=== PATIENT | female | born 2000 | race Caucasian/White ===

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

== ENCOUNTER → 2023-04-25 | Outpatient (CLI) | payer OTHER, SELFPAY ==
[2023-04-25 10:22] LABS: Absolute Lymphocyte Count 1.25 X10^3/uL (0.83-4.51); Absolute Neutrophil Count 5.2 X10^3/uL (2.0-7.7); Basophil# 0.03 X10^3/uL; Basophil% 0.4 % (0-1); Hemoglobin 13.5 g/dL (12.0-15.0); Lymphocyte # 1.25 X10^3/ul (0.83-4.51); Mean Corp Hgb Conc 32.9 g/dL (32-36); Mean Corpuscular Hgb 29.2 pg (27.0-32.0); Mean Corpuscular Volume 88.6 fL (81-99); Monocyte# 0.51 X10^3/uL; Monocyte% 7.3 % (0-10); NRBC Flagged by Analyzer 0 % (0-5); Neutrophil # 5.16 X10^3/uL (2.7-7.7); Neutrophil % 74.2 % (47-70); Platelet Count 212 K/mm3 (150-450); RBC Distribution Width CV 12.3 % (11.6-14.6); RBC Distribution Width SD 39.5 fl (35.1-43.9); Red Blood Count 4.63 M/mm3 (4.2-5.4)
[2023-04-25 10:24] LABS: Erythrocyte Sedimentation Rate < 1 mm/hr (0-30)
[2023-04-25 10:38] LABS: Vitamin B12 929 pg/mL (211-911)
[2023-04-25 12:06] LABS: Amylase 70 U/L (25-115); CRP < 2.90 mg/L (0.0-3.0); Free T3 2.7 pg/mL (2.18-3.98); LDH 152 U/L (84-246); Lipase 33 U/L (13-75); Thyroid Stim Hormone (TSH) 1.42 uIU/mL (0.358-3.74)
[2023-04-28 13:07] LABS: Anti-Centromere B Ab <0.2 AI (0.0-0.9); Anti-Chromatin <0.2 AI (0.0-0.9); Anti-Jo <0.2 AI (0.0-0.9); Anti-Scleroderma-70 AB <0.2 AI (0.0-0.9); Anti-dsDNA Ab 1 IU/mL (0-9); SJOGREN'S Anti-SS-A test < 0.2 AI (0.0-0.9); SJOGREN'S Anti-SS-B test 0.4 AI (0.0-0.9); Smith Ab <0.2 AI (0.0-0.9)
[2023-04-29 15:08] LABS: Alpha-1-Globulins 0.3 g/dL (0.0-0.4); Alpha-2-Globulins 0.7 g/dL (0.4-1.0); Cytoplasmic Ab (C-ANCA) <1:20 titer (Neg:<1:20); Endomysial Antibody IgA Negative (Negative); Gamma Globulin 0.8 g/dL (0.4-1.8); Gastrin, Serum 433 pg/mL (0-115); Immunoglobulin A 108 mg/dL (87-352); Immunoglobulin E 8 IU/mL (6-495); Immunoglobulin G 742 mg/dL (586-1602); Immunoglobulin M 121 mg/dL (26-217); PROEL- TOTAL PROTEIN 6.6 g/dL (6.0-8.5); Perinuclear Ab (P-ANCA) <1:20 titer (Neg:<1:20); t-Transglutaminase IgA <2 U/mL (0-3)
== END | disposition home or self-care (01) ==
LOC: LAB 09:05
PROVIDERS: PCP Family Medicine; Visit Provider Internal Medicine Gastroenterology
DX: K21.9 Gastro-esophageal reflux disease without esophagitis (principal)
CPT/HCPCS: 36415; 82150; 82607; 82746; 82784; 82785; 82941; 83516; 83615; 83690; 84165; 84443; 84481; 85025; 85652; 86140; 86225; 86235; 86255; 86256; 86334

== ENCOUNTER → 2023-05-07 | Outpatient (CLI) | payer OTHER, SELFPAY ==
--- NOTE | 2023-05-07 11:43 | NM_ITS ---
INDICATION: GERD EXAMINATION: NUCLEAR MEDICINE GASTRIC EMPTYING - NM Gastric Emptying Study (solid, liquid or both) TECHNIQUE: Radiopharmaceutical (solid portion of the exam): 1 mCi of Tc99m Sulfur Colloid in oatmeal solid meal. Oral administration. Imaging: Imaging obtained to 1 hour with anterior and posterior acquisition for geometric mean COMPARISON: None. FINDINGS: Immediate passage of some radionucleotide into bowel is seen at 1 minute. Gastric (solid) emptying time: 32% emptying at 60 minute termination of the exam . No distal esophageal reflux is seen during exam. NM/Gastric Emptying Study IMPRESSION: Limited 32% gastric emptying by 60 minutes. Electronically Signed: Gibran Benjamin MD at 8:12 EDT ,
== END | disposition home or self-care (01) ==
LOC: NM 11:42
PROVIDERS: PCP Family Medicine; Referring Provider Internal Medicine Gastroenterology; Visit Provider Internal Medicine Gastroenterology
DX: K21.9 Gastro-esophageal reflux disease without esophagitis (principal)
CPT/HCPCS: 78264; A9541

== ENCOUNTER 2023-06-09 08:06 | Emergency (ER) | payer OTHER, SELFPAY ==
[2023-06-09 08:07] VITALS: BP 141/96; PULSE 102; RESP 16; TEMP 36.6; O2SAT 100; BMI 21.4
--- NOTE | 2023-06-09 08:31 | EDS_ITS ---
HPI History of Present Illness Chief Complaint: Palpitations Informant: patient Onset/Context/Timing Onset: Today Context: Gradual Onset Timing: Continuous Quality: Fluttering, pressure Location: Chest Worsened by: Activity Relieved by: Nothing Narrative Narrative: Patient presents with palpitations that began today. Patient states she feels a fluttering in her chest. Patient states she also has some pressure in her chest. Patient states this is worse with activity. Patient states she got to work today and took her blood pressure. Patient states it was 160/99 at that time. Patient states her heart rate was up to 140 at that time. Patient admits to some lower extremity swelling last night. Patient states this is better today. Patient states her symptoms are worse with any activity. Patient states nothing makes them better. Patient states her temperature at home this morning was 95.8. [facility] Medical History Constipation Elevated transaminase level Environmental allergies Epilepsy GERD (gastroesophageal reflux disease) Headaches, cluster Liver lesion Narcolepsy POTS (postural orthostatic tachycardia syndrome) Home Medications methylphenidate HCl 18 mg tablet,extended release 24 hr (Concerta) 18 mg PO DAILY 05/09/21 [History Last Taken 06/09/23] propranolol 20 mg tablet 20 mg PO TID 05/09/21 [History Last Taken 06/09/23] pantoprazole 40 mg tablet,delayed release 40 mg PO DAILY #30 tabs 05/22/23 [Rx Last Taken 06/09/23] loratadine 10 mg tablet (Allerclear) 10 mg PO QHS 06/09/23 [History Last Taken 06/08/23] Allergy/AdvReac Type Severity Reaction Status Date / Time cefdinir Allergy Intermediate Swelling Verified 06/09/23 08:07 gluten Allergy Upset Verified 06/09/23 08:07 Stomach latex Allergy Hives Verified 06/09/23 08:07 midazolam HCl [From Versed] Allergy Other Verified 06/09/23 08:07 Penicillins Allergy Hives Verified 06/09/23 08:07 Family History Father Migraine Daughter Migraine Mother Migraine Other Anxiety Asthma Hypertension Surgical History History of tonsillectomy and adenoidectomy Social History Smoking Status: Never smoker alcohol intake: never substance use type: does not use what type of physical activity do you participate in: walking and weight training frequency: 3-4 times per week duration: 30-45 minutes/day ROS ROS ED Constitutional Constitutional ED: Denies chills or fever(s) Eyes Eyes: Denies blurry vision or change in vision ENT ENT ED: Denies rhinorrhea or sore throat Cardiovascular Cardiovascular: Denies chest pain or palpitations Respiratory/Chest Respiratory/Chest: Denies cough or dyspnea Gastrointestinal Gastrointestinal: Denies nausea or vomiting Genitourinary Genitourinary ED: Denies dysuria or hematuria Musculoskeletal Musculoskeletal: Reports back pain and neck pain Integumentary Denies abscess or rash Neurologic Neurologic: Reports headache(s); Denies weakness Allergic/Immunologic Allergic/Immunologic ED: Denies mouth swelling or urticaria EXAM Physical Exam Const Vital Signs: 06/09/23 08:07 06/09/23 08:22 06/09/23 10:52 Temperature 98 F Temperature Source Temporal Pulse Rate 102 H 70 Respiratory Rate 16 18 Respiratory Effort Normal Non-Labored Respiratory Pattern Normal Blood Pressure 141/96 H 107/74 Blood Pressure Mean 111 85 Pulse Ox 100 99 Oxygen Delivery Method Nasal Cannula Room Air Positive well nourished and well developed General Appearance ED: well developed and NAD HEENT Reports moist mucous membranes Neck supple and no JVD Chest Wall inspection of chest normal and palpation of chest normal Resp normal respiratory effort and clear to auscultation bilaterally Cardio regular rate and regular rhythm GI non-tender and non-distended Palpation: soft Extremity Extremity Narrative: There is trace edema of the lower extremities bilaterally. There is no calf tenderness noted. General Extremety ED: Yes edema; Negative for tenderness General Extremity: edema Neuro oriented x3, CN's II-XII intact bilaterally and no sensory deficits noted Sensorium / Orientation: alert Motor Exam: strength 5/5 throughout Psych mental status grossly normal MDM MDM MDM Narrative Medical decision making narrative: Differential diagnosis includes cardiac dysrhythmia, cardiac ischemia, electrolyte abnormality, pneumonia, dehydration, viral infection, and anxiety. Patient has a Wells score of 0. I do not feel this is from a pulmonary embolism. EKG will be obtained to assess for cardiac dysrhythmia and cardiac ischemia. Chest x-ray will be obtained to assess for pneumonia and pneumothorax. CBC will be obtained to assess for leukocytosis and anemia. Basic metabolic profile will be obtained to assess for electrolyte abnormality and renal function. Serum hCG will be obtained to assess for . High- sensitivity troponin will be obtained to assess for cardiac ischemia. Urinalysis will be obtained to assess for urinary tract infection. COVID-19 rapid antigen will be obtained to assess for COVID-19 infection. Influenza A and influenza B antigens will be obtained to assess for influenza infection. Lab Data Attestation: I reviewed the patient's lab results. Lab results narrative: CBC was reviewed and was within normal limits. Basic metabolic profile was reviewed and was within normal limits. High-sensitivity troponin was reviewed and was normal at less than 3. Serum hCG was reviewed and was negative. Urinalysis was reviewed. There is no evidence of urinary tract infection or hematuria. COVID-19 rapid antigen was reviewed and was negative. Influenza A and influenza B antigens were reviewed and were negative. Labs: Laboratory Results - last 24 hr 06/09/23 06/09/23 08:32 09:45 WBC 5.2 RBC 4.82 Hgb 13.9 Hct 43.2 MCV 89.6 MCH 28.8 MCHC 32.2 RDW Std Deviation 38.3 RDW Coeff of Sheryl 11.8 Plt Count 188 MPV 9.9 Immature Gran % (Auto) 0.200 Neut % (Auto) 72.3 H Lymph % (Auto) 22.1 [place] % (Auto) 5.2 Eos % (Auto) 0.0 Baso % (Auto) 0.2 Absolute Neuts (auto) 3.7 Absolute Lymphs (auto) 1.14 Nucleated RBC % 0 Sodium 140 Potassium 3.5 Chloride 107 Carbon Dioxide 29.0 Anion Gap 4 L BUN 9 Creatinine 0.88 Estim Creat Clear Calc 80.65 Est GFR (MDRD) Af Amer 105 Est GFR (MDRD) Non-Af 87 BUN/Creatinine Ratio 10.3 Glucose 89 Calcium 9.3 Troponin I High Sens < 3 L Serum , Qual NEGATIVE Urine Color Straw Urine Clarity Clear Urine pH 8.0 Ur Specific [place] 1.010 Urine Protein Negative Urine Glucose (UA) Normal Urine Ketones Negative Urine Occult Blood Negative Urine Nitrite Negative Urine Bilirubin Negative Urine Urobilinogen Normal Ur Leukocyte Esterase Negative Urine RBC 0 SEEN Urine WBC 0 SEEN Ur Squamous Epith Cells 0-5 SEEN Urine Bacteria 0 SEEN Urine Mucus 0 SEEN Radiography Diagnostic Testing: Clinical Impression(s) from Imaging Studies Chest X-Ray 06/09/23 09:00 IMPRESSION: Normal x-ray examination of the chest. Electronically Signed: Himanshu Leavitt MD at 9:30 EST , PA and lateral chest x-ray was obtained. There are 2 views. On my independent interpretation, lung marquez are clear. There is normal cardiac silhouette. Bony thorax is normal. There is no acute process noted. Radiologist also interpreted the x-ray and agrees. EKG Initial EKG: Attestation: I personally reviewed and interpreted this EKG as follows: Interpretation: Sinus Rhythm (92) and No Acute Injury Pattern Comments: EKG was obtained. On my independent interpretation, it showed a normal sinus rhythm with a rate of 92. SC interval, QRS interval, and QTc intervals were all normal. Ackerly was normal. There are no acute ST or T wave changes. Prior EKG tracings: available for review Prior: Unchanged (04/29/2020) Treatment and Re-Evaluation :: Patient was advised of her findings. Patient is feeling better on reevaluation. Patient had no further episodes of palpitations or tachycardia here in the emergency department. Patient was instructed to follow-up with her primary care physician in 5 to 7 days. Patient was instructed to return if worse in any way. Patient understood and was agreeable with the plan. All questions were answered. Discharge Plan Triage Chief Complaint: Palpitations ED Provider: Anthony Franco Dx/Rx/DC Orders Clinical Impression: Heart palpitations Instructions: ED Palpitations Prescriptions: No Action propranolol 20 mg Tablet 20 mg PO TID methylphenidate HCl [Concerta] 18 mg Tablet Extended Release 24hr 18 mg PO DAILY loratadine [Allerclear] 10 mg tablet 10 mg PO QHS pantoprazole 40 mg tablet,delayed release (DR/EC) 40 mg PO DAILY Qty: 30 2RF Primary Care Provider: Catina Alford Referrals: Catina Alford, DO [Primary Care Provider] - 5-7 Days Disposition Disposition: Home, Self Care
[2023-06-09 08:48] LABS: Absolute Lymphocyte Count 1.14 X10^3/uL (0.83-4.51); Absolute Neutrophil Count 3.7 X10^3/uL (2.0-7.7); Basophil# 0.01 X10^3/uL; Basophil% 0.2 % (0-1); Hematocrit 43.2 % (37-47); Hemoglobin 13.9 g/dL (12.0-15.0); Lymphocyte # 1.14 X10^3/ul (0.83-4.51); Lymphocyte % 22.1 % (19-41); Mean Corp Hgb Conc 32.2 g/dL (32-36); Mean Corpuscular Hgb 28.8 pg (27.0-32.0); Mean Corpuscular Volume 89.6 fL (81-99); Mean Platelet Vol. 9.9 fl (6.2-12.0); Monocyte# 0.27 X10^3/uL; Monocyte% 5.2 % (0-10); NRBC Flagged by Analyzer 0 % (0-5); Neutrophil # 3.74 X10^3/uL (2.7-7.7); Neutrophil % 72.3 % (47-70); Platelet Count 188 K/mm3 (150-450); RBC Distribution Width CV 11.8 % (11.6-14.6); RBC Distribution Width SD 38.3 fl (35.1-43.9); Red Blood Count 4.82 M/mm3 (4.2-5.4); White Blood Count 5.2 K/mm3 (4.4-11.0)
--- NOTE | 2023-06-09 09:00 | RAD_ITS ---
STUDY: X-RAY CHEST REASON FOR EXAM: Female, 22 years old. Palpitations TECHNIQUE: PA and lateral views of the chest. COMPARISON: None. FINDINGS: EKG electrodes are seen. The lungs are clear and expanded. There is no demonstrated pleural abnormality. Normal size heart. Normal mediastinum and ayleen. Normal visualized pulmonary arteries. Normal visualized aortic arch and descending thoracic aorta. Normal visualized thoracic spine. Normal visualized ribs, clavicles, and shoulders. There is no demonstrated abnormality of the visualized soft tissue structures of the upper abdomen. RAD/Chest PA and Lateral IMPRESSION: Normal x-ray examination of the chest. Electronically Signed: Himanshu Leavitt MD at 9:30 EST ,
[2023-06-09 09:14] LABS: Anion Gap 4 (5-15); BUN 9 mg/dL (7-18); BUN/Creat Ratio 10.3 RATIO (10-20); Calcium,Total 9.3 mg/dL (8.5-10.1); Chloride 107 mmol/L (98-107); Creatinine, Serum 0.88 mg/dL (0.55-1.02); EST Glomerular Filtration Rate 87 mL/min (>60); Est Glom Filt Rate - Afr Amer 105 mL/min (>60); Estimated Creatinine Clearance 80.65 ml/min; Glucose 89 mg/dL (74-106); Potassium 3.5 mmol/L (3.5-5.1); Sodium Level 140 mmol/L (136-145); Troponin-I HS < 3 pg/mL (3.0-54.0)
[2023-06-09 09:27] LABS: Internal QC Validated? YES +Cl - CLEAR BKGD; Pregnancy, Serum, hCG Quali. NEGATIVE Negative
[2023-06-09 10:05] LABS: Bacteria 0 SEEN /hpf (None Seen); Mucous, Urine 0 SEEN /hpf (<or=2+); Red Blood Cells-Urine 0 SEEN /hpf (0-5); White Blood Cells 0 SEEN /hpf (0-5)
[2023-06-09 10:16] LABS: Color, Urine Straw (Yellow); Glucose, Dipstick Normal (Normal); Ketone-Dipstick Negative (Negative); Leukocyte Esterase-Dipstick Negative /ul (Negative); Nitrite-Dipstick Negative (Negative); Occult Blood-Urine Negative /ul (Negative); Protein-Dipstick Negative (Negative); Urine Bilirubin Dipstick Negative (Negative); Urine Clarity Clear (Clear); Urine Urobilinogen Normal (Normal)
[2023-06-09 10:21] LABS: Squamous Epithelial Cells - UA 0-5 SEEN /hpf (5-10)
[2023-06-09 10:52] VITALS: BP 107/74; PULSE 70; RESP 18; O2SAT 99
[2023-06-09 12:49] VITALS: BP 102/88; PULSE 83; RESP 18; O2SAT 98
== END 2023-06-09 12:57 | disposition home or self-care (01) ==
PROVIDERS: Emergency Provider Emergency Medicine; PCP Family Medicine; Visit Provider Emergency Medicine
DX: R00.2 Palpitations (principal); R51.9 Headache, unspecified; M54.9 Dorsalgia, unspecified
CPT/HCPCS: 71046; 80048; 81001; 84484; 84703; 85025; 87428; 93005; 99283; J7030

== ENCOUNTER → 2023-08-26 | Outpatient (CLI) | payer OTHER, SELFPAY ==
--- NOTE | 2023-08-26 15:30 | RAD_ITS ---
STUDY: X-RAY - ABDOMEN/PELVIS REASON FOR EXAM: Female, 22 years old. Gastroparesis TECHNIQUE: Single AP view of the abdomen / pelvis. COMPARISON: None. FINDINGS: Normal visualized lung bases. There is an abundance of fecal material throughout the colon. The visualized liver, spleen and kidneys are grossly normal in size and morphology. Normal soft tissue structures. Normal visualized osseous structures. RAD/Abdomen Single View IMPRESSION: Large amount of fecal material seen throughout the colon. Electronically Signed: Himanshu Leavitt MD at 15:44 EST ,
== END | disposition home or self-care (01) ==
PROVIDERS: PCP Family Medicine; Referring Provider Internal Medicine Gastroenterology; Visit Provider Internal Medicine Gastroenterology
DX: K31.84 Gastroparesis (principal)
CPT/HCPCS: 74018

== ENCOUNTER 2023-08-27 19:41 | Emergency (ER) | payer OTHER, SELFPAY ==
[2023-08-27 19:44] VITALS: BP 131/89; PULSE 119; RESP 18; TEMP 37; O2SAT 100; BMI 21.7
[2023-08-27 20:01] LABS: Absolute Lymphocyte Count 1.67 X10^3/uL (0.83-4.51); Absolute Neutrophil Count 6.8 X10^3/uL (2.0-7.7); Basophil# 0.03 X10^3/uL; Basophil% 0.3 % (0-1); Hemoglobin 13.9 g/dL (12.0-15.0); Lymphocyte # 1.67 X10^3/ul (0.83-4.51); Lymphocyte % 18.5 % (19-41); Mean Corp Hgb Conc 33.1 g/dL (32-36); Mean Corpuscular Hgb 28.8 pg (27.0-32.0); Mean Corpuscular Volume 87.1 fL (81-99); Mean Platelet Vol. 9.6 fl (6.2-12.0); Monocyte% 5.5 % (0-10); NRBC Flagged by Analyzer 0 % (0-5); Neutrophil # 6.82 X10^3/uL (2.7-7.7); Neutrophil % 75.5 % (47-70); Platelet Count 205 K/mm3 (150-450); RBC Distribution Width CV 11.8 % (11.6-14.6); RBC Distribution Width SD 37.9 fl (35.1-43.9); Red Blood Count 4.82 M/mm3 (4.2-5.4)
[2023-08-27 20:08] LABS: Internal QC Validated? YES +Cl - CLEAR BKGD; Pregnancy, Serum, hCG Quali. NEGATIVE Negative
[2023-08-27 20:16] LABS: ALB/GLOB Ratio 1.4 RATIO (0.9-2.4); AST(SGOT) 19 U/L (15-37); Alanine Aminotransfer ALT/SGPT 18 U/L (13-56); Alkaline Phosphatase 46 U/L (45-117); Anion Gap 3 (5-15); BUN 9 mg/dL (7-18); BUN/Creat Ratio 12.1 RATIO (10-20); Calcium,Total 8.9 mg/dL (8.5-10.1); Chloride 110 mmol/L (98-107); Creatinine, Serum 0.75 mg/dL (0.55-1.02); EST Glomerular Filtration Rate 104 mL/min (>60); Est Glom Filt Rate - Afr Amer 126 mL/min (>60); Estimated Creatinine Clearance 94.63 ml/min; Globulin 2.9 g/dL (2.2-4.2); Glucose 123 mg/dL (74-106); Potassium 3.1 mmol/L (3.5-5.1); Protein, Total 6.9 g/dL (6.4-8.2); Sodium Level 141 mmol/L (136-145)
[2023-08-27 21:34] LABS: Bacteria 0 SEEN /hpf (None Seen); Mucous, Urine 0 SEEN /hpf (<or=2+); Squamous Epithelial Cells - UA 0 SEEN /hpf (5-10); White Blood Cells 0 SEEN /hpf (0-5)
[2023-08-27 21:49] LABS: Color, Urine Yellow (Yellow); Glucose, Dipstick Normal (Normal); Ketone-Dipstick Negative (Negative); Leukocyte Esterase-Dipstick Negative /ul (Negative); Nitrite-Dipstick Negative (Negative); Occult Blood-Urine 250 /ul (Negative); Protein-Dipstick 15 mg/dl (Negative); Urine Bilirubin Dipstick Negative (Negative); Urine Clarity Clear (Clear); Urine Urobilinogen Normal (Normal)
--- NOTE | 2023-08-27 21:59 | ED.VIS.GI ---
HPI HPI - GI History of Present Illness Chief Complaint: Abd Pain Nausea/Vomiting/Emesis GI Symptom: Positive for Nausea and Vomiting Onset: Today Severity: Mild Narrative Narrative: 22-year-old female past medical history of gastroparesis, seen by Dr. Lawrence, presents with her mother because of right upper quadrant abdominal pain that she has had for the last 1.5 weeks. She states that she had been dealing with the pain and it was very similar to when she was admitted at [facility] with either a bowel obstruction or an ileus. She states that she called Dr. Lawrenec's office, and yesterday had a x-ray performed which may have showed a lot of stool in her colon. She had not been vomiting until tonight where she vomited once, and it was her lunch that she ate 8 hours ago. She denied any blood in her emesis. She states she has been having bowel movements. No prior abdominal surgeries. She is still nauseated. [facility] Medical History Constipation Elevated transaminase level Environmental allergies Epilepsy GERD (gastroesophageal reflux disease) Headaches, cluster Liver lesion Narcolepsy POTS (postural orthostatic tachycardia syndrome) Home Medications methylphenidate HCl 18 mg tablet,extended release 24 hr (Concerta) 18 mg PO DAILY 05/09/21 [History Last Taken 06/09/23] propranolol 20 mg tablet 20 mg PO TID 05/09/21 [History Last Taken 06/09/23] pantoprazole 40 mg tablet,delayed release 40 mg PO DAILY #30 tabs 05/22/23 [Rx Last Taken 06/09/23] loratadine 10 mg tablet (Allerclear) 10 mg PO QHS 06/09/23 [History Last Taken 06/08/23] dicyclomine 20 mg tablet 20 mg PO BID #20 tabs 08/27/23 [Rx Last Taken Unknown] linaclotide 145 mcg capsule (Linzess) 145 mcg PO DAILY #30 caps 08/27/23 [Rx Last Taken Unknown] metoclopramide HCl 5 mg tablet (Reglan) 5 mg PO DAILY PRN nausea and vomiting #10 tabs 08/27/23 [Rx Last Taken Unknown] Allergy/AdvReac Type Severity Reaction Status Date / Time cefdinir Allergy Intermediate Swelling Verified 08/27/23 19:42 gluten Allergy Upset Verified 08/27/23 19:42 Stomach latex Allergy Hives Verified 08/27/23 19:42 midazolam HCl [From Versed] Allergy Other Verified 08/27/23 19:42 Penicillins Allergy Hives Verified 08/27/23 19:42 Family History Father Migraine Daughter Migraine Mother Migraine Other Anxiety Asthma Hypertension Surgical History History of tonsillectomy and adenoidectomy Social History Smoking Status: Never smoker alcohol intake: never substance use type: does not use what type of physical activity do you participate in: walking and weight training frequency: 3-4 times per week duration: 30-45 minutes/day ROS ROS ED ROS Narrative Constitutional: No fever, no chills. HEENT: No sore throat. No neck pain. No loss of vision. No rhinorrhea. Cardiovascular: No chest pain. No palpitations. No pedal edema. Respiratory: No cough, no shortness of breath. Abdominal: Right upper quadrant abdominal pain. Positive nausea and 1 episode of vomiting, nonbloody. Regular bowel movements, no diarrhea. Genitourinary: No dysuria. No hematuria. Musculoskeletal: No myalgias. No arthralgias. Neurologic: No headaches. No dizziness. No lightheadedness. Skin: No rash. No change in color. Psychiatric: No depression. No anxiety. EXAM Physical Exam Narrative Exam Narrative: Afebrile. Vital signs noted. HEENT: Normocephalic. Atraumatic. PERRL, EOMI. Neck soft and supple. No point tenderness or step off. Cardiovascular: Regular rate and rhythm. No murmurs, rubs, or gallops appreciated. Respiratory: No tachypnea. Lungs clear to auscultation bilaterally. Gastrointestinal: Abdomen soft, mild tenderness palpation right upper quadrant, negative Slaughter sign. With normoactive bowel sounds. No rebound or guarding. Neurological: Awake. Alert. Nonfocal, nonlateralizing. Skin: No rash. Normal color. No pallor. Musculoskeletal: No pedal edema. Full range of motion extremities. Const Vital Signs: 08/27/23 19:44 08/27/23 23:40 Temperature 98.6 F Temperature Source Temporal Pulse Rate 119 H 79 Respiratory Rate 18 Blood Pressure 131/89 H 101/62 Blood Pressure Mean 103 75 Pulse Ox 100 Oxygen Delivery Method Room Air MDM MDM MDM Narrative Medical decision making narrative: Nursing protocol laboratories were entered. The differential diagnosis is gastroparesis versus ileus versus bowel obstruction versus pancreatitis versus cholecystitis. Is not febrile here. I have lower suspicion for bowel obstruction as she has not had prior abdominal surgeries. I reviewed her laboratory work and she has normal white count of 9.0, hemoglobin 13.9 and normal, hematocrit 42.0, platelet count normal at 205. Electrolyte panel does show mild hypokalemia at 3.1. BUN of 9 and creatinine normal at 0.75. LFTs are normal with an AST of 19 and ALT of 18 and alk phos 46. Serum is negative. Urinalysis is negative for infection with negative nitrites and negative leukocyte esterase. I do not feel antibiotics are indicated. She had continued nausea so she will be administered Zofran 4 mg intravenously. Will start potassium replacement intravenously until CT imaging has returned. I reviewed the CT report, and there is no evidence of an acute obstruction. She has constipation. No acute appendicitis. I discussed patient with her detail assembler, Dr. Lawrence, who wishes her to have Reglan and Bentyl. She did refuse Bentyl here. She was given Tylenol instead. She states that she called the nurse who wanted her to do a bowel cleanse and start Linzess. I also feel that this is acceptable. I feel she can be discharged after her infusion of potassium. She will follow-up with gastroenterology as an outpatient. Disposition is discharged home in stable condition. History & Record Review Discussion w/independent historian: Patient and Family Lab Data Attestation: I reviewed the patient's lab results. Labs: Laboratory Results - last 24 hr 08/27/23 08/27/23 20:00 21:20 WBC 9.0 RBC 4.82 Hgb 13.9 Hct 42.0 MCV 87.1 MCH 28.8 MCHC 33.1 RDW Std Deviation 37.9 RDW Coeff of Sheryl 11.8 Plt Count 205 MPV 9.6 Immature Gran % (Auto) 0.200 Neut % (Auto) 75.5 H Lymph % (Auto) 18.5 L [place] % (Auto) 5.5 Eos % (Auto) 0.0 Baso % (Auto) 0.3 Absolute Neuts (auto) 6.8 Absolute Lymphs (auto) 1.67 Nucleated RBC % 0 Sodium 141 Potassium 3.1 L Chloride 110 H Carbon Dioxide 28.0 Anion Gap 3 L BUN 9 Creatinine 0.75 Estim Creat Clear Calc 94.63 Est GFR (MDRD) Af Amer 126 Est GFR (MDRD) Non-Af 104 BUN/Creatinine Ratio 12.1 Glucose 123 H Calcium 8.9 Total Bilirubin 0.30 AST 19 ALT 18 Alkaline Phosphatase 46 Total Protein 6.9 Albumin 4.0 Globulin 2.9 Albumin/Globulin Ratio 1.4 Lipase 38 Serum , Qual NEGATIVE Urine Color Yellow Urine Clarity Clear Urine pH 7.0 Ur Specific [place] 1.010 Urine Protein 15 H Urine Glucose (UA) Normal Urine Ketones Negative Urine Occult Blood 250 H Urine Nitrite Negative Urine Bilirubin Negative Urine Urobilinogen Normal Ur Leukocyte Esterase Negative Urine RBC 0-5 SEEN Urine WBC 0 SEEN Ur Squamous Epith Cells 0 SEEN Urine Bacteria 0 SEEN Urine Mucus 0 SEEN Radiography Diagnostic Testing: Clinical Impression(s) from Imaging Studies Abdomen/Pelvis CT 08/27/23 22:10 IMPRESSION: Possible mild constipation. No acute appendicitis or bowel obstruction. Liver lesion within the left liver lobe junction with the caudate lobe measuring 3.8 x 2.8 x 4.0 cm most compatible with liver hemangioma. Remainder of abdominal viscera unremarkable. Electronically Signed: Rosa Kim MD at 22:55 EST Reading Location ID and State: [address] [place] [address] , Service support , Discharge Plan Triage Chief Complaint: Abd Pain ED Provider: Estiven Mayorga Dx/Rx/DC Orders Clinical Impression: Abdominal pain, Hypokalemia, Constipation Instructions: ED Abdominal Pain Unkn Cause Fem, ED Constipation (Adult), ED Hypokalemia Prescriptions: New dicyclomine 20 mg tablet 20 mg PO BID Qty: 20 0RF metoclopramide HCl [Reglan] 5 mg tablet 5 mg PO DAILY PRN (Reason: nausea and vomiting) Qty: 10 0RF No Action propranolol 20 mg Tablet 20 mg PO TID methylphenidate HCl [Concerta] 18 mg Tablet Extended Release 24hr 18 mg PO DAILY loratadine [Allerclear] 10 mg tablet 10 mg PO QHS pantoprazole 40 mg tablet,delayed release (DR/EC) 40 mg PO DAILY Qty: 30 2RF Linzess 145 mcg capsule 145 mcg PO DAILY Qty: 30 0RF Primary Care Provider: Catina Alford Referrals: Catina Alford DO [Primary Care Provider] - Friend,DO Tim [Med Staff - Active Staff] - As soon as possible Disposition Disposition: Home, Self Care
[2023-08-27] MEDS: Ondansetron 4 MG/2 ML Vial IV (22:00)
[2023-08-27 22:01] LABS: Red Blood Cells-Urine 0-5 SEEN /hpf (0-5)
--- NOTE | 2023-08-27 22:10 | CT_ITS ---
STUDY: CT ABDOMEN AND PELVIS WITH CONTRAST REASON FOR EXAM: Female, 22 years old. abdominal pain RADIATION DOSAGE (If Supplied By Facility): CTDIvol = ( 7.64 ) mGy, DLP = ( 283.61 ) mGycm TECHNIQUE: Transaxial images were obtained from the dome of the diaphragm to the symphysis pubis without oral contrast. IV 75mL Isovue-[id number] was administered. Sagittal and coronal images were reconstructed. Individualized dose optimization techniques were used for this CT. COMPARISON: None. FINDINGS: The visualized lung bases are unremarkable. The visualized portions of the heart are within normal limits. Identified at the level of the left liver lobe junction with the caudate lobe measuring 3.8 x 2.8 x 4.0 cm. There is peripheral nodular enhancement, findings favoring liver hemangioma. Otherwise normal liver. Normal gallbladder and extrahepatic biliary system. Normal spleen. Normal pancreas. Normal bilateral adrenal glands. Normal right kidney. Normal left kidney. Normal visualized stomach. Normal small intestine. At or to abundant fecal debris within the colon suggestive of constipation. The appendix is visualized and appears normal. Normal abdominal aorta. Normal inferior vena cava. Normal retroperitoneum. Normal urinary bladder. Anteverted uterus. Normal abdominal wall. Normal osseous structures. CT/Abdomen/Pelvis W IV Cont ONLY IMPRESSION: Possible mild constipation. No acute appendicitis or bowel obstruction. Liver lesion within the left liver lobe junction with the caudate lobe measuring 3.8 x 2.8 x 4.0 cm most compatible with liver hemangioma. Remainder of abdominal viscera unremarkable. Electronically Signed: Rosa Kim MD at 22:55 [facility] ,
[2023-08-27] MEDS: 0.9% Normal Saline (1000mL) 1,000 ML 999 ML IV (22:24)
--- OUTSIDE RECORDS SUMMARY | 2023-08-27 22:31 | XMS RPT_ITS | CCD ---
Author Name Unknown Address [email or web address] [place] [address] Organization [facility] Care Team Providers Care Ecommerce Project Manager Name Role Phone TOMER PIÑA K Unavailable Unavailable ANSELMO RODRIGUEZ Unavailable Unavailable EILEEN GUTIÉRREZ Unavailable Unavailable AYANATOMER IBARRA K Unavailable Unavailable EILEEN GUTIÉRREZ Unavailable Unavailable GUTIÉRREZEILEEN Narayanan Unavailable Unavailable UPADHYAYULA, JANEE Unavailable Unavailable GUTIÉRREZEILEEN Narayanan Unavailable Unavailable GUTIÉRREZEILEEN Narayanan Unavailable Unavailable UPADHYAYULA, JANEE Unavailable Unavailable UPADHYAYULA, JANEE Unavailable Unavailable GUTIÉRREZEILEEN Narayanan Unavailable Unavailable AYANATOMER IBARRA Unavailable Unavailable GUTIÉRREZEILEEN Narayanan Unavailable Unavailable GUTIÉRREZEILEEN Narayanan Unavailable Unavailable UPADHYAYULA, JANEE Unavailable Unavailable UPADHYAYULA, JANEE Unavailable Unavailable GUTIÉRREZEILEEN Narayanan Unavailable Unavailable UPADHYAYULA, JANEE Unavailable Unavailable UPADHYAYULA, JANEE Unavailable Unavailable GUTIÉRREZEILEEN Narayanan Unavailable Unavailable AYANA, TOMER K Unavailable Unavailable GUTIÉRREZEILEEN Narayanan Unavailable Unavailable GUTIÉRREZEILEEN Narayanan Unavailable Unavailable GUTIÉRREZEILEEN Narayanan Unavailable Unavailable WINDY, CHERELLE Unavailable Unavailable Albert Hilario MD Unavailable Eileen Gutiérrez DO Primary Care Provider [phone] Eileen Gutiérrez DO Primary Care Provider Eileen Gutiérrez DO Primary Care Provider [phone] EILEEN GUTIÉRREZ Primary Care Unavailable SHYANNE MUÑOZ Referring Unavailable BERTHA REID Attending Unavailable JONATHAN FRANKLIN Consulting Unavailable HAIELY MITCHELL Attending Unavailable CHIQUITA STAHL Admitting Unavailable EILEEN GUTIÉRREZ Primary Care Unavailable EILEEN GUTIÉRREZ Primary Care Unavailable Junior PANDYA, Lisa Unavailable Unavailab le GUTIÉRREZ, REINA Primary Care Unavailable CLIFFORD VALENZUELA Admitting Unavailabl e NICOLAS, CLIFFORD PRICE Attending Unavailabl e NICOLASCLIFFORD Referring Unavailabl e NICOLAS, CLIFFORD PRICE Attending Unavailabl e GUTIÉRREZ, REINA Primary Care Unavailable GUTIÉRREZ, REINA Primary Care Unavailable NICOLAS, CLIFFORD PRICE Attending Unavailabl e GUTIÉRREZ, REINA Primary Care Unavailable CLIFFORD VALENZUELA Referring Unavailabl e GUTIÉRREZ, REINA Primary Care Unavailable CLIFFORD VALENZUELA Attending Unavailabl e GUTIÉRREZ, REINA Primary Care Unavailable NICOLAS, CLIFFORD PRICE Attending Unavailabl e GUTIÉRREZ, REINA Primary Care Unavailable NICOLASCLIFFORD Attending Unavailabl e NICOLAS, CLIFFORD PRICE Attending Unavailabl e GUTIÉRREZ, REINA Primary Care Unavailable NICOLAS, CLIFFORD PRICE Attending Unavailabl e GUTIÉRREZ, REINA Primary Care Unavailable NICOLAS, CLIFFORD PRICE Attending Unavailabl e GUTIÉRREZ, REINA Primary Care Unavailable GUTIÉRREZ, REINA Primary Care Unavailable GURDEEP CHRISTINE Attending Unavailable GUTIÉRREZ, REINA Primary Care Unavailable HAILEY MITCHELL Referring Unavailable GUTIÉRREZ, REINA Attending Unavailable GUTIÉRREZ, REINA Primary Care Unavailable ROSALES SANDERS Attending Unavailable GUTIÉRREZ, REINA Primary Care Unavailable BECKIE JUAREZ Attending Unavailable SUMANTHZORAN Attending Unavailable GUTIÉRREZ, REINA Primary Care Unavailable APOLINAR LARES Referring Unavailable GUTIÉRREZ, REINA Primary Care Unavailable GUTIÉRREZ, REINA Primary Care Unavailable GUTIÉRREZ, REINA Primary Care Unavailable VANNA ALEMAN Attending Unavailable GUTIÉRREZ, REINA Primary Care Unavailable SUMANTHZORAN Attending Unavailable Allergies Allergy Classification Reported Allergen(s) Allergy Type Date of Onset Reaction(s) Facility (20 sources) Latex; Translations: [LATEX] Propensity to adverse reactions to drug (disorder) 03-28-20 07 Swelling [facility] (1 source) Midazolam; Translations: [MIDAZOLAM] Drug Allergy 04-06-20 15 AOF [facility] (20 sources) Penicillins; Translations: [PENICILLINS] Propensity to adverse reactions to drug (disorder) 07-23-19 06 Rash [facility] (1 source) House dust mite; Translations: [DUST MITES] allergy to substance 02-03-20 [facility] Work Phone: (1 source) [facility] drug allergy 02-03-20 19 [facility] Work Phone: (1 source) Midazolam Drug Allergy 02-03-20 19 [facility] Work Phone: (4 sources) Midazolam; Translations: [MIDAZOLAM HCL] Drug Allergy 02-03-20 12 change in mental status [facility] Work Phone: (1 source) Mold Extract; Translations: [MOLD] Drug Allergy 02-03-20 19 [facility] Work Phone: (1 source) Penicillin Drug Allergy 03-14-20 15 hives [facility] Work Phone: (1 source) PLANT POLLENS; Translations: [PLANT POLLENS] allergy to substance 02-03-20 [facility] Work Phone: (20 sources) cefdinir; Translations: [CEFDINIR] Drug Allergy 08-31-19 21 Swelling [facility] (20 sources) Midazolam Drug Allergy 02-03-20 12 Mental Status Change [facility] (20 sources) Wheat gluten extract; Translations: [GLUTEN] Drug Allergy 04-12-20 20 GI Upset [facility] (20 sources) Acetaminophen / HYDROcodone; Translations: [HYDROCODONE-ACET AMINOPHEN] Drug Allergy 05-29-20 22 Swelling [facility] (20 sources) Prochlorperazine; Translations: [PROCHLORPERAZINE ] Drug Allergy 11-05-19 23 Intolerance [facility] Medications Current Medications Medication Drug Class(es) Dates Sig (Normalized) Sig (Original) hydrocortisone 25 mg/ml topical cream (4 sources) Corticosteroid Start: 11-28-2022 End: 12-12-2022 hydrocortisone 2.5 % cream Indications: Seborrheic dermatitis Apply 1 application to affected area once daily for 14 days. TO AFFECTED AREA. 20 g 0 11/28/2022 12/12/2022 Active Completed/Discontinued Medications Medication Drug Class(es) Dates Sig (Normalized) Sig (Original) acetaminophen 325 mg oral tablet (20 sources) Start: 04-12-2020 take 2 tablets by mouth every six hours as needed acetaminophen (TYLENOL) 325 mg tablet Take 2 tablets by mouth every 6 hours as needed. 0 04/12/2020 Active Problems Active Problems Problem Classification Problem Date Documented Da te Episodic/Chronic Acquired foot deformities (2 sources) Finding of joint of toe; Translations: [Acquired left mallet toe] Onset: 9 02-05-2019 Episodic Asthma (20 sources) Intermittent asthma well controlled; Translations: [Mild intermittent asthma, uncomplicated] Onset: 3 Chronic Cardiac dysrhythmias (20 sources) Postural orthostatic tachycardia syndrome ; Translations: [Other specified cardiac arrhythmias] Onset: 3 Chronic Coagulation and hemorrhagic disorders (1 source) Easy bruising; Translations: [Spontaneous ecchymoses] Episodic Epilepsy; convulsions (20 sources) Epilepsy, not refractory; Translations: [Epilepsy, unspecified, not intractable, without status epilepticus] Onset: 3 Chronic Esophageal disorders (20 sources) Gastroesophageal reflux disease; Translations: [Gastro-esophageal reflux disease without esophagitis] Onset: 3 Chronic Gastritis and duodenitis (17 sources) Chronic superficial gastritis; Translations: [Chronic superficial gastritis without bleeding] Onset: 3 11-04-2022 Chronic Headache; including migraine (20 sources) Migraine without aura, not refractory ; Translations: [Migraine without aura, not intractable, without status migrainosus] Onset: 0 05-11-2020 Chronic Immunizations and screening for infectious disease (6 sources) Patient encounter status; Translations: [Encounter for screening for respiratory tuberculosis] Episodic Other congenital anomalies (1 source) Calcaneonavicular bar; 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] Onset: 5 04-21-2015 Chronic Other congenital anomalies (20 sources) Tarsal coalitions; 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] Onset: 5 12-29-2014 Chronic Other connective tissue disease (1 source) Pain in both feet; Translations: [Pain in right foot] Episodic Other connective tissue disease (1 source) Pain of toe of left foot; Translations: [Pain in left toe(s)] Episodic Other connective tissue disease (2 sources) Pain of toe of right foot; Translations: [Pain in right toe(s)] Episodic Other gastrointestinal disorders (1 source) Constipation, unspecified; Translations: [Constipation, unspecified constipation type] Onset: 3 Episodic Other inflammatory condition of skin (1 source) Perioral dermatitis; Translations: [Perioral dermatitis] Chronic Other inflammatory condition of skin (1 source) Seborrheic dermatitis; Translations: [Seborrheic dermatitis, unspecified] Episodic Other liver diseases (1 source) Liver disease, unspecified; Translations: [Other sequelae of chronic liver disease] Onset: 3 Chronic Other lower respiratory disease (1 source) Wheezing; Translations: [Wheezing] Episodic Other nervous system disorders (20 sources) Narcolepsy without cataplexy ; Translations: [Narcolepsy without cataplexy] Onset: 7 07-15-2016 Chronic Other nervous system disorders (1 source) Narcolepsy without cataplexy; Translations: [Narcolepsy without cataplexy] Onset: 0 Chronic Other skin disorders (3 sources) Bilateral ingrowing nail of toe of feet; Translations: [Ingrowing nail] Episodic Other skin disorders (2 sources) Ingrowing nail; Translations: [Ingrowing nail] Episodic Other skin disorders (1 source) Dystrophia unguium; Translations: [Nail dystrophy] 05-02-2023 Episodic Other skin disorders (2 sources) Ingrowing nail; Translations: [Ingrown toenail of both feet] Onset: 3 Episodic Other upper respiratory disease (20 sources) Allergic rhinitis due to pollen; Translations: [Allergic rhinitis due to pollen] Onset: 0 04-24-2020 Chronic Residual codes; unclassified (1 source) Influenza-like symptoms; Translations: [Other general symptoms and signs] Episodic Residual codes; unclassified (5 sources) Postoperative state; Translations: [Other specified postprocedural states] Episodic Screening and history of mental health and substance abuse codes (1 source) Depression screening negative; Translations: [Encounter for screening for depression] Episodic Unclassified (1 source) Transaminitis; Translations: [Transaminitis] Onset: 3 Unclassified (1 source) POTS (postural orthostatic tachycardia syndrome); Translations: [POTS (postural orthostatic tachycardia syndrome)] Onset: 3 Unclassified (1 source) Established Patient Onset: 3 Past or Other Problems Problem Classification Problem Date Documented Da te Episodic/Chronic Abdominal pain (4 sources) Right upper quadrant pain; Translations: [Right upper quadrant pain] Onset: 10-30-2022 11-03-2022 Episodic Acquired foot deformities (8 sources) Finding of joint of toe; Translations: [Acquired right mallet toe] Onset: 02-05-2019 02-05-2019 Episodic Allergic reactions (20 sources) Allergy to penicillin; Translations: [Allergy status to penicillin] Onset: 04-24-2020 04-24-2020 Episodic Complications of surgical procedures or medical care (20 sources) Delayed recovery from general anesthesia; Translations: [Other complications of anesthesia, subsequent encounter] Onset: 10-18-2022 Episodic E Codes: Adverse effects of medical drugs (20 sources) Beta lactam adverse reaction; Translations: [Adverse effect of cephalosporins and other beta-lactam antibiotics, initial encounter] Onset: 04-24-2020 04-24-2020 Episodic Gastritis and duodenitis (1 source) Acute gastritis without bleeding; Translations: [Acute gastritis without hemorrhage, unspecified gastritis type] Onset: 12-16-2022 Episodic Nausea and vomiting (3 sources) Nausea and vomiting; Translations: [Nausea with vomiting, unspecified] Onset: 07-03-2011 11-02-2022 Episodic Other circulatory disease (20 sources) Elevated blood-pressure reading without diagnosis of hypertension; Translations: [Elevated blood-pressure reading, without diagnosis of hypertension] Onset: 05-11-2020 05-11-2020 Episodic Other circulatory disease (1 source) Elevated blood-pressure reading, without diagnosis of hypertension; Translations: [Elevated blood pressure reading without diagnosis of hypertension] Onset: 05-11-2020 Episodic Other connective tissue disease (1 source) Rupture of gastrocnemius tendon; Translations: [Strain of other muscle(s) and tendon(s) of posterior muscle group at lower leg level, right leg, initial encounter] Onset: 02-26-2018 02-26-2018 Episodic Other connective tissue disease (1 source) Foot pain; Translations: [Pain in right foot] Onset: 04-24-2016 04-24-2016 Episodic Other connective tissue disease (1 source) Pain in right toe(s); Translations: [Pain in toe of right foot] Onset: 09-04-2022 Episodic Other gastrointestinal disorders (17 sources) Drug-induced constipation; Translations: [Drug induced constipation] Onset: 10-31-2022 11-02-2022 Episodic Other gastrointestinal disorders (1 source) Other constipation; Translations: [Other constipation] Onset: 12-16-2022 Episodic Other screening for suspected conditions (not mental disorders or infectious disease) (1 source) Other specified abnormal findings of blood chemistry; Translations: [Elevated platelet count] Onset: 12-16-2022 Episodic Other upper respiratory infections (1 source) Acute sinusitis, unspecified; Translations: [Acute sinusitis, recurrence not specified, unspecified location] Onset: 08-29-2022 Episodic Ovarian cyst (18 sources) Cyst of right ovary; Translations: [Unspecified ovarian cyst, right side] Onset: 10-30-2022 11-02-2022 Episodic Residual codes; unclassified (1 source) Other specified postprocedural states; Translations: [Post-operative state] Onset: 12-04-2022 Episodic Sprains and strains (1 source) Sprain of foot; Translations: [Unspecified sprain of right foot, initial encounter] Onset: 07-20-2015 07-20-2015 Episodic Unclassified (1 source) Problem Results Test Name Value Interpretation Reference Range Facil ity Vital Signs Date Time Vital Sign Value Performing Clinician Facility 05-23-2023 14:41-0500 Body height 157.5 cm Clifford Nicolas DPM Work Phone: [facility] 05-23-2023 14:41-0500 Body weight 52.16 kg Clifford Nicolas DPM Work Phone: [facility] 05-23-2023 14:41-0500 Respiratory rate 20 /min Clifford Nicolas DPM Work Phone: [facility] 04-30-2023 09:58-0400 Body height 157.5 cm Clifford Nicolas DPM Work Phone: [facility] 04-30-2023 09:58-0400 Body weight 52.16 kg Clifford Nicolas DPM Work Phone: [facility] 04-30-2023 09:58-0400 Respiratory rate 18 /min Clifford Nicolas DPM Work Phone: [facility] 01-15-2023 08:14-0400 Body height 157.5 cm Clifford Nicolas DPM Work Phone: [facility] 01-15-2023 08:14-0400 Body weight 52.16 kg Clifford Nicolas DPM Work Phone: [facility] 01-15-2023 08:14-0400 Respiratory rate 16 /min Clifford Nicolas DPM Work Phone: [facility] 12-04-2022 08:42-0400 Body height 157.5 cm Clifford Nicolas DPM Work Phone: [facility] 12-04-2022 08:42-0400 Body weight 52.16 kg Clifford Nicolas DPM Work Phone: [facility] 12-04-2022 08:42-0400 Respiratory rate 16 /min Clifford Nicolas DPM Work Phone: [facility] 11-28-2022 07:45-0400 Body temperature 97.59 [degF] Gurdeep Christine MD Work Phone: [facility] 11-28-2022 07:45-0400 Body weight 52.28 kg Gurdeep Christine MD Work Phone: [facility] 11-28-2022 07:45-0400 Heart rate 70 /min Gurdeep Christine MD Work Phone: [facility] 11-28-2022 07:45-0400 Respiratory rate 18 /min Gurdeep Christine MD Work Phone: [facility] 10-25-2022 10:45-0400 Body temperature 97.3 [degF] Clifford Nicolas DPM Work Phone: [facility] 10-25-2022 10:45-0400 Diastolic blood pressure 75 mm[Hg] Clifford Nicolas DPM Work Phone: [facility] 10-25-2022 10:45-0400 Heart rate 79 /min Clifford Nicolas DPM Work Phone: [facility] 10-25-2022 10:45-0400 Respiratory rate 23 /min Clifford Nicolas DPM Work Phone: [facility] 10-25-2022 10:45-0400 SaO2% (BldA) [Mass fraction] 100 % Clifford Nicolas DPM Work Phone: [facility] 10-25-2022 10:45-0400 Systolic blood pressure 111 mm[Hg] Clifford Nicolas DPM Work Phone: [facility] 10-25-2022 07:12-0400 Body height 157.5 cm Clifford Nicolas DPM Work Phone: [facility] 10-25-2022 07:12-0400 Body weight 54.43 kg Clifford Nicolas DPM Work Phone: [facility] 10-18-2022 09:36-0400 Body height 157.5 cm Pst 1 [facility] 10-18-2022 09:36-0400 Body temperature 98.8 [degF] Pst 1 [facility] 10-18-2022 09:36-0400 Body weight 54.43 kg Pst 1 [facility] 10-18-2022 09:36-0400 Diastolic blood pressure 82 mm[Hg] Pst 1 [facility] 10-18-2022 09:36-0400 Heart rate 87 /min Pst 1 [facility] 10-18-2022 09:36-0400 Respiratory rate 18 /min Pst 1 [facility] 10-18-2022 09:36-0400 SaO2% (BldA) [Mass fraction] 100 % Pst 1 [facility] 10-18-2022 09:36-0400 Systolic blood pressure 114 mm[Hg] Pst 1 [facility] 09-04-2022 08:12-0500 Body height 157.5 cm Clifford Nicolas DPM Work Phone: [facility] 09-04-2022 08:12-0500 Body weight 55.34 kg Clifford Nicolas DPM Work Phone: [facility] 09-04-2022 08:12-0500 Respiratory rate 20 /min Clifford Nicolas DPM Work Phone: [facility] 08-09-2022 14:41-0500 Body height 157.5 cm Clifford Nicolas DPM Work Phone: [facility] 08-09-2022 14:41-0500 Body weight 54.43 kg Clifford Nicolas DPM Work Phone: [facility] 08-09-2022 14:41-0500 Respiratory rate 18 /min Clifford Nicolas DPM Work Phone: [facility] 07-18-2022 08:51-0500 Body height 157.5 cm Clifford Nicolas DPM Work Phone: [facility] 07-18-2022 08:51-0500 Body temperature 98.2 [degF] Clifford Nicolas DPM Work Phone: [facility] 07-18-2022 08:51-0500 Body weight 54.43 kg Clifford Nicolas DPM Work Phone: [facility] 06-05-2022 09:20-0500 Body height 157.5 cm Clifford Nicolas DPM Work Phone: [facility] 06-05-2022 09:20-0500 Body weight 53.52 kg Clifford Nicolas DPM Work Phone: [facility] 06-05-2022 09:20-0500 Respiratory rate 20 /min Clifford Nicolas DPM Work Phone: [facility] 02-11-2022 10:17-0400 Body temperature 98.01 [degF] Zari Noblesericsofiya VOCATIONAL COUNSELOR.INDUSTRIAL RENDERER Work Phone: [facility] 02-11-2022 10:17-0400 Diastolic blood pressure 81 mm[Hg] Zari Nobleserich VOCATIONAL COUNSELOR.INDUSTRIAL RENDERER Work Phone: [facility] 02-11-2022 10:17-0400 Heart rate 75 /min Zari Diederich VOCATIONAL COUNSELOR.INDUSTRIAL RENDERER Work Phone: [facility] 02-11-2022 10:17-0400 Respiratory rate 16 /min Zaripatrick Nobleserich VOCATIONAL COUNSELOR.INDUSTRIAL RENDERER Work Phone: [facility] 02-11-2022 10:17-0400 SaO2% (BldA) [Mass fraction] 97 % Zari Hager VOCATIONAL COUNSELOR.INDUSTRIAL RENDERER Work Phone: [facility] 02-11-2022 10:17-0400 Systolic blood pressure 117 mm[Hg] Zari Hager VOCATIONAL COUNSELOR.INDUSTRIAL RENDERER Work Phone: [facility] 11-26-2021 08:45-0400 Body mass index (BMI) [Percentile] Per age and sex 62.13 % Yahaira Arnulfo VOCATIONAL COUNSELOR.INDUSTRIAL RENDERER Work Phone: [facility] 11-26-2021 08:45-0400 Body temperature 98.6 [degF] Yahaira Arnulfo VOCATIONAL COUNSELOR.INDUSTRIAL RENDERER Work Phone: [facility] 11-26-2021 08:45-0400 Body weight 54.43 kg Yahaira Arnulfo VOCATIONAL COUNSELOR.INDUSTRIAL RENDERER Work Phone: [facility] 11-26-2021 08:45-0400 Diastolic blood pressure 62 mm[Hg] Yahaira Ranulfo VOCATIONAL COUNSELOR.INDUSTRIAL RENDERER Work Phone: [facility] 11-26-2021 08:45-0400 Heart rate 106 /min Yahaira Arnulfo VOCATIONAL COUNSELOR.INDUSTRIAL RENDERER Work Phone: [facility] 11-26-2021 08:45-0400 Respiratory rate 16 /min Yahaira Arnulfo VOCATIONAL COUNSELOR.INDUSTRIAL RENDERER Work Phone: [facility] 11-26-2021 08:45-0400 SaO2% (BldA) [Mass fraction] 99 % Yahaira Arnulfo VOCATIONAL COUNSELOR.INDUSTRIAL RENDERER Work Phone: [facility] 11-26-2021 08:45-0400 Systolic blood pressure 102 mm[Hg] Yahaira Arnulfo VOCATIONAL COUNSELOR.INDUSTRIAL RENDERER Work Phone: [facility] 10-09-2021 15:07-0400 Body height 154.9 cm Clifford ALMONTE Work Phone: [facility] 10-09-2021 15:07-0400 Body mass index (BMI) [Percentile] Per age and sex 58.61 % Clifford Valenzuela DPM Work Phone: [facility] 10-09-2021 15:07-0400 Body weight 53.52 kg Clifford Valenzuela DPM Work Phone: [facility] 10-09-2021 15:07-0400 Respiratory rate 17 /min Clifford Valenzuela DPM Work Phone: [facility] 10-01-2021 09:29-0400 Body height 157 cm Beckie Juarez VOCATIONAL COUNSELOR.INDUSTRIAL RENDERER Work Phone: [facility] 10-01-2021 09:29-0400 Body mass index (BMI) [Percentile] Per age and sex 53.08 % Beckie Juarez VOCATIONAL COUNSELOR.INDUSTRIAL RENDERER Work Phone: [facility] 10-01-2021 09:29-0400 Body temperature 98.2 [degF] Beckie Juarez VOCATIONAL COUNSELOR.INDUSTRIAL RENDERER Work Phone: [facility] 10-01-2021 09:29-0400 Body weight 53.75 kg Beckie Juarez VOCATIONAL COUNSELOR.INDUSTRIAL RENDERER Work Phone: [facility] 10-01-2021 09:29-0400 Diastolic blood pressure 76 mm[Hg] Beckie Juarez VOCATIONAL COUNSELOR.INDUSTRIAL RENDERER Work Phone: [facility] 10-01-2021 09:29-0400 Heart rate 76 /min Beckie Juarez VOCATIONAL COUNSELOR.INDUSTRIAL RENDERER Work Phone: [facility] 10-01-2021 09:29-0400 Respiratory rate 16 /min Beckie Juarez VOCATIONAL COUNSELOR.INDUSTRIAL RENDERER Work Phone: [facility] 10-01-2021 09:29-0400 Systolic blood pressure 102 mm[Hg] Beckie Juarez VOCATIONAL COUNSELOR.INDUSTRIAL RENDERER Work Phone: [facility] NEGATED: Highlighted [id number] 13:39-0400 BMI (Body Mass Index) 23.86 kg/m2 [facility] [place] Work Phone: NEGATED: Highlighted [id number] 13:39-0400 Body weight 58.97 kg [facility] Work Phone: NEGATED: Highlighted [id number] 13:39-0400 Body weight 59 kg [facility] Work Phone: NEGATED: Highlighted [id number] 13:39-0400 BP Diastolic 80 mm[Hg] [facility] Work Phone: NEGATED: Highlighted [id number] 13:39-0400 BP Systolic 118 mm[Hg] [facility] Work Phone: NEGATED: Highlighted [id number] 13:39-0400 Heart rate 2+ [facility] Work Phone: NEGATED: Highlighted [id number] 13:39-0400 Height 157.48 cm [facility] Work Phone: NEGATED: Highlighted [id number] 13:39-0400 Height 157 cm [facility] Work Phone: NEGATED: Highlighted [id number] 13:39-0400 Pulse (Heart Rate) 80 /min [facility] Work Phone: Encounters Encounter Date Encounter Type Care Provider Facility Start: 06-24-2023 ambulatory Zoran MEZA.INDUSTRIAL RENDERER Work Phone: [facility] Start: 06-24-2023 Follow-up encounter Zoran Medina on VOCATIONAL COUNSELOR.INDUSTRIAL RENDERER Work Phone: Neurology Procedures Date Procedure Procedure Detail Performing Clinician Start: 04-30-2023 End: 04-30-2023 Avulsion nail plate partial/complete simple 1 Clifford Valenzuela DPM Work Phone: Start: 01-15-2023 Radex foot complete minimum 3 views Alli De Guzman DPM Work Phone: Start: 12-04-2022 Radex foot complete minimum 3 views Clifford Valenzuela DPM Work Phone: Start: 10-25-2022 End: 10-25-2022 Radex foot complete minimum 3 views Clifford Valenzuela DPM Work Phone: Start: 08-11-2022 Avulsion nail plate partial/complete simple 1 Clifford Valenzuela DPM Work Phone: Start: 06-05-2022 Radex foot complete minimum 3 views Kaveh Trevino DPM Work Phone: Start: 02-09-2022 Adult depression screening assessment Zari Hager VOCATIONAL COUNSELOR.INDUSTRIAL RENDERER Work Phone: Start: 12-30-2021 Adult depression screening assessment Eileen Boswelle Work Phone: Start: 10-08-2021 Skin test tuberculos is intradermal Alannah Guthrie MD Work Phone: Start: 10-01-2021 Skin test tuberculos is intradermal Beckie Juarez VOCATIONAL COUNSELOR.INDUSTRIAL RENDERER Work Phone: Start: 10-01-2021 Adult depression screening assessment Beckie Juarez VOCATIONAL COUNSELOR.INDUSTRIAL RENDERER Work Phone: Start: 09-12-2020 Adult depression screening assessment Clifford Nicolas DPM Work Phone: Start: 02-05-2019 End: 02-05-2019 Adolescent tobacco screening was negative - non user Albert Hilario MD Work Phone: NEGATED: Highlighted rowStart: 02-05-2019 End: 02-05-2019 Documentation of current medications [facility] Plan of Treatment Date Care Activity Detail Author Start: 01-20-2025 Urine microalbumin profile [facility] Start: 11-29-2023 ANNUAL PCP TEAM BODY CARE MANAGER FROYLAN DISEASE VISIT ANNUAL PCP TEAM CHRONIC DISEASE VISIT [facility] Start: 11-21-2023 ASTHMA ACTION PLAN ASTHMA ACTION BIENVENIDO N [facility] Start: 11-01-2023 ANNUAL PCP TEAM BODY CARE MANAGER FROYLAN DISEASE VISIT ANNUAL PCP TEAM CHRONIC DISEASE VISIT [facility] Start: 08-29-2023 ANNUAL PCP TEAM BODY CARE MANAGER FROYLAN DISEASE VISIT ANNUAL PCP TEAM CHRONIC DISEASE VISIT [facility] Start: 03-25-2023 ANNUAL PCP TEAM BODY CARE MANAGER FROYLAN DISEASE VISIT ANNUAL PCP TEAM CHRONIC DISEASE VISIT [facility] Start: 03-07-2023 Covid-19 Vaccine ( season) Covid-19 Vaccine ( season) [facility] Start: 03-07-2023 Influenza vaccination INFLUENZA (#1) [facility] Start: 02-09-2023 Adult depression screening assessment DEPRESSION SCREENING [facility] Start: 12-30-2022 Adult depression screening assessment DEPRESSION SCREENING [facility] Start: 10-10-2022 ANNUAL PCP TEAM BODY CARE MANAGER FROYLAN DISEASE VISIT ANNUAL PCP TEAM CHRONIC DISEASE VISIT [facility] Start: 10-08-2022 ANNUAL PCP TEAM BODY CARE MANAGER FROYLAN DISEASE VISIT ANNUAL PCP TEAM CHRONIC DISEASE VISIT [facility] Start: 10-03-2022 ANNUAL PCP TEAM BODY CARE MANAGER FROYLAN DISEASE VISIT ANNUAL PCP TEAM CHRONIC DISEASE VISIT [facility] Start: 10-01-2022 Adult depression screening assessment DEPRESSION SCREENING [facility] Start: 10-01-2022 ANNUAL PCP TEAM BODY CARE MANAGER FROYLAN DISEASE VISIT ANNUAL PCP TEAM CHRONIC DISEASE VISIT [facility] Start: 10-01-2022 ASTHMA CONTROL TEST ASTHMA CONTROL T EST [facility] Start: 08-27-2022 ANNUAL PCP TEAM BODY CARE MANAGER FROYLAN DISEASE VISIT ANNUAL PCP TEAM CHRONIC DISEASE VISIT [facility] Start: 07-07-2022 DEPRESSION ASSESSMENT DEPRESSION ASS ESSMENT [facility] Start: 03-07-2022 Influenza vaccination INFLUENZA (#1) [facility] Start: 01-14-2022 End: 03-16-2022 aPTT in Platelet poor plasma by Coagulation assay [facility] Work Phone: Immunizations Immunization Date Immunization Notes Care Provider Sara lafleur 03-25-2022 influenza, injectabl e, quadrivalent, contains preservative Clifford Valenzuela DPGabrielle Work Phone: [facility] 05-12-2021 influenza, injectabl e, quadrivalent, contains preservative Clifford Valenzuela DPM Work Phone: [facility] 10-21-2020 COVID-19 vaccine, ag e 12+ yr ([employer] [facility]) Clifford Valenzuela DPGabrielle Work Phone: [facility] 09-30-2020 COVID-19 vaccine, ag e 12+ yr ([employer]) Clfiford Valenzuela DPM Work Phone: [facility] 08-19-2020 varicella virus vaccine Edie Juarez VOCATIONAL COUNSELOR.INDUSTRIAL RENDERER Work Phone: [facility] 05-19-2020 influenza, injectabl e, quadrivalent, contains preservative Clifford Valenzuela DPM Work Phone: [facility] Work Phone: 01-19-2020 meningococcal polysaccharide (groups A, C, Y and W-135) diphtheria toxoid conjugate vaccine (MCV4P) Clifford Valenzuela DPM Work Phone: [facility] 05-27-2019 influenza, injectabl e, quadrivalent, contains preservative Clifford Valenzuela DPM Work Phone: [facility] Work Phone: 05-28-2016 meningococcal polysaccharide (groups A, C, Y and W-135) diphtheria toxoid conjugate vaccine (MCV4P) Clifford Valenzuela DPM Work Phone: [facility] 04-30-2016 influenza, injectabl e, quadrivalent, contains preservative Clifford Valenzuela DPM Work Phone: [facility] Work Phone: 01-20-2015 tetanus toxoid, redu odilon diphtheria toxoid, and acellular pertussis vaccine, adsorbed Clifford Valenzuela DPM Work Phone: [facility] Work Phone: 05-04-2014 influenza, seasonal, injectable Clifford Valenzuela DPM Work Phone: [facility] 05-16-2012 influenza virus vacc ine, unspecified formulation Clifford Valenzuela DPM Work Phone: [facility] 04-06-2011 influenza virus vacc ine, unspecified formulation Clifford Valenzuela DPM Work Phone: [facility] 05-12-2010 influenza virus vacc ine, unspecified formulation Clifford Valenzuela DPM Work Phone: [facility] 04-08-2009 influenza virus vacc ine, unspecified formulation Clifford Valenzuela DPM Work Phone: [facility] Work Phone: 05-11-2008 influenza virus vacc ine, unspecified formulation Clifford Valenzuela DPM Work Phone: [facility] Work Phone: 09-23-2007 diphtheria, tetanus toxoids and acellular pertussis vaccine Clifford Valenzuela DPM Work Phone: [facility] Work Phone: 09-23-2007 measles, mumps and rubella virus vaccine Clifford Valenzuela DPM Work Phone: [facility] Work Phone: 09-23-2007 poliovirus vaccine, inactivated Clifford Valenzuela DPM Work Phone: [facility] Work Phone: 05-06-2007 influenza virus vacc ine, unspecified formulation Clifford Valenzuela DPM Work Phone: [facility] Work Phone: 05-08-2006 influenza virus vacc ine, unspecified formulation Clifford Valenzuela DPM Work Phone: [facility] Work Phone: 04-12-2004 pneumococcal conjuga te vaccine, 7 valent Clifford Valenzuela DPM Work Phone: [facility] Work Phone: 12-09-2003 diphtheria, tetanus toxoids and acellular pertussis vaccine Clifford Valenzuela DPM Work Phone: [facility] Work Phone: 12-09-2003 varicella virus vaccine Cnaelo guerrero Nicolas DPM Work Phone: [facility] Work Phone: 09-07-2003 haemophilus influenz ae type b vaccine, HbOC conjugate Clifford Valenzuela DPM Work Phone: [facility] Work Phone: 09-07-2003 measles, mumps and rubella virus vaccine Clifford Valenzuela DPM Work Phone: [facility] Work Phone: 06-14-2003 hepatitis B vaccine, pediatric or pediatric/adolescent dosage Clifford Valenzuela DPM Work Phone: [facility] Work Phone: 06-01-2003 influenza virus vacc ine, unspecified formulation Clifford Valenzuela DPM Work Phone: [facility] Work Phone: 05-02-2003 influenza virus vacc ine, unspecified formulation Clifford Valenzuela DPM Work Phone: [facility] Work Phone: 03-10-2003 diphtheria, tetanus toxoids and acellular pertussis vaccine Clifford Valenzuela DPM Work Phone: [facility] Work Phone: 03-10-2003 haemophilus influenz ae type b vaccine, HbOC conjugate Clifford Valenzuela DPM Work Phone: [facility] Work Phone: 03-10-2003 pneumococcal conjuga te vaccine, 7 valent Clifford Valenzuela DPM Work Phone: [facility] Work Phone: 03-10-2003 poliovirus vaccine, inactivated Clifford Valenzuela DPM Work Phone: [facility] Work Phone: 01-11-2003 diphtheria, tetanus toxoids and acellular pertussis vaccine Clifford Valenzuela DPM Work Phone: [facility] Work Phone: 01-11-2003 haemophilus influenz ae type b vaccine, HbOC conjugate Clifford Valenzuela DPM Work Phone: [facility] Work Phone: 01-11-2003 pneumococcal conjuga te vaccine, 7 valent Clifford Valenzuela DPM Work Phone: [facility] Work Phone: 01-11-2003 poliovirus vaccine, inactivated Clifford Valenzuela DPM Work Phone: [facility] Work Phone: 2002 diphtheria, tetanus toxoids and acellular pertussis vaccine Clifford Valenzuela DPM Work Phone: [facility] Work Phone: 2002 haemophilus influenz ae type b vaccine, HbOC conjugate Clifford Valenzuela DPM Work Phone: [facility] Work Phone: 2002 pneumococcal conjuga te vaccine, 7 valent Clifford Valenzuela DPM Work Phone: [facility] Work Phone: 2002 poliovirus vaccine, inactivated Clifford Valenzuela DPM Work Phone: [facility] Work Phone: 2002 hepatitis B vaccine, pediatric or pediatric/adolescent dosage Clifford Valenzuela DPM Work Phone: [facility] Work Phone: 2002 hepatitis B vaccine, pediatric or pediatric/adolescent dosage Clifford Valenzuela DPM Work Phone: [facility] Work Phone: Payers Date Payer Category Payer Private Health Insurance [id number] 2022 Private Health Insurance [id number] 2022 Private Health Insurance [id number] 2018 Unknown DEANDRE JIMENES PPO [id number] 2018-Present [phone] [facility] [id number] [place] [address] PPO [id number] 2011 Unknown [id number] 1977 Unknown [id number] 1977 Unknown [id number] 1977 Unknown [id number] 1977 Unknown [id number] 1977 Unknown [id number] 1976 Unknown [id number] 1976 Unknown [id number] 1976 Unknown [id number] 1976 Unknown [id number] Unknown [id number] Unknown [id number] Social History Date Type Detail Facility Start: 02-05-2019 End: 02-05-2019 Assertion Unknown if ever smoked [facility] Work Phone: Start: 08-29-2022 Tobacco smoking stat [facility] Never smoked tobacco [facility] Start: 08-27-2021 End: 06-23-2023 Alcohol intake Current non-drinker of alcohol (finding) [facility] Start: 2002 Sex Assigned At Female C [facility] Start: 09-15-2021 End: 09-25-2021 Exposure to SARS-CoV-2 (event) Unable to assess [facility] Start: 10-01-2021 History SDOH Alcohol Frequency 1 [facility] Start: 10-01-2021 History SDOH Alcohol Std Drinks 98 [facility] Start: 10-01-2021 History SDOH Social Connections Phone 5 [facility] Start: 10-01-2021 History SDOH Social Connections Get Together 4 [facility] Start: 10-01-2021 History SDOH Social Connections Uatsdin 3 [facility] Start: 10-01-2021 History SDOH Social Connections Living 7 [facility] Start: 10-01-2021 History SDOH Physica l Activity MPS 6 [facility] Start: 10-01-2021 History SDOH Stress 2 [facility] Start: 09-21-2021 End: 06-05-2022 Exposure to SARS-CoV-2 (event) Not sure [facility] Start: 08-29-2022 Tobacco use and exposure Smokeless tobacco non-user [facility] Start: 10-01-2021 End: 11-06-2022 History of Social function [facility] Start: 10-01-2021 End: 11-06-2022 Social connection and isolation panel [facility] Do you belong to any clubs or organizations such as jain groups, unions, fraternal or athletic groups, or school groups? Yes [facility] Are you now , , , , never or living with a partner? Never [facility] How often to you hav e a drink containing alcohol? Never [facility] How many standard drinks containing alcohol do you have on a typical day? Patient refused [facility] Do you feel stress - tense, restless, nervous, or anxious, or unable to sleep at night because your mind is troubled all the time - these days [OSQ] Only a little [facility] (I/We) worried lizzy er (my/our) food would run out before (I/we) got money to buy more. Never true [facility] In the past 12 month s, was there a time when you were not able to pay the mortgage or rent on time? No [facility] Start: 05-10-2020 Gender identity Identifies as female gender (finding) [facility] Start: 05-10-2020 Sexual orientation Heterosexua l (finding) [facility] NEGATED: Highlighted rowStart: NINF History of tobacco use Passive smoker [facility] Medical Equipment Procedure Code Equipment Code Equipment Origin al Text Equipment Identifier Dates Mini Headless Sc rew 2.5mm X 40mm [id number] Start: 05-29-2022 Wire Abdullahi .035in 2 Trocar 5.5in Fixation - [id number] Start: 05-29-2022 Mini 2.5mm Heade d Cannulated Screw 40mm [id number] Start: 10-25-2022 Clinical Notes 04-24-2020 to 06-23-2023 Clifford Valenzuela Albert, RILEY - 05/25/2023 9:27 AM ESTPatient InstructionsGrClifford cunningham RILEY Price - 04/30/2023 11:16 AM Janina Baig LPN - 04/30/2023 10:23 AM EDT Note Date & Type Note Facility 06-23-2023 Note HNO ID: [id number] Author: Zoran Beasley APRN.INDUSTRIAL RENDERER Service: ? Author Type: Nurse Practitioner Type: Progress Notes Filed: 06/23/2023 10:04 AM Note Text: Polina Alejandre is a 22 year old female. Patient presents with: Follow Up Established Patient Polina is here today for follow up of POTS. Impression/Plan from our last visit on 12/03/2022: Doing well overall with conservative measures and utilization of propranolol 20 mg three times daily. She has limited postural dizziness, lightheadedness, tachycardia, near syncope. No change today. Conservative Measures Increased water intake (2-2.5 liters of water daily) Increased salt intake (3-5 grams daily) Compression stockings Exercise as tolerated Medication Changes -continue propranolol 20 mg three times daily -consider switching to propranolol 60 mg LA once daily Follow up annually. Polina reports that she was in the ER about 2.5 weeks ago. She notes that prior to the ER visit, she was having headaches for about 2 weeks. She woke up one morning and had a temperature of 95.8 F. She felt very cold and could not warm up despite multiple interventions. She noted swelling in her lower extremities (+1 pitting). She was also sweating. 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 She would feel faint with standing up and noted significant tachycardia. She did check her vital signs: BP was 160/90. HR was around 160 bpm while seated. She went to the ER--lab work and ECG were essentially normal--potassium was 3.4. COVID/FLU testing negative in ER. The dizziness, lightheadedness, tachycardia, and near syncope is improved since the ER visit. She does continue to have intermittent periods of sweating. The swelling in her lower extremities is noticeable in the evenings. Previous cardiac workup negative in 2019. She continues to have headaches daily x4 weeks. Location: frontal region that can wrap back around the head. Description: Pressure Duration: Intermittent throughout the day (several hours at most) Pain ratin out of 10 Denies valsalva, coughing, sneezing, exertion, or position onsets headache. Denies photophobia, phonophobia, or nausea associated with headaches. Denies diplopia. Rarely has blurred vision (bilaterally), but this is associated with postural change and POTS. Denies pulsatile tinnitus or tinnitus. History of headaches: Yes, when POTS symptoms onset in 2019. MRI Brain negative at that time. Headaches significantly improved when she was initiated on propranolol. She does note when the next propranolol dose is due, she will note the headache returning. Her utilization management manager is requesting [facility] paperwork be filled out for if these type of symptoms return again. I can fill this out for her. She is unaccompanied today. Medications Reviewed metroNIDAZOLE (METROCREAM) 0.75 % cream Use once daily to affected areas albuterol HFA (PROVENTIL HFA, VENTOLIN HFA) 90 mcg/actuation inhaler Inhale 2 Puffs as instructed every 4 hours as needed. pantoprazole DR (PROTONIX) 40 mg tablet Take 1 tablet by mouth DAILY (6 AM). loratadine (CLARITIN) 10 mg tablet Take 10 mg by mouth once daily. MULTIVITAMIN ORAL Take by mouth once daily. propranolol ER (INDERAL LA) 60 mg 24 hr capsule Take 1 capsule by mouth once daily. methylphenidate ER (CONCERTA) 18 mg biphasic tablet Take 1 tablet by mouth every morning for 30 days. 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 History of Penicillin Allergy Urticaria Due to Drug Allergy Adverse Effect of Cephalosporins and Other Beta-Lactam Antibiotics, Initial Encounter Seasonal Allergic Rhinitis Due to Pollen Migraine Without Aura and Without Status Migrainosus, Not Intractable Elevated Blood Pressure Reading Without Diagnosis of Hypertension Pre-Op Examination Gerd (Gastroesophageal Reflux Disease) Mild Intermittent Asthma Without Complication Pots (Postural Orthostatic Tachycardia Syndrome) Delayed Emergence From Anesthesia Epilepsy (Hcc) Cyst of Right Ovary Drug-Induced Constipation Chronic Superficial Gastritis Without Bleeding PAST SURGICAL HISTORY Procedure Laterality Date DENTAL SURGERY 2011 Simple extraction of primary teeth #A, #B, #C, #H, #I, #J, #M, #N, and #R. EGD 2019 FOOT SURGERY HX Right 10/25/2022 OSTECTOMY TARSAL COALITION Right 04/06/2015 [facility] PAST SURGICAL HISTORY OF 11/21/2003 tear duct surgery bilateral PAST SURGICAL HISTORY OF 05/2022 Correction of second, third, and fourth toes, left foot REMOVE TONSIL AND ADENOI UNDER AGE 14 02/12/2010 Social History Tobacco Use Smoking status: Never Passive exposure: Never Smokeless tobacco: Never Vaping Use Vaping Use: Never used Substance Use Topics Alcohol use: No Drug use: No family history includes Allergies (more content not included)... [facility] 05-25-2023 Note HNO ID: [id number] Author: Clifford Valenzuela DPM Service: ? Author Type: Physician Type: Progress Notes Filed: 06/11/2023 9:12 AM Note Text: CC: follow up s/p correction of hammer toes 2,3,4, right foot and 1 month follow up of bilateral partial hallux nail avulsions Polina Alejandre is a 22 year old female who presents for 1 month follow up of bilateral partial nail avulsions as well as follow up s/p hammertoe surgery (DOS: 10/25/22). Patient is doing very well at this time. Not currently having any pain. States the nail avulsion sites have healed well. She denies any other pedal complaints. Histories: 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) off AEDs since 2018 GERD (gastroesophageal reflux disease) Hypertension 04/11/2020 Mild intermittent asthma without complication MT (mallet toe), right Narcolepsy without cataplexy Nonallergic rhinitis PMH - PAST MEDICAL HISTORY OF seizure POTS (postural orthostatic tachycardia syndrome) PAST SURGICAL HISTORY Procedure Laterality Date DENTAL SURGERY HX 2012 Simple extraction of primary teeth #A, #B, #C, #H, #I, #J, #M, #N, and #R. EGD 2019 FOOT SURGERY HX Right 10/25/2022 OSTECTOMY TARSAL COALITION Right 04/06/2015 [facility] PAST SURGICAL HISTORY OF 11/21/2003 tear duct surgery bilateral PAST SURGICAL HISTORY OF 05/2022 Correction of second, third, and fourth toes, left foot REMOVE TONSIL AND ADENOI UNDER AGE 14 02/12/2010 Social History Tobacco Use Smoking status: Never Passive exposure: Never Smokeless tobacco: Never Vaping Use Vaping Use: Never used Substance Use Topics Alcohol use: No Drug use: No FAMILY HISTORY Problem Relation Age of Onset Allergies Father Asthma Brother Allergies Maternal Grandmother Hypertension Maternal Grandfather Allergies Maternal Grandfather Heart Maternal Grandfather mat side/pat side Current Medications: Current Outpatient Medications Medication Sig propranolol (INDERAL) 20 mg tablet Take 1 tablet by mouth three times daily. metroNIDAZOLE (METROCREAM) 0.75 % cream Use once daily to affected areas albuterol HFA (PROVENTIL HFA, VENTOLIN HFA) 90 mcg/actuation inhaler Inhale 2 Puffs as instructed every 4 hours as needed. loratadine (CLARITIN) 10 mg tablet Take 10 mg by mouth once daily. MULTIVITAMIN ORAL Take by mouth once daily. methylphenidate ER (CONCERTA) 18 mg biphasic tablet Take 1 tablet by mouth every morning for 30 days. tacrolimus (PROTOPIC) 0.03 % ointment Use once daily to affected areas on face pantoprazole DR (PROTONIX) 40 mg tablet Take 1 tablet by mouth DAILY (6 AM). No current facility-administered medications for this visit. Allergies: Compazine [Prochlorperazine], Hydrocodone-Acetaminophen, Latex, Omnicef [Cefdinir], Versed [Midazolam Hcl], Penicillins, and Gluten REVIEW OF SYSTEMS See tech's note Physical Exam: Resp. rate 20, height 157.5 cm (5' 2 ), weight 52.2 kg (115 lb), last menstrual period 11/08/2022. Polina is a pleasant, cooperative, well developed 22 year old adult female. The patient is alert and oriented to time, place and person. She has normal affect and mood. Problem focused examination of bilateral lower extremities: Dorsalis pedis and posterior tibial pulses palpable bilateral. Capillary refill time immediate to all digits. Skin temperature warm to warm proximal to distal. Skin is warm and dry. No rashes or lesions noted. There are no open wounds or signs of infection. The is no lymphadenopathy noted. Nail avulsion sites to bilateral hallux medial and lateral borders are well healed without evidence of infection. Peripheral sensation and reflexes are intact, bilateral and symmetrical. Satisfactory alignment. No gross deformity is noted. Normal alignment in stance. Motor strength is 5/5 of all groups. Normal range of motion, stability or coordination of both lower extremities Assessment: This is a 22 year old female presenting for follow up s/p bilateral partial hallux nail avulsions. Plan: A comprehensive history and physical examination were performed. Patient was educated on clinical and radiographic findings, diagnosis and treatment plans. Patient states that she understands all that has been explained and all questions were answered to their apparent satisfaction. -No activity restrictions at this time -Follow up as needed Anthony Gomes DPM PGY-3 I personally saw and evaluated the patient. I reviewed the resident's note. I agree with the resident's assessment and plan unless otherwise noted. Clifford Valenzuela DPM, [facility] 05-25-2023 History of Present illness Narrative CC: follow up s/p correction of hammer toes 2,3,4, right foot and 1 month follow up of bilateral partial hallux nail avulsions Polina Alejandre is a 22 year old female who presents for 1 month follow up of bilateral partial nail avulsions as well as follow up s/p hammertoe surgery (DOS: 10/25/22). Patient is doing very well at this time. Not currently having any pain. States the nail avulsion sites have healed well. She denies any other pedal complaints. Histories: 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) off AEDs since 2017 GERD (gastroesophageal reflux disease) Hypertension 04/11/2020 Mild intermittent asthma without complication MT (mallet toe), right Narcolepsy without cataplexy Nonallergic rhinitis PMH - PAST MEDICAL HISTORY OF seizure POTS (postural orthostatic tachycardia syndrome) PAST SURGICAL HISTORY Procedure Laterality Date DENTAL SURGERY HX 2011 Simple extraction of primary teeth #A, #B, #C, #H, #I, #J, #M, #N, and #R. EGD 2019 FOOT SURGERY HX Right 10/25/2022 OSTECTOMY TARSAL COALITION Right 04/06/2015 [facility] PAST SURGICAL HISTORY OF 11/21/2003 tear duct surgery bilateral PAST SURGICAL HISTORY OF 05/2022 Correction of second, third, and fourth toes, left foot REMOVE TONSIL AND ADENOI UNDER AGE 14 02/12/2010 Social History Tobacco Use Smoking status: Never Passive exposure: Never Smokeless tobacco: Never Vaping Use Vaping Use: Never used Substance Use Topics Alcohol use: No Drug use: No FAMILY HISTORY Problem Relation Age of Onset Allergies Father Asthma Brother Allergies Maternal Grandmother Hypertension Maternal Grandfather Allergies Maternal Grandfather Heart Maternal Grandfather mat side/pat side Current Medications: Current Outpatient Medications Medication Sig propranolol (INDERAL) 20 mg tablet Take 1 tablet by mouth three times daily. metroNIDAZOLE (METROCREAM) 0.75 % cream Use once daily to affected areas albuterol HFA (PROVENTIL HFA, VENTOLIN HFA) 90 mcg/actuation inhaler Inhale 2 Puffs as instructed every 4 hours as needed. loratadine (CLARITIN) 10 mg tablet Take 10 mg by mouth once daily. MULTIVITAMIN ORAL Take by mouth once daily. methylphenidate ER (CONCERTA) 18 mg biphasic tablet Take 1 tablet by mouth every morning for 30 days. tacrolimus (PROTOPIC) 0.03 % ointment Use once daily to affected areas on face pantoprazole DR (PROTONIX) 40 mg tablet Take 1 tablet by mouth DAILY (6 AM). No current facility-administered medications for this visit. Allergies: Compazine [Prochlorperazine], Hydrocodone-Acetaminophen, Latex, Omnicef [Cefdinir], Versed [Midazolam Hcl], Penicillins, and Gluten REVIEW OF SYSTEMS See tech's note Physical Exam: Resp. rate 20, height 157.5 cm (5' 2 ), weight 52.2 kg (115 lb), last menstrual period 11/08/2022. Polina is a pleasant, cooperative, well developed 22 year old adult female. The patient is alert and oriented to time, place and person. She has normal affect and mood. Problem focused examination of bilateral lower extremities: Dorsalis pedis and posterior tibial pulses palpable bilateral. Capillary refill time immediate to all digits. Skin temperature warm to warm proximal to distal. Skin is warm and dry. No rashes or lesions noted. There are no open wounds or signs of infection. The is no lymphadenopathy noted. Nail avulsion sites to bilateral hallux medial and lateral borders are well healed without evidence of infection. Peripheral sensation and reflexes are intact, bilateral and symmetrical. Satisfactory alignment. No gross deformity is noted. Normal alignment in stance. Motor strength is 5/5 of all groups. Normal range of motion, stability or coordination of both lower extremities Assessment: This is a 22 year old female presenting for follow up s/p bilateral partial hallux nail avulsions. Plan: A comprehensive history and physical examination were performed. Patient was educated on clinical and radiographic findings, diagnosis and treatment plans. Patient states that she understands all that has been explained and all questions were answered to their apparent satisfaction. -No activity restrictions at this time -Follow up as needed Anthony Gomes DPM PGY-3 I personally saw and evaluated the patient. I reviewed the resident's note. I agree with the resident's assessment and plan unless otherwise noted. Clifford Valenzuela DPM, FACFAS documented in this encounter [facility] 04-30-2023 Note HNO ID: [id number] Author: Clifford Valenzuela DPM Service: ? Author Type: Physician Type: Progress Notes Filed: 05/19/2023 7:39 PM Note Text: CC: Bilateral ingrown toe nails with final follow up s/p correction of hammer toes 2,3,4, right foot Polina Alejandre is a 22 year old female who presents with complaint of bilateral great toe pain bilateral foot. Patient states that pain has been present for few month with recurrence. Admits to increased pain with pressure to the area. no drainage and erythema noted to the area. admits to history of ingrown toenail in the past Patient state that her right toes are doing great without any issue. Denies any nausea, vomiting, fever, chills, shortness of breath, chest pain or calf pain noted. Histories: 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) off AEDs since 2018 GERD (gastroesophageal reflux disease) Hypertension 04/11/2020 Mild intermittent asthma without complication MT (mallet toe), right Narcolepsy without cataplexy Nonallergic rhinitis PMH - PAST MEDICAL HISTORY OF seizure POTS (postural orthostatic tachycardia syndrome) PAST SURGICAL HISTORY Procedure Laterality Date DENTAL SURGERY 2011 Simple extraction of primary teeth #A, #B, #C, #H, #I, #J, #M, #N, and #R. EGD 2019 FOOT SURGERY HX Right 10/25/2022 OSTECTOMY TARSAL COALITION Right 04/06/2015 [facility] PAST SURGICAL HISTORY OF 11/21/2003 tear duct surgery bilateral PAST SURGICAL HISTORY OF 05/2022 Correction of second, third, and fourth toes, left foot REMOVE TONSIL AND ADENOI UNDER AGE 14 02/12/2010 Social History Tobacco Use Smoking status: Never Passive exposure: Never Smokeless tobacco: Never Vaping Use Vaping Use: Never used Substance Use Topics Alcohol use: No Drug use: No FAMILY HISTORY Problem Relation Age of Onset Allergies Father Asthma Brother Allergies Maternal Grandmother Hypertension Maternal Grandfather Allergies Maternal Grandfather Heart Maternal Grandfather mat side/pat side Current Medications: Current Outpatient Medications Medication Sig propranolol (INDERAL) 20 mg tablet Take 1 tablet by mouth three times daily. metroNIDAZOLE (METROCREAM) 0.75 % cream Use once daily to affected areas albuterol HFA (PROVENTIL HFA, VENTOLIN HFA) 90 mcg/actuation inhaler Inhale 2 Puffs as instructed every 4 hours as needed. loratadine (CLARITIN) 10 mg tablet Take 10 mg by mouth once daily. MULTIVITAMIN ORAL Take by mouth once daily. methylphenidate ER (CONCERTA) 18 mg biphasic tablet Take 1 tablet by mouth every morning for 30 days. tacrolimus (PROTOPIC) 0.03 % ointment Use once daily to affected areas on face pantoprazole DR (PROTONIX) 40 mg tablet Take 1 tablet by mouth DAILY (6 AM). No current facility-administered medications for this visit. Allergies: Compazine [Prochlorperazine], Hydrocodone-Acetaminophen, Latex, Omnicef [Cefdinir], Versed [Midazolam Hcl], Penicillins, and Gluten REVIEW OF SYSTEMS See tech's note Physical Exam: Resp. rate 18, height 157.5 cm (5' 2 ), weight 52.2 kg (115 lb), last menstrual period 11/08/2022. Polina is a pleasant, cooperative, well developed 22 year old adult female. The patient is alert and oriented to time, place and person. She has normal affect and mood. Problem focused examination of bilateral lower extremities: Dorsalis pedis and posterior tibial pulses palpable bilateral. Capillary refill time immediate to all digits. Skin temperature warm to warm proximal to distal. Skin is warm and dry. No rashes or lesions noted. There are no open wounds or signs of infection. The is no lymphadenopathy noted. Pain on palpation noted to the medial and lateral border of the 1st digit, bilateral foot. Incurvation of the toenail is noted to the affected nail border. There is None drainage. There is no erythema beyond the immediate affected nail fold. No evidence of ascending cellulitis. Positive pain to palpation of the affected nail border. Peripheral sensation and reflexes are intact, bilateral and symmetrical. Satisfactory alignment. No gross deformity is noted. Normal alignment in stance. Motor strength is 5/5 of all groups. Normal range of motion, stability or coordination of both lower extremities Diagnostic Assessment: This is a 22 year old female presenting with ingrown toenail right or left medial and lateral border hallux nail Medical decision making and treatment plans: A comprehensive history and physical examination were performed. Patient was educated on clinical and radiographic findings, diagnosis and treatment plans. Patient states that she understands all that has been explained and all questions were answered to their apparent satisfaction. Patient was educated on possible treatment options fo (more content not included)... [facility] 04-30-2023 Note HNO ID: [id number] Author: Janina Adams LPN Service: ? Author Type: LICENSED NURSE Type: Progress Notes Filed: 05/19/2023 7:39 PM Note Text: Prepared two 3 cc syringes each containing 2.5 cc Lidocaine and 2.5 cc Bupivacaine with 25 gauge needles and gave to MD for injection of bilateral feet - Janina Adams LPN [facility] 04-30-2023 Note HNO ID: [id number] Author: Kenzie Schaefer MA Service: ? Author Type: Manager Cleaning Type: Progress Notes Filed: 05/19/2023 7:39 PM Note Text: REVIEW OF SYSTEMS: GENERAL: Well developed, well nourished. No acute distress PAIN: Pain 09/13 CARDIOVASCULAR: Negative for chest pain, leg swelling and palpations. MSK: Negative for joint swelling SKIN: Negative for lesions, rash, itching, metal sensitivity NEURO: Epilepsy ENDOCRINE: Negative for diabetic associated symptoms HEMATOLOGY: Negative for excessive bleeding, clots, bleeding disorders. Kenzie Schaefer MA [facility] 04-30-2023 Instructions Cami Thrasher DPM - 04/30/2023 11:17 AM EDT Epsom salt soaks. Band aid and documented in this encounter [facility] 04-30-2023 History of Present illness Narrative Associated Order(s): Nail Removal; Nail Removal Post-Procedure Diagnose(s): Ingrown toenail of both feet CC: Bilateral ingrown toe nails with final follow up s/p correction of hammer toes 2,3,4, right foot Polina Alejandre is a 22 year old female who presents with complaint of bilateral great toe pain bilateral foot. Patient states that pain has been present for few month with recurrence. Admits to increased pain with pressure to the area. no drainage and erythema noted to the area. admits to history of ingrown toenail in the past Patient state that her right toes are doing great without any issue. Denies any nausea, vomiting, fever, chills, shortness of breath, chest pain or calf pain noted. Histories: 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) off AEDs since 2018 GERD (gastroesophageal reflux disease) Hypertension 04/11/2020 Mild intermittent asthma without complication MT (mallet toe), right Narcolepsy without cataplexy Nonallergic rhinitis PMH - PAST MEDICAL HISTORY OF seizure POTS (postural orthostatic tachycardia syndrome) PAST SURGICAL HISTORY Procedure Laterality Date DENTAL SURGERY HX 2011 Simple extraction of primary teeth #A, #B, #C, #H, #I, #J, #M, #N, and #R. EGD 2019 FOOT SURGERY HX Right 10/25/2022 OSTECTOMY TARSAL COALITION Right 04/06/2015 [facility] PAST SURGICAL HISTORY OF 11/21/2003 tear duct surgery bilateral PAST SURGICAL HISTORY OF 05/2022 Correction of second, third, and fourth toes, left foot REMOVE TONSIL AND ADENOI UNDER AGE 14 02/12/2010 Social History Tobacco Use Smoking status: Never Passive exposure: Never Smokeless tobacco: Never Vaping Use Vaping Use: Never used Substance Use Topics Alcohol use: No Drug use: No FAMILY HISTORY Problem Relation Age of Onset Allergies Father Asthma Brother Allergies Maternal Grandmother Hypertension Maternal Grandfather Allergies Maternal Grandfather Heart Maternal Grandfather mat side/pat side Current Medications: Current Outpatient Medications Medication Sig propranolol (INDERAL) 20 mg tablet Take 1 tablet by mouth three times daily. metroNIDAZOLE (METROCREAM) 0.75 % cream Use once daily to affected areas albuterol HFA (PROVENTIL HFA, VENTOLIN HFA) 90 mcg/actuation inhaler Inhale 2 Puffs as instructed every 4 hours as needed. loratadine (CLARITIN) 10 mg tablet Take 10 mg by mouth once daily. MULTIVITAMIN ORAL Take by mouth once daily. methylphenidate ER (CONCERTA) 18 mg biphasic tablet Take 1 tablet by mouth every morning for 30 days. tacrolimus (PROTOPIC) 0.03 % ointment Use once daily to affected areas on face pantoprazole DR (PROTONIX) 40 mg tablet Take 1 tablet by mouth DAILY (6 AM). No current facility-administered medications for this visit. Allergies: Compazine [Prochlorperazine], Hydrocodone-Acetaminophen, Latex, Omnicef [Cefdinir], Versed [Midazolam Hcl], Penicillins, and Gluten REVIEW OF SYSTEMS See tech's note Physical Exam: Resp. rate 18, height 157.5 cm (5' 2 ), weight 52.2 kg (115 lb), last menstrual period 11/08/2022. Polina is a pleasant, cooperative, well developed 22 year old adult female. The patient is alert and oriented to time, place and person. She has normal affect and mood. Problem focused examination of bilateral lower extremities: Dorsalis pedis and posterior tibial pulses palpable bilateral. Capillary refill time immediate to all digits. Skin temperature warm to warm proximal to distal. Skin is warm and dry. No rashes or lesions noted. There are no open wounds or signs of infection. The is no lymphadenopathy noted. Pain on palpation noted to the medial and lateral border of the 1st digit, bilateral foot. Incurvation of the toenail is noted to the affected nail border. There is None drainage. There is no erythema beyond the immediate affected nail fold. No evidence of ascending cellulitis. Positive pain to palpation of the affected nail border. Peripheral sensation and reflexes are intact, bilateral and symmetrical. Satisfactory alignment. No gross deformity is noted. Normal alignment in stance. Motor strength is 5/5 of all groups. Normal range of motion, stability or coordination of both lower extremities Diagnostic Assessment: This is a 22 year old female presenting with ingrown toenail right or left medial and lateral border hallux nail Medical decision making and treatment plans: A comprehensive history and physical examination were performed. Patient was educated on clinical and radiographic findings, diagnosis and treatment plans. Patient states that she understands all that has been explained and all questions were answered to their apparent satisfaction. Patient was educated on possible treatment options for ingrown toenail. Patient was educated on permanent nail avulsion procedure to the right or left hallux medial and lateral nail border. Patient was educated on details of procedure as well as medically reasonable risks, benefits and complications. Verbal consent was obtained. Patient elects to proceed. Please see procedure note below. Home going instructions were dispensed to patient. Patient to follow up in 1 month. Cami Thrasher DPM PGY-3 NAIL REMOVAL Nail Removal Date/Time: 04/30/2023 11:57 AM Performed by: Clifford Valenzuela DPM Authorized by: Clifford Valenzuela DPM Informed Consent Consent Obtained: Verbal [place] Protocol SIGN IN Personnel directly involved with the procedure wore the appropriate PPE. Special Equipment: Yes Patient/Surrogate Stated/Verified: Patient name, Date of , Relevant allergies and Intended procedure TIME OUT Intended patient and procedure match the source document(s). Relevant labs, photos, and/or imaging studies have been reviewed. Correct side/site marked and visible. Location Details: right hallux of right foot Anesthesia Details: Anesthesia: Digital block Local anesthetic: Lidocaine 1% without epinephrine and bupivacaine 0.5% without epinephrine Patient sedated: No Procedure Details: Preparation: Skin prepped with Betadine Amount removed: Partial Side: Lateral and medial Nail matrix removed: Partial Dressing applied: Xeroform gauze and 4x4 sterile gauze Patient education: Patient education given out at the end of procedure NAIL REMOVAL Nail Removal Date/Time: 04/30/2023 11:48 AM Performed by: Clifford Valenzuela DPM Authorized by: Clifford Valenzuela DPM Informed Consent Consent Obtained: Verbal [place] Protocol SIGN IN Personnel directly involved with the procedure wore the appropriate PPE. Special Equipment: N/A Patient/Surrogate Stated/Verified: Patient name, Date of , Intended procedure and Relevant allergies TIME OUT Consent documented and matches the intended procedure. Relevant labs, photos, and/or imaging studies have been reviewed. Correct side/site marked and visible. Medications required for procedure verified. Location Details: of left foot Anesthesia Details: Anesthesia: Digital block Local anesthetic: Lidocaine 1% without epinephrine and bupivacaine 0.25% without epinephrine Patient sedated: No Procedure Details: Preparation: Skin prepped with Betadine Amount removed: Partial Side: Lateral and medial Nail matrix removed: Partial Dressing applied: Xeroform gauze I personally saw and evaluated the patient. I reviewed the resident's note. I agree with the resident's assessment and plan unless otherwise noted. Clifford Valenzuela DPM, FACFAS Prepared two 3 cc syringes each containing 2.5 cc Lidocaine and 2.5 cc Bupivacaine with 25 gauge needles and gave to MD for injection of bilateral feet - Janina Adams LPN REVIEW OF SYSTEMS: GENERAL: Well developed, well nourished. No acute distress PAIN: Pain 09/13 CARDIOVASCULAR: Negative for chest pain, leg swelling and palpations. MSK: Negative for joint swelling SKIN: Negative for lesions, rash, itching, metal sensitivity NEURO: Epilepsy ENDOCRINE: Negative for diabetic associated symptoms HEMATOLOGY: Negative for excessive bleeding, clots, bleeding disorders. Kenzie Schaefer MA documented in this encounter [facility] 02-26-2023 Miscellaneous Notes Last OV: 12/03/2022 Last Refill: 08/22/2022 F/U OV: N/A Appropriate for refill. You did take this over in June 2020. Not sure why Dr. Gutiérrez ordered for her in Aug 2022. She did message in and request this. Routed to MA for review. AZUL Rudd, RN, BA documented in this encounter [facility] 01-20-2023 Miscellaneous Notes Notified pt of message below, she verbalized understanding and denies any questions at this time. Refill was re-sent to [facility] Adenike Simmons MD Reason for Disposition Prescription refill request for a controlled substance (such as most ADHD meds or narcotics) Answer Assessment - Initial Assessment Questions Pt calling to request that her Concerta please be canceled at [facility] and resent to [facility] pharmacy in [place] instead. He medication is currently out of stock at [facility]. Protocols used: Medication Question [id number] Pt is currently due for refill of her Concerta. The script had been electronically sent to [facility] pharmacy but they do not have the medication in stock. Pt requesting script be cancelled at [facility] and resent to [facility] in [place]. Pharmacy preference updated. Routed to provider for review. Please advise. documented in this encounter [facility] 01-18-2023 Note HNO ID: [id number] Author: Clifford Valenzuela DPM Service: ? Author Type: Physician Type: Progress Notes Filed: 02/04/2023 6:14 PM Note Text: DOS: 10/25/22 POD: 82 POV: 3 Procedure: Correction of hammertoes 2-5 right foot This 22 year old female presents for a post op visit. Patient states they are doing well. Pain is well controlled. Has been icing and elevating the extremity as instructed preoperatively and has been weightbearing as tolerated in tennis shoes to the right lower extremity. Denies any current nausea, vomiting, fever, chills, shortness of breath, chest pain or calf pain. States that she believes her great toenails may be ingrowing again. Hx of temporary hallux great toenail avulsions. Denies any other pedal complaints. 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) off AEDs since 2018 GERD (gastroesophageal reflux disease) Hypertension 04/11/2020 Mild intermittent asthma without complication MT (mallet toe), right Narcolepsy without cataplexy Nonallergic rhinitis PMH - PAST MEDICAL HISTORY OF seizure POTS (postural orthostatic tachycardia syndrome) Current Outpatient Medications Medication Sig metroNIDAZOLE (METROCREAM) 0.75 % cream Use once daily to affected areas tacrolimus (PROTOPIC) 0.03 % ointment Use once daily to affected areas on face albuterol HFA (PROVENTIL HFA, VENTOLIN HFA) 90 mcg/actuation inhaler Inhale 2 Puffs as instructed every 4 hours as needed. methylphenidate ER 18 mg tablet Take 1 tablet by mouth every morning for 30 days. Do not start before January 18, 2023. methylphenidate ER 18 mg tablet Take 1 tablet by mouth every morning for 30 days. Do not start before December 20, 2022. loratadine (CLARITIN) 10 mg tablet Take 10 mg by mouth once daily. propranolol (INDERAL) 20 mg tablet Take 1 tablet by mouth three times daily. MULTIVITAMIN ORAL Take by mouth once daily. methylphenidate ER (CONCERTA) 18 mg biphasic tablet Take 1 tablet by mouth every morning for [address] (PROTONIX) 40 mg tablet Take 1 tablet by mouth DAILY (6 AM). No current facility-administered medications for this visit. ALLERGIES Allergen Reactions Compazine [Prochlor* Intolerance Restlessness, agitation Hydrocodone-Acetami* Swelling Latex Swelling Omnicef [Cefdinir] Swelling Versed [Midazolam H* Mental Status Change Pulling out IV's, extremely confused and restless, getting on hands and knees Penicillins Rash Gluten GI Upset Objective: Patient presents partial weightbearing to right leg. Dressing is dry, clean, and intact with normal strike through noted. Problem focus examination to the right lower extremity: Incision site is well coapted without evidence of dehiscence. Mild erythema and edema surrounding surgical site. No drainage. No lymphadenopathy. No lymphangitis. No surrounding cellulitis. No signs of infection. Patient has no pain to palpation of calf. The calf is soft, supple and nontender without evidence of DVT. Negative Joan's test. Satisfactory alignment is noted. Pedal pulses are palpable. Capillary refill time is less than three seconds to all digits. Sensations are intact to light touch. Pain to palpation along lateral borders of b/l great toenails Toes 2,3,4 purchase ground on weightbearing with appropriate clinical alignment maintained. No pain to palpation of digits. 01/15/23: right foot radiographs (three views: AP/MO/lateral; weight-bearing) were performed and examined today. Personal radiographic evaluation: Status post claw toe correction of digits 2,3,4. Stable post-operative appearance. Hardware in normal position without evidence of failure or loosening. Position maintained compared to previous radiographs. No acute destructive changes. No gas in the soft tissues. Assessment: Satisfactory post-operative progress B/L hallux ingrowing nails lateral border Plan: The patient was educated on clinical examination findings, postoperative prognosis and protocol. All questions were answered to patient's apparent satisfaction. - WBAT in regular shoe gear - Activity as tolerated. No restrictions. - Patient would like to schedule appointment in the future for her reoccurring ingrown nails. - RTC in 3 months for permament b/l lateral hallux border ingrown nail removals. Alli De Guzman DPM PGY-3 I personally saw and evaluated the patient. I reviewed the resident's note. I agree with the resident's assessment and plan unless otherwise noted. Clifford Valenzuela DPM, [facility] 01-18-2023 History of Present illness Narrative DOS: 10/25/22 POD: 82 POV: 3 Procedure: Correction of hammertoes 2-5 right foot This 22 year old female presents for a post op visit. Patient states they are doing well. Pain is well controlled. Has been icing and elevating the extremity as instructed preoperatively and has been weightbearing as tolerated in tennis shoes to the right lower extremity. Denies any current nausea, vomiting, fever, chills, shortness of breath, chest pain or calf pain. States that she believes her great toenails may be ingrowing again. Hx of temporary hallux great toenail avulsions. Denies any other pedal complaints. 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) off AEDs since 2018 GERD (gastroesophageal reflux disease) Hypertension 04/11/2020 Mild intermittent asthma without complication MT (mallet toe), right Narcolepsy without cataplexy Nonallergic rhinitis PMH - PAST MEDICAL HISTORY OF seizure POTS (postural orthostatic tachycardia syndrome) Current Outpatient Medications Medication Sig metroNIDAZOLE (METROCREAM) 0.75 % cream Use once daily to affected areas tacrolimus (PROTOPIC) 0.03 % ointment Use once daily to affected areas on face albuterol HFA (PROVENTIL HFA, VENTOLIN HFA) 90 mcg/actuation inhaler Inhale 2 Puffs as instructed every 4 hours as needed. methylphenidate ER 18 mg tablet Take 1 tablet by mouth every morning for 30 days. Do not start before January 18, 2023. methylphenidate ER 18 mg tablet Take 1 tablet by mouth every morning for 30 days. Do not start before December 20, 2022. loratadine (CLARITIN) 10 mg tablet Take 10 mg by mouth once daily. propranolol (INDERAL) 20 mg tablet Take 1 tablet by mouth three times daily. MULTIVITAMIN ORAL Take by mouth once daily. methylphenidate ER (CONCERTA) 18 mg biphasic tablet Take 1 tablet by mouth every morning for [address] (PROTONIX) 40 mg tablet Take 1 tablet by mouth DAILY (6 AM). No current facility-administered medications for this visit. ALLERGIES Allergen Reactions Compazine [Prochlor* Intolerance Restlessness, agitation Hydrocodone-Acetami* Swelling Latex Swelling Omnicef [Cefdinir] Swelling Versed [Midazolam H* Mental Status Change Pulling out IV's, extremely confused and restless, getting on hands and knees Penicillins Rash Gluten GI Upset Objective: Patient presents partial weightbearing to right leg. Dressing is dry, clean, and intact with normal strike through noted. Problem focus examination to the right lower extremity: Incision site is well coapted without evidence of dehiscence. Mild erythema and edema surrounding surgical site. No drainage. No lymphadenopathy. No lymphangitis. No surrounding cellulitis. No signs of infection. Patient has no pain to palpation of calf. The calf is soft, supple and nontender without evidence of DVT. Negative Joan's test. Satisfactory alignment is noted. Pedal pulses are palpable. Capillary refill time is less than three seconds to all digits. Sensations are intact to light touch. Pain to palpation along lateral borders of b/l great toenails Toes 2,3,4 purchase ground on weightbearing with appropriate clinical alignment maintained. No pain to palpation of digits. 01/15/23: right foot radiographs (three views: AP/MO/lateral; weight-bearing) were performed and examined today. Personal radiographic evaluation: Status post claw toe correction of digits 2,3,4. Stable post-operative appearance. Hardware in normal position without evidence of failure or loosening. Position maintained compared to previous radiographs. No acute destructive changes. No gas in the soft tissues. Assessment: Satisfactory post-operative progress B/L hallux ingrowing nails lateral border Plan: The patient was educated on clinical examination findings, postoperative prognosis and protocol. All questions were answered to patient's apparent satisfaction. - WBAT in regular shoe gear - Activity as tolerated. No restrictions. - Patient would like to schedule appointment in the future for her reoccurring ingrown nails. - RTC in 3 months for permament b/l lateral hallux border ingrown nail removals. Alli De Guzman DPM PGY-3 I personally saw and evaluated the patient. I reviewed the resident's note. I agree with the resident's assessment and plan unless otherwise noted. Clifford Valenzuela DPM, FACFAS documented in this encounter [facility] 12-18-2022 Miscellaneous Notes Please review and assist. documented in this encounter [facility] 12-16-2022 Note HNO ID: [id number] Author: RT Antoinette(R) Service: ? Author Type: Crisis Worker Type: Progress Notes Filed: 12/16/2022 4:34 PM Note Text: Radiology Service Progress Note PATIENT NAME: Polina Alejandre DATE OF SERVICE: December 16, 2022 TIME: 4:34 PM PATIENT IDENTITY VERIFICATION COMPLETED USING TWO (2) IDENTIFIERS: Name and Date of confirmed by patient verbally. FALL SCREENING: Has the patient had 2 falls in the last year or 1 fall with injury or currently using an Ambulatory Assistive Device (Walker, Cane, Wheelchair, Crutches, etc.)? No PATIENT GENDER DATA: Female. status: : No status: NO. PATIENT RELEVANT IMPLANT DATA REVIEWED: Yes RADIOLOGY DEPARTMENT: MR; Exam(s) Completed: Body: Liver (routine) PERIPHERAL IV DATA: Site assessment: Clean,Dry and Intact, Site disposition Discontinued SIGNED BY: RT Antoinette(R) December 16, 2022 4:34 PM [facility] 12-16-2022 History of Present illness Narrative Radiology Service Progress Note PATIENT NAME: Polina Alejandre DATE OF SERVICE: December 16, 2022 TIME: 4:34 PM PATIENT IDENTITY VERIFICATION COMPLETED USING TWO (2) IDENTIFIERS: Name and Date of confirmed by patient verbally. FALL SCREENING: Has the patient had 2 falls in the last year or 1 fall with injury or currently using an Ambulatory Assistive Device (Walker, Cane, Wheelchair, Crutches, etc.)? No PATIENT GENDER DATA: Female. status: : No status: NO. PATIENT RELEVANT IMPLANT DATA REVIEWED: Yes RADIOLOGY DEPARTMENT: MR; Exam(s) Completed: Body: Liver (routine) PERIPHERAL IV DATA: Site assessment: Clean,Dry and Intact, Site disposition Discontinued SIGNED BY: RT Antoinette(R) December 16, 2022 4:34 PM documented in this encounter [facility] 12-11-2022 Note HNO ID: [id number] Author: Vanna Aleman MD Service: ? Author Type: Physician Type: Progress Notes Filed: 12/11/2022 8:28 AM Note Text: [facility] Department of Dermatology VIRTUAL VISIT PROGRESS NOTE This is a virtual visit. It required patient-provider interaction for the medical decision making as documented below. This visit was completed via [employer]. Discussed with patient limitations of virtual software with assessment of skin disease/lesions. Pt acknowledged and consented to visit. Chief Complaint: rash Date of last visit to [facility] Dermatology: new patient History of Present Illness: Polina Alejandre is a 22 year old female Patient is here for: # 1 Rash Location: face- mouth an dnose Duration: 6-8 wks Symptoms (growing, itching, bleeding, tender): dry itching and tender Current Treatments: n/a Past Treatments: Bactroban, ketoconazole, hydrocortizone Patient thought it was a chapstick/face cream but rash got worse Was started on mupirocin but that didn't help Then started on ketoconazole/HC which made it worse PERTINENT PAST DERMATOLOGIC HISTORY: -Personal History of Skin Cancer: No -Personal History of Atypical Moles: No -Personal History of Extensive Sun Exposure/Blistering Sunburns:No -History of tanning bed usage: No -Does patient use sunscreen Yes -Is the patient immunosuppressed: No FAMILY HISTORY: -Family History of Skin Cancer: No VIDEO EXAM: -General: well appearing, in no acute distress -Neurology: alert and oriented times three -Psychiatry: appropriate mood/affect Skin: Zhou phototype: I Skin exam performed of Face, Neck, Skin exam normal with the exception of: Maxwell point skin colored papules around nose and mouth, extending onto cheeks Poor video quality ASSESSMENT AND PLAN: Periorificial dermatitis - We discussed the etiology and natural history of this condition. - Discussed how this can be related to new toothpastes, mouth washes or cosmetics and most importantly topical or inhaled steroids. - Prescribed topical metronidazole once daily. Side effects reviewed. - Recommend daily use of gentle emollient and avoidance of topical steroids, which may temporarily improve the problem but ultimately cause its propagation. - Prescribed tacrolimus (Protopic) 0.03% ointment once daily on the face Patient verbalizes understanding and agrees with treatment plan and will contact us with any further questions or concerns. Return to clinic 2 mos or sooner for any change in/worsening of condition or if any new/changing/symptomatic lesions arise. [employer] Machine Setter Attestation: The documentation for this note was completed by Lou Chowdary Ma acting as scribe for Vanna Aleman MD. December 10, 2022 4:46 PM. I have communicated my name and active licensure. The patient's identity and physical location were verified at the time of this visit. Either the patient or their legal independent sales representative has been informed of the risks and benefits of -- and alternatives to -- treatment through a remote evaluation and consents to proceed with the evaluation remotely. I agree with the Chief Complaint, ROS, and Past Histories independently gathered by the clinical health support specialist and the remaining scribed note accurately describes my personal service to the patient. Vanna Aleman MD [facility] 12-11-2022 History of Present illness Narrative [facility] Department of Dermatology VIRTUAL VISIT PROGRESS NOTE This is a virtual visit. It required patient-provider interaction for the medical decision making as documented below. This visit was completed via [employer]. Discussed with patient limitations of virtual software with assessment of skin disease/lesions. Pt acknowledged and consented to visit. Chief Complaint: rash Date of last visit to [facility] Dermatology: new patient History of Present Illness: Polina Alejandre is a 22 year old female Patient is here for: # 1 Rash Location: face- mouth an dnose Duration: 6-8 wks Symptoms (growing, itching, bleeding, tender): dry itching and tender Current Treatments: n/a Past Treatments: Bactroban, ketoconazole, hydrocortizone Patient thought it was a chapstick/face cream but rash got worse Was started on mupirocin but that didn't help Then started on ketoconazole/HC which made it worse PERTINENT PAST DERMATOLOGIC HISTORY: -Personal History of Skin Cancer: No -Personal History of Atypical Moles: No -Personal History of Extensive Sun Exposure/Blistering Sunburns:No -History of tanning bed usage: No -Does patient use sunscreen Yes -Is the patient immunosuppressed: No FAMILY HISTORY: -Family History of Skin Cancer: No VIDEO EXAM: -General: well appearing, in no acute distress -Neurology: alert and oriented times three -Psychiatry: appropriate mood/affect Skin: Zhou phototype: I Skin exam performed of Face, Neck, Skin exam normal with the exception of: Maxwell point skin colored papules around nose and mouth, extending onto cheeks Poor video quality ASSESSMENT AND PLAN: Periorificial dermatitis - We discussed the etiology and natural history of this condition. - Discussed how this can be related to new toothpastes, mouth washes or cosmetics and most importantly topical or inhaled steroids. - Prescribed topical metronidazole once daily. Side effects reviewed. - Recommend daily use of gentle emollient and avoidance of topical steroids, which may temporarily improve the problem but ultimately cause its propagation. - Prescribed tacrolimus (Protopic) 0.03% ointment once daily on the face Patient verbalizes understanding and agrees with treatment plan and will contact us with any further questions or concerns. Return to clinic 2 mos or sooner for any change in/worsening of condition or if any new/changing/symptomatic lesions arise. Fl[employer] Machine Setter Attestation: The documentation for this note was completed by Lou Chowdary Ma acting as scribe for Vanna Aleman MD. December 10, 2022 4:46 PM. I have communicated my name and active licensure. The patient's identity and physical location were verified at the time of this visit. Either the patient or their legal independent sales representative has been informed of the risks and benefits of -- and alternatives to -- treatment through a remote evaluation and consents to proceed with the evaluation remotely. I agree with the Chief Complaint, ROS, and Past Histories independently gathered by the clinical health support specialist and the remaining scribed note accurately describes my personal service to the patient. Vanna Aleman MD documented in this encounter [facility] 12-04-2022 Note HNO ID: [id number] Author: Clifford Valenzuela DPM Service: ? Author Type: Physician Type: Progress Notes Filed: 12/04/2022 3:50 PM Note Text: DOS: 10/25/22 POD: 40 POV: 2 Procedure: Correction of hammertoes 2-5 right foot This 22 year old female presents for a post op visit. Patient states they are doing well. Pain is well controlled by ibuprofen. Has been icing and elevating the extremity as instructed preoperatively and has been partial weightbearing to the right lower extremity. Denies any current nausea, vomiting, fever, chills, shortness of breath, chest pain or calf pain. Patient reports she had complications since having anesthesia. She reports having post anesthesia ileus and gastritis. She reports being hospitalized and was discharged yesterday. She also reports elevated liver enzymes that was thought to be caused by Tylenol use. Denies any other pedal complaints. 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) off AEDs since 2018 GERD (gastroesophageal reflux disease) Hypertension 04/11/2020 Mild intermittent asthma without complication MT (mallet toe), right Narcolepsy without cataplexy Nonallergic rhinitis PMH - PAST MEDICAL HISTORY OF seizure POTS (postural orthostatic tachycardia syndrome) Current Outpatient Medications Medication Sig hydrocortisone 2.5 % cream Apply 1 application to affected area once daily for 14 days. TO AFFECTED AREA. ketoconazole (NIZORAL) 2 % cream Apply to affected area twice daily for 14 days. APPLY TO AFFECTED AREA albuterol HFA (PROVENTIL HFA, VENTOLIN HFA) 90 mcg/actuation inhaler Inhale 2 Puffs as instructed every 4 hours as needed. methylphenidate ER 18 mg tablet Take 1 tablet by mouth every morning for 30 days. [START ON 01/18/2023] methylphenidate ER 18 mg tablet Take 1 tablet by mouth every morning for 30 days. Do not start before January 18, 2023. [START ON 12/20/2022] methylphenidate ER 18 mg tablet Take 1 tablet by mouth every morning for 30 days. Do not start before December 20, 2022. loratadine (CLARITIN) 10 mg tablet Take 10 mg by mouth once daily. propranolol (INDERAL) 20 mg tablet Take 1 tablet by mouth three times daily. MULTIVITAMIN ORAL Take by mouth once daily. pantoprazole DR (PROTONIX) 40 mg tablet Take 1 tablet by mouth DAILY (6 AM). No current facility-administered medications for this visit. ALLERGIES Allergen Reactions Compazine [Prochlor* Intolerance Restlessness, agitation Hydrocodone-Acetami* Swelling Latex Swelling Omnicef [Cefdinir] Swelling Versed [Midazolam H* Mental Status Change Pulling out IV's, extremely confused and restless, getting on hands and knees Penicillins Rash Gluten GI Upset Objective: Patient presents partial weightbearing to right leg. Dressing is dry, clean, and intact with normal strike through noted. Problem focus examination to the right lower extremity: Incision site is well coapted without evidence of dehiscence. Mild erythema and edema surrounding surgical site. No drainage. No lymphadenopathy. No lymphangitis. No surrounding cellulitis. No signs of infection. Patient has no pain to palpation of calf. The calf is soft, supple and nontender without evidence of DVT. Negative Joan's test. Satisfactory alignment is noted. Pedal pulses are palpable. Capillary refill time is less than three seconds to all digits. Sensations are intact to light touch. Toes 2,3,4 purchase ground on weightbearing with appropriate clinical alignment maintained. No pain to palpation of digits. 12/04/22: right foot radiographs (three views: AP/MO/lateral; weight-bearing) were performed and examined today. Personal radiographic evaluation: Status post claw toe correction of digits 2,3,4. Stable post-operative appearance. Hardware in normal position without evidence of failure or loosening. Position maintained. No acute destructive changes. No gas in the soft tissues. Assessment: Satisfactory post-operative progress Plan: The patient was educated on clinical examination findings, postoperative prognosis and protocol. All questions were answered to patient's apparent satisfaction. - WBAT in regular shoe gear - Activity as tolerated. No restrictions. Follow up in 6 weeks. Natalia Espinoza DPM PGY-3 I personally saw and evaluated the patient. I reviewed the resident's note. I agree with the resident's assessment and plan unless otherwise noted. Clifford Valenzuela DPM, [facility] 12-04-2022 History of Present illness Narrative DOS: 10/25/22 POD: 40 POV: 2 Procedure: Correction of hammertoes 2-5 right foot This 22 year old female presents for a post op visit. Patient states they are doing well. Pain is well controlled by ibuprofen. Has been icing and elevating the extremity as instructed preoperatively and has been partial weightbearing to the right lower extremity. Denies any current nausea, vomiting, fever, chills, shortness of breath, chest pain or calf pain. Patient reports she had complications since having anesthesia. She reports having post anesthesia ileus and gastritis. She reports being hospitalized and was discharged yesterday. She also reports elevated liver enzymes that was thought to be caused by Tylenol use. Denies any other pedal complaints. 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) off AEDs since 2018 GERD (gastroesophageal reflux disease) Hypertension 04/11/2020 Mild intermittent asthma without complication MT (mallet toe), right Narcolepsy without cataplexy Nonallergic rhinitis PMH - PAST MEDICAL HISTORY OF seizure POTS (postural orthostatic tachycardia syndrome) Current Outpatient Medications Medication Sig hydrocortisone 2.5 % cream Apply 1 application to affected area once daily for 14 days. TO AFFECTED AREA. ketoconazole (NIZORAL) 2 % cream Apply to affected area twice daily for 14 days. APPLY TO AFFECTED AREA albuterol HFA (PROVENTIL HFA, VENTOLIN HFA) 90 mcg/actuation inhaler Inhale 2 Puffs as instructed every 4 hours as needed. methylphenidate ER 18 mg tablet Take 1 tablet by mouth every morning for 30 days. [START ON 01/18/2023] methylphenidate ER 18 mg tablet Take 1 tablet by mouth every morning for 30 days. Do not start before January 18, 2023. [START ON 12/20/2022] methylphenidate ER 18 mg tablet Take 1 tablet by mouth every morning for 30 days. Do not start before December 20, 2022. loratadine (CLARITIN) 10 mg tablet Take 10 mg by mouth once daily. propranolol (INDERAL) 20 mg tablet Take 1 tablet by mouth three times daily. MULTIVITAMIN ORAL Take by mouth once daily. pantoprazole DR (PROTONIX) 40 mg tablet Take 1 tablet by mouth DAILY (6 AM). No current facility-administered medications for this visit. ALLERGIES Allergen Reactions Compazine [Prochlor* Intolerance Restlessness, agitation Hydrocodone-Acetami* Swelling Latex Swelling Omnicef [Cefdinir] Swelling Versed [Midazolam H* Mental Status Change Pulling out IV's, extremely confused and restless, getting on hands and knees Penicillins Rash Gluten GI Upset Objective: Patient presents partial weightbearing to right leg. Dressing is dry, clean, and intact with normal strike through noted. Problem focus examination to the right lower extremity: Incision site is well coapted without evidence of dehiscence. Mild erythema and edema surrounding surgical site. No drainage. No lymphadenopathy. No lymphangitis. No surrounding cellulitis. No signs of infection. Patient has no pain to palpation of calf. The calf is soft, supple and nontender without evidence of DVT. Negative Joan's test. Satisfactory alignment is noted. Pedal pulses are palpable. Capillary refill time is less than three seconds to all digits. Sensations are intact to light touch. Toes 2,3,4 purchase ground on weightbearing with appropriate clinical alignment maintained. No pain to palpation of digits. 12/04/22: right foot radiographs (three views: AP/MO/lateral; weight-bearing) were performed and examined today. Personal radiographic evaluation: Status post claw toe correction of digits 2,3,4. Stable post-operative appearance. Hardware in normal position without evidence of failure or loosening. Position maintained. No acute destructive changes. No gas in the soft tissues. Assessment: Satisfactory post-operative progress Plan: The patient was educated on clinical examination findings, postoperative prognosis and protocol. All questions were answered to patient's apparent satisfaction. - WBAT in regular shoe gear - Activity as tolerated. No restrictions. Follow up in 6 weeks. Natalia Espinoza DPM PGY-3 I personally saw and evaluated the patient. I reviewed the resident's note. I agree with the resident's assessment and plan unless otherwise noted. Clifford Valenzuela DPM, FACFAS documented in this encounter [facility] 12-03-2022 Note HNO ID: [id number] Author: Zoran Beasley APRN.INDUSTRIAL RENDERER Service: ? Author Type: Nurse Practitioner Type: Progress Notes Filed: 12/03/2022 3:37 PM Note Text: Polina Alejandre is a 22 year old female. Patient presents with: Follow Up Today I had the opportunity to have a virtual visit with Polina Alejandre I have communicated my name and active licensure. The patient's identity and physical location were verified at the time of this visit. Either the patient or their legal independent sales representative has been informed of the risks and benefits of -- and alternatives to -- treatment through a remote evaluation and consents to proceed with the evaluation remotely. Polina is here today for follow up of POTS. After our last visit in December 2020, we reviewed her propranolol 20 mg three times daily. She noted at that time that she had good control of her tachycardia and headaches. She remains on propranolol 20 mg three times daily and is tolerating it without any issues. She notes that she continues to deal well with her POTS. No significant issues of dizziness, lightheadedness, tachycardia, or near syncope. She is also focused on increasing her water intake and sodium intake. She notes this has been helping her tremendously. She does note that has been trying to utilize compression stockings. She reports significant leg pain after taking off the compression stockings. I told her not to utilize them if they are causing pain. Medications Reviewed hydrocortisone 2.5 % cream Apply 1 application to affected area once daily for 14 days. TO AFFECTED AREA. ketoconazole (NIZORAL) 2 % cream Apply to affected area twice daily for 14 days. APPLY TO AFFECTED AREA albuterol HFA (PROVENTIL HFA, VENTOLIN HFA) 90 mcg/actuation inhaler Inhale 2 Puffs as instructed every 4 hours as needed. methylphenidate ER 18 mg tablet Take 1 tablet by mouth every morning for 30 days. [START ON 01/18/2023] methylphenidate ER 18 mg tablet Take 1 tablet by mouth every morning for 30 days. Do not start before January 18, 2023. [START ON 12/20/2022] methylphenidate ER 18 mg tablet Take 1 tablet by mouth every morning for 30 days. Do not start before December 20, [address]22. pantoprazole DR (PROTONIX) 40 mg tablet Take 1 tablet by mouth DAILY (6 AM). loratadine (CLARITIN) 10 mg tablet Take 10 mg by mouth once daily. propranolol (INDERAL) 20 mg tablet Take 1 tablet by mouth three times daily. MULTIVITAMIN ORAL Take by mouth once daily. 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 History of Penicillin Allergy Urticaria Due to Drug Allergy Adverse Effect of Cephalosporins and Other Beta-Lactam Antibiotics, Initial Encounter Seasonal Allergic Rhinitis Due to Pollen Migraine Without Aura and Without Status Migrainosus, Not Intractable Elevated Blood Pressure Reading Without Diagnosis of Hypertension Pre-Op Examination Gerd (Gastroesophageal Reflux Disease) Mild Intermittent Asthma Without Complication Pots (Postural Orthostatic Tachycardia Syndrome) Delayed Emergence From Anesthesia Epilepsy (Hcc) Cyst of Right Ovary Drug-Induced Constipation Chronic Superficial Gastritis Without Bleeding PAST SURGICAL HISTORY Procedure Laterality Date DENTAL SURGERY HX 2012 Simple extraction of primary teeth #A, #B, #C, #H, #I, #J, #M, #N, and #R. EGD 2019 FOOT SURGERY HX Right 10/25/2022 OSTECTOMY TARSAL COALITION Right 04/06/2015 [facility] PAST SURGICAL HISTORY OF 11/21/2003 tear duct surgery bilateral PAST SURGICAL HISTORY OF 05/2022 Correction of second, third, and fourth toes, left foot REMOVE TONSIL AND ADENOI UNDER AGE 14 02/12/2010 Social History Tobacco Use Smoking status: Never Passive exposure: Never Smokeless tobacco: Never Vaping Use Vaping Use: Never used Substance Use Topics Alcohol use: No Drug use: No family history includes Allergies in her father, maternal grandfather, and maternal grandmother; Asthma in her brother; Heart in her maternal grandfather; Hypertension in her maternal grandfather. IMPRESSION/PLAN: POTS Doing well overall with conservative measures and utilization of propranolol 20 mg three times daily. She has limited postural dizziness, lightheadedness, tachycardia, near syncope. No change today. Conservative Measures Increased water intake (2-2.5 liters of water daily) Increased salt intake (3-5 grams daily) Compression stockings Exercise as tolerated Medication Changes -continue propranolol 20 mg three times daily -consider switching to propranolol 60 mg LA once daily Follow up annually. I spent a total of 8 minutes on the date of the service which included preparing to see the patient, [id number] patient care, completing clinical documentation, obtaining and/or reviewing separately obtained history, and counseling and educating the patient/family/caregiver. (more content not included)... [facility] 11-28-2022 Note HNO ID: [id number] Author: Gurdeep Christine MD Service: ? Author Type: Physician Type: Progress Notes Filed: 12/04/2022 12:17 PM Note Text: Chief complaint - rash above the lip (Since October 25, using mupirocin x 2 wks ago and it's not helping) SUBJECTIVE: Polina Alejandre 22 year old FEMALE for evaluation of rash above lip and around nose . RASH: present for 2 week(s) Location: face Characteristics: itchy/pruritic, red, and scaly Treatments: antibiotic ointment with partial relief of symptoms GENERAL: Activity level at child's baseline OBJECTIVE: Pulse 70 Temp 36.4 ?C (97.6 ?F) (Temporal) Resp 18 Wt 52.3 kg (115 lb 4 oz) LMP 11/08/2022 (Exact Date) BMI 21.08 kg/m? General: alert and active in no apparent distress Skin: (seborrhea) - nasolabial folds and above lips, redness and dryness present plaque-like lesions ASSESSMENT/PLAN: 1. Seborrheic dermatitis - ICD9: 690.10, ICD10: L21.9 - Skin care reviewed - HYDROCORTISONE 2.5 % TOPICAL CREAM - KETOCONAZOLE 2 % TOPICAL CREAM recheck 2 weeks Gurdeep Christine MD [facility] 11-28-2022 History of Present illness Narrative Chief complaint - rash above the lip (Since October 25, using mupirocin x 2 wks ago and it's not helping) SUBJECTIVE: Polina Alejandre 22 year old FEMALE for evaluation of rash above lip and around nose . RASH: present for 2 week(s) Location: face Characteristics: itchy/pruritic, red, and scaly Treatments: antibiotic ointment with partial relief of symptoms GENERAL: Activity level at child's baseline OBJECTIVE: Pulse 70 Temp 36.4 C (97.6 F) (Temporal) Resp 18 Wt 52.3 kg (115 lb 4 oz) LMP 11/08/2022 (Exact Date) BMI 21.08 kg/m General: alert and active in no apparent distress Skin: (seborrhea) - nasolabial folds and above lips, redness and dryness present plaque-like lesions ASSESSMENT/PLAN: 1. Seborrheic dermatitis - ICD9: 690.10, ICD10: L21.9 - Skin care reviewed - HYDROCORTISONE 2.5 % TOPICAL CREAM - KETOCONAZOLE 2 % TOPICAL CREAM recheck 2 weeks Gurdeep Christine MD documented in this encounter [facility] 11-20-2022 Note HNO ID: [id number] Author: Eileen Gutiérrez, DO Service: ? Author Type: Physician Type: Progress Notes Filed: 11/20/2022 10:08 AM Note Text: 22 year old here for hospital follow up for mid-epigastric abdominal pain. Pain has definitely decreased but is still present. Stooling 2-3 times daily with miralax every 2-3 days Taking protonix 40 mg. Getting MRI abdomen in December. Followed by GI in [place]( outside of [facility]). Does belch a lot, especially with dairy. Remains gluten free. Has has reduced her dairy intake. Doing well with narcolepsy with Concerta 18 mg. 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 Tympanic membranes clear with good landmarks. Pharynx pink and moist without exudates or erosions Neck: no adenopathy Lungs: Clear to auscultation with good air exchange. No grunting flaring or retractions Heart: Regular rate and rhythm with normal s1 S2 femoral pulses present Abdomen: Soft, tender to light palpation in mid epigastric area with good bowel sounds in all 4 quadrants. no hepatosplenomegaly Extremities: well perfused. Capillary refill less than 3 seconds Assess: abdominal pain- continue GI follow up. Will try trial of lactase enzyme Narcolepsy- continue Concerta 18 mg Eileen Gutiérrez DO [facility] 11-07-2022 Note HNO ID: [id number] Author: Clifford Valenzuela DPM Service: ? Author Type: Physician Type: Progress Notes Filed: 11/18/2022 12:43 PM Note Text: DOS: 10/25/22 POD: 12 POV: 1 Procedure: Correction of hammertoes 2-5 right foot This 22 year old female presents for a post op visit. Patient states they are doing well. Pain is well controlled by ibuprofen. Has been icing and elevating the extremity as instructed preoperatively and has been partial weightbearing to the right lower extremity. Denies any current nausea, vomiting, fever, chills, shortness of breath, chest pain or calf pain. Patient reports she had complications since having anesthesia. She reports having post anesthesia ileus and gastritis. She reports being hospitalized and was discharged yesterday. She also reports elevated liver enzymes that was thought to be caused by Tylenol use. Denies any other pedal complaints 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) off AEDs since 2017 GERD (gastroesophageal reflux disease) Hypertension 04/11/2020 Mild intermittent asthma without complication MT (mallet toe), right Narcolepsy without cataplexy Nonallergic rhinitis PMH - PAST MEDICAL HISTORY OF seizure POTS (postural orthostatic tachycardia syndrome) Current Outpatient Medications Medication Sig polyethylene glycol 3350 17 gram packet Take 1 Packet by mouth once daily as needed for constipation. Dissolve dose in 4 - 8 ounces of liquid and take as directed. pantoprazole DR (PROTONIX) 40 mg tablet Take 1 tablet by mouth DAILY (6 AM). ondansetron orally disintegrating (ZOFRAN ODT) 4 mg disintegrating tablet Take 1 tablet by mouth every 6 hours as needed. loratadine (CLARITIN) 10 mg tablet Take 10 mg by mouth once daily. [START ON 11/12/2022] methylphenidate ER 18 mg tablet Take 1 tablet by mouth every morning for 30 days. Do not start before November 12, 2022. propranolol (INDERAL) 20 mg tablet Take 1 tablet by mouth three times daily. MULTIVITAMIN ORAL Take by mouth once daily. albuterol HFA (PROVENTIL HFA, VENTOLIN HFA) 90 mcg/actuation inhaler Inhale 2 Puffs as instructed every 4 hours as needed. acetaminophen (TYLENOL) 325 mg tablet Take 2 tablets by mouth every 6 hours as needed. No current facility-administered medications for this visit. ALLERGIES Allergen Reactions Compazine [Prochlor* Intolerance Restlessness, agitation Hydrocodone-Acetami* Swelling Latex Swelling Omnicef [Cefdinir] Swelling Versed [Midazolam H* Mental Status Change Pulling out IV's, extremely confused and restless, getting on hands and knees Penicillins Rash Gluten GI Upset Objective: Patient presents partial weightbearing to right leg. Dressing is dry, clean, and intact with normal strike through noted. Problem focus examination to the right lower extremity: Incision site is well coapted without evidence of dehiscence. Mild erythema and edema surrounding surgical site. No drainage. No lymphadenopathy. No lymphangitis. No surrounding cellulitis. No signs of infection. Patient has no pain to palpation of calf. The calf is soft, supple and nontender without evidence of DVT. Negative Joan's test. Satisfactory alignment is noted. Pedal pulses are palpable. Capillary refill time is less than three seconds to all digits. Sensations are intact to light touch. Assessment: Satisfactory post-operative progress Plan: The patient was educated on clinical examination findings, postoperative prognosis and protocol. All questions were answered to patient's apparent satisfaction. - Bandage removed and new dressing applied. - Sutures were removed at today's visit and steri-strips applied overlying . - Patient to continue partial weightbearing to the operative extremity. Follow up 4 weeks. Jose Thomas DPM PGY-3 I personally saw and evaluated the patient. I reviewed the resident's note. I agree with the resident's assessment and plan unless otherwise noted. Clifford Valenzuela DPM, FACFAS [facility] 11-04-2022 Note HNO ID: [id number] Author: Hailey Mitchell MD Service: Hospital Medicine Author Type: Physician Type: Progress Notes Filed: 11/04/2022 2:28 PM Note Text: DEPARTMENT OF HOSPITAL MEDICINE PROGRESS NOTE SERVICE DATE: 11/04/2022 SERVICE TIME: 2:25 PM Hospital Medicine/Primary Attending: Hailey Mitchell MD NIGHT AND WEEKEND COVERAGE: [place] COVERAGE: Days: [phone], please page attending physician. Nights: [phone], please page [facility] Night coverage pager [phone]. Subjective INTERVAL HPI: Patient was seen and evaluated at bedside. Remained stable on clear liquid diet since yesterday, also had a bowel movement. Current Facility-Administered Medications Medication Dose Route Frequency propranolol 20 mg tab(s) (INDERAL) 20 mg ORAL TID NaCl 0.9% iv flush bag 20 mL INTRAVENOUS PRN ondansetron orally disintegrating 4 mg tab(s) (ZOFRAN ODT) 4 mg ORAL q 6 H PRN Or ondansetron (PF) 4 mg injection (ZOFRAN) 4 mg INTRAVENOUS q 6 H PRN methylphenidate ER 18 mg tab(s) 18 mg ORAL DAILY polyethylene glycol 3350 17 g packet 17 g ORAL DAILY pantoprazole DR 40 mg tab(s) (PROTONIX) 40 mg ORAL DAILY (6 AM) ibuprofen 200 mg tab(s) (MOTRIN) 200 mg ORAL q 6 H PRN albuterol 2.5 mg /3 mL (0.083 %) 2.5 mg (PROVENTIL) 2.5 mg INHALATION q 6 H PRN aluminum-magnesium hydroxide-simethicone 200-200-20 mg/5 mL 30 mL 30 mL ORAL q 6 H PRN keTORolac 15 mg injection (Toradol) 15 mg INTRAVENOUS q 6 H PRN hydrOXYzine HCl 20 mg tab(s) (ATARAX) 20 mg ORAL ONCE Objective PHYSICAL EXAM: BP 123/79 Pulse 96 Temp (Src) 98.1 (Oral) Resp 18 Ht 5' 2 (1.58m) Wt 120 lb (54.4kg) SpO2 100% LMP 10/06/2022 BMI 21.94 kg/(m2). O2 Therapy: Room Air Physical Exam Performed General: No distress, alert and oriented x3, Cardiac: S1 plus S2 regular rate and rhythm, no murmurs rubs or gallops Respiratory: No wheeze or crackles appreciated, equal air entry bilaterally GI/: Abdomen soft, nontender, bowel sounds audible Skin: Dressing on the right leg and foot Lines, Drains, and Airways Line Duration Peripheral 10/31/22 1557 Assessment Short Right Antecubital 20 Gauge 3 days DATA: Diagnostic tests reviewed for today's visit: LABS Recent Labs 11/04/22 0439 10/31/22 1259 10/30/222053 VPC2 -- -- 46 VPO2C -- -- <31* VBE -- -- 0 BICARB -- -- 26 CO2 27 < > 25 OXHGBVEN -- -- 30* CARBOXVENO -- -- <1.0 METHB -- -- 1.0 LACT -- -- 1.0 HGBB -- -- 15.3 [id number] -- -- RA=Room Air < > = values in this interval not displayed. No results for input(s): GLUCOSEPOC, GLB, POTASSIUM, KWBB, SODIUMPOC, NAB, CHLORIDEPOC, IONIZEDCA, ICAL, ICAPHCOR in the last 720 hours. Recent Labs 11/01/22 0414 10/31/22 1259 10/30/222053 WBC 4.59 7.20 8.50 RBC 4.10 4.67 5.17 HB 11.6 13.3 15.0 HCT 35.5* 40.2 43.7 MCV 86.6 86.1 84.5 MCH 28.3 28.5 29.0 MCHC 32.7 33.1 34.3 PLT 143* 193 199 MPV 10.3 10.0 9.7 NEUTP -- 75.1 79.8 ABSNEUT -- 5.41 6.79 LYMPHP -- 17.5 14.4 ABSLYMPH -- 1.26 1.22 MONOP -- 6.7 5.2 ABSMONO -- 0.48 0.44 EOSINP -- 0.0 0.0 ABSEOSIN -- <0.03 <0.03 BASOP -- 0.3 0.2 ABSBASO -- <0.03 <0.03 IMMGRAN -- 0.4 0.4 NRBC -- 0.0 0.0 ABNRBC <0.01 <0.01 <0.01 DTYPE -- Auto Auto Recent Labs 11/04/22 0439 11/03/22 1008 11/02/22 0435 11/01/22 0414 10/31/22 1849 10/31/22 1259 10/30/22 2054 NA 143 140 -- 141 -- < > 139 K 3.7 4.0 -- 4.0 -- < > 4.0 CHLOR 107* 105 -- 110* -- < > 102 CO2 27 25 -- 22 -- < > 25 ANION 9 10 -- 9 -- < > 12 BUN 6* 6* -- 11 -- < > 11 CREAT 0.81 0.74 -- 0.70 -- < > 0.68 EGFROTH 107 119 -- 127 -- < > 128 GLUC 96 99 -- 79 -- < > 104* CA 9.1 9.3 -- 9.0 -- < > 9.9 LACT -- -- -- -- -- -- 1.0 TPROT 6.1* -- 6.0* 5.9* 6.5 < > 7.8 ALB 4.2 -- 4.0 4.0 4.2 < > 5.0* ALKPHOS 77 -- 89 98 121 < > 178* TBILI 0.4 -- 0.5 0.5 0.5 < > 0.3 AST 18 -- 31 54* 84* < > 120* ALT 58* -- 95* 129* 164* < > 217* LIPASE -- -- -- -- 26 -- 22 < > = values in this interval not displayed. Estimated Creatinine Clearance: 87.6 mL/min (based on SCr of 0.81 mg/dL). Recent Labs 11/03/22 0918 11/02/22 1825 PCGLUCOSE 113* 87 No results for input(s): OSM, UNAR, UCR, PROTRAND, UCRR, PCRAT in the last 720 hours. Invalid input(s): UOS No results for input(s): CRP, ESR, WSR, LD, JOSE ARMANDO, TIBC, FE, SAT, APTT, PTSEC, INR, ANTITHROMBIN, DDMRQT in the last 720 hours. No results for input(s): HBA1C, CHOL, HDL, LDL, TG, PREALB, JOSE ARMANDO, TIBC, FE, SAT, HBA1C, TSHREFL, FREET3, FREET4 in the last 720 hours. No results for input(s): HSTNT, PBNP, TROPT, TROPI, DIGOXIN, PROCLT in the last 720 hours. Recent Labs 10/30/221 COLOR Yellow CLARITY Clear UPH 6.5 SPGR 1.020 UGLUC Negative UKET 1+* UPROT Negative UHB Negative UBILI Negative UROBILINOGEN 0.2 EU/dL URBC 0-3 /HPF NITRITES Negative LEUKEST Negative UWBC 0-5 /HPF UBACTERIA Few* UEPI Few No results for input(s): VANCORA in the last 720 hours. No results for in (more content not included)... [facility] 11-03-2022 Note HNO ID: [id number] Author: Hailey Mitchell MD Service: Hospital Medicine Author Type: Physician Type: Progress Notes Filed: 11/03/2022 3:16 PM Note Text: DEPARTMENT OF HOSPITAL MEDICINE PROGRESS NOTE SERVICE DATE: 11/03/2022 SERVICE TIME: 3:12 PM Hospital Medicine/Primary Attending: Hailey Mitchell MD NIGHT AND WEEKEND COVERAGE: [place] COVERAGE: Days: [phone], please page attending physician. Nights: [phone], please page [facility] Night coverage pager [phone]. Subjective INTERVAL HPI: Patient was seen and evaluated at bedside. Diet was advanced yesterday however patient was unable to tolerate it. Diet de-escalated to clear liquid diet. Patient did not have any further bowel movement since yesterday. Current Facility-Administered Medications Medication Dose Route Frequency propranolol 20 mg tab(s) (INDERAL) 20 mg ORAL TID NaCl 0.9% iv flush bag 20 mL INTRAVENOUS PRN ondansetron orally disintegrating 4 mg tab(s) (ZOFRAN ODT) 4 mg ORAL q 6 H PRN Or ondansetron (PF) 4 mg injection (ZOFRAN) 4 mg INTRAVENOUS q 6 H PRN methylphenidate ER 18 mg tab(s) 18 mg ORAL DAILY polyethylene glycol 3350 17 g packet 17 g ORAL DAILY pantoprazole DR 40 mg tab(s) (PROTONIX) 40 mg ORAL DAILY (6 AM) ibuprofen 200 mg tab(s) (MOTRIN) 200 mg ORAL q 6 H PRN albuterol 2.5 mg /3 mL (0.083 %) 2.5 mg (PROVENTIL) 2.5 mg INHALATION q 6 H PRN aluminum-magnesium hydroxide-simethicone 200-200-20 mg/5 mL 30 mL 30 mL ORAL q 6 H PRN Objective PHYSICAL EXAM: BP 105/58 Pulse 78 Temp (Src) 98.2 (Oral) Resp 16 Ht 5' 2 (1.58m) Wt 120 lb (54.4kg) SpO2 100% LMP 10/06/2022 BMI 21.94 kg/(m2). O2 Therapy: Room Air Physical Exam Performed General: No distress, alert and oriented x3, Cardiac: S1 plus S2 regular rate and rhythm, no murmurs rubs or gallops Respiratory: No wheeze or crackles appreciated, equal air entry bilaterally GI/: Abdomen soft, nontender, bowel sounds audible Skin: Dressing on the right leg and foot Lines, Drains, and Airways Line Duration Peripheral 10/31/22 1557 Assessment Short Right Antecubital 20 Gauge 2 days DATA: Diagnostic tests reviewed for today's visit: LABS Recent Labs 11/03/22 1008 10/31/22 1259 10/30/22 2054 VPC2 -- -- 46 VPO2C -- -- <31* VBE -- -- 0 BICARB -- -- 26 CO2 25 < > 25 OXHGBVEN -- -- 30* CARBOXVENO -- -- <1.0 METHB -- -- 1.0 LACT -- -- 1.0 HGBB -- -- 15.3 [id number] -- -- RA=Room Air < > = values in this interval not displayed. No results for input(s): GLUCOSEPOC, GLB, POTASSIUM, KWBB, SODIUMPOC, NAB, CHLORIDEPOC, IONIZEDCA, ICAL, ICAPHCOR in the last 720 hours. Recent Labs 11/01/22 0414 10/31/22 12510/30/222053 WBC 4.59 7.20 8.50 RBC 4.10 4.67 5.17 HB 11.6 13.3 15.0 HCT 35.5* 40.2 43.7 MCV 86.6 86.1 84.5 MCH 28.3 28.5 29.0 MCHC 32.7 33.1 34.3 PLT 143* 193 199 MPV 10.3 10.0 9.7 NEUTP -- 75.1 79.8 ABSNEUT -- 5.41 6.79 LYMPHP -- 17.5 14.4 ABSLYMPH -- 1.26 1.22 MONOP -- 6.7 5.2 ABSMONO -- 0.48 0.44 EOSINP -- 0.0 0.0 ABSEOSIN -- <0.03 <0.03 BASOP -- 0.3 0.2 ABSBASO -- <0.03 <0.03 IMMGRAN -- 0.4 0.4 NRBC -- 0.0 0.0 ABNRBC <0.01 <0.01 <0.01 DTYPE -- Auto Auto Recent Labs 11/03/22 1008 11/02/22 0435 11/01/22 0414 10/31/22 1849 10/31/22 1259 10/30/222053 NA 140 -- 141 -- 141 139 K 4.0 -- 4.0 -- 4.0 4.0 CHLOR 105 -- 110* -- 105 102 CO2 25 -- 22 -- 25 25 ANION 10 -- 9 -- 11 12 BUN 6* -- 11 -- 12 11 CREAT 0.74 -- 0.70 -- 0.75 0.68 EGFROTH 119 -- 127 -- 117 128 GLUC 99 -- 79 -- 89 104* CA 9.3 -- 9.0 -- 9.6 9.9 LACT -- -- -- -- -- 1.0 TPROT -- 6.0* 5.9* 6.5 7.0 7.8 ALB -- 4.0 4.0 4.2 4.6 5.0* ALKPHOS -- 89 98 121 134* 178* TBILI -- 0.5 0.5 0.5 0.4 0.3 AST -- 31 54* 84* 96* 120* ALT -- 95* 129* 164* 181* 217* LIPASE -- -- -- 26 -- 22 Estimated Creatinine Clearance: 95.9 mL/min (based on SCr of 0.74 mg/dL). Recent Labs 11/03/22 0918 11/02/22 1825 PCGLUCOSE 113* 87 No results for input(s): OSM, UNAR, UCR, PROTRAND, UCRR, PCRAT in the last 720 hours. Invalid input(s): UOS No results for input(s): CRP, ESR, WSR, LD, JOSE ARMANDO, TIBC, FE, SAT, APTT, PTSEC, INR, ANTITHROMBIN, DDMRQT in the last 720 hours. No results for input(s): HBA1C, CHOL, HDL, LDL, TG, PREALB, JOSE ARMANDO, TIBC, FE, SAT, HBA1C, TSHREFL, FREET3, FREET4 in the last 720 hours. No results for input(s): HSTNT, PBNP, TROPT, TROPI, DIGOXIN, PROCLT in the last 720 hours. Recent Labs 10/30/221 COLOR Yellow CLARITY Clear UPH 6.5 SPGR 1.020 UGLUC Negative UKET 1+* UPROT Negative UHB Negative UBILI Negative UROBILINOGEN 0.2 EU/dL URBC 0-3 /HPF NITRITES Negative LEUKEST Negative UWBC 0-5 /HPF UBACTERIA Few* UEPI Few No results for input(s): VANCORA in the last 720 hours. No results for input(s): ACETM, ALCO, SALICY, SALCO, UAMPP, UBARPP, BENZO, UMARI3, COCAINEMETUR, UALCH3, UOPIPP, UOXYC, UPCPPP, UPCP, UBENZ, UCOC2, UAMPH, UTHC, UOP (more content not included)... [facility] documented as of this encounter (statuses as of 11/09/2022) [facility] History of Past illness Narrative* Problem Noted Date Resolved Date RUQ pain 11/03/2022 11/05/2022 RUQ pain 10/31/2022 11/02/2022 Elevated transaminase level 10/31/202210/06 MT (mallet toe), right 10/25/2022 Mallet toe, acquired, left 05/29/202205/29 Lip swelling 04/24/2020 08/31/2020 Somatic symptom disorder, mild 04/12/2020 0 08/31/2020 Anxiety 04/12/2020 08/31/2020 Hypertension 04/11/2020 04/12/2020 Last Assessment & Plan: Assessment: Pt was Hypertensive in the ED. BP readings 149/96>152/96>124/76>113/71>134/83. Pt denied OCP, illicit drug use. Hyperthyroidism r/o thyroid tests negative, anxiety needs to be r/o Plan: -continue to closely monitor vitals, BP all four extremities; would repeat BP and blood glucose if patient has another episode -CK WNL; prior concern for myositis -Renal US WNL; appreciate nephrology consult -Possible somatization of anxiety; appreciate psychology recommendations - Ophthalmology consult for evaluation for papilledema given hypertensive episode and headache - Methylphenidate held d/t nephrology w/u and hypertension Acute intractable headache 04/10/202008/31 Last Assessment & Plan: Assessment: bilateral frontal CALLES associated with hypertension, tachycardia, and diaphoresis occurring several times per day, increasing in frequency for past 2- 3 months PLAN: - Tylenol prn for pain - Neurology consult for input regarding possibility of complex migraine with dysautonomia Cough 12/06/2016 01/06/2018 Habit cough 12/06/2016 01/06/2018 Attention deficit hyperactiv ity disorder (ADHD), predominantly inattentive type 07/15/2016 01/06/2018 Seizures 12/30/2015 07/12/2016 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 10/13/2014 08/15/2018 Acromioclavicular (joint) (ligament) sprain 05/0808/31/2020 Stress reaction 11/18/2013 08/31/2020 Stress reaction of bone 04/14/2013 08/31/19 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 07/15/2016 Viral Warts: hands: R thumb prox to DIP to prox nail fold and L 2nd & 3rd finger prox nail fold 08/19/2012 01/06/2018 Nausea and vomiting 07/03/2011 11/05/2022 Sleep disturbance 02/02/2011 10/13/2014 Academic problem 02/02/2011 08/31/2020 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 Recurrent acute tonsillitis 12/22/200903/2017 Epileptic grand mal status 01/18/200910/13 PSYMOTR EPIL W/O INT EPI 09/27/2008 015 Abnormality of gait 04/01/2008 07/15/2016 documented as of this encounter (statuses as of 11/18/2022) [facility] History of Past illness Narrative* Problem Noted Date Resolved Date RUQ pain 11/03/2022 11/05/2022 RUQ pain 10/31/2022 11/02/2022 Elevated transaminase level 10/31/202210/06 MT (mallet toe), right 10/25/2022 Mallet toe, acquired, left 05/29/202205/29 Lip swelling 04/24/2020 08/31/2020 Somatic symptom disorder, mild 04/12/2020 0 08/31/2020 Anxiety 04/12/2020 08/31/2020 Hypertension 04/11/2020 04/12/2020 Last Assessment & Plan: Assessment: Pt was Hypertensive in the ED. BP readings 149/96>152/96>124/76>113/71>134/83. Pt denied OCP, illicit drug use. Hyperthyroidism r/o thyroid tests negative, anxiety needs to be r/o Plan: -continue to closely monitor vitals, BP all four extremities; would repeat BP and blood glucose if patient has another episode -CK WNL; prior concern for myositis -Renal US WNL; appreciate nephrology consult -Possible somatization of anxiety; appreciate psychology recommendations - Ophthalmology consult for evaluation for papilledema given hypertensive episode and headache - Methylphenidate held d/t nephrology w/u and hypertension Acute intractable headache 04/10/202008/31 Last Assessment & Plan: Assessment: bilateral frontal CALLES associated with hypertension, tachycardia, and diaphoresis occurring several times per day, increasing in frequency for past 2- 3 months PLAN: - Tylenol prn for pain - Neurology consult for input regarding possibility of complex migraine with dysautonomia Cough 12/06/2016 01/06/2018 Habit cough 12/06/2016 01/06/2018 Attention deficit hyperactiv ity disorder (ADHD), predominantly inattentive type 07/15/2016 01/06/2018 Seizures 12/30/2015 07/12/2016 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 10/13/2014 08/15/2018 Acromioclavicular (joint) (ligament) sprain 05/0808/31/2020 Stress reaction 11/18/2013 08/31/2020 Stress reaction of bone 04/14/2013 08/31/19 21 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 07/15/2016 Viral Warts: hands: R thumb prox to DIP to prox nail fold and L 2nd & 3rd finger prox nail fold 08/19/2012 01/06/2018 Nausea and vomiting 07/03/2011 11/05/2022 Sleep disturbance 02/02/2011 10/13/2014 Academic problem 02/02/2011 08/31/2020 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 Recurrent acute tonsillitis 12/22/200903/2017 Epileptic grand mal status 01/18/200910/13 [facility] EPIL W/O INT EPI 09/27/2008 015 Abnormality of gait 04/01/2008 07/15/2016 documented as of this encounter (statuses as of 12/04/2022) [facility]04-[facility]-2023 History of Past illness Narrative* Problem Noted Date Resolved Date RUQ pain 11/03/2022 11/05/2022 RUQ pain 10/31/2022 11/02/2022 Elevated transaminase level 10/31/202210/06 MT (mallet toe), right 10/25/2022 04/21/202 3 Mallet toe, acquired, left 05/29/202205/29 Lip swelling 04/24/2020 08/31/2020 Somatic symptom disorder, mild 04/12/2020 0 08/31/2020 Anxiety 04/12/2020 08/31/2020 Hypertension 04/11/2020 04/12/2020 Last Assessment & Plan: Assessment: Pt was Hypertensive in the ED. BP readings 149/96>152/96>124/76>113/71>134/83. Pt denied OCP, illicit drug use. Hyperthyroidism r/o thyroid tests negative, anxiety needs to be r/o Plan: -continue to closely monitor vitals, BP all four extremities; would repeat BP and blood glucose if patient has another episode -CK WNL; prior concern for myositis -Renal US WNL; appreciate nephrology consult -Possible somatization of anxiety; appreciate psychology recommendations - Ophthalmology consult for evaluation for papilledema given hypertensive episode and headache - Methylphenidate held d/t nephrology w/u and hypertension Acute intractable headache 04/10/202008/31 Last Assessment & Plan: Assessment: bilateral frontal CALLES associated with hypertension, tachycardia, and diaphoresis occurring several times per day, increasing in frequency for past 2- 3 months PLAN: - Tylenol prn for pain - Neurology consult for input regarding possibility of complex migraine with dysautonomia Cough 12/06/2016 01/06/2018 Habit cough 12/06/2016 01/06/2018 Attention deficit hyperactiv ity disorder (ADHD), predominantly inattentive type 07/15/2016 01/06/2018 Seizures 12/30/2015 07/12/2016 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 10/13/2014 08/15/2018 Acromioclavicular (joint) (ligament) sprain 05/0808/31/2020 Stress reaction 11/18/2013 08/31/2020 Stress reaction of bone 04/14/2013 08/31/19 21 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 07/15/2016 Viral Warts: hands: R thumb prox to DIP to prox nail fold and L 2nd & 3rd finger prox nail fold 08/19/2012 01/06/2018 Nausea and vomiting 07/03/2011 11/05/2022 Sleep disturbance 02/02/2011 10/13/2014 Academic problem 02/02/2011 08/31/2020 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 Recurrent acute tonsillitis 12/22/200903/2017 Epileptic grand mal status 01/18/200910/13 [facility] EPIL W/O INT EPI 09/27/2008 015 Abnormality of gait 04/01/2008 07/15/2016 documented as of this encounter (statuses as of 12/05/2022) [facility]2023 History of Past illness Narrative* Problem Noted Date Resolved Date RUQ pain 11/03/2022 11/05/2022 RUQ pain 10/31/2022 11/02/2022 Elevated transaminase level 10/31/202210/06 MT (mallet toe), right 10/25/2022 Mallet toe, acquired, left 05/29/202205/29 Lip swelling 04/24/2020 08/31/2020 Somatic symptom disorder, mild 04/12/2020 0 08/31/2020 Anxiety 04/12/2020 08/31/2020 Hypertension 04/11/2020 04/12/2020 Last Assessment & Plan: Assessment: Pt was Hypertensive in the ED. BP readings 149/96>152/96>124/76>113/71>134/83. Pt denied OCP, illicit drug use. Hyperthyroidism r/o thyroid tests negative, anxiety needs to be r/o Plan: -continue to closely monitor vitals, BP all four extremities; would repeat BP and blood glucose if patient has another episode -CK WNL; prior concern for myositis -Renal US WNL; appreciate nephrology consult -Possible somatization of anxiety; appreciate psychology recommendations - Ophthalmology consult for evaluation for papilledema given hypertensive episode and headache - Methylphenidate held d/t nephrology w/u and hypertension Acute intractable headache 04/10/202008/31 Last Assessment & Plan: Assessment: bilateral frontal CALLES associated with hypertension, tachycardia, and diaphoresis occurring several times per day, increasing in frequency for past 2- 3 months PLAN: - Tylenol prn for pain - Neurology consult for input regarding possibility of complex migraine with dysautonomia Cough 12/06/2016 01/06/2018 Habit cough 12/06/2016 01/06/2018 Attention deficit hyperactiv ity disorder (ADHD), predominantly inattentive type 07/15/2016 01/06/2018 Seizures 12/30/2015 07/12/2016 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 10/13/2014 08/15/2018 Acromioclavicular (joint) (ligament) sprain 05/0808/31/2020 Stress reaction 11/18/2013 08/31/2020 Stress reaction of bone 04/14/2013 08/31/19 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 07/15/2016 Viral Warts: hands: R thumb prox to DIP to prox nail fold and L 2nd & 3rd finger prox nail fold 08/19/2012 01/06/2018 Nausea and vomiting 07/03/2011 11/05/2022 Sleep disturbance 02/02/2011 10/13/2014 Academic problem 02/02/2011 08/31/2020 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 Recurrent acute tonsillitis 12/22/200903/2017 Epileptic grand mal status 01/18/200910/13 [facility] EPIL W/O INT EPI 09/27/2008 015 Abnormality of gait 04/01/2008 07/15/2016 documented as of this encounter (statuses as of 12/09/2022) [facility]20[facility] History of Past illness Narrative* Problem Noted Date Resolved Date RUQ pain 11/03/2022 11/05/2022 RUQ pain 10/31/2022 11/02/2022 Elevated transaminase level 10/31/202210/06 MT (mallet toe), right 10/25/2022 Mallet toe, acquired, left 05/29/202205/29 Lip swelling 04/24/2020 08/31/2020 Somatic symptom disorder, mild 04/12/2020 0 08/31/2020 Anxiety 04/12/2020 08/31/2020 Hypertension 04/11/2020 04/12/2020 Last Assessment & Plan: Assessment: Pt was Hypertensive in the ED. BP readings 149/96>152/96>124/76>113/71>134/83. Pt denied OCP, illicit drug use. Hyperthyroidism r/o thyroid tests negative, anxiety needs to be r/o Plan: -continue to closely monitor vitals, BP all four extremities; would repeat BP and blood glucose if patient has another episode -CK WNL; prior concern for myositis -Renal US WNL; appreciate nephrology consult -Possible somatization of anxiety; appreciate psychology recommendations - Ophthalmology consult for evaluation for papilledema given hypertensive episode and headache - Methylphenidate held d/t nephrology w/u and hypertension Acute intractable headache 04/10/202008/31 Last Assessment & Plan: Assessment: bilateral frontal CALLES associated with hypertension, tachycardia, and diaphoresis occurring several times per day, increasing in frequency for past 2- 3 months PLAN: - Tylenol prn for pain - Neurology consult for input regarding possibility of complex migraine with dysautonomia Cough 12/06/2016 01/06/2018 Habit cough 12/06/2016 01/06/2018 Attention deficit hyperactiv ity disorder (ADHD), predominantly inattentive type 07/15/2016 01/06/2018 Seizures 12/30/2015 07/12/2016 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 10/13/2014 08/15/2018 Acromioclavicular (joint) (ligament) sprain 05/0808/31/2020 Stress reaction 11/18/2013 08/31/2020 Stress reaction of bone 04/14/2013 08/31/19 21 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 07/15/2016 Viral Warts: hands: R thumb prox to DIP to prox nail fold and L 2nd & 3rd finger prox nail fold 08/19/2012 01/06/2018 Nausea and vomiting 07/03/2011 11/05/2022 Sleep disturbance 02/02/2011 10/13/2014 Academic problem 02/02/2011 08/31/2020 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 Recurrent acute tonsillitis 12/22/200903/2017 Epileptic grand mal status 01/18/200910/13 [facility] EPIL W/O INT EPI 09/27/2008 015 Abnormality of gait 04/01/2008 07/15/2016 documented as of this encounter (statuses as of 12/11/2022) [facility] History of Past illness Narrative* Problem Noted Date Resolved Date RUQ pain 11/03/2022 11/05/2022 RUQ pain 10/31/2022 11/02/2022 Elevated transaminase level 10/31/202210/06 MT (mallet toe), right 10/25/2022 Mallet toe, acquired, left 05/29/202205/29 Lip swelling 04/24/2020 08/31/2020 Somatic symptom disorder, mild 04/12/2020 0 08/31/2020 Anxiety 04/12/2020 08/31/2020 Hypertension 04/11/2020 04/12/2020 Last Assessment & Plan: Assessment: Pt was Hypertensive in the ED. BP readings 149/96>152/96>124/76>113/71>134/83. Pt denied OCP, illicit drug use. Hyperthyroidism r/o thyroid tests negative, anxiety needs to be r/o Plan: -continue to closely monitor vitals, BP all four extremities; would repeat BP and blood glucose if patient has another episode -CK WNL; prior concern for myositis -Renal US WNL; appreciate nephrology consult -Possible somatization of anxiety; appreciate psychology recommendations - Ophthalmology consult for evaluation for papilledema given hypertensive episode and headache - Methylphenidate held d/t nephrology w/u and hypertension Acute intractable headache 04/10/202008/31 Last Assessment & Plan: Assessment: bilateral frontal CALLES associated with hypertension, tachycardia, and diaphoresis occurring several times per day, increasing in frequency for past 2- 3 months PLAN: - Tylenol prn for pain - Neurology consult for input regarding possibility of complex migraine with dysautonomia Cough 12/06/2016 01/06/2018 Habit cough 12/06/2016 01/06/2018 Attention deficit hyperactiv ity disorder (ADHD), predominantly inattentive type 07/15/2016 01/06/2018 Seizures 12/30/2015 07/12/2016 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 10/13/2014 08/15/2018 Acromioclavicular (joint) (ligament) sprain 05/0808/31/2020 Stress reaction 11/18/2013 08/31/2020 Stress reaction of bone 04/14/2013 08/31/19 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 07/15/2016 Viral Warts: hands: R thumb prox to DIP to prox nail fold and L 2nd & 3rd finger prox nail fold 08/19/2012 01/06/2018 Nausea and vomiting 07/03/2011 11/05/2022 Sleep disturbance 02/02/2011 10/13/2014 Academic problem 02/02/2011 08/31/2020 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 Recurrent acute tonsillitis 12/22/200903/2017 Epileptic grand mal status 01/18/200910/13 [facility] EPIL W/O INT EPI 09/27/2008 015 Abnormality of gait 04/01/2008 07/15/2016 documented as of this encounter (statuses as of 12/19/2022) [facility] History of Past illness Narrative* Problem Noted Date Diagnosed Date Resolved Date RUQ pain 11/03/2022 11/05/2022 RUQ pain 10/31/2022 11/02/2022 Elevated transaminase level 10/31/2022 11/02/2022 MT (mallet toe), right 10/25/202210/25 Mallet toe, acquired, left 05/29/2022 1 07/29/2021 Lip swelling 04/24/2020 08/31/2020 Somatic symptom disorder, mild 04/12/2020 08/31/2020 Anxiety 04/12/2020 08/31/2020 Hypertension 04/11/2020 04/12/2020 Last Assessment & Plan: Assessment: Pt was Hypertensive in the ED. BP readings 149/96>152/96>124/76>113/71>134/83. Pt denied OCP, illicit drug use. Hyperthyroidism r/o thyroid tests negative, anxiety needs to be r/o Plan: -continue to closely monitor vitals, BP all four extremities; would repeat BP and blood glucose if patient has another episode -CK WNL; prior concern for myositis -Renal US WNL; appreciate nephrology consult -Possible somatization of anxiety; appreciate psychology recommendations - Ophthalmology consult for evaluation for papilledema given hypertensive episode and headache - Methylphenidate held d/t nephrology w/u and hypertension Acute intractable headache 04/10/2020 0 08/31/2020 Last Assessment & Plan: Assessment: bilateral frontal CALLES associated with hypertension, tachycardia, and diaphoresis occurring several times per day, increasing in frequency for past 2- 3 months PLAN: - Tylenol prn for pain - Neurology consult for input regarding possibility of complex migraine with dysautonomia Cough 12/06/2016 01/06/2018 Habit cough 12/06/2016 01/06/2018 Attention deficit hyperactiv ity disorder (ADHD), predominantly inattentive type 07/15/2016 0 01/06/2018 Seizures 12/30/2015 07/12/2016 Partial epilepsy with impair ment of consciousness 10/13/2014 08/15/2018 Acromioclavicular (joint) (ligament) sprain 05/30/2014 08/31/2020 Stress reaction 11/18/2013 08/31/2020 Stress reaction of bone 04/14/201308/08 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 07/15/2016 Viral Warts: hands: R thumb prox to DIP to prox nail fold and L 2nd & 3rd finger prox nail fold 08/19/2012 01/06/2018 Nausea and vomiting 07/03/2011 11/06/19 23 Sleep disturbance 02/02/2011 10/13/2014 Academic problem 02/02/2011 08/31/2020 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 Recurrent acute tonsillitis 12/22/2009 07/15/2016 Epileptic grand mal status 01/18/2009 0 10/13/2014 [facility] EPIL W/O INT EPI 09/27/200803/2015 Abnormality of gait 04/01/2008 07/15/19 17 documented as of this encounter (statuses as of 01/18/2023) [facility]20[facility] History of Past illness Narrative* Problem Noted Date Diagnosed Date Resolved Date RUQ pain 11/03/2022 11/05/2022 RUQ pain 10/31/2022 11/02/2022 Elevated transaminase level 10/31/2022 11/02/2022 MT (mallet toe), right 10/25/202210/25 Mallet toe, acquired, left 05/29/2022 1 07/29/2021 Lip swelling 04/24/2020 08/31/2020 Somatic symptom disorder, mild 04/12/2020 08/31/2020 Anxiety 04/12/2020 08/31/2020 Hypertension 04/11/2020 04/12/2020 Last Assessment & Plan: Assessment: Pt was Hypertensive in the ED. BP readings 149/96>152/96>124/76>113/71>134/83. Pt denied OCP, illicit drug use. Hyperthyroidism r/o thyroid tests negative, anxiety needs to be r/o Plan: -continue to closely monitor vitals, BP all four extremities; would repeat BP and blood glucose if patient has another episode -CK WNL; prior concern for myositis -Renal US WNL; appreciate nephrology consult -Possible somatization of anxiety; appreciate psychology recommendations - Ophthalmology consult for evaluation for papilledema given hypertensive episode and headache - Methylphenidate held d/t nephrology w/u and hypertension Acute intractable headache 04/10/2020 0 08/31/2020 Last Assessment & Plan: Assessment: bilateral frontal CALLES associated with hypertension, tachycardia, and diaphoresis occurring several times per day, increasing in frequency for past 2- 3 months PLAN: - Tylenol prn for pain - Neurology consult for input regarding possibility of complex migraine with dysautonomia Cough 12/06/2016 01/06/2018 Habit cough 12/06/2016 01/06/2018 Attention deficit hyperactiv ity disorder (ADHD), predominantly inattentive type 07/15/2016 0 01/06/2018 Seizures 12/30/2015 07/12/2016 Partial epilepsy with impair ment of consciousness 10/13/2014 08/15/2018 Acromioclavicular (joint) (ligament) sprain 05/30/2014 08/31/2020 Stress reaction 11/18/2013 08/31/2020 Stress reaction of bone 04/14/201308/08 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 07/15/2016 Viral Warts: hands: R thumb prox to DIP to prox nail fold and L 2nd & 3rd finger prox nail fold 08/19/2012 01/06/2018 Nausea and vomiting 07/03/2011 11/06/19 Sleep disturbance 02/02/2011 10/13/2014 Academic problem 02/02/2011 08/31/2020 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 Recurrent acute tonsillitis 12/22/2009 07/15/2016 Epileptic grand mal status 01/18/2009 0 10/13/2014 [facility] EPIL W/O INT EPI 09/27/200803/2015 Abnormality of gait 04/01/2008 07/15/19 17 documented as of this encounter (statuses as of 01/20/2023) [facility] History of Past illness Narrative* Problem Noted Date Diagnosed Date Resolved Date RUQ pain 11/03/2022 11/05/2022 RUQ pain 10/31/2022 11/02/2022 Elevated transaminase level 10/31/2022 11/02/2022 MT (mallet toe), right 10/25/202210/25 Mallet toe, acquired, left 05/29/2022 1 07/29/2021 Lip swelling 04/24/2020 08/31/2020 Somatic symptom disorder, mild 04/12/2020 08/31/2020 Anxiety 04/12/2020 08/31/2020 Hypertension 04/11/2020 04/12/2020 Last Assessment & Plan: Assessment: Pt was Hypertensive in the ED. BP readings 149/96>152/96>124/76>113/71>134/83. Pt denied OCP, illicit drug use. Hyperthyroidism r/o thyroid tests negative, anxiety needs to be r/o Plan: -continue to closely monitor vitals, BP all four extremities; would repeat BP and blood glucose if patient has another episode -CK WNL; prior concern for myositis -Renal US WNL; appreciate nephrology consult -Possible somatization of anxiety; appreciate psychology recommendations - Ophthalmology consult for evaluation for papilledema given hypertensive episode and headache - Methylphenidate held d/t nephrology w/u and hypertension Acute intractable headache 04/10/2020 0 08/31/2020 Last Assessment & Plan: Assessment: bilateral frontal CALLES associated with hypertension, tachycardia, and diaphoresis occurring several times per day, increasing in frequency for past 2- 3 months PLAN: - Tylenol prn for pain - Neurology consult for input regarding possibility of complex migraine with dysautonomia Cough 12/06/2016 01/06/2018 Habit cough 12/06/2016 01/06/2018 Attention deficit hyperactiv ity disorder (ADHD), predominantly inattentive type 07/15/2016 0 01/06/2018 Seizures 12/30/2015 07/12/2016 Partial epilepsy with impair ment of consciousness 10/13/2014 08/15/2018 Acromioclavicular (joint) (ligament) sprain 05/30/2014 08/31/2020 Stress reaction 11/18/2013 08/31/2020 Stress reaction of bone 04/14/201308/08 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 07/15/2016 Viral Warts: hands: R thumb prox to DIP to prox nail fold and L 2nd & 3rd finger prox nail fold 08/19/2012 01/06/2018 Nausea and vomiting 07/03/2011 11/06/19 23 Sleep disturbance 02/02/2011 10/13/2014 Academic problem 02/02/2011 08/31/2020 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 Recurrent acute tonsillitis 12/22/2009 07/15/2016 Epileptic grand mal status 01/18/2009 0 10/13/2014 [facility] EPIL W/O INT EPI 09/27/200803/2015 Abnormality of gait 04/01/2008 07/15/19 17 documented as of this encounter (statuses as of 02/05/2023) [facility] History of Past illness Narrative* Problem Noted Date Diagnosed Date Resolved Date RUQ pain 11/03/2022 11/05/2022 RUQ pain 10/31/2022 11/02/2022 Elevated transaminase level 10/31/2022 11/02/2022 MT (mallet toe), right 10/25/202210/25 Mallet toe, acquired, left 05/29/2022 1 07/29/2021 Lip swelling 04/24/2020 08/31/2020 Somatic symptom disorder, mild 04/12/2020 08/31/2020 Anxiety 04/12/2020 08/31/2020 Hypertension 04/11/2020 04/12/2020 Last Assessment & Plan: Assessment: Pt was Hypertensive in the ED. BP readings 149/96>152/96>124/76>113/71>134/83. Pt denied OCP, illicit drug use. Hyperthyroidism r/o thyroid tests negative, anxiety needs to be r/o Plan: -continue to closely monitor vitals, BP all four extremities; would repeat BP and blood glucose if patient has another episode -CK WNL; prior concern for myositis -Renal US WNL; appreciate nephrology consult -Possible somatization of anxiety; appreciate psychology recommendations - Ophthalmology consult for evaluation for papilledema given hypertensive episode and headache - Methylphenidate held d/t nephrology w/u and hypertension Acute intractable headache 04/10/2020 0 08/31/2020 Last Assessment & Plan: Assessment: bilateral frontal CALLES associated with hypertension, tachycardia, and diaphoresis occurring several times per day, increasing in frequency for past 2- 3 months PLAN: - Tylenol prn for pain - Neurology consult for input regarding possibility of complex migraine with dysautonomia Cough 12/06/2016 01/06/2018 Habit cough 12/06/2016 01/06/2018 Attention deficit hyperactiv ity disorder (ADHD), predominantly inattentive type 07/15/2016 0 01/06/2018 Seizures 12/30/2015 07/12/2016 Partial epilepsy with impair ment of consciousness 10/13/2014 08/15/2018 Acromioclavicular (joint) (ligament) sprain 05/30/2014 08/31/2020 Stress reaction 11/18/2013 08/31/2020 Stress reaction of bone 04/14/201308/08 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 07/15/2016 Viral Warts: hands: R thumb prox to DIP to prox nail fold and L 2nd & 3rd finger prox nail fold 08/19/2012 01/06/2018 Nausea and vomiting 07/03/2011 11/06/19 23 Sleep disturbance 02/02/2011 10/13/2014 Academic problem 02/02/2011 08/31/2020 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 Recurrent acute tonsillitis 12/22/2009 07/15/2016 Epileptic grand mal status 01/18/2009 0 10/13/2014 [facility] EPIL W/O INT EPI 09/27/200803/2015 Abnormality of gait 04/01/2008 07/15/19 17 documented as of this encounter (statuses as of 02/27/2023) [facility] History of Past illness Narrative* Problem Noted Date Diagnosed Date Resolved Date RUQ pain 11/03/2022 11/05/2022 RUQ pain 10/31/2022 11/02/2022 Elevated transaminase level 10/31/2022 11/02/2022 MT (mallet toe), right 10/25/202210/25 Mallet toe, acquired, left 05/29/2022 1 07/29/2021 Lip swelling 04/24/2020 08/31/2020 Somatic symptom disorder, mild 04/12/2020 08/31/2020 Anxiety 04/12/2020 08/31/2020 Hypertension 04/11/2020 04/12/2020 Last Assessment & Plan: Assessment: Pt was Hypertensive in the ED. BP readings 149/96>152/96>124/76>113/71>134/83. Pt denied OCP, illicit drug use. Hyperthyroidism r/o thyroid tests negative, anxiety needs to be r/o Plan: -continue to closely monitor vitals, BP all four extremities; would repeat BP and blood glucose if patient has another episode -CK WNL; prior concern for myositis -Renal US WNL; appreciate nephrology consult -Possible somatization of anxiety; appreciate psychology recommendations - Ophthalmology consult for evaluation for papilledema given hypertensive episode and headache - Methylphenidate held d/t nephrology w/u and hypertension Acute intractable headache 04/10/2020 0 08/31/2020 Last Assessment & Plan: Assessment: bilateral frontal CALLES associated with hypertension, tachycardia, and diaphoresis occurring several times per day, increasing in frequency for past 2- 3 months PLAN: - Tylenol prn for pain - Neurology consult for input regarding possibility of complex migraine with dysautonomia Cough 12/06/2016 01/06/2018 Habit cough 12/06/2016 01/06/2018 Attention deficit hyperactiv ity disorder (ADHD), predominantly inattentive type 07/15/2016 0 01/06/2018 Seizures 12/30/2015 07/12/2016 Partial epilepsy with impair ment of consciousness 10/13/2014 08/15/2018 Acromioclavicular (joint) (ligament) sprain 05/30/2014 08/31/2020 Stress reaction 11/18/2013 08/31/2020 Stress reaction of bone 04/14/201308/08 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 07/15/2016 Viral Warts: hands: R thumb prox to DIP to prox nail fold and L 2nd & 3rd finger prox nail fold 08/19/2012 01/06/2018 Nausea and vomiting 07/03/2011 11/06/19 23 Sleep disturbance 02/02/2011 10/13/2014 Academic problem 02/02/2011 08/31/2020 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 Recurrent acute tonsillitis 12/22/2009 07/15/2016 Epileptic grand mal status 01/18/2009 0 10/13/2014 [facility] EPIL W/O INT EPI 09/27/200803/2015 Abnormality of gait 04/01/2008 07/15/19 17 documented as of this encounter (statuses as of 02/27/2023) [facility] History of Past illness Narrative* Problem Noted Date Diagnosed Date Resolved Date RUQ pain 11/03/2022 11/05/2022 RUQ pain 10/31/2022 11/02/2022 Elevated transaminase level 10/31/2022 11/02/2022 MT (mallet toe), right 10/25/202210/25 Mallet toe, acquired, left 05/29/2022 1 07/29/2021 Lip swelling 04/24/2020 08/31/2020 Somatic symptom disorder, mild 04/12/2020 08/31/2020 Anxiety 04/12/2020 08/31/2020 Hypertension 04/11/2020 04/12/2020 Last Assessment & Plan: Assessment: Pt was Hypertensive in the ED. BP readings 149/96>152/96>124/76>113/71>134/83. Pt denied OCP, illicit drug use. Hyperthyroidism r/o thyroid tests negative, anxiety needs to be r/o Plan: -continue to closely monitor vitals, BP all four extremities; would repeat BP and blood glucose if patient has another episode -CK WNL; prior concern for myositis -Renal US WNL; appreciate nephrology consult -Possible somatization of anxiety; appreciate psychology recommendations - Ophthalmology consult for evaluation for papilledema given hypertensive episode and headache - Methylphenidate held d/t nephrology w/u and hypertension Acute intractable headache 04/10/2020 0 08/31/2020 Last Assessment & Plan: Assessment: bilateral frontal CALLES associated with hypertension, tachycardia, and diaphoresis occurring several times per day, increasing in frequency for past 2- 3 months PLAN: - Tylenol prn for pain - Neurology consult for input regarding possibility of complex migraine with dysautonomia Cough 12/06/2016 01/06/2018 Habit cough 12/06/2016 01/06/2018 Attention deficit hyperactiv ity disorder (ADHD), predominantly inattentive type 07/15/2016 0 01/06/2018 Seizures 12/30/2015 07/12/2016 Partial epilepsy with impair ment of consciousness 10/13/2014 08/15/2018 Acromioclavicular (joint) (ligament) sprain 05/30/2014 08/31/2020 Stress reaction 11/18/2013 08/31/2020 Stress reaction of bone 04/14/201308/08 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 07/15/2016 Viral Warts: hands: R thumb prox to DIP to prox nail fold and L 2nd & 3rd finger prox nail fold 08/19/2012 01/06/2018 Nausea and vomiting 07/03/2011 11/06/19 23 Sleep disturbance 02/02/2011 10/13/2014 Academic problem 02/02/2011 08/31/2020 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 Recurrent acute tonsillitis 12/22/2009 07/15/2016 Epileptic grand mal status 01/18/2009 0 10/13/2014 PSYMOTR EPIL W/O INT EPI 09/27/200803/2015 Abnormality of gait 04/01/2008 07/15/19 17 documented as of this encounter (statuses as of 05/11/2023) [facility]04-30-2023 History of Past illness Narrative* Problem Noted Date Diagnosed Date Resolved Date RUQ pain 11/03/2022 11/05/2022 RUQ pain 10/31/2022 11/02/2022 Elevated transaminase level 10/31/2022 11/02/2022 MT (mallet toe), right 10/25/202210/25 Mallet toe, acquired, left 05/29/2022 1 07/29/2021 Lip swelling 04/24/2020 08/31/2020 Somatic symptom disorder, mild 04/12/2020 08/31/2020 Anxiety 04/12/2020 08/31/2020 Hypertension 04/11/2020 04/12/2020 Last Assessment & Plan: Assessment: Pt was Hypertensive in the ED. BP readings 149/96>152/96>124/76>113/71>134/83. Pt denied OCP, illicit drug use. Hyperthyroidism r/o thyroid tests negative, anxiety needs to be r/o Plan: -continue to closely monitor vitals, BP all four extremities; would repeat BP and blood glucose if patient has another episode -CK WNL; prior concern for myositis -Renal US WNL; appreciate nephrology consult -Possible somatization of anxiety; appreciate psychology recommendations - Ophthalmology consult for evaluation for papilledema given hypertensive episode and headache - Methylphenidate held d/t nephrology w/u and hypertension Acute intractable headache 04/10/2020 0 08/31/2020 Last Assessment & Plan: Assessment: bilateral frontal CALLES associated with hypertension, tachycardia, and diaphoresis occurring several times per day, increasing in frequency for past 2- 3 months PLAN: - Tylenol prn for pain - Neurology consult for input regarding possibility of complex migraine with dysautonomia Cough 12/06/2016 01/06/2018 Habit cough 12/06/2016 01/06/2018 Attention deficit hyperactiv ity disorder (ADHD), predominantly inattentive type 07/15/2016 0 01/06/2018 Seizures 12/30/2015 07/12/2016 Partial epilepsy with impair ment of consciousness 10/13/2014 08/15/2018 Acromioclavicular (joint) (ligament) sprain 05/30/2014 08/31/2020 Stress reaction 11/18/2013 08/31/2020 Stress reaction of bone 04/14/201308/08 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 07/15/2016 Viral Warts: hands: R thumb prox to DIP to prox nail fold and L 2nd & 3rd finger prox nail fold 08/19/2012 01/06/2018 Nausea and vomiting 07/03/2011 11/06/19 23 Sleep disturbance 02/02/2011 10/13/2014 Academic problem 02/02/2011 08/31/2020 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 Recurrent acute tonsillitis 12/22/2009 07/15/2016 Epileptic grand mal status 01/18/2009 0 10/13/2014 PSYMOTR EPIL W/O INT EPI 09/27/200803/2015 Abnormality of gait 04/01/2008 07/15/19 17 documented as of this encounter (statuses as of 05/20/2023) [facility]04-30-2023 History of Past illness Narrative* Problem Noted Date Diagnosed Date Resolved Date RUQ pain 11/03/2022 11/05/2022 RUQ pain 10/31/2022 11/02/2022 Elevated transaminase level 10/31/2022 11/02/2022 MT (mallet toe), right 10/25/202210/25 Mallet toe, acquired, left 05/29/2022 1 07/29/2021 Lip swelling 04/24/2020 08/31/2020 Somatic symptom disorder, mild 04/12/2020 08/31/2020 Anxiety 04/12/2020 08/31/2020 Hypertension 04/11/2020 04/12/2020 Last Assessment & Plan: Assessment: Pt was Hypertensive in the ED. BP readings 149/96>152/96>124/76>113/71>134/83. Pt denied OCP, illicit drug use. Hyperthyroidism r/o thyroid tests negative, anxiety needs to be r/o Plan: -continue to closely monitor vitals, BP all four extremities; would repeat BP and blood glucose if patient has another episode -CK WNL; prior concern for myositis -Renal US WNL; appreciate nephrology consult -Possible somatization of anxiety; appreciate psychology recommendations - Ophthalmology consult for evaluation for papilledema given hypertensive episode and headache - Methylphenidate held d/t nephrology w/u and hypertension Acute intractable headache 04/10/2020 0 08/31/2020 Last Assessment & Plan: Assessment: bilateral frontal CALLES associated with hypertension, tachycardia, and diaphoresis occurring several times per day, increasing in frequency for past 2- 3 months PLAN: - Tylenol prn for pain - Neurology consult for input regarding possibility of complex migraine with dysautonomia Cough 12/06/2016 01/06/2018 Habit cough 12/06/2016 01/06/2018 Attention deficit hyperactiv ity disorder (ADHD), predominantly inattentive type 07/15/2016 0 01/06/2018 Seizures 12/30/2015 07/12/2016 Partial epilepsy with impair ment of consciousness 10/13/2014 08/15/2018 Acromioclavicular (joint) (ligament) sprain 05/30/2014 08/31/2020 Stress reaction 11/18/2013 08/31/2020 Stress reaction of bone 04/14/201308/08 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 07/15/2016 Viral Warts: hands: R thumb prox to DIP to prox nail fold and L 2nd & 3rd finger prox nail fold 08/19/2012 01/06/2018 Nausea and vomiting 07/03/2011 11/06/19 23 Sleep disturbance 02/02/2011 10/13/2014 Academic problem 02/02/2011 08/31/2020 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 Recurrent acute tonsillitis 12/22/2009 07/15/2016 Epileptic grand mal status 01/18/2009 0 10/13/2014 PSYMOTR EPIL W/O INT EPI 09/27/200803/2015 Abnormality of gait 04/01/2008 07/15/19 17 documented as of this encounter (statuses as of 06/11/2023) [facility]04-30-2023 History of Past illness Narrative* Problem Noted Date Diagnosed Date Resolved Date RUQ pain 11/03/2022 11/05/2022 RUQ pain 10/31/2022 11/02/2022 Elevated transaminase level 10/31/2022 11/02/2022 MT (mallet toe), right 10/25/202210/25 Mallet toe, acquired, left 05/29/2022 1 07/29/2021 Lip swelling 04/24/2020 08/31/2020 Somatic symptom disorder, mild 04/12/2020 08/31/2020 Anxiety 04/12/2020 08/31/2020 Hypertension 04/11/2020 04/12/2020 Last Assessment & Plan: Assessment: Pt was Hypertensive in the ED. BP readings 149/96>152/96>124/76>113/71>134/83. Pt denied OCP, illicit drug use. Hyperthyroidism r/o thyroid tests negative, anxiety needs to be r/o Plan: -continue to closely monitor vitals, BP all four extremities; would repeat BP and blood glucose if patient has another episode -CK WNL; prior concern for myositis -Renal US WNL; appreciate nephrology consult -Possible somatization of anxiety; appreciate psychology recommendations - Ophthalmology consult for evaluation for papilledema given hypertensive episode and headache - Methylphenidate held d/t nephrology w/u and hypertension Acute intractable headache 04/10/2020 0 08/31/2020 Last Assessment & Plan: Assessment: bilateral frontal CALLES associated with hypertension, tachycardia, and diaphoresis occurring several times per day, increasing in frequency for past 2- 3 months PLAN: - Tylenol prn for pain - Neurology consult for input regarding possibility of complex migraine with dysautonomia Cough 12/06/2016 01/06/2018 Habit cough 12/06/2016 01/06/2018 Attention deficit hyperactiv ity disorder (ADHD), predominantly inattentive type 07/15/2016 0 01/06/2018 Seizures 12/30/2015 07/12/2016 Partial epilepsy with impair ment of consciousness 10/13/2014 08/15/2018 Acromioclavicular (joint) (ligament) sprain 05/30/2014 08/31/2020 Stress reaction 11/18/2013 08/31/2020 Stress reaction of bone 04/14/201308/08 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 07/15/2016 Viral Warts: hands: R thumb prox to DIP to prox nail fold and L 2nd & 3rd finger prox nail fold 08/19/2012 01/06/2018 Nausea and vomiting 07/03/2011 11/06/19 23 Sleep disturbance 02/02/2011 10/13/2014 Academic problem 02/02/2011 08/31/2020 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 Recurrent acute tonsillitis 12/22/2009 07/15/2016 Epileptic grand mal status 01/18/2009 0 10/13/2014 PSYMOTR EPIL W/O INT EPI 09/27/200803/2015 Abnormality of gait 04/01/2008 07/15/19 17 documented as of this encounter (statuses as of 06/26/2023) [facility]04-29-2023 NoteHNO ID: [id number] Author: Hailey Mitchell MD Service: Hospital Medicine Author Type: Physician Type: Progress Notes Filed: 11/02/2022 5:08 PM Note Text: DEPARTMENT OF HOSPITAL MEDICINE PROGRESS NOTE SERVICE DATE: 11/02/2022 SERVICE TIME: 5:03 PM Hospital Medicine/Primary Attending: Hailey Mitchell MD NIGHT AND WEEKEND COVERAGE: [place] COVERAGE: Days: [phone], please page attending physician. Nights: [phone], please page [facility] Night coverage pager [phone]. Subjective INTERVAL HPI: Patient was seen and evaluated at bedside. Reported improvement in nausea and vomiting. Overnight had multiple bowel movements. Diet was advanced however patient was unable to tolerate it. Current Facility-Administered Medications Medication Dose Route Frequency propranolol 20 mg tab(s) (INDERAL) 20 mg ORAL TID NaCl 0.9% iv flush bag 20 mL INTRAVENOUS PRN ondansetron orally disintegrating 4 mg tab(s) (ZOFRAN ODT) 4 mg ORAL q 6 H PRN Or ondansetron (PF) 4 mg injection (ZOFRAN) 4 mg INTRAVENOUS q 6 H PRN keTORolac 15 mg injection (Toradol) 15 mg INTRAVENOUS q 6 H PRN methylphenidate ER 18 mg tab(s) 18 mg ORAL DAILY [START ON 11/03/2022] polyethylene glycol 3350 17 g packet 17 g ORAL DAILY [START ON 11/03/2022] pantoprazole DR 40 mg tab(s) (PROTONIX) 40 mg ORAL DAILY (6 AM) Objective PHYSICAL EXAM: BP 109/59 Pulse 68 Temp (Src) 98.6 (Oral) Resp 16 Ht 5' 2 (1.58m) Wt 120 lb (54.4kg) SpO2 100% LMP 10/06/2022 BMI 21.94 kg/(m2). O2 Therapy: Room Air Physical Exam Performed General: No distress, alert and oriented x3, Cardiac: S1 plus S2 regular rate and rhythm, no murmurs rubs or gallops Respiratory: No wheeze or crackles appreciated, equal air entry bilaterally GI/: Abdomen soft, nontender, bowel sounds audible Skin: Dressing on the right leg and foot Lines, Drains, and Airways Line Duration Peripheral 10/31/22 1557 Assessment Short Right Antecubital 20 Gauge 2 days DATA: Diagnostic tests reviewed for today's visit: LABS Recent Labs 11/01/2241310/31/22125810/30/222053 VPC2 -- -- 46 VPO2C -- -- <31* VBE -- -- 0 BICARB -- -- 26 CO2 22 < > 25 OXHGBVEN -- -- 30* CARBOXVENO -- -- <1.0 METHB -- -- 1.0 LACT -- -- 1.0 HGBB -- -- 15.3 [id number] -- -- RA=Room Air < > = values in this interval not displayed. No results for input(s): GLUCOSEPOC, GLB, POTASSIUM, KWBB, SODIUMPOC, NAB, CHLORIDEPOC, IONIZEDCA, ICAL, ICAPHCOR in the last 720 hours. Recent Labs 11/01/2241310/31/22125810/30/222053 WBC 4.59 7.20 8.50 RBC 4.10 4.67 5.17 HB 11.6 13.3 15.0 HCT 35.5* 40.2 43.7 MCV 86.6 86.1 84.5 MCH 28.3 28.5 29.0 MCHC 32.7 33.1 34.3 PLT 143* 193 199 MPV 10.3 10.0 9.7 NEUTP -- 75.1 79.8 ABSNEUT -- 5.41 6.79 LYMPHP -- 17.5 14.4 ABSLYMPH -- 1.26 1.22 MONOP -- 6.7 5.2 ABSMONO -- 0.48 0.44 EOSINP -- 0.0 0.0 ABSEOSIN -- <0.03 <0.03 BASOP -- 0.3 0.2 ABSBASO -- <0.03 <0.03 IMMGRAN -- 0.4 0.4 NRBC -- 0.0 0.0 ABNRBC <0.01 <0.01 <0.01 DTYPE -- Auto Auto Recent Labs 11/02/22 0435 11/01/22 0414 10/31/22 1849 10/31/22 1259 10/30/222053 NA -- 141 -- 141 139 K -- 4.0 -- 4.0 4.0 CHLOR -- 110* -- 105 102 CO2 -- 22 -- 25 25 ANION -- 9 -- 11 12 BUN -- 11 -- 12 11 CREAT -- 0.70 -- 0.75 0.68 EGFROTH -- 127 -- 117 128 GLUC -- 79 -- 89 104* CA -- 9.0 -- 9.6 9.9 LACT -- -- -- -- 1.0 TPROT 6.0* 5.9* 6.5 7.0 7.8 ALB 4.0 4.0 4.2 4.6 5.0* ALKPHOS 89 98 121 134* 178* TBILI 0.5 0.5 0.5 0.4 0.3 AST 31 54* 84* 96* 120* ALT 95* 129* 164* 181* 217* LIPASE -- -- 26 -- 22 Estimated Creatinine Clearance: 101.4 mL/min (based on SCr of 0.7 mg/dL). No results for input(s): OSM, UNAR, UCR, PROTRAND, UCRR, PCRAT in the last 720 hours. Invalid input(s): UOS No results for input(s): CRP, ESR, WSR, LD, JOSE ARMANDO, TIBC, FE, SAT, APTT, PTSEC, INR, ANTITHROMBIN, DDMRQT in the last 720 hours. No results for input(s): HBA1C, CHOL, HDL, LDL, TG, PREALB, JOSE ARMANDO, TIBC, FE, SAT, HBA1C, TSHREFL, FREET3, FREET4 in the last 720 hours. No results for input(s): HSTNT, PBNP, TROPT, TROPI, DIGOXIN, PROCLT in the last 720 hours. Recent Labs 10/30/22 2131 COLOR Yellow CLARITY Clear UPH 6.5 SPGR 1.020 UGLUC Negative UKET 1+* UPROT Negative UHB Negative UBILI Negative UROBILINOGEN 0.2 EU/dL URBC 0-3 /HPF NITRITES Negative LEUKEST Negative UWBC 0-5 /HPF UBACTERIA Few* UEPI Few No results for input(s): VANCORA in the last 720 hours. No results for input(s): ACETM, ALCO, SALICY, SALCO, UAMPP, UBARPP, BENZO, UMARI3, COCAINEMETUR, UALCH3, UOPIPP, UOXYC, UPCPPP, UPCP, UBENZ, UCOC2, UAMPH, UTHC, UOPI, UBARB2, UETOH, UOXYC in the last 720 hours. No results for input(s): CSFAPP, CCOLR, XANTHO, CSVOLM, VIALID, CRBC, CWBC, CSFSE, CSFLY, CMONO, CSFPROT, CSFGLUC, TUBENO, CCOLR, CCLAR, SCCOLR, SCCLAR, CRBC, CWBC, CDFTTL, CNEUT, CLYMP, CMONO, CMACRO, COTHCL, CSFPROT, CSFGLUC, CSFSR, CSFSTF (more content not included)...[id number] NoteHNO ID: [id number] Author: Jesus Gee MD Service: Hospital Medicine Author Type: Physician Type: Progress Notes Filed: 11/01/2022 9:35 AM Note Text: DEPARTMENT OF HOSPITAL MEDICINE PROGRESS NOTE Date: 11/01/22 History: Still constipated but having gas come out. Still nauseated. Exam: BP 111/67 Pulse 94 Temp 36.9 ?C (98.4 ?F) (Oral) Resp 18 Ht 157.5 cm (5' 2 ) Wt 54.4 kg (120 lb) LMP 10/06/2022 (Exact Date) SpO2 100% BMI 21.95 kg/m? Physical Exam Cardiovascular: Rate and Rhythm: Normal rate and regular rhythm. Pulmonary: Effort: Pulmonary effort is normal. Breath sounds: Normal breath sounds. Abdominal: General: Bowel sounds are normal. There is no distension. DATA: ASSESSMENT: Ms. Alejandre, your 22 years have been affected by asthma, epilepsy, narcolepsy without cataplexy, GERD, migraines, POTS, recent hammertoe surgery with post-op constipation and episodes of nausea vomiting and abd cramps . You presented to the hospital with persistent nausea/vomiting/constipation and also temporary LFT abnormality likely from excessive tylenol ingestion prior to admission. Given downtrending LFT's, NAC won't be needed. Will give aggressive laxatives today and PPI therapy. Once having BM's and feels better, can discharge. If no BM with oral/suppository therapy, can give a jug of Go-lytely and/or enema. PROBLEM LIST Constipation Nausea vomiting Abnormal LFT Leg blood clot prevention: low risk SIGNATURE: Jesus Gee, [id number] History of Past illness Narrative* Problem Noted Date Resolved Date RUQ pain 10/31/2022 11/02/2022 Elevated transaminase level 10/31/202210/06 MT (mallet toe), right 10/25/2022 3 Mallet toe, acquired, left 05/29/202205/29 Lip swelling 04/24/2020 08/31/2020 Somatic symptom disorder, mild 04/12/2020 0 08/31/2020 Anxiety 04/12/2020 08/31/2020 Hypertension 04/11/2020 04/12/2020 Last Assessment & Plan: Assessment: Pt was Hypertensive in the ED. BP readings 149/96>152/96>124/76>113/71>134/83. Pt denied OCP, illicit drug use. Hyperthyroidism r/o thyroid tests negative, anxiety needs to be r/o Plan: -continue to closely monitor vitals, BP all four extremities; would repeat BP and blood glucose if patient has another episode -CK WNL; prior concern for myositis -Renal US WNL; appreciate nephrology consult -Possible somatization of anxiety; appreciate psychology recommendations - Ophthalmology consult for evaluation for papilledema given hypertensive episode and headache - Methylphenidate held d/t nephrology w/u and hypertension Acute intractable headache 04/10/202008/31 Last Assessment & Plan: Assessment: bilateral frontal CALLES associated with hypertension, tachycardia, and diaphoresis occurring several times per day, increasing in frequency for past 2- 3 months PLAN: - Tylenol prn for pain - Neurology consult for input regarding possibility of complex migraine with dysautonomia Cough 12/06/2016 01/06/2018 Habit cough 12/06/2016 01/06/2018 Attention deficit hyperactiv ity disorder (ADHD), predominantly inattentive type 07/15/2016 01/06/2018 Seizures 12/30/2015 07/12/2016 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 10/13/2014 08/15/2018 Acromioclavicular (joint) (ligament) sprain 05/0808/31/2020 Stress reaction 11/18/2013 08/31/2020 Stress reaction of bone 04/14/2013 08/31/19 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 07/15/2016 Viral Warts: hands: R thumb prox to DIP to prox nail fold and L 2nd & 3rd finger prox nail fold 08/19/2012 01/06/2018 Sleep disturbance 02/02/2011 10/13/2014 Academic problem 02/02/2011 08/31/2020 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 Author Type: Nurse Practitioner Type: Progress Notes Filed: 10/31/2022 1:53 PM Note Text: PEDIATRIC SICK VISIT SERVICE DATE: 10/31/2022 SUBJECTIVE: Polina Alejandre is a 22 year old accompanied by mother. Patient presents with: ED Follow-up: Presents today for a ER follow up. History was obtained from: mother, patient, and EMR Patient seen in ED yesterday for severe abdominal pain. She has not had a BM in 7 days. She took three days of daily miralax without results. Per mom ED told them not to use miralax and take senna, she took one this am. Yesterday she did an enema and a suppository without results. CT was done in Ed which report states Liver: There is a 2.8 x 4.4 cm hypoattenuating mass with peripheral nodular discontinuous enhancement in the caudate, this is compatible with a hemangioma. Biliary: No bile duct dilation. Spleen: No mass. No splenomegaly. Pancreas: No mass or duct dilation. Adrenals: No mass. Kidneys: Unremarkable GI tract: No dilation or wall thickening. Normal appendix Lymph nodes: No abdominal or pelvic lymphadenopathy. Mesentery/Peritoneum: No ascites or mass. Retroperitoneum: No mass. Vasculature: Unremarkable Pelvis: 3 cm lesion with crenulated enhancing border arising from the right ovary. Trace pelvic free fluid. Bones/Soft Tissues: No significant finding. Lower thorax: Unremarkable. Per mom they were told her colon was significantly enlarged. Also they had discussed admission due to the significant amount of stool -mom was told the left side was full of air and right side full of stool and likely pushing on stomach and that was causing pain. All of this is per mom's report. She continues to be in significant pain in office. She is unable to eat as she is so uncomfortable. She also received fentanyl and toradol in ED which did give relief. 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 History of Penicillin Allergy Urticaria Due to Drug Allergy Adverse Effect of Cephalosporins and Other Beta-Lactam Antibiotics, Initial Encounter Seasonal Allergic Rhinitis Due to Pollen Migraine Without Aura and Without Status Migrainosus, Not Intractable Elevated Blood Pressure Reading Without Diagnosis of Hypertension Pre-Op Examination Gerd (Gastroesophageal Reflux Disease) Mild Intermittent Asthma Without Complication Pots (Postural Orthostatic Tachycardia Syndrome) Delayed Emergence From Anesthesia Epilepsy (Hcc) 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) off AEDs since 2018 GERD (gastroesophageal reflux disease) Hypertension 04/11/2020 Mild intermittent asthma without complication MT (mallet toe), right Narcolepsy without cataplexy Nonallergic rhinitis PMH - PAST MEDICAL HISTORY OF seizure POTS (postural orthostatic tachycardia syndrome) PAST SURGICAL HISTORY Procedure Laterality Date DENTAL SURGERY HX 2011 Simple extraction of primary teeth #A, #B, #C, #H, #I, #J, #M, #N, and #R. 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 ondansetron orally disintegrating (ZOFRAN ODT) 4 mg disintegrating tablet Take 1 tablet by mouth every 6 hours as needed. loratadine (CLARITIN) 10 mg tablet Take 10 mg by mouth once daily. traMADol (ULTRAM) 50 mg tablet Take 1 tablet by mouth every 6 hours as needed for pain. [START ON 11/12/2022] methylphenidate ER 18 mg tablet Take 1 tablet by mouth every morning for 30 days. Do not start before November 12, 2022. propranolol (INDERAL) 20 mg tablet Take 1 tablet by mouth three times daily. MULTIVITAMIN ORAL Take by mouth once daily. albuterol HFA (PROVENTIL HFA, VENTOLIN HFA) 90 mcg/actuation inhaler Inhale 2 Puffs as instructed every 4 hours as needed. albuterol (PROVENTIL) 2.5 mg /3 mL (0.083 %) nebulizer solution 1 vial contains 3 ml. 1 unit dose every 4 hours as needed acetaminophen (TYLENOL) 325 mg tablet Take 2 tablets by mouth every 6 hours as needed. OBJECTIVE: Component Latest Ref Rng AND Units 10/30/2022 WBC 3.70 - 11.00 k/uL 8.50 RBC 3.90 - 5.20 m/uL 5.17 Hemoglobin 11.5 - 15.5 g/dL 15.0 Hematocrit 36.0 - 46.0 % 43.7 MCV 80.0 (more content not included)...[facility]04-21-2023 History of Past illness Narrative* Problem Noted Date Resolved Date MT (mallet toe), right 10/25/2022 Mallet toe, acquired, left 05/29/202205/29 Lip swelling 04/24/2020 08/31/2020 Somatic symptom disorder, mild 04/12/2020 0 08/31/2020 Anxiety 04/12/2020 08/31/2020 Hypertension 04/11/2020 04/12/2020 Last Assessment & Plan: Assessment: Pt was Hypertensive in the ED. BP readings 149/96>152/96>124/76>113/71>134/83. Pt denied OCP, illicit drug use. Hyperthyroidism r/o thyroid tests negative, anxiety needs to be r/o Plan: -continue to closely monitor vitals, BP all four extremities; would repeat BP and blood glucose if patient has another episode -CK WNL; prior concern for myositis -Renal US WNL; appreciate nephrology consult -Possible somatization of anxiety; appreciate psychology recommendations - Ophthalmology consult for evaluation for papilledema given hypertensive episode and headache - Methylphenidate held d/t nephrology w/u and hypertension Acute intractable headache 04/10/202008/31 Last Assessment & Plan: Assessment: bilateral frontal CALLES associated with hypertension, tachycardia, and diaphoresis occurring several times per day, increasing in frequency for past 2- 3 months PLAN: - Tylenol prn for pain - Neurology consult for input regarding possibility of complex migraine with dysautonomia Cough 12/06/2016 01/06/2018 Habit cough 12/06/2016 01/06/2018 Attention deficit hyperactiv ity disorder (ADHD), predominantly inattentive type 07/15/2016 01/06/2018 Seizures 12/30/2015 07/12/2016 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 10/13/2014 08/15/2018 Acromioclavicular (joint) (ligament) sprain 05/0808/31/2020 Stress reaction 11/18/2013 08/31/2020 Stress reaction of bone 04/14/2013 08/31/19 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 07/15/2016 Viral Warts: hands: R thumb prox to DIP to prox nail fold and L 2nd & 3rd finger prox nail fold 08/19/2012 01/06/2018 Vomiting 07/03/2011 08/28/2011 Sleep disturbance 02/02/2011 10/13/2014 Academic problem 02/02/2011 08/31/2020 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 Recurrent acute tonsillitis 12/22/200903/2017 Epileptic grand mal status 01/18/200910/13 PSYMOTR EPIL W/O INT EPI 09/27/2008 015 Abnormality of gait 04/01/2008 07/15/2016 documented as of this encounter (statuses as of 10/26/2022) [facility]04-21-2023 NoteHNO ID: [id number] Author: Peyton Pederson RN Service: Nursing Author Type: Registered Nurse Type: Nursing Progress Note Filed: 10/25/2022 9:44 AM Note Text: Xrays done right foot.[facility]04-21-2023 NoteHNO ID: [id number] Author: Arslan Bui APRN.CRNA Service: Nursing Author Type: Nurse Hydroelectric Mechanic Type: Anesthesia Procedure Notes Filed: 10/25/2022 8:23 AM Note Text: ANESTHESIOLOGY PROCEDURE NOTE Airway General Information Procedure Start Time/Medication Administration: 10/25/2022 8:14 AM Patient location during procedure: OR Timeout Performed Pre-procedure: timeout performed Consent Obtained: Yes Patient 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 Staffing PAYROLL SPECIALIST: Arslan Bui APRN.PAYROLL SPECIALIST Performed by: SONDRA Indications and Patient Condition Indications for airway management: anesthesia Preoxygenated: yes anesthesia circuit Patient position: sniffing Method: asleep Cricoid Pressure: No Manual In-Line Stabilization: No Difficult Mask: No Final Airway Details Final airway type: supraglottic airway Number of attempts at approach: 1 Final Supraglottic Airway: i-gel Size 4 Seal Adequate: yes SIGNATURE: Arslan Bui APRN.CRNA PATIENT NAME: Polina Alejandre DATE: October 25, 2022 TIME: 8:23 AM CS[facility]: [id number] Miscellaneous Notes* [facility] - RT Bhupendra(R) - 10/25/2022 9:52 AM EDT Radiology Service Progress Note PATIENT NAME: Polina Alejandre DATE OF SERVICE: October 25, 2022 TIME: 9:52 AM PATIENT IDENTITY VERIFICATION COMPLETED USING TWO (2) IDENTIFIERS: Name and Date of confirmedby identification band. FALL SCREENING: Has the patient had 2 falls in the last year or 1 fall with injury or currently using an Ambulatory Assistive Device (Walker, Cane, Wheelchair, Crutches, etc.)? [facility] PATIENT GENDER DATA: Female. status: : No status: NO. PATIENT RELEVANT IMPLANT DATA REVIEWED: Not Applicable RADIOLOGY DEPARTMENT: General X-ray: Exam(s) Completed: Lower Extremity X- Ray(s): Foot, Right PERIPHERAL IV DATA: Not applicable SIGNED BY: RT Bhupendra(R) October 25, 2022 9:52 AM documented in [facility] encounterW[facility] Nurse Note* Peyton Pederson RN - 10/25/2022 9:44 AM EDT Xrays done right foot. documented in this [facility] History and physical note * Clifford Valenzuela DPM - 10/25/2022 9:03 AM EDT UPDATED HISTORY AND PHYSICAL EXAMINATION SERVICE DATE: 10/25/2022 SERVICE TIME: 903 PHYSICAL EXAM MUST BE COMPLETED ON ADMISSION The History and Physical (completed in the past 30 days) has been reviewed and the patient has beenexamined. The contents accurately reflect the patient's condition with the following additions or revisions since the H&P was completed. Examination indicates no changes. This H&P can be found in the Electronic Medical Record dated 10/15/2022. SIGNATURE: Clifford Valenzuela DPM PATIENT NAME: Polina Alejandre DATE: October 25, 2022 TIME: 9:03 AM Source Note - Sahara Barrett APRN.INDUSTRIAL RENDERER - 10/18/2022 9:20 AM EDT HISTORY AND PHYSICAL EXAMINATION SERVICE DATE: 10/15/2022 SERVICE TIME: 10:30 AM PRIMARY CARE PHYSICIAN: Eileen Gutiérrez DO REASON FOR VISIT: Polina Alejandre is a 22 year old female who is scheduled for Procedure(s): CORRECTION HAMMER TOES 2-5 (Right) FLEXOR TENOTOMY TOES 2-4 (Right) at the request of Dr. Clifford Valenzuela for routine H&P. Myfinal recommendation will be communicated back to the requesting physician by way of shared medicalrecord or letter. 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 History of Penicillin Allergy Urticaria Due to Drug Allergy Adverse Effect of Cephalosporins and Other Beta-Lactam Antibiotics, Initial Encounter Seasonal Allergic Rhinitis Due to Pollen Migraine Without Aura and Without Status Migrainosus, Not Intractable Elevated Blood Pressure Reading Without Diagnosis of Hypertension Pre-Op Examination Gerd (Gastroesophageal Reflux Disease) Mild Intermittent Asthma Without Complication Pots (Postural Orthostatic Tachycardia Syndrome) Delayed Emergence From Anesthesia Epilepsy (Hcc) COVID-19 Immunization Status Overdue - COVID-19 VACCINE (3 - Booster for Pfizer series) Overdue since 12/16/2020 10/21/2020 Imm Admin: COVID-19 original vaccine, age 12+ yr, monovalent (PFIZER- BIONTECH - PURPLE TOP) 09/30/2020 Imm Admin: COVID-19 original vaccine, age 12+ yr, monovalent (PFIZER- BIONTECH - PURPLE TOP) CHIEF COMPLAINT: The reason for this visit is to perform a comprehensive review of the patients past medical history, assess their current health status and obtain any additional testing required based on anesthesia guidelines. To assess and identify potential anesthesia problems, particularly those that may suggest potential complications or contraindications to the planned procedure. HPI: Patient is a 22 year old female who present for presurgical testing. Patient has hammertoe andmallet toe on right foot. She states that her pain is 2/10 at PAT visit today. She previously had same procedure done on the left foot back in May 2022. Patient denies any other problems or concerns at this time. Risks and benefits of the procedure discussed by Surgeon and patient agreed to proceed with planned procedure. REVIEW OF SYSTEMS: General: No weight loss, malaise or fevers. Negative for: weight loss >10% of BW in last 6 months, malaise and fever. Neurological: Positive for: seizures (last seizure age 14 or 15). Negative for: strokes. Respiratory: Positive for: asthma. Negative for: COPD, pneumonia within 6 weeks, URI < 2 weeks and obstructive sleep apnea. Cardiovascular: Positive for: hypertension Negative for: chest pain, congenital heart defect, DVT/PE and hyperlipidemia. GI: Positive for: GERD Negative for: liver disease. : Negative for: frequent urination, hematuria and urgency. Endocrine: Negative for: hyperthyroidism. Hematology: No history of bleeding or clotting disorder. Patient is not taking anti-coagulation or platelet medications. No history of hematological symptoms or problems. Oncology: No history of CA metastasis, chemo within 30 days, or radiotherapy within 90 days. No history of oncological symptoms or problems. Psych: No history of psychiatric symptoms or problems. Negative for: anxiety and depression. Musculoskeletal: Negative for joint pain or swelling, back pain or muscle pain. Skin: Negative for lesions, rash and itching. 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) off AEDs since 2017 GERD (gastroesophageal reflux disease) Hypertension 04/11/2020 Mild intermittent asthma without complication MT (mallet toe), right Narcolepsy without cataplexy Nonallergic rhinitis PMH - PAST MEDICAL HISTORY OF seizure POTS (postural orthostatic tachycardia syndrome) PAST SURGICAL HISTORY Procedure Laterality Date DENTAL SURGERY HX 2011 Simple extraction of primary teeth #A, #B, #C, #H, #I, #J, #M, #N, and #R. EGD 2019 OSTECTOMY TARSAL COALITION Right 04/06/2015 [facility] PAST SURGICAL HISTORY OF 11/21/2003 tear duct surgery bilateral PAST SURGICAL HISTORY OF 05/2022 Correction of second, third, and fourth toes, left foot REMOVE TONSIL AND ADENOI UNDER AGE 14 02/12/2010 FAMILY HISTORY Problem Relation Age of Onset Allergies Father Asthma Brother Allergies Maternal Grandmother Hypertension Maternal Grandfather Allergies Maternal Grandfather Heart Maternal Grandfather mat side/pat side Social History Tobacco Use Smoking status: Never Passive exposure: Never Smokeless tobacco: Never Vaping Use Vaping Use: Never used Substance Use Topics Alcohol use: No Drug use: No Prior to Admission medications as of 10/18/22 0928 Medication Sig Last Dose Taking methylphenidate ER 18 mg tablet Take 1 tablet by mouth every morning for 30 days. Taking Yes propranolol (INDERAL) 20 mg tablet Take 1 tablet by mouth three times daily. Taking Yes MULTIVITAMIN ORAL Take by mouth once daily. Taking Yes albuterol HFA (PROVENTIL HFA, VENTOLIN HFA) 90 mcg/actuation inhaler Inhale 2 Puffs as instructed every 4 hours as needed. Taking Yes albuterol (PROVENTIL) 2.5 mg /3 mL (0.083 %) nebulizer solution 1 vial contains 3 ml. 1 unit dose every 4 hours as needed Taking Yes acetaminophen (TYLENOL) 325 mg tablet Take 2 tablets by mouth every 6 hours as needed. Taking Yes methylphenidate ER 18 mg tablet Take 1 tablet by mouth every morning for 30 days. Do not start before November 12, 2022. methylphenidate ER 18 mg tablet Take 1 tablet by mouth every morning for 90 days. Do not start before August 09, 2022. No medication comments found. ALLERGIES Allergen Reactions Hydrocodone-Acetami* Swelling Latex Swelling Omnicef [Cefdinir] Swelling Versed [Midazolam H* Mental Status Change Pulling out IV's, extremely confused and restless, getting on hands and knees Penicillins Rash Gluten GI Upset Objective PHYSICAL EXAM: General: alert and oriented and healthy appearance. Pertinent negatives noted - not distressed. Skin: normal color, no rash or lesions. HEENT: EOM intact and pupils equal round. Cardiovascular: regular rate and rhythm, normal S1 and S2, no rub, murmurs, or gallop. Respiratory: normal breath sounds, no wheezes or crackles. No chest wall deformity or tenderness. Abdomen: bowel sounds present. Extremities: no deformity, no edema or tenderness, no joint swelling or clubbing. Neurological: normal cognition and motor skills. Gait normal. No weakness or sensory deficit. PAIN ASSESSMENT: Pain Pain Level: 2 Frequency: Continuous VITALS: BP 114/82 Pulse 87 Temp 98.8 Resp 18 Ht 5' 2 (1.58m) Wt 120 lb (54.4kg) SpO2 100% LMP 10/06/2022 BMI 21.94 kg/(m^2). Diagnostic tests reviewed for today's visit: Lab Value Units Date High Low HB No results within date range. HCT No results within date range. WBC No results within date range. PLT No results within date range. NA No results within date range. K No results within date range. GLUC No results within date range. BUN No results within date range. CREAT No results within date range. PTSEC No results within date range. INR No results within date range. APTT No results within date range. ALT No results within date range. AST No results within date range. TBILI No results within date range. TSH No results within date range. Lab Value Units Date High Low HCGQT No results within date range. UHCG No results within date range. HCG, BODY* No results within date range. Lab Value Units Date High Low ABORHD No results within date range. ABSCREEN No results within date range. No results found for: HBA1C No results found for this or any previous visit (from the past 8760 hour(s)). No results found for this or any previous visit (from the past 45380 hour(s)). Assessment Patient has the following medical conditions which may affect gage-operative course: Pre-op examination see note for medical conditions which may affect gage-operative course that were addressed at today's visit. GERD (gastroesophageal reflux disease) Diet controlled. Patient states she will occasionally take a TUMs when needed POTS (postural orthostatic tachycardia syndrome) Controlled on Propanolol. Instructed to take DOS. Narcolepsy without cataplexy Controlled per patient by Methylphenidate. Epilepsy (HCC) Patient states last seizure was when she was 12-13 years old. No longer sees Neurology. States she was cleared by them and has been off medication since 2018. Mild intermittent asthma without complication Albuterol. Patient uses rescue inhaler 1-2 times a year. Denies hospitalization in the last year due to respiratory issues. Instructed to bring DOS. Patient states she does not have one that is not outdated at this time Delayed emergence from anesthesia Patient states she has adverse reaction to Versed and becomes hyper and aggressive. Patient states she does well with Propofol. Had surgery 05/2022 at [facility] and had no significant anesthesia events. Charo in anesthesia office notified. [place] Activity Status Index: METS: Run a short distance (8.00 METs) DASI Score: 8 Patient denies any chest pain or undue shortness of breath with the above physical activity. ARISCAT Score: Age: <=50 Preoperative SpO2: >=96% Respiratory infection in the last month: No Preoperative anemia: No Surgical incision: peripheral Duration of surgery: <2 hrs Emergency procedure: No ARISCAT Score: 0 ANESTHESIA FINDINGS: Intubation History: No history of difficult intubation Significant Anesthesia Considerations: states very aggressive when on versed potential slow emergence Airway History: No history of difficult airway I - PHYSICAL EVALUATION AIRWAY Patient intubated: No. DENTAL Dental findings: teeth intact. II - ANESTHESIA PLAN Anesthetic Plan: general Beta Preeti Monitoring Plan Post Procedure Analgesic Plan Prepared for Surgery: CONSULTS: Patient does not require consults for optimization at this time Planned Anesthetic: general The Following Tests/Procedures Have Been Initiated: No orders in Epic per surgeon. HCG day of surgery. Implantable Devices: None Assessment/Plan MT (mallet toe), right [M20.5X1] PLAN Planned Procedure: Procedure(s): CORRECTION HAMMER TOES 2-5 (Right) FLEXOR TENOTOMY TOES 2-4 (Right) I spent a total of 50 minutes on the date of the service which included preparing to see the patient, [id number] patient care, completing clinical documentation, obtaining and/or reviewing separately obtained history, performing a medically appropriate examination, and counseling and educating the patient/family/caregiver. Instructions Given to Patient: Instructions located in the after visit summary. Patient given verbal and written preop instructions and voices comprehension and compliance. SIGNATURE: Sahara Barrett APRN.CNP PATIENT NAME: Polina Alejandre DATE: October 15, 2022 TIME: 1:39 PM PAGER/CONTACT #: documented in this encounterW[facility]ot [facility]04[facility] History and physical note * Sahara Barrett APRN.CNP - 10/18/2022 9:20 AM EDT HISTORY AND PHYSICAL EXAMINATION SERVICE DATE: 10/15/2022 SERVICE TIME: 10:30 AM PRIMARY CARE PHYSICIAN: Eileen Gutiérrez DO REASON FOR VISIT: Polina Alejandre is a 22 year old female who is scheduled for Procedure(s): CORRECTION HAMMER TOES 2-5 (Right) FLEXOR TENOTOMY TOES 2-4 (Right) at the request of Dr. Clifford Valenzuela for routine H&P. Myfinal recommendation will be communicated back to the requesting physician by way of shared medicalrecord or letter. 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 History of Penicillin Allergy Urticaria Due to Drug Allergy Adverse Effect of Cephalosporins and Other Beta-Lactam Antibiotics, Initial Encounter Seasonal Allergic Rhinitis Due to Pollen Migraine Without Aura and Without Status Migrainosus, Not Intractable Elevated Blood Pressure Reading Without Diagnosis of Hypertension Pre-Op Examination Gerd (Gastroesophageal Reflux Disease) Mild Intermittent Asthma Without Complication Pots (Postural Orthostatic Tachycardia Syndrome) Delayed Emergence From Anesthesia Epilepsy (Hcc) COVID-19 Immunization Status Overdue - COVID-19 VACCINE (3 - Booster for Pfizer series) Overdue since 12/16/2020 10/21/2020 Imm Admin: COVID-19 original vaccine, age 12+ yr, monovalent (PFIZER- BIONTECH - PURPLE TOP) 09/30/2020 Imm Admin: COVID-19 original vaccine, age 12+ yr, monovalent (PFIZER- BIONTECH - PURPLE TOP) CHIEF COMPLAINT: The reason for this visit is to perform a comprehensive review of the patients past medical history, assess their current health status and obtain any additional testing required based on anesthesia guidelines. To assess and identify potential anesthesia problems, particularly those that may suggest potential complications or contraindications to the planned procedure. HPI: Patient is a 22 year old female who present for presurgical testing. Patient has hammertoe andmallet toe on right foot. She states that her pain is 2/10 at PAT visit today. She previously had same procedure done on the left foot back in May 2022. Patient denies any other problems or concerns at this time. Risks and benefits of the procedure discussed by Surgeon and patient agreed to proceed with planned procedure. REVIEW OF SYSTEMS: General: No weight loss, malaise or fevers. Negative for: weight loss >10% of BW in last 6 months, malaise and fever. Neurological: Positive for: seizures (last seizure age 14 or 15). Negative for: strokes. Respiratory: Positive for: asthma. Negative for: COPD, pneumonia within 6 weeks, URI < 2 weeks and obstructive sleep apnea. Cardiovascular: Positive for: hypertension Negative for: chest pain, congenital heart defect, DVT/PE and hyperlipidemia. GI: Positive for: GERD Negative for: liver disease. : Negative for: frequent urination, hematuria and urgency. Endocrine: Negative for: hyperthyroidism. Hematology: No history of bleeding or clotting disorder. Patient is not taking anti-coagulation or platelet medications. No history of hematological symptoms or problems. Oncology: No history of CA metastasis, chemo within 30 days, or radiotherapy within 90 days. No history of oncological symptoms or problems. Psych: No history of psychiatric symptoms or problems. Negative for: anxiety and depression. Musculoskeletal: Negative for joint pain or swelling, back pain or muscle pain. Skin: Negative for lesions, rash and itching. 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) off AEDs since 2018 GERD (gastroesophageal reflux disease) Hypertension 04/11/2020 Mild intermittent asthma without complication MT (mallet toe), right Narcolepsy without cataplexy Nonallergic rhinitis PMH - PAST MEDICAL HISTORY OF seizure POTS (postural orthostatic tachycardia syndrome) PAST SURGICAL HISTORY Procedure Laterality Date DENTAL SURGERY HX 2011 Simple extraction of primary teeth #A, #B, #C, #H, #I, #J, #M, #N, and #R. EGD 2019 OSTECTOMY TARSAL COALITION Right 04/06/2015 [facility] PAST SURGICAL HISTORY OF 11/21/2003 tear duct surgery bilateral PAST SURGICAL HISTORY OF 05/2022 Correction of second, third, and fourth toes, left foot REMOVE TONSIL AND ADENOI UNDER AGE 12 02/12/2010 FAMILY HISTORY Problem Relation Age of Onset Allergies Father Asthma Brother Allergies Maternal Grandmother Hypertension Maternal Grandfather Allergies Maternal Grandfather Heart Maternal Grandfather mat side/pat side Social History Tobacco Use Smoking status: Never Passive exposure: Never Smokeless tobacco: Never Vaping Use Vaping Use: Never used Substance Use Topics Alcohol use: No Drug use: No Prior to Admission medications as of 10/18/22 0928 Medication Sig Last Dose Taking methylphenidate ER 18 mg tablet Take 1 tablet by mouth every morning for 30 days. Taking Yes propranolol (INDERAL) 20 mg tablet Take 1 tablet by mouth three times daily. Taking Yes MULTIVITAMIN ORAL Take by mouth once daily. Taking Yes albuterol HFA (PROVENTIL HFA, VENTOLIN HFA) 90 mcg/actuation inhaler Inhale 2 Puffs as instructed every 4 hours as needed. Taking Yes albuterol (PROVENTIL) 2.5 mg /3 mL (0.083 %) nebulizer solution 1 vial contains 3 ml. 1 unit dose every 4 hours as needed Taking Yes acetaminophen (TYLENOL) 325 mg tablet Take 2 tablets by mouth every 6 hours as needed. Taking Yes methylphenidate ER 18 mg tablet Take 1 tablet by mouth every morning for 30 days. Do not start before November 12, 2022. methylphenidate ER 18 mg tablet Take 1 tablet by mouth every morning for 90 days. Do not start before August 09, 2022. No medication comments found. ALLERGIES Allergen Reactions Hydrocodone-Acetami* Swelling Latex Swelling Omnicef [Cefdinir] Swelling Versed [Midazolam H* Mental Status Change Pulling out IV's, extremely confused and restless, getting on hands and knees Penicillins Rash Gluten GI Upset Objective PHYSICAL EXAM: General: alert and oriented and healthy appearance. Pertinent negatives noted - not distressed. Skin: normal color, no rash or lesions. HEENT: EOM intact and pupils equal round. Cardiovascular: regular rate and rhythm, normal S1 and S2, no rub, murmurs, or gallop. Respiratory: normal breath sounds, no wheezes or crackles. No chest wall deformity or tenderness. Abdomen: bowel sounds present. Extremities: no deformity, no edema or tenderness, no joint swelling or clubbing. Neurological: normal cognition and motor skills. Gait normal. No weakness or sensory deficit. PAIN ASSESSMENT: Pain Pain Level: 2 Frequency: Continuous VITALS: BP 114/82 Pulse 87 Temp 98.8 Resp 18 Ht 5' 2 (1.58m) Wt 120 lb (54.4kg) SpO2 100% LMP 10/06/2022 BMI 21.94 kg/(m^2). Diagnostic tests reviewed for today's visit: Lab Value Units Date High Low HB No results within date range. HCT No results within date range. WBC No results within date range. PLT No results within date range. NA No results within date range. K No results within date range. GLUC No results within date range. BUN No results within date range. CREAT No results within date range. PTSEC No results within date range. INR No results within date range. APTT No results within date range. ALT No results within date range. AST No results within date range. TBILI No results within date range. TSH No results within date range. Lab Value Units Date High Low HCGQT No results within date range. UHCG No results within date range. HCG, BODY* No results within date range. Lab Value Units Date High Low ABORHD No results within date range. ABSCREEN No results within date range. No results found for: HBA1C No results found for this or any previous visit (from the past 8760 hour(s)). No results found for this or any previous visit (from the past 13325 hour(s)). Assessment Patient has the following medical conditions which may affect gage-operative course: Pre-op examination see note for medical conditions which may affect gage-operative course that were addressed at today's visit. GERD (gastroesophageal reflux disease) Diet controlled. Patient states she will occasionally take a TUMs when needed POTS (postural orthostatic tachycardia syndrome) Controlled on Propanolol. Instructed to take DOS. Narcolepsy without cataplexy Controlled per patient by Methylphenidate. Epilepsy (HCC) Patient states last seizure was when she was 12-13 years old. No longer sees Neurology. States she was cleared by them and has been off medication since 2018. Mild intermittent asthma without complication Albuterol. Patient uses rescue inhaler 1-2 times a year. Denies hospitalization in the last year due to respiratory issues. Instructed to bring DOS. Patient states she does not have one that is not outdated at this time Delayed emergence from anesthesia Patient states she has adverse reaction to Versed and becomes hyper and aggressive. Patient states she does well with Propofol. Had surgery 05/2022 at [facility] and had no significant anesthesia events. Charo in anesthesia office notified. [place] Activity Status Index: METS: Run a short distance (8.00 METs) DASI Score: 8 Patient denies any chest pain or undue shortness of breath with the above physical activity. ARISCAT Score: Age: <=50 Preoperative SpO2: >=96% Respiratory infection in the last month: No Preoperative anemia: No Surgical incision: peripheral Duration of surgery: <2 hrs Emergency procedure: No ARISCAT Score: 0 ANESTHESIA FINDINGS: Intubation History: No history of difficult intubation Significant Anesthesia Considerations: states very aggressive when on versed potential slow emergence Airway History: No history of difficult airway I - PHYSICAL EVALUATION AIRWAY Patient intubated: No. DENTAL Dental findings: teeth intact. II - ANESTHESIA PLAN Anesthetic Plan: general Beta Preeti Monitoring Plan Post Procedure Analgesic Plan Prepared for Surgery: CONSULTS: Patient does not require consults for optimization at this time Planned Anesthetic: general The Following Tests/Procedures Have Been Initiated: No orders in Epic per surgeon. HCG day of surgery. Implantable Devices: None Assessment/Plan MT (mallet toe), right [M20.5X1] PLAN Planned Procedure: Procedure(s): CORRECTION HAMMER TOES 2-5 (Right) FLEXOR TENOTOMY TOES 2-4 (Right) I spent a total of 50 minutes on the date of the service which included preparing to see the patient, [id number] patient care, completing clinical documentation, obtaining and/or reviewing separately obtained history, performing a medically appropriate examination, and counseling and educating the patient/family/caregiver. Instructions Given to Patient: Instructions located in the after visit summary. Patient given verbal and written preop instructions and voices comprehension and compliance. SIGNATURE: Sahara Barrett APRN.CNP PATIENT NAME: Polina Alejandre DATE: October 15, 2022 TIME: 1:39 PM PAGER/CONTACT #: documented in this encounterW[facility]04[facility]23 Instructions* Patient Instructions* Sahara Barrett APRN.CNP - 10/15/2022 1:47 PM EDT PATIENT PREOPERATIVE INSTRUCTIONS Your surgeon has scheduled for your procedure at this surgery center: [facility]: [phone], [address], [place] [address] Please enter through the main entrance and proceed to the blue elevators. The surgery welcome center is located to the left of the blue elevator. Please read below carefully for your personalized instructions. Arrival Time for Surgery: DATE: 10/25/2022 - To obtain your ARRIVAL TIME for surgery, call your physician's office the day before your surgery. - If your surgery is scheduled for Friday, call the Friday before. Your surgeon's microsoft crm developer will tell you what time to call the office. - Please be aware that emergency situations arise, which may delay or change your surgical time. Ifthis happens, we will notify you as soon as possible and regret any inconvenience. Requirement for Vaccinations : 72-hour period between getting vaccine and date of surgery. Dietary Restrictions: - Nothing to eat after midnight. - You may have 12 ounces of clear liquids ( water, Gatorade, apple juice, carbonated beverage, clear tea or black coffee) until 4 hours before your surgery. This is important because if you do, your surgery may have to be cancelled Blood Thinning Medications: - Stop NSAIDS (Ibuprofen, Advil, Aleve, Motrin, Celebrex, Mobic, etc.) 7 days before surgery, as directed by your surgeon. You may take Tylenol (Acetaminophen) or any of your pain medications that do not contain aspirin orNSAIDS as needed. IF YOU TAKE ANY OF THE FOLLOWING BLOOD THINNERS, PLEASE CONTACT YOUR SURGEON AND THE PHYSICIAN WHO PRESCRIBES IT FOR YOU IN ORDER TO GET PERIOPERATIVE INSTRUCTIONS SOON POSSIBLE. BLOOD THINNERS: Aspirin , Coumadin, Plavix, Eliquis, Pradaxa, Xarelto, Lovenox, Brilinta, Effient, Savaysa, Arixtra, etc - Stop Vitamin E, fish oil, multivitamins, Marijuana, CBD oil and other over the counter herbals and dietary supplements 7 days before surgery. -This would not apply to cancer patients who are prescribed Marinol or any other prescription form on marijuana or CBD. Medications: Approved medications to take the morning of surgery with a sip of water: BP, HCTZ, Heart, thyroid, psych, seizure, and pain medications excluding NSAIDS. Use inhalers as prescribed. Please bring inhalers. Diabetes Please follow up with the provider that manages your diabetes and how to prepare you for surgery. If you are taking the following medications for Type 2 diabetes: Canagliflozin (INVOKANA), dapagliflozin (FARXIGA), and empagliflozin (JARDIANCE) should each be discontinued at least 3 days before scheduled surgery. Ertugliflozin (STEGLATRO) should be discontinued at least four days before scheduled surgery. If you have a stimulator, implant or pump that requires a remote please bring the remote with you day of surgery. Erectile dysfunction: If you take any medications for erectile dysfunction- Cialis (Tadalafil), Levitra, Staxyn, (Vardenafil), Viagra (Sildenenafil). Please do not take these for 48 hours before surgery. Pain Medications: Tylenol for pain as needed and if you are not allergic to. If you start any new medications after today's visit, please contact the surgeon's office. Important Reminders: - If you use CPAP/BIPAP, bring the machine with you to the surgery center. - If you are prescribed inhalers for breathing, continue using them AND bring them to the surgery center. - Candy, mints, gum and tobacco products are NOT permitted the morning of surgery. - Hearing aids, dentures and glasses may be worn the morning of surgery. - NO jewelry, body piercings, makeup, hairpins or contacts are to be worn the day of surgery. -Oral hygiene and a shower or bath is required the evening before or the morning of surgery. Use the Hibiclens body wash supplied to you along with the instruction. - NO lotion, creams, powders or deodorants on the skin the day of surgery -Wear loose, comfortable clothing that will accommodate bandages. -Your length of stay will be determined by your surgeon - You will need to have someone else (Family or friend) drive you home once discharged from the hospital. You are not allowed to drive yourself home after surgery. - YOU MUST HAVE A RESPONSIBLE MERCHANDISING LEAD TAKE YOU HOME. A TICKET MAKER, CAB OR UBER MERCHANDISING LEAD CANNOT BE MADEA RESPONSIBLE MERCHANDISING LEAD. - You cannot stay in a hotel alone after outpatient surgery. You will not be permitted to have yoursurgery, if you do not have someone to take care of you. If you develop symptoms such as a fever, cold, or flu, or have other changes to your health within TWO DAYS of scheduled surgery or the morning of surgery, please contact the surgery center above. Personal Belongings: - Leave ALL valuables and money at home or with family members. - You will need a form of ID and insurance card to check in the morning of surgery. - You will have to wear a hospital gown during your stay but if you wish to bring undergarments forafter surgery you may. Orthopedic patients having surgery [facility] listed as outpatient should bring their walker into the building. Orthopedic patients having surgery [facility] listed as to be admitted should leave their walkers in the car or with a family member. Sahara Barrett APRN.CNP 10/15/22 documented in this encounterW[facility]04-10-2023 Miscellaneous Notes* Telephone Encounter - Sarah Main - 10/14/2022 11:20 AM EDT Last appointment: 03/25/22 Next appointment: N/A Pharmacy verified in [facility]. Refill(s) requested: Requested Prescriptions Pending Prescriptions Disp Refills methylphenidate ER 18 mg tablet 30 tablet 0 Sig: Take 1 tablet by mouth every morning for 30 days. Order(s) pended. Please advise. Sarah Main CMA documented in this encounterWyandot [facility]03-01-2023 NoteHNO ID: [id number] Author: Clifford Valenzuela DPM Service: ? Author Type: Physician Type: Progress Notes Filed: 09/16/2022 8:39 PM Note Text: Chief Complaint: Bilateral ingrown toenails HPI: This 21 year old female with PMH indicated below presents for follow up partal temporary nail avulsion to the B/L hallux. Patient states pain has greatly improved no signs of reoccurance. Denies any redness or drainage. Patient is scheduled for mallet toe surgery 2-5 of the right foot in October 2022. Denies consitutional symptoms. 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 propranolol (INDERAL) 20 mg tablet Take 1 tablet by mouth three times daily. methylphenidate ER 18 mg tablet Take 1 tablet by mouth every morning for 90 days. Do not start before August 09, 2022. MULTIVITAMIN ORAL Take by mouth once daily. albuterol HFA (PROVENTIL HFA, VENTOLIN HFA) 90 mcg/actuation inhaler Inhale 2 Puffs as instructed every 4 hours as needed. albuterol (PROVENTIL) 2.5 mg /3 mL (0.083 %) nebulizer solution 1 vial contains 3 ml. 1 unit dose every 4 hours as needed acetaminophen (TYLENOL) 325 mg tablet Take 2 tablets by mouth every 6 hours as needed. No current facility-administered medications for this visit. : ALLERGIES Allergen Reactions Penicillins Rash Versed [Midazolam H* Mental Status Change Hydrocodone-Acetami* Swelling Omnicef [Cefdinir] Swelling Gluten GI Upset Latex Swelling : PAST SURGICAL HISTORY Procedure Laterality Date DENTAL SURGERY HX 2011 Simple extraction of primary teeth #A, #B, #C, #H, #I, #J, #M, #N, and #R. EGD 2019 OSTECTOMY TARSAL COALITION Right 04/06/2015 [facility] PAST SURGICAL HISTORY OF 11/21/2003 tear duct surgery bilateral REMOVE TONSIL AND ADENOI UNDER AGE 14 02/12/2010 FAMILY HISTORY Problem Relation Age of Onset Allergies Father Asthma Brother Allergies Maternal Grandmother Hypertension Maternal Grandfather Allergies Maternal Grandfather Heart Maternal Grandfather mat side/pat side : Social History Tobacco Use Smoking status: Never Passive exposure: Never Smokeless tobacco: Never Vaping Use Vaping Use: Never used Substance Use Topics Alcohol use: No Drug use: No REVIEW OF SYSTEMS See MA note MSK: + as noted in HPI. Physical Examination: On General Observation: Patient is a pleasant, cooperative, well developed 21 year old adult female. The patient is alert and oriented to time, place and person. Patient has normal affect and mood. Resp 20 Ht 157.5 cm (5' 2 ) Wt 55.3 kg (122 lb) LMP 05/09/2022 (Approximate) BMI 22.31 kg/m? Examination of both lower extremities: Satisfactory alignment. No gross deformity is noted. Normal alignment in stance. Peripheral pulses are palpable. Capillary refill time is less than 3 seconds to all toes. The skin is warm and dry. No rashes or lesions. There are no open wounds or signs of infection, There is no lymphadenopathy noted. Peripheral sensation and reflexes are intact, bilateral and symmetrical. Motor strength is 5/5 of all groups. Normal range of motion, stability and coordination of both lower extremities. Previous nail avulsion sites to the B/L hallux are well healed without signs of erythema or drainage. Right foot with mallet toes 2 through 4, DIPJ flexion contracture with tenderness on palpation. ASSESSMENT: This 21 year old female patient presents today for follow up ingrowing nails and mallet toe deformity. Plan: Previous avulstion sites healed No signs of recurrent ingrowing nail A comprehensive history and physical examination were preformed. The patient was educated on clinical and radiographic findings, diagnosis and treatment plans. Patient states that she understands all that has been explained and all questions were answered to her apparent satisfaction. Educated patient on conservative and surgical treatment options. The patient understands all explained to her and would like to proceed with surgical intervention. I've recommended: Correction of second, third, and fourth, and fifth toes, right foot. Flexor tenotomy of second, third, and fourth toes, right foot. Consent signed previously. Patient was educated on the details of the procedures as well as medically reasonable risks, benefits, alternatives and prognosis. Patient was also educated on perioperative management including preoperative medical clearance, preope (more content not included)...[facility] 09-04-2022 History of Present illness Narrative* Clifford Valenzuela, RILEY - 09/04/2022 8:29 AM EST Chief Complaint: Bilateral ingrown toenails HPI: This 21 year old female with PMH indicated below presents for follow up partal temporary nail avulsion to the B/L hallux. Patient states pain has greatly improved no signs of reoccurance. Deniesany redness or drainage. Patient is scheduled for mallet toe surgery 2-5 of the right foot in October2022. Denies consitutional symptoms. 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 propranolol (INDERAL) 20 mg tablet Take 1 tablet by mouth three times daily. methylphenidate ER 18 mg tablet Take 1 tablet by mouth every morning for 90 days. Do not start before August 09, 2022. MULTIVITAMIN ORAL Take by mouth once daily. albuterol HFA (PROVENTIL HFA, VENTOLIN HFA) 90 mcg/actuation inhaler Inhale 2 Puffs as instructed every 4 hours as needed. albuterol (PROVENTIL) 2.5 mg /3 mL (0.083 %) nebulizer solution 1 vial contains 3 ml. 1 unit dose every 4 hours as needed acetaminophen (TYLENOL) 325 mg tablet Take 2 tablets by mouth every 6 hours as needed. No current facility-administered medications for this visit. : ALLERGIES Allergen Reactions Penicillins Rash Versed [Midazolam H* Mental Status Change Hydrocodone-Acetami* Swelling Omnicef [Cefdinir] Swelling Gluten GI Upset Latex Swelling : PAST SURGICAL HISTORY Procedure Laterality Date DENTAL SURGERY HX 2011 Simple extraction of primary teeth #A, #B, #C, #H, #I, #J, #M, #N, and #R. EGD 2019 OSTECTOMY TARSAL COALITION Right 04/06/2015 [facility] PAST SURGICAL HISTORY OF 11/21/2003 tear duct surgery bilateral REMOVE TONSIL AND ADENOI UNDER AGE 14 02/12/2010 FAMILY HISTORY Problem Relation Age of Onset Allergies Father Asthma Brother Allergies Maternal Grandmother Hypertension Maternal Grandfather Allergies Maternal Grandfather Heart Maternal Grandfather mat side/pat side : Social History Tobacco Use Smoking status: Never Passive exposure: Never Smokeless tobacco: Never Vaping Use Vaping Use: Never used Substance Use Topics Alcohol use: No Drug use: No REVIEW OF SYSTEMS See MA note MSK: + as noted in HPI. Physical Examination: On General Observation: Patient is a pleasant, cooperative, well developed 21 year old adult female. The patient is alert and oriented to time, place and person. Patient has normal affect and mood. Resp 20 Ht 157.5 cm (5' 2 ) Wt 55.3 kg (122 lb) LMP 05/09/2022 (Approximate) BMI 22.31 kg/m Examination of both lower extremities: Satisfactory alignment. No gross deformity is noted. Normal alignment in stance. Peripheral pulses are palpable. Capillary refill time is less than 3 seconds to all toes. The skin is warm and dry. Norashes or lesions. There are no open wounds or signs of infection, There is no lymphadenopathy noted. Peripheral sensation and reflexes are intact, bilateral and symmetrical. Motor strength is 5/5 ofall groups. Normal range of motion, stability and coordination of both lower extremities. Previous nail avulsion sites to the B/L hallux are well healed without signs of erythema or drainage. Right foot with mallet toes 2 through 4, DIPJ flexion contracture with tenderness on palpation. ASSESSMENT: This 21 year old female patient presents today for follow up ingrowing nails and mallet toe deformity. Plan: Previous avulstion sites healed No signs of recurrent ingrowing nail A comprehensive history and physical examination were preformed. The patient was educated on clinical and radiographic findings, diagnosis and treatment plans. Patient states that she understands allthat has been explained and all questions were answered to her apparent satisfaction. Educated patient on conservative and surgical treatment options. The patient understands all explained to her and would like to proceed with surgical intervention. I've recommended: Correction of second, third, and fourth, and fifth toes, right foot. Flexor tenotomy of second, third, and fourth toes, right foot. Consent signed previously. Patient was educated on the details of the procedures as well as medically reasonable risks, benefits, alternatives and prognosis. Patient was also educated on perioperative management including preoperative medical clearance, preoperative physical therapy consultation, postoperative care and rehabi litation, anticipated time to full weightbearing, return to shoes and maximum medical improvement. Lastly patient was educated to their apparent understanding on potential complications including butnot limited to infection, recurrence, over correction or under correction, persistent pain, swelling or disability, nerve injury or entrapment, bone and soft tissue healing complications, complications with anesthesia and deep vein thrombosis or pulmonary embolism. All questions were answered to the patient s apparent satisfaction. No guarantees were given as to the outcome of the surgery. - FU after surgery Kaveh Trevino DPM PGY-3 I personally saw and evaluated the patient. I reviewed the resident's note. I agree with the resident's assessment and plan unless otherwise noted. Clifford Valenzuela DPM, FACFAS documented in this encounterWyandot [facility]02-23-2023 NoteHNO ID: [id number] Author: Beckie Juarez APRN.INDUSTRIAL RENDERER Service: ? Author Type: Nurse Practitioner Type: Progress Notes Filed: 08/29/2022 8:39 AM Note Text: PEDIATRIC SICK VISIT SERVICE DATE: 08/29/2022 SUBJECTIVE: Polina Alejandre is a 21 year old presenting to clinic. Patient presents with: Ear Pain: Bilateral, pain and pressure x 3.5 weeks intermittently. No known fevers. Facial pain : with pressure x 7-10 days. Intermittent. Nasal Congestion: x 7-10 days, worsening in the last 4 days. History was obtained from: patient Current symptoms: FEVER: not present at this time, possible tactile fever yesterday EYE SYMPTOMS: not present at this time NASAL CONGESTION: for 7-10 day(s) EAR SYMPTOMS: present for 3.5 weeks, intermittent COUGH: intermittent, with drainage SORE THROAT: intermittent with drainage HEADACHE: present now, under eye pressure VOMITING: not present at this time NAUSEA: not present at this time DIARRHEA: not present at this time ABDOMINAL PAIN: not present at this time RASH: not present at this time GENERAL: Decreased activity Appetite: no significant change Sick contacts: No known sick contacts 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 History of Penicillin Allergy Urticaria Due to Drug Allergy Adverse Effect of Cephalosporins and Other Beta-Lactam Antibiotics, Initial Encounter Seasonal Allergic Rhinitis Due to Pollen Migraine Without Aura and Without Status Migrainosus, Not Intractable Elevated Blood Pressure Reading Without Diagnosis of Hypertension PAST MEDICAL HISTORY Diagnosis Date Acquired mallet toe of left foot Delayed emergence from anesthesia 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 EGD 2019 OSTECTOMY TARSAL COALITION Right 04/06/2015 [facility] PAST SURGICAL HISTORY OF 11/21/2003 tear duct surgery bilateral REMOVE TONSIL AND ADENOI UNDER AGE 14 02/12/2010 Allergies: ALLERGIES Allergen Reactions Penicillins Rash Versed [Midazolam H* Mental Status Change Hydrocodone-Acetami* Swelling Omnicef [Cefdinir] Swelling Gluten GI Upset Latex Swelling Medications: methylphenidate ER 18 mg tablet Take 1 tablet by mouth every morning for 30 days. propranolol (INDERAL) 20 mg tablet Take 1 tablet by mouth three times daily. methylphenidate ER 18 mg tablet Take 1 tablet by mouth every morning for 90 days. Do not start before August 09, 2022. MULTIVITAMIN ORAL Take by mouth once daily. albuterol HFA (PROVENTIL HFA, VENTOLIN HFA) 90 mcg/actuation inhaler Inhale 2 Puffs as instructed every 4 hours as needed. albuterol (PROVENTIL) 2.5 mg /3 mL (0.083 %) nebulizer solution 1 vial contains 3 ml. 1 unit dose every 4 hours as needed acetaminophen (TYLENOL) 325 mg tablet Take 2 tablets by mouth every 6 hours as needed. doxycycline monohydrate 100 mg tablet Take 1 tablet by mouth twice daily for 5 days. OBJECTIVE: BP 120/64 Pulse 88 Temp 36.6 ?C (97.8 ?F) (Temporal Artery) Resp 16 Wt 55.6 kg (122 lb 8 oz) LMP 05/09/2022 (Approximate) BMI 22.41 kg/m? General: well appearing, alert and active in no apparent distress Eyes: conjunctiva clear, PERRL Ears: TMs translucent bilaterally, normal landmarks noted Nose: clear rhinorrhea/nasal congestion OP: no lesions, no erythema, moist mucous membranes, no tonsillar hypertrophy Neck: supple, no adenopathy Lungs: clear to auscultation bilaterally, good air exchange, no wheezes or crackles CVS: Normal rate, regular rhythm, no murmur Skin: No rashes, lesions or skin changes ASSESSMENT/PLAN: Encounter Diagnosis ICD-10-CM 1. Acute sinusitis, recurrence not specified, unspecified location J01.90 doxycycline monohydrate 100 mg tablet - Treatment with abx for persistent/worsening symptoms - Continue supportive care: steam/humidifier, nasal saline, honey as needed for cough/congestion. May trial pseudoephedrine for pain and pressure - Return to clinic if symptoms are not improving within 48-72 hours of starting antibiotics, for worsening symptoms, or other concerns SIGNATURE: Beckie Juarez APRN.CNP PATIENT NAME: Polina Alejandre DATE: August 29, 2022 TIME: 8:23 [facility]02-16-2023 Miscellaneous Notes* Telephone Encounter - Eileen Gutiérrez DO - 08/22/2022 11:20 AM EST Mom aware that prescription was sent in' Eileen Gutiérrez DO * Telephone Encounter - Kelly Pressley LPN - 08/22/2022 10:00 AM EST The pharmacy pt uses does not have the Concerta on hand and pt has been out of medication x 2 days.Pt found it at [facility] and wonders if Rx's can be sent there. Pt would like called when Rx's are sent in. New Rx's pended for review. Pharmacy info was updated. documented in this encounterWyandot [facility] Hospital02-03-2023 NoteHNO ID: [id number] Author: Janina Adams LPN Service: ? Author Type: LICENSED NURSE Type: Progress Notes Filed: 08/12/2022 8:51 PM Note Text: Prepared two 10cc syringes with 3cc bupivacaine 3cc lidocaine with 25 gauge needles and gave to MD for injection - Janina Adams [facility]02-03-2023 NoteHNO ID: [id number] Author: Clifford Valenzuela DPM Service: ? Author Type: Physician Type: Progress Notes Filed: 08/12/2022 8:51 PM Note Text: Chief Complaint: Bilateral ingrown toenails HPI: This 21 year old female with PMH indicated below presents complaining of pain to bilateral great toes. Has had hx of ingrowing to her toenails. Would like procedure today. Denies any redness or drainage. Denies consitutional symptoms. 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 Do not start before August 09, 2022. traMADol (ULTRAM) 50 mg tablet Take 1 tablet by mouth every 4 hours as needed for pain. propranolol (INDERAL) 20 mg tablet Take 1 tablet by mouth three times daily. MULTIVITAMIN ORAL Take by mouth once daily. albuterol HFA (PROVENTIL HFA, VENTOLIN HFA) 90 mcg/actuation inhaler Inhale 2 Puffs as instructed every 4 hours as needed. albuterol (PROVENTIL) 2.5 mg /3 mL (0.083 %) nebulizer solution 1 vial contains 3 ml. 1 unit dose every 4 hours as needed acetaminophen (TYLENOL) 325 mg tablet Take 2 tablets by mouth every 6 hours as needed. methylphenidate ER 18 mg tablet Take 1 tablet by mouth every morning for 30 days. crutches, aluminum Use as directed. (Patient not taking: Reported on 08/09/2022) No current facility-administered medications for this visit. : ALLERGIES Allergen Reactions Penicillins Rash Versed [Midazolam H* Mental Status Change Hydrocodone-Acetami* Swelling Omnicef [Cefdinir] Swelling Gluten GI Upset Latex Swelling : PAST SURGICAL HISTORY Procedure Laterality Date DENTAL SURGERY HX 2011 Simple extraction of primary teeth #A, #B, #C, #H, #I, #J, #M, #N, and #R. EGD 2019 OSTECTOMY TARSAL COALITION Right 04/06/2015 [facility] PAST SURGICAL HISTORY OF 11/21/2003 tear duct surgery bilateral REMOVE TONSIL AND ADENOI UNDER AGE 14 02/12/2010 FAMILY HISTORY Problem Relation Age of Onset Allergies Father Asthma Brother Allergies Maternal Grandmother Hypertension Maternal Grandfather Allergies Maternal Grandfather Heart Maternal Grandfather mat side/pat side : Social History Tobacco Use Smoking status: Never Smokeless tobacco: Never Vaping Use Vaping Use: Never used Substance Use Topics Alcohol use: No Drug use: No REVIEW OF SYSTEMS See MA note MSK: + as noted in HPI. Physical Examination: On General Observation: Patient is a pleasant, cooperative, well developed 21 year old adult female. The patient is alert and oriented to time, place and person. Patient has normal affect and mood. Resp 18 Ht 157.5 cm (5' 2 ) Wt 54.4 kg (120 lb) LMP 05/09/2022 (Approximate) BMI 21.95 kg/m? Examination of both lower extremities: Satisfactory alignment. No gross deformity is noted. Normal alignment in stance. Peripheral pulses are palpable. Capillary refill time is less than 3 seconds to all toes. The skin is warm and dry. No rashes or lesions. There are no open wounds or signs of infection, There is no lymphadenopathy noted. Peripheral sensation and reflexes are intact, bilateral and symmetrical. Motor strength is 5/5 of all groups. Normal range of motion, stability and coordination of both lower extremities. There is incurvation to bilateral borders of nail, bilateral hallux. ASSESSMENT: This 21 year old female patient presents today with ingrowing toenail of hallux bilaterally Plan: - A comprehensive history and physical examination were preformed. The patient was educated on clinical and radiographic findings, diagnosis and treatment plans. Patient state that she understands all that has been explained and all questions were answered to her apparent satisfaction. - Etiology and treatment options were discussed with the patient. - Discussed partial temporary nail avulsion of medial and lateral border of hallux, b/l great toes. She elects to proceed - See procedure note below - Home going instructions provided - FU in 4 weeks Nicci Vera DPM PGY-3 NAIL REMOVAL Nail Removal Date/Time: 08/11/2022 11:26 AM Performed by: Clifford Valenzuela DPM Authorized by: Clifford Valenzuela DPM Informed Consent Consent Obtained: Verbal [place] Protocol SIGN IN TIME OUT Nail removal extremity: bilateral great toe. Anesthesia Details: Local anesthetic: Lidocaine 2% without epinephrine and bupivacaine 0.5% without epinephrine Anesthetic total (ml): 3 ml to each great toe. Procedure (more content not included)...[facility]02-03-2023 History of Present illness Narrative* Janina Adams LPN - 08/09/2022 3:07 PM EST Prepared two 10cc syringes with 3cc bupivacaine 3cc lidocaine with 25 gauge needles and gave to for injection - Janina Adams LPN * Clifford Valenzuela DPM - 08/09/2022 2:54 PM ESTAssociated Order(s): Nail Removal Post-Procedure Diagnose(s): Ingrowing nail Chief Complaint: Bilateral ingrown toenails HPI: This 21 year old female with PMH indicated below presents complaining of pain to bilateral great toes. Has had hx of ingrowing to her toenails. Would like procedure today. Denies any redness or drainage. Denies consitutional symptoms. 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 Do not start before August 09, 2022. traMADol (ULTRAM) 50 mg tablet Take 1 tablet by mouth every 4 hours as needed for pain. propranolol (INDERAL) 20 mg tablet Take 1 tablet by mouth three times daily. MULTIVITAMIN ORAL Take by mouth once daily. albuterol HFA (PROVENTIL HFA, VENTOLIN HFA) 90 mcg/actuation inhaler Inhale 2 Puffs as instructed every 4 hours as needed. albuterol (PROVENTIL) 2.5 mg /3 mL (0.083 %) nebulizer solution 1 vial contains 3 ml. 1 unit dose every 4 hours as needed acetaminophen (TYLENOL) 325 mg tablet Take 2 tablets by mouth every 6 hours as needed. methylphenidate ER 18 mg tablet Take 1 tablet by mouth every morning for 30 days. crutches, aluminum Use as directed. (Patient not taking: Reported on 08/09/2022) No current facility-administered medications for this visit. : ALLERGIES Allergen Reactions Penicillins Rash Versed [Midazolam H* Mental Status Change Hydrocodone-Acetami* Swelling Omnicef [Cefdinir] Swelling Gluten GI Upset Latex Swelling : PAST SURGICAL HISTORY Procedure Laterality Date DENTAL SURGERY HX 2011 Simple extraction of primary teeth #A, #B, #C, #H, #I, #J, #M, #N, and #R. EGD 2019 OSTECTOMY TARSAL COALITION Right 04/06/2015 [facility] PAST SURGICAL HISTORY OF 11/21/2003 tear duct surgery bilateral REMOVE TONSIL AND ADENOI UNDER AGE 14 02/12/2010 FAMILY HISTORY Problem Relation Age of Onset Allergies Father Asthma Brother Allergies Maternal Grandmother Hypertension Maternal Grandfather Allergies Maternal Grandfather Heart Maternal Grandfather mat side/pat side : Social History Tobacco Use Smoking status: Never Smokeless tobacco: Never Vaping Use Vaping Use: Never used Substance Use Topics Alcohol use: No Drug use: No REVIEW OF SYSTEMS See MA note MSK: + as noted in HPI. Physical Examination: On General Observation: Patient is a pleasant, cooperative, well developed 21 year old adult female. The patient is alert and oriented to time, place and person. Patient has normal affect and mood. Resp 18 Ht 157.5 cm (5' 2 ) Wt 54.4 kg (120 lb) LMP 05/09/2022 (Approximate) BMI 21.95 kg/m Examination of both lower extremities: Satisfactory alignment. No gross deformity is noted. Normal alignment in stance. Peripheral pulses are palpable. Capillary refill time is less than 3 seconds to all toes. The skin is warm and dry. Norashes or lesions. There are no open wounds or signs of infection, There is no lymphadenopathy noted. Peripheral sensation and reflexes are intact, bilateral and symmetrical. Motor strength is 5/5 ofall groups. Normal range of motion, stability and coordination of both lower extremities. There is incurvation to bilateral borders of nail, bilateral hallux. ASSESSMENT: This 21 year old female patient presents today with ingrowing toenail of hallux bilaterally Plan: - A comprehensive history and physical examination were preformed. The patient was educated on clinical and radiographic findings, diagnosis and treatment plans. Patient state that she understands all that has been explained and all questions were answered to her apparent satisfaction. - Etiology and treatment options were discussed with the patient. - Discussed partial temporary nail avulsion of medial and lateral border of hallux, b/l great toes.She elects to proceed - See procedure note below - Home going instructions provided - FU in 4 weeks Nicci Vera DPM PGY-3 NAIL REMOVAL Nail Removal Date/Time: 08/11/2022 11:26 AM Performed by: Clifford Valenzuela DPM Authorized by: Clifford Valenzuela DPM Informed Consent Consent Obtained: Verbal [place] Protocol SIGN IN TIME OUT Nail removal extremity: bilateral great toe. Anesthesia Details: Local anesthetic: Lidocaine 2% without epinephrine and bupivacaine 0.5% without epinephrine Anesthetic total (ml): 3 ml to each great toe. Procedure Details: Preparation: Skin prepped with alcohol, skin prepped with Betadine and sterile field established Amount removed: Partial Side: Lateral and medial Wedge excision of skin of nail fold: No Nail bed sutured?: No Nail matrix removed: None Dressing applied: Antibiotic ointment, Xeroform gauze and 4x4 sterile gauze Patient education: Patient education given out at the end of procedure I personally saw and evaluated the patient. I reviewed the resident's note. I agree with the resident's assessment and plan unless otherwise noted. Clifford Valenzuela DPM, FACFAS documented in this encounterW[facility] NoteHNO ID: [id number] Author: Clifford Valenzuela DPM Service: ? Author Type: Physician Type: Progress Notes Filed: 07/30/2022 7:11 PM Note Text: DOS: 05/29/2022 POD: 61 days Procedure: Correction of second, third, and fourth, and fifth toes, left foot. Flexor tenotomy of second, third, and fourth toes, left foot. This 21 year old female presents for a post op visit. Patient states they are doing well. Pain is described as a tightness under the ball of her foot. No longer taking analgesics. Patient has been weightbearing as tolerated to the left lower extremity in regular shoes and states she is happy with the result. Patient is interested in scheduling similar surgery for the right foot sometime in October. States that her right foot is painful due to the toe deformities. Denies any current nausea, vomiting, fever, chills, shortness of breath, chest pain or calf pain. Patient also complains of bilateral hallux ingrown toenails that she regularly has to take out. Is interested in nail avulsions. No other pedal complaints. 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 [START ON 08/09/2022] methylphenidate ER 18 mg tablet Take 1 tablet by mouth every morning for 90 days. Do not start before August 09, 2022. traMADol (ULTRAM) 50 mg tablet Take 1 tablet by mouth every 4 hours as needed for pain. crutches, aluminum Use as directed. propranolol (INDERAL) 20 mg tablet Take 1 tablet by mouth three times daily. MULTIVITAMIN ORAL Take by mouth once daily. albuterol HFA (PROVENTIL HFA, VENTOLIN HFA) 90 mcg/actuation inhaler Inhale 2 Puffs as instructed every 4 hours as needed. albuterol (PROVENTIL) 2.5 mg /3 mL (0.083 %) nebulizer solution 1 vial contains 3 ml. 1 unit dose every 4 hours as needed acetaminophen (TYLENOL) 325 mg tablet Take 2 tablets by mouth every 6 hours as needed. No current facility-administered medications for this visit. ALLERGIES Allergen Reactions Penicillins Rash Versed [Midazolam H* Mental Status Change Hydrocodone-Acetami* Swelling Omnicef [Cefdinir] Swelling Gluten GI Upset Latex Swelling Objective: Patient presents weightbearing as tolerated to left leg in regular shoes. Problem focus examination to the left lower extremity: Incision site is well healed. Mild erythema and edema surrounding surgical site. No drainage. No lymphadenopathy. No lymphangitis. No surrounding cellulitis. No signs of infection. Satisfactory position of toes 2-4 of the left foot. No pain to palpation of digits 2-4. Noted ingrown medial and lateral borders to the bilateral hallux with no signs of infection, no drainage, no erythema. Hallux borders are tender to palpation. Right foot with mallet toes 2 through 4, DIPJ flexion contracture with tenderness on palpation. Patient has no pain to palpation of calf. The calf is soft, supple and nontender without evidence of DVT. Negative Joan's test. Satisfactory alignment is noted. Pedal pulses are palpable. Capillary refill time is less than three seconds to all digits. Sensations are intact to light touch. Radiographs 3 views AP, MO, and LAT of the left foot (06/05/22) Hardware intact without breakage or loosening. Reduction of hammertoes of the 2nd, 3rd, and 4th digit of the left foot. Triplane position is maintained. No acute destructive changes. No soft tissue gas. No complications seen. Assessment: Satisfactory post-operative progress. Patient with mallet toes to right foot and ingrown toenails bilateral foot. Plan: The patient was educated on clinical examination findings, postoperative prognosis and protocol. All questions were answered to patient's apparent satisfaction. A comprehensive history and physical examination were preformed. The patient was educated on clinical and radiographic findings, diagnosis and treatment plans. Patient states that she understands all that has been explained and all questions were answered to her apparent satisfaction. Educated patient on conservative and surgical treatment options. The patient understands all explained to her and would like to proceed with surgical intervention. I've recommended: Correction of second, third, and fourth, and fifth toes, right foot. Flexor tenotomy of second, third, and fourth toes, right foot. Patient was educated on the details of the procedures as well as medically reasonable risks, benefits, alternatives and prognosis. Patient was also (more content not included)...[facility]01-12[facility] History of Present illness Narrative* Clifford Valenzuela, RILEY - 07/18/2022 9:20 AM EST DOS: 05/29/2022 POD: 61 days Procedure: Correction of second, third, and fourth, and fifth toes, left foot. Flexor tenotomy of second, third, and fourth toes, left foot. This 21 year old female presents for a post op visit. Patient states they are doing well. Pain is described as a tightness under the ball of her foot. No longer taking analgesics. Patient has been weightbearing as tolerated to the left lower extremity in regular shoes and states she is happy with the result. Patient is interested in scheduling similar surgery for the right foot sometime in October.States that her right foot is painful due to the toe deformities. Denies any current nausea, vomiting, fever, chills, shortness of breath, chest pain or calf pain. Patient also complains of bilateralhallux ingrown toenails that she regularly has to take out. Is interested in nail avulsions. No other pedal complaints. 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 [START ON 08/09/2022] methylphenidate ER 18 mg tablet Take 1 tablet by mouth every morning for 90 days. Do not start before August 09, 2022. traMADol (ULTRAM) 50 mg tablet Take 1 tablet by mouth every 4 hours as needed for pain. crutches, aluminum Use as directed. propranolol (INDERAL) 20 mg tablet Take 1 tablet by mouth three times daily. MULTIVITAMIN ORAL Take by mouth once daily. albuterol HFA (PROVENTIL HFA, VENTOLIN HFA) 90 mcg/actuation inhaler Inhale 2 Puffs as instructed every 4 hours as needed. albuterol (PROVENTIL) 2.5 mg /3 mL (0.083 %) nebulizer solution 1 vial contains 3 ml. 1 unit dose every 4 hours as needed acetaminophen (TYLENOL) 325 mg tablet Take 2 tablets by mouth every 6 hours as needed. No current facility-administered medications for this visit. ALLERGIES Allergen Reactions Penicillins Rash Versed [Midazolam H* Mental Status Change Hydrocodone-Acetami* Swelling Omnicef [Cefdinir] Swelling Gluten GI Upset Latex Swelling Objective: Patient presents weightbearing as tolerated to left leg in regular shoes. Problem focus examination to the left lower extremity: Incision site is well healed. Mild erythema and edema surrounding surgical site. No drainage. No lymphadenopathy. No lymphangitis. No surrounding cellulitis. No signs of infection. Satisfactory position of toes 2-4 of the left foot. No pain to palpation of digits 2-4. Noted ingrown medial and lateral borders to the bilateral hallux with no signs of infection, no drainage, no erythema. Hallux borders are tender to palpation. Right foot with mallet toes 2 through 4, DIPJ flexion contracture with tenderness on palpation. Patient has no pain to palpation of calf. The calf is soft, supple and nontender without evidence of DVT. Negative Joan's test. Satisfactory alignment is noted. Pedal pulses are palpable. Capillary refill time is less than three seconds to all digits. Sensations are intact to light touch. Radiographs 3 views AP, MO, and LAT of the left foot (06/05/22) Hardware intact without breakage or loosening. Reduction of hammertoes of the 2nd, 3rd, and 4th digit of the left foot. Triplane position is maintained. No acute destructive changes. No soft tissue gas. No complications seen. Assessment: Satisfactory post-operative progress. Patient with mallet toes to right foot and ingrown toenails bilateral foot. Plan: The patient was educated on clinical examination findings, postoperative prognosis and protocol. All questions were answered to patient's apparent satisfaction. A comprehensive history and physical examination were preformed. The patient was educated on clinical and radiographic findings, diagnosis and treatment plans. Patient states that she understands allthat has been explained and all questions were answered to her apparent satisfaction. Educated patient on conservative and surgical treatment options. The patient understands all explained to her and would like to proceed with surgical intervention. I've recommended: Correction of second, third, and fourth, and fifth toes, right foot. Flexor tenotomy of second, third, and fourth toes, right foot. Patient was educated on the details of the procedures as well as medically reasonable risks, benefits, alternatives and prognosis. Patient was also educated on perioperative management including preoperative medical clearance, preoperative physical therapy consultation, postoperative care and rehabi litation, anticipated time to full weightbearing, return to shoes and maximum medical improvement. Lastly patient was educated to their apparent understanding on potential complications including butnot limited to infection, recurrence, over correction or under correction, persistent pain, swelling or disability, nerve injury or entrapment, bone and soft tissue healing complications, complications with anesthesia and deep vein thrombosis or pulmonary embolism. All questions were answered to the patient s apparent satisfaction. No guarantees were given as to the outcome of the surgery. Medical clearance pending and surgical scheduling to follow. - Patient to continue weightbearing as tolerated to the operative extremity. Continue regular shoe gear. Activities as tolerated. -Consent signed for surgery, right foot. -RTC in 3 weeks for hallux ingrown toenail procedures. Gadiel Barger DPM PGY-3 Total patient care time w/ pt was at least 45 minutes w/ at least 50% of the time spent reviewing the results of the recent imaging including XR, counseling the pt on treatment options and coordinating their care. I personally saw and evaluated the patient. I reviewed the resident's note. I agree with the resident's assessment and plan unless otherwise noted. Clifford Valenzuela DPM, FACFAS documented in this encounterWyandot [facility]12-16-2022 Miscellaneous Notes* Telephone Encounter - Jesenia Mann RN - 06/21/2022 9:14 AM EST Patient left message on RN line today at 8:30 wanting to talk about an unspecified medication refill. Patient requested call back to [phone]. Called patient. She had an insurance change in the last couple of months, new insurance does not cover 90 day Rxs at the pharmacy so when she filled her Concerta on May 21, she was only given 30. Dr. Gutiérrez issued new Rxs but not to start until July 09, and she only has two left from the Nov refill (did not take it for a couple days when she had surgery). Patient would like a phone call when resolved. She is asking for Rx now or she will be out of medication for two weeks. documented in this encounterWyandot [facility]12-05-2022 Miscellaneous Notes* Telephone Encounter - Anselmo Posadas - 06/10/2022 12:20 PM EST Patient needs a new rx for Concerta - 30 days, insurance won't cover a 90 day. * Telephone Encounter - Keisha Rojas - 06/10/2022 11:19 AM EST [facility] pharmacy in [place] called today on 06/10/22 regards to patients medication Concerta. Pharmacy stated that Dr. Gutiérrez prescribed patient with a 90 day supply and patients insurance only covers a 30 day supply. Pharmacy filled a 30 day supply of Concerta instead of 90 day supply. Void of 60 day supply. Pharmacy stated patient needs a new prescription. Please advise. documented in this encounterWyandot [facility]11-30-2022 History of Present illness Narrative* Clifford Valenzuela, RILEY - 06/05/2022 9:53 AM EST DOS: 05/29/2022 POD: 7 days Procedure: Correction of second, third, and fourth, and fifth toes, left foot. Flexor tenotomy of second, third, and fourth toes, left foot. This 21 year old female presents for a post op visit. Patient states they are doing well. Pain is well controlled by tramadol . Has been icing and elevating the extremity as instructed preoperativelyand has been weightbearing as tolerated to the left lower extremity in a surgical shoe. Denies any current nausea, vomiting, fever, chills, shortness of breath, chest pain or calf pain. Has not been taking Aspirin for DVT prophylaxis. Denies any other pedal complaints. 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 crutches, aluminum Use as directed. methylphenidate ER 18 mg tablet Take 1 tablet by mouth every morning for 90 days. propranolol (INDERAL) 20 mg tablet Take 1 tablet by mouth three times daily. MULTIVITAMIN ORAL Take by mouth once daily. albuterol HFA (PROVENTIL HFA, VENTOLIN HFA) 90 mcg/actuation inhaler Inhale 2 Puffs as instructed every 4 hours as needed. albuterol (PROVENTIL) 2.5 mg /3 mL (0.083 %) nebulizer solution 1 vial contains 3 ml. 1 unit dose every 4 hours as needed acetaminophen (TYLENOL) 325 mg tablet Take 2 tablets by mouth every 6 hours as needed. No current facility-administered medications for this visit. ALLERGIES Allergen Reactions Penicillins Rash Versed [Midazolam H* Mental Status Change Hydrocodone-Acetami* Swelling Omnicef [Cefdinir] Swelling Gluten GI Upset Latex Swelling Objective: Patient presents weightbearing as tolerated to left leg in a surgical shoe Dressing is dry, clean, and intact with mild strike through noted. Problem focus examination to the left lower extremity: Incision site is well coapted without evidence of dehiscence. Mild erythema and edema surrounding surgical site. No drainage. No lymphadenopathy. No lymphangitis. No surrounding cellulitis. No signs of infection. Satisfactory position of toes 2-4 of the left foot. Patient has no pain to palpation of calf. The calf is soft, supple and nontender without evidence of DVT. Negative Joan's test. Satisfactory alignment is noted. Pedal pulses are palpable. Capillary refill time is less than three seconds to all digits. Sensations are intact to light touch. Radiographs 3 views AP, MO, and LAT of the left foot Hardware intact without breakage or loosening. Reduction of hammertoes of the 2nd, 3rd, and 4th digit of the left foot. Triplane position is maintained. No acute destructive changes. No soft tissue gas. No complications seen. Assessment: Satisfactory post-operative progress Plan: The patient was educated on clinical examination findings, postoperative prognosis and protocol. All questions were answered to patient's apparent satisfaction. - Bandage removed and new dressing applied. - Sutures were left intact at today's visit. - Xrays taken and reviewed with the patient. - Patient to continue weightbearing as tolerated to the operative extremity. - Discussed slant back vs partial nail avulsion in the future for recurrent ingrowing nail - Can get the area wet. No soaking of the area Follow up 1 week for suture removal. Kaveh Trevino DPM, PGY-3 I personally saw and evaluated the patient. I reviewed the resident's note. I agree with the resident's assessment and plan unless otherwise noted. Clifford Valenzuela DPM, FACFAS [facility] History of Past illness Narrative* Problem Noted Date Resolved Date Mallet toe, acquired, left 05/29/202205/29 Lip swelling 04/24/2020 08/31/2020 Somatic symptom disorder, mild 04/12/2020 0 08/31/2020 Anxiety 04/12/2020 08/31/2020 Hypertension 04/11/2020 04/12/2020 Last Assessment & Plan: Assessment: Pt was Hypertensive in the ED. BP readings 149/96>152/96>124/76>113/71>134/83. Pt denied OCP, illicit drug use. Hyperthyroidism r/o thyroid tests negative, anxiety needs to be r/o Plan: -continue to closely monitor vitals, BP all four extremities; would repeat BP and blood glucose if patient has another episode -CK WNL; prior concern for myositis -Renal US WNL; appreciate nephrology consult -Possible somatization of anxiety; appreciate psychology recommendations - Ophthalmology consult for evaluation for papilledema given hypertensive episode and headache - Methylphenidate held d/t nephrology w/u and hypertension Acute intractable headache 04/10/202008/31 Last Assessment & Plan: Assessment: bilateral frontal CALLES associated with hypertension, tachycardia, and diaphoresis occurring several times per day, increasing in frequency for past 2- 3 months PLAN: - Tylenol prn for pain - Neurology consult for input regarding possibility of complex migraine with dysautonomia Cough 12/06/2016 01/06/2018 Habit cough 12/06/2016 01/06/2018 Attention deficit hyperactiv ity disorder (ADHD), predominantly inattentive type 07/15/2016 01/06/2018 Seizures 12/30/2015 07/12/2016 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 10/13/2014 08/15/2018 Acromioclavicular (joint) (ligament) sprain 05/0808/31/2020 Stress reaction 11/18/2013 08/31/2020 Stress reaction of bone 04/14/2013 08/31/19 21 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 07/15/2016 Viral Warts: hands: R thumb prox to DIP to prox nail fold and L 2nd & 3rd finger prox nail fold 08/19/2012 01/06/2018 Vomiting 07/03/2011 08/28/2011 Sleep disturbance 02/02/2011 10/13/2014 Academic problem 02/02/2011 08/31/2020 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 BP readings 149/96>152/96>124/76>113/71>134/83. Pt denied OCP, illicit drug use. Hyperthyroidism r/o thyroid tests negative, anxiety needs to be r/o Plan: -continue to closely monitor vitals, BP all four extremities; would repeat BP and blood glucose if patient has another episode -CK WNL; prior concern for myositis -Renal US WNL; appreciate nephrology consult -Possible somatization of anxiety; appreciate psychology recommendations - Ophthalmology consult for evaluation for papilledema given hypertensive episode and headache - Methylphenidate held d/t nephrology w/u and hypertension Acute intractable headache 04/10/202008/31 Last Assessment & Plan: Assessment: bilateral frontal CALLES associated with hypertension, tachycardia, and diaphoresis occurring several times per day, increasing in frequency for past 2- 3 months PLAN: - Tylenol prn for pain - Neurology consult for input regarding possibility of complex migraine with dysautonomia Cough 12/06/2016 01/06/2018 Habit cough 12/06/2016 01/06/2018 Attention deficit hyperactiv ity disorder (ADHD), predominantly inattentive type 07/15/2016 01/06/2018 Seizures 12/30/2015 07/12/2016 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 10/13/2014 08/15/2018 Acromioclavicular (joint) (ligament) sprain 05/0808/31/2020 Stress reaction 11/18/2013 08/31/2020 Stress reaction of bone 04/14/2013 08/31/19 21 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 07/15/2016 Viral Warts: hands: R thumb prox to DIP to prox nail fold and L 2nd & 3rd finger prox nail fold 08/19/2012 01/06/2018 Vomiting 07/03/2011 08/28/2011 Sleep disturbance 02/02/2011 10/13/2014 Academic problem 02/02/2011 08/31/2020 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 BP readings 149/96>152/96>124/76>113/71>134/83. Pt denied OCP, illicit drug use. Hyperthyroidism r/o thyroid tests negative, anxiety needs to be r/o Plan: -continue to closely monitor vitals, BP all four extremities; would repeat BP and blood glucose if patient has another episode -CK WNL; prior concern for myositis -Renal US WNL; appreciate nephrology consult -Possible somatization of anxiety; appreciate psychology recommendations - Ophthalmology consult for evaluation for papilledema given hypertensive episode and headache - Methylphenidate held d/t nephrology w/u and hypertension Acute intractable headache 04/10/202008/31 Last Assessment & Plan: Assessment: bilateral frontal CALLES associated with hypertension, tachycardia, and diaphoresis occurring several times per day, increasing in frequency for past 2- 3 months PLAN: - Tylenol prn for pain - Neurology consult for input regarding possibility of complex migraine with dysautonomia Cough 12/06/2016 01/06/2018 Habit cough 12/06/2016 01/06/2018 Attention deficit hyperactiv ity disorder (ADHD), predominantly inattentive type 07/15/2016 01/06/2018 Seizures 12/30/2015 07/12/2016 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 10/13/2014 08/15/2018 Acromioclavicular (joint) (ligament) sprain 05/0808/31/2020 Stress reaction 11/18/2013 08/31/2020 Stress reaction of bone 04/14/2013 08/31/19 21 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 07/15/2016 Viral Warts: hands: R thumb prox to DIP to prox nail fold and L 2nd & 3rd finger prox nail fold 08/19/2012 01/06/2018 Vomiting 07/03/2011 08/28/2011 Sleep disturbance 02/02/2011 10/13/2014 Academic problem 02/02/2011 08/31/2020 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 BP readings 149/96>152/96>124/76>113/71>134/83. Pt denied OCP, illicit drug use. Hyperthyroidism r/o thyroid tests negative, anxiety needs to be r/o Plan: -continue to closely monitor vitals, BP all four extremities; would repeat BP and blood glucose if patient has another episode -CK WNL; prior concern for myositis -Renal US WNL; appreciate nephrology consult -Possible somatization of anxiety; appreciate psychology recommendations - Ophthalmology consult for evaluation for papilledema given hypertensive episode and headache - Methylphenidate held d/t nephrology w/u and hypertension Acute intractable headache 04/10/202008/31 Last Assessment & Plan: Assessment: bilateral frontal CALLES associated with hypertension, tachycardia, and diaphoresis occurring several times per day, increasing in frequency for past 2- 3 months PLAN: - Tylenol prn for pain - Neurology consult for input regarding possibility of complex migraine with dysautonomia Cough 12/06/2016 01/06/2018 Habit cough 12/06/2016 01/06/2018 Attention deficit hyperactiv ity disorder (ADHD), predominantly inattentive type 07/15/2016 01/06/2018 Seizures 12/30/2015 07/12/2016 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 10/13/2014 08/15/2018 Acromioclavicular (joint) (ligament) sprain 05/0808/31/2020 Stress reaction 11/18/2013 08/31/2020 Stress reaction of bone 04/14/2013 08/31/19 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 07/15/2016 Viral Warts: hands: R thumb prox to DIP to prox nail fold and L 2nd & 3rd finger prox nail fold 08/19/2012 01/06/2018 Vomiting 07/03/2011 08/28/2011 Sleep disturbance 02/02/2011 10/13/2014 Academic problem 02/02/2011 08/31/2020 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 BP readings 149/96>152/96>124/76>113/71>134/83. Pt denied OCP, illicit drug use. Hyperthyroidism r/o thyroid tests negative, anxiety needs to be r/o Plan: -continue to closely monitor vitals, BP all four extremities; would repeat BP and blood glucose if patient has another episode -CK WNL; prior concern for myositis -Renal US WNL; appreciate nephrology consult -Possible somatization of anxiety; appreciate psychology recommendations - Ophthalmology consult for evaluation for papilledema given hypertensive episode and headache - Methylphenidate held d/t nephrology w/u and hypertension Acute intractable headache 04/10/202008/31 Last Assessment & Plan: Assessment: bilateral frontal CALLES associated with hypertension, tachycardia, and diaphoresis occurring several times per day, increasing in frequency for past 2- 3 months PLAN: - Tylenol prn for pain - Neurology consult for input regarding possibility of complex migraine with dysautonomia Cough 12/06/2016 01/06/2018 Habit cough 12/06/2016 01/06/2018 Attention deficit hyperactiv ity disorder (ADHD), predominantly inattentive type 07/15/2016 01/06/2018 Seizures 12/30/2015 07/12/2016 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 10/13/2014 08/15/2018 Acromioclavicular (joint) (ligament) sprain 05/0808/31/2020 Stress reaction 11/18/2013 08/31/2020 Stress reaction of bone 04/14/2013 08/31/19 21 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 07/15/2016 Viral Warts: hands: R thumb prox to DIP to prox nail fold and L 2nd & 3rd finger prox nail fold 08/19/2012 01/06/2018 Vomiting 07/03/2011 08/28/2011 Sleep disturbance 02/02/2011 10/13/2014 Academic problem 02/02/2011 08/31/2020 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 BP readings 149/96>152/96>124/76>113/71>134/83. Pt denied OCP, illicit drug use. Hyperthyroidism r/o thyroid tests negative, anxiety needs to be r/o Plan: -continue to closely monitor vitals, BP all four extremities; would repeat BP and blood glucose if patient has another episode -CK WNL; prior concern for myositis -Renal US WNL; appreciate nephrology consult -Possible somatization of anxiety; appreciate psychology recommendations - Ophthalmology consult for evaluation for papilledema given hypertensive episode and headache - Methylphenidate held d/t nephrology w/u and hypertension Acute intractable headache 04/10/202008/31 Last Assessment & Plan: Assessment: bilateral frontal CALLES associated with hypertension, tachycardia, and diaphoresis occurring several times per day, increasing in frequency for past 2- 3 months PLAN: - Tylenol prn for pain - Neurology consult for input regarding possibility of complex migraine with dysautonomia Cough 12/06/2016 01/06/2018 Habit cough 12/06/2016 01/06/2018 Attention deficit hyperactiv ity disorder (ADHD), predominantly inattentive type 07/15/2016 01/06/2018 Seizures 12/30/2015 07/12/2016 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 10/13/2014 08/15/2018 Acromioclavicular (joint) (ligament) sprain 05/0808/31/2020 Stress reaction 11/18/2013 08/31/2020 Stress reaction of bone 04/14/2013 08/31/19 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 07/15/2016 Viral Warts: hands: R thumb prox to DIP to prox nail fold and L 2nd & 3rd finger prox nail fold 08/19/2012 01/06/2018 Vomiting 07/03/2011 08/28/2011 Sleep disturbance 02/02/2011 10/13/2014 Academic problem 02/02/2011 08/31/2020 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 BP readings 149/96>152/96>124/76>113/71>134/83. Pt denied OCP, illicit drug use. Hyperthyroidism r/o thyroid tests negative, anxiety needs to be r/o Plan: -continue to closely monitor vitals, BP all four extremities; would repeat BP and blood glucose if patient has another episode -CK WNL; prior concern for myositis -Renal US WNL; appreciate nephrology consult -Possible somatization of anxiety; appreciate psychology recommendations - Ophthalmology consult for evaluation for papilledema given hypertensive episode and headache - Methylphenidate held d/t nephrology w/u and hypertension Acute intractable headache 04/10/202008/31 Last Assessment & Plan: Assessment: bilateral frontal CALLES associated with hypertension, tachycardia, and diaphoresis occurring several times per day, increasing in frequency for past 2- 3 months PLAN: - Tylenol prn for pain - Neurology consult for input regarding possibility of complex migraine with dysautonomia Cough 12/06/2016 01/06/2018 Habit cough 12/06/2016 01/06/2018 Attention deficit hyperactiv ity disorder (ADHD), predominantly inattentive type 07/15/2016 01/06/2018 Seizures 12/30/2015 07/12/2016 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 10/13/2014 08/15/2018 Acromioclavicular (joint) (ligament) sprain 05/0808/31/2020 Stress reaction 11/18/2013 08/31/2020 Stress reaction of bone 04/14/2013 08/31/19 21 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 07/15/2016 Viral Warts: hands: R thumb prox to DIP to prox nail fold and L 2nd & 3rd finger prox nail fold 08/19/2012 01/06/2018 Vomiting 07/03/2011 08/28/2011 Sleep disturbance 02/02/2011 10/13/2014 Academic problem 02/02/2011 08/31/2020 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 Recurrent acute tonsillitis 12/22/200903/2017 Epileptic grand mal status 01/18/200910/13 [facility] EPIL W/O INT EPI 09/27/2008 015 Abnormality of gait 04/01/2008 07/15/2016 documented as of this encounter (statuses as of 08/13/2022) [facility] of Past illness Narrative* Problem Noted Date Resolved Date Mallet toe, acquired, left 05/29/2022 11/23 /2022 Lip swelling 04/24/2020 08/31/2020 Somatic symptom disorder, mild 04/12/2020 0 08/31/2020 Anxiety 04/12/2020 08/31/2020 Hypertension 04/11/2020 04/12/2020 Last Assessment & Plan: Assessment: Pt was Hypertensive in the ED. BP readings 149/96>152/96>124/76>113/71>134/83. Pt denied OCP, illicit drug use. Hyperthyroidism r/o thyroid tests negative, anxiety needs to be r/o Plan: -continue to closely monitor vitals, BP all four extremities; would repeat BP and blood glucose if patient has another episode -CK WNL; prior concern for myositis -Renal US WNL; appreciate nephrology consult -Possible somatization of anxiety; appreciate psychology recommendations - Ophthalmology consult for evaluation for papilledema given hypertensive episode and headache - Methylphenidate held d/t nephrology w/u and hypertension Acute intractable headache 04/10/202008/31 Last Assessment & Plan: Assessment: bilateral frontal CALLES associated with hypertension, tachycardia, and diaphoresis occurring several times per day, increasing in frequency for past 2- 3 months PLAN: - Tylenol prn for pain - Neurology consult for input regarding possibility of complex migraine with dysautonomia Cough 12/06/2016 01/06/2018 Habit cough 12/06/2016 01/06/2018 Attention deficit hyperactiv ity disorder (ADHD), predominantly inattentive type 07/15/2016 01/06/2018 Seizures 12/30/2015 07/12/2016 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 10/13/2014 08/15/2018 Acromioclavicular (joint) (ligament) sprain 05/0808/31/2020 Stress reaction 11/18/2013 08/31/2020 Stress reaction of bone 04/14/2013 08/31/19 21 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 07/15/2016 Viral Warts: hands: R thumb prox to DIP to prox nail fold and L 2nd & 3rd finger prox nail fold 08/19/2012 01/06/2018 Vomiting 07/03/2011 08/28/2011 Sleep disturbance 02/02/2011 10/13/2014 Academic problem 02/02/2011 08/31/2020 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 BP readings 149/96>152/96>124/76>113/71>134/83. Pt denied OCP, illicit drug use. Hyperthyroidism r/o thyroid tests negative, anxiety needs to be r/o Plan: -continue to closely monitor vitals, BP all four extremities; would repeat BP and blood glucose if patient has another episode -CK WNL; prior concern for myositis -Renal US WNL; appreciate nephrology consult -Possible somatization of anxiety; appreciate psychology recommendations - Ophthalmology consult for evaluation for papilledema given hypertensive episode and headache - Methylphenidate held d/t nephrology w/u and hypertension Acute intractable headache 04/10/202008/31 Last Assessment & Plan: Assessment: bilateral frontal CALLES associated with hypertension, tachycardia, and diaphoresis occurring several times per day, increasing in frequency for past 2- 3 months PLAN: - Tylenol prn for pain - Neurology consult for input regarding possibility of complex migraine with dysautonomia Cough 12/06/2016 01/06/2018 Habit cough 12/06/2016 01/06/2018 Attention deficit hyperactiv ity disorder (ADHD), predominantly inattentive type 07/15/2016 01/06/2018 Seizures 12/30/2015 07/12/2016 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 10/13/2014 08/15/2018 Acromioclavicular (joint) (ligament) sprain 05/0808/31/2020 Stress reaction 11/18/2013 08/31/2020 Stress reaction of bone 04/14/2013 08/31/19 21 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 07/15/2016 Viral Warts: hands: R thumb prox to DIP to prox nail fold and L 2nd & 3rd finger prox nail fold 08/19/2012 01/06/2018 Vomiting 07/03/2011 08/28/2011 Sleep disturbance 02/02/2011 10/13/2014 Academic problem 02/02/2011 08/31/2020 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 BP readings 149/96>152/96>124/76>113/71>134/83. Pt denied OCP, illicit drug use. Hyperthyroidism r/o thyroid tests negative, anxiety needs to be r/o Plan: -continue to closely monitor vitals, BP all four extremities; would repeat BP and blood glucose if patient has another episode -CK WNL; prior concern for myositis -Renal US WNL; appreciate nephrology consult -Possible somatization of anxiety; appreciate psychology recommendations - Ophthalmology consult for evaluation for papilledema given hypertensive episode and headache - Methylphenidate held d/t nephrology w/u and hypertension Acute intractable headache 04/10/202008/31 Last Assessment & Plan: Assessment: bilateral frontal CALLES associated with hypertension, tachycardia, and diaphoresis occurring several times per day, increasing in frequency for past 2- 3 months PLAN: - Tylenol prn for pain - Neurology consult for input regarding possibility of complex migraine with dysautonomia Cough 12/06/2016 01/06/2018 Habit cough 12/06/2016 01/06/2018 Attention deficit hyperactiv ity disorder (ADHD), predominantly inattentive type 07/15/2016 01/06/2018 Seizures 12/30/2015 07/12/2016 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 10/13/2014 08/15/2018 Acromioclavicular (joint) (ligament) sprain 05/0808/31/2020 Stress reaction 11/18/2013 08/31/2020 Stress reaction of bone 04/14/2013 08/31/19 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 07/15/2016 Viral Warts: hands: R thumb prox to DIP to prox nail fold and L 2nd & 3rd finger prox nail fold 08/19/2012 01/06/2018 Vomiting 07/03/2011 08/28/2011 Sleep disturbance 02/02/2011 10/13/2014 Academic problem 02/02/2011 08/31/2020 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 BP readings 149/96>152/96>124/76>113/71>134/83. Pt denied OCP, illicit drug use. Hyperthyroidism r/o thyroid tests negative, anxiety needs to be r/o Plan: -continue to closely monitor vitals, BP all four extremities; would repeat BP and blood glucose if patient has another episode -CK WNL; prior concern for myositis -Renal US WNL; appreciate nephrology consult -Possible somatization of anxiety; appreciate psychology recommendations - Ophthalmology consult for evaluation for papilledema given hypertensive episode and headache - Methylphenidate held d/t nephrology w/u and hypertension Acute intractable headache 04/10/202008/31 Last Assessment & Plan: Assessment: bilateral frontal CALLES associated with hypertension, tachycardia, and diaphoresis occurring several times per day, increasing in frequency for past 2- 3 months PLAN: - Tylenol prn for pain - Neurology consult for input regarding possibility of complex migraine with dysautonomia Cough 12/06/2016 01/06/2018 Habit cough 12/06/2016 01/06/2018 Attention deficit hyperactiv ity disorder (ADHD), predominantly inattentive type 07/15/2016 01/06/2018 Seizures 12/30/2015 07/12/2016 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 10/13/2014 08/15/2018 Acromioclavicular (joint) (ligament) sprain 05/0808/31/2020 Stress reaction 11/18/2013 08/31/2020 Stress reaction of bone 04/14/2013 08/31/19 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 07/15/2016 Viral Warts: hands: R thumb prox to DIP to prox nail fold and L 2nd & 3rd finger prox nail fold 08/19/2012 01/06/2018 Vomiting 07/03/2011 08/28/2011 Sleep disturbance 02/02/2011 10/13/2014 Academic problem 02/02/2011 08/31/2020 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 BP readings 149/96>152/96>124/76>113/71>134/83. Pt denied OCP, illicit drug use. Hyperthyroidism r/o thyroid tests negative, anxiety needs to be r/o Plan: -continue to closely monitor vitals, BP all four extremities; would repeat BP and blood glucose if patient has another episode -CK WNL; prior concern for myositis -Renal US WNL; appreciate nephrology consult -Possible somatization of anxiety; appreciate psychology recommendations - Ophthalmology consult for evaluation for papilledema given hypertensive episode and headache - Methylphenidate held d/t nephrology w/u and hypertension Acute intractable headache 04/10/202008/31 Last Assessment & Plan: Assessment: bilateral frontal CALLES associated with hypertension, tachycardia, and diaphoresis occurring several times per day, increasing in frequency for past 2- 3 months PLAN: - Tylenol prn for pain - Neurology consult for input regarding possibility of complex migraine with dysautonomia Cough 12/06/2016 01/06/2018 Habit cough 12/06/2016 01/06/2018 Attention deficit hyperactiv ity disorder (ADHD), predominantly inattentive type 07/15/2016 01/06/2018 Seizures 12/30/2015 07/12/2016 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 10/13/2014 08/15/2018 Acromioclavicular (joint) (ligament) sprain 05/0808/31/2020 Stress reaction 11/18/2013 08/31/2020 Stress reaction of bone 04/14/2013 08/31/19 21 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 07/15/2016 Viral Warts: hands: R thumb prox to DIP to prox nail fold and L 2nd & 3rd finger prox nail fold 08/19/2012 01/06/2018 Vomiting 07/03/2011 08/28/2011 Sleep disturbance 02/02/2011 10/13/2014 Academic problem 02/02/2011 08/31/2020 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 Recurrent acute tonsillitis 12/22/200903/2017 Epileptic grand mal status 01/18/200910/13 PSYMOTR EPIL W/O INT EPI 09/27/2008 015 Abnormality of gait 04/01/2008 07/15/2016 documented as of this encounter (statuses as of 10/18/2022) [facility] History of Present illness Narrative* Eileen Gutiérrez DO - 04/05/2022 12:17 PM EDT Form faxed to office Eileen Gutiérrez DO documented in this encounterW[facility] Miscellaneous Notes* Telephone Encounter - Rosales Sanders APRN.CNP - 02/19/2022 2:45 PM EDT Prescription had been filled, just needs med check in next month or so. Spoke with patient and clarified. Rosales Sanders APRN.CNP * Telephone Encounter - Arlene Celeste RN - 02/19/2022 2:28 PM EDT Patient returned call. She is upset- states she only has two tablets of med left. She starts college tomorrow and won't beable to come in until next week for OV. Per 11/20/21 refill encounter: No need for appt since just seen, just wanted to ensure PCP fidelity. I would recommend med check in 6 months to ensure she is doing well. Bertha Edge APRN.CNP Patient was under impression she had until May to be seen again for refills, please advise. Arlene Celeste RN * Telephone Encounter - Rosales Sanders APRN.CNP - 02/19/2022 12:22 PM EDT Patient needs follow up for med check. PDMP website checked and validated. All prescriptions have been APPROPRIATELY filled. No suspiciousactivity was identified. 02/19/2022 by Rosales Sanders APRN.CNP documented in this encounterW[facility]ot [facility]08[facility]22 Instructions* Patient Instructions* Zari Hager APRN.CNP - 02/11/2022 11:04 AM EDT POTS Conservative Measures Increased water intake (2-2.5 liters of water daily) Increased salt intake (3-5 grams daily) Compression stockings Cardiac Rehab/Exercise Shared medical appointment with Dr. Murray Medication Changes --Continue Propranolol 20mg TID POTS Manual: Read the POTS manual online. This will help you understand your POTS diagnosis, work with your medical team, and includes detailed instructions and tips for improved daily living with POTS. [email or web address] Orthostatic Workout There are videos /playlist/podcast to viewed and helped for exercises and wellness for POTS and Orthostatics Instructions:[email or web address] In your search bar in the internet go type YOU TUBE 2. Search in the YOU TUBE search bar Trevor Orthostatic Exercises 3. Select Beginner Introduction Beginner Orthostatic Workout . This is for starting out . 4. As you advance the Beginner Orthostatic Workout may be next step or integrated into the Beginnerwork out 5. There is a video for breathing exercise to calm the adrenaline and heart rate that you can do independent and often Tips you can watch the video as often you want Subscribe to the video channel for updates Can integrate into the videos into your other fitness regimen May share along this YOU TUBE channel to other POTS patients, family and support people Also follow us along on our new RiteTagagram account JONNY Also besides the exercise are some ricarda mediation videos . Click and watch. Utilize when your adrenaline is active. May even play music to go along. Play the video as often you want to help as an additional tool to reset the adrenaline https://www.[email or web address] [email or web address]/watch?v=zIRn4bPlUQ3 https://www.Electronic Braillerube.com/watch?v=s2rQouV-5mE&feature=youtu.be https://www.Electronic Braillerube.com/watch?v=R7aL4lCcY66 Shared Medical Appointments To schedule the ZOOM POTS SMA please call during Friday-Friday 9 am - 4 pm , THE CALL CENTER # [phone] The CALL CENTER IS OPEN 24 hours/ 7 DAYS PER WEEK Please be patient with the phone line. We are honored and glad to have you part of the SMA for POTS Welcome to ZOOM POTS SMA (SHARED MEDICAL APPOINTMENTS) We have learned at the [facility] and especially in my work and our department that POTS thatthere is so much to learn to live well with this condition. So much of the emphasis needs to be on life tips of education, body awareness, community, exercise , daily life tips, and the psychology of living well with POTS. The SMA is done by Maribel Dooley our POTS Experience Officer Who has POTS also and I. I have been doing SMA for 6 years for POTS. We have even published the benefit of the SMA for POTS. We used to do the SMA in person, but during the pandemic we are starting to do them via ZOOM. For years I have been wanting to do the SMA as a virtual format like ZOOM. About 10 patients can attends and can invite someone. The ZOOM SMA is a safe space to be supported. We do request to allow your face to be seen and courtesy language. The session is about 90 minutes long. We will have a topic, questions, and answers. The sessions are not recorded. We encourage about 3 ZOOM SMA in a year. I hope you can attend. This should greatly help you for wellness and better heal Dr. Trevor Wright and the Autonomic Team The nursing staff and medical assistants are a major part of YOUR TREATMENT TEAM and will be handling your phone calls, [email or web address] messages and inquiries, if any. Unless explicitly told otherwise at thetime of your office visit, your study results and ensuing treatment plans will be discussed during your follow-up appointment. If you do not have a follow-up appointment and wish to discuss any issues directly with me, please feel free to obtain one. In regards to blood work, testing, and radiology reports these are released automatically to the patients. We do not comment on most testing on [email or web address] in a message or commentary unless there is a concern. You will not receive a message from me of the result unless there is a specific concern of the result I need you to address further in care with us or your primary medical team. Make sure to check your my chart email or jonas. As an international referral center for syncope, autonomic dysfunction, general neurology, headachecare, neuromuscular disease, and other related conditions, seeing patients from across the world, we do not have the resource of time or staffing to address inquiries for accommodations. As such, we do not provide or complete requests for work accommodations, FMLA, disability, or other such forms. We recommend seeking guidance through your primary care provider for these requests. We are happy toprovide our office notes from your visits and other tests or evaluations performed through our clinic, which can be made available upon request to assist you with this process. documented in this encounterWy[facility]ot [facility]08-[facility]22 History of Present illness Narrative* Zari Hager APRN.CNP - 02/11/2022 10:52 AM EDT Images from the original note were not included. [facility] Follow Up Polina Alejandre is a 21 year old female. Patient presents with: New Patient Evaluation: POTS/Med Refill Last office visit: 12/18/2020 Overall she has been doing well. She reports HR has been better. She did have 3 day period when shehad COVID about 1 month ago where HR was in 140's She notes she bruises easily. She was knee boarding and woke up the following daily and had multiple bruises, throughout the next week she continued to have new bruises on legs for about 1 week. She did see PCP and labs were checked (PTT, PT) and normal. Ongoing Symptoms Lightheadedness Tachycardia Current management of orthostatic condition Diet: regular, unrestricted. Exercise: I could do more Water: 3-4 bottles per day + electrolyte drinks Salt: sometimes. Stockings: stopped wearing due to more discomfort Current Medications for orthostatic condition Propranolol 20 mg TID Prior Medications for orthostatic condition None Autonomic Screening The patient's prior records were reviewed including and lab testing, imaging, and procedures done since their last visit. Review of symptoms including constitutional, eyes, ENT, neck, respiratory, cardiovascular, GI, , musculoskeletal, hematologic, oncologic, endocrine, and psychiatric categories is unchanged. No new details in the family history or social history were offered by the patient. Medications Reviewed propranolol (INDERAL) 20 mg tablet^Take 1 tablet by mouth three times daily.^Disp: 90 tablet^Rfl: 5 benzonatate (TESSALON PERLE) 100 mg capsule^Take 1-2 capsules tid prn, no more than 6 in 24 hours.^Disp: 30 capsule^Rfl: 0 methylphenidate ER 18 mg tablet^Take 1 tablet by mouth every morning for 90 days.^Disp: 90 tablet^Rfl: 0 MULTIVITAMIN ORAL^Take by mouth once daily.^Disp: ^Rfl: fluticasone-salmeterol HFA (ADVAIR HFA) 115-21 mcg/actuation inhaler^Inhale 2 Puffs as instructed twice daily.^Disp: 12 g^Rfl: 3 (Patient taking differently: Inhale 2 Puffs as instructed twice daily.uses as needed ) albuterol HFA (PROVENTIL HFA, VENTOLIN HFA) 90 mcg/actuation inhaler^Inhale 2 Puffs as instructed every 4 hours as needed.^Disp: 18 g^Rfl: 4 albuterol (PROVENTIL) 2.5 mg /3 mL (0.083 %) nebulizer solution^1 vial contains 3 ml. 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) off AEDs since 2018 GERD (gastroesophageal reflux disease) Hypertension 04/11/2020 Narcolepsy without cataplexy Nonallergic rhinitis PMH - PAST MEDICAL HISTORY OF seizure POTS (postural orthostatic tachycardia syndrome) PAST SURGICAL HISTORY Procedure Laterality Date 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 BP 117/81 Pulse 75 Temp 36.7 C (98 F) (Temporal) Resp 16 LMP 09/14/2021 (Approximate) SpO2 97% Neurological Examination: Cognition The patient is alert and oriented times four Lucid and organized in conversation Able to provide detailed medical hx Speech Speech is Normal in fluency, volume, and clarity; no dysarthria Content and syntax are coherent Comprehension: Able to follow several step commands Cranial Nerves PERRLA No ptosis Visual marquze are full to confrontation Extraocular movements are intact - smooth saccades and pursuits; No nystagmus Facial motor exam is strong and symmetric Equal sensation of trigeminal nerve - V1,V2, and V3 Soft palate elevation is symmetric, tongue is in midline, no tongue fasciculation. Neck range of motion is full Trapezius Strength is symmetric, graded 5/5 Tone and Bulk Tone and bulk is normal and preserved bilaterally of arms Tone and bulk is normal and preserved bilaterally of legs No apparent muscle atrophy No pes cavus or hammer toes Strength Shoulder Abduction 5/5 5/5 Elbow Flexion 5/5 5/5 Elbow Extension 5/5 5/5 Wrist Flexion 5/5 5/5 Wrist Extension 5/5 5/5 Finger Extension 5/5 5/5 Finger Flexion 5/5 5/5 Finger Abduction 5/5 5/5 Hip Flexion 5/5 5/5 Hip Adduction 5/5 5/5 Hip Abduction 5/5 5/5 Knee Flexion 5/5 5/5 Knee Extension 5/5 5/5 Ankle Dorsiflexion 5/5 5/5 Ankle Plantarflexion 5/5 5/5 Ankle Inversion 5/5 5/5 Ankle Eversion 5/5 5/5 Big Toe Extension 5/5 5/5 Movement/Coordination Finger-to- nose-finger and [id number] intact bilaterally. No evidence of ataxia arms. No limb dysmetria of arms and legs. Rapid alternating movements of pronation and supination, finger and hand tapping intact. There is no asterixis of the hands. No rigidity, cog wheeling, or bradykinesia. No tremors No extrapyramidal findings or dystonia Sensation Intact to light touch, temperature Gait Able to stand without upper body assistance. Normal station and stride. No festination or retropulsion. Good arm swing and body turn. Normal toe, heel, and tandem walk. IMPRESSION/PLAN: POTS Conservative Measures Increased water intake (2-2.5 liters of water daily) Increased salt intake (3-5 grams daily) Compression stockings Cardiac Rehab/Exercise Shared medical appointment with Dr. Murray Medication Changes --Continue Propranolol 20mg TID Follow up in 12 months or sooner if needed I spent a total of 30 minutes on the date of the service which included preparing to see the patient, [id number] patient care, completing clinical documentation, obtaining and/or reviewing separately obtained history, performing a medically appropriate examination, counseling and educating the pat ient/family/caregiver, and ordering medications, tests, or procedures. During our face to face clinical encounter we discussed my concerns neurologically in terms of diagnosis, impact on health and activities of living, and addressed questions. I tried to reassure the patient and also address questions. I explained to the patient to call if any questions, to review res ults, and I want to see them return for neurological follow up as mychart as next steps of communication is agreed upon Patient verbalizes understanding and I have addressed concerns and questions at this visit Patient has my contacts, educational material provided, and my chart sign up. After visit summary discussed. No orders found for this visit on 02/11/22. Zari Hager APRN.[facility] General Neurology [address] [place] [address]. [phone] Appointment: [phone] 1. This office note has been dictated and may contain minor typographic errors that escaped review 2. The nursing staff and medical assistants are a major part of YOUR TREATMENT TEAM and will be handling your phone calls and inquiries, if any. Unless explicitly told otherwise at the time of your office visit, your study results and ensuing treatment plans will be discussed during your follow-up appointment. If you do not have a follow-up appointment and wish to discuss any issues directly withme, please feel free to obtain one. 3. It is my practice to not fill disability or any other insurance-related forms/documention. All of the office notes, study results, and other pertinent documentation generated as part of your evaluation will be available to you and to your Primary Care Physician (PCP). Use of this material to complete such forms will be at the discretion of your PCP/referring physician documented in this encounterW[facility]ot [facility]05-23-[facility]22 Instructions* Patient Instructions* Yahaira Arredondo APRN.CNP - 11/26/2021 8:58 AM EDT Rest, increase water intake Monitor hydration and urine output, need to void 2 times in 8 hours Tylenol and ibuprofen as needed for fever and body aches Oscillococcinum - OTC - use as directed on package * Seek medical care immediately, call 911, go to ER if you have chest pain, decreased urine output,difficulty breathing, shortness of breath, inability to swallow. covid test ordered You will be notified in 24 -48 hours, results available on [facility] Home isolation until covid results are back Rest, increase water intake Motrin or Tylenol as needed for fever or pain. Salt water gargles, chloraseptic spray or lozenges as needed for sore throat. Warm beverages, honey. Nasal saline spray as needed Cool mist humidifier at night -Mucinex (generic is fine) Guaifenesin 1200 mg twice daily to help with cough and to thin out mucus documented in this encounterWyandot [facility] Hospital05-23-2022 History of Present illness Narrative* Yahaira Arredondo APRN.CNP - 11/26/2021 8:52 AM EDT Subjective The history is provided by the patient. No general road supervisor was used. HPI Polina Alejandre is a 21 year old female who presents today for CC of cough, congestion and fever, fatigue, body aches, headache. She has used tylenol with short term relief. 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 H/o asthma, using albuterol inhaler/nebulizer. 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 HENT: Positive for congestion and sinus pain. Negative for ear pain and sore throat. Respiratory: Positive for cough and wheezing. Negative for sputum production and shortness of breath. Cardiovascular: Negative for chest pain. Gastrointestinal: Negative for abdominal pain, diarrhea, nausea and vomiting. Musculoskeletal: Positive for myalgias. Neurological: Negative for headaches. Objective Physical Exam Vitals and nursing note reviewed. HENT: Head: Normocephalic and atraumatic. Right Ear: Tympanic membrane, ear canal and external ear normal. Left Ear: Tympanic membrane, ear canal and external ear normal. Nose: Mucosal edema, congestion and rhinorrhea present. Right Sinus: No maxillary sinus tenderness or frontal sinus tenderness. Left Sinus: No maxillary sinus tenderness or frontal sinus tenderness. Mouth/Throat: Mouth: Mucous membranes are moist. Pharynx: Uvula midline. Posterior oropharyngeal erythema present. No oropharyngeal exudate. Cardiovascular: Rate and Rhythm: Normal rate and regular rhythm. Lymphadenopathy: Head: Right side of head: No submental, submandibular or tonsillar adenopathy. Left side of head: No submental, submandibular or tonsillar adenopathy. Cervical: No cervical adenopathy. Skin: General: Skin is warm and dry. Neurological: Mental Status: She is alert. Psychiatric: Mood and Affect: Affect normal. ASSESSMENT/PLAN: 1. Flu-like symptoms - ICD9: 780.99, ICD10: R68.89 (primary diagnosis) Testing done Covid/flu ordered - COVID WITH FLUA+B, ROUTINE 2. Suspected COVID-19 virus infection - ICD9: V01.79, ICD10: Z20.822 Home isolation Testing ordered Comfort measures discussed - see patient instructions. When to seek higher level of care Notified in 24-48 hours with results, available on [employer] - COVID WITH FLUA+B, ROUTINE 3. Wheezing - ICD9: 786.07, ICD10: R06.2 Prednisone 40 mg (2-20mg tablets) po QD for 5 days Albuterol inhaler Diagnosis and treatment plan were discussed and questions were answered to the patient's satisfaction. Pt acknowledged understanding of concepts and follow up plan. Specific signs and symptoms that would indicate the need for higher level of care were discussed indetail warranting prompt ER evaluation. Yahaira Arredondo APRN.CNP Medical Decision Making: Problems: Moderate: Acute illness with systemic symptoms Risk: Moderate: Drug management Medical Decision Making Level: 4 - Moderate documented in this encounterW[facility]05-17-2022 Miscellaneous Notes* Telephone Encounter - Janey Augustin RN - 11/20/2021 7:55 PM EDT Message to patient, she will f/u as advised. No questions at this time. * Telephone Encounter - Bertha Edge APRN.CNP - 11/20/2021 5:09 PM EDT To need for appt since just seen, just wanted to ensure PCP fidelity. I would recommend med check in 6 months to ensure she is doing well. Bertha Edge APRN.NEERU * Telephone Encounter - Marilyn Lynch Pss - 11/20/2021 1:15 PM EDT Polina returned call. She stated she did see Dr. Gutiérrez last summer in March but she is willing to make an appointment if need be. She saw the provider in [place] in September for a physical to be seensooner than later. Please advise on an appointment if necessary. Thank you Marilyn Lynch Pss * Telephone Encounter - Arlene Celeste RN - 11/20/2021 12:48 PM EDT Called patient regarding message below, no answer. Left message to call office back. Arlene Celeste RN * Telephone Encounter - Bertha Edge APRN.CNP - 11/20/2021 12:39 PM EDT PDMP website checked and validated. All prescriptions have been APPROPRIATELY filled. No suspiciousactivity was identified. 11/20/2021 by Bertha Edge APRN.NEERU Patient's request for medication is as follows Signed Prescriptions Disp Refills methylphenidate ER 18 mg tablet 90 tablet 0 Sig: Take 1 tablet by mouth every morning for 90 days. SAMEER Class: C-II DARVIN: No Authorizing Provider: BERTHA EDGE Please confirm PCP -- patient has not been seen by Dr. Gutiérrez in [facility] since 03/2020. Look slfrance Polina has been seen in [place] lately. Bertha Edge APRN.CNP * Telephone Encounter - Megan Hodges MA - 11/20/2021 11:49 AM EDT Pharmacy verified in Epic Patient has been identified by name and date of : Yes Patient aware RX will be sent to pharmacy. No need to notify patient. Parent/Guardian phones for refill(s): Pending Prescriptions Disp Refills METHYLPHENIDATE ER 18 MG TABLET,EXTENDED RELEASE 24 HR 90 tablet 0 Sig: Take 1 tablet by mouth every morning for 90 days. SAMEER Class: C-II DARVIN: No Date of last office visit : Visit date not found Date of next office visit : Visit date not found Last 2 Encounter Wt Readings: Date: Wt: 10/09/2021 53.5 kg (118 lb) (32 %, Z= -0.46)* 10/01/2021 53.8 kg (118 lb 8 oz) (34 %, Z= -0.42)* Please advise. Megan Hodges MA documented in this encounterWyandot [facility]05-17-2022 History of Present illness Narrative* Lisa Pacheco RN - 11/20/2021 10:51 AM EDT Asthma Home Monitoring Program [facility]reathe Well Outreach Provider Action/FYI: Approval received from Dr Oracio Bertrand to draft AAP per below FYI Reason for outreach: Follow up and Asthma Action Plan, Health Maintenance, due for Pulm F/up Contact made: Yes, via [email or web address] VM left. SIGNATURE: Lisa Pacheco RN PATIENT NAME: Polina Alejandre DATE: November 20, 2021 TIME: 10:51 AM * Lisa Pacheco RN - 11/09/2021 3:11 PM EDT Asthma Home Monitoring Program [facility]reathe Well Outreach Provider Action/FYI: Hi Dr Bertrand, Pt is over due for f/up in your office. RN called and left message encouraging arranging f/up visitwith your office and will send Synkert message. From a health maintenance perspective patient is due for asthma action plan - RN would like to draft one for you to review if in agreement? Would put advair in green zone for daily medications (however, RN is aware that RX on file is from 03/2021 and with 3 refills so not likely patient is taking it at this time) And albuterol in yellow and red zone. Please advise if in agreement or if not willing to sign given need for f/up in office. Thank you. Patient is currently not eligible for Pediatric [facility] Well Asthma Home Monitoring Program. Patient is not followed by specialty care for asthma. Has not had a prednisone course in the last 6 months. Has not had an admission or ED visit for asthma in the last 12 months. Last ACT on file above 19 indicating well managed asthma. No obvious SDH. However, patient is due for asthma action plan so RN will try to address. Most Recent Asthma Control Test ASTHMA CONTROL TEST (2007 - ) 12/06/2016 10/01/2021 ASTHMA WORK (2007) 3 SOME OF THE TIME - ASTHMA SOB (2007) 3 TO 6 TIMES A WEEK - ASTHMA SLEEP (2007) 2 TWO OR THREE NIGHTS A WEEK - ASTHMA MED (2007) 5 NOT AT ALL - ASTHMA CONTROL (2007) 3 SOMEWHAT CONTROLLED - ACT TOTAL SCORE 16 - In the past 4 weeks, how much of the time did your asthma keep you from getting as much done at work, school, or at home? - 5 None of the time During the past 4 weeks, how often have you had shortness of breath? - 4 Once or twice a week During the past 4 weeks, how often did your asthma symptoms (wheezing, coughing, shortness of breath, chest tightness or pain) wake you up at night or earlier than usual in the morning? - 5 Not at all During the past 4 weeks, how often have you used your rescue inhaler or nebulizer medication (such as albuterol)? - 5 Not at all How would you rate your asthma control during the past 4 weeks? - 4 Well controlled Asthma Control Test Score - 23 Review of breathing medications: Current Outpatient Medications Medication Instructions acetaminophen (TYLENOL) 650 mg, ORAL, EVERY 6 HOURS NEEDED albuterol (PROVENTIL) 2.5 mg /3 mL (0.083 %) nebulizer solution 1 vial contains 3 ml. 1 unit dose every 4 hours as needed albuterol HFA (PROVENTIL HFA, VENTOLIN HFA) 90 mcg/actuation inhaler 2 Puffs, INHALATION, EVERY 4 HOURS NEEDED fluticasone-salmeterol HFA (ADVAIR HFA) 115-21 mcg/actuation inhaler 2 Puffs, INHALATION, 2 TIMES DAILY methylphenidate ER (CONCERTA) 18 mg, ORAL, EVERY MORNING MULTIVITAMIN ORAL ORAL, DAILY propranolol (INDERAL) 20 mg tablet take 1 tablet by mouth three times a day SIGNATURE: Lisa Pacheco RN PATIENT NAME: Polina Alejandre DATE: November 09, 2021 TIME: 3:11 PM documented in this encounterW[facility]andot [facility]05-02-2022 Miscellaneous Notes* Telephone Encounter - Adenike Odom RN - 11/05/2021 11:00 AM EDT Last OV: 12/18/2020 Last Refill: 08/29/2021 F/U OV: N/A Appropriate for refill. Routed to MA for review. Adenike Odom RN, BSN, BA documented in this encounterWyandot [facility]04-14-2022 Miscellaneous Notes* Telephone Encounter - Jeana Aranda DO - 10/18/2021 3:23 PM EDT orthotics ordered. please assist. hs documented in this encounterWyandot [facility]04-05-2022 History of Present illness Narrative* Clifford Valenzuela DPM - 10/09/2021 3:06 PM EDT Chief Complaint: Bilateral mallet toes HPI: This 21 year old female with PMH indicated below presents complaining of bilateral mallet toes. 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 Says that over the last 4-5 years they have been getting worse likely with puberty. Says that they cause a significant amount of pain while walking in and out of shoe gear. Pain is about a 6/10 on a daily basis despite conservative care. She has tried new shoes, padding, custom inserts, ect without relief. She says that she would like to have them fixed if possible because she cant live like this anymore. Her mother is with her today and agrees that they have [facility] everything [facility] well as everything found online. No other issues/complaints at this time. 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 PCP: Eileen Gutiérrez, DO: PAST MEDICAL HISTORY Diagnosis Date 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) off AEDs since 2017 GERD (gastroesophageal reflux disease) Hypertension 04/11/2020 Narcolepsy without cataplexy Nonallergic rhinitis PMH - PAST MEDICAL HISTORY OF seizure POTS (postural orthostatic tachycardia syndrome) : Current Outpatient Medications Medication Sig propranolol (INDERAL) 20 mg tablet take 1 tablet by mouth three times a day methylphenidate ER 18 mg tablet Take 1 tablet by mouth every morning for 90 days. MULTIVITAMIN ORAL Take by mouth once daily. fluticasone-salmeterol HFA (ADVAIR HFA) 115-21 mcg/actuation inhaler Inhale 2 Puffs as instructed twice daily. (Patient taking differently: Inhale 2 Puffs as instructed twice daily. uses as needed ) albuterol HFA (PROVENTIL HFA, VENTOLIN HFA) 90 mcg/actuation inhaler Inhale 2 Puffs as instructed every 4 hours as needed. albuterol (PROVENTIL) 2.5 mg /3 mL (0.083 %) nebulizer solution 1 vial contains 3 ml. 1 unit dose every 4 hours as needed acetaminophen (TYLENOL) 325 mg tablet Take 2 tablets by mouth every 6 hours as needed. 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 Physical Exam: Patient is alert and oriented x 3 in NADPatient is a 21 year old female who appears well developed,well nourished and with good attention to hygiene and body habitus. Resp 17 Ht 154.9 cm (5' 1 ) Wt 53.5 kg (118 lb) LMP 09/14/2021 (Approximate) BMI 22.30 kg/m Vascular: DP and PT pulses are palpable. CFT less than 3 seconds to all digits bilateral. Skin temperature is warm to warm from proximal to distal bilateral. Hair growth is noted. No edema noted. No varicosities noted. Neuro: Light touch intact bilateral. Protective sensation intact at all pedal sites via [place] 5.07 monofilament bilateral. Proprioception intact at the hallux bilateral. No clonus noted. Babinski reflex not elicited bilateral. Derm: Skin texture and turgor within normal limits. Toenails normal in appearance. Webspaces 1-4 clean, dry, intact b/l. No rashes, subcutaneous nodules, or open lesions noted. No hyperkeratotic tissue. Musculoskeletal/Orthopaedic: General foot morphology: Decreased medial longitudinal arch bilateral worse on the right than on the left. +5/5 muscle strength Dorsiflexion, Plantarflexion, Inversion, Eversion bilateral ROM of the 1st MTPJ is WNL without pain or crepitus b/l. ROM of the MTJ/STJ is full without pain orcrepitus b/l. Ankle joint ROM is decreased B/L Biomechanical Evaluation: Decreased arch with associated mallet toes digits 2-5 bilateral. The forefoot to rearfoot is slightly inverted. In the sagittal plane the forefoot is neutral. The lateral border of the foot is rectus. Midtarsal joint motion is WNL with intact locking mechanism. Subtalar joint motion is smooth with 15 degrees of eversion and 30 degress of inversion. STJ shows no planal dominance in the frontal plane Absence of pain or crepitus with motion at this joint. Ankle joint dorsiflexion with the knee extended is <10 degrees and with the knee flexed <10 degrees. Manual muscle testing reveals 5/5 strength to all pedal muscle groups. In stance, there is adequate purchase for all digits however, contracture deformity of digits 2-5 worsen causing her to ambulate on the distal kate and nails of each digit. The forefoot to rearfoot is inverted and RCSP is approximately 3 degrees everted bilateral. The foot is not offset to the leg. Dual limb support heel rise reveals stable MTJ. Single limb support heel rise is intact. No Tenderness to palpation of the sinus tarsi. No Tenderness to palpation of the posterior tibial tendon and its insertion. Gait examination reveals propulsive normal angle and base. Radiographs: 3 views of the right left foot were taken today. Radiographic impression: Bone stock is WNL. No acute fractures or dislocations noted. All cortices are intact. Joint spaces are maintained. No increase in ST density. There appears to be flexion contractures noted at the PIPJ and DIPJ of digits 2-5 bilateral. Decreased arch height appreciated with decreased calcaneal inclination and increased talar declination angles as well as anterior break in the syma line. No additional findings. 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 Plan: - A comprehensive history and physical examination were preformed. The patient was educated on clinical and radiographic findings, diagnosis and treatment plans. Patient state that she understands all that has been explained and all questions were answered to her apparent satisfaction. - Etiology and treatment options were discussed with the patient. - XRs taken and reviewed with patient today - Due to worsening mallet toe deformity bilateral with daily pain despite conservative care, we would recommend surgical correction of toes 2-5 bilateral. This would include solid screw fixation through the DIPJ and PIPJ due to significant contracture at the DIPJ. 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 Patient to call when ready to have this performed. - Discussed all conservative options again with patient including good supportive shoe gear, padding, analgesics, ect. Recommend continuing these in the interim. Recommend HT repair 2-5 with screws once ready Call when ready to schedule surgery or to discuss this further, Teresa Costa DPM PGY-3 I personally saw and evaluated the patient. I reviewed the resident's note. I agree with the resident's assessment and plan unless otherwise noted. Clifford Valenzuela DPM, FACFAS * Clifford Valenzuela DPM - 10/09/2021 3:05 PM EDT REVIEW OF SYSTEMS: GENERAL: Well developed, well nourished. No acute distress PAIN: Negative for pain, history of chronic pain or current treatment for chronic pain conditions and Pain hammer toes CARDIOVASCULAR: Negative for chest pain, leg swelling and palpations. MSK: Negative for joint swelling SKIN: Negative for lesions, rash, itching, metal sensitivity NEURO: Negative for seizure, trauma, numbness/tingling of extremities. and Seizure . ENDOCRINE: Negative for diabetic associated symptoms HEMATOLOGY: Negative for excessive bleeding, clots, bleeding disorders. documented in this encounterWyandot [facility]03-28-2022 Instructions* Patient Instructions* Beckie Juarez APRN.INDUSTRIAL RENDERER - 10/01/2021 10:03 AM EDT Images from the original note were not included. 5 to Go!TM Healthy Kids Inside & Out 5 Eat FIVE fruits and veggies a day 4 Give and get FOUR compliments a day 3 Consume THREE calcium products a day 2 Limit media time to TWO hours a day 1 Get at least ONE hour of exercise a day 0 Consume ZERO sugar-sweetened drinks Go! Be healthy, inside and out! www.[facility].org/5toGo Adolescent to Adult Transition Program [facility] cares about helping you and each of our adolescents and young adults make a smoothtransition to adult care. If your current doctor is a shipyard helper, we will work with you to decide the correct age for moving your care to a doctor or other provider who takes care of adults. We suggest that this move take place before age 22. Our office policy is to prepare you to move to a doctor or other provider who takes care of adults. This includes helping you find a doctor or other provider, sending medical records, and talking about any special needs with the new doctor or other provider. If your current doctor is in family medicine, [facility] will prepare you and your family forthe transition to being an adult patient. You will be able to make your own healthcare decisions and will have an adult care team that meets your personal healthcare needs. At age 18, by law, we need your agreement to discuss personal health information with your family. We understand and respect that you may want to include your family in healthcare choices and will partner with you on how and when to include your family in decisions. We will make sure you know what changes to expect. We will also strive to make sure that all care team providers know your needs. We will help you find community resources and specialty care, if needed. Having your information before you come for the first time helps us be sure we do not miss any details. If joining our practice from outside [facility], we will help you request your medical record from past doctor(s) before your first visit. We will make every effort to work with your past providers to ensure a smooth transition and experience. We are always here for you. If you have any questions or concerns, please contact your primary careteam or e-mail Got Transition is the federally funded national resource center on health care transition (HCT). Its aim is to improve transition from pediatric to adult health care through the use of evidence-driven strategies for health health care marketing specialist, youth, young adults, and their families. www.gottransition.org https://gottransition.org/resource/?bec-sbmruq-veprber documented in this encounterWyandot [facility] Hospital03-28-2022 History of Present illness Narrative* Beckie Juarez APRN.CNP - 10/01/2021 9:25 AM EDT WELL VISIT PEDIATRIC FEMALE 18+ YRS OLD SERVICE DATE: 10/01/2021 Polina is a 21 year old female who presents today for well exam. 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 SUBJECTIVE CONCERNS: Needs 2 step Mantoux testing HISTORY ACTIVE PROBLEM LIST Migraine Without Aura and Without Status Migrainosus, Not Intractable - 05/11/2020 Elevated Blood Pressure Reading Without Diagnosis of Hypertension - 05/11/2020 History of Penicillin Allergy - 04/24/2020 Urticaria Due to Drug Allergy - 04/24/2020 Adverse Effect of Cephalosporins and Other Beta-Lactam Antibiotics, Initial Encounter - 04/24/2020 Seasonal Allergic Rhinitis Due to Pollen - 04/24/2020 Narcolepsy Without Cataplexy Primary Narcolepsy Without Cataplexy - 07/15/2016 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 PAST MEDICAL HISTORY Diagnosis Date 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) off AEDs since 2018 GERD (gastroesophageal reflux disease) Hypertension 04/11/2020 Narcolepsy without cataplexy Nonallergic rhinitis PMH - PAST MEDICAL HISTORY OF seizure POTS (postural orthostatic tachycardia syndrome) PAST SURGICAL HISTORY Procedure Laterality Date 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 MULTIVITAMIN ORAL Take by mouth once daily. fluticasone-salmeterol HFA (ADVAIR HFA) 115-21 mcg/actuation inhaler Inhale 2 Puffs as instructed twice daily. albuterol HFA (PROVENTIL HFA, VENTOLIN HFA) 90 mcg/actuation inhaler Inhale 2 Puffs as instructed every 4 hours as needed. albuterol (PROVENTIL) 2.5 mg /3 mL (0.083 %) nebulizer solution 1 vial contains 3 ml. 1 unit dose every 4 hours as needed acetaminophen (TYLENOL) 325 mg tablet Take 2 tablets by mouth every 6 hours as needed. FAMILY HISTORY Problem Relation Age of Onset Allergies Father Asthma Brother Allergies Maternal Grandmother Hypertension Maternal Grandfather Allergies Maternal Grandfather Heart Maternal Grandfather mat side/pat side Social History Social History Narrative Pets: dog Smoking Exposure: Do you spend a significant amount of time with anyone who smokes? No School: College freshman ; grades A. Physical Activity more than 1 hour of physical activity per day Screen Time totaling more than 2 hours of screen time per day. Safety: Reviewed seat belts, bike helmets and smoke detectors Diet: -Eats 3 meals per day and varies snacks per day -Typical beverages include water -Fruits and vegetables are eaten with nearly every meal and eaten as snacks -# of fast food meals/week: 1-2 Elimination: no concerns, normal size and consistency Dental: dental care current Sleep: -no sleep concerns Gynecological history: LMP: 09/14/2021 Cycles are regular and last 5-6 days. Dysmenorrhea: mild Heavy periods: no Substance use: none High risk behaviors: none Sexual History: Attraction: male Sexually Active: No Body image: satisfactory Screening tools reviewed and discussed with patient/[id number] and Social Determinants of Health.Please see Patient Entered Data. REVIEW OF SYSTEMS GENERAL: No fevers EYES: No vision concerns and Vision screening completed by eye doctor ENT: No hearing concerns RESPIRATORY: Negative for cough, wheezing or respiratory distress CARDIOVASCULAR: Negative for chest pain, syncope, lightheadness or heart racing SKIN: Negative for lesions, rash, and itching ENDOCRINE: No growth concerns VISUAL ACUITY: Today's exam: Vision Correction? No vision correction: RIGHT EYE: 20/20 LEFT EYE: 20/ 15 OBJECTIVE Physical Exam: BP 102/76 Pulse 76 Temp 36.8 C (98.2 F) (Temporal Artery) Resp 16 Ht 157 cm (5' 1.81 ) Wt53.8 kg (118 lb 8 oz) LMP 09/14/2021 (Approximate) BMI 21.81 kg/m Blood pressure percentiles are not available for patients who are 18 years or older. 53 %ile (Z= 0.08) based on CDC (Girls, 2-20 Years) BMI-for-age based on BMI available as of 10/01/2021. Last BMI: Wt: 52.2 kg (115 lb) (27 %, Z= -0.62)* BMI: 21.38 kg/(m^2) Last 4 Encounter Wt Readings: Date: Wt: 08/27/2021 52.2 kg (115 lb) (27 %, Z= -0.62)* 06/09/2021 54 kg (119 lb) (36 %, Z= -0.36)* 05/25/2021 54.9 kg (121 lb) (41 %, Z= -0.24)* 03/29/2021 54.9 kg (121 lb) (41 %, Z= -0.22)* Last 4 Encounter Ht Readings: Date: Ht: 03/29/2021 156.2 cm (5' 1.5 ) (14 %, Z= -1.08)* 03/29/2021 156.2 cm (5' 1.5 ) (14 %, Z= -1.08)* 09/13/2020 157.5 cm (5' 2 ) (19 %, Z= -0.87)* 08/31/2020 154.9 cm (5' 1 ) (10 %, Z= -1.26)* General: Well developed, No acute distress Head: normocephalic Eyes: conjunctivae/corneas clear, pupils equal and reactive to light, extraocular movements intact Ears: normal external ear and canal, tympanic membranes with normal landmarks Nose: no erythema or rhinorrhea Oropharynx: moist mucous membranes, no erythema or exudate Neck: Supple, no adenopathy Spine: Back symmetric, no curvature. Resp: lungs clear to auscultation Heart: RRR, normal S1 and S2. , No murmurs Breast: William stage V Abdomen: Soft, nontender, nondistended, no palpable organomegaly or masses, normal bowel sounds Genitalia: not examined Extremities: No clubbing, cyanosis, or edema., No deformities or skin discoloration. Good capillaryrefill. Full range of motion. Neuro: No focal deficits or abnormal findings present Skin: no rashes, lesions or jaundice ASSESSMENT & PLAN: Encounter Diagnosis ICD-10-CM 1. Well adolescent visit without abnormal findings Z00.129 2. Intermittent asthma, well controlled J45.20 - Well controlled, ACT score 23 - No refills of albuterol needed - Will restart Advair if having worsening sx - If having shortness of breath or wheezing that does not improve with albuterol treatment, go to emergency room 3. Negative depression screening Z13.31 4. Encounter for screening for lipoid disorders Z13.220 LIPID PANEL BASIC 5. Encounter for screening for respiratory tuberculosis Z11.1 PPD (TB INTRADERMAL [id number]) B/O 53 %ile (Z= 0.08) based on CDC (Girls, 2-20 Years) BMI-for-age based on BMI available as of 10/01/2021. Polina is normal weight (BMI 5th% - 84th%): -To maintain a healthy weight, discussed limiting screentime to less than 2 hours per day, physical activity for at least one hour per day, 5 servings of fruits and vegetables per day, 3 meals per day, family meals ar home and no sugar containing beverages Depression Screening 09/12/2020 10/01/2021 PHQ-2 Score 0 0 PHQ-9 Score 0 0 MARY-2 Total Score 0 - MARY-7 Total Score 0 - Depression screening tool completed and reviewed. Based on score and interview, patient is not at risk for depression. Screening tool discussed with patient, and I recommended no further interventionat this time. - Discussed diet and safety. - Dental care discussed. - DailyStrength handout given (See Patient Instructions). - Parent/guardian declined immunization for HPV and was counseled regarding risk. Discussed benefits of vaccination and encouraged patient to return to clinic for HPV vaccine. - Follow up in one year for routine physical. SIGNATURE: Beckie Juarez APRN.NEERU PATIENT NAME: Polina Alejandre DATE: October 01, 2021 TIME: 9:25 AM documented in this encounterW[facility] Miscellaneous Notes* Telephone Encounter - Irma Ford Desk Sergeant Ppg - 09/25/2021 11:26 AM EDT Patient contacted and scheduled with Dr. Valenzuela on 10/09/21. She was instructed to bring the prior op report or drop it off prior to her office visit. Patient said she will bring it to the scheduled appointment. 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 The person she goes to for her Orthotic highly recommended Dr. Valenzuela. I will have Irma check with Dr. Valenzuela to see if it is okay to schedule this patient. Ayaka Palencia Quinlan Ppg September 24, 2021 3:50 PM * Telephone Encounter - Ayaka Palencia Quinlan Ppg - 09/24/2021 3:47 PM EDT ----- Message from Betrha Still sent at 09/24/2021 8:10 AM EDT ----- Regarding: Orthopedics / B/L Foot: Hammer Toe / Previous Surgery By A Non-AG Provider Contact: Subject Line Format: Orthopedics / [Provider Name or Open & Body Part ] / [Issue] Patient has been identified by name and Date of (Y/N): y Patient: Polina Alejandre Date of : 2000 Previous Provider Seen: none Body Part(s) Identified: B/L hammer toe issues Diagnosis/Reason For Visit: needs new patient appt Reason for the call/escalation: new patient appt for B/L hammer toe issues If reason for call/escalation is discharge from ED/ER or Hospital, which facility was the patient seen at: n Was an appointment scheduled (Y/N): no had past surgery on right foot not actually toes but wanted to be safe and not schedule Person calling if other than patient: self Return call to if other than patient: self Best contact number: [phone] Thank you, Bertha Still September 24, 2021 8:11 AM documented in this encounterW[facility] History of Past illness Narrative* Problem Noted Date Resolved Date Lip swelling 04/24/2020 08/31/2020 Somatic symptom disorder, mild 04/12/2020 0 08/31/2020 Anxiety 04/12/2020 08/31/2020 Hypertension 04/11/2020 04/12/2020 Last Assessment & Plan: Assessment: Pt was Hypertensive in the ED. BP readings 149/96>152/96>124/76>113/71>134/83. Pt denied OCP, illicit drug use. Hyperthyroidism r/o thyroid tests negative, anxiety needs to be r/o Plan: -continue to closely monitor vitals, BP all four extremities; would repeat BP and blood glucose if patient has another episode -CK WNL; prior concern for myositis -Renal US WNL; appreciate nephrology consult -Possible somatization of anxiety; appreciate psychology recommendations - Ophthalmology consult for evaluation for papilledema given hypertensive episode and headache - Methylphenidate held d/t nephrology w/u and hypertension Acute intractable headache 04/10/202008/31 Last Assessment & Plan: Assessment: bilateral frontal CALLES associated with hypertension, tachycardia, and diaphoresis occurring several times per day, increasing in frequency for past 2- 3 months PLAN: - Tylenol prn for pain - Neurology consult for input regarding possibility of complex migraine with dysautonomia Cough 12/06/2016 01/06/2018 Habit cough 12/06/2016 01/06/2018 Attention deficit hyperactiv ity disorder (ADHD), predominantly inattentive type 07/15/2016 01/06/2018 Seizures 12/30/2015 07/12/2016 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 10/13/2014 08/15/2018 Acromioclavicular (joint) (ligament) sprain 05/0808/31/2020 Stress reaction 11/18/2013 08/31/2020 Stress reaction of bone 04/14/2013 08/31/19 21 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 07/15/2016 Viral Warts: hands: R thumb prox to DIP to prox nail fold and L 2nd & 3rd finger prox nail fold 08/19/2012 01/06/2018 Vomiting 07/03/2011 08/28/2011 Sleep disturbance 02/02/2011 10/13/2014 Academic problem 02/02/2011 08/31/2020 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 BP readings 149/96>152/96>124/76>113/71>134/83. Pt denied OCP, illicit drug use. Hyperthyroidism r/o thyroid tests negative, anxiety needs to be r/o Plan: -continue to closely monitor vitals, BP all four extremities; would repeat BP and blood glucose if patient has another episode -CK WNL; prior concern for myositis -Renal US WNL; appreciate nephrology consult -Possible somatization of anxiety; appreciate psychology recommendations - Ophthalmology consult for evaluation for papilledema given hypertensive episode and headache - Methylphenidate held d/t nephrology w/u and hypertension Acute intractable headache 04/10/202008/31 Last Assessment & Plan: Assessment: bilateral frontal CALLES associated with hypertension, tachycardia, and diaphoresis occurring several times per day, increasing in frequency for past 2- 3 months PLAN: - Tylenol prn for pain - Neurology consult for input regarding possibility of complex migraine with dysautonomia Cough 12/06/2016 01/06/2018 Habit cough 12/06/2016 01/06/2018 Attention deficit hyperactiv ity disorder (ADHD), predominantly inattentive type 07/15/2016 01/06/2018 Seizures 12/30/2015 07/12/2016 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 10/13/2014 08/15/2018 Acromioclavicular (joint) (ligament) sprain 05/0808/31/2020 Stress reaction 11/18/2013 08/31/2020 Stress reaction of bone 04/14/2013 08/31/19 21 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 07/15/2016 Viral Warts: hands: R thumb prox to DIP to prox nail fold and L 2nd & 3rd finger prox nail fold 08/19/2012 01/06/2018 Vomiting 07/03/2011 08/28/2011 Sleep disturbance 02/02/2011 10/13/2014 Academic problem 02/02/2011 08/31/2020 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 BP readings 149/96>152/96>124/76>113/71>134/83. Pt denied OCP, illicit drug use. Hyperthyroidism r/o thyroid tests negative, anxiety needs to be r/o Plan: -continue to closely monitor vitals, BP all four extremities; would repeat BP and blood glucose if patient has another episode -CK WNL; prior concern for myositis -Renal US WNL; appreciate nephrology consult -Possible somatization of anxiety; appreciate psychology recommendations - Ophthalmology consult for evaluation for papilledema given hypertensive episode and headache - Methylphenidate held d/t nephrology w/u and hypertension Acute intractable headache 04/10/202008/31 Last Assessment & Plan: Assessment: bilateral frontal CALLES associated with hypertension, tachycardia, and diaphoresis occurring several times per day, increasing in frequency for past 2- 3 months PLAN: - Tylenol prn for pain - Neurology consult for input regarding possibility of complex migraine with dysautonomia Cough 12/06/2016 01/06/2018 Habit cough 12/06/2016 01/06/2018 Attention deficit hyperactiv ity disorder (ADHD), predominantly inattentive type 07/15/2016 01/06/2018 Seizures 12/30/2015 07/12/2016 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 10/13/2014 08/15/2018 Acromioclavicular (joint) (ligament) sprain 05/0808/31/2020 Stress reaction 11/18/2013 08/31/2020 Stress reaction of bone 04/14/2013 08/31/19 21 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 07/15/2016 Viral Warts: hands: R thumb prox to DIP to prox nail fold and L 2nd & 3rd finger prox nail fold 08/19/2012 01/06/2018 Vomiting 07/03/2011 08/28/2011 Sleep disturbance 02/02/2011 10/13/2014 Academic problem 02/02/2011 08/31/2020 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 BP readings 149/96>152/96>124/76>113/71>134/83. Pt denied OCP, illicit drug use. Hyperthyroidism r/o thyroid tests negative, anxiety needs to be r/o Plan: -continue to closely monitor vitals, BP all four extremities; would repeat BP and blood glucose if patient has another episode -CK WNL; prior concern for myositis -Renal US WNL; appreciate nephrology consult -Possible somatization of anxiety; appreciate psychology recommendations - Ophthalmology consult for evaluation for papilledema given hypertensive episode and headache - Methylphenidate held d/t nephrology w/u and hypertension Acute intractable headache 04/10/202008/31 Last Assessment & Plan: Assessment: bilateral frontal CALLES associated with hypertension, tachycardia, and diaphoresis occurring several times per day, increasing in frequency for past 2- 3 months PLAN: - Tylenol prn for pain - Neurology consult for input regarding possibility of complex migraine with dysautonomia Cough 12/06/2016 01/06/2018 Habit cough 12/06/2016 01/06/2018 Attention deficit hyperactiv ity disorder (ADHD), predominantly inattentive type 07/15/2016 01/06/2018 Seizures 12/30/2015 07/12/2016 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 10/13/2014 08/15/2018 Acromioclavicular (joint) (ligament) sprain 05/0808/31/2020 Stress reaction 11/18/2013 08/31/2020 Stress reaction of bone 04/14/2013 08/31/19 21 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 07/15/2016 Viral Warts: hands: R thumb prox to DIP to prox nail fold and L 2nd & 3rd finger prox nail fold 08/19/2012 01/06/2018 Vomiting 07/03/2011 08/28/2011 Sleep disturbance 02/02/2011 10/13/2014 Academic problem 02/02/2011 08/31/2020 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 BP readings 149/96>152/96>124/76>113/71>134/83. Pt denied OCP, illicit drug use. Hyperthyroidism r/o thyroid tests negative, anxiety needs to be r/o Plan: -continue to closely monitor vitals, BP all four extremities; would repeat BP and blood glucose if patient has another episode -CK WNL; prior concern for myositis -Renal US WNL; appreciate nephrology consult -Possible somatization of anxiety; appreciate psychology recommendations - Ophthalmology consult for evaluation for papilledema given hypertensive episode and headache - Methylphenidate held d/t nephrology w/u and hypertension Acute intractable headache 04/10/202008/31 Last Assessment & Plan: Assessment: bilateral frontal CALLES associated with hypertension, tachycardia, and diaphoresis occurring several times per day, increasing in frequency for past 2- 3 months PLAN: - Tylenol prn for pain - Neurology consult for input regarding possibility of complex migraine with dysautonomia Cough 12/06/2016 01/06/2018 Habit cough 12/06/2016 01/06/2018 Attention deficit hyperactiv ity disorder (ADHD), predominantly inattentive type 07/15/2016 01/06/2018 Seizures 12/30/2015 07/12/2016 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 10/13/2014 08/15/2018 Acromioclavicular (joint) (ligament) sprain 05/0808/31/2020 Stress reaction 11/18/2013 08/31/2020 Stress reaction of bone 04/14/2013 08/31/19 21 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 07/15/2016 Viral Warts: hands: R thumb prox to DIP to prox nail fold and L 2nd & 3rd finger prox nail fold 08/19/2012 01/06/2018 Vomiting 07/03/2011 08/28/2011 Sleep disturbance 02/02/2011 10/13/2014 Academic problem 02/02/2011 08/31/2020 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 BP readings 149/96>152/96>124/76>113/71>134/83. Pt denied OCP, illicit drug use. Hyperthyroidism r/o thyroid tests negative, anxiety needs to be r/o Plan: -continue to closely monitor vitals, BP all four extremities; would repeat BP and blood glucose if patient has another episode -CK WNL; prior concern for myositis -Renal US WNL; appreciate nephrology consult -Possible somatization of anxiety; appreciate psychology recommendations - Ophthalmology consult for evaluation for papilledema given hypertensive episode and headache - Methylphenidate held d/t nephrology w/u and hypertension Acute intractable headache 04/10/202008/31 Last Assessment & Plan: Assessment: bilateral frontal CALLES associated with hypertension, tachycardia, and diaphoresis occurring several times per day, increasing in frequency for past 2- 3 months PLAN: - Tylenol prn for pain - Neurology consult for input regarding possibility of complex migraine with dysautonomia Cough 12/06/2016 01/06/2018 Habit cough 12/06/2016 01/06/2018 Attention deficit hyperactiv ity disorder (ADHD), predominantly inattentive type 07/15/2016 01/06/2018 Seizures 12/30/2015 07/12/2016 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 10/13/2014 08/15/2018 Acromioclavicular (joint) (ligament) sprain 05/0808/31/2020 Stress reaction 11/18/2013 08/31/2020 Stress reaction of bone 04/14/2013 08/31/19 21 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 07/15/2016 Viral Warts: hands: R thumb prox to DIP to prox nail fold and L 2nd & 3rd finger prox nail fold 08/19/2012 01/06/2018 Vomiting 07/03/2011 08/28/2011 Sleep disturbance 02/02/2011 10/13/2014 Academic problem 02/02/2011 08/31/2020 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 BP readings 149/96>152/96>124/76>113/71>134/83. Pt denied OCP, illicit drug use. Hyperthyroidism r/o thyroid tests negative, anxiety needs to be r/o Plan: -continue to closely monitor vitals, BP all four extremities; would repeat BP and blood glucose if patient has another episode -CK WNL; prior concern for myositis -Renal US WNL; appreciate nephrology consult -Possible somatization of anxiety; appreciate psychology recommendations - Ophthalmology consult for evaluation for papilledema given hypertensive episode and headache - Methylphenidate held d/t nephrology w/u and hypertension Acute intractable headache 04/10/202008/31 Last Assessment & Plan: Assessment: bilateral frontal CALLES associated with hypertension, tachycardia, and diaphoresis occurring several times per day, increasing in frequency for past 2- 3 months PLAN: - Tylenol prn for pain - Neurology consult for input regarding possibility of complex migraine with dysautonomia Cough 12/06/2016 01/06/2018 Habit cough 12/06/2016 01/06/2018 Attention deficit hyperactiv ity disorder (ADHD), predominantly inattentive type 07/15/2016 01/06/2018 Seizures 12/30/2015 07/12/2016 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 10/13/2014 08/15/2018 Acromioclavicular (joint) (ligament) sprain 05/0808/31/2020 Stress reaction 11/18/2013 08/31/2020 Stress reaction of bone 04/14/2013 08/31/19 21 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 07/15/2016 Viral Warts: hands: R thumb prox to DIP to prox nail fold and L 2nd & 3rd finger prox nail fold 08/19/2012 01/06/2018 Vomiting 07/03/2011 08/28/2011 Sleep disturbance 02/02/2011 10/13/2014 Academic problem 02/02/2011 08/31/2020 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 BP readings 149/96>152/96>124/76>113/71>134/83. Pt denied OCP, illicit drug use. Hyperthyroidism r/o thyroid tests negative, anxiety needs to be r/o Plan: -continue to closely monitor vitals, BP all four extremities; would repeat BP and blood glucose if patient has another episode -CK WNL; prior concern for myositis -Renal US WNL; appreciate nephrology consult -Possible somatization of anxiety; appreciate psychology recommendations - Ophthalmology consult for evaluation for papilledema given hypertensive episode and headache - Methylphenidate held d/t nephrology w/u and hypertension Acute intractable headache 04/10/2020 02/25 /2021 Last Assessment & Plan: Assessment: bilateral frontal CALLES associated with hypertension, tachycardia, and diaphoresis occurring several times per day, increasing in frequency for past 2- 3 months PLAN: - Tylenol prn for pain - Neurology consult for input regarding possibility of complex migraine with dysautonomia Cough 12/06/2016 01/06/2018 Habit cough 12/06/2016 01/06/2018 Attention deficit hyperactiv ity disorder (ADHD), predominantly inattentive type 07/15/2016 01/06/2018 Seizures 12/30/2015 07/12/2016 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 10/13/2014 08/15/2018 Acromioclavicular (joint) (ligament) sprain 05/0808/31/2020 Stress reaction 11/18/2013 08/31/2020 Stress reaction of bone 04/14/2013 08/31/19 21 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 07/15/2016 Viral Warts: hands: R thumb prox to DIP to prox nail fold and L 2nd & 3rd finger prox nail fold 08/19/2012 01/06/2018 Vomiting 07/03/2011 08/28/2011 Sleep disturbance 02/02/2011 10/13/2014 Academic problem 02/02/2011 08/31/2020 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 BP readings 149/96>152/96>124/76>113/71>134/83. Pt denied OCP, illicit drug use. Hyperthyroidism r/o thyroid tests negative, anxiety needs to be r/o Plan: -continue to closely monitor vitals, BP all four extremities; would repeat BP and blood glucose if patient has another episode -CK WNL; prior concern for myositis -Renal US WNL; appreciate nephrology consult -Possible somatization of anxiety; appreciate psychology recommendations - Ophthalmology consult for evaluation for papilledema given hypertensive episode and headache - Methylphenidate held d/t nephrology w/u and hypertension Acute intractable headache 04/10/202008/31 Last Assessment & Plan: Assessment: bilateral frontal CALLES associated with hypertension, tachycardia, and diaphoresis occurring several times per day, increasing in frequency for past 2- 3 months PLAN: - Tylenol prn for pain - Neurology consult for input regarding possibility of complex migraine with dysautonomia Cough 12/06/2016 01/06/2018 Habit cough 12/06/2016 01/06/2018 Attention deficit hyperactiv ity disorder (ADHD), predominantly inattentive type 07/15/2016 01/06/2018 Seizures 12/30/2015 07/12/2016 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 10/13/2014 08/15/2018 Acromioclavicular (joint) (ligament) sprain 05/0808/31/2020 Stress reaction 11/18/2013 08/31/2020 Stress reaction of bone 04/14/2013 08/31/19 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 07/15/2016 Viral Warts: hands: R thumb prox to DIP to prox nail fold and L 2nd & 3rd finger prox nail fold 08/19/2012 01/06/2018 Vomiting 07/03/2011 08/28/2011 Sleep disturbance 02/02/2011 10/13/2014 Academic problem 02/02/2011 08/31/2020 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 BP readings 149/96>152/96>124/76>113/71>134/83. Pt denied OCP, illicit drug use. Hyperthyroidism r/o thyroid tests negative, anxiety needs to be r/o Plan: -continue to closely monitor vitals, BP all four extremities; would repeat BP and blood glucose if patient has another episode -CK WNL; prior concern for myositis -Renal US WNL; appreciate nephrology consult -Possible somatization of anxiety; appreciate psychology recommendations - Ophthalmology consult for evaluation for papilledema given hypertensive episode and headache - Methylphenidate held d/t nephrology w/u and hypertension Acute intractable headache 04/10/202008/31 Last Assessment & Plan: Assessment: bilateral frontal CALLES associated with hypertension, tachycardia, and diaphoresis occurring several times per day, increasing in frequency for past 2- 3 months PLAN: - Tylenol prn for pain - Neurology consult for input regarding possibility of complex migraine with dysautonomia Cough 12/06/2016 01/06/2018 Habit cough 12/06/2016 01/06/2018 Attention deficit hyperactiv ity disorder (ADHD), predominantly inattentive type 07/15/2016 01/06/2018 Seizures 12/30/2015 07/12/2016 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 10/13/2014 08/15/2018 Acromioclavicular (joint) (ligament) sprain 05/0808/31/2020 Stress reaction 11/18/2013 08/31/2020 Stress reaction of bone 04/14/2013 08/31/19 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 07/15/2016 Viral Warts: hands: R thumb prox to DIP to prox nail fold and L 2nd & 3rd finger prox nail fold 08/19/2012 01/06/2018 Vomiting 07/03/2011 08/28/2011 Sleep disturbance 02/02/2011 10/13/2014 Academic problem 02/02/2011 08/31/2020 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 BP readings 149/96>152/96>124/76>113/71>134/83. Pt denied OCP, illicit drug use. Hyperthyroidism r/o thyroid tests negative, anxiety needs to be r/o Plan: -continue to closely monitor vitals, BP all four extremities; would repeat BP and blood glucose if patient has another episode -CK WNL; prior concern for myositis -Renal US WNL; appreciate nephrology consult -Possible somatization of anxiety; appreciate psychology recommendations - Ophthalmology consult for evaluation for papilledema given hypertensive episode and headache - Methylphenidate held d/t nephrology w/u and hypertension Acute intractable headache 04/10/202008/31 Last Assessment & Plan: Assessment: bilateral frontal CALLES associated with hypertension, tachycardia, and diaphoresis occurring several times per day, increasing in frequency for past 2- 3 months PLAN: - Tylenol prn for pain - Neurology consult for input regarding possibility of complex migraine with dysautonomia Cough 12/06/2016 01/06/2018 Habit cough 12/06/2016 01/06/2018 Attention deficit hyperactiv ity disorder (ADHD), predominantly inattentive type 07/15/2016 01/06/2018 Seizures 12/30/2015 07/12/2016 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 10/13/2014 08/15/2018 Acromioclavicular (joint) (ligament) sprain 05/0808/31/2020 Stress reaction 11/18/2013 08/31/2020 Stress reaction of bone 04/14/2013 08/31/19 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 07/15/2016 Viral Warts: hands: R thumb prox to DIP to prox nail fold and L 2nd & 3rd finger prox nail fold 08/19/2012 01/06/2018 Vomiting 07/03/2011 08/28/2011 Sleep disturbance 02/02/2011 10/13/2014 Academic problem 02/02/2011 08/31/2020 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 BP readings 149/96>152/96>124/76>113/71>134/83. Pt denied OCP, illicit drug use. Hyperthyroidism r/o thyroid tests negative, anxiety needs to be r/o Plan: -continue to closely monitor vitals, BP all four extremities; would repeat BP and blood glucose if patient has another episode -CK WNL; prior concern for myositis -Renal US WNL; appreciate nephrology consult -Possible somatization of anxiety; appreciate psychology recommendations - Ophthalmology consult for evaluation for papilledema given hypertensive episode and headache - Methylphenidate held d/t nephrology w/u and hypertension Acute intractable headache 04/10/202008/31 Last Assessment & Plan: Assessment: bilateral frontal CALLES associated with hypertension, tachycardia, and diaphoresis occurring several times per day, increasing in frequency for past 2- 3 months PLAN: - Tylenol prn for pain - Neurology consult for input regarding possibility of complex migraine with dysautonomia Cough 12/06/2016 01/06/2018 Habit cough 12/06/2016 01/06/2018 Attention deficit hyperactiv ity disorder (ADHD), predominantly inattentive type 07/15/2016 01/06/2018 Seizures 12/30/2015 07/12/2016 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 10/13/2014 08/15/2018 Acromioclavicular (joint) (ligament) sprain 05/0808/31/2020 Stress reaction 11/18/2013 08/31/2020 Stress reaction of bone 04/14/2013 08/31/19 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 07/15/2016 Viral Warts: hands: R thumb prox to DIP to prox nail fold and L 2nd & 3rd finger prox nail fold 08/19/2012 01/06/2018 Vomiting 07/03/2011 08/28/2011 Sleep disturbance 02/02/2011 10/13/2014 Academic problem 02/02/2011 08/31/2020 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 BP readings 149/96>152/96>124/76>113/71>134/83. Pt denied OCP, illicit drug use. Hyperthyroidism r/o thyroid tests negative, anxiety needs to be r/o Plan: -continue to closely monitor vitals, BP all four extremities; would repeat BP and blood glucose if patient has another episode -CK WNL; prior concern for myositis -Renal US WNL; appreciate nephrology consult -Possible somatization of anxiety; appreciate psychology recommendations - Ophthalmology consult for evaluation for papilledema given hypertensive episode and headache - Methylphenidate held d/t nephrology w/u and hypertension Acute intractable headache 04/10/202008/31 Last Assessment & Plan: Assessment: bilateral frontal CALLES associated with hypertension, tachycardia, and diaphoresis occurring several times per day, increasing in frequency for past 2- 3 months PLAN: - Tylenol prn for pain - Neurology consult for input regarding possibility of complex migraine with dysautonomia Cough 12/06/2016 01/06/2018 Habit cough 12/06/2016 01/06/2018 Attention deficit hyperactiv ity disorder (ADHD), predominantly inattentive type 07/15/2016 01/06/2018 Seizures 12/30/2015 07/12/2016 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 10/13/2014 08/15/2018 Acromioclavicular (joint) (ligament) sprain 05/0808/31/2020 Stress reaction 11/18/2013 08/31/2020 Stress reaction of bone 04/14/2013 08/31/19 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 07/15/2016 Viral Warts: hands: R thumb prox to DIP to prox nail fold and L 2nd & 3rd finger prox nail fold 08/19/2012 01/06/2018 Vomiting 07/03/2011 08/28/2011 Sleep disturbance 02/02/2011 10/13/2014 Academic problem 02/02/2011 08/31/2020 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 BP readings 149/96>152/96>124/76>113/71>134/83. Pt denied OCP, illicit drug use. Hyperthyroidism r/o thyroid tests negative, anxiety needs to be r/o Plan: -continue to closely monitor vitals, BP all four extremities; would repeat BP and blood glucose if patient has another episode -CK WNL; prior concern for myositis -Renal US WNL; appreciate nephrology consult -Possible somatization of anxiety; appreciate psychology recommendations - Ophthalmology consult for evaluation for papilledema given hypertensive episode and headache - Methylphenidate held d/t nephrology w/u and hypertension Acute intractable headache 04/10/202008/31 Last Assessment & Plan: Assessment: bilateral frontal CALLES associated with hypertension, tachycardia, and diaphoresis occurring several times per day, increasing in frequency for past 2- 3 months PLAN: - Tylenol prn for pain - Neurology consult for input regarding possibility of complex migraine with dysautonomia Cough 12/06/2016 01/06/2018 Habit cough 12/06/2016 01/06/2018 Attention deficit hyperactiv ity disorder (ADHD), predominantly inattentive type 07/15/2016 01/06/2018 Seizures 12/30/2015 07/12/2016 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 10/13/2014 08/15/2018 Acromioclavicular (joint) (ligament) sprain 05/0808/31/2020 Stress reaction 11/18/2013 08/31/2020 Stress reaction of bone 04/14/2013 08/31/19 21 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 07/15/2016 Viral Warts: hands: R thumb prox to DIP to prox nail fold and L 2nd & 3rd finger prox nail fold 08/19/2012 01/06/2018 Vomiting 07/03/2011 08/28/2011 Sleep disturbance 02/02/2011 10/13/2014 Academic problem 02/02/2011 08/31/2020 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 BP readings 149/96>152/96>124/76>113/71>134/83. Pt denied OCP, illicit drug use. Hyperthyroidism r/o thyroid tests negative, anxiety needs to be r/o Plan: -continue to closely monitor vitals, BP all four extremities; would repeat BP and blood glucose if patient has another episode -CK WNL; prior concern for myositis -Renal US WNL; appreciate nephrology consult -Possible somatization of anxiety; appreciate psychology recommendations - Ophthalmology consult for evaluation for papilledema given hypertensive episode and headache - Methylphenidate held d/t nephrology w/u and hypertension Acute intractable headache 04/10/202008/31 Last Assessment & Plan: Assessment: bilateral frontal CALLES associated with hypertension, tachycardia, and diaphoresis occurring several times per day, increasing in frequency for past 2- 3 months PLAN: - Tylenol prn for pain - Neurology consult for input regarding possibility of complex migraine with dysautonomia Cough 12/06/2016 01/06/2018 Habit cough 12/06/2016 01/06/2018 Attention deficit hyperactiv ity disorder (ADHD), predominantly inattentive type 07/15/2016 01/06/2018 Seizures 12/30/2015 07/12/2016 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 10/13/2014 08/15/2018 Acromioclavicular (joint) (ligament) sprain 05/0808/31/2020 Stress reaction 11/18/2013 08/31/2020 Stress reaction of bone 04/14/2013 08/31/19 21 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 07/15/2016 Viral Warts: hands: R thumb prox to DIP to prox nail fold and L 2nd & 3rd finger prox nail fold 08/19/2012 01/06/2018 Vomiting 07/03/2011 08/28/2011 Sleep disturbance 02/02/2011 10/13/2014 Academic problem 02/02/2011 08/31/2020 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 BP readings 149/96>152/96>124/76>113/71>134/83. Pt denied OCP, illicit drug use. Hyperthyroidism r/o thyroid tests negative, anxiety needs to be r/o Plan: -continue to closely monitor vitals, BP all four extremities; would repeat BP and blood glucose if patient has another episode -CK WNL; prior concern for myositis -Renal US WNL; appreciate nephrology consult -Possible somatization of anxiety; appreciate psychology recommendations - Ophthalmology consult for evaluation for papilledema given hypertensive episode and headache - Methylphenidate held d/t nephrology w/u and hypertension Acute intractable headache 04/10/202008/31 Last Assessment & Plan: Assessment: bilateral frontal CALLES associated with hypertension, tachycardia, and diaphoresis occurring several times per day, increasing in frequency for past 2- 3 months PLAN: - Tylenol prn for pain - Neurology consult for input regarding possibility of complex migraine with dysautonomia Cough 12/06/2016 01/06/2018 Habit cough 12/06/2016 01/06/2018 Attention deficit hyperactiv ity disorder (ADHD), predominantly inattentive type 07/15/2016 01/06/2018 Seizures 12/30/2015 07/12/2016 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 10/13/2014 08/15/2018 Acromioclavicular (joint) (ligament) sprain 05/0808/31/2020 Stress reaction 11/18/2013 08/31/2020 Stress reaction of bone 04/14/2013 08/31/19 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 07/15/2016 Viral Warts: hands: R thumb prox to DIP to prox nail fold and L 2nd & 3rd finger prox nail fold 08/19/2012 01/06/2018 Vomiting 07/03/2011 08/28/2011 Sleep disturbance 02/02/2011 10/13/2014 Academic problem 02/02/2011 08/31/2020 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 Recurrent acute tonsillitis 12/22/200903/2017 Epileptic grand mal status 01/18/200910/13 PSYMOTR EPIL W/O INT EPI 09/27/2008 015 Abnormality of gait 04/01/2008 07/15/2016 documented as of this encounter (statuses as of 05/29/2022) [facility] note* Diagnosis Well adolescent visit without abnormal findings- Primary Intermittent asthma, well controlled Unspecified asthma Negative depression screening Encounter for screening for lipoid disorders Screening for lipoid disorders Encounter for screening for respiratory tuberculosis Screening examination for pulmonary tuberculosis [facility] Diagnosis Encounter for screening for respiratory tuberculosis- Primary Screening examination for pulmonary tuberculosis [facility] Diagnosis PPD screening test- Primary Screening examination for pulmonary tuberculosis documented in this encounter [facility] note* Diagnosis Screening examination for pulmonary tuberculosis- Primary [facility] Diagnosis Acquired mallet toe, right- Primary Bilateral foot pain Pain in limb [facility] Diagnosis 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, not elsewhere classified [facility] Diagnosis POTS (postural orthostatic tachycardia syndrome) Tachycardia, unspecified Migraine without aura and without status migrainosus, not intractable Migraine without aura, without mention of intractable migraine without mention of status migrainosus [facility] 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 [facility] Diagnosis Flu-like symptoms- Primary Other general symptoms Suspected COVID-19 virus infection Wheezing [facility] Diagnosis Easy bruising- Primary Other symptoms involving skin and integumentary tissues [facility] Diagnosis POTS (postural orthostatic tachycardia syndrome) Tachycardia, unspecified [facility] 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 [facility] Diagnosis Mallet toe, acquired, left- Primary Mallet toe, acquired, left [facility] 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 [facility] Diagnosis Post-operative state- Primary Other postprocedural status [facility]* 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 [facility] Diagnosis Acquired mallet toe, right- Primary Post-operative state Other postprocedural status Ingrown toenail of both feet MT (mallet toe), right [facility] Diagnosis Ingrowing nail- Primary Pain in toe of left foot Pain in limb Pain in toe of right foot Pain in limb MT (mallet toe), right [facility] 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 MT (mallet toe), right [facility] Diagnosis Pain in toe of right foot- Primary Pain in limb MT (mallet toe), right documented in this encounter [facility] note* 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 MT (mallet toe), right documented in this encounter [facility]* Diagnosis Gastroesophageal reflux disease, unspecified whether esophagitis present- Primary Elevated blood pressure reading without diagnosis of hypertension Pre-op examination Preoperative examination, unspecified Mild intermittent asthma without complication Unspecified asthma POTS (postural orthostatic tachycardia syndrome) Tachycardia, unspecified Delayed emergence from anesthesia, subsequent encounter Nonintractable epilepsy without status epilepticus, 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 MT (mallet toe), right documented in this encounter [facility] note* Diagnosis MT (mallet toe), right- Primary MT (mallet toe), right documented in this encounter [facility] note* Diagnosis Seborrheic dermatitis- Primary Seborrheic dermatitis, unspecified documented in this encounter [facility] note* Diagnosis Post-operative state- Primary Other postprocedural status documented in this encounter [facility] note* Diagnosis Perioral dermatitis- Primary Rosacea documented in this encounter [facility] note* 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 documented in this encounter [facility] note* 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 documented in this encounter [facility] note* 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 documented in this encounter [facility] note* Diagnosis Post-operative state- Primary Other postprocedural status Acquired mallet toe, right Ingrowing nail documented in this encounter [facility] note* Diagnosis Ingrown toenail of both feet- Primary Onychodystrophy Other specified disease of nail documented in this encounter [facility] note* Diagnosis Ingrown toenail of both feet- Primary Post-operative state Other postprocedural status documented in this encounter [facility] for referral (narrative)* Diagnostic Procedure Only (Routine) - Pending Review Specialty Diagnoses / Procedures Referred By Chaz maxwell Referred To Contact XR IMAGING Diagnoses Acquired mallet toe, right Bilateral foot pain Procedures XR FOOT GENERAL 3V AP/LAT/OBL RIGHT RADEX FOOT COMPLETE MINIMUM 3 VIEWS Clifford Valenzuela DPM [address] [address] Xr Imaging Referral ID Status Reason Start Date Expiration Date Visits Requested Visits Authorized [id number] Pending Review Auto-Generat ed Referral 10/10/2021 11/08/2022 1 1 * Diagnostic Procedure Only (Routine) - Pending Review Specialty Diagnoses / Procedures Referred By Contac t Referred To Contact XR IMAGING Diagnoses Acquired mallet toe, right Bilateral foot pain Procedures XR FOOT GENERAL 3V AP/LAT/OBL LEFT RADEX FOOT COMPLETE MINIMUM 3 VIEWS Clifford Valenzuela DPM [address] [place] [id number] Xr Imaging Referral ID Status Reason Start Date Expiration Date Visits Requested Visits Authorized [id number] Pending Review Auto-Generat ed Referral 10/10/2021 11/08/2022 1 1 [facility] for referral (narrative)* Diagnostic Procedure Only (Routine) - Pending Review Specialty Diagnoses / Procedures Referred By Contac t Referred To Contact XR IMAGING Diagnoses Post-operative state Procedures XR FOOT GENERAL 3V AP/LAT/OBL LEFT RADEX FOOT COMPLETE MINIMUM 3 VIEWS Clifford Valenzuela DPM [address] [place] [id number] Xr Imaging Referral ID Status Reason Start Date Expiration Date Visits Requested Visits Authorized [id number] Pending Review Auto-Generat ed Referral 06/10/2022 07/05/2023 1 1 [facility] for referral (narrative)* Diagnostic Procedure Only (Routine) - Pending Review Specialty Diagnoses / Procedures Referred By Contac t Referred To Contact XR IMAGING Diagnoses Post-operative state Procedures XR FOOT GENERAL 3V AP/LAT/OBL RIGHT RADEX FOOT COMPLETE MINIMUM 3 VIEWS Clifford Valenzuela DPM [address] [place] [address] Xr Imaging Referral ID Status Reason Start Date Expiration Date Visits Requested Visits Authorized [id number] Pending Review Auto-Generat ed Referral 12/04/2022 01/03/2024 1 [facility] Diagnostic Procedure Only (Routine) - Pending Review Specialty Diagnoses / Procedures Referred By Contac t Referred To Contact XR IMAGING Diagnoses Post-operative state Acquired mallet toe, right Procedures XR FOOT GENERAL 3V AP/LAT/OBL RIGHT RADEX FOOT COMPLETE MINIMUM 3 VIEWS Clifford Valenzuela DPM [address] [address] Xr Imaging Referral ID Status Reason Start Date Expiration Date Visits Requested Visits Authorized [id number] Pending Review Auto-Generat ed Referral 01/18/2023 02/14/2024 1 1 [facility] Summary Purpose Family History No Family History Records FoundThere may be information available, but it has not been provided by the sender.No Family History Records FoundNo Family History Records FoundNo Family History Records FoundNo Family History Records Found Advance Directives Documents on File Type Date Recorded Patient Plant 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 Review of System There may be information available, but it has not been provided by the sender. History of Present Illness There may be information available, but it has not been provided by the sender. Hospital Course Note Send Summary: Discharge Summ rafael Providers: Provider RoleProvider Name ReferringRequired, No Pcp Eileen Benitez Faisal Note Recipients: Eileen Gutiérrez MD Quereshy, Faisal, MD Discharge: Summary: Admission Date: .30-Dec-2019 13:50:00 Discharge Date: 31-Dec-2019 Attending Physician at Discharge: Petar Sorensen Admission Reason: Subperiosteal Abscess Final Discharge Diagnoses: Subperiosteal abscess of jaw Procedures: none Condition at Discharge: Satisfactory Disposition at Discharge: .Home Vital Signs: T PRBPSpO2 [id number]% Date/Time12/30 16: 16: 16: 16: 16:13 Range(36.6C - 37.2C ) (83 - 104 ) (17 - 24 ) (108 - 132 )/ (61 - 80 ) (96% - 98% ) Highest temp of 37.2 C was recorded at 12/30 12:20 Physical Exam: Vitals reviewed in EMR, afebrile CESAR: ~35mm, wnl on forced opening, patient preferencing speaking without opening mouth Swelling near resolved intraorally near the right posterior mandible at site #32. No fluctuance, no ten (more content not included)... Medications Administered Section Administered Medications Medication Order MAR Action Action Date Dose Rate Site PPD (Mantoux) Intradermal Given 10/01/2021 10:24 EDT 0.1 mL Left Low er Forearm Administered Medications Medication Order MAR Action Action Date Dose Rate Site PPD (Mantoux) Intradermal Given 10/08/2021 11:19 EDT 0.1 mL Right Low er Forearm Inactive Administered Medications - up to 3 most recent administrations Medication Order MAR Action Action Date Dose Rate Site fentaNYL 50 mcg/mL 50 mcg injection (SUBLIMAZE) 50 mcg, INTRAVENOUS, EVERY 5 MINUTES NEEDED, 2 doses, Starting on Fri10/25/22 at 0918, Until 10/26/22 at 0303, FIRST LINE THERAPY for mild, moderate, or severe pain, Every 5 minutes. Use if patient unable to tolerate oral therapy. Hold for respiratory rate less than 12 Max total dose: 100 mcg, Recovery or Phase I (only) Given 10/25/2022 9:34 AM EDT 50 mcg lactated ringers iv infusion 125 mL/hr, INTRAVENOUS, CONTINUOUS, Starting on Fri10/25/22 at 0930, Until 10/26/22 at 0303, Recovery or Phase I (only) Rate Verify 10/25/2022 9:30 AM EDT 125 mL/hr 125 mL/hr morphine 3 mg injection 3 mg, INTRAVENOUS, EVERY 10 MINUTES NEEDED, 5 doses, Starting on Fri10/25/22 at 0918, Until 10/26/22 at 0303, SECOND LINE THERAPY for mild, moderate, or severe pain, Every 10 minutes. Use if patient unable to tolerate oral therapy. Hold for respiratory rate less than 12 Max total dose: 12 mg, Recovery or Phase I (only) ondansetron (PF) 4 mg injection (ZOFRAN) 4 mg, INTRAVENOUS, NEEDED, 1 dose, Starting on Fri10/25/22 at 0918, Until 10/26/22 at 0303, Nausea/Vomiting - First Line - Parenteral, Give IV push over 2 minutes. If still nauseated 10 min after first line antiemetic dose, proceed to second line antiemetic, Recovery or Phase I (only) ondansetron (PF) 4 mg injection (ZOFRAN) 4 mg, INTRAVENOUS, NEEDED, 1 dose, Starting on Fri10/25/22 at 0918, Until 10/26/22 at 0303, Nausea/Vomiting - Second Line - Parenteral, Give IV push over 2 minutes., Recovery or Phase I (only) Health Concerns Infection Onset Date Last Indicated Resolved Time COVID-19 Rule-Out 11/26/2021 11/26/2021 Reason for Referral Specialty Diagnoses / Procedures Referred By Contcassius t Referred To Contact Diagnoses Narcolepsy without cataplexy Rosales Sanders APRN.INDUSTRIAL RENDERER [address] [facility] [address] [place] [address] Referral ID Status Reason Start Date Expiration Date V isits Requested Visits Authorized [id number] Pending Review 1 1 Additional Source Comments INFORMATION SOURCE (unrecogn ized section and content) DATE CREATED AUTHOR AUTHOR'S ORGANIZ ATION 01/26/2020 [facility] DATE CREATED AUTHOR AUTHOR'S ORGANIZ ATION 11/07/2022 [facility] DATE CREATED AUTHOR AUTHOR'S ORGANIZ ATION 06/13/2023 [facility] DATE CREATED AUTHOR AUTHOR'S ORGANIZ ATION 06/23/2023 [facility] Reason for Visit (unrecogniz ed section and content) Reason Comments Appointment patient is requestin g an appointment with Dr. Valenzuela Reason Comments Physical Reason Comments PPD Read Reason Comments PPD Screening Or Test Reason Comments New Reason Comments Refill Request Reason Onset Date Comments Refill Request 11/20/2021 Reason Comments Head Congestion chest congestion, co ugh, chills and fever x 1.5 days Reason Comments New Patient Evaluation POTS/Med Refill Reason Onset Date Comments Refill Request 02/18/2022 Reason Comments Established Patient Follow Up Post Op Reason Comments Medication Problem Reason Onset Date Comments Medication Problem 06/21/2022 Only 2 Concer ta left Reason Comments Follow Up Pain Reason Comments Established Patient Reason Onset Date Comments Medication Problem 08/22/2022 Reason Comments Forms Reason Comments Established Patient Follow Up Reason Onset Date Comments Refill Request 10/12/2022 Specialty Diagnoses / Procedures Referred By Chaz Referred To Contact Diagnoses MT (mallet toe), right Procedures CORRECTION HAMMERTOE TX OPEN TENDON FLEXOR TOE 1 TENDON SPX CORRECTION HAMMER TOE ONE TOE UNILATERAL REPAIR TOE HAMMER [facility] [address] [place] [address] Referral ID Status Reason Start Date Expiration Date Visits Re quested Visits Authorized [id number] 1 1 Reason Comments Follow Up Gyant interaction - F/U - attempt made. No answer. Reason Comments rash above the lip Since October 25, us ing mupirocin x 2 wks ago and it's not helping Reason Comments Rash Face Reason Comments Medication Question Reason Comments Follow Up Reason Onset Date Comments Refill Request 02/26/2023 Reason Comments Radiology MRI Specialty Diagnoses / Procedures Referred By Chaz maxwell Referred To Contact Radiology / RADIO MRI [facility] Epigastric pain Gastritis GERD (gastroesophageal reflux disease) Liver lesion Elevated LFTs MRI ABDOMEN W CON - MRI LIVER W CONTRAST Epigastric pain R10.13 Gastritis K29.09 GERD K21.9 Liver lesion K76.9 Elevated LFTs R79.89 Procedures MRI ABDOMEN W/CONTRAST MATERIAL MRI ABDOMEN W/O & W/CONTRAST MATERIAL MRI WWO ABD [address] Apolinar Martinez, VOCATIONAL COUNSELOR.SUPERVISOR [employer] [address] [place] [address] [place] [address] Referral ID Status Reason Start Date Expiration Date Visits Re quested Visits Authorized [id number] Closed 11/25/2022 05/24/2023 1 1 Source Comments (unrecognize d section and content) In the event this informatio n is protected by the Federal Confidentiality of Alcohol and Drug Abuse Patient Records regulations: The Federal rules restrict any use of the information to criminally investigate or prosecute any alcohol or drug abuse patient.[facility] the event this information is protected by the Federal Confidentiality of Alcohol and Drug Abuse Patient Records regulations: The Federal rules restrict any use of the information to criminally investigate or prosecute any alcohol or drug abuse patient.[facility] the event this information is protected by the Federal Confidentiality of Alcohol and Drug Abuse Patient Records regulations: The Federal rules restrict any use of the information to criminally investigate or prosecute any alcohol or drug abuse patient.[facility] the event this information is protected by the Federal Confidentiality of Alcohol and Drug Abuse Patient Records regulations: The Federal rules restrict any use of the information to criminally investigate or prosecute any alcohol or drug abuse patient.[facility] the event this information is protected by the Federal Confidentiality of Alcohol and Drug Abuse Patient Records regulations: The Federal rules restrict any use of the information to criminally investigate or prosecute any alcohol or drug abuse patient.[facility] the event this information is protected by the Federal Confidentiality of Alcohol and Drug Abuse Patient Records regulations: The Federal rules restrict any use of the information to criminally investigate or prosecute any alcohol or drug abuse patient.[facility] Hospital[facility] the event this information is protected by the Federal Confidentiality of Alcohol and Drug Abuse Patient Records regulations: The Federal rules restrict any use of the information to criminally investigate or prosecute any alcohol or drug abuse patient.[facility] HospitalIn the event this information is protected by the Federal Confidentiality of Alcohol and Drug Abuse Patient Records regulations: The Federal rules restrict any use of the information to criminally investigate or prosecute any alcohol or drug abuse patient.[facility] HospitalIn the event this information is protected by the Federal Confidentiality of Alcohol and Drug Abuse Patient Records regulations: The Federal rules restrict any use of the information to criminally investigate or prosecute any alcohol or drug abuse patient.[facility] HospitalIn the event this information is protected by the Federal Confidentiality of Alcohol and Drug Abuse Patient Records regulations: The Federal rules restrict any use of the information to criminally investigate or prosecute any alcohol or drug abuse patient.[facility] HospitalIn the event this information is protected by the Federal Confidentiality of Alcohol and Drug Abuse Patient Records regulations: The Federal rules restrict any use of the information to criminally investigate or prosecute any alcohol or drug abuse patient.[facility] HospitalIn the event this information is protected by the Federal Confidentiality of Alcohol and Drug Abuse Patient Records regulations: The Federal rules restrict any use of the information to criminally investigate or prosecute any alcohol or drug abuse patient.[facility] HospitalIn the event this information is protected by the Federal Confidentiality of Alcohol and Drug Abuse Patient Records regulations: The Federal rules restrict any use of the information to criminally investigate or prosecute any alcohol or drug abuse patient.[facility] HospitalIn the event this information is protected by the Federal Confidentiality of Alcohol and Drug Abuse Patient Records regulations: The Federal rules restrict any use of the information to criminally investigate or prosecute any alcohol or drug abuse patient.[facility] HospitalIn the event this information is protected by the Federal Confidentiality of Alcohol and Drug Abuse Patient Records regulations: The Federal rules restrict any use of the information to criminally investigate or prosecute any alcohol or drug abuse patient.[facility] HospitalIn the event this information is protected by the Federal Confidentiality of Alcohol and Drug Abuse Patient Records regulations: The Federal rules restrict any use of the information to criminally investigate or prosecute any alcohol or drug abuse patient.[facility] HospitalIn the event this information is protected by the Federal Confidentiality of Alcohol and Drug Abuse Patient Records regulations: The Federal rules restrict any use of the information to criminally investigate or prosecute any alcohol or drug abuse patient.[facility] HospitalIn the event this information is protected by the Federal Confidentiality of Alcohol and Drug Abuse Patient Records regulations: The Federal rules restrict any use of the information to criminally investigate or prosecute any alcohol or drug abuse patient.[facility] HospitalIn the event this information is protected by the Federal Confidentiality of Alcohol and Drug Abuse Patient Records regulations: The Federal rules restrict any use of the information to criminally investigate or prosecute any alcohol or drug abuse patient.[facility] HospitalIn the event this information is protected by the Federal Confidentiality of Alcohol and Drug Abuse Patient Records regulations: The Federal rules restrict any use of the information to criminally investigate or prosecute any alcohol or drug abuse patient.[facility] HospitalIn the event this information is protected by the Federal Confidentiality of Alcohol and Drug Abuse Patient Records regulations: The Federal rules restrict any use of the information to criminally investigate or prosecute any alcohol or drug abuse patient.[facility] HospitalIn the event this information is protected by the Federal Confidentiality of Alcohol and Drug Abuse Patient Records regulations: The Federal rules restrict any use of the information to criminally investigate or prosecute any alcohol or drug abuse patient.[facility] HospitalIn the event this information is protected by the Federal Confidentiality of Alcohol and Drug Abuse Patient Records regulations: The Federal rules restrict any use of the information to criminally investigate or prosecute any alcohol or drug abuse patient.[facility] HospitalIn the event this information is protected by the Federal Confidentiality of Alcohol and Drug Abuse Patient Records regulations: The Federal rules restrict any use of the information to criminally investigate or prosecute any alcohol or drug abuse patient.[facility] HospitalIn the event this information is protected by the Federal Confidentiality of Alcohol and Drug Abuse Patient Records regulations: The Federal rules restrict any use of the information to criminally investigate or prosecute any alcohol or drug abuse patient.[facility] HospitalIn the event this information is protected by the Federal Confidentiality of Alcohol and Drug Abuse Patient Records regulations: The Federal rules restrict any use of the information to criminally investigate or prosecute any alcohol or drug abuse patient.[facility] HospitalIn the event this information is protected by the Federal Confidentiality of Alcohol and Drug Abuse Patient Records regulations: The Federal rules restrict any use of the information to criminally investigate or prosecute any alcohol or drug abuse patient.[facility] HospitalIn the event this information is protected by the Federal Confidentiality of Alcohol and Drug Abuse Patient Records regulations: The Federal rules restrict any use of the information to criminally investigate or prosecute any alcohol or drug abuse patient.[facility] HospitalIn the event this information is protected by the Federal Confidentiality of Alcohol and Drug Abuse Patient Records regulations: The Federal rules restrict any use of the information to criminally investigate or prosecute any alcohol or drug abuse patient.[facility] HospitalIn the event this information is protected by the Federal Confidentiality of Alcohol and Drug Abuse Patient Records regulations: The Federal rules restrict any use of the information to criminally investigate or prosecute any alcohol or drug abuse patient.[facility] HospitalIn the event this information is protected by the Federal Confidentiality of Alcohol and Drug Abuse Patient Records regulations: The Federal rules restrict any use of the information to criminally investigate or prosecute any alcohol or drug abuse patient.[facility] HospitalIn the event this information is protected by the Federal Confidentiality of Alcohol and Drug Abuse Patient Records regulations: The Federal rules restrict any use of the information to criminally investigate or prosecute any alcohol or drug abuse patient.[facility] HospitalIn the event this information is protected by the Federal Confidentiality of Alcohol and Drug Abuse Patient Records regulations: The Federal rules restrict any use of the information to criminally investigate or prosecute any alcohol or drug abuse patient.[facility] HospitalIn the event this information is protected by the Federal Confidentiality of Alcohol and Drug Abuse Patient Records regulations: The Federal rules restrict any use of the information to criminally investigate or prosecute any alcohol or drug abuse patient.[facility] HospitalIn the event this information is protected by the Federal Confidentiality of Alcohol and Drug Abuse Patient Records regulations: The Federal rules restrict any use of the information to criminally investigate or prosecute any alcohol or drug abuse patient.[facility] HospitalIn the event this information is protected by the Federal Confidentiality of Alcohol and Drug Abuse Patient Records regulations: The Federal rules restrict any use of the information to criminally investigate or prosecute any alcohol or drug abuse patient.[facility] HospitalIn the event this information is protected by the Federal Confidentiality of Alcohol and Drug Abuse Patient Records regulations: The Federal rules restrict any use of the information to criminally investigate or prosecute any alcohol or drug abuse patient.[facility] HospitalIn the event this information is protected by the Federal Confidentiality of Alcohol and Drug Abuse Patient Records regulations: The Federal rules restrict any use of the information to criminally investigate or prosecute any alcohol or drug abuse patient.[facility] HospitalIn the event this information is protected by the Federal Confidentiality of Alcohol and Drug Abuse Patient Records regulations: The Federal rules restrict any use of the information to criminally investigate or prosecute any alcohol or drug abuse patient.[facility] HospitalIn the event this information is protected by the Federal Confidentiality of Alcohol and Drug Abuse Patient Records regulations: The Federal rules restrict any use of the information to criminally investigate or prosecute any alcohol or drug abuse patient.[facility] HospitalIn the event this information is protected by the Federal Confidentiality of Alcohol and Drug Abuse Patient Records regulations: The Federal rules restrict any use of the information to criminally investigate or prosecute any alcohol or drug abuse patient.[facility] HospitalIn the event this information is protected by the Federal Confidentiality of Alcohol and Drug Abuse Patient Records regulations: The Federal rules restrict any use of the information to criminally investigate or prosecute any alcohol or drug abuse patient.[facility] HospitalIn the event this information is protected by the Federal Confidentiality of Alcohol and Drug Abuse Patient Records regulations: The Federal rules restrict any use of the information to criminally investigate or prosecute any alcohol or drug abuse patient.[facility] HospitalIn the event this information is protected by the Federal Confidentiality of Alcohol and Drug Abuse Patient Records regulations: The Federal rules restrict any use of the information to criminally investigate or prosecute any alcohol or drug abuse patient.[facility] HospitalIn the event this information is protected by the Federal Confidentiality of Alcohol and Drug Abuse Patient Records regulations: The Federal rules restrict any use of the information to criminally investigate or prosecute any alcohol or drug abuse patient.[facility] HospitalIn the event this information is protected by the Federal Confidentiality of Alcohol and Drug Abuse Patient Records regulations: The Federal rules restrict any use of the information to criminally investigate or prosecute any alcohol or drug abuse patient.[facility] Care Teams (unrecognized sec tion and content) Ecommerce Project Manager Relationship Specialty Start Date End Date Eileen Gutiérrez, DO [address] [address] [place] [address] PCP - General 02 Ecommerce Project Manager Relationship Specialty Start Date End Date Eileen Gutiérrez, DO [address] [address] [place] [address] PCP - General 02 Ecommerce Project Manager Relationship Specialty Start Date End Date Eileen Gutiérrez, DO [address] [address] [place] [address] PCP - General 02 Ecommerce Project Manager Relationship Specialty Start Date End Date Eileen Gutiérrez, DO [address] [address] [place] [address] PCP - General 02 Ecommerce Project Manager Relationship Specialty Start Date End Date Eileen Gutiérrez, DO [address] [address] [place] [address] PCP - General 02 Ecommerce Project Manager Relationship Specialty Start Date End Date Eileen Gutiérrez, DO [address] [address] [place] [address] PCP - General 02 Ecommerce Project Manager Relationship Specialty Start Date End Date Eileen Gutiérrez, DO [address] [address] [place] [address] PCP - General 02 Ecommerce Project Manager Relationship Specialty Start Date End Date Eileen Gutiérrez, DO [address] [address] [place] [address] PCP - General 02 Ecommerce Project Manager Relationship Specialty Start Date End Date Eileen Gutiérrez, DO [address] [address] [place] [address] PCP - General 02 Ecommerce Project Manager Relationship Specialty Start Date End Date Eileen Gutiérrez, DO [address] [address] [place] [address] PCP - General 02 Ecommerce Project Manager Relationship Specialty Start Date End Date Eileen Gutiérrez, DO [address] [address] [place] [address] PCP - General 02 Ecommerce Project Manager Relationship Specialty Start Date End Date Eileen Gutiérrez, DO [address] [address] [place] [address] PCP - General 02 Ecommerce Project Manager Relationship Specialty Start Date End Date Eileen Gutiérrez, DO [address] [address] [place] [address] PCP - General 02 Ecommerce Project Manager Relationship Specialty Start Date End Date Eileen Gutiérrez, DO [address] [address] [place] [address] PCP - General 02 Ecommerce Project Manager Relationship Specialty Start Date End Date Eileen Gutiérrez, DO [address] [address] [place] [address] PCP - General 02 Ecommerce Project Manager Relationship Specialty Start Date End Date Eileen Gutiérrez, DO [address] [address] [place] [address] PCP - General 02 Ecommerce Project Manager Relationship Specialty Start Date End Date Eileen Gutiérrez, DO [address] [address] [place] [address] PCP - General 02 Ecommerce Project Manager Relationship Specialty Start Date End Date Eileen Gutiérrez, DO [address] [address] [address] [facility] [place] [address] PCP - General 02 Ecommerce Project Manager Relationship Specialty Start Date End Date Eileen Gutiérrez, DO [address] [address] [place] [facility] [place] [address] PCP - General 02 Lisa Pacheco, train operations manager [place] [employer] [place] Guide 11/06/22 12/06/22 Ecommerce Project Manager Relationship Specialty Start Date End Date Eileen Gutiérrez, DO [address] [address] [address] [facility] [place] [address] PCP - General 02 Lisa Pacheco, train operations manager [place] [employer] 11/06/22 12/06/22 Ecommerce Project Manager Relationship Specialty Start Date End Date Eileen Gutiérrez, DO [address] [address] [address] [facility] [place] [address] PCP - General 02 Lisa Pacheco, train operations manager [place] [employer] 11/06/22 12/06/22 Ecommerce Project Manager Relationship Specialty Start Date End Date Eileen Gutiérrez, DO [address] [address] [place] [facility] [place] [address] PCP - General 02 Lisa Pacheco, train operations manager [place] [employer] 11/06/22 12/06/22 Ecommerce Project Manager Relationship Specialty Start Date End Date Eileen Gutiérrez, DO [address] [address] [place] [address] PCP - General 02 Lisa Pacheco, train operations manager [place] [employer] 11/06/22 12/06/22 Ecommerce Project Manager Relationship Specialty Start Date End Date Eileen Gutiérrez DO [address] [address] [place] [address] PCP - General 02 Ecommerce Project Manager Relationship Specialty Start Date End Date Eileen Gutiérrez DO [address] [address] [place] [address] PCP - General 02 Ecommerce Project Manager Relationship Specialty Start Date End Date Eileen Gutiérrez DO [address] [address] [place] [address] PCP - General 02 Ecommerce Project Manager Relationship Specialty Start Date End Date Eileen Gutiérrez DO [address] [address] [address] [place] [id number] PCP - General 02 [employer] Project Manager Relationship Specialty Start Date End Date Eileen Gutiérrez DO [address] [address] [place] [address] PCP - General 02 [employer] Project Manager Relationship Specialty Start Date End Date Eileen Gutiérrez DO [address] [address] [place] [address] PCP - General 02 [employer] Project Manager Relationship Specialty Start Date End Date Eileen Gutiérrez DO [address] [address] [place] [address] PCP - General 02 [employer] Project Manager Relationship Specialty Start Date End Date Eileen Gutiérrez DO [address] [address] [place] [address] PCP - General 02 [employer]commerce Project Manager Relationship Specialty Start Date End Date Eileen Gutiérrez DO [address] [address] [place] [address] PCP - General 02 Ecommerce Project Manager Relationship Specialty Start Date End Date Eileen Gutiérrez DO [address] [address] [place] [address] PCP - General 02 Scheduled Active and Recently Administ ered Medications (unrecognized section and content) Continuous Medication Order 10/23/2022 10/24/2022 10/25/2022 lactated ringers iv infusion 125 mL/hr, INTRAVENOUS, CONTINUOUS, Starting on Fri10/25/22 at 0930, Until 10/26/22 at 0303, Recovery or Phase I (only) 0930 (Rate Verify - Provider: Peyton Pederson RN) PRN Medication Order 10/23/2022 10/24/2022 10/25/2022 BUPivacaine HCl injection (SENSORCAINE) (CANCELED) X (OR/PROCEDURE) PRN, Starting on Fri10/25/22 at 0907, Until Fri10/25/22 at 0921, Intraprocedure 0907 (Given - Provid er: Clifford Valenzuela DPM) fentaNYL 50 mcg/mL 50 mcg injection (SUBLIMAZE) 50 mcg, INTRAVENOUS, EVERY 5 MINUTES NEEDED, 2 doses, Starting on Fri10/25/22 at 0918, Until 10/26/22 at 0303, FIRST LINE THERAPY for mild, moderate, or severe pain, Every 5 minutes. Use if patient unable to tolerate oral therapy. Hold for respiratory rate less than 12 Max total dose: 100 mcg, Recovery or Phase I (only) 0934 (Given - Provid er: Peyton Pederson RN) morphine 3 mg injection 3 mg, INTRAVENOUS, EVERY 10 MINUTES NEEDED, 5 doses, Starting on Fri10/25/22 at 0918, Until 10/26/22 at 0303, SECOND LINE THERAPY for mild, moderate, or severe pain, Every 10 minutes. Use if patient unable to tolerate oral therapy. Hold for respiratory rate less than 12 Max total dose: 12 mg, Recovery or Phase I (only) NaCl 0.9% irrigation bottle (CANCELED) X (OR/PROCEDURE) PRN, Starting on Fri10/25/22 at 0907, Until Fri10/25/22 at 0921, Intraprocedure 0907 (Given - Provid er: Clifford Valenzuela DPM) ondansetron (PF) 4 mg injection (ZOFRAN) 4 mg, INTRAVENOUS, NEEDED, 1 dose, Starting on Fri10/25/22 at 0918, Until 10/26/22 at 0303, Nausea/Vomiting - First Line - Parenteral, Give IV push over 2 minutes. If still nauseated 10 min after first line antiemetic dose, proceed to second line antiemetic, Recovery or Phase I (only) ondansetron (PF) 4 mg injection (ZOFRAN) 4 mg, INTRAVENOUS, NEEDED, 1 dose, Starting on Fri10/25/22 at 0918, Until 10/26/22 at 0303, Nausea/Vomiting - Second Line - Parenteral, Give IV push over 2 minutes., Recovery or Phase I (only) FOR RECORDS PERTAINING TO PATIENTS WHO ARE OR HAVE BEEN ENROLLED IN A CHEMICAL DEPENDENCY/SUBSTANCEABUSE PROGRAM, SOME INFORMATION MAY BE OMITTED. This clinical summary was aggregated from multiple sources. Caution should be exercised in using it in the provision of clinical care. This summary normalizes information from multiple sources, and as a consequence, information in this document may materially change the coding, format and clinical context of patient data. In addition, data may be omitted in some cases. CLINICAL DECISIONS SHOULD BE BASED ON THE PRIMARY CLINICAL RECORDS. [facility]. provides no warranty or guarantee of the accuracy or completeness of information in this document.
[2023-08-27] MEDS: KCL 40mEq in 0.9% NS 40 MEQ/1,000 ML IV.SOLN 250 MEQ IV (22:40)
[2023-08-27 22:53] LABS: Lipase 38 U/L (13-75)
[2023-08-27 23:40] VITALS: BP 101/62; PULSE 79
[2023-08-27] MEDS: Acetaminophen 325 MG Tablet 650 MG PO (23:48)
[2023-08-28 02:49] VITALS: BP 101/73; PULSE 82; RESP 22; TEMP 36.5; TEMP 36.6; O2SAT 95
== END 2023-08-28 02:51 | disposition home or self-care (01) ==
PROVIDERS: Emergency Provider Emergency Medicine; PCP Family Medicine; Visit Provider Emergency Medicine
DX: R10.11 Right upper quadrant pain (principal); E87.6 Hypokalemia; K59.00 Constipation, unspecified; R11.2 Nausea with vomiting, unspecified; K21.9 Gastro-esophageal reflux disease without esophagitis
CPT/HCPCS: 74177; 80053; 81001; 83690; 84703; 85025; 96365; 96366; 96375; 99283; J7030; Q9967; A4216; J2405

== ENCOUNTER → 2023-09-01 | Outpatient (CLI) | payer OTHER, SELFPAY ==
--- OUTSIDE RECORDS SUMMARY | 2023-09-01 08:47 | XMS RPT_ITS | CCD ---
Author Name Unknown Address [address] [place] [address] Organization [facility] Care Team Providers Care Legal Word Processor Name Role Phone TOMER PIÑA K Unavailable [...] CHERELLE Unavailable Unavailable Albert Hilario MD Unavailable Eilene Gutiérrez DO Primary Care Provider [phone] Eileen Gutiérrez DO Primary Care Provider Eileen Gutiérrez DO Primary Care Provider [phone] EILEEN GUTIÉRREZ Primary Care Unavailable SHYANNE MUÑOZ Referring Unavailable BERTHA REID Attending Unavailable JONATHAN FRANKLIN Consulting Unavailable HAILEY MITCHELL Attending Unavailable CHIQUITA STAHL Admitting Unavailable [...] reactions to drug (disorder) 03-28-20 07 Swelling [facility] Repository (1 source) Midazolam; Translations: [MIDAZOLAM] Drug Allergy 04-06-20 15 AOF [facility] Repository (20 sources) Penicillins; Translations: [PENICILLINS] Propensity to adverse reactions to drug (disorder) 07-23-19 06 Rash [facility] Repository (1 source) House dust mite; Translations: [DUST MITES] allergy to substance 02-03-20 [facility] Work Phone: (1 source) [place] [facility] drug allergy 02-03-20 19 [facility] Work Phone: (1 source) Midazolam Drug Allergy 02-03-20 19 [facility] Work Phone: (4 sources) Midazolam; Translations: [MIDAZOLAM HCL] Drug Allergy 02-03-20 12 change in mental status [facility] Work Phone: (1 source) Mold Extract; Translations: [MOLD] Drug Allergy 02-03-20 19 [facility] Work Phone: (1 source) Penicillin Drug Allergy 03-14-20 15 hives [facility] Work Phone: (1 source) PLANT POLLENS; Translations: [PLANT POLLENS] allergy to substance 02-03-20 [facility] Work Phone: (20 sources) cefdinir; Translations: [CEFDINIR] Drug Allergy 08-31-19 21 Swelling [facility] (20 sources) Midazolam Drug Allergy 02-03-20 12 Mental Status Change [facility] (20 sources) Wheat gluten extract; Translations: [GLUTEN] Drug Allergy 04-12-20 20 GI Upset [facility] (20 sources) Acetaminophen / HYDROcodone; Translations: [HYDROCODONE-ACET AMINOPHEN] Drug Allergy 05-29-20 22 Swelling [facility] (20 sources) Prochlorperazine; Translations: [PROCHLORPERAZINE ] Drug Allergy 11-05-19 23 Intolerance [facility] Medications Current Medications Medication Drug Class(es) [...] 157.5 cm Clifford Nicolas DPM Work Phone: [facility] 05-23-2023 14:41-0500 Body weight 52.16 kg Clifford Nicolas DPM Work Phone: [facility] 05-23-2023 14:41-0500 Respiratory rate 20 /min Clifford Nicolas DPM Work Phone: [facility] 04-30-2023 09:58-0400 Body height 157.5 cm Clifford Nicolas DPM Work Phone: [facility] 04-30-2023 09:58-0400 Body weight 52.16 kg Clifford Nicolas DPM Work Phone: [facility] 04-30-2023 09:58-0400 Respiratory rate 18 /min Clifford Nicolas DPM Work Phone: [facility] 01-15-2023 08:14-0400 Body height 157.5 cm Clifford Nicolas DPM Work Phone: [facility] 01-15-2023 08:14-0400 Body weight 52.16 kg Clifford Nicolas DPM Work Phone: [facility] 01-15-2023 08:14-0400 Respiratory rate 16 /min Clifford Nicolas DPM Work Phone: [facility] 12-04-2022 08:42-0400 Body height 157.5 cm Clifford Nicolas DPM Work Phone: [facility] 12-04-2022 08:42-0400 Body weight 52.16 kg Clifford Nicolas DPM Work Phone: [facility] 12-04-2022 08:42-0400 Respiratory rate 16 /min Clifford Nicolas DPM Work Phone: [facility] 11-28-2022 07:45-0400 Body temperature 97.59 [degF] Gurdeep Christine MD Work Phone: [facility] 11-28-2022 07:45-0400 Body weight 52.28 kg Gurdeep Christine MD Work Phone: [facility] 11-28-2022 07:45-0400 Heart rate 70 /min Gurdeep Christine MD Work Phone: [facility] 11-28-2022 07:45-0400 Respiratory rate 18 /min Gurdeep Christine MD Work Phone: [facility] 10-25-2022 10:45-0400 Body temperature 97.3 [degF] Clifford Nicolas DPM Work Phone: [facility] 10-25-2022 10:45-0400 Diastolic blood pressure 75 mm[Hg] Clifford Nicolas DPM Work Phone: [facility] 10-25-2022 10:45-0400 Heart rate 79 /min Clifford Nicolas DPM Work Phone: [facility] 10-25-2022 10:45-0400 Respiratory rate 23 /min Clifford Nicolas DPM Work Phone: [facility] 10-25-2022 10:45-0400 SaO2% (BldA) [Mass fraction] 100 % Clifford Nicolas DPM Work Phone: [facility] 10-25-2022 10:45-0400 Systolic blood pressure 111 mm[Hg] Clifford Nicolas DPM Work Phone: [facility] 10-25-2022 07:12-0400 Body height 157.5 cm Clifford Nicolas DPM Work Phone: [facility] 10-25-2022 07:12-0400 Body weight 54.43 kg Clifford Nicolas DPM Work Phone: [facility] 10-18-2022 09:36-0400 Body height 157.5 cm Pst 1 [facility] 10-18-2022 09:36-0400 Body temperature 98.8 [degF] Pst 1 [facility] 10-18-2022 09:36-0400 Body weight 54.43 kg Pst 1 [facility] 10-18-2022 09:36-0400 Diastolic blood pressure 82 mm[Hg] Pst 1 [facility] 10-18-2022 09:36-0400 Heart rate 87 /min Pst 1 [facility] 10-18-2022 09:36-0400 Respiratory rate 18 /min Pst 1 [facility] 10-18-2022 09:36-0400 SaO2% (BldA) [Mass fraction] 100 % Pst 1 [facility] 10-18-2022 09:36-0400 Systolic blood pressure 114 mm[Hg] Pst 1 [facility] 09-04-2022 08:12-0500 Body height 157.5 cm Clifford Nicolas DPM Work Phone: [facility] 09-04-2022 08:12-0500 Body weight 55.34 kg Clifford Nicolas DPM Work Phone: [facility] 09-04-2022 08:12-0500 Respiratory rate 20 /min Clifford Nicolas DPM Work Phone: [facility] 08-09-2022 14:41-0500 Body height 157.5 cm Clifford Nicolas DPM Work Phone: [facility] 08-09-2022 14:41-0500 Body weight 54.43 kg Clifford Nicolas DPM Work Phone: [facility] 08-09-2022 14:41-0500 Respiratory rate 18 /min Clifford Nicolas DPM Work Phone: [facility] 07-18-2022 08:51-0500 Body height 157.5 cm Clifford Nicolas DPM Work Phone: [facility] 07-18-2022 08:51-0500 Body temperature 98.2 [degF] Clifford Nicolas DPM Work Phone: [facility] 07-18-2022 08:51-0500 Body weight 54.43 kg Clifford Nicolas DPM Work Phone: [facility] 06-05-2022 09:20-0500 Body height 157.5 cm Clifford Nicolas DPM Work Phone: [facility] 06-05-2022 09:20-0500 Body weight 53.52 kg Clifford Nicolas DPM Work Phone: [facility] 06-05-2022 09:20-0500 Respiratory rate 20 /min Clifford Nicolas DPM Work Phone: [facility] 02-11-2022 10:17-0400 Body temperature 98.01 [degF] Zari Noblesericsofiya WEB WORKER.TECHNOLOGY INFUSION SPECIALIST Work Phone: [facility] 02-11-2022 10:17-0400 Diastolic blood pressure 81 mm[Hg] Zari Nobleserich WEB WORKER.TECHNOLOGY INFUSION SPECIALIST Work Phone: [facility] 02-11-2022 10:17-0400 Heart rate 75 /min Zari Diederich WEB WORKER.TECHNOLOGY INFUSION SPECIALIST Work Phone: [facility] 02-11-2022 10:17-0400 Respiratory rate 16 /min Zaripatrick Nobleserich WEB WORKER.TECHNOLOGY INFUSION SPECIALIST Work Phone: [facility] 02-11-2022 10:17-0400 SaO2% (BldA) [Mass fraction] 97 % Zari Hager WEB WORKER.TECHNOLOGY INFUSION SPECIALIST Work Phone: [facility] 02-11-2022 10:17-0400 Systolic blood pressure 117 mm[Hg] Zari Hager WEB WORKER.TECHNOLOGY INFUSION SPECIALIST Work Phone: [facility] 11-26-2021 08:45-0400 Body mass index (BMI) [Percentile] Per age and sex 62.13 % Yahaira Arnulfo WEB WORKER.TECHNOLOGY INFUSION SPECIALIST Work Phone: [facility] 11-26-2021 08:45-0400 Body temperature 98.6 [degF] Yahaira Arnulfo WEB WORKER.TECHNOLOGY INFUSION SPECIALIST Work Phone: [facility] 11-26-2021 08:45-0400 Body weight 54.43 kg Yahaira Arnulfo WEB WORKER.TECHNOLOGY INFUSION SPECIALIST Work Phone: [facility] 11-26-2021 08:45-0400 Diastolic blood pressure 62 mm[Hg] Yahaira Arnulfo WEB WORKER.TECHNOLOGY INFUSION SPECIALIST Work Phone: [facility] 11-26-2021 08:45-0400 Heart rate 106 /min Yahaira Arnulfo WEB WORKER.TECHNOLOGY INFUSION SPECIALIST Work Phone: [facility] 11-26-2021 08:45-0400 Respiratory rate 16 /min Yahaira Arnulfo WEB WORKER.TECHNOLOGY INFUSION SPECIALIST Work Phone: [facility] 11-26-2021 08:45-0400 SaO2% (BldA) [Mass fraction] 99 % Yahaira Arnulfo WEB WORKER.TECHNOLOGY INFUSION SPECIALIST Work Phone: [facility] 11-26-2021 08:45-0400 Systolic blood pressure 102 mm[Hg] Yahaira Arnulfo WEB WORKER.TECHNOLOGY INFUSION SPECIALIST Work Phone: [facility] 10-09-2021 15:07-0400 Body height 154.9 cm Clifford ALMONTE Work Phone: [facility] 10-09-2021 15:07-0400 Body mass index (BMI) [Percentile] Per age and sex 58.61 % Clifford Valenzuela DPM Work Phone: [facility] 10-09-2021 15:07-0400 Body weight 53.52 kg Clifford Valenzuela DPM Work Phone: [facility] 10-09-2021 15:07-0400 Respiratory rate 17 /min Clifford Valenzuela DPM Work Phone: [facility] 10-01-2021 09:29-0400 Body height 157 cm Beckie Juarez WEB WORKER.TECHNOLOGY INFUSION SPECIALIST Work Phone: [facility] 10-01-2021 09:29-0400 Body mass index (BMI) [Percentile] Per age and sex 53.08 % Beckie Juarez WEB WORKER.TECHNOLOGY INFUSION SPECIALIST Work Phone: [facility] 10-01-2021 09:29-0400 Body temperature 98.2 [degF] Beckie Juarez WEB WORKER.TECHNOLOGY INFUSION SPECIALIST Work Phone: [facility] 10-01-2021 09:29-0400 Body weight 53.75 kg Beckie Juarez WEB WORKER.TECHNOLOGY INFUSION SPECIALIST Work Phone: [facility] 10-01-2021 09:29-0400 Diastolic blood pressure 76 mm[Hg] Beckie Juarez WEB WORKER.TECHNOLOGY INFUSION SPECIALIST Work Phone: [facility] 10-01-2021 09:29-0400 Heart rate 76 /min Beckie Juarez WEB WORKER.TECHNOLOGY INFUSION SPECIALIST Work Phone: [facility] 10-01-2021 09:29-0400 Respiratory rate 16 /min Beckie Juarez WEB WORKER.TECHNOLOGY INFUSION SPECIALIST Work Phone: [facility] 10-01-2021 09:29-0400 Systolic blood pressure 102 mm[Hg] Beckie Juarez WEB WORKER.TECHNOLOGY INFUSION SPECIALIST Work Phone: [facility] NEGATED: Highlighted [id number] 13:39-0400 BMI (Body Mass Index) 23.86 kg/m2 [facility] [place] [facility] Work Phone: NEGATED: Highlighted [id number] 13:39-0400 Body weight 58.97 kg [facility] Work Phone: NEGATED: Highlighted [id number] 13:39-0400 Body weight 59 kg [facility] Work Phone: NEGATED: Highlighted [id number] 13:39-0400 BP Diastolic 80 mm[Hg] [facility] Work Phone: NEGATED: Highlighted [id number] 13:39-0400 BP Systolic 118 mm[Hg] [facility] Work Phone: NEGATED: Highlighted [id number] 13:39-0400 Heart rate 2+ [facility] Work Phone: NEGATED: Highlighted [id number] 13:39-0400 Height 157.48 cm [facility] Work Phone: NEGATED: Highlighted [id number] 13:39-0400 Height 157 cm [facility] Work Phone: NEGATED: Highlighted [id number] 13:39-0400 Pulse (Heart Rate) 80 /min [facility] Work Phone: Encounters Encounter Date Encounter Type Care Provider Facility Start: 06-24-2023 ambulatory Zoran MEZA.TECHNOLOGY INFUSION SPECIALIST Work Phone: [facility] Start: 06-24-2023 Follow-up encounter Zoran Medina on WEB WORKER.TECHNOLOGY INFUSION SPECIALIST Work Phone: Neurology Procedures Date Procedure Procedure [...] 02-09-2022 Adult depression screening assessment Zari Hager WEB WORKER.TECHNOLOGY INFUSION SPECIALIST Work Phone: Start: 12-30-2021 Adult depression screening assessment Eileen Boswelle Work Phone: Start: 10-08-2021 Skin test tuberculos is intradermal Alannah Guthrie MD Work Phone: Start: 10-01-2021 Skin test tuberculos is intradermal Beckie Juarez WEB WORKER.TECHNOLOGY INFUSION SPECIALIST Work Phone: Start: 10-01-2021 Adult depression screening assessment Beckie Juarez WEB WORKER.TECHNOLOGY INFUSION SPECIALIST Work Phone: Start: 09-12-2020 Adult depression screening assessment Clifford Nicolas DPM Work Phone: Start: 02-05-2019 End: 02-05-2019 Adolescent tobacco screening was negative - non user Albert Hilario MD Work Phone: NEGATED: Highlighted rowStart: 02-05-2019 End: 02-05-2019 Documentation of current medications [facility] Plan of Treatment Date Care Activity Detail Author Start: 01-20-2025 Urine microalbumin profile [facility] Start: 11-29-2023 ANNUAL PCP TEAM RIDES SUPERVISOR FROYLAN DISEASE VISIT ANNUAL PCP TEAM CHRONIC DISEASE VISIT [facility] Start: 11-21-2023 ASTHMA ACTION PLAN ASTHMA ACTION BIENVENIDO N [facility] Start: 11-01-2023 ANNUAL PCP TEAM RIDES SUPERVISOR FROYLAN DISEASE VISIT ANNUAL PCP TEAM CHRONIC DISEASE VISIT [facility] Start: 08-29-2023 ANNUAL PCP TEAM RIDES SUPERVISOR FROYLAN DISEASE VISIT ANNUAL PCP TEAM CHRONIC DISEASE VISIT [facility] Start: 03-25-2023 ANNUAL PCP TEAM RIDES SUPERVISOR FROYLAN DISEASE VISIT ANNUAL PCP TEAM CHRONIC DISEASE VISIT [facility] Start: 03-07-2023 Covid-19 Vaccine ( season) Covid-19 Vaccine ( season) [facility] Start: 03-07-2023 Influenza vaccination INFLUENZA (#1) [facility] Start: 02-09-2023 Adult depression screening assessment DEPRESSION SCREENING [facility] Start: 12-30-2022 Adult depression screening assessment DEPRESSION SCREENING [facility] Start: 10-10-2022 ANNUAL PCP TEAM RIDES SUPERVISOR FROYLAN DISEASE VISIT ANNUAL PCP TEAM CHRONIC DISEASE VISIT [facility] Start: 10-08-2022 ANNUAL PCP TEAM RIDES SUPERVISOR FROYLAN DISEASE VISIT ANNUAL PCP TEAM CHRONIC DISEASE VISIT [facility] Start: 10-03-2022 ANNUAL PCP TEAM RIDES SUPERVISOR FROYLAN DISEASE VISIT ANNUAL PCP TEAM CHRONIC DISEASE VISIT [facility] Start: 10-01-2022 Adult depression screening assessment DEPRESSION SCREENING [facility] Start: 10-01-2022 ANNUAL PCP TEAM RIDES SUPERVISOR FROYLAN DISEASE VISIT ANNUAL PCP TEAM CHRONIC DISEASE VISIT [facility] Start: 10-01-2022 ASTHMA CONTROL TEST ASTHMA CONTROL T EST [facility] Start: 08-27-2022 ANNUAL PCP TEAM RIDES SUPERVISOR FROYLAN DISEASE VISIT ANNUAL PCP TEAM CHRONIC DISEASE VISIT [facility] Start: 07-07-2022 DEPRESSION ASSESSMENT DEPRESSION ASS ESSMENT [facility] Start: 03-07-2022 Influenza vaccination INFLUENZA (#1) [facility] Start: 01-14-2022 End: 03-16-2022 aPTT in Platelet poor plasma by Coagulation assay [facility] Work Phone: Immunizations Immunization Date Immunization Notes Care Provider Sara lafleur 03-25-2022 influenza, injectabl e, quadrivalent, contains preservative Clifford Valenzuela DPGabrielle Work Phone: [facility] 05-12-2021 influenza, injectabl e, quadrivalent, contains preservative Clifford Valenzuela DPM Work Phone: [facility] 10-21-2020 COVID-19 vaccine, ag e 12+ yr ([employer]erm[employer] App - [facility]) Clifford Valenzuela DPGabrielle Work Phone: [facility] 09-30-2020 COVID-19 vaccine, ag e 12+ yr (P[employer]ER[employer]ION[employer]alcon App - [employer]) Clifford Valenzuela DPM Work Phone: [facility] 08-19-2020 varicella virus vaccine Edie Juarez WEB WORKER.TECHNOLOGY INFUSION SPECIALIST Work Phone: [facility] 05-19-2020 influenza, injectabl e, quadrivalent, contains preservative Clifford Valenzuela DPM Work Phone: [facility] Work Phone: 01-19-2020 meningococcal polysaccharide (groups A, C, Y and W-135) diphtheria toxoid conjugate vaccine (MCV4P) Clifford Valenzuela DPM Work Phone: [facility] 05-27-2019 influenza, injectabl e, quadrivalent, contains preservative Clifford Valenzuela DPM Work Phone: [facility] Work Phone: 05-28-2016 meningococcal polysaccharide (groups A, C, Y and W-135) diphtheria toxoid conjugate vaccine (MCV4P) Clifford Valenzuela DPM Work Phone: [facility] 04-30-2016 influenza, injectabl e, quadrivalent, contains preservative Clifford Valenzuela DPM Work Phone: [facility] Work Phone: 01-20-2015 tetanus toxoid, redu odilon diphtheria toxoid, and acellular pertussis vaccine, adsorbed Clifford Valenzuela DPM Work Phone: [facility] Work Phone: 05-04-2014 influenza, seasonal, injectable Clifford Valenzuela DPM Work Phone: [facility] 05-16-2012 influenza virus vacc ine, unspecified formulation Clifford Valenzuela DPM Work Phone: [facility] 04-06-2011 influenza virus vacc ine, unspecified formulation Clifford Valenzuela DPM Work Phone: [facility] 05-12-2010 influenza virus vacc ine, unspecified formulation Clifford Valenzuela DPM Work Phone: [facility] 04-08-2009 influenza virus vacc ine, unspecified formulation Clifford Valenzuela DPM Work Phone: [facility] Work Phone: 05-11-2008 influenza virus vacc ine, unspecified formulation Clifford Valenzuela DPM Work Phone: [facility] Work Phone: 09-23-2007 diphtheria, tetanus toxoids and acellular pertussis vaccine Clifford Valenzuela DPM Work Phone: [facility] Work Phone: 09-23-2007 measles, mumps and rubella virus vaccine Clifford Valenzuela DPM Work Phone: [facility] Work Phone: 09-23-2007 poliovirus vaccine, inactivated Clifford Valenzuela DPM Work Phone: [facility] Work Phone: 05-06-2007 influenza virus vacc ine, unspecified formulation Clifford Valenzuela DPM Work Phone: [facility] Work Phone: 05-08-2006 influenza virus vacc ine, unspecified formulation Clifford Valenzuela DPM Work Phone: [facility] Work Phone: 04-12-2004 pneumococcal conjuga te vaccine, 7 valent Clifford Valenzuela DPM Work Phone: [facility] Work Phone: 12-09-2003 diphtheria, tetanus toxoids and acellular pertussis vaccine Clifford Valenzuela DPM Work Phone: [facility] Work Phone: 12-09-2003 varicella virus vaccine Canelo guerrero Nicolas DPM Work Phone: [facility] Work Phone: 09-07-2003 haemophilus influenz ae type b vaccine, HbOC conjugate Clifford Valenzuela DPM Work Phone: [facility] Work Phone: 09-07-2003 measles, mumps and rubella virus vaccine Clifford Valenzuela DPM Work Phone: [facility] Work Phone: 06-14-2003 hepatitis B vaccine, pediatric or pediatric/adolescent dosage Clifford Valenzuela DPM Work Phone: [facility] Work Phone: 06-01-2003 influenza virus vacc ine, unspecified formulation Clifford Valenzuela DPM Work Phone: [facility] Work Phone: 05-02-2003 influenza virus vacc ine, unspecified formulation Clifford Valenzuela DPM Work Phone: [facility] Work Phone: 03-10-2003 diphtheria, tetanus toxoids and acellular pertussis vaccine Clifford Valenzuela DPM Work Phone: [facility] Work Phone: 03-10-2003 haemophilus influenz ae type b vaccine, HbOC conjugate Clifford Valenzuela DPM Work Phone: [facility] Work Phone: 03-10-2003 pneumococcal conjuga te vaccine, 7 valent Clifford Valenzuela DPM Work Phone: [facility] Work Phone: 03-10-2003 poliovirus vaccine, inactivated Clifford Valenzuela DPM Work Phone: [facility] Work Phone: 01-11-2003 diphtheria, tetanus toxoids and acellular pertussis vaccine Clifford Valenzuela DPM Work Phone: [facility] Work Phone: 01-11-2003 haemophilus influenz ae type b vaccine, HbOC conjugate Clifford Valenzuela DPM Work Phone: [facility] Work Phone: 01-11-2003 pneumococcal conjuga te vaccine, 7 valent Clifford Valenzuela DPM Work Phone: [facility] Work Phone: 01-11-2003 poliovirus vaccine, inactivated Clifford Valenzuela DPM Work Phone: [facility] Work Phone: 2002 diphtheria, tetanus toxoids and acellular pertussis vaccine Clifford Valenzuela DPM Work Phone: [facility] Work Phone: 2002 haemophilus influenz ae type b vaccine, HbOC conjugate Clifford Valenzuela DPM Work Phone: [facility] Work Phone: 2002 pneumococcal conjuga te vaccine, 7 valent Clifford Valenzuela DPM Work Phone: [facility] Work Phone: 2002 poliovirus vaccine, inactivated Clifford Valenzuela DPM Work Phone: [facility] Work Phone: 2002 hepatitis B vaccine, pediatric or pediatric/adolescent dosage Clifford Valenzuela DPM Work Phone: [facility] Work Phone: 2002 hepatitis B vaccine, pediatric or pediatric/adolescent dosage Clifford Valenzuela DPM Work Phone: [facility] Work Phone: Payers Date Payer Category Payer Private Health Insurance [id number] 2022 Private Health Insurance [id number] 2022 Private Health Insurance [id number] 2018 Unknown DEANDRE JIMENES PPO [id number] 2018-Present [phone] [facility] [id number] [place] [address] PPO [id number] 2011 Unknown [id number] 1977 Unknown [id number] 1977 Unknown [id number] 1977 Unknown [id number] 1977 Unknown [id number] 1977 Unknown [id number] 1976 Unknown [id number] 1976 Unknown [id number] 1976 Unknown [id number] 1976 Unknown [id number] Unknown [id number] Unknown [id number] Social History Date Type Detail Facility Start: 02-05-2019 End: 02-05-2019 Assertion Unknown if ever smoked [facility] [place] [facility] Work Phone: Start: 08-29-2022 Tobacco smoking stat [facility] Never smoked tobacco [facility] Start: 08-27-2021 End: 06-23-2023 Alcohol intake Current non-drinker of alcohol (finding) [facility] Start: 2002 Sex Assigned At Female C [facility] Start: 09-15-2021 End: 09-25-2021 Exposure to SARS-CoV-2 (event) Unable to assess [facility] Start: 10-01-2021 History SDOH Alcohol Frequency 1 [facility] Start: 10-01-2021 History SDOH Alcohol Std Drinks 98 [facility] Start: 10-01-2021 History SDOH Social Connections Phone 5 [facility] Start: 10-01-2021 History SDOH Social Connections Get Together 4 [facility] Start: 10-01-2021 History SDOH Social Connections Anabaptism 3 [facility] Start: 10-01-2021 History SDOH Social Connections Living 7 [facility] Start: 10-01-2021 History SDOH Physica l Activity MPS 6 [facility] Start: 10-01-2021 History SDOH Stress 2 [facility] Start: 09-21-2021 End: 06-05-2022 Exposure to SARS-CoV-2 (event) Not sure [facility] Start: 08-29-2022 Tobacco use and exposure Smokeless tobacco non-user [facility] Start: 10-01-2021 End: 11-06-2022 History of Social function [facility] Start: 10-01-2021 End: 11-06-2022 Social connection and isolation panel [facility] Do you belong to any clubs or organizations such as jew groups, unions, fraternal or athletic groups, or school groups? Yes [facility] Are you now , , , , never or living with a partner? Never [facility] How often to you hav e a drink containing alcohol? Never [facility] How many standard drinks containing alcohol do you have on a typical day? Patient refused [facility] Do you feel stress - tense, restless, nervous, or anxious, or unable to sleep at night because your mind is troubled all the time - these days [OSQ] Only a little [facility] (I/We) worried lizzy er (my/our) food would run out before (I/we) got money to buy more. Never true [facility] In the past 12 month s, was there a time when you were not able to pay the mortgage or rent on time? No [facility] Start: 05-10-2020 Gender identity Identifies as female gender (finding) [facility] Start: 05-10-2020 Sexual orientation Heterosexua l (finding) [facility] NEGATED: Highlighted rowStart: NINF History of tobacco use Passive smoker [facility] Medical Equipment Procedure Code Equipment Code Equipment Origin al Text Equipment Identifier Dates Mini Headless Sc rew 2.5mm X 40mm [id number] Start: 05-29-2022 Wire Abdullahi .035in 2 Trocar 5.5in Fixation - [id number] Start: 05-29-2022 Mini 2.5mm Heade d Cannulated Screw 40mm [id number] Start: 10-25-2022 Clinical Notes 04-24-2020 to 06-23-2023 Clifford Valenzuela Albert, RILEY - 05/25/2023 9:27 AM ESTPatient InstructionsGrClifford cunningham RILEY Price - 04/30/2023 11:16 AM Janina Baig LPN - 04/30/2023 10:23 AM EDT Note Date & Type Note Facility 06-23-2023 Note HNO ID: [id number] Author: Zoran Beasley APRN.TECHNOLOGY INFUSION SPECIALIST Service: ? Author Type: Nurse Practitioner Type: [...] she will note the headache returning. Her scanning manager is requesting [facility] paperwork be filled out for if [...] history includes Allergies (more content not included)... [facility] 05-25-2023 Note HNO ID: [id number] Author: Clifford Valenzuela DPM Service: ? Author [...] plan unless otherwise noted. Clifford Valenzuela DPM, [facility] 05-25-2023 History of Present illness Narrative CC: [...] at this time -Follow up as needed Anhtony Gomes DPM PGY-3 I personally saw and evaluated the patient. I reviewed the resident's note. I agree with the resident's assessment and plan unless otherwise noted. Clifford Valenzuela DPM, FACFAS documented in this encounter [facility] 04-30-2023 Note HNO ID: [id number] Author: Clifford Valenzuela DPM Service: ? Author [...] treatment options fo (more content not included)... [facility] 04-30-2023 Note HNO ID: [id number] Author: Janina Adams LPN Service: ? Author Type: LICENSED NURSE Type: Progress Notes Filed: 05/19/2023 7:39 PM Note Text: Prepared two 3 cc syringes each containing 2.5 cc Lidocaine and 2.5 cc Bupivacaine with 25 gauge needles and gave to MD for injection of bilateral feet - Janina Adams LPN [facility] 04-30-2023 Note HNO ID: [id number] Author: Kenzie Schaefer MA Service: ? Author Type: Clubhouse Attendant Type: Progress Notes Filed: 05/19/2023 7:39 PM [...] bleeding, clots, bleeding disorders. Kenzie Schaefer MA [facility] 04-30-2023 Instructions Cami Thrasher DPM - 04/30/2023 11:17 AM EDT Epsom salt soaks. Band aid and documented in this encounter [facility] 04-30-2023 History of Present illness Narrative [...] Valenzuela DPM Informed Consent Consent Obtained: Verbal [place] Protocol SIGN IN Personnel directly involved with [...] Valenzuela DPM Informed Consent Consent Obtained: Verbal [place] Protocol SIGN IN Personnel directly involved with [...] Kenzie Schaefer MA documented in this encounter [facility] 02-26-2023 Miscellaneous Notes Last OV: 12/03/2022 Last Refill: 08/22/2022 F/U OV: N/A Appropriate for refill. You did take this over in June 2020. Not sure why Dr. Gutiérrez ordered for her in Aug 2022. She did message in and request this. Routed to [place] for review. AZUL Rudd, RN, BA documented in this encounter [facility] 01-20-2023 Miscellaneous Notes Notified pt of message below, she verbalized understanding and denies any questions at this time. Refill was re-sent to [facility] Adenike Simmons MD Reason for Disposition Prescription refill request for a controlled substance (such as most ADHD meds or narcotics) Answer Assessment - Initial Assessment Questions Pt calling to request that her Concerta please be canceled at [facility] and resent to [facility] pharmacy in [place] instead. He medication is currently out of stock at [facility]. Protocols used: Medication Question [id number] Pt is currently due for refill of her Concerta. The script had been electronically sent to [facility] pharmacy but they do not have the medication in stock. Pt requesting script be cancelled at [facility] and resent to [facility] in [place]. Pharmacy preference updated. Routed to provider for review. Please advise. documented in this encounter [facility] 01-18-2023 Note HNO ID: [id number] Author: Clifford Valenzuela DPM Service: ? Author [...] plan unless otherwise noted. Clifford Valenzuela DPM, [facility] 01-18-2023 History of Present illness Narrative DOS: [...] Valenzuela DPM, FACFAS documented in this encounter [facility] 12-18-2022 Miscellaneous Notes Please review and assist. documented in this encounter [facility] 12-16-2022 Note HNO ID: [id number] Author: RT Antoinette(R) Service: ? Author Type: Derrick Helper Type: Progress Notes Filed: 12/16/2022 4:34 PM [...] RT Antoinette(R) December 16, 2022 4:[address] [facility] 12-16-2022 History of Present illness Narrative Radiology [...] 2022 4:34 PM documented in this encounter [facility] 12-11-2022 Note HNO ID: [id number] Author: Vanna Aleman MD Service: ? Author Type: Physician Type: Progress Notes Filed: 12/11/2022 8:28 AM Note Text: [facility] Department of Dermatology VIRTUAL VISIT PROGRESS NOTE This is a virtual visit. It required patient-provider interaction for the medical decision making as documented below. This visit was completed via [employer]. Discussed with patient limitations of virtual software with assessment of skin disease/lesions. Pt acknowledged and consented to visit. Chief Complaint: rash Date of last visit to [facility] Dermatology: new patient History of Present [...] Skin exam normal with the exception of: [place] skin colored papules around nose and [...] condition or if any new/changing/symptomatic lesions arise. Research Microbiologist Attestation: The documentation for this note was completed by Lou Chowdary Ma acting as scribe for Vanna Aleman MD. December 10, 2022 4:46 PM. I have communicated my name and active licensure. The patient's identity and physical location were verified at the time of this visit. Either the patient or their legal primary care sales representative has been informed of the risks and benefits of -- and alternatives to -- treatment through a remote evaluation and consents to proceed with the evaluation remotely. I agree with the Chief Complaint, ROS, and Past Histories independently gathered by the clinical developer support engineer and the remaining scribed note accurately describes my personal service to the patient. Vanna Aleman MD [facility] 12-11-2022 History of Present illness Narrative [facility] Department of Dermatology VIRTUAL VISIT PROGRESS NOTE This is a virtual visit. It required patient-provider interaction for the medical decision making as documented below. This visit was completed via [employer]. Discussed with patient limitations of virtual software with assessment of skin disease/lesions. Pt acknowledged and consented to visit. Chief Complaint: rash Date of last visit to [facility] Dermatology: new patient History of Present [...] Skin exam normal with the exception of: [place] skin colored papules around nose and [...] condition or if any new/changing/symptomatic lesions arise. Research Microbiologist Attestation: The documentation for this note was completed by Lou Chowdary Ma acting as scribe for Vanna Aleman MD. December 10, 2022 4:46 PM. I have communicated my name and active licensure. The patient's identity and physical location were verified at the time of this visit. Either the patient or their legal primary care sales representative has been informed of the risks and benefits of -- and alternatives to -- treatment through a remote evaluation and consents to proceed with the evaluation remotely. I agree with the Chief Complaint, ROS, and Past Histories independently gathered by the clinical developer support engineer and the remaining scribed note accurately describes my personal service to the patient. Vanna Alemna MD documented in this encounter [facility] 12-04-2022 Note HNO ID: [id number] Author: Clifford Valenzuela DPM Service: ? Author [...] plan unless otherwise noted. Clifford Valenzuela DPM, [facility] 12-04-2022 History of Present illness Narrative DOS: [...] Valenzuela DPM, FACFAS documented in this encounter [facility] 12-03-2022 Note HNO ID: [id number] Author: Zoran Beasley APRN.TECHNOLOGY INFUSION SPECIALIST Service: ? Author Type: Nurse Practitioner Type: [...] visit. Either the patient or their legal primary care sales representative has been informed of the [...] which included preparing to see the patient, [id number] patient care, completing clinical documentation, obtaining and/or reviewing separately obtained history, and counseling and educating the patient/family/caregiver. (more content not included)... [facility] 11-28-2022 Note HNO ID: [id number] Author: Gurdeep Christine MD Service: ? Author [...] CREAM recheck 2 weeks Gurdeep Christine MD [facility] 11-28-2022 History of Present illness Narrative Chief [...] Gurdeep Christine MD documented in this encounter [facility] 11-20-2022 Note HNO ID: [id number] Author: Eileen Gutiérrez, DO Service: ? Author Type: Physician Type: Progress Notes Filed: 11/20/2022 10:08 AM Note Text: 22 year old here for hospital follow up for mid-epigastric abdominal pain. Pain has definitely decreased but is still present. Stooling 2-3 times daily with miralax every 2-3 days Taking protonix 40 mg. Getting MRI abdomen in December. Followed by GI in [place]( outside of [facility]). Does belch a lot, [...] continue Concerta 18 mg Eileen Gutiérrez DO [facility] 11-07-2022 Note HNO ID: [id number] Author: Clifford Valenzuela DPM Service: ? Author [...] unless otherwise noted. Clifford Valenzuela DPM, FACFAS [facility] 11-04-2022 Note HNO ID: [id number] Author: Hailey Mitchell MD Service: Hospital Medicine Author Type: Physician Type: Progress Notes Filed: 11/04/2022 2:28 PM Note Text: DEPARTMENT OF HOSPITAL MEDICINE PROGRESS NOTE SERVICE DATE: 11/04/2022 SERVICE TIME: 2:25 PM Hospital Medicine/Primary Attending: Hailey Mitchell MD NIGHT AND WEEKEND COVERAGE: PERKINS COVERAGE: Days: [phone], please page attending physician. Nights: [phone], please page [place] Hospitalist Night coverage pager [phone]. Subjective INTERVAL HPI: Patient was seen and [...] -- -- 1.0 HGBB -- -- 15.3 [id number] -- -- RA=Room Air < > = [...] results for in (more content not included)... [facility] 11-03-2022 Note HNO ID: [id number] Author: Hailey Mitchell MD Service: Hospital Medicine Author Type: Physician Type: Progress Notes Filed: 11/03/2022 3:16 PM Note Text: DEPARTMENT OF HOSPITAL MEDICINE PROGRESS NOTE SERVICE DATE: 11/03/2022 SERVICE TIME: 3:12 PM Hospital Medicine/Primary Attending: Hailey Mitchell MD NIGHT AND WEEKEND COVERAGE: PERKINS COVERAGE: Days: [phone], please page attending physician. Nights: [phone], please page [place] Hospitalist Night coverage pager [phone]. Subjective INTERVAL HPI: Patient was seen and [...] -- -- 1.0 HGBB -- -- 15.3 [id number] -- -- RA=Room Air < > = [...] UAMPH, UTHC, UOP (more content not included)... [facility] documented as of this encounter (statuses as of 11/09/2022) [facility]04-30-2023 History of Past illness Narrative* Problem [...] of this encounter (statuses as of 11/18/2022) [facility] History of Past illness Narrative* Problem [...] of this encounter (statuses as of 12/04/2022) [facility] History of Past illness Narrative* Problem [...] of this encounter (statuses as of 12/05/2022) [facility] History of Past illness Narrative* Problem [...] of this encounter (statuses as of 12/09/2022) [facility] History of Past illness Narrative* Problem [...] of this encounter (statuses as of 12/11/2022) [facility] History of Past illness Narrative* Problem [...] of this encounter (statuses as of 12/19/2022) [facility] of Past illness Narrative* Problem [...] of this encounter (statuses as of 01/18/2023) [facility] History of Past illness Narrative* Problem [...] of this encounter (statuses as of 01/20/2023) [facility] Past [facility] Narrative* Problem [...] of this encounter (statuses as of 02/05/2023) [facility] History of Past illness Narrative* Problem [...] of this encounter (statuses as of 02/27/2023) [facility] History of Past illness Narrative* Problem [...] of this encounter (statuses as of 02/27/2023) [facility] History of Past illness Narrative* Problem [...] of this encounter (statuses as of 05/11/2023) [facility] History of Past illness Narrative* Problem [...] of this encounter (statuses as of 05/20/2023) [facility] History of Past illness Narrative* Problem [...] of this encounter (statuses as of 06/11/2023) [facility] History of Past illness Narrative* Problem [...] of this encounter (statuses as of 06/26/2023) [facility]04-29-2023 NoteHNO ID: [id number] Author: Hailey Mitchell MD Service: Hospital Medicine Author Type: Physician Type: Progress Notes Filed: 11/02/2022 5:08 PM Note Text: DEPARTMENT OF HOSPITAL MEDICINE PROGRESS NOTE SERVICE DATE: 11/02/2022 SERVICE TIME: 5:03 PM Hospital Medicine/Primary Attending: Hailey Mitchell MD NIGHT AND WEEKEND COVERAGE: PERKINS COVERAGE: Days: [phone], please page attending physician. Nights: [phone], please page [place] Hospitalist Night coverage pager [phone]. Subjective INTERVAL HPI: Patient was seen and [...] -- -- 1.0 HGBB -- -- 15.3 [id number] -- -- RA=Room Air < > = [...] CSFPROT, CSFGLUC, CSFSR, CSFSTF (more content not included)...[id number] NoteHNO ID: [id number] Author: Jesus Gee MD Service: Hospital Medicine [...] clot prevention: low risk SIGNATURE: Jesus Gee, [id number] History of Past illness Narrative* Problem Noted [...] of this encounter (statuses as of 11/05/2022) [facility]04-27-2023 NoteHNO ID: [id number] Author: Rosales Sanders APRN.TECHNOLOGY INFUSION SPECIALIST Service: ? Author Type: Nurse Practitioner Type: [...] % 43.7 MCV 80.0 (more content not included)...[facility]04-21-2023 History of Past illness Narrative* Problem Noted [...] of this encounter (statuses as of 10/26/2022) [facility]04-21-2023 NoteHNO ID: [id number] Author: Peyton Pederson RN Service: Nursing Author Type: Registered Nurse Type: Nursing Progress Note Filed: 10/25/2022 9:44 AM Note Text: Xrays done right foot.[facility]04-21-2023 NoteHNO ID: [id number] Author: Arslan Bui APRN.CRNA Service: Nursing Author Type: Nurse Turkey Egg Gatherer Type: Anesthesia Procedure Notes Filed: 10/25/2022 8:23 AM Note Text: ANESTHESIOLOGY PROCEDURE NOTE Airway General Information Procedure Start Time/Medication Administration: 10/25/2022 8:14 AM Patient location during procedure: OR Timeout Performed Pre-procedure: timeout performed Consent Obtained: Yes Patient 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 Staffing DATA CONTROL CLERK SUPERVISOR: Arslan Bui APRN.DATA CONTROL CLERK SUPERVISOR Performed by: SONDRA Indications and Patient Condition [...] October 25, 2022 TIME: 8:23 AM CSN: [id number] [facility] Hospital04-21-2023 Miscellaneous Notes* Allied Health - [...] (Walker, Cane, Wheelchair, Crutches, etc.)? [facility] GENDER DATA: Female. status: : No status: NO. PATIENT RELEVANT IMPLANT DATA REVIEWED: Not Applicable RADIOLOGY DEPARTMENT: General X-ray: Exam(s) Completed: Lower Extremity X- Ray(s): Foot, Right PERIPHERAL IV DATA: Not applicable SIGNED BY: RT Bhupendra(R) October 25, 2022 9:52 AM documented in [facility] Nurse Note* Peyton Pederson RN - 10/25/2022 9:44 AM EDT Xrays done right foot. documented in this encounterS[facility]04-[facility]-2023 History and physical note * Clifford [...] 9:03 AM Source Note - Sahara Barrett APRN.TECHNOLOGY INFUSION SPECIALIST - 10/18/2022 9:20 AM EDT HISTORY AND [...] or any previous visit (from the past 09306 hour(s)). Assessment Patient has the following medical [...] well with Propofol. Had surgery 05/2022 at [facility] and had no significant anesthesia events. [...] which included preparing to see the patient, [id number] patient care, completing clinical documentation, obtaining and/or [...] 1:39 PM PAGER/CONTACT #: documented in [facility]04[facility]14-[facility]23 History and physical note * Sahara [...] or any previous visit (from the past 16234 hour(s)). Assessment Patient has the following medical [...] well with Propofol. Had surgery 05/2022 at [facility] and had no significant anesthesia events. [...] which included preparing to see the patient, [id number] patient care, completing clinical documentation, obtaining and/or [...] 1:39 PM PAGER/CONTACT #: documented in this encounterS[facility]04-11-2023 Instructions* Patient Instructions* Sahara Barrett APRN.CNP - 10/15/2022 1:47 PM EDT PATIENT PREOPERATIVE INSTRUCTIONS Your surgeon has scheduled for your procedure at this surgery center: [facility]: [phone], [address], [place] [address] Please enter through the main entrance and [...] Friday, call the Friday before. Your surgeon's manager stars will tell you what time to call [...] surgery. - YOU MUST HAVE A RESPONSIBLE REGISTERED NURSE FLOAT POOL TAKE YOU HOME. A SHERIFF'S OFFICER, CAB OR UBER REGISTERED NURSE FLOAT POOL CANNOT BE MADEA RESPONSIBLE REGISTERED NURSE FLOAT POOL. - You cannot stay in a hotel [...] you may. Orthopedic patients having surgery [facility] listed as outpatient should bring their walker into the building. Orthopedic patients having surgery [facility] listed as to be admitted should leave their walkers in the car or with a family member. Sahara Barrett APRN.CNP 10/15/22 documented in this encounterShel[facility]04-10-2023 Miscellaneous Notes* Telephone Encounter - Sarah Main - 10/14/2022 11:20 AM EDT Last appointment: 03/25/22 Next appointment: N/A Pharmacy verified in [facility]. Refill(s) requested: Requested Prescriptions Pending Prescriptions Disp Refills methylphenidate ER 18 mg tablet 30 tablet 0 Sig: Take 1 tablet by mouth every morning for 30 days. Order(s) pended. Please advise. Sarah Main CMA documented in this encounterShel[facility]03-01-2023 NoteHNO ID: [id number] Author: Clifford Valenzuela DPM Service: ? Author [...] preoperative medical clearance, preope (more content not included)...[facility] 09-04-2022 History of Present illness [...] Clifford Valenzuela DPM, FACFAS documented in this encounterShel[facility] Hospital02-23-2023 NoteHNO ID: [id number] Author: Beckie Juarez APRN.TECHNOLOGY INFUSION SPECIALIST Service: ? Author Type: Nurse Practitioner Type: [...] Alejandre DATE: August 29, 2022 TIME: 8:23 [facility]02-16-2023 Miscellaneous Notes* Telephone Encounter - Eileen Gutiérrez DO - 08/22/2022 11:20 AM EST Mom aware that prescription was sent in' Eileen Gutiérrez DO * Telephone Encounter - Kelly Pressley LPN - 08/22/2022 10:00 AM EST The pharmacy pt uses does not have the Concerta on hand and pt has been out of medication x 2 days.Pt found it at [facility] and wonders if Rx's can be sent there. Pt would like called when Rx's are sent in. New Rx's pended for review. Pharmacy info was updated. documented in this encounterShel[facility] Hospital02-03-2023 NoteHNO ID: [id number] Author: Janina Adams LPN Service: ? Author Type: LICENSED NURSE Type: Progress Notes Filed: 08/12/2022 8:51 PM Note Text: Prepared two 10cc syringes with 3cc bupivacaine 3cc lidocaine with 25 gauge needles and gave to MD for injection - Janina Adams [facility]02-03-2023 NoteHNO ID: [id number] Author: Clifford Valenzuela DPM Service: ? Author [...] Valenzuela DPM Informed Consent Consent Obtained: Verbal [place] Protocol SIGN IN TIME OUT Nail removal extremity: bilateral great toe. Anesthesia Details: Local anesthetic: Lidocaine 2% without epinephrine and bupivacaine 0.5% without epinephrine Anesthetic total (ml): 3 ml to each great toe. Procedure (more content not included)...[facility]02-03-2023 History of Present illness Narrative* [...] Valenzuela DPM Informed Consent Consent Obtained: Verbal [place] Protocol SIGN IN TIME OUT Nail removal [...] Clifford Valenzuela DPM, FACFAS documented in this encounterShel[facility] Hospital01-12-2023 NoteHNO ID: [id number] Author: Clifford Valenzuela DPM Service: ? Author [...] prognosis. Patient was also (more content not included)...[facility]01-12-2023 History of Present illness Narrative* [...] Clifford Valenzuela DPM, FACFAS documented in this encounterSheltering [facility] Hospital12-16-2022 Miscellaneous Notes* Telephone Encounter - Jesenia Mann RN - 06/21/2022 9:14 AM EST Patient left message on RN line today at 8:30 wanting to talk about an unspecified medication refill. Patient requested call back to [phone]. Called patient. She had an insurance change [...] medication for two weeks. documented in this encounterShel[facility] Hospital12-05-2022 Miscellaneous Notes* Telephone Encounter - Anselmo Posadas - 06/10/2022 12:20 PM EST Patient needs a new rx for Concerta - 30 days, insurance won't cover a 90 day. * Telephone Encounter - Keisha Rojas - 06/10/2022 11:19 AM EST [facility] pharmacy in [place] called today on 06/10/22 regards to patients medication Concerta. Pharmacy stated that Dr. Gutiérrez prescribed patient with a 90 day supply and patients insurance only covers a 30 day supply. Pharmacy filled a 30 day supply of Concerta instead of 90 day supply. Void of 60 day supply. Pharmacy stated patient needs a new prescription. Please advise. documented in this encounterShel[facility] Hospital11-30-2022 History of Present illness Narrative* Clifford [...] Clifford Valenzuela DPM, FACFAS documented in this encounterSheltering Arms Hospital11-23-2022 History of Past illness Narrative* Problem [...] of this encounter (statuses as of 06/10/2022) [facility] History of Past illness Narrative* Problem [...] of this encounter (statuses as of 06/12/2022) [facility] History of Past illness Narrative* Problem [...] of this encounter (statuses as of 06/17/2022) [facility] of Past illness Narrative* Problem [...] of this encounter (statuses as of 06/20/2022) [facility] History of Past illness Narrative* Problem [...] of this encounter (statuses as of 06/21/2022) [facility] Past illness Narrative* Problem [...] of this encounter (statuses as of 07/31/2022) [facility] Narrative* Problem [...] of this encounter (statuses as of 08/13/2022) [facility] of Past illness Narrative* Problem [...] of this encounter (statuses as of 08/22/2022) [facility] Past illness Narrative* Problem [...] of this encounter (statuses as of 09/03/2022) [facility] Past illness Narrative* Problem [...] of this encounter (statuses as of 09/17/2022) [facility] Past illness Narrative* Problem [...] of this encounter (statuses as of 10/14/2022) [facility] of Past illness Narrative* Problem [...] of this encounter (statuses as of 10/18/2022) [facility] History of Present illness Narrative* Eileen Gutiérrez DO - 04/05/2022 12:17 PM EDT Form faxed to office Eileen Gutiérrez DO documented in this encounterShel[facility]08[facility] Miscellaneous Notes* Telephone Encounter - Rosales [...] by Rosales Sanders APRN.CNP documented in this encounterSheltering [facility] Hospital08-08-2022 Instructions* Patient Instructions* Zari Hager APRN.CNP [...] tips for improved daily living with POTS. http://www.[facility].org/pots Orthostatic Workout There are videos /playlist/podcast to viewed and helped for exercises and wellness for POTS and Orthostatics Instructions:https://www.Backlift.com/channel/[email or web address] In your search bar in the internet [...] Also follow us along on our new Cheyipaiagram account JONNY Also besides the exercise are some ricarda mediation videos . Click and watch. Utilize when your adrenaline is active. May even play music to go along. Play the video as often you want to help as an additional tool to reset the adrenaline https://www.youArmedZillaube.com/watch?v=kSZb8qHxJJ6 https://www.Big Switch Networksube.com/watch?v=u3uQnjO-9dM&feature=youtu.be https://www.Big Switch Networksube.com/watch?v=H0dS8cSoT52 Shared Medical Appointments To schedule the [facility]OTS SMA please call during Friday-Friday 9 am - 4 pm , THE CALL CENTER # [phone] The CALL CENTER IS OPEN 24 hours/ 7 DAYS PER WEEK Please be patient with the phone line. We are honored and glad to have you part of the SMA for POTS Welcome to [facility] (SHARED MEDICAL APPOINTMENTS) We have learned at the [facility] and especially in my work and [...] you for wellness and better heal Dr. Trevro Wright and the Autonomic Team The nursing staff and medical assistants are a major part of YOUR TREATMENT TEAM and will be handling your phone calls, ITYZhart messages and inquiries, if any. Unless explicitly [...] do not comment on most testing on Kowlooniahart in a message or commentary unless there [...] you with this process. documented in this encounterShel[facility]08-[facility]22 History of Present illness Narrative* Zari Hager APRN.CNP - 02/11/2022 10:52 AM EDT Images from the original note were not included. [facility] Neu[facility] Follow Up Polina Alejandre [...] commands Cranial Nerves PERRLA No ptosis Visual marquez are full to confrontation Extraocular movements are [...] Extension 5/5 5/5 Movement/Coordination Finger-to- nose-finger and szyc-hm-grgd intact bilaterally. No evidence of ataxia arms. [...] which included preparing to see the patient, sdgq-xw-tnbw patient care, completing clinical documentation, obtaining and/or [...] for this visit on 02/11/22. Zari Hager APRN.[facility] General Neurology [address] [place] [address]. [phone] Appointment: [phone] 1. This office note has been dictated [...] of your PCP/referring physician documented in this encounterS[facility]05[facility] Instructions* Patient Instructions* Yahaira Arredondo APRN.CNP [...] in 24 -48 hours, results available on [facility] Home isolation until covid results are back [...] to thin out mucus documented in this encounterShel[facility] Hospital05-[facility] History of Present illness Narrative* Yahaira Arredondo APRN.CNP - 11/26/2021 8:52 AM EDT Subjective The history is provided by the patient. No commanding officer garage was used. HPI Polina Alejandre is a 21 year old female who presents today for CC of cough, congestion and fever, fatigue, body aches, headache. She has used tylenol with short term relief. 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 Wheezing [...] Level: 4 - Moderate documented in this encounterSheltering [facility] Hospital05-17-2022 Miscellaneous Notes* Telephone Encounter - Janey [...] need be. She saw the provider in [place] in September for a physical to be [...] filled. No suspiciousactivity was identified. 11/20/2021 by Betrha Edge APRN.NEERU Patient's request for medication is as follows Signed Prescriptions Disp Refills methylphenidate ER 18 mg tablet 90 tablet 0 Sig: Take 1 tablet by mouth every morning for 90 days. SAMEER Class: C-II DARVIN: No Authorizing Provider: BERTHA EDGE Please confirm PCP -- patient has not been seen by Dr. Gutiérrez in [facility] since 03/2020. Look slfrance Polina has been seen in [place] lately. Bertha Edge APRN.CNP * Telephone Encounter [...] advise. Megan Hodges MA documented in this encounterShel[facility]05-17-[facility]22 History of Present illness Narrative* Lisa Pacheco RN - 11/20/2021 10:51 AM EDT Asthma Home Monitoring Program Breathe Well Outreach Provider Action/FYI: Approval received from Dr Oracio Bertrand to draft AAP per below FYI Reason for outreach: Follow up and Asthma Action Plan, Health Maintenance, due for Pulm F/up Contact made: Yes, via ITYZhart VM left. SIGNATURE: Lisa Pacheco RN PATIENT NAME: Polina Alejandre DATE: November 20, 2021 TIME: 10:51 AM * Lisa Pacheco RN - 11/09/2021 3:11 PM EDT Asthma Home Monitoring Program Breathe Well Outreach Provider Action/FYI: Hi Dr Bertrand, Pt is over due for f/up in your office. RN called and left message encouraging arranging f/up visitwith your office and will send [facility] message. From a health maintenance perspective patient [...] 2021 TIME: 3:11 PM documented in this encounterShel[facility] Hospital05-02-2022 Miscellaneous Notes* Telephone Encounter - Adenike Odom RN - 11/05/2021 11:00 AM EDT Last OV: 12/18/2020 Last Refill: 08/29/2021 F/U OV: N/A Appropriate for refill. Routed to MI for review. Adenike Odom RN, BSN, BA documented in this encounterShel[facility] Hospital04-14-2022 Miscellaneous Notes* Telephone Encounter - Jeana Aranda DO - 10/18/2021 3:23 PM EDT orthotics ordered. please assist. hs documented in this encounterSheltering [facility] Hospital04-05-2022 History of Present illness Narrative* Clifford [...] they have tried everything [facility] well as everything found online. No [...] sensation intact at all pedal sites via [place] 5.07 monofilament bilateral. Proprioception intact at [...] bleeding, clots, bleeding disorders. documented in this encounterSheltering Arms Hospital03-28-2022 Instructions* Patient Instructions* Beckie Juarez APRN.TECHNOLOGY INFUSION SPECIALIST - 10/01/2021 10:03 AM EDT Images from [...] drinks Go! Be healthy, inside and out! www.[facility].org/5toGo Adolescent to Adult Transition Program [facility] cares about helping you and each of our adolescents and young adults make a smoothtransition to adult care. If your current doctor is a field services manager, we will work with you to decide [...] your current doctor is in family medicine, [facility] will prepare you and your family [...] details. If joining our practice from outside [facility], we will help you request your [...] the use of evidence-driven strategies for health care management coordinator, youth, young adults, and their families. www.gottransition.org https://gottransition.org/resource/?uwm-qrpmqr-qpjccis documented in this encounterSheltering Arms Hospital03-28-2022 History of Present illness Narrative* Beckie [...] satisfactory Screening tools reviewed and discussed with patient/kfhixx-EFU-9 and Social Determinants of Health.Please see Patient [...] for respiratory tuberculosis Z11.1 PPD (TB INTRADERMAL 54774) B/O 53 %ile (Z= 0.08) based on [...] and safety. - Dental care discussed. - Weddingful handout given (See Patient Instructions). - Parent/guardian declined immunization for HPV and was counseled regarding risk. Discussed benefits of vaccination and encouraged patient to return to clinic for HPV vaccine. - Follow up in one year for routine physical. SIGNATURE: Beckie Juarez APRN.NEERU PATIENT NAME: Polina Alejandre DATE: October 01, 2021 TIME: 9:25 AM documented in this encounterSheltering Arms Hospital03-22-2022 Miscellaneous Notes* Telephone Encounter - Irma Ford Director Sports Ppg - 09/25/2021 11:26 AM EDT Patient contacted and scheduled with Dr. Valenzuela on 10/09/21. She was instructed to bring the prior op report or drop it off prior to her office visit. Patient said she will bring it to the scheduled appointment. 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 The person she goes to for her Orthotic highly recommended Dr. Valenzuela. I will have Irma check with Dr. Valenzuela to see if it is okay to schedule this patient. Ayaka Palencia Villanueva Ppg September 24, 2021 3:50 PM * Telephone Encounter - Ayaka Palencia Villanueva Ppg - 09/24/2021 3:47 PM EDT ----- Message from Bertha Still sent at 09/24/2021 8:10 AM EDT [...] other than patient: self Best contact number: [phone] Thank you, Bertha Still September 24, 2021 8:11 AM documented in this encounterShel[facility] Hospital10-[facility]-2020 History of Past illness Narrative* Problem [...] of this encounter (statuses as of 09/25/2021) [facility] Narrative* Problem [...] of this encounter (statuses as of 10/02/2021) [facility] illness Narrative* Problem [...] of this encounter (statuses as of 10/03/2021) [facility] Narrative* Problem [...] of this encounter (statuses as of 10/08/2021) [facility] Narrative* Problem [...] of this encounter (statuses as of 10/10/2021) [facility] Narrative* Problem [...] of this encounter (statuses as of 10/15/2021) [facility] Narrative* Problem [...] of this encounter (statuses as of 10/18/2021) [facility] Narrative* Problem [...] of this encounter (statuses as of 11/05/2021) [facility] N[facility]ative* Problem [...] of this encounter (statuses as of 11/20/2021) [facility] Narrative* Problem [...] of this encounter (statuses as of 11/20/2021) [facility] Narrative* Problem [...] of this encounter (statuses as of 11/26/2021) [facility] Narrative* Problem [...] of this encounter (statuses as of 01/14/2022) [facility] Narrative* Problem [...] of this encounter (statuses as of 02/11/2022) [facility] Narrative* Problem [...] of this encounter (statuses as of 02/19/2022) [facility] Narrative* Problem [...] of this encounter (statuses as of 04/05/2022) [facility] Narrative* Problem [...] of this encounter (statuses as of 05/29/2022) [facility] note* Diagnosis Well adolescent visit without abnormal findings- Primary Intermittent asthma, well controlled Unspecified asthma Negative depression screening Encounter for screening for lipoid disorders Screening for lipoid disorders Encounter for screening for respiratory tuberculosis Screening examination for pulmonary tuberculosis [facility] Diagnosis Encounter for screening for respiratory tuberculosis- Primary Screening examination for pulmonary tuberculosis [facility] Diagnosis PPD screening test- Primary Screening examination for pulmonary tuberculosis documented in this encounter [facility] note* Diagnosis Screening examination for pulmonary tuberculosis- Primary [facility]* Diagnosis Acquired mallet toe, right- Primary Bilateral foot pain Pain in limb [facility]* Diagnosis 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, not elsewhere classified documented [facility]* Diagnosis POTS (postural orthostatic tachycardia syndrome) Tachycardia, unspecified Migraine without aura and without status migrainosus, not intractable Migraine without aura, without mention of intractable migraine without mention of status migrainosus documented [facility] this encounter [facility]* 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 documented [facility] encounter [facility]* Diagnosis Flu-like symptoms- Primary Other general symptoms Suspected COVID-19 virus infection Wheezing [facility] Diagnosis Easy bruising- Primary Other symptoms involving skin and integumentary tissues [facility]* Diagnosis POTS (postural orthostatic tachycardia syndrome) Tachycardia, unspecified [facility]* 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 [facility]* Diagnosis Mallet toe, acquired, left- Primary Mallet toe, acquired, left [facility]* 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 [facility]* 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 [facility]* Diagnosis Post-operative state- Primary Other postprocedural status [facility]* 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 [facility] Diagnosis Acquired mallet toe, right- Primary Post-operative state Other postprocedural status Ingrown toenail of both feet MT (mallet toe), right [facility]* Diagnosis Ingrowing nail- Primary Pain in toe of left foot Pain in limb Pain in toe of right foot Pain in limb MT (mallet toe), right [facility]* 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 MT (mallet toe), right [facility] Diagnosis Pain in toe of right foot- Primary Pain in limb MT (mallet toe), right documented in this encounter [facility] note* 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 MT (mallet toe), right documented in this encounter [facility] note* Diagnosis Gastroesophageal reflux disease, unspecified whether esophagitis present- Primary Elevated blood pressure reading without diagnosis of hypertension Pre-op examination Preoperative examination, unspecified Mild intermittent asthma without complication Unspecified asthma POTS (postural orthostatic tachycardia syndrome) Tachycardia, unspecified Delayed emergence from anesthesia, subsequent encounter Nonintractable epilepsy without status epilepticus, 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 MT (mallet toe), right documented in this encounter [facility] note* Diagnosis MT (mallet toe), right- Primary MT (mallet toe), right documented in this encounter [facility] note* Diagnosis Seborrheic dermatitis- Primary Seborrheic dermatitis, unspecified documented in this encounter [facility] note* Diagnosis Post-operative state- Primary Other postprocedural status documented in this encounter [facility] note* Diagnosis Perioral dermatitis- Primary Rosacea documented in this encounter [facility] note* 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 documented in this encounter [facility] note* 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 documented in this encounter [facility] note* 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 documented in this encounter [facility] note* Diagnosis Post-operative state- Primary Other postprocedural status Acquired mallet toe, right Ingrowing nail documented in this encounter [facility] note* Diagnosis Ingrown toenail of both feet- Primary Onychodystrophy Other specified disease of nail documented in this encounter [facility] note* Diagnosis Ingrown toenail of both feet- Primary Post-operative state Other postprocedural status documented in this encounter [facility] for referral (narrative)* Diagnostic Procedure Only (Routine) - Pending Review Specialty Diagnoses / Procedures Referred By Chaz maxwell Referred To Contact XR IMAGING Diagnoses Acquired mallet toe, right Bilateral foot pain Procedures XR FOOT GENERAL 3V AP/LAT/OBL RIGHT RADEX FOOT COMPLETE MINIMUM 3 VIEWS Clifford Valenzuela DPM [address] [address] Xr Imaging Referral ID Status Reason Start Date Expiration Date Visits Requested Visits Authorized [id number] Pending Review Auto-Generat ed Referral 10/10/2021 11/08/2022 1 1 * Diagnostic Procedure Only (Routine) - Pending Review Specialty Diagnoses / Procedures Referred By Contac t Referred To Contact XR IMAGING Diagnoses Acquired mallet toe, right Bilateral foot pain Procedures XR FOOT GENERAL 3V AP/LAT/OBL LEFT RADEX FOOT COMPLETE MINIMUM 3 VIEWS Clifford Valenzuela DPM [address] [place] [address] Xr Imaging Referral ID Status Reason Start Date Expiration Date Visits Requested Visits Authorized [id number] Pending Review Auto-Generat ed Referral 10/10/2021 11/08/2022 1 1 [facility] for referral (narrative)* Diagnostic Procedure Only (Routine) - Pending Review Specialty Diagnoses / Procedures Referred By Contac t Referred To Contact XR IMAGING Diagnoses Post-operative state Procedures XR FOOT GENERAL 3V AP/LAT/OBL LEFT RADEX FOOT COMPLETE MINIMUM 3 VIEWS Clifford Valenzuela DPM [address] [place] [address] Xr Imaging Referral ID Status Reason Start Date Expiration Date Visits Requested Visits Authorized [id number] Pending Review Auto-Generat ed Referral 06/10/2022 07/05/2023 1 1 [facility] for referral (narrative)* Diagnostic Procedure Only (Routine) - Pending Review Specialty Diagnoses / Procedures Referred By Contac t Referred To Contact XR IMAGING Diagnoses Post-operative state Procedures XR FOOT GENERAL 3V AP/LAT/OBL RIGHT RADEX FOOT COMPLETE MINIMUM 3 VIEWS Clifford Valenzuela DPM [address] [place] [address] Xr Imaging Referral ID Status Reason Start Date Expiration Date Visits Requested Visits Authorized [id number] Pending Review Auto-Generat ed Referral 12/04/2022 01/03/2024 1 1 [facility] Diagnostic Procedure Only (Routine) - Pending Review Specialty Diagnoses / Procedures Referred By Contac t Referred To Contact XR IMAGING Diagnoses Post-operative state Acquired mallet toe, right Procedures XR FOOT GENERAL 3V AP/LAT/OBL RIGHT RADEX FOOT COMPLETE MINIMUM 3 VIEWS Clifford Valenzuela DPM [address] [address] Xr Imaging Referral ID Status Reason Start Date Expiration Date Visits Requested Visits Authorized [id number] Pending Review Auto-Generat ed Referral 01/18/2023 02/14/2024 1 1 [facility] Summary Purpose Family History No Family History Records FoundThere may be information available, but it has not been provided by the sender.No Family History Records FoundNo Family History Records FoundNo Family History Records FoundNo Family History Records Found Advance Directives Documents on File Type Date 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 Advance Directive(s) Documents on File Type Date Recorded 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 Advance Directive(s) Chief Complaint Chief [...] at Discharge: .Home Vital Signs: T PRBPSpO2 [id number]/7196% Date/Time12/30 16: 16: 16: 16: 16:13 Range(36.6C [...] Referred To Contact Diagnoses Narcolepsy without cataplexy Rosaels Sanders APRN.TECHNOLOGY INFUSION SPECIALIST [address] [facility] [address] [place] [address] Referral ID Status Reason Start Date Expiration Date V isits Requested Visits Authorized [id number] Pending Review 1 1 Additional Source Comments INFORMATION SOURCE (unrecogn ized section and content) DATE CREATED AUTHOR AUTHOR'S ORGANIZ ATION 01/26/2020 [facility] DATE CREATED AUTHOR AUTHOR'S ORGANIZ ATION 11/07/2022 [facility] DATE CREATED AUTHOR AUTHOR'S ORGANIZ ATION 06/13/2023 [facility] DATE CREATED AUTHOR AUTHOR'S ORGANIZ ATION 06/23/[address] [facility] Reason for Visit (unrecogniz ed section and [...] [facility] [address] [place] [address] Referral ID Status Reason Start Date Expiration Date Visits Re quested Visits Authorized [id number] 1 1 Reason Comments Follow Up Gyant [...] Referred To Contact Radiology / RADIO MRI [facility] Epigastric pain Gastritis GERD (gastroesophageal reflux disease) Liver lesion Elevated LFTs MRI ABDOMEN W CON - MRI LIVER W CONTRAST Epigastric pain R10.13 Gastritis K29.09 GERD K21.9 Liver lesion K76.9 Elevated LFTs R79.89 Procedures MRI ABDOMEN W/CONTRAST MATERIAL MRI ABDOMEN W/O & W/CONTRAST MATERIAL MRI WWO ABD [address] Martinez, WEB WORKER.SAFETY TEACHER [address] [place] [address] [place] [address] Referral ID Status Reason Start Date Expiration Date Visits Re quested Visits Authorized [id number] Closed 11/25/2022 05/24/2023 1 1 Source Comments (unrecognize d section and content) In the event this informatio n is protected by the Federal Confidentiality of Alcohol and Drug Abuse Patient Records regulations: The Federal rules restrict any use of the information to criminally investigate or prosecute any alcohol or drug abuse patient.[facility] HospitalIn the event this information is protected by the Federal Confidentiality of Alcohol and Drug Abuse Patient Records regulations: The Federal rules restrict any use of the information to criminally investigate or prosecute any alcohol or drug abuse patient.[facility] HospitalIn the event this information is protected by the Federal Confidentiality of Alcohol and Drug Abuse Patient Records regulations: The Federal rules restrict any use of the information to criminally investigate or prosecute any alcohol or drug abuse patient.[facility] HospitalIn the event this information is protected by the Federal Confidentiality of Alcohol and Drug Abuse Patient Records regulations: The Federal rules restrict any use of the information to criminally investigate or prosecute any alcohol or drug abuse patient.[facility] HospitalIn the event this information is protected by the Federal Confidentiality of Alcohol and Drug Abuse Patient Records regulations: The Federal rules restrict any use of the information to criminally investigate or prosecute any alcohol or drug abuse patient.[facility] HospitalIn the event this information is protected by the Federal Confidentiality of Alcohol and Drug Abuse Patient Records regulations: The Federal rules restrict any use of the information to criminally investigate or prosecute any alcohol or drug abuse patient.[facility] HospitalIn the event this information is protected by the Federal Confidentiality of Alcohol and Drug Abuse Patient Records regulations: The Federal rules restrict any use of the information to criminally investigate or prosecute any alcohol or drug abuse patient.[facility] HospitalIn the event this information is protected by the Federal Confidentiality of Alcohol and Drug Abuse Patient Records regulations: The Federal rules restrict any use of the information to criminally investigate or prosecute any alcohol or drug abuse patient.[facility] HospitalIn the event this information is protected by the Federal Confidentiality of Alcohol and Drug Abuse Patient Records regulations: The Federal rules restrict any use of the information to criminally investigate or prosecute any alcohol or drug abuse patient.[facility] HospitalIn the event this information is protected by the Federal Confidentiality of Alcohol and Drug Abuse Patient Records regulations: The Federal rules restrict any use of the information to criminally investigate or prosecute any alcohol or drug abuse patient.[facility] HospitalIn the event this information is protected by the Federal Confidentiality of Alcohol and Drug Abuse Patient Records regulations: The Federal rules restrict any use of the information to criminally investigate or prosecute any alcohol or drug abuse patient.[facility] HospitalIn the event this information is protected by the Federal Confidentiality of Alcohol and Drug Abuse Patient Records regulations: The Federal rules restrict any use of the information to criminally investigate or prosecute any alcohol or drug abuse patient.[facility] HospitalIn the event this information is protected by the Federal Confidentiality of Alcohol and Drug Abuse Patient Records regulations: The Federal rules restrict any use of the information to criminally investigate or prosecute any alcohol or drug abuse patient.[facility] HospitalIn the event this information is protected by the Federal Confidentiality of Alcohol and Drug Abuse Patient Records regulations: The Federal rules restrict any use of the information to criminally investigate or prosecute any alcohol or drug abuse patient.[facility] HospitalIn the event this information is protected by the Federal Confidentiality of Alcohol and Drug Abuse Patient Records regulations: The Federal rules restrict any use of the information to criminally investigate or prosecute any alcohol or drug abuse patient.[facility] HospitalIn the event this information is protected by the Federal Confidentiality of Alcohol and Drug Abuse Patient Records regulations: The Federal rules restrict any use of the information to criminally investigate or prosecute any alcohol or drug abuse patient.[facility] HospitalIn the event this information is protected by the Federal Confidentiality of Alcohol and Drug Abuse Patient Records regulations: The Federal rules restrict any use of the information to criminally investigate or prosecute any alcohol or drug abuse patient.[facility] HospitalIn the event this information is protected by the Federal Confidentiality of Alcohol and Drug Abuse Patient Records regulations: The Federal rules restrict any use of the information to criminally investigate or prosecute any alcohol or drug abuse patient.[facility] HospitalIn the event this information is protected by the Federal Confidentiality of Alcohol and Drug Abuse Patient Records regulations: The Federal rules restrict any use of the information to criminally investigate or prosecute any alcohol or drug abuse patient.[facility] HospitalIn the event this information is protected by the Federal Confidentiality of Alcohol and Drug Abuse Patient Records regulations: The Federal rules restrict any use of the information to criminally investigate or prosecute any alcohol or drug abuse patient.[facility] HospitalIn the event this information is protected by the Federal Confidentiality of Alcohol and Drug Abuse Patient Records regulations: The Federal rules restrict any use of the information to criminally investigate or prosecute any alcohol or drug abuse patient.[facility] HospitalIn the event this information is protected by the Federal Confidentiality of Alcohol and Drug Abuse Patient Records regulations: The Federal rules restrict any use of the information to criminally investigate or prosecute any alcohol or drug abuse patient.[facility] HospitalIn the event this information is protected by the Federal Confidentiality of Alcohol and Drug Abuse Patient Records regulations: The Federal rules restrict any use of the information to criminally investigate or prosecute any alcohol or drug abuse patient.[facility] HospitalIn the event this information is protected by the Federal Confidentiality of Alcohol and Drug Abuse Patient Records regulations: The Federal rules restrict any use of the information to criminally investigate or prosecute any alcohol or drug abuse patient.[facility] HospitalIn the event this information is protected by the Federal Confidentiality of Alcohol and Drug Abuse Patient Records regulations: The Federal rules restrict any use of the information to criminally investigate or prosecute any alcohol or drug abuse patient.[facility] HospitalIn the event this information is protected by the Federal Confidentiality of Alcohol and Drug Abuse Patient Records regulations: The Federal rules restrict any use of the information to criminally investigate or prosecute any alcohol or drug abuse patient.[facility] HospitalIn the event this information is protected by the Federal Confidentiality of Alcohol and Drug Abuse Patient Records regulations: The Federal rules restrict any use of the information to criminally investigate or prosecute any alcohol or drug abuse patient.[facility] HospitalIn the event this information is protected by the Federal Confidentiality of Alcohol and Drug Abuse Patient Records regulations: The Federal rules restrict any use of the information to criminally investigate or prosecute any alcohol or drug abuse patient.[facility] HospitalIn the event this information is protected by the Federal Confidentiality of Alcohol and Drug Abuse Patient Records regulations: The Federal rules restrict any use of the information to criminally investigate or prosecute any alcohol or drug abuse patient.[facility] HospitalIn the event this information is protected by the Federal Confidentiality of Alcohol and Drug Abuse Patient Records regulations: The Federal rules restrict any use of the information to criminally investigate or prosecute any alcohol or drug abuse patient.[facility] HospitalIn the event this information is protected by the Federal Confidentiality of Alcohol and Drug Abuse Patient Records regulations: The Federal rules restrict any use of the information to criminally investigate or prosecute any alcohol or drug abuse patient.[facility] HospitalIn the event this information is protected by the Federal Confidentiality of Alcohol and Drug Abuse Patient Records regulations: The Federal rules restrict any use of the information to criminally investigate or prosecute any alcohol or drug abuse patient.[facility] HospitalIn the event this information is protected by the Federal Confidentiality of Alcohol and Drug Abuse Patient Records regulations: The Federal rules restrict any use of the information to criminally investigate or prosecute any alcohol or drug abuse patient.[facility] HospitalIn the event this information is protected by the Federal Confidentiality of Alcohol and Drug Abuse Patient Records regulations: The Federal rules restrict any use of the information to criminally investigate or prosecute any alcohol or drug abuse patient.[facility] HospitalIn the event this information is protected by the Federal Confidentiality of Alcohol and Drug Abuse Patient Records regulations: The Federal rules restrict any use of the information to criminally investigate or prosecute any alcohol or drug abuse patient.[facility] HospitalIn the event this information is protected by the Federal Confidentiality of Alcohol and Drug Abuse Patient Records regulations: The Federal rules restrict any use of the information to criminally investigate or prosecute any alcohol or drug abuse patient.[facility] HospitalIn the event this information is protected by the Federal Confidentiality of Alcohol and Drug Abuse Patient Records regulations: The Federal rules restrict any use of the information to criminally investigate or prosecute any alcohol or drug abuse patient.[facility] HospitalIn the event this information is protected by the Federal Confidentiality of Alcohol and Drug Abuse Patient Records regulations: The Federal rules restrict any use of the information to criminally investigate or prosecute any alcohol or drug abuse patient.[facility] HospitalIn the event this information is protected by the Federal Confidentiality of Alcohol and Drug Abuse Patient Records regulations: The Federal rules restrict any use of the information to criminally investigate or prosecute any alcohol or drug abuse patient.[facility] HospitalIn the event this information is protected by the Federal Confidentiality of Alcohol and Drug Abuse Patient Records regulations: The Federal rules restrict any use of the information to criminally investigate or prosecute any alcohol or drug abuse patient.[facility] HospitalIn the event this information is protected by the Federal Confidentiality of Alcohol and Drug Abuse Patient Records regulations: The Federal rules restrict any use of the information to criminally investigate or prosecute any alcohol or drug abuse patient.[facility] HospitalIn the event this information is protected by the Federal Confidentiality of Alcohol and Drug Abuse Patient Records regulations: The Federal rules restrict any use of the information to criminally investigate or prosecute any alcohol or drug abuse patient.[facility] HospitalIn the event this information is protected by the Federal Confidentiality of Alcohol and Drug Abuse Patient Records regulations: The Federal rules restrict any use of the information to criminally investigate or prosecute any alcohol or drug abuse patient.[facility] HospitalIn the event this information is protected by the Federal Confidentiality of Alcohol and Drug Abuse Patient Records regulations: The Federal rules restrict any use of the information to criminally investigate or prosecute any alcohol or drug abuse patient.[facility] HospitalIn the event this information is protected by the Federal Confidentiality of Alcohol and Drug Abuse Patient Records regulations: The Federal rules restrict any use of the information to criminally investigate or prosecute any alcohol or drug abuse patient.[facility] HospitalIn the event this information is protected by the Federal Confidentiality of Alcohol and Drug Abuse Patient Records regulations: The Federal rules restrict any use of the information to criminally investigate or prosecute any alcohol or drug abuse patient.[facility] Care Teams (unrecognized sec tion and content) Legal Word Processor Relationship Specialty Start Date End Date Eileen Gutiérrez, DO [address] [address] [place] [address] PCP - General 02 Legal Word Processor Relationship Specialty Start Date End Date Eileen Gutiérrez, DO [address] [address] [place] [address] PCP - General 02 Legal Word Processor Relationship Specialty Start Date End Date Eileen Gutiérrez, DO [address] [address] [place] [address] PCP - General 02 Legal Word Processor Relationship Specialty Start Date End Date Eileen Gutiérrez, DO [address] [address] [place] [address] PCP - General 02 Legal Word Processor Relationship Specialty Start Date End Date Eileen Gutiérrez, DO [address] [address] [place] [address] PCP - General 02 Legal Word Processor Relationship Specialty Start Date End Date Eileen Gutiérrez, DO [address] [address] [place] [address] PCP - General 02 Legal Word Processor Relationship Specialty Start Date End Date Eileen Gutiérrez, DO [address] [address] [place] [address] PCP - General 02 Legal Word Processor Relationship Specialty Start Date End Date Eileen Gutiérrez, DO [address] [address] [place] [address] PCP - General 02 Legal Word Processor Relationship Specialty Start Date End Date Eileen Gutiérrez, DO [address] [address] [place] [address] PCP - General 02 Legal Word Processor Relationship Specialty Start Date End Date Eileen Gutiérrez, DO [address] [address] [place] [address] PCP - General 02 Legal Word Processor Relationship Specialty Start Date End Date Eileen Gutiérrez, DO [address] [address] [place] [address] PCP - General 02 Legal Word Processor Relationship Specialty Start Date End Date Eileen Gutiérrez, DO [address] [address] [place] [address] PCP - General 02 Legal Word Processor Relationship Specialty Start Date End Date Eileen Gutiérrez, DO [address] [address] [place] [address] PCP - General 02 Legal Word Processor Relationship Specialty Start Date End Date Eileen Gutiérrez, DO [address] [address] [place] [address] PCP - General 02 Legal Word Processor Relationship Specialty Start Date End Date Eileen Gutiérrez, DO [address] [address] [place] [address] PCP - General 02 Legal Word Processor Relationship Specialty Start Date End Date Eileen Gutiérrez, DO [address] [address] [place] [address] PCP - General 02 Legal Word Processor Relationship Specialty Start Date End Date Eileen Gutiérrez, DO [address] [address] [place] [address] PCP - General 02 Legal Word Processor Relationship Specialty Start Date End Date Eileen Gutiérerz, DO [address] [address] [place] [address] PCP - General 02 Legal Word Processor Relationship Specialty Start Date End Date Eileen Gutiérrez, DO [address] [address] [place] [address] PCP - General 02 Lisa Pacheco, pullboat engineer Emergency Response Officer 11/06/22 12/06/22 Legal Word Processor Relationship Specialty Start Date End Date Eileen Gutiérrez, DO [address] [address] [place] [address] PCP - General 02 Lisa Pacheco, pullboat engineer Emergency Response Officer 11/06/22 12/06/22 Legal Word Processor Relationship Specialty Start Date End Date Eileen Gutiérrez, DO [address] [address] [place] [address] PCP - General 02 Lisa Pacheco, pullboat engineer Emergency Response Officer 11/06/22 12/06/22 Legal Word Processor Relationship Specialty Start Date End Date Eileen Gutiérrez, DO [address] [address] [place] [address] PCP - General 02 Lisa Pacheco, pullboat engineer Emergency Response Officer 11/06/22 12/06/22 Legal Word Processor Relationship Specialty Start Date End Date Eileen Gutiérrez, DO [address] [address] [place] [address] PCP - General 02 Lisa Pacheco, pullboat engineer Emergency Response Officer 11/06/22 12/06/22 Legal Word Processor Relationship Specialty Start Date End Date Eileen Gutiérrez DO [address] [address] [place] [address] PCP - General 02 Legal Word Processor Relationship Specialty Start Date End Date Eileen Gutiérrez DO [address] [address] [place] [address] PCP - General 02 Legal Word Processor Relationship Specialty Start Date End Date Eileen Gutiérrez DO [address] [address] [place] [address] PCP - General 02 Legal Word Processor Relationship Specialty Start Date End Date Eileen Gutiérrez DO [address] [address] [place] [address] PCP - General 02 Legal Word Processor Relationship Specialty Start Date End Date Eileen Gutiérrez DO [address] [address] [place] [address] PCP - General 02 Legal Word Processor Relationship Specialty Start Date End Date Eileen Gutiérrez DO [address] [address] [place] [address] PCP - General 02 Legal Word Processor Relationship Specialty Start Date End Date Eileen Gutiérrez DO [address] [address] [place] [address] PCP - General 02 Legal Word Processor Relationship Specialty Start Date End Date Eileen Gutiérrez DO [address] [address] [place] [address] PCP - General 02 Legal Word Processor Relationship Specialty Start Date End Date Eileen Gutiérrez DO [address] [address] [place] [address] PCP - General 02 Legal Word Processor Relationship Specialty Start Date End Date Eileen Gutiérrez DO [address] [address] [place] [address] PCP - General 02 Scheduled Active and [...] BE BASED ON THE PRIMARY CLINICAL RECORDS. [employer] [facility]. provides no warranty or guarantee of the accuracy or completeness of information in this document.
[2023-09-01 10:38] LABS: Anion Gap 4 (5-15); BUN 12 mg/dL (7-18); BUN/Creat Ratio 16.7 RATIO (10-20); Chloride 109 mmol/L (98-107); Creatinine, Serum 0.72 mg/dL (0.55-1.02); EST Glomerular Filtration Rate 109 mL/min (>60); Est Glom Filt Rate - Afr Amer 132 mL/min (>60); Glucose 46 mg/dL (74-106); Magnesium 2.3 mg/dL (1.6-2.6); Potassium 3.4 mmol/L (3.5-5.1); Sodium Level 141 mmol/L (136-145)
[2023-09-01 10:43] LABS: Phosphorus 3.6 mg/dL (2.5-4.9)
[2023-09-05 01:24] LABS: Beef <0.10 kU/L (Class 0); Chocolate <0.10 kU/L (Class 0); Codfish <0.10 kU/L (Class 0); Corn <0.10 kU/L (Class 0); Egg, Whole <0.10 kU/L (Class 0); Milk (Cow) <0.10 kU/L (Class 0); Mussels <0.10 kU/L (Class 0); Peanut <0.10 kU/L (Class 0); Pork <0.10 kU/L (Class 0); Salmon <0.10 kU/L (Class 0); Shrimp <0.10 kU/L (Class 0); Soybean <0.10 kU/L (Class 0); Tuna <0.10 kU/L (Class 0); Wheat <0.10 kU/L (Class 0)
[2023-09-05 22:07] LABS: Adrenocorticotropic Hormone 50.7 pg/mL (7.2-63.3); Aldosterone, Serum 1.4 ng/dL (0.0-30.0); Chromogranin A 526.2 ng/mL (0.0-101.8); Renin, Plasma 1.394 ng/mL/hr (0.167-5.380)
== END | disposition home or self-care (01) ==
LOC: LAB 08:23
PROVIDERS: Internal Medicine Gastroenterology; PCP Family Medicine; Referring Provider Family Medicine; Visit Provider Family Medicine
DX: E87.6 Hypokalemia (principal); R10.9 Unspecified abdominal pain
CPT/HCPCS: 36415; 80048; 82024; 82088; 82533; 83735; 84100; 84244; 86003; 86005; 86316

== ENCOUNTER → 2023-09-08 | Outpatient (CLI) | payer OTHER, SELFPAY ==
[2023-09-08 14:37] LABS: Vitamin B12 591 pg/mL (211-911)
[2023-09-11 15:08] LABS: Anti-Parietal Cell AB, QN 125.3 Units (0.0-20.0); Gastrin, Serum 1354 pg/mL (0-115)
[2023-09-14 00:06] LABS: Beef <0.10 kU/L (Class 0); Chocolate <0.10 kU/L (Class 0); Codfish <0.10 kU/L (Class 0); Corn <0.10 kU/L (Class 0); Egg, Whole <0.10 kU/L (Class 0); Milk (Cow) <0.10 kU/L (Class 0); Mussels <0.10 kU/L (Class 0); Peanut <0.10 kU/L (Class 0); Pork <0.10 kU/L (Class 0); Salmon <0.10 kU/L (Class 0); Shrimp <0.10 kU/L (Class 0); Soybean <0.10 kU/L (Class 0); Tuna <0.10 kU/L (Class 0); Wheat <0.10 kU/L (Class 0)
== END | disposition home or self-care (01) ==
LOC: LAB 13:24
PROVIDERS: PCP Family Medicine; Referring Provider Internal Medicine Gastroenterology; Visit Provider Internal Medicine Gastroenterology
DX: K21.00 Gastro-esophageal reflux disease with esophagitis, without bleeding (principal); D18.03 Hemangioma of intra-abdominal structures
CPT/HCPCS: 36415; 82607; 82746; 82941; 83516; 86003; 86005

== ENCOUNTER → 2023-09-10 | Outpatient (CLI) | payer OTHER, SELFPAY ==
--- NOTE | 2023-09-10 09:48 | NM_ITS ---
CLINICAL: 23-year-old female with history of right upper quadrant abdominal pain. RADIONUCLIDE HEPATOBILIARY SCINTIGRAPHY COMPARISON: CT of the abdomen-pelvis report 08/27/2023 FINDINGS: Following the intravenous administration of 5.4 mCi of 99m Tc Mebrofenin, hepatobiliary images reveal: 1. Relatively prompt and homogeneous radiopharmaceutical concentration is noted by a normal sized liver. No parenchymal defects are identified. 2. Gallbladder activity is identified at 5 minutes post radiopharmaceutical administration. 3. Small intestinal tract is observed at 45 minutes following tracer injection. 4. Washout of the radiopharmaceutical by the hepatic parenchyma appears qualitatively normal. Cholecystokinin (0.02 ug/kg) was administered intravenously over a 30-minute period. The post CCK gallbladder ejection fraction calculated at 22 minutes following Cholecystokinin administration was noted to be 40.0 % (normal greater than 35%). NM/Hepatobilliary Img w/Pharm Int IMPRESSION: 1. ABNORMAL 99m Tc Mebrofenin hepatobiliary imaging examination with Cholecystokinin. A. A gallbladder ejection fraction calculated to be less than 35% following the administration of Cholecystokinin is consistent with the presence of functional hepatobiliary disease (gallbladder and/or sphincter of Oddi dyskinesia) and/or organic hepatobiliary disease (chronic acalculous cholecystitis and/or cystic duct syndrome) in patients with intermediate to high pretest probabilities of hepatobiliary illness. (Odilon Corral et al, Journal of Nuclear Medicine 32:1695, 1991). Electronically Signed: Lawson Parra DO at 23:49 EST ,
== END | disposition home or self-care (01) ==
LOC: NM 09:48
PROVIDERS: PCP Family Medicine; Referring Provider Internal Medicine Gastroenterology; Visit Provider Internal Medicine Gastroenterology
DX: K59.00 Constipation, unspecified (principal); E87.6 Hypokalemia
CPT/HCPCS: 78227; A9537; J2805; J3490

== ENCOUNTER 2023-09-12 10:59 | Emergency (ER) | payer OTHER, SELFPAY ==
[2023-09-12 11:01] VITALS: BP 116/79; PULSE 97; RESP 14; TEMP 36.4; O2SAT 99; BMI 22.1
[2023-09-12 12:09] LABS: Absolute Lymphocyte Count 1.12 X10^3/uL (0.83-4.51); Absolute Neutrophil Count 4.3 X10^3/uL (2.0-7.7); Basophil# 0.01 X10^3/uL; Basophil% 0.2 % (0-1); Hematocrit 39.3 % (37-47); Hemoglobin 12.9 g/dL (12.0-15.0); Lymphocyte # 1.12 X10^3/ul (0.83-4.51); Lymphocyte % 19.4 % (19-41); Mean Corp Hgb Conc 32.8 g/dL (32-36); Mean Corpuscular Hgb 28.6 pg (27.0-32.0); Mean Corpuscular Volume 87.1 fL (81-99); Mean Platelet Vol. 10.2 fl (6.2-12.0); Monocyte# 0.35 X10^3/uL; Monocyte% 6.1 % (0-10); NRBC Flagged by Analyzer 0 % (0-5); Neutrophil # 4.27 X10^3/uL (2.7-7.7); Neutrophil % 74.1 % (47-70); Platelet Count 197 K/mm3 (150-450); RBC Distribution Width CV 11.8 % (11.6-14.6); RBC Distribution Width SD 37.7 fl (35.1-43.9); Red Blood Count 4.51 M/mm3 (4.2-5.4); White Blood Count 5.8 K/mm3 (4.4-11.0)
[2023-09-12 12:47] LABS: AST(SGOT) 19 U/L (15-37); Alanine Aminotransfer ALT/SGPT 19 U/L (13-56); Alkaline Phosphatase 43 U/L (45-117); Anion Gap 2 (5-15); BUN 10 mg/dL (7-18); BUN/Creat Ratio 14.1 RATIO (10-20); Bilirubin, Direct 0.13 mg/dL (0.00-0.30); Calcium,Total 9.2 mg/dL (8.5-10.1); Chloride 108 mmol/L (98-107); Creatinine, Serum 0.71 mg/dL (0.55-1.02); EST Glomerular Filtration Rate 110 mL/min (>60); Est Glom Filt Rate - Afr Amer 133 mL/min (>60); Estimated Creatinine Clearance 94.58 ml/min; Globulin 2.8 g/dL (2.2-4.2); Glucose 91 mg/dL (74-106); Lipase 23 U/L (13-75); Potassium 3.6 mmol/L (3.5-5.1); Protein, Total 6.8 g/dL (6.4-8.2); Sodium Level 140 mmol/L (136-145)
[2023-09-12 12:59] VITALS: BP 115/69; PULSE 79; RESP 13; O2SAT 99
[2023-09-12] MEDS: Ondansetron 4 MG/2 ML Vial IV (13:29)
[2023-09-12 14:00] VITALS: BP 116/80
[2023-09-12] MEDS: Dicyclomine 10 MG Capsule 20 MG PO (15:34)
[2023-09-12] MEDS: Ketorolac 15 MG/ML Vial IV (15:35)
[2023-09-12 15:43] VITALS: BP 116/79; PULSE 86; RESP 14; TEMP 36.5; O2SAT 99
--- NOTE | 2023-09-12 16:08 | EDS_ITS ---
HPI HPI - GI History of Present Illness Chief Complaint: Abd Pain Narrative Narrative: 23-year-old female reporting that she was sent to the emergency room for evaluation from Dr. Lawrence's office for continued/nausea and abdominal pain. Patient has had blood work done by Dr. Lawrence and she states that her tumor markers are elevated, her potassium has been low and she is on supplements for this. She states takes 10 mill equivalents daily. He states she has increased gastrin secretion on her lab work and she has an abnormal HIDA scan. Patient states that she was told to go to the emergency room today to be transferred to another facility as it was believed that she had a gastrinoma. This was not Dr. Benson who told her this. This was another physician at the hospital. Patient states that she wants to find answers. Denies any fevers. Denies any change in pain. She has Zofran at home and she is on Protonix. [facility] Medical History Constipation Elevated transaminase level Environmental allergies Epilepsy GERD (gastroesophageal reflux disease) Headaches, cluster Narcolepsy POTS (postural orthostatic tachycardia syndrome) Home Medications methylphenidate HCl 18 mg tablet,extended release 24 hr (Concerta) 18 mg PO DAILY 05/09/21 [History Last Taken 06/09/23] propranolol 20 mg tablet 20 mg PO TID 05/09/21 [History Last Taken 06/09/23] loratadine 10 mg tablet (Allerclear) 10 mg PO QHS 06/09/23 [History Last Taken 06/08/23] pantoprazole 40 mg tablet,delayed release 40 mg PO DAILY #30 tabs 09/08/23 [Rx Last Taken Unknown] potassium chloride 10 mEq capsule,extended release 10 meq PO DAILY 09/12/23 [History Last Taken Unknown] propranolol 60 mg capsule,24 hr,extended release 60 mg PO DAILY 09/12/23 [History Last Taken Unknown] scopolamine base 1 mg over 3 days transdermal patch 1 patch transdermal Q3D PRN nausea and vomiting #4 ea 09/12/23 [Rx Last Taken Unknown] Allergy/AdvReac Type Severity Reaction Status Date / Time cefdinir Allergy Intermediate Swelling Verified 09/12/23 11:00 gluten Allergy Upset Verified 09/12/23 11:00 Stomach latex Allergy Hives Verified 09/12/23 11:00 midazolam HCl [From Versed] Allergy Other Verified 09/12/23 11:00 Penicillins Allergy Hives Verified 09/12/23 11:00 Family History Father Migraine Daughter Migraine Mother Migraine Other Anxiety Asthma Hypertension Surgical History History of tonsillectomy and adenoidectomy Social History Smoking Status: Never smoker alcohol intake: never substance use type: does not use what type of physical activity do you participate in: walking and weight training frequency: 3-4 times per week duration: 30-45 minutes/day ROS ROS ED Constitutional Constitutional ED: Denies chills or fever(s) ENT ENT ED: Denies rhinorrhea or sore throat Cardiovascular Cardiovascular: Denies chest pain or palpitations Respiratory/Chest Respiratory/Chest: Denies cough or dyspnea Gastrointestinal Gastrointestinal: Reports abdominal pain and nausea; Denies constipation or diarrhea Genitourinary Genitourinary ED: Denies dysuria or hematuria Musculoskeletal Musculoskeletal: Denies arthralgias or back pain Integumentary Denies abscess or Abrasions Neurologic Neurologic: Denies headache(s) Psychiatric Psychiatric: Denies anxiety or depression Endocrine Endocrinology: Denies polydipsia or polyphagia EXAM Physical Exam Const Vital Signs: 09/12/23 11:01 09/12/23 12:59 09/12/23 14:00 Temperature 97.5 F L Temperature Source Temporal Pulse Rate 97 79 Respiratory Rate 14 13 Blood Pressure 116/79 115/69 116/80 Blood Pressure Mean 91 84 92 Pulse Ox 99 99 Oxygen Delivery Method Room Air Room Air 09/12/23 15:43 Temperature 97.7 F L Temperature Source Pulse Rate 86 Respiratory Rate 14 Blood Pressure 116/79 Blood Pressure Mean 91 Pulse Ox 99 Oxygen Delivery Method Positive well nourished General Appearance ED: NAD HEENT Reports moist mucous membranes normocephalic Eyes PERRL and EOMs intact bilaterally General Eye ED: Negative for scleral icterus Resp normal respiratory effort Cardio regular rate and regular rhythm GI GI Narrative: No reproducible tenderness on abdominal exam. Neuro CN's II-XII intact bilaterally Sensorium / Orientation: alert Motor Exam: strength 5/5 throughout Psych mental status grossly normal and thought process normal MDM MDM MDM Narrative Medical decision making narrative: Patient presenting for reevaluation of abdominal discomfort, nausea. She states her tumor markers are elevated and her labs have been abnormal and she was told to come to the ER both by Dr. Lawrence's office and by another hospital is here who recommended she be transferred to another facility out of concern for gastrinoma. Obtain lab work including CBC, CMP, lipase and this is all within normal limits and spoke with Dr. Lawrence regarding the case. He states that she may need a an pentetreotide scan in the future however her labs could be falsely elevated by being on chronic pantoprazole and states that she would need to go off of the pantoprazole for at least 8 weeks in order to ensure that upon retesting this was not falsely elevated by the pantoprazole. He also states that although she has an abnormal HIDA scan in the sense that her gallbladder slow her ejection fraction is normal he is in think she needs anything acute. Ice expressed to the patient all of this at least twice and they still had a lot of questions and initially became angry about his situation and I explained to them that I am trying to help them but that although they want everything to be done as quickly as possible there is no not necessarily an emergent need for all the stuff and since she will need 8 weeks to clear this medication that likely they will need to follow-up as an outpatient. I spoke with Dr. Lawrence regarding this again and he came down and explained the same thing to the patient and they seem to be amenable to this however when I went back into the room the patient asked me if she would benefit from an upper endoscopy states that he got the pantoprazole and I relayed this again to Dr. Benson who stated she did not need an upper endoscopy. He recommended that she go home on Bentyl he had already written a prescription for this.He asked me to please write a prescription for scopolamine to help with her symptoms. All this was again expressed to the patient and they had no further questions and she was discharged home. Impression: 1. Abdominal pain 2. Nausea Lab Data Attestation: I reviewed the patient's lab results. Labs: Laboratory Results - last 24 hr 09/12/23 11:46 WBC 5.8 RBC 4.51 Hgb 12.9 Hct 39.3 MCV 87.1 MCH 28.6 MCHC 32.8 RDW Std Deviation 37.7 RDW Coeff of Sheryl 11.8 Plt Count 197 MPV 10.2 Immature Gran % (Auto) 0.200 Neut % (Auto) 74.1 H Lymph % (Auto) 19.4 [place] % (Auto) 6.1 Eos % (Auto) 0.0 Baso % (Auto) 0.2 Absolute Neuts (auto) 4.3 Absolute Lymphs (auto) 1.12 Nucleated RBC % 0 Sodium 140 Potassium 3.6 Chloride 108 H Carbon Dioxide 30.0 Anion Gap 2 L BUN 10 Creatinine 0.71 Estim Creat Clear Calc 94.58 Est GFR (MDRD) Af Amer 133 Est GFR (MDRD) Non-Af 110 BUN/Creatinine Ratio 14.1 Glucose 91 Calcium 9.2 Total Bilirubin 0.50 Direct Bilirubin 0.13 AST 19 ALT 19 Alkaline Phosphatase 43 L Total Protein 6.8 Albumin 4.0 Globulin 2.8 Lipase 23 Discharge Plan Triage Chief Complaint: Abd Pain ED Provider: Francis Cunningham Dx/Rx/DC Orders Instructions: ED Abdominal Pain Unkn Cause Fem Prescriptions: New scopolamine base 1 mg over 3 days patch 3 day 1 patch transdermal Q3D PRN (Reason: nausea and vomiting) Qty: 4 0RF No Action propranolol 20 mg Tablet 20 mg PO TID methylphenidate HCl [Concerta] 18 mg Tablet Extended Release 24hr 18 mg PO DAILY loratadine [Allerclear] 10 mg tablet 10 mg PO QHS propranolol 60 mg capsule,extended release 24 hr 60 mg PO DAILY Patient Comments: Take 1 capsule by mouthTonce daily.S potassium chloride 10 mEq capsule, extended release 10 meq PO DAILY Patient Comments: TAKE 1 CAPSULE BY MOUTHIONCE DAILY pantoprazole 40 mg tablet,delayed release (DR/EC) 40 mg PO DAILY Qty: 30 2RF Primary Care Provider: Catina Alford Referrals: Catina Alford, DO [Primary Care Provider] - Disposition Disposition: Home, Self Care Discharge Date/Time: 09/12/23 15:46
== END 2023-09-12 15:46 | disposition home or self-care (01) ==
PROVIDERS: Emergency Provider Student in an Organized Health Care Education/Training Program; PCP Family Medicine; Referring Provider Student in an Organized Health Care Education/Training Program; Visit Provider Student in an Organized Health Care Education/Training Program
DX: R10.9 Unspecified abdominal pain (principal); R11.0 Nausea; I49.8 Other specified cardiac arrhythmias; Z79.899 Other long term (current) drug therapy; K21.9 Gastro-esophageal reflux disease without esophagitis
CPT/HCPCS: 80048; 80076; 83690; 85025; 96374; 96375; 99283; J2405

== ENCOUNTER → 2023-09-12 | Outpatient (CLI) | payer OTHER, SELFPAY ==
--- OUTSIDE RECORDS SUMMARY | 2023-09-12 06:53 | XMS RPT_ITS | CCD ---
Author Name Unknown Address [address] [place] [address] Organization [facility] Care Team Providers Care Computer Operations Analyst Name Role Phone TOMER PIÑA K Unavailable [...] reactions to drug (disorder) 03-28-20 07 Swelling [facility] Repository (1 source) Midazolam; Translations: [MIDAZOLAM] Drug Allergy 04-06-20 15 AOF [facility] Repository (20 sources) Penicillins; Translations: [PENICILLINS] Propensity to adverse reactions to drug (disorder) 07-23-19 06 Rash [facility] Repository (1 source) House dust mite; Translations: [DUST MITES] allergy to substance 02-03-20 [facility] Work Phone: (1 source) [facility] Animalia drug allergy 02-03-20 19 [facility] Work Phone: (1 source) Midazolam Drug Allergy 02-03-20 19 [facility] Work Phone: (4 sources) Midazolam; Translations: [MIDAZOLAM HCL] Drug Allergy 02-03-20 12 change in mental status [facility] Work Phone: (1 source) Mold Extract; Translations: [MOLD] Drug Allergy 02-03-20 19 [facility] Work Phone: (1 source) Penicillin Drug Allergy 03-14-20 15 hives [facility] Work Phone: (1 source) PLANT POLLENS; Translations: [PLANT POLLENS] allergy to substance 02-03-20 [facility] Work Phone: (20 sources) cefdinir; Translations: [CEFDINIR] Drug Allergy 08-31-19 21 Swelling [facility] (20 sources) Midazolam Drug Allergy 02-03-20 12 Mental Status Change [facility] (20 sources) Wheat gluten extract; Translations: [GLUTEN] Drug Allergy 04-12-20 20 GI Upset [facility] (20 sources) Acetaminophen / HYDROcodone; Translations: [HYDROCODONE-ACET AMINOPHEN] Drug Allergy 05-29-20 22 Swelling [facility] (20 sources) Prochlorperazine; Translations: [PROCHLORPERAZINE ] Drug Allergy 11-05-19 23 Intolerance [facility] Medications Current Medications Medication Drug Class(es) [...] 157.5 cm Clifford Nicolas DPM Work Phone: [facility] 05-23-2023 14:41-0500 Body weight 52.16 kg Clifford Nicolas DPM Work Phone: [facility] 05-23-2023 14:41-0500 Respiratory rate 20 /min Clifford Nicolas DPM Work Phone: [facility] 04-30-2023 09:58-0400 Body height 157.5 cm Clifford Nicolas DPM Work Phone: [facility] 04-30-2023 09:58-0400 Body weight 52.16 kg Clifford Nicolas DPM Work Phone: [facility] 04-30-2023 09:58-0400 Respiratory rate 18 /min Clifford Nicolas DPM Work Phone: [facility] 01-15-2023 08:14-0400 Body height 157.5 cm Clifford Nicolas DPM Work Phone: [facility] 01-15-2023 08:14-0400 Body weight 52.16 kg Clifford Nicolas DPM Work Phone: [facility] 01-15-2023 08:14-0400 Respiratory rate 16 /min Clifford Nicolas DPM Work Phone: [facility] 12-04-2022 08:42-0400 Body height 157.5 cm Clifford Nicolas DPM Work Phone: [facility] 12-04-2022 08:42-0400 Body weight 52.16 kg Clifford Nicolas DPM Work Phone: [facility] 12-04-2022 08:42-0400 Respiratory rate 16 /min Clifford Nicolas DPM Work Phone: [facility] 11-28-2022 07:45-0400 Body temperature 97.59 [degF] Gurdeep Christine MD Work Phone: [facility] 11-28-2022 07:45-0400 Body weight 52.28 kg Gurdeep Christine MD Work Phone: [facility] 11-28-2022 07:45-0400 Heart rate 70 /min Gurdeep Christine MD Work Phone: [facility] 11-28-2022 07:45-0400 Respiratory rate 18 /min Gurdeep Christine MD Work Phone: [facility] 10-25-2022 10:45-0400 Body temperature 97.3 [degF] Clifford Nicolas DPM Work Phone: [facility] 10-25-2022 10:45-0400 Diastolic blood pressure 75 mm[Hg] Clifford Nicolas DPM Work Phone: [facility] 10-25-2022 10:45-0400 Heart rate 79 /min Clifford Nicolas DPM Work Phone: [facility] 10-25-2022 10:45-0400 Respiratory rate 23 /min Clifford Nicolas DPM Work Phone: [facility] 10-25-2022 10:45-0400 SaO2% (BldA) [Mass fraction] 100 % Clifford Nicolas DPM Work Phone: [facility] 10-25-2022 10:45-0400 Systolic blood pressure 111 mm[Hg] Clifford Nicolas DPM Work Phone: [facility] 10-25-2022 07:12-0400 Body height 157.5 cm Clifford Nicolas DPM Work Phone: [facility] 10-25-2022 07:12-0400 Body weight 54.43 kg Clifford Nicolas DPM Work Phone: [facility] 10-18-2022 09:36-0400 Body height 157.5 cm Pst 1 [facility] 10-18-2022 09:36-0400 Body temperature 98.8 [degF] Pst 1 [facility] 10-18-2022 09:36-0400 Body weight 54.43 kg Pst 1 [facility] 10-18-2022 09:36-0400 Diastolic blood pressure 82 mm[Hg] Pst 1 [facility] 10-18-2022 09:36-0400 Heart rate 87 /min Pst 1 [facility] 10-18-2022 09:36-0400 Respiratory rate 18 /min Pst 1 [facility] 10-18-2022 09:36-0400 SaO2% (BldA) [Mass fraction] 100 % Pst 1 [facility] 10-18-2022 09:36-0400 Systolic blood pressure 114 mm[Hg] Pst 1 [facility] 09-04-2022 08:12-0500 Body height 157.5 cm Clifford Nicolas DPM Work Phone: [facility] 09-04-2022 08:12-0500 Body weight 55.34 kg Clifford Nicolas DPM Work Phone: [facility] 09-04-2022 08:12-0500 Respiratory rate 20 /min Clifford Nicolas DPM Work Phone: [facility] 08-09-2022 14:41-0500 Body height 157.5 cm Clifford Nicolas DPM Work Phone: [facility] 08-09-2022 14:41-0500 Body weight 54.43 kg Clifford Nicolas DPM Work Phone: [facility] 08-09-2022 14:41-0500 Respiratory rate 18 /min Clifford Nicolas DPM Work Phone: [facility] 07-18-2022 08:51-0500 Body height 157.5 cm Clifford Nicolas DPM Work Phone: [facility] 07-18-2022 08:51-0500 Body temperature 98.2 [degF] Clifford Nicolsa DPM Work Phone: [facility] 07-18-2022 08:51-0500 Body weight 54.43 kg Clifford Nicolas DPM Work Phone: [facility] 06-05-2022 09:20-0500 Body height 157.5 cm Clifford Nicolas DPM Work Phone: [facility] 06-05-2022 09:20-0500 Body weight 53.52 kg Clifford Nicolas DPM Work Phone: [facility] 06-05-2022 09:20-0500 Respiratory rate 20 /min Clifford Nicolas DPM Work Phone: [facility] 02-11-2022 10:17-0400 Body temperature 98.01 [degF] Zari Noblesericsofiya ACCOUNTS RECEIVABLE ACCOUNTANT.TOLL OPERATOR Work Phone: [facility] 02-11-2022 10:17-0400 Diastolic blood pressure 81 mm[Hg] Zari Nobleserich ACCOUNTS RECEIVABLE ACCOUNTANT.TOLL OPERATOR Work Phone: [facility] 02-11-2022 10:17-0400 Heart rate 75 /min Zrai Diederich ACCOUNTS RECEIVABLE ACCOUNTANT.TOLL OPERATOR Work Phone: [facility] 02-11-2022 10:17-0400 Respiratory rate 16 /min Zaripatrick Nobleserich ACCOUNTS RECEIVABLE ACCOUNTANT.TOLL OPERATOR Work Phone: [facility] 02-11-2022 10:17-0400 SaO2% (BldA) [Mass fraction] 97 % Zari Hager ACCOUNTS RECEIVABLE ACCOUNTANT.TOLL OPERATOR Work Phone: [facility] 02-11-2022 10:17-0400 Systolic blood pressure 117 mm[Hg] Zari Hager ACCOUNTS RECEIVABLE ACCOUNTANT.TOLL OPERATOR Work Phone: [facility] 11-26-2021 08:45-0400 Body mass index (BMI) [Percentile] Per age and sex 62.13 % Yahaira Arnulfo ACCOUNTS RECEIVABLE ACCOUNTANT.TOLL OPERATOR Work Phone: [facility] 11-26-2021 08:45-0400 Body temperature 98.6 [degF] Yahaira Arnulfo ACCOUNTS RECEIVABLE ACCOUNTANT.TOLL OPERATOR Work Phone: [facility] 11-26-2021 08:45-0400 Body weight 54.43 kg Yahaira Arnulfo ACCOUNTS RECEIVABLE ACCOUNTANT.TOLL OPERATOR Work Phone: [facility] 11-26-2021 08:45-0400 Diastolic blood pressure 62 mm[Hg] Yahaira Arnulfo ACCOUNTS RECEIVABLE ACCOUNTANT.TOLL OPERATOR Work Phone: [facility] 11-26-2021 08:45-0400 Heart rate 106 /min Yahaira Arnulfo ACCOUNTS RECEIVABLE ACCOUNTANT.TOLL OPERATOR Work Phone: [facility] 11-26-2021 08:45-0400 Respiratory rate 16 /min Yahaira Arnulfo ACCOUNTS RECEIVABLE ACCOUNTANT.TOLL OPERATOR Work Phone: [facility] 11-26-2021 08:45-0400 SaO2% (BldA) [Mass fraction] 99 % Yahaira Arnulfo ACCOUNTS RECEIVABLE ACCOUNTANT.TOLL OPERATOR Work Phone: [facility] 11-26-2021 08:45-0400 Systolic blood pressure 102 mm[Hg] Yahaira Arnulfo ACCOUNTS RECEIVABLE ACCOUNTANT.TOLL OPERATOR Work Phone: [facility] 10-09-2021 15:07-0400 Body height 154.9 cm Clifford ALMONTE Work Phone: [facility] 10-09-2021 15:07-0400 Body mass index (BMI) [Percentile] Per age and sex 58.61 % Clifford Valenzuela DPM Work Phone: [facility] 10-09-2021 15:07-0400 Body weight 53.52 kg Clifford Valenzuela DPM Work Phone: [facility] 10-09-2021 15:07-0400 Respiratory rate 17 /min Clifford Valenzuela DPM Work Phone: [facility] 10-01-2021 09:29-0400 Body height 157 cm Beckie Juarez ACCOUNTS RECEIVABLE ACCOUNTANT.TOLL OPERATOR Work Phone: [facility] 10-01-2021 09:29-0400 Body mass index (BMI) [Percentile] Per age and sex 53.08 % Beckie Juarez ACCOUNTS RECEIVABLE ACCOUNTANT.TOLL OPERATOR Work Phone: [facility] 10-01-2021 09:29-0400 Body temperature 98.2 [degF] Beckie Juarez ACCOUNTS RECEIVABLE ACCOUNTANT.TOLL OPERATOR Work Phone: [facility] 10-01-2021 09:29-0400 Body weight 53.75 kg Beckie Juarez ACCOUNTS RECEIVABLE ACCOUNTANT.TOLL OPERATOR Work Phone: [facility] 10-01-2021 09:29-0400 Diastolic blood pressure 76 mm[Hg] Beckie Juarez ACCOUNTS RECEIVABLE ACCOUNTANT.TOLL OPERATOR Work Phone: [facility] 10-01-2021 09:29-0400 Heart rate 76 /min Beckie Juarez ACCOUNTS RECEIVABLE ACCOUNTANT.TOLL OPERATOR Work Phone: [facility] 10-01-2021 09:29-0400 Respiratory rate 16 /min Beckie Juarez ACCOUNTS RECEIVABLE ACCOUNTANT.TOLL OPERATOR Work Phone: [facility] 10-01-2021 09:29-0400 Systolic blood pressure 102 mm[Hg] Beckie Juarez ACCOUNTS RECEIVABLE ACCOUNTANT.TOLL OPERATOR Work Phone: [facility] NEGATED: Highlighted [id number] 13:39-0400 BMI (Body Mass Index) 23.86 kg/m2 [facility] Work Phone: NEGATED: Highlighted [id number] 13:39-0400 Body weight 58.97 kg [facility] Work Phone: NEGATED: Highlighted [id number] 13:39-0400 Body weight 59 kg [facility] Work Phone: NEGATED: Highlighted [id number] 13:39-0400 BP Diastolic 80 mm[Hg] [facility] Work Phone: NEGATED: Highlighted [id number] 13:39-0400 BP Systolic 118 mm[Hg] [facility] Work Phone: NEGATED: Highlighted [id number] 13:39-0400 Heart rate 2+ [facility] Work Phone: NEGATED: Highlighted [id number] 13:39-0400 Height 157.48 cm [facility] Work Phone: NEGATED: Highlighted [id number] 13:39-0400 Height 157 cm [facility] Work Phone: NEGATED: Highlighted [id number] 13:39-0400 Pulse (Heart Rate) 80 /min [facility] Work Phone: Encounters Encounter Date Encounter Type Care Provider Facility Start: 06-24-2023 ambulatory Zoran MEZA.TOLL OPERATOR Work Phone: [facility] Start: 06-24-2023 Follow-up encounter Zoran Medina on ACCOUNTS RECEIVABLE ACCOUNTANT.TOLL OPERATOR Work Phone: Neurology Procedures Date Procedure Procedure [...] 02-09-2022 Adult depression screening assessment Zari Hager ACCOUNTS RECEIVABLE ACCOUNTANT.TOLL OPERATOR Work Phone: Start: 12-30-2021 Adult depression screening assessment Eileen Boswelle Work Phone: Start: 10-08-2021 Skin test tuberculos is intradermal Alannah Guthrie MD Work Phone: Start: 10-01-2021 Skin test tuberculos is intradermal Beckie Juarez ACCOUNTS RECEIVABLE ACCOUNTANT.TOLL OPERATOR Work Phone: Start: 10-01-2021 Adult depression screening assessment Beckie Juarez ACCOUNTS RECEIVABLE ACCOUNTANT.TOLL OPERATOR Work Phone: Start: 09-12-2020 Adult depression screening assessment Clifford Nicolas DPM Work Phone: Start: 02-05-2019 End: 02-05-2019 Adolescent tobacco screening was negative - non user Albert Hilario MD Work Phone: NEGATED: Highlighted rowStart: 02-05-2019 End: 02-05-2019 Documentation of current medications Bob [facility] Plan of Treatment Date Care Activity Detail Author Start: 01-20-2025 Urine microalbumin profile [facility] Start: 11-29-2023 ANNUAL PCP TEAM SUPERVISORY CIVIL ENGINEER FROYLAN DISEASE VISIT ANNUAL PCP TEAM CHRONIC DISEASE VISIT [facility] Start: 11-21-2023 ASTHMA ACTION PLAN ASTHMA ACTION BIENVENIDO N [facility] Start: 11-01-2023 ANNUAL PCP TEAM SUPERVISORY CIVIL ENGINEER FROYLAN DISEASE VISIT ANNUAL PCP TEAM CHRONIC DISEASE VISIT [facility] Start: 08-29-2023 ANNUAL PCP TEAM SUPERVISORY CIVIL ENGINEER FROYLAN DISEASE VISIT ANNUAL PCP TEAM CHRONIC DISEASE VISIT [facility] Start: 03-25-2023 ANNUAL PCP TEAM SUPERVISORY CIVIL ENGINEER FROYLAN DISEASE VISIT ANNUAL PCP TEAM CHRONIC DISEASE VISIT [facility] Start: 03-07-2023 Covid-19 Vaccine ( season) Covid-19 Vaccine ( season) [facility] Start: 03-07-2023 Influenza vaccination INFLUENZA (#1) [facility] Start: 02-09-2023 Adult depression screening assessment DEPRESSION SCREENING [facility] Start: 12-30-2022 Adult depression screening assessment DEPRESSION SCREENING [facility] Start: 10-10-2022 ANNUAL PCP TEAM SUPERVISORY CIVIL ENGINEER FROYLAN DISEASE VISIT ANNUAL PCP TEAM CHRONIC DISEASE VISIT [facility] Start: 10-08-2022 ANNUAL PCP TEAM SUPERVISORY CIVIL ENGINEER FROYLAN DISEASE VISIT ANNUAL PCP TEAM CHRONIC DISEASE VISIT [facility] Start: 10-03-2022 ANNUAL PCP TEAM SUPERVISORY CIVIL ENGINEER FROYLAN DISEASE VISIT ANNUAL PCP TEAM CHRONIC DISEASE VISIT [facility] Start: 10-01-2022 Adult depression screening assessment DEPRESSION SCREENING [facility] Start: 10-01-2022 ANNUAL PCP TEAM SUPERVISORY CIVIL ENGINEER FROYLAN DISEASE VISIT ANNUAL PCP TEAM CHRONIC DISEASE VISIT [facility] Start: 10-01-2022 ASTHMA CONTROL TEST ASTHMA CONTROL T EST [facility] Start: 08-27-2022 ANNUAL PCP TEAM SUPERVISORY CIVIL ENGINEER FROYLAN DISEASE VISIT ANNUAL PCP TEAM CHRONIC DISEASE VISIT [facility] Start: 07-07-2022 DEPRESSION ASSESSMENT DEPRESSION ASS ESSMENT [facility] Start: 03-07-2022 Influenza vaccination INFLUENZA (#1) [facility] Start: 01-14-2022 End: 03-16-2022 aPTT in Platelet poor plasma by Coagulation assay [facility] Work Phone: Immunizations Immunization Date Immunization Notes Care Provider Sara lafleur 03-25-2022 influenza, injectabl e, quadrivalent, contains preservative Clifford Valenzuela DPGabrielle Work Phone: [facility] 05-12-2021 influenza, injectabl e, quadrivalent, contains preservative Clifford Valenzuela DPM Work Phone: [facility] 10-21-2020 COVID-19 vaccine, ag e 12+ yr (SquadMail-[employer]NT[employer]timeBoard - [facility]) Clifford Valenzuela DPGabrielle Work Phone: [facility] 09-30-2020 COVID-19 vaccine, ag e 12+ yr (PFIZER-BIONTRealtimeBoard - PURPLE TOP) Clifford Valenzuela DPM Work Phone: [facility] 08-19-2020 varicella virus vaccine Edie Juarez ACCOUNTS RECEIVABLE ACCOUNTANT.TOLL OPERATOR Work Phone: [facility] 05-19-2020 influenza, injectabl e, quadrivalent, contains preservative Clifford Valenzuela DPM Work Phone: [facility] Work Phone: 01-19-2020 meningococcal polysaccharide (groups A, C, Y and W-135) diphtheria toxoid conjugate vaccine (MCV4P) Clifford Valenzuela DPM Work Phone: [facility] 05-27-2019 influenza, injectabl e, quadrivalent, contains preservative Clifford Valenzuela DPM Work Phone: [facility] Work Phone: 05-28-2016 meningococcal polysaccharide (groups A, C, Y and W-135) diphtheria toxoid conjugate vaccine (MCV4P) Clifford Valenzuela DPM Work Phone: [facility] 04-30-2016 influenza, injectabl e, quadrivalent, contains preservative Clifford Valenzuela DPM Work Phone: [facility] Work Phone: 01-20-2015 tetanus toxoid, redu odilon diphtheria toxoid, and acellular pertussis vaccine, adsorbed Clifford Valenzuela DPM Work Phone: [facility] Work Phone: 05-04-2014 influenza, seasonal, injectable Clifford Valenzuela DPM Work Phone: [facility] 05-16-2012 influenza virus vacc ine, unspecified formulation Clifford Valenzuela DPM Work Phone: [facility] 04-06-2011 influenza virus vacc ine, unspecified formulation Clifford Valenzuela DPM Work Phone: [facility] 05-12-2010 influenza virus vacc ine, unspecified formulation Clifford Valenzuela DPM Work Phone: [facility] 04-08-2009 influenza virus vacc ine, unspecified formulation Clifford Valenzuela DPM Work Phone: [facility] Work Phone: 05-11-2008 influenza virus vacc ine, unspecified formulation Clifford Valenzuela DPM Work Phone: [facility] Work Phone: 09-23-2007 diphtheria, tetanus toxoids and acellular pertussis vaccine Clifford Valenzuela DPM Work Phone: [facility] Work Phone: 09-23-2007 measles, mumps and rubella virus vaccine Clifford Valenzuela DPM Work Phone: [facility] Work Phone: 09-23-2007 poliovirus vaccine, inactivated Clifford Valenzuela DPM Work Phone: [facility] Work Phone: 05-06-2007 influenza virus vacc ine, unspecified formulation Clifford Valenzuela DPM Work Phone: [facility] Work Phone: 05-08-2006 influenza virus vacc ine, unspecified formulation Clifford Valenzuela DPM Work Phone: [facility] Work Phone: 04-12-2004 pneumococcal conjuga te vaccine, 7 valent Clifford Valenzuela DPM Work Phone: [facility] Work Phone: 12-09-2003 diphtheria, tetanus toxoids and acellular pertussis vaccine Clifford Valenzuela DPM Work Phone: [facility] Work Phone: 12-09-2003 varicella virus vaccine Canelo guerrero Nicolas DPM Work Phone: [facility] Work Phone: 09-07-2003 haemophilus influenz ae type b vaccine, HbOC conjugate Clifford Valenzuela DPM Work Phone: [facility] Work Phone: 09-07-2003 measles, mumps and rubella virus vaccine Clifford Valenzuela DPM Work Phone: [facility] Work Phone: 06-14-2003 hepatitis B vaccine, pediatric or pediatric/adolescent dosage Clifford Valenzuela DPM Work Phone: [facility] Work Phone: 06-01-2003 influenza virus vacc ine, unspecified formulation Clifford Valenzuela DPM Work Phone: [facility] Work Phone: 05-02-2003 influenza virus vacc ine, unspecified formulation Clifford Valenzuela DPM Work Phone: [facility] Work Phone: 03-10-2003 diphtheria, tetanus toxoids and acellular pertussis vaccine Clifford Valenzuela DPM Work Phone: [facility] Work Phone: 03-10-2003 haemophilus influenz ae type b vaccine, HbOC conjugate Clifford Valenzuela DPM Work Phone: [facility] Work Phone: 03-10-2003 pneumococcal conjuga te vaccine, 7 valent Clifford Valenzuela DPM Work Phone: [facility] Work Phone: 03-10-2003 poliovirus vaccine, inactivated Clifford Valenzuela DPM Work Phone: [facility] Work Phone: 01-11-2003 diphtheria, tetanus toxoids and acellular pertussis vaccine Clifford Valenzuela DPM Work Phone: [facility] Work Phone: 01-11-2003 haemophilus influenz ae type b vaccine, HbOC conjugate Clifford Valenzuela DPM Work Phone: [facility] Work Phone: 01-11-2003 pneumococcal conjuga te vaccine, 7 valent Clifford Valenzuela DPM Work Phone: [facility] Work Phone: 01-11-2003 poliovirus vaccine, inactivated Clifford Valenzuela DPM Work Phone: [facility] Work Phone: 2002 diphtheria, tetanus toxoids and acellular pertussis vaccine Clifford Valenzuela DPM Work Phone: [facility] Work Phone: 2002 haemophilus influenz ae type b vaccine, HbOC conjugate Clifford Valenzuela DPM Work Phone: [facility] Work Phone: 2002 pneumococcal conjuga te vaccine, 7 valent Clifford Valenzuela DPM Work Phone: [facility] Work Phone: 2002 poliovirus vaccine, inactivated Clifford Valenzuela DPM Work Phone: [facility] Work Phone: 2002 hepatitis B vaccine, pediatric or pediatric/adolescent dosage Clifford Valenzuela DPM Work Phone: [facility] Work Phone: 2002 hepatitis B vaccine, pediatric or pediatric/adolescent dosage Clifford Valenzuela DPM Work Phone: [facility] Work Phone: Payers Date Payer Category Payer Private Health Insurance [id number] 2022 Private Health Insurance [id number] 2022 Private Health Insurance [id number] 2018 Unknown DEANDRE JIMENES PPO [id number] 2018-Present [phone] [facility] [id number] [place] [address] PPO [id number] 2011 Unknown [id number] 1977 Unknown [id number] 1977 Unknown [id number] 1977 Unknown [id number] 1977 Unknown [id number] 1977 Unknown [id number] 1976 Unknown [id number] 1976 Unknown [id number] 1976 Unknown [id number] 1976 Unknown [id number] Unknown [id number] Unknown [id number] Social History Date Type Detail Facility Start: 02-05-2019 End: 02-05-2019 Assertion Unknown if ever smoked [facility] Work Phone: Start: 08-29-2022 Tobacco smoking stat [facility] Never smoked tobacco [facility] Start: 08-27-2021 End: 06-23-2023 Alcohol intake Current non-drinker of alcohol (finding) [facility] Start: 2002 Sex Assigned At Female C [facility] Start: 09-15-2021 End: 09-25-2021 Exposure to SARS-CoV-2 (event) Unable to assess [facility] Start: 10-01-2021 History SDOH Alcohol Frequency 1 [facility] Start: 10-01-2021 History SDOH Alcohol Std Drinks 98 [facility] Start: 10-01-2021 History SDOH Social Connections Phone 5 [facility] Start: 10-01-2021 History SDOH Social Connections Get Together 4 [facility] Start: 10-01-2021 History SDOH Social Connections Rastafarian 3 [facility] Start: 10-01-2021 History SDOH Social Connections Living 7 [facility] Start: 10-01-2021 History SDOH Physica l Activity MPS 6 [facility] Start: 10-01-2021 History SDOH Stress 2 [facility] Start: 09-21-2021 End: 06-05-2022 Exposure to SARS-CoV-2 (event) Not sure [facility] Start: 08-29-2022 Tobacco use and exposure Smokeless tobacco non-user [facility] Start: 10-01-2021 End: 11-06-2022 History of Social function [facility] Start: 10-01-2021 End: 11-06-2022 Social connection and isolation panel [facility] Do you belong to any clubs or organizations such as uatsdin groups, unions, fraternal or athletic groups, or school groups? Yes [facility] Are you now , , , , never or living with a partner? Never [facility] How often to you hav e a drink containing alcohol? Never [facility] How many standard drinks containing alcohol do you have on a typical day? Patient refused [facility] Do you feel stress - tense, restless, nervous, or anxious, or unable to sleep at night because your mind is troubled all the time - these days [OSQ] Only a little [facility] (I/We) worried lizzy er (my/our) food would run out before (I/we) got money to buy more. Never true [facility] In the past 12 month s, was there a time when you were not able to pay the mortgage or rent on time? No [facility] Start: 05-10-2020 Gender identity Identifies as female gender (finding) [facility] Start: 05-10-2020 Sexual orientation Heterosexua l (finding) [facility] NEGATED: Highlighted rowStart: NINF History of tobacco use Passive smoker [facility] Medical Equipment Procedure Code Equipment Code Equipment Origin al Text Equipment Identifier Dates Mini Headless Sc rew 2.5mm X 40mm [id number] Start: 05-29-2022 Wire Abdullahi .035in 2 Trocar 5.5in Fixation - [id number] Start: 05-29-2022 Mini 2.5mm Heade d Cannulated Screw 40mm [id number] Start: 10-25-2022 Clinical Notes 04-24-2020 to 06-23-2023 Clifford Valenzuela Albert, RILEY - 05/25/2023 9:27 AM ESTPatient InstructionsGrClifford cunningham RILEY Price - 04/30/2023 11:16 AM Janina Baig LPN - 04/30/2023 10:23 AM EDT Note Date & Type Note Facility 06-23-2023 Note HNO ID: [id number] Author: Zoran Beasley APRN.TOLL OPERATOR Service: ? Author Type: Nurse Practitioner Type: [...] she will note the headache returning. Her welfare project manager is requesting [facility] paperwork be filled out for if [...] history includes Allergies (more content not included)... [facility] 05-25-2023 Note HNO ID: [id number] Author: Clifford Valenzuela DPM Service: ? Author [...] plan unless otherwise noted. Clifford Valenzuela DPM, [facility] 05-25-2023 History of Present illness Narrative [...] Valenzuela DPM, FACFAS documented in this encounter [facility] 04-30-2023 Note HNO ID: [id number] Author: Clifford Valenzuela DPM Service: ? Author [...] treatment options fo (more content not included)... [facility] 04-30-2023 Note HNO ID: [id number] Author: Janina Adams LPN Service: ? Author Type: LICENSED NURSE Type: Progress Notes Filed: 05/19/2023 7:39 PM Note Text: Prepared two 3 cc syringes each containing 2.5 cc Lidocaine and 2.5 cc Bupivacaine with 25 gauge needles and gave to MD for injection of bilateral feet - Janina Adams LPN [facility] 04-30-2023 Note HNO ID: [id number] Author: Kenzie Schaefer MA Service: ? Author Type: Firmware Architect Type: Progress Notes Filed: 05/19/2023 7:39 PM [...] bleeding, clots, bleeding disorders. Kenzie Schaefer MA [facility] 04-30-2023 Instructions Cami Thrasher DPM - 04/30/2023 11:17 AM EDT Epsom salt soaks. Band aid and documented in this encounter [facility] 04-30-2023 History of Present illness Narrative [...] Valenzuela DPM Informed Consent Consent Obtained: Verbal Napa Protocol SIGN IN Personnel directly involved with [...] Valenzuela DPM Informed Consent Consent Obtained: Verbal Napa Protocol SIGN IN Personnel directly involved with [...] Kenzie Schaefer MA documented in this encounter [facility] 02-26-2023 Miscellaneous Notes Last OV: 12/03/2022 Last Refill: 08/22/2022 F/U OV: N/A Appropriate for refill. You did take this over in June 2020. Not sure why Dr. Gutiérrez ordered for her in Aug 2022. She did message in and request this. Routed to [place] for review. AZUL Rudd, RN, BA documented in this encounter [facility] 01-20-2023 Miscellaneous Notes Notified pt of message below, she verbalized understanding and denies any questions at this time. Refill was re-sent to [facility] Adenike Simmons MD Reason for Disposition Prescription refill request for a controlled substance (such as most ADHD meds or narcotics) Answer Assessment - Initial Assessment Questions Pt calling to request that her Concerta please be canceled at [facility] and resent to [facility] pharmacy in [place] instead. He medication is currently out of stock at [facility]. Protocols used: Medication Question [id number] Pt is currently due for refill of her Concerta. The script had been electronically sent to [facility] pharmacy but they do not have the medication in stock. Pt requesting script be cancelled at [facility] and resent to [facility] in [place]. Pharmacy preference updated. Routed to provider for review. Please advise. documented in this encounter [facility] 01-18-2023 Note HNO ID: [id number] Author: Clifford Valenzuela DPM Service: ? Author [...] plan unless otherwise noted. Clifford Valenzuela DPM, [facility] 01-18-2023 History of Present illness Narrative [...] Valenzuela DPM, FACFAS documented in this encounter [facility] 12-18-2022 Miscellaneous Notes Please review and assist. documented in this encounter [facility] 12-16-2022 Note HNO ID: [id number] Author: RT Antoinette(R) Service: ? Author Type: Digester Operator Type: Progress Notes Filed: 12/16/2022 4:34 PM [...] RT Antoinette(R) December 16, 2022 4:34 PM [facility] 12-16-2022 History of Present illness Narrative Radiology [...] 2022 4:34 PM documented in this encounter [facility] 12-11-2022 Note HNO ID: [id number] Author: Vanna Aleman MD Service: ? Author Type: Physician Type: Progress Notes Filed: 12/11/2022 8:28 AM Note Text: [facility] Department of Dermatology VIRTUAL VISIT PROGRESS NOTE This is a virtual visit. It required patient-provider interaction for the medical decision making as documented below. This visit was completed via [email or web address] Platform. Discussed with patient limitations of virtual software with assessment of skin disease/lesions. Pt acknowledged and consented to visit. Chief Complaint: rash Date of last visit to [facility] Dermatology: new patient History of Present [...] Skin exam normal with the exception of: [place] skin colored papules around nose and [...] condition or if any new/changing/symptomatic lesions arise. A/C Tech Attestation: The documentation for this note was completed by Lou Chowdary Ma acting as scribe for Vanna Aleman MD. December 10, 2022 4:46 PM. I have communicated my name and active licensure. The patient's identity and physical location were verified at the time of this visit. Either the patient or their legal billing representative has been informed of the risks and benefits of -- and alternatives to -- treatment through a remote evaluation and consents to proceed with the evaluation remotely. I agree with the Chief Complaint, ROS, and Past Histories independently gathered by the clinical field support representative and the remaining scribed note accurately describes my personal service to the patient. Vanna Aleman MD [facility] 12-11-2022 History of Present illness Narrative [facility] Department of Dermatology VIRTUAL VISIT PROGRESS NOTE This is a virtual visit. It required patient-provider interaction for the medical decision making as documented below. This visit was completed via [email or web address] Platform. Discussed with patient limitations of virtual software with assessment of skin disease/lesions. Pt acknowledged and consented to visit. Chief Complaint: rash Date of last visit to [facility] Dermatology: new patient History of Present [...] Skin exam normal with the exception of: [place] skin colored papules around nose and [...] condition or if any new/changing/symptomatic lesions arise. A/C Tech Attestation: The documentation for this note was completed by Lou Chowdary Ma acting as scribe for Vanna Aleman MD. December 10, 2022 4:46 PM. I have communicated my name and active licensure. The patient's identity and physical location were verified at the time of this visit. Either the patient or their legal billing representative has been informed of the risks and benefits of -- and alternatives to -- treatment through a remote evaluation and consents to proceed with the evaluation remotely. I agree with the Chief Complaint, ROS, and Past Histories independently gathered by the clinical field support representative and the remaining scribed note accurately describes my personal service to the patient. Vanna Aleman MD documented in this encounter [facility] 12-04-2022 Note HNO ID: [id number] Author: Clifford Valenzuela DPM Service: ? Author [...] plan unless otherwise noted. Clifford Valenzuela DPM, [facility] 12-04-2022 History of Present illness Narrative [...] Valenzuela DPM, FACFAS documented in this encounter [facility] 12-03-2022 Note HNO ID: [id number] Author: Zoran Beasley APRN.TOLL OPERATOR Service: ? Author Type: Nurse Practitioner Type: [...] visit. Either the patient or their legal billing representative has been informed of the risks [...] which included preparing to see the patient, [id number] patient care, completing clinical documentation, obtaining and/or reviewing separately obtained history, and counseling and educating the patient/family/caregiver. (more content not included)... [facility] 11-28-2022 Note HNO ID: [id number] Author: Gurdeep Christine MD Service: ? Author [...] CREAM recheck 2 weeks Gurdeep Christine MD [facility] 11-28-2022 History of Present illness Narrative Chief [...] Gurdeep Christine MD documented in this encounter [facility] 11-20-2022 Note HNO ID: [id number] Author: Eileen Gutiérrez, DO Service: ? Author Type: Physician Type: Progress Notes Filed: 11/20/2022 10:08 AM Note Text: 22 year old here for hospital follow up for mid-epigastric abdominal pain. Pain has definitely decreased but is still present. Stooling 2-3 times daily with miralax every 2-3 days Taking protonix 40 mg. Getting MRI abdomen in December. Followed by GI in [place]( outside of [facility]). Does belch a lot, [...] continue Concerta 18 mg Eileen Gutiérrez DO [facility] 11-07-2022 Note HNO ID: [id number] Author: Clifford Valenzuela DPM Service: ? Author [...] unless otherwise noted. Clifford Valenzuela DPM, FACFAS [facility] 11-04-2022 Note HNO ID: [id number] Author: Hailey Mitchell MD Service: Hospital Medicine Author Type: Physician Type: Progress Notes Filed: 11/04/2022 2:28 PM Note Text: DEPARTMENT OF HOSPITAL MEDICINE PROGRESS NOTE SERVICE DATE: 11/04/2022 SERVICE TIME: 2:25 PM Hospital Medicine/Primary Attending: Hailey Mitchell MD NIGHT AND WEEKEND COVERAGE: [place] COVERAGE: Days: [phone], please page attending physician. Nights: [phone], please page [place] Hospital[facility] Night coverage pager [phone]. Subjective INTERVAL HPI: Patient was seen and [...] -- -- 1.0 HGBB -- -- 15.3 [id number] -- -- RA=Room Air < > = [...] results for in (more content not included)... [facility] 11-03-2022 Note HNO ID: [id number] Author: Hailey Mitchell MD Service: Hospital Medicine Author Type: Physician Type: Progress Notes Filed: 11/03/2022 3:16 PM Note Text: DEPARTMENT OF HOSPITAL MEDICINE PROGRESS NOTE SERVICE DATE: 11/03/2022 SERVICE TIME: 3:12 PM Hospital Medicine/Primary Attending: Hailey Mitchell MD NIGHT AND WEEKEND COVERAGE: [place] COVERAGE: Days: [phone], please page attending physician. Nights: [phone], please page [place] [facility] Night coverage pager [phone]. Subjective INTERVAL HPI: Patient was seen and [...] -- -- 1.0 HGBB -- -- 15.3 [id number] -- -- RA=Room Air < > = [...] UAMPH, UTHC, UOP (more content not included)... [facility] documented as of this encounter (statuses as of 11/09/2022) [facility]04-30-[facility] History of Past illness Narrative* Problem [...] of this encounter (statuses as of 11/18/2022) [facility] History of Past illness Narrative* Problem [...] of this encounter (statuses as of 12/04/2022) [facility] History of Past illness Narrative* Problem [...] of this encounter (statuses as of 12/05/2022) [facility] History of Past illness Narrative* Problem [...] of this encounter (statuses as of 12/09/2022) [facility] History of Past illness Narrative* Problem [...] of this encounter (statuses as of 12/11/2022) [facility] of Past illness Narrative* Problem [...] of this encounter (statuses as of 12/19/2022) [facility] Narrative* Problem [...] of this encounter (statuses as of 01/18/2023) [facility] Past [facility] Narrative* Problem [...] of this encounter (statuses as of 01/20/2023) [facility] of Past illness Narrative* Problem [...] of this encounter (statuses as of 02/05/2023) [facility] Narrative* Problem [...] of this encounter (statuses as of 02/27/2023) [facility] Past [facility] Narrative* Problem [...] of this encounter (statuses as of 02/27/2023) [facility] Narrative* Problem [...] of this encounter (statuses as of 05/11/2023) [facility] of Past illness Narrative* Problem [...] of this encounter (statuses as of 05/20/2023) [facility] of Past illness Narrative* Problem [...] of this encounter (statuses as of 06/11/2023) [facility] History of Past illness Narrative* Problem [...] of this encounter (statuses as of 06/26/2023) [facility]04-29-2023 NoteHNO ID: [id number] Author: Hailey Mitchell MD Service: Hospital Medicine Author Type: Physician Type: Progress Notes Filed: 11/02/2022 5:08 PM Note Text: DEPARTMENT OF HOSPITAL MEDICINE PROGRESS NOTE SERVICE DATE: 11/02/2022 SERVICE TIME: 5:03 PM Hospital Medicine/Primary Attending: Hailey Mitchell MD NIGHT AND WEEKEND COVERAGE: [place] COVERAGE: Days: [phone], please page attending physician. Nights: [phone], please page [place] [facility] Night coverage pager [phone]. Subjective INTERVAL HPI: Patient was seen and [...] -- -- 1.0 HGBB -- -- 15.3 [id number] -- -- RA=Room Air < > = [...] CSFPROT, CSFGLUC, CSFSR, CSFSTF (more content not included)...[id number] NoteHNO ID: [id number] Author: Jesus Gee MD Service: Hospital Medicine [...] clot prevention: low risk SIGNATURE: Jesus Gee, [id number] History of Past illness Narrative* Problem Noted [...] of this encounter (statuses as of 11/05/2022) [facility]04-27-2023 NoteHNO ID: [id number] Author: Rosales Sanders APRN.TOLL OPERATOR Service: ? Author Type: Nurse Practitioner Type: [...] % 43.7 MCV 80.0 (more content not included)...[facility]04-21-2023 History of Past illness Narrative* Problem Noted [...] of this encounter (statuses as of 10/26/2022) [facility]04-21-2023 NoteHNO ID: [id number] Author: Peyton Pederson RN Service: Nursing Author Type: Registered Nurse Type: Nursing Progress Note Filed: 10/25/2022 9:44 AM Note Text: Xrays done right foot.[facility]04-21-2023 NoteHNO ID: [id number] Author: Arslan Bui APRN.CRNA Service: Nursing Author Type: Nurse Hydroelectric Plant Structural Engineer Type: Anesthesia Procedure Notes Filed: 10/25/2022 8:23 AM Note Text: ANESTHESIOLOGY PROCEDURE NOTE Airway General Information Procedure Start Time/Medication Administration: 10/25/2022 8:14 AM Patient location during procedure: OR Timeout Performed Pre-procedure: timeout performed Consent Obtained: Yes Patient 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 Staffing ACCOUNTING COORDINATOR: Arslan Bui APRN.ACCOUNTING COORDINATOR Performed by: SONDRA Indications and Patient Condition [...] October 25, 2022 TIME: 8:23 AM CSN: [id number]04-21-2023 Miscellaneous Notes* Allied Health - RT [...] (Walker, Cane, Wheelchair, Crutches, etc.)? [facility] GENDER DATA: Female. status: : No status: NO. PATIENT RELEVANT IMPLANT DATA REVIEWED: Not Applicable RADIOLOGY DEPARTMENT: General X-ray: Exam(s) Completed: Lower Extremity X- Ray(s): Foot, Right PERIPHERAL IV DATA: Not applicable SIGNED BY: RT Bhupendra(R) October 25, 2022 9:52 AM [facility] Nurse Note* Peyton Pederson RN - 10/25/2022 9:44 AM EDT Xrays done right foot. documented in [facility] History and physical note * Clifford [...] 9:03 AM Source Note - Sahara Barrett APRN.TOLL OPERATOR - 10/18/2022 9:20 AM EDT HISTORY AND [...] or any previous visit (from the past 24586 hour(s)). Assessment Patient has the following medical [...] well with Propofol. Had surgery 05/2022 at [facility] and had no significant anesthesia events. Charo [...] which included preparing to see the patient, [id number] patient care, completing clinical documentation, obtaining and/or [...] 1:39 PM PAGER/CONTACT #: [facility] in [facility] History and physical note * Sahara [...] or any previous visit (from the past 08981 hour(s)). Assessment Patient has the following medical [...] well with Propofol. Had surgery 05/2022 at [facility] and had no significant anesthesia events. Charo [...] which included preparing to see the patient, [id number]-[id number] patient care, completing clinical documentation, obtaining and/or [...] 1:39 PM PAGER/CONTACT #: documented in this encounterM[facility]04-[facility]-2023 Instructions* Patient Instructions* Sahara Barrett APRN.CNP - 10/15/2022 1:47 PM EDT PATIENT PREOPERATIVE INSTRUCTIONS Your surgeon has scheduled for your procedure at this surgery center: [facility]: [phone], [address], [place] [address] Please enter through the main entrance and [...] Friday, call the Friday before. Your surgeon's clinical statistical programmer will tell you what time to call [...] surgery. - YOU MUST HAVE A RESPONSIBLE ESCROW REPRESENTATIVE TAKE YOU HOME. A BROOM BUNDLER, CAB OR UBER ESCROW REPRESENTATIVE CANNOT BE MADEA RESPONSIBLE ESCROW REPRESENTATIVE. - You cannot stay in a hotel [...] you may. Orthopedic patients having surgery [facility] listed as outpatient should bring their walker into the building. Orthopedic patients having surgery [facility] listed as to be admitted should leave their walkers in the car or with a family member. Sahara Barrett APRN.CNP 10/15/22 documented in this encounterM[facility]04[facility]23 Miscellaneous Notes* Telephone Encounter - Sarah Main - 10/14/2022 11:20 AM EDT Last appointment: 03/25/22 Next appointment: N/A Pharmacy verified in [facility]. Refill(s) requested: Requested Prescriptions Pending Prescriptions Disp Refills methylphenidate ER 18 mg tablet 30 tablet 0 Sig: Take 1 tablet by mouth every morning for 30 days. Order(s) pended. Please advise. Sarah Main CMA documented in [facility]03-01-2023 NoteHNO ID: [id number] Author: Clifford Valenzuela DPM Service: ? Author [...] preoperative medical clearance, preope (more content not included)...[facility] 09-04-2022 History of Present illness Narrative* [...] Clifford Valenzuela DPM, FACFAS documented in this encounterM[facility]02-23-2023 NoteHNO ID: [id number] Author: Beckie Juarez APRN.TOLL OPERATOR Service: ? Author Type: Nurse Practitioner Type: [...] Alejandre DATE: August 29, 2022 TIME: 8:23 [facility]02-16-2023 Miscellaneous Notes* Telephone Encounter - Eileen Gutiérrez DO - 08/22/2022 11:20 AM EST Mom aware that prescription was sent in' Eileen Gutiérrez DO * Telephone Encounter - Kelly Pressley LPN - 08/22/2022 10:00 AM EST The pharmacy pt uses does not have the Concerta on hand and pt has been out of medication x 2 days.Pt found it at [facility] and wonders if Rx's can be sent there. Pt would like called when Rx's are sent in. New Rx's pended for review. Pharmacy info was updated. documented in this encounterM[facility]02-[facility]-2023 NoteHNO ID: [id number] Author: Janina Adams LPN Service: ? Author Type: LICENSED NURSE Type: Progress Notes Filed: 08/12/2022 8:51 PM Note Text: Prepared two 10cc syringes with 3cc bupivacaine 3cc lidocaine with 25 gauge needles and gave to MD for injection - Janina Adams [facility]02-03-2023 NoteHNO ID: [id number] Author: Clifford Valenzuela DPM Service: ? Author [...] Valenzuela DPM Informed Consent Consent Obtained: Verbal [place]a Protocol SIGN IN TIME OUT Nail removal extremity: bilateral great toe. Anesthesia Details: Local anesthetic: Lidocaine 2% without epinephrine and bupivacaine 0.5% without epinephrine Anesthetic total (ml): 3 ml to each great toe. Procedure (more content not included)...[facility]02-03-2023 History of Present illness Narrative* Janina [...] redness or drainage. Denies consitutional symptoms. PCP: iEleen Gutiérrez, DO: PAST MEDICAL HISTORY Diagnosis Date [...] Valenzuela DPM Informed Consent Consent Obtained: Verbal [place] Protocol SIGN IN TIME OUT Nail removal [...] Clifford Valenzuela DPM, FACFAS documented in this encounterM[facility]01-12-2023 NoteHNO ID: [id number] Author: Clifford Valenzuela DPM Service: ? Author [...] prognosis. Patient was also (more content not included)...[facility]01-12-2023 History of Present illness Narrative* Clifford [...] Clifford Valenzuela DPM, FACFAS documented in this encounterM[facility]12-16-2022 Miscellaneous Notes* Telephone Encounter - Jesenia Mann RN - 06/21/2022 9:14 AM EST Patient left message on RN line today at 8:30 wanting to talk about an unspecified medication refill. Patient requested call back to [phone]. Called patient. She had an insurance change [...] medication for two weeks. documented in this encounterM[facility]12-05-2022 Miscellaneous Notes* Telephone Encounter - Anselmo Posadas - 06/10/2022 12:20 PM EST Patient needs a new rx for Concerta - 30 days, insurance won't cover a 90 day. * Telephone Encounter - Keisha Rojas - 06/10/2022 11:19 AM EST [facility] pharmacy in [place] called today on 06/10/22 regards to patients medication Concerta. Pharmacy stated that Dr. Gutiérrez prescribed patient with a 90 day supply and patients insurance only covers a 30 day supply. Pharmacy filled a 30 day supply of Concerta instead of 90 day supply. Void of 60 day supply. Pharmacy stated patient needs a new prescription. Please advise. documented in this encounterM[facility]11[facility]22 History of Present illness Narrative* Clifford [...] Clifford Valenzuela DPM, FACFAS documented in this encounterMiddletown Hospital11-23-2022 History of Past illness Narrative* Problem [...] of this encounter (statuses as of 06/10/2022) [facility] Narrative* Problem [...] of this encounter (statuses as of 06/12/2022) [facility] Narrative* Problem [...] of this encounter (statuses as of 06/17/2022) [facility] Narrative* Problem [...] of this encounter (statuses as of 06/20/2022) [facility] Narrative* Problem [...] of this encounter (statuses as of 06/21/2022) [facility] Narrative* Problem [...] of this encounter (statuses as of 07/31/2022) [facility] Narrative* Problem [...] of this encounter (statuses as of 08/13/2022) [facility] Narrative* Problem [...] of this encounter (statuses as of 08/22/2022) [facility] Narrative* Problem [...] of this encounter (statuses as of 09/03/2022) [facility] Narrative* Problem [...] of this encounter (statuses as of 09/17/2022) [facility] Narrative* Problem [...] of this encounter (statuses as of 10/14/2022) [facility] Narrative* Problem [...] of this encounter (statuses as of 10/18/2022) [facility] of Present illness Narrative* Eileen Gutiérrez DO - 04/05/2022 12:17 PM EDT Form faxed to office Eileen Gutiérrez DO documented in this encounterM[facility]08-16-2022 Miscellaneous Notes* Telephone Encounter - Rosales [...] by Rosales Sanders APRN.CNP documented in this encounterMiddletown Hospital08-08-2022 Instructions* Patient Instructions* Zari Hager APRN.CNP [...] tips for improved daily living with POTS. http://www.[facility].[email or web address]/pots Orthostatic Workout There are videos /playlist/podcast to viewed and helped for exercises and wellness for POTS and Orthostatics Instructions:https://www.[employer].com/channel/[email or web address] In your search bar in the internet [...] Also follow us along on our new [facility] International[employer] account JONNY Also besides the exercise are some ricarda mediation videos . Click and watch. Utilize when your adrenaline is active. May even play music to go along. Play the video as often you want to help as an additional tool to reset the adrenaline https://www.[employer].com/watch?v=oPBz9aXcNX1 https://www.[employer]ote[employer].com/watch?v=v7nBjdV-8xM&feature=youtu.be https://www.[employer] Nanote[employer].com/watch?v=A5jD1nIkF89 Shared Medical Appointments To schedule the ZOOM POTS SMA please call during Friday-Friday 9 am - 4 pm , THE CALL CENTER # [phone] The CALL CENTER IS OPEN 24 hours/ 7 DAYS PER WEEK Please be patient with the phone line. We are honored and glad to have you part of the SMA for POTS Welcome to ZOOM POTS SMA (SHARED MEDICAL APPOINTMENTS) We have learned at the [facility] and especially in my work and [...] and will be handling your phone calls, 8digitshart messages and inquiries, if any. Unless explicitly [...] do not comment on most testing on [employer]hart in a message or commentary unless there [...] you with this process. documented in this encounterMiddletown Hospital08-08-2022 History of Present illness Narrative* Zari Hager APRN.CNP - 02/11/2022 10:52 AM EDT Images from the original note were not included. [facility] for General Neurology Follow Up Polina [...] Extension 5/5 5/5 Movement/Coordination Finger-to- nose-finger and zlug-aw-yuhg intact bilaterally. No evidence of ataxia arms. [...] which included preparing to see the patient, xqhq-dw-vvtv patient care, completing clinical documentation, obtaining and/or [...] for this visit on 02/11/22. Zari Hager APRN.[facility] General Neurology [address] [place] [address]. [id number] Appointment: [phone] 1. This office note has been dictated [...] of your PCP/referring physician documented in this encounterMiddletown Hospital05-23-2022 Instructions* Patient Instructions* Yahaira Arredondo APRN.CNP [...] in 24 -48 hours, results available on [facility] Home isolation until covid results are back [...] to thin out mucus documented in this encounterMiddletown Hospital05-23-2022 History of Present illness Narrative* Yahaira Arredondo APRN.CNP - 11/26/2021 8:52 AM EDT Subjective The history is provided by the patient. No departmental buyer was used. HPI Polina Alejandre is a 21 year old female who presents today for CC of cough, congestion and fever, fatigue, body aches, headache. She has used tylenol with short term relief. 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 Wheezing [...] Level: 4 - Moderate documented in this encounterMiddletown Hospital05-17-2022 Miscellaneous Notes* Telephone Encounter - Janey [...] need be. She saw the provider in [place] in September for a physical to be [...] seen by Dr. Gutiérrez in [facility] since 03/2020. Look slfrance Polina has been seen in [place] lately. Bertha Edge APRN.CNP * Telephone Encounter [...] advise. Megan Hodges MA documented in this encounterMiddletown Hospital05-17-2022 History of Present illness Narrative* Lisa Pacheco RN - 11/20/2021 10:51 AM EDT Asthma Home Monitoring Program Breathe Well Outreach Provider Action/FYI: Approval received from Dr Oracio Bertrand to draft AAP per below FYI Reason for outreach: Follow up and Asthma Action Plan, Health Maintenance, due for Pulm F/up Contact made: Yes, via 8digitshart VM left. SIGNATURE: Lisa Pacheco RN PATIENT NAME: Polina Alejandre DATE: November 20, 2021 TIME: 10:51 AM * Lisa Pacheco RN - 11/09/2021 3:11 PM EDT Asthma Home Monitoring Program Breathe Well Outreach Provider Action/FYI: Hi Dr Bertrand, Pt is over due for f/up in your office. RN called and left message encouraging arranging f/up visitwith your office and will send Betterifict message. From a health maintenance perspective patient [...] 2021 TIME: 3:11 PM documented in this encounterMiddletown Hospital05-02-2022 Miscellaneous Notes* Telephone Encounter - Adenike Odom RN - 11/05/2021 11:00 AM EDT Last OV: 12/18/2020 Last Refill: 08/29/2021 F/U OV: N/A Appropriate for refill. Routed to [place] for review. Adenike Odom RN, BSN, BA documented in this encounterMiddletown Hospital04-14-2022 Miscellaneous Notes* Telephone Encounter - Jeana Aranda DO - 10/18/2021 3:23 PM EDT orthotics ordered. please assist. hs documented in this encounterMiddletown Hospital04-05-2022 History of Present illness Narrative* Clifford [...] they [facility] well as everything found [...] sensation intact at all pedal sites via [place] 5.07 monofilament bilateral. Proprioception intact at [...] bleeding, clots, bleeding disorders. documented in this encounterMiddletown Hospital03-28-2022 Instructions* Patient Instructions* Beckie Juarez APRN.TOLL OPERATOR - 10/01/2021 10:03 AM EDT Images from [...] drinks Go! Be healthy, inside and out! www.[facility].org/5toGo Adolescent to Adult Transition Program [facility] cares about helping you and each of our adolescents and young adults make a smoothtransition to adult care. If your current doctor is a assistant baseball coach, we will work with you to decide [...] your current doctor is in family medicine, [facility] will prepare you and your family [...] details. If joining our practice from outside [facility], we will help you request your [...] the use of evidence-driven strategies for health healthcare science specialist, youth, young adults, and their families. www.gottransition.org https://gottransition.org/resource/?hgl-rckzqb-arfglmv documented in this encounterMiddletown Hospital03-28-2022 History of Present illness Narrative* Beckie [...] satisfactory Screening tools reviewed and discussed with patient/grzzqy-IXM-5 and Social Determinants of Health.Please see Patient [...] for respiratory tuberculosis Z11.1 PPD (TB INTRADERMAL 07823) B/O 53 %ile (Z= 0.08) based on [...] and safety. - Dental care discussed. - Squabbler handout given (See Patient Instructions). - Parent/guardian declined immunization for HPV and was counseled regarding risk. Discussed benefits of vaccination and encouraged patient to return to clinic for HPV vaccine. - Follow up in one year for routine physical. SIGNATURE: Beckie Juarez APRN.NEERU PATIENT NAME: Polina Alejandre DATE: October 01, 2021 TIME: 9:25 AM documented in this encounterMiddletown Hospital03-22-2022 Miscellaneous Notes* Telephone Encounter - Irma Ford Cable Splicer Apprentice Ppg - 09/25/2021 11:26 AM EDT Patient contacted and scheduled with Dr. Valenzuela on 10/09/21. She was instructed to bring the prior op report or drop it off prior to her office visit. Patient said she will bring it to the scheduled appointment. 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 The person she goes to for her Orthotic highly recommended Dr. Valenzuela. I will have Irma check with Dr. Valenzuela to see if it is okay to schedule this patient. Ayaka Palencia Cable Splicer Apprentice Ppg September 24, 2021 3:50 PM * Telephone Encounter - Ayaka Palencia Cable Splicer Apprentice Ppg - 09/24/2021 3:47 PM EDT ----- [...] other than patient: self Best contact number: [phone] Thank you, Bertha Still September 24, 2021 8:11 AM documented in this encounterMiddletown Hospital10-19-2020 History of Past illness Narrative* Problem [...] of this encounter (statuses as of 09/25/2021) [facility] illness Narrative* Problem [...] of this encounter (statuses as of 10/02/2021) [facility] Narrative* Problem [...] of this encounter (statuses as of 10/03/2021) [facility] Narrative* Problem [...] of this encounter (statuses as of 10/08/2021) [facility] Narrative* Problem [...] of this encounter (statuses as of 10/10/2021) [facility] Narrative* Problem [...] of this encounter (statuses as of 10/15/2021) [facility] Narrative* Problem [...] of this encounter (statuses as of 10/18/2021) [facility] Narrative* Problem [...] of this encounter (statuses as of 11/05/2021) [facility] Narrative* Problem [...] of this encounter (statuses as of 11/20/2021) [facility] Narrative* Problem [...] of this encounter (statuses as of 11/20/2021) [facility] Narrative* Problem [...] of this encounter (statuses as of 11/26/2021) [facility] Narrative* Problem [...] of this encounter (statuses as of 01/14/2022) [facility] Narrative* Problem [...] of this encounter (statuses as of 02/11/2022) [facility] Narrative* Problem [...] of this encounter (statuses as of 02/19/2022) [facility] Narrative* Problem [...] of this encounter (statuses as of 04/05/2022) [facility] Narrative* Problem [...] of this encounter (statuses as of 05/29/2022) [facility] note* Diagnosis Well adolescent visit without abnormal findings- Primary Intermittent asthma, well controlled Unspecified asthma Negative depression screening Encounter for screening for lipoid disorders Screening for lipoid disorders Encounter for screening for respiratory tuberculosis Screening examination for pulmonary tuberculosis [facility] Diagnosis Encounter for screening for respiratory tuberculosis- Primary Screening examination for pulmonary tuberculosis [facility]* Diagnosis PPD screening test- Primary Screening examination for pulmonary tuberculosis documented in this encounter [facility] note* Diagnosis Screening examination for pulmonary tuberculosis- Primary documented in this encounter [facility]* Diagnosis Acquired mallet toe, right- Primary Bilateral foot pain Pain in limb documented [facility] encounter [facility]* Diagnosis 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, not elsewhere classified documented in this encounter [facility]* Diagnosis POTS (postural orthostatic tachycardia syndrome) Tachycardia, unspecified Migraine without aura and without status migrainosus, not intractable Migraine without aura, without mention of intractable migraine without mention of status migrainosus documented in this encounter [facility]* 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 documented in this encounter [facility]* Diagnosis Flu-like symptoms- Primary Other general symptoms Suspected COVID-19 virus infection Wheezing [facility] Diagnosis Easy bruising- Primary Other symptoms involving skin and integumentary tissues documented in this encounter [facility]* Diagnosis POTS (postural orthostatic tachycardia syndrome) Tachycardia, unspecified [facility]* 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 [facility]* Diagnosis Mallet toe, acquired, left- Primary Mallet toe, acquired, left [facility]* 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 [facility]* 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 [facility]* Diagnosis Post-operative state- Primary Other postprocedural status [facility]* 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 [facility]* Diagnosis Acquired mallet toe, right- Primary Post-operative state Other postprocedural status Ingrown toenail of both feet MT (mallet toe), right [facility] encounter [facility]* Diagnosis Ingrowing nail- Primary Pain in toe of left foot Pain in limb Pain in toe of right foot Pain in limb MT (mallet toe), right [facility]* 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 MT (mallet toe), right [facility]* Diagnosis Pain in toe of right foot- Primary Pain in limb MT (mallet toe), right documented in this encounter [facility] note* 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 MT (mallet toe), right documented in this encounter [facility] note* Diagnosis Gastroesophageal reflux disease, unspecified whether esophagitis present- Primary Elevated blood pressure reading without diagnosis of hypertension Pre-op examination Preoperative examination, unspecified Mild intermittent asthma without complication Unspecified asthma POTS (postural orthostatic tachycardia syndrome) Tachycardia, unspecified Delayed emergence from anesthesia, subsequent encounter Nonintractable epilepsy without status epilepticus, 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 MT (mallet toe), right documented in this encounter [facility] note* Diagnosis MT (mallet toe), right- Primary MT (mallet toe), right documented in this encounter [facility] note* Diagnosis Seborrheic dermatitis- Primary Seborrheic dermatitis, unspecified documented in this encounter [facility] note* Diagnosis Post-operative state- Primary Other postprocedural status documented in this encounter [facility] note* Diagnosis Perioral dermatitis- Primary Rosacea documented in this encounter [facility] note* 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 documented in this encounter [facility] note* 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 documented in this encounter [facility] note* 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 documented in this encounter [facility] note* Diagnosis Post-operative state- Primary Other postprocedural status Acquired mallet toe, right Ingrowing nail documented in this encounter [facility] note* Diagnosis Ingrown toenail of both feet- Primary Onychodystrophy Other specified disease of nail documented in this encounter [facility] note* Diagnosis Ingrown toenail of both feet- Primary Post-operative state Other postprocedural status documented in this encounter [facility] for referral (narrative)* Diagnostic Procedure Only (Routine) - Pending Review Specialty Diagnoses / Procedures Referred By Chaz maxwell Referred To Contact XR IMAGING Diagnoses Acquired mallet toe, right Bilateral foot pain Procedures XR FOOT GENERAL 3V AP/LAT/OBL RIGHT RADEX FOOT COMPLETE MINIMUM 3 VIEWS Clifford Valenzuela DPM [address] [address] Xr Imaging Referral ID Status Reason Start Date Expiration Date Visits Requested Visits Authorized [id number] Pending Review Auto-Generat ed Referral 10/10/2021 11/08/2022 1 1 * Diagnostic Procedure Only (Routine) - Pending Review Specialty Diagnoses / Procedures Referred By Contac t Referred To Contact XR IMAGING Diagnoses Acquired mallet toe, right Bilateral foot pain Procedures XR FOOT GENERAL 3V AP/LAT/OBL LEFT RADEX FOOT COMPLETE MINIMUM 3 VIEWS Clifford Valenzuela DPM [address] [place] [id number] Xr Imaging Referral ID Status Reason Start Date Expiration Date Visits Requested Visits Authorized [id number] Pending Review Auto-Generat ed Referral 10/10/2021 11/08/2022 1 1 [facility] for referral (narrative)* Diagnostic Procedure Only (Routine) - Pending Review Specialty Diagnoses / Procedures Referred By Contac t Referred To Contact XR IMAGING Diagnoses Post-operative state Procedures XR FOOT GENERAL 3V AP/LAT/OBL LEFT RADEX FOOT COMPLETE MINIMUM 3 VIEWS Clifford Valenzuela DPM [address] [place] [id number] Xr Imaging Referral ID Status Reason Start Date Expiration Date Visits Requested Visits Authorized [id number] Pending Review Auto-Generat ed Referral 06/10/2022 07/05/2023 1 1 [facility] for referral (narrative)* Diagnostic Procedure Only (Routine) - Pending Review Specialty Diagnoses / Procedures Referred By Contac t Referred To Contact XR IMAGING Diagnoses Post-operative state Procedures XR FOOT GENERAL 3V AP/LAT/OBL RIGHT RADEX FOOT COMPLETE MINIMUM 3 VIEWS Clifford Valenzuela DPM [address] [place] [address] Xr Imaging Referral ID Status Reason Start Date Expiration Date Visits Requested Visits Authorized [id number] Pending Review Auto-Generat ed Referral 12/04/2022 01/03/2024 1 1 [facility] Diagnostic Procedure Only (Routine) - Pending Review Specialty Diagnoses / Procedures Referred By Contac t Referred To Contact XR IMAGING Diagnoses Post-operative state Acquired mallet toe, right Procedures XR FOOT GENERAL 3V AP/LAT/OBL RIGHT RADEX FOOT COMPLETE MINIMUM 3 VIEWS Clifford Valenzuela DPM [address] [address] Xr Imaging Referral ID Status Reason Start Date Expiration Date Visits Requested Visits Authorized [id number] Pending Review Auto-Generat ed Referral 01/18/2023 02/14/2024 1 1 [facility] Summary Purpose Family History No Family History Records FoundThere may be information available, but it has not been provided by the sender.No Family History Records FoundNo Family History Records FoundNo Family History Records FoundNo Family History Records Found Advance Directives Documents on File Type Date Recorded Patient Press Tender Star Signal Expl anation Advance Directive(s) Documents on File Type Date Recorded Patient Press Tender Star Signal Expl anation Advance Directive(s) Chief Complaint Chief [...] at Discharge: .Home Vital Signs: T PRBPSpO2 [id number]/7196% Date/Time12/30 16: 16: 16: 16: 16:13 Range(36.6C [...] Contact Diagnoses Narcolepsy without cataplexy Rosales Sanders APRN.TOLL OPERATOR [address] [facility] [address] [place] [address] Referral ID Status Reason Start Date Expiration Date V isits Requested Visits Authorized [id number] Pending Review 1 1 Additional Source Comments INFORMATION SOURCE (unrecogn ized section and content) DATE CREATED AUTHOR AUTHOR'S ORGANIZ ATION 01/26/2020 [facility] DATE CREATED AUTHOR AUTHOR'S ORGANIZ ATION 11/07/2022 [facility] DATE CREATED AUTHOR AUTHOR'S ORGANIZ ATION 06/13/2023 [facility] DATE CREATED AUTHOR AUTHOR'S ORGANIZ ATION 06/23/2023 [facility] Reason for Visit (unrecogniz ed section and [...] [facility] [address] [place] [address] Referral ID Status Reason Start Date Expiration Date Visits Re quested Visits Authorized [id number] 1 1 Reason Comments Follow Up Gyant [...] Referred To Contact Radiology / RADIO MRI [facility] Epigastric pain Gastritis GERD (gastroesophageal reflux disease) Liver lesion Elevated LFTs MRI ABDOMEN W CON - MRI LIVER W CONTRAST Epigastric pain R10.13 Gastritis K29.09 GERD K21.9 Liver lesion K76.9 Elevated LFTs R79.89 Procedures MRI ABDOMEN W/CONTRAST MATERIAL MRI ABDOMEN W/O & W/CONTRAST MATERIAL MRI WWO ABD [address] Martinez, ACCOUNTS RECEIVABLE ACCOUNTANT.WATER ANALYST [address] [place] [address] [place] [address] Referral ID Status Reason Start Date Expiration Date Visits Re quested Visits Authorized [id number] Closed 11/25/2022 05/24/2023 1 1 Source Comments (unrecognize d section and content) In the event this informatio n is protected by the Federal Confidentiality of Alcohol and Drug Abuse Patient Records regulations: The Federal rules restrict any use of the information to criminally investigate or prosecute any alcohol or drug abuse patient.[facility]In the event this information is protected by the Federal Confidentiality of Alcohol and Drug Abuse Patient Records regulations: The Federal rules restrict any use of the information to criminally investigate or prosecute any alcohol or drug abuse patient.[facility] HospitalIn the event this information is protected by the Federal Confidentiality of Alcohol and Drug Abuse Patient Records regulations: The Federal rules restrict any use of the information to criminally investigate or prosecute any alcohol or drug abuse patient.[facility] HospitalIn the event this information is protected by the Federal Confidentiality of Alcohol and Drug Abuse Patient Records regulations: The Federal rules restrict any use of the information to criminally investigate or prosecute any alcohol or drug abuse patient.[facility] HospitalIn the event this information is protected by the Federal Confidentiality of Alcohol and Drug Abuse Patient Records regulations: The Federal rules restrict any use of the information to criminally investigate or prosecute any alcohol or drug abuse patient.[facility] HospitalIn the event this information is protected by the Federal Confidentiality of Alcohol and Drug Abuse Patient Records regulations: The Federal rules restrict any use of the information to criminally investigate or prosecute any alcohol or drug abuse patient.[facility] HospitalIn the event this information is protected by the Federal Confidentiality of Alcohol and Drug Abuse Patient Records regulations: The Federal rules restrict any use of the information to criminally investigate or prosecute any alcohol or drug abuse patient.[facility] HospitalIn the event this information is protected by the Federal Confidentiality of Alcohol and Drug Abuse Patient Records regulations: The Federal rules restrict any use of the information to criminally investigate or prosecute any alcohol or drug abuse patient.[facility] HospitalIn the event this information is protected by the Federal Confidentiality of Alcohol and Drug Abuse Patient Records regulations: The Federal rules restrict any use of the information to criminally investigate or prosecute any alcohol or drug abuse patient.[facility] HospitalIn the event this information is protected by the Federal Confidentiality of Alcohol and Drug Abuse Patient Records regulations: The Federal rules restrict any use of the information to criminally investigate or prosecute any alcohol or drug abuse patient.[facility] HospitalIn the event this information is protected by the Federal Confidentiality of Alcohol and Drug Abuse Patient Records regulations: The Federal rules restrict any use of the information to criminally investigate or prosecute any alcohol or drug abuse patient.[facility] HospitalIn the event this information is protected by the Federal Confidentiality of Alcohol and Drug Abuse Patient Records regulations: The Federal rules restrict any use of the information to criminally investigate or prosecute any alcohol or drug abuse patient.[facility] HospitalIn the event this information is protected by the Federal Confidentiality of Alcohol and Drug Abuse Patient Records regulations: The Federal rules restrict any use of the information to criminally investigate or prosecute any alcohol or drug abuse patient.[facility] HospitalIn the event this information is protected by the Federal Confidentiality of Alcohol and Drug Abuse Patient Records regulations: The Federal rules restrict any use of the information to criminally investigate or prosecute any alcohol or drug abuse patient.[facility] HospitalIn the event this information is protected by the Federal Confidentiality of Alcohol and Drug Abuse Patient Records regulations: The Federal rules restrict any use of the information to criminally investigate or prosecute any alcohol or drug abuse patient.[facility] HospitalIn the event this information is protected by the Federal Confidentiality of Alcohol and Drug Abuse Patient Records regulations: The Federal rules restrict any use of the information to criminally investigate or prosecute any alcohol or drug abuse patient.[facility] HospitalIn the event this information is protected by the Federal Confidentiality of Alcohol and Drug Abuse Patient Records regulations: The Federal rules restrict any use of the information to criminally investigate or prosecute any alcohol or drug abuse patient.[facility] HospitalIn the event this information is protected by the Federal Confidentiality of Alcohol and Drug Abuse Patient Records regulations: The Federal rules restrict any use of the information to criminally investigate or prosecute any alcohol or drug abuse patient.[facility] HospitalIn the event this information is protected by the Federal Confidentiality of Alcohol and Drug Abuse Patient Records regulations: The Federal rules restrict any use of the information to criminally investigate or prosecute any alcohol or drug abuse patient.[facility] HospitalIn the event this information is protected by the Federal Confidentiality of Alcohol and Drug Abuse Patient Records regulations: The Federal rules restrict any use of the information to criminally investigate or prosecute any alcohol or drug abuse patient.[facility] HospitalIn the event this information is protected by the Federal Confidentiality of Alcohol and Drug Abuse Patient Records regulations: The Federal rules restrict any use of the information to criminally investigate or prosecute any alcohol or drug abuse patient.[facility] HospitalIn the event this information is protected by the Federal Confidentiality of Alcohol and Drug Abuse Patient Records regulations: The Federal rules restrict any use of the information to criminally investigate or prosecute any alcohol or drug abuse patient.[facility] HospitalIn the event this information is protected by the Federal Confidentiality of Alcohol and Drug Abuse Patient Records regulations: The Federal rules restrict any use of the information to criminally investigate or prosecute any alcohol or drug abuse patient.[facility] HospitalIn the event this information is protected by the Federal Confidentiality of Alcohol and Drug Abuse Patient Records regulations: The Federal rules restrict any use of the information to criminally investigate or prosecute any alcohol or drug abuse patient.[facility] HospitalIn the event this information is protected by the Federal Confidentiality of Alcohol and Drug Abuse Patient Records regulations: The Federal rules restrict any use of the information to criminally investigate or prosecute any alcohol or drug abuse patient.[facility] HospitalIn the event this information is protected by the Federal Confidentiality of Alcohol and Drug Abuse Patient Records regulations: The Federal rules restrict any use of the information to criminally investigate or prosecute any alcohol or drug abuse patient.[facility] HospitalIn the event this information is protected by the Federal Confidentiality of Alcohol and Drug Abuse Patient Records regulations: The Federal rules restrict any use of the information to criminally investigate or prosecute any alcohol or drug abuse patient.[facility] HospitalIn the event this information is protected by the Federal Confidentiality of Alcohol and Drug Abuse Patient Records regulations: The Federal rules restrict any use of the information to criminally investigate or prosecute any alcohol or drug abuse patient.[facility] HospitalIn the event this information is protected by the Federal Confidentiality of Alcohol and Drug Abuse Patient Records regulations: The Federal rules restrict any use of the information to criminally investigate or prosecute any alcohol or drug abuse patient.[facility] HospitalIn the event this information is protected by the Federal Confidentiality of Alcohol and Drug Abuse Patient Records regulations: The Federal rules restrict any use of the information to criminally investigate or prosecute any alcohol or drug abuse patient.[facility] HospitalIn the event this information is protected by the Federal Confidentiality of Alcohol and Drug Abuse Patient Records regulations: The Federal rules restrict any use of the information to criminally investigate or prosecute any alcohol or drug abuse patient.[facility] HospitalIn the event this information is protected by the Federal Confidentiality of Alcohol and Drug Abuse Patient Records regulations: The Federal rules restrict any use of the information to criminally investigate or prosecute any alcohol or drug abuse patient.[facility] HospitalIn the event this information is protected by the Federal Confidentiality of Alcohol and Drug Abuse Patient Records regulations: The Federal rules restrict any use of the information to criminally investigate or prosecute any alcohol or drug abuse patient.[facility] HospitalIn the event this information is protected by the Federal Confidentiality of Alcohol and Drug Abuse Patient Records regulations: The Federal rules restrict any use of the information to criminally investigate or prosecute any alcohol or drug abuse patient.[facility] HospitalIn the event this information is protected by the Federal Confidentiality of Alcohol and Drug Abuse Patient Records regulations: The Federal rules restrict any use of the information to criminally investigate or prosecute any alcohol or drug abuse patient.[facility] HospitalIn the event this information is protected by the Federal Confidentiality of Alcohol and Drug Abuse Patient Records regulations: The Federal rules restrict any use of the information to criminally investigate or prosecute any alcohol or drug abuse patient.[facility] HospitalIn the event this information is protected by the Federal Confidentiality of Alcohol and Drug Abuse Patient Records regulations: The Federal rules restrict any use of the information to criminally investigate or prosecute any alcohol or drug abuse patient.[facility] HospitalIn the event this information is protected by the Federal Confidentiality of Alcohol and Drug Abuse Patient Records regulations: The Federal rules restrict any use of the information to criminally investigate or prosecute any alcohol or drug abuse patient.[facility] HospitalIn the event this information is protected by the Federal Confidentiality of Alcohol and Drug Abuse Patient Records regulations: The Federal rules restrict any use of the information to criminally investigate or prosecute any alcohol or drug abuse patient.[facility] HospitalIn the event this information is protected by the Federal Confidentiality of Alcohol and Drug Abuse Patient Records regulations: The Federal rules restrict any use of the information to criminally investigate or prosecute any alcohol or drug abuse patient.[facility] HospitalIn the event this information is protected by the Federal Confidentiality of Alcohol and Drug Abuse Patient Records regulations: The Federal rules restrict any use of the information to criminally investigate or prosecute any alcohol or drug abuse patient.[facility] HospitalIn the event this information is protected by the Federal Confidentiality of Alcohol and Drug Abuse Patient Records regulations: The Federal rules restrict any use of the information to criminally investigate or prosecute any alcohol or drug abuse patient.[facility] HospitalIn the event this information is protected by the Federal Confidentiality of Alcohol and Drug Abuse Patient Records regulations: The Federal rules restrict any use of the information to criminally investigate or prosecute any alcohol or drug abuse patient.[facility] HospitalIn the event this information is protected by the Federal Confidentiality of Alcohol and Drug Abuse Patient Records regulations: The Federal rules restrict any use of the information to criminally investigate or prosecute any alcohol or drug abuse patient.[facility] HospitalIn the event this information is protected by the Federal Confidentiality of Alcohol and Drug Abuse Patient Records regulations: The Federal rules restrict any use of the information to criminally investigate or prosecute any alcohol or drug abuse patient.[facility] HospitalIn the event this information is protected by the Federal Confidentiality of Alcohol and Drug Abuse Patient Records regulations: The Federal rules restrict any use of the information to criminally investigate or prosecute any alcohol or drug abuse patient.[facility] Care Teams (unrecognized sec tion and content) Computer Operations Analyst Relationship Specialty Start Date End Date Eileen Gutiérrez, DO [address] [address] [place] [address] PCP - General 02 Computer Operations Analyst Relationship Specialty Start Date End Date Eileen Gutiérrez, DO [address] [address] [place] [address] PCP - General 02 Computer Operations Analyst Relationship Specialty Start Date End Date Eileen Gutiérrez, DO [address] [address] [place] [address] PCP - General 02 Computer Operations Analyst Relationship Specialty Start Date End Date Eileen Gutiérrez, DO [address] [address] [place] [address] PCP - General 02 Computer Operations Analyst Relationship Specialty Start Date End Date Eileen Gutiérrez, DO [address] [address] [place] [address] PCP - General 02 Computer Operations Analyst Relationship Specialty Start Date End Date Eileen Gutiérrez, DO [address] [address] [place] [address] PCP - General 02 Computer Operations Analyst Relationship Specialty Start Date End Date Eileen Gutiérrez, DO [address] [address] [place] [address] PCP - General 02 Computer Operations Analyst Relationship Specialty Start Date End Date Eileen Gutiérrez, DO [address] [address] [place] [address] PCP - General 02 Computer Operations Analyst Relationship Specialty Start Date End Date Eileen Gutiérrez, DO [address] [address] [place] [address] PCP - General 02 Computer Operations Analyst Relationship Specialty Start Date End Date Eileen Gutiérrez, DO [address] [address] [place] [address] PCP - General 02 Computer Operations Analyst Relationship Specialty Start Date End Date Eileen Gutiérrez, DO [address] [address] [place] [address] PCP - General 02 Computer Operations Analyst Relationship Specialty Start Date End Date Eileen Gutiérrez, DO [address] [address] [place] [address] PCP - General 02 Computer Operations Analyst Relationship Specialty Start Date End Date Eileen Gutiérrez, DO [address] [address] [place] [address] PCP - General 02 Computer Operations Analyst Relationship Specialty Start Date End Date Eileen Gutiérrez, DO [address] [address] [place] [address] PCP - General 02 Computer Operations Analyst Relationship Specialty Start Date End Date Eileen Gutiérrez, DO [address] [address] [place] [address] PCP - General 02 Computer Operations Analyst Relationship Specialty Start Date End Date Eileen Gutiérrez, DO [address] [address] [place] [address] PCP - General 02 Computer Operations Analyst Relationship Specialty Start Date End Date Eileen Gutiérrez, DO [address] [address] [place] [address] PCP - General 02 Computer Operations Analyst Relationship Specialty Start Date End Date Eileen Gutiérrez, DO [address] [address] [address] [facility] [place] [address] PCP - General 02 Computer Operations Analyst Relationship Specialty Start Date End Date Eileen Gutiérrez, DO [address] [address] [place] [facility] [place] [address] PCP - General 02 Lisa Pacheco, wardrobe coordinator Transitional Care Nurse 11/06/22 12/06/22 Computer Operations Analyst Relationship Specialty Start Date End Date Eileen Gutiérrez, DO [address] [address] [place] [facility] [place] [place] [address] PCP - General 02 Lisa Pacheco, wardrobe coordinator Transitional Care Nurse 11/06/22 12/06/22 Computer Operations Analyst Relationship Specialty Start Date End Date Eileen Gutiérrez, DO [address] [address] [place] [facility] [place] [place] [address] PCP - General 02 Lisa Pacheco, wardrobe coordinator Transitional Care Nurse 11/06/22 12/06/22 Computer Operations Analyst Relationship Specialty Start Date End Date Eileen Gutiérrez, DO [address] [address] [place] [facility] [place] [address] PCP - General 02 Lisa Pacheco, wardrobe coordinator Transitional Care Nurse 11/06/22 12/06/22 Computer Operations Analyst Relationship Specialty Start Date End Date Eileen Gutiérrez, DO [address] [address] [place] [address] PCP - General 02 Lisa Pacheco, wardrobe coordinator Transitional Care Nurse 11/06/22 12/06/22 Computer Operations Analyst Relationship Specialty Start Date End Date Eileen Gutiérrez DO [address] [address] [place] [address] PCP - General 02 Computer Operations Analyst Relationship Specialty Start Date End Date Eileen Gutiérrez DO [address] [address] [place] [address] PCP - General 02 Computer Operations Analyst Relationship Specialty Start Date End Date Eileen Gutiérrez DO [address] [address] [place] [address] PCP - General 02 Computer Operations Analyst Relationship Specialty Start Date End Date Eileen Gutiérrez DO [address] [address] [place] [address] PCP - General 02 Computer Operations Analyst Relationship Specialty Start Date End Date Eileen Gutiérrez DO [address] [address] [place] [address] PCP - General 02 Computer Operations Analyst Relationship Specialty Start Date End Date Eileen Gutiérrez DO [address] [address] [place] [address] PCP - General 02 Computer Operations Analyst Relationship Specialty Start Date End Date Eileen Gutiérrez DO [address] [address] [place] [address] PCP - General 02 Computer Operations Analyst Relationship Specialty Start Date End Date Eileen Gutiérrez DO [address] [address] [place] [address] PCP - General 02 Computer Operations Analyst Relationship Specialty Start Date End Date Eileen Gutiérrez DO [address] [address] [place] [address] PCP - General 02 Computer Operations Analyst Relationship Specialty Start Date End Date Eileen Gutiérrez DO [address] [address] [place] [address] PCP - General 02 Scheduled Active and [...] BE BASED ON THE PRIMARY CLINICAL RECORDS. [employer] [facility]. provides no warranty or guarantee of the accuracy or completeness of information in this document.
[2023-09-18 18:08] LABS: 5-HIAA, 24UR 3.3 mg/24 hr (0.0-14.9); 5-HIAA, UR 1.6 mg/L (Undefined)
== END | disposition home or self-care (01) ==
LOC: LABSPEC 06:47
PROVIDERS: PCP Family Medicine; Referring Provider Internal Medicine Gastroenterology; Visit Provider Internal Medicine Gastroenterology
DX: K21.00 Gastro-esophageal reflux disease with esophagitis, without bleeding (principal); D18.03 Hemangioma of intra-abdominal structures
CPT/HCPCS: 81050; 83497

== ENCOUNTER → 2023-09-15 | Outpatient (CLI) | payer OTHER, SELFPAY ==
--- OUTSIDE RECORDS SUMMARY | 2023-09-15 07:00 | XMS RPT_ITS | CCD ---
Author Name Unknown Address [address] [place] [address] Organization [facility] Care Team Providers Care Analyst [employer] Name Role Phone TOMER PIÑA K Unavailable [...] CHERELLE Unavailable Unavailable Albert Hilario MD Unavailable [phone] Eileen Gutiérrez DO Primary Care Provider [phone] Eileen Gutiérrez DO Primary Care Provider Eileen Gutiérrez DO Primary Care Provider [phone] EILEEN GUTIÉRREZ Primary Care Unavailable SHYANNE MUÑOZ Referring Unavailable BERTHA REID Attending Unavailable JONATHAN FRANKLIN Consulting Unavailable HAILEY MITCHELL Attending Unavailable CHIQUITA STAHL Admitting Unavailable EILEEN GUTIÉRREZ Primary Care Unavailable EILEEN GUTIÉRREZ Primary Care Unavailable Junior PADNYA, Lisa Unavailable Unavailab le GUTIÉRREZ, REINA Primary [...] reactions to drug (disorder) 03-28-20 07 Swelling [facility] Repository (1 source) Midazolam; Translations: [MIDAZOLAM] Drug Allergy 04-06-20 15 AOF [facility] Repository (20 sources) Penicillins; Translations: [PENICILLINS] Propensity to adverse reactions to drug (disorder) 07-23-19 06 Rash [facility] Repository (1 source) House dust mite; Translations: [DUST MITES] allergy to substance 02-03-20 [facility] [place] [facility] Work Phone: (1 source) [facility] drug allergy 02-03-20 19 [facility] Work Phone: (1 source) Midazolam Drug Allergy 02-03-20 19 [facility] Work Phone: (4 sources) Midazolam; Translations: [MIDAZOLAM HCL] Drug Allergy 02-03-20 12 change in mental status [facility] Work Phone: (1 source) Mold Extract; Translations: [MOLD] Drug Allergy 02-03-20 19 [facility] Work Phone: (1 source) Penicillin Drug Allergy 03-14-20 15 hives [facility] Work Phone: (1 source) PLANT POLLENS; Translations: [PLANT POLLENS] allergy to substance 02-03-20 [facility] Work Phone: (20 sources) cefdinir; Translations: [CEFDINIR] Drug Allergy 08-31-19 21 Swelling [facility] (20 sources) Midazolam Drug Allergy 02-03-20 12 Mental Status Change [facility] (20 sources) Wheat gluten extract; Translations: [GLUTEN] Drug Allergy 04-12-20 20 GI Upset [facility] (20 sources) Acetaminophen / HYDROcodone; Translations: [HYDROCODONE-ACET AMINOPHEN] Drug Allergy 05-29-20 22 Swelling [facility] (20 sources) Prochlorperazine; Translations: [PROCHLORPERAZINE ] Drug Allergy 11-05-19 23 Intolerance [facility] Medications Current Medications Medication Drug Class(es) Dates [...] 157.5 cm Clifford Nicolas DPM Work Phone: [facility] 05-23-2023 14:41-0500 Body weight 52.16 kg Clifford Nicolas DPM Work Phone: [facility] 05-23-2023 14:41-0500 Respiratory rate 20 /min Clifford Nicolas DPM Work Phone: [facility] 04-30-2023 09:58-0400 Body height 157.5 cm Clifford Nicolas DPM Work Phone: [facility] 04-30-2023 09:58-0400 Body weight 52.16 kg Clifford Nicolas DPM Work Phone: [facility] 04-30-2023 09:58-0400 Respiratory rate 18 /min Clifford Nicolas DPM Work Phone: [facility] 01-15-2023 08:14-0400 Body height 157.5 cm Clifford Nicolas DPM Work Phone: [facility] 01-15-2023 08:14-0400 Body weight 52.16 kg Clifford Nicolas DPM Work Phone: [facility] 01-15-2023 08:14-0400 Respiratory rate 16 /min Clifford Nicolas DPM Work Phone: [facility] 12-04-2022 08:42-0400 Body height 157.5 cm Clifford Nicolas DPM Work Phone: [facility] 12-04-2022 08:42-0400 Body weight 52.16 kg Clifford Nicolas DPM Work Phone: [facility] 12-04-2022 08:42-0400 Respiratory rate 16 /min Clifford Nicolas DPM Work Phone: [facility] 11-28-2022 07:45-0400 Body temperature 97.59 [degF] Gurdeep Christine MD Work Phone: [facility] 11-28-2022 07:45-0400 Body weight 52.28 kg Gurdeep Christine MD Work Phone: [facility] 11-28-2022 07:45-0400 Heart rate 70 /min Gurdeep Christine MD Work Phone: [facility] 11-28-2022 07:45-0400 Respiratory rate 18 /min Gurdeep Christine MD Work Phone: [facility] 10-25-2022 10:45-0400 Body temperature 97.3 [degF] Clifford Nicolas DPM Work Phone: [facility] 10-25-2022 10:45-0400 Diastolic blood pressure 75 mm[Hg] Clifford Nicolas DPM Work Phone: [facility] 10-25-2022 10:45-0400 Heart rate 79 /min Clifford Nicolas DPM Work Phone: [facility] 10-25-2022 10:45-0400 Respiratory rate 23 /min Clifford Nicolas DPM Work Phone: [facility] 10-25-2022 10:45-0400 SaO2% (BldA) [Mass fraction] 100 % Clifford Nicolas DPM Work Phone: [facility] 10-25-2022 10:45-0400 Systolic blood pressure 111 mm[Hg] Clifford Nicolas DPM Work Phone: [facility] 10-25-2022 07:12-0400 Body height 157.5 cm Clifford Nicolas DPM Work Phone: [facility] 10-25-2022 07:12-0400 Body weight 54.43 kg Clifford Nicolas DPM Work Phone: [facility] 10-18-2022 09:36-0400 Body height 157.5 cm Pst 1 [facility] 10-18-2022 09:36-0400 Body temperature 98.8 [degF] Pst 1 [facility] 10-18-2022 09:36-0400 Body weight 54.43 kg Pst 1 [facility] 10-18-2022 09:36-0400 Diastolic blood pressure 82 mm[Hg] Pst 1 [facility] 10-18-2022 09:36-0400 Heart rate 87 /min Pst 1 [facility] 10-18-2022 09:36-0400 Respiratory rate 18 /min Pst 1 [facility] 10-18-2022 09:36-0400 SaO2% (BldA) [Mass fraction] 100 % Pst 1 [facility] 10-18-2022 09:36-0400 Systolic blood pressure 114 mm[Hg] Pst 1 [facility] 09-04-2022 08:12-0500 Body height 157.5 cm Clifford Nicolas DPM Work Phone: [facility] 09-04-2022 08:12-0500 Body weight 55.34 kg Clifford Nicolas DPM Work Phone: [facility] 09-04-2022 08:12-0500 Respiratory rate 20 /min Clifford Nicolas DPM Work Phone: [facility] 08-09-2022 14:41-0500 Body height 157.5 cm Clifford Nicolas DPM Work Phone: [facility] 08-09-2022 14:41-0500 Body weight 54.43 kg Clifford Nicolas DPM Work Phone: [facility] 08-09-2022 14:41-0500 Respiratory rate 18 /min Clifford Nicolas DPM Work Phone: [facility] 07-18-2022 08:51-0500 Body height 157.5 cm Clifford Nicolas DPM Work Phone: [facility] 07-18-2022 08:51-0500 Body temperature 98.2 [degF] Clifford Nicolas DPM Work Phone: [facility] 07-18-2022 08:51-0500 Body weight 54.43 kg Clifford Nicolas DPM Work Phone: [facility] 06-05-2022 09:20-0500 Body height 157.5 cm Clifford Nicolas DPM Work Phone: [facility] 06-05-2022 09:20-0500 Body weight 53.52 kg Clifford Nicolas DPM Work Phone: [facility] 06-05-2022 09:20-0500 Respiratory rate 20 /min Clifford Nicolas DPM Work Phone: [facility] 02-11-2022 10:17-0400 Body temperature 98.01 [degF] Zari Noblesericsofiya DIGITAL SPECIALIST.SUPERVISOR [employer] Work Phone: [facility] 02-11-2022 10:17-0400 Diastolic blood pressure 81 mm[Hg] Zari Nobleserich DIGITAL SPECIALIST.SUPERVISOR [employer] Work Phone: [facility] 02-11-2022 10:17-0400 Heart rate 75 /min Zari Diederich DIGITAL SPECIALIST.SUPERVISOR [employer] Work Phone: [facility] 02-11-2022 10:17-0400 Respiratory rate 16 /min Zaripatrick Nobleserich DIGITAL SPECIALIST.SUPERVISOR [employer] Work Phone: [facility] 02-11-2022 10:17-0400 SaO2% (BldA) [Mass fraction] 97 % Zari Hager DIGITAL SPECIALIST.SUPERVISOR [employer] Work Phone: [facility] 02-11-2022 10:17-0400 Systolic blood pressure 117 mm[Hg] Zari Hager DIGITAL SPECIALIST.SUPERVISOR [employer] Work Phone: [facility] 11-26-2021 08:45-0400 Body mass index (BMI) [Percentile] Per age and sex 62.13 % Yahaira Arnulfo DIGITAL SPECIALIST.SUPERVISOR [employer] Work Phone: [facility] 11-26-2021 08:45-0400 Body temperature 98.6 [degF] Yahaira Arnulfo DIGITAL SPECIALIST.SUPERVISOR [employer] Work Phone: [facility] 11-26-2021 08:45-0400 Body weight 54.43 kg Yahaira Arnulfo DIGITAL SPECIALIST.SUPERVISOR [employer] Work Phone: [facility] 11-26-2021 08:45-0400 Diastolic blood pressure 62 mm[Hg] Yahaira Arnulfo DIGITAL SPECIALIST.SUPERVISOR [employer] Work Phone: [facility] 11-26-2021 08:45-0400 Heart rate 106 /min Yahaira Arnulfo DIGITAL SPECIALIST.SUPERVISOR [employer] Work Phone: [facility] 11-26-2021 08:45-0400 Respiratory rate 16 /min Yahaira Arnulfo DIGITAL SPECIALIST.SUPERVISOR [employer] Work Phone: [facility] 11-26-2021 08:45-0400 SaO2% (BldA) [Mass fraction] 99 % Yahaira Arnulfo DIGITAL SPECIALIST.SUPERVISOR [employer] Work Phone: [facility] 11-26-2021 08:45-0400 Systolic blood pressure 102 mm[Hg] Yahaira Arnulfo DIGITAL SPECIALIST.SUPERVISOR [employer] Work Phone: [facility] 10-09-2021 15:07-0400 Body height 154.9 cm Clifford ALMONTE Work Phone: [facility] 10-09-2021 15:07-0400 Body mass index (BMI) [Percentile] Per age and sex 58.61 % Clifford Valenzuela DPM Work Phone: [facility] 10-09-2021 15:07-0400 Body weight 53.52 kg Clifford Valenzuela DPM Work Phone: [facility] 10-09-2021 15:07-0400 Respiratory rate 17 /min Clifford Valenzuela DPM Work Phone: [facility] 10-01-2021 09:29-0400 Body height 157 cm Beckie Juarez DIGITAL SPECIALIST.SUPERVISOR [employer] Work Phone: [facility] 10-01-2021 09:29-0400 Body mass index (BMI) [Percentile] Per age and sex 53.08 % Beckie Juarez DIGITAL SPECIALIST.SUPERVISOR [employer] Work Phone: [facility] 10-01-2021 09:29-0400 Body temperature 98.2 [degF] Beckie Juarez DIGITAL SPECIALIST.SUPERVISOR [employer] Work Phone: [facility] 10-01-2021 09:29-0400 Body weight 53.75 kg Beckie Juarez DIGITAL SPECIALIST.SUPERVISOR [employer] Work Phone: [facility] 10-01-2021 09:29-0400 Diastolic blood pressure 76 mm[Hg] Beckie Juarez DIGITAL SPECIALIST.SUPERVISOR [employer] Work Phone: [facility] 10-01-2021 09:29-0400 Heart rate 76 /min Beckie Juarez DIGITAL SPECIALIST.SUPERVISOR [employer] Work Phone: [facility] 10-01-2021 09:29-0400 Respiratory rate 16 /min Beckie Juarez DIGITAL SPECIALIST.SUPERVISOR [employer] Work Phone: [facility] 10-01-2021 09:29-0400 Systolic blood pressure 102 mm[Hg] Beckie Juarez DIGITAL SPECIALIST.SUPERVISOR [employer] Work Phone: [facility] NEGATED: Highlighted [id number] 13:39-0400 BMI (Body Mass Index) 23.86 kg/m2 [facility] [place] [facility] Work Phone: NEGATED: Highlighted [id number] 13:39-0400 Body weight 58.97 kg [facility] Work Phone: NEGATED: Highlighted [id number] 13:39-0400 Body weight 59 kg [facility] Work Phone: NEGATED: Highlighted [id number] 13:39-0400 BP Diastolic 80 mm[Hg] [facility] Work Phone: NEGATED: Highlighted [id number] 13:39-0400 BP Systolic 118 mm[Hg] [facility] Work Phone: NEGATED: Highlighted [id number] 13:39-0400 Heart rate 2+ [facility] Work Phone: NEGATED: Highlighted [id number] 13:39-0400 Height 157.48 cm [facility] Work Phone: NEGATED: Highlighted [id number] 13:39-0400 Height 157 cm [facility] Work Phone: NEGATED: Highlighted [id number] 13:39-0400 Pulse (Heart Rate) 80 /min [facility] Work Phone: Encounters Encounter Date Encounter Type Care Provider Facility Start: 06-24-2023 ambulatory Zoran MEZA.SUPERVISOR [employer] Work Phone: [facility] Start: 06-24-2023 Follow-up encounter Zoran Medina on DIGITAL SPECIALIST.SUPERVISOR [employer] Work Phone: Neurology Procedures Date Procedure Procedure [...] 02-09-2022 Adult depression screening assessment Zari Hager DIGITAL SPECIALIST.SUPERVISOR [employer] Work Phone: Start: 12-30-2021 Adult depression screening assessment Eileen Boswelle Work Phone: Start: 10-08-2021 Skin test tuberculos is intradermal Alannah Guthrie MD Work Phone: Start: 10-01-2021 Skin test tuberculos is intradermal Beckie Juarez DIGITAL SPECIALIST.SUPERVISOR [employer] Work Phone: Start: 10-01-2021 Adult depression screening assessment Beckie Juarez DIGITAL SPECIALIST.SUPERVISOR [employer] Work Phone: Start: 09-12-2020 Adult depression screening assessment Clifford Nicolas DPM Work Phone: Start: 02-05-2019 End: 02-05-2019 Adolescent tobacco screening was negative - non user Albert Hilario MD Work Phone: NEGATED: Highlighted rowStart: 02-05-2019 End: 02-05-2019 Documentation of current medications [facility] Plan of Treatment Date Care Activity Detail Author Start: 01-20-2025 Urine microalbumin profile [facility] Start: 11-29-2023 ANNUAL PCP TEAM INTERCHANGE AGENT FROYLAN DISEASE VISIT ANNUAL PCP TEAM CHRONIC DISEASE VISIT [facility] Start: 11-21-2023 ASTHMA ACTION PLAN ASTHMA ACTION BIENVENIDO N [facility] Start: 11-01-2023 ANNUAL PCP TEAM INTERCHANGE AGENT FROYLAN DISEASE VISIT ANNUAL PCP TEAM CHRONIC DISEASE VISIT [facility] Start: 08-29-2023 ANNUAL PCP TEAM INTERCHANGE AGENT FROYLAN DISEASE VISIT ANNUAL PCP TEAM CHRONIC DISEASE VISIT [facility] Start: 03-25-2023 ANNUAL PCP TEAM INTERCHANGE AGENT FROYLAN DISEASE VISIT ANNUAL PCP TEAM CHRONIC DISEASE VISIT [facility] Start: 03-07-2023 Covid-19 Vaccine ( season) Covid-19 Vaccine ( season) [facility] Start: 03-07-2023 Influenza vaccination INFLUENZA (#1) [facility] Start: 02-09-2023 Adult depression screening assessment DEPRESSION SCREENING [facility] Start: 12-30-2022 Adult depression screening assessment DEPRESSION SCREENING [facility] Start: 10-10-2022 ANNUAL PCP TEAM INTERCHANGE AGENT FROYLAN DISEASE VISIT ANNUAL PCP TEAM CHRONIC DISEASE VISIT [facility] Start: 10-08-2022 ANNUAL PCP TEAM INTERCHANGE AGENT FROYLAN DISEASE VISIT ANNUAL PCP TEAM CHRONIC DISEASE VISIT [facility] Start: 10-03-2022 ANNUAL PCP TEAM INTERCHANGE AGENT FROYLAN DISEASE VISIT ANNUAL PCP TEAM CHRONIC DISEASE VISIT [facility] Start: 10-01-2022 Adult depression screening assessment DEPRESSION SCREENING [facility] Start: 10-01-2022 ANNUAL PCP TEAM INTERCHANGE AGENT FROYLAN DISEASE VISIT ANNUAL PCP TEAM CHRONIC DISEASE VISIT [facility] Start: 10-01-2022 ASTHMA CONTROL TEST ASTHMA CONTROL T EST [facility] Start: 08-27-2022 ANNUAL PCP TEAM INTERCHANGE AGENT FROYLAN DISEASE VISIT ANNUAL PCP TEAM CHRONIC DISEASE VISIT [facility] Start: 07-07-2022 DEPRESSION ASSESSMENT DEPRESSION ASS ESSMENT [facility] Start: 03-07-2022 Influenza vaccination INFLUENZA (#1) [facility] Start: 01-14-2022 End: 03-16-2022 aPTT in Platelet poor plasma by Coagulation assay [facility] Work Phone: Immunizations Immunization Date Immunization Notes Care Provider Sara lafleur 03-25-2022 influenza, injectabl e, quadrivalent, contains preservative Clifford Valenzuela DPGabrielle Work Phone: [facility] 05-12-2021 influenza, injectabl e, quadrivalent, contains preservative Clifford Valenzuela DPM Work Phone: [facility] 10-21-2020 COVID-19 vaccine, ag e 12+ yr ([employer] - [facility]) Clifford Valenzuela DPGabrielle Work Phone: [facility] 09-30-2020 COVID-19 vaccine, ag e 12+ yr (PFIZER-BIONTAppear - PURPLE TOP) Clifford Valenzuela DPM Work Phone: [facility] 08-19-2020 varicella virus vaccine Edie Juarez DIGITAL SPECIALIST.SUPERVISOR [employer]ANING Work Phone: [facility] 05-19-2020 influenza, injectabl e, quadrivalent, contains preservative Clifford Valenzuela DPM Work Phone: [facility] Work Phone: 01-19-2020 meningococcal polysaccharide (groups A, C, Y and W-135) diphtheria toxoid conjugate vaccine (MCV4P) Clifford Valenzuela DPM Work Phone: [facility] 05-27-2019 influenza, injectabl e, quadrivalent, contains preservative Clifford Valenzuela DPM Work Phone: [facility] Work Phone: 05-28-2016 meningococcal polysaccharide (groups A, C, Y and W-135) diphtheria toxoid conjugate vaccine (MCV4P) Clifford Valenzuela DPM Work Phone: [facility] 04-30-2016 influenza, injectabl e, quadrivalent, contains preservative Clifford Valenzuela DPM Work Phone: [facility] Work Phone: 01-20-2015 tetanus toxoid, redu odilon diphtheria toxoid, and acellular pertussis vaccine, adsorbed Clifford Valenzuela DPM Work Phone: [facility] Work Phone: 05-04-2014 influenza, seasonal, injectable Clifford Valenzuela DPM Work Phone: [facility] 05-16-2012 influenza virus vacc ine, unspecified formulation Clifford Valenzuela DPM Work Phone: [facility] 04-06-2011 influenza virus vacc ine, unspecified formulation Clifford Valenzuela DPM Work Phone: [facility] 05-12-2010 influenza virus vacc ine, unspecified formulation Clifford Valenzuela DPM Work Phone: [facility] 04-08-2009 influenza virus vacc ine, unspecified formulation Clifford Valenzuela DPM Work Phone: [facility] Work Phone: 05-11-2008 influenza virus vacc ine, unspecified formulation Clifford Valenzuela DPM Work Phone: [facility] Work Phone: 09-23-2007 diphtheria, tetanus toxoids and acellular pertussis vaccine Clifford Valenzuela DPM Work Phone: [facility] Work Phone: 09-23-2007 measles, mumps and rubella virus vaccine Clifford Valenzuela DPM Work Phone: [facility] Work Phone: 09-23-2007 poliovirus vaccine, inactivated Clifford Valenzuela DPM Work Phone: [facility] Work Phone: 05-06-2007 influenza virus vacc ine, unspecified formulation Clifford Valenzuela DPM Work Phone: [facility] Work Phone: 05-08-2006 influenza virus vacc ine, unspecified formulation Clifford Valenzuela DPM Work Phone: [facility] Work Phone: 04-12-2004 pneumococcal conjuga te vaccine, 7 valent Clifford Valenzuela DPM Work Phone: [facility] Work Phone: 12-09-2003 diphtheria, tetanus toxoids and acellular pertussis vaccine Clifford Valenzuela DPM Work Phone: [facility] Work Phone: 12-09-2003 varicella virus vaccine Canelo guerrero Nicolas DPM Work Phone: [facility] Work Phone: 09-07-2003 haemophilus influenz ae type b vaccine, HbOC conjugate Clifford Valenzuela DPM Work Phone: [facility] Work Phone: 09-07-2003 measles, mumps and rubella virus vaccine Clifford Valenzuela DPM Work Phone: [facility] Work Phone: 06-14-2003 hepatitis B vaccine, pediatric or pediatric/adolescent dosage Clifford Valenzuela DPM Work Phone: [facility] Work Phone: 06-01-2003 influenza virus vacc ine, unspecified formulation Clifford Valenzuela DPM Work Phone: [facility] Work Phone: 05-02-2003 influenza virus vacc ine, unspecified formulation Clifford Valenzuela DPM Work Phone: [facility] Work Phone: 03-10-2003 diphtheria, tetanus toxoids and acellular pertussis vaccine Clifford Valenzuela DPM Work Phone: [facility] Work Phone: 03-10-2003 haemophilus influenz ae type b vaccine, HbOC conjugate Clifford Valenzuela DPM Work Phone: [facility] Work Phone: 03-10-2003 pneumococcal conjuga te vaccine, 7 valent Clifford Valenzuela DPM Work Phone: [facility] Work Phone: 03-10-2003 poliovirus vaccine, inactivated Clifford Valenzuela DPM Work Phone: [facility] Work Phone: 01-11-2003 diphtheria, tetanus toxoids and acellular pertussis vaccine Clifford Valenzuela DPM Work Phone: [facility] Work Phone: 01-11-2003 haemophilus influenz ae type b vaccine, HbOC conjugate Clifford Valenzuela DPM Work Phone: [facility] Work Phone: 01-11-2003 pneumococcal conjuga te vaccine, 7 valent Clifford Valenzuela DPM Work Phone: [facility] Work Phone: 01-11-2003 poliovirus vaccine, inactivated Clifford Valenzuela DPM Work Phone: [facility] Work Phone: 2002 diphtheria, tetanus toxoids and acellular pertussis vaccine Clifford Valenzuela DPM Work Phone: [facility] Work Phone: 2002 haemophilus influenz ae type b vaccine, HbOC conjugate Clifford Valenzuela DPM Work Phone: [facility] Work Phone: 2002 pneumococcal conjuga te vaccine, 7 valent Clifford Valenzuela DPM Work Phone: [facility] Work Phone: 2002 poliovirus vaccine, inactivated Clifford Valenzuela DPM Work Phone: [facility] Work Phone: 2002 hepatitis B vaccine, pediatric or pediatric/adolescent dosage Clifford Valenzuela DPM Work Phone: [facility] Work Phone: 2002 hepatitis B vaccine, pediatric or pediatric/adolescent dosage Clifford Valenzuela DPM Work Phone: [facility] Work Phone: Payers Date Payer Category Payer Private Health Insurance [id number] 2022 Private Health Insurance [id number] 2022 Private Health Insurance [id number] 2018 Unknown DEANDRE JIMENES PPO [id number] 2018-Present [phone] [facility] [id number] [place] [address] PPO [id number] 2011 Unknown [id number] 1977 Unknown [id number] 479 1977 Unknown [id number] 479 1977 Unknown [id number] 479 1977 Unknown [id number] 479 1977 Unknown [id number] 479 1976 Unknown [id number] 479 1976 Unknown [id number] 479 1976 Unknown [id number] 479 1976 Unknown [id number] 479 Unknown [id number] Unknown [id number] Social History Date Type Detail Facility Start: 02-05-2019 End: 02-05-2019 Assertion Unknown if ever smoked [facility] Work Phone: Start: 08-29-2022 Tobacco smoking stat [facility] Never smoked tobacco [facility] Start: 08-27-2021 End: 06-23-2023 Alcohol intake Current non-drinker of alcohol (finding) [facility] Start: 2000 Sex Assigned At Female [facility] Start: 09-15-2021 End: 09-25-2021 Exposure to SARS-CoV-2 (event) Unable to assess [facility] Start: 10-01-2021 History SDOH Alcohol Frequency 1 [facility] Start: 10-01-2021 History SDOH Alcohol Std Drinks 98 [facility] Start: 10-01-2021 History SDOH Social Connections Phone 5 [facility] Start: 10-01-2021 History SDOH Social Connections Get Together 4 [facility] Start: 10-01-2021 History SDOH Social Connections Oriental Orthodox 3 [facility] Start: 10-01-2021 History SDOH Social Connections Living 7 [facility] Start: 10-01-2021 History SDOH Physica l Activity MPS 6 [facility] Start: 10-01-2021 History SDOH Stress 2 [facility] Start: 09-21-2021 End: 06-05-2022 Exposure to SARS-CoV-2 (event) Not sure [facility] Start: 08-29-2022 Tobacco use and exposure Smokeless tobacco non-user [facility] Start: 10-01-2021 End: 11-06-2022 History of Social function [facility] Start: 10-01-2021 End: 11-06-2022 Social connection and isolation panel [facility] Do you belong to any clubs or organizations such as orthodox groups, unions, fraternal or athletic groups, or school groups? Yes [facility] Are you now , , , , never or living with a partner? Never [facility] How often to you hav e a drink containing alcohol? Never [facility] How many standard drinks containing alcohol do you have on a typical day? Patient refused [facility] Do you feel stress - tense, restless, nervous, or anxious, or unable to sleep at night because your mind is troubled all the time - these days [OSQ] Only a little [facility] (I/We) worried lizzy er (my/our) food would run out before (I/we) got money to buy more. Never true [facility] In the past 12 month s, was there a time when you were not able to pay the mortgage or rent on time? No [facility] Start: 05-10-2020 Gender identity Identifies as female gender (finding) [facility] Start: 05-10-2020 Sexual orientation Heterosexua l (finding) [facility] NEGATED: Highlighted rowStart: NINF History of tobacco use Passive smoker [facility] Medical Equipment Procedure Code Equipment Code Equipment Origin al Text Equipment Identifier Dates Mini Headless Sc rew 2.5mm X 40mm [id number] Start: 05-29-2022 Wire Abdullahi .035in 2 Trocar 5.5in Fixation - [id number] Start: 05-29-2022 Mini 2.5mm Heade d Cannulated Screw 40mm [id number] Start: 10-25-2022 Clinical Notes 04-24-2020 to 06-23-2023 Clifford Valenzuela Albert, RILEY - 05/25/2023 9:27 AM ESTPatient InstructionsGrClifford cunningham RILEY Price - 04/30/2023 11:16 AM Janina Baig LPN - 04/30/2023 10:23 AM EDT Note Date & Type Note Facility 06-23-2023 Note HNO ID: [id number] Author: Zoran Beasely APRN.SUPERVISOR [employer] CLEANING Service: ? Author Type: Nurse Practitioner Type: [...] she will note the headache returning. Her retention manager is requesting [facility] paperwork be filled out for if [...] history includes Allergies (more content not included)... [facility] 05-25-2023 Note HNO ID: [id number] Author: Clifford aVlenzuela DPM Service: ? Author Type: Physician Type: [...] plan unless otherwise noted. Clifford Valenzuela DPM, [facility] 05-25-2023 History of Present illness Narrative CC: [...] Valenzuela DPM, FACFAS documented in this encounter [facility] 04-30-2023 Note HNO ID: [id number] Author: Clifford Valenzuela DPM Service: ? Author [...] treatment options fo (more content not included)... [facility] 04-30-2023 Note HNO ID: [id number] Author: Janina Adams LPN Service: ? Author Type: LICENSED NURSE Type: Progress Notes Filed: 05/19/2023 7:39 PM Note Text: Prepared two 3 cc syringes each containing 2.5 cc Lidocaine and 2.5 cc Bupivacaine with 25 gauge needles and gave to MD for injection of bilateral feet - Janina Adams LPN [facility] 04-30-2023 Note HNO ID: [id number] Author: Kenzie Schaefer MA Service: ? Author Type: Dress Marker Type: Progress Notes Filed: 05/19/2023 7:39 PM [...] bleeding, clots, bleeding disorders. Kenzie Schaefer MA [facility] 04-30-2023 Instructions Cami Thrasher DPM - 04/30/2023 11:17 AM EDT Epsom salt soaks. Band aid and documented in this encounter [facility] 04-30-2023 History of Present illness Narrative Associated [...] Valenzuela DPM Informed Consent Consent Obtained: Verbal [place] Protocol SIGN IN Personnel directly involved with [...] Valenzuela DPM Informed Consent Consent Obtained: Verbal [place] Protocol SIGN IN Personnel directly involved with [...] Kenzie Schaefer MA documented in this encounter [facility] 02-26-2023 Miscellaneous Notes Last OV: 12/03/2022 Last Refill: 08/22/2022 F/U OV: N/A Appropriate for refill. You did take this over in June 2020. Not sure why Dr. Gutiérrez ordered for her in Aug 2022. She did message in and request this. Routed to [place] for review. AZUL Rudd, RN, BA documented in this encounter [facility] 01-20-2023 Miscellaneous Notes Notified pt of message below, she verbalized understanding and denies any questions at this time. Refill was re-sent to [facility] Adenike Simmons MD Reason for Disposition Prescription refill request for a controlled substance (such as most ADHD meds or narcotics) Answer Assessment - Initial Assessment Questions Pt calling to request that her Concerta please be canceled at [facility] and resent to [facility] pharmacy in [place] instead. He medication is currently out of stock at [facility]. Protocols used: Medication Question [id number] Pt is currently due for refill of her Concerta. The script had been electronically sent to [facility] pharmacy but they do not have the medication in stock. Pt requesting script be cancelled at [facility] and resent to [facility] in [place]. Pharmacy preference updated. Routed to provider for review. Please advise. documented in this encounter [facility] 01-18-2023 Note HNO ID: [id number] Author: Clifford Valenzuela DPM Service: ? Author [...] plan unless otherwise noted. Clifford Valenzuela DPM, [facility] 01-18-2023 History of Present illness Narrative DOS: [...] Valenzuela DPM, FACFAS documented in this encounter [facility] 12-18-2022 Miscellaneous Notes Please review and assist. documented in this encounter [facility] 12-16-2022 Note HNO ID: [id number] Author: RT Antoinette(R) Service: ? Author Type: Workday Director Type: Progress Notes Filed: 12/16/2022 4:34 PM [...] RT Antoinette(R) December 16, 2022 4:34 PM [facility] 12-16-2022 History of Present illness [...] 2022 4:34 PM documented in this encounter [facility] 12-11-2022 Note HNO ID: [id number] Author: Vanna Aleman MD Service: ? Author Type: Physician Type: Progress Notes Filed: 12/11/2022 8:28 AM Note Text: [facility] Department of Dermatology VIRTUAL VISIT PROGRESS NOTE This is a virtual visit. It required patient-provider interaction for the medical decision making as documented below. This visit was completed via [employer]. Discussed with patient limitations of virtual software with assessment of skin disease/lesions. Pt acknowledged and consented to visit. Chief Complaint: rash Date of last visit to [facility] Dermatology: new patient History of Present Illness: [...] Skin exam normal with the exception of: [place] skin colored papules around nose and [...] condition or if any new/changing/symptomatic lesions arise. Chrome Tanner Attestation: The documentation for this note was completed by Lou Chowdary Ma acting as scribe for Vanna Aleman MD. December 10, 2022 4:46 PM. I have communicated my name and active licensure. The patient's identity and physical location were verified at the time of this visit. Either the patient or their legal freight representative has been informed of the risks and benefits of -- and alternatives to -- treatment through a remote evaluation and consents to proceed with the evaluation remotely. I agree with the Chief Complaint, ROS, and Past Histories independently gathered by the clinical direct support staff and the remaining scribed note accurately describes my personal service to the patient. Vanna Aleman MD [facility] 12-11-2022 History of Present illness Narrative [facility] Department of Dermatology VIRTUAL VISIT PROGRESS NOTE This is a virtual visit. It required patient-provider interaction for the medical decision making as documented below. This visit was completed via [employer]. Discussed with patient limitations of virtual software with assessment of skin disease/lesions. Pt acknowledged and consented to visit. Chief Complaint: rash Date of last visit to [facility] Dermatology: new patient History of Present Illness: [...] Skin exam normal with the exception of: [place] skin colored papules around nose and [...] condition or if any new/changing/symptomatic lesions arise. Chrome Tanner Attestation: The documentation for this note was completed by Lou Chowdary Ma acting as scribe for Vanna Aleman MD. December 10, 2022 4:46 PM. I have communicated my name and active licensure. The patient's identity and physical location were verified at the time of this visit. Either the patient or their legal freight representative has been informed of the risks and benefits of -- and alternatives to -- treatment through a remote evaluation and consents to proceed with the evaluation remotely. I agree with the Chief Complaint, ROS, and Past Histories independently gathered by the clinical direct support staff and the remaining scribed note accurately describes my personal service to the patient. Vanna Aleman MD documented in this encounter [facility] 12-04-2022 Note HNO ID: [id number] Author: Clifford Valenzuela DPM Service: ? Author [...] plan unless otherwise noted. Clifford Valenzuela DPM, [facility] 12-04-2022 History of Present illness Narrative DOS: [...] Valenzuela DPM, FACFAS documented in this encounter [facility] 12-03-2022 Note HNO ID: [id number] Author: Zoran Beasley APRN.SUPERVISOR [employer] CLEANING Service: ? Author Type: Nurse Practitioner Type: [...] visit. Either the patient or their legal freight representative has been informed of the risks [...] which included preparing to see the patient, [id number] patient care, completing clinical documentation, obtaining and/or reviewing separately obtained history, and counseling and educating the patient/family/caregiver. (more content not included)... [facility] 11-28-2022 Note HNO ID: [id number] Author: Gurdeep Christine MD Service: ? Author [...] CREAM recheck 2 weeks Gurdeep Christine MD [facility] 11-28-2022 History of Present illness [...] Gurdeep Christine MD documented in this encounter [facility] 11-20-2022 Note HNO ID: [id number] Author: Eileen Gutiérrez, DO Service: ? Author Type: Physician Type: Progress Notes Filed: 11/20/2022 10:08 AM Note Text: 22 year old here for hospital follow up for mid-epigastric abdominal pain. Pain has definitely decreased but is still present. Stooling 2-3 times daily with miralax every 2-3 days Taking protonix 40 mg. Getting MRI abdomen in December. Followed by GI in [place]( outside of [facility]). Does belch a lot, [...] continue Concerta 18 mg Eileen Gutiérrez DO [facility] 11-07-2022 Note HNO ID: [id number] Author: Clifford Valenzuela DPM Service: ? Author [...] unless otherwise noted. Clifford Valenzuela DPM, FACFAS [facility] 11-04-2022 Note HNO ID: [id number] Author: Hailey Mitchell MD Service: Hospital Medicine Author Type: Physician Type: Progress Notes Filed: 11/04/2022 2:28 PM Note Text: DEPARTMENT OF HOSPITAL MEDICINE PROGRESS NOTE SERVICE DATE: 11/04/2022 SERVICE TIME: 2:25 PM Hospital Medicine/Primary Attending: Hailey Mitchell MD NIGHT AND WEEKEND COVERAGE: [employer] COVERAGE: Days: [phone], please page attending physician. Nights: [phone], please page [place] [facility] Night coverage pager [phone]. Subjective INTERVAL HPI: Patient was seen and [...] -- -- 1.0 HGBB -- -- 15.3 [id number] -- -- RA=Room Air < > = [...] results for in (more content not included)... [facility] 11-03-2022 Note HNO ID: [id number] Author: Hailey Mitchell MD Service: Hospital Medicine Author Type: Physician Type: Progress Notes Filed: 11/03/2022 3:16 PM Note Text: DEPARTMENT OF HOSPITAL MEDICINE PROGRESS NOTE SERVICE DATE: 11/03/2022 SERVICE TIME: 3:12 PM Hospital Medicine/Primary Attending: Hailey Mitchell MD NIGHT AND WEEKEND COVERAGE: [employer] COVERAGE: Days: [phone], please page attending physician. Nights: [phone], please page [facility] Night coverage pager [phone]. Subjective INTERVAL HPI: Patient was seen and [...] -- -- 1.0 HGBB -- -- 15.3 [id number] -- -- RA=Room Air < > = [...] UAMPH, UTHC, UOP (more content not included)... [facility] documented as of this encounter (statuses as of 11/09/2022) [facility] History of Past illness Narrative* Problem Noted [...] of this encounter (statuses as of 11/18/2022) [facility] History of Past illness Narrative* Problem Noted [...] of this encounter (statuses as of 12/04/2022) [facility] History of Past illness Narrative* Problem Noted [...] of this encounter (statuses as of 12/05/2022) [facility] History of Past illness Narrative* Problem Noted [...] of this encounter (statuses as of 12/09/2022) [facility] History of Past illness Narrative* Problem Noted [...] of this encounter (statuses as of 12/11/2022) [facility] History of Past illness Narrative* Problem Noted [...] of this encounter (statuses as of 12/19/2022) [facility] History of Past illness Narrative* Problem Noted [...] of this encounter (statuses as of 01/18/2023) [facility] History of Past illness Narrative* Problem Noted [...] of this encounter (statuses as of 01/20/2023) [facility] History of Past illness Narrative* Problem Noted [...] of this encounter (statuses as of 02/05/2023) [facility] History of Past illness Narrative* Problem Noted [...] of this encounter (statuses as of 02/27/2023) [facility] History of Past illness Narrative* Problem Noted [...] of this encounter (statuses as of 02/27/2023) [facility] History of Past illness Narrative* Problem Noted [...] of this encounter (statuses as of 05/11/2023) [facility] History of Past illness Narrative* Problem Noted [...] of this encounter (statuses as of 05/20/2023) [facility] History of Past illness Narrative* Problem Noted [...] of this encounter (statuses as of 06/11/2023) [facility] History of Past illness Narrative* Problem Noted [...] of this encounter (statuses as of 06/26/2023) [facility]04-29-2023 NoteHNO ID: [id number] Author: Hailey Mitchell MD Service: Hospital Medicine Author Type: Physician Type: Progress Notes Filed: 11/02/2022 5:08 PM Note Text: DEPARTMENT OF HOSPITAL MEDICINE PROGRESS NOTE SERVICE DATE: 11/02/2022 SERVICE TIME: 5:03 PM Hospital Medicine/Primary Attending: Hailey Mitchell MD NIGHT AND WEEKEND COVERAGE: [employer] COVERAGE: Days: [phone], please page attending physician. Nights: [phone], please page [facility] Night coverage pager [phone]. Subjective INTERVAL HPI: Patient was seen and [...] -- -- 1.0 HGBB -- -- 15.3 [id number] -- -- RA=Room Air < > = [...] CSFPROT, CSFGLUC, CSFSR, CSFSTF (more content not included)...[id number] NoteHNO ID: [id number] Author: Jesus Gee MD Service: Hospital Medicine [...] clot prevention: low risk SIGNATURE: Jesus Gee, [id number] History of Past illness Narrative* Problem Noted [...] of this encounter (statuses as of 11/05/2022) [facility]04-27-2023 NoteHNO ID: [id number] Author: Rosales Sanders APRN.SUPERVISOR [employer] CLEANING Service: ? Author Type: Nurse Practitioner Type: [...] % 43.7 MCV 80.0 (more content not included)...[facility]04-21-2023 History of Past illness Narrative* [...] of this encounter (statuses as of 10/26/2022) [facility]04-21-2023 NoteHNO ID: [id number] Author: Peyton Pederson RN Service: Nursing Author Type: Registered Nurse Type: Nursing Progress Note Filed: 10/25/2022 9:44 AM Note Text: Xrays done right foot.[facility]04-21-2023 NoteHNO ID: [id number] Author: Arslan Bui APRN.CRNA Service: Nursing Author Type: Nurse Power Lineworker Type: Anesthesia Procedure Notes Filed: 10/25/2022 8:23 AM Note Text: ANESTHESIOLOGY PROCEDURE NOTE Airway General Information Procedure Start Time/Medication Administration: 10/25/2022 8:14 AM Patient location during procedure: OR Timeout Performed Pre-procedure: timeout performed Consent Obtained: Yes Patient 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 Staffing FIRE SUPPORT SPECIALIST: Arslan Bui APRN.FIRE SUPPORT SPECIALIST Performed by: SONDRA Indications and Patient [...] October 25, 2022 TIME: 8:23 AM CSN: [id number] Miscellaneous Notes* Allied Health - RT [...] (Walker, Cane, Wheelchair, Crutches, etc.)? [facility] PATIENT GENDER DATA: Female. status: : No status: NO. PATIENT RELEVANT IMPLANT DATA REVIEWED: Not Applicable RADIOLOGY DEPARTMENT: General X-ray: Exam(s) Completed: Lower Extremity X- Ray(s): Foot, Right PERIPHERAL IV DATA: Not applicable SIGNED BY: RT Bhupendra(R) October 25, 2022 9:52 AM documented in this encounterUniversity [facility]als [facility] Nurse Note* Peyton Pederson RN - 10/25/2022 9:44 AM EDT Xrays done right foot. documented in this encounterUniversity Hospitals [facility]23 History and physical note * Clifford Valenzuela [...] 9:03 AM Source Note - Sahara Barrett APRN.SUPERVISOR DRY CLEANING - 10/18/2022 9:20 AM EDT HISTORY AND [...] or any previous visit (from the past 52079 hour(s)). Assessment Patient has the following medical [...] well with Propofol. Had surgery 05/2022 at [facility] and had no significant anesthesia events. [...] which included preparing to see the patient, bzbi-[id number] patient care, completing clinical documentation, obtaining and/or [...] 1:39 PM PAGER/CONTACT #: documented in this encounterUniversity Hospitals [facility]23 History and physical note * Sahara Barrett APRN.CNP - 10/18/2022 9:20 AM EDT HISTORY AND PHYSICAL EXAMINATION SERVICE DATE: 10/15/2022 SERVICE TIME: 10:30 AM PRIMARY CARE PHYSICIAN: Eileen Gutiérerz DO REASON FOR VISIT: Polina Alejandre is [...] or any previous visit (from the past 80362 hour(s)). Assessment Patient has the following medical [...] well with Propofol. Had surgery 05/2022 at [facility] and had no significant anesthesia events. [...] which included preparing to see the patient, [id number]-qy-[id number] patient care, completing clinical documentation, obtaining and/or [...] 1:39 PM PAGER/CONTACT #: documented in this encounterUniversity Hospitals [facility]04-11-2023 Instructions* Patient Instructions* Sahara Barrett APRN.CNP - 10/15/2022 1:47 PM EDT PATIENT PREOPERATIVE INSTRUCTIONS Your surgeon has scheduled for your procedure at this surgery center: [facility]: [phone], [address], [place] [address] Please enter through the main entrance and [...] Friday, call the Friday before. Your surgeon's final canoe inspector will tell you what time to call [...] surgery. - YOU MUST HAVE A RESPONSIBLE TOBACCO WRAPPING MACHINE TENDER TAKE YOU HOME. A RAT BREEDER, CAB OR UBER TOBACCO WRAPPING MACHINE TENDER CANNOT BE MADEA RESPONSIBLE TOBACCO WRAPPING MACHINE TENDER. - You cannot stay in a hotel [...] you may. Orthopedic patients having surgery [facility] listed as outpatient should bring their walker into the building. Orthopedic patients having surgery [facility] listed as to be admitted should leave their walkers in the car or with a family member. Sahara Barrett APRN.CNP 10/15/22 documented in this encounterUniversity Hospitals [facility]-10[facility]2023 Miscellaneous Notes* Telephone Encounter - Sarah Main - 10/14/2022 11:20 AM EDT Last appointment: 03/25/22 Next appointment: N/A Pharmacy verified in [facility]. Refill(s) requested: Requested Prescriptions Pending Prescriptions Disp Refills methylphenidate ER 18 mg tablet 30 tablet 0 Sig: Take 1 tablet by mouth every morning for 30 days. Order(s) pended. Please advise. Sarah Main CMA documented in this encounterUniversity Hospitals Geauga Medical Center03-01-2023 NoteHNO ID: [id number] Author: Clifford Valenzuela DPM Service: ? Author [...] preoperative medical clearance, preope (more content not included)...[facility] 09-04-2022 History of Present illness Narrative* [...] Clifford Valenzuela DPM, FACFAS documented in this encounterUniversity Hospitals Geauga Medical Center02-23-2023 NoteHNO ID: [id number] Author: Beckie Juarez APRN.SUPERVISOR DRY CLEANING Service: ? Author Type: Nurse Practitioner Type: [...] Alejandre DATE: August 29, 2022 TIME: 8:23 [facility]02-16-2023 Miscellaneous Notes* Telephone Encounter - Eileen Gutiérrez DO - 08/22/2022 11:20 AM EST Mom aware that prescription was sent in' Eileen Gutiérrez DO * Telephone Encounter - Kelly Pressley LPN - 08/22/2022 10:00 AM EST The pharmacy pt uses does not have the Concerta on hand and pt has been out of medication x 2 days.Pt found it at [facility] and wonders if Rx's can be sent there. Pt would like called when Rx's are sent in. New Rx's pended for review. Pharmacy info was updated. documented in this encounterUniversity Hospitals Geauga Medical Center02-03-2023 NoteHNO ID: [id number] Author: Janina Adams LPN Service: ? Author Type: LICENSED NURSE Type: Progress Notes Filed: 08/12/2022 8:51 PM Note Text: Prepared two 10cc syringes with 3cc bupivacaine 3cc lidocaine with 25 gauge needles and gave to MD for injection - Janina Adams [facility]02-03-2023 NoteHNO ID: [id number] Author: Clifford Valenzuela DPM Service: ? Author [...] Valenzuela DPM Informed Consent Consent Obtained: Verbal [place] Protocol SIGN IN TIME OUT Nail removal extremity: bilateral great toe. Anesthesia Details: Local anesthetic: Lidocaine 2% without epinephrine and bupivacaine 0.5% without epinephrine Anesthetic total (ml): 3 ml to each great toe. Procedure (more content not included)...[facility]02-03-2023 History of Present illness Narrative* Janina [...] Valenzuela DPM Informed Consent Consent Obtained: Verbal [place] Protocol SIGN IN TIME OUT Nail removal [...] Clifford Valenzuela DPM, FACFAS documented in this encounterUniversity Hospitals Geauga Medical Center01-12-2023 NoteHNO ID: [id number] Author: Clifford Valenzuela DPM Service: ? Author [...] prognosis. Patient was also (more content not included)...[facility]01-12-2023 History of Present illness Narrative* Clifford [...] Clifford Valenzuela DPM, FACFAS documented in this encounterUniversity Hospitals Geauga Medical Center12-16-2022 Miscellaneous Notes* Telephone Encounter - Jesenia Mann RN - 06/21/2022 9:14 AM EST Patient left message on RN line today at 8:30 wanting to talk about an unspecified medication refill. Patient requested call back to [phone]. Called patient. She had an insurance change [...] medication for two weeks. documented in this encounterUniversity Hospitals Geauga Medical Center12-05-2022 Miscellaneous Notes* Telephone Encounter - Anselmo Posadas - 06/10/2022 12:20 PM EST Patient needs a new rx for Concerta - 30 days, insurance won't cover a 90 day. * Telephone Encounter - Keisha Rojas - 06/10/2022 11:19 AM EST [facility] pharmacy in [place] called today on 06/10/22 regards to patients medication Concerta. Pharmacy stated that Dr. Gutiérrez prescribed patient with a 90 day supply and patients insurance only covers a 30 day supply. Pharmacy filled a 30 day supply of Concerta instead of 90 day supply. Void of 60 day supply. Pharmacy stated patient needs a new prescription. Please advise. documented in this encounterUniversity Hospitals Geauga Medical Center11-30-2022 History of Present illness Narrative* Clifford Valenzueal, RILEY - 06/05/2022 9:53 AM EST DOS: [...] Clifford Valenzuela DPM, FACFAS documented in this encounterUniversity Hospitals Geauga Medical Center11-23-2022 History of Past illness Narrative* Problem Noted [...] of this encounter (statuses as of 06/10/2022) [facility]11-23-[facility]22 History of Past illness Narrative* Problem Noted [...] of this encounter (statuses as of 06/12/2022) [facility]-23-[facility] History of Past illness Narrative* Problem Noted [...] of this encounter (statuses as of 06/17/2022) [facility]11-23-[facility]22 History of Past illness Narrative* Problem Noted [...] of this encounter (statuses as of 06/20/2022) [facility]11-23-[facility]22 History of Past illness Narrative* Problem Noted [...] of this encounter (statuses as of 06/21/2022) [facility]11-23-[facility]22 History of Past illness Narrative* Problem Noted [...] of this encounter (statuses as of 07/31/2022) [facility]11-23-[facility]22 History of Past illness Narrative* Problem Noted [...] of this encounter (statuses as of 08/13/2022) [facility]11-23-2022 History of Past illness Narrative* Problem Noted [...] of this encounter (statuses as of 08/22/2022) [facility]11-23-[facility]22 History of Past illness Narrative* Problem Noted [...] of this encounter (statuses as of 09/03/2022) [facility]11-23-2022 History of Past illness Narrative* Problem Noted [...] of this encounter (statuses as of 09/17/2022) [facility]11-23-[facility]22 History of Past illness Narrative* Problem Noted [...] of this encounter (statuses as of 10/14/2022) [facility]11-23-2022 History of Past illness Narrative* Problem Noted [...] of this encounter (statuses as of 10/18/2022) [facility]09-30-2022 History of Present illness Narrative* Eileen Gutiérrez DO - 04/05/2022 12:17 PM EDT Form faxed to office Eileen Gutiérrez DO documented in this encounterUniversity Hospitals Geauga Medical Center08-16-2022 Miscellaneous Notes* Telephone Encounter - Rosales Sanders [...] by Rosales Sanders APRN.CNP documented in this encounterUniversity Hospitals Geauga Medical Center08-08-2022 Instructions* Patient Instructions* Zari Hager APRN.CNP - [...] tips for improved daily living with POTS. http://www.[facility].org/pots Orthostatic Workout There are videos /playlist/podcast to viewed and helped for exercises and wellness for POTS and Orthostatics Instructions:https://www.[employer].com/[email or web address] In your search bar in the internet [...] Also follow us along on our new [employer] account JONNY Also besides the exercise are some ricarda mediation videos . Click and watch. Utilize when your adrenaline is active. May even play music to go along. Play the video as often you want to help as an additional tool to reset the adrenaline https://www.youStudyBlueube.com/watch?v=wUHz0zEwWI2 https://www.Asteelube.com/watch?v=g9vRjgF-4wG&feature=youtu.be https://www.Asteelube.com/watch?v=T1cC7yDxO19 Shared Medical Appointments To schedule the ZOOM POTS SMA please call during Friday-Friday 9 am - 4 pm , THE CALL CENTER # [phone] The CALL CENTER IS OPEN 24 hours/ 7 DAYS PER WEEK Please be patient with the phone line. We are honored and glad to have you part of the SMA for POTS Welcome to ZOOM POTS SMA (SHARED MEDICAL APPOINTMENTS) We have learned at the [facility] and especially in my work and our [...] and will be handling your phone calls, [employer] messages and inquiries, if any. Unless explicitly [...] do not comment on most testing on CruiseWisehart in a message or commentary unless there [...] you with this process. documented in this encounterUniversity Hospitals Geauga Medical Center08-08-2022 History of Present illness Narrative* Zari Hager APRN.CNP - 02/11/2022 10:52 AM EDT Images from the original note were not included. [facility] Neu[facility] Follow [...] Extension 5/5 5/5 Movement/Coordination Finger-to- nose-finger and twzz-tm-qqor intact bilaterally. No evidence of ataxia arms. [...] which included preparing to see the patient, oceg-xa-efrk patient care, completing clinical documentation, obtaining and/or [...] for this visit on 02/11/22. Zari Hager APRN.[facility] General Neurology [address] [place] [address]. [id number] Appointment: [phone] 1. This office note has been dictated [...] of your PCP/referring physician documented in this encounterUniversity Hospitals Geauga Medical Center05-23-2022 Instructions* Patient Instructions* Yahaira Arredondo APRN.CNP - [...] in 24 -48 hours, results available on [facility] Home isolation until covid results are [...] to thin out mucus documented in this encounterUniversity Hospitals Geauga Medical Center05-23-2022 History of Present illness Narrative* Yahaira Arredondo APRN.CNP - 11/26/2021 8:52 AM EDT Subjective The history is provided by the patient. No biblical languages professor was used. HPI Polina Alejandre is a 21 year old female who presents today for CC of cough, congestion and fever, fatigue, body aches, headache. She has used tylenol with short term relief. 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 Wheezing [...] Level: 4 - Moderate documented in this encounterUniversity Hospitals Geauga Medical Center05-17-2022 Miscellaneous Notes* Telephone Encounter - Janey Augustin [...] ensure she is doing well. Bertha Edge APRN.NEEUR * Telephone Encounter - Marilyn Lynch Pss - 11/20/2021 1:15 PM EDT Polina returned call. She stated she did see Dr. Gutiérrez last summer in March but she is willing to make an appointment if need be. She saw the provider in [place] in September for a physical to be [...] not been seen by Dr. Gutiérrez in [facility] since 03/2020. Look slfrance Polina has been seen in [place] lately. Bertha Edge APRN.CNP * Telephone Encounter [...] advise. Megan Hodges MA documented in this encounterUniversity Hospitals Geauga Medical Center05-17-2022 History of Present illness Narrative* Lisa Pacheco RN - 11/20/2021 10:51 AM EDT Asthma Home Monitoring Program Breathe Well Outreach Provider Action/FYI: Approval received from Dr Oracio Bertrand to draft AAP per below FYI Reason for outreach: Follow up and Asthma Action Plan, Health Maintenance, due for Pulm F/up Contact made: Yes, via [employer] VM left. SIGNATURE: Lisa Pacheco RN PATIENT NAME: Polina Alejandre DATE: November 20, 2021 TIME: 10:51 AM * Lisa Pacheco RN - 11/09/2021 3:11 PM EDT Asthma Home Monitoring Program Breathe Well Outreach Provider Action/FYI: Hi Dr Bertrand, Pt is over due for f/up in your office. RN called and left message encouraging arranging f/up visitwith your office and will send [facility] message. From a health maintenance perspective patient [...] 2021 TIME: 3:11 PM documented in this encounterUniversity Hospitals Geauga Medical Center05-02-2022 Miscellaneous Notes* Telephone Encounter - Adenike Odom RN - 11/05/2021 11:00 AM EDT Last OV: 12/18/2020 Last Refill: 08/29/2021 F/U OV: N/A Appropriate for refill. Routed to [place] for review. Adenike Odom RN, BSN, BA documented in this encounterUniversity Hospitals Geauga Medical Center04-14-2022 Miscellaneous Notes* Telephone Encounter - Jeana Aranda DO - 10/18/2021 3:23 PM EDT orthotics ordered. please assist. hs documented in this encounterUniversity Hospitals Geauga Medical Center04-05-2022 History of Present illness Narrative* Clifford Valenzuela [...] they [facility] well as everything found [...] sensation intact at all pedal sites via [place] 5.07 monofilament bilateral. Proprioception intact at [...] resident's assessment and plan unless otherwise noted. lCifford Valenzuela DPM, FACFAS * Clifford Valenzuela DPM [...] bleeding, clots, bleeding disorders. documented in this encounterUniversity Hospitals Geauga Medical Center03-28-2022 Instructions* Patient Instructions* Beckie Juarez APRN.SUPERVISOR DRY CLEANING - 10/01/2021 10:03 AM EDT Images from [...] drinks Go! Be healthy, inside and out! www.[facility].org/5toGo Adolescent to Adult Transition Program [facility] cares about helping you and each of our adolescents and young adults make a smoothtransition to adult care. If your current doctor is a special order jeweler, we will work with you to decide [...] your current doctor is in family medicine, [facility] will prepare you and your family forthe [...] details. If joining our practice from outside [facility], we will help you request your medical [...] the use of evidence-driven strategies for health point of care technician, youth, young adults, and their families. www.gottransition.org https://gottransition.org/resource/?uha-prlard-wfnhswq documented in this encounterUniversity Hospitals Geauga Medical Center03-28-2022 History of Present illness Narrative* Beckie Juarez [...] satisfactory Screening tools reviewed and discussed with patient/tnwnox-HYD-9 and Social Determinants of Health.Please see Patient [...] for respiratory tuberculosis Z11.1 PPD (TB INTRADERMAL 01205) B/O 53 %ile (Z= 0.08) based on [...] and safety. - Dental care discussed. - YuuConnect handout given (See Patient Instructions). - Parent/guardian declined immunization for HPV and was counseled regarding risk. Discussed benefits of vaccination and encouraged patient to return to clinic for HPV vaccine. - Follow up in one year for routine physical. SIGNATURE: Beckie Juarez APRN.NEERU PATIENT NAME: Polina Alejandre DATE: October 01, 2021 TIME: 9:25 AM documented in this encounterUniversity Hospitals Geauga Medical Center03-22-2022 Miscellaneous Notes* Telephone Encounter - Irma Ford [place] Ppg - 09/25/2021 11:26 AM EDT Patient contacted and scheduled with Dr. Valenzuela on 10/09/21. She was instructed to bring the prior op report or drop it off prior to her office visit. Patient said she will bring it to the scheduled appointment. 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 The person she goes to for her Orthotic highly recommended Dr. Valenzuela. I will have Irma check with Dr. Valenzuela to see if it is okay to schedule this patient. Ayaka Paelncia Student Ministries Director Ppg September 24, 2021 3:50 PM * Telephone Encounter - Ayaka Palencia [place] Ppg - 09/24/2021 3:47 PM EDT ----- [...] other than patient: self Best contact number: [phone] Thank you, Bertha Still September 24, 2021 8:11 AM documented in this encounterUniversity Hospitals Geauga Medical Center10-19-2020 History of Past illness Narrative* Problem Noted [...] of this encounter (statuses as of 09/25/2021) [facility]10[facility] History of Past illness Narrative* Problem Noted [...] of this encounter (statuses as of 10/02/2021) [facility]10[facility] History of Past illness Narrative* Problem Noted [...] of this encounter (statuses as of 10/03/2021) [facility] History of Past illness Narrative* Problem Noted [...] of this encounter (statuses as of 10/08/2021) [facility] History of Past illness Narrative* Problem Noted [...] of this encounter (statuses as of 10/10/2021) [facility] History of Past illness Narrative* Problem Noted [...] of this encounter (statuses as of 10/15/2021) [facility] History of Past illness Narrative* Problem Noted [...] of this encounter (statuses as of 10/18/2021) [facility] History of Past illness Narrative* Problem Noted [...] of this encounter (statuses as of 11/05/2021) [facility] History of Past illness Narrative* Problem Noted [...] of this encounter (statuses as of 11/20/2021) [facility] History of Past illness Narrative* Problem Noted [...] of this encounter (statuses as of 11/20/2021) [facility] History of Past illness Narrative* Problem Noted [...] of this encounter (statuses as of 11/26/2021) [facility] History of Past illness Narrative* Problem Noted [...] of this encounter (statuses as of 01/14/2022) [facility] History of Past illness Narrative* Problem Noted [...] of this encounter (statuses as of 02/11/2022) [facility] History of Past illness Narrative* Problem Noted [...] of this encounter (statuses as of 02/19/2022) [facility] of Past illness Narrative* Problem Noted [...] of this encounter (statuses as of 04/05/2022) [facility] History of Past illness Narrative* Problem Noted [...] of this encounter (statuses as of 05/29/2022) [facility] note* Diagnosis Well adolescent visit without abnormal findings- Primary Intermittent asthma, well controlled Unspecified asthma Negative depression screening Encounter for screening for lipoid disorders Screening for lipoid disorders Encounter for screening for respiratory tuberculosis Screening examination for pulmonary tuberculosis documented in this encounter [facility]* Diagnosis Encounter for screening for respiratory tuberculosis- Primary Screening examination for pulmonary tuberculosis [facility]* Diagnosis PPD screening test- Primary Screening examination for pulmonary tuberculosis documented in this encounter [facility] note* Diagnosis Screening examination for pulmonary tuberculosis- Primary documented in this encounter [facility]* Diagnosis Acquired mallet toe, right- Primary Bilateral foot pain Pain in limb documented in this encounter [facility]* Diagnosis 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, not elsewhere classified documented in this encounter [facility]* Diagnosis POTS (postural orthostatic tachycardia syndrome) Tachycardia, unspecified Migraine without aura and without status migrainosus, not intractable Migraine without aura, without mention of intractable migraine without mention of status migrainosus documented in this encounter [facility]* 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 documented in this encounter [facility]* Diagnosis Flu-like symptoms- Primary Other general symptoms Suspected COVID-19 virus infection Wheezing [facility]* Diagnosis Easy bruising- Primary Other symptoms involving skin and integumentary tissues documented in this encounter [facility]* Diagnosis POTS (postural orthostatic tachycardia syndrome) Tachycardia, unspecified [facility]* 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 [facility]* Diagnosis Mallet toe, acquired, left- Primary Mallet toe, acquired, left [facility]* 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 [facility]* 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 [facility]* Diagnosis Post-operative state- Primary Other postprocedural status [facility]* 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 documented in this encounter [facility]* Diagnosis Acquired mallet toe, right- Primary Post-operative state Other postprocedural status Ingrown toenail of both feet MT (mallet toe), right documented in this encounter [facility]* Diagnosis Ingrowing nail- Primary Pain in toe of left foot Pain in limb Pain in toe of right foot Pain in limb MT (mallet toe), right [facility]* 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 MT (mallet toe), right [facility]* Diagnosis Pain in toe of right foot- Primary Pain in limb MT (mallet toe), right documented in this encounter [facility] note* 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 MT (mallet toe), right documented in this encounter [facility] note* Diagnosis Gastroesophageal reflux disease, [...] (mallet toe), right documented in this encounter [facility] note* Diagnosis MT (mallet toe), right- Primary MT (mallet toe), right documented in this encounter [facility] note* Diagnosis Seborrheic dermatitis- Primary Seborrheic dermatitis, unspecified documented in this encounter [facility] note* Diagnosis Post-operative state- Primary Other postprocedural status documented in this encounter [facility] note* Diagnosis Perioral dermatitis- Primary Rosacea documented in this encounter [facility] note* 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 documented in this encounter [facility] note* 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 documented in this encounter [facility] note* 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 documented in this encounter [facility] note* Diagnosis Post-operative state- Primary Other postprocedural status Acquired mallet toe, right Ingrowing nail documented in this encounter [facility] note* Diagnosis Ingrown toenail of both feet- Primary Onychodystrophy Other specified disease of nail documented in this encounter [facility] note* Diagnosis Ingrown toenail of both feet- Primary Post-operative state Other postprocedural status documented in this encounter [facility] for referral (narrative)* Diagnostic Procedure Only (Routine) - Pending Review Specialty Diagnoses / Procedures Referred By Chaz maxwell Referred To Contact XR IMAGING Diagnoses Acquired mallet toe, right Bilateral foot pain Procedures XR FOOT GENERAL 3V AP/LAT/OBL RIGHT RADEX FOOT COMPLETE MINIMUM 3 VIEWS Clifford Valenzuela DPM [address] [address] Xr Imaging Referral ID Status Reason Start Date Expiration Date Visits Requested Visits Authorized [id number] Pending Review Auto-Generat ed Referral 10/10/2021 11/08/2022 1 1 * Diagnostic Procedure Only (Routine) - Pending Review Specialty Diagnoses / Procedures Referred By Contac t Referred To Contact XR IMAGING Diagnoses Acquired mallet toe, right Bilateral foot pain Procedures XR FOOT GENERAL 3V AP/LAT/OBL LEFT RADEX FOOT COMPLETE MINIMUM 3 VIEWS Clifford Valenzuela DPM [address] [place] [address] [place] [id number] Xr Imaging Referral ID Status Reason Start Date Expiration Date Visits Requested Visits Authorized [id number] Pending Review Auto-Generat ed Referral 10/10/2021 11/08/2022 1 1 [facility] [facility] for referral (narrative)* Diagnostic Procedure Only (Routine) - Pending Review Specialty Diagnoses / Procedures Referred By Contac t Referred To Contact XR IMAGING Diagnoses Post-operative state Procedures XR FOOT GENERAL 3V AP/LAT/OBL LEFT RADEX FOOT COMPLETE MINIMUM 3 VIEWS Clifford Valenzuela DPM [address] [place] [id number] Xr Imaging Referral ID Status Reason Start Date Expiration Date Visits Requested Visits Authorized [id number] Pending Review Auto-Generat ed Referral 06/10/2022 07/05/2023 1 1 [facility] for referral (narrative)* Diagnostic Procedure Only (Routine) - Pending Review Specialty Diagnoses / Procedures Referred By Contac t Referred To Contact XR IMAGING Diagnoses Post-operative state Procedures XR FOOT GENERAL 3V AP/LAT/OBL RIGHT RADEX FOOT COMPLETE MINIMUM 3 VIEWS Clifford Valenzuela DPM [address] [place] [address] Xr Imaging Referral ID Status Reason Start Date Expiration Date Visits Requested Visits Authorized [id number] Pending Review Auto-Generat ed Referral 12/04/2022 01/03/2024 1 1 [facility] Diagnostic Procedure Only (Routine) - Pending Review Specialty Diagnoses / Procedures Referred By Contac t Referred To Contact XR IMAGING Diagnoses Post-operative state Acquired mallet toe, right Procedures XR FOOT GENERAL 3V AP/LAT/OBL RIGHT RADEX FOOT COMPLETE MINIMUM 3 VIEWS Clifford Valenzuela DPM [address] [address] Xr Imaging Referral ID Status Reason Start Date Expiration Date Visits Requested Visits Authorized [id number] Pending Review Auto-Generat ed Referral 01/18/2023 02/14/2024 1 1 [facility] Summary Purpose Family History No Family History Records FoundThere may be information available, but it has not been provided by the sender.No Family History Records FoundNo Family History Records FoundNo Family History Records FoundNo Family History Records Found Advance Directives Documents on File Type Date Recorded 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 Advance Directive(s) Documents on File Type Date Recorded 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 Advance Directive(s) Chief Complaint Chief [...] at Discharge: .Home Vital Signs: T [id number] [id number]% Date/Time12/30 16: 16: 16: 16: 16:13 Range(36.6C [...] Contact Diagnoses Narcolepsy without cataplexy Rosales Sanders APRN.SUPER[employer]OR [employer] [address] [facility] [address] [place] [address] Referral ID Status Reason Start Date Expiration Date V isits Requested Visits Authorized [id number] Pending Review 1 1 Additional Source Comments INFORMATION SOURCE (unrecogn ized section and content) DATE CREATED AUTHOR AUTHOR'S ORGANIZ ATION 01/26/2020 [facility] DATE CREATED AUTHOR AUTHOR'S ORGANIZ ATION 11/07/2022 [facility] DATE CREATED AUTHOR AUTHOR'S ORGANIZ ATION 06/13/2023 [facility] DATE CREATED AUTHOR AUTHOR'S ORGANIZ ATION 06/23/2023 [facility] Reason for Visit (unrecogniz ed [...] [facility] [address] [place] [address] Referral ID Status Reason Start Date Expiration Date Visits Re quested Visits Authorized [id number] 1 1 Reason Comments Follow Up Gyant [...] Referred To Contact Radiology / RADIO MRI [facility] Epigastric pain Gastritis GERD (gastroesophageal reflux disease) Liver lesion Elevated LFTs MRI ABDOMEN W CON - MRI LIVER W CONTRAST Epigastric pain R10.13 Gastritis K29.09 GERD K21.9 Liver lesion K76.9 Elevated LFTs R79.89 Procedures MRI ABDOMEN W/CONTRAST MATERIAL MRI ABDOMEN W/O & W/CONTRAST MATERIAL MRI WWO ABD [address] Apolinar Martinez, DIGITAL SPECIALIST.CASE REPAIRER [address] [place] [address] [place] [address] Referral ID Status Reason Start Date Expiration Date Visits Re quested Visits Authorized [id number] Closed 11/25/2022 05/24/2023 1 1 Source Comments (unrecognize d section and content) In the event this informatio n is protected by the Federal Confidentiality of Alcohol and Drug Abuse Patient Records regulations: The Federal rules restrict any use of the information to criminally investigate or prosecute any alcohol or drug abuse patient.[facility] the event this information is protected by the Federal Confidentiality of Alcohol and Drug Abuse Patient Records regulations: The Federal rules restrict any use of the information to criminally investigate or prosecute any alcohol or drug abuse patient.[facility] the event this information is protected by the Federal Confidentiality of Alcohol and Drug Abuse Patient Records regulations: The Federal rules restrict any use of the information to criminally investigate or prosecute any alcohol or drug abuse patient.[facility] Center[facility] the event this information is protected by the Federal Confidentiality of Alcohol and Drug Abuse Patient Records regulations: The Federal rules restrict any use of the information to criminally investigate or prosecute any alcohol or drug abuse patient.[facility] Center[facility] the event this information is protected by the Federal Confidentiality of Alcohol and Drug Abuse Patient Records regulations: The Federal rules restrict any use of the information to criminally investigate or prosecute any alcohol or drug abuse patient.[facility] Center[facility] the event this information is protected by the Federal Confidentiality of Alcohol and Drug Abuse Patient Records regulations: The Federal rules restrict any use of the information to criminally investigate or prosecute any alcohol or drug abuse patient.[facility] CenterIn the event this information is protected by the Federal Confidentiality of Alcohol and Drug Abuse Patient Records regulations: The Federal rules restrict any use of the information to criminally investigate or prosecute any alcohol or drug abuse patient.[facility] CenterIn the event this information is protected by the Federal Confidentiality of Alcohol and Drug Abuse Patient Records regulations: The Federal rules restrict any use of the information to criminally investigate or prosecute any alcohol or drug abuse patient.[facility] CenterIn the event this information is protected by the Federal Confidentiality of Alcohol and Drug Abuse Patient Records regulations: The Federal rules restrict any use of the information to criminally investigate or prosecute any alcohol or drug abuse patient.[facility] CenterIn the event this information is protected by the Federal Confidentiality of Alcohol and Drug Abuse Patient Records regulations: The Federal rules restrict any use of the information to criminally investigate or prosecute any alcohol or drug abuse patient.[facility] CenterIn the event this information is protected by the Federal Confidentiality of Alcohol and Drug Abuse Patient Records regulations: The Federal rules restrict any use of the information to criminally investigate or prosecute any alcohol or drug abuse patient.[facility] CenterIn the event this information is protected by the Federal Confidentiality of Alcohol and Drug Abuse Patient Records regulations: The Federal rules restrict any use of the information to criminally investigate or prosecute any alcohol or drug abuse patient.[facility] CenterIn the event this information is protected by the Federal Confidentiality of Alcohol and Drug Abuse Patient Records regulations: The Federal rules restrict any use of the information to criminally investigate or prosecute any alcohol or drug abuse patient.[facility] CenterIn the event this information is protected by the Federal Confidentiality of Alcohol and Drug Abuse Patient Records regulations: The Federal rules restrict any use of the information to criminally investigate or prosecute any alcohol or drug abuse patient.[facility] CenterIn the event this information is protected by the Federal Confidentiality of Alcohol and Drug Abuse Patient Records regulations: The Federal rules restrict any use of the information to criminally investigate or prosecute any alcohol or drug abuse patient.[facility] CenterIn the event this information is protected by the Federal Confidentiality of Alcohol and Drug Abuse Patient Records regulations: The Federal rules restrict any use of the information to criminally investigate or prosecute any alcohol or drug abuse patient.[facility] CenterIn the event this information is protected by the Federal Confidentiality of Alcohol and Drug Abuse Patient Records regulations: The Federal rules restrict any use of the information to criminally investigate or prosecute any alcohol or drug abuse patient.[facility] CenterIn the event this information is protected by the Federal Confidentiality of Alcohol and Drug Abuse Patient Records regulations: The Federal rules restrict any use of the information to criminally investigate or prosecute any alcohol or drug abuse patient.[facility] CenterIn the event this information is protected by the Federal Confidentiality of Alcohol and Drug Abuse Patient Records regulations: The Federal rules restrict any use of the information to criminally investigate or prosecute any alcohol or drug abuse patient.[facility] CenterIn the event this information is protected by the Federal Confidentiality of Alcohol and Drug Abuse Patient Records regulations: The Federal rules restrict any use of the information to criminally investigate or prosecute any alcohol or drug abuse patient.[facility] CenterIn the event this information is protected by the Federal Confidentiality of Alcohol and Drug Abuse Patient Records regulations: The Federal rules restrict any use of the information to criminally investigate or prosecute any alcohol or drug abuse patient.[facility] CenterIn the event this information is protected by the Federal Confidentiality of Alcohol and Drug Abuse Patient Records regulations: The Federal rules restrict any use of the information to criminally investigate or prosecute any alcohol or drug abuse patient.[facility] CenterIn the event this information is protected by the Federal Confidentiality of Alcohol and Drug Abuse Patient Records regulations: The Federal rules restrict any use of the information to criminally investigate or prosecute any alcohol or drug abuse patient.[facility] CenterIn the event this information is protected by the Federal Confidentiality of Alcohol and Drug Abuse Patient Records regulations: The Federal rules restrict any use of the information to criminally investigate or prosecute any alcohol or drug abuse patient.[facility] CenterIn the event this information is protected by the Federal Confidentiality of Alcohol and Drug Abuse Patient Records regulations: The Federal rules restrict any use of the information to criminally investigate or prosecute any alcohol or drug abuse patient.[facility] CenterIn the event this information is protected by the Federal Confidentiality of Alcohol and Drug Abuse Patient Records regulations: The Federal rules restrict any use of the information to criminally investigate or prosecute any alcohol or drug abuse patient.[facility] CenterIn the event this information is protected by the Federal Confidentiality of Alcohol and Drug Abuse Patient Records regulations: The Federal rules restrict any use of the information to criminally investigate or prosecute any alcohol or drug abuse patient.[facility] CenterIn the event this information is protected by the Federal Confidentiality of Alcohol and Drug Abuse Patient Records regulations: The Federal rules restrict any use of the information to criminally investigate or prosecute any alcohol or drug abuse patient.[facility] CenterIn the event this information is protected by the Federal Confidentiality of Alcohol and Drug Abuse Patient Records regulations: The Federal rules restrict any use of the information to criminally investigate or prosecute any alcohol or drug abuse patient.[facility] CenterIn the event this information is protected by the Federal Confidentiality of Alcohol and Drug Abuse Patient Records regulations: The Federal rules restrict any use of the information to criminally investigate or prosecute any alcohol or drug abuse patient.[facility] CenterIn the event this information is protected by the Federal Confidentiality of Alcohol and Drug Abuse Patient Records regulations: The Federal rules restrict any use of the information to criminally investigate or prosecute any alcohol or drug abuse patient.[facility] CenterIn the event this information is protected by the Federal Confidentiality of Alcohol and Drug Abuse Patient Records regulations: The Federal rules restrict any use of the information to criminally investigate or prosecute any alcohol or drug abuse patient.[facility] CenterIn the event this information is protected by the Federal Confidentiality of Alcohol and Drug Abuse Patient Records regulations: The Federal rules restrict any use of the information to criminally investigate or prosecute any alcohol or drug abuse patient.[facility] CenterIn the event this information is protected by the Federal Confidentiality of Alcohol and Drug Abuse Patient Records regulations: The Federal rules restrict any use of the information to criminally investigate or prosecute any alcohol or drug abuse patient.[facility] CenterIn the event this information is protected by the Federal Confidentiality of Alcohol and Drug Abuse Patient Records regulations: The Federal rules restrict any use of the information to criminally investigate or prosecute any alcohol or drug abuse patient.[facility] CenterIn the event this information is protected by the Federal Confidentiality of Alcohol and Drug Abuse Patient Records regulations: The Federal rules restrict any use of the information to criminally investigate or prosecute any alcohol or drug abuse patient.[facility] CenterIn the event this information is protected by the Federal Confidentiality of Alcohol and Drug Abuse Patient Records regulations: The Federal rules restrict any use of the information to criminally investigate or prosecute any alcohol or drug abuse patient.[facility] CenterIn the event this information is protected by the Federal Confidentiality of Alcohol and Drug Abuse Patient Records regulations: The Federal rules restrict any use of the information to criminally investigate or prosecute any alcohol or drug abuse patient.[facility] CenterIn the event this information is protected by the Federal Confidentiality of Alcohol and Drug Abuse Patient Records regulations: The Federal rules restrict any use of the information to criminally investigate or prosecute any alcohol or drug abuse patient.[facility] CenterIn the event this information is protected by the Federal Confidentiality of Alcohol and Drug Abuse Patient Records regulations: The Federal rules restrict any use of the information to criminally investigate or prosecute any alcohol or drug abuse patient.[facility] CenterIn the event this information is protected by the Federal Confidentiality of Alcohol and Drug Abuse Patient Records regulations: The Federal rules restrict any use of the information to criminally investigate or prosecute any alcohol or drug abuse patient.[facility] CenterIn the event this information is protected by the Federal Confidentiality of Alcohol and Drug Abuse Patient Records regulations: The Federal rules restrict any use of the information to criminally investigate or prosecute any alcohol or drug abuse patient.[facility] CenterIn the event this information is protected by the Federal Confidentiality of Alcohol and Drug Abuse Patient Records regulations: The Federal rules restrict any use of the information to criminally investigate or prosecute any alcohol or drug abuse patient.[facility] CenterIn the event this information is protected by the Federal Confidentiality of Alcohol and Drug Abuse Patient Records regulations: The Federal rules restrict any use of the information to criminally investigate or prosecute any alcohol or drug abuse patient.[facility] CenterIn the event this information is protected by the Federal Confidentiality of Alcohol and Drug Abuse Patient Records regulations: The Federal rules restrict any use of the information to criminally investigate or prosecute any alcohol or drug abuse patient.[facility] CenterIn the event this information is protected by the Federal Confidentiality of Alcohol and Drug Abuse Patient Records regulations: The Federal rules restrict any use of the information to criminally investigate or prosecute any alcohol or drug abuse patient.[facility] Care Teams (unrecognized sec tion and content) Analyst Food And Beverage Relationship Specialty Start Date End Date Eileen Gutiérrez, DO [address] [address] [place] [address] PCP - General 02 Analyst Food And Beverage Relationship Specialty Start Date End Date Eileen Gutiérrez, DO [address] [address] [place] [address] PCP - General 02 Analyst Food And Beverage Relationship Specialty Start Date End Date Eileen Gutiérrez, DO [address] [address] [place] [address] PCP - General 02 Analyst Food And Beverage Relationship Specialty Start Date End Date Eileen Gutiérrez, DO [address] [address] [place] [address] PCP - General 02 Analyst Food And Beverage Relationship Specialty Start Date End Date Eileen Gutiérrez, DO [address] [address] [place] [address] PCP - General 02 Analyst Food And Beverage Relationship Specialty Start Date End Date Eileen Gutiérrez, DO [address] [address] [place] [address] PCP - General 02 Analyst Food And Beverage Relationship Specialty Start Date End Date Eileen Gutiérrez, DO [address] [address] [place] [address] PCP - General 02 Analyst Food And Beverage Relationship Specialty Start Date End Date Eileen Gutiérrez, DO [address] [address] [place] [address] PCP - General 02 Analyst Food And Beverage Relationship Specialty Start Date End Date Eileen Gutiérrez, DO [address] [address] [place] [address] PCP - General 02 Analyst Food And Beverage Relationship Specialty Start Date End Date Eileen Gutiérrez, DO [address] [address] [place] [address] PCP - General 02 Analyst Food And Beverage Relationship Specialty Start Date End Date Eileen Gutiérrez, DO [address] [address] [place] [address] PCP - General 02 Analyst Food And Beverage Relationship Specialty Start Date End Date Eileen Gutiérrez, DO [address] [address] [place] [address] PCP - General 02 Analyst Food And Beverage Relationship Specialty Start Date End Date Eileen Gutiérrez, DO [address] [address] [place] [address] PCP - General 02 Analyst Food And Beverage Relationship Specialty Start Date End Date Eileen Gutiérrez, DO [address] [address] [place] [address] PCP - General 02 Analyst Food And Beverage Relationship Specialty Start Date End Date Eileen Gutiérrez, DO [address] [address] [place] [address] PCP - General 02 Analyst Food And Beverage Relationship Specialty Start Date End Date Eileen Gutiérrez, DO [address] [address] [place] [address] PCP - General 02 Analyst Food And Beverage Relationship Specialty Start Date End Date Eileen Gutiérrez, DO [address] [address] [place] [address] PCP - General 02 Analyst Food And Beverage Relationship Specialty Start Date End Date Eileen Gutiérrez, DO [address] [place] [facility] [place] [address] PCP - General 02 Analyst Food And Beverage Relationship Specialty Start Date End Date Eileen Gutiérrez, DO [address] [place] [facility] [place] [address] PCP - General 02 Lisa Pacheco, civil manager Automotive Product Engineer 11/06/22 12/06/22 Analyst Food And Beverage Relationship Specialty Start Date End Date Eileen Gutiérrez, DO [address] [place] [place] [address] PCP - General 02 Lisa Pacheco, civil manager Automotive Product Engineer 11/06/22 12/06/22 Analyst Food And Beverage Relationship Specialty Start Date End Date Eileen Gutiérrez, DO [address] [place] [place] [address] PCP - General 02 Lisa Pacheco, civil manager Automotive Product Engineer 11/06/22 12/06/22 Analyst Food And Beverage Relationship Specialty Start Date End Date Eileen Gutiérrez, DO [address] [place] [place] [address] PCP - General 02 Lisa Pacheco, civil manager Automotive Product Engineer 11/06/22 12/06/22 Analyst Food And Beverage Relationship Specialty Start Date End Date Eileen Gutiérrez, DO [address] [address] [place] [address] PCP - General 02 Lisa Pacheco, civil manager Automotive Product Engineer 11/06/22 12/06/22 Analyst Food And Beverage Relationship Specialty Start Date End Date Eileen Gutiérrez DO [address] [address] [place] [address] PCP - General 02 Analyst Food And Beverage Relationship Specialty Start Date End Date Eileen Gutiérrez DO [address] [address] [place] [address] PCP - General 02 Analyst Food And Beverage Relationship Specialty Start Date End Date Eileen Gutiérrez DO [address] [address] [place] [address] PCP - General 02 Analyst Food And Beverage Relationship Specialty Start Date End Date Eileen Gutiérrez DO [address] [address] [place] [address] PCP - General 02 Analyst Food And Beverage Relationship Specialty Start Date End Date Eileen Gutiérrez DO [address] [address] [place] [address] PCP - General 02 Analyst Food And Beverage Relationship Specialty Start Date End Date Eileen Gutiérrez DO [address] [address] [place] [address] PCP - General 02 Analyst Food And Beverage Relationship Specialty Start Date End Date Eileen Gutiérrez DO [address] [address] [place] [address] PCP - General 02 Analyst Food And Beverage Relationship Specialty Start Date End Date Eileen Gutiérrez DO [address] [address] [place] [address] PCP - General 02 Analyst Food And Beverage Relationship Specialty Start Date End Date Eileen Gutiérrez DO [address] [address] [place] [address] PCP - General 02 Analyst Food And Beverage Relationship Specialty Start Date End Date Eileen Gutiérrez DO [address] [address] [place] [address] PCP - General 02 Scheduled Active and [...] BE BASED ON THE PRIMARY CLINICAL RECORDS. [employer] [facility]. provides no warranty or guarantee of the accuracy or completeness of information in this document.
--- NOTE | 2023-09-15 07:15 | CT_ITS ---
INDICATION: CT with/without contrast; triple phase CT EXAMINATION: CT ABDOMEN WITH AND WITHOUT CONTRAST TECHNIQUE: Helically acquired images were obtained of the abdomen both before and after IV contrast. A radiation dose optimization technique was used for this scan. IV Contrast dosage and agent: 300 cc of Isovue 300 Oral contrast: None. RADIATION DOSAGE (If Supplied By Facility): CTDIvol = ( 6.78 ) mGy, DLP = ( 686.90 ) mGycm COMPARISON: August 27, 2020 FINDINGS: LOWER CHEST: Lung bases are clear. No cardiomegaly or pericardial effusion. LIVER: Within the caudate lobe there is a stable 4.2 x 2.9 x 5.1 cm low-attenuation round focus with peripheral nodular enhancement. GALLBLADDER AND BILIARY TREE: No calcified gallstones. No gallbladder distension or wall edema. No intra- or extrahepatic biliary ductal dilation. PANCREAS: No focal cystic or solid mass. SPLEEN: Normal size without focal cystic or solid mass. ADRENAL GLANDS: No nodules. KIDNEYS AND URETERS: Normal renal size and position. No hydronephrosis or nephrolithiasis. PERITONEUM: No ascites or free air. No other fluid collection. BOWEL: No stomach or bowel distension. There is a moderate amount of stool within the visualized colon. No focal inflammatory change. LYMPH NODES: No enlarged mesenteric or retroperitoneal lymph nodes. VESSELS: Aorta is non-dilated. ABDOMINAL WALL: No discrete abdominal wall hernia. BONES: No lytic or blastic abnormality. CT/Abdomen W/WO IV Contrast IMPRESSION: Stable 4.2 x 2.9 x 5.1 cm low-attenuation focus within the caudate lobe with an appearance most consistent with a hemangioma. Moderate amount of stool throughout the colon. Electronically Signed: Kristin Cummings MD at 8:54 EDT ,
[2023-09-15 07:17] LABS: CREATININE FINGERSTICK < 1.0 mg/dL (0.55-1.02); EGFR FINGERSTICK > 60.0000 mL/min (>60)
== END | disposition home or self-care (01) ==
PROVIDERS: PCP Family Medicine; Referring Provider Internal Medicine Gastroenterology; Visit Provider Internal Medicine Gastroenterology
DX: D18.03 Hemangioma of intra-abdominal structures (principal)
CPT/HCPCS: 74170; Q9967

== ENCOUNTER → 2023-09-30 | Outpatient (CLI) | payer OTHER, SELFPAY ==
[2023-09-30 16:53] LABS: Anion Gap 6 (5-15); BUN 11 mg/dL (7-18); BUN/Creat Ratio 15.6 RATIO (10-20); Calcium,Total 9.5 mg/dL (8.5-10.1); Chloride 106 mmol/L (98-107); EST Glomerular Filtration Rate 112 mL/min (>60); Est Glom Filt Rate - Afr Amer 135 mL/min (>60); Glucose 94 mg/dL (74-106); Sodium Level 139 mmol/L (136-145)
[2023-09-30 16:55] LABS: Vitamin D,25 Hydroxy 47.9 ng/mL
== END | disposition home or self-care (01) ==
LOC: LAB 15:49
PROVIDERS: PCP Family Medicine; Referring Provider Family Medicine; Visit Provider Family Medicine
DX: E87.6 Hypokalemia (principal); E55.9 Vitamin D deficiency, unspecified
CPT/HCPCS: 36415; 80048; 82306

== ENCOUNTER → 2023-11-06 | Outpatient (CLI) | payer OTHER, SELFPAY ==
[2023-11-06 09:03] LABS: Anion Gap 7 (5-15); BUN 14 mg/dL (7-18); BUN/Creat Ratio 18.2 RATIO (10-20); Calcium,Total 8.8 mg/dL (8.5-10.1); Chloride 103 mmol/L (98-107); Creatinine, Serum 0.77 mg/dL (0.55-1.02); EST Glomerular Filtration Rate 101 mL/min (>60); Est Glom Filt Rate - Afr Amer 122 mL/min (>60); Glucose 113 mg/dL (74-106); Potassium 3.6 mmol/L (3.5-5.1); Sodium Level 138 mmol/L (136-145)
== END | disposition home or self-care (01) ==
LOC: LAB 08:06
PROVIDERS: PCP Family Medicine; Referring Provider Family Medicine; Visit Provider Family Medicine
DX: E87.6 Hypokalemia (principal)
CPT/HCPCS: 36415; 80048

== ENCOUNTER → 2023-11-20 | Outpatient (CLI) | payer OTHER, SELFPAY ==
[2023-11-20 12:46] LABS: Anion Gap 3 (5-15); BUN 12 mg/dL (7-18); BUN/Creat Ratio 18.1 RATIO (10-20); Calcium,Total 9.1 mg/dL (8.5-10.1); Chloride 106 mmol/L (98-107); Creatinine, Serum 0.66 mg/dL (0.55-1.02); EST Glomerular Filtration Rate 119 mL/min (>60); Est Glom Filt Rate - Afr Amer 144 mL/min (>60); Glucose 89 mg/dL (74-106); Sodium Level 138 mmol/L (136-145)
== END | disposition home or self-care (01) ==
LOC: MFPLAB 09:44
PROVIDERS: Nurse Practitioner Family; PCP Family Medicine; Visit Provider Family Medicine
DX: E87.6 Hypokalemia (principal)
CPT/HCPCS: 36415; 80048

== ENCOUNTER → 2023-12-02 | Outpatient (CLI) | payer OTHER, SELFPAY | END | disposition home or self-care (01) | PROVIDERS: PCP Family Medicine; Visit Provider Otolaryngology | DX: J02.9 Acute pharyngitis, unspecified (principal) | CPT/HCPCS: 87070 ==

== ENCOUNTER 2024-01-13 13:06 | Outpatient (CLI) | payer OTHER, SELFPAY ==
[2024-01-13 14:11] LABS: Anion Gap 4 (5-15); BUN 11 mg/dL (7-18); BUN/Creat Ratio 17.7 RATIO (10-20); Chloride 107 mmol/L (98-107); Creatinine, Serum 0.62 mg/dL (0.55-1.02); EST Glomerular Filtration Rate 129 mL/min (>60); Est Glom Filt Rate - Afr Amer 156 mL/min (>60); Glucose 94 mg/dL (74-106); Potassium 3.8 mmol/L (3.5-5.1); Sodium Level 137 mmol/L (136-145)
== END 2024-01-13 23:59 | disposition home or self-care (01) ==
LOC: LAB 13:09
PROVIDERS: PCP Family Medicine; Referring Provider Family Medicine; Visit Provider Family Medicine
DX: E87.6 Hypokalemia (principal)
CPT/HCPCS: 36415; 80048

== ENCOUNTER → 2024-02-13 | Outpatient (CLI) | payer OTHER, SELFPAY ==
[2024-02-13 12:04] LABS: ALB/GLOB Ratio 1.4 RATIO (0.9-2.4); AST(SGOT) 17 U/L (15-37); Alanine Aminotransfer ALT/SGPT 14 U/L (13-56); Albumin, Serum 4.3 g/dL (3.2-5.0); Alkaline Phosphatase 57 U/L (45-117); Anion Gap 3 (5-15); BUN 12 mg/dL (7-18); BUN/Creat Ratio 17.4 RATIO (10-20); Calcium,Total 9.2 mg/dL (8.5-10.1); Chloride 108 mmol/L (98-107); Creatinine, Serum 0.69 mg/dL (0.55-1.02); EST Glomerular Filtration Rate 114 mL/min (>60); Est Glom Filt Rate - Afr Amer 138 mL/min (>60); Globulin 3.1 g/dL (2.2-4.2); Glucose 92 mg/dL (74-106); Potassium 3.9 mmol/L (3.5-5.1); Protein, Total 7.4 g/dL (6.4-8.2); Sodium Level 138 mmol/L (136-145)
[2024-02-13 12:06] LABS: Vitamin B12 918 pg/mL (211-911)
[2024-02-17 11:59] LABS: Vitamin D 1,25-Dihydroxy 40.2 pg/mL (24.8-81.5)
== END | disposition home or self-care (01) ==
LOC: LAB 11:14
PROVIDERS: PCP Family Medicine; Referring Provider Family Medicine; Visit Provider Family Medicine
DX: D18.00 Hemangioma unspecified site (principal); K31.84 Gastroparesis
CPT/HCPCS: 36415; 80053; 82607; 82652

== ENCOUNTER → 2024-05-27 | Outpatient (CLI) | payer OTHER, SELFPAY ==
[2024-05-27 09:12] LABS: Anion Gap 3 (5-15); BUN 12 mg/dL (7-18); BUN/Creat Ratio 16.3 RATIO (10-20); Chloride 110 mmol/L (98-107); Creatinine, Serum 0.73 mg/dL (0.55-1.02); EST Glomerular Filtration Rate 106 mL/min (>60); Est Glom Filt Rate - Afr Amer 128 mL/min (>60); Glucose 88 mg/dL (74-106); Potassium 3.7 mmol/L (3.5-5.1); Sodium Level 139 mmol/L (136-145)
== END | disposition home or self-care (01) ==
LOC: LAB 08:13
PROVIDERS: PCP Family Medicine
DX: R25.2 Cramp and spasm (principal)
CPT/HCPCS: 36415; 80048; 83735

== ENCOUNTER → 2024-07-01 | Outpatient (CLI) | payer OTHER, SELFPAY ==
[2024-07-01 18:10] LABS: Magnesium 2.4 mg/dL (1.6-2.6); Potassium 3.8 mmol/L (3.5-5.1)
== END | disposition home or self-care (01) ==
LOC: MFPLAB 15:33
PROVIDERS: PCP Family Medicine; Referring Provider Family Medicine; Visit Provider Family Medicine
DX: R25.2 Cramp and spasm (principal)
CPT/HCPCS: 36415; 83735; 84132

== ENCOUNTER → 2024-07-15 | Outpatient (CLI) | payer OTHER, SELFPAY | END | disposition home or self-care (01) | LOC: RAD 08:47 | PROVIDERS: PCP Family Medicine; Referring Provider Chiropractor; Visit Provider Chiropractor | DX: M99.01 Segmental and somatic dysfunction of cervical region (principal) ==

== ENCOUNTER → 2024-07-27 | Outpatient (CLI) | payer OTHER, SELFPAY ==
[2024-07-27 16:39] LABS: Anion Gap 4 (5-15); BUN 10 mg/dL (7-18); BUN/Creat Ratio 15.1 RATIO (10-20); Calcium,Total 8.6 mg/dL (8.5-10.1); Chloride 109 mmol/L (98-107); Creatinine, Serum 0.66 mg/dL (0.55-1.02); EST Glomerular Filtration Rate 119 mL/min (>60); Est Glom Filt Rate - Afr Amer 144 mL/min (>60); Glucose 101 mg/dL (74-106); Potassium 3.7 mmol/L (3.5-5.1); Sodium Level 140 mmol/L (136-145)
== END | disposition home or self-care (01) ==
LOC: LAB 15:32
PROVIDERS: PCP Family Medicine; Referring Provider Family Medicine; Visit Provider Family Medicine
DX: Z09 Encounter for follow-up examination after completed treatment for conditions other than malignant neoplasm (principal)
CPT/HCPCS: 36415; 80048

== ENCOUNTER → 2024-07-29 | Outpatient (CLI) | payer OTHER, SELFPAY ==
[2024-08-01 13:06] LABS: H. PYLORI STOOL AG Negative (Negative)
== END | disposition home or self-care (01) ==
LOC: LAB 17:07
PROVIDERS: PCP Family Medicine
DX: A04.8 Other specified bacterial intestinal infections (principal)
CPT/HCPCS: 87338

== ENCOUNTER → 2024-08-04 | Outpatient (CLI) | payer OTHER, SELFPAY ==
[2024-08-04 11:21] LABS: PTHIN 30.1 pg/mL (18.4-80.1)
[2024-08-04 11:40] LABS: Free T3 2.5 pg/mL (2.18-3.98); Thyroid Stim Hormone (TSH) 0.941 uIU/mL (0.358-3.740)
[2024-08-05 21:06] LABS: Thyroglobulin Antibody 2.1 IU/mL (0.0-0.9); Thyroid Peroxidase AB 26 IU/mL (0-34)
== END | disposition home or self-care (01) ==
LOC: BWCLAB 10:10
PROVIDERS: PCP Family Medicine; Referring Provider Family Medicine; Visit Provider Family Medicine
DX: E07.9 Disorder of thyroid, unspecified (principal)
CPT/HCPCS: 36415; 83970; 84439; 84443; 84481; 86376; 86800

== ENCOUNTER → 2024-08-13 | Outpatient (CLI) | payer OTHER, SELFPAY ==
[2024-08-20 12:45] LABS: HPV Reflexed? NOT INDICATED
== END | disposition home or self-care (01) ==
LOC: LABSPEC 16:33
PROVIDERS: PCP Family Medicine; Referring Provider Obstetrics & Gynecology; Visit Provider Obstetrics & Gynecology
DX: Z12.4 Encounter for screening for malignant neoplasm of cervix (principal)
CPT/HCPCS: 88175; G0145

== ENCOUNTER → 2024-09-10 | Outpatient (CLI) | payer OTHER, SELFPAY | END | disposition home or self-care (01) | LOC: BWCLAB 08:27 | PROVIDERS: PCP Family Medicine; Referring Provider Family Medicine; Visit Provider Family Medicine | DX: R25.2 Cramp and spasm (principal) | CPT/HCPCS: 36415; 84132 ==

== ENCOUNTER 2024-11-13 20:16 | Emergency (ER) | payer OTHER, SELFPAY ==
[2024-11-13 20:17] VITALS: BP 136/95; PULSE 75; RESP 18; TEMP 36.9; O2SAT 100; BMI 21.8
--- NOTE | 2024-11-13 21:00 | EDS_ITS ---
HPI <JARED Hancock - Last Filed: 11/13/24 22:06> History of Present Illness Chief Complaint: Diarrhea Narrative Narrative: 24-year-old female with PMH of POTS, GERD, gastroparesis, hypokalemia, and recent diagnosis of hereditary angioedema (HAE) presents with a typical flare of her symptoms which is abdominal bloating, diarrhea, and bilateral leg swelling. The abdominal bloating and diarrhea started this morning. She has had approximately 9 episodes of loose nonbloody stools. She has nausea but cannot keep down fluids and is not vomiting but she feels dehydrated. Both lower legs have been swollen over the last 3 days but have improved now. She states she was being worked up for autoimmune issues and was recently diagnosed with hereditary angioedema at [facility]. She was told this is causing her symptoms. She was started on any medication 12 days ago called Yuliana and is supposed to be reassessed in a few months. She was also supposed to have a rescue medication to take for symptom flares but it is not covered by insurance. Patient states she was diagnosed with gastroparesis but now that she has been diagnosed with HAE they think her abdominal symptoms may be from gastric/intestinal swelling. [facility] <JARED Hancock - Last Filed: 11/13/24 22:06> [facility] Medical History (Updated 11/13/24 @ 21:58 by JARED Hancock) Hereditary angioedema Tortuous colon Autoimmune gastritis Gastroparesis Epilepsy POTS (postural orthostatic tachycardia syndrome) Constipation Elevated transaminase level Narcolepsy GERD (gastroesophageal reflux disease) Headaches, cluster Environmental allergies Medical History no medical history Home Medications ?Medication ?Instructions ?Recorded ?Last Taken ?Type methylphenidate HCl 18 mg 18 mg PO DAILY 05/09/2110/27 History tablet,extended release 24 hr (Concerta) propranolol 60 mg capsule,24 60 mg PO DAILY 09/12/23 U nknown History hr,extended release gabapentin 100 mg capsule 100 mg PO PRN nerve pain Unknown History linaclotide 290 mcg capsule 290 mcg PO QDAY 05/24/24 U nknown History (Linzess) pyridostigmine bromide 60 mg tablet 60 mg PO TID 05/24 Unknown History famotidine 20 mg tablet 20 mg PO BID 08/13/24 Unknow n History potassium chloride 10 mEq 10 meq PO QDAY 08/13/24 Unkn own History capsule,extended release berotralstat 110 mg capsule 110 mg PO DAILY 11/13/24 U nknown History (Orladeyo) ketorolac 10 mg tablet 10 mg PO Q6H PRN PRN pain Unknown History Allergy/AdvReac Type Severity Reaction Status Date / Time cefdinir Allergy Intermediate Swelling Verified 11/13/24 20:19 diphenhydramine (From Allergy Intermediate Other Verified 11/13/24 20:19 Benadryl) prochlorperazine (From Allergy Intermediate Other Verified 11/13/24 20:19 Compazine) gluten Allergy Upset Verified 11/13/24 20:19 Stomach latex Allergy Hives Verified 11/13/24 20:19 midazolam HCl (From Versed) Allergy Other Verified 11/13/24 20:19 Penicillins Allergy Hives Verified 11/13/24 20:19 haloperidol (From Haldol) AdvReac agitation Verified 11/13/24 20:19 Family History Father Migraine Mother Migraine Other Anxiety Asthma Hypertension Surgical History History of bilateral salpingectomy History of foot surgery History of tonsillectomy and adenoidectomy Surgical History no surgical history Social History household members: spouse housing: house number of children: 0 current occupational status: employed current occupation: [employer] Smoking Status: Never smoker alcohol intake: never substance use type: does not use what type of physical activity do you participate in: walking and weight training frequency: 3-4 times per week duration: 30-45 minutes/day additional social history: - Alvarez ROS <JARED Hancock - Last Filed: 11/13/24 22:06> ROS ED ROS Narrative Constitutional: Negative for fever, chills, malaise. CVS: Negative for chest pain. Respiratory: Negative for shortness of breath. GI: Negative for abdominal pain, diarrhea. : Negative for dysuria, hematuria or frequency. EXAM <JARED Hancock - Last Filed: 11/13/24 22:06> Physical Exam Narrative Exam Narrative: CONST: Patient sitting in no acute distress. EYES: Normal inspection. ENT: Normal inspection, moist mucous membranes. NECK: Normal inspection. RESP: No respiratory distress, CTAB. CVS: Regular rate and rhythm, no murmur, no gallop. ABD: Soft with mild periumbilical tenderness, no guarding or rebound, nondistended. SKIN: Color normal, no rash, warm, dry, intact. EXTREMITIES: Normal appearance, no swelling. NEURO: Alert and answering questions appropriately. PSYCH: Normal affect. Const Vital Signs: 11/13/24 20:17 11/13/24 22:16 11/13/24 23:01 Temperature 98.4 F 98.2 F Temperature Source Oral Pulse Rate 75 78 89 Respiratory Rate 18 16 14 Blood Pressure 136/95 H 110/78 112/67 Blood Pressure Mean 108 88 82 Pulse Ox 100 98 100 Oxygen Delivery Method Room Air Room Air <Dr. Jani Soto DO - Last Filed: 11/14/24 00:33> Physical Exam Const Vital Signs: 11/13/24 20:17 11/13/24 22:16 11/13/24 23:01 Temperature 98.4 F 98.2 F Temperature Source Oral Pulse Rate 75 78 89 Respiratory Rate 18 16 14 Blood Pressure 136/95 H 110/78 112/67 Blood Pressure Mean 108 88 82 Pulse Ox 100 98 100 Oxygen Delivery Method Room Air Room Air [facility] <JARED Hancock - Last Filed: 11/13/24 22:06> [facility] Narrative Medical decision making narrative: 24-year-old female presents with 3 days of bilateral leg swelling and cramping and 1 day of abdominal discomfort and diarrhea. She states she gets these flares often and attributes it to hereditary angioedema which she was recently diagnosed with. She appears well and nontoxic. Vital signs are normal. She has an overall benign exam with moist mucous membranes and a soft benign abdomen. There is no lower extremity swelling present and she states that resolved earlier today. She was given IV fluids, Toradol, and Zofran for her symptoms while blood work was obtained. CBC and BMP are normal. Urinalysis negative with no ketones or infection. test negative. Patient has had no vomiting and has been drinking fluids at home so was advised to continue oral hydration and follow-up with her specialist. Return precautions discussed. She was discharged in stable condition. History & Record Review Discussion w/independent historian: Patient Additional record(s) reviewed:: Prior ED visit Lab Data Attestation: I reviewed the patient's lab results. Labs: Laboratory Results - last 24 hr 11/13/24 11/13/24 21:12 21:14 WBC 5.3 RBC 4.29 Hgb 12.4 Hct 36.8 L MCV 85.8 MCH 28.9 MCHC 33.7 RDW Std Deviation 36.3 RDW Coeff of Sheryl 11.7 Plt Count 194 MPV 9.6 Immature Gran % (Auto) 0.400 Neut % (Auto) 65.0 Lymph % (Auto) 24.5 [place] % (Auto) 9.9 Eos % (Auto) 0.0 Baso % (Auto) 0.2 Absolute Neuts (auto) 3.5 Absolute Lymphs (auto) 1.31 Nucleated RBC % 0 Sodium 137 Potassium 3.8 Chloride 106 Carbon Dioxide 21.9 Anion Gap 10 BUN 10 Creatinine 0.71 Estim Creat Clear Calc 98.30 Est GFR (MDRD) Non-Af 124 BUN/Creatinine Ratio 14.7 Glucose 107 H Calcium 9.2 Urine Color Yellow Urine Clarity Clear Urine pH 6.5 Ur Specific [place] 1.010 Urine Protein Negative Urine Glucose (UA) Normal Urine Ketones Negative Urine Occult Blood Negative Urine Nitrite Negative Urine Bilirubin Negative Urine Urobilinogen Normal Ur Leukocyte Esterase Negative Urine RBC 0 SEEN Urine WBC 0-5 SEEN Ur Squamous Epith Cells 0-5 SEEN Urine Bacteria 0 SEEN Urine Mucus 0 SEEN Urine Test Negative <Dr. Jani Soto, DO - Last Filed: 11/14/24 00:33> [facility] MDM Narrative Medical decision making narrative: 24-year-old female presents with 3 days of bilateral leg swelling and cramping and 1 day of abdominal discomfort and diarrhea. She states she gets these flares often and attributes it to hereditary angioedema which she was recently diagnosed with. She appears well and nontoxic. Vital signs are normal. She has an overall benign exam with moist mucous membranes and a soft benign abdomen. There is no lower extremity swelling present and she states that resolved earlier today. She was given IV fluids, Toradol, and Zofran for her symptoms while blood work was obtained. CBC and BMP are normal. Urinalysis negative with no ketones or infection. test negative. Patient has had no vomiting and has been drinking fluids at home so was advised to continue oral hydration and follow-up with her specialist. Return precautions discussed. She was discharged in stable condition. Attending note: I have personally performed a face to face assessment of the patient and have reviewed the SAMMI note. I personally made/approved the management plan and take responsibility for the patient management. I performed a substantive portion of the visit including all aspects of the following. My chinchilla findings include: Current abdominal cramping leg swelling diarrhea. No recent antibiotics. Nonbloody stools. No nausea or vomiting. Diagnosed with gastroparesis previously. No admitted August of this year [facility] due to tractable vomiting she had pyloric dilatation which improved her symptoms. Workup called positive for hereditary angioedema. There is no family history of this. She is on Orladeyo 2 weeks now. Reports take at least 7 weeks to take effects. She was attempt to get breakthrough medication of Berinert, however patient states medication will cost 12,000 per dose. Exam soft abdomen there is minimal leg swelling soft compartments pulses are intact distally.. She had labs normal electrolytes. White count. Urine negative. She has been tolerating oral fluids at home. She felt better with IV fluids she is able to ambulate in the department. She had discomfort where she is using Tylenol and ibuprofen. Understands using opiates can cause worsening gastroparesis for which has happened in the past. Pharmacy here does not carry breakthrough treatment medications. Consider transfer with the patient for treatment, however she states she would like to try to continue outpatient symptom control at this time. I discussed return precautions with patient. All questions were answered. Lab Data Labs: Laboratory Results - last 24 hr 11/13/24 11/13/24 21:12 21:14 WBC 5.3 RBC 4.29 Hgb 12.4 Hct 36.8 L MCV 85.8 MCH 28.9 MCHC 33.7 RDW Std Deviation 36.3 RDW Coeff of Sheryl 11.7 Plt Count 194 MPV 9.6 Immature Gran % (Auto) 0.400 Neut % (Auto) 65.0 Lymph % (Auto) 24.5 [place] % (Auto) 9.9 Eos % (Auto) 0.0 Baso % (Auto) 0.2 Absolute Neuts (auto) 3.5 Absolute Lymphs (auto) 1.31 Nucleated RBC % 0 Sodium 137 Potassium 3.8 Chloride 106 Carbon Dioxide 21.9 Anion Gap 10 BUN 10 Creatinine 0.71 Estim Creat Clear Calc 98.30 Est GFR (MDRD) Non-Af 124 BUN/Creatinine Ratio 14.7 Glucose 107 H Calcium 9.2 Urine Color Yellow Urine Clarity Clear Urine pH 6.5 Ur Specific [place] 1.010 Urine Protein Negative Urine Glucose (UA) Normal Urine Ketones Negative Urine Occult Blood Negative Urine Nitrite Negative Urine Bilirubin Negative Urine Urobilinogen Normal Ur Leukocyte Esterase Negative Urine RBC 0 SEEN Urine WBC 0-5 SEEN Ur Squamous Epith Cells 0-5 SEEN Urine Bacteria 0 SEEN Urine Mucus 0 SEEN Urine Test Negative Discharge Plan Triage Chief Complaint: Diarrhea ED Midlevel Provider: Harleen Nielson ED Provider: Jani Soto Dx/Rx/DC Orders Clinical Impression: Acute diarrhea, Bilateral leg cramps, Angioedema, hereditary Instructions: ED Diarrhea, Unknown Cause Prescriptions: No Action potassium chloride 10 mEq capsule, extended release 10 meq PO QDAY famotidine 20 mg tablet 20 mg PO BID gabapentin 100 mg capsule 100 mg PO PRN (Reason: nerve pain) Rx Instructions: 100-300mg as needed for nerve pain Linzess 290 mcg capsule 290 mcg PO QDAY pyridostigmine bromide 60 mg tablet 60 mg PO TID methylphenidate HCl [Concerta] 18 mg Tablet Extended Release 24hr 18 mg PO DAILY propranolol 60 mg capsule,extended release 24 hr 60 mg PO DAILY Patient Comments: Take 1 capsule by mouthTonce daily.S ketorolac 10 mg tablet 10 mg PO Q6H PRN PRN (Reason: pain) Orladeyo 110 mg capsule 110 mg PO DAILY Primary Care Provider: Carly Momin Referrals: Carly Momin MD [Primary Care Provider] - Activity Restrictions/Additional Instructions: Your blood and urine tests are normal. I recommend you follow-up with your specialists. Return if symptoms worsen like if you are unable to keep down fluids, worsening abdominal pain, or you develop bloody bowel movements. Print Language: Turkish Disposition Disposition: Home, Self Care Discharge Date/Time: 11/13/24 23:02
[2024-11-13 21:19] LABS: Bacteria 0 SEEN /hpf (None Seen); Mucous, Urine 0 SEEN /hpf (<or=2+); Red Blood Cells-Urine 0 SEEN /hpf (0-5)
[2024-11-13 21:21] LABS: Color, Urine Yellow (Yellow); Glucose, Dipstick Normal (Normal); Ketone-Dipstick Negative (Negative); Leukocyte Esterase-Dipstick Negative /ul (Negative); Nitrite-Dipstick Negative (Negative); Occult Blood-Urine Negative /ul (Negative); Protein-Dipstick Negative (Negative); Urine Bilirubin Dipstick Negative (Negative); Urine Clarity Clear (Clear); Urine Urobilinogen Normal (Normal); Urine pH 6.5 (5.0 - 8.0)
[2024-11-13 21:29] LABS: Absolute Lymphocyte Count 1.31 X10^3/uL (0.83-4.51); Absolute Neutrophil Count 3.5 X10^3/uL (2.0-7.7); Basophil# 0.01 X10^3/uL; Basophil% 0.2 % (0-1); Hematocrit 36.8 % (37-47); Hemoglobin 12.4 g/dL (12.0-15.0); Lymphocyte # 1.31 X10^3/ul (0.83-4.51); Lymphocyte % 24.5 % (19-41); Mean Corp Hgb Conc 33.7 g/dL (32-36); Mean Corpuscular Hgb 28.9 pg (27.0-32.0); Mean Corpuscular Volume 85.8 fL (81-99); Mean Platelet Vol. 9.6 fl (6.2-12.0); Monocyte# 0.53 X10^3/uL; Monocyte% 9.9 % (0-10); NRBC Flagged by Analyzer 0 % (0-5); Neutrophil # 3.47 X10^3/uL (2.7-7.7); Platelet Count 194 K/mm3 (150-450); RBC Distribution Width CV 11.7 % (11.6-14.6); RBC Distribution Width SD 36.3 fl (35.1-43.9); Red Blood Count 4.29 M/mm3 (4.2-5.4); White Blood Count 5.3 K/mm3 (4.4-11.0)
[2024-11-13 21:30] LABS: Internal QC Validated? YES +Cl - CLEAR BKGD; Pregnancy, Urine Negative Negative; Squamous Epithelial Cells - UA 0-5 SEEN /hpf (5-10); White Blood Cells 0-5 SEEN /hpf (0-5)
[2024-11-13] MEDS: 0.9% Normal Saline (1000mL) 1,000 ML 999 ML IV (21:34)
[2024-11-13] MEDS: Ketorolac 15 MG/ML Vial IV (21:35)
[2024-11-13] MEDS: Ondansetron 4 MG/2 ML Vial IV (21:35)
[2024-11-13 21:47] LABS: Anion Gap 10 (5-15); BUN 10 mg/dL (4-19); BUN/Creat Ratio 14.7 RATIO (10-20); Calcium,Total 9.2 mg/dL (7.6-11.0); Carbon Dioxide 21.9 mmol/L (21.0-32.0); Chloride 106 mmol/L (98-108); Creatinine, Serum 0.71 mg/dL (0.70-1.20); EST Glomerular Filtration Rate 124 (>60); Glucose 107 mg/dL (70-99); Potassium 3.8 mmol/L (3.3-5.1); Sodium Level 137 mmol/L (133-145)
[2024-11-13 22:16] VITALS: BP 110/78; PULSE 78; RESP 16; O2SAT 98
[2024-11-13 23:01] VITALS: BP 112/67; PULSE 89; RESP 14; TEMP 36.8; O2SAT 100
== END 2024-11-13 23:02 | disposition home or self-care (01) ==
PROVIDERS: Physician Assistant; Emergency Provider Emergency Medicine; PCP Family Medicine; Visit Provider Emergency Medicine
DX: R19.7 Diarrhea, unspecified (principal); D84.1 Defects in the complement system; R10.30 Lower abdominal pain, unspecified; M79.89 Other specified soft tissue disorders; K31.84 Gastroparesis; K21.9 Gastro-esophageal reflux disease without esophagitis; R25.2 Cramp and spasm
CPT/HCPCS: 80048; 81001; 81025; 85025; 96361; 96374; 96375; 99282; A4216; J2405

== ENCOUNTER → 2024-11-16 | Outpatient (CLI) | payer OTHER, SELFPAY ==
[2024-11-16 16:30] LABS: Potassium 4.2 mmol/L (3.3-5.1)
== END | disposition home or self-care (01) ==
LOC: BWCLAB 13:48
PROVIDERS: PCP Family Medicine; Referring Provider Family Medicine; Visit Provider Family Medicine
DX: R25.2 Cramp and spasm (principal)
CPT/HCPCS: 36415; 84132

== ENCOUNTER → 2024-11-26 | Outpatient (CLI) | payer OTHER, SELFPAY ==
[2024-11-26 16:54] LABS: Absolute Lymphocyte Count 0.73 X10^3/uL (0.83-4.51); Absolute Neutrophil Count 10.5 X10^3/uL (2.0-7.7); Basophil# 0.01 X10^3/uL; Basophil% 0.1 % (0-1); Hematocrit 38.5 % (37-47); Hemoglobin 12.8 g/dL (12.0-15.0); Lymphocyte # 0.73 X10^3/ul (0.83-4.51); Lymphocyte % 6.4 % (19-41); Mean Corp Hgb Conc 33.2 g/dL (32-36); Mean Corpuscular Hgb 28.9 pg (27.0-32.0); Mean Corpuscular Volume 86.9 fL (81-99); Mean Platelet Vol. 9.8 fl (6.2-12.0); Monocyte# 0.17 X10^3/uL; Monocyte% 1.5 % (0-10); NRBC Flagged by Analyzer 0 % (0-5); Neutrophil # 10.49 X10^3/uL (2.7-7.7); Neutrophil % 91.7 % (47-70); Platelet Count 246 K/mm3 (150-450); RBC Distribution Width CV 11.6 % (11.6-14.6); RBC Distribution Width SD 37.2 fl (35.1-43.9); Red Blood Count 4.43 M/mm3 (4.2-5.4); White Blood Count 11.4 K/mm3 (4.4-11.0)
[2024-11-26 17:14] LABS: Iron 37 ug/dL (50-170); Iron Binding Capacity,Total 450 ug/dL (250-450); Iron Binding Capacity,Unsat 413 ug/dL (228-428)
[2024-11-28 07:07] LABS: Transferrin 392 mg/dL (192-364)
== END | disposition home or self-care (01) ==
LOC: BWCLAB 16:01
PROVIDERS: PCP Family Medicine; Referring Provider Advanced Practice Midwife; Visit Provider Advanced Practice Midwife
DX: M04.1 Periodic fever syndromes (principal); R53.83 Other fatigue
CPT/HCPCS: 36415; 83540; 83550; 84466; 85025

== ENCOUNTER → 2024-12-06 | Outpatient (CLI) | payer OTHER, SELFPAY | END | disposition home or self-care (01) | LOC: LAB 08:34 | PROVIDERS: PCP Family Medicine | DX: T78.40XA Allergy, unspecified, initial encounter (principal) | CPT/HCPCS: 36415; 83520 ==

== ENCOUNTER 2024-12-08 11:51 | Outpatient (CLI) | payer OTHER, SELFPAY ==
[2024-12-08 12:16] VITALS: BP 118/83; PULSE 74; RESP 16; TEMP 36.6; O2SAT 100; BMI 21.5
[2024-12-08] MEDS: 0.9% NaCl Peripheral Flush Adult IV (12:40)
[2024-12-08] MEDS: Iron Sucrose Complex 300 MG in 0.9% Normal Saline (250mL Bag) 250 ML 177 MG IV (12:41)
[2024-12-08] MEDS: 0.9% NaCl IVPB Med Flush (100mL) 15 ML IV (12:41)
[2024-12-08 14:31] VITALS: BP 120/67; PULSE 81; RESP 16; TEMP 36.7; O2SAT 98
== END 2024-12-08 23:59 | disposition home or self-care (01) ==
LOC: MEDOUTP 11:53
PROVIDERS: PCP Family Medicine; Referring Provider Obstetrics & Gynecology; Visit Provider Obstetrics & Gynecology
DX: D50.8 Other iron deficiency anemias (principal); B96.81 Helicobacter pylori [H. pylori] as the cause of diseases classified elsewhere; K29.70 Gastritis, unspecified, without bleeding
CPT/HCPCS: 96365; 96366; J1756; A4216

== ENCOUNTER 2024-12-14 11:41 | Outpatient (CLI) | payer OTHER, SELFPAY ==
[2024-12-14 11:57] VITALS: BP 126/80; RESP 16; O2SAT 98; BMI 21.5
[2024-12-14] MEDS: 0.9% NaCl Peripheral Flush Adult IV (12:08)
[2024-12-14] MEDS: 0.9% NaCl IVPB Med Flush (100mL) 15 ML IV (12:29)
[2024-12-14] MEDS: Iron Sucrose Complex 300 MG in 0.9% Normal Saline (250mL Bag) 250 ML 177 MG IV (12:29)
[2024-12-14 14:32] VITALS: BP 110/62; PULSE 79; RESP 16; TEMP 36.7; O2SAT 97
== END 2024-12-14 23:59 | disposition home or self-care (01) ==
LOC: MEDOUTP 11:41
PROVIDERS: PCP Family Medicine; Referring Provider Obstetrics & Gynecology; Visit Provider Obstetrics & Gynecology
DX: E61.1 Iron deficiency (principal); K29.40 Chronic atrophic gastritis without bleeding; B96.81 Helicobacter pylori [H. pylori] as the cause of diseases classified elsewhere
CPT/HCPCS: 96365; 96366; J1756; A4216

== ENCOUNTER 2024-12-22 12:00 | Outpatient (CLI) | payer OTHER, SELFPAY ==
[2024-12-22] MEDS: 0.9% NaCl Peripheral Flush Adult IV (12:17)
[2024-12-22] MEDS: Iron Sucrose Complex (Venofer) 300 MG in 0.9% NaCl 250 ML 176.7 MG IV (12:18)
[2024-12-22] MEDS: 0.9% NaCl IVPB Med Flush (100mL) 15 ML IV (12:18)
[2024-12-22 12:20] VITALS: BP 110/80; PULSE 89; RESP 16; TEMP 36.3; O2SAT 94; BMI 21.7
== END 2024-12-22 23:59 | disposition home or self-care (01) ==
LOC: MEDOUTP 12:00
PROVIDERS: PCP Family Medicine; Referring Provider Obstetrics & Gynecology; Visit Provider Obstetrics & Gynecology
DX: K29.40 Chronic atrophic gastritis without bleeding (principal); D50.8 Other iron deficiency anemias; B96.81 Helicobacter pylori [H. pylori] as the cause of diseases classified elsewhere
CPT/HCPCS: 96365; 96366; J1756; A4216

== ENCOUNTER → 2024-12-29 | Outpatient (CLI) | payer OTHER, SELFPAY | END | disposition home or self-care (01) | LOC: LABSPEC 08:21 | PROVIDERS: PCP Family Medicine; Referring Provider Obstetrics & Gynecology; Visit Provider Obstetrics & Gynecology | DX: J02.9 Acute pharyngitis, unspecified (principal) | CPT/HCPCS: 87070; 87651 ==

== ENCOUNTER → 2025-01-20 | Outpatient (CLI) | payer OTHER, SELFPAY ==
[2025-01-20 11:59] LABS: Hematocrit 39.9 % (37-47); Hemoglobin 13.1 g/dL (12.0-15.0); Immature Granulocytes Count 0.010 X10^3/uL (0.0-0.0); Mean Corp Hgb Conc 32.8 g/dL (32-36); Mean Corpuscular Volume 90.1 fL (81-99); Mean Platelet Vol. 9.8 fl (6.2-12.0); NRBC Flagged by Analyzer 0 % (0-5); Platelet Count 192 K/mm3 (150-450); RBC Distribution Width CV 13.2 % (11.6-14.6); RBC Distribution Width SD 43.7 fl (35.1-43.9); Red Blood Count 4.43 M/mm3 (4.2-5.4); White Blood Count 4.2 K/mm3 (4.4-11.0)
[2025-01-20 12:25] LABS: Iron 96 ug/dL (50-170); Iron Binding Capacity,Total 294 ug/dL (250-450); Iron Binding Capacity,Unsat 198 ug/dL (228-428)
[2025-01-21 05:07] LABS: Transferrin 243 mg/dL (192-364)
== END | disposition home or self-care (01) ==
LOC: BWCLAB 08:30
PROVIDERS: PCP Family Medicine; Visit Provider Obstetrics & Gynecology
DX: E61.1 Iron deficiency (principal); K29.40 Chronic atrophic gastritis without bleeding
CPT/HCPCS: 36415; 83540; 83550; 84466; 85025

== ENCOUNTER → 2025-02-22 | Outpatient (CLI) | payer OTHER, SELFPAY ==
[2025-02-22 12:19] LABS: Hematocrit 39.6 % (37-47); Hemoglobin 13.3 g/dL (12.0-15.0); Immature Granulocytes Count 0.000 X10^3/uL (0.0-0.0); Immature Reticulocyte Fraction 2.80 % (3.00-15.90); Mean Corp Hgb Conc 33.6 g/dL (32-36); Mean Corpuscular Volume 89.0 fL (81-99); Mean Platelet Vol. 9.7 fl (6.2-12.0); NRBC Flagged by Analyzer 0 % (0-5); Platelet Count 168 K/mm3 (150-450); RBC Distribution Width CV 12.9 % (11.6-14.6); RBC Distribution Width SD 42.5 fl (35.1-43.9); Red Blood Count 4.45 M/mm3 (4.2-5.4); Reticulocyte Count 0.67 % (0.5-1.5); White Blood Count 5.3 K/mm3 (4.4-11.0)
[2025-02-22 13:06] LABS: Iron 90 ug/dL (50-170); Iron Binding Capacity,Total 298 ug/dL (250-450); Iron Binding Capacity,Unsat 208 ug/dL (228-428); Vitamin B12 707 pg/mL (180-914); Vitamin D,25 Hydroxy 33.6 ng/mL (30-100)
== END | disposition home or self-care (01) ==
LOC: BWCLAB 10:50
PROVIDERS: PCP Family Medicine; Referring Provider Family Medicine; Visit Provider Family Medicine
DX: R76.8 Other specified abnormal immunological findings in serum (principal); E55.9 Vitamin D deficiency, unspecified
CPT/HCPCS: 36415; 82306; 82607; 83540; 83550; 84439; 84443; 85025; 85045

== ENCOUNTER → 2025-02-28 | Outpatient (CLI) | payer OTHER, SELFPAY | END | disposition home or self-care (01) | LOC: LABSPEC 15:45 | PROVIDERS: PCP Family Medicine; Referring Provider Advanced Practice Midwife; Visit Provider Advanced Practice Midwife | DX: N89.8 Other specified noninflammatory disorders of vagina (principal) | CPT/HCPCS: 87070; 87077; 87186; 87205 ==

== ENCOUNTER → 2025-03-30 | Outpatient (CLI) | payer OTHER, SELFPAY ==
[2025-03-30 12:45] LABS: AST(SGOT) 22 U/L (<=31); Alanine Aminotransfer ALT/SGPT 21 U/L (<=34); Albumin, Serum 4.6 g/dL (3.5-5.0); Alkaline Phosphatase 38 U/L (35-104); Anion Gap 12 (5-15); BUN 5 mg/dL (4-19); BUN/Creat Ratio 6.2 RATIO (10-20); Calcium,Total 9.4 mg/dL (7.6-11.0); Carbon Dioxide 24.5 mmol/L (21.0-32.0); Chloride 102 mmol/L (98-108); Globulin 2.1 g/dL (2.2-4.2); Glucose 91 mg/dL (70-99); Potassium 3.7 mmol/L (3.3-5.1)
[2025-03-30 14:18] LABS: Magnesium 2.0 mg/dL (1.5-2.2)
== END | disposition home or self-care (01) ==
LOC: BWCLAB 08:06
PROVIDERS: PCP Family Medicine; Visit Provider Obstetrics & Gynecology
DX: K29.40 Chronic atrophic gastritis without bleeding (principal); K31.84 Gastroparesis
CPT/HCPCS: 36415; 80053; 83735

== ENCOUNTER → 2025-06-16 | Outpatient (CLI) | payer OTHER, SELFPAY ==
--- OUTSIDE RECORDS SUMMARY | 2025-06-16 06:48 | XMS RPT_ITS | CCD ---
Author Organization [facility] Team Providers Care Knot Tying Operator Name Role Phone TOMER PIÑA Unavailable Unavailable ANSELMO RODRIGUEZ Unavailable Unavailable EILEEN NAIR Unavailable Unavailable AYANATOMER IBARRA Unavailable Unavailable EILEEN NAIR Unavailable Unavailable NAIREILEEN Narayanan Unavailable Unavailable UPADHYAYULA, JANEE Unavailable Unavailable EILEEN NAIR Unavailable Unavailable EILEEN NAIR Unavailable Unavailable UPADHYAYULA, JANEE Unavailable Unavailable UPADHYAYULA, JANEE Unavailable Unavailable EILEEN NAIR Unavailable Unavailable AYANATOMER IBARRA K Unavailable Unavailable EILEEN NAIR Unavailable Unavailable NAIREILEEN Narayanan Unavailable Unavailable UPADHYAYULA, JANEE Unavailable Unavailable UPADHYAYULA, JANEE Unavailable Unavailable EILEEN NAIR Unavailable Unavailable UPADHYAYULA, JANEE Unavailable Unavailable UPADHYAYULA, JANEE Unavailable Unavailable EILEEN NAIR Unavailable Unavailable AYANA, TOMER K Unavailable Unavailable EILEEN NAIR Unavailable Unavailable EILEEN NAIR Unavailable Unavailable EILEEN NAIR Unavailable Unavailable TEMPLE, CHERELLE Unavailable Unavailable Yanelis LÓPEZ, Albert Blake Unavailable [phone] Eileen Nair DO Primary Care Provider Eileen Nair DO Primary Care Provider Eileen Nair DO Primary Care Provider EILEEN NAIR Primary Care Unavailable RUPERT MUÑOZ Referring Unavailable BERTHA ALVARADO Attending Unavailable KRISTINA FRANKLIN Consulting Unavailable MARY MUHAMMAD Attending Unavailable CHIQUITA STAHL Admitting Unavailable EILEEN NAIR Primary Care Unavailable EILEEN NAIR Primary Care Unavailable Junior PANDYA, Lisa Unavailable Unavailab Dr. Eileen Zhang Primary Care Provider Dr. Eileen Nair Referring Provider JARED Knox Attending Provider Chip COLEMAN PA Kaveh Attending Provider [phone] Tim Lawrence Attending Provider [phone] Eileen Nair Primary Care Provider Dr. Eileen Nair Referring Provider JARED Knox Attending Provider Chip COLEMAN, PA Kaveh Attending Provider Dr. Tim Lawrence Attending Provider [phone] Tim Lawrence Attending Provider MD Carly Callejas Primary Care Provider MD Carly Callejas Referring Provider Unavailable Primary Care Provider UnavailPadmini Melara RD Unavailable Carly Callejas MD Primary Care Provider Carly Callejas MD Primary Care Provider [phone] BERNIE MCDONALD Attending Provider Unavailable Carly Callejas MD Referring Provider Dr. Natalee Murillo DC Attending Provider Dr. Mu Burroughs MD Attending Provider Carly Callejas MD Attending Provider Dr. Natalee Murillo DC Referring Provider BERNIE MARTINES Attending Provider BERNIE MARTINES Referring Provider Nehal LÓPEZ, Dr. Whaley Attending Provider Dr. Jovana Calvert MD Referring Provider Clinic, NOW Attending Provider Unavailable Carly Callejas MD Primary Care Provider Carly Callejas MD Attending Provider Carly Callejas MD Referring Provider Dr. Natalee Murillo DC Attending Provider Agustín Briceno Attending Provider Brittany SEWELL, Dr. Gunter Emergency Provider Brittany SEWELL, Dr. Gunter Attending Provider Carly Callejas MD Primary Care Provider Carly Callejas MD Attending Provider Carly Callejas MD Referring Provider Sobia Sarah CNM Attending Provider Sobia Sarah CNM Referring Provider Carly Callejas MD Primary Care Provider Carly Callejas MD Referring Provider Carly Callejas MD Attending Provider STEFFANY GUILLEN Attending Provider STEFFANY GUILLEN Referring Provider Shakir VALLADARES-Carmelina Gonzáles Attending Provider Dr. Bertha Snyder DO Attending Provider Dr. Bertha Snyder DO Referring Provider Carly Callejas MD Primary Care Provider Carly Callejas MD Referring Provider Carly Callejas MD Primary Care Provider Carly Callejas MD Referring Provider Carly Callejas MD Primary Care Provider Carly Callejas MD Attending Provider Carly Callejas MD Referring Provider ANDERSON BARKER Attending Unavailable ANDERSON BARKER Referring Unavailable BRITTA, CHALON Primary Care Unavailable CARISSA ESPANA Attending Unavailable BERNIE MARTINES Referring Unavailable BRITTA, CHALON Primary Care Unavailable DUSTIN TAMAYO Attending Unavailable DUSTIN TAMAYO Referring Unavailable BRITTA, CHALON Primary Care Unavailable ANDERSON BARKER Attending Unavailable ANDERSON BARKER Referring Unavailable BRITTA, CHALON Primary Care Unavailable Britta LÓPEZ, Carly Primary Care Physician Jorge Carr DO, Dr. Stone Attending Physician Jorge Carr DO, Dr. Stone Referring Provider Britta LÓPEZ, Carly Attending Physician Britta LÓPEZ, Carly Referring Provider Tyrel CNM, Sobia Attending Physician Tyrel CNM, Sobia Referring Provider [phone] Britta, Chalon Referring Unavailable Britta, Chalon Attending Unavailable Britta, Chalon Primary Care Unavailable Dossi, Natalee Attending Unavailable Britta, Chalon Primary Care Unavailable Dossi, Natalee Referring Unavailable PAN, MEET Attending Unavailable PAN, MEET Referring Unavailable Britta, Chalon Primary Care Unavailable Britta, Chalon Referring Unavailable Britta, Manjuon Attending Unavailable Britta, Chalon Primary Care Unavailable Vande Velde, Bertha Attending Unavailabl e Britta, Chalon Primary Care Unavailable Vande Velde, Bertha Referring Unavailabl e Sobia Sarah Attending Unavailable Sobia Sarah Referring Unavailable Britta, Chalon Primary Care Unavailable Britta, Chalon Primary Care Unavailable Britta, Manjuon Attending Unavailable Britta, Chalon Referring Unavailable PAN, MEET Attending Unavailable Britta, Chalon Primary Care Unavailable Britta, Chalon Primary Care Unavailable Jorge Carr, Bertha Attending Unavailabl e Vande Velde, Bertha Referring Unavailabl e Sobia Sarah Referring Unavailable Sobia Sarah Attending Unavailable Britta, Chalon Primary Care Unavailable Britta, Chalon Primary Care Unavailable Vande Velde, Bertha Attending Unavailabl e Britta, Manjuon Attending Unavailable Britta, Chalon Referring Unavailable Britta, Chalon Primary Care Unavailable Britta, Chalon Attending Unavailable Britta, Chalon Referring Unavailable Britta, Chalon Primary Care Unavailable Britta, Chalon Primary Care Unavailable PAN, MEET Attending Unavailable PAN, MEET Referring Unavailable Britta, Chalon Primary Care Unavailable Jani Soto Attending Unavailable Britta, Chalon Attending Unavailable Britta, Chalon Referring Unavailable Britta, Chalon Primary Care Unavailable Britta, Chalon Primary Care Unavailable Jovana Calvert Attending Unavailable Jovana Calvert Referring Unavailable DossiNatalee Attending Unavailable Britta, Chalon Primary Care Unavailable Britta, Chalon Primary Care Unavailable Mu Burroughs Attending Unavailable Britta, Chalon Referring Unavailable Britta, Chalon Primary Care Unavailable DossiNatalee Attending Unavailable Britta, Chalon Primary Care Unavailable Vande Velde, Bertha Attending Unavailabl e Vande Velde, Bertha Referring Unavailabl e Britta, Chalon Primary Care Unavailable Vande Velde, Bertha Attending Unavailabl e Vande Velde, Bertha Referring Unavailabl e Carmelina Schilling Attending Unavailable Britta, Chalon Referring Unavailable Britta, Chalon Primary Care Unavailable Vande Velde, Bertha Attending Unavailabl e Britta, Chalon Primary Care Unavailable Britta, Chalon Referring Unavailable Sobia Sarah Attending Unavailable Britta, Chalon Primary Care Unavailable DossiNatalee Attending Unavailable Britta, Chalon Referring Unavailable Britta, Chalon Primary Care Unavailable Britta, Chalon Referring Unavailable Britta, Chalon Primary Care Unavailable Jovana Calvert Attending Unavailable Dossi, Natalee Attending Unavailable Britta, Chalon Referring Unavailable Britta, Chalon Primary Care Unavailable Britta, Chalon Referring Unavailable Kael Knox Attending Unavailable Britta, Chalon Primary Care Unavailable Dossi, Natalee Attending Unavailable Britta, Chalon Referring Unavailable Britta, Chalon Primary Care Unavailable Agustín Manrique NP Attending Unavailable Britta, Chalon Primary Care Unavailable Britta, Chalon Referring Unavailable BRITTA, CHALON Primary Care Unavailable FAN SWEENEY Attending Unavailable ALAN CORTÉS Attending Unavailable BRITTA, CHALON Primary Care Unavailable MOOALAN Attending Unavailable LIZBETH CONSTANTINO Referring Unavailable BRITTA, CHALON Primary Care Unavailable MOODY LISA Attending Unavailable JESUSITA, AMBREESH Referring Unavailable BRITTA, CHALON Primary Care Unavailable JESUSITA, AMBREESH Referring Unavailable BRITTA, CHALON Primary Care Unavailable EVELINE SCOTT Attending Unavailable SILVANA SOTO Referring Unavailable BRITTA, CHALON Primary Care Unavailable MOO ALAN Referring Unavailable BRITTA, CHALON Primary Care Unavailable MOODY LISA Attending Unavailable JESUSITA, AMBREESH Referring Unavailable BRITTA, CHALON Primary Care Unavailable MOODY LISA Attending Unavailable JESUSITA, AMBREESH Referring Unavailable BRITTA, CHALON Primary Care Unavailable NIMESH, AHILA Referring Unavailable BRITTA, CHALON Primary Care Unavailable JESUSITA, AMBREESH Attending Unavailable BRITTA, CHALON Primary Care Unavailable JESUSITA, AMBREESH Referring Unavailable BRITTA, CHALON Primary Care Unavailable MOO, ALAN Referring Unavailable BRITTA, CHALON Primary Care Unavailable NIMESH, AHILA Attending Unavailable BRITTA, CHALON Primary Care Unavailable NIMESH, AHILA Referring Unavailable BRITTA, CHALON Primary Care Unavailable BERNIE MARTINES Attending Unavailable BRITTA, CHALON Primary Care Unavailable KERI HOUGH Attending Unavailable TIKIPHAEL, BERNIE Referring Unavailable BRITTA, CHALON Primary Care Unavailable NIMESH, AHILA Referring Unavailable BRITTA, CHALON Primary Care Unavailable ANDERSON BARKER Referring Unavailable BRITTA, CHALON Primary Care Unavailable NIMESH, AHILA Referring Unavailable BRITTA, CHALON Primary Care Unavailable BRITTA, CHALON Primary Care Unavailable JESUSITA, AMBREESH Referring Unavailable BRITTA, CHALON Primary Care Unavailable MOODY LISA Attending Unavailable JESUSITA, AMBREESH Referring Unavailable BRITTA, CHALON Primary Care Unavailable MOODY LISA Attending Unavailable JESUSITA, AMBREESH Referring Unavailable BRITTA, CHALON Primary Care Unavailable MOODY LISA Attending Unavailable JESUSITA, AMBREESH Referring Unavailable BRITTA, CHALON Primary Care Unavailable MOODY LISA Attending Unavailable JESUSITA, AMBREESH Referring Unavailable BRITTA, CHALON Primary Care Unavailable GENESIS GAVIN Attending Unavailable BRITTA, CHALON Primary Care Unavailable NIMESH, AHILA Attending Unavailable BRITTA, CHALON Primary Care Unavailable JESUSITA, AMBREESH Attending Unavailable BRITTA, CHALON Primary Care Unavailable NIMESH, AHILA Attending Unavailable BRITTA, CHALON Primary Care Unavailable BRITTA, CHALON Primary Care Unavailable CALER MARINA Admitting Unavailable DRAGAN LOWE Attending Unavailable ZARI HAGER Attending Unavailable BRITTA, CHALON Primary Care Unavailable JESUSITA, AMBREESH Referring Unavailable BRITTA, CHALON Primary Care Unavailable ANDERSON BARKER Attending Unavailable BRITTA, CHALON Primary Care Unavailable JOSUE, BERNIE Attending Unavailable JOSUE, BERNIE Referring Unavailable BRITTA, CHALON Primary Care Unavailable MOO, ALAN Referring Unavailable BRITTA, CHALON Primary Care Unavailable JESUSITA, AMBREESH Attending Unavailable BRITTA, CHALON Primary Care Unavailable ANDERSON BARKER Referring Unavailable BRITTA, CHALON Primary Care Unavailable ANDERSON BARKER Attending Unavailable BRITTA, CHALON Primary Care Unavailable ANDERSON BARKER Attending Unavailable BRITTA, CHALON Primary Care Unavailable JESUSITA, AMBREESH Attending Unavailable BRITTA, CHALON Primary Care Unavailable BERNIE MARTINES Referring Unavailable BRITTA, CHALON Primary Care Unavailable NIMESH, AHILA Attending Unavailable ALAN CORTÉS Referring Unavailable BRITTA, CHALON Primary Care Unavailable NIMESH, AHILA Referring Unavailable BRITTA, CHALON Primary Care Unavailable JOSUE BERNIE Attending Unavailable BRITTA, CHALON Primary Care Unavailable JESUSITA, AMBREESH Referring Unavailable BRITTA, CHALON Primary Care Unavailable Allergies Allergy Classification Reported Allergen(s) Allergy Type Date of Onset Reaction(s) Facility Acetaminophen / HYDROcodone (1 source) Acetaminophen / HYDROcodone Drug Allergy 05-29-20 22 Swelling [facility] Benzodiazepines (1 source) Midazolam Drug Allergy 02-03-20 12 Mental Status Change [facility] Cephalosporins (antibiotic) (1 source) cefdinir Drug Allergy 08-31-19 21 Swelling [facility] diphenhydrAMINE (1 source) diphenhydrAMINE Drug Allergy 09-18-19 24 Mental Status Change [facility] Work Phone: DOPamine Antagonists (1 source) Droperidol Drug Allergy 09-18-19 24 Other: See Comments [facility] Latex (1 source) Latex Substance Allergy 03-28-20 07 Swelling [facility] Penicillins (antibiotic) (1 source) Penicillins Drug Allergy 07-23-19 06 Rash [facility] Prochlorperazine (1 source) Prochlorperazine Drug Allergy 11-05-19 23 Intolerance [facility] Wheat gluten extract (1 source) Wheat gluten extract Drug Allergy 04-12-20 20 GI Upset [facility] (20 sources) Latex; Translations: [LATEX] Propensity to adverse reactions to drug (disorder) 03-28-20 07 Swelling, Hives [facility] (1 source) Midazolam; Translations: [MIDAZOLAM] Drug Allergy 04-06-20 15 AOF [facility] (20 sources) Penicillins; Translations: [PENICILLINS] Propensity to adverse reactions to drug (disorder) 07-23-19 06 Rash [facility] (1 source) House dust mite; Translations: [DUST MITES] allergy to substance 02-03-20 19 [facility] Work Phone: (1 source) [place] [employer] drug allergy 02-03-20 19 [facility] Work Phone: (1 source) Midazolam Drug Allergy 02-03-20 19 [facility] Work Phone: (20 sources) Midazolam; Translations: [MIDAZOLAM HCL] Drug Allergy 02-03-20 12 change in mental status, Other [facility] Work Phone: (1 source) Mold Extract; Translations: [MOLD] Drug Allergy 02-03-20 19 [facility] Work Phone: (1 source) Penicillin Drug Allergy 03-14-20 15 hives [facility] Work Phone: (1 source) PLANT POLLENS; Translations: [PLANT POLLENS] allergy to substance 02-03-20 [facility] Work Phone: (20 sources) cefdinir; Translations: [CEFDINIR] Drug Allergy 08-31-19 21 Swelling [facility] (20 sources) Midazolam Drug Allergy 02-03-20 12 Mental Status Change [facility] (20 sources) Wheat gluten extract; Translations: [GLUTEN] Drug Allergy 04-12-20 20 GI Upset [facility] (20 sources) Acetaminophen / HYDROcodone; Translations: [HYDROCODONE-ACETAM INOPHEN] Drug Allergy 05-29-20 22 Swelling [facility] (20 sources) Prochlorperazine; Translations: [PROCHLORPERAZINE] Drug Allergy 11-05-19 23 Intolerance [facility] (20 sources) diphenhydrAMINE; Translations: [DIPHENHYDRAMINE] Drug Allergy 09-18-19 24 Mental Status Change [facility] Work Phone: (20 sources) Droperidol; Translations: [DROPERIDOL] Drug Allergy 09-18-19 24 Other: See Comments [facility] (14 sources) Haloperidol Drug Allergy 11-14-19 agitation [facility] (1 source) cefdinir Drug Allergy 12-23-19 [facility] (1 source) diphenhydrAMINE Drug Allergy 02-29-20 [facility] (1 source) Gluten Drug allergy (disorder) 02-29-20 [facility] (1 source) Haloperidol Drug Allergy 02-29-20 [facility] (1 source) Midazolam Drug Allergy 02-29-20 [facility] (1 source) Prochlorperazine Drug Allergy 02-29-20 [facility] Rep[facility] Medications Current Medications Medication Drug Class(es) Dates Sig (Normalized) Sig (Original) Berotralstat (14 sources) Start: 11-13-2024 take 1 capsule by mo uth once daily Start: 11-13-2024 take 1 capsule by mo uth once daily Berotralstat (Berotralstat 110 Mg Capsule) 110 mg capsule Active 110 mg PO DAILY November 13, 2024 12:00am berotralstat 110 mg cap (14 sources) Start: 11-13-2024 take 1 capsule by mouth once daily berotralstat 110 mg cap Take 110 mg by mouth once daily. 11/13/2024 Active bismuth subsalicylate 262 mg chewable tablet (10 sources) Bismuth Start: 11-19-2023 End: 11-29-2023 take 2 tablets by mouth four times daily bismuth subsalicylate (PEPTO-BISMOL) 262 mg chewable tablet Take 2 tablets by mouth four times daily for 10 days. 80 tablet 0 11/19/2023 Active lidocaine visc 2% MAALOX 200-200-20 mg/5 mL oral liquid 1:1:6 (CPD) (1 source) Start: 03-22-2025 End: 04-05-2025 take 10 mL by mouth three times daily as needed for pain lidocaine visc 2% MAALOX 200-200-20 mg/5 mL oral liquid 1:1:6 (CPD) Indications: Gastroparesis , Epigastric pain Take 10 mL by mouth three times a day as needed (Chest/throat burning, epigastric pain) for up to 14 days. 210 mL 1 03/22/2025 04/05/2025 Active erythromycin 250 mg delayed release oral tablet (6 sources) Macrolide, Macrolide Antimicrobial Start: 02-06-2024 End: 02-20-2024 take 1 tablet by mouth three times daily erythromycin DR (ROMY-TAB) 250 mg EC tablet Take 1 tablet by mouth three times a day for 14 days. 42 tablet 0 02/06/2024 02/20/2024 Active famotidine 20 mg oral tablet (20 sources) Histamine-2 Receptor Antagonist Start: 02-06-2024 End: 03-20-2025 take 1 tablet by mouth twice daily fluconazole 150 mg oral tablet (18 sources) Azole Antifungal Start: 02-28-2025 Start: 12-01-2023 End: 05-24-2024 take 1 tablet by mouth once daily Fluconazole (Diflucan) 200 mg tablet Discontinued 200 mg PO DAILY 7 0 December 01, 2023 12:00am May 24, 2024 4:14pm folic acid 1 mg oral tablet (15 sources) Start: 11-14-2023 take 1 tablet by mouth once daily folic acid 1 mg tablet Take 1 tablet by mouth once daily. 0 11/14/2023 Active gabapentin 100 mg oral capsule (20 sources) Anti-epileptic Agent Start: 01-28-2025 take 1 capsule by mouth three times daily Start: 05-24-2024 End: 12-14-2024 Gabapentin 100 mg capsule Discontinued 100 mg PO as needed for nerve pain May 24, 2024 1:00am December 14, 2024 11:56am 100-300mg as needed for nerve pain Start: 03-01-2024 End: 03-02-2025 Gabapentin 100 mg capsule Discontinued 100 mg PO as needed for nerve pain May 24, 2024 1:00am December 14, 2024 11:56am 100-300mg as needed for nerve pain Start: 02-06-2024 End: 03-09-2024 take 1 capsule by mouth three times daily gabapentin (NEURONTIN) 100 mg capsule Take 1 capsule by mouth three times a day for 30 days. 90 capsule 02/06/2024 03/09/2024 Discontinued hydrocortisone 25 mg/ml topical cream (4 sources) Corticosteroid Start: 11-28-2022 End: 12-12-2022 hydrocortisone 2.5 % cream Indications: Seborrheic dermatitis Apply 1 application to affected area once daily for 14 days. TO AFFECTED AREA. 20 g 0 11/28/2022 12/12/2022 Active Comment on above: Apply 1 application to affected area once daily for 14 days. TO AFFECTED AREA. hydroxychloroquine sulfate 200 mg oral tablet (20 sources) Antimalarial, Antirheumatic Agent Start: 12-15-2024 End: 06-09-2025 take 1 tablet by mouth once daily 3 ml icatibant 10 mg/ml prefilled syringe (20 sources) Bradykinin B2 Receptor Antagonist Start: 10-18-2024 End: 10-18-2025 icatibant (FIRAZYR) 30 mg/3 mL injection Indications: Hereditary angioedema type 2 (HCC) , Low serum complement C4 Inject 3 mL subcutaneously three times a day as needed (for acute swelling episodes). 9 mL 11 10/18/2024 10/18/2025 Active Start: 10-13-2024 End: 10-13-2024 icatibant (FIRAZYR) 30 mg/3 mL injection Indications: Hereditary angioedema type 2 (HCC) , Low serum complement C4 Inject 3 mL subcutaneously one time only for 1 dose. 3 mL 10/13/2024 10/13/2024 Active ketoconazole 20 mg/ml topical cream (4 sources) Azole Antifungal Start: 11-28-2022 End: 12-12-2022 ketoconazole (NIZORAL) 2 % cream Indications: Seborrheic dermatitis Apply to affected area twice daily for 14 days. APPLY TO AFFECTED AREA 30 g 0 11/28/2022 12/12/2022 Active Comment on above: Apply to affected ar ea twice daily for 14 days. APPLY TO AFFECTED AREA ketorolac tromethamine 10 mg oral tablet (18 sources) Nonsteroidal Anti-inflammatory Drug, Cyclooxygenase Inhibitor Start: 11-13-2024 End: 01-28-2025 take 1 tablet by mouth every six hours as needed for pain lidocaine visc 2% MAALOX 200-200-20 mg/5 mL oral liquid 1:2 (CPD) (20 sources) Start: 03-03-2024 End: 04-02-2024 lidocaine visc 2% MAALOX 200-200-20 mg/5 mL oral liquid 1:2 (CPD) Swish and spit 5 mL by mouth once daily as needed. 150 mL 03/03/2024 04/02/2024 Active Start: 03-03-2024 End: 04-02-2024 lidocaine visc 2% MAALOX 200 -200-20 mg/5 mL oral liquid 1:2 (CPD) Take 5 mL by mouth once daily as needed. 150 mL 03/03/2024 04/02/2024 Active Start: 03-01-2024 End: 03-03-2024 lidocaine visc 2% MAALOX 200 -200-20 mg/5 mL oral liquid 1:2 (CPD) Take 5 mL by mouth once daily as needed. 150 mL 03/01/2024 03/03/2024 Discontinued Start: 03-01-2024 End: 03-31-2024 lidocaine visc 2% MAALOX 200 -200-20 mg/5 mL oral liquid 1:2 (CPD) Take 5 mL by mouth once daily as needed. 150 mL 03/01/2024 03/31/2024 Active magnesium sulfate 0.0277 meq/ml / potassium sulfate 0.0374 meq/ml / sodium sulfate 0.257 meq/ml oral solution (3 sources) Start: 02-19-2024 End: 02-21-2024 sodium sulfate-potassium sulfate-magnesium sulfate (SUPREP BOWEL PREP KIT) 17.5-3.13-1.6 gram oral liquid Indications: Aphthous ulcer of mouth Take 1 Bottle by mouth as directed for 2 days. Refer to instructions given by your provider. 1 Kit 0 02/19/2024 02/21/2024 Active meloxicam 15 mg oral tablet (20 sources) Nonsteroidal Anti-inflammatory Drug Start: 11-24-2024 End: 02-22-2025 take 1 tablet by mouth once daily meloxicam (MOBIC) 15 mg tablet Take 1 tablet by mouth once daily. 30 tablet 2 11/24/2024 02/22/2025 Active metroNIDAZOLE 500 mg oral tablet (12 sources) Nitroimidazole Antimicrobial Start: 11-19-2023 End: 11-29-2023 take 1 tablet by mouth three times daily metroNIDAZOLE (FLAGYL) 500 mg tablet Take 1 tablet by mouth three times a day for 10 days. 30 tablet 0 11/19/2023 11/29/2023 Active Start: 12-11-2022 metroNIDAZOLE (METROCREAM) 0.75 % cream Use once daily to affected areas 45 g 0 12/11/2022 Active Comment on above: Use once daily to af fected areas MULTIVITAMIN ORAL (20 sources) take 1 tablet by mouth once daily MULTIVITAMIN ORAL Take 1 tablet by mouth once daily. Suspended take 1 tablet by mouth once jairo y MULTIVITAMIN ORAL Take 1 tablet by mouth once daily. Active take 1 tablet by mouth once jairo y MULTIVITAMIN ORAL Take 1 tablet by mouth once daily. 0 Suspended take 1 tablet by mouth once jairo y MULTIVITAMIN ORAL Take 1 tablet by mouth once daily. 0 Active MULTIVITAMIN ORA L Take by mouth once daily. 0 Suspended MULTIVITAMIN ORA L Take by mouth once daily. 0 Active Comment on above: Take by mouth once d aily. omeprazole 20 mg delayed release oral capsule (10 sources) Proton Pump Inhibitor Start: 4 End: 4 take 1 capsule by mouth twice daily omeprazole (PRILOSEC) 20 mg capsule Take 1 capsule by mouth two times a day for 10 days. 20 capsule 0 11/19/2023 Active pantoprazole 40 mg delayed release oral tablet (20 sources) Proton Pump Inhibitor Start: 5 End: 5 take 1 tablet by mouth twice daily pantoprazole DR (PROTONIX) 40 mg tablet Indications: Gastroparesis Take 1 tablet by mouth two times a day. Start taking medication after procedure for 4 weeks. 60 tablet 03/04/2025 04/03/2025 Active Start: 11-03-2022 End: 05-24-2024 take 1 tablet by mouth once daily Pantoprazole 40 mg tablet,delayed release (DR/EC) Discontinued 40 mg PO DAILY 30 September 08, 2023 1:27pm May 24, 2024 4:14pm Comment on above: Take 1 tablet by william th DAILY (6 AM). Take 1 tablet by william th once daily. polyethylene glycol 3350 438677 mg / potassium chloride 2970 mg / sodium bicarbonate 6740 mg / sodium chloride 5860 mg / sodium sulfate 34849 mg powder for oral solution (13 sources) Osmotic Laxative Start: 11-19-2023 peg 3350-Electrolytes (GOLYTELY) 236-22.74-6.74 -5.86 gram suspension Refer to printed patient instructions that will be mailed to you. 4000 mL 0 11/19/2023 Active Start: 11-12-2023 End: 11-12-2023 peg 3350-Electrolytes (GOLYT JOSÉ) 236-22.74-6.74 -5.86 gram suspension Refer to printed patient instructions that will be mailed to you. 4000 mL 0 11/12/2023 11/12/2023 Discontinued potassium chloride 10 meq extended release oral capsule (20 sources) Start: 03-30-2025 take 2 capsules by m outh once daily Start: 08-13-2024 End: 03-30-2025 take 1 capsule by mouth once daily Potassium Chloride 10 mEq capsule, extended release Discontinued 10 meq PO daily August 13, 2024 1:00am March 30, 2025 2:42pm Start: 09-12-2023 End: 12-01-2023 take 1 capsule by mouth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 Onset: 8 02-26-2018 Episodic Other connective tissue disease (1 source) Pain in both feet; Translations: [Pain in right foot] Episodic Other connective tissue disease (1 source) Pain of toe of left foot; Translations: [Pain in left toe(s)] Episodic Other connective tissue disease (2 sources) Pain of toe of right foot; Translations: [Pain in right toe(s)] Episodic Other connective tissue disease (2 sources) Cramp in lower limb; Translations: [Cramp and spasm] 05-26-2024 Episodic Other connective tissue disease (14 sources) Bilateral cramp of muscle of lower limbs; Translations: [Cramp and spasm] 11-13-2024 Episodic Other connective tissue disease (1 source) Muscle weakness; Translations: [Muscle weakness (generalized)] 12-01-2024 Episodic Other disorders of stomach and duodenum (20 sources) Gastroparesis syndrome; Translations: [Gastroparesis] Onset: 4 09-25-2023 Episodic Other endocrine disorders (4 sources) Gastrointestinal hormone level - finding; Translations: [Increased secretion of gastrin] 02-19-2024 Chronic Other endocrine disorders (1 source) Increased secretion of gastrin; Translations: [Elevated gastrin level] Onset: 4 Chronic Other female genital disorders (2 sources) Vaginal discharge; Translations: [Other specified noninflammatory disorders of vagina] 03-03-2025 Episodic Other female genital disorders (1 source) Other specified noninflammatory disorders of vagina; Translations: [Other specified noninflammatory disorders of vagina] Onset: Episodic Other gastrointestinal disorders (1 source) Irritable bowel syndrome characterized by constipation; Translations: [Irritable bowel syndrome with constipation] 03-01-2024 Chronic Other gastrointestinal disorders (20 sources) Chronic idiopathic constipation; Translations: [Chronic idiopathic constipation] Onset: 5 09-21-2024 Chronic Other gastrointestinal disorders (1 source) Chronic idiopathic constipation; Translations: [Chronic idiopathic constipation] Onset: 5 Chronic Other gastrointestinal disorders (1 source) Constipation, unspecified; Translations: [Constipation, unspecified constipation type] Onset: 3 Episodic Other gastrointestinal disorders (20 sources) Constipation; Translations: [Constipation, unspecified] 08-27-2023 Episodic Other gastrointestinal disorders (2 sources) Burping; Translations: [Eructation] 11-12-2023 Episodic Other gastrointestinal disorders (4 sources) Slow transit constipation; Translations: [Slow transit constipation] 09-17-2024 Episodic Other gastrointestinal disorders (14 sources) Acute diarrhea; Translations: [Diarrhea, unspecified] 11-13-2024 Episodic Other hematologic conditions (6 sources) Complement level below reference range; Translations: [Other specified abnormalities of plasma proteins] 08-20-2024 Episodic Other infections; including parasitic (2 sources) Recurrent infectious disease; Translations: [Unspecified infectious disease] 10-13-2024 Episodic Other inflammatory condition of skin (1 source) Perioral dermatitis; Translations: [Perioral dermatitis] Chronic Other inflammatory condition of skin (1 source) Seborrheic dermatitis; Translations: [Seborrheic dermatitis, unspecified] Episodic Other injuries and conditions due to external causes (1 source) H/O: fracture; Translations: [Personal history of (healed) traumatic fracture] 12-09-2023 Episodic Other injuries and conditions due to external causes (6 sources) Angioedema; Translations: [Angioneurotic edema, sequela] 08-20-2024 Episodic Other liver diseases (1 source) Lesion of liver; Translations: [Liver disease, unspecified] 10-14-2023 Chronic Other lower respiratory disease (1 source) Wheezing; Translations: [Wheezing] Episodic Other nervous system disorders (20 sources) Narcolepsy without cataplexy ; Translations: [Narcolepsy without cataplexy] Onset: 7 07-15-2016 Chronic Other nervous system disorders (20 sources) Narcolepsy; Translations: [Narcolepsy without cataplexy] Onset: 3 Resolved: 7 07-15-2016 Chronic Other nervous system disorders (2 sources) Other chronic pain; Translations: [Chronic RUQ pain] Onset: 4 Chronic Other nervous system disorders (2 sources) Narcolepsy without cataplexy; 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)] Onset: 5 Chronic Other nervous system disorders (1 source) Personal history of other diseases of the nervous system and sense organs; Translations: [History of epilepsy] Onset: 5 Episodic Other non-traumatic joint disorders (20 sources) Multiple joint pain; Translations: [Pain in unspecified joint] Onset: 5 11-01-2024 Episodic Other non-traumatic joint disorders (20 sources) Joint pain; Translations: [Pain in unspecified joint] Onset: 5 01-19-2025 Episodic Other screening for suspected conditions (not mental disorders or infectious disease) (9 sources) Other specified abnormal findings of blood chemistry; Translations: [Other abnormal blood chemistry] Onset: 5 09-15-2024 Episodic Other skin disorders (3 sources) Bilateral ingrowing nail of toe of feet; Translations: [Ingrowing nail] Episodic Other skin disorders (2 sources) Ingrowing nail; Translations: [Ingrowing nail] Episodic Other skin disorders (1 source) Dystrophia unguium; Translations: [Nail dystrophy] 05-02-2023 Episodic Other skin disorders (3 sources) Eruption; Translations: [Rash and other nonspecific skin eruption] 11-01-2024 Episodic Other upper respiratory disease (20 sources) Allergic rhinitis due to pollen; Translations: [Allergic rhinitis due to pollen] Onset: 0 04-24-2020 Chronic Other upper respiratory disease (1 source) Other allergic rhinitis; Translations: [Allergic rhinitis due to other allergic trigger, unspecified seasonality] Onset: 5 Chronic Other upper respiratory disease (1 source) Chronic rhinitis; Translations: [Chronic rhinitis] Onset: 5 Chronic Regional enteritis and ulcerative colitis (1 source) Crohn's disease of colon; Translations: [Crohn's disease of large intestine without complications] 04-13-2024 Chronic Residual codes; unclassified (1 source) Influenza-like symptoms; Translations: [Other general symptoms and signs] Episodic Residual codes; unclassified (7 sources) Postoperative state; Translations: [Other specified postprocedural states] Episodic Residual codes; unclassified (1 source) History of laparoscopy; Translations: [Other specified postprocedural states] 03-22-2024 Episodic Screening and history of mental health and substance abuse codes (1 source) Depression screening negative; Translations: [Encounter for screening for depression] Episodic Sprains and strains (20 sources) Sprain of foot; Translations: [Strain of thoracic region] Onset: 4 Resolved: 1 07-20-2015 Episodic Unclassified (1 source) Transaminitis; Translations: [Transaminitis] Onset: 3 Unclassified (2 sources) Elevated LFTs 09-17-2024 Unclassified (2 sources) POTS (postural orthostatic tachycardia syndrome); Translations: [POTS (postural orthostatic tachycardia syndrome)] Onset: 4 Unclassified (1 source) [facility] Onset: 5 Past or Other Problems Problem Classification Problem Date Documented Da te Episodic/Chronic Abdominal pain (20 sources) Right upper quadrant pain; Translations: [Right upper quadrant pain] Onset: 10-30-2022 Resolved: 03-15-2025 11-03-2022 Episodic Acquired foot deformities (20 sources) Finding of joint of toe; Translations: [Acquired right mallet toe] Onset: 02-05-2019 Resolved: 10-25-2022 02-05-2019 Episodic Acquired foot deformities (20 sources) Finding of joint of toe; Translations: [Acquired left mallet toe] Onset: 02-05-2019 Resolved: 05-29-2022 02-05-2019 Episodic Acute and chronic tonsillitis (20 sources) Recurrent acute tonsillitis; Translations: [Acute recurrent tonsillitis, unspecified] Onset: 12-22-2009 Resolved: 07-15-2016 07-15-2016 Episodic Administrative/social admission (20 sources) Academic problem; Translations: [Other problems related to education and literacy] Onset: 02-02-2011 Resolved: 08-31-2020 08-31-2020 Episodic Anxiety disorders (20 sources) Acute stress disorder; Translations: [Acute stress reaction] Onset: 11-18-2013 Resolved: 08-31-2020 08-31-2020 Chronic Asthma (20 sources) Intermittent asthma well controlled; Translations: [Mild intermittent asthma, uncomplicated] Onset: 10-18-2022 Resolved: 03-15-2025 Chronic Attention-deficit, conduct, and disruptive behavior disorders (20 sources) Attention deficit hyperactivity disorder, predominantly inattentive type; Translations: [Attention-deficit hyperactivity disorder, predominantly inattentive type] Onset: 07-15-2016 Resolved: 01-06-2018 01-06-2018 Chronic Complications of surgical procedures or medical care (20 sources) Delayed recovery from general anesthesia; Translations: [Other complications of anesthesia, subsequent encounter] Onset: 10-18-2022 Episodic Deficiency and other anemia (1 source) Other iron deficiency anemias; Translations: [Other iron deficiency anemias] Onset: 12-15-2024 Episodic Diseases of mouth; excluding dental (10 sources) Aphthous ulcer of mouth; Translations: [Recurrent oral aphthae] Onset: 07-19-2024 02-19-2024 Episodic E Codes: Adverse effects of medical drugs (20 sources) Beta lactam adverse reaction; Translations: [Adverse effect of cephalosporins and other beta-lactam antibiotics, initial encounter] Onset: 04-24-2020 04-24-2020 Episodic Epilepsy; convulsions (20 sources) Epilepsy, not refractory; Translations: [Epilepsy, unspecified, not intractable, without status epilepticus] Onset: 09-27-2008 Resolved: 08-15-2018 Chronic Epilepsy; convulsions (20 sources) Seizure; Translations: [Unspecified convulsions] Onset: 12-30-2015 Resolved: 07-12-2016 07-12-2016 Episodic Essential hypertension (20 sources) Hypertensive disorder; Translations: [Essential (primary) hypertension] Onset: 04-11-2020 Resolved: 04-12-2020 04-12-2020 Chronic Fever of unknown origin (10 sources) Fever; Translations: [Fever presenting with conditions classified elsewhere] Onset: 05-24-2024 07-13-2024 Episodic Gastritis and duodenitis (20 sources) Gastritis; Translations: [Gastritis, unspecified, without bleeding] Onset: 08-30-2024 Resolved: 03-15-2025 02-19-2024 Episodic Headache; including migraine (20 sources) Migraine without aura, not refractory ; Translations: [Migraine without aura, not intractable, without status migrainosus] Onset: 05-11-2020 Resolved: 03-04-2024 05-11-2020 Chronic Headache; including migraine (20 sources) Acute headache; Translations: [Acute intractable headache] Onset: 04-10-2020 Resolved: 08-31-2020 08-31-2020 Episodic Immunizations and screening for infectious disease (20 sources) Patient encounter status; Translations: [Encounter for screening for respiratory tuberculosis] Onset: 08-30-2024 Episodic Malaise and fatigue (4 sources) Malaise and fatigue; Translations: [Other malaise] Onset: 11-01-2024 11-01-2024 Episodic Miscellaneous mental health disorders (20 sources) Somatization disorder; 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] Onset: 04-12-2020 Resolved: 08-31-2020 08-31-2020 Chronic Nausea and vomiting (20 sources) Nausea and vomiting; Translations: [Nausea with vomiting, unspecified] Onset: 07-03-2011 Resolved: 03-15-2025 11-02-2022 Episodic Noninfectious gastroenteritis (3 sources) Inflammatory bowel disease; Translations: [Noninfective gastroenteritis and colitis, unspecified] Onset: 04-09-2024 03-01-2024 Episodic Nutritional deficiencies (20 sources) Malnutrition (calorie); Translations: [Moderate protein-calorie malnutrition] Onset: 09-19-2023 Resolved: 03-15-2025 09-25-2023 Chronic Other aftercare (1 source) Encounter for follow-up examination after completed treatment for conditions other than malignant neoplasm; Translations: [Encounter for follow-up examination after completed treatment for conditions other than malignant neoplasm] Onset: 08-18-2024 Episodic Other bone disease and musculoskeletal deformities (1 source) Segmental and somatic dysfunction of cervical region; Translations: [Segmental and somatic dysfunction of cervical region] Onset: 08-26-2024 Episodic Other bone disease and musculoskeletal deformities (1 source) Segmental and somatic dysfunction of lumbar region; Translations: [Segmental and somatic dysfunction of lumbar region] Onset: 08-26-2024 Episodic Other bone disease and musculoskeletal deformities (1 source) Segmental and somatic dysfunction of thoracic region; Translations: [Segmental and somatic dysfunction of thoracic region] Onset: 08-26-2024 Episodic Other bone disease and musculoskeletal deformities (1 source) Segmental and somatic dysfunction of pelvic region; Translations: [Segmental and somatic dysfunction of pelvic region] Onset: 08-26-2024 Episodic Other circulatory disease (20 sources) Elevated [...] 04-24-2016 04-24-2016 Episodic Other connective tissue disease (2 sources) Cramp and spasm; Translations: [Cramp and spasm] Onset: 05-26-2024 Episodic Other disorders of stomach and duodenum (4 sources) Gastroparesis; Translations: [Gastroparesis] Onset: 09-25-2023 Episodic Other fractures (20 sources) Disorder of bone; Translations: [Stress fracture, unspecified site, initial encounter for fracture] Onset: 04-14-2013 Resolved: 08-31-2020 08-31-2020 Episodic Other gastrointestinal disorders (20 sources) Drug-induced constipation; Translations: [Drug induced constipation] Onset: 10-31-2022 11-02-2022 Episodic Other gastrointestinal disorders (2 sources) Diarrhea, unspecified; Translations: [Diarrhea, unspecified] Onset: 01-30-2024 Episodic Other gastrointestinal disorders (1 source) Slow transit constipation; Translations: [Slow transit constipation] Onset: 09-15-2024 Episodic Other hematologic conditions (2 sources) Other specified abnormalities of plasma proteins; Translations: [Low serum complement C4] Onset: 07-15-2024 Episodic Other infections; including parasitic (1 source) Unspecified infectious disease; Translations: [Recurrent infections] Onset: 10-13-2024 Episodic Other injuries and conditions due to external causes (2 sources) Angioneurotic edema, sequela; Translations: [Angioedema, sequela] Onset: 08-20-2024 Episodic Other liver diseases (20 sources) Enzyme level - finding; Translations: [Elevated transaminase level] Onset: 10-31-2022 Resolved: 11-02-2022 11-02-2022 Episodic Other lower respiratory disease (20 sources) Cough; Translations: [Cough] Onset: 12-06-2016 Resolved: 01-06-2018 01-06-2018 Episodic Other nervous system disorders (20 sources) Abnormal gait; Translations: [Unspecified abnormalities of gait and mobility] Onset: 04-01-2008 Resolved: 07-15-2016 07-15-2016 Episodic Other nervous system disorders (6 sources) H/O: epilepsy; Translations: [Personal history of other diseases of the nervous system and sense organs] Onset: 10-18-2022 03-15-2025 Episodic Other non-traumatic joint disorders (2 sources) Pain in unspecified joint; Translations: [Hypermobility arthralgia] Onset: 01-26-2025 Episodic Other skin disorders (20 sources) Lip swelling; Translations: [Localized swelling, mass and lump, head] Onset: 04-24-2020 Resolved: 08-31-2020 08-31-2020 Episodic Other skin disorders (1 source) Rash and other nonspecific skin eruption; Translations: [Rash and nonspecific skin eruption] Onset: 11-01-2024 Episodic Other upper respiratory infections (20 sources) Upper respiratory infection; Translations: [Acute upper respiratory infection, unspecified] Onset: 10-15-2024 09-19-2024 Episodic Ovarian cyst (20 sources) Cyst of right ovary; Translations: [Unspecified ovarian cyst, right side] Onset: 10-30-2022 11-02-2022 Episodic Residual codes; unclassified (20 sources) Disturbance in sleep behavior; Translations: [Sleep disorder, unspecified] Onset: 02-02-2011 Resolved: 10-13-2014 10-13-2014 Episodic Residual codes; unclassified (1 source) Other specified postprocedural states; Translations: [PONV (postoperative nausea and vomiting)] Onset: 03-04-2024 Episodic Thyroid disorders (1 source) Disorder of thyroid, unspecified; Translations: [Disorder of thyroid, unspecified] Onset: 08-24-2024 Episodic Unclassified (1 source) Problem Viral infection (20 sources) Verruca vulgaris; Translations: [Viral wart, unspecified] Onset: 08-19-2012 Resolved: 01-06-2018 01-06-2018 Episodic Results Test Name Value Interpretation Reference Range Facility CNTHERAPYon 05-04-2025 CNTHERAPY Normal [facility] CNTHERAPYon 04-27-2025 CNTHERAPY Normal [facility] CNPNon 04-26-2025 CNPN Normal [facility] CNTHERAPYon 04-20-2025 CNTHERAPY Normal [facility] CNTHERAPYon 04-13-2025 CNTHERAPY Normal [facility] CNTHERAPYon 04-06-2025 CNTHERAPY Normal [facility] CNPNon 04-04-2025 CNPN Normal [facility] Anion gap in Serum or Plasma Ordered By: Bertha Carr on 03-30-2025 Anion gap [Moles/Vol] 12 mmol/L 11-18 [facility] BUN/creatinine ratioOrdered By: Bertha Carr on 03-30-2025 Urea nitrogen/Creatinine [Mass ratio] 6.2 mg/mg Low 04-25 [facility] Bilirubin, totalOrdered By: Bertha Carr on 03-30-2025 Bilirubin [Mass/Vol] 0.31 mg/dL 0.00-1.30 [facility] Carbon dioxide, total [Moles /volume] in Central venous bloodOrdered By: Bertha Carr on 03-30-2025 CO2 [Moles/Vol] 24.5 mmol/L 21.0-32.0 [facility] Chloride assayOrdered By: Boom martinsramón Bruno on 03-30-2025 Chloride [Moles/Vol] 102 mmol/L 98-108 [facility] Comprehensive Metabolic Prof ilon 03-30-2025 Albumin [Mass/Vol] 4.6 g/dL Normal 3.5-5.0 [facility] Comment on above: Performed By: #### L 3400.3800, [id number] #### [facility] [address] [place], [address] Albumin/Globulin [Mass ratio] 2.2 {ratio} Normal 0.9-2.4 [facility] Comment on above: Performed By: #### L 3400.3800, [id number] #### [facility] [address] [place], [address] ALK PHOS 38 U/L Normal 35-104 [facility] Comment on above: Performed By: #### L 3400.3800, [id number] #### [facility] [address] [place], [address] ALT [Catalytic activity/Vol] 21 U/L Normal <=34 [facility] Comment on above: Performed By: #### L 3400.3800, [id number] #### [facility] [address] [place], [address] AST [Catalytic activity/Vol] 22 U/L Normal <=31 [facility] Comment on above: Performed By: #### L 3400.3800, [id number] #### [facility] [address] [place], [address] Bilirubin [Mass/Vol] 0.31 mg/dL Normal 0.00-1.30 [facility] Comment on above: Performed By: #### L 3400.3800, [id number] #### [facility] [address] [place], [address] BUN/CRE 6.2 RATIO Low 10-20 [facility] Comment on above: Performed By: #### L 3400.3800, [id number] #### [facility] [address] [place], [address] Calcium [Mass/Vol] 9.4 mg/dL Normal 7.6-11.0 [facility] Comment on above: Performed By: #### L 3400.3800, [id number] #### [facility] [address] [place], [address] Chloride [Moles/Vol] 102 mmol/L Normal 98-108 [facility] Comment on above: Performed By: #### L 3400.3800, [id number] #### [facility] [address] [place], [address] CO2 [Moles/Vol] 24.5 mmol/L Normal 21.0-32.0 [facility] Comment on above: Performed By: #### L 3400.3800, [id number] #### [facility] [address] [place], [address] Creatinine [Mass/Vol] 0.83 mg/dL Normal 0.70-1.20 [facility] Comment on above: Performed By: #### L 3400.3800, [id number] #### [facility] [address] [place], [address] GAP 12 Normal 5-15 [facility] Comment on above: Performed By: #### L 3400.3800, [id number] #### [facility] [address] [place], [address] GFR/1.73 sq M.predicted among non-blacks MDRD (S/P/Bld) [Vol rate/Area] 102 mL/min/{1.73_m2} Normal >60 [facility] Comment on above: Result Comment: mL/m in/1.73m2 CKD-EPI Creatinine Equation (2020) Performed By: #### L 3400.3800, [id number] #### [facility] [address] [place], [address] Globulin (S) [Mass/Vol] 2.1 g/dL Low 2.2-4.[address] [facility] Comment on above: Performed By: #### L 3400.3800, [id number] #### [facility] [address] [place], [address] Glucose [Mass/Vol] 91 mg/dL Normal 70-99 [facility] Comment on above: Performed By: #### L 3400.3800, [id number] #### [facility] [address] [place], [address] Potassium [Moles/Vol] 3.7 mmol/L Normal 3.3-5.1 [facility] Comment on above: Performed By: #### L 3400.3800, [id number] #### [facility] [address] [place], [address] Sodium [Moles/Vol] 138 mmol/L Normal 133-145 [facility] Comment on above: Performed By: #### L 3400.3800, [id number] #### [facility] [address] [place], [address] T PROT 6.8 g/dL Normal 5.9-8.4 [facility] Comment on above: Performed By: #### L 3400.3800, [id number] #### [facility] [address] [place], [place], [address] Urea nitrogen [Mass/Vol] 5 mg/dL Normal 4-19 [facility] Comment on above: Performed By: #### L 3400.3800, [id number] #### [facility] [address] [place], [place], [id number] Glomerular filtration rate ( GFR) estimation/1.73 sq m using serum, plasma, or whole bOrdered By: Bertha Carr on 03-30-2025 GFR/1.73 sq M.predicted among non-blacks MDRD (S/P/Bld) [Vol rate/Area] 102 mL/min/{1.73_m2} >60 [facility] Comment on above: mL/min/1.73m2 CKD-EP I Creatinine Equation (2020) Laboratory - Chemistry and C hemistry - challengeOrdered By: Bertha Carr on 03-30-2025 AST [Catalytic activity/Vol] 22 U/L <32 [facility] Magnesiumon 03-30-2025 Magnesium [Mass/Vol] 2.0 mg/dL Normal 1.5-2.2 [facility] Comment on above: Performed By: #### L 3400.3800, [id number] #### [facility] [address] [place], [place], [address] Magnesium measurement (mass/ volume)Ordered By: Bertha Carr on 03-30-2025 Magnesium (Unsp spec) [Mass/Vol] 2.0 mg/dL 1.5-2.2 [facility] Potassium measurement (mass/ volume)Ordered By: Bertha Carr on 03-30-2025 Potassium (Unsp spec) [Mass/Vol] 3.7 mmol/L 3.3-5.1 [facility] Serum creatinine measurement (mass/volume)Ordered By: Bertha Carr on 03-30-2025 Creatinine [Mass/Vol] 0.83 mg/dL 0.70-1.20 [facility] Serum globulin measurementOr dered By: Bertha Carr on 03-30-2025 Globulin (S) [Mass/Vol] 2.1 g/dL Low 2.2-4.2 [facility] Serum glucose measurement (m ass/volume)Ordered By: Bertha Carr on 03-30-2025 Glucose [Mass/Vol] 91 mg/dL 70-99 [facility] Serum or plasma alanine zayas otransferase (ALT) measurementOrdered By: Bertha Carr on 03-30-2025 ALT [Catalytic activity/Vol] 21 U/L <35 [facility] Serum or plasma albumin sriram urement (mass/volume)Ordered By: Bertha Carr on 03-30-2025 Albumin [Mass/Vol] 4.6 g/dL 3.5-5.0 [facility] Serum or plasma albumin/glob ulin mass ratioOrdered By: Bertha Carr on 03-30-2025 Albumin/Globulin [Mass ratio] 2.2 {ratio} 0.9-2.4 [facility] Serum or plasma alkaline antonio sphatase measurementOrdered By: Bertha Carr on 03-30-2025 ALP [Catalytic activity/Vol] 38 U/L 35-104 [facility] Serum or plasma calcium sriram urement (mass/volume)Ordered By: Bertha Carr on 03-30-2025 Calcium [Mass/Vol] 9.4 mg/dL 7.6-11.0 [facility] Serum or plasma urea nitroge n measurement (mass/volume)Ordered By: Bertha Carr on 03-30-2025 Urea nitrogen [Mass/Vol] 5 mg/dL 4-19 [facility] Sodium levelOrdered By: Julissa Carr on 03-30-2025 Sodium [Moles/Vol] 138 mmol/L 133-145 [facility] Total proteinOrdered By: Meri Carr on 03-30-2025 Protein [Mass/Vol] 6.8 g/dL 5.9-8.4 [facility] ANES POSTPROC EVALon 025 ANES POSTPROC EVAL HNO ID: [id number] Author: ADAM HYATT MD Service: Anesthesiology Author Type: Anesthesiologist Type: Anesthesia Postprocedure Evaluation Filed: 03/23/2025 10:24 Note Text: POST ANESTHESIA EVALUATION NOTE : 2000 Procedure Summary Date: 03/23/25 Room / Location: [facility] Anesthesia Start: 732 Anesthesia Stop: 820 Procedure: EGD - THERAPEUTIC, EUS, OR TUBE INTERVENTIONS Diagnosis: Gastroparesis (Established gastroparesis) Scheduled Providers: Anderson Barker DO Responsible Provider: Adam Hyatt MD Anesthesia Type: general ASA Status: 3 Anesthesia Type: general Airway Type: ETT Last Vitals Vitals Value Taken Time BP 110/71 03/23/25 09:40 Temp 36.4 ?C (97.5 ?F) 03/23/25 08:19 Pulse 69 03/23/25 09:43 Resp 19 03/23/25 09:43 SpO2 98 % 03/23/25 09:43 Vitals shown include unfiled device data. Post Anesthesia Patient Status Patient Evaluation: PACU. PACU/ICU Patient Condition: stable. Anticipated Disposition: phase 2 then home. Neurological Status: aware and responsive. Pulmonary Status: breathing comfortably on room air Airway Control: returned to baseline unsupported. Cardiovascular Status: stable. Pain Management: clinically adequate Postoperative Hydration: acceptable. Intraoperative Events: no significant anesthesia events Post Operative Nausea/Vomiting Status: no significant post operative nausea or vomiting Recommendation: continue current plan of care. Anesthesia Observations No Documentation SIGNATURE: Adam Hyatt MD PATIENT NAME: Mikayla Bertrand DATE: March 23, 2025 TIME: 10:24 AM CSN: [id number] [facility] ANES PRE-OPon 03-23-2025 ANES PRE-OP HNO ID: [id number] Author: ADAM HYATT MD Service: Anesthesiology Author Type: Anesthesiologist Type: Anesthesia Preprocedure Evaluation Filed: 03/23/2025 07:22 Note Text: ANESTHESIOLOGY DAY OF SURGERY NOTE : 2000 Procedure Information Date/Time: 03/23/25 0730 Scheduled providers: Anderson Barker DO Procedure: EGD - THERAPEUTIC, EUS, OR TUBE INTERVENTIONS Location: [facility] Estimated body mass index is 23.56 kg/m? as calculated from the following: Height as of 03/15/25: 157.5 cm (5' 2). Weight as of 03/15/25: 58.4 kg (128 lb 12.8 oz). Most recent hematocrit and potassium results: Hematocrit 41.4 03/02/2025 Potassium 4.2 01/10/2025 Relevant Problems ANESTHESIA (+) Delayed emergence from anesthesia (+) PONV (postoperative nausea and vomiting) CARDIO (+) Liver hemangioma GI (+) GERD (gastroesophageal reflux disease) -RENAL (+) Liver hemangioma I - PHYSICAL EVALUATION AIRWAY Patient intubated: No. Tracheostomy tube not present Mallampati: I. TM distance: >3 FB. Neck ROM: full ROM without neurological symptoms. Mouth openin FB. Short neck: no. Thick neck: no Ng present: no Microretrognathia/Micro nagthia/Recessed Chin: No DENTAL Dental findings: teeth intact. Additional exam findings: yes. Other findings: only agent for PONV is ondansetron . II - ANESTHESIA PLAN ASA Score: 3 Anesthetic Plan: general Airway type: ETT The patient is not a current smoker. NPO Status: adequate Anesthetic plan additional comments: RSI , gastroparesis . Monitoring Plan Monitoring plan: standard ASA. Post Procedure Analgesic Plan Postoperative analgesic plan: parenteral or oral opioids. Informed Consent Anesthetic risks, benefits, alternatives, personnel and consent discussed: yes. Patient / Responsible Constitution Party agrees to proceed: yes Patient / Surrogate agrees to blood products: Yes Significant changes in the patient condition since the History and Physical, not otherwise documented in primary service progress note: no. Potential Anesthesia issues that may suggest increased risk of complications or contraindication to planned procedure: other. Vitals Value Taken Time BP 113/78 03/23/25 06:55 Pulse 85 03/23/25 06:55 Resp 16 03/23/25 06:55 Temp 36.5 ?C (97.7 ?F) 03/23/25 06:55 SpO2 99 % 03/23/25 06:55 Outpatient Medications as of 03/23/2025 Medication Sig hydrOXYchloroQUINE (PLAQUENIL) 200 mg tablet Take 1 tablet by mouth once daily. berotralstat 110 mg cap Take 110 mg by mouth once daily. propranolol ER (INDERAL LA) 60 mg 24 hr capsule Take 1 capsule by mouth once daily. linaCLOtide (LINZESS) 290 mcg capsule Take 1 capsule by mouth daily at 6 am. Take capsule on an empty stomach at least 30 minutes before a meal at the same time each day. Capsule should be swallowed whole. DO NOT chew or crush. potassium chloride SR (MICRO-K) 10 mEq CR capsule Take 10 mEq by mouth. methylphenidate ER (CONCERTA) 18 mg biphasic tablet Take 1 tablet by mouth every morning for 30 days. lidocaine visc 2% MAALOX 200-200-20 mg/5 mL oral liquid 1:1:6 (CPD) Take 10 mL by mouth three times a day as needed (Chest/throat burning, epigastric pain) for up to 14 days. sucralfate (CARAFATE) 1 gram tablet Take 1 tablet by mouth two times a day. Start taking medication after procedure for [address] (PROTONIX) 40 mg tablet Take 1 tablet by mouth two times a day. Start taking medication after procedure for 4 weeks. icatibant (FIRAZYR) 30 mg/3 mL injection Inject 3 mL subcutaneously three times a day as needed (for acute swelling episodes). MULTIVITAMIN ORAL Take 1 tablet by mouth once daily. Facility-Administered Medications as of 03/23/2025 Medication Dose Route Frequency metroNIDAZOLE iv piggyback 500 mg in NaCl (iso-osmotic) 100 mL (FLAGYL) 500 mg INTRAVENOUS ONCE lidocaine 10 mg/mL (1 %) 1-2 mg injection (XYLOCAINE) 0.1-0.2 mL INTRADERMAL PRN lactated ringers iv infusion 30 mL/hr INTRAVENOUS CONTINUOUS ciprofloxacin iv piggyback 400 mg in D5W 200 mL (CIPRO) 400 mg INTRAVENOUS Pre-Op Once ondansetron (PF) 4 mg injection (ZOFRAN) 4 mg INTRAVENOUS ONCE I have interviewed and examined the patient. I have reviewed the medical record and/or the pre-anesthesia evaluation, pertinent labs, and test results. This contains updated information obtained within 48 hours of Surgery/Procedure. SIGNATURE: Adam Hyatt MD PATIENT NAME: Mikayla Bertrand DATE: March 23, 2025 TIME: 7:14 AM CSN: [id number] [facility] 03-23-2025 [facility] Upper GI endoscopyon [address] [facility] Gastrointestinal Endoscopy Patient Name: Mikayla Bertrand Procedure Date: 03/23/2025 7:03 AM Date of : 2000 Admit Type: Outpatient Age: 24 Room: [place] [address] Gender: Female Note Status: Finalized Attending MD: Anderson Barker MD, [id number] Procedure: Upper GI endoscopy Indications: Gastroparesis, For therapy of gastroparesis Providers: Anderson Barker MD Patient Profile: Refer to note in patient chart for documentation of history and physical. This is a 24 year old female. Patient has symptoms of chronic dyspepsia. Referring Physician: Anderson Barker MD (Referring MD) Medicines: General Anesthesia Complications: No immediate complications. Estimated blood loss: Minimal. Requesting Provider: Procedure: Pre-Anesthesia Assessment: - Prior to the procedure, a History and Physical was performed, and patient medications and allergies were reviewed. The patient is competent. The risks and benefits of the procedure and the sedation options and risks were discussed with the patient. All questions were answered and informed consent was obtained. Patient identification and proposed procedure were verified by the physician, the nurse and the vascular tech in the pre-procedure area in the endoscopy suite. Mental Status Examination: alert and oriented. Airway Examination: normal oropharyngeal airway and neck mobility. Respiratory Examination: clear to auscultation. CV Examination: normal. Prophylactic Antibiotics: The patient requires prophylactic antibiotics Submucosal Dissection. Prior Anticoagulants: The patient has taken no anticoagulant or antiplatelet agents. ASA Grade Assessment: II - A patient with mild systemic disease. After reviewing the risks and benefits, the patient was deemed in satisfactory condition to undergo the procedure. The anesthesia plan was to use general anesthesia. Immediately prior to administration of medications, the patient was re-assessed for adequacy to receive sedatives. The heart rate, respiratory rate, oxygen saturations, blood pressure, adequacy of pulmonary ventilation, and response to care were monitored throughout the procedure. The physical status of the patient was re-assessed after the procedure. After obtaining informed consent, the endoscope was passed under direct vision. Throughout the procedure, the patient's blood pressure, pulse, and oxygen saturations were monitored continuously. The Endoscope was introduced through the mouth, and advanced to the second part of duodenum. The upper GI endoscopy was accomplished without difficulty. The patient tolerated the procedure well. Moderate Sedation: Patient underwent intubation and general anesthesia. No sedation was administered for this procedure. Total Procedure Duration: 0 hours 19 minutes 3 seconds Findings: The oropharynx was normal. The examined esophagus was normal. Suspect gastroparesis due to patient symptoms. Following the diagnostic portion of the EGD, the endoscope was prepared using a clear cap. The scope was re-advanced into the stomach and a sutable location for pyloromyotomy was utilited on the lesser-curavature of the stomach 3-4cm superior from the pyloric opening. The site was injected with 8mL of saline and methylene blue mixture and a mucosal bleb was raised. A 2.0cm transverse mucosotomy was made with TT knife. The submucosal dissection was carried out using TT knife until the pylorus was identified. Any small vessels within the submucosal tunnel were cauterized. The pyloric muscle was then systematically divided using TT knife electrocautery until the duodenal submucosa was observed. The pylorus was completely divided and there was no evidence of full thickness injury. There was also no evidence of injury to the duodenal mucosa. The tunnel was irrigated and hemostasis was completed. Mucosotomy was closed with 4 clips, spaced 5mm apart. The patient tolerated the procedure well. The examined duodenum was normal. The exam was otherwise without abnormality. Impression: - Normal oropharynx. - Normal esophagus. - Gastroparesis, idiopathic etiology. - GPOEM procedure performed via Double Myotomy technique (11 and 1 O'clock positions), with significant widening and relaxation of pyloric opening. - Normal examined duodenum. - The examination was otherwise normal. - No specimens collected. Recommendation: - Patient has a contact number available for emergencies. The signs and symptoms of potential delayed complications were discussed with the patient. Return to normal activities tomorrow. Written discharge instructions were provided to the patient. - - Discharge patient to home (ambulatory). - Clear liquid diet today - Full liquid diet for 2 weeks. - Continue present medications. - Use a proton pump inhibitor PO BID for 4 weeks. - Use sucralfate (more content not included)... Normal [facility] CNTHERAPYon 03-21-2025 CNTHERAPY Normal [facility] HISTORY PHYSICALon HISTORY PHYSICAL Normal [facility] - Serology - non- microOrdered By: Page Quiles on 03-15-2025 Parietal cell Ab Ql (S) Positive Abnormal Negative [facility] Comment on above: Anti-parietal cell a ntibody test is used as an aid in diagnosis of autoimmune gastritis. Clinical correlation is required. Parietal cell Ab Ql (S)Order ed By: Page Quiles on 03-15-2025 Gastric Parietal Cell IgG Quantitative 113.7 High NINF [facility] Interpretation and review of laboratory results Abnormal [facility] ALGN LATEX IGEon 03-09-2025 Latex IgE Qn (S) <0.35 Normal <0.35 [facility] Comment on above: Order Comment: Speci jacky Type: BLOOD SPECIMENOrdering Facility: [facility] Address: [address] [place] [address] Performed By: #### L ATEXA ####[facility] [id number] [place] [address] [place] Latex IgE RAST class (S) Normal [facility] Comment on above: Order Comment: Lou rico Type: BLOOD SPECIMENOrdering Facility: [facility] Address: [address] [place] [address] Result Comment: Teo rgen class is no longer reported Performed By: #### L ATEXA ####[facility] [id number] [place] [address] [place] ANTI-SP100 AND ANTI-GP210 AN TIBODIES, IGGon 03-09-2025 ANTI-GP210 ANTIBODY, IGG 2.0 Units Normal 0.0-24.9 [facility] Comment on above: Order Comment: Lou rico Type: BLOOD SPECIMENOrdering Facility: [facility] Address: [address] [place] [address] Result Comment: REFE RENCE INTERVAL: Anti-gp210 Antibody, IgG 20.0 Units or less........Negative 20.1-24.9 Units...........Equivocal 25.0 Units or greater.....[id number] IgG antibodies can be detected in patients with primarybiliary cholangitis (PBC) and may be of diagnostic relevance in asubset of patients with PBC who are negative foranti-mitochondrial antibodies (AMA). These antibodies have arelatively low sensitivity with excellent specificity for PBC. Anegative result does not rule out PBC.Performed By: [address] [address]Vckxixevzv Director: Marcus Rosado MD, PhDCLIA Number: [id number] Performed By: #### A NSPGP ####[facility] [id number] [place] [address] ANTI-SP100 ANTIBODY, IGG 1.0 Units Normal 0.0-24.9 [facility] Comment on above: Order Comment: Speci men Type: BLOOD SPECIMENOrdering Facility: [facility] Address: [address] [place] [address] Result Comment: REFE RENCE INTERVAL: Anti-sp100 Antibody, IgG 20.0 Units or less........Negative 20.1-24.9 Units...........Equivocal 25.0 Units or greater.....[id number] IgG antibodies can be detected in patients with primarybiliary cholangitis (PBC) and may be of diagnostic relevance in asubset of patients with PBC who are negative foranti-mitochondrial antibodies (AMA). These antibodies have arelatively low sensitivity with excellent specificity for PBC. Anegative result does not rule out PBC. Performed By: #### A NSPGP ####[facility] [id number] [place] [address] CNOVon 03-09-2025 CNOV Normal [facility] HEPATITIS A ANTIBODY, IGGon 03-09-2025 HAV IgG Ql (S) Positive [facility] Comment on above: This result suggests recent or past exposure to hepatitis A virus or hepatitis A vaccination. Clinical correlation required. [facility] HAV IgG Ql (S) Positive Normal [facility] Comment on above: Order Comment: Speci men Type: BLOOD SPECIMENOrdering Facility: [facility] Address: [address] [place] [address] Result Comment: This result suggests recent or past exposure to hepatitis A virus or hepatitis A vaccination. Clinical correlation required. Performed By: #### A HAVG ####[facility] LABCLIA [id number] [address] [address] [place] Mitochondria Ab IF Ql (S)on 03-09-2025 Mitochondria M2 Ab IA Qn (S) 5.3 Units Normal <=20.0 [facility] Comment on above: Order Comment: Speci men Type: BLOOD SPECIMENOrdering Facility: [facility] Address: [address] [place] [address] Performed By: #### 1 7284-1, 35482-4, 67565-8 ####[facility] [id number] [address] Mitochondria M2 Ab Ql (S) Negative Normal Negative [facility] Comment on above: Order Comment: Speci men Type: BLOOD SPECIMENOrdering Facility: [facility] Address: [address] [place] [address] Result Comment: Anti -mitochondrial antibody test is used as an aid in diagnosis of primary biliary cholangitis. Clinical correlation is required. Performed By: #### 1 7284-1, 62450-6, 96864-5 ####[facility] [id number] [address] STATES OF [facility] [employer] Ab Ser Qlon 03-09-2025 Parietal cell Ab Ql (S) Positive Abnormal Negative [facility] Comment on above: Order Comment: Speci men Type: BLOOD SPECIMENOrdering Facility: [facility] Address: [address] [place] [address] Result Comment: Anti -parietal cell antibody test is used as an aid in diagnosis of autoimmune gastritis. Clinical correlation is required. Performed By: #### 1 7284-1, 28184-4, 97562-3 ####[facility] LABIA [id number] [place] [id number] [facility] Parietal cell Ab Ql (S)on GASTRIC PARIETAL CELL IGG QUANTITATIVE 113.7 Units High <=20.0 [facility] Comment on above: Order Comment: Speci men Type: BLOOD SPECIMENOrdering Facility: [facility] Address: [address] [place] [address] Performed By: #### 1 7284-1, 57791-5, 92611-0 ####[facility] LABCLIA [id number] [place] [id number] [place] Smooth muscle Ab Ql (S)on ACTIN SMOOTH MUSCLE IGG QUALITATIVE Negative Normal Negative [facility] Comment on above: Order Comment: Speci men Type: BLOOD SPECIMENOrdering Facility: [facility] Address: [address] [place] [address] Performed By: #### 1 7284-1, 51503-0, 74786-3 ####[facility] LABCLIA [id number] [place] [address] [place] ACTIN SMOOTH MUSCLE IGG QUANTITATIVE 7 Units Normal <20 [facility] Comment on above: Order Comment: Speci men Type: BLOOD SPECIMENOrdering Facility: [facility] Address: [address] [place] [address] Performed By: #### 1 7284-1, 15600-1, 71971-4 ####[facility] LABCLIA [id number] [place] [address] [place] CNPNon 03-04-2025 CNPN Normal [facility] Genital Culture Comprehensiv ora 03-04-2025 VAC Reason for Exam: vaginal discharge No yeast, Gardnerella or Neisseria isolated. Genital Culture Comprehensive Streptococcus agalactiae (B) Amount Growth 3+ GNR lactose cement car dumper GNR lactose cement car dumper Streptococcus agalactiae (B): REACTION Ampicillin Islt CECIL <=0.25 S cefTRIAXone Islt CECIL <=0.12 Clindamycin Islt CECIL >=1 R Clindamycin.induced Susc Islt NEG Linezolid Islt CECIL <=2 S Vancomycin Islt CECIL 0.5 S Normal [facility] Comment on above: Performed By: #### L 3300.6750 #### [facility] [address] [place], [address] ALGN RESP DISEASE PROF REG 5 on 03-02-2025 A. alternata IgE Qn (S) <0.35 Normal <0.35 [facility] Comment on above: Order Comment: Speci men Type: BLOOD SPECIMENOrdering Facility: [facility] Address: [address] [place] [address] Performed By: #### L [id number] ####[facility] LABCLIA [id number] [place] [address] [place] A. alternata IgE RAST class (S) Normal [facility] Comment on above: Order Comment: Speci jacky Type: BLOOD SPECIMENOrdering Facility: [facility] Address: [address] [place] [address] Result Comment: Teo rgen class is no longer reported Performed By: #### L [id number] ####[facility] LABCLIA [id number] [address] [place] A. fumigatus IgE Qn (S) <0.35 Normal <0.35 [facility] Comment on above: Order Comment: Lou rico Type: BLOOD SPECIMENOrdering Facility: [facility] Address: [address] [place] [address] Performed By: #### L [id number] ####[facility] LABIA [id number] [place] [address] [place] A. fumigatus IgE RAST class (S) Normal [facility] Comment on above: Order Comment: Speci men Type: BLOOD SPECIMENOrdering Facility: [facility] Address: [address] [place] [address] Result Comment: Teo rgen class is no longer reported Performed By: #### L [id number] ####[facility] LABCLIA [id number] [place] [address] [place] Grenadian house dust mite IgE Qn (S) <0.35 Normal <0.35 [facility] Comment on above: Order Comment: Speci men Type: BLOOD SPECIMENOrdering Facility: [facility] Address: [address] [place], [place] [id number] Performed By: #### L [id number] ####[facility] LABCLIA [id number] [place] [id number] [place] Grenadian house dust mite IgE RAST class (S) Normal [facility] Comment on above: Order Comment: Speci men Type: BLOOD SPECIMENOrdering Facility: [facility] Address: [address] [place], [place] [address] Result Comment: Teo rgen class is no longer reported Performed By: #### L [id number] ####[facility] LABCLIA [id number] [place] [id number] [place] Bermuda grass IgE Qn (S) <0.35 Normal <0.35 [facility] Comment on above: Order Comment: Speci men Type: BLOOD SPECIMENOrdering Facility: [facility] Address: [address] [place], [place] [address] Performed By: #### L [id number] ####[facility] LABCLIA [id number] [place] [id number] [place] Bermuda grass IgE RAST class (S) Normal [facility] Comment on above: Order Comment: Speci men Type: BLOOD SPECIMENOrdering Facility: [facility] Address: [address] [place], [place] [address] Result Comment: Teo rgen class is no longer reported Performed By: #### L [id number] ####[facility] LABCLIA [id number] [place] [id number] [place] Boxelder IgE Qn (S) <0.35 Normal <0.35 [facility] Comment on above: Order Comment: Speci men Type: BLOOD SPECIMENOrdering Facility: [facility] Address: [address] [place], [place] [address] Performed By: #### L [id number] ####[facility] LABCLIA [id number] [place] [id number] [place] Boxelder IgE RAST class (S) Normal [facility] Comment on above: Order Comment: Speci men Type: BLOOD SPECIMENOrdering Facility: [facility] [facility] Address: [address] [place] [address] Result Comment: Teo rgen class is no longer reported Performed By: #### L [id number] ####[facility] LABCLIA [id number] [place] [id number] [place] C. herbarum IgE Qn (S) <0.35 Normal <0.35 [facility] Comment on above: Order Comment: Speci men Type: BLOOD SPECIMENOrdering Facility: [facility] Address: [address] [place] [address] Performed By: #### L [id number] ####[facility] LABCLIA [id number] [place] [address] [place] C. herbarum IgE RAST class (S) Normal [facility] Comment on above: Order Comment: Speci men Type: BLOOD SPECIMENOrdering Facility: [facility] Address: [address] [place] [address] Result Comment: Teo rgen class is no longer reported Performed By: #### L [id number] ####[facility] LABCLIA [id number] [place] [id number] [place] Cat dander IgE Qn (S) <0.35 Normal <0.35 [facility] Comment on above: Order Comment: Speci men Type: BLOOD SPECIMENOrdering Facility: [facility] Address: [address] [place] [address] Performed By: #### L [id number] ####[facility] LABCLIA [id number] [place] [id number] [place] Cat dander IgE RAST class (S) Normal [facility] Comment on above: Order Comment: Speci men Type: BLOOD SPECIMENOrdering Facility: [facility] Address: [address] [place] [address] Result Comment: Teo rgen class is no longer reported Performed By: #### L [id number] ####[facility] LABCLIA [id number] [address] [place] Cocklebur IgE Qn (S) <0.35 Normal <0.35 [facility] Comment on above: Order Comment: Speci men Type: BLOOD SPECIMENOrdering Facility: [facility] Address: [address] [place] [address] Performed By: #### L [id number] ####[facility] LABCLIA [id number] [address] [place] Cocklebur IgE RAST class (S) Normal [facility] Comment on above: Order Comment: Speci men Type: BLOOD SPECIMENOrdering Facility: [facility] Address: [address] [place] [address] Result Comment: Teo rgen class is no longer reported Performed By: #### L [id number] ####[facility] LABCLIA [id number] [address] [place] Cockroach IgE Qn (S) <0.35 Normal <0.35 [facility] Comment on above: Order Comment: Speci men Type: BLOOD SPECIMENOrdering Facility: [facility] Address: [address] [place] [address] Performed By: #### L [id number] ####[facility] LABCLIA [id number] [address] OF [place] Cockroach IgE RAST class (S) Normal [facility] Comment on above: Order Comment: Speci men Type: BLOOD SPECIMENOrdering Facility: [facility] Address: [address] [place] [address] Result Comment: Teo rgen class is no longer reported Performed By: #### L [id number] ####[facility] LABCLIA [id number] [place] [address] [place] Common Pigweed IgE Qn (S) <0.35 Normal <0.35 [facility] Comment on above: Order Comment: Speci men Type: BLOOD SPECIMENOrdering Facility: [facility] Address: [address] [place] [address] Performed By: #### L [id number] ####[facility] LABCLIA [id number] [place] [address] [place] Common Pigweed IgE RAST class (S) Normal [facility] Comment on above: Order Comment: Speci men Type: BLOOD SPECIMENOrdering Facility: [facility] Address: [address] [place] [address] Result Comment: Teo rgen class is no longer reported Performed By: #### L [id number] ####[facility] LABCLIA [id number] [address] [place] Common Ragweed IgE Qn (S) <0.35 Normal <0.35 [facility] Comment on above: Order Comment: Speci men Type: BLOOD SPECIMENOrdering Facility: [facility] Address: [address] [place] [address] Performed By: #### L [id number] ####[facility] LABCLIA [id number] [place] [address] [place] Common Ragweed IgE RAST class (S) Normal [facility] Comment on above: Order Comment: Speci men Type: BLOOD SPECIMENOrdering Facility: [facility] Address: [address] [place] [address] Result Comment: Teo rgen class is no longer reported Performed By: #### L [id number] ####[facility] LABCLIA [id number] [place] [id number] [place] Pike IgE Qn (S) <0.35 Normal <0.35 [facility] Comment on above: Order Comment: Speci men Type: BLOOD SPECIMENOrdering Facility: [facility] Address: [address] [place] [address] Performed By: #### L [id number] ####[facility] LABCLIA [id number] [place] [id number] [place] Pike IgE RAST class (S) Normal [facility] Comment on above: Order Comment: Speci men Type: BLOOD SPECIMENOrdering Facility: [facility] Address: [address] [place] [address] Result Comment: Teo rgen class is no longer reported Performed By: #### L [id number] ####[facility] LABCLIA [id number] [place] [address] [place] Dog dander IgE Qn (S) <0.35 Normal <0.35 [facility] Comment on above: Order Comment: Speci men Type: BLOOD SPECIMENOrdering Facility: [facility] Address: [address] [place] [address] Performed By: #### L [id number] ####[facility] LABCLIA [id number] [address] [place] Dog dander IgE RAST class (S) Normal [facility] Comment on above: Order Comment: Speci men Type: BLOOD SPECIMENOrdering Facility: [facility] Address: [address] [place] [address] Result Comment: Teo rgen class is no longer reported Performed By: #### L [id number] ####[facility] LABCLIA [id number] [place] [id number] [place] Yemeni plantain IgE Qn (S) <0.35 Normal <0.35 [facility] Comment on above: Order Comment: Speci men Type: BLOOD SPECIMENOrdering Facility: [facility] Address: [address] [place] [address] Performed By: #### L [id number] ####[facility] LABCLIA [id number] [address] [address] [place] Yemeni plantain IgE RAST class (S) Normal [facility] Comment on above: Order Comment: Speci men Type: BLOOD SPECIMENOrdering Facility: [facility] Address: [address] [place] [address] Result Comment: Teo rgen class is no longer reported Performed By: #### L [id number] ####[facility] LABCLIA [id number] [address] [place] [address] [place] house dust mite IgE Qn (S) <0.35 Normal <0.35 [facility] Comment on above: Order Comment: Speci men Type: BLOOD SPECIMENOrdering Facility: [facility] Address: [address] [place] [address] Performed By: #### L [id number] ####[facility] LABCLIA [id number] [place] [address] [place] house dust mite IgE RAST class (S) Normal [facility] Comment on above: Order Comment: Speci men Type: BLOOD SPECIMENOrdering Facility: [facility] Address: [address] [place] [address] Result Comment: Teo rgen class is no longer reported Performed By: #### L [id number] ####[facility] LABCLIA [id number] [address] [place] [address] [place] Goosefoot IgE Qn (S) <0.35 Normal <0.35 [facility] Comment on above: Order Comment: Speci men Type: BLOOD SPECIMENOrdering Facility: [facility] Address: [address] [place] [address] Performed By: #### L [id number] ####[facility] LABCLIA [id number] [place] [id number] [place] Goosefoot IgE RAST class (S) Normal [facility] Comment on above: Order Comment: Speci men Type: BLOOD SPECIMENOrdering Facility: [facility] Address: [address] [place] [address] Result Comment: Teo rgen class is no longer reported Performed By: #### L [id number] ####[facility] LABCLIA [id number] [place] [id number] [place] Yasir grass smut IgE Qn (S) <0.35 Normal <0.35 [facility] Comment on above: Order Comment: Speci men Type: BLOOD SPECIMENOrdering Facility: [facility] Address: [address] [place] [address] Performed By: #### L [id number] ####[facility] LABCLIA [id number] [address] STATES OF [facility] Yasir grass smut IgE RAST class (S) Normal [facility] Comment on above: Order Comment: Speci men Type: BLOOD SPECIMENOrdering Facility: [facility] Address: [address] [place] [address] Result Comment: Teo rgen class is no longer reported Performed By: #### L [id number] ####[facility] LABCLIA [id number] [address] STATES OF [facility] [place]o Plane IgE Qn (S) <0.35 Normal <0.35 [facility] Comment on above: Order Comment: Speci men Type: BLOOD SPECIMENOrdering Facility: [facility] Address: [address] [place] [address] Performed By: #### L [id number] ####[facility] LABCLIA [id number] [address] OF [facility] [place] IgE RAST class (S) Normal [facility] Comment on above: Order Comment: Speci men Type: BLOOD SPECIMENOrdering Facility: [facility] Address: [address] [place] [address] Result Comment: Teo rgen class is no longer reported Performed By: #### L [id number] ####[facility] LABCLIA [id number] [place] [address] [place] Gomez Elder IgE Qn (S) <0.35 Normal <0.35 [facility] Comment on above: Order Comment: Speci men Type: BLOOD SPECIMENOrdering Facility: [facility] Address: [address] [place] [address] Performed By: #### L [id number] ####[facility] LABCLIA [id number] [place] [address] [place] Gomez Elder IgE RAST class (S) Normal [facility] Comment on above: Order Comment: Speci men Type: BLOOD SPECIMENOrdering Facility: [facility] Address: [address] [place] [address] Result Comment: Teo rgen class is no longer reported Performed By: #### L [id number] ####[facility] LABCLIA [id number] [place] [address] [place] Mouse urine proteins IgE Qn (S) <0.35 Normal <0.35 [facility] Comment on above: Order Comment: Speci men Type: BLOOD SPECIMENOrdering Facility: [facility] Address: [address] [place] [address] Performed By: #### L [id number] ####[facility] LABCLIA [id number] [place] [address] [place] Mouse urine proteins IgE RAST class (S) Normal [facility] Comment on above: Order Comment: Speci men Type: BLOOD SPECIMENOrdering Facility: [facility] Address: [address] [place] [address] Result Comment: Teo rgen class is no longer reported Performed By: #### L [id number] ####[facility] LABCLIA [id number] [place] [address] [place] Pecan or Loving Tree IgE Qn (S) <0.35 Normal <0.35 [facility] Comment on above: Order Comment: Speci men Type: BLOOD SPECIMENOrdering Facility: [facility] Address: [address] [place] [address] Performed By: #### L [id number] ####[facility] LABCLIA [id number] [place] [id number] [place] Pecan or Loving Tree IgE RAST class (S) Normal [facility] Comment on above: Order Comment: Speci men Type: BLOOD SPECIMENOrdering Facility: [facility] Address: [address] [place] [address] Result Comment: Teo rgen class is no longer reported Performed By: #### L [id number] ####[facility] LABCLIA [id number] [place] [address] [place] Sheep [place] IgE Qn (S) <0.35 Normal <0.35 [facility] Comment on above: Order Comment: Speci men Type: BLOOD SPECIMENOrdering Facility: [facility] Address: [address] [place] [address] Performed By: #### L [id number] ####[facility] LABCLIA [id number] [place] [id number] [place] Sheep [place] IgE RAST class (S) Normal [facility] Comment on above: Order Comment: Speci men Type: BLOOD SPECIMENOrdering Facility: [facility] Address: [address] [place], [place] [address] Result Comment: Teo rgen class is no longer reported Performed By: #### L [id number] ####[facility] LABCLIA [id number] [place] [id number] [place] Silver Birch IgE Qn (S) <0.35 Normal <0.35 [facility] Comment on above: Order Comment: Speci men Type: BLOOD SPECIMENOrdering Facility: [facility] Address: [address] [place] [address] Performed By: #### L [id number] ####[facility] LABCLIA [id number] [place] [address] [place] Silver Birch IgE RAST class (S) Normal [facility] Comment on above: Order Comment: Speci men Type: BLOOD SPECIMENOrdering Facility: [facility] Address: [address] [place] [address] Result Comment: Teo rgen class is no longer reported Performed By: #### L [id number] ####[facility] LABCLIA [id number] [place] [address] [place] Mauricio IgE Qn (S) <0.35 Normal <0.35 [facility] Comment on above: Order Comment: Speci men Type: BLOOD SPECIMENOrdering Facility: [facility] Address: [address] [place] [address] Performed By: #### L [id number] ####[facility] LABCLIA [id number] [place] [address] [place] Mauricio IgE RAST class (S) Normal [facility] Comment on above: Order Comment: Speci men Type: BLOOD SPECIMENOrdering Facility: [facility] Address: [address] [place] [address] Result Comment: Teo rgen class is no longer reported Performed By: #### L [id number] ####[facility] LABCLIA [id number] [place] [id number] [place] White Sánchez IgE Qn (S) <0.35 Normal <0.35 [facility] Comment on above: Order Comment: Speci men Type: BLOOD SPECIMENOrdering Facility: [facility] Address: [address] [place] [address] Performed By: #### L [id number] ####[facility] LABCLIA [id number] [place] [id number] [place] White Sánchez IgE RAST class (S) Normal [facility] Comment on above: Order Comment: Speci men Type: BLOOD SPECIMENOrdering Facility: [facility] Address: [address] [place] [address] Result Comment: Teo rgen class is no longer reported Performed By: #### L [id number] ####[facility] LABCLIA [id number] [place] [address] [place] White [place]m IgE Qn (S) <0.35 Normal <0.35 [facility] Comment on above: Order Comment: Speci men Type: BLOOD SPECIMENOrdering Facility: [facility] Address: [address] [place] [address] Performed By: #### L [id number] ####[facility] LABCLIA [id number] [address] [place] IgE RAST class (S) Normal [facility] Comment on above: Order Comment: Speci men Type: BLOOD SPECIMENOrdering Facility: [facility] Address: [address] [place] [address] Result Comment: Teo rgen class is no longer reported Performed By: #### L [id number] ####[facility] LABCLIA [id number] [address] [place] White mulberry IgE Qn (S) <0.35 Normal <0.35 [facility] Comment on above: Order Comment: Speci men Type: BLOOD SPECIMENOrdering Facility: [facility] Address: [address] [place], [place] [address] Performed By: #### L [id number] ####[facility] LABCLIA [id number] [place] [id number] [place] White mulberry IgE RAST class (S) Normal [facility] Comment on above: Order Comment: Speci men Type: BLOOD SPECIMENOrdering Facility: [facility] Address: [address] [place] [address] Result Comment: Teo rgen class is no longer reported Performed By: #### L [id number] ####[facility] LABCLIA [id number] [place] [address] [place] IgE Qn (S) <0.35 Normal <0.35 [facility] Comment on above: Order Comment: Speci men Type: BLOOD SPECIMENOrdering Facility: [facility] Address: [address] [place] [address] Performed By: #### L [id number] ####[facility] LABCLIA [id number] [place] [address] [place] IgE RAST class (S) Normal [facility] Comment on above: Order Comment: Speci men Type: BLOOD SPECIMENOrdering Facility: [facility] Address: [address] [place] [address] Result Comment: Teo rgen class is no longer reported Performed By: #### L [id number] ####[facility] LABCLIA [id number] [address] [place] C1Q COMPLEMENT PROTon 2024 C1Q COMPLEMENT PROTEIN 154 ug/mL Normal 109-242 Cl [facility] Comment on above: Order Comment: Speci men Type: BLOOD SPECIMENOrdering Facility: [facility] Address: [address] [place] [address] Result Comment: Perf ormed By: GORDON [id number] [place] [id number] Director: Marcus Rosado MD, PhDCLIA Number: [id number] Performed By: #### C [id number] ####GORDON PictoriousIA [id number] [place] [address] CBC W Auto Differential pane l (Bld)on 03-02-2025 Basophils (Bld) [#/Vol] 10*3/uL Normal <0.11 [facility] Comment on above: Order Comment: Speci men Type: BLOOD SPECIMENOrdering Facility: [facility] Address: [address] [place], [place] [address] Performed By: #### 5 7021-8 ####[facility] MILLWNCLIA [id number] [place] [address] [place] Basophils/100 WBC (Bld) 0.3 % Normal [facility] Comment on above: Order Comment: Speci men Type: BLOOD SPECIMENOrdering Facility: [facility] Address: [address] [place] [address] Performed By: #### 5 7021-8 ####[facility] [id number] [place] [address] [place] Differential cell count method Nom (Bld) Auto Normal [facility] Comment on above: Order Comment: Speci men Type: BLOOD SPECIMENOrdering Facility: [facility] Address: [address] [place] [address] Performed By: #### 5 7021-8 ####[facility] [id number] [place] [address] [place] Eosinophils (Bld) [#/Vol] 10*3/uL Normal <0.46 [facility] Comment on above: Order Comment: Speci men Type: BLOOD SPECIMENOrdering Facility: [facility] Address: [address] [place] [address] Performed By: #### 5 7021-8 ####[facility] [id number] [place] [address] [place] Eosinophils/100 WBC (Bld) 0.1 % Normal [facility] Comment on above: Order Comment: Speci men Type: BLOOD SPECIMENOrdering Facility: [facility] Address: [address] [place] [address] Performed By: #### 5 7021-8 ####[facility] [id number] [place] [address] [place] Erythrocyte distribution width (RBC) [Ratio] 12.5 % Normal 11.5-15.0 [facility] Comment on above: Order Comment: Speci men Type: BLOOD SPECIMENOrdering Facility: [facility] Address: [address] [place] [address] Performed By: #### 5 7021-8 ####[facility] [id number] [place] [address] [place] Hematocrit (Bld) [Volume fraction] 41.4 % Normal 36.0-46.0 [facility] Comment on above: Order Comment: Speci men Type: BLOOD SPECIMENOrdering Facility: [facility] Address: [address] [place] [address] Performed By: #### 5 7021-8 ####[facility] [id number] [place] [address] [place] Hemoglobin (Bld) [Mass/Vol] 14.3 g/dL Normal 11.5-15.5 [facility] Comment on above: Order Comment: Speci men Type: BLOOD SPECIMENOrdering Facility: [facility] Address: [address] [place] [address] Performed By: #### 5 7021-8 ####[facility] [id number] [place] [address] [place] [place] Immature granulocytes (Bld) [#/Vol] 10*3/uL Normal <0.10 [facility] Comment on above: Order Comment: Speci men Type: BLOOD SPECIMENOrdering Facility: [facility] Address: [address] [place] [address] Performed By: #### 5 7021-8 ####[facility] [id number] [place] [address] [place] Immature granulocytes/100 WBC (Bld) 0.3 % Normal [facility] Comment on above: Order Comment: Speci men Type: BLOOD SPECIMENOrdering Facility: [facility] Address: [address] [place] [address] Performed By: #### 5 7021-8 ####[facility] ANGRONIA [id number] [place] [address] [place] Lymphocytes (Bld) [#/Vol] 1.25 10*3/uL Normal 1.00-4.00 [facility] Comment on above: Order Comment: Speci men Type: BLOOD SPECIMENOrdering Facility: [facility] Address: [address] [place] [address] Performed By: #### 5 7021-8 ####[facility] [id number] [place] [address] [place] Lymphocytes/100 WBC (Bld) 17.8 % Normal [facility] Comment on above: Order Comment: Speci men Type: BLOOD SPECIMENOrdering Facility: [facility] Address: [address] [place] [address] Performed By: #### 5 7021-8 ####[facility] [id number] [place] [address] [place] MCH (RBC) [Entitic mass] 30.8 pg Normal 26.0-34.0 [facility] Comment on above: Order Comment: Speci men Type: BLOOD SPECIMENOrdering Facility: [facility] Address: [address] [place] [address] Performed By: #### 5 7021-8 ####[facility] [id number] [place] [address] [place] MCHC (RBC) [Mass/Vol] 34.5 g/dL Normal 30.5-36.0 [facility] Comment on above: Order Comment: Speci men Type: BLOOD SPECIMENOrdering Facility: [facility] Address: [address] [place] [address] Performed By: #### 5 7021-8 ####[facility] ANGWANABELLLIA [id number] [place] [address] [place] MCV (RBC) [Entitic vol] 89.0 fL Normal 80.0-100.0 [facility] Comment on above: Order Comment: Speci men Type: BLOOD SPECIMENOrdering Facility: [facility] Address: [address] [place] [address] Performed By: #### 5 7021-8 ####[facility] [id number] [place] [address] [place] Monocytes (Bld) [#/Vol] 0.51 10*3/uL Normal <0.87 [facility] Comment on above: Order Comment: Speci men Type: BLOOD SPECIMENOrdering Facility: [facility] Address: [address] [place] [address] Performed By: #### 5 7021-8 ####[facility] [id number] [place] [address] [place] Monocytes/100 WBC (Bld) 7.3 % Normal [facility] Comment on above: Order Comment: Speci men Type: BLOOD SPECIMENOrdering Facility: [facility] Address: [address] [place] [address] Performed By: #### 5 7021-8 ####[facility]ENTERLIA [id number] [place] [address] [place] Neutrophils (Bld) [#/Vol] 5.21 10*3/uL Normal 1.45-7.50 [facility] Comment on above: Order Comment: Speci men Type: BLOOD SPECIMENOrdering Facility: [facility] Address: [address] [place] [address] Performed By: #### 5 7021-8 ####[facility]ENTERL[facility] [id number] [place] [address] [place] Neutrophils/100 WBC (Bld) 74.2 % Normal [facility] Comment on above: Order Comment: Speci men Type: BLOOD SPECIMENOrdering Facility: [facility] Address: [address] [place] [address] Performed By: #### 5 7021-8 ####[facility] [id number] [place] [address] [place] Nucleated RBC (Bld) [#/Vol] 10*3/uL Normal <0.01 [facility] Comment on above: Order Comment: Speci men Type: BLOOD SPECIMENOrdering Facility: [facility] Address: [address] [place] [address] Performed By: #### 5 7021-8 ####[facility] [id number] [place] [address] [place] Nucleated RBC/100 WBC (Bld) [Ratio] 0.0 /100 WBC Normal [facility] Comment on above: Order Comment: Speci men Type: BLOOD SPECIMENOrdering Facility: [facility] Address: [address] [place] [address] Performed By: #### 5 7021-8 ####[facility] [id number] [place] [address] [place] Platelet mean volume (Bld) [Entitic vol] 9.3 fL Normal 9.0-12.7 [facility] Comment on above: Order Comment: Speci men Type: BLOOD SPECIMENOrdering Facility: [facility] Address: [address] [place] [address] Performed By: #### 5 7021-8 ####[facility] [id number] [place] [address] [place] Platelets (Bld) [#/Vol] 210 10*3/uL Normal 150-400 [facility] Comment on above: Order Comment: Speci men Type: BLOOD SPECIMENOrdering Facility: [facility] Address: [address] [place] [address] Performed By: #### 5 7021-8 ####[facility] ANGWNCLIA [id number] [place] [address] [place] RBC (Bld) [#/Vol] 4.65 10*6/uL Normal 3.90-5.20 [facility] Comment on above: Order Comment: Speci men Type: BLOOD SPECIMENOrdering Facility: [facility] Address: [address] [place], [place] [address] Performed By: #### 5 7021-8 ####[facility]CL[facility] [id number] [place] [address] [place] WBC (Bld) [#/Vol] 7.02 10*3/uL Normal 3.70-11.00 [facility] Comment on above: Order Comment: Speci men Type: BLOOD SPECIMENOrdering Facility: [facility] Address: [address] [place], [place] [address] Performed By: #### 5 7021-8 ####[facility]CL[facility] [id number] [place] [address] [place] CNTHERAPYon 03-02-2025 CNTHERAPY Normal [facility] THERAPY NTon 03-02-2025 THERAPY NT Normal [facility] Genital cultureOrdered By: Srinivas Sarah on 02-28-2025 Source specific culture Streptococcus agalactiae (B) Abnormal [facility] Gram Stainon 02-28-2025 GS Reason for Exam: vaginal discharge Gram Stain 4+ Gram positive cocci No Gram negative diplococci No White Blood Cells Score = 4 Interpretation: 0-3 Normal, 4-6 Intermediate, 7-10 Positive BV Normal [facility] Comment on above: Performed By: #### L 3300.6750 #### [facility] [address] [place], [address] Gram stainOrdered By: Sobia Sarah on 02-28-2025 Microscopic observation Gram stain Nom (Unsp spec) [facility] Assistant Engineer Office Visit Reporton 02-28-2025 Assistant Engineer Office Visit Report [facility]'[address], [address] [place] [address] OFFICE VISIT Date of Service: 02/28/25 MR#: [id number] Acct: [id number] Name: MIKAYLA BERTRAND Rep #: [id number] : 2000 Provider: MONIQUE Salas ams Age/Sex: 24/F [place] [facility] [place]: Signed Intake Vital Signs 12/22/24 12:20 02/28/25 14:34 02/28/25 14:36 Height 5 ft 2 in 5 ft 2 in 5 ft 2 in Weight: 124 lb BMI 22.6 BP 126/83 H Intake Visit Reasons: culture Equipment Operat0R Required: No Is patient in pain?: No Allergies diphenhydramine (From Benadryl) Allergy (Intermediate, Verified 02/28/25 14:33) Other prochlorperazine (From Compazine) Allergy (Intermediate, Verified 02/28/25 14:33) Other gluten Allergy (Verified 02/28/25 14:33) Upset Stomach latex Allergy (Verified 02/28/25 14:33) Hives midazolam HCl (From Versed) Allergy (Verified 02/28/25 14:33) Other Penicillins Allergy (Verified 02/28/25 14:33) Hives haloperidol (From Haldol) Adverse Reaction (Verified 02/28/25 14:33) agitation Medications ???Medication ???Instructions ???Recorded ???Confirmed ???Type methylphenidate HCl 18 mg 18 mg PO DAILY 05/09/21 02/28/25 H istory tablet,extended release 24 hr (Concerta) propranolol 60 mg capsule,24 60 mg PO DAILY 09/12/23 02/28/25 H istory hr,extended release linaclotide 290 mcg capsule 290 mcg PO QDAY 05/24/24 02/28/25 History (Linzess) famotidine 20 mg tablet 20 mg PO BID 08/13/24 02/28/25 His tory potassium chloride 10 mEq 10 meq PO QDAY 08/13/24 02/28/25 H istory capsule,extended release berotralstat 110 mg capsule 110 mg PO DAILY 11/13/24 02/28/25 History (Orladeyo) hydroxychloroquine 200 mg tablet 200 mg PO DAILY 12/22/24 02/28/25 History (Plaquenil) gabapentin 100 mg capsule 100 mg PO TID 30 days #90 caps 02/28/25 Rx ketorolac 10 mg tablet 10 mg PO Q6H PRN PRN pain #30 tabs 01/28/25 02/28/25 Rx fluconazole 150 mg tablet 150 mg PO Q3D 2 doses #2 tabs 02/0502/28/25 Rx Is last menstrual period known: Yes Last Menstrual Period: 02/13/25 Post menopausal: No Patient : No : No Control Method: salp PFS Medical History Iron deficiency Hereditary angioedema Tortuous colon Autoimmune gastritis Gastroparesis Epilepsy POTS (postural orthostatic tachycardia syndrome) Constipation Elevated transaminase level Narcolepsy GERD (gastroesophageal reflux disease) Headaches, cluster Environmental allergies Surgical History History of bilateral salpingectomy History of foot surgery History of tonsillectomy and adenoidectomy Family History Father Migraine Mother Migraine Other Anxiety Asthma Hypertension Social History household members: spouse housing: house number of children: 0 current occupational status: employed current occupation: [employer] Smoking Status: Never smoker alcohol intake: never substance use type: does not use what type of physical activity do you participate in: walking and weight training frequency: 3-4 times per week duration: 30-45 minutes/day additional social history: - [employer] culture Details: MIKAYLA BERTRAND is a 24 year old who presents for vaginal itching, irritation, discharge x 7 days. having some burning with urination. Tried monistat 3 without success. Female Reproductive History Last Menstrual Period: 02/13/25 Cycle Length: 21-35 Questions: sexually active: Yes, dyspareunia: No and PCB: No History 0 Elective abortions Hx Para Spontaneous abortions Hx # Term Pregnancies Ectopic pregnancies Hx # Pregnancies Multiple births # of living children ROS Const Constitutional: Reports system reviewed and no additional complaints, except as documented Cardio Card: Reports system reviewed and no additional complaints, except as documented Resp Resp: Reports system reviewed and no additional complaints, except as documented GI GI: Reports system reviewed and no additional complaints, except as documented : Reports system reviewed and no additional complaints, except as documented; Denies difficulty voiding, dysuria or urinary frequency Skin Skin/Breast: Reports system reviewed and no additional complaints, except as documented Neuro Neuro: Reports system reviewed and no additional complaints, except as documented Psych Psych: Reports system reviewed and no additional complaints, except as documented Exam Const General: cooperative, healthy appearing, comfortable and no acute distress Resp Effort Inspection: normal res (more content not included)... Normal [facility] Absolute lymphocyte countOrd ered By: Manjujoel Britta on 02-22-2025 Lymphocytes Auto (Unsp spec) [#/Vol] 1.20 10*3/uL 0.83-4.51 [facility] Absolute neutrophil countOrd ered By: Carly Callejas on 02-22-2025 Neutrophils (Bld) [#/Vol] 3.8 10*3/uL 2.0-7.7 [facility] Automated lymphocyte count a s percentage of total leukocytesOrdered By: Carly Callejas on 02-22-2025 Lymphocytes/100 WBC Auto (Unsp spec) 22.6 % 19- [facility] Basophil percentageOrdered B y: Carly Callejas on 02-22-2025 Basophils/100 WBC (Bld) 0.4 % 0-[address] [facility] CBC W/Diff, Automatedon 02-04 Absolute Lymph 1.20 X10 3/uL Normal 0.83-4.51 [facility] Comment on above: Performed By: #### L 503.0106, L100.9950, L100.0100, L503.6030, L506.1001, L501.9520, L506.0400 #### [facility] [address] [place], [place], [id number] Absolute Neut 3.8 X10 3/uL Normal 2.0-7.7 [facility] Comment on above: Performed By: #### L 503.0106, L100.9950, L100.0100, L503.6030, L506.1001, L501.9520, L506.0400 #### [facility] [address] [place], [address] Basophils/100 WBC (Bld) 0.4 % Normal 0-[address] [facility] Comment on above: Performed By: #### L 503.0106, L100.9950, L100.0100, L503.6030, L506.1001, L501.9520, L506.0400 #### [facility] [address] [place], [address] Eosinophils/100 WBC (Bld) 0.0 % Normal 0-5 [facility] Comment on above: Performed By: #### L 503.0106, L100.9950, L100.0100, L503.6030, L506.1001, L501.9520, L506.0400 #### [facility] [address] [place], [address] Erythrocyte distribution width (RBC) [Ratio] 12.9 % Normal 11.6-14.6 [facility] Comment on above: Performed By: #### L 503.0106, L100.9950, L100.0100, L503.6030, L506.1001, L501.9520, L506.0400 #### [facility] [address] [place], [address] Hematocrit (Bld) [Volume fraction] 39.6 % Normal 37-47 [facility] Comment on above: Performed By: #### L 503.0106, L100.9950, L100.0100, L503.6030, L506.1001, L501.9520, L506.0400 #### [facility] [address] [place], [address] Hemoglobin (Bld) [Mass/Vol] 13.3 g/dL Normal 12.0-15.0 [facility] Comment on above: Performed By: #### L 503.0106, L100.9950, L100.0100, L503.6030, L506.1001, L501.9520, L506.0400 #### [facility] [address] [place], [address] IG% 0.000 Normal 0.0-0.9 [facility] Comment on above: Result Comment: IG% - Immature Granulocytes (promyelocytes, myelocytes and metamyelocytes) > 1% indicates that a LEFT SHIFT is Present. Performed By: #### L 503.0106, L100.9950, L100.0100, L503.6030, L506.1001, L501.9520, L506.0400 #### [facility] [address] [place], [address] Lymphocytes/100 WBC (Bld) 22.6 % Normal 19-41 [facility] Comment on above: Performed By: #### L 503.0106, L100.9950, L100.0100, L503.6030, L506.1001, L501.9520, L506.0400 #### [facility] [address] [place], [address] MCH (RBC) [Entitic mass] 29.9 pg Normal 27.0-32.0 [facility] Comment on above: Performed By: #### L 503.0106, L100.9950, L100.0100, L503.6030, L506.1001, L501.9520, L506.0400 #### [facility] [address] [place], [address] MCHC (RBC) [Mass/Vol] 33.6 g/dL Normal 32-36 [facility] Comment on above: Performed By: #### L 503.0106, L100.9950, L100.0100, L503.6030, L506.1001, L501.9520, L506.0400 #### [facility] [address] [place], [address] MCV (RBC) [Entitic vol] 89.0 fL Normal 81-[address] [facility] Comment on above: Performed By: #### L 503.0106, L100.9950, L100.0100, L503.6030, L506.1001, L501.9520, L506.0400 #### [facility] [address] [place], [address] Monocytes/100 WBC (Bld) 5.3 % Normal 0-[address] [facility] Comment on above: Performed By: #### L 503.0106, L100.9950, L100.0100, L503.6030, L506.1001, L501.9520, L506.0400 #### [facility] [address] [place], [address] Neutrophils/100 WBC (Bld) 71.7 % High 47-70 [facility] Comment on above: Performed By: #### L 503.0106, L100.9950, L100.0100, L503.6030, L506.1001, L501.9520, L506.0400 #### [facility] [address] [place], [address] Nucleated RBC (Bld) [#/Vol] 0 10*3/uL Normal 0-5 [facility] Comment on above: Performed By: #### L 503.0106, L100.9950, L100.0100, L503.6030, L506.1001, L501.9520, L506.0400 #### [facility] [address] [place], [address] Platelet mean volume (Bld) [Entitic vol] 9.7 fL Normal 6.2-12.0 [facility] Comment on above: Performed By: #### L 503.0106, L100.9950, L100.0100, L503.6030, L506.1001, L501.9520, L506.0400 #### [facility] [address] [place], [address] Platelets (Bld) [#/Vol] 168 10*3/uL Normal 150-450 [facility] Comment on above: Performed By: #### L 503.0106, L100.9950, L100.0100, L503.6030, L506.1001, L501.9520, L506.0400 #### [facility] [address] [place], [address] RBC (Bld) [#/Vol] 4.45 10*6/uL Normal 4.2-5.4 [facility] Comment on above: Performed By: #### L 503.0106, L100.9950, L100.0100, L503.6030, L506.1001, L501.9520, L506.0400 #### [facility] [address] [place], [address] RDW SD 42.5 fl Normal 35.1-43.9 [facility] Comment on above: Performed By: #### L 503.0106, L100.9950, L100.0100, L503.6030, L506.1001, L501.9520, L506.0400 #### [facility] [address] [place], [address] WBC (Bld) [#/Vol] 5.3 10*3/uL Normal 4.4-11.0 [facility] Comment on above: Performed By: #### L 503.0106, L100.9950, L100.0100, L503.6030, L506.1001, L501.9520, L506.0400 #### [facility] [address] [place], [place], [id number] Eosinophil percentageOrdered By: Carly Callejas on 02-22-2025 Eosinophils/100 WBC (Bld) 0.0 % 0-5 [facility] Erythrocyte distribution wid th ratioOrdered By: [facility] Britta on 02-22-2025 Erythrocyte distribution width (RBC) [Ratio] 12.9 % 11.6-14.6 [facility] Erythrocyte distribution wid th standard deviationOrdered By: [facility] Hospital[facility]el Britta on 02-22-2025 Erythrocyte distribution width (RBC) [Ratio] 42.5 fl 35.1-43.9 [facility] Hematocrit Auto (Bld) [Volum e fraction]Ordered By: Carly Britta on 02-22-2025 Hematocrit (Bld) [Volume fraction] 39.6 % 37-47 [facility] Hemoglobin measurementOrdere d By: Carly Callejas on 02-22-2025 Hemoglobin (Bld) [Mass/Vol] 13.3 g/dL 12.0-15.0 [facility] Immature granulocytes/100 WB C Auto (Bld)Ordered By: [facility] Britta on 02-22-2025 Immature granulocytes/100 WBC (Bld) 0.000 % 0.0-0.9 [facility] Comment on above: IG% - Immature Granu locytes (promyelocytes, myelocytes and metamyelocytes) > 1% indicates that a LEFT SHIFT is Present. Iron measurement (mass/mass) Ordered By: Carly Britta on 02-22-2025 Iron (Unsp spec) [Mass/Mass] 90 ug/dL 50-170 [facility] Iron+Iron Binding Capacityon 02-22-2025 Iron [Mass/Vol] 90 ug/dL Normal 50-170 [facility] Comment on above: Performed By: #### L 503.0106, L100.9950, L100.0100, L503.6030, L506.1001, L501.9520, L506.0400 #### [facility] [address] [place], [address] IRON SATURATION 30.0 Normal 13-59 [facility] Comment on above: Performed By: #### L 503.0106, L100.9950, L100.0100, L503.6030, L506.1001, L501.9520, L506.0400 #### [facility] [address] [place], [address] TIBC 298 ug/dL Normal 250-450 [facility] Comment on above: Performed By: #### L 503.0106, L100.9950, L100.0100, L503.6030, L506.1001, L501.9520, L506.0400 #### [facility] [address] [place], [address] UIBC 208 ug/dL Low 228-428 [facility] Comment on above: Performed By: #### L 503.0106, L100.9950, L100.0100, L503.6030, L506.1001, L501.9520, L506.0400 #### [facility] [address] [place], [address] MCV (mean corpuscular volume ) determinationOrdered By: Carly Callejas on 02-22-2025 MCV (RBC) [Entitic vol] 89.0 fL 81-[address] [facility] Mean corpuscular hemoglobin (MCH) determinationOrdered By: Carly Callejas on 02-22-2025 MCH (RBC) [Entitic mass] 29.9 pg 27.0-32.0 [facility] Mean corpuscular hemoglobin concentration (MCHC) determinationOrdered By: Carly Callejas on 02-22-2025 MCHC (RBC) [Mass/Vol] 33.6 g/dL 32-36 [facility] Mean platelet volume determi nationOrdered By: Carly Callejas on 02-22-2025 Platelet mean volume (Bld) [Entitic vol] 9.7 fL 6.2-12.0 [facility] Monocyte percentageOrdered B y: Carly Callejas on 02-22-2025 Monocytes/100 WBC (Bld) 5.3 % 0-[address] [facility] Neutrophil percentageOrdered By: Carly Callejas on 02-22-2025 Neutrophils/100 WBC (Bld) 71.7 % High 47-70 [facility] No Panel InformationOrdered By: Carly Callejas on 02-22-2025 Unsaturated Iron Binding Capacity 208 ug/dL Low 228-428 [facility] Nucleated red blood cell per centageOrdered By: Carly Callejas on 02-22-2025 Nucleated RBC/100 WBC (Bld) [Ratio] 0 % 0-5 [facility] Platelet countOrdered By: Jason stella Callejas on 02-22-2025 Platelets (Bld) [#/Vol] 168 10*3/uL 150-450 [facility] RBC Auto (Bld) [#/Vol]Ordere d By: Carly Callejas on 02-22-2025 RBC (Bld) [#/Vol] 4.45 10*6/uL 4.2-5.4 [facility] Retic Panelon 02-22-2025 IM RET FRACTION 2.80 Low 3.00-15.90 [facility] Comment on above: Performed By: #### L 503.0106, L100.9950, L100.0100, L503.6030, L506.1001, L501.9520, L506.0400 #### [facility] [address] [facility] [place], [place], [id number] (526) RET-HE 33.2 pg Normal 30-35 [facility] Comment on above: Performed By: #### L 503.0106, L100.9950, L100.0100, L503.6030, L506.1001, L501.9520, L506.0400 #### [facility] [address] [place], [place], [id number] ([address] Retic Count 0.67 Normal 0.5-1.5 [facility] Comment on above: Performed By: #### L 503.0106, L100.9950, L100.0100, L503.6030, L506.1001, L501.9520, L506.0400 #### [facility] [address] [place], [place], [id number] Reticulocyte hemoglobin equi valent (RET-He) measurementOrdered By: Carly Perezke on 02-22-2025 Hemoglobin (Reticulocytes) [Entitic mass] 33.2 pg 30-35 [facility] Reticulocytes Auto (Bld) [#/ Vol]Ordered By: Carly Perezke on 02-22-2025 Reticulocytes/100 RBC (Bld) 0.67 % 0.5-1.5 [facility] Serum or plasma iron saturat ion measurement (mass fraction)Ordered By: Carly Perezke on 02-22-2025 Iron saturation [Mass fraction] 30.0 % 13-59 [facility] T4 Free Directon 02-22-2025 T4 FREE DIRECT 1.40 ng/dL Normal 0.76-1.46 [facility] Comment on above: Performed By: #### L 503.0106, L100.9950, L100.0100, L503.6030, L506.1001, L501.9520, L506.0400 #### [facility] [facility] [address] [place], [address] T4 freeOrdered By: Carly Perez fer on 02-22-2025 Free T4 [Mass/Vol] 1.40 ng/dL 0.76-1.46 [facility] TSH DL <= 0.005 mIU/L QnOrde red By: Carly Perezke on 02-22-2025 TSH Qn 1.100 uIU/mL 0.300-4.200 [facility] Thyroid Stim Hormone (TSH)on 02-22-2025 TSH 1.100 uIU/mL Normal 0.300-4.200 [facility] Comment on above: Performed By: #### L 503.0106, L100.9950, L100.0100, L503.6030, L506.1001, L501.9520, L506.0400 #### [facility] [address] [place], [address] Vitamin B12on 08-19-2025 Cobalamin (Vitamin B12) [Mass/Vol] 707 pg/mL Normal 180-914 [facility] Comment on above: Performed By: #### L 503.0106, L100.9950, L100.0100, L503.6030, L506.1001, L501.9520, L506.0400 #### [facility] [address] [place], [place], [id number] Vitamin B12 ser/plasOrdered By: Carly Callejas on 02-22-2025 Cobalamin (Vitamin B12) [Mass/Vol] 707 pg/mL 180-914 [facility] Vitamin D,25 Hydroxyon 02-22 Vitamin D 25-OH 33.6 ng/mL Normal 30-100 [facility] Comment on above: Result Comment: Wendy min D Status Deficiency: <20 ng/mL (50nmol/L) Insufficiency: 20-30 ng/mL (50-75 nmol/L) Sufficiency: 30-100 ng/mL (75-250 nmol/L) Toxicity: >100 ng/mL (>250 nmol/L) Performed By: #### L 3400.3800, L503.6030 #### [facility] [address] [facility] [place], [place], [address] White blood cell (WBC) count Ordered By: Carly Callejas on 02-22-2025 WBC (Bld) [#/Vol] 5.3 10*3/uL 4.4-11.0 [facility] CNTHERAPYon 02-16-2025 CNTHERAPY [facility] CNTHERAPYon 02-09-2025 CNTHERAPY Normal [facility] THERAPY NTon 02-09-2025 THERAPY NT Normal [facility] ANES POSTPROC EVALon 025 ANES POSTPROC EVAL HNO ID: [id number] Author: XIMENA ALVARENGA MD Service: Critical Care Author Type: Anesthesiologist Type: Anesthesia Postprocedure Evaluation Filed: 02/02/2025 13:21 Note Text: POST ANESTHESIA EVALUATION NOTE : 2000 Procedure Summary Date: 02/02/25 Room / Location: [facility] Anesthesia Start: 1216 Anesthesia Stop: 1242 Procedure: EGD - THERAPEUTIC, EUS, OR TUBE INTERVENTIONS Diagnosis: Gastroparesis (Established gastroparesis) Scheduled Providers: Anderson Barker DO Responsible Provider: Ximena Alvarenga MD Anesthesia Type: MAC ASA Status: 3 Anesthesia Type: MAC Last Vitals Vitals Value Taken Time BP 108/68 02/02/25 1311 Temp 36.4 ?C (97.5 ?F) 02/02/25 1242 Pulse 67 02/02/25 1310 Resp 25 02/02/25 1310 SpO2 100 % 02/02/25 1310 Post Anesthesia Patient Status Patient Evaluation: PACU. Anticipated Disposition: phase 2 then home. Neurological Status: aware and responsive. Pulmonary Status: breathing comfortably on room air Airway Control: returned to baseline unsupported. Cardiovascular Status: stable. Pain Management: clinically adequate - multimodal analgesia pain management approach Postoperative Hydration: acceptable. Intraoperative Events: no significant anesthesia events Post Operative Nausea/Vomiting Status: no significant post operative nausea or vomiting Recommendation: continue current plan of care and further care per PACU/ICU/floor team. Anesthesia Observations No Documentation SIGNATURE: Ximena Alvarenga MD PATIENT NAME: Mikayla Bertrand DATE: February 02, 2025 TIME: 1:21 PM CSN: [id number] [facility] ANES PRE-OPon 02-02-2025 ANES PRE-OP HNO ID: [id number] Author: XIMENA ALVARENGA MD Service: Critical Care Author Type: Anesthesiologist Type: Anesthesia Preprocedure Evaluation Filed: 02/02/2025 12:08 Note Text: ANESTHESIOLOGY DAY OF SURGERY NOTE : 2000 Procedure Information Date/Time: 02/02/25 1215 Scheduled providers: Andersno Barker DO Procedure: EGD - THERAPEUTIC, EUS, OR TUBE INTERVENTIONS Location: [facility] Estimated body mass index is 22.75 kg/m? as calculated from the following: Height as of 01/26/25: 157.5 cm (5' 2). Weight as of 01/26/25: 56.4 kg (124 lb 6.4 oz). Most recent hematocrit and potassium results: Hematocrit 36.6 01/10/2025 Potassium 4.2 01/10/2025 Relevant Problems ANESTHESIA (+) Delayed emergence from anesthesia (+) PONV (postoperative nausea and vomiting) CARDIO (+) Liver hemangioma GI (+) GERD (gastroesophageal reflux disease) -RENAL (+) Liver hemangioma NEURO-PSYCH (+) Epilepsy (HCC) PULMONARY (+) Mild intermittent asthma without complication (HCC) I - PHYSICAL EVALUATION AIRWAY Patient intubated: No. Tracheostomy tube not present Mallampati: II. TM distance: >3 FB. Neck ROM: full ROM without neurological symptoms. Mouth opening: adequate. Thick neck: no DENTAL Dental findings: teeth intact. Additional exam findings: no II - ANESTHESIA PLAN ASA Score: 3 Anesthetic Plan: MAC The patient is not a current smoker. NPO Status: adequate Beta Alvino Administration of chronic beta alvino medication planned. Monitoring Plan Monitoring plan: standard ASA. Post Procedure Analgesic Plan Postoperative analgesic plan: multimodal analgesia. Informed Consent Anesthetic risks, benefits, alternatives, personnel and consent discussed: yes. Patient / Responsible Constitution Party agrees to proceed: yes Patient / Surrogate agrees to blood products: Yes DNR status not reviewed with patient and/or family prior to surgery. Significant changes in the patient condition since the History and Physical, not otherwise documented in primary service progress note: no. Potential Anesthesia issues that may suggest increased risk of complications or contraindication to planned procedure: none. Discussed the possibility of lip / dental damage: yes Vitals Value Taken Time BP 117/87 02/02/25 1126 Pulse 75 02/02/25 1126 Resp 16 02/02/25 1126 Temp 36.7 ?C (98.1 ?F) 02/02/25 1126 SpO2 100 % 02/02/25 1126 Outpatient Medications as of 02/02/2025 Medication Sig - berotralstat 110 mg cap Take 110 mg by mouth once daily. - propranolol ER (INDERAL LA) 60 mg 24 hr capsule Take 1 capsule by mouth once daily. - linaCLOtide (LINZESS) 290 mcg capsule Take 1 capsule by mouth daily at 6 am. Take capsule on an empty stomach at least 30 minutes before a meal at the same time each day. Capsule should be swallowed whole. DO NOT chew or crush. - hydrOXYchloroQUINE (PLAQUENIL) 200 mg tablet Take 1 tablet by mouth once daily. - famotidine (PEPCID) 20 mg tablet Take 1 tablet by mouth two times a day. - potassium chloride SR (MICRO-K) 10 mEq CR capsule Take 10 mEq by mouth. - methylphenidate ER (CONCERTA) 18 mg biphasic tablet Take 1 tablet by mouth every morning for 30 days. - MULTIVITAMIN ORAL Take 1 tablet by mouth once daily. - predniSONE (DELTASONE) 10 mg tablet Take 3 tablets by mouth once daily for 3 days, THEN 2 tablets once daily for 3 days, THEN 1.5 tablets once daily for 3 days, THEN 1 tablet once daily for 3 days, THEN 0.5 tablets once daily for 3 days. (Patient taking differently: Take 3 tablets by mouth once daily for 3 days, THEN 2 tablets once daily for 3 days, THEN 1.5 tablets once daily for 3 days, THEN 1 tablet once daily for 3 days, THEN 0.5 tablets once daily for 3 days.) - meloxicam (MOBIC) 15 mg tablet Take 1 tablet by mouth once daily. (Patient taking differently: Take 15 mg by mouth once daily as needed for pain.) - icatibant (FIRAZYR) 30 mg/3 mL injection Inject 3 mL subcutaneously three times a day as needed (for acute swelling episodes). Facility-Administered Medications as of 02/02/2025 Medication Dose Route Frequency - lidocaine 10 mg/mL (1 %) 1-2 mg injection (XYLOCAINE) 0.1-0.2 mL INTRADERMAL PRN - lactated ringers iv infusion 30 mL/hr INTRAVENOUS CONTINUOUS I have interviewed and examined the patient. I have reviewed the medical record and/or the pre-anesthesia evaluation, pertinent labs, and test results. This contains updated information obtained within 48 hours of Surgery/Procedure. SIGNATURE: Ximena Alvarenga MD PATIENT NAME: Mikayla Bertrand DATE: February 02, 2025 TIME: 12:03 PM CSN: [id number] [facility] EGD Study observation Summer molina 02-02-2025 [facility] Gastrointestinal Endoscopy Patient Name: Mikayla Bertrand Procedure Date: 02/02/2025 12:10 PM Date of : 2000 Admit Type: Outpatient Age: 24 Room: [place] [address] Gender: Female Note Status: Finalized Attending MD: Anderson Barker MD, [id number] Procedure: Upper GI endoscopy Indications: Gastroparesis, For therapy of gastroparesis Providers: Anderson Barker MD Patient Profile: Refer to note in patient chart for documentation of history and physical. Patient has symptoms of chronic dyspepsia. Referring Physician: Anderson Barker MD (Referring MD) Medicines: Monitored Anesthesia Care Complications: No immediate complications. Estimated blood loss: Minimal. Requesting Provider: Procedure: Pre-Anesthesia Assessment: - Prior to the procedure, a History and Physical was performed, and patient medications and allergies were reviewed. The patient is competent. The risks and benefits of the procedure and the sedation options and risks were discussed with the patient. All questions were answered and informed consent was obtained. Patient identification and proposed procedure were verified by the physician, the nurse and the vascular tech in the pre-procedure area in the endoscopy suite. Mental Status Examination: alert and oriented. Airway Examination: normal oropharyngeal airway and neck mobility. Respiratory Examination: clear to auscultation. CV Examination: normal. Prophylactic Antibiotics: The patient does not require prophylactic antibiotics. Prior Anticoagulants: The patient has taken no anticoagulant or antiplatelet agents. ASA Grade Assessment: II - A patient with mild systemic disease. After reviewing the risks and benefits, the patient was deemed in satisfactory condition to undergo the procedure. The anesthesia plan was to use monitored anesthesia care (MAC). Immediately prior to administration of medications, the patient was re-assessed for adequacy to receive sedatives. The heart rate, respiratory rate, oxygen saturations, blood pressure, adequacy of pulmonary ventilation, and response to care were monitored throughout the procedure. The physical status of the patient was re-assessed after the procedure. After obtaining informed consent, the endoscope was passed under direct vision. Throughout the procedure, the patient's blood pressure, pulse, and oxygen saturations were monitored continuously. The Endoscope was introduced through the mouth, and advanced to the second part of duodenum. The upper GI endoscopy was accomplished without difficulty. The patient tolerated the procedure well. Moderate Sedation: MAC anesthesia was administered by the anesthesia team. No sedation was administered for this procedure. Total Procedure Duration: 0 hours 8 minutes 24 seconds Findings: The oropharynx was normal. The examined esophagus was normal. The Z-line was regular and was found 40 cm from the incisors. The esophagogastric junction was visualized endoscopically. Features include a hiatal axial length of 0 cm, a hiatal diameter of 1 cm and a flap valve present with Dunmor shape. These components were classified as AFS Hiatal Grade 1 (intact) per the AFS Endoscopic Classification of Esophagogastric Junction Integrity. Suspect gastroparesis due to absence of peristalsis and patient symptoms. A TTS dilator was passed through the scope. Dilation with a 97-76-75-20-21 mm x 5.5 cm Merit Elation balloon (to a maximum balloon size of 21 mm) dilator was performed. The dilation site was examined following endoscope reinsertion and showed complete resolution of luminal narrowing. Estimated blood loss: none. The examined duodenum was normal. Impression: - Normal oropharynx. - Normal esophagus. - Z-line regular, 40 cm from the inc (more content not included)... [facility] Radiology Study observation (narrative) Andrew sadler [facility] Upper GI endoscopyon 02-02- [address] [facility] Gastrointestinal Endoscopy Patient Name: Mikayla Bertrand Procedure Date: 02/02/2025 12:10 PM Date of : 2000 Admit Type: Outpatient Age: 24 Room: [place] [address] Gender: Female Note Status: Finalized Attending MD: Anderson Barker MD, [id number] Procedure: Upper GI endoscopy Indications: Gastroparesis, For therapy of gastroparesis Providers: Anderson Barker MD Patient Profile: Refer to note in patient chart for documentation of history and physical. Patient has symptoms of chronic dyspepsia. Referring Physician: Anderson Barker MD (Referring MD) Medicines: Monitored Anesthesia Care Complications: No immediate complications. Estimated blood loss: Minimal. Requesting Provider: Procedure: Pre-Anesthesia Assessment: - Prior to the procedure, a History and Physical was performed, and patient medications and allergies were reviewed. The patient is competent. The risks and benefits of the procedure and the sedation options and risks were discussed with the patient. All questions were answered and informed consent was obtained. Patient identification and proposed procedure were verified by the physician, the nurse and the vascular tech in the pre-procedure area in the endoscopy suite. Mental Status Examination: alert and oriented. Airway Examination: normal oropharyngeal airway and neck mobility. Respiratory Examination: clear to auscultation. CV Examination: normal. Prophylactic Antibiotics: The patient does not require prophylactic antibiotics. Prior Anticoagulants: The patient has taken no anticoagulant or antiplatelet agents. ASA Grade Assessment: II - A patient with mild systemic disease. After reviewing the risks and benefits, the patient was deemed in satisfactory condition to undergo the procedure. The anesthesia plan was to use monitored anesthesia care (MAC). Immediately prior to administration of medications, the patient was re-assessed for adequacy to receive sedatives. The heart rate, respiratory rate, oxygen saturations, blood pressure, adequacy of pulmonary ventilation, and response to care were monitored throughout the procedure. The physical status of the patient was re-assessed after the procedure. After obtaining informed consent, the endoscope was passed under direct vision. Throughout the procedure, the patient's blood pressure, pulse, and oxygen saturations were monitored continuously. The Endoscope was introduced through the mouth, and advanced to the second part of duodenum. The upper GI endoscopy was accomplished without difficulty. The patient tolerated the procedure well. Moderate Sedation: MAC anesthesia was administered by the anesthesia team. No sedation was administered for this procedure. Total Procedure Duration: 0 hours 8 minutes 24 seconds Findings: The oropharynx was normal. The examined esophagus was normal. The Z-line was regular and was found 40 cm from the incisors. The esophagogastric junction was visualized endoscopically. Features include a hiatal axial length of 0 cm, a hiatal diameter of 1 cm and a flap valve present with Dunmor shape. These components were classified as AFS Hiatal Grade 1 (intact) per the AFS Endoscopic Classification of Esophagogastric Junction Integrity. Suspect gastroparesis due to absence of peristalsis and patient symptoms. A TTS dilator was passed through the scope. Dilation with a 54-01-91-20-21 mm x 5.5 cm Merit Elation balloon (to a maximum balloon size of 21 mm) dilator was performed. The dilation site was examined following endoscope reinsertion and showed complete resolution of luminal narrowing. Estimated blood loss: none. The examined duodenum was normal. Impression: - Normal oropharynx. - Normal esophagus. - Z-line regular, 40 cm from the incisors. - Esophagogastric junction classified as AFS Hiatal Grade 1 (intact). No Hiatal Hernia - No gastric bile reflux observed - Gastroparesis, idiopathic etiology. Dilated with a 69-25-53-20-21 mm x 5.5 cm Merit Elation balloon (to a maximum balloon size of 21 mm). Significant widening but no mucosal breaks achieved. - Normal examined duodenum. - No specimens collected. Recommendation: - Patient has a contact number available for emergencies. The signs and symptoms of potential delayed complications were discussed with the patient. Return to normal activities tomorrow. Written discharge instructions were provided to the patient. - Resume previous diet. - Continue present medications. - Observe patient's clinical course. - Return to my office as previously scheduled. Procedure Code(s): --- Professional --- 56194, Esophagogastroduodenosc opy, flexible, transoral; with dilation of gastric/duodenal stricture(s) (eg, balloon, bougie) Diagnosis Code(s): --- Professional --- K31.84, Gastroparesis CPT copyright 2020 [employer] (more content not included)... Normal [facility] NURSING PROGon 02-01-2025 NURSING PROG HNO ID: [id number] Author: AGUSTÍN ARAGON RN Service: ? Author Type: Registered Nurse Type: Nursing Progress Note Filed: 02/01/2025 13:41 Note Text: [facility] ENDOSCOPY PRE PROCEDURE CALL Riccardo. I'm calling from [facility] endoscopy to provide you with the information for your surgery/procedure tomorrow. 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 Yes When anesthesia or sedation is being given: Patient instructed you must have an adult taxi truck driver because you will not be able to work or drive for the rest of the day after your test.Yes Patient instructed to have a responsible, adult taxi truck driver to take them home after the procedure Yes. Due to having sedation, there is no working or driving the day of the procedure. Your taxi truck driver is allowed to wait here with you or they may drop you off and come back to pick you up. Patient instructed: Do not eat anything the morning of the procedure, including gum, hard candy and mints.Yes Patient instructed not bring any valuables, jewelry, or lorenzo and wear comfortable clothing. Do not wear makeup, lotion, or finger mozambican. Yes Patient instructed: Please bring a list of medications including over the counter, vitamin, and herbals. If you are on inhalers, please do them in the morning before your test and bring them with you.Yes Blood pressure, seizure, or thyroid medications may be taken with a couple sips of water ONLY 4 hours prior to arrival time. Is the patient on blood thinners?no If so,verify if pt contacted the prescribing doctor to see how long they may hold blood thinners prior to procedure. Are you diabetic?No If so, advise pt to contact prescribing doctor to verify if any modifications are needed for insulin and/or pills Reminder:diabetic medication instructions should be given by the patient's ordering physician. If blood sugar drops, they can have CLEAR liquids to bring it up until 3 hours prior to arrival time. Hospitalizations: No Procedure and/or bowel prep instructions given to patient and questions answered: Yes, and they verbalized their understanding of instructions given Any barriers to Patient learning (confusion? Equipment Operat0R needed?): Patient/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 Tester responded appropriately on phone. Please complete your Pre-Check In paperwork in My Chart if applicable. If patient needs to reschedule please call: [phone] [facility] [address] phone number: [phone] Type of instruction given: Verbal by telephone contact. Normal [facility] CNTHERAPYon 01-26-2025 CNTHERAPY Normal [facility] HISTORY PHYSICALon HISTORY PHYSICAL Normal [facility] THERAPY NTon 01-26-2025 THERAPY NT Normal [facility] Transferrinon 01-21-2025 Transferrin [Mass/Vol] 243 mg/dL Normal 192-364 [facility] Comment on above: Result Comment: Perf ormed at: CB - [facility] [address] [id number] Press Catcher: Pravin Pandya PhD, Phone: [phone] Performed By: #### L 3409.1320, L527.7169 #### [facility] [address] [place], [address] Absolute lymphocyte countOrd ered By: Bertha Carr on 01-20-2025 Lymphocytes Auto (Unsp spec) [#/Vol] 0.82 10*3/uL Low 0.83-4.51 [facility] Absolute neutrophil countOrd ered By: Bertha Carr on 01-20-2025 Neutrophils (Bld) [#/Vol] 3.1 10*3/uL 2.0-7.7 [facility] Automated lymphocyte count a s percentage of total leukocytesOrdered By: Bertha Carr on 01-20-2025 Lymphocytes/100 WBC Auto (Unsp spec) 19.7 % 19-41 [facility] Basophil percentageOrdered B y: Bertha Carr on 01-20-2025 Basophils/100 WBC (Bld) 0.2 % 0-[address] [facility] CBC W/Diff, Automatedon 01-04 Absolute Lymph 0.82 X10 3/uL Low 0.83-4.51 [facility] Comment on above: Performed By: #### L 3400.3800, L503.6030 #### [facility] [address] [place], [address] Absolute Neut 3.1 X10 3/uL Normal 2.0-7.7 [facility] Comment on above: Performed By: #### L 3400.3800, L503.6030 #### [facility] [address] [place], [address] Basophils/100 WBC (Bld) 0.2 % Normal 0-[address] [facility] Comment on above: Performed By: #### L 3400.3800, L503.6030 #### [facility] [address] [place], [address] Eosinophils/100 WBC (Bld) 0.0 % Normal 0-5 [facility] Comment on above: Performed By: #### L 3400.3800, L503.6030 #### [facility] [address] [place], [address] Erythrocyte distribution width (RBC) [Ratio] 13.2 % Normal 11.6-14.6 [facility] Comment on above: Performed By: #### L 3400.3800, L503.6030 #### [facility] [address] [place], [address] Hematocrit (Bld) [Volume fraction] 39.9 % Normal 37-47 [facility] Comment on above: Performed By: #### L 3400.3800, L503.6030 #### [facility] [address] [place], [address] Hemoglobin (Bld) [Mass/Vol] 13.1 g/dL Normal 12.0-15.0 [facility] Comment on above: Performed By: #### L 3400.3800, L503.6030 #### [facility] [address] [place], [address] IG% 0.200 Normal 0.0-0.9 [facility] Comment on above: Result Comment: IG% - Immature Granulocytes (promyelocytes, myelocytes and metamyelocytes) > 1% indicates that a LEFT SHIFT is Present. Performed By: #### L 3400.3800, L503.6030 #### [facility] [address] [place], [address] Lymphocytes/100 WBC (Bld) 19.7 % Normal 19-41 [facility] Comment on above: Performed By: #### L 3400.3800, L503.6030 #### [facility] [address] [place], [address] MCH (RBC) [Entitic mass] 29.6 pg Normal 27.0-32.0 [facility] Comment on above: Performed By: #### L 3400.3800, L503.6030 #### [facility] [address] [place], [address] MCHC (RBC) [Mass/Vol] 32.8 g/dL Normal 32-36 [facility] Comment on above: Performed By: #### L 3400.3800, L503.6030 #### [facility] [address] [place], [address] MCV (RBC) [Entitic vol] 90.1 fL Normal 81-[address] [facility] Comment on above: Performed By: #### L 3400.3800, L503.6030 #### [facility] [address] [place], [address] Monocytes/100 WBC (Bld) 6.0 % Normal 0-10 [facility] Comment on above: Performed By: #### L 3400.3800, L503.6030 #### [facility] [address] [place], [address] Neutrophils/100 WBC (Bld) 73.9 % High 47-70 [facility] Comment on above: Performed By: #### L 3400.3800, L503.6030 #### [facility] [address] [place], [address] Nucleated RBC (Bld) [#/Vol] 0 10*3/uL Normal 0-5 [facility] Comment on above: Performed By: #### L 3400.3800, L503.6030 #### [facility] [address] [place], [address] Platelet mean volume (Bld) [Entitic vol] 9.8 fL Normal 6.2-12.0 [facility] Comment on above: Performed By: #### L 3400.3800, L503.6030 #### [facility] [address] [place], [address] Platelets (Bld) [#/Vol] 192 10*3/uL Normal 150-450 [facility] Comment on above: Performed By: #### L 3400.3800, L503.6030 #### [facility] [address] [place], [address] RBC (Bld) [#/Vol] 4.43 10*6/uL Normal 4.2-5.4 [facility] Comment on above: Performed By: #### L 3400.3800, L503.6030 #### [facility] [address] [place], [address] RDW SD 43.7 fl Normal 35.1-43.9 [facility] Comment on above: Performed By: #### L 3400.3800, L503.6030 #### [facility] [address] [place], [address] WBC (Bld) [#/Vol] 4.2 10*3/uL Low 4.4-11.0 [facility] Comment on above: Performed By: #### L 3400.3800, L503.6030 #### [facility] [address] [place], [address] Eosinophil percentageOrdered By: Bertha Carr on 01-20-2025 Eosinophils/100 WBC (Bld) 0.0 % 0-5 [facility] Erythrocyte distribution wid th ratioOrdered By: Bertha Carr on 01-20-2025 Erythrocyte distribution width (RBC) [Ratio] 13.2 % 11.6-14.6 [facility] Erythrocyte distribution wid th standard deviationOrdered By: Bertha Carr on 01-20-2025 Erythrocyte distribution width (RBC) [Ratio] 43.7 fl 35.1-43.9 [facility] Hematocrit Auto (Bld) [Volum e fraction]Ordered By: Bertha Carr on 01-20-2025 Hematocrit (Bld) [Volume fraction] 39.9 % 37-47 [facility] Hemoglobin measurementOrdere d By: Bertha Carr on 01-20-2025 Hemoglobin (Bld) [Mass/Vol] 13.1 g/dL 12.0-15.0 [facility] Immature granulocytes/100 WB C Auto (Bld)Ordered By: Bertha Carr on 01-20-2025 Immature granulocytes/100 WBC (Bld) 0.200 % 0.0-0.9 [facility] Comment on above: IG% - Immature Granu locytes (promyelocytes, myelocytes and metamyelocytes) > 1% indicates that a LEFT SHIFT is Present. Iron measurement (mass/mass) Ordered By: Bertha Carr on 01-20-2025 Iron (Unsp spec) [Mass/Mass] 96 ug/dL 50-170 [facility] Iron+Iron Binding Capacityon 01-20-2025 Iron [Mass/Vol] 96 ug/dL Normal 50-170 [facility] Comment on above: Performed By: #### L 3400.3800, L503.6030 #### [facility] [address] [place], [address] IRON SATURATION 33.0 Normal 13-59 [facility] Comment on above: Performed By: #### L 3400.3800, L503.6030 #### [facility] [address] [place], [address] TIBC 294 ug/dL Normal 250-450 [facility] Comment on above: Performed By: #### L 3400.3800, L503.6030 #### [facility] [address] [place], [address] UIBC 198 ug/dL Low 228-428 [facility] Comment on above: Performed By: #### L 3400.3800, L503.6030 #### [facility] [address] [place], [address] MCV (mean corpuscular volume ) determinationOrdered By: Bertha Carr on 01-20-2025 MCV (RBC) [Entitic vol] 90.1 fL 81-[address] [facility] Mean corpuscular hemoglobin (MCH) determinationOrdered By: Bertha Carr on 01-20-2025 MCH (RBC) [Entitic mass] 29.6 pg 27.0-32.0 [facility] Mean corpuscular hemoglobin concentration (MCHC) determinationOrdered By: Bertha Carr on 01-20-2025 MCHC (RBC) [Mass/Vol] 32.8 g/dL 32-36 [facility] Mean platelet volume determi nationOrdered By: Bertha Carr on 01-20-2025 Platelet mean volume (Bld) [Entitic vol] 9.8 fL 6.2-12.0 [facility] Monocyte percentageOrdered B y: Bertha Carr on 01-20-2025 Monocytes/100 WBC (Bld) 6.0 % 0-[address] [facility] Neutrophil percentageOrdered By: Bertha Carr on 01-20-2025 Neutrophils/100 WBC (Bld) 73.9 % High 47-70 [facility] No Panel InformationOrdered By: Bertha Carr on 01-20-2025 Unsaturated Iron Binding Capacity 198 ug/dL Low 228-428 [facility] Nucleated red blood cell per centageOrdered By: Bertha Carr on 01-20-2025 Nucleated RBC/100 WBC (Bld) [Ratio] 0 % 0-5 [facility] Platelet countOrdered By: Boom Carr on 01-20-2025 Platelets (Bld) [#/Vol] 192 10*3/uL 150-450 [facility] RBC Auto (Bld) [#/Vol]Ordere d By: Bertha Carr on 01-20-2025 RBC (Bld) [#/Vol] 4.43 10*6/uL 4.2-5.4 [facility] Serum or plasma iron saturat ion measurement (mass fraction)Ordered By: Bertha Carr on 01-20-2025 Iron saturation [Mass fraction] 33.0 % 13-59 [facility] TransferrinOrdered By: Kyleigh Carr on 01-20-2025 Transferrin [Mass/Vol] 243 mg/dL 192-364 [facility] Comment on above: Performed at: [facility] Fab[address] [id number] Director: Pravin Pandya PhD, Phone: [phone] White blood cell (WBC) count Ordered By: Bertha Carr on 01-20-2025 WBC (Bld) [#/Vol] 4.2 10*3/uL Low 4.4-11.0 [facility] CNOVon 01-19-2025 CNOV Normal [facility] CNPNon 01-19-2025 CNPN Normal [facility] CNPNon 01-12-2025 CNPN Normal [facility] DIPHTHER/TETANUS ABon 2024 DIPHTHERIA AB 2.5 IU/mL Normal [facility] Comment on above: Order Comment: Speci men Type: BLOOD SPECIMENOrdering Facility: [facility] Address: [address] [place] [address] Result Comment: INTE RPRETIVE INFORMATION: Diphtheria Ab, IgGAntibody concentration of greater than 0.1 IU/mL is usuallyconsidered protective.Responder status is determined according to the ratio of a onemonth post-vaccination sample to pre-vaccination concentrations ofDiphtheria IgG Abs as follows:1. If the one month post-vaccination concentration is less than 1.0 IU/mL, the patient is considered to be a non-responder.2. If the post-vaccination concentration is greater than or equal to 1.0 IU/mL, a patient with a ratio of less than 1.5 is a non-responder, a ratio of 1.5 to less than 3.0, a weak responder, and a ratio of 3.0 or greater, a good responder.3. If the pre-vaccination concentration is greater than 1.0 IU/mL, it may be difficult to assess the response based on a ratio alone. A post-vaccination concentration above 2.5 IU/mL in this case is usually adequate.This test was developed and its performance characteristicsdetermined by [employer]. It has not been cleared orapproved by the [place] Food and Drug Administration. This test wasperformed in a CLIA certified laboratory and is intended forclinical purposes. Performed By: #### D IPTET, PNE23 ####[facility] LABORATORIESCLIA [id number] [place] [address] TETANUS AB 13.7 IU/mL Normal [facility] Comment on above: Order Comment: Speci men Type: BLOOD SPECIMENOrdering Facility: [facility] Address: [address] [place] [address] Result Comment: INTE RPRETIVE INFORMATION: Tetanus Ab, IgGAntibody concentration of greater than 0.1 IU/mL is usuallyconsidered protective.Responder status is determined according to the ratio of aone-month post-vaccination sample to pre-vaccination concentrationof Tetanus IgG Abs as follows:1. If the one month post-vaccination concentration is less than 1.0 IU/mL, the patient is considered a non-responder.2. If the post-vaccination concentration is greater than or equal to 1.0 IU/mL, a patient with a ratio of less than 1.5 is a non-responder, a ratio of 1.5 to less than 3.0, a weak responder, and a ratio of 3.0 or greater, a good responder.3. If the pre-vaccination concentration is greater than 1.0 IU/mL, it may be difficult to assess the response based on a ratio alone. A post-vaccination concentration above 2.5 IU/mL in this case is usually adequate.This test was developed and its performance characteristicsdetermined by [employer]. It has not been cleared orapproved by the [place] Food and Drug Administration. This test wasperformed in a CLIA certified laboratory and is intended forclinical purposes.Performed By: [facility] [place], [place] [address]Rkezknmhbl Director: Marcus Rosado MD, PhDCLIA Number: [id number] Performed By: #### D IPTET, PNE23 ####[facility] [id number] [place] [address] IMMUNOGLOBULINS,IGG,IGA,IGMo n 01-12-2025 IgA [Mass/Vol] 112 mg/dL Normal 70-400 [facility] Comment on above: Order Comment: Speci men Type: BLOOD SPECIMENOrdering Facility: [facility] Address: [address] [place] [address] Performed By: #### S SEAN ####[facility] LABCLIA [id number] [place] [address] [place] IgG [Mass/Vol] 755 mg/dL Normal 700-1600 [facility] Comment on above: Order Comment: Speci men Type: BLOOD SPECIMENOrdering Facility: [facility] Address: [address] [place] [address] Performed By: #### S ERIMM ####[facility] LABCLIA [id number] [place] [address] [place] IgM [Mass/Vol] 129 mg/dL Normal 40-230 [facility] Comment on above: Order Comment: Speci men Type: BLOOD SPECIMENOrdering Facility: [facility] Address: [address] [place] [address] Performed By: #### S ERIMM ####[facility] LABCLIA [id number] [place] [address] [place] IgE SerPl-aCncon 01-12-2025 IgE Qn 7.0 kU/l Normal <114.0 [facility] Comment on above: Order Comment: Speci men Type: BLOOD SPECIMENOrdering Facility: [facility] Address: [address] [place] [address] Performed By: #### 1 9113-0 ####[facility] LABCLIA [id number] [place] [address] [place] PNEUMOCOCCAL IGG ABS, 23 SER OTYPESon 01-12-2025 PNEUMO SEROTYPE 1 IGG (P13,PNX) 6.89 ug/mL Normal [facility] Comment on above: Order Comment: Speci men Type: BLOOD SPECIMENOrdering Facility: [facility] Address: [address] [place] [address] Performed By: #### D IPTET, PNE23 ####[facility]IESCLIA [id number] [place] [address] PNEUMO SEROTYPE 10A IGG (PNX) >29.06 Normal [facility] Comment on above: Order Comment: Speci men Type: BLOOD SPECIMENOrdering Facility: [facility] Address: [address] [place] [address] Performed By: #### D IPTET, PNE23 ####[facility]IESCLIA [id number] [place] [address] PNEUMO SEROTYPE 11A IGG (PNX) 0.55 ug/mL Normal [facility] Comment on above: Order Comment: Speci men Type: BLOOD SPECIMENOrdering Facility: [facility] Address: [address] [place] [address] Performed By: #### D IPTET, PNE23 ####[facility]IESCLIA [id number] [place] [address] PNEUMO SEROTYPE 12F IGG (PNX) >20.50 Normal [facility] Comment on above: Order Comment: Speci men Type: BLOOD SPECIMENOrdering Facility: [facility] Address: [address] [place] [address] Performed By: #### D IPTET, PNE23 ####[facility]IESCLIA [id number] [place] [address] PNEUMO SEROTYPE 14 IGG (P7,P13,PNX) >35.84 Normal [facility] Comment on above: Order Comment: Speci men Type: BLOOD SPECIMENOrdering Facility: [facility] Address: [address] [place] [address] Performed By: #### D IPTET, PNE23 ####[facility]IESCLIA [id number] [place] [address] PNEUMO SEROTYPE 15B IGG (PNX) 9.23 ug/mL Normal [facility] Comment on above: Order Comment: Speci men Type: BLOOD SPECIMENOrdering Facility: [facility] Address: [address] [place] [address] Performed By: #### D IPTET, PNE23 ####[facility]IESCLIA [id number] [place] [address] PNEUMO SEROTYPE 17F IGG (PNX) >11.68 Normal [facility] Comment on above: Order Comment: Speci men Type: BLOOD SPECIMENOrdering Facility: [facility] Address: [address] [place] [address] Performed By: #### D IPTET, PNE23 ####[facility]IESCLIA [id number] [place] [address] PNEUMO SEROTYPE 18C IGG (P7,P13,PNX) >11.15 Normal [facility] Comment on above: Order Comment: Speci men Type: BLOOD SPECIMENOrdering Facility: [facility] Address: [address] [place] [address] Performed By: #### D IPTET, PNE23 ####[facility]IESCLIA [id number] [place] [address] PNEUMO SEROTYPE 19A IGG (P13,PNX) 3.16 ug/mL Normal [facility] Comment on above: Order Comment: Speci men Type: BLOOD SPECIMENOrdering Facility: [facility] Address: [address] [place] [address] Performed By: #### D IPTET, PNE23 ####[facility]IESCLIA [id number] [place] [address] PNEUMO SEROTYPE 19F IGG (P7,P13,PNX) 22.19 ug/mL Normal [facility] Comment on above: Order Comment: Speci men Type: BLOOD SPECIMENOrdering Facility: [facility] Address: [address] [place] [address] Performed By: #### D IPTET, PNE23 ####[facility]IESCLIA [id number] [place] [address] PNEUMO SEROTYPE 2 IGG (PNX) 14.22 ug/mL Normal [facility] Comment on above: Order Comment: Speci men Type: BLOOD SPECIMENOrdering Facility: [facility] Address: [address] [place] [address] Performed By: #### D IPTET, PNE23 ####[facility]IESCLIA [id number] [place] [address] PNEUMO SEROTYPE 20 IGG (PNX) 6.68 ug/mL Normal [facility] Comment on above: Order Comment: Speci men Type: BLOOD SPECIMENOrdering Facility: [facility] Address: [address] [place] [address] Performed By: #### D IPTET, PNE23 ####[facility]IESCLIA [id number] [place] [address] PNEUMO SEROTYPE 22F IGG (PNX) 24.05 ug/mL Normal [facility] Comment on above: Order Comment: Speci men Type: BLOOD SPECIMENOrdering Facility: [facility] Address: [address] [place] [address] Performed By: #### D IPTET, PNE23 ####[facility]IESCLIA [id number] [place] [address] PNEUMO SEROTYPE 23F IGG (P7,P13,PNX) >9.46 Normal [facility] Comment on above: Order Comment: Speci men Type: BLOOD SPECIMENOrdering Facility: [facility] Address: [address] [place] [address] Performed By: #### D IPTET, PNE23 ####[facility]IESCLIA [id number] [place] [address] PNEUMO SEROTYPE 3 IGG (P13,PNX) 1.70 ug/mL Normal [facility] Comment on above: Order Comment: Speci men Type: BLOOD SPECIMENOrdering Facility: [facility] Address: [address] [place] [address] Performed By: #### D IPTET, PNE23 ####[facility]IESCLIA [id number] [place] [address] PNEUMO SEROTYPE 33F IGG (PNX) 7.00 ug/mL Normal [facility] Comment on above: Order Comment: Speci men Type: BLOOD SPECIMENOrdering Facility: [facility] Address: [address] [place] [address] Performed By: #### D IPTET, PNE23 ####[facility]IESCLIA [id number] [place] [address] PNEUMO SEROTYPE 4 IGG (P7,P13,PNX) 0.90 ug/mL Normal [facility] Comment on above: Order Comment: Speci men Type: BLOOD SPECIMENOrdering Facility: [facility] Address: [address] [place] [address] Performed By: #### D IPTET, PNE23 ####[facility]IESCLIA [id number] [place] [address] PNEUMO SEROTYPE 5 IGG (P13,PNX) >21.21 Normal [facility] Comment on above: Order Comment: Speci men Type: BLOOD SPECIMENOrdering Facility: [facility] Address: [address] [place] [address] Performed By: #### D IPTET, PNE23 ####[facility]IESCLIA [id number] [place] [address] PNEUMO SEROTYPE 6B IGG (P7,P13,PNX) 5.89 ug/mL Normal [facility] Comment on above: Order Comment: Speci men Type: BLOOD SPECIMENOrdering Facility: [facility] Address: [address] [place] [address] Performed By: #### D IPTET, PNE23 ####[facility]IESCLIA [id number] [place] [address] PNEUMO SEROTYPE 7F IGG (P13,PNX) 0.19 ug/mL Normal [facility] Comment on above: Order Comment: Speci men Type: BLOOD SPECIMENOrdering Facility: [facility] Address: [address] [place] [address] Performed By: #### D IPTET, PNE23 ####[facility]IESCLIA [id number] [place] [address] PNEUMO SEROTYPE 8 IGG (PNX) 2.35 ug/mL Normal [facility] Comment on above: Order Comment: Speci men Type: BLOOD SPECIMENOrdering Facility: [facility] Address: [address] [place] [address] Performed By: #### D IPTET, PNE23 ####[facility]IESCLIA [id number] [place] [address] PNEUMO SEROTYPE 9N IGG (PNX) 5.51 ug/mL Normal [facility] Comment on above: Order Comment: Speci men Type: BLOOD SPECIMENOrdering Facility: [facility] Address: [address] [place] [address] Performed By: #### D IPTET, PNE23 ####[facility]IESCLIA [id number] [place] [address] PNEUMO SEROTYPE 9V IGG (P7,P13,PNX) 2.43 ug/mL Normal [facility] Comment on above: Order Comment: Speci men Type: BLOOD SPECIMENOrdering Facility: [facility] Address: [address] [place] [address] Performed By: #### D IPTET, PNE23 ####[facility]IESCLIA [id number] [place] [address] PNEUMOCOCCAL INTERPRETATION See Note Normal [facility] Comment on above: Order Comment: Speci men Type: BLOOD SPECIMENOrdering Facility: [facility] Address: [address] [place] [address] Result Comment: INTE RPRETIVE INFORMATION: Streptococcus pneumoniae Antibodies, IgGA pre- and postvaccination comparison is required to adequatelyassess the humoral immune response to the pure polysaccharidePneumovax 23 (PNX) and/or the protein conjugated Prevnar 7 (P7),Prevnar 13 (P13), Prevnar 20 (P20), and Vaxneuvance (V15)Streptococcus pneumoniae vaccines. Prevaccination samples shouldbe collected prior to vaccine administration. Postvaccinationsamples should be obtained at least 4 weeks after immunization.Testing of postvaccination samples alone will provide only generalimmune status of the individual to various pneumococcal serotypes.In the case of pure polysaccharide vaccine, indication of immunesystem competence is further delineated as an adequate response toat least 50 percent of the serotypes in the vaccine challenge forthose 2-5 years of age and to at least 70 percent of the serotypesin the vaccine challenge for those 6-65 years of age. Individualimmune response may vary based on age, past exposure,immunocompetence, and pneumococcal serotype.Responder Status Antibody Ratio Nonresponder ........... Less than twofold increase and postvaccination concentration less than 1.3 ug/mL Good responder ......... At least a twofold increase and/or a postvaccination concentration greater than or equal to 1.3 ug/mLA response to 50-70 percent or more of the serotypes in thevaccine challenge is considered a normal humoral response.(Jessica,2014) Antibody concentration greater than 1.0-1.3 ug/mL isgenerally considered long-term protection.(Jessica, 2015)References:1. Jessica ACOSTA, Kleber FERRER, Jose X, et al. Multilaboratoryassessment of threshold versus fold-change algorithms forminimizing analytical variability in multiplexed pneumococcal IgGmeasurements. Clin Vaccine Immunol. 2014;21(7):982-988.2. Jessica ACOSTA, Tutu THOMPSON. Use and clinical interpretation ofpneumococcal antibody measurements in the evaluation of humoralimmune function. Clin Vaccine Immunol. 2015;22(2):148-152.This test was developed and its performance characteristicsdetermined by [employer]. It has not been cleared orapproved by the U.S. Food and Drug Administration. This test wasperformed in a CLIA-certified laboratory and is intended forclinical purposes.Performed By: [facility] [place] [id number] Director: Marcus Rosado MD, PhDCLIA Number: [id number] Performed By: #### D IPTET, PNE23 ####[facility] [id number] [place] [address] CNPNon 01-11-2025 CNPN Normal [facility] B. burgdorferi IgG and IgM p munira (S)on 01-10-2025 B. burgdorferi IgG+IgM Qn (S) Negative Normal Negative [facility] Comment on above: Order Comment: Speci men Type: BLOOD SPECIMENOrdering Facility: [facility] Address: [address] [place] [address] Result Comment: Rece nt infection with B. burgdorferi sensu lato cannot be excluded if the specimen collected within four weeks after the onset of signs and symptoms or within six weeks after a known tick exposure. Clinical and epidemiological correlation is required. Performed By: #### 3 4942-3 ####[facility] LABCLIA [id number] [place] [address] [place] BARTONELLA AB PANELon 2024 [place] T[place]FAYE IGG AB <1:64 Normal [facility] Comment on above: Order Comment: Speci men Type: BLOOD SPECIMENOrdering Facility: [facility] Address: [address] [place], [place] [address] Result Comment: INTE RPRETIVE INFORMATION: Bartonella tesfaye Antibody, IgG Less than 1:64 ....... Negative: No significant level of Bartonella tesfaye IgG antibody detected. 1:64 - 1:128 ........ Equivocal: Questionable presence of Bartonella tesfaye IgG antibody detected. Repeat testing in 10-14 days may be helpful. 1:256 or greater ..... Positive: Presence of IgG antibody to Bartonella tesfaye detected, suggestive of current or past infection.A low positive suggests past exposure or infection, while highpositive results may indicate recent or current infection, but isinconclusive for diagnosis. Seroconversion between acute andconvalescent sera is considered strong evidence of recentinfection. The best evidence for infection is a significant changeon two appropriately timed specimens where both tests are done inthe same laboratory at the same time.This test was developed and its performance characteristicsdetermined by [employer]. It has not been cleared orapproved by the [place] Food and Drug Administration. This test wasperformed in a CLIA certified laboratory and is intended forclinical purposes. Performed By: #### W HIPWB, BARTAB ####[facility] LABORATORIESIA [id number] [place] [address] [place] TESFAYE IGM AB < 1:16 Normal [facility] Comment on above: Order Comment: Speci men Type: BLOOD SPECIMENOrdering Facility: [facility] Address: [address] [place], [place] [address] Result Comment: INTE RPRETIVE INFORMATION: Bartonella tesfaye Ab, IgM Less than 1:16 ...... Negative-No significant level of Bartonella tesfaye IgM antibody detected. 1:16 or greater ..... Positive-Presence of IgM antibody to Bartonella tesfaye detected, suggestive of current or recent infection.The presence of IgM antibodies suggests recent infection. Lowlevels of IgM antibodies may occasionally persist for more than 12months post-infection.This test was developed and its performance characteristicsdetermined by [employer]. It has not been cleared orapproved by the [place] Food and Drug Administration. This test wasperformed in a CLIA certified laboratory and is intended forclinical purposes.Performed By: [employer] [place], [place] [address]Tcne[employer] Director: Marcus Rosado MD, PhDCLIA Number: [id number] Performed By: #### W HIPWB, BARTAB ####[facility]ITALCLIA [id number] [place] [address] BARTONELLA HENSELAE AB, IGG <1:64 Normal [facility] Comment on above: Order Comment: Speci men Type: BLOOD SPECIMENOrdering Facility: [facility] Address: [address] [place] [address] Result Comment: INTE RPRETIVE INFORMATION: Bartonella henselae Ab, IgG Less than 1:64 ....... Negative: No significant level of Bartonella henselae IgG antibody detected. 1:64 - 1:128 ......... Equivocal: Questionable presence of Bartonella henselae IgG antibody detected. Repeat testing in 10-14 days may be helpful. 1:256 or greater ..... Positive: Presence of IgG antibody to Bartonella henselae detected, suggestive of current or past infection.A low positive suggests past exposure or infection, while highpositive results may indicate recent or current infection, but areinconclusive for diagnosis. Seroconversion between acute andconvalescent sera is considered strong evidence of recentinfection. The best evidence for infection is significant changeon two appropriately timed specimens where both tests are done inthe same laboratory at the same time.This test was developed and its performance characteristicsdetermined by [employer]. It has not been cleared orapproved by the [place] Food and Drug Administration. This test wasperformed in a CLIA certified laboratory and is intended forclinical purposes. Performed By: #### W HIPWB, BARTAB ####[facility]ITALCLIA [id number] [place] [address] BARTONELLA HENSELAE AB, IGM < 1:16 Normal [facility] Comment on above: Order Comment: Speci men Type: BLOOD SPECIMENOrdering Facility: [facility] Address: [address] [place] [address] Result Comment: INTE RPRETIVE INFORMATION: Bartonella henselae Antibody, IgM Less than 1:16 ...... Negative: No significant level of Bartonella henselae IgM antibody detected. 1:16 or greater ..... Positive: Presence of IgM antibody to Bartonella henselae detected, suggestive of current or recent infection.The presence of IgM antibodies suggest recent infection, lowlevels of IgM antibodies may occasionally persist for more than 12months post infection.This test was developed and its performance characteristicsdetermined by [employer]. It has not been cleared orapproved by the [place] Food and Drug Administration. This test wasperformed in a CLIA certified laboratory and is intended forclinical purposes. Performed By: #### W HIPWB, BARTAB ####[facility] LABORATORIESCLIA [id number] [place] [address] CBC W Auto Differential pane l (Bld)on 01-10-2025 Basophils (Bld) [#/Vol] 10*3/uL Normal <0.11 [facility] Comment on above: Order Comment: Speci men Type: BLOOD SPECIMENOrdering Facility: [facility] Address: [address] [place] [address] Performed By: #### 5 7021-8, 4537-7 ####[facility] LABCLIA [id number] [place] [address] [place] Basophils/100 WBC (Bld) 0.2 % Normal [facility] Comment on above: Order Comment: Speci men Type: BLOOD SPECIMENOrdering Facility: [facility] Address: [address] [place] [address] Performed By: #### 5 7021-8, 4537-7 ####[facility] LABCLIA [id number] [place] [address] [place] Differential cell count method Nom (Bld) Auto Normal [facility] Comment on above: Order Comment: Speci men Type: BLOOD SPECIMENOrdering Facility: [facility] Address: [address] [place] [address] Performed By: #### 5 7021-8, 4536-7 ####[facility] LABCLIA [id number] [place] [address] [place] Eosinophils (Bld) [#/Vol] 10*3/uL Normal <0.46 [facility] Comment on above: Order Comment: Speci men Type: BLOOD SPECIMENOrdering Facility: [facility] Address: [address] [place] [address] Performed By: #### 5 7021-8, 7 ####[facility] LABIA [id number] [place] [address] [place] Eosinophils/100 WBC (Bld) 0.0 % Normal [facility] Comment on above: Order Comment: Speci men Type: BLOOD SPECIMENOrdering Facility: [facility] Address: [address] [place] [address] Performed By: #### 5 7021-8, 7 ####[facility] LABIA [id number] [place] [address] [place] Erythrocyte distribution width (RBC) [Ratio] 13.4 % Normal 11.5-15.0 [facility] Comment on above: Order Comment: Speci men Type: BLOOD SPECIMENOrdering Facility: [facility] Address: [address] [place] [address] Performed By: #### 5 7021-8, 7 ####[facility] LABIA [id number] [place] [address] [place] Hematocrit (Bld) [Volume fraction] 36.6 % Normal 36.0-46.0 [facility] Comment on above: Order Comment: Speci men Type: BLOOD SPECIMENOrdering Facility: [facility] Address: [address] [place] [address] Performed By: #### 5 7021-8, 4537-01 ####[facility] LABCLIA [id number] [address] [address] [place] Hemoglobin (Bld) [Mass/Vol] 11.8 g/dL Normal 11.5-15.5 [facility] Comment on above: Order Comment: Speci men Type: BLOOD SPECIMENOrdering Facility: [facility] Address: [address] [place] [address] Performed By: #### 5 7021-8, 7 ####[facility] LABCLIA [id number] [place] [address] [place] Immature granulocytes (Bld) [#/Vol] 10*3/uL Normal <0.10 [facility] Comment on above: Order Comment: Speci men Type: BLOOD SPECIMENOrdering Facility: [facility] Address: [address] [place] [address] Performed By: #### 5 7021-8, 7 ####[facility] LABIA [id number] [place] [address] [place] Immature granulocytes/100 WBC (Bld) 0.2 % Normal [facility] Comment on above: Order Comment: Speci men Type: BLOOD SPECIMENOrdering Facility: [facility] Address: [address] [place] [address] Performed By: #### 5 7021-8, 7 ####[facility] LABCLIA [id number] [place] [address] [place] Lymphocytes (Bld) [#/Vol] 0.97 10*3/uL Low 1.00-4.00 [facility] Comment on above: Order Comment: Speci men Type: BLOOD SPECIMENOrdering Facility: [facility] Address: [address] [place] [address] Performed By: #### 5 7021-8, 4536-7 ####[facility] LABCLIA [id number] [place] [address] [place] Lymphocytes/100 WBC (Bld) 14.8 % Normal [facility] Comment on above: Order Comment: Speci men Type: BLOOD SPECIMENOrdering Facility: [facility] Address: [address] [place] [address] Performed By: #### 5 7021-8, 4537-7 ####[facility] LABCLIA [id number] [place] [address] [place] MCH (RBC) [Entitic mass] 29.4 pg Normal 26.0-34.0 [facility] Comment on above: Order Comment: Speci men Type: BLOOD SPECIMENOrdering Facility: [facility] Address: [address] [place] [address] Performed By: #### 5 7021-8, 4537-7 ####[facility] LABCLIA [id number] [place] [address] [place] MCHC (RBC) [Mass/Vol] 32.2 g/dL Normal 30.5-36.0 [facility] Comment on above: Order Comment: Speci men Type: BLOOD SPECIMENOrdering Facility: [facility] Address: [address] [place] [address] Performed By: #### 5 7021-8, 4537-7 ####[facility] LABCLIA [id number] [place] [address] [place] MCV (RBC) [Entitic vol] 91.0 fL Normal 80.0-100.0 [facility] Comment on above: Order Comment: Speci men Type: BLOOD SPECIMENOrdering Facility: [facility] Address: [address] [place] [address] Performed By: #### 5 7021-8, 4537-7 ####[facility] LABCLIA [id number] [place] [address] [place] Monocytes (Bld) [#/Vol] 0.50 10*3/uL Normal <0.87 [facility] Comment on above: Order Comment: Speci men Type: BLOOD SPECIMENOrdering Facility: [facility] Address: [address] [place] [address] Performed By: #### 5 7021-8, 7 ####[facility] LABCLIA [id number] [facility] [place] [address] [place] Monocytes/100 WBC (Bld) 7.6 % Normal [facility] Comment on above: Order Comment: Speci men Type: BLOOD SPECIMENOrdering Facility: [facility] Address: [address] [place] [address] Performed By: #### 5 7021-8, 7 ####[facility] LABCLIA [id number] [facility] [place] [address] [place] Neutrophils (Bld) [#/Vol] 5.06 10*3/uL Normal 1.45-7.50 [facility] Comment on above: Order Comment: Speci men Type: BLOOD SPECIMENOrdering Facility: [facility] Address: [address] [place] [address] Performed By: #### 5 7021-8, 7 ####[facility] LABCLIA [id number] [facility] [place] [address] [place] Neutrophils/100 WBC (Bld) 77.2 % Normal [facility] Comment on above: Order Comment: Speci men Type: BLOOD SPECIMENOrdering Facility: [facility] Address: [address] [place] [address] Performed By: #### 5 7021-8, 4536-7 ####[facility] LABCLIA [id number] [facility] [place] [address] [place] Nucleated RBC (Bld) [#/Vol] 10*3/uL Normal <0.01 [facility] Comment on above: Order Comment: Speci men Type: BLOOD SPECIMENOrdering Facility: [facility] Address: [address] [place] [address] Performed By: #### 5 7021-8, 7-7 ####[facility] LABIA [id number] [place] [id number] [place] Nucleated RBC/100 WBC (Bld) [Ratio] 0.0 /100 WBC Normal [facility] Comment on above: Order Comment: Speci men Type: BLOOD SPECIMENOrdering Facility: [facility] Address: [address] [place] [address] Performed By: #### 5 7021-8, 4536-7 ####[facility] LABIA [id number] [place] [address] [place] Platelet mean volume (Bld) [Entitic vol] 10.5 fL Normal 9.0-12.7 [facility] Comment on above: Order Comment: Speci men Type: BLOOD SPECIMENOrdering Facility: [facility] Address: [address] [place] [address] Performed By: #### 5 7021-8, 4536-7 ####[facility] LABIA [id number] [place] [address] [place] Platelets (Bld) [#/Vol] 173 10*3/uL Normal 150-400 [facility] Comment on above: Order Comment: Speci men Type: BLOOD SPECIMENOrdering Facility: [facility] Address: [address] [place] [address] Performed By: #### 5 7021-8, 4536-7 ####[facility] LABIA [id number] [place] [id number] [place] RBC (Bld) [#/Vol] 4.02 10*6/uL Normal 3.90-5.20 [facility] Comment on above: Order Comment: Speci men Type: BLOOD SPECIMENOrdering Facility: [facility] Address: [address] [place] [address] Performed By: #### 5 7021-8, 4537-7 ####[facility] LABCLIA [id number] [address] [place] [address] [place] WBC (Bld) [#/Vol] 6.55 10*3/uL Normal 3.70-11.00 [facility] Comment on above: Order Comment: Speci men Type: BLOOD SPECIMENOrdering Facility: [facility] Address: [address] [place], [place] [address] Performed By: #### 5 7021-8, 4537-7 ####[facility] LABCLIA [id number] [address] [address] [place] CRP SerPl-mCncon 01-10-2025 CRP [Mass/Vol] 1.4 mg/dL High <0.9 [facility] Comment on above: Order Comment: Speci men Type: BLOOD SPECIMENOrdering Facility: [facility] Address: [address] [place] [address] Performed By: #### 2 43238, 1987-11, 2531-0, 2275-4 ####[facility] LABCLIA [id number] [address] [address] [place] Comprehensive metabolic 2000 panelon 01-10-2025 Albumin [Mass/Vol] 4.4 g/dL Normal 3.9-4.9 [facility] Comment on above: Order Comment: Speci men Type: BLOOD SPECIMENOrdering Facility: [facility] Address: [address] [place], [place] [address] Performed By: #### 2 4323-8, 1987-11, 2531-0, 2275-4 ####[facility] LABIA [id number] [address] [address] [place] ALP [Catalytic activity/Vol] 45 U/L Normal 34-123 [facility] Comment on above: Order Comment: Speci men Type: BLOOD SPECIMENOrdering Facility: [facility] Address: [address] [place] [address] Performed By: #### 2 432-8, 1987-11, 0, 2275-10 ####[facility] LABCLIA [id number] [address] [address] [place] ALT [Catalytic activity/Vol] 19 U/L Normal 7-38 [facility] Comment on above: Order Comment: Speci men Type: BLOOD SPECIMENOrdering Facility: [facility] Address: [address] [place] [address] Performed By: #### 2 4328, 1987-11, 0, 2275-10 ####[facility] LABIA [id number] [address] [address] [place] Anion gap [Moles/Vol] 11 mmol/L Normal 8-15 [facility] Comment on above: Order Comment: Speci men Type: BLOOD SPECIMENOrdering Facility: [facility] Address: [address] [place] [address] Performed By: #### 2 4328, 1987-11, 0, 2275-10 ####[facility] LABIA [id number] [address] [address] [place] AST [Catalytic activity/Vol] 20 U/L Normal 13-35 [facility] Comment on above: Order Comment: Speci men Type: BLOOD SPECIMENOrdering Facility: [facility] Address: [address] [place] [address] Performed By: #### 2 4328, 1987-11, 0, 2275-10 ####[facility] LABIA [id number] [address] [address] [place] Bilirubin [Mass/Vol] 0.2 mg/dL Normal 0.2-1.3 [facility] Comment on above: Order Comment: Speci men Type: BLOOD SPECIMENOrdering Facility: [facility] Address: [address] [place] [address] Performed By: #### 2 4328, 1987-11, 2531-0, 2275-10 ####[facility] LABCLIA [id number] [address] [address] [place] Calcium [Mass/Vol] 9.0 mg/dL Normal 8.5-10.2 [facility] Comment on above: Order Comment: Speci men Type: BLOOD SPECIMENOrdering Facility: [facility] Address: [address] [place] [address] Performed By: #### 2 4328, 1987-11, 2531-0, 2275-10 ####[facility] LABCLIA [id number] [address] [address] [place] Chloride [Moles/Vol] 105 mmol/L Normal 98-107 [facility] Comment on above: Order Comment: Speci men Type: BLOOD SPECIMENOrdering Facility: [facility] Address: [address] [place] [address] Performed By: #### 2 4328, 1987-11, 0, 2275-10 ####[facility] LABIA [id number] [address] [address] [place] CO2 [Moles/Vol] 23 mmol/L Normal 22-30 [facility] Comment on above: Order Comment: Speci men Type: BLOOD SPECIMENOrdering Facility: [facility] Address: [address] [place] [address] Performed By: #### 2 4328, 1987-11, 0, 2275-10 ####[facility] LABIA [id number] [address] [address] [place] Creatinine [Mass/Vol] 0.69 mg/dL Normal 0.58-0.96 [facility] Comment on above: Order Comment: Speci men Type: BLOOD SPECIMENOrdering Facility: [facility] Address: [address] [place] [address] Performed By: #### 2 4328, 1987-11, 2-0, 2275-10 ####[facility] LABIA [id number] [place] [address] [place] Creatinine and Glomerular filtration rate.predicted panel (S/P/Bld) 126 mL/min/1.73m??? Normal >=60 [facility] Comment on above: Order Comment: Lou rico Type: BLOOD SPECIMENOrdering Facility: [facility] Address: [address] [place] [address] Result Comment: Roseanne mated Glomerular Filtration Rate (eGFR) is calculated using the 2020 CKD-EPI creatinine equation. This equation utilizes serum creatinine, sex, and age as parameters. The creatinine assay has traceable calibration to isotope dilution-mass spectrometry. Refer to KDIGO guidelines for clinical interpretation. In patients with unstable renal function, e.g. those with acute kidney injury, the eGFR may not accurately reflect actual GFR. Performed By: #### 2 4328, 1987-11, 0, 2275-10 ####[facility] LABIA [id number] [address] [address] [place] Glucose [Mass/Vol] 80 mg/dL Normal 74-99 [facility] Comment on above: Order Comment: Lou rico Type: BLOOD SPECIMENOrdering Facility: [facility] Address: [address] [place] [address] Result Comment: The [place] [employer] (ADA) provides guidance for cutoff values for fasting glucose and random glucose. The ADA defines fasting as no caloric intake for at least 8 hours. Fasting plasma glucose results between 100 to 125 mg/dL indicate increased risk for diabetes (prediabetes).Fasting plasma glucose results greater than or equal to 126 mg/dL meet the criteria for diagnosis of diabetes. In the absence of unequivocal hyperglycemia, results should be confirmed by repeat testing. In a patient with classic symptoms of hyperglycemia or hyperglycemic crisis, random plasma glucose results greater than or equal to 200 mg/dL meet the criteria for diagnosis of diabetes.Reference: Standards of Medical Care in Diabetes 2016, [place] [employer]. Diabetes Care. 2016.39(Suppl 1). Performed By: #### 2 4323-02, 1987-11, 0, 2275-10 ####[facility] LABCLIA [id number] [address] [address] [place] Potassium [Moles/Vol] 4.2 mmol/L Normal 3.7-5.1 [facility] Comment on above: Order Comment: Speci men Type: BLOOD SPECIMENOrdering Facility: [facility] Address: [address] [place] [address] Performed By: #### 2 4323-02, 1987-11, 0, 2275-10 ####[facility] LABIA [id number] [address] [address] [place] Protein [Mass/Vol] 6.3 g/dL Normal 6.3-8.0 [facility] Comment on above: Order Comment: Speci men Type: BLOOD SPECIMENOrdering Facility: [facility] Address: [address] [place], [place] [address] Performed By: #### 2 4323-02, 1987-11, 0, 2275-10 ####[facility] LABIA [id number] [address] [address] [place] Sodium [Moles/Vol] 139 mmol/L Normal 136-144 [facility] Comment on above: Order Comment: Speci men Type: BLOOD SPECIMENOrdering Facility: [facility] Address: [address] [place] [address] Performed By: #### 2 4323-02, 1987-11, 0, 2275-10 ####[facility] LABIA [id number] [address] [address] [place] Urea nitrogen [Mass/Vol] 13 mg/dL Normal 7-21 [facility] Comment on above: Order Comment: Speci men Type: BLOOD SPECIMENOrdering Facility: [facility] Address: [address] [place] [address] Performed By: #### 2 43209-11, 1987-11, 0, 2275-4 ####[facility] LABCLIA [id number] [place] [id number] [place] ESR Westergren method (Bld) [Velocity]on 01-10-2025 ESR (Bld) [Velocity] 2 mm/h Normal 0-20 [facility] Comment on above: Order Comment: Speci men Type: BLOOD SPECIMENOrdering Facility: [facility] Address: [address] [place] [address] Performed By: #### 5 7021-8, 4537-7 ####[facility] LABIA [id number] [place] [address] [place] Ferritin SerPl-mCncon 2024 Ferritin [Mass/Vol] 203.0 ng/mL Normal 14.7-205.1 [facility] Comment on above: Order Comment: Speci men Type: BLOOD SPECIMENOrdering Facility: [facility] Address: [address] [place] [address] Performed By: #### 2 4323-8, 1987-11, 2531-0, 2275-10 ####[facility] [id number] [place] [address] [place] HIV 1+2 Ab IA Qlon HIV 1 and 2 Ab IA.rapid Nom (S/P/Bld) Normal [facility] Comment on above: Order Comment: Speci men Type: BLOOD SPECIMENOrdering Facility: [facility] Address: [address] [place] [address] Result Comment: Test not indicated. Performed By: #### 3 1201-7 ####[facility] LABIA [id number] [place] [address] [place] HIV 1+2 Ab+HIV1 p24 Ag IA Ql Non-Reactive Normal Nonreactive [facility] Comment on above: Order Comment: Speci men Type: BLOOD SPECIMENOrdering Facility: [facility] Address: [address] [place] [address] Performed By: #### 3 1201-7 ####[facility] [id number] [place] [id number] [place] HIV immunoassay testing algorithm interpretation (S/P/Bld) [Interp] Normal [facility] Comment on above: Order Comment: Speci men Type: BLOOD SPECIMENOrdering Facility: [facility] Address: [address] [place] [address] Result Comment: No e vidence of HIV-1 or HIV-2 infection. Should recent infection be suspected, repeat testing may be considered 2-3 weeks after this draw.[place] Rev. Code 3701.243(E): This information has been disclosed to you from confidential records protected from disclosure by state law. You shall make no further disclosure of this information without the specific, written, and informed release of the individual to whom it pertains or as otherwise permitted by state law. A general authorization for the release of medical or other information is not sufficient for the purpose of the release of HIV test results or diagnoses. Performed By: #### 3 1201-7 ####[facility] [id number] [place] [address] [place] LDH SerPl-cCncon 01-10-2025 LDH [Catalytic activity/Vol] 160 U/L Normal 135-214 [facility] Comment on above: Order Comment: Speci men Type: BLOOD SPECIMENOrdering Facility: [facility] Address: [address] [place] [address] Performed By: #### 2 4323-8, 1987-5, 2532-0, 2276-4 ####[facility] [id number] [place] [id number] [place] CRESTLINE'S PCRon 01-10-2025 Specimen source Nom (Unsp spec) Blood Normal [facility] Comment on above: Order Comment: Speci men Type: BLOOD SPECIMENOrdering Facility: [facility] Address: [address] [place] [address] Performed By: #### W HIPWB, BARTAB ####[facility] [id number] [place] [address] WHIPPLE'S PCR RESULT (WHIPWB) Not detected Normal [facility] Comment on above: Order Comment: Speci men Type: BLOOD SPECIMENOrdering Facility: [facility] Address: [address] [place] [address] Result Comment: NOT DETECTED - A negative result does not rule out thepresence of PCR inhibitors in the patient specimen orassay specific nucleic acid in concentrations below thelevel of detection by the assay.INTERPRETIVE INFORMATION: Tropheryma whipplei PCRThis test was developed and its performance characteristicsdetermined by [employer]. It has not been cleared orapproved by the [place] Food and Drug Administration. This test wasperformed in a CLIA certified laboratory and is intended forclinical purposes.Performed By: [facility] [place], [place] [address]Nrgimzkscf Director: Marcus Rosado MD, PhDCLIA Number: [id number] Performed By: #### W HIPWB, BARTAB ####[facility] LABORATORIESIA [id number] [place] [address] Culture, Throaton 12-31-2024 CUT Normal throat vi isolated. No beta-hemolytic streptococcus isolated. Normal [facility] Comment on above: Performed By: #### L 503.0106, L100.9950, L100.0100, L503.6030, L506.1001, L501.9520, L506.0400 #### [facility] [address] [place], [address] M100.677on 12-29-2024 M100.677 Negative Normal [facility] Comment on above: Performed By: #### L 3100.1950 #### [facility] [address] [place], [address] Streptococcus pyogenes rRNA detection in throat by DNA probeOrdered By: Bertha Carr on 12-29-2024 S. pyogenes rRNA Probe Ql (Throat) [facility] Throat specimen bacteria leonides ntification by cultureOrdered By: Bertha Carr on 12-29-2024 Bacteria identified Cx Nom (Throat) streptococcus isolated. [facility] CNPNon 12-28-2024 CNPN Normal [facility] CNPNon 12-15-2024 CNPN Normal [facility] L3410.9992on 12-14-2024 [facility] Misc. COMMENT Normal . [facility] Comment on above: Order Comment: 36122 4C2 TIGER RT Result Comment: Test Ordered: [id number] Complement C2 Test(s) 783795-Shlorrqkdj C2 results are labeled for research purposes only by the assay's blue split trimmer. The performance characteristics of this assay have not been established by the blue split trimmer. The result should not be used for treatment or for diagnostic purposes without confirmation of the diagnosis by another medically established diagnostic product or procedure. The performance characteristics were determined by [facility]. Complement C2 1.3 [L ] mg/dL Reference Range: 1.4-3.3 Performed at: - [address] [id number] Press Catcher: Zach Ferguson MD, Phone: [phone] Performed at: [facility] [address] [id number] Press Catcher: Pravin Pandya PhD, Phone: [phone] Performed By: #### L 2370.5696, W441.0684 #### [facility] [address] [place], [address] Tryptaseon 12-09-2024 TRYPTASE 6.8 ug/L Normal 2.2-13.2 [facility] Comment on above: Result Comment: Perf ormed at: [facility] [address] [id number] Press Catcher: Zach Ferguson MD, Phone: [phone] Performed By: #### L 3408.1584, H541.3041 #### [facility] [address] [place], [address] CNNURSEon 12-07-2024 CNNURSE Normal [facility] Office Visit Reporton 2024 Office Visit Report [facility] [address] [place] [address] OFFICE VISIT Date of Service: 12/07/24 MR#: [id number] Acct: [id number] Patient: MIKAYLA BERTRAND Rep #: [id number] : 2000 Provider: ELDER Moran Age/Sex: 24/F [place] [facility] [place]: Signed Intake Vital Signs 11/13/24 20:17 12/07/24 09:57 Height 5 ft 2 in 5 ft 2 in Weight: 118 lb BMI 21.5 BP 134/84 H Intake Visit Reasons: tdap Chief Complaint: cough, SOB, congestion Equipment Operat0R Required: No Is patient in pain?: No Allergies cefdinir Allergy (Intermediate, Verified 12/07/24 10:30) Swelling diphenhydramine (From Benadryl) Allergy (Intermediate, Verified 12/07/24 10:30) Other prochlorperazine (From Compazine) Allergy (Intermediate, Verified 12/07/24 10:30) Other gluten Allergy (Verified 12/07/24 10:30) Upset Stomach latex Allergy (Verified 12/07/24 10:30) Hives midazolam HCl (From Versed) Allergy (Verified 12/07/24 10:30) Other Penicillins Allergy (Verified 12/07/24 10:30) Hives haloperidol (From Haldol) Adverse Reaction (Verified 12/07/24 10:30) agitation Medications ???Medication ???Instructions ???Recorded ???Confirmed ???Type methylphenidate HCl 18 mg 18 mg PO DAILY 05/09/21 12/07/24 H istory tablet,extended release 24 hr (Concerta) propranolol 60 mg capsule,24 60 mg PO DAILY 09/12/23 12/07/24 H istory hr,extended release gabapentin 100 mg capsule 100 mg PO PRN nerve pain 05/24/24 12/07/24 History linaclotide 290 mcg capsule 290 mcg PO QDAY 05/24/24 12/07/24 History (Linzess) pyridostigmine bromide 60 mg tablet 60 mg PO TID 05/24/24 12/07/24 History famotidine 20 mg tablet 20 mg PO BID 08/13/24 12/07/24 His tory potassium chloride 10 mEq 10 meq PO QDAY 08/13/24 12/07/24 H istory capsule,extended release berotralstat 110 mg capsule 110 mg PO DAILY 11/13/24 12/07/24 History (Orladeyo) ketorolac 10 mg tablet 10 mg PO Q6H PRN PRN pain 11/13/24 12/07/24 History ferrous sulfate 3.75 mg iron/0.25 7.5 mg (0.5 mL) PO QDAY #60 ea 12/07/24 Rx mL oral syringe (ORAL USE) (Fe-Becki) ferrous sulfate 220 mg (44 mg 110 mg (2.5 mL) PO QDAY #473 mL 12/07/24 Rx iron)/5 mL oral elixir Post menopausal: No Patient : No Have you fallen in the past year?: No Immunizations Boostrix Tdap 2.5 Lf unit-8 mcg-5 Lf/0.5 mL intramuscular syringe Performing Provider: ELDER Cain Performing Location: [facility] Administered by: Dana Salazar on 12/07/24 10:31 Dose Route Admin Location Dispensed Lot Number Expiration Date ND Man ufacturer 0.5 mL IM Right Deltoid 0.5 mL [id number] 12/04/25 12427-960-68 [employer]- [employer]STEUR VIS Given Date VIS Provided VIS Publication Date 12/07/24 Single Vaccine 24 Eligibility Eligibility Date Funding Source Not Applicable Assessment and Plan Assessment and Plan Orders: Orders Tdap Immunization 12/07/24 Z23 - Encounter for immunization Plan Details Goals Barriers: Goals Decrease spasm and pain Increase ROM Increase ability to sleep Barriers Lumbar scoliosis Clinical Quality Measures Falls Risk Screening/Assistive Devices Have you fallen in the past year?: No 12/09/24 1246 Date Carmelina FRIEDMAN Cosigner Signature: Date (if applicable) CC: Normal [facility] CNPNon 12-02-2024 CNPN [facility] Transferrinon 11-28-2024 Transferrin [Mass/Vol] 392 mg/dL High 192-364 [facility] Comment on above: Result Comment: Perf ormed at: [facility] [id number] Press Catcher: Pravin Pandya PhD, Phone: [phone] Performed By: #### L 3400.3800, L542.3130 #### [facility] [address] [place], [place], [id number] Absolute lymphocyte countOrd ered By: Sobia Sarah on 11-26-2024 Lymphocytes Auto (Unsp spec) [#/Vol] 0.73 10*3/uL Low 0.83-4.51 [facility] Absolute neutrophil countOrd ered By: Sobia Sarah on 11-26-2024 Neutrophils (Bld) [#/Vol] 10.5 10*3/uL High 2.0-7.7 [facility] Automated lymphocyte count a s percentage of total leukocytesOrdered By: Sobia Sarah on 11-26-2024 Lymphocytes/100 WBC Auto (Unsp spec) 6.4 % Low 19-41 [facility] Basophil percentageOrdered B y: Sobia Sarah on 11-26-2024 Basophils/100 WBC (Bld) 0.1 % 0-[address] [facility] CBC W/Diff, Automatedon 11-05 Absolute Lymph 0.73 X10 3/uL Low 0.83-4.51 [facility] Comment on above: Performed By: #### L 3400.3800, L503.6030 #### [facility] [address] [place], [place], [address] Absolute Neut 10.5 X10 3/uL High 2.0-7.7 [facility] Comment on above: Performed By: #### L 3400.3800, L503.6030 #### [facility] [address] [place], [address] Basophils/100 WBC (Bld) 0.1 % Normal 0-[address] [facility] Comment on above: Performed By: #### L 3400.3800, L503.6030 #### [facility] [address] [place], [address] Eosinophils/100 WBC (Bld) 0.0 % Normal 0-5 [facility] Comment on above: Performed By: #### L 3400.3800, L503.6030 #### [facility] [address] [place], [address] Erythrocyte distribution width (RBC) [Ratio] 11.6 % Normal 11.6-14.6 [facility] Comment on above: Performed By: #### L 3400.3800, L503.6030 #### [facility] [address] [place], [address] Hematocrit (Bld) [Volume fraction] 38.5 % Normal 37-47 [facility] Comment on above: Performed By: #### L 3400.3800, L503.6030 #### [facility] [address] [place], [address] Hemoglobin (Bld) [Mass/Vol] 12.8 g/dL Normal 12.0-15.0 [facility] Comment on above: Performed By: #### L 3400.3800, L503.6030 #### [facility] [address] [place], [address] IG% 0.300 Normal 0.0-0.9 [facility] Comment on above: Result Comment: IG% - Immature Granulocytes (promyelocytes, myelocytes and metamyelocytes) > 1% indicates that a LEFT SHIFT is Present. Performed By: #### L 3400.3800, L503.6030 #### [facility] [address] [place], [address] Lymphocytes/100 WBC (Bld) 6.4 % Low 19-41 [facility] Comment on above: Performed By: #### L 3400.3800, L503.6030 #### [facility] [address] [place], [address] MCH (RBC) [Entitic mass] 28.9 pg Normal 27.0-32.0 [facility] Comment on above: Performed By: #### L 3400.3800, L503.6030 #### [facility] [address] [place], [address] MCHC (RBC) [Mass/Vol] 33.2 g/dL Normal 32-36 [facility] Comment on above: Performed By: #### L 3400.3800, L503.6030 #### [facility] [address] [place], [address] MCV (RBC) [Entitic vol] 86.9 fL Normal 81-99 [facility] Comment on above: Performed By: #### L 3400.3800, L503.6030 #### [facility] [address] [place], [address] Monocytes/100 WBC (Bld) 1.5 % Normal 0-10 [facility] Comment on above: Performed By: #### L 3400.3800, L503.6030 #### [facility] [address] [place], [address] Neutrophils/100 WBC (Bld) 91.7 % High 47-70 [facility] Comment on above: Performed By: #### L 3400.3800, L503.6030 #### [facility] [address] [place], [address] Nucleated RBC (Bld) [#/Vol] 0 10*3/uL Normal 0-5 [facility] Comment on above: Performed By: #### L 3400.3800, L503.6030 #### [facility] [address] [place], [address] Platelet mean volume (Bld) [Entitic vol] 9.8 fL Normal 6.2-12.0 [facility] Comment on above: Performed By: #### L 3400.3800, L503.6030 #### [facility] [address] [place], [address] Platelets (Bld) [#/Vol] 246 10*3/uL Normal 150-450 [facility] Comment on above: Performed By: #### L 3400.3800, L503.6030 #### [facility] [address] [place], [address] RBC (Bld) [#/Vol] 4.43 10*6/uL Normal 4.2-5.4 [facility] Comment on above: Performed By: #### L 3400.3800, L503.6030 #### [facility] [address] [place], [address] RDW SD 37.2 fl Normal 35.1-43.9 [facility] Comment on above: Performed By: #### L 3400.3800, L503.6030 #### [facility] [address] [place], [address] WBC (Bld) [#/Vol] 11.4 10*3/uL High 4.4-11.0 [facility] Comment on above: Performed By: #### L 3400.3800, L503.6030 #### [facility] [address] [place], [address] Eosinophil percentageOrdered By: Sobia Sarah on 11-26-2024 Eosinophils/100 WBC (Bld) 0.0 % 0-5 [facility] Erythrocyte distribution wid th ratioOrdered By: Sobia Sarah on 11-26-2024 Erythrocyte distribution width (RBC) [Ratio] 11.6 % 11.6-14.6 [facility] Erythrocyte distribution wid th standard deviationOrdered By: Sobia Sarah on 11-26-2024 Erythrocyte distribution width (RBC) [Ratio] 37.2 fl 35.1-43.9 [facility] Hematocrit Auto (Bld) [Volum e fraction]Ordered By: Sobia Sarah on 11-26-2024 Hematocrit (Bld) [Volume fraction] 38.5 % 37-47 [facility] Hemoglobin measurementOrdere d By: Sobia Sarah on 11-26-2024 Hemoglobin (Bld) [Mass/Vol] 12.8 g/dL 12.0-15.0 [facility] Immature granulocytes/100 WB C Auto (Bld)Ordered By: Sobia Sarah on 11-26-2024 Immature granulocytes/100 WBC (Bld) 0.300 % 0.0-0.9 [facility] Comment on above: IG% - Immature Granu locytes (promyelocytes, myelocytes and metamyelocytes) > 1% indicates that a LEFT SHIFT is Present. Iron measurement (mass/mass) Ordered By: Sobia Sarah on 11-26-2024 Iron (Unsp spec) [Mass/Mass] 37 ug/dL Low 50-170 [facility] Iron+Iron Binding Capacityon 11-26-2024 Iron [Mass/Vol] 37 ug/dL Low 50-170 [facility] Comment on above: Performed By: #### L 3400.3800, L503.6030 #### [facility] [address] [place], [address] IRON SATURATION 8.0 Low 13-59 [facility] Comment on above: Performed By: #### L 3400.3800, L503.6030 #### [facility] [address] [place], [address] TIBC 450 ug/dL Normal 250-450 [facility] Comment on above: Performed By: #### L 3400.3800, L503.6030 #### [facility] [address] [place], [address] UIBC 413 ug/dL Normal 228-428 [facility] Comment on above: Performed By: #### L 3400.3800, L503.6030 #### [facility] [place], [address] MCV (mean corpuscular volume ) determinationOrdered By: Sobia Sarah on 11-26-2024 MCV (RBC) [Entitic vol] 86.9 fL 81-[address] [facility] Mean corpuscular hemoglobin (MCH) determinationOrdered By: Sobia Sarah on 11-26-2024 MCH (RBC) [Entitic mass] 28.9 pg 27.0-32.0 [facility] Mean corpuscular hemoglobin concentration (MCHC) determinationOrdered By: Sobia Sarah on 11-26-2024 MCHC (RBC) [Mass/Vol] 33.2 g/dL 32-36 [facility] Mean platelet volume determi nationOrdered By: Sobia Sarah on 11-26-2024 Platelet mean volume (Bld) [Entitic vol] 9.8 fL 6.2-12.0 [facility] Monocyte percentageOrdered B y: Sobia Sarah on 11-26-2024 Monocytes/100 WBC (Bld) 1.5 % 0-[address] [facility] Neutrophil percentageOrdered By: Sobia Sarah on 11-26-2024 Neutrophils/100 WBC (Bld) 91.7 % High 47-70 [facility] No Panel InformationOrdered By: Sobia Sarah on 11-26-2024 Unsaturated Iron Binding Capacity 413 ug/dL 228-428 [facility] Nucleated red blood cell per centageOrdered By: Sobia Sarah on 11-26-2024 Nucleated RBC/100 WBC (Bld) [Ratio] 0 % 0-5 [facility] Platelet countOrdered By: Fer Sarah on 11-26-2024 Platelets (Bld) [#/Vol] 246 10*3/uL 150-450 [facility] RBC Auto (Bld) [#/Vol]Ordere d By: Sobia Sarah on 11-26-2024 RBC (Bld) [#/Vol] 4.43 10*6/uL 4.2-5.4 [facility] Serum or plasma iron saturat ion measurement (mass fraction)Ordered By: Sobia Sarah on 11-26-2024 Iron saturation [Mass fraction] 8.0 % Low 13-59 [facility] TransferrinOrdered By: Sobia Sarah on 11-26-2024 Transferrin [Mass/Vol] 392 mg/dL High 192-364 [facility] Comment on above: Performed at: [address] [id number] Director: Pravin Pandya PhD, Phone: [phone] White blood cell (WBC) count Ordered By: Sobia Sarah on 11-26-2024 WBC (Bld) [#/Vol] 11.4 10*3/uL High 4.4-11.0 [facility] CNPNon 11-16-2024 CNPN Normal [facility] Potassiumon 11-16-2024 Potassium [Moles/Vol] 4.2 mmol/L Normal 3.3-5.1 [facility] Comment on above: Order Comment: Order Date: 07/01/24Order Info: 2823-3 - K Performed By: #### L 3300.6750 #### [facility] [address] [place] [address], [address] Potassium measurement (mass/ volume)Ordered By: Carly Callejas on 11-16-2024 Potassium (Unsp spec) [Mass/Vol] 4.2 mmol/L 3.3-5.1 [facility] Absolute lymphocyte countOrd ered By: Harleen Nielson on 11-13-2024 Lymphocytes Auto (Unsp spec) [#/Vol] 1.31 10*3/uL 0.83-4.51 [facility] Absolute neutrophil countOrd ered By: Harleen Nielson on 11-13-2024 Neutrophils (Bld) [#/Vol] 3.5 10*3/uL 2.0-7.7 [facility] Anion gap in Serum or Plasma Ordered By: Harleen Nielson on 11-13-2024 Anion gap [Moles/Vol] 10 mmol/L 5-15 [facility] Automated lymphocyte count a s percentage of total leukocytesOrdered By: Harleen Nielson on 11-13-2024 Lymphocytes/100 WBC Auto (Unsp spec) 24.5 % 19-41 [facility] BUN/creatinine ratioOrdered By: Harleen Nielson on 11-13-2024 Urea nitrogen/Creatinine [Mass ratio] 14.7 mg/mg 04-25 [facility] Basic Metabolic Profile (BMP )on 11-13-2024 BUN/CRE 14.7 RATIO Normal 04-25 [facility] Comment on above: Performed By: #### L 503.0106, L100.9950, L100.0100, L503.6030, L506.1001, L501.9520, L506.0400 #### [facility] [address] [place], [address] Calcium [Mass/Vol] 9.2 mg/dL Normal 7.6-11.0 [facility] Comment on above: Performed By: #### L 503.0106, L100.9950, L100.0100, L503.6030, L506.1001, L501.9520, L506.0400 #### [facility] [address] [place], [address] Chloride [Moles/Vol] 106 mmol/L Normal 98-108 [facility] Comment on above: Performed By: #### L 503.0106, L100.9950, L100.0100, L503.6030, L506.1001, L501.9520, L506.0400 #### [facility] [address] [place], [address] CO2 [Moles/Vol] 21.9 mmol/L Normal 21.0-32.0 [facility] Comment on above: Performed By: #### L 503.0106, L100.9950, L100.0100, L503.6030, L506.1001, L501.9520, L506.0400 #### [facility] [address] [place], [address] Creatinine [Mass/Vol] 0.71 mg/dL Normal 0.70-1.20 [facility] Comment on above: Performed By: #### L 503.0106, L100.9950, L100.0100, L503.6030, L506.1001, L501.9520, L506.0400 #### [facility] [address] [place], [address] ECRCL 98.30 ml/min Normal 50-250 [facility] Comment on above: Performed By: #### L 503.0106, L100.9950, L100.0100, L503.6030, L506.1001, L501.9520, L506.0400 #### [facility] [address] [place], [address] GAP 10 Normal 5-15 [facility] Comment on above: Performed By: #### L 503.0106, L100.9950, L100.0100, L503.6030, L506.1001, L501.9520, L506.0400 #### [facility] [address] [place], [address] GFR/1.73 sq M.predicted among non-blacks MDRD (S/P/Bld) [Vol rate/Area] 124 mL/min/{1.73_m2} Normal >60 [facility] Comment on above: Result Comment: mL/m in/1.73m2 CKD-EPI Creatinine Equation (2020) Performed By: #### L 503.0106, L100.9950, L100.0100, L503.6030, L506.1001, L501.9520, L506.0400 #### [facility] [address] [place], [address] Glucose [Mass/Vol] 107 mg/dL High 70-99 [facility] Comment on above: Performed By: #### L 503.0106, L100.9950, L100.0100, L503.6030, L506.1001, L501.9520, L506.0400 #### [facility] [address] [place], [address] Potassium [Moles/Vol] 3.8 mmol/L Normal 3.3-5.1 [facility] Comment on above: Performed By: #### L 503.0106, L100.9950, L100.0100, L503.6030, L506.1001, L501.9520, L506.0400 #### [facility] [address] [place], [address] Sodium [Moles/Vol] 137 mmol/L Normal 133-145 [facility] Comment on above: Performed By: #### L 503.0106, L100.9950, L100.0100, L503.6030, L506.1001, L501.9520, L506.0400 #### [facility] [address] [place], [address] Urea nitrogen [Mass/Vol] 10 mg/dL Normal 4-19 [facility] Comment on above: Performed By: #### L 503.0106, L100.9950, L100.0100, L503.6030, L506.1001, L501.9520, L506.0400 #### [facility] [address] [place], [address] Basophil percentageOrdered B y: Harleen Nielson on 11-13-2024 Basophils/100 WBC (Bld) 0.2 % 0-[address] [facility] Bilirubin Test strip Ql (U)O rdered By: Harleen Nielson on 11-13-2024 Bilirubin Ql (U) Negative Negative [facility] CBC W/Diff, Automatedon 11-04-2024 Absolute Lymph 1.31 X10 3/uL Normal 0.83-4.51 [facility] Comment on above: Performed By: #### L 503.0106, L100.9950, L100.0100, L503.6030, L506.1001, L501.9520, L506.0400 #### [facility] [address] [place], [address] Absolute Neut 3.5 X10 3/uL Normal 2.0-7.7 [facility] Comment on above: Performed By: #### L 503.0106, L100.9950, L100.0100, L503.6030, L506.1001, L501.9520, L506.0400 #### [facility] [address] [place], [address] Basophils/100 WBC (Bld) 0.2 % Normal 0-[address] [facility] Comment on above: Performed By: #### L 503.0106, L100.9950, L100.0100, L503.6030, L506.1001, L501.9520, L506.0400 #### [facility] [address] [place], [address] Eosinophils/100 WBC (Bld) 0.0 % Normal 0-5 [facility] Comment on above: Performed By: #### L 503.0106, L100.9950, L100.0100, L503.6030, L506.1001, L501.9520, L506.0400 #### [facility] [address] [place], [address] Erythrocyte distribution width (RBC) [Ratio] 11.7 % Normal 11.6-14.6 [facility] Comment on above: Performed By: #### L 503.0106, L100.9950, L100.0100, L503.6030, L506.1001, L501.9520, L506.0400 #### [facility] [address] [place], [address] Hematocrit (Bld) [Volume fraction] 36.8 % Low 37-47 [facility] Comment on above: Performed By: #### L 503.0106, L100.9950, L100.0100, L503.6030, L506.1001, L501.9520, L506.0400 #### [facility] [address] [place], [address] Hemoglobin (Bld) [Mass/Vol] 12.4 g/dL Normal 12.0-15.0 [facility] Comment on above: Performed By: #### L 503.0106, L100.9950, L100.0100, L503.6030, L506.1001, L501.9520, L506.0400 #### [facility] [address] [place], [address] IG% 0.400 Normal 0.0-0.9 [facility] Comment on above: Result Comment: IG% - Immature Granulocytes (promyelocytes, myelocytes and metamyelocytes) > 1% indicates that a LEFT SHIFT is Present. Performed By: #### L 503.0106, L100.9950, L100.0100, L503.6030, L506.1001, L501.9520, L506.0400 #### [facility] [address] [place], [address] Lymphocytes/100 WBC (Bld) 24.5 % Normal 19-41 [facility] Comment on above: Performed By: #### L 503.0106, L100.9950, L100.0100, L503.6030, L506.1001, L501.9520, L506.0400 #### [facility] [address] [place], [address] MCH (RBC) [Entitic mass] 28.9 pg Normal 27.0-32.0 [facility] Comment on above: Performed By: #### L 503.0106, L100.9950, L100.0100, L503.6030, L506.1001, L501.9520, L506.0400 #### [facility] [address] [place], [address] MCHC (RBC) [Mass/Vol] 33.7 g/dL Normal 32-36 [facility] Comment on above: Performed By: #### L 503.0106, L100.9950, L100.0100, L503.6030, L506.1001, L501.9520, L506.0400 #### [facility] [address] [place], [address] MCV (RBC) [Entitic vol] 85.8 fL Normal 81-[address] [facility] Comment on above: Performed By: #### L 503.0106, L100.9950, L100.0100, L503.6030, L506.1001, L501.9520, L506.0400 #### [facility] [address] [place], [address] Monocytes/100 WBC (Bld) 9.9 % Normal 0-10 [facility] Comment on above: Performed By: #### L 503.0106, L100.9950, L100.0100, L503.6030, L506.1001, L501.9520, L506.0400 #### [facility] [address] [place], [address] Neutrophils/100 WBC (Bld) 65.0 % Normal 47-70 [facility] Comment on above: Performed By: #### L 503.0106, L100.9950, L100.0100, L503.6030, L506.1001, L501.9520, L506.0400 #### [facility] [address] [place], [address] Nucleated RBC (Bld) [#/Vol] 0 10*3/uL Normal 0-5 [facility] Comment on above: Performed By: #### L 503.0106, L100.9950, L100.0100, L503.6030, L506.1001, L501.9520, L506.0400 #### [facility] [address] [place], [address] Platelet mean volume (Bld) [Entitic vol] 9.6 fL Normal 6.2-12.0 [facility] Comment on above: Performed By: #### L 503.0106, L100.9950, L100.0100, L503.6030, L506.1001, L501.9520, L506.0400 #### [facility] [address] [place], [address] Platelets (Bld) [#/Vol] 194 10*3/uL Normal 150-450 [facility] Comment on above: Performed By: #### L 503.0106, L100.9950, L100.0100, L503.6030, L506.1001, L501.9520, L506.0400 #### [facility] [address] [place], [address] RBC (Bld) [#/Vol] 4.29 10*6/uL Normal 4.2-5.4 [facility] Comment on above: Performed By: #### L 503.0106, L100.9950, L100.0100, L503.6030, L506.1001, L501.9520, L506.0400 #### [facility] [address] [place], [address] RDW SD 36.3 fl Normal 35.1-43.9 [facility] Comment on above: Performed By: #### L 503.0106, L100.9950, L100.0100, L503.6030, L506.1001, L501.9520, L506.0400 #### [facility] [address] [place], [address] WBC (Bld) [#/Vol] 5.3 10*3/uL Normal 4.4-11.0 [facility] Comment on above: Performed By: #### L 503.0106, L100.9950, L100.0100, L503.6030, L506.1001, L501.9577, L506.0400 #### [facility] [address] [place], [address] Carbon dioxide, total [Moles /volume] in Central venous bloodOrdered By: Harleen Nielson on 11-13-2024 CO2 [Moles/Vol] 21.9 mmol/L 21.0-32.0 [facility] Chloride assayOrdered By: Mirela Nielson on 11-13-2024 Chloride [Moles/Vol] 106 mmol/L 98-108 [facility] Emergency Department Summary on 11-13-2024 Emergency Department Summary [facility] Medical Records Department [address] [place] [address] Emergency Department Summary 11/13/24 MR#: [id number] Acct: [id number] Name: MIKAYLA BERTRAND Rep #: [id number] : 2000 24 From: Jani Barrera PCP: Dr. Carly Callejas MD Status:DEP ER Location: ED HPI History of Present Illness Chief Complaint: Diarrhea Narrative Narrative: 24-year-old female with PMH of POTS, GERD, gastroparesis, hypokalemia, and recent diagnosis of hereditary angioedema (HAE) presents with a typical flare of her symptoms which is abdominal bloating, diarrhea, and bilateral leg swelling. The abdominal bloating and diarrhea started this morning. She has had approximately 9 episodes of loose nonbloody stools. She has nausea but cannot keep down fluids and is not vomiting but she feels dehydrated. Both lower legs have been swollen over the last 3 days but have improved now. She states she was being worked up for autoimmune issues and was recently diagnosed with hereditary angioedema at [facility]. She was told this is causing her symptoms. She was started on any medication 12 days ago called Yuliana and is supposed to be reassessed in a few months. She was also supposed to have a rescue medication to take for symptom flares but it is not covered by insurance. Patient states she was diagnosed with gastroparesis but now that she has been diagnosed with HAE they think her abdominal symptoms may be from gastric/intestinal swelling. [facility] Medical History (Updated 11/13/24 @ 21:58 by JARED Hancock) Hereditary angioedema Tortuous colon Autoimmune gastritis Gastroparesis Epilepsy POTS (postural orthostatic tachycardia syndrome) Constipation Elevated transaminase level Narcolepsy GERD (gastroesophageal reflux disease) Headaches, cluster Environmental allergies Medical History no medical history Home Medications ???Medication ???Instructions ???Recorded ???Last Taken ???Type methylphenidate HCl 18 mg 18 mg PO DAILY 05/09/21 06/09/23 H istory tablet,extended release 24 hr (Concerta) propranolol 60 mg capsule,24 60 mg PO DAILY 09/12/23 Unknown Hi story hr,extended release gabapentin 100 mg capsule 100 mg PO PRN nerve pain 05/24/24 Unknown History linaclotide 290 mcg capsule 290 mcg PO QDAY 05/24/24 Unknown H istory (Linzess) pyridostigmine bromide 60 mg tablet 60 mg PO TID 05/24/24 Unknown H istory famotidine 20 mg tablet 20 mg PO BID 08/13/24 Unknown Hist ory potassium chloride 10 mEq 10 meq PO QDAY 08/13/24 Unknown Hi story capsule,extended release berotralstat 110 mg capsule 110 mg PO DAILY 11/13/24 Unknown H istory (Orladeyo) ketorolac 10 mg tablet 10 mg PO Q6H PRN PRN pain 11/13/24 Unknown History Allergy/AdvReac Type Severity Reaction Status Date / Time cefdinir Allergy Intermediate Swelling Verified 11/13/24 20:19 diphenhydramine (From Allergy Intermediate Other Verified 11/13/24 20:19 Benadryl) prochlorperazine (From Allergy Intermediate Other Verified 11/13/24 20:19 Compazine) gluten Allergy Upset Verified 11/13/24 20:19 Stomach latex Allergy Hives Verified 11/13/24 20:19 midazolam HCl (From Versed) Allergy Other Verified 11/13/24 20:19 Penicillins Allergy Hives Verified 11/13/24 20:19 haloperidol (From Haldol) AdvReac agitation Verified 11/13/24 20:19 Family History Father Migraine Mother Migraine Other Anxiety Asthma Hypertension Surgical History History of bilateral salpingectomy History of foot surgery History of tonsillectomy and adenoidectomy Surgical History no surgical history Social History household members: spouse housing: house number of children: 0 current occupational status: employed current occupation: [employer] Smoking Status: Never smoker alcohol intake: never substance use type: does not use what type of physical activity do you participate in: walking and weight training frequency: 3-4 times per week duration: 30-45 minutes/day additional social history: - Alvarez ROS ROS ED ROS Narrative Constitutional: Negative for fever, chills, malaise. CVS: Negative for chest pain. Respiratory: Negative for shortness of breath. GI: Negative for abdominal pain, diarrhea. : Negative for dysuria, hematuria or frequency. EXAM Physical Exam Narrative Exam Narrative: CONST: Patient sitting in no acute distress. EYES: Normal inspection. ENT: Normal inspection, moist mucous membranes. NECK: Normal inspection. RESP: No respiratory distress, CTAB. CVS: Regular rate and rhythm, no murmur, no gallop. ABD: Soft with mild periumbilical tenderness, no gua (more content not included)... Normal [facility] Eosinophil percentageOrdered By: Harleen Nielson on 11-13-2024 Eosinophils/100 WBC (Bld) 0.0 % 0-5 [facility] Erythrocyte distribution wid th ratioOrdered By: Harleen Nielson on 11-13-2024 Erythrocyte distribution width (RBC) [Ratio] 11.7 % 11.6-14.6 [facility] Erythrocyte distribution wid th standard deviationOrdered By: Harleen Nielson on 11-13-2024 Erythrocyte distribution width (RBC) [Ratio] 36.3 fl 35.1-43.9 [facility] Glomerular filtration rate ( GFR) estimation/1.73 sq m using serum, plasma, or whole bOrdered By: Harleen Nielson on 11-13-2024 GFR/1.73 sq M.predicted among non-blacks MDRD (S/P/Bld) [Vol rate/Area] 124 mL/min/{1.73_m2} >60 [facility] Comment on above: mL/min/1.73m2 CKD-EP I Creatinine Equation (2020) Hematocrit Auto (Bld) [Volum e fraction]Ordered By: Harleen Nielson on 11-13-2024 Hematocrit (Bld) [Volume fraction] 36.8 % Low 37-47 [facility] Hemoglobin measurementOrdere d By: Harleen Nielson on 11-13-2024 Hemoglobin (Bld) [Mass/Vol] 12.4 g/dL 12.0-15.0 [facility] Immature granulocytes/100 WB C Auto (Bld)Ordered By: Harleen Nielson on 11-13-2024 Immature granulocytes/100 WBC (Bld) 0.400 % 0.0-0.9 [facility] Comment on above: IG% - Immature Granu locytes (promyelocytes, myelocytes and metamyelocytes) > 1% indicates that a LEFT SHIFT is Present. Ketones Test strip Ql (U)Ord ered By: Harleen Nielson on 11-13-2024 Ketones Ql (U) Negative Negative [facility] MCV (mean corpuscular volume ) determinationOrdered By: Harleen Nielson on 11-13-2024 MCV (RBC) [Entitic vol] 85.8 fL 81-[address] [facility] Mean corpuscular hemoglobin (MCH) determinationOrdered By: Harleen Nielson on 11-13-2024 MCH (RBC) [Entitic mass] 28.9 pg 27.0-32.0 [facility] Mean corpuscular hemoglobin concentration (MCHC) determinationOrdered By: Harleen Nielson on 11-13-2024 MCHC (RBC) [Mass/Vol] 33.7 g/dL 32-36 [facility] Mean platelet volume determi nationOrdered By: Harleen Nielson on 11-13-2024 Platelet mean volume (Bld) [Entitic vol] 9.6 fL 6.2-12.0 [facility] Microscopic analysis of urin e for red blood cells (RBC)Ordered By: Harleen Nielson on 11-13-2024 Microscopic analysis of urine for red blood cells (RBC) 0 SEEN /hpf 0-5 [facility] Monocyte percentageOrdered B y: Harleen Nielson on 11-13-2024 Monocytes/100 WBC (Bld) 9.9 % 0-[address] [facility] Mucus LM Ql (Urine sed)Order ed By: Harleen Nielson on 11-13-2024 Mucus Ql (Urine sed) 0 SEEN /hpf [facility] Neutrophil percentageOrdered By: Harleen Nielson on 11-13-2024 Neutrophils/100 WBC (Bld) 65.0 % 47-70 [facility] Nitrite Test strip Ql (U)Ord ered By: Harleen Nielson on 11-13-2024 Nitrite Ql (U) Negative Negative [facility] Nucleated red blood cell per centageOrdered By: Harleen Nielson on 11-13-2024 Nucleated RBC/100 WBC (Bld) [Ratio] 0 % 0-5 [facility] Platelet countOrdered By: Mirela Nielson on 11-13-2024 Platelets (Bld) [#/Vol] 194 10*3/uL 150-450 [facility] Potassium measurement (mass/ volume)Ordered By: Harleen Nielson on 11-13-2024 Potassium (Unsp spec) [Mass/Vol] 3.8 mmol/L 3.3-5.1 [facility] ,Urineon 11-13-2024 Beta HCG ( test) Ql (U) Negative Normal [facility] Comment on above: Result Comment: Very dilute urine specimens, as indicated by a low specific gravity, may not contain scheduling representative levels of hCG. If is still suspected, a first morning urine specimen should be collected 48 hours later and tested. Performed By: #### L 503.0106, L100.9950, L100.0100, L503.6030, L506.1001, L501.9520, L506.0400 #### [facility] [place] [address], [address] Protein Test strip Ql (U)Ord ered By: Harleen Nielson on 11-13-2024 Protein Ql (U) Negative Negative [facility] RBC Auto (Bld) [#/Vol]Ordere d By: Harleen Nielson on 11-13-2024 RBC (Bld) [#/Vol] 4.29 10*6/uL 4.2-5.4 [facility] Serum creatinine measurement (mass/volume)Ordered By: Harleen Nielson on 11-13-2024 Creatinine [Mass/Vol] 0.71 mg/dL 0.70-1.20 [facility] Serum glucose measurement (m ass/volume)Ordered By: Harleen Nielson on 11-13-2024 Glucose [Mass/Vol] 107 mg/dL High 70-99 [facility] Serum or plasma calcium sriram urement (mass/volume)Ordered By: Harleen Nielson on 11-13-2024 Calcium [Mass/Vol] 9.2 mg/dL 7.6-11.0 [facility] Serum or plasma urea nitroge n measurement (mass/volume)Ordered By: Harleen Nielson on 11-13-2024 Urea nitrogen [Mass/Vol] 10 mg/dL 4-19 [facility] Sodium levelOrdered By: Harleen Nielson on 11-13-2024 Sodium [Moles/Vol] 137 mmol/L 133-145 [facility] Squamous epithelial cells de tection in urine sediment by light microscopyOrdered By: Harleen Nielson on 11-13-2024 Epithelial cells.squamous LM Ql (Urine sed) 0-5 SEEN /hpf 11-13 [facility] Urinalysis, Completeon 11-13 EPI,SQUAMOUS 0-5 SEEN Normal 11-13 [facility] Comment on above: Order Comment: CLEAN CATCH Performed By: #### L 503.0106, L100.9950, L100.0100, L503.6030, L506.1001, L501.9520, L506.0400 #### [facility] [address] [place], [place], [id number] WBC 0-5 SEEN Normal 0-5 [facility] Comment on above: Order Comment: CLEAN CATCH Performed By: #### L 503.0106, L100.9950, L100.0100, L503.6030, L506.1001, L501.9520, L506.0400 #### [facility] [address] [place], [address] BACTERIA 0 SEEN Normal None Seen [facility] Comment on above: Order Comment: CLEAN CATCH Performed By: #### L 503.0106, L100.9950, L100.0100, L503.6030, L506.1001, L501.9520, L506.0400 #### [facility] [address] [place], [address] Mucus Ql (Urine sed) 0 SEEN Normal [facility] Comment on above: Order Comment: CLEAN CATCH Performed By: #### L 503.0106, L100.9950, L100.0100, L503.6030, L506.1001, L501.9520, L506.0400 #### [facility] [address] [place], [address] RBC 0 SEEN Normal 0-5 [facility] Comment on above: Order Comment: CLEAN CATCH Performed By: #### L 503.0106, L100.9950, L100.0100, L503.6030, L506.1001, L501.9520, L506.0400 #### [facility] [address] [place], [address] Urine clarityOrdered By: Marcia Nielson on 11-13-2024 Clarity (U) Clear Clear [facility] Urine color determinationOrd ered By: Harleen Nielson on 11-13-2024 Color (U) Yellow Yellow [facility] Urine glucose detectionOrder ed By: Harleen Nielson on 11-13-2024 Glucose Ql (U) Normal mg/dl Normal [facility] Urine leukocyte esterase det ection by dipstickOrdered By: Harleen Nielson on 11-13-2024 Leukocyte esterase Test strip Ql (U) Negative Negative [facility] Urine pHOrdered By: Harleen gonzalez on 11-13-2024 pH (U) 6.5 [pH] 5.0 - 8.0 [facility] Urine testOrdered By: Harleen Nielson on 11-13-2024 HCG ( test) Ql (U) Negative [facility] Comment on above: Very dilute urine sp ecimens, as indicated by a low specificgravity, may not contain scheduling representative levels of hCG. If is still suspected, a first morning urinespecimen should be collected 48 hours later and tested. Urine sediment bacteria coun t by microscopy (number/high power field)Ordered By: Harleen Nielson on 11-13-2024 Bacteria LM.HPF (Urine sed) [#/Area] 0 /[HPF] None Seen [facility] Urine specific gravity measu rementOrdered By: Harleen Nielson on 11-13-2024 Specific gravity (U) [Rel density] 1.010 1.002-1.030 [facility] Urine urobilinogen measureme ntOrdered By: Harleen Nielson on 11-13-2024 Urobilinogen Ql (U) Normal mg/dl Normal [facility] White blood cell (WBC) count Ordered By: Harleen Nielson on 11-13-2024 WBC (Bld) [#/Vol] 5.3 10*3/uL 4.4-11.0 [facility] White blood cell countOrdere d By: Harleen Nielson on 11-13-2024 White blood cell count 0-5 SEEN /hpf 0-5 [facility] ANTI-C1Q ANTIBODY IGGon ANTI-C1Q AB IGG 1 Units Normal 0-19 [facility] Comment on above: Order Comment: Speci men Type: BLOOD SPECIMENOrdering Facility: [facility] Address: [address] [place] [address] Result Comment: INTE RPRETATION: Anti-C1q Antibody, IgG0-19 Units...... [id number] Units......[id number] Units or greater.....PositiveThe presence of the anti-C1q IgG antibody may be associated withincreased risk of lupus nephritis or with systemic lupuserythematosus (SLE) global activity. Anti-C1q antibodies are notspecific for SLE; strong clinical correlation with disease isrecommended.This test was developed and its performance characteristicsdetermined by [employer]. It has not been cleared orapproved by the [place] Food and Drug Administration. This test wasperformed in a CLIA certified laboratory and is intended forclinical purposes.Performed By: [facility] [id number] [place] [id number] Director: Marcus Rosado MD, PhDCLIA Number: [id number] Performed By: #### A [id number] ####[facility] [id number] [place] [address] BETA 2 GLYCOPROTEIN 1, IGAon 11-04-2024 BETA 2 GLYCOPROTEIN 1, IGA <10 Normal <=20 [facility] Comment on above: Order Comment: Speci men Type: BLOOD SPECIMENOrdering Facility: [facility] Address: [address] [place] [address] Result Comment: Perf ormed By: [facility] [address] [place] [address] [id number] Director: Marcus Rosado MD, PhDCLIA Number: [id number] Performed By: #### B ETAA ####[facility] [id number] [place] [address] BETA 2 GLYCOPROTEIN, IGGon 0 11-04-2024 Beta 2 glycoprotein 1 IgG IA Qn <9 Normal <20 [facility] Comment on above: Order Comment: Speci men Type: BLOOD SPECIMENOrdering Facility: [facility] Address: [address] [place] [address] Result Comment: <20 SGU [id number] SGU Low Positive>80 SGU High PositiveThese results were obtained with the [email or web address] QUANTA Lite B2 GPI IgG INGRID. B2 GPI IgG values obtained with different manufacturers' assay methods may not be used interchangeably. The magnitude of the reported IgG levels cannot be correlated to an endpoint titer. Performed By: #### C ARDIM, 5076-5, BETA2G, CARDIG, BETA2M ####[facility] LABCLIA [id number] [place] [address] [place] BETA 2 GLYCOPROTEIN, IGMon 0 11-04-2024 Beta 2 glycoprotein 1 IgM IA Qn <9 Normal <20 [facility] Comment on above: Order Comment: Speci men Type: BLOOD SPECIMENOrdering Facility: [facility] Address: [address] [place] [address] Result Comment: <20 [facility] [id number] [facility] Low Positive>80 [facility] High positiveThese results were obtained with the [employer] Data[employer] Lite B2 GPI IgM INGRID. B2 GPI IgM values obtained with different manufacturers' assay methods may not be used interchangeably. The magnitude of the reported IgM levels cannot be correlated to an endpoint titer. Performed By: #### C SUZANNEM, 5076-5, BETA2G, CARDIG, BETA2M ####[facility] LABCLIA [id number] [place] [address] [place] [facility] BLOOD TB SCREENon 11-04-2024 M. tuberculosis tuberculin stim IFN-g Ql (Bld) Negative Normal [facility] Comment on above: Order Comment: Speci men Type: BLOOD SPECIMENOrdering Facility: [facility] [facility] Address: [address] [place] [address] Performed By: #### I NFTBP ####[facility] LABIA [id number] [place] [address] [place] MITOGEN MINUS NIL 8.88 IU/mL Normal >=0.50 [facility] Comment on above: Order Comment: Speci men Type: BLOOD SPECIMENOrdering Facility: [facility] Address: [address] [place] [address] Performed By: #### I NFTBP ####[facility] LABCLIA [id number] [place] [address] [place] TB GAMMA INTERPRETATION Normal [facility] Comment on above: Order Comment: Speci men Type: BLOOD SPECIMENOrdering Facility: [facility] Address: [address] [place] [address] Performed By: #### I NFTBP ####[facility] LABCLIA [id number] [place] [address] [place] TB NIL 0.01 IU/mL Normal <=8.00 [facility] Comment on above: Order Comment: Speci men Type: BLOOD SPECIMENOrdering Facility: [facility] Address: [address] [place] [address] Performed By: #### I NFTBP ####[facility] LABCLIA [id number] [place] [address] [place] TB1 AG MINUS NIL 0.00 IU/mL Normal <0.35 [facility] Comment on above: Order Comment: Speci men Type: BLOOD SPECIMENOrdering Facility: [facility] Address: [address] [place] [address] Performed By: #### I NFTBP ####[facility] LABIA [id number] [address] [place] TB2 AG MINUS NIL 0.00 IU/mL Normal <0.35 [facility] Comment on above: Order Comment: Speci men Type: BLOOD SPECIMENOrdering Facility: [facility] Address: [address] [place] [address] Performed By: #### I NFTBP ####[facility] [id number] [place] [address] [place] C3 SerPl-mCncon 11-04-2024 Complement C3 [Mass/Vol] 128 mg/dL Normal 86-166 [facility] Comment on above: Order Comment: Speci men Type: BLOOD SPECIMENOrdering Facility: [facility] Address: [address] [place] [address] Performed By: #### 4 485-9, 40136-9, 1988-5, 4498-2 ####[facility] LABIA [id number] [place] [address] [place] C4 SerPl-mCncon 11-04-2024 Complement C4 [Mass/Vol] 15 mg/dL Normal 13-46 [facility] Comment on above: Order Comment: Speci men Type: BLOOD SPECIMENOrdering Facility: [facility] Address: [address] [place] [address] Performed By: #### 4 485-9, 61908-3, 1988-5, 4498-2 ####[facility] LABIA [id number] [address] CARDIOLIPIN IGG ABSon 2024 Cardiolipin IgG IA Qn (S) <9.0 Normal <15.0 [facility] Comment on above: Order Comment: Speci men Type: BLOOD SPECIMENOrdering Facility: [facility] Address: [address] [place] [address] Result Comment: <15 GPL [id number] GPL Indeterminate>20 GPL PositiveThe following results were obtained with the [employer] QUANTA Lite KAMRON IgG III INGRID. Cardiolipin IgG values obtained with the different manufacturers' assay methods may not be used interchangeably. The magnitude of the reported IgG levels cannot be correlated to an endpoint titer. Performed By: #### 5 076-5CINDA CARDIM ####[facility] LABIA [id number] [address] Performed By: #### C KEATON, 5076-5, CINDA MICHEL BETA2M ####[facility] LABIA [id number] [address] CARDIOLIPIN IGM ABSon 2024 Cardiolipin IgM IA Qn (S) <9.0 Normal <12.5 [facility] Comment on above: Order Comment: Speci men Type: BLOOD SPECIMENOrdering Facility: [facility] Address: [address] [place] [address] Result Comment: <12. 5 MPL Acojdzhf81.5-20 MPL Indeterminate>20 MPL PositiveThe following results were obtained with the [employer]ova QUANTA Lite KAMRON IgM III INGRID. Cardiolipin IgM values obtained with the different manufacturers' assay methods may not be used interchangeably. The magnitude of the reported IgM levels cannot be correlated to an endpoint titer.??? Performed By: #### 5 076-5, CARDIG, CARDIM ####[facility] LABCLIA [id number] [facility] [place] [address] [address] [place] Performed By: #### C ARREGINALDO, 5076-5, BETA2G, CARDIG, BETA2M ####[facility] LABCLIA [id number] [facility] [address] [place] [address] [place] CBC W Auto Differential pane l (Bld)on 11-04-2024 Basophils (Bld) [#/Vol] 10*3/uL Normal <0.11 [facility] Comment on above: Order Comment: Speci men Type: BLOOD SPECIMENOrdering Facility: [facility] Address: [address] [place] [address] Performed By: #### 5 7021-8, 7 ####[facility] LABCLIA [id number] [address], [address] [place] Basophils/100 WBC (Bld) 0.2 % Normal [facility] Comment on above: Order Comment: Speci men Type: BLOOD SPECIMENOrdering Facility: [facility] Address: [address] [place] [address] Performed By: #### 5 7021-8, 7 ####[facility] LABCLIA [id number] [facility] [address] [place] [address] [place] Differential cell count method Nom (Bld) Auto Normal [facility] Comment on above: Order Comment: Speci men Type: BLOOD SPECIMENOrdering Facility: [facility] Address: [address] [place] [address] Performed By: #### 5 7021-8, 7 ####[facility] LABCLIA [id number] [facility] [address] [place] [address] [place] Eosinophils (Bld) [#/Vol] 10*3/uL Normal <0.46 [facility] Comment on above: Order Comment: Speci men Type: BLOOD SPECIMENOrdering Facility: [facility] Address: [address] [place] [address] Performed By: #### 5 7021-8, 4536-7 ####[facility] LABIA [id number] [place] [address] [place] Eosinophils/100 WBC (Bld) 0.0 % Normal [facility] Comment on above: Order Comment: Speci men Type: BLOOD SPECIMENOrdering Facility: [facility] Address: [address] [place] [address] Performed By: #### 5 7021-8, 4536-7 ####[facility] LABIA [id number] [place] [address] [place] Erythrocyte distribution width (RBC) [Ratio] 11.9 % Normal 11.5-15.0 [facility] Comment on above: Order Comment: Speci men Type: BLOOD SPECIMENOrdering Facility: [facility] Address: [address] [place] [address] Performed By: #### 5 7021-8, 4536-7 ####[facility] LABIA [id number] [place] [address] [place] Hematocrit (Bld) [Volume fraction] 38.1 % Normal 36.0-46.0 [facility] Comment on above: Order Comment: Speci men Type: BLOOD SPECIMENOrdering Facility: [facility] Address: [address] [place] [address] Performed By: #### 5 7021-8, 4536-7 ####[facility] LABIA [id number] [place] [id number] [place] Hemoglobin (Bld) [Mass/Vol] 12.7 g/dL Normal 11.5-15.5 [facility] Comment on above: Order Comment: Speci men Type: BLOOD SPECIMENOrdering Facility: [facility] Address: [address] [place] [address] Performed By: #### 5 7021-8, 7-7 ####[facility] LABCLIA [id number] [address] [place] [address] [place] Immature granulocytes (Bld) [#/Vol] 10*3/uL Normal <0.10 [facility] Comment on above: Order Comment: Speci men Type: BLOOD SPECIMENOrdering Facility: [facility] Address: [address] [place] [address] Performed By: #### 5 7021-8, 4536-7 ####[facility] LABCLIA [id number] [address], [facility]95 [place] Immature granulocytes/100 WBC (Bld) 0.4 % Normal [facility] Comment on above: Order Comment: Speci men Type: BLOOD SPECIMENOrdering Facility: [facility] Address: [address] [place] [address] Performed By: #### 5 7021-8, 4536-7 ####[facility] LABCLIA [id number] [address], [facility]95 [place] Lymphocytes (Bld) [#/Vol] 1.53 10*3/uL Normal 1.00-4.00 [facility] Comment on above: Order Comment: Speci men Type: BLOOD SPECIMENOrdering Facility: [facility] Address: [address] [place] [address] Performed By: #### 5 7021-8, 7 ####[facility] LABCLIA [id number] [address] [place] [address] [place] Lymphocytes/100 WBC (Bld) 27.7 % Normal [facility] Comment on above: Order Comment: Speci men Type: BLOOD SPECIMENOrdering Facility: [facility] Address: [address] [place] [address] Performed By: #### 5 7021-8, 7-7 ####[facility] LABCLIA [id number] [address] [id number] MCH (RBC) [Entitic mass] 29.6 pg Normal 26.0-34.0 [facility] Comment on above: Order Comment: Speci men Type: BLOOD SPECIMENOrdering Facility: [facility] Address: [address] [place] [address] Performed By: #### 5 7021-8, 7-7 ####[facility] LABCLIA [id number] [address] [place] MCHC (RBC) [Mass/Vol] 33.3 g/dL Normal 30.5-36.0 [facility] Comment on above: Order Comment: Speci men Type: BLOOD SPECIMENOrdering Facility: [facility] Address: [address] [place] [address] Performed By: #### 5 7021-8, 4536-7 ####[facility] LABCLIA [id number] [address] [place] MCV (RBC) [Entitic vol] 88.8 fL Normal 80.0-100.0 [facility] Comment on above: Order Comment: Speci men Type: BLOOD SPECIMENOrdering Facility: [facility] Address: [address] [place] [address] Performed By: #### 5 7021-8, 4536-7 ####[facility] LABCLIA [id number] [place] [address] [place] Monocytes (Bld) [#/Vol] 0.36 10*3/uL Normal <0.87 [facility] Comment on above: Order Comment: Speci men Type: BLOOD SPECIMENOrdering Facility: [facility] Address: [address] [place] [address] Performed By: #### 5 7021-8, 4536-7 ####[facility] LABCLIA [id number] [address] [place] Monocytes/100 WBC (Bld) 6.5 % Normal [facility] Comment on above: Order Comment: Speci men Type: BLOOD SPECIMENOrdering Facility: [facility] Address: [address] [place] [address] Performed By: #### 5 7021-8, 4536-7 ####[facility] LABCLIA [id number] [place] [id number] [place] Neutrophils (Bld) [#/Vol] 3.61 10*3/uL Normal 1.45-7.50 [facility] Comment on above: Order Comment: Speci men Type: BLOOD SPECIMENOrdering Facility: [facility] Address: [address] [place] [address] Performed By: #### 5 7021-8, 4536-7 ####[facility] LABCLIA [id number] [place] [address] [place] Neutrophils/100 WBC (Bld) 65.2 % Normal [facility] Comment on above: Order Comment: Speci men Type: BLOOD SPECIMENOrdering Facility: [facility] Address: [address] [place] [address] Performed By: #### 5 7021-8, 7 ####[facility] LABCLIA [id number] [place] [address] [place] Nucleated RBC (Bld) [#/Vol] 10*3/uL Normal <0.01 [facility] Comment on above: Order Comment: Speci men Type: BLOOD SPECIMENOrdering Facility: [facility] Address: [address] [place] [address] Performed By: #### 5 7021-8, 4536-7 ####[facility] LABCLIA [id number] [place] [address] [place] Nucleated RBC/100 WBC (Bld) [Ratio] 0.0 /100 WBC Normal [facility] Comment on above: Order Comment: Speci men Type: BLOOD SPECIMENOrdering Facility: [facility] Address: [address] [place] [address] Performed By: #### 5 7021-8, 7-7 ####[facility] LABIA [id number] [place] [id number] [place] Platelet mean volume (Bld) [Entitic vol] 10.4 fL Normal 9.0-12.7 [facility] Comment on above: Order Comment: Speci men Type: BLOOD SPECIMENOrdering Facility: [facility] Address: [address] [place] [address] Performed By: #### 5 7021-8, 4537-7 ####[facility] LABIA [id number] [place] [address] [place] Platelets (Bld) [#/Vol] 198 10*3/uL Normal 150-400 [facility] Comment on above: Order Comment: Speci men Type: BLOOD SPECIMENOrdering Facility: [facility] Address: [address] [place] [address] Performed By: #### 5 7021-8, 4537-7 ####[facility] LABIA [id number] [place] [address] [place] RBC (Bld) [#/Vol] 4.29 10*6/uL Normal 3.90-5.20 [facility] Comment on above: Order Comment: Speci men Type: BLOOD SPECIMENOrdering Facility: [facility] Address: [address] [place] [address] Performed By: #### 5 7021-8, 4537-7 ####[facility] LABIA [id number] [place] [id number] [place] WBC (Bld) [#/Vol] 5.53 10*3/uL Normal 3.70-11.00 [facility] Comment on above: Order Comment: Speci men Type: BLOOD SPECIMENOrdering Facility: [facility] Address: [address] [place] [address] Performed By: #### 5 7021-8, 4537-7 ####[facility] LABIA [id number] [address] CRP SerPl-mCncon 11-04-2024 CRP [Mass/Vol] mg/L Normal <0.9 [facility] Comment on above: Order Comment: Speci men Type: BLOOD SPECIMENOrdering Facility: [facility] Address: [address] [place] [address] Performed By: #### 4 485-9, 34579-3, 1988-5, 4498-2 ####[facility] [id number] [address] Cardiolipin IgA Ser IA-aCnco n 11-04-2024 Cardiolipin IgA IA Qn (S) <9.0 Normal <12.0 [facility] Comment on above: Order Comment: Speci men Type: BLOOD SPECIMENOrdering Facility: [facility] Address: [address] [place] [address] Result Comment: <12 APL Jqyzwmmi00-35 APL Indeterminate>20 APL PositiveThe following results were obtained with the [email or web address] QUANTA Lite KAMRON IgA III INGRID. Cardiolipin IgA values obtained with the different manufacturers' assay methods may not be used interchangeably. The magnitude of the reported IgA levels cannot be correlated to an endpoint titer. Performed By: #### 5 076-5, NICKIE LOO ####[facility] LABIA [id number] [address] Performed By: #### C KEATON, 5076-5, BETA2GCINDA BETA2Gabrielle ####[facility] LABIA [id number] [address] [facility] Centromere Ab IF Ql (S)on Centromere Ab Qn (S) <0.2 Normal <1.0 [facility] Comment on above: Order Comment: Speci men Type: BLOOD SPECIMENOrdering Facility: [facility] Address: [address] [place] [address] Result Comment: Anti -centromere antibody is used as in aid in diagnosis of systemic sclerosis. Clinical correlation is required.Test Methodology: Multiplex flow immunoassay. Performed By: #### 5 1775-5, 16192-9, 46743-1, 47465-1, 43477-7, 28645-2, 10099-3, 40104-5 ####[facility] LABIA [id number] [place] [id number] [place] CENTROMERE AB QUAL Negative Normal Negative [facility] Comment on above: Order Comment: Speci men Type: BLOOD SPECIMENOrdering Facility: [facility] Address: [address] [place] [address] Performed By: #### 5 1775-5, 54072-5, 25025-6, 15866-9, 21997-6, 56830-2, 44785-1, 62208-2 ####[facility] LABIA [id number] [place] [id number] [place] Chromatin Ab Qnon 11-04-2024 CHROMATIN AB QUAL Negative Normal Negative [facility] Comment on above: Order Comment: Speci men Type: BLOOD SPECIMENOrdering Facility: [facility] Address: [address] [place] [address] Performed By: #### 5 1775-5, 97876-4, 04589-8, 38218-5, 10371-2, 72745-7, 20565-2, 79677-0 ####[facility] LABIA [id number] [address] [address] [place] Chromatin Ab SerPl-aCncon Chromatin Ab Qn <0.2 Normal <1.0 [facility] Comment on above: Order Comment: Speci men Type: BLOOD SPECIMENOrdering Facility: [facility] Address: [address] [place] [address] Result Comment: Test Methodology: Multiplex flow immunoassay. Performed By: #### 5 1775-5, 50828-3, 14891-0, 99074-8, 90348-3, 68477-0, 22519-6, 12520-4 ####[facility] LABIA [id number] [address] [address] [place] Comprehensive metabolic 2000 panelon 11-04-2024 Albumin [Mass/Vol] 4.8 g/dL Normal 3.9-4.9 [facility] Comment on above: Order Comment: Speci men Type: BLOOD SPECIMENOrdering Facility: [facility] Address: [address] [place] [address] Performed By: #### 4 485-9, 68562-9, 1987-11, 4497-08 ####[facility] LABIA [id number] [place] [id number] [place] ALP [Catalytic activity/Vol] 47 U/L Normal 34-123 [facility] Comment on above: Order Comment: Speci men Type: BLOOD SPECIMENOrdering Facility: [facility] Address: [address] [place] [address] Performed By: #### 4 485-9, 65559-1, 1987-11, 4497-08 ####[facility] LABIA [id number] [place] [address] [place] ALT [Catalytic activity/Vol] 15 U/L Normal 7-38 [facility] Comment on above: Order Comment: Speci men Type: BLOOD SPECIMENOrdering Facility: [facility] Address: [address] [place] [address] Performed By: #### 4 485-9, 92123-1, 1987-11, 4497-08 ####[facility] LABIA [id number] [place] [id number] [place] Anion gap [Moles/Vol] 11 mmol/L Normal 8-15 [facility] Comment on above: Order Comment: Speci men Type: BLOOD SPECIMENOrdering Facility: [facility] Address: [address] [place] [address] Performed By: #### 4 485-9, 39133-9, 1987-11, 4497-08 ####[facility] LABCLIA [id number] [place] [address] [place] AST [Catalytic activity/Vol] 22 U/L Normal 13-35 [facility] Comment on above: Order Comment: Speci men Type: BLOOD SPECIMENOrdering Facility: [facility] Address: [address] [place] [address] Performed By: #### 4 485-9, 38034-3, 1987-11, 4497-08 ####[facility] LABIA [id number] [place] [address] [place] Bilirubin [Mass/Vol] 0.2 mg/dL Normal 0.2-1.3 [facility] Comment on above: Order Comment: Speci men Type: BLOOD SPECIMENOrdering Facility: [facility] Address: [address] [place] [address] Performed By: #### 4 485-9, 71148-5, 1987-11, 4497-08 ####[facility] LABIA [id number] [place] [address] [place] Calcium [Mass/Vol] 9.6 mg/dL Normal 8.5-10.2 [facility] Comment on above: Order Comment: Speci men Type: BLOOD SPECIMENOrdering Facility: [facility] Address: [address] [place], [place] [address] Performed By: #### 4 485-9, 24785-4, 1987-11, 4497-08 ####[facility] LABIA [id number] [place] [id number] [place] Chloride [Moles/Vol] 104 mmol/L Normal 98-107 [facility] Comment on above: Order Comment: Speci men Type: BLOOD SPECIMENOrdering Facility: [facility] Address: [address] [place] [id number] Performed By: #### 4 485-9, 60446-9, 4497-08 ####[facility] [id number] [place] [id number] [place] CO2 [Moles/Vol] 26 mmol/L Normal 22-30 [facility] Comment on above: Order Comment: Speci men Type: BLOOD SPECIMENOrdering Facility: [facility] Address: [address] [place] [address] Performed By: #### 4 485-9, 45651-7, 4497-08 ####[facility] [id number] [place] [id number] [place] Creatinine [Mass/Vol] 0.65 mg/dL Normal 0.58-0.96 [facility] Comment on above: Order Comment: Speci men Type: BLOOD SPECIMENOrdering Facility: [facility] Address: [address] [place] [address] Performed By: #### 4 485-9, 92806-3, 4497-08 ####[facility] [id number] [place] [address] [place] Creatinine and Glomerular filtration rate.predicted panel (S/P/Bld) 128 mL/min/1.73m??? Normal >=60 [facility] Comment on above: Order Comment: Speci men Type: BLOOD SPECIMENOrdering Facility: [facility] [facility] Address: [address] [place] [address] Result Comment: Roseanne mated Glomerular Filtration Rate (eGFR) is calculated using the 2020 CKD-EPI creatinine equation. This equation utilizes serum creatinine, sex, and age as parameters. The creatinine assay has traceable calibration to isotope dilution-mass spectrometry. Refer to KDIGO guidelines for clinical interpretation. In patients with unstable renal function, e.g. those with acute kidney injury, the eGFR may not accurately reflect actual GFR. Performed By: #### 4 485-9, 33718-4, 4497-08 ####[facility] LABCLIA [id number] [address] [address] [place] Glucose [Mass/Vol] 87 mg/dL Normal 74-99 [facility] Comment on above: Order Comment: Speci men Type: BLOOD SPECIMENOrdering Facility: [facility] Address: [address] [place] [address] Result Comment: The [place] Diabetes Association (ADA) provides guidance for cutoff values for fasting glucose and random glucose. The ADA defines fasting as no caloric intake for at least 8 hours. Fasting plasma glucose results between 100 to 125 mg/dL indicate increased risk for diabetes (prediabetes).Fasting plasma glucose results greater than or equal to 126 mg/dL meet the criteria for diagnosis of diabetes. In the absence of unequivocal hyperglycemia, results should be confirmed by repeat testing. In a patient with classic symptoms of hyperglycemia or hyperglycemic crisis, random plasma glucose results greater than or equal to 200 mg/dL meet the criteria for diagnosis of diabetes.Reference: Standards of Medical Care in Diabetes 2016, [place] [employer]. Diabetes Care. 2016.39(Suppl 1). Performed By: #### 4 485-9, 21517-1, 1987-11, 44902-05 ####[facility] LABIA [id number] [place] [address] [place] Potassium [Moles/Vol] 4.2 mmol/L Normal 3.7-5.1 [facility] Comment on above: Order Comment: Speci men Type: BLOOD SPECIMENOrdering Facility: [facility] Address: [address] [place] [address] Performed By: #### 4 485-9, 06488-4, 1987-11, 4498 ####[facility] LABIA [id number] [place] [id number] [place] Sodium [Moles/Vol] 141 mmol/L Normal 136-144 [facility] Comment on above: Order Comment: Speci men Type: BLOOD SPECIMENOrdering Facility: [facility] Address: [address] [place] [address] Performed By: #### 4 485-9, 90729-6, 1987-11, 4498 ####[facility] LABCLIA [id number] [place] [address] [place] Urea nitrogen [Mass/Vol] 15 mg/dL Normal 7-21 [facility] Comment on above: Order Comment: Speci men Type: BLOOD SPECIMENOrdering Facility: [facility] Address: [address] [place] [address] Performed By: #### 4 485-9, 79183-5, 1987-11, 4497-08 ####[facility] LABIA [id number] [place] [address] [place] DNA double strand Ab IA Qn ( S)on 11-04-2024 DNA ANTIBODY 9 IU/mL Normal <=200 [facility] Comment on above: Order Comment: Speci men Type: BLOOD SPECIMENOrdering Facility: [facility] Address: [address] [place] [address] Result Comment: Nega tive: <200 IU/mLEquivocal: 201-300 IU/mLModerate Positive: 301-800 IU/mLStrong Positive: >801 IU/mL Performed By: #### 3 2677-7 ####[facility] LABIA [id number] [place] [address] [place] DNA ANTIBODY QUALITATIVE INTERPRETATION Negative Normal Negative [facility] Comment on above: Order Comment: Speci men Type: BLOOD SPECIMENOrdering Facility: [facility] Address: [address] [place] [address] Performed By: #### 3 2677-7 ####[facility] LABIA [id number] [place] [address] [place] Jo1 Ab Ser-aCncon 2024 Barbie-1 extractable nuclear Ab Qn (S) <0.2 Normal <1.0 [facility] Comment on above: Order Comment: Speci men Type: BLOOD SPECIMENOrdering Facility: [facility] Address: [address] [place] [address] Performed By: #### 5 1775-5, 37799-7, 27022-5, 87587-0, 59231-5, 38849-6, 92669-1, 96686-7 ####[facility] LABCLIA [id number] [address] [place] [address] [place] TOOL LAPPER HAND Ab Ser-aCncon 2024 Ribonucleoprotein extractable nuclear Ab Qn (S) <0.2 Normal <1.0 [facility] Comment on above: Order Comment: Speci men Type: BLOOD SPECIMENOrdering Facility: [facility] Address: [address] [place] [address] Performed By: #### 5 1775-5, 75936-2, 24751-9, 14479-9, 05689-3, 36468-1, 26738-5, 15653-2 ####[facility] LABCLIA [id number] [address], [place] [address] [place] Ribonucleoprotein extractable nuclear Ab Qn (S) 0.4 AI Normal <1.0 [facility] Comment on above: Order Comment: Speci men Type: BLOOD SPECIMENOrdering Facility: [facility] Address: [address] [place] [address] Performed By: #### 5 1775-5, 58098-9, 63279-9, 73700-6, 37873-0, 64050-1, 37469-6, 00632-4 ####[facility] LABCLIA [id number] [address], [facility] [place] SM IgG Ser-aCncon 2024 Alvarado extractable nuclear IgG Qn (S) <0.2 Normal <1.0 [facility] Comment on above: Order Comment: Speci men Type: BLOOD SPECIMENOrdering Facility: [facility] Address: [address] [place] [address] Performed By: #### 5 1775-5, 48210-8, 96676-5, 41501-2, 33415-2, 13896-6, 33196-6, 40142-1 ####[facility] LABCLIA [id number] [address] [facility] [place] SS-A Ab Ser-aCncon 11-04 Sjogrens syndrome-A extractable nuclear Ab Qn (S) <0.2 Normal <1.0 [facility] Comment on above: Order Comment: Speci men Type: BLOOD SPECIMENOrdering Facility: [facility] Address: [address] [place] [address] Result Comment: Test Methodology: Multiplex flow immunoassay. Performed By: #### 5 1775-5, 03148-4, 23542-5, 11298-3, 57323-1, 50118-7, 79848-1, 87754-2 ####[facility] LABIA [id number] [address] [place] SS-B Ab Ser-aCncon 11-04 Sjogrens syndrome-B extractable nuclear Ab Qn (S) 0.4 AI Normal <1.0 [facility] Comment on above: Order Comment: Speci men Type: BLOOD SPECIMENOrdering Facility: [facility] Address: [address] [place] [address] Result Comment: Anti -SSB (anti-La) antibody is used as an aid in diagnosis of a variety of systemic autoimmune diseases, especially for Sjogren's syndrome and systemic lupus erythematosus. Clinical correlation is required.Test Methodology: Multiplex flow immunoassay. Performed By: #### 5 1775-5, 54198-6, 40804-7, 89405-1, 56031-1, 27381-3, 89249-5, 89901-1 ####[facility] LABIA [id number] [address] [place] ESR Westergren method (Bld) [Velocity]on 11-04-2024 ESR (Bld) [Velocity] 2 mm/h Normal 0-20 [facility] Comment on above: Order Comment: Speci men Type: BLOOD SPECIMENOrdering Facility: [facility] Address: [address] [place] [address] Performed By: #### 5 7021-8, 4537-7 ####[facility] LABIA [id number] [place] [address] [place] Ferritin SerPl-mCncon 2024 Ferritin [Mass/Vol] 15.8 ng/mL Normal 14.7-205.1 [facility] Comment on above: Order Comment: Speci men Type: BLOOD SPECIMENOrdering Facility: [facility] Address: [address] [place] [address] Performed By: #### 2 276-4, 2885-2 ####[facility] LABIA [id number] [place] [address] [place] HBV core Ab Ser Qlon 025 HBV core Ab Ql (S) Negative Normal Negative [facility] Comment on above: Order Comment: Speci men Type: BLOOD SPECIMENOrdering Facility: [facility] Address: [address] [place] [address] Result Comment: No e vidence of current or past infection with Hepatitis B virus. Should recent infection be suspected, repeat testing may be considered 3-4 weeks after this draw. Performed By: #### 2 2322-2, 23567-9, 5195-3 ####[facility] LABIA [id number] [place] [address] [place] HBV surface Ab Ql (S)on HBV surface Ab Qn (S) 96.29 mIU/mL Normal [facility] Comment on above: Order Comment: Speci men Type: BLOOD SPECIMENOrdering Facility: [facility] Address: [address] [place] [address] Result Comment: <8 m IU/mL: No serological evidence of immunity to Hepatitis B Virus.>/= 8 to <12 mIU/mL: No serological evidence of immunity to Hepatitis B Virus.>/= 12 mIU/mL: Consistent with serological evidence of immunity to Hepatitis B Virus. Performed By: #### 2 2322-2, 64025-4, 5195-3 ####[facility] LABCLIA [id number] [address] [address] [facility] [place] HBV surface Ab Ser Qlon 05-0 HBV surface Ab Ql (S) Positive Normal [facility] Comment on above: Order Comment: Speci men Type: BLOOD SPECIMENOrdering Facility: [facility] Address: [address] [place] [address] Result Comment: Cons istent with serological evidence of immunity to Hepatitis B Virus. Performed By: #### 2 2322-2, 40666-1, 5195-3 ####[facility] LABIA [id number] [address] [place] HBV surface Ag Ser Qlon 05-0 HBV surface Ag Ql (S) Negative Normal Negative [facility] Comment on above: Order Comment: Speci men Type: BLOOD SPECIMENOrdering Facility: [facility] Address: [address] [place] [address] Performed By: #### 2 2322-2, 85940-7, 5195-3 ####[facility] LABIA [id number] [address] HCV Ab Ser Qlon 11-04-2024 HCV Ab Ql (S) Negative Normal Negative [facility] Comment on above: Order Comment: Speci men Type: BLOOD SPECIMENOrdering Facility: [facility] Address: [address] [place] [address] Result Comment: The result suggests no evidence of infection with Hepatitis C virus. Should recent infection be suspected, repeat testing may be considered 4-6 weeks after this draw. Performed By: #### 1 6128-1 ####[facility] LABIA [id number] [place] [id number] [place] Barbie-1 extractable nuclear Ab Qn (S)on 11-04-2024 BARBIE 1 ANTIBODY QUAL Negative Normal Negative [facility] Comment on above: Order Comment: Lou rico Type: BLOOD SPECIMENOrdering Facility: [facility] Address: [address] [place] [address] Result Comment: Anti -BARBIE-1 antibody is used as an aid in diagnosis of polymyositis and dermatomyositis especially with pulmonary involvement. A negative result cannot rule out polymyositis or dermatomyositis. Clinical correlation is required.Test Methodology: Multiplex flow immunoassay. Performed By: #### 5 1775-5, 94278-2, 35326-2, 42097-4, 63231-6, 84500-5, 05527-4, 82380-3 ####[facility] LABCLIA [id number] [address] [place] LUPUS PANELon 11-04-2024 aPTT Coag (Bld) [Time] 38.4 s Normal 30.2-43.0 [facility] Comment on above: Order Comment: Lou rico Type: BLOOD SPECIMENOrdering Facility: [facility] Address: [address] [place] [address] Result Comment: This test was developed, and its performance characteristics determined by the [facility] Department of Pathology and Laboratory Medicine. It has not been cleared or approved by the FDA. The [facility] Department of Pathology and Laboratory Medicine is regulated under CLIA as qualified to perform high-complexity testing. This test is used for clinical purposes. It should not be regarded as investigational or for research. Performed By: #### L [id number], LUPPL ####[facility] LABCLIA [id number] [address] STATES OF [facility] aPTT Coag (Bld) [Time] 36.2 s Normal 31.5-38.3 [facility] Comment on above: Order Comment: Lou rico Type: BLOOD SPECIMENOrdering Facility: [facility] Address: [address] [place] [address] Result Comment: This test was developed, and its performance characteristics determined by the [facility] Department of Pathology and Laboratory Medicine. It has not been cleared or approved by the FDA. The [facility] Department of Pathology and Laboratory Medicine is regulated under CLIA as qualified to perform high-complexity testing. This test is used for clinical purposes. It should not be regarded as investigational or for research. Performed By: #### L [id number], LUPPL ####[facility] LABCLIA [id number] [place] [address] [place] aPTT Coag (Bld) [Time] 31.9 s Normal 24.0-35.1 [facility] Comment on above: Order Comment: Speci men Type: BLOOD SPECIMENOrdering Facility: [facility] Address: [address] [place] [address] Performed By: #### L [id number], LUPPL ####[facility] LABIA [id number] [place] [address] [place] aPTT W excess hexagonal phase phospholipid Coag (PPP) [Time] 45.8 seconds Normal 34.0-51.8 [facility] Comment on above: Order Comment: Speci men Type: BLOOD SPECIMENOrdering Facility: [facility] Address: [address] [place] [address] Performed By: #### L [id number], LUPPL ####[facility] [id number] [address] [place] Coagulation factor X activated act Coag Qn (PPP) <0.10 Normal <0.10 [facility] Comment on above: Order Comment: Speci men Type: BLOOD SPECIMENOrdering Facility: [facility] Address: [address] [place] [address] Result Comment: This test was developed, and its performance characteristics determined by the [facility] Department of Pathology and Laboratory Medicine. It has not been cleared or approved by the FDA. The [facility] Department of Pathology and Laboratory Medicine is regulated under CLIA as qualified to perform high-complexity testing. This test is used for clinical purposes. It should not be regarded as investigational or for research. Performed By: #### L [id number], LUPPL ####[facility] LABIA [id number] [place] [address] [place] Delta dRVVT Coag (PPP) [Time diff] 4.1 delta seconds Normal <7.1 [facility] Comment on above: Order Comment: Speci men Type: BLOOD SPECIMENOrdering Facility: [facility] Address: [address] [place] [address] Performed By: #### L [id number], LUPPL ####[facility] [id number] [place] [address] [place] dRVVT Coag (PPP) [Time] 29.5 s Low 32.0-45.7 [facility] Comment on above: Order Comment: Speci men Type: BLOOD SPECIMENOrdering Facility: [facility] Address: [address] [place] [address] Performed By: #### L [id number], LUPPL ####[facility] [id number] [address] [place] dRVVT factor substitution immediately after 1:2 addition of normal plasma Coag (PPP) [Time] 31.5 seconds Low 32.0-45.7 [facility] Comment on above: Order Comment: Speci men Type: BLOOD SPECIMENOrdering Facility: [facility] Address: [address] [place] [address] Performed By: #### L [id number], LUPPL ####[facility] [id number] [place] [address] [place] dRVVT W excess hexagonal phase phospholipid actual/normal Coag (PPP) [Relative time] 41.7 seconds Normal 34.2-47.9 [facility] Comment on above: Order Comment: Speci men Type: BLOOD SPECIMENOrdering Facility: [facility] Address: [address] [place] [address] Performed By: #### L [id number], LUPPL ####[facility] LABCLIA [id number] [address] [address] [place] dRVVT/dRVVT.excess phospholipid Coag (PPP) [Ratio] 1.00 Normal <1.32 [facility] Comment on above: Order Comment: Speci men Type: BLOOD SPECIMENOrdering Facility: [facility] Address: [address] [place] [address] Performed By: #### L [id number], LUPPL ####[facility] LABIA [id number] [address] [address] [place] PLATELET NEUT 0.5 Seconds Normal <1.9 [facility] Comment on above: Order Comment: Speci men Type: BLOOD SPECIMENOrdering Facility: [facility] Address: [address] [place] [address] Result Comment: This test was developed, and its performance characteristics determined by the [facility] Department of Pathology and Laboratory Medicine. It has not been cleared or approved by the FDA. The [facility] Department of Pathology and Laboratory Medicine is regulated under CLIA as qualified to perform high-complexity testing. This test is used for clinical purposes. It should not be regarded as investigational or for research. Performed By: #### L [id number], LUPPL ####[facility] LABIA [id number] [address] [address] [place] Thrombin time Coag (PPP) [Time] <16.8 Normal <18.6 [facility] Comment on above: Order Comment: Speci men Type: BLOOD SPECIMENOrdering Facility: [facility] Address: [address] [place] [address] Performed By: #### L [id number], LUPPL ####[facility] LABIA [id number] [address] [address] [place] LUPUS PANEL INTERPon 025 Lupus anticoagulant (PPP) [Interp] Normal [facility] Comment on above: Order Comment: Speci men Type: BLOOD SPECIMENOrdering Facility: [facility] Address: [address] [place] [address] Result Comment: No s ignificant abnormality - see comment below.Laboratory testing was performed to evaluate the presence of a lupus anticoagulant and antiphospholipid antibodies. The PT and APTT values are both within the normal range. A normal thrombin time (TT) and negative anti-Xa screen makes a heparin, anti-Xa drug and/or direct thrombin inhibitor effect unlikely.LUPUS ANTICOAGULANT STUDIES:Since only a single phospholipid-dependent assay is positive without a positive screening test, a lupus anticoagulant is unlikely.The criteria for the diagnosis of a Lupus Anticoagulant, as detailed by the Subcommittee on Lupus Anticoagulants and Anti-Phospholipid Antibodies of the Scientific and Standardization Committee of the International Society on Thrombosis and Haemostasis (ISTH), are the following: (1) A prolonged phospholipid-dependent clotting test (screening test); (2) Evidence for an inhibitor (1:1 mix of patient:normal plasma); (3) Evidence that the inhibitor is phospholipid dependent and (4) Exclusion of specific inhibitors (ie, fVIII inhibitors, direct thrombin inhibitors, or heparin). Thromb. Haemost. 74:1185 (1995).ANTIPHOSPHOLIPID ANTIBODY STUDIES:The IgG, IgM and IgA anticardiolipin antibody titers were all negative. Both the IgG and IgM Beta-2 Glycoprotein I antibody titers were negative.THE FOLLOWING TESTS WERE ADDED AND ARE REPORTED SEPARATELY: DRVVT, Hexagonal phase phospholipid neutralization and PNP. Performed By: #### L [id number], LUPPL ####[facility] LABIA [id number] [place] [address] [place] Pathologist name Reviewed by Danielito Wolf MD, PhD Normal [facility] Comment on above: Order Comment: Speci men Type: BLOOD SPECIMENOrdering Facility: [facility] Address: [address] [place] [address] Performed By: #### L [id number], LUPPL ####[facility] LABIA [id number] [place] [address] [place] PROTEIN ELECTROPHORESIS SERU M (P)on 11-04-2024 Albumin [Mass/Vol] 4.75 g/dL Normal 3.43-5.41 [facility] Comment on above: Order Comment: Speci men Type: BLOOD SPECIMENOrdering Facility: [facility] Address: [address] [place] [address] Performed By: #### L [id number] ####[facility] LABIA [id number] [place] [id number] [place] Alpha 1 globulin Elph [Mass/Vol] 0.31 g/dL Normal 0.18-0.43 [facility] Comment on above: Order Comment: Speci men Type: BLOOD SPECIMENOrdering Facility: [facility] Address: [address] [place] [address] Performed By: #### L [id number] ####[facility] LABIA [id number] [place] [address] [place] Alpha 2 globulin Elph [Mass/Vol] 0.55 g/dL Normal 0.42-0.98 [facility] Comment on above: Order Comment: Speci men Type: BLOOD SPECIMENOrdering Facility: [facility] Address: [address] [place] [address] Performed By: #### L [id number] ####[facility] LABIA [id number] [place] [address] [place] Beta globulin Elph [Mass/Vol] 0.77 g/dL Normal 0.61-1.17 [facility] Comment on above: Order Comment: Speci men Type: BLOOD SPECIMENOrdering Facility: [facility] Address: [address] [place], [place] [id number] Performed By: #### L [id number] ####[facility] LABIA [id number] [place] [id number] [place] Gamma globulin Elph [Mass/Vol] 0.72 g/dL Normal 0.53-1.51 [facility] Comment on above: Order Comment: Speci men Type: BLOOD SPECIMENOrdering Facility: [facility] Address: [address] [place], [place] [address] Performed By: #### L [id number] ####[facility] LABIA [id number] [place] [address] [place] M-PROTEIN LOCATION Normal [facility] Comment on above: Order Comment: Speci men Type: BLOOD SPECIMENOrdering Facility: [facility] [facility] Address: [address] [place] [address] Result Comment: Not Applicable. Performed By: #### L [id number] ####[facility] LABIA [id number] [place] [address] [place] Protein Fractions [Interp] No definitive M protein is identified on protein electrophoresis. Normal No definitive M protein is identified on protein electrophore sis. [facility] Comment on above: Order Comment: Speci men Type: BLOOD SPECIMENOrdering Facility: [facility] Address: [address] [place] [address] Performed By: #### L [id number] ####[facility] [id number] [address] [place] Protein.monoclonal Elph [Mass/Vol] 0.00 g/dL Normal <=0.00 [facility] Comment on above: Order Comment: Speci men Type: BLOOD SPECIMENOrdering Facility: [facility] Address: [address] [place] [address] Performed By: #### L [id number] ####[facility] LABIA [id number] [place] [address] [place] SPE STAFF REVIEW Reviewed by Dr. Tre Foss MD Normal [facility] Comment on above: Order Comment: Speci men Type: BLOOD SPECIMENOrdering Facility: [facility] Address: [address] [place] [address] Performed By: #### L [id number] ####[facility] LABIA [id number] [place] [id number] [place] PT panel Coag (PPP)on 2024 INR Coag (PPP) [Relative time] 1.0 {INR} Normal 0.9-1.3 [facility] Comment on above: Order Comment: Lou rico Type: BLOOD SPECIMENOrdering Facility: [facility] Address: [address] [place] [address] Result Comment: Wendy min K Antagonist (VKA) Therapeutic Range: INR 2 to 3 (Target INR of 2.5)Note: For patients treated with VKA drugs, such as warfarin, the [place] [employer] 2012 Guideline recommends a therapeutic INR range of 2 to 3 (target INR of 2.5). This recommendation includes high-risk patients with antiphospholipid syndrome with previous arterial or venous thromboembolism, current-generation mechanical or bioprosthetic aortic heart valve replacement.Note: Patients with mechanical aortic valve replacement and additional risk factors for thromboembolic events (atrial fibrillation, previous thromboembolism, LV dysfunction, hypercoagulable conditions) or an older generation mechanical AVR (i.e., ball in-Cage) or any mechanical MVR should have a INR therapeutic range of 2.5 to 3.5 (target INR of 3).Robert CASTREJON, et al. Chest 2012, 141:7S-47SNishimstephen RA, et al. JAC 2017, 70: 252-289 Performed By: #### 3 4528-0, 07936-5 ####[facility] [id number] [place] [address] [place] PT Coag (PPP) [Time] 11.3 s Normal 9.7-13.0 [facility] Comment on above: Order Comment: Lou rico Type: BLOOD SPECIMENOrdering Facility: [facility] Address: [address] [place] [address] Performed By: #### 3 4528-0, 57459-1 ####[facility] [id number] [place] [address] [place] Prot SerPl-mCncon 11-04-2024 Protein [Mass/Vol] 7.1 g/dL Normal 6.3-8.0 [facility] Comment on above: Order Comment: Speci men Type: BLOOD SPECIMENOrdering Facility: [facility] Address: [address] [place] [address] Performed By: #### 2 276-4, 2885-2 ####[facility] LABCLIA [id number] [facility] [address] [place] [address] [place] Performed By: #### 4 485-9, 47738-1, 1988-5, 4498-2 ####[facility] LABCLIA [id number] [facility] [id number], [place] [address] [place] Prot/Creat Uron 11-04-2024 Protein/Creatinine (U) [Mass ratio] 0.11 mg/mg Normal <0.15 [facility] Comment on above: Order Comment: Speci men Type: URINE SPECIMENOrdering Facility: [facility] Address: [address] [place] [address] Result Comment: Adul t Proteinuria Categories:<0.15 mg/mg is considered normal to mildly increased0.15 - 0.50 mg/mg is considered moderately increased>0.50 mg/mg is considered severely increasedKDIGO. (2013). KDIGO 2012 Clinical Practice Guideline for the Evaluation and Management of Chronic Kidney Disease. Official Journal of the International Society of Nephrology, 3(1), 1-150. Performed By: #### 2 890-2 ####[facility] LABCLIA [id number] [facility] [place] [id number] [place] Protein/Creatinine (U) [Mass ratio]on 11-04-2024 Creatinine (U) [Mass/Vol] 36.6 mg/dL Normal 20.0-300.0 [facility] Comment on above: Order Comment: Speci men Type: URINE SPECIMENOrdering Facility: [facility] Address: [address] [place] [address] Performed By: #### 2 890-2 ####[facility] LABCLIA [id number] [facility] [address], [facility] [place] Protein (U) [Mass/Vol] 4 mg/dL Normal 0-20 [facility] Comment on above: Order Comment: Speci men Type: URINE SPECIMENOrdering Facility: [facility] Address: [address] [place] [address] Performed By: #### 2 890-2 ####[facility] [id number] [place] [address] [place] Ribonucleoprotein extractabl e nuclear Ab Qn (S)on 11-04-2024 ANTI-TOOL LAPPER HAND QUAL Negative Normal Negative [facility] Comment on above: Order Comment: Speci men Type: BLOOD SPECIMENOrdering Facility: [facility] Address: [address] [place] [address] Performed By: #### 5 1775-5, 93245-0, 02883-8, 41119-6, 30729-2, 85033-5, 62212-7, 62741-3 ####[facility] [id number] [place] [address] [place] RIBOSOMAL TOOL LAPPER HAND QUAL Negative Normal Negative [facility] Comment on above: Order Comment: Speci men Type: BLOOD SPECIMENOrdering Facility: [facility] Address: [address] [place] [address] Result Comment: Anti -Ribosomal RNA (Ribosomal P) antibody is used as an aid in diagnosis of systemic autoimmune diseases especially systemic lupus erythematosus and mixed connective tissue disease. Cross-reactivity with Anti-alvarado antibody is not uncommon. Clinical correlation is required.Test Methodology: Multiplex flow immunoassay. Performed By: #### 5 1775-5, 06725-9, 50322-1, 84163-0, 32744-0, 34216-5, 40278-0, 84524-7 ####[facility] [id number] [place] [id number] [place] SCL-70 extractable nuclear I gG IA Qn (S)on 11-04-2024 SCLERODERMA AB QUAL Negative Normal Negative [facility] Comment on above: Order Comment: Speci men Type: BLOOD SPECIMENOrdering Facility: [facility] Address: [address] [place], [place] [address] Performed By: #### 5 1775-5, 81461-5, 22013-4, 98268-7, 37122-6, 10833-2, 07656-7, 05752-8 ####[facility] LABCLIA [id number] [address] [address] [place] SCLERODERMA IGG AB <0.2 Normal <1.0 [facility] Comment on above: Order Comment: Speci men Type: BLOOD SPECIMENOrdering Facility: [facility] Address: [address] [place] [address] Result Comment: Scl- 70/Scleroderma antibody test is used as an aid in diagnosis of systemic sclerosis especially the diffuse cutaneous form. A negative result cannot rule out systemic sclerosis. The final interpretation should consider clinical picture and other test results such as anti-centromere antibody. Test Methodology: Multiplex flow immunoassay. Performed By: #### 5 1775-5, 73014-9, 49634-4, 45060-6, 97925-0, 17298-8, 81999-0, 17310-3 ####[facility] LABIA [id number] [address] [address] [place] Sjogrens syndrome-A extracta ble nuclear Ab Qn (S)on 11-04-2024 SSA ANTIBODY QUAL Negative Normal Negative [facility] Comment on above: Order Comment: Luo rico Type: BLOOD SPECIMENOrdering Facility: [facility] Address: [address] [place], [place] [address] Performed By: #### 5 1775-5, 30821-9, 93561-7, 17582-2, 72853-9, 83701-1, 37238-9, 96699-8 ####[facility] LABIA [id number] [address] [place] [address] [place] Sjogrens syndrome-B extracta ble nuclear Ab Qn (S)on 11-04-2024 SSB ANTIBODY QUAL Negative Normal Negative [facility] Comment on above: Order Comment: Speci men Type: BLOOD SPECIMENOrdering Facility: [facility] Address: [address] [place] [address] Performed By: #### 5 1775-5, 51209-2, 88793-9, 60483-0, 53793-6, 06950-2, 57831-7, 21275-1 ####[facility] LABCLIA [id number] [address] [place] [address] [place] Alvarado extractable nuclear Ig G Qn (S)on 11-04-2024 SM ANTIBODY QUAL Negative Normal Negative [facility] Comment on above: Order Comment: Speci men Type: BLOOD SPECIMENOrdering Facility: [facility] Address: [address] [place] [address] Result Comment: Anti -Sm (Alvarado) antibody is used as an aid in diagnosis of systemic lupus erythematosus and its presence is associated with renal disease. A negative result cannot rule out systemic lupus erythematosus. Clinical correlation is required.Test Methodology: Multiplex flow immunoassay. Performed By: #### 5 1775-5, 20125-2, 38904-8, 60466-6, 59606-7, 94603-0, 49025-5, 13952-4 ####[facility] LABIA [id number] [address] [place] [address] [place] Urinalysis complete panel (U )on 11-04-2024 Bacteria LM.HPF (Urine sed) [#/Area] Negative Normal Negative [facility] Comment on above: Order Comment: Speci men Type: URINE SPECIMENOrdering Facility: [facility] Address: [address] [place] [address] Performed By: #### 2 4356-8 ####[facility] LABIA [id number] [address] [place] [address] [place] Bilirubin Ql (U) Negative Normal Negative [facility] Comment on above: Order Comment: Speci men Type: URINE SPECIMENOrdering Facility: [facility] Address: [address] [place] [address] Performed By: #### 2 4356-8 ####[facility] LABCLIA [id number] [place] [address] [place] Clarity (Unsp spec) Clear Normal Clear [facility] Comment on above: Order Comment: Speci men Type: URINE SPECIMENOrdering Facility: [facility] Address: [address] [place] [address] Performed By: #### 2 4356-8 ####[facility] LABCLIA [id number] [place] [address] [place] Color (U) Yellow Normal Yellow [facility] Comment on above: Order Comment: Speci men Type: URINE SPECIMENOrdering Facility: [facility] Address: [address] [place] [address] Performed By: #### 2 4356-8 ####[facility] LABIA [id number] [place] [address] [place] Epithelial cells LM.HPF (Urine sed) [#/Area] Few Normal [facility] Comment on above: Order Comment: Speci men Type: URINE SPECIMENOrdering Facility: [facility] Address: [address] [place] [address] Performed By: #### 2 4356-8 ####[facility] LABCLIA [id number] [place] [address] [place] Glucose Test strip (U) [Mass/Vol] Negative Normal Negative [facility] Comment on above: Order Comment: Speci men Type: URINE SPECIMENOrdering Facility: [facility] Address: [address] [place] [address] Performed By: #### 2 4356-8 ####[facility] LABCLIA [id number] [place] [id number] [place] Hemoglobin Ql (U) Negative Normal Negative [facility] Comment on above: Order Comment: Speci men Type: URINE SPECIMENOrdering Facility: [facility] Address: [address] [place] [address] Performed By: #### 2 4356-8 ####[facility] LABCLIA [id number] [address], [place] [address] [place] Hyaline casts (Urine sed) [#/Area] 0 /[LPF] Normal 0 /LPF [facility] Comment on above: Order Comment: Speci men Type: URINE SPECIMENOrdering Facility: [facility] Address: [address] [place] [address] Performed By: #### 2 4356-8 ####[facility] LABCLIA [id number] [place] [address] [place] Ketones Ql (U) Negative Normal Negative [facility] Comment on above: Order Comment: Speci men Type: URINE SPECIMENOrdering Facility: [facility] Address: [address] [place] [address] Performed By: #### 2 4356-8 ####[facility] LABCLIA [id number] [address], [place] [address] [place] Leukocyte esterase Test strip Ql (U) Negative Normal Negative [facility] Comment on above: Order Comment: Speci men Type: URINE SPECIMENOrdering Facility: [facility] Address: [address] [place] [address] Performed By: #### 2 4356-8 ####[facility] LABCLIA [id number] [address], [facility]95 [place] Nitrite Ql (U) Negative Normal Negative [facility] Comment on above: Order Comment: Speci men Type: URINE SPECIMENOrdering Facility: [facility] Address: [address] [place] [address] Performed By: #### 2 4356-8 ####[facility] LABCLIA [id number] [address], [facility]95 [place] pH (U) 7.0 [pH] Normal <8.5 [facility] Comment on above: Order Comment: Speci men Type: URINE SPECIMENOrdering Facility: [facility] Address: [address] [place] [address] Performed By: #### 2 4356-8 ####[facility] LABIA [id number] [place] [address] [place] Protein (U) [Mass/Vol] Negative Normal Negative Cl [facility] Comment on above: Order Comment: Speci men Type: URINE SPECIMENOrdering Facility: [facility] Address: [address] [place] [address] Performed By: #### 2 4356-8 ####[facility] [id number] [place] [address] [place] RBC LM.HPF (Urine sed) [#/Area] 0-2 /HPF Normal 0-2 /HPF [facility] Comment on above: Order Comment: Speci men Type: URINE SPECIMENOrdering Facility: [facility] Address: [address] [place] [address] Performed By: #### 2 4356-8 ####[facility] [id number] [place] [address] [place] Specific gravity (U) [Rel density] 1.012 Normal 1.005-1.030 [facility] Comment on above: Order Comment: Speci men Type: URINE SPECIMENOrdering Facility: [facility] Address: [address] [place] [address] Performed By: #### 2 4356-8 ####[facility] LABIA [id number] [place] [address] [place] Urobilinogen Ql (U) 0.2 EU/dL Normal 0.2-1.0 EU/dL [facility] Comment on above: Order Comment: Speci men Type: URINE SPECIMENOrdering Facility: [facility] Address: [address] [place] [address] Performed By: #### 2 4356-8 ####[facility] LABIA [id number] [place] [address] [place] WBC LM.HPF (Urine sed) [#/Area] 0-5 /HPF Normal 0-5 /HPF [facility] Comment on above: Order Comment: Speci men Type: URINE SPECIMENOrdering Facility: [facility] Address: [address] [place] [address] Performed By: #### 2 4356-8 ####[facility] [id number] [place] [address] [place] aPTT PPPon 11-04-2024 aPTT Coag (PPP) [Time] 29.8 s Normal 23.0-32.4 [facility] Comment on above: Order Comment: Speci men Type: BLOOD SPECIMENOrdering Facility: [facility] Address: [address] [place] [address] Performed By: #### 3 4528-0, 86571-9 ####[facility] [id number] [place] [address] [place] dsDNA Ab Ser Ql CLIFon 11-04 DNA double strand Ab IF Crithidia luciliae Ql (S) Negative Normal Negative [facility] Comment on above: Order Comment: Speci men Type: BLOOD SPECIMENOrdering Facility: [facility] Address: [address] [place] [address] Result Comment: Crit hidia luciliae assay is used as an aid in diagnosis of systemic lupus erythematosus (SLE). A negative result cannot rule out SLE. Low positive titers may be seen with other systemic autoimmune diseases. Clinical correlation is required. Performed By: #### 6 457-6 ####[facility] LABIA [id number] [place] [address] [place] CNPNon 11-03-2024 CNPN Normal [facility] CNPNon 11-02-2024 CNPN Normal [facility] CNOVon 11-01-2024 CNOV Normal [facility] CNPNon 10-28-2024 CNPN Normal [facility] CNPNon 10-27-2024 CNPN Normal [facility] CNPNon 10-22-2024 CNPN Normal [facility] CNPNon 10-18-2024 CNPN Normal [facility] CNPNon 10-15-2024 CNPN Normal [facility] C1Q COMPLEMENT PROTon 2024 C1Q COMPLEMENT PROTEIN 90 ug/mL Low 109-242 Cl [facility] Comment on above: Order Comment: Speci men Type: BLOOD SPECIMENOrdering Facility: [facility] Address: [address] [place] [address] Result Comment: Perf ormed By: [employer] [place] [id number] Director: Marcus Rosado MD, PhDCLIA Number: [id number] Performed By: #### C OMC1Q ####[facility] [id number] [place] [id number] C2 COMPLEMENT BLDon 10-14-19 25 C2 COMPLEMENT 2.0 mg/dL Normal 1.6-4.0 [facility] Comment on above: Order Comment: Speci men Type: BLOOD SPECIMENOrdering Facility: [facility] Address: [address] [place] [address] Result Comment: INTE RPRETIVE INFORMATION: Complement Component 2Decreased C2 levels may be associated with increasedsusceptibility to infection (especially pneumococcal infections),systemic lupus erythematosus-like disease, rashes, arthritis andnephritis, and with C1-Esterase deficiency. Increased C2 levelsare associated with the acute phase response.This test was developed and its performance characteristicsdetermined by [employer]. It has not been cleared orapproved by the [place] Food and Drug Administration. This test wasperformed in a CLIA certified laboratory and is intended forclinical purposes.Performed By: [employer] [place] [id number] Director: Marcus Rosado MD, PhDCLIA Number: [id number] Performed By: #### C OMPC2 ####[facility] [id number] [place] [address] COMPLEMENT DEFICIENCY ASSAYo n 10-13-2024 COMPLEMENT DEF ASSAY 88.7 U/mL Normal 41.7-95.1 [facility] Comment on above: Order Comment: Specmckay rico Type: BLOOD SPECIMENOrdering Facility: [facility] Address: [address] [place] [address] Result Comment: Tota l complement function test is used as an aid in diagnosis of complement deficiencies. It measures the function of the classical pathway including terminal complement components. Clinical correlation is required. Performed By: #### C OMPD ####[facility] LABCLIA [id number] [facility] [id number] [place] [address] [place] DIPHTHER/TETANUS ABon 2024 DIPHTHERIA AB 1.6 IU/mL Normal [facility] Comment on above: Order Comment: Lou rico Type: BLOOD SPECIMENOrdering Facility: [facility] Address: [address] [place] [address] Result Comment: INTE RPRETIVE INFORMATION: Diphtheria Ab, IgGAntibody concentration of greater than 0.1 IU/mL is usuallyconsidered protective.Responder status is determined according to the ratio of a onemonth post-vaccination sample to pre-vaccination concentrations ofDiphtheria IgG Abs as follows:1. If the one month post-vaccination concentration is less than 1.0 IU/mL, the patient is considered to be a non-responder.2. If the post-vaccination concentration is greater than or equal to 1.0 IU/mL, a patient with a ratio of less than 1.5 is a non-responder, a ratio of 1.5 to less than 3.0, a weak responder, and a ratio of 3.0 or greater, a good responder.3. If the pre-vaccination concentration is greater than 1.0 IU/mL, it may be difficult to assess the response based on a ratio alone. A post-vaccination concentration above 2.5 IU/mL in this case is usually adequate.This test was developed and its performance characteristicsdetermined by [employer]. It has not been cleared orapproved by the [place] Food and Drug Administration. This test wasperformed in a CLIA certified laboratory and is intended forclinical purposes. Performed By: #### ASHLEY CHE ####[facility] LABORATORIESIA [id number] [place] [address] TETANUS AB 4.4 IU/mL Normal [facility] Comment on above: Order Comment: Speci men Type: BLOOD SPECIMENOrdering Facility: [facility] Address: [address] [place] [address] Result Comment: INTE RPRETIVE INFORMATION: Tetanus Ab, IgGAntibody concentration of greater than 0.1 IU/mL is usuallyconsidered protective.Responder status is determined according to the ratio of aone-month post-vaccination sample to pre-vaccination concentrationof Tetanus IgG Abs as follows:1. If the one month post-vaccination concentration is less than 1.0 IU/mL, the patient is considered a non-responder.2. If the post-vaccination concentration is greater than or equal to 1.0 IU/mL, a patient with a ratio of less than 1.5 is a non-responder, a ratio of 1.5 to less than 3.0, a weak responder, and a ratio of 3.0 or greater, a good responder.3. If the pre-vaccination concentration is greater than 1.0 IU/mL, it may be difficult to assess the response based on a ratio alone. A post-vaccination concentration above 2.5 IU/mL in this case is usually adequate.This test was developed and its performance characteristicsdetermined by [facility]. It has not been cleared orapproved by the [place] Food and Drug Administration. This test wasperformed in a CLIA certified laboratory and is intended forclinical purposes.Performed By: [facility] [place], [place] [address] Director: Marcus Rosado MD, PhDCLIA Number: [id number] Performed By: #### ASHLEY CHE ####[facility] LABORATORIESCLIA [id number] [place] [address] IMMUNOGLOBULINS,IGG,IGA,IGMo n 10-13-2024 IgA [Mass/Vol] 105 mg/dL Normal 70-400 [facility] Comment on above: Order Comment: Speci men Type: BLOOD SPECIMENOrdering Facility: [facility] Address: [address] [place], [place] [address] Performed By: #### S ERIMM ####[facility] LABCLIA [id number] [place] [address] [place] IgG [Mass/Vol] 738 mg/dL Normal 700-1600 [facility] Comment on above: Order Comment: Speci men Type: BLOOD SPECIMENOrdering Facility: [facility] Address: [address] [place] [address] Performed By: #### S ERIMM ####[facility] LABIA [id number] [place] [address] [place] IgM [Mass/Vol] 121 mg/dL Normal 40-230 [facility] Comment on above: Order Comment: Speci men Type: BLOOD SPECIMENOrdering Facility: [facility] Address: [address] [place] [address] Performed By: #### S ERIMM ####[facility] [id number] [place] [address] [place] IgE SerPl-aCncon 10-13-2024 IgE Qn 7.0 kU/l Normal <114.0 [facility] Comment on above: Order Comment: Speci men Type: BLOOD SPECIMENOrdering Facility: [facility] Address: [address] [place] [address] Performed By: #### 1 9113-0 ####[facility] [id number] [place] [address] [place] Immunodeficiency panel FC (B ld)on 10-13-2024 CD3 cells (Bld) [#/Vol] 1123 cells/uL Normal 958-2388 [facility] Comment on above: Order Comment: Speci men Type: BLOOD SPECIMENOrdering Facility: [facility] Address: [address] [place] [address] Performed By: #### 4 5268-0 ####[facility] LABIA [id number] [place] [address] [place] CD3 cells/100 cells (Bld) 74 % Normal 60-89 [facility] Comment on above: Order Comment: Speci men Type: BLOOD SPECIMENOrdering Facility: [facility] Address: [address] [place] [address] Performed By: #### 4 5268-0 ####[facility] LABCLIA [id number] [place] [address] [place] CD3+CD4+ (T4 helper) cells (Bld) [#/Vol] 696 cells/uL Normal 533-1674 [facility] Comment on above: Order Comment: Speci men Type: BLOOD SPECIMENOrdering Facility: [facility] Address: [address] [place] [address] Performed By: #### 4 5268-0 ####[facility] LABIA [id number] [address] [facility] CD3+CD4+ (T4 helper) cells/100 cells (Bld) 46 % Normal 34-61 [facility] Comment on above: Order Comment: Speci men Type: BLOOD SPECIMENOrdering Facility: [facility] Address: [address] [place] [address] Performed By: #### 4 5268-0 ####[facility] LABIA [id number] [place] [address] [place] CD3+CD4+ (T4 helper) cells/CD3+CD8+ (T8 suppressor cells) cells (Bld) [# ratio] 2.10 % Normal 1.10-3.25 [facility] Comment on above: Order Comment: Speci men Type: BLOOD SPECIMENOrdering Facility: [facility] Address: [address] [place] [address] Performed By: #### 4 5268-0 ####[facility] LABIA [id number] [place] [address] [place] CD3+CD8+ (T8 suppressor cells) cells (Bld) [#/Vol] 331 cells/uL Normal 175-958 [facility] Comment on above: Order Comment: Speci men Type: BLOOD SPECIMENOrdering Facility: [facility] Address: [address] [place] [address] Performed By: #### 4 5268-0 ####[facility] LABIA [id number] [place] [address] [place] CD3+CD8+ (T8 suppressor cells) cells/100 cells (Bld) 22 % Normal 10-41 [facility] Comment on above: Order Comment: Speci men Type: BLOOD SPECIMENOrdering Facility: [facility] Address: [address] [place] [address] Performed By: #### 4 5268-0 ####[facility] LABIA [id number] [place] [address] [place] CD3-CD16+CD56+ (Natural killer) cells (Bld) [#/Vol] 105 cells/uL Normal 102-565 [facility] Comment on above: Order Comment: Speci men Type: BLOOD SPECIMENOrdering Facility: [facility] Address: [address] [place] [address] Performed By: #### 4 5268-0 ####[facility] LABIA [id number] [place] [address] [place] CD3-CD16+CD56+ (Natural killer) cells/100 cells (Bld) 7 % Normal 5-25 [facility] Comment on above: Order Comment: Speci men Type: BLOOD SPECIMENOrdering Facility: [facility] Address: [address] [place] [address] Performed By: #### 4 5268-0 ####[facility] LABIA [id number] [place] [address] [place] CD3-CD19+ cells (Bld) [#/Vol] 291 cells/uL Normal 75-660 [facility] Comment on above: Order Comment: Speci men Type: BLOOD SPECIMENOrdering Facility: [facility] Address: [address] [place] [address] Performed By: #### 4 5268-0 ####[facility] LABCLIA [id number] [address] [place] CD3-CD19+ cells/100 cells (Bld) 19 % Normal 5-22 [facility] Comment on above: Order Comment: Speci men Type: BLOOD SPECIMENOrdering Facility: [facility] Address: [address] [place] [address] Performed By: #### 4 5268-0 ####[facility] LABCLIA [id number] [address] [place] MANNOSE BINDING LECTINon MANNOSE BINDING LECTIN <40 Low >=76 [facility] Comment on above: Order Comment: Speci men Type: BLOOD SPECIMENOrdering Facility: [facility] Address: [address] [place] [address] Result Comment: INTE RPRETIVE INFORMATION: Mannose Binding LectinMannose-binding protein is a component of the innate or naturalimmune system which binds to mannose residues on a variety ofdifferent microorganisms. When bound, this lectin will trigger thecomplement pathway resulting in opsonization. Mannose-bindingprotein is also an acute phase reactant produced by the liver.Patients who have abnormal levels of mannose-binding protein mayhave recurrent significant infections in the absence ofabnormalities in the four major arms of the immune system.Abnormal mannose-binding protein concentrations have been found inpatients with infectious disorders such as tuberculosis andhepatitis B and in autoimmune disorders, including recurrentspontaneous and systemic lupus erythematosis.This test was developed and its performance characteristicsdetermined by [facility]. It has not been cleared orapproved by the U.S. Food and Drug Administration. This test wasperformed in a CLIA-certified laboratory and is intended forclinical purposes.Performed By: [facility] [place] [id number] Director: Marcus Rosado MD, PhDCLIA Number: [id number] Performed By: #### ASHLEY CHE ####[facility]OR[facility]IESCLIA [id number] [place] [address] PNEUMOCOCCAL IGG ABS, 23 SER OTYPESon 10-13-2024 PNEUMO SEROTYPE 1 IGG (P13,PNX) 1.38 ug/mL Normal [facility] Comment on above: Order Comment: Speci men Type: BLOOD SPECIMENOrdering Facility: [facility] Address: [address] [place] [address] Performed By: #### P NE23 ####[facility]OR[facility]IESCLIA [id number] [place] [address] PNEUMO SEROTYPE 10A IGG (PNX) 1.49 ug/mL Normal [facility] Comment on above: Order Comment: Speci men Type: BLOOD SPECIMENOrdering Facility: [facility] Address: [address] [place] [address] Performed By: #### P NE23 ####[facility]OR[facility]IESCLIA [id number] [place] [address] PNEUMO SEROTYPE 11A IGG (PNX) 0.24 ug/mL Normal [facility] Comment on above: Order Comment: Speci men Type: BLOOD SPECIMENOrdering Facility: [facility] Address: [address] [place] [address] Performed By: #### P NE23 ####[facility]IESCLIA [id number] [place] [address] PNEUMO SEROTYPE 12F IGG (PNX) 0.31 ug/mL Normal [facility] Comment on above: Order Comment: Speci men Type: BLOOD SPECIMENOrdering Facility: [facility] Address: [address] [place] [address] Performed By: #### P NE23 ####[facility]IESCLIA [id number] [place] [address] PNEUMO SEROTYPE 14 IGG (P7,P13,PNX) 0.99 ug/mL Normal [facility] Comment on above: Order Comment: Speci men Type: BLOOD SPECIMENOrdering Facility: [facility] Address: [address] [place] [address] Performed By: #### P NE23 ####[facility]IESCLIA [id number] [place] [address] PNEUMO SEROTYPE 15B IGG (PNX) 1.05 ug/mL Normal [facility] Comment on above: Order Comment: Speci men Type: BLOOD SPECIMENOrdering Facility: [facility] Address: [address] [place] [address] Performed By: #### P NE23 ####[facility]IESCLIA [id number] [place] [address] PNEUMO SEROTYPE 17F IGG (PNX) 0.92 ug/mL Normal [facility] Comment on above: Order Comment: Speci men Type: BLOOD SPECIMENOrdering Facility: [facility] Address: [address] [place] [address] Performed By: #### P NE23 ####[facility]IESCLIA [id number] [place] [address] PNEUMO SEROTYPE 18C IGG (P7,P13,PNX) 2.79 ug/mL Normal [facility] Comment on above: Order Comment: Speci men Type: BLOOD SPECIMENOrdering Facility: [facility] Address: [address] [place] [address] Performed By: #### P NE23 ####[facility]IESCLIA [id number] [place] [address] PNEUMO SEROTYPE 19A IGG (P13,PNX) 1.34 ug/mL Normal [facility] Comment on above: Order Comment: Speci men Type: BLOOD SPECIMENOrdering Facility: [facility] Address: [address] [place] [address] Performed By: #### P NE23 ####[facility]IESCLIA [id number] [place] [address] PNEUMO SEROTYPE 19F IGG (P7,P13,PNX) 5.89 ug/mL Normal [facility] Comment on above: Order Comment: Speci men Type: BLOOD SPECIMENOrdering Facility: [facility] Address: [address] [place] [address] Performed By: #### P NE23 ####[facility]IESCLIA [id number] [place] [address] PNEUMO SEROTYPE 2 IGG (PNX) 0.12 ug/mL Normal [facility] Comment on above: Order Comment: Speci men Type: BLOOD SPECIMENOrdering Facility: [facility] Address: [address] [place] [address] Performed By: #### P NE23 ####[facility]IESCLIA [id number] [place] [address] PNEUMO SEROTYPE 20 IGG (PNX) 0.22 ug/mL Normal [facility] Comment on above: Order Comment: Speci men Type: BLOOD SPECIMENOrdering Facility: [facility] Address: [address] [place] [address] Performed By: #### P NE23 ####[facility]IESCLIA [id number] [place] [address] PNEUMO SEROTYPE 22F IGG (PNX) 0.08 ug/mL Normal [facility] Comment on above: Order Comment: Speci men Type: BLOOD SPECIMENOrdering Facility: [facility] Address: [address] [place] [address] Performed By: #### P NE23 ####[facility]IESCLIA [id number] [place] [address] PNEUMO SEROTYPE 23F IGG (P7,P13,PNX) 0.18 ug/mL Normal [facility] Comment on above: Order Comment: Speci men Type: BLOOD SPECIMENOrdering Facility: [facility] Address: [address] [place] [address] Performed By: #### P NE23 ####[facility]IESCLIA [id number] [place] [address] PNEUMO SEROTYPE 3 IGG (P13,PNX) 3.32 ug/mL Normal [facility] Comment on above: Order Comment: Speci men Type: BLOOD SPECIMENOrdering Facility: [facility] Address: [address] [place] [address] Performed By: #### P NE23 ####[facility]IESCLIA [id number] [place] [address] PNEUMO SEROTYPE 33F IGG (PNX) <0.07 Normal [facility] Comment on above: Order Comment: Speci men Type: BLOOD SPECIMENOrdering Facility: [facility] Address: [address] [place] [address] Performed By: #### P NE23 ####[facility]IESCLIA [id number] [place] [address] PNEUMO SEROTYPE 4 IGG (P7,P13,PNX) 0.05 ug/mL Normal [facility] Comment on above: Order Comment: Speci men Type: BLOOD SPECIMENOrdering Facility: [facility] Address: [address] [place] [address] Performed By: #### P NE23 ####[facility]IESCLIA [id number] [place] [address] PNEUMO SEROTYPE 5 IGG (P13,PNX) 5.87 ug/mL Normal [facility] Comment on above: Order Comment: Speci men Type: BLOOD SPECIMENOrdering Facility: [facility] Address: [address] [place] [address] Performed By: #### P NE23 ####[facility]IESCLIA [id number] [place] [address] PNEUMO SEROTYPE 6B IGG (P7,P13,PNX) 0.23 ug/mL Normal [facility] Comment on above: Order Comment: Speci men Type: BLOOD SPECIMENOrdering Facility: [facility] Address: [address] [place] [address] Performed By: #### P NE23 ####[facility]IESCLIA [id number] [place] [address] PNEUMO SEROTYPE 7F IGG (P13,PNX) <0.04 Normal [facility] Comment on above: Order Comment: Speci men Type: BLOOD SPECIMENOrdering Facility: [facility] Address: [address] [place] [address] Performed By: #### P NE23 ####[facility]IESCLIA [id number] [place] [address] PNEUMO SEROTYPE 8 IGG (PNX) 0.10 ug/mL Normal [facility] Comment on above: Order Comment: Speci men Type: BLOOD SPECIMENOrdering Facility: [facility] Address: [address] [place] [address] Performed By: #### P NE23 ####[facility]IESCLIA [id number] [place] [address] PNEUMO SEROTYPE 9N IGG (PNX) 0.06 ug/mL Normal [facility] Comment on above: Order Comment: Speci men Type: BLOOD SPECIMENOrdering Facility: [facility] Address: [address] [place] [address] Performed By: #### P NE23 ####[facility]IESCLIA [id number] [place] [address] PNEUMO SEROTYPE 9V IGG (P7,P13,PNX) 0.06 ug/mL Normal [facility] Comment on above: Order Comment: Speci men Type: BLOOD SPECIMENOrdering Facility: [facility] Address: [address] [place] [address] Performed By: #### P NE23 ####[facility]IESCLIA [id number] [place] [address] PNEUMOCOCCAL INTERPRETATION See Note Normal [facility] Comment on above: Order Comment: Anti jacky Type: BLOOD SPECIMENOrdering Facility: [facility] Address: [address] [place] [address] Result Comment: INTE RPRETIVE INFORMATION: Streptococcus pneumoniae Antibodies, IgGA pre- and postvaccination comparison is required to adequatelyassess the humoral immune response to the pure polysaccharidePneumovax 23 (PNX) and/or the protein conjugated Prevnar 7 (P7),Prevnar 13 (P13), Prevnar 20 (P20), and Vaxneuvance (V15)Streptococcus pneumoniae vaccines. Prevaccination samples shouldbe collected prior to vaccine administration. Postvaccinationsamples should be obtained at least 4 weeks after immunization.Testing of postvaccination samples alone will provide only generalimmune status of the individual to various pneumococcal serotypes.In the case of pure polysaccharide vaccine, indication of immunesystem competence is further delineated as an adequate response toat least 50 percent of the serotypes in the vaccine challenge forthose 2-5 years of age and to at least 70 percent of the serotypesin the vaccine challenge for those 6-65 years of age. Individualimmune response may vary based on age, past exposure,immunocompetence, and pneumococcal serotype.Responder Status Antibody Ratio Nonresponder ........... Less than twofold increase and postvaccination concentration less than 1.3 ug/mL Good responder ......... At least a twofold increase and/or a postvaccination concentration greater than or equal to 1.3 ug/mLA response to 50-70 percent or more of the serotypes in thevaccine challenge is considered a normal humoral response.(Jessica,2014) Antibody concentration greater than 1.0-1.3 ug/mL isgenerally considered long-term protection.(Jessica, 2015)References:1. Jessica ACOSTA, Kleber FERRER, Jose X, et al. Multilaboratoryassessment of threshold versus fold-change algorithms forminimizing analytical variability in multiplexed pneumococcal IgGmeasurements. Clin Vaccine Immunol. 2014;21(7):982-988.2. Jessica ACOSTA, Tutu THOMPSON. Use and clinical interpretation ofpneumococcal antibody measurements in the evaluation of humoralimmune function. Clin Vaccine Immunol. 2015;22(2):148-152.This test was developed and its performance characteristicsdetermined by [facility]. It has not been cleared orapproved by the U.S. Food and Drug Administration. This test wasperformed in a CLIA-certified laboratory and is intended forclinical purposes.Performed By: [facility] [place], [place] [id number] Director: Marcus Rosado MD, PhDCLIA Number: [id number] Performed By: #### P NE23 ####[facility] [id number] [place] [address] Urgent Care Visit Reporton 0 09-19-2024 Urgent Care Visit Report [facility] [address], [address] [place] [address] OFFICE VISIT Date of Service: 09/19/24 MR#: [id number] Acct: [id number] Name: MIKAYLA BERTRAND Rep #: [id number] : 2000 Provider: [facility] Age/Sex: 24/F Location: [facility] Status: Signed Intake Vital Signs 08/13/24 15:51 09/19/24 09:57 Height 5 ft 1 in 5 ft 1 in Weight: 118 lb 4 oz BMI 22.3 BP 106/72 Blood Pressure Location Rt brachial Position Sitting Respiration 16 Pulse 84 Pulse Source Monitor Temp 98.6 F Temp Source Temporal Pulse Oximetry (%) 99 Oxygen Delivery Method room air Intake Visit Reasons: COUGH, SORE THROAT, CONGESTION Chief Complaint: cough, SOB, congestion Is patient in pain?: No Allergies cefdinir Allergy (Intermediate, Verified 09/19/24 09:56) Swelling diphenhydramine (From Benadryl) Allergy (Intermediate, Verified 09/19/24 09:56) Other prochlorperazine (From Compazine) Allergy (Intermediate, Verified 09/19/24 09:56) Other gluten Allergy (Verified 09/19/24 09:56) Upset Stomach latex Allergy (Verified 09/19/24 09:56) Hives midazolam HCl (From Versed) Allergy (Verified 09/19/24 09:56) Other Penicillins Allergy (Verified 09/19/24 09:56) Hives Medications ???Medication ???Instructions ???Recorded ???Confirmed ???Type methylphenidate HCl 18 mg 18 mg PO DAILY 05/09/21 09/19/24 H istory tablet,extended release 24 hr (Concerta) propranolol 60 mg capsule,24 60 mg PO DAILY 09/12/23 09/19/24 H istory hr,extended release gabapentin 100 mg capsule mg PO 05/24/24 09/19/24 History linaclotide 290 mcg capsule 290 mcg PO QDAY 05/24/24 09/19/24 History (Linzess) pyridostigmine bromide 60 mg tablet 60 mg PO TID 05/24/24 09/19/24 History famotidine 20 mg tablet 20 mg PO BID 08/13/24 09/19/24 His tory potassium chloride 10 mEq 10 meq PO QDAY 08/13/24 09/19/24 H istory capsule,extended release azithromycin 250 mg tablet See Rx Instructions PO .COMPLEX #6 09/19/24 09/19/24 Rx (Zithromax Z-Christopher) tabs prednisone 20 mg tablet 40 mg (2 x 20 mg) PO QDAY 3 days 0 09/19/24 09/19/24 Rx #6 tabs Patient : No PFSH Medical History Tortuous colon Autoimmune gastritis Gastroparesis Epilepsy POTS (postural orthostatic tachycardia syndrome) Constipation Elevated transaminase level Narcolepsy GERD (gastroesophageal reflux disease) Headaches, cluster Environmental allergies Surgical History History of bilateral salpingectomy History of foot surgery History of tonsillectomy and adenoidectomy Family History Father Migraine Mother Migraine Other Anxiety Asthma Hypertension Social History household members: spouse housing: house number of children: 0 current occupational status: employed current occupation: [employer] Smoking Status: Never smoker alcohol intake: never substance use type: does not use what type of physical activity do you participate in: walking and weight training frequency: 3-4 times per week duration: 30-45 minutes/day additional social history: - Alvarez HPI HPI Chief Complaint: cough, SOB, congestion Details: MIKAYLA BERTRAND, is a 24 F who presents to the office today for concerns regarding cough, shortness of breath, and fatigue for the last six days. She states cough for 2 days. Initially she was improving and then worsened with a fever of 103. ROS Const Constitutional: Positive for fatigue and abnormal sleep pattern (cough); No body ache, chills, fever(s), headache(s) or change in appetite Eyes Eyes: No blurry vision, change in vision, double vision, irritation, discharge, vision loss, dry eyes, bulging eyes, floaters, visual disturbances, eye pain, Light sensitivity, spots in vision, tunnel vision or other ENT ENT: No ear or mastoid pain, ear discharge, ear pressure, tinnitus, dizziness/vertigo, nosebleed/epistaxis, nasal congestion, nose pain, sinus pressure, sinus pain, nasal discharge, post nasal drip, headache(s), facial pain, dental pain, difficulty swallowing, bad breath, hoarseness, lip swelling, mouth lesions, mouth pain, neck pain, sore throat, tongue swelling or throat swelling Resp Respiratory: Positive for cough (Barky sound) Cough: Yes non-productive, shortness of breath and wheezing; No change in phlegm color, chest congestion, hemoptysis, pain on inspiration, pain with cough or stridor Cardio Cardiology: Positive for chest pain at rest (with activity and cough); No chest pain with exertion, shortness of breath, dyspnea on exertion or lightheadedness Gastro GI: Positive for abdominal pain (chr (more content not included)... Normal [facility] Potassiumon 09-10-2024 Potassium [Moles/Vol] 4.0 mmol/L Normal 3.3-5.1 [facility] Comment on above: Order Comment: Order Date: 07/01/24Order Info: 2823-3 - K Performed By: #### L 3400.3800, L503.6030 #### [facility] [address] [place], [place], [address] Potassium (Unsp spec) [Mass/ Vol]Ordered By: Carly Callejas on 09-10-2024 Potassium [Moles/Vol] 4.0 mmol/L 3.3-5.1 [facility] Potassium measurement (mass/ volume)Ordered By: Carly Callejas on 09-10-2024 Potassium (Unsp spec) [Mass/Vol] 4.0 mmol/L 3.3-5.1 [facility] CASE MANAGEMon 09-02-2024 CASE MANAGEM Normal [facility] CNDSon 09-02-2024 CNDS Normal [facility] CONSULT PROGon 09-02-2024 CONSULT PROG Normal [facility] Renal function 2000 panelon 09-02-2024 Albumin [Mass/Vol] 4.1 g/dL Normal 3.9-4.9 [facility] Comment on above: Order Comment: Speci men Type: BLOOD SPECIMENOrdering Facility: [facility] Address: [address] [place] [address] Performed By: #### 2 4362-6 ####[facility] LABCLIA [id number] [address] [address] [place] Anion gap [Moles/Vol] 10 mmol/L Normal 8-15 [facility] Comment on above: Order Comment: Speci men Type: BLOOD SPECIMENOrdering Facility: [facility] Address: [address] [place] [address] Performed By: #### 2 4362-6 ####[facility] LABCLIA [id number] [facility] [place] [id number] [place] Calcium [Mass/Vol] 9.0 mg/dL Normal 8.5-10.2 [facility] Comment on above: Order Comment: Speci men Type: BLOOD SPECIMENOrdering Facility: [facility] Address: [address] [place] [address] Performed By: #### 2 4362-6 ####[facility] LABCLIA [id number] [facility] [place] [id number] [place] Chloride [Moles/Vol] 105 mmol/L Normal 98-107 [facility] Comment on above: Order Comment: Speci men Type: BLOOD SPECIMENOrdering Facility: [facility] Address: [address] [place], [place] [address] Performed By: #### 2 4362-6 ####[facility] LABCLIA [id number] [facility] [place] [id number] [place] CO2 [Moles/Vol] 25 mmol/L Normal 22-30 [facility] Comment on above: Order Comment: Speci men Type: BLOOD SPECIMENOrdering Facility: [facility] Address: [address] [place] [address] Performed By: #### 2 4362-6 ####[facility] LABCLIA [id number] [facility] [place] [id number] [place] Creatinine [Mass/Vol] 0.91 mg/dL Normal 0.58-0.96 [facility] Comment on above: Order Comment: Speci men Type: BLOOD SPECIMENOrdering Facility: [facility] Address: [address] [place] [address] Performed By: #### 2 4362-6 ####[facility] LABCLIA [id number] [place] [address] [place] Creatinine and Glomerular filtration rate.predicted panel (S/P/Bld) 92 mL/min/1.73m??? Normal >=60 [facility] Comment on above: Order Comment: Lou rico Type: BLOOD SPECIMENOrdering Facility: [facility] Address: [address] [place] [address] Result Comment: Roseanne mated Glomerular Filtration Rate (eGFR) is calculated using the 2020 CKD-EPI creatinine equation. This equation utilizes serum creatinine, sex, and age as parameters. The creatinine assay has traceable calibration to isotope dilution-mass spectrometry. Refer to KDIGO guidelines for clinical interpretation. In patients with unstable renal function, e.g. those with acute kidney injury, the eGFR may not accurately reflect actual GFR. Performed By: #### 2 4362-6 ####[facility] LABIA [id number] [place] [address] [place] Glucose [Mass/Vol] 108 mg/dL High 74-99 [facility] Comment on above: Order Comment: Lou rico Type: BLOOD SPECIMENOrdering Facility: [facility] Address: [address] [place] [address] Result Comment: The [place] [employer] (ADA) provides guidance for cutoff values for fasting glucose and random glucose. The ADA defines fasting as no caloric intake for at least 8 hours. Fasting plasma glucose results between 100 to 125 mg/dL indicate increased risk for diabetes (prediabetes).Fasting plasma glucose results greater than or equal to 126 mg/dL meet the criteria for diagnosis of diabetes. In the absence of unequivocal hyperglycemia, results should be confirmed by repeat testing. In a patient with classic symptoms of hyperglycemia or hyperglycemic crisis, random plasma glucose results greater than or equal to 200 mg/dL meet the criteria for diagnosis of diabetes.Reference: Standards of Medical Care in Diabetes 2016, [place] [employer]. Diabetes Care. 2016.39(Suppl 1). Performed By: #### 2 4362-6 ####[facility] LABCLIA [id number] [address] [place] [address] [place] Phosphate [Mass/Vol] 4.0 mg/dL Normal 2.7-4.8 [facility] Comment on above: Order Comment: Speci men Type: BLOOD SPECIMENOrdering Facility: [facility] Address: [address] [place], [place] [address] Performed By: #### 2 4362-6 ####[facility] LABCLIA [id number] [address] [address] [place] Potassium [Moles/Vol] 3.7 mmol/L Normal 3.7-5.1 [facility] Comment on above: Order Comment: Speci men Type: BLOOD SPECIMENOrdering Facility: [facility] Address: [address] [place] [address] Performed By: #### 2 4362-6 ####[facility] LABIA [id number] [place] [id number] [place] Sodium [Moles/Vol] 140 mmol/L Normal 136-144 [facility] Comment on above: Order Comment: Speci men Type: BLOOD SPECIMENOrdering Facility: [facility] Address: [address] [place] [address] Performed By: #### 2 4362-6 ####[facility] LABIA [id number] [place] [id number] [place] Urea nitrogen [Mass/Vol] 10 mg/dL Normal 7-21 [facility] Comment on above: Order Comment: Speci men Type: BLOOD SPECIMENOrdering Facility: [facility] Address: [address] [place], [place] [address] Performed By: #### 2 4362-6 ####[facility] LABCLIA [id number] [address] [address] [place] ANES POSTPROC EVALon 09-01- 025 ANES POSTPROC EVAL Normal [facility] ANES PRE-OPon 09-01-2024 ANES PRE-OP Normal [facility] CBC panel Auto (Bld)on 09-01 Erythrocyte distribution width (RBC) [Ratio] 12.3 % Normal 11.5-15.0 [facility] Comment on above: Order Comment: Speci men Type: BLOOD SPECIMENOrdering Facility: [facility] Address: [address] [place] [address] Performed By: #### 5 8410-2 ####[facility] LABIA [id number] [place] [address] [place] Hematocrit (Bld) [Volume fraction] 34.7 % Low 36.0-46.0 [facility] Comment on above: Order Comment: Speci men Type: BLOOD SPECIMENOrdering Facility: [facility] Address: [address] [place] [address] Performed By: #### 5 8410-2 ####[facility] LABIA [id number] [place] [address] [place] Hemoglobin (Bld) [Mass/Vol] 11.6 g/dL Normal 11.5-15.5 [facility] Comment on above: Order Comment: Speci men Type: BLOOD SPECIMENOrdering Facility: [facility] Address: [address] [place] [address] Performed By: #### 5 8410-2 ####[facility] LABIA [id number] [place] [address] [place] MCH (RBC) [Entitic mass] 29.4 pg Normal 26.0-34.0 [facility] Comment on above: Order Comment: Speci men Type: BLOOD SPECIMENOrdering Facility: [facility] Address: [address] [place] [address] Performed By: #### 5 8410-2 ####[facility] LABIA [id number] [place] [address] [place] MCHC (RBC) [Mass/Vol] 33.4 g/dL Normal 30.5-36.0 [facility] Comment on above: Order Comment: Speci men Type: BLOOD SPECIMENOrdering Facility: [facility] Address: [address] [place] [address] Performed By: #### 5 8410-2 ####[facility] LABCLIA [id number] [place] [address] [place] MCV (RBC) [Entitic vol] 88.1 fL Normal 80.0-100.0 [facility] Comment on above: Order Comment: Speci men Type: BLOOD SPECIMENOrdering Facility: [facility] Address: [address] [place] [address] Performed By: #### 5 8410-2 ####[facility] LABIA [id number] [place] [address] [place] Nucleated RBC (Bld) [#/Vol] 10*3/uL Normal <0.01 [facility] Comment on above: Order Comment: Speci men Type: BLOOD SPECIMENOrdering Facility: [facility] Address: [address] [place] [address] Performed By: #### 5 8410-2 ####[facility] LABIA [id number] [place] [address] [place] Platelet mean volume (Bld) [Entitic vol] 10.2 fL Normal 9.0-12.7 [facility] Comment on above: Order Comment: Speci men Type: BLOOD SPECIMENOrdering Facility: [facility] Address: [address] [place] [address] Performed By: #### 5 8410-2 ####[facility] LABIA [id number] [place] [address] [place] Platelets (Bld) [#/Vol] 140 10*3/uL Low 150-400 [facility] Comment on above: Order Comment: Speci men Type: BLOOD SPECIMENOrdering Facility: [facility] Address: [address] [place] [address] Performed By: #### 5 8410-2 ####[facility] LABIA [id number] [place] [id number] [place] RBC (Bld) [#/Vol] 3.94 10*6/uL Normal 3.90-5.20 [facility] Comment on above: Order Comment: Speci men Type: BLOOD SPECIMENOrdering Facility: [facility] Address: [address] [place] [address] Performed By: #### 5 8410-2 ####[facility] LABIA [id number] [place] [address] [place] WBC (Bld) [#/Vol] 4.32 10*3/uL Normal 3.70-11.00 [facility] Comment on above: Order Comment: Speci men Type: BLOOD SPECIMENOrdering Facility: [facility] Address: [address] [place] [address] Performed By: #### 5 8410-2 ####[facility] [id number] [place] [id number] [place] CONSULTon 09-01-2024 CONSULT Normal [facility] NURSING PROGon 09-01-2024 NURSING PROG Normal [facility] NURSING PROG Normal [facility] Renal function 2000 panelon 09-01-2024 Albumin [Mass/Vol] 3.9 g/dL Normal 3.9-4.9 [facility] Comment on above: Order Comment: Speci men Type: BLOOD SPECIMENOrdering Facility: [facility] Address: [address] [place] [address] Performed By: #### 2 4362-6 ####[facility] LABIA [id number] [place] [id number] [place] Anion gap [Moles/Vol] 9 mmol/L Normal 8-15 [facility] Comment on above: Order Comment: Speci men Type: BLOOD SPECIMENOrdering Facility: [facility] Address: [address] [place], [place] [address] Performed By: #### 2 4362-6 ####[facility] LABCLIA [id number] [address] [address] [place] Calcium [Mass/Vol] 8.7 mg/dL Normal 8.5-10.2 [facility] Comment on above: Order Comment: Speci men Type: BLOOD SPECIMENOrdering Facility: [facility] Address: [address] [place], [place] [address] Performed By: #### 2 4362-6 ####[facility] LABCLIA [id number] [address] [address] [place] Chloride [Moles/Vol] 107 mmol/L Normal 98-107 [facility] Comment on above: Order Comment: Speci men Type: BLOOD SPECIMENOrdering Facility: [facility] Address: [address] [place], [place] [address] Performed By: #### 2 4362-6 ####[facility] LABCLIA [id number] [place] [id number] [place] CO2 [Moles/Vol] 24 mmol/L Normal 22-30 [facility] Comment on above: Order Comment: Speci men Type: BLOOD SPECIMENOrdering Facility: [facility] Address: [address] [place], [place] [address] Performed By: #### 2 4362-6 ####[facility] LABCLIA [id number] [facility] [address] [address] [place] Creatinine [Mass/Vol] 0.85 mg/dL Normal 0.58-0.96 [facility] Comment on above: Order Comment: Speci men Type: BLOOD SPECIMENOrdering Facility: [facility] Address: [address] [place], [place] [address] Performed By: #### 2 4362-6 ####[facility] LABCLIA [id number] [place] [address] [place] Creatinine and Glomerular filtration rate.predicted panel (S/P/Bld) 100 mL/min/1.73m??? Normal >=60 [facility] Comment on above: Order Comment: nAtmckay rico Type: BLOOD SPECIMENOrdering Facility: [facility] Address: [address] [place] [address] Result Comment: Roseanne mated Glomerular Filtration Rate (eGFR) is calculated using the 2020 CKD-EPI creatinine equation. This equation utilizes serum creatinine, sex, and age as parameters. The creatinine assay has traceable calibration to isotope dilution-mass spectrometry. Refer to KDIGO guidelines for clinical interpretation. In patients with unstable renal function, e.g. those with acute kidney injury, the eGFR may not accurately reflect actual GFR. Performed By: #### 2 4362-6 ####[facility] LABCLIA [id number] [place] [address] [place] Glucose [Mass/Vol] 86 mg/dL Normal 74-99 [facility] Comment on above: Order Comment: Lou rico Type: BLOOD SPECIMENOrdering Facility: [facility] Address: [address] [place] [address] Result Comment: The [place] [employer] (ADA) provides guidance for cutoff values for fasting glucose and random glucose. The ADA defines fasting as no caloric intake for at least 8 hours. Fasting plasma glucose results between 100 to 125 mg/dL indicate increased risk for diabetes (prediabetes).Fasting plasma glucose results greater than or equal to 126 mg/dL meet the criteria for diagnosis of diabetes. In the absence of unequivocal hyperglycemia, results should be confirmed by repeat testing. In a patient with classic symptoms of hyperglycemia or hyperglycemic crisis, random plasma glucose results greater than or equal to 200 mg/dL meet the criteria for diagnosis of diabetes.Reference: Standards of Medical Care in Diabetes 2016, [place] [employer]. Diabetes Care. 2016.39(Suppl 1). Performed By: #### 2 4362-6 ####[facility] LABCLIA [id number] [place] [id number] [place] Phosphate [Mass/Vol] 4.4 mg/dL Normal 2.7-4.8 [facility] Comment on above: Order Comment: Speci men Type: BLOOD SPECIMENOrdering Facility: [facility] Address: [address] [place], [place] [address] Performed By: #### 2 4362-6 ####[facility] LABCLIA [id number] [facility] [address] [address] [place] Potassium [Moles/Vol] 3.7 mmol/L Normal 3.7-5.1 [facility] Comment on above: Order Comment: Speci men Type: BLOOD SPECIMENOrdering Facility: [facility] Address: [address] [place] [address] Performed By: #### 2 4362-6 ####[facility] LABCLIA [id number] [place] [id number] [place] Sodium [Moles/Vol] 140 mmol/L Normal 136-144 [facility] Comment on above: Order Comment: Speci men Type: BLOOD SPECIMENOrdering Facility: [facility] Address: [address] [place], [place] [address] Performed By: #### 2 4362-6 ####[facility] LABCLIA [id number] [place] [id number] [place] Urea nitrogen [Mass/Vol] 9 mg/dL Normal 7-21 [facility] Comment on above: Order Comment: Speci men Type: BLOOD SPECIMENOrdering Facility: [facility] Address: [address] [place], [place] [address] Performed By: #### 2 4362-6 ####[facility] LABCLIA [id number] [place] [id number] [place] Upper GI endoscopyon 025 Upper GI endoscopy Normal [facility] ALLIED HEALTHon 08-31-2024 ALLIED HEALTH Normal [facility] CNPNon 08-31-2024 CNPN Normal [facility] NURSING PROGon 08-31-2024 NURSING PROG Normal [facility] PT panel Coag (PPP)on 2024 INR Coag (PPP) [Relative time] 1.1 {INR} Normal 0.9-1.3 [facility] Comment on above: Order Comment: Lou rico Type: BLOOD SPECIMENOrdering Facility: [facility] Address: [address] [place] [address] Result Comment: Wedny min K Antagonist (VKA) Therapeutic Range: INR 2 to 3 (Target INR of 2.5)Note: For patients treated with VKA drugs, such as warfarin, the [place] [employer] 2012 Guideline recommends a therapeutic INR range of 2 to 3 (target INR of 2.5). This recommendation includes high-risk patients with antiphospholipid syndrome with previous arterial or venous thromboembolism, current-generation mechanical or bioprosthetic aortic heart valve replacement.Note: Patients with mechanical aortic valve replacement and additional risk factors for thromboembolic events (atrial fibrillation, previous thromboembolism, LV dysfunction, hypercoagulable conditions) or an older generation mechanical AVR (i.e., ball in-Cage) or any mechanical MVR should have a INR therapeutic range of 2.5 to 3.5 (target INR of 3).Robert GH, et al. Chest 2012, 141:7S-47SNishimura RA, et al. [facility] 2017, 70: 252-289 Performed By: #### 3 4528-0 ####[facility] [id number] [place] [address] [place] PT Coag (PPP) [Time] 11.7 s Normal 9.7-13.0 [facility] Comment on above: Order Comment: Lou rico Type: BLOOD SPECIMENOrdering Facility: [facility] Address: [address] [place] [address] Performed By: #### 3 4528-0 ####[facility] [id number] [place] [id number] [place] Renal function 2000 panelon 08-31-2024 Albumin [Mass/Vol] 4.0 g/dL Normal 3.9-4.9 [facility] Comment on above: Order Comment: Speci men Type: BLOOD SPECIMENOrdering Facility: [facility] Address: [address] [place] [address] Performed By: #### 2 4362-6 ####[facility] LABCLIA [id number] [address] [address] [place] Anion gap [Moles/Vol] 11 mmol/L Normal 8-15 [facility] Comment on above: Order Comment: Speci men Type: BLOOD SPECIMENOrdering Facility: [facility] Address: [address] [place], [place] [address] Performed By: #### 2 4362-6 ####[facility] LABCLIA [id number] [address] [address] [place] Calcium [Mass/Vol] 8.8 mg/dL Normal 8.5-10.2 [facility] Comment on above: Order Comment: Speci men Type: BLOOD SPECIMENOrdering Facility: [facility] Address: [address] [place], [place] [address] Performed By: #### 2 4362-6 ####[facility] LABCLIA [id number] [place] [id number] [place] Chloride [Moles/Vol] 109 mmol/L High 98-107 [facility] Comment on above: Order Comment: Speci men Type: BLOOD SPECIMENOrdering Facility: [facility] Address: [address] [place], [place] [address] Performed By: #### 2 4362-6 ####[facility] LABCLIA [id number] [address] [address] [place] CO2 [Moles/Vol] 23 mmol/L Normal 22-30 [facility] Comment on above: Order Comment: Speci men Type: BLOOD SPECIMENOrdering Facility: [facility] Address: [address] [place], [place] [address] Performed By: #### 2 4362-6 ####[facility] LABCLIA [id number] [address] [address] [place] [address] [facility] Creatinine [Mass/Vol] 0.82 mg/dL Normal 0.58-0.96 [facility] Comment on above: Order Comment: Lou rico Type: BLOOD SPECIMENOrdering Facility: [facility] Address: [address] [place] [address] Performed By: #### 2 4362-6 ####[facility] LABIA [id number] [address] [facility] Creatinine and Glomerular filtration rate.predicted panel (S/P/Bld) 105 mL/min/1.73m??? Normal >=60 [facility] Comment on above: Order Comment: Lou rico Type: BLOOD SPECIMENOrdering Facility: [facility] Address: [address] [place] [address] Result Comment: Roseanne mated Glomerular Filtration Rate (eGFR) is calculated using the 2020 CKD-EPI creatinine equation. This equation utilizes serum creatinine, sex, and age as parameters. The creatinine assay has traceable calibration to isotope dilution-mass spectrometry. Refer to KDIGO guidelines for clinical interpretation. In patients with unstable renal function, e.g. those with acute kidney injury, the eGFR may not accurately reflect actual GFR. Performed By: #### 2 4362-6 ####[facility] LABCLIA [id number] [place] [id number] [place] Glucose [Mass/Vol] 90 mg/dL Normal 74-99 [facility] Comment on above: Order Comment: Lou rico Type: BLOOD SPECIMENOrdering Facility: [facility] Address: [address] [place] [address] Result Comment: The [place] [employer] (ADA) provides guidance for cutoff values for fasting glucose and random glucose. The ADA defines fasting as no caloric intake for at least 8 hours. Fasting plasma glucose results between 100 to 125 mg/dL indicate increased risk for diabetes (prediabetes).Fasting plasma glucose results greater than or equal to 126 mg/dL meet the criteria for diagnosis of diabetes. In the absence of unequivocal hyperglycemia, results should be confirmed by repeat testing. In a patient with classic symptoms of hyperglycemia or hyperglycemic crisis, random plasma glucose results greater than or equal to 200 mg/dL meet the criteria for diagnosis of diabetes.Reference: Standards of Medical Care in Diabetes 2016, [place] [employer]. Diabetes Care. 2016.39(Suppl 1). Performed By: #### 2 4362-6 ####[facility] LABCLIA [id number] [address] [address] [place] Phosphate [Mass/Vol] 4.3 mg/dL Normal 2.7-4.8 [facility] Comment on above: Order Comment: Speci men Type: BLOOD SPECIMENOrdering Facility: [facility] Address: [address] [place] [address] Performed By: #### 2 4362-6 ####[facility] LABIA [id number] [address] [address] [place] Potassium [Moles/Vol] 3.6 mmol/L Low 3.7-5.1 [facility] Comment on above: Order Comment: Speci men Type: BLOOD SPECIMENOrdering Facility: [facility] Address: [address] [place], [place] [id number] Performed By: #### 2 4362-6 ####[facility] LABIA [id number] [address] [address] [place] Sodium [Moles/Vol] 143 mmol/L Normal 136-144 [facility] Comment on above: Order Comment: Speci men Type: BLOOD SPECIMENOrdering Facility: [facility] Address: [address] [place] [address] Performed By: #### 2 4362-6 ####[facility] LABIA [id number] [address] [address] [place] Urea nitrogen [Mass/Vol] 7 mg/dL Normal 7-21 [facility] Comment on above: Order Comment: Speci men Type: BLOOD SPECIMENOrdering Facility: [facility] Address: [address] [place], [place] [address] Performed By: #### 2 4362-6 ####[facility] LABCLIA [id number] [place] [address] [place] TYPE + SCREENon 08-31-2024 ABO A Normal [facility] Comment on above: Order Comment: Speci men Type: BLOOD SPECIMENOrdering Facility: [facility] Address: [address] [place] [address] Performed By: #### T SCR ####[facility] BLOOD BANKCLIA [id number] [place] [address] [place] Rh Nom (Bld) Negative Normal [facility] Comment on above: Order Comment: Speci men Type: BLOOD SPECIMENOrdering Facility: [facility] Address: [address] [place] [address] Performed By: #### T SCR ####[facility] BLOOD BANKCLIA [id number] [place] [address] [place] TYPE AND SCREEN EXPIRATION 09/03/2024 23:59 Normal [facility] Comment on above: Order Comment: Speci men Type: BLOOD SPECIMENOrdering Facility: [facility] Address: [address] [place] [address] Performed By: #### T SCR ####[facility] BLOOD BANKCLIA [id number] [place] [address] [place] CASE MGT INIT ASSESon 2024 CASE MGT INIT ASSES Normal [facility] Renal function 2000 panelon 08-30-2024 Albumin [Mass/Vol] 4.2 g/dL Normal 3.9-4.9 [facility] Comment on above: Order Comment: Speci men Type: BLOOD SPECIMENOrdering Facility: [facility] Address: [address] [place] [address] Performed By: #### 2 4362-6 ####[facility] LABCLIA [id number] [id number] [address] [place] Anion gap [Moles/Vol] 16 mmol/L High 8-15 [facility] Comment on above: Order Comment: Speci men Type: BLOOD SPECIMENOrdering Facility: [facility] Address: [address] [place] [address] Performed By: #### 2 4362-6 ####[facility] LABCLIA [id number] [place] [address] [place] Calcium [Mass/Vol] 8.9 mg/dL Normal 8.5-10.2 [facility] Comment on above: Order Comment: Speci men Type: BLOOD SPECIMENOrdering Facility: [facility] Address: [address] [place] [address] Performed By: #### 2 4362-6 ####[facility] LABCLIA [id number] [place] [address] [place] Chloride [Moles/Vol] 111 mmol/L High 98-107 [facility] Comment on above: Order Comment: Speci men Type: BLOOD SPECIMENOrdering Facility: [facility] Address: [address] [place] [address] Performed By: #### 2 4362-6 ####[facility] LABCLIA [id number] [place] [address] [place] CO2 [Moles/Vol] 20 mmol/L Low 22-30 [facility] Comment on above: Order Comment: Speci men Type: BLOOD SPECIMENOrdering Facility: [facility] Address: [address] [place] [address] Performed By: #### 2 4362-6 ####[facility] LABCLIA [id number] [place] [address] [place] Creatinine [Mass/Vol] 0.71 mg/dL Normal 0.58-0.96 [facility] Comment on above: Order Comment: Speci men Type: BLOOD SPECIMENOrdering Facility: [facility] Address: [address] [place] [address] Performed By: #### 2 4362-6 ####[facility] LABCLIA [id number] [place] [address] [place] Creatinine and Glomerular filtration rate.predicted panel (S/P/Bld) 124 mL/min/1.73m??? Normal >=60 [facility] Comment on above: Order Comment: Lou rico Type: BLOOD SPECIMENOrdering Facility: [facility] Address: [address] [place] [address] Result Comment: Roseanne mated Glomerular Filtration Rate (eGFR) is calculated using the 2020 CKD-EPI creatinine equation. This equation utilizes serum creatinine, sex, and age as parameters. The creatinine assay has traceable calibration to isotope dilution-mass spectrometry. Refer to KDIGO guidelines for clinical interpretation. In patients with unstable renal function, e.g. those with acute kidney injury, the eGFR may not accurately reflect actual GFR. Performed By: #### 2 4362-6 ####[facility] LABCLIA [id number] [place] [address] [place] Glucose [Mass/Vol] 109 mg/dL High 74-99 [facility] Comment on above: Order Comment: Lou rico Type: BLOOD SPECIMENOrdering Facility: [facility] Address: [address] [place] [address] Result Comment: The [place] [employer] (ADA) provides guidance for cutoff values for fasting glucose and random glucose. The ADA defines fasting as no caloric intake for at least 8 hours. Fasting plasma glucose results between 100 to 125 mg/dL indicate increased risk for diabetes (prediabetes).Fasting plasma glucose results greater than or equal to 126 mg/dL meet the criteria for diagnosis of diabetes. In the absence of unequivocal hyperglycemia, results should be confirmed by repeat testing. In a patient with classic symptoms of hyperglycemia or hyperglycemic crisis, random plasma glucose results greater than or equal to 200 mg/dL meet the criteria for diagnosis of diabetes.Reference: Standards of Medical Care in Diabetes 2016, [place] [employer]. Diabetes Care. 2016.39(Suppl 1). Performed By: #### 2 4362-6 ####[facility] LABCLIA [id number] [place] [address] [place] Phosphate [Mass/Vol] 3.2 mg/dL Normal 2.7-4.8 [facility] Comment on above: Order Comment: Speci men Type: BLOOD SPECIMENOrdering Facility: [facility] Address: [address] [place] [address] Performed By: #### 2 4362-6 ####[facility] LABIA [id number] [place] [address] [place] Potassium [Moles/Vol] 3.4 mmol/L Low 3.7-5.1 [facility] Comment on above: Order Comment: Speci men Type: BLOOD SPECIMENOrdering Facility: [facility] Address: [address] [place] [address] Performed By: #### 2 4362-6 ####[facility] LABIA [id number] [place] [address] [place] Sodium [Moles/Vol] 147 mmol/L High 136-144 [facility] Comment on above: Order Comment: Speci men Type: BLOOD SPECIMENOrdering Facility: [facility] Address: [address] [place] [address] Performed By: #### 2 4362-6 ####[facility] LABIA [id number] [place] [address] [place] Urea nitrogen [Mass/Vol] 6 mg/dL Low 7-21 [facility] Comment on above: Order Comment: Speci men Type: BLOOD SPECIMENOrdering Facility: [facility] Address: [address] [place], [place] [address] Performed By: #### 2 4362-6 ####[facility] LABIA [id number] [place] [address] [place] XR ABDOMEN 1V SUPINEon 08-30 XR ABDOMEN 1V SUPINE Normal [facility] Basic metabolic 2000 panelon 08-29-2024 Anion gap [Moles/Vol] 11 mmol/L Normal 8-15 [facility] Comment on above: Order Comment: Speci men Type: BLOOD SPECIMENOrdering Facility: [facility] Address: [address] [place] [address] Performed By: #### 2 4321-2 ####[facility] LABCLIA [id number] [place] [address] [place] Calcium [Mass/Vol] 8.6 mg/dL Normal 8.5-10.2 [facility] Comment on above: Order Comment: Speci men Type: BLOOD SPECIMENOrdering Facility: [facility] Address: [address] [place] [address] Performed By: #### 2 4321-2 ####[facility] LABCLIA [id number] [place] [address] [place] Chloride [Moles/Vol] 109 mmol/L High 98-107 [facility] Comment on above: Order Comment: Speci men Type: BLOOD SPECIMENOrdering Facility: [facility] Address: [address] [place] [address] Performed By: #### 2 4321-2 ####[facility] LABCLIA [id number] [place] [address] [place] CO2 [Moles/Vol] 21 mmol/L Low 22-30 [facility] Comment on above: Order Comment: Speci men Type: BLOOD SPECIMENOrdering Facility: [facility] Address: [address] [place] [address] Performed By: #### 2 4321-2 ####[facility] LABCLIA [id number] [place] [address] [place] Creatinine [Mass/Vol] 0.70 mg/dL Normal 0.58-0.96 [facility] Comment on above: Order Comment: Speci men Type: BLOOD SPECIMENOrdering Facility: [facility] Address: [address] [place] [address] Performed By: #### 2 4321-2 ####[facility] LABCLIA [id number] [place] [address] [place] Creatinine and Glomerular filtration rate.predicted panel (S/P/Bld) 126 mL/min/1.73m??? Normal >=60 [facility] Comment on above: Order Comment: Lou rico Type: BLOOD SPECIMENOrdering Facility: [facility] Address: [address] [place] [address] Result Comment: Roseanne mated Glomerular Filtration Rate (eGFR) is calculated using the 2020 CKD-EPI creatinine equation. This equation utilizes serum creatinine, sex, and age as parameters. The creatinine assay has traceable calibration to isotope dilution-mass spectrometry. Refer to KDIGO guidelines for clinical interpretation. In patients with unstable renal function, e.g. those with acute kidney injury, the eGFR may not accurately reflect actual GFR. Performed By: #### 2 4321-2 ####[facility] LABCLIA [id number] [place] [address] [place] Glucose [Mass/Vol] 78 mg/dL Normal 74-99 [facility] Comment on above: Order Comment: Lou rico Type: BLOOD SPECIMENOrdering Facility: [facility] Address: [address] [place] [address] Result Comment: The [place] [employer] (ADA) provides guidance for cutoff values for fasting glucose and random glucose. The ADA defines fasting as no caloric intake for at least 8 hours. Fasting plasma glucose results between 100 to 125 mg/dL indicate increased risk for diabetes (prediabetes).Fasting plasma glucose results greater than or equal to 126 mg/dL meet the criteria for diagnosis of diabetes. In the absence of unequivocal hyperglycemia, results should be confirmed by repeat testing. In a patient with classic symptoms of hyperglycemia or hyperglycemic crisis, random plasma glucose results greater than or equal to 200 mg/dL meet the criteria for diagnosis of diabetes.Reference: Standards of Medical Care in Diabetes 2016, [place] [employer]. Diabetes Care. 2016.39(Suppl 1). Performed By: #### 2 4321-2 ####[facility] LABCLIA [id number] [place] [address] [place] Potassium [Moles/Vol] 4.1 mmol/L Normal 3.7-5.1 [facility] Comment on above: Order Comment: Speci men Type: BLOOD SPECIMENOrdering Facility: [facility] Address: [address] [place] [address] Performed By: #### 2 4321-2 ####[facility] LABCLIA [id number] [place] [address] [place] Sodium [Moles/Vol] 141 mmol/L Normal 136-144 [facility] Comment on above: Order Comment: Speci men Type: BLOOD SPECIMENOrdering Facility: [facility] Address: [address] [place] [address] Performed By: #### 2 4321-2 ####[facility] LABCLIA [id number] [place] [address] [place] Urea nitrogen [Mass/Vol] 11 mg/dL Normal 7-21 [facility] Comment on above: Order Comment: Speci men Type: BLOOD SPECIMENOrdering Facility: [facility] Address: [address] [place] [address] Performed By: #### 2 4321-2 ####[facility] LABCLIA [id number] [place] [address] [place] CBC panel Auto (Bld)on 08-29 Erythrocyte distribution width (RBC) [Ratio] 12.4 % Normal 11.5-15.0 [facility] Comment on above: Order Comment: Speci men Type: BLOOD SPECIMENOrdering Facility: [facility] Address: [address] [place] [address] Performed By: #### 5 8410-2 ####[facility] LABCLIA [id number] [place] [address] [place] Hematocrit (Bld) [Volume fraction] 35.0 % Low 36.0-46.0 [facility] Comment on above: Order Comment: Speci men Type: BLOOD SPECIMENOrdering Facility: [facility] Address: [address] [place] [address] Performed By: #### 5 8410-2 ####[facility] LABIA [id number] [place] [address] [place] Hemoglobin (Bld) [Mass/Vol] 11.9 g/dL Normal 11.5-15.5 [facility] Comment on above: Order Comment: Speci men Type: BLOOD SPECIMENOrdering Facility: [facility] Address: [address] [place] [address] Performed By: #### 5 8410-2 ####[facility] [id number] [place] [address] [place] MCH (RBC) [Entitic mass] 30.1 pg Normal 26.0-34.0 [facility] Comment on above: Order Comment: Speci men Type: BLOOD SPECIMENOrdering Facility: [facility] Address: [address] [place] [address] Performed By: #### 5 8410-2 ####[facility] LABSOU[facility] [id number] [place] [address] [place] MCHC (RBC) [Mass/Vol] 34.0 g/dL Normal 30.5-36.0 [facility] Comment on above: Order Comment: Speci men Type: BLOOD SPECIMENOrdering Facility: [facility] Address: [address] [place] [address] Performed By: #### 5 8410-2 ####[facility] LABS[facility] [id number] [place] [address] [place] MCV (RBC) [Entitic vol] 88.4 fL Normal 80.0-100.0 [facility] Comment on above: Order Comment: Speci men Type: BLOOD SPECIMENOrdering Facility: [facility] Address: [address] [place] [address] Performed By: #### 5 8410-2 ####[facility] LABCLIA [id number] [place] [address] [place] Nucleated RBC (Bld) [#/Vol] 10*3/uL Normal <0.01 [facility] Comment on above: Order Comment: Speci men Type: BLOOD SPECIMENOrdering Facility: [facility] Address: [address] [place] [address] Performed By: #### 5 8410-2 ####[facility] LABIA [id number] [place] [address] [place] Platelet mean volume (Bld) [Entitic vol] 10.1 fL Normal 9.0-12.7 [facility] Comment on above: Order Comment: Speci men Type: BLOOD SPECIMENOrdering Facility: [facility] Address: [address] [place] [address] Performed By: #### 5 8410-2 ####[facility] LABIA [id number] [place] [address] [place] Platelets (Bld) [#/Vol] 155 10*3/uL Normal 150-400 [facility] Comment on above: Order Comment: Speci men Type: BLOOD SPECIMENOrdering Facility: [facility] Address: [address] [place] [address] Performed By: #### 5 8410-2 ####[facility] LABIA [id number] [place] [address] [place] RBC (Bld) [#/Vol] 3.96 10*6/uL Normal 3.90-5.20 [facility] Comment on above: Order Comment: Speci men Type: BLOOD SPECIMENOrdering Facility: [facility] Address: [address] [place] [address] Performed By: #### 5 8410-2 ####[facility] LABIA [id number] [place] [address] [place] WBC (Bld) [#/Vol] 3.72 10*3/uL Normal 3.70-11.00 [facility] Comment on above: Order Comment: Speci men Type: BLOOD SPECIMENOrdering Facility: [facility] Address: [address] [place] [address] Performed By: #### 5 8410-2 ####[facility] LABCLIA [id number] [place] [address] [place] Basic metabolic 2000 panelon 08-28-2024 Anion gap [Moles/Vol] 12 mmol/L Normal 8-15 [facility] Comment on above: Order Comment: Speci men Type: BLOOD SPECIMENOrdering Facility: [facility] Address: [address] [place] [address] Performed By: #### 2 4321-2 ####[facility] LABCLIA [id number] [place] [address] [place] Calcium [Mass/Vol] 8.4 mg/dL Low 8.5-10.2 [facility] Comment on above: Order Comment: Speci men Type: BLOOD SPECIMENOrdering Facility: [facility] Address: [address] [place] [address] Performed By: #### 2 4321-2 ####[facility] LABCLIA [id number] [place] [address] [place] Chloride [Moles/Vol] 107 mmol/L Normal 98-107 [facility] Comment on above: Order Comment: Speci men Type: BLOOD SPECIMENOrdering Facility: [facility] Address: [address] [place] [address] Performed By: #### 2 4321-2 ####[facility] LABCLIA [id number] [place] [address] [place] CO2 [Moles/Vol] 21 mmol/L Low 22-30 [facility] Comment on above: Order Comment: Speci men Type: BLOOD SPECIMENOrdering Facility: [facility] Address: [address] [place] [address] Performed By: #### 2 4321-2 ####[facility] LABIA [id number] [place] [address] [place] Creatinine [Mass/Vol] 0.65 mg/dL Normal 0.58-0.96 [facility] Comment on above: Order Comment: Speci men Type: BLOOD SPECIMENOrdering Facility: [facility] Address: [address] [place] [address] Performed By: #### 2 4321-2 ####[facility] LABIA [id number] [address] [place] Creatinine and Glomerular filtration rate.predicted panel (S/P/Bld) 129 mL/min/1.73m??? Normal >=60 [facility] Comment on above: Order Comment: Speci men Type: BLOOD SPECIMENOrdering Facility: [facility] Address: [address] [place] [address] Result Comment: Roseanne mated Glomerular Filtration Rate (eGFR) is calculated using the 2020 CKD-EPI creatinine equation. This equation utilizes serum creatinine, sex, and age as parameters. The creatinine assay has traceable calibration to isotope dilution-mass spectrometry. Refer to KDIGO guidelines for clinical interpretation. In patients with unstable renal function, e.g. those with acute kidney injury, the eGFR may not accurately reflect actual GFR. Performed By: #### 2 4321-2 ####[facility] LABIA [id number] [place] [address] [place] Glucose [Mass/Vol] 66 mg/dL Low 74-99 [facility] Comment on above: Order Comment: Speci men Type: BLOOD SPECIMENOrdering Facility: [facility] Address: [address] [place] [address] Result Comment: The [place] [employer] (ADA) provides guidance for cutoff values for fasting glucose and random glucose. The ADA defines fasting as no caloric intake for at least 8 hours. Fasting plasma glucose results between 100 to 125 mg/dL indicate increased risk for diabetes (prediabetes).Fasting plasma glucose results greater than or equal to 126 mg/dL meet the criteria for diagnosis of diabetes. In the absence of unequivocal hyperglycemia, results should be confirmed by repeat testing. In a patient with classic symptoms of hyperglycemia or hyperglycemic crisis, random plasma glucose results greater than or equal to 200 mg/dL meet the criteria for diagnosis of diabetes.Reference: Standards of Medical Care in Diabetes 2016, [place] [employer]. Diabetes Care. 2016.39(Suppl 1). Performed By: #### 2 4321-2 ####[facility] LABCLIA [id number] [place] [address] [place] Potassium [Moles/Vol] 3.5 mmol/L Low 3.7-5.1 [facility] Comment on above: Order Comment: Luo rico Type: BLOOD SPECIMENOrdering Facility: [facility] Address: [address] [place] [address] Performed By: #### 2 4321-2 ####[facility] LABIA [id number] [place] [address] [place] Sodium [Moles/Vol] 140 mmol/L Normal 136-144 [facility] Comment on above: Order Comment: Lou rico Type: BLOOD SPECIMENOrdering Facility: [facility] Address: [address] [place] [address] Performed By: #### 2 4321-2 ####[facility] LABCLIA [id number] [place] [address] [place] Urea nitrogen [Mass/Vol] 12 mg/dL Normal 7-21 [facility] Comment on above: Order Comment: Lou rico Type: BLOOD SPECIMENOrdering Facility: [facility] Address: [address] [place] [address] Performed By: #### 2 4321-2 ####[facility] LABCLIA [id number] [place] [address] [place] CBC panel Auto (Bld)on 08-28 Erythrocyte distribution width (RBC) [Ratio] 12.6 % Normal 11.5-15.0 [facility] Comment on above: Order Comment: Speci men Type: BLOOD SPECIMENOrdering Facility: [facility] Address: [address] [place] [address] Performed By: #### 5 8410-2 ####[facility] LABCLIA [id number] [place] [address] [place] Hematocrit (Bld) [Volume fraction] 34.8 % Low 36.0-46.0 [facility] Comment on above: Order Comment: Speci men Type: BLOOD SPECIMENOrdering Facility: [facility] Address: [address] [place] [address] Performed By: #### 5 8410-2 ####[facility] LABIA [id number] [place] [address] [place] Hemoglobin (Bld) [Mass/Vol] 11.6 g/dL Normal 11.5-15.5 [facility] Comment on above: Order Comment: Speci men Type: BLOOD SPECIMENOrdering Facility: [facility] Address: [address] [place] [address] Performed By: #### 5 8410-2 ####[facility] LABIA [id number] [place] [address] [place] MCH (RBC) [Entitic mass] 29.4 pg Normal 26.0-34.0 [facility] Comment on above: Order Comment: Speci men Type: BLOOD SPECIMENOrdering Facility: [facility] Address: [address] [place] [address] Performed By: #### 5 8410-2 ####[facility] LABCLIA [id number] [place] [address] [place] MCHC (RBC) [Mass/Vol] 33.3 g/dL Normal 30.5-36.0 [facility] Comment on above: Order Comment: Speci men Type: BLOOD SPECIMENOrdering Facility: [facility] Address: [address] [place] [address] Performed By: #### 5 8410-2 ####[facility] LABCLIA [id number] [place] [address] [place] MCV (RBC) [Entitic vol] 88.1 fL Normal 80.0-100.0 [facility] Comment on above: Order Comment: Speci men Type: BLOOD SPECIMENOrdering Facility: [facility] Address: [address] [place] [address] Performed By: #### 5 8410-2 ####[facility] LABCLIA [id number] [place] [address] [place] Nucleated RBC (Bld) [#/Vol] 10*3/uL Normal <0.01 [facility] Comment on above: Order Comment: Speci men Type: BLOOD SPECIMENOrdering Facility: [facility] Address: [address] [place] [address] Performed By: #### 5 8410-2 ####[facility] LABCLIA [id number] [place] [address] [place] Platelet mean volume (Bld) [Entitic vol] 10.2 fL Normal 9.0-12.7 [facility] Comment on above: Order Comment: Speci men Type: BLOOD SPECIMENOrdering Facility: [facility] Address: [address] [place] [address] Performed By: #### 5 8410-2 ####[facility] LABCLIA [id number] [place] [address] [place] Platelets (Bld) [#/Vol] 144 10*3/uL Low 150-400 [facility] Comment on above: Order Comment: Speci men Type: BLOOD SPECIMENOrdering Facility: [facility] Address: [address] [place] [address] Performed By: #### 5 8410-2 ####[facility] LABIA [id number] [place] [address] [place] RBC (Bld) [#/Vol] 3.95 10*6/uL Normal 3.90-5.20 [facility] Comment on above: Order Comment: Speci men Type: BLOOD SPECIMENOrdering Facility: [facility] Address: [address] [place] [address] Performed By: #### 5 8410-2 ####[facility] LABIA [id number] [place] [address] [place] WBC (Bld) [#/Vol] 4.11 10*3/uL Normal 3.70-11.00 [facility] Comment on above: Order Comment: Speci men Type: BLOOD SPECIMENOrdering Facility: [facility] Address: [address] [place] [address] Performed By: #### 5 8410-2 ####[facility] [id number] [place] [address] [place] CBC W Auto Differential pane l (Bld)on 08-27-2024 Basophils (Bld) [#/Vol] 10*3/uL Normal <0.11 [facility] Comment on above: Order Comment: Speci men Type: BLOOD SPECIMENOrdering Facility: [facility] Address: [address] [place] [address] Performed By: #### 5 7021-8 ####[facility] LABIA [id number] [place] [address] [place] Basophils/100 WBC (Bld) 0.1 % Normal [facility] Comment on above: Order Comment: Speci men Type: BLOOD SPECIMENOrdering Facility: [facility] Address: [address] [place] [address] Performed By: #### 5 7021-8 ####[facility] LABIA [id number] [place] [address] [place] Differential cell count method Nom (Bld) Auto Normal [facility] Comment on above: Order Comment: Speci men Type: BLOOD SPECIMENOrdering Facility: [facility] Address: [address] [place] [address] Performed By: #### 5 7021-8 ####[facility] LABCLIA [id number] [place] [address] [place] Eosinophils (Bld) [#/Vol] 10*3/uL Normal <0.46 [facility] Comment on above: Order Comment: Speci men Type: BLOOD SPECIMENOrdering Facility: [facility] Address: [address] [place] [address] Performed By: #### 5 7021-8 ####[facility] LABCLIA [id number] [place] [address] [place] Eosinophils/100 WBC (Bld) 0.0 % Normal [facility] Comment on above: Order Comment: Speci men Type: BLOOD SPECIMENOrdering Facility: [facility] Address: [address] [place] [address] Performed By: #### 5 7021-8 ####[facility] LABCLIA [id number] [place] [address] [place] Erythrocyte distribution width (RBC) [Ratio] 12.8 % Normal 11.5-15.0 [facility] Comment on above: Order Comment: Speci men Type: BLOOD SPECIMENOrdering Facility: [facility] Address: [address] [place] [address] Performed By: #### 5 7021-8 ####[facility] LABCLIA [id number] [place] [address] [place] Hematocrit (Bld) [Volume fraction] 42.3 % Normal 36.0-46.0 [facility] Comment on above: Order Comment: Speci men Type: BLOOD SPECIMENOrdering Facility: [facility] Address: [address] [place] [address] Performed By: #### 5 7021-8 ####[facility] LABCLIA [id number] [place] [address] [place] Hemoglobin (Bld) [Mass/Vol] 14.4 g/dL Normal 11.5-15.5 [facility] Comment on above: Order Comment: Speci men Type: BLOOD SPECIMENOrdering Facility: [facility] Address: [address] [place] [address] Performed By: #### 5 7021-8 ####[facility] LABCLIA [id number] [place] [address] [place] Immature granulocytes (Bld) [#/Vol] 10*3/uL Normal <0.10 [facility] Comment on above: Order Comment: Speci men Type: BLOOD SPECIMENOrdering Facility: [facility] Address: [address] [place] [address] Performed By: #### 5 7021-8 ####[facility] LABCLIA [id number] [place] [address] [place] Immature granulocytes/100 WBC (Bld) 0.2 % Normal [facility] Comment on above: Order Comment: Speci men Type: BLOOD SPECIMENOrdering Facility: [facility] Address: [address] [place] [address] Performed By: #### 5 7021-8 ####[facility] LABCLIA [id number] [place] [address] [place] Lymphocytes (Bld) [#/Vol] 1.37 10*3/uL Normal 1.00-4.00 [facility] Comment on above: Order Comment: Speci men Type: BLOOD SPECIMENOrdering Facility: [facility] Address: [address] [place] [address] Performed By: #### 5 7021-8 ####[facility] LABCLIA [id number] [id number] [address] [place] Lymphocytes/100 WBC (Bld) 15.8 % Normal [facility] Comment on above: Order Comment: Speci men Type: BLOOD SPECIMENOrdering Facility: [facility] Address: [address] [place] [address] Performed By: #### 5 7021-8 ####[facility] LABCLIA [id number] [place] [address] [place] MCH (RBC) [Entitic mass] 29.5 pg Normal 26.0-34.0 [facility] Comment on above: Order Comment: Speci men Type: BLOOD SPECIMENOrdering Facility: [facility] Address: [address] [place] [address] Performed By: #### 5 7021-8 ####[facility] LABCLIA [id number] [place] [address] [place] MCHC (RBC) [Mass/Vol] 34.0 g/dL Normal 30.5-36.0 [facility] Comment on above: Order Comment: Speci men Type: BLOOD SPECIMENOrdering Facility: [facility] Address: [address] [place] [address] Performed By: #### 5 7021-8 ####[facility] LABIA [id number] [place] [address] [place] MCV (RBC) [Entitic vol] 86.7 fL Normal 80.0-100.0 [facility] Comment on above: Order Comment: Speci men Type: BLOOD SPECIMENOrdering Facility: [facility] Address: [address] [place] [address] Performed By: #### 5 7021-8 ####[facility] LABIA [id number] [place] [address] [place] Monocytes (Bld) [#/Vol] 0.57 10*3/uL Normal <0.87 [facility] Comment on above: Order Comment: Speci men Type: BLOOD SPECIMENOrdering Facility: [facility] Address: [address] [place] [address] Performed By: #### 5 7021-8 ####[facility] LABCLIA [id number] [place] [address] [place] Monocytes/100 WBC (Bld) 6.6 % Normal [facility] Comment on above: Order Comment: Speci men Type: BLOOD SPECIMENOrdering Facility: [facility] Address: [address] [place] [address] Performed By: #### 5 7021-8 ####[facility] LABCLIA [id number] [place] [address] [place] Neutrophils (Bld) [#/Vol] 6.72 10*3/uL Normal 1.45-7.50 [facility] Comment on above: Order Comment: Speci men Type: BLOOD SPECIMENOrdering Facility: [facility] Address: [address] [place] [address] Performed By: #### 5 7021-8 ####[facility] LABCLIA [id number] [place] [address] [place] Neutrophils/100 WBC (Bld) 77.3 % Normal [facility] Comment on above: Order Comment: Speci men Type: BLOOD SPECIMENOrdering Facility: [facility] Address: [address] [place] [address] Performed By: #### 5 7021-8 ####[facility] LABCLIA [id number] [place] [address] [place] Nucleated RBC (Bld) [#/Vol] 10*3/uL Normal <0.01 [facility] Comment on above: Order Comment: Speci men Type: BLOOD SPECIMENOrdering Facility: [facility] Address: [address] [place] [address] Performed By: #### 5 7021-8 ####[facility] LABCLIA [id number] [place] [address] [place] Nucleated RBC/100 WBC (Bld) [Ratio] 0.0 /100 WBC Normal [facility] Comment on above: Order Comment: Speci men Type: BLOOD SPECIMENOrdering Facility: [facility] Address: [address] [place] [address] Performed By: #### 5 7021-8 ####[facility] LABCLIA [id number] [place] [address] [place] Platelet mean volume (Bld) [Entitic vol] 9.8 fL Normal 9.0-12.7 [facility] Comment on above: Order Comment: Speci men Type: BLOOD SPECIMENOrdering Facility: [facility] Address: [address] [place] [address] Performed By: #### 5 7021-8 ####[facility] LABCLIA [id number] [place] [address] [place] Platelets (Bld) [#/Vol] 210 10*3/uL Normal 150-400 [facility] Comment on above: Order Comment: Speci men Type: BLOOD SPECIMENOrdering Facility: [facility] Address: [address] [place] [address] Performed By: #### 5 7021-8 ####[facility] LABCLIA [id number] [place] [address] [place] RBC (Bld) [#/Vol] 4.88 10*6/uL Normal 3.90-5.20 [facility] Comment on above: Order Comment: Speci men Type: BLOOD SPECIMENOrdering Facility: [facility] Address: [address] [place] [address] Performed By: #### 5 7021-8 ####[facility] LABCLIA [id number] [place] [address] [place] WBC (Bld) [#/Vol] 8.69 10*3/uL Normal 3.70-11.00 [facility] Comment on above: Order Comment: Speci men Type: BLOOD SPECIMENOrdering Facility: [facility] Address: [address] [place] [address] Performed By: #### 5 7021-8 ####[facility] LABCLIA [id number] [address] [address] [place] Comprehensive metabolic 2000 panelon 08-27-2024 Albumin [Mass/Vol] 4.7 g/dL Normal 3.9-4.9 [facility] Comment on above: Order Comment: Speci men Type: BLOOD SPECIMENOrdering Facility: [facility] Address: [address] [place] [address] Performed By: #### 3 040-3, , ####[facility] LABIA [id number] [place] [address] [place] ALP [Catalytic activity/Vol] 43 U/L Normal 34-123 [facility] Comment on above: Order Comment: Speci men Type: BLOOD SPECIMENOrdering Facility: [facility] Address: [address] [place] [address] Performed By: #### 3 040-3, , ####[facility] LABIA [id number] [place] [address] [place] ALT [Catalytic activity/Vol] 11 U/L Normal 7-38 [facility] Comment on above: Order Comment: Speci men Type: BLOOD SPECIMENOrdering Facility: [facility] Address: [address] [place] [address] Performed By: #### 3 040-3, , ####[facility] LABIA [id number] [place] [address] [place] Anion gap [Moles/Vol] 6 mmol/L Low 8-15 [facility] Comment on above: Order Comment: Speci men Type: BLOOD SPECIMENOrdering Facility: [facility] Address: [address] [place] [address] Performed By: #### 3 040-3, 83138-0, ####[facility] LABIA [id number] [place] [address] [place] AST [Catalytic activity/Vol] 21 U/L Normal 13-35 [facility] Comment on above: Order Comment: Speci men Type: BLOOD SPECIMENOrdering Facility: [facility] Address: [address] [place] [address] Performed By: #### 3 040-3, , ####[facility] LABIA [id number] [place] [address] [place] Bilirubin [Mass/Vol] 0.3 mg/dL Normal 0.2-1.3 [facility] Comment on above: Order Comment: Speci men Type: BLOOD SPECIMENOrdering Facility: [facility] Address: [address] [place] [address] Performed By: #### 3 040-3, , ####[facility] [id number] [place] [address] [place] Calcium [Mass/Vol] 9.5 mg/dL Normal 8.5-10.2 [facility] Comment on above: Order Comment: Speci men Type: BLOOD SPECIMENOrdering Facility: [facility] Address: [address] [place] [address] Performed By: #### 3 040-3, , ####[facility] LABIA [id number] [place] [id number] [place] Chloride [Moles/Vol] 106 mmol/L Normal 98-107 [facility] Comment on above: Order Comment: Speci men Type: BLOOD SPECIMENOrdering Facility: [facility] Address: [address] [place] [address] Performed By: #### 3 040-3, , ####[facility] LABCLIA [id number] [place] [address] [place] CO2 [Moles/Vol] 28 mmol/L Normal 22-30 [facility] Comment on above: Order Comment: Speci men Type: BLOOD SPECIMENOrdering Facility: [facility] Address: [address] [place] [address] Performed By: #### 3 040-3, , ####[facility] LABIA [id number] [place] [address] [place] Creatinine [Mass/Vol] 0.65 mg/dL Normal 0.58-0.96 [facility] Comment on above: Order Comment: Speci men Type: BLOOD SPECIMENOrdering Facility: [facility] Address: [address] [place] [address] Performed By: #### 3 040-3, , ####[facility] LABIA [id number] [place] [address] [facility] [place] Creatinine and Glomerular filtration rate.predicted panel (S/P/Bld) 129 mL/min/1.73m??? Normal >=60 [facility] Comment on above: Order Comment: Speci men Type: BLOOD SPECIMENOrdering Facility: [facility] Address: [address] [place] [address] Result Comment: Roseanne mated Glomerular Filtration Rate (eGFR) is calculated using the 2020 CKD-EPI creatinine equation. This equation utilizes serum creatinine, sex, and age as parameters. The creatinine assay has traceable calibration to isotope dilution-mass spectrometry. Refer to KDIGO guidelines for clinical interpretation. In patients with unstable renal function, e.g. those with acute kidney injury, the eGFR may not accurately reflect actual GFR. Performed By: #### 3 040-3, , ####[facility] LABIA [id number] [address] [id number] [address] [place] Glucose [Mass/Vol] 99 mg/dL Normal 74-99 [facility] Comment on above: Order Comment: Speci men Type: BLOOD SPECIMENOrdering Facility: [facility] Address: [address] [place] [address] Result Comment: The [place] [employer] (ADA) provides guidance for cutoff values for fasting glucose and random glucose. The ADA defines fasting as no caloric intake for at least 8 hours. Fasting plasma glucose results between 100 to 125 mg/dL indicate increased risk for diabetes (prediabetes).Fasting plasma glucose results greater than or equal to 126 mg/dL meet the criteria for diagnosis of diabetes. In the absence of unequivocal hyperglycemia, results should be confirmed by repeat testing. In a patient with classic symptoms of hyperglycemia or hyperglycemic crisis, random plasma glucose results greater than or equal to 200 mg/dL meet the criteria for diagnosis of diabetes.Reference: Standards of Medical Care in Diabetes 2016, [place] [employer]. Diabetes Care. 2016.39(Suppl 1). Performed By: #### 3 040-3, , ####[facility] LABCLIA [id number] [place] [address] [place] Potassium [Moles/Vol] 4.6 mmol/L Normal 3.7-5.1 [facility] Comment on above: Order Comment: Speci men Type: BLOOD SPECIMENOrdering Facility: [facility] Address: [address] [place] [address] Performed By: #### 3 040-3, , ####[facility] LABCLIA [id number] [place] [id number] [place] Protein [Mass/Vol] 7.5 g/dL Normal 6.3-8.0 [facility] Comment on above: Order Comment: Speci men Type: BLOOD SPECIMENOrdering Facility: [facility] Address: [address] [place] [address] Performed By: #### 3 040-3, , ####[facility] LABCLIA [id number] [place] [id number] [place] Sodium [Moles/Vol] 140 mmol/L Normal 136-144 [facility] Comment on above: Order Comment: Speci men Type: BLOOD SPECIMENOrdering Facility: [facility] Address: [address] [place] [address] Performed By: #### 3 040-3, 39250-6, 30571-4 ####[facility] LABCLIA [id number] [place] [id number] [place] Urea nitrogen [Mass/Vol] 15 mg/dL Normal 7-21 [facility] Comment on above: Order Comment: Speci men Type: BLOOD SPECIMENOrdering Facility: [facility] Address: [address] [place] [address] Performed By: #### 3 040-3, 97427-5, 40565-7 ####[facility] LABCLIA [id number] [place] [id number] [place] ED NOTEon 08-27-2024 ED NOTE HNO ID: [id number] Author: ELIDIA KARIMI RN Service: Emergency Medicine Author Type: Registered Nurse Type: ED Notes Filed: 08/27/2024 17:30 Note Text: Awaiting pyridostigmine from [facility] Normal [facility] ED NOTE HNO ID: [id number] Author: PEYTON BAKER RN Service: Emergency Medicine Author Type: Registered Nurse Type: ED Notes Filed: 08/27/2024 15:37 Note Text: Report to Elidia PANDYA Normal [facility] ED PROV NOTEon 08-27-2024 ED PROV NOTE Normal [facility] ED Triage Noteon 08-27-2024 ED Triage Note Normal [facility] HISTORY PHYSICALon HISTORY PHYSICAL Normal [facility] Lipase SerPl-cCncon 08-27-19 25 Lipase [Catalytic activity/Vol] 33 U/L Normal 16-61 [facility] Comment on above: Order Comment: Speci men Type: BLOOD SPECIMENOrdering Facility: [facility] Address: [address] [place], [place] [address] Performed By: #### 3 040-3, 22204-9, 40813-2 ####[facility] LABCLIA [id number] [place] [id number] [place] Magnesium SerPl-mCncon 08-27 Magnesium [Mass/Vol] 2.3 mg/dL Normal 1.7-2.3 [facility] Comment on above: Order Comment: Speci men Type: BLOOD SPECIMENOrdering Facility: [facility] Address: [address] [place], [place] [address] Performed By: #### 3 040-3, 18986-8, 22973-7 ####[facility] LABCLIA [id number] [place] [id number] [place] NURSING PROGon 08-27-2024 NURSING PROG Normal [facility] US ABD RIGHT UPPER QUADRANTo n 08-27-2024 US ABD RIGHT UPPER QUADRANT Normal [facility] Chiropractic Reporton 2024 Chiropractic Report [facility] [address] [place] [address] OFFICE VISIT Date of Service: 08/26/24 MR#: [id number] Acct: [id number] Name: MIKAYLA BERTRAND Rep #: [id number] : 2000 Provider: RANCHO Valentine Age/Sex: 23/F [place] [facility] [place]: Signed Intake Vital Signs 06/15/24 12:07 08/13/24 15:51 Height 5 ft 1 in 5 ft 1 in Intake Visit Reasons: Back pain Chief Complaint: upper mid back discomfort Allergies cefdinir Allergy (Intermediate, Verified 08/13/24 15:49) Swelling diphenhydramine (From Benadryl) Allergy (Intermediate, Verified 08/13/24 15:49) Other prochlorperazine (From Compazine) Allergy (Intermediate, Verified 08/13/24 15:49) Other gluten Allergy (Verified 08/13/24 15:49) Upset Stomach latex Allergy (Verified 08/13/24 15:49) Hives midazolam HCl (From Versed) Allergy (Verified 08/13/24 15:49) Other Penicillins Allergy (Verified 08/13/24 15:49) Hives [facility] Medical History Tortuous colon Autoimmune gastritis Gastroparesis Epilepsy POTS (postural orthostatic tachycardia syndrome) Constipation Elevated transaminase level Narcolepsy GERD (gastroesophageal reflux disease) Headaches, cluster Environmental allergies Surgical History History of bilateral salpingectomy History of foot surgery History of tonsillectomy and adenoidectomy Family History Father Migraine Mother Migraine Other Anxiety Asthma Hypertension Social History household members: spouse housing: house number of children: 0 current occupational status: employed current occupation: [employer] Smoking Status: Never smoker alcohol intake: never substance use type: does not use what type of physical activity do you participate in: walking and weight training frequency: 3-4 times per week duration: 30-45 minutes/day additional social history: - Alvarez MAHER Back pain Chief Complaint: Back pain Visit Number: 2 Details: Miakyla is a 23 year old female here for follow up of back pain. She complains of neck and upper back pain and stiffness that extends across her shoulder blades bilaterally. She does experience headaches intermittently. She does experience intermittent muscle spams in her upper back. She rates her pain 3/10 and states it is equal bilaterally and extends into her upper arms. She also complains of pain in her low back that is equal bilaterally. Her GI issues cause inflammation in her body which exacerbates her pain. She denies new injury, numbness, tingling or radiculopathy. Pt. advises chiropractic adjustments are helpful in relieving her pain and discomfort but it gradually returns. Location: neck/back Duration: intermittent Aggravating or associated factors: lifting, bending, sitting, GI problems Relieving factors: chiro Pain Quality: aching and dull Exam Musc General: Yes normal posture, normal gait and joint tenderness; No muscle weakness or decreased range of motion Cervical Spine: Yes normal cervical lordosis, Yes cervical muscular tenderness bilateral diffuse , Yes cervical spasm right greater than left diffuse trapezius, paracervical muscles and intrinsics and Yes misalignment misalignment: C2, C5 and C6 Thoracic/Lumber: Yes thoracic and lumbar spine normal to inspection, Yes paraspinal tenderness bilaterally in the mid thoracic, in the lower thoracic and in the lower lumbar, Yes scoliosis (levoscoliosis lumbar, mild), Yes thoraco-lumbar spasm on the right greater than left (thoracic- trap) and on the left greater than right (lumbopelvic-paraspinal ) and Yes misalignment T4, T5, T6, T7, T8, L3, L4, L5 and RIL Sacrum: Yes misalignment (left) Yes Office Procedures Procedures - Chiropractic Procedures Manipulation: Cervical C6, Lumbar L3, Thoracic T4 and T7 and Pelvis RIL Manipulation: 3-4 regions Traction, Mechanical: Yes Hot and/or cold packs: Yes Patient Response: positive Assessment and Plan Assessment and Plan (1) Segmental and somatic dysfunction of cervical region: Status: Acute (2) Segmental and somatic dysfunction of thoracic region: Status: Acute (3) Segmental and somatic dysfunction of lumbar region: Status: Acute (4) Scoliosis of lumbar spine: Status: Chronic Qualifiers: Idiopathic scoliosis type: other Scoliosis type: idiopathic Qualified Code(s): M41.26 - Other idiopathic scoliosis, lumbar region (5) Segmental and somatic dysfunction of pelvic region: Status: Acute Orders: Orders Chiropractic Treatments 08/26/24 M41.26 - Other idiopathic scoliosis, lumbar region, M99.01 - Segmental and somatic dysfunction of cervical region, M99.02 - Segmental and katherin (more content not included)... Normal [facility] C1 ESTERASE INHIB FUon 08-25 C1 ESTERASE INHIBITOR FUNCTION 100 % Normal >=41 [facility] Comment on above: Order Comment: Speci men Type: BLOOD SPECIMENOrdering Facility: [facility] Address: [address] [place] [address] Result Comment: The concentration of functional C1 esterase inhibitor (C1-INH) isreported as the percentage of the mean level in normal specimens.Concentrations greater than or equal to 68 percent mean normal areconsidered normal.INTERPRETIVE INFORMATION: W-1-Okvzluua Inhib. Functional 68% or greater ........ Normal 41% - 67% ............. Indeterminate 40% or less ........... AbnormalPerformed By: [address] [id number] Director: Marcus Rosado MD, PhDCLIA Number: [id number] Performed By: #### C 1EFUN ####[facility]ITAL[facility] [id number] [place] [address] C1 ESTERASE INHIBITon 2024 C1 ESTERASE INHIBIT 31 mg/dL Normal 21-38 [facility] Comment on above: Order Comment: Speci men Type: BLOOD SPECIMENOrdering Facility: [facility] Address: [address] [place] [address] Result Comment: Perf ormed By: [address] [address]Almltdbtsx Director: Marcus Rosado MD, PhDCLIA Number: [id number] Performed By: #### C 1EST ####[facility] [id number] [place] [address] C1Q COMPLEMENT PROTon 2024 C1Q COMPLEMENT PROTEIN 103 ug/mL Low 109-242 [facility] Comment on above: Order Comment: Speci men Type: BLOOD SPECIMENOrdering Facility: [facility] Address: [address] [place] [address] Result Comment: Perf ormed By: [address] [address]Sfrslaysdy Director: Marcus Rosado MD, PhDCLIA Number: [id number] Performed By: #### C OMC1Q ####[facility]ITALCLIA [id number] [place] [address] C2 COMPLEMENT BLDon 08-25-19 25 C2 COMPLEMENT 2.0 mg/dL Normal 1.6-4.0 [facility] Comment on above: Order Comment: Speci men Type: BLOOD SPECIMENOrdering Facility: [facility] Address: [address] [place] [address] Result Comment: INTE RPRETIVE INFORMATION: Complement Component 2Decreased C2 levels may be associated with increasedsusceptibility to infection (especially pneumococcal infections),systemic lupus erythematosus-like disease, rashes, arthritis andnephritis, and with C1-Esterase deficiency. Increased C2 levelsare associated with the acute phase response.This test was developed and its performance characteristicsdetermined by [employer]. It has not been cleared orapproved by the [place] Food and Drug Administration. This test wasperformed in a CLIA certified laboratory and is intended forclinical purposes.Performed By: [facility] [address] [place], [place] [address]Ojopnoxepf Director: Marcus Rosado MD, PhDCLIA Number: [id number] Performed By: #### C OMPC2 ####[facility] [id number] [place] [address] C4 SerPl-mCncon 08-25-2024 Complement C4 [Mass/Vol] 14 mg/dL Normal 13-46 [facility] Comment on above: Order Comment: Speci men Type: BLOOD SPECIMENOrdering Facility: [facility] Address: [address] [place] [address] Performed By: #### 2 132-9, 4498-2 ####[facility] LABCLIA [id number] [place] [address] [place] VITAMIN B6/PYRIDOXINon 08-25 VITAMIN B6 159.4 nmol/L High 20.0-125.0 [facility] Comment on above: Order Comment: Speci men Type: BLOOD SPECIMENOrdering Facility: [facility] Address: [address] [place] [address] Result Comment: INTE RPRETIVE INFORMATION: Vitamin B6 (Pyridoxal 5-Phosphate)Pyridoxal 5'-phosphate measured in a specimen collected followingan 8-hour or overnight fast accurately indicates vitamin D4twvvdcykzjc status. Non-fasting specimen concentration reflectsrecent vitamin intake.This test was developed and its performance characteristicsdetermined by [employer]. It has not been cleared orapproved by the [place] Food and Drug Administration. This test wasperformed in a CLIA certified laboratory and is intended forclinical purposes.Performed By: [employer] [place] [id number] Director: Marcus Rosado MD, PhDCLIA Number: [id number] Performed By: #### V ITB6 ####[facility] SAN DIEGOIA [id number] [place] [address] Vit B12 SerPl-mCncon 025 Cobalamin (Vitamin B12) [Mass/Vol] 756 pg/mL Normal 232-1245 [facility] Comment on above: Order Comment: Speci men Type: BLOOD SPECIMENOrdering Facility: [facility] Address: [address] [place] [address] Performed By: #### 2 132-9, 4498-2 ####[facility] LABCLIA [id number] [place] [address] [place] PAP I-G w/rfx hrHPV-Aptimaon 08-18-2024 ADEQ Comment Normal . [facility] Comment on above: Order Comment: Speci men Comment: [id number] Comment: Source.............CervixSpecimen Comment: No. of containers..01 ThinPrep Vial Result Comment: Sati sfactory for evaluation. Endocervical and/or squamous metaplastic cells (endocervical component) are present. Performed By: #### L 503.0106, L100.9950, L100.0100, L503.6030, L506.1001, L501.9520, L506.0400 #### [facility] [address] [facility] [place], [address] COMM . Normal . [facility] Comment on above: Order Comment: Speci men Comment: [id number] Comment: Source.............CervixSpecimen Comment: No. of containers..01 ThinPrep Vial Performed By: #### L 503.0106, L100.9950, L100.0100, L503.6030, L506.1001, L501.9520, L506.0400 #### [facility] [address] [place], [place], [address] COMMENT Comment Normal . [facility] Comment on above: Order Comment: Speci men Comment: [id number] Comment: Source.............CervixSpecimen Comment: No. of containers..01 ThinPrep Vial Result Comment: This liquid based ThinPrep(R) pap test was screened with the use of an image guided system. Performed By: #### L 503.0106, L100.9950, L100.0100, L503.6030, L506.1001, L501.9520, L506.0400 #### [facility] [address] [place], [address] DIAG Comment Normal . [facility] Comment on above: Order Comment: Speci men Comment: [id number] Comment: Source.............CervixSpecimen Comment: No. of containers..01 ThinPrep Vial Result Comment: NEGA TIVE FOR INTRAEPITHELIAL LESION OR MALIGNANCY. Performed By: #### L 503.0106, L100.9950, L100.0100, L503.6030, L506.1001, L501.9520, L506.0400 #### [facility] [address] [place], [place], [address] HPV RFLX Comment Normal . [facility] Comment on above: Order Comment: Speci men Comment: [id number] Comment: Source.............CervixSpecimen Comment: No. of containers..01 ThinPrep Vial Result Comment: The HPV DNA reflex criteria were not met with this specimen result therefore, no HPV testing was performed. Performed at: [facility] Histo [address]to [address] [id number] Press Catcher: Sumanth Scott MD, Phone: [phone] Performed at: [address], [place] [id number] Press Catcher: Anjelica Carrasquillo MD, Phone: [phone] Performed By: #### L 503.0106, L100.9950, L100.0100, L503.6030, L506.1001, L501.9520, L506.0400 #### [facility] [address] [place], [address] PAPSMR Comment Normal . [facility] Comment on above: Order Comment: Speci men Comment: [id number] Comment: Source.............CervixSpecimen Comment: No. of containers..01 ThinPrep Vial Result Comment: The Pap smear is a screening test designed to aid in the detection of premalignant and malignant conditions of the uterine cervix. It is not a diagnostic procedure and should not be used as the sole means of detecting cervical cancer. Both false-positive and false-negative reports do occur. Performed By: #### L 503.0106, L100.9950, L100.0100, L503.6030, L506.1001, L501.9520, L506.0400 #### [facility] [address] [place], [address] PERFORM Comment Normal . [facility] Comment on above: Order Comment: Speci men Comment: [id number] Comment: Source.............CervixSpecimen Comment: No. of containers..01 ThinPrep Vial Result Comment: Vaibhav Floyd, Instrument Repairer (ASCP) Performed By: #### L 503.0106, L100.9950, L100.0100, L503.6030, L506.1001, L501.9520, L506.0400 #### [facility] [address] [place], [address] Cervical or vagninal specime n microscopic examination by cytology stain (reported asOrdered By: Jovana Calvert on 08-13-2024 Cytology report Cyto stain Doc (Cvx/Vag) Comment . [facility] Comment on above: The Pap smear is a s creening test designed to aid in thedetection of premalignant and malignant conditions of theuterine cervix. It is not a diagnostic procedure andshould not be used as the sole means of detecting cervicalcancer. Both false-positive and false-negative reports dooccur. [employer] Cyto stain Nom (C vx/Vag) [ID]Ordered By: Jovana Calvert on 08-13-2024 Pap Smear Performed By Comment . [facility] Comment on above: Will Floyd Cytotech nologist (ASCP) Cytology report Cyto stain D oc (Cvx/Vag)Ordered By: Jovana Calvert on 08-13-2024 Thin Prep Pap Smear Comment . [facility] Comment on above: The Pap smear is a s creening test designed to aid in thedetection of premalignant and malignant conditions of theuterine cervix. It is not a diagnostic procedure andshould not be used as the sole means of detecting cervicalcancer. Both false-positive and false-negative reports dooccur. Image-guided ThinPrep PapOrd ered By: Jovana Calvert on 08-13-2024 Pap Smear Note Comment . [facility] Comment on above: This liquid based Th inPrep(R) pap test was screened withthe use of an image guided system. Image-guided liquid-based Pa pOrdered By: Jovana Calvert on 08-13-2024 Pap Smear Diagnosis Comment . [facility] Comment on above: NEGATIVE FOR INTRAEP ITHELIAL LESION OR MALIGNANCY. Image-guided liquid-based ce rvical Pap w high-risk HPV+reflex to HPV 16+18Ordered By: Jovana Calvert on 08-13-2024 Human Papillomavirus Screen Comment . [facility] Comment on above: The HPV DNA reflex c telma were not met with this specimenresult therefore, no HPV testing was performed.Performed at: [facility] Histo Hhdg[address] [id number] Director: Sumanth Scott MD, Phone: [phone] at: [facility] Lab[address], [place] [id number] Director: Anjelica Carrasquillo MD, Phone: [phone] Laboratory - CytologyOrdered By: Jovana Calvert on 08-13-2024 Apartment Leasing Agent Cyto stain Nom (Cvx/Vag) [ID] Comment . [facility] Comment on above: Will Floyd, Cytotech nologist (ASCP) Laboratory - Miscellaneous t estsOrdered By: Jovana Calvert on 08-13-2024 Service comment (Unsp spec) [Interp] . . [facility] No Panel InformationOrdered By: Jovana Calvert on 08-13-2024 Pap Smear Specimen Adequacy Comment . [facility] Comment on above: Satisfactory for jennie luation. Endocervical and/or squamous metaplasticcells (endocervical component) are present. Assistant Engineer Office Visit Reporton 08-13-2024 Assistant Engineer Office Visit Report [facility] [address], [address] [place] [address] OFFICE VISIT Date of Service: 08/13/24 MR#: [id number] Acct: [id number] Name: MIKAYLA BERTRAND Rep #: [id number] : 2000 Provider: Dr. 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) Equipment Operat0R Required: No Is patient in pain?: No Allergies cefdinir Allergy (Intermediate, Verified 08/13/24 15:49) Swelling diphenhydramine (From Benadryl) Allergy (Intermediate, Verified 08/13/24 15:49) Other prochlorperazine (From Compazine) Allergy (Intermediate, Verified 08/13/24 15:49) Other gluten Allergy (Verified 08/13/24 15:49) Upset Stomach latex Allergy (Verified 08/13/24 15:49) Hives midazolam HCl (From Versed) Allergy (Verified 08/13/24 15:49) Other Penicillins Allergy (Verified 08/13/24 15:49) Hives Medications ???Medication ???Instructions ???Recorded ???Confirmed ???Type methylphenidate HCl 18 mg 18 mg PO DAILY 05/09/21 08/13/24 H istory tablet,extended release 24 hr (Concerta) propranolol 60 mg capsule,24 60 mg PO DAILY 09/12/23 08/13/24 H istory hr,extended release gabapentin 100 mg capsule mg PO 05/24/24 08/13/24 History linaclotide 290 mcg capsule 290 mcg PO QDAY 05/24/24 08/13/24 History (Linzess) pyridostigmine bromide 60 mg tablet 60 mg PO TID 05/24/24 08/13/24 History famotidine 20 mg tablet 20 mg PO BID 08/13/24 08/13/24 His tory potassium chloride 10 mEq 10 meq PO QDAY 08/13/24 08/13/24 H istory capsule,extended release Is last menstrual period known: Yes Last Menstrual Period: 07/28/24 Post menopausal: No Patient : No : No [facility] Medical History (Updated 08/13/24 @ 15:46 by Dana Salazar) Tortuous colon Autoimmune gastritis Gastroparesis Epilepsy POTS (postural orthostatic tachycardia syndrome) Constipation Elevated transaminase level Narcolepsy GERD (gastroesophageal reflux disease) Headaches, cluster Environmental allergies Surgical History (Updated 08/13/24 @ 15:46 by Dana Salazar) History of bilateral salpingectomy History of foot surgery History of tonsillectomy and adenoidectomy Family History Father Migraine Mother Migraine Other Anxiety Asthma Hypertension Social History (Updated 08/13/24 @ 15:55 by Dana Salazar) household members: spouse housing: house number of children: 0 current occupational status: employed current occupation: [employer] Smoking Status: Never smoker alcohol intake: never substance use type: does not use what type of physical activity do you participate in: walking and weight training frequency: 3-4 times per week duration: 30-45 minutes/day additional social history: - Alvarez History 0 Elective abortions Hx Para Spontaneous abortions Hx # Term Pregnancies Ectopic pregnancies Hx # Pregnancies Multiple births # of living children HPI Encounter for routine gynecological examination Details: MIKAYLA BERTRAND is a 23 year old who presents for annual exam. Last PAP: due today History of abnormal PAP: Last mammogram: not due History of abnormal mammogram: Colon cancer screenin Other preventative health care screenings: PCP Dr. Callejas, sees GI and rheumatology routinely Female Reproductive History Last Menstrual Period: 07/28/24 Cycle Length: 21-35 Bleeding Duration: 5 Questions: metorrhagia: No, sexually active: Yes, dyspareunia: No and PCB: No Menopausal Symptoms: No hot flashes, No night sweats, No weight change, No mood changes, No difficulty concentrating, No sleep problems and No change in libido ROS Const Constitutional: Reports as per HPI; Denies fatigue, increased appetite, poor appetite, night sweats, weight gain or weight loss Cardio Card: Denies chest pain Resp Resp: Denies cough or dyspnea GI GI: Reports as per HPI, bloating, constipation, nausea and vomiting; Denies abdominal pain Details: sees GI : Reports as per HPI and other; Denies difficulty voiding, dysuria, hematuria, hot flashes, nipple discharge, pelvic pain, prolapse symptoms, urinary frequency, urinary incontinence, urinary urgency, vaginal discharge, vaginal dryness, vaginal odor or vaginal pruritus Skin Skin/Breast: Denies changing lesions, breast mass, breast pain, breast skin changes or nipple discharge Psych Psych: Denies anxiety, change in libido, depression or difficulty concentrating Exam Const General: cooperative, healthy appearing, comfortable, no acute distress, well (more content not included)... Normal [facility] Service comment (Unsp spec) [Interp]Ordered By: Jovana Calvert on 08-13-2024 Pap Smear Comment (3) . . [facility] Thyroid Antibodieson 025 TG AB 2.1 IU/mL High 0.0-0.9 [facility] Comment on above: Result Comment: Thyr oglobulin Antibody measured by [employer] Methodology It should be noted that the presence of thyroglobulin antibodies may not be pathogenic nor diagnostic, especially at very low levels. The assay blue split trimmer has found that four percent of individuals without evidence of thyroid disease or autoimmunity will have positive TgAb levels up to 4 IU/mL. Performed at: [address] [id number] Press Catcher: Pravin Pandya PhD, Phone: [phone] Performed By: #### L 2150.6750 #### [facility] [address] [place], [place], [address] THYR PEROX AB 26 IU/mL Normal 0-34 [facility] Comment on above: Performed By: #### L 8948.6750 #### [facility] [address] [place], [place], [address] Direct serum free thyroxine (FT4) measurementOrdered By: Carly Callejas on 08-04-2024 Free T4 [Mass/Vol] 1.10 ng/dL 0.76-1.46 [facility] Free T3on 08-04-2024 Free T3 [Mass/Vol] 2.5 pg/mL Normal 2.18-3.98 [facility] Comment on above: Order Comment: Order Date: 08/04/24Order Info: 3051-0 - [id number] Info: 3016-3 - TSHOrder Info: 3024-7 - T4F Performed By: #### L 3005.6750 #### [facility] [address] [place], [place], [address] Free Q5Zxqwogh By: Carly bustos on 08-04-2024 Free T3 [Mass/Vol] 2.5 pg/mL 2.18-3.98 [facility] Free Triiodothyronine (T3) pg/dL 2.5 pg/mL 2.18-3.98 [facility] Intact parathyroid hormone ( iPTH) measurementOrdered By: Carly Callejas on 08-04-2024 Parathyroid Hormone (Intact) 30.1 pg/mL 18.4-80.1 [facility] PTHINon 08-04-2024 PTH 30.1 pg/mL Normal 18.4-80.1 [facility] Comment on above: Order Comment: Order Date: 08/04/24Order Info: 0565-1 - PTHIN Performed By: #### L 3300.6750 #### [facility] [address] [place], [place], [address] Serum or plasma thyroid stim ulating hormone (TSH) measurement (units/volume)Ordered By: Carly Callejas on 08-04-2024 TSH Qn 0.941 uIU/mL 0.358-3.740 [facility] Serum or plasma thyroperoxid ase antibody assay (units/volume)Ordered By: Carly Callejas on 08-04-2024 TPO Ab Qn 26 [IU]/mL 0-34 [facility] T4 Free Directon 08-04-2024 T4 FREE DIRECT 1.10 ng/dL Normal 0.76-1.46 [facility] Comment on above: Order Comment: Order Date: 08/04/24Order Info: 3051-0 - [id number] Info: 3016-3 - TSHOrder Info: 3024-7 - T4F Performed By: #### L 3300.6750 #### [facility] [address] [place], [place], [address] TPO Ab QnOrdered By: Carly Callejas on 08-04-2024 Thyroid Peroxidase Antibodies 26 IU/mL 0-34 [facility] TSH QnOrdered By: Carly Negrete e on 08-04-2024 Thyroid Stimulating Hormone (TSH) 0.941 uIU/mL 0.358-3.740 [facility] Thyroglobulin Ab serumOrdere d By: Carly Callejas on 08-04-2024 Thyroglobulin Antibody 2.1 IU/mL High 0.0-0.9 [facility] Comment on above: Thyroglobulin Antibo dy measured by Sugar CoulterMethodologyIt should be noted that the presence of thyroglobulinantibodies may not be pathogenic nor diagnostic, especiallyat very low levels. The assay blue split trimmer has found thatfour percent of individuals without evidence of thyroiddisease or autoimmunity will have positive TgAb levels upto 4 IU/mL.Performed at: [facility] [employer] [id number] Director: Pravin Pandya PhD, Phone: [phone] Thyroid Stim Hormone (TSH)on 08-04-2024 TSH 0.941 uIU/mL Normal 0.358-3.740 [facility] Comment on above: Order Comment: Order Date: 08/04/24Order Info: 3051-0 - [id number] Info: 3016-3 - TSHOrder Info: 3024-7 - T4F Performed By: #### L 3300.6750 #### [facility] [address] [facility] [place], [place], [address] H. PYLORI STOOL AGon 025 H PYLORI STL AG Negative Normal Negative [facility] Comment on above: Result Comment: Perf ormed at: [employer] [facility] [address] [id number] Press Catcher: Pravin Pandya PhD, Phone: [phone] Performed By: #### L 3100.1950 #### [facility] [address] [facility] [place], [address] Gastrin SerPl-ncon 025 Gastrin [Mass/Vol] 212.0 pg/mL High <115.0 [facility] Comment on above: Order Comment: Speci men Type: BLOOD SPECIMENOrdering Facility: [facility] Address: [address] [place] [address] Result Comment: The Gastrin test was performed using the Siemens Immulite chemiluminescent immunometric method. Results obtained with different assay methods or kits cannot be used interchangeably. Performed By: #### 2 333-3 ####[facility] LABCLIA [id number] [facility] [id number], [place] [address] [place] H. pylori Ag IA Ql (Stl)on 0 07-29-2024 Stool Helicobacter pylori Antigen Negative Negative [facility] Comment on above: Performed at: [facility] [address] [id number] Director: Pravin Pandya PhD, Phone: [phone] Stool Helicobacter pylori an tigen detection by immunoassayon 07-29-2024 H. pylori Ag IA Ql (Stl) Negative Negative [facility] Comment on above: Performed at: [facility] [place] [id number] Director: Pravin Pandya PhD, Phone: [phone] Basic Metabolic Profile (BMP )on 07-27-2024 BUN/CRE 15.1 RATIO Normal 10-20 [facility] Comment on above: Order Comment: Order Date: 02/13/24Order Info: 0667-1 - BMP Performed By: #### L 503.0106, L100.9950, L100.0100, L503.6030, L506.1001, L501.9520, L506.0400 #### [facility] [address] [place], [address] CA,Total 8.6 mg/dL Normal 8.5-10.1 [facility] Comment on above: Order Comment: Order Date: 02/13/24Order Info: 0667-1 - BMP Performed By: #### L 503.0106, L100.9950, L100.0100, L503.6030, L506.1001, L501.9520, L506.0400 #### [facility] [address] [place], [address] Chloride [Moles/Vol] 109 mmol/L High 98-107 [facility] Comment on above: Order Comment: Order Date: 02/13/24Order Info: 0667-1 - BMP Performed By: #### L 503.0106, L100.9950, L100.0100, L503.6030, L506.1001, L501.9520, L506.0400 #### [facility] [address] [place], [address] CO2 [Moles/Vol] 28.0 mmol/L Normal 21.0-32.0 [facility] Comment on above: Order Comment: Order Date: 02/13/24Order Info: 0667-1 - BMP Performed By: #### L 503.0106, L100.9950, L100.0100, L503.6030, L506.1001, L501.9520, L506.0400 #### [facility] [address] [place], [address] Creatinine [Mass/Vol] 0.66 mg/dL Normal 0.55-1.02 [facility] Comment on above: Order Comment: Order Date: 02/13/24Order Info: 0667-1 - BMP Result Comment: The validity of the calculated GFR GFRAA in patients over 70 years has not been determined. Clinical correlation is essential. Performed By: #### L 503.0106, L100.9950, L100.0100, L503.6030, L506.1001, L501.9520, L506.0400 #### [facility] [address] [place], [address] EST GFR - AA 144 mL/min Normal >60 [facility] Comment on above: Order Comment: Order Date: 02/13/24Order Info: 0667-1 - BMP Result Comment: Afri can Grenadian GFR Calc Performed By: #### L 503.0106, L100.9950, L100.0100, L503.6030, L506.1001, L501.9520, L506.0400 #### [facility] [address] [place], [address] GAP 4 Low 5-15 [facility] Comment on above: Order Comment: Order Date: 02/13/24Order Info: 0667-1 - BMP Performed By: #### L 503.0106, L100.9950, L100.0100, L503.6030, L506.1001, L501.9520, L506.0400 #### [facility] [address] [place], [address] GFR/1.73 sq M.predicted among non-blacks MDRD (S/P/Bld) [Vol rate/Area] 119 mL/min/{1.73_m2} Normal >60 [facility] Comment on above: Order Comment: Order Date: 02/13/24Order Info: 0667-1 - BMP Result Comment: Non- GFR Calc Performed By: #### L 503.0106, L100.9950, L100.0100, L503.6030, L506.1001, L501.9520, L506.0400 #### [facility] [address] [place], [address] Glucose [Mass/Vol] 101 mg/dL Normal 74-106 [facility] Comment on above: Order Comment: Order Date: 02/13/24Order Info: 0667-1 - BMP Result Comment: Fast ing Glucose result from 100 to 125 mg/dL suggests IMPAIRED HOMEOSTASIS per A.D.A. criteria. Performed By: #### L 503.0106, L100.9950, L100.0100, L503.6030, L506.1001, L501.9520, L506.0400 #### [facility] [address] [place], [address] Potassium [Moles/Vol] 3.7 mmol/L Normal 3.5-5.1 [facility] Comment on above: Order Comment: Order Date: 02/13/24Order Info: 0667-1 - BMP Performed By: #### L 503.0106, L100.9950, L100.0100, L503.6030, L506.1001, L501.9520, L506.0400 #### [facility] [address] [place], [address] Sodium [Moles/Vol] 140 mmol/L Normal 136-145 [facility] Comment on above: Order Comment: Order Date: 02/13/24Order Info: 0667-1 - BMP Performed By: #### L 503.0106, L100.9950, L100.0100, L503.6030, L506.1001, L501.9520, L506.0400 #### [facility] [address] [place], [address] Urea nitrogen [Mass/Vol] 10 mg/dL Normal 7-18 [facility] Comment on above: Order Comment: Order Date: 02/13/24Order Info: 0667-1 - BMP Performed By: #### L 503.0106, L100.9950, L100.0100, L503.6030, L506.1001, L501.9520, L506.0400 #### [facility] [place], [address] Blood urea nitrogen (BUN)/cr eatinine ratioOrdered By: Carly Callejas on 07-27-2024 Urea nitrogen/Creatinine [Mass ratio] 15.1 mg/mg 10-20 [facility] Carbon dioxide measurementOr dered By: Carly Callejas on 07-27-2024 CO2 [Moles/Vol] 28.0 mmol/L 21.0-32.0 [facility] Chloride measurementOrdered By: aCrly Callejas on 07-27-2024 Chloride [Moles/Vol] 109 mmol/L High 98-107 [facility] Estimated glomerular filtrat ion rate (GFR) AmericanOrdered By: Carly Callejas on 07-27-2024 Estimated GFR (MDRD) Amer 144 mL/min >60 [facility] Comment on above: GFR Calc Glomerular filtration rate ( GFR) estimationOrdered By: Carly Callejas on 07-27-2024 Estimated GFR (MDRD) Non-Af Amer 119 mL/min >60 [facility] Comment on above: Non- GFR Calc GFR/1.73 sq M.predicted among non-blacks MDRD (S/P/Bld) [Vol rate/Area] 119 mL/min/{1.73_m2} >60 [facility] Comment on above: Non- GFR Calc Glucose measurementOrdered B y: Carly Callejas on 07-27-2024 Glucose [Mass/Vol] 101 mg/dL 74-106 [facility] Comment on above: Fasting Glucose resu lt from 100 to 125 mg/dL suggests IMPAIRED HOMEOSTASIS per A.D.A. criteria. Potassium measurementOrdered By: Carly Callejas on 07-27-2024 Potassium [Moles/Vol] 3.7 mmol/L 3.5-5.1 [facility] Serum anion gap measurementO rdered By: Carly Callejas on 07-27-2024 Anion gap [Moles/Vol] 4 mmol/L Low 5-15 [facility] Serum or plasma calcium sriram urement (mass/volume)Ordered By: Carly Callejas on 07-27-2024 Calcium [Mass/Vol] 8.6 mg/dL 8.5-10.1 [facility] Serum or plasma creatinine m easurement (mass/volume)Ordered By: Carly Callejas on 07-27-2024 Creatinine [Mass/Vol] 0.66 mg/dL 0.55-1.02 [facility] Comment on above: The validity of the calculated GFR & GFRAA in patients over 70 years has not been determined. Clinical correlation is essential. Serum or plasma urea nitroge n measurement (mass/volume)Ordered By: Carly Callejas on 07-27-2024 Urea nitrogen [Mass/Vol] 10 mg/dL 7-18 [facility] Sodium levelOrdered By: Manju Callejas on 07-27-2024 Sodium [Moles/Vol] 140 mmol/L 136-145 [facility] DNA double strand Ab IA Qn ( S)on 07-21-2024 DNA ANTIBODY 20 IU/mL Normal <=200 [facility] Comment on above: Order Comment: Speci men Type: BLOOD SPECIMENOrdering Facility: [facility] Address: [address] [place] [address] Result Comment: Nega tive: <200 IU/mLEquivocal: 201-300 IU/mLModerate Positive: 301-800 IU/mLStrong Positive: >801 IU/mL Performed By: #### 3 2677-7 ####[facility] LABCLIA [id number] [place] [address] [place] DNA ANTIBODY QUALITATIVE INTERPRETATION Negative Normal Negative [facility] Comment on above: Order Comment: Speci men Type: BLOOD SPECIMENOrdering Facility: [facility] Address: [address] [place] [address] Performed By: #### 3 2677-7 ####[facility] LABCLIA [id number] [id number] Mitochondria Ab IF Ql (S)on 07-21-2024 Mitochondria M2 Ab IA Qn (S) 29.1 Units High <=20.0 [facility] Comment on above: Order Comment: Speci men Type: BLOOD SPECIMENOrdering Facility: [facility] Address: [address] [place] [address] Performed By: #### 1 7284-1 ####[facility] LABIA [id number] [address] Mitochondria M2 Ab Ql (S) Positive Abnormal Negative [facility] Comment on above: Order Comment: Speci men Type: BLOOD SPECIMENOrdering Facility: [facility] Address: [address] [place] [address] Result Comment: Anti -mitochondrial antibody test is used as an aid in diagnosis of primary biliary cholangitis. Clinical correlation is required. Performed By: #### 1 7284-1 ####[facility] LABCLIA [id number] [address] [place] 07-20-2024 CNPN Telephone (CHAVAUHWN ) MIKAYLA BERTRAND ([id number]) 4 F Date Time Provider Department 07/20/24 ALAN CORTÉS During your visit today, we recorded the following information about you: Jennie Sloan LPN 07/20/2024 1:46 PM Signed ----- Message from Alan Cortés MD sent at 07/20/2024 12:35 PM EST ----- Can we check with the lab-is a somebody I can talk to about this? Report says lab values 105 but it supposed to be a percentage so I was not sure how to interpret it, I would think maximum would be 100%? Can someone help me with this Jennie Sloan LPN 07/20/2024 1:48 PM Signed Placed call to Lab client services at [phone] and spoke with Bonifacio. He is going to forward the message to a rep and will get back to me with an answer. Jennie Sloan LPN Allergies As of Date: 07/20/2024 Noted Allergy Reaction CEFDINIR 08/31/2020 7 - Swelling HYDROCODONE-ACETAMINOPH EN 05/29/2022 7 - Swelling LATEX 03/28/2007 7 - Swelling PENICILLINS 07/23/2005 2 - Rash BENADRYL (DIPHENHYDRAMINE) 09/18/2023 1 - Mental Status Change Comments: agitation DROPERIDOL 09/18/2023 14 - Other: See Comments Comments: akathesia COMPAZINE (PROCHLORPERAZINE) 11/04/2022 5 - Intolerance Comments: Restlessness, agitation GLUTEN 04/12/2020 8 - GI Upset VERSED (MIDAZOLAM HCL) 02/03/2012 1 - Mental Status Change Comments: Pulling out IV's, extremely confused and restless, getting on hands and knees Date Reviewed: 07/19/2024 Reviewed by: Dipti Mendez RN - Fully Assessed Prescriptions as of 07/28/2024 - linaCLOtide (LINZESS) 290 mcg capsule Take 1 capsule by mouth daily at 6 am. Take capsule on an empty stomach at least 30 minutes before a meal at the same time each day. Capsule should be swallowed whole. DO NOT chew or crush. - famotidine (PEPCID) 20 mg tablet Take 1 tablet by mouth two times a day. - gabapentin (NEURONTIN) 100 mg capsule Take 100mg twice a day and 300mg at bedtime. - pyridostigmine (MESTINON) 60 mg tablet Take 1 tablet by mouth three times a day. - tenapanor (IBSRELA) 50 mg tablet Take 1 tablet (50 mg) by mouth two times a day. - linaCLOtide (LINZESS) 290 mcg capsule Take 1 capsule by mouth daily at 6 am. - potassium chloride SR (MICRO-K) 10 mEq CR capsule Take 10 mEq by mouth. - propranolol ER (INDERAL LA) 60 mg 24 hr capsule Take 1 capsule by mouth once daily. - methylphenidate ER (CONCERTA) 18 mg biphasic tablet Take 1 tablet by mouth every morning for 30 days. - MULTIVITAMIN ORAL Take 1 tablet by mouth once daily. 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] 01/05/2010 10/13/2014 Sleep disturbance [G47.9] 02/02/2011 10/13/2014 Academic problem [Z55.8] 02/02/2011 08/31/2020 Nausea and vomiting [R11.2] 07/03/2011 11/05/2022 Viral Warts: hands: R thumb prox to DIP to prox*08/19/2012 01/06/2018 Narcolepsy [G47.419] 11/19/2012 07/15/2016 Stress reaction of bone [M84.30XA] 04/14/2013 08/31/2020 Stress reaction [F43.0] 11/18/2013 08/31/2020 Acromioclavicular (joint) (ligament) sprain [S4*05/30/2014 08/31/2020 Partial epilepsy with impairment of consciousne*10/13/2014 08/15/2018 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] Somatic symptom disorder, mild [F45.1] 04/12/2020 08/31/2020 Anxiety [F41.9] 04/12/2020 08/31/2020 History of penicillin allergy [Z88.0] 04/24/2020 Urticaria due to drug allergy [L50.0, T50.905A] 04/24/2020 Adverse effect of cephalosporins and other beta*04/24/2020 Lip swelling [R22.0] 04/24/2020 08/31/2020 Seasonal allergic rhinitis due to pollen [J30.1]04/24/2020 Migraine without aura and without status migrai*05/11/2020 03/04/2024 Elevated blood pressure reading without diagnos*05/11/2020 Mallet toe, acquired, left [M20.5X2] 05/29/2022 05/29/2022 Pre-op examination [Z01.818] 10/18/2022 GERD (gastroesophageal reflux disease) [K21.9] 10/18/2022 Mild intermittent asthma without complication [*10/18/2022 POTS (postural orthostatic tachycardia syndrome*10/18/2022 Delayed emergence from anesthesia [T88.59XA] 10/18/2022 Epilepsy (HCC) [G40.909] 10/18/2022 MT (mallet toe), right [M20.5X1] 10/25/2022 10/25/2022 RUQ pain [R10.11] 10/31/2022 11/02/2022 Elevated transaminase level [R74.01] 10/31/2022 11/02/2022 Cy (more content not included)... Normal [facility] [id number] 07-19-2024 [id number] HNO ID: [id number] Author: DIPTI MENDEZ RN Service: ? Author Type: Registered Nurse Type: [id number] Filed: 07/19/2024 12:50 Note Text: Uneventful recovery . Discharge paperwork reviewed with patient and family with hard copy provided to patient for personal records. Patient verbalized understanding and declined any questions or concerns prior to discharge. Vital signs stable. Patient expressed readiness to discharge. Personal belongings returned. PIV removed without complication. Patient taken to main lobby, by endoscopy staff, via wheelchair. No acute distress noted. [facility] ANES POSTPROC EVALon 025 ANES POSTPROC EVAL HNO ID: [id number] Author: LYNETTE STACY MD Service: ? Author Type: Anesthesiologist Type: Anesthesia Postprocedure Evaluation Filed: 07/19/2024 14:16 Note Text: POST ANESTHESIA EVALUATION NOTE : 2002 Procedure Summary Date: 07/19/24 Room / Location: [facility] Anesthesia Start: 1154 Anesthesia Stop: 1225 Procedure: COLONOSCOPY DIAGNOSTIC Diagnosis: Aphthous ulcer of mouth (Constipation) Scheduled Providers: Carissa Espana MD Responsible Provider: Lynette Stacy MD Anesthesia Type: MAC ASA Status: 3 Anesthesia Type: MAC Last Vitals Vitals Value Taken Time BP 109/79 07/19/24 1301 Temp 36.5 ?C (97.7 ?F) 07/19/24 1222 HR SpO2 67 07/19/24 1302 Resp 16 07/19/24 1301 SpO2 100 % 07/19/24 1302 Vitals shown include unfiled device data. Post Anesthesia Patient Status Patient Evaluation: PACU. PACU/ICU Patient Condition: stable. Anticipated Disposition: phase 2 then home. Neurological Status: aware and responsive. Pulmonary Status: breathing comfortably on room air Airway Control: returned to baseline unsupported. Cardiovascular Status: stable. Pain Management: clinically adequate Postoperative Hydration: acceptable. Intraoperative Events: no significant anesthesia events Post Operative Nausea/Vomiting Status: no significant post operative nausea or vomiting Recommendation: continue current plan of care. Anesthesia Observations No Documentation SIGNATURE: Lynette Stacy MD PATIENT NAME: Mikayla Bertrand DATE: July 19, 2024 TIME: 2:16 PM CSN: [id number] [facility] ANES PRE-OPon 07-19-2024 ANES PRE-OP HNO ID: [id number] Author: LYNETTE STACY MD Service: ? Author Type: Anesthesiologist Type: Anesthesia Preprocedure Evaluation Filed: 07/19/2024 11:16 Note Text: Summary: ASA3 - Seizure d/o. GERD. No problems with prior anesthesia. Gastroparesis, last emesis a few weeks ago. ANESTHESIOLOGY DAY OF SURGERY NOTE : 2002 Procedure Information Date/Time: 07/19/24 1200 Scheduled providers: Carissa Espana MD Procedure: COLONOSCOPY DIAGNOSTIC Location: [facility] Estimated body mass index is 21.43 kg/m? as calculated from the following: Height as of 07/13/24: 156.2 cm (5' 1.5). Weight as of 07/13/24: 52.3 kg (115 lb 4.8 oz). Most recent hematocrit and potassium results: Hematocrit 40.5 06/29/2024 Potassium 3.5 06/29/2024 Relevant Problems ANESTHESIA (+) Delayed emergence from anesthesia (+) PONV (postoperative nausea and vomiting) CARDIO (+) Liver hemangioma GI (+) GERD (gastroesophageal reflux disease) -RENAL (+) Liver hemangioma NEURO-PSYCH (+) Epilepsy (HCC) PULMONARY (+) Mild intermittent asthma without complication I - PHYSICAL EVALUATION AIRWAY Patient intubated: No. Tracheostomy tube not present Mallampati: II. TM distance: >3 FB. Neck ROM: full ROM without neurological symptoms. Mouth opening: adequate. Short neck: no. Thick neck: no DENTAL Dental findings: teeth intact. II - ANESTHESIA PLAN ASA Score: 3 Anesthetic Plan: MAC The patient is not a current smoker. NPO Status: adequate Beta Alvino Monitoring Plan Monitoring plan: standard ASA. Post Procedure Analgesic Plan Postoperative analgesic plan: multimodal analgesia. Informed Consent Anesthetic risks, benefits, alternatives, personnel and consent discussed: yes. Patient / Responsible [employer] Party agrees to proceed: yes Patient / Surrogate agrees to blood products: blood products not planned DNR status not reviewed with patient and/or family prior to surgery. Significant changes in the patient condition since the History and Physical, not otherwise documented in primary service progress note: no. Potential Anesthesia issues that may suggest increased risk of complications or contraindication to planned procedure: none. No vitals data found for the desired time range. Outpatient Medications as of 07/19/2024 Medication Sig linaCLOtide (LINZESS) 290 mcg capsule Take 1 capsule by mouth daily at 6 am. Take capsule on an empty stomach at least 30 minutes before a meal at the same time each day. Capsule should be swallowed whole. DO NOT chew or crush. famotidine (PEPCID) 20 mg tablet Take 1 tablet by mouth two times a day. gabapentin (NEURONTIN) 100 mg capsule Take 100mg twice a day and 300mg at bedtime. pyridostigmine (MESTINON) 60 mg tablet Take 1 tablet by mouth three times a day. tenapanor (IBSRELA) 50 mg tablet Take 1 tablet (50 mg) by mouth two times a day. linaCLOtide (LINZESS) 290 mcg capsule Take 1 capsule by mouth daily at 6 am. (Patient not taking: Reported on 07/13/2024) potassium chloride SR (MICRO-K) 10 mEq CR capsule Take 10 mEq by mouth. propranolol ER (INDERAL LA) 60 mg 24 hr capsule Take 1 capsule by mouth once daily. methylphenidate ER (CONCERTA) 18 mg biphasic tablet Take 1 tablet by mouth every morning for 30 days. MULTIVITAMIN ORAL Take 1 tablet by mouth once daily. No current facility-administered medications on file as of 07/19/2024. I have interviewed and examined the patient. I have reviewed the medical record and/or the pre-anesthesia evaluation, pertinent labs, and test results. This contains updated information obtained within 48 hours of Surgery/Procedure. SIGNATURE: Lynette Stacy MD PATIENT NAME: Mikayla Bertrand DATE: July 19, 2024 TIME: 11:14 AM CSN: [id number] [facility] Colonoscopyon 07-19-[address] [facility] Gastrointestinal Endoscopy Patient Name: Mikayla Bertrand Procedure Date: 07/19/2024 11:52 AM Date of : 2000 Admit Type: Outpatient Age: 23 Room: [place] [address] Gender: Female Note Status: Finalized Attending MD: Carissa Espana MD, [id number] Procedure: Colonoscopy Indications: Constipation Providers: Carissa Espana MD Patient Profile: This is a 23 year old female. Refer to note in patient chart for documentation of history and physical. Last Colonoscopy: none. The patient's first colonoscopy is today. Referring Physician: Bernie Martines MD (Referring MD) Medicines: Monitored Anesthesia Care Complications: No immediate complications. Requesting Provider: Procedure: Pre-Anesthesia Assessment: - Prior to the procedure, a History and Physical was performed, and patient medications and allergies were reviewed. The patient's tolerance of previous anesthesia was also reviewed. The risks and benefits of the procedure and the sedation options and risks were discussed with the patient. All questions were answered, and informed consent was obtained. Prior Anticoagulants: The patient has taken no anticoagulant or antiplatelet agents. ASA Grade Assessment: II - A patient with mild systemic disease. After reviewing the risks and benefits, the patient was deemed in satisfactory condition to undergo the procedure. After I obtained informed consent, the scope was passed under direct vision. Throughout the procedure, the patient's blood pressure, pulse, and oxygen saturations were monitored continuously. The Colonoscope was introduced through the anus and advanced to the terminal ileum, with identification of the appendiceal orifice and IC valve. The colonoscopy was performed without difficulty. The patient tolerated the procedure well. The quality of the bowel preparation was evaluated using the BBPS (Gaston Bowel Preparation Scale) with scores of: Right Colon = 3, Transverse Colon = 3 and Left Colon = 3 (entire mucosa seen well with no residual staining, small fragments of stool or opaque liquid). The total BBPS score equals 9. The terminal ileum, ileocecal valve, appendiceal orifice, and rectum were photographed. The quality of the bowel preparation was excellent. Scope Withdrawal Time: 0 hours 10 minutes 7 seconds Moderate Sedation: MAC anesthesia was administered by the anesthesia team. Total Procedure Duration: 0 hours 17 minutes 10 seconds Findings: The perianal and digital rectal examinations were normal. The terminal ileum appeared normal. The colon (entire examined portion) was moderately tortuous. The exam was otherwise without abnormality on direct and retroflexion views. Biopsies for histology were taken with a cold forceps from the right colon and left colon for evaluation of colitis. Impression: - The examined portion of the ileum was normal. - Tortuous colon. - The examination was otherwise normal on direct and retroflexion views. - Biopsies were taken with a cold forceps from the right colon and left colon for evaluation of microscopic colitis. Recommendation: - Discharge patient to home (ambulatory). - Resume previous diet. - Continue present medications. - Await pathology results. - Repeat colonoscopy at age 47 for screening purposes. - Return to referring provider. - Patient has a contact number available for emergencies. The signs and symptoms of potential delayed complications were discussed with the patient. Return to normal activities tomorrow. Written discharge instructions were provided to the patient. Procedure Code(s): --- Professional --- 87752, Colonoscopy, flexible; with biopsy, single or multiple Diagnosis Code(s): --- Professional --- K59.00, Constipation, unspecified Q43.8, Other specified congenital malformations of intestine CPT copyright 2020 [employer]. All rights reserved. The codes documented in this report are preliminary and upon junior linux systems administrator review may be revised to meet current compliance requirements. Attending Participation: I personally performed the entire procedure. Scope In: 12:01:26 PM Scope Out: 12:18:36 PM MD Carissa Pelletier MD 07/19/2024 12:21:16 PM This report has been signed electronically by Carissa Espana MD Number of Addenda: 0 Note Initiated On: 07/19/2024 11:52 AM Estimated Blood Loss: Estimated blood loss was minimal. Normal [facility] Flexible sigmoidoscopy study on 07-19-2024 [facility] Gastrointestinal Endoscopy Patient Name: Mikayla Bertrand Procedure Date: 07/19/2024 11:52 AM Date of : 2000 Admit Type: Outpatient Age: 23 Room: [place] [address] Gender: Female Note Status: Finalized Attending MD: Carissa Espana MD, [id number] Procedure: Colonoscopy Indications: Constipation Providers: Carissa Espana MD Patient Profile: This is a 23 year old female. Refer to note in patient chart for documentation of history and physical. Last Colonoscopy: none. The patient's first colonoscopy is today. Referring Physician: Bernie Martines MD (Referring MD) Medicines: Monitored Anesthesia Care Complications: No immediate complications. Requesting Provider: Procedure: Pre-Anesthesia Assessment: - Prior to the procedure, a History and Physical was performed, and patient medications and allergies were reviewed. The patient's tolerance of previous anesthesia was also reviewed. The risks and benefits of the procedure and the sedation options and risks were discussed with the patient. All questions were answered, and informed consent was obtained. Prior Anticoagulants: The patient has taken no anticoagulant or antiplatelet agents. ASA Grade Assessment: II - A patient with mild systemic disease. After reviewing the risks and benefits, the patient was deemed in satisfactory condition to undergo the procedure. After I obtained informed consent, the scope was passed under direct vision. Throughout the procedure, the patient's blood pressure, pulse, and oxygen saturations were monitored continuously. The Colonoscope was introduced through the anus and advanced to the terminal ileum, with identification of the appendiceal orifice and IC valve. The colonoscopy was performed without difficulty. The patient tolerated the procedure well. The quality of the bowel preparation was evaluated using the BBPS (Gaston Bowel Preparation Scale) with scores of: Right Colon = 3, Transverse Colon = 3 and Left Colon = 3 (entire mucosa seen well with no residual staining, small fragments of stool or opaque liquid). The total BBPS score equals 9. The terminal ileum, ileocecal valve, appendiceal orifice, and rectum were photographed. The quality of the bowel preparation was excellent. Scope Withdrawal Time: 0 hours 10 minutes 7 seconds Moderate Sedation: MAC anesthesia was administered by the anesthesia team. Total Procedure Duration: 0 hours 17 minutes 10 seconds Findings: The perianal and digital rectal examinations were normal. The terminal ileum appeared normal. The colon (entire examined portion) was moderately tortuous. The exam was otherwise without abnormality on direct and retroflexion views. Biopsies for histology were taken with a cold forceps from the right colon and left colon for evaluation of colitis. Impression: - The examined portion of the ileum was normal. - Tortuous colon. - The examination was otherwise normal on direct and retroflexion views. - Biopsies were taken with a cold forceps from the right colon and left colon for evaluation of microscopic colitis. Recommendation: - Discharge patient to home (ambulatory). - Resume previous diet. - Continue present medications. - Await pathology results. - Repeat colonoscopy at age 47 for screening purposes. - Return to referring provider. - Patient has a contact number available for emergencies. The signs and symptoms of potential delayed complications were discussed with the patient. Return to normal activities tomorrow. Written discharge instructions were provided to the patient. Procedure Cod (more content not included)... PROVATION [facility] Radiology Study observation (narrative) Andrew sadler [facility] GLUCOSE, BLOOD (POC)on 07-19 Glucose [Mass/Vol] 88 mg/dL 74 - 99 mg/dL [facility] Comment on above: Location:[facility], [address] [facility], [place], [place], [facility] The Accu-Chek Inform II glucose meter has not been approved for testing on patients receiving intensive medical intervention or therapy and results from this point of care glucose test should not be used for patient management decisions in these cases. Inaccurate results may also occur from other interfering factors, such as N-acetylcysteine (blood concentrations of greater than 5mg/dL), galactose, extremes of hematocrit (<10 or >65), or high doses of ascorbic acid (vitamin C) greater than 3mg/dL. Consider alternate testing mechanisms (e.g. core lab, blood gas instrument) in the above situations. [facility] HISTORY PHYSICALon HISTORY PHYSICAL HNO ID: [id number] Author: LENY STEEN PA Service: General Surgery Author Type: Physician Commercial Collections Driver Type: H&P Filed: 07/19/2024 11:51 Note Text: UPDATED HISTORY AND PHYSICAL EXAMINATION SERVICE DATE: 07/19/2024 SERVICE TIME: 11:29 AM SERVICE: Isidro Espana MD PHYSICAL EXAM MUST BE COMPLETED ON ADMISSION The History and Physical (completed in the past 30 days) has been reviewed and the patient has been examined. The contents accurately reflect the patient's condition with the following additions or revisions since the HANDP was completed. Patient denies any changes to health since last examination. Planned procedure for today is COLONOSCOPY DIAGNOSTIC Medication reconciliation list reviewed in [facility]. Past medical history, past surgical history, social history and family history reviewed and [facility]. ALLERGIES Allergen Reactions Cefdinir Swelling Hydrocodone-Acetami* Swelling Latex Swelling Penicillins Rash Benadryl [Diphenhyd* Mental Status Change agitation Droperidol Other: See Comments akathesia Compazine [Prochlor* Intolerance Restlessness, agitation Gluten GI Upset Versed [Midazolam H* Mental Status Change Pulling out IV's, extremely confused and restless, getting on hands and knees LMP 06/29/2024 (Approximate) Examination indicates no changes. On examination today: Lungs: Clear to auscultation bilaterally. Heart: RRR, Normal S1/S2, No murmurs, rubs, gallops or thrills appreciated. Abdomen: BS+ in all quadrants, abdomen is soft, non tender, and without guarding. Assessment: Aphthous ulcer of mouth, r/o Crohns Plan: Planned procedure for today is COLONOSCOPY DIAGNOSTIC This HANDP can be found in the Electronic Medical Record dated 07/13/24 by Alan Cortés MD . SIGNATURE: JARED Banda PATIENT NAME: Mikayla Bertrand DATE: July 19, 2024 TIME: 11:29 AM [facility] SURGICAL PATHOLOGYon 025 CASE REPORT [facility] Comment on above: Order Comment: Speci men Type: TISSUE SPECIMENOrdering Facility: [facility] Address: [address] [place] [address] Result Comment: Surg [facility] Pathology Report Case: [id number] Authorizing Provider: Carissa Espana MD Collected: 07/19/2024 12:15 PM Ordering Location: [facility] Received: 07/19/2024 02:19 PM [facility] Pathologist: Agustín Mittal MD Specimens: A) - Colon, Right, Biopsy, random right colon biopsies B) - Colon, Left, Biopsy, left colon random biopsies Performed By: #### S ####[facility] LABCLIA [id number] [place] [address] [place] [facility] LABORATORYCLIA [id number] [address] [place] CLINICAL HISTORY R/O IBD Normal [facility] Comment on above: Order Comment: Speci men Type: TISSUE SPECIMENOrdering Facility: [facility] Address: [address] [place] [address] Performed By: #### S ####[facility] LABCLIA [id number] [address] [address] LABORATORYCLIA [id number] [address] [place] FINAL DIAGNOSIS Normal [facility] Comment on above: Order Comment: Speci men Type: TISSUE SPECIMENOrdering Facility: [facility] Address: [address] [place] [address] Result Comment: A-B. Right and left colon, biopsies: - No significant pathologic change. - No evidence of lymphocytic or collagenous colitis. JRG/mm/07/20/2024 Performed By: #### S ####[facility] LABCLIA [id number] [address] LABORATORYCLIA [id number] [place] [address] [place] FINAL PERFORMING LAB [facility] Comment on above: Order Comment: Speci men Type: TISSUE SPECIMENOrdering Facility: [facility] Address: [address] [place] [address] Result Comment: Diag nostic interpretation performed at: [facility], [address] [place] [address] CLIA# [id number] Conductor Yard: Johnathan Mascorro MD Performed By: #### S ####[facility] LABCLIA [id number] [address] LABORATORYCLIA [id number] [address] [place] GROSS DESCRIPTION Normal [facility] Comment on above: Order Comment: Speci men Type: TISSUE SPECIMENOrdering Facility: [facility] Address: [address] [place] [address] Result Comment: A. C olon, Right, Biopsy Received in formalin are two pieces of dukes, soft tissue aggregating to 0.7 x 0.3 x 0.2 cm. Totally submitted in one cassette. B. Colon, Left, Biopsy Received in formalin are multiple pieces of dukes, soft tissue aggregating to 0.9 x 0.2 x 0.2 cm. Totally submitted in one cassette. Gross examination performed at [facility], [address] [place] [address] July 19, 2024 5:39 PM Performed By: #### S ####[facility] LABCLIA [id number] [facility] [place]NOTE 2]DESK [id number] LABORATORYCLIA [id number] [address] C1 ESTERASE INHIB FUon 07-15 C1 ESTERASE INHIBITOR FUNCTION 105 % Normal >=41 [facility] Comment on above: Order Comment: Speci men Type: BLOOD SPECIMENOrdering Facility: [facility] Address: [address] [place] [address] Result Comment: The concentration of functional C1 esterase inhibitor (C1-INH) isreported as the percentage of the mean level in normal specimens.Concentrations greater than or equal to 68 percent mean normal areconsidered normal.INTERPRETIVE INFORMATION: O-2-Pnwvliql Inhib. Functional 68% or greater ........ Normal 41% - 67% ............. Indeterminate 40% or less ........... AbnormalPerformed By: [employer] [place] [id number] Director: Marcus Rosado MD, PhDCLIA Number: [id number] Performed By: #### C 1EFUN ####[facility] SAN DIEGOIA [id number] [place] [address] Opal 07-15-2024 CNPN Telephone (AGRHEUHWN ) MIKAYLA BERTRAND ([id number]) 4 F Date Time Provider Department 07/15/24 ALAN CORTÉS During your visit today, we recorded the following information about you: Jennie Sloan LPN 07/15/2024 10:07 AM Signed ----- Message from Alan Cortés MD sent at 07/14/2024 12:28 PM EST ----- Notify patient-she had asked about autoimmune thyroid disease and she does have thyroid peroxidase antibody which can increase risk for autoimmune thyroid disease. With her various symptoms she could consider seeing an jewel hole gauger to see if it has something that needs to be addressed. She also has a low C4 which can be seen with acute infections, sometimes hereditary angioedema, sometimes autoimmune diseases. [place] tree angioedema can present with episodes of abdominal pain from swelling in the GI tract. Will just wait for the rest of the blood to come back. Trying to add 1 more blood work because of the low C4 to look for hereditary angioedema can try to see if we can get that also drawn. If any concerns for it we will need to see an senior painter Jennie Sloan LPN 07/15/2024 10:17 AM Signed Patient notified per Dr. Cortés and voices understanding. Patient is asking to see if her lab orders have been approved through insurance? Are you able to check on this? Thank you Jennie Sloan LPN Jessica Tony 08/06/2024 10:14 AM Signed Denial for Inviate gene panel for auto inflammatory disorders scanned into pt's chart Pt notified genetic test was denied for lack of medical necessity. There is insufficient evidence of clinical and utility of use of of multigene panels to predict the risk of several inherited disorders. Would you like to appeal? Alan Cortés MD 08/09/2024 10:47 AM Signed No, will wait till my next visit with her. Make sure she has follow up Allergies As of Date: 07/15/2024 Noted Allergy Reaction CEFDINIR 08/31/2020 7 - Swelling HYDROCODONE-ACETAMINOPH EN 05/29/2022 7 - Swelling LATEX 03/28/2007 7 - Swelling PENICILLINS 07/23/2005 2 - Rash BENADRYL (DIPHENHYDRAMINE) 09/18/2023 1 - Mental Status Change Comments: agitation DROPERIDOL 09/18/2023 14 - Other: See Comments Comments: akathesia COMPAZINE (PROCHLORPERAZINE) 11/04/2022 5 - Intolerance Comments: Restlessness, agitation GLUTEN 04/12/2020 8 - GI Upset VERSED (MIDAZOLAM HCL) 02/03/2012 1 - Mental Status Change Comments: Pulling out IV's, extremely confused and restless, getting on hands and knees Date Reviewed: 07/13/2024 Reviewed by: Alan Cortés MD - Fully Assessed Prescriptions as of 08/09/2024 - linaCLOtide (LINZESS) 290 mcg capsule Take 1 capsule by mouth daily at 6 am. Take capsule on an empty stomach at least 30 minutes before a meal at the same time each day. Capsule should be swallowed whole. DO NOT chew or crush. - famotidine (PEPCID) 20 mg tablet Take 1 tablet by mouth two times a day. - gabapentin (NEURONTIN) 100 mg capsule Take 100mg twice a day and 300mg at bedtime. - pyridostigmine (MESTINON) 60 mg tablet Take 1 tablet by mouth three times a day. - tenapanor (IBSRELA) 50 mg tablet Take 1 tablet (50 mg) by mouth two times a day. - linaCLOtide (LINZESS) 290 mcg capsule Take 1 capsule by mouth daily at 6 am. - potassium chloride SR (MICRO-K) 10 mEq CR capsule Take 10 mEq by mouth. - propranolol ER (INDERAL LA) 60 mg 24 hr capsule Take 1 capsule by mouth once daily. - methylphenidate ER (CONCERTA) 18 mg biphasic tablet Take 1 tablet by mouth every morning for 30 days. - MULTIVITAMIN ORAL Take 1 tablet by mouth once daily. 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] 01/05/2010 10/13/2014 Sleep disturbance [G47.9] 02/02/2011 10/13/2014 Academic problem [Z55.8] 02/02/2011 08/31/2020 Nausea and vomiting [R11.2] 07/03/2011 11/05/2022 Viral Warts: hands: R thumb prox to DIP to prox*08/19/2012 01/06/2018 Narcolepsy [G47.419] 11/19/2012 07/15/2016 Stress reaction of bone [M84.30XA] 04/14/2013 08/31/2020 Stress reaction [F43.0] 11/18/2013 08/31/2020 Acromioclavicular (joint) (ligament) sprain [S4*05/30/2014 08/31/2020 Partial epilepsy with impairment of consciousne*10/13/2014 08/15/2018 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 (more content not included)... Normal [facility] Chiropractic Reporton 2024 Chiropractic Report [facility] [address] [place] [id number] OFFICE VISIT Date of Service: 07/15/24 MR#: [id number] Acct: [id number] Name: MIKAYLA BERTRAND Rep #: [id number] : 2000 Provider: RANCHO Valentine Age/Sex: 23/F Location: [facility] Status: Signed Intake Vital Signs 06/15/24 12:07 Height 5 ft 1 in Intake Visit Reasons: Back pain Chief Complaint: upper mid back discomfort Allergies cefdinir Allergy (Intermediate, Verified 07/15/24 12:39) Swelling diphenhydramine (From Benadryl) Allergy (Intermediate, Verified 07/15/24 12:39) Other prochlorperazine (From Compazine) Allergy (Intermediate, Verified 07/15/24 12:39) Other gluten Allergy (Verified 07/15/24 12:39) Upset Stomach latex Allergy (Verified 07/15/24 12:39) Hives midazolam HCl (From Versed) Allergy (Verified 07/15/24 12:39) Other Penicillins Allergy (Verified 07/15/24 12:39) Hives Medications ???Medication ???Instructions ???Recorded ???Confirmed ???Type methylphenidate HCl 18 mg 18 mg PO DAILY 05/09/21 07/15/24 History tablet,extended release 24 hr (Concerta) propranolol 60 mg capsule,24 60 mg PO DAILY 09/12/23 07/15/24 History hr,extended release gabapentin 100 mg capsule mg PO 05/24/24 07/15/24 History levofloxacin 500 mg tablet 500 mg PO Q24H #10 tabs 05/24/24 07/15/24 Rx linaclotide 290 mcg capsule 290 mcg PO QDAY 05/24/24 07/15/24 History (Linzess) pyridostigmine bromide 60 mg tablet 60 mg PO TID 05/24/24 07/15/24 History PFSH Medical History Epilepsy POTS (postural orthostatic tachycardia syndrome) Constipation Elevated transaminase level Narcolepsy GERD (gastroesophageal reflux disease) Headaches, cluster Environmental allergies Surgical History History of tonsillectomy and adenoidectomy Family History Father Migraine Mother Migraine Other Anxiety Asthma Hypertension Social History Smoking Status: Never smoker alcohol intake: never substance use type: does not use what type of physical activity do you participate in: walking and weight training frequency: 3-4 times per week duration: 30-45 minutes/day HPI Back pain Chief Complaint: Back pain Visit Number: 1 Details: Mikayla is a 23 year old female here for follow up of back pain. Pt. advises her upper back across her shoulder blades is sore, achy with some intermittent muscle spasms. She rates her pain 4/10 and states it is equal bilaterally and extends into her upper arms. Her GI issues cause inflammation in her body which exacerbates her pain. She's had some occasional HAs as well. She denies new injury, numbness, tingling or radiculopathy. Pt. advises chiropractic adjustments are helpful in relieving her pain and discomfort but it gradually returns. Location: neck/back Duration: intermittent Aggravating or associated factors: lifting, bending, sitting, GI problems Relieving factors: chiro Pain Quality: aching and dull Exam Musc General: Yes normal posture, normal gait and joint tenderness; No muscle weakness or decreased range of motion Cervical Spine: Yes normal cervical lordosis, Yes cervical muscular tenderness right greater than left diffuse , Yes cervical spasm right greater than left diffuse trapezius, paracervical muscles and intrinsics and Yes misalignment misalignment: C2, C5 and C6 Thoracic/Lumber: Yes thoracic and lumbar spine normal to inspection, Yes paraspinal tenderness bilaterally in the mid thoracic, in the lower thoracic and in the lower lumbar, Yes scoliosis (levoscoliosis lumbar, mild), Yes thoraco-lumbar spasm on the right greater than left (thoracic- trap) and on the left greater than right (lumbopelvic-paraspinal ) and Yes misalignment T4, T5, T6, T7, T8, L3, L4, L5 and RIL Sacrum: Yes misalignment (left) Yes Office Procedures Procedures - Chiropractic Procedures Manipulation: Cervical C2 and C6, Lumbar L3, Thoracic T4 and T7 and Pelvis RIL Manipulation: 3-4 regions Traction, Mechanical: Yes Patient Response: positive Assessment and Plan Assessment and Plan (1) Segmental and somatic dysfunction of cervical region: Status: Acute (2) Segmental and somatic dysfunction of thoracic region: Status: Acute (3) Segmental and somatic dysfunction of lumbar region: Status: Acute (4) Scoliosis of lumbar spine: Status: Chronic Qualifiers: Idiopathic scoliosis type: other Scoliosis type: idiopathic Qualified Code(s): M41.26 - Other idiopathic scoliosis, lumbar region (5) Segmental and somatic dysfunction of pelvic region: Status: Acute Orders: Orders Chiropractic Treatments Today M41.26 - Other idi (more content not included)... Normal [facility] KHRIS BY IFA WITH REFLEXon Nuclear Ab pattern (S) [Interp] Nuclear fine speckled Normal [facility] Comment on above: Order Comment: Speci men Type: BLOOD SPECIMENOrdering Facility: [facility] Address: [address] [place] [address] Performed By: #### 5 1774-5, 81803-1, 41063-2, 14500-7, 47114-7, ANAIFR, 42231-0, 34834-6, 19506-2, 42065-6 ####[facility] LABIA [id number] [place] [address] [place] Nuclear Ab Ql (S) Positive Abnormal Negative [facility] Comment on above: Order Comment: Speci jacky Type: BLOOD SPECIMENOrdering Facility: [facility] Address: [address] [place] [address] Result Comment: Anti -nuclear antibody test is used as an aid in diagnosis of systemic autoimmune diseases. Where positive and clinically warranted, follow-up using disease-specific testing is recommended. Low positive titers are not uncommon with advanced age, certain chronic infections, and malignancies among others.Test methodology: Indirect fluorescence immunoassay (IFA) using HEp-2 cells.1:160 Performed By: #### 5 1774-5, 80439-5, 51199-9, 81003-5, 61972-2, ANAIFR, 24153-2, 52650-5, 64959-7, 48907-9 ####[facility] LABIA [id number] [address] [address] [place] C3 SerPl-mCncon 07-13-2024 Complement C3 [Mass/Vol] 115 mg/dL Normal 86-166 [facility] Comment on above: Order Comment: Speci men Type: BLOOD SPECIMENOrdering Facility: [facility] Address: [address] [place] [address] Performed By: #### 4 485-9, 4498-2, 2157-6, 1988-5, 11736-0 ####[facility] LABCLIA [id number] [place] [address] [place] C4 SerPl-mCncon 07-13-2024 Complement C4 [Mass/Vol] 12 mg/dL Low 13-46 [facility] Comment on above: Order Comment: Speci men Type: BLOOD SPECIMENOrdering Facility: [facility] Address: [address] [place] [address] Performed By: #### 4 485-9, 4498-2, 2156-12, 1987-11, ####[facility] LABIA [id number] [place] [address] [place] CK SerPl-cCncon 07-13-2024 CK [Catalytic activity/Vol] 65 U/L Normal 42-196 [facility] Comment on above: Order Comment: Speci men Type: BLOOD SPECIMENOrdering Facility: [facility] Address: [address] [place] [address] Performed By: #### 4 485-9, 4498-2, 2156-12, 1987-11, ####[facility] LABIA [id number] [address] [place] CNOVon 07-13-2024 CNOV Office Visit ([place]) MIKAYLA BLUNT ([id number]) 4 F Date Time Provider Department 07/13/24 8:40 AM ALAN CORTÉS During your visit today, we recorded the following information about you: Temperature Pulse Blood pressure Weight 98.6 degrees 85/minute 128/82 52.3 kg Height 1.562 m Alan Cortés MD 07/13/2024 12:24 PM Signed Subjective Consultation requested by Dr. Carly Callejas MD for an opinion regarding positive KHRIS. My final recommendations will be communicated back to the requesting physician by way of shared Medical record or letter to requesting physician via [place] mail. HPI: Mikayla Blunt is a 23 year old female who presents with positive KHRIS low titer of 1: 80 in January 2024, history of borderline TOOL LAPPER HAND of 1 in April 2023 is here for evaluation. She has history of POTS and sees a neurologist regularly and is on a beta-alvino. She has had episodes of significant abdominal pain, intermittent diarrhea and constipation associated with fevers, oral ulcerations, weight loss and joint pain over the years at least since she has been 19. She gets significant flares every 2 months but reports flares almost every 2 weeks that last week at a time. She has been hospitalized for these episodes before in October 2022, November 2023 and recently February 2024 and during his hospitalization she is usually given IV fluids and some medications for pain control. She has had multiple EGDs which shows chronic gastritis and she has positive antiparietal antibodies. She is also been diagnosed with gastroparesis. She has not had any colonoscopy. 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 She has history of epilepsy as a child and has been on medications but no longer on medications epilepsy and no active symptoms. She describes some joint pain 3/10 in her ankles, shoulders, wrists, knees. She has no swelling. She denies any specific morning stiffness. She has been on a gluten-free diet for the last few years that she has noted some increased pain on a gluten diet. Serologies for celiac in the past have been negative but on gluten-free diet. PAST MEDICAL HISTORY Diagnosis Date Acquired mallet toe of left foot Delayed emergence from anesthesia 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) off AEDs since 2018 GERD (gastroesophageal reflux disease) Mild intermittent asthma without complication MT (mallet toe), right Narcolepsy without cataplexy PMH - PAST MEDICAL HISTORY OF seizure [...] TONSIL AND ADENOI UNDER AGE 12 02/12/2010 SALPINGECTOMY Health Maintenance Procedures HPV Vaccine(1 - 3-dose series) Never done Asthma Control Test due on 12/06/2017 Meningococcal B Vaccine: Consider Based On Risk(1 of 2 - Patient Seeks Protection) Never done GC (Gonorrhea) Screening (18-24) Never done Depression Screening Never done Anxiety Screening Never done Hepatitis C Screening Never done HIV Screening Never done Chlamydia Screening (18-) Never done Cervical Cancer Screening Never done Asthma Action Plan due on 11/21/2023 Annual PCP Team Chronic Disease Visit due on 11/29/2023 Covid-19 Vaccine() due on 03/07/2024 Discussed health maintenance, including regular aerobic exercise, low fat diet, and periodic exams. Health Maintenance Immunizations Given Immunizations: Immunization History Administered Date(s) Administered COVID-19 original vaccine, age 12+ yr, monovalent ([employer] - PURPLE TOP) 09/30/2020 10/21/2020 Haemophilus influenzae b (HbOC) vaccine, 4-dose series (HIBTITER) 2002 01/11/2003 03/10/2003 09/07/2003 diphtheria tetanus pertussis (DTaP) vaccine, pediatric (INFANRIX) 2002 01/11/2003 03/10/2003 12/09/2003 09/23/2007 hepatitis B (HepB) vaccine, 3-dose series, age 0 yr - 19 yr (ENGERIX B-PEDS, RECOMBIVAX HB-PEDS) 2002 2002 06/14/2003 influenza (IIV3) vaccine, age 6 mo - 64 yr, trivalent (AFLURIA, FLULAVAL, FLUVIRIN, FLUZONE) 05/04/2014 influenza (IIV4) vaccine, age 6 mo - 64 yr, quadrivalent (AFLURIA, FLULAVAL, FLUZONE) 04/30/2016 05/27/2019 05/19/2020 05/12/2021 03/25/2022 influenza vaccine, unspecified formulation 05/02/2003 06/01/2003 05/08/2006 05/06/2007 05/11/2008 04/08/2009 05/12/2010 04/06/2011 05/16/2012 measles mumps rube (more content not included)... Normal [facility] CRP SerPl-mCncon 07-13-2024 CRP [Mass/Vol] mg/L Normal <0.9 [facility] Comment on above: Order Comment: Speci men Type: BLOOD SPECIMENOrdering Facility: [facility] Address: [address] [place] [address] Performed By: #### 4 485-9, 4498-2, 2157-6, 1988-5, 09824-4 ####[facility] LABIA [id number] [place] [address] [place] Centromere Ab IF Ql (S)on Centromere Ab Qn (S) <0.2 Normal <1.0 [facility] Comment on above: Order Comment: Speci men Type: BLOOD SPECIMENOrdering Facility: [facility] Address: [address] [place] [address] Result Comment: Anti -centromere antibody is used as in aid in diagnosis of systemic sclerosis. Clinical correlation is required.Test Methodology: Multiplex flow immunoassay. Performed By: #### 5 1775-5, 34816-5, 13339-0, 65400-2, 71676-3, ANAIFR, 00778-6, 40100-3, 13816-7, 60113-1 ####[facility] LABIA [id number] [place] [id number] [place] CENTROMERE AB QUAL Negative Normal Negative [facility] Comment on above: Order Comment: Speci men Type: BLOOD SPECIMENOrdering Facility: [facility] Address: [address] [place] [address] Performed By: #### 5 1775-5, 82141-5, 00206-3, 67080-0, 71939-3, ANAIFR, 89521-3, 06452-5, 76536-5, 60229-6 ####[facility] LABCLIA [id number] [place] [address] [place] Chromatin Ab Qnon 07-13-2024 CHROMATIN AB QUAL Negative Normal Negative [facility] Comment on above: Order Comment: Speci men Type: BLOOD SPECIMENOrdering Facility: [facility] Address: [address] [place] [address] Performed By: #### 5 1775-5, 26981-2, 96655-6, 99839-0, 84708-7, ANAIFR, 91233-3, 08701-3, 70250-8, 28540-4 ####[facility] LABIA [id number] [place] [address] [place] Chromatin Ab SerPl-aCncon Chromatin Ab Qn <0.2 Normal <1.0 [facility] Comment on above: Order Comment: Speci men Type: BLOOD SPECIMENOrdering Facility: [facility] Address: [address] [place] [address] Result Comment: Test Methodology: Multiplex flow immunoassay. Performed By: #### 5 1775-5, 06319-0, 87984-1, 04029-7, 00547-0, ANAIFR, 89047-3, 14829-0, 97698-0, 55447-0 ####[facility] LABIA [id number] [place] [address] [place] Cyclic citrullinated peptide IgG Qnon 07-13-2024 CCP ANTIBODY IGG QUALITATIVE Negative Normal Negative [facility] Comment on above: Order Comment: Speci men Type: BLOOD SPECIMENOrdering Facility: [facility] Address: [address] [place] [address] Performed By: #### 3 3935-8 ####[facility] LABIA [id number] [place] [id number] [place] DNA double strand Ab IA Qn ( S)on 07-13-2024 DNA ANTIBODY 25 IU/mL Normal <=200 [facility] Comment on above: Order Comment: Speci men Type: BLOOD SPECIMENOrdering Facility: [facility] Address: [address] [place] [address] Result Comment: Nega tive: <200 IU/mLEquivocal: 201-300 IU/mLModerate Positive: 301-800 IU/mLStrong Positive: >801 IU/mL Performed By: #### 5 1775-5, 52723-0, 16425-2, 44281-0, 70732-1, ANAIFR, 90137-2, 17088-6, 98169-7, 90840-1 ####[facility] LABCLIA [id number] [place] [address] [place] DNA ANTIBODY QUALITATIVE INTERPRETATION Negative Normal Negative [facility] Comment on above: Order Comment: Speci men Type: BLOOD SPECIMENOrdering Facility: [facility] Address: [address] [place] [address] Performed By: #### 5 5-5, 63952-8, 29268-0, 31078-5, 95891-7, ANAIFR, 77281-0, 07639-0, 94439-6, 50348-3 ####[facility] LABCLIA [id number] [place] [address] [place] MODESTA Jo1 Ab Ser-aCncon 2024 Barbie-1 extractable nuclear Ab Qn (S) <0.2 Normal <1.0 [facility] Comment on above: Order Comment: Speci men Type: BLOOD SPECIMENOrdering Facility: [facility] Address: [address] [place] [address] Performed By: #### 5 1775-5, 96922-7, 27042-7, 07119-4, 13615-3, ANAIFR, 21691-7, 55251-3, 43362-9, 78178-7 ####[facility] LABCLIA [id number] [place] [address] [place] MODESTA TOOL LAPPER HAND Ab Ser-aCncon 2024 Ribonucleoprotein extractable nuclear Ab Qn (S) <0.2 Normal <1.0 [facility] Comment on above: Order Comment: Speci men Type: BLOOD SPECIMENOrdering Facility: [facility] Address: [address] [place] [address] Performed By: #### 5 1775-5, 05468-6, 89346-1, 10877-3, 61304-1, ANAIFR, 03878-0, 20652-9, 23436-5, 46790-9 ####[facility] LABCLIA [id number] [place] [address] [place] Ribonucleoprotein extractable nuclear Ab Qn (S) 0.4 AI Normal <1.0 [facility] Comment on above: Order Comment: Speci men Type: BLOOD SPECIMENOrdering Facility: [facility] Address: [address] [place] [address] Performed By: #### 5 1775-5, 99393-4, 12033-1, 79597-8, 63086-7, ANAIFR, 21409-4, 04745-6, 59874-7, 34685-1 ####[facility] LABCLIA [id number] [place] [address] [place] MODESTA SM IgG Ser-aCncon 2024 Alvarado extractable nuclear IgG Qn (S) <0.2 Normal <1.0 [facility] Comment on above: Order Comment: Speci men Type: BLOOD SPECIMENOrdering Facility: [facility] Address: [address] [place] [address] Performed By: #### 5 1775-5, 08282-7, 56538-8, 84409-8, 34750-2, ANAIFR, 35335-6, 37802-1, 68469-8, 72013-6 ####[facility] LABCLIA [id number] [place] [address] [place] MODESTA SS-A Ab Ser-aCncon 07-13 Sjogrens syndrome-A extractable nuclear Ab Qn (S) <0.2 Normal <1.0 [facility] Comment on above: Order Comment: Speci men Type: BLOOD SPECIMENOrdering Facility: [facility] Address: [address] [place] [address] Result Comment: Test Methodology: Multiplex flow immunoassay. Performed By: #### 5 1775-5, 98483-7, 37265-9, 68484-9, 20957-0, ANAIFR, 70482-3, 26789-0, 05698-5, 54096-1 ####[facility] [id number] [place] [address] [place] MODESTA SS-B Ab Ser-aCncon 07-13 Sjogrens syndrome-B extractable nuclear Ab Qn (S) 0.4 AI Normal <1.0 [facility] Comment on above: Order Comment: Speci men Type: BLOOD SPECIMENOrdering Facility: [facility] Address: [address] [place] [address] Result Comment: Anti -SSB (anti-La) antibody is used as an aid in diagnosis of a variety of systemic autoimmune diseases, especially for Sjogren's syndrome and systemic lupus erythematosus. Clinical correlation is required.Test Methodology: Multiplex flow immunoassay. Performed By: #### 5 1775-5, 99257-2, 09656-9, 26382-9, 09239-9, ANAIFR, 71022-2, 86588-3, 83580-3, 17589-9 ####[facility] [id number] [place] [address] [place] ESR Westergren method (Bld) [Velocity]on 07-13-2024 ESR (Bld) [Velocity] 2 mm/h Normal 0-20 [facility] Comment on above: Order Comment: Speci men Type: BLOOD SPECIMENOrdering Facility: [facility] Address: [address] [place] [address] Performed By: #### 4 537-7 ####[facility] LABCLIA [id number] [place] [address] [place] HBV core Ab Ser Qlon 025 HBV core Ab Ql (S) Negative Normal Negative [facility] Comment on above: Order Comment: Speci men Type: BLOOD SPECIMENOrdering Facility: [facility] Address: [address] [place] [address] Result Comment: No e vidence of current or past infection with Hepatitis B virus. Should recent infection be suspected, repeat testing may be considered 3-4 weeks after this draw. Performed By: #### 5 195-3, 07572-2, 72605-3, MICRO ####[facility] LABCLIA [id number] [place] [address] [place] HBV surface Ab Ql (S)on HBV surface Ab Qn (S) 101.62 mIU/mL Normal [facility] Comment on above: Order Comment: Speci men Type: BLOOD SPECIMENOrdering Facility: [facility] Address: [address] [place] [address] Result Comment: <8 m IU/mL: No serological evidence of immunity to Hepatitis B Virus.>/= 8 to <12 mIU/mL: No serological evidence of immunity to Hepatitis B Virus.>/= 12 mIU/mL: Consistent with serological evidence of immunity to Hepatitis B Virus. Performed By: #### 5 195-3, 52125-0, 94106-9, MICRO ####[facility] LABIA [id number] [place] [address] [place] HBV surface Ab Ser Qlon HBV surface Ab Ql (S) Positive Normal [facility] Comment on above: Order Comment: Speci men Type: BLOOD SPECIMENOrdering Facility: [facility] Address: [address] [place] [address] Result Comment: Cons istent with serological evidence of immunity to Hepatitis B Virus. Performed By: #### 5 195-3, 84955-8, 31354-8, MICRO ####[facility] LABCLIA [id number] [place] [address] [place] HBV surface Ag Ser Qlon HBV surface Ag Ql (S) Negative Normal Negative [facility] Comment on above: Order Comment: Speci men Type: BLOOD SPECIMENOrdering Facility: [facility] Address: [address] [place] [address] Performed By: #### 5 195-3, 46660-5, 04673-8, MICRO ####[facility] LABIA [id number] [place] [address] [place] HCV Ab Ser Qlon 07-13-2024 HCV Ab Ql (S) Negative Normal Negative [facility] Comment on above: Order Comment: Speci men Type: BLOOD SPECIMENOrdering Facility: [facility] Address: [address] [place] [address] Result Comment: The result suggests no evidence of active infection with Hepatitis C virus. Should recent infection be suspected, repeat testing may be considered 4-6 weeks after this draw. Performed By: #### 1 6128-1 ####[facility] [id number] [place] [address] [place] Barbie-1 extractable nuclear Ab Qn (S)on 07-13-2024 BARBIE 1 ANTIBODY QUAL Negative Normal Negative [facility] Comment on above: Order Comment: Speci men Type: BLOOD SPECIMENOrdering Facility: [facility] Address: [address] [place] [address] Result Comment: Anti -BARBIE-1 antibody is used as an aid in diagnosis of polymyositis and dermatomyositis especially with pulmonary involvement. A negative result cannot rule out polymyositis or dermatomyositis. Clinical correlation is required.Test Methodology: Multiplex flow immunoassay. Performed By: #### 5 1775-5, 10631-7, 79964-5, 01609-9, 55570-5, ANAIFR, 63620-6, 05110-6, 79678-5, 75993-8 ####[facility] LABIA [id number] [place] [id number] [place] Rheumatoid fact SerPl-aCncon 07-13-2024 Rheumatoid factor Qn [IU]/mL Normal <16 [facility] Comment on above: Order Comment: Speci men Type: BLOOD SPECIMENOrdering Facility: [facility] Address: [address] [place] [address] Performed By: #### 4 485-9, 4498-2, 2157-6, 1987-, 83907-2 ####[facility] [id number] [place] [address] [place] Ribonucleoprotein extractabl e nuclear Ab Qn (S)on 07-13-2024 ANTI-TOOL LAPPER HAND QUAL Negative Normal Negative [facility] Comment on above: Order Comment: Speci jacky Type: BLOOD SPECIMENOrdering Facility: [facility] Address: [address] [place] [address] Performed By: #### 5 1774-5, 66506-1, 32321-1, 03981-6, 80119-7, ANAIFR, 73147-1, 33908-6, 58711-7, 94557-4 ####[facility] [id number] [place] [address] [place] RIBOSOMAL TOOL LAPPER HAND QUAL Negative Normal Negative [facility] Comment on above: Order Comment: Speci jacky Type: BLOOD SPECIMENOrdering Facility: [facility] Address: [address] [place] [address] Result Comment: Anti -Ribosomal RNA (Ribosomal P) antibody is used as an aid in diagnosis of systemic autoimmune diseases especially systemic lupus erythematosus and mixed connective tissue disease. Cross-reactivity with Anti-alvarado antibody is not uncommon. Clinical correlation is required.Test Methodology: Multiplex flow immunoassay. Performed By: #### 5 1775-5, 82172-3, 72378-4, 90055-6, 27758-3, ANAIFR, 51149-0, 33254-9, 52608-4, 05165-9 ####[facility] [id number] [place] [address] [place] SCL-70 extractable nuclear I gG IA Qn (S)on 07-13-2024 SCLERODERMA AB QUAL Negative Normal Negative [facility] Comment on above: Order Comment: Speci men Type: BLOOD SPECIMENOrdering Facility: [facility] Address: [address] [place] [address] Performed By: #### 5 5-5, 81886-0, 18714-1, 52167-4, 67730-8, ANAIFR, 66586-8, 12997-2, 42966-4, 13936-5 ####[facility] [id number] [place] [address] [place] SCLERODERMA IGG AB <0.2 Normal <1.0 [facility] Comment on above: Order Comment: Anti jacky Type: BLOOD SPECIMENOrdering Facility: [facility] Address: [address] [place] [address] Result Comment: Scl- 70/Scleroderma antibody test is used as an aid in diagnosis of systemic sclerosis especially the diffuse cutaneous form. A negative result cannot rule out systemic sclerosis. The final interpretation should consider clinical picture and other test results such as anti-centromere antibody. Test Methodology: Multiplex flow immunoassay. Performed By: #### 5 1775-5, 87310-6, 18163-6, 89564-9, 25834-4, ANAIFR, 09015-6, 65287-8, 03698-4, 52671-5 ####[facility] [id number] [place] [address] [place] Sjogrens syndrome-A extracta ble nuclear Ab Qn (S)on 07-13-2024 SSA ANTIBODY QUAL Negative Normal Negative [facility] Comment on above: Order Comment: Anti jacky Type: BLOOD SPECIMENOrdering Facility: [facility] Address: [address] [place] [address] Performed By: #### 5 1775-5, 07976-2, 04975-3, 42870-0, 57865-5, ANAIFR, 33609-6, 58003-1, 23396-4, 31253-0 ####[facility] [id number] [place] [address] [place] Sjogrens syndrome-B extracta ble nuclear Ab Qn (S)on 07-13-2024 SSB ANTIBODY QUAL Negative Normal Negative [facility] Comment on above: Order Comment: Speci men Type: BLOOD SPECIMENOrdering Facility: [facility] Address: [address] [place] [address] Performed By: #### 5 5-5, 47165-5, 40641-5, 49098-1, 53861-5, ANAIFR, 91931-4, 42350-5, 28810-3, 53473-2 ####[facility] LABIA [id number] [place] [address] [place] Alvarado extractable nuclear Ig G Qn (S)on 07-13-2024 SM ANTIBODY QUAL Negative Normal Negative [facility] Comment on above: Order Comment: Speci men Type: BLOOD SPECIMENOrdering Facility: [facility] Address: [address] [place] [address] Result Comment: Anti -Sm (Alvarado) antibody is used as an aid in diagnosis of systemic lupus erythematosus and its presence is associated with renal disease. A negative result cannot rule out systemic lupus erythematosus. Clinical correlation is required.Test Methodology: Multiplex flow immunoassay. Performed By: #### 5 1775-5, 85374-4, 54095-3, 90791-0, 22086-1, ANAIFR, 03920-8, 61506-9, 74499-2, 19949-9 ####[facility] LABCLIA [id number] [place] [address] [place] THYROID PEROXIDASE ANTIBODYo n 07-13-2024 TPO Ab Qn 17.3 [IU]/mL High <5.6 [facility] Comment on above: Order Comment: Speci jacky Type: BLOOD SPECIMENOrdering Facility: [facility] Address: [address] [place] [address] Result Comment: Thyr oid Peroxidase Antibody test is used as an aid in diagnosis of autoimmune thyroid disease. Clinical correlation is required. Performed By: #### 5 195-3, 98545-5, 66553-0, MICRO ####[facility] LABCLIA [id number] [place] [address] [place] cCP IgG SerPl-aCncon 025 Cyclic citrullinated peptide IgG Qn <15 Normal <20 [facility] Comment on above: Order Comment: Lou rico Type: BLOOD SPECIMENOrdering Facility: [facility] Address: [address] [place] [address] Performed By: #### 3 3935-8 ####[facility] LABCLIA [id number] [place] [address] [place] L3410.9999on 07-08-2024 [facility] Comment on above: Order Comment: 04998 0VITAMIN K Result Comment: TEST RESULTS LIMITS Vitamin K1, 1.00 ng/mL 0.10-2.20 TESTING PERFORMED AT [facility]. ORIGINAL REPORT ON FILE IN LAB CONTAINS ADDITIONAL TEST SITE INFORMATION. Performed By: #### L 503.0106, L100.9950, L100.0100, L503.6030, L506.1001, L501.9520, L506.0400 #### [facility] [address] [place], [place], [address] Magnesiumon 07-01-2024 Magnesium [Mass/Vol] 2.4 mg/dL Normal 1.6-2.6 [facility] Comment on above: Order Comment: Order Date: 07/01/24Order Info: 76202-9 - MGOrder Info: 2823-3 - K Performed By: #### L 503.0106, L100.9950, L100.0100, L503.6030, L506.1001, L501.9520, L506.0400 #### [facility] [address] [place], [place], [address] Magnesium measurementOrdered By: Carly Callejas on 07-01-2024 Magnesium [Mass/Vol] 2.4 mg/dL 1.6-2.6 [facility] No Panel InformationOrdered By: Carly Callejas on 07-01-2024 Miscellaneous Test See comment [facility] Comment on above: TEST RESULTS LIMITSV itamin K1, 1.00 ng/mL 0.10-2.20 TESTING PERFORMED AT [facility]. ORIGINAL REPORT ON FILE IN LAB CONTAINS ADDITIONAL TEST SITE INFORMATION. Potassiumon 07-01-2024 Potassium [Moles/Vol] 3.8 mmol/L Normal 3.5-5.1 [facility] Comment on above: Order Comment: Order Date: 07/01/24Order Info: [id number] - MGOrder Info: 2823-3 - K Performed By: #### L 503.0106, L100.9950, L100.0100, L503.6030, L506.1001, L501.9520, L506.0400 #### [facility] [address] [place], [address] Potassium measurementOrdered By: Carly Callejas on 07-01-2024 Potassium [Moles/Vol] 3.8 mmol/L 3.5-5.1 [facility] Basic metabolic 2000 panelon 06-29-2024 Anion gap [Moles/Vol] 8 mmol/L Normal 8-15 [facility] Comment on above: Order Comment: Speci men Type: BLOOD SPECIMEN Ordering Facility: [facility] Address: [address] [place] [address] Performed By: #### 2 4325-3, 3040-3, 50976-1 #### [facility] CLIA [id number] [address] [place] [address] [place] Calcium [Mass/Vol] 9.1 mg/dL Normal 8.5-10.2 [facility] Comment on above: Order Comment: Speci men Type: BLOOD SPECIMEN Ordering Facility: [facility] Address: [address] [place] [address] Performed By: #### 2 4325-3, 3040-3, 71054-2 #### [facility] CLIA [id number] [address] [place] [address] [place] Chloride [Moles/Vol] 103 mmol/L Normal 98-107 [facility] Comment on above: Order Comment: Speci men Type: BLOOD SPECIMEN Ordering Facility: [facility] Address: [address] [place] [address] Performed By: #### 2 4325-3, 3040-3, 65151-5 #### [facility] CLIA [id number] [address] [place] [address] [place] CO2 [Moles/Vol] 26 mmol/L Normal 22-30 [facility] Comment on above: Order Comment: Speci men Type: BLOOD SPECIMEN Ordering Facility: [facility] Address: [address] [place] [address] Performed By: #### 2 4325-3, 3040-3, 29574-2 #### [facility] CLIA [id number] [address] STATES OF [facility] Creatinine [Mass/Vol] 0.66 mg/dL Normal 0.58-0.96 [facility] Comment on above: Order Comment: Speci jacky Type: BLOOD SPECIMEN Ordering Facility: [facility] Address: [address] [place] [address] Performed By: #### 2 4325-3, 3040-3, 15120-3 #### [facility] CLIA [id number] [address] Creatinine and Glomerular filtration rate.predicted panel (S/P/Bld) 128 mL/min/1.73m??? Normal >=60 [facility] Comment on above: Order Comment: [facility] Type: BLOOD SPECIMEN Ordering Facility: [facility] Address: [address] [place] [address] Result Comment: Roseanne mated Glomerular Filtration Rate (eGFR) is calculated using the 2020 CKD-EPI creatinine equation. This equation utilizes serum creatinine, sex, and age as parameters. The creatinine assay has traceable calibration to isotope dilution-mass spectrometry. Refer to KDIGO guidelines for clinical interpretation. In patients with unstable renal function, e.g. those with acute kidney injury, the eGFR may not accurately reflect actual GFR. Performed By: #### 2 4325-3, 3040-3, 40751-6 #### [facility] CLIA [id number] [address] STATES OF [facility] Glucose [Mass/Vol] 94 mg/dL Normal 74-99 [facility] Comment on above: Order Comment: Speci jacky Type: BLOOD SPECIMEN Ordering Facility: [facility] Address: [address] [place] [address] Result Comment: The [place] [employer] (ADA) provides guidance for cutoff values for fasting glucose and random glucose. The ADA defines fasting as no caloric intake for at least 8 hours. Fasting plasma glucose results between 100 to 125 mg/dL indicate increased risk for diabetes (prediabetes). Fasting plasma glucose results greater than or equal to 126 mg/dL meet the criteria for diagnosis of diabetes. In the absence of unequivocal hyperglycemia, results should be confirmed by repeat testing. In a patient with classic symptoms of hyperglycemia or hyperglycemic crisis, random plasma glucose results greater than or equal to 200 mg/dL meet the criteria for diagnosis of diabetes. Reference: Standards of Medical Care in Diabetes 2016, [place] [employer]. Diabetes Care. 2016.39(Suppl 1). Performed By: #### 2 4325-3, 3040-3, 38558-4 #### [facility] CLIA [id number] [address] [place] [address] [place] Potassium [Moles/Vol] 3.5 mmol/L Low 3.7-5.1 [facility] Comment on above: Order Comment: Speci men Type: BLOOD SPECIMEN Ordering Facility: [facility] Address: [address] [place] [address] Performed By: #### 2 4325-3, 3040-3, 36813-1 #### [facility] CLIA [id number] [address] [place] Sodium [Moles/Vol] 137 mmol/L Normal 136-144 [facility] Comment on above: Order Comment: Speci men Type: BLOOD SPECIMEN Ordering Facility: [facility] Address: [address] [place] [address] Performed By: #### 2 4325-3, 3040-3, 49279-3 #### [facility] CLIA [id number] [address] [place] [address] [place] Urea nitrogen [Mass/Vol] 11 mg/dL Normal 7-21 [facility] Comment on above: Order Comment: Speci men Type: BLOOD SPECIMEN Ordering Facility: [facility] Address: [address] [place] [address] Performed By: #### 2 4325-3, 3040-3, 06775-3 #### [facility] CLIA [id number] [address] [place] [address] [place] CALCULI ANALYSISon 4 Calculus analysis [Interp] Normal [facility] Comment on above: Order Comment: Speci men Type: CALCULUS SPECIMENOrdering Facility: [facility] Address: [address] [place] [address] Result Comment: This test was developed, and its performance characteristics determined by the [facility] Department of Pathology and Laboratory Medicine. It has not been cleared or approved by the FDA. The [facility] Department of Pathology and Laboratory Medicine is regulated under CLIA as qualified to perform high-complexity testing. This test is used for clinical purposes. It should not be regarded as investigational or for research. This test was developed, and its performance characteristics determined by the [facility] Department of Pathology and Laboratory Medicine. It has not been cleared or approved by the FDA. The [facility] Department of Pathology and Laboratory Medicine is regulated under CLIA as qualified to perform high-complexity testing. This test is used for clinical purposes. It should not be regarded as investigational or for research. Performed By: #### C SA ####[facility] LABCLIA [id number] [place] [address] [place] CALCULUS COLOR BROWN Normal [facility] Comment on above: Order Comment: Speci men Type: CALCULUS SPECIMENOrdering Facility: [facility] Address: [address] [place] [address] Performed By: #### C SA ####[facility] LABCLIA [id number] [place] [address] [place] CALCULUS COMPOSITION 1 SPECIMEN IS TOO S MALL FOR RELIABLE ANALYSIS Normal [facility] Comment on above: Order Comment: Speci men Type: CALCULUS SPECIMENOrdering Facility: [facility] Address: [address] [place] [address] Performed By: #### C SA ####[facility] LABIA [id number] [place] [address] [place] CALCULUS SIZE AND WT Multiple pieces. To o small to weigh. Normal [facility] Comment on above: Order Comment: Speci men Type: CALCULUS SPECIMENOrdering Facility: [facility] Address: [address] [place] [address] Performed By: #### C SA ####[facility] LABCLIA [id number] [place] [address] [place] CALCULUS TYPE Calculus, Calculi or Calculus Normal [facility] Comment on above: Order Comment: Speci men Type: CALCULUS SPECIMENOrdering Facility: [facility] Address: [address] [place] [address] Performed By: #### C SA ####[facility] LABCLIA [id number] [place] [address] [place] CBC W Auto Differential pane l (Bld)on 06-29-2024 Basophils (Bld) [#/Vol] 10*3/uL Normal <0.11 A [facility] Comment on above: Order Comment: Speci men Type: BLOOD SPECIMENOrdering Facility: [facility] Address: [address] [place] [address] Performed By: #### 5 7021-8 ####[facility] LABORATORYCLIA [id number] [place] [address] [place] Basophils/100 WBC (Bld) 0.3 % Normal A [facility] Comment on above: Order Comment: Speci men Type: BLOOD SPECIMENOrdering Facility: [facility] Address: [address] [place] [address] Performed By: #### 5 7021-8 ####[facility] LABORATORYCLIA [id number] [address] [place] Differential cell count method Nom (Bld) Auto Normal [facility] Comment on above: Order Comment: Speci men Type: BLOOD SPECIMENOrdering Facility: [facility] Address: [address] [place] [address] Performed By: #### 5 7021-8 ####[facility] LABORATORYCLIA [id number] [place] [address] [place] Eosinophils (Bld) [#/Vol] 10*3/uL Normal <0.46 [facility] Comment on above: Order Comment: Speci men Type: BLOOD SPECIMENOrdering Facility: [facility] Address: [address] [place] [address] Performed By: #### 5 7021-8 ####[facility] LABORATORYCLIA [id number] [address] STATES [facility] Eosinophils/100 WBC (Bld) 0.0 % Normal [facility] Comment on above: Order Comment: Speci men Type: BLOOD SPECIMENOrdering Facility: [facility] Address: [address] [place] [address] Performed By: #### 5 7021-8 ####[facility] LABORATORYCLIA [id number] [address] [place] Erythrocyte distribution width (RBC) [Ratio] 11.7 % Normal 11.5-15.0 [facility] Comment on above: Order Comment: Speci men Type: BLOOD SPECIMENOrdering Facility: [facility] Address: [address] [place] [address] Performed By: #### 5 7021-8 ####[facility] LABORATORYCLIA [id number] [address] STATES OF [facility] Hematocrit (Bld) [Volume fraction] 40.5 % Normal 36.0-46.0 [facility] Comment on above: Order Comment: Speci men Type: BLOOD SPECIMENOrdering Facility: [facility] Address: [address] [place] [address] Performed By: #### 5 7021-8 ####[facility] LABORATORYCLIA [id number] [address] [place] Hemoglobin (Bld) [Mass/Vol] 13.3 g/dL Normal 11.5-15.5 [facility] Comment on above: Order Comment: Speci men Type: BLOOD SPECIMENOrdering Facility: [facility] Address: [address] [place] [address] Performed By: #### 5 7021-8 ####[facility] LABORATORYCLIA [id number] [address] [place] Immature granulocytes (Bld) [#/Vol] 10*3/uL Normal <0.10 [facility] Comment on above: Order Comment: Speci men Type: BLOOD SPECIMENOrdering Facility: [facility] Address: [address] [place] [address] Performed By: #### 5 7021-8 ####[facility] LABORATORYCLIA [id number] [address] Immature granulocytes/100 WBC (Bld) 0.3 % Normal [facility] Comment on above: Order Comment: Speci men Type: BLOOD SPECIMENOrdering Facility: [facility] Address: [address] [place] [address] Performed By: #### 5 7021-8 ####[facility] LABORATORYCLIA [id number] [address] Lymphocytes (Bld) [#/Vol] 1.23 10*3/uL Normal 1.00-4.00 [facility] Comment on above: Order Comment: Speci men Type: BLOOD SPECIMENOrdering Facility: [facility] Address: [address] [place] [address] Performed By: #### 5 7021-8 ####[facility] LABORATORYCLIA [id number] [address] Lymphocytes/100 WBC (Bld) 16.0 % Normal [facility] Comment on above: Order Comment: Speci men Type: BLOOD SPECIMENOrdering Facility: [facility] Address: [address] [place] [address] Performed By: #### 5 7021-8 ####[facility] LABORATORYCLIA [id number] [address] STATES [facility] MCH (RBC) [Entitic mass] 29.0 pg Normal 26.0-34.0 [facility] Comment on above: Order Comment: Speci men Type: BLOOD SPECIMENOrdering Facility: [facility] Address: [address] [place] [address] Performed By: #### 5 7021-8 ####[facility] LABORATORYCLIA [id number] [address] MCHC (RBC) [Mass/Vol] 32.8 g/dL Normal 30.5-36.0 [facility] Comment on above: Order Comment: Speci men Type: BLOOD SPECIMENOrdering Facility: [facility] Address: [address] [place] [address] Performed By: #### 5 7021-8 ####[facility] LABORATORYCLIA [id number] [address] [place] MCV (RBC) [Entitic vol] 88.4 fL Normal 80.0-100.0 [facility] Comment on above: Order Comment: Speci men Type: BLOOD SPECIMENOrdering Facility: [facility] Address: [address] [place] [address] Performed By: #### 5 7021-8 ####[facility] LABORATORYCLIA [id number] [address] [place] Monocytes (Bld) [#/Vol] 0.47 10*3/uL Normal <0.87 [facility] Comment on above: Order Comment: Speci men Type: BLOOD SPECIMENOrdering Facility: [facility] Address: [address] [place] [address] Performed By: #### 5 7021-8 ####[facility] LABORATORYCLIA [id number] [address] Monocytes/100 WBC (Bld) 6.1 % Normal [facility] Comment on above: Order Comment: Speci men Type: BLOOD SPECIMENOrdering Facility: [facility] Address: [address] [place] [address] Performed By: #### 5 7021-8 ####[facility] LABORATORYCLIA [id number] [address] [place] Neutrophils (Bld) [#/Vol] 5.95 10*3/uL Normal 1.45-7.50 [facility] Comment on above: Order Comment: Speci men Type: BLOOD SPECIMENOrdering Facility: [facility] Address: [address] [place] [address] Performed By: #### 5 7021-8 ####[facility]ORYCL[facility] [id number] [address] Neutrophils/100 WBC (Bld) 77.3 % Normal [facility] Comment on above: Order Comment: Speci men Type: BLOOD SPECIMENOrdering Facility: [facility] Address: [address] [place] [address] Performed By: #### 5 7021-8 ####[facility]ORYCLIA [id number] [address] [place] Nucleated RBC (Bld) [#/Vol] 10*3/uL Normal <0.01 [facility] Comment on above: Order Comment: Speci men Type: BLOOD SPECIMENOrdering Facility: [facility] Address: [address] [place] [address] Performed By: #### 5 7021-8 ####[facility] LAB[facility]ATORYCLIA [id number] [address] Nucleated RBC/100 WBC (Bld) [Ratio] 0.0 /100 WBC Normal [facility] Comment on above: Order Comment: Speci men Type: BLOOD SPECIMENOrdering Facility: [facility] Address: [address] [place] [address] Performed By: #### 5 7021-8 ####[facility]ORYCLIA [id number] [address] [place] Platelet mean volume (Bld) [Entitic vol] 9.8 fL Normal 9.0-12.7 [facility] Comment on above: Order Comment: Speci men Type: BLOOD SPECIMENOrdering Facility: [facility] Address: [address] [place] [address] Performed By: #### 5 7021-8 ####[facility] LABORATORYCLIA [id number] [address] [place] Platelets (Bld) [#/Vol] 188 10*3/uL Normal 150-400 [facility] Comment on above: Order Comment: Speci men Type: BLOOD SPECIMENOrdering Facility: [facility] Address: [address] [place], [place] [address] [id number] Performed By: #### 5 7021-8 ####[facility] LABORATORYCLIA [id number] [address] [facility] RBC (Bld) [#/Vol] 4.58 10*6/uL Normal 3.90-5.20 [facility] Comment on above: Order Comment: Speci men Type: BLOOD SPECIMENOrdering Facility: [facility] Address: [address] [place] [address] Performed By: #### 5 7021-8 ####[facility] LABORATORYCLIA [id number] [address] WBC (Bld) [#/Vol] 7.69 10*3/uL Normal 3.70-11.00 [facility] Comment on above: Order Comment: Speci men Type: BLOOD SPECIMENOrdering Facility: [facility] Address: [address] [place] [address] Performed By: #### 5 7021-8 ####[facility] LABORATORYCLIA [id number] [address] CONSULTon 06-29-2024 CONSULT HNO ID: [id number] Author: OMAR SAXENA MD Service: General Surgery Author Type: Resident Type: Consults Filed: 06/30/2024 14:30 Note Text: Attestation signed by Omar Saxena MD at 06/30/2024 2:30 PM Discussed with the resident and agree with resident's findings and plan as documented in the resident's note. CONSULT: EGS surgery Service SERVICE DATE: 06/29/2024 SERVICE TIME: 10:43 PM REASON FOR CONSULT: Right upper quadrant pain REQUESTING PHYSICIAN: ED Subjective 23 year old female with past medical history of severe gastroparesis, GERD, autoimmune gastritis, POTS, epilepsy presenting with right upper quadrant pain of months to years duration. He states that the pain radiates to her shoulder blades and is worse with eating. She states that she is chronically nauseous and has to eat a modified diet. She is currently being worked up for gastroparesis and autoimmune gastritis. She also notes that she has been passing 1-5 black stones in her stool recently. She denies any dizziness or weakness fevers or chills. She denies any melena or hematochezia. Due to her extensive GI history, she has undergone multiple CTs, MRIs as well as a full body PET scan all of which have been relatively unremarkable except for diagnosing severe gastroparesis and possible autoimmune gastritis.She follows with Dr. Rodriguez as an outpatient was most recently seen in 03/02/2024.. At that point, the plan was for her to call Dr. Rodriguez's office if the patient ever decided that she wanted her gallbladder out. It was noted at that time that cholecystectomy is unlikely to cause resolution of the patient's pain. In the ED today, she underwent a right upper quadrant ultrasound which was remarkable for mild gallbladder sludge without any pericholecystic fluid or edema suggestive of acute cholecystitis. Moreover labs including LFTs are grossly negative. She does not smoke. She will take roughly 400 mg of ibuprofen a few times a week secondary to muscle cramps. General surgery was consulted for further recommendations FUNCTIONAL STATUS: Independent 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) off AEDs since 2018 GERD (gastroesophageal reflux disease) Hypertension 04/11/2020 Migraine without aura and without status migrainosus, not intractable 05/11/2020 Mild intermittent asthma without complication MT (mallet [...] TONSIL AND ADENOI UNDER AGE 14 02/12/2010 SALPINGECTOMY FAMILY HISTORY Problem Relation Age of Onset Graves Disease Mother Heart Mother SVT Allergies Father Asthma Brother Allergies Maternal Grandmother Hypertension Maternal Grandfather Allergies Maternal Grandfather Heart Maternal Grandfather mat side/pat side Breast Cancer Paternal Grandmother No Known Problems Paternal Grandfather Anesthesia Problems No Family History Social History Tobacco Use Smoking status: Never Passive exposure: Never Smokeless tobacco: Never Vaping Use Vaping status: Never Used Substance Use Topics Alcohol use: No Drug use: No (Not in a hospital admission) No current facility-administered medications for this encounter. Allergies As of Date: 06/29/2024 Allergen Noted Reaction CEFDINIR 08/31/2020 Swelling HYDROCODONE-ACETAMINOPH EN 05/29/2022 Swelling LATEX 03/28/2007 Swelling PENICILLINS 07/23/2005 Rash BENADRYL [DIPHENHYDRAMINE] 09/18/2023 Mental Status Change DROPERIDOL 09/18/2023 Other: See Comments COMPAZINE [PROCHLORPERAZINE] 11/04/2022 Intolerance GLUTEN 04/12/2020 GI Upset VERSED [MIDAZOLAM HCL] 02/03/2012 Mental Status Change Fully Assessed 06/29/2024 COMPLETE REVIEW OF SYSTEMS: GENERAL: No weight loss, malaise or fevers RESPIRATORY: Negative for cough, hemoptysis, wheezing, COPD, dyspnea or shortness of breath CARDIOVASCULAR: Negative for chest pain, leg swelling, hypertension, CHF or palpitations GI: Positive for right upper quadrant abdominal pain and nausea of years duration Objective PHYSICAL EXAM: Physical Exam Performed: GENERAL: Alert, no distress, coope (more content not included)... Normal [facility] ED NOTEon 06-29-2024 ED NOTE HNO ID: [id number] Author: ANDERSON PALACIOS RN Service: ? Author Type: Registered Nurse Type: ED Notes Filed: 06/29/2024 18:58 Note Text: Bed: 44-ED Expected date: Expected time: Means of arrival: Comments: [facility] ED NOTE HNO ID: [id number] Author: JEFFREY MAE RN Service: ? Author Type: Registered Nurse Type: ED Notes Filed: 06/29/2024 16:18 Note Text: US notified [facility] ED NOTE HNO ID: [id number] Author: JEFFREY MAE RN Service: Emergency Medicine Author Type: Registered Nurse Type: ED Notes Filed: 06/29/2024 16:18 Note Text: [facility] ED PROV NOTEon 06-29-2024 ED PROV NOTE HNO ID: [id number] Author: KARL FORBES MD Service: Emergency Medicine Author Type: Resident Type: ED Provider Notes Filed: 06/30/2024 00:03 Note Text: Attestation signed by Fan Sweeney MD at 06/30/2024 1:51 PM Attending Note I evaluated the patient and personally participated in the chinchilla components. I agree with the resident's findings and plan as documented and have discussed the case and management of the patient's care with the resident. Abd pain unclear etiology Not toxic ED Provider Note Patient Name: Mikayla Blunt : 2000 SERVICE DATE: 06/29/24 History Patient presents with: Abdominal Pain: Pt arrives to triage c/o mid upper abd pain, nausea, and diarrhea. Pt reports she's seen multiple stones in her stool Patient is a 23-year-old female with history of gastroparesis, narcolepsy and epilepsy that presents today with complaints of right upper quadrant pain. She states that this has been ongoing for multiple years and she follows with a general surgeon. She states that over the past 4 to 5 days her symptoms have acutely gotten worse and she feels nauseous and is having right upper quadrant pain. She also states that she passed a black stone that she has brought with her today. 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) off AEDs since 2018 GERD (gastroesophageal reflux disease) Hypertension 04/11/2020 Migraine without aura and without status migrainosus, not intractable 05/11/2020 Mild intermittent asthma without complication MT (mallet [...] TONSIL AND ADENOI UNDER AGE 12 02/12/2010 SALPINGECTOMY FAMILY HISTORY Problem Relation Age of Onset Graves Disease Mother Heart Mother SVT Allergies Father Asthma Brother Allergies Maternal Grandmother Hypertension Maternal Grandfather Allergies Maternal Grandfather Heart Maternal Grandfather mat side/pat side Breast Cancer Paternal Grandmother No Known Problems Paternal Grandfather Anesthesia Problems No Family History Social History Tobacco Use Smoking status: Never Passive exposure: Never Smokeless tobacco: Never Vaping Use Vaping status: Never Used Substance and Sexual Activity Alcohol use: No Drug use: No Sexual activity: Never ALLERGIES Allergen Reactions Cefdinir Swelling Hydrocodone-Acetami* Swelling Latex Swelling Penicillins Rash Benadryl [Diphenhyd* Mental Status Change agitation Droperidol Other: See Comments akathesia Compazine [Prochlor* Intolerance Restlessness, agitation Gluten GI Upset Versed [Midazolam H* Mental Status Change Pulling out IV's, extremely confused and restless, getting on hands and knees Review of Systems Constitutional: Negative for activity change, fatigue and fever. HENT: Negative for congestion and rhinorrhea. Eyes: Negative for pain and visual disturbance. Respiratory: Negative for cough, chest tightness and shortness of breath. Cardiovascular: Negative for chest pain and leg swelling. Gastrointestinal: Positive for abdominal pain, diarrhea and nausea. Negative for constipation and vomiting. Endocrine: Negative. Genitourinary: Negative for difficulty urinating, dysuria, urgency, vaginal bleeding, vaginal discharge and vaginal pain. Skin: Negative for color change and rash. Neurological: Negative for dizziness, numbness and headaches. Psychiatric/Behavioral: Negative for behavioral problems. The patient is not nervous/anxious. Physical Exam Vitals BP Pulse Temp Temp src Resp SpO2 Weight Height 06/29/24 1550 06/29/24 1549 06/29/24 1549 06/29/24 1549 06/29/24 1549 06/29/24 1549 06/29/24 1549 06/29/24 1549 138/76 70 36.6 ?C (97.9 ?F) Oral 20 98 % 52.2 kg (115 lb) 1.575 m (5' 2) Physical Exam Constitutional: General: She is not in acute distress. Appearance: Normal appearance. She is not ill-appearing. HENT: Head: Normocephalic and atraumatic. Nose: Nose normal. Mouth/Throat: Mouth: Mucous membranes are moist. Pharynx: Oropharynx is clear. No oropharyngeal exudate. Eyes: General: Right eye: No dis (more content not included)... Normal [facility] ED Triage Noteon 06-29-2024 ED Triage Note HNO ID: [id number] Author: LAURA BATRES PA-C Service: Emergency Medicine Author Type: Physician Commercial Collections Driver Type: ED Triage Notes Filed: 06/29/2024 15:59 Note Text: ED TRIAGE PROVIDER NOTE Patient Name: Mikayla Blunt Service Date: 06/29/24 BRIEF HPI: This is a 23 year old female who presents to the ED with: Right upper quadrant epigastric abdominal pain. Worse with p.o. intake. Does have history of biliary sludge per patient. BRIEF EXAM: NAD Awake and Alert Non labored breathing Right upper quadrant and epigastric abdominal pain with palpation INITIAL WORKUP AND DECISION MAKING: Orders Placed This Encounter US ABD RIGHT UPPER QUADRANT BASIC METABOLIC PNL CBC + DIFF Hepatic Function Panel LIPASE BLD HCG QUALITATIVE URINE Urinalysis w Microscopic, reflex Culture SIGNATURE: Laura Batres PA-C Normal [facility] HCG Preg Ur Qlon 06-29-2024 HCG ( test) Ql (U) Negative Normal Negative [facility] Comment on above: Order Comment: Speci men Type: URINE SPECIMENOrdering Facility: [facility] Address: [address] [place] [address] Result Comment: This test is intended to aid in the early detection of . Very dilute urine samples, as indicated by a low specific gravity, may not contain scheduling representative levels of hCG. This test detects intact hCG only. This test does not reliably detect hCG degradation products, including free-beta subunit and beta-core fragment. Therefore, this test may show reduced reactivity in urine after 8 weeks gestation. A number of conditions other than , including trophoblastic disease and certain non-trophoblastic neoplasms cause elevated levels of hCG. As with any assay employing mouse antibodies, the possibility exists for interference by human anti-mouse antibodies (HAMA) in the specimen. The test provides a presumptive diagnosis for . Performed By: #### 2 106-3 ####[facility] LABORATORYCLIA [id number] [place] [address] [place] Hepatic function 2000 panelo n 06-29-2024 Albumin [Mass/Vol] 4.6 g/dL Normal 3.9-4.9 [facility] Comment on above: Order Comment: Speci men Type: BLOOD SPECIMEN Ordering Facility: [facility] Address: [address] [place] [address] Performed By: #### 2 4325-3, 3040-3, 46348-0 #### [facility] CLIA [id number] [address] [place] ALP [Catalytic activity/Vol] 44 U/L Normal 34-123 [facility] Comment on above: Order Comment: Speci men Type: BLOOD SPECIMEN Ordering Facility: [facility] Address: [address] [place] [address] Performed By: #### 2 4325-3, 3040-3, 61795-0 #### [facility] CLIA [id number] [address] STATES OF [facility] ALT With P-5'-P [Catalytic activity/Vol] 12 U/L Normal 7-38 [facility] Comment on above: Order Comment: Speci men Type: BLOOD SPECIMEN Ordering Facility: [facility] Address: [address] [place] [address] Performed By: #### 2 4325-3, 3040-3, 12918-4 #### [facility] CLIA [id number] [address] [facility] AST With P-5'-P [Catalytic activity/Vol] 20 U/L Normal 13-35 [facility] Comment on above: Order Comment: Speci men Type: BLOOD SPECIMEN Ordering Facility: [facility] Address: [address] [place] [address] Performed By: #### 2 4325-3, 3040-3, 68502-5 #### [facility] CLIA [id number] [address] [place] Bilirubin [Mass/Vol] 0.3 mg/dL Normal 0.2-1.3 [facility] Comment on above: Order Comment: Speci men Type: BLOOD SPECIMEN Ordering Facility: [facility] Address: [address] [place] [address] Performed By: #### 2 4325-3, 3040-3, 95344-1 #### [facility] CLIA [id number] [address] Bilirubin.conjugated [Mass/Vol] mg/dL Normal <0.2 [facility] Comment on above: Order Comment: Speci men Type: BLOOD SPECIMEN Ordering Facility: [facility] Address: [address] [place] [address] Performed By: #### 2 4325-3, 3040-3, 14255-6 #### [facility] CLIA [id number] [address] [place] [id number] [place] Protein [Mass/Vol] 7.0 g/dL Normal 6.3-8.0 [facility] Comment on above: Order Comment: Speci men Type: BLOOD SPECIMEN Ordering Facility: [facility] Address: [address] [place] [address] Performed By: #### 2 4325-3, 3040-3, 81911-2 #### [facility] CLIA [id number] [address] [place] [id number] [place] Lipase SerPl-cCncon 06-29-20 24 Lipase [Catalytic activity/Vol] 30 U/L Normal 16-61 [facility] Comment on above: Order Comment: Speci men Type: BLOOD SPECIMENOrdering Facility: [facility] Address: [address] [place] [address] Performed By: #### 2 4325-3, 3040-3, 33584-0 ####[facility] LABORATORYCLIA [id number] [place] [address] [place] US ABD RIGHT UPPER QUADRANTo n 06-29-2024 US ABD RIGHT UPPER QUADRANT * * *Final Report* * * DATE OF EXAM: Jun 29 2024 7:01PM [place] 1032 - US ABD RIGHT UPPER QUADRANT / PROCEDURE REASON: RUQ pain, no fever, no elev WBC * * * * Physician Interpretation * * * * EXAMINATION: RIGHT UPPER QUADRANT ULTRASOUND CLINICAL HISTORY: Right upper quadrant pain TECHNIQUE: Sonography of the right upper quadrant was performed. Images were obtained and stored in a permanent archive. MQ: [id number] COMPARISON: MRI 02/01/2024 and ultrasound 01/30/[address] 01/27/2024 RESULT: Pancreas: Normal sonographic appearance. Portions obscured: tail Liver: Echotexture: Normal, homogeneous. Echogenicity: Normal Surface contour: Smooth Lesions: There is again noted to be a hyperechoic lesion within the region of the caudate measuring 7 x 3.2 x 4.7 cm. This has been previously characterized as a hemangioma. No obvious change. Biliary: No intrahepatic biliary duct dilation. CBD: 0.4 cm at the hilum. Main portal vein is patent Gallbladder: There is mild biliary sludge. No shadowing calculi, wall thickening or focal tenderness. Right Kidney: No hydronephrosis. Ascites: None. IMPRESSION: 1. Mild gallbladder/biliary sludge. Negative for cholelithiasis. 2. Benign Cavernous hemangioma within the liver Secure Software Assessor: AMAIRANI Transcribe Date/Time: Jun 29 2024 7:13P Dictated by : GOPI PALMER MD This examination was interpreted and the report reviewed and electronically signed by: GOPI PALMER MD on Jun 29 2024 7:17PM EST [id number] Normal [facility] Urinalysis complete panel (U )on 06-29-2024 Bilirubin Ql (U) Negative Normal Negative [facility] Comment on above: Order Comment: Speci men Type: URINE SPECIMENOrdering Facility: [facility] Address: [address] [place] [address] Performed By: #### 2 4356-8 ####[facility] LABORATORYCLIA [id number] [address] [place] Clarity (Unsp spec) Clear Normal Clear [facility] Comment on above: Order Comment: Speci men Type: URINE SPECIMENOrdering Facility: [facility] Address: [address] [place] [address] Performed By: #### 2 4356-8 ####[facility] LABORATORYCLIA [id number] [address] [place] Color (U) Colorless Normal yellow [facility] Comment on above: Order Comment: Speci men Type: URINE SPECIMENOrdering Facility: [facility] Address: [address] [place] [address] Performed By: #### 2 4356-8 ####[facility] LABORATORYCLIA [id number] [address] [place] Glucose Test strip (U) [Mass/Vol] Negative Normal Trace, Negative [facility] Comment on above: Order Comment: Speci men Type: URINE SPECIMENOrdering Facility: [facility] Address: [address] [place] [address] Performed By: #### 2 4356-8 ####[facility]ORATORYCLIA [id number] [address] Hemoglobin Ql (U) 2+ Abnormal Negative, Trace [facility] Comment on above: Order Comment: Speci men Type: URINE SPECIMENOrdering Facility: [facility] Address: [address] [place] [address] Performed By: #### 2 4356-8 ####[facility] LABORATORYCLIA [id number] [address] [place] Ketones Ql (U) Negative Normal Negative, Trace [facility] Comment on above: Order Comment: Speci men Type: URINE SPECIMENOrdering Facility: [facility] Address: [address] [place] [address] Performed By: #### 2 4356-8 ####[facility] LABORATORYCLIA [id number] [address] Leukocyte esterase Test strip Ql (U) Negative Normal Negative, 25 Shakira/uL [facility] Comment on above: Order Comment: Speci men Type: URINE SPECIMENOrdering Facility: [facility] Address: [address] [place] [address] Performed By: #### 2 4356-8 ####[facility] LABORATORYCLIA [id number] [address] STATES [facility] Nitrite Ql (U) Negative Normal Negative [facility] Comment on above: Order Comment: Speci men Type: URINE SPECIMENOrdering Facility: [facility] Address: [address] [place] [address] Performed By: #### 2 4356-8 ####[facility] LABORATORYCLIA [id number] [address] [facility] pH (U) 7.0 [pH] Normal 5.0-8.0 [facility] Comment on above: Order Comment: Speci men Type: URINE SPECIMENOrdering Facility: [facility] Address: [address] [place] [address] Performed By: #### 2 4356-8 ####[facility] LABORATORYCLIA [id number] [address] Protein (U) [Mass/Vol] Negative Normal Trace , Negative [facility] Comment on above: Order Comment: Speci men Type: URINE SPECIMENOrdering Facility: [facility] Address: [address] [place] [address] Performed By: #### 2 4356-8 ####[facility] LABORATORYCLIA [id number] [address] STATES [facility] RBC LM.HPF (Urine sed) [#/Area] 3-5 /HPF Abnormal 0-3 /HPF [facility] Comment on above: Order Comment: Speci men Type: URINE SPECIMENOrdering Facility: [facility] Address: [address] [place] [address] Performed By: #### 2 4356-8 ####[facility] [id number] [address] Specific gravity (U) [Rel density] 1.004 Low 1.005-1.030 [facility] Comment on above: Order Comment: Speci men Type: URINE SPECIMENOrdering Facility: [facility] Address: [address] [place] [address] Performed By: #### 2 4356-8 ####[facility] LABORATORYCLIA [id number] [address] Urobilinogen Ql (U) Normal Normal Normal [facility] Comment on above: Order Comment: Speci men Type: URINE SPECIMENOrdering Facility: [facility] Address: [address] [place] [address] Performed By: #### 2 4356-8 ####[facility] LABORATORYCLIA [id number] [address] WBC LM.HPF (Urine sed) [#/Area] 0-5 /HPF Normal 0-5 /HPF [facility] Comment on above: Order Comment: Speci men Type: URINE SPECIMENOrdering Facility: [facility] Address: [address] [place] [id number] Performed By: #### 2 4356-8 ####[facility] [id number] [place] [address] [place] Radiology Reporton 4 Radiology Report [place] [address] [place] [address] 06/23/24 1049 MR#: [id number] Acct: [id number] Name: MIKAYLA BLUNT NEAL Rep #: [id number] : 2000 23 From: Natalee Murillo D.C. PCP: Dr. Carly Callejas MD Status:DEP AMB [place] [facility] [place] Impression Impression: Patients Name: MIKAYLA BLUNT : 2000 Views Submitted: a routine lumbosacral series was accomplished on 06/15/24 at [facility]. The lumbar series reveals in the AP view a left rotatory curvature of the lumbar spine, with right spinous process rotation from L1-L5. There is a 12.7mm leg length inequality on the left. There is posterior rotation of the left felicita on sacrum. Sacrum is inferior on the left. Soft tissue structures are unremarkable. The lateral lumbar view demonstrates a normal lordotic lumbar spine. The disc spaces are within normal limits for the patient???s age. Oblique views revealed normal facet joints. No indiction of fracture or instability. IMPRESSION: 1. Levoscoliosis of lumbar spine, apex L3. Dictated by Performing Provider: Natalee Murillo Coding Level of Care Code Spine Lumbarsacral 4 views 06/23/24 1154 Date Natalee Murillo D.C. Signed Normal [facility] Radiology Report [facility] [address] [place] [address] 06/23/24 1049 MR#: [id number] Acct: [id number] Name: MIKAYLA BLUNT Rep #: [id number] : 2000 23 From: Natalee Murillo D.C. PCP: Dr. Carly Callejas MD Status:DEP AMB [place] [facility] [place] Impression Impression: Patients Name: MIKAYLA BLUNT : 2000 Views Submitted: a routine cervical series was accomplished on 06/15/24 at [facility]. In the cervical series, the AP view revealed right spinous rotation from C3-C5 and T1-T3 with left spinous rotation at C6 and C7. Left head tilt is visible. Soft tissue structures are unremarkable. The neutral lateral view demonstrated a mildly hypolordotic cervical spine. Patient has a ponticulus posticus formation at C1. Odontoid can not be seen as it is overshadowed. Recommend APOM view. The disc spaces are well preserved. IMPRESSION: 1. Hypolordotic cervical spine. 2. Recommend APOM view to evaluate upper cervical spine. Ponticulus posticus present. Dictated by Performing Provider: Natalee Murillo Coding Level of Care Code Spine Cervical 2-3 views 06/23/24 1103 Date Natalee Murillo D.C. Signed Normal [facility] Chiropractic Reporton 2023 Chiropractic Report [facility] [address] [place] [address] OFFICE VISIT Date of Service: 06/22/24 MR#: [id number] Acct: [id number] Name: MIKAYLA BLUNT Rep #: [id number] : 2000 Provider: RANCHO Valentine Age/Sex: 23/F [place] [facility] [place]: Signed Intake Vital Signs 06/15/24 12:07 Height 5 ft 1 in Intake Visit Reasons: Back pain Chief Complaint: upper mid back discomfort Is patient in pain?: Yes (upper back) Pain scale (1-10): 4 Allergies cefdinir Allergy (Intermediate, Verified 06/22/24 16:36) Swelling diphenhydramine (From Benadryl) Allergy (Intermediate, Verified 06/22/24 16:36) Other prochlorperazine (From Compazine) Allergy (Intermediate, Verified 06/22/24 16:36) Other gluten Allergy (Verified 06/22/24 16:36) Upset Stomach latex Allergy (Verified 06/22/24 16:36) Hives midazolam HCl (From Versed) Allergy (Verified 06/22/24 16:36) Other Penicillins Allergy (Verified 06/22/24 16:36) Hives PFSH Medical History Epilepsy POTS (postural orthostatic tachycardia syndrome) Constipation Elevated transaminase level Narcolepsy GERD (gastroesophageal reflux disease) Headaches, cluster Environmental allergies Surgical History History of tonsillectomy and adenoidectomy Family History (Updated 06/22/24 @ 16:59 by Maryann Teixeira) Father Migraine Mother Migraine Other Anxiety Asthma Hypertension Social History Smoking Status: Never smoker alcohol intake: never substance use type: does not use what type of physical activity do you participate in: walking and weight training frequency: 3-4 times per week duration: 30-45 minutes/day HPI Back pain Chief Complaint: Back pain Visit Number: 2 Details: Mikayla is a 23 year old female here for follow up of back pain. She did get relief after her last adjustment but states it only lasted 1-2 days. She complains of upper and mid back tightness and soreness frequently. She states it is equal bilaterally. Her GI issues cause inflammation in her body which exacerbates her pain. She states her hips are ache, tight and feel out of alignment. She rates her pain 4/10. She's had some intermittent HAs as well. She denies new injury, numbness, tingling or radiculopathy. Pt. advises chiropractic adjustments have been helpful in relieving her pain and discomfort in the past. Location: upper/mid back Duration: intermittent Aggravating or associated factors: lifting, bending, sitting, GI problems Relieving factors: chiro Pain Quality: aching and dull Exam Musc General: Yes normal posture, normal gait and joint tenderness; No muscle weakness or decreased range of motion Cervical Spine: Yes normal cervical lordosis, Yes cervical muscular tenderness bilateral diffuse , Yes cervical spasm right greater than left diffuse trapezius, paracervical muscles and intrinsics and Yes misalignment misalignment: C2, C5 and C6 Thoracic/Lumber: Yes thoracic and lumbar spine normal to inspection, Yes paraspinal tenderness bilaterally in the mid thoracic, in the lower thoracic and in the lower lumbar, Yes scoliosis (levoscoliosis lumbar, mild) and Yes misalignment T4, T5, T6, T7, T8, L3, L4, L5, RIL and LIL Sacroiliac joints: bilaterally tender to palpation Sacrum: Yes misalignment (left) Yes Office Procedures Procedures - Chiropractic Procedures Manipulation: Cervical C2 and C6, Lumbar L3, Thoracic T4 and T7 and Pelvis LIL Manipulation: 3-4 regions Hot and/or cold packs: Yes Patient Response: positive Details: maria elena sha: bilateral traps, 10min Assessment and Plan Assessment and Plan (1) Segmental and somatic dysfunction of cervical region: Status: Acute (2) Segmental and somatic dysfunction of thoracic region: Status: Acute (3) Segmental and somatic dysfunction of lumbar region: Status: Acute (4) Scoliosis of lumbar spine: Status: Chronic Qualifiers: Idiopathic scoliosis type: other Scoliosis type: idiopathic Qualified Code(s): M41.26 - Other idiopathic scoliosis, lumbar region (5) Segmental and somatic dysfunction of pelvic region: Status: Acute Orders: Orders Chiropractic Treatments 06/22/24 M99.01 - Segmental and somatic dysfunction of cervical region, M99.02 - Segmental and somatic dysfunction of thoracic region, M99.03 - Segmental and somatic dysfunction of lumbar region Plan Patient xrays were obtained and reviewed. She has a decreased cervical lordosis, normal disc spacing. Her lumbosacral images revealed a levoscoliosis of lumbar spine, mild. Reviewed with patient. She was treated without incident. Follow up in 2 weeks and continue care. Plan Details Goals Barriers: Goals Decrease s (more content not included)... Normal [facility] Chiropractic Reporton 2023 Chiropractic Report [facility] [address] [place] [id number] OFFICE VISIT Date of Service: 06/14/24 MR#: [id number] Acct: [id number] Name: MIKAYLA BLUNT Rep #: [id number] : 2000 Provider: RANCOH Albright Do ssi Age/Sex: 23/F Location: [facility] [place] Status: Signed Intake Vital Signs 05/24/24 15:11 06/14/24 15:51 Height 5 ft 1 in 5 ft 1 in Weight: 116 lb 115 lb BMI 21.9 21.7 BP 110/64 124/74 H Blood Pressure Location Lt brachial Position Sitting Respiration 18 Pulse 41 L Pulse Source Monitor Temp 98.9 F Temp Source Temporal Pulse Oximetry (%) 98 Oxygen Delivery Method room air Intake Visit Reasons: reevaluation Chief Complaint: upper mid back discomfort Allergies cefdinir Allergy (Intermediate, Verified 06/14/24 15:52) Swelling diphenhydramine (From Benadryl) Allergy (Intermediate, Verified 06/14/24 15:52) Other prochlorperazine (From Compazine) Allergy (Intermediate, Verified 06/14/24 15:52) Other gluten Allergy (Verified 06/14/24 15:52) Upset Stomach latex Allergy (Verified 06/14/24 15:52) Hives midazolam HCl (From Versed) Allergy (Verified 06/14/24 15:52) Other Penicillins Allergy (Verified 06/14/24 15:52) Hives Medications ???Medication ???Instructions ???Recorded ???Confirmed ???Type methylphenidate HCl 18 mg 18 mg PO DAILY 05/09/21 06/14/24 History tablet,extended release 24 hr (Concerta) propranolol 60 mg capsule,24 60 mg PO DAILY 09/12/23 06/14/24 History hr,extended release gabapentin 100 mg capsule mg PO 05/24/24 06/14/24 History levofloxacin 500 mg tablet 500 mg PO Q24H #10 tabs 05/24/24 06/14/24 Rx linaclotide 290 mcg capsule 290 mcg PO QDAY 05/24/24 06/14/24 History (Linzess) pyridostigmine bromide 60 mg tablet 60 mg PO TID 05/24/24 06/14/24 History PFSH Medical History Epilepsy POTS (postural orthostatic tachycardia syndrome) Constipation Elevated transaminase level Narcolepsy GERD (gastroesophageal reflux disease) Headaches, cluster Environmental allergies Surgical History History of tonsillectomy and adenoidectomy Family History Father Migraine Daughter Migraine Mother Migraine Other Anxiety Asthma Hypertension Social History Smoking Status: Never smoker alcohol intake: never substance use type: does not use what type of physical activity do you participate in: walking and weight training frequency: 3-4 times per week duration: 30-45 minutes/day HPI reevaluation Chief Complaint: Back pain Visit Number: 1 Details: Mikayla is a 23 year old female here a re-evaluation of back pain. Pt.advises she is experiencing upper and mid back tightness and soreness frequently. She states it is equal bilaterally. She has had unrelated GI problems that have caused a lot of inflammation in her body. She feels as though this has exacerbated her mid-low back pain.She also complains her hips feel out of alignment. She's had some intermittent HAs as well. She denies new injury, numbness, tingling or radiculopathy. Pt. advises chiropractic adjustments have been helpful in relieving her pain and discomfort in the past. Location: upper/mid back Duration: intermittent Aggravating or associated factors: lifting, bending, sitting,GI problems Pain Quality: aching and dull Exam Musc General: Yes normal posture, normal gait and joint tenderness; No muscle weakness or decreased range of motion Cervical Spine: Yes normal cervical lordosis, Yes cervical muscular tenderness right greater than left diffuse , Yes pain with cervical ROM with lateral flexion to right, with lateral flexion to left and with rotation to right, Yes cervical spasm right greater than left diffuse trapezius, paracervical muscles and intrinsics and Yes misalignment misalignment: C2, C5 and C6 Thoracic/Lumber: Yes thoracic and lumbar spine normal to inspection, Yes Lasegue's sign negative, Yes straight leg raise negative bilaterally, Yes pain with thoraco-lumbar ROM with rotation to the right and with rotation to the left, Yes paraspinal tenderness bilaterally in the mid thoracic, in the lower thoracic and in the lower lumbar, No thoraco-lumbar ROM limited and Yes misalignment T4, T5, T6, T7, T8, L3, L4 and L5 Neuro General: patient alert, patient awake, patient oriented x3, normal light touch, pain and propioception and no focal motor deficits Cranial Nerves: CN's II-XI intact bilaterally Cognition: normal cognition Speech: speech normal Gait: normal gait Motor: muscle tone normal throughout Sensory Exam: no sensory deficits noted Ortho Test CERVICAL Compression pain: (more content not included)... Normal [facility] Basic Metabolic Profile (BMP )on 05-27-2024 BUN/CRE 16.3 RATIO Normal - [facility] Comment on above: Performed By: #### L 503.0106, L100.9950, L100.0100, L503.6030, L506.1001, L501.9520, L506.0400 #### [facility] [address] [place], [address] CA,Total 9.0 mg/dL Normal 8.5-10.1 [facility] Comment on above: Performed By: #### L 503.0106, L100.9950, L100.0100, L503.6030, L506.1001, L501.9520, L506.0400 #### [facility] [address] [place], [address] Chloride [Moles/Vol] 110 mmol/L High 98-107 [facility] Comment on above: Performed By: #### L 503.0106, L100.9950, L100.0100, L503.6030, L506.1001, L501.9520, L506.0400 #### [facility] [address] [place], [address] CO2 [Moles/Vol] 25.0 mmol/L Normal 21.0-32.0 [facility] Comment on above: Performed By: #### L 503.0106, L100.9950, L100.0100, L503.6030, L506.1001, L501.9520, L506.0400 #### [facility] [address] [place], [address] Creatinine [Mass/Vol] 0.73 mg/dL Normal 0.55-1.02 [facility] Comment on above: Result Comment: The validity of the calculated GFR GFRAA in patients over 70 years has not been determined. Clinical correlation is essential. Performed By: #### L 503.0106, L100.9950, L100.0100, L503.6030, L506.1001, L501.9520, L506.0400 #### [facility] [address] [place], [address] EST GFR - AA 128 mL/min Normal >60 [facility] Comment on above: Result Comment: Afri can Grenadian GFR Calc Performed By: #### L 503.0106, L100.9950, L100.0100, L503.6030, L506.1001, L501.9520, L506.0400 #### [facility] [address] [place], [address] GAP 3 Low 5-15 [facility] Comment on above: Performed By: #### L 503.0106, L100.9950, L100.0100, L503.6030, L506.1001, L501.9520, L506.0400 #### [facility] [address] [place], [address] GFR/1.73 sq M.predicted among non-blacks MDRD (S/P/Bld) [Vol rate/Area] 106 mL/min/{1.73_m2} Normal >60 [facility] Comment on above: Result Comment: Non- GFR Calc Performed By: #### L 503.0106, L100.9950, L100.0100, L503.6030, L506.1001, L501.9520, L506.0400 #### [facility] [address] [place], [address] Glucose [Mass/Vol] 88 mg/dL Normal 74-106 [facility] Comment on above: Performed By: #### L 503.0106, L100.9950, L100.0100, L503.6030, L506.1001, L501.9520, L506.0400 #### [facility] [address] [place], [address] Potassium [Moles/Vol] 3.7 mmol/L Normal 3.5-5.1 [facility] Comment on above: Performed By: #### L 503.0106, L100.9950, L100.0100, L503.6030, L506.1001, L501.9520, L506.0400 #### [facility] [address] [place], [address] Sodium [Moles/Vol] 139 mmol/L Normal 136-145 [facility] Comment on above: Performed By: #### L 503.0106, L100.9950, L100.0100, L503.6030, L506.1001, L501.9520, L506.0400 #### [facility] [address] [place], [address] Urea nitrogen [Mass/Vol] 12 mg/dL Normal 7-18 [facility] Comment on above: Performed By: #### L 503.0106, L100.9950, L100.0100, L503.6030, L506.1001, L501.9520, L506.0400 #### [facility] [address] [place], [address] Blood urea nitrogen (BUN)/cr eatinine ratioon 05-27-2024 Urea nitrogen/Creatinine [Mass ratio] 16.3 mg/mg 10- [facility] Carbon dioxide measurementon 05-27-2024 CO2 [Moles/Vol] 25.0 mmol/L 21.0-32.0 [facility] Chloride measurementon 05-27 Chloride [Moles/Vol] 110 mmol/L High 98-107 [facility] Estimated glomerular filtrat ion rate (GFR) Americanon 05-27-2024 Estimated GFR (MDRD) Amer 128 mL/min >60 [facility] Comment on above: GFR Calc Glomerular filtration rate ( GFR) estimationon 05-27-2024 Estimated GFR (MDRD) Non-Af Amer 106 mL/min >60 [facility] Comment on above: Non- GFR Calc Glucose measurementon 2023 Glucose [Mass/Vol] 88 mg/dL 74-106 [facility] Magnesiumon 05-27-2024 Magnesium [Mass/Vol] 2.0 mg/dL Normal 1.6-2.6 [facility] Comment on above: Performed By: #### L 503.0106, L100.9950, L100.0100, L503.6030, L506.1001, L501.9520, L506.0400 #### [facility] [address] [place] [address]. [place], [address] Magnesium measurementon 05-08 Magnesium [Mass/Vol] 2.0 mg/dL 1.6-2.6 [facility] Potassium measurementon 05-08 Potassium [Moles/Vol] 3.7 mmol/L 3.5-5.1 [facility] Serum anion gap measuremento n 05-27-2024 Anion gap [Moles/Vol] 3 mmol/L Low 5-15 [facility] Serum or plasma calcium sriram urement (mass/volume)on 05-27-2024 Calcium [Mass/Vol] 9.0 mg/dL 8.5-10.1 [facility] Serum or plasma creatinine m easurement (mass/volume)on 05-27-2024 Creatinine [Mass/Vol] 0.73 mg/dL 0.55-1.02 [facility] Comment on above: The validity of the calculated GFR & GFRAA in patients over 70 years has not been determined. Clinical correlation is essential. Serum or plasma urea nitroge n measurement (mass/volume)on 05-27-2024 Urea nitrogen [Mass/Vol] 12 mg/dL 7-18 [facility] Sodium levelon 05-27-2024 Sodium [Moles/Vol] 139 mmol/L 136-145 [facility] CNPNon 05-26-2024 CNPN Normal [facility] Urgent Care Visit Reporton 1 07-24-2023 Urgent Care Visit Report [facility] [address], [address] [place] [address] OFFICE VISIT Date of Service: 05/24/24 MR#: [id number] Acct: [id number] Name: MIKAYLA BLUNT Rep #: [id number] : 2000 Provider: JARED Tenorio Age/Sex: 23/F Location: [facility] [place] Status: Signed Intake Vital Signs 12/01/23 10:48 05/24/24 15:11 Height 5 ft 1 in 5 ft 1 in Weight: 116 lb BMI 21.9 BP 110/64 Blood Pressure Location Lt brachial Position Sitting Respiration 18 Pulse 41 L Pulse Source Monitor Temp 98.9 F Temp Source Temporal Pulse Oximetry (%) 98 Oxygen Delivery Method room air Intake Visit Reasons: COUGH, FEVER, CONGESTION Chief Complaint: ST, CALLES x3days Equipment Operat0R Required: No Is patient in pain?: No Allergies cefdinir Allergy (Intermediate, Verified 05/24/24 15:10) Swelling diphenhydramine (From Benadryl) Allergy (Intermediate, Verified 05/24/24 15:13) Other prochlorperazine (From Compazine) Allergy (Intermediate, Verified 05/24/24 15:13) Other gluten Allergy (Verified 05/24/24 15:10) Upset Stomach latex Allergy (Verified 05/24/24 15:10) Hives midazolam HCl (From Versed) Allergy (Verified 05/24/24 15:10) Other Penicillins Allergy (Verified 05/24/24 15:10) Hives Medications ???Medication ???Instructions ???Recorded ???Confirmed ???Type methylphenidate HCl 18 mg 18 mg PO DAILY 05/09/21 05/24/24 History tablet,extended release 24 hr (Concerta) propranolol 60 mg capsule,24 60 mg PO DAILY 09/12/23 05/24/24 History hr,extended release gabapentin 100 mg capsule mg PO 05/24/24 05/24/24 History levofloxacin 500 mg tablet 500 mg PO Q24H #10 tabs 05/24/24 05/24/24 Rx linaclotide 290 mcg capsule 290 mcg PO QDAY 05/24/24 05/24/24 History (Linzess) pyridostigmine bromide 60 mg tablet 60 mg PO TID 05/24/24 05/24/24 History Nurse's Note: States 2 weeks ago she started w/ sore throat, chest congestion, fever. Was treated w/ atbs. Last 4 days has nasal congestion, body aches, sore throat, fatigue, Fever started friday. Has been taking ibuprofen and tylneol. Did have wedding over weekend PFSH Medical History Epilepsy POTS (postural orthostatic tachycardia syndrome) Constipation Elevated transaminase level Narcolepsy GERD (gastroesophageal reflux disease) Headaches, cluster Environmental allergies Surgical History History of tonsillectomy and adenoidectomy Family History Father Migraine Daughter Migraine Mother Migraine Other Anxiety Asthma Hypertension Social History Smoking Status: Never smoker alcohol intake: never substance use type: does not use what type of physical activity do you participate in: walking and weight training frequency: 3-4 times per week duration: 30-45 minutes/day HPI HPI Chief Complaint: ST, CALLES x3days Details: MIKAYLA BLUNT, is a 23 F who presents to the office today for initial evaluation [facility] the [facility] for approximately 2-week history of waxing and waning sore throat, chest congestion, fever, nasal congestion, body aches, fatigue - progressively worsening over last 3 days. She was given a Z-Christopher by another medical provider approximately a week and a half ago with some improvement but then shortly thereafter the symptoms returned. Patient notes no complaints of chest pain or shortness of breath or dyspnea on exertion. Several close contacts recently dx???d w/ similar URI complaints. Ibuprofen and Tylenol taken to assist. Non-smoker. Requested Cepheid POC screening. No other associated symptoms and no other alleviating/aggravating factors. ROS Const Constitutional: No other (As above) Exam Const General: cooperative, healthy appearing and no acute distress Orientation: alert, awake and oriented x3 HENMT Head: normal to inspection Ears: hearing grossly normal bilaterally, external ears normal, TM's normal bilaterally and EAC's normal Nose: external nose normal, nares normal, septum normal and clear nasal discharge Face and sinus: normal facial exam, bilateral frontal and maxillary sinus palpable tender and face symmetric Mouth: oral mucosae normal, lip normal, tongue normal and oropharynx normal Throat: posterior oropharynx normal, tonsils normal, uvula midline and purulent postnasal drainage Eyes General: appearance normal, both eyes and all related structures Neck Neck: normal visual inspection, full ROM, no lymphadenopathy, no meningeal signs and supple Neck mass: No Thyroid: thyroid normal Lymphatic: no lymphadenopathy noted Chest Chest palpation inspecti (more content not included)... Normal [facility] PET+CT Brain for tau protein on 04-13-2024 IMPRESSION: PRIMARY DISEASE SITE: * No SSTR2 expressing gastroenteropancreatic neoplasm. SOUMYA DISEASE: * No SSTR2 expressing regional lymphadenopathy. METASTATIC DISEASE: * No SSTR2 expressing distant metastases. Secure Software Assessor: AMAIRANI Transcribe Date/Time: Apr 13 2024 1:34P Dictated by : MOUNA PEREZ MD This examination was interpreted and the report reviewed and electronically signed by: MOUNA PEREZ MD on Apr 13 2024 1:45PM [facility] DIVISION OF RADIOLOGY * * *Final Report* * * DATE OF EXAM: Apr 13 2024 8:46AM N 0094 - NM PET/CT NEUROENDOCRINE WB / PROCEDURE REASON: Malignant carcinoid tumor, unspecified site (HCC) * * * * Physician Interpretation * * * * EXAMINATION: SOMATOSTATIN RECEPTOR PET-CT CLINICAL HISTORY: Malignant carcinoid tumor, unspecified site. EXAM CATEGORY: Initial treatment strategy. TECHNIQUE: Radiopharmaceutical was administered IV followed by PET imaging from the skull vertex to thighs. Free breathing, low dose CT of the same body region was acquired without IV contrast for attenuation correction and anatomic localization. Unenhanced imaging is limited for the evaluation of some pathology and the acquired CT was not designed to produce diagnostic CT scan quality. Physiologic/non-patholo gic uptake in some body regions could confound or obscure some pathology. * CT Dose-Length Product (DLP): 210 mGy*cm * CT Dose Reduction Employed: Yes * Injection site: Left Forearm-Antecubital * Injected activity: 5.6 mCi * Uptake Time: 69 minutes * Radiopharmaceutical: Ga-68 Dotatate COMPARISON: No prior Dotatate PET/CT available CORRELATION: MRI liver 02/01/2024, CT abdomen/pelvis 01/27/2024 RESULT: REFERENCES: Dotatate uptake serves as a surrogate marker for somatostatin receptor 2 (SSTR2) expression. All reported standardized uptake values represent maximum SUV (SUVmax) per body weight, unless otherwise specified. SUV Reference Values: * Background Liver: SUVmax 9.2 * Background Spleen: SUVmax 26.4 Localizer Images: No additional findings. HEAD AND NECK: Head: No radiotracer avid lesion or mass effect in the intracranial compartment. Aerodigestive Tract: No radiotracer avid lesion. Lymph Nodes: No radiotracer avid lymphadenopathy. Neck Soft Tissues: No radiotracer avid thyroid nodule. CHEST: Lungs & Pleura: No radiotracer avid mass, nodule, or consolidation. No pleural effusion. Lymph Nodes: No radiotracer avid lymphadenopathy. Mediastinum: No radiotracer avid mass. Cardiovascular: Blood pool activity. No pericardial effusion. Normal heart size. Chest Wall: No radiotracer avid soft tissue lesion. ABDOMEN AND PELVIS: Hepatobiliary: No radiotracer avid lesion. No measurable mass. Spleen: No radiotracer avid lesion. No splenomegaly. Pancreas: No radiotracer avid lesion. Adrenals: No radiotracer avid nodule. Urinary Tract: Physiologic radiotracer excretion in the renal collecting systems and urinary bladder. No hydronephrosis. GI Tract: No radiotracer avid lesion. No bowel dilation. Peritoneum: No radiotracer avid lesion. No ascites. Lymph Nodes: No radiotracer avid lymphadenopathy. Vasculature: Blood pool activity. Pelvic Organs: No radiotracer avid lesion. MUSCULOSKELETAL: Bones: No radiotracer avid lesion. No lytic or sclerotic lesion. Soft Tissues: No radiotracer avid lesion. DIVISION OF RADIOLOGY Provider, [facility] - 04/13/2024 * * *Final Report* * * DATE OF EXAM: Apr 13 2024 8:46AM [facility] 0094 - NM PET/CT NEUROENDOCRINE WB / PROCEDURE REASON: Malignant carcinoid tumor, unspecified site (HCC) * * * * Physician Interpretation * * * * EXAMINATION: SOMATOSTATIN RECEPTOR PET-CT CLINICAL HISTORY: Malignant carcinoid tumor, unspecified site. EXAM CATEGORY: Initial treatment strategy. TECHNIQUE: Radiopharmaceutical was administered IV followed by PET imaging from the skull vertex to thighs. Free breathing, low dose CT of the same body region was acquired without IV contrast for attenuation correction and anatomic localization. Unenhanced imaging is limited for the evaluation of some pathology and the acquired CT was not designed to produce diagnostic CT scan quality. Physiologic/non-patholo gic uptake in some body regions could confound or obscure some pathology. * CT Dose-Length Product (DLP): 210 mGy*cm * CT Dose Reduction Employed: Yes * Injection site: Left Forearm-Antecubital * Injected activity: 5.6 mCi * Uptake Time: 69 minutes * Radiopharmaceutical: Ga-68 Dotatate COMPARISON: No prior Dotatate PET/CT available CORRELATION: MRI liver 02/01/2024, CT abdomen/pelvis 01/27/2024 RESULT: REFERENCES: Dotatate uptake serves as a surrogate marker for somatostatin receptor 2 (SSTR2) expression. All reported standardized uptake values represent maximum SUV (SUVmax) per body weight, unless otherwise specified. SUV Reference Values: * Background Liver: SUVmax 9.2 * Background Spleen: SUVmax 26.4 Localizer Images: No additional findings. HEAD AND NECK: Head: No radiotracer avid lesion or mass effect in the intracranial compartment. Aerodigestive Tract: No radiotracer avid lesion. Lymph Nodes: No radiotracer avid lymphadenopathy. Neck Soft Tissues: No radiotracer avid thyroid nodule. CHEST: Lungs & Pleura: No radiotracer avid mass, nodule, or consolidation. No pleural effusion. Lymph Nodes: No radiotracer avid lymphadenopathy. Mediastinum: No radiotracer avid mass. Cardiovascular: Blood pool activity. No pericardial effusion. Normal heart size. Chest Wall: No radiotracer avid soft tissue lesion. ABDOMEN AND PELVIS: Hepatobiliary: No radiotracer avid lesion. No measurable mass. Spleen: No radiotracer avid lesion. No splenomegaly. Pancreas: No radiotracer avid lesion. Adrenals: No radiotracer avid nodule. Urinary Tract: Physiologic radiotracer excretion in the renal collecting systems and urinary bladder. No hydronephrosis. GI Tract: No radiotracer avid lesion. No bowel dilation. Peritoneum: No radiotracer avid lesion. No ascites. Lymph Nodes: No radiotracer avid lymphadenopathy. Vasculature: Blood pool activity. Pelvic Organs: No radiotracer avid lesion. MUSCULOSKELETAL: Bones: No radiotracer avid lesion. No lytic or sclerotic lesion. Soft Tissues: No radiotracer avid lesion. IMPRESSION IMPRESSION: PRIMARY DISEASE SITE: * No SSTR2 expressing gastroenteropancreatic neoplasm. SOUMYA DISEASE: * No SSTR2 expressing regional lymphadenopathy. METASTATIC DISEASE: * No SSTR2 expressing distant metastases. Secure Software Assessor: PSCB Transcribe Date/Time: Apr 13 2024 1:34P Dictated by : MOUNA PEREZ MD This examination was interpreted and the report reviewed and electronically signed by: MOUNA PEREZ MD on Apr 13 2024 1:45PM EST [facility] Radiology Study observation (narrative) [facility] for tau protein Ordered By: [facility] Provider on 04-13-2024 [facility] ANES POSTPROC EVALon 024 ANES POSTPROC EVAL HNO ID: [id number] Author: XIMENA ALVARENGA MD Service: Critical Care Author Type: Anesthesiologist Type: Anesthesia Postprocedure Evaluation Filed: 04/09/2024 10:03 Note Text: POST ANESTHESIA EVALUATION NOTE : 2000 Procedure Summary Date: 04/09/24 Room / Location: [facility] Anesthesia Start: 845 Anesthesia Stop: 925 Procedure: EGD - THERAPEUTIC, EUS, OR TUBE INTERVENTIONS Diagnosis: Gastroparesis IBD (inflammatory bowel disease) (Crohn's disease) Scheduled Providers: Dustin Tamayo DO Responsible Provider: Ximena Alvarenga MD Anesthesia Type: MAC ASA Status: 3 Anesthesia Type: MAC Last Vitals Vitals Value Taken Time BP 102/62 04/09/24 1000 Temp 36.6 ?C (97.9 ?F) 04/09/24 0926 Pulse 58 04/09/24 1001 Resp 18 04/09/24 0945 SpO2 100 % 04/09/24 1001 Vitals shown include unfiled device data. Post Anesthesia Patient Status Patient Evaluation: PACU. Anticipated Disposition: phase 2 then home. Neurological Status: aware and responsive. Pulmonary Status: breathing comfortably on room air Airway Control: returned to baseline unsupported. Cardiovascular Status: stable. Pain Management: clinically adequate - multimodal analgesia pain management approach Postoperative Hydration: acceptable. Intraoperative Events: no significant anesthesia events Post Operative Nausea/Vomiting Status: no significant post operative nausea or vomiting Recommendation: continue current plan of care and further care per PACU/ICU/floor team. Anesthesia Observations No Documentation SIGNATURE: Ximena Alvarenga MD PATIENT NAME: Mikayla Blunt DATE: April 09, 2024 TIME: 10:02 AM CSN: [id number] [facility] ANES PRE-OPon 04-09-2024 ANES PRE-OP HNO ID: [id number] Author: XIMENA ALVARENGA MD Service: Critical Care Author Type: Anesthesiologist Type: Anesthesia Preprocedure Evaluation Filed: 04/09/2024 08:25 Note Text: ANESTHESIOLOGY DAY OF SURGERY NOTE : 2000 Procedure Information Date/Time: 04/09/2430 Scheduled providers: Dustin Tamayo DO Procedure: EGD - THERAPEUTIC, EUS, OR TUBE INTERVENTIONS Location: [facility] Estimated body mass index is 20.67 kg/m? as calculated from the following: Height as of 03/24/24: 157.5 cm (5' 2). Weight as of 03/24/24: 51.3 kg (113 lb). Most recent hematocrit and potassium results: Hematocrit 41.6 03/04/2024 Potassium 4.2 03/01/2024 Relevant Problems ANESTHESIA (+) Delayed emergence from anesthesia (+) PONV (postoperative nausea and vomiting) CARDIO (+) Liver hemangioma GI (+) GERD (gastroesophageal reflux disease) -RENAL (+) Liver hemangioma NEURO-PSYCH (+) Epilepsy (HCC) PULMONARY (+) Mild intermittent asthma without complication I - PHYSICAL EVALUATION AIRWAY Patient intubated: No. Mallampati: II. TM distance: >3 FB. Neck ROM: full ROM without neurological symptoms. Mouth opening: adequate. Short neck: no. Thick neck: no Ng present: no Microretrognathia/Micro nagthia/Recessed Chin: No DENTAL Dental findings: teeth intact. Additional exam findings: no II - ANESTHESIA PLAN ASA Score: 3 Anesthetic Plan: MAC The patient is not a current smoker. NPO Status: adequate Anesthetic plan additional comments: Patient gets violent with Versed per report and look to avoid unless Seizure concerns.. Beta Alvino Administration of chronic beta alvino medication not planned. Reasons for not administering beta alvino perioperatively: other Monitoring Plan Monitoring plan: standard ASA. Post Procedure Analgesic Plan Postoperative analgesic plan: multimodal analgesia. Informed Consent Anesthetic risks, benefits, alternatives, personnel and consent discussed: yes. Patient / Responsible Constitution Party agrees to proceed: yes Patient / Surrogate agrees to blood products: Yes DNR status not reviewed with patient and/or family prior to surgery. Significant changes in the patient condition since the History and Physical, not otherwise documented in primary service progress note: no. Potential Anesthesia issues that may suggest increased risk of complications or contraindication to planned procedure: none. Discussed the possibility of lip / dental damage: yes Vitals Value Taken Time BP 116/75 04/09/24699 Pulse 65 04/09/24699 Resp 17 04/09/24699 Temp 37.2 ?C (99 ?F) 04/09/24699 SpO2 100 % 04/09/24699 Outpatient Medications as of 04/09/2024 Medication Sig famotidine (PEPCID) 20 mg tablet Take 1 tablet by mouth two times a day. gabapentin (NEURONTIN) 100 mg capsule Take 100mg twice a day and 300mg at bedtime. pyridostigmine (MESTINON) 60 mg tablet Take 1 tablet by mouth three times a day. linaCLOtide (LINZESS) 290 mcg capsule Take 1 capsule by mouth daily at 6 am. potassium chloride SR (MICRO-K) 10 mEq CR capsule Take 10 mEq by mouth. propranolol ER (INDERAL LA) 60 mg 24 hr capsule Take 1 capsule by mouth once daily. tenapanor (IBSRELA) 50 mg tablet Take 1 tablet (50 mg) by mouth two times a day. methylphenidate ER (CONCERTA) 18 mg biphasic tablet Take 1 tablet by mouth every morning for 30 days. MULTIVITAMIN ORAL Take 1 tablet by mouth once daily. Facility-Administered Medications as of 04/09/2024 Medication Dose Route Frequency lidocaine 10 mg/mL (1 %) 1-2 mg injection (XYLOCAINE) 0.1-0.2 mL INTRADERMAL PRN lactated ringers iv infusion 30 mL/hr INTRAVENOUS CONTINUOUS I have interviewed and examined the patient. I have reviewed the medical record and/or the pre-anesthesia evaluation, pertinent labs, and test results. This contains updated information obtained within 48 hours of Surgery/Procedure. SIGNATURE: Ximena Alvarenga MD PATIENT NAME: Mikayla Blunt DATE: April 09, 2024 TIME: 8:24 AM CSN: [id number] [facility] EGD Study observation Summer molina 04-09-2024 [facility] Gastrointestinal Endoscopy Patient Name: Mikayla Blunt Procedure Date: 04/09/2024 8:38 AM Date of : 2000 Admit Type: Outpatient Age: 23 Room: [place] [address] Gender: Female Note Status: Finalized Attending MD: Dustin Tamayo DO, [id number] Procedure: Upper GI endoscopy Indications: Crohn's disease, Gastroparesis Providers: Dustin Tamayo DO Patient Profile: This is a 23 year old female. Refer to note in patient chart for documentation of history and physical. Referring Physician: Dustin Tamayo DO (Referring MD) Medicines: See the Anesthesia note for documentation of the administered medications Complications: No immediate complications. Requesting Provider: Procedure: Pre-Anesthesia Assessment: - Prior to the procedure, a History and Physical was performed, and patient medications and allergies were reviewed. The patient is competent. The risks and benefits of the procedure and the sedation options and risks were discussed with the patient. All questions were answered and informed consent was obtained. Patient identification and proposed procedure were verified by the physician in the pre-procedure area. Mental Status Examination: alert and oriented. Airway Examination: normal oropharyngeal airway and neck mobility. Respiratory Examination: clear to auscultation. CV Examination: normal. Prophylactic Antibiotics: The patient does not require prophylactic antibiotics. Prior Anticoagulants: The patient has taken no anticoagulant or antiplatelet agents. ASA Grade Assessment: II - A patient with mild systemic disease. After reviewing the risks and benefits, the patient was deemed in satisfactory condition to undergo the procedure. The anesthesia plan was to use monitored anesthesia care (MAC). Immediately prior to administration of medications, the patient was re-assessed for adequacy to receive sedatives. The heart rate, respiratory rate, oxygen saturations, blood pressure, adequacy of pulmonary ventilation, and response to care were monitored throughout the procedure. The physical status of the patient was re-assessed after the procedure. After obtaining informed consent, the endoscope was passed under direct vision. Throughout the procedure, the patient's blood pressure, pulse, and oxygen saturations were monitored continuously. The Endoscope was introduced through the mouth, and advanced to the third part of duodenum. The upper GI endoscopy was accomplished without difficulty. The patient tolerated the procedure well. Moderate Sedation: MAC anesthesia was administered by the anesthesia team. Total Procedure Duration: 0 hours 21 minutes 54 seconds Findings: The examined esophagus was normal. The entire examined stomach was normal. Multiple biopsies were obtained with cold forceps for histology randomly in the gastric fundus, in the gastric body, on the anterior wall of the stomach, on the greater curvature of the stomach, on the lesser curvature of the stomach and in the gastric antrum. Estimated blood loss was minimal. The examined duodenum was normal. Using the endoscope, the video capsule enteroscope was advanced into the second portion of the duodenum. There was edematous mucosa noted in the sigmoid colon suggestive of prolapsing tissue in the diverticular region of the distal sigmoid colon. Impression: - Normal esophagus. - Normal stomach. - Normal examined duodenum. - Multiple biopsies were obtained in the gastric fundus, in the gastric body, on the anterior wall of the stomach, on the greater curvature of the stomach, on the lesser curvature of the stomach and in the gastric antrum. Recommendation: - Patie (more content not included)... PROVATION [facility] Radiology Study observation (narrative) [facility] HISTORY PHYSICALon HISTORY PHYSICAL HNO ID: [id number] Author: DARRYN MCKEON PA-C Service: Gastroenterology Author Type: Physician Commercial Collections Driver Type: H&P Filed: 04/09/2024 07:39 Note Text: UPDATED HISTORY AND PHYSICAL EXAMINATION SERVICE DATE: 04/09/2024 SERVICE TIME: 7:23 AM SERVICE: Gastroenterology PHYSICAL EXAM MUST BE COMPLETED ON ADMISSION The History and Physical (completed in the past 30 days) has been reviewed and the patient has been examined. The contents accurately reflect the patient's condition with the following additions or revisions since the HANDP was completed. Patient denies any changes to health since last examination. Planned procedure for today is EGD Medication reconciliation list reviewed in [facility]. Past medical history, past surgical history, social history and family history reviewed and updated in [facility]. ALLERGIES Allergen Reactions Cefdinir Swelling Hydrocodone-Acetami* Swelling Latex Swelling Penicillins Rash Benadryl [Diphenhyd* Mental Status Change agitation Droperidol Other: See Comments akathesia Compazine [Prochlor* Intolerance Restlessness, agitation Gluten GI Upset Versed [Midazolam H* Mental Status Change Pulling out IV's, extremely confused and restless, getting on hands and knees BP 116/75 Pulse 65 Temp 37.2 ?C (99 ?F) (Temporal) Resp 17 LMP 02/25/2024 (Approximate) SpO2 100% Examination indicates no changes. On examination today: Lungs: Clear to auscultation bilaterally. Heart: RRR, Normal S1/S2, No significant murmurs, rubs, gallops or thrills appreciated. Abdomen: BS+ in all quadrants, abdomen is soft, non tender, and without guarding. Assessment: Gastroparesis Plan: EGD This HANDP can be found in the Electronic Medical Record dated 03/24/2024 by Tena Harris APRN.CORRECTIONAL PROBATION OFFICER SIGNATURE: Darryn Mckeon PA-C PATIENT NAME: Mikayla Blunt DATE: April 09, 2024 TIME: 7:23 AM [facility] SURGICAL PATHOLOGYon 024 ADDENDUM 1: [facility] Comment on above: Order Comment: Speci men Type: TISSUE SPECIMENOrdering Facility: [facility] Address: [address] [place] [address] Result Comment: B, D . Immunohistochemical stains for Helicobacter pylori organisms performed on blocks B1 and D1 are negative. Laboratory Developed Test (LDT) Disclaimer: Performance characteristics of immunohistochemical, immunofluorescent and chromogenic in-situ hybridization tests have been determined by the performing laboratory within [facility]???s [facility] Pathology and Laboratory Medicine Department ([facility], [facility], [facility], [facility], [facility], [facility], or [facility]) in a manner consistent with CLIA requirements. One or more of these tests have not been cleared or approved by the FDA. [facility] is regulated under CLIA as qualified to perform high-complexity testing. These tests are used for clinical purposes. They should not be regarded as investigational or for research. Positive and negative controls stain appropriately. JEL 04/15/2024 Addendum electronically signed by Tereso Stokes MD on 04/15/2024 at 7:08 AM Performed By: #### S ####[facility] LABORATORYCLIA [id number] [address] OF [facility] LABCLIA [id number] [place] [address] [place] CASE REPORT Normal [facility] Comment on above: Order Comment: Speci men Type: TISSUE SPECIMENOrdering Facility: [facility] Address: [address] [place] [address] Result Comment: Surg [facility] Pathology Report Case: [id number] Authorizing Provider: Dustin Tamayo DO Collected: 04/09/2024 08:56 AM Ordering Location: [facility] Received: 04/09/2024 10:35 AM [facility] Pathologist: Supa Kang MD Specimens: A) - Stomach, Antrum, Biopsy B) - Stomach, Biopsy, Lesser curve bx.s C) - Stomach, Biopsy, greater curve bx.s D) - Stomach, Fundus, Biopsy Performed By: #### S ####[facility] LABORATORYCLIA [id number] [address] STATES OF [facility] LABCLIA [id number] [place] [address] [place] CLINICAL HISTORY R/O H. Pylori and crohns Normal [facility] Comment on above: Order Comment: Speci men Type: TISSUE SPECIMENOrdering Facility: [facility] Address: [address] [place] [address] Performed By: #### S ####[facility] LABORATORYCLIA [id number] [place] [address] [place] [facility] LABCLIA [id number] [place] [address] [place] DIAGNOSIS COMMENT Normal [facility] Comment on above: Order Comment: Speci men Type: TISSUE SPECIMENOrdering Facility: [facility] Address: [address] [place] [address] Result Comment: A,C. No microorganisms morphologically compatible with Helicobacter Pylori like organisms are identified by routine H&E-stained sections. B,D. Immunohistochemical staining for Helicobacter pylori organisms is pending; the result will be reported as an addendum. Performed By: #### S ####[facility] LABORATORYCLIA [id number] [address] OF [facility] LABCLIA [id number] [address] FINAL DIAGNOSIS Normal [facility] Comment on above: Order Comment: Speci men Type: TISSUE SPECIMENOrdering Facility: [facility] Address: [address] [place] [address] Result Comment: A. S tomach, antrum, biopsy: - Gastric antral type mucosa with mild chronic inactive gastritis; negative for Crohn's disease see comment. B. Stomach, lesser curve, biopsy: - Gastric antral type mucosa with chronic inactive gastritis; negative for Crohn's disease; see comment. C. Stomach, greater curve, biopsy: - Gastric antral type mucosa with mild chronic inactive gastritis; negative for Crohn's disease see comment. D. Stomach, fundus, biopsy: - Gastric oxyntic type mucosa with chronic inactive gastritis; see comment Performed By: #### S ####[facility] LABORATORYCLIA [id number] [address] STATES OF [facility] LABCLIA [id number] [address] [facility] FINAL PERFORMING LAB [facility] Comment on above: Order Comment: Speci men Type: TISSUE SPECIMENOrdering Facility: [facility] Address: [address] [place] [address] Result Comment: Diag nostic interpretation performed at [facility], [address] [place] [address] CLIA# [id number] Con[employer] Yard: Supa Kang M.D. Performed By: #### S ####[facility] LABORATORYCLIA [id number] [address] LABCLIA [id number] [place] [address] [place] GROSS DESCRIPTION Normal [facility] Comment on above: Order Comment: Speci men Type: TISSUE SPECIMENOrdering Facility: [facility] Address: [address] [place] [address] Result Comment: A. S tomach, Antrum, Biopsy Received in formalin are multiple pieces of dukes, soft tissue aggregating to 1.0 x 0.6 x 0.3 cm. Totally submitted in one cassette. B. Stomach, Biopsy Received in formalin are multiple pieces of dukes, soft tissue aggregating to 1.0 x 0.5 x 0.2 cm. Totally submitted in one cassette. C. Stomach, Biopsy Received in formalin are multiple pieces of dukes, soft tissue aggregating to 0.9 x 0.5 x 0.3 cm. Totally submitted in one cassette. D. Stomach, Fundus, Biopsy Received in formalin are multiple pieces of dukes, soft tissue aggregating to 0.8 x 0.4 x 0.2 cm. Totally submitted in one cassette. April 09, 2024 1:17 PM Gross examination performed at [facility], [address] [place] [address] Performed By: #### S ####[facility] LABORATORYCLIA [id number] [address] LABCLIA [id number] [place] [address] [place] Upper GI endoscopy [address] [facility] Gastrointestinal Endoscopy Patient Name: Mikayla Blunt Procedure Date: 04/09/2024 8:38 AM Date of : 2000 Admit Type: Outpatient Age: 23 Room: [place] [address] Gender: Female Note Status: Finalized Attending MD: Dustin Tamayo DO, [id number] Procedure: Upper GI endoscopy Indications: Crohn's disease, Gastroparesis Providers: Dustin Tamayo DO Patient Profile: This is a 23 year old female. Refer to note in patient chart for documentation of history and physical. Referring Physician: Dustin Tamayo DO (Referring MD) Medicines: See the Anesthesia note for documentation of the administered medications Complications: No immediate complications. Requesting Provider: Procedure: Pre-Anesthesia Assessment: - Prior to the procedure, a History and Physical was performed, and patient medications and allergies were reviewed. The patient is competent. The risks and benefits of the procedure and the sedation options and risks were discussed with the patient. All questions were answered and informed consent was obtained. Patient identification and proposed procedure were verified by the physician in the pre-procedure area. Mental Status Examination: alert and oriented. Airway Examination: normal oropharyngeal airway and neck mobility. Respiratory Examination: clear to auscultation. CV Examination: normal. Prophylactic Antibiotics: The patient does not require prophylactic antibiotics. Prior Anticoagulants: The patient has taken no anticoagulant or antiplatelet agents. ASA Grade Assessment: II - A patient with mild systemic disease. After reviewing the risks and benefits, the patient was deemed in satisfactory condition to undergo the procedure. The anesthesia plan was to use monitored anesthesia care (MAC). Immediately prior to administration of medications, the patient was re-assessed for adequacy to receive sedatives. The heart rate, respiratory rate, oxygen saturations, blood pressure, adequacy of pulmonary ventilation, and response to care were monitored throughout the procedure. The physical status of the patient was re-assessed after the procedure. After obtaining informed consent, the endoscope was passed under direct vision. Throughout the procedure, the patient's blood pressure, pulse, and oxygen saturations were monitored continuously. The Endoscope was introduced through the mouth, and advanced to the third part of duodenum. The upper GI endoscopy was accomplished without difficulty. The patient tolerated the procedure well. Moderate Sedation: MAC anesthesia was administered by the anesthesia team. Total Procedure Duration: 0 hours 21 minutes 54 seconds Findings: The examined esophagus was normal. The entire examined stomach was normal. Multiple biopsies were obtained with cold forceps for histology randomly in the gastric fundus, in the gastric body, on the anterior wall of the stomach, on the greater curvature of the stomach, on the lesser curvature of the stomach and in the gastric antrum. Estimated blood loss was minimal. The examined duodenum was normal. Using the endoscope, the video capsule enteroscope was advanced into the second portion of the duodenum. There was edematous mucosa noted in the sigmoid colon suggestive of prolapsing tissue in the diverticular region of the distal sigmoid colon. Impression: - Normal esophagus. - Normal stomach. - Normal examined duodenum. - Multiple biopsies were obtained in the gastric fundus, in the gastric body, on the anterior wall of the stomach, on the greater curvature of the stomach, on the lesser curvature of the stomach and in the gastric antrum. Recommendation: - Patient has a contact number available for emergencies. The signs and symptoms of potential delayed complications were discussed with the patient. Return to normal activities tomorrow. Written discharge instructions were provided to the patient. - Resume previous diet indefinitely. - Continue present medications. - Await pathology results. Procedure Code(s): --- Professional --- 68470, Esophagogastroduodenosc opy, flexible, transoral; with biopsy, single or multiple Diagnosis Code(s): --- Professional --- K31.84, Gastroparesis K50.90, Crohn's disease, unspecified, without complications CPT copyright 2020 [employer]. All rights reserved. The codes documented in this report are preliminary and upon junior linux systems administrator review may be revised to meet current compliance requirements. Attending Participation: I personally performed the entire procedure. Scope In: 8:52:58 AM Scope Out: 9:14:52 AM DO Dustin Perdomo DO 04/09/2024 9:19:10 AM This report has been signed electronically by Dustin Tamayo DO Number of Addenda: 0 Note Initiated On: 04/09/2024 8:38 AM Estimated Blood Loss: Estimate (more content not included)... Normal [facility] NURSING PROGon 04-06-2024 NURSING PROG HNO ID: [id number] Author: BERNIE DE ANDA, RN Service: ? Author Type: Registered Nurse Type: Nursing Progress Note Filed: 04/06/2024 15:14 Note Text: [facility] ENDOSCOPY PRE PROCEDURE CALL Riccardo. I'm calling from [facility] endoscopy to provide you with the information for your surgery/procedure tomorrow. 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 Yes When anesthesia or sedation is being given: Patient instructed you must have an adult taxi truck driver because you will not be able to work or drive for the rest of the day after your test.Yes Patient instructed to have a responsible, adult taxi truck driver to take them home after the procedure Yes. Due to having sedation, there is no working or driving the day of the procedure. Your taxi truck driver is allowed to wait here with you or they may drop you off and come back to pick you up. Patient instructed: Do not eat anything the morning of the procedure, including gum, hard candy and mints.Yes Patient instructed not bring any valuables, jewelry, or lorenzo and wear comfortable clothing. Do not wear makeup, lotion, or finger mozambican. Yes Patient instructed: Please bring a list of medications including over the counter, vitamin, and herbals. If you are on inhalers, please do them in the morning before your test and bring them with you.Yes Blood pressure, seizure, or thyroid medications may be taken with a couple sips of water ONLY 4 hours prior to arrival time. Is the patient on blood thinners?no If so,verify if pt contacted the prescribing doctor to see how long they may hold blood thinners prior to procedure. Are you diabetic?No If so, advise pt to contact prescribing doctor to verify if any modifications are needed for insulin and/or pills Reminder:diabetic medication instructions should be given by the patient's ordering physician. If blood sugar drops, they can have CLEAR liquids to bring it up until 3 hours prior to arrival time. Hospitalizations: No Procedure and/or bowel prep instructions given to patient and questions answered: Yes, and they verbalized their understanding of instructions given Any barriers to Patient learning (confusion? Equipment Operat0R needed?): Patient/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 Tester responded appropriately on phone. Please complete your Pre-Check In paperwork in My Chart if applicable. If patient needs to reschedule please call: [phone] [facility] [address] phone number: [phone] Type of instruction given: Verbal by telephone contact. Normal [facility] Basic metabolic 2000 panelon 03-01-2024 Anion gap [Moles/Vol] 13 mmol/L 8 - 15 mmol/L [facility] Calcium [Mass/Vol] 9.8 mg/dL 8.5 - 10. 2 mg/dL [facility] Chloride [Moles/Vol] 104 mmol/L 98 - 10 7 mmol/L [facility] CO2 [Moles/Vol] 24 mmol/L 22 - 30 mmol/L [facility] Creatinine [Mass/Vol] 0.67 mg/dL 0.58 - 0.96 mg/dL [facility] GFR/1.73 sq M.predicted among non-blacks MDRD (S/P/Bld) [Vol rate/Area] 128 mL/min/{1.73_m2} - PINF [facility] Comment on above: Estimated Glomerular Filtration Rate (eGFR) is calculated using the 2020 CKD-EPI creatinine equation. This equation utilizes serum creatinine, sex, and age as parameters. The creatinine assay has traceable calibration to isotope dilution-mass spectrometry. Refer to KDIGO guidelines for clinical interpretation. In patients with unstable renal function, e.g. those with acute kidney injury, the eGFR may not accurately reflect actual GFR. Glucose [Mass/Vol] 91 mg/dL 74 - 99 mg/dL [facility] Comment on above: The [place] [employer] (ADA) provides guidance for cutoff values for fasting glucose and random glucose. The ADA defines fasting as no caloric intake for at least 8 hours. Fasting plasma glucose results between 100 to 125 mg/dL indicate increased risk for diabetes (prediabetes). Fasting plasma glucose results greater than or equal to 126 mg/dL meet the criteria for diagnosis of diabetes. In the absence of unequivocal hyperglycemia, results should be confirmed by repeat testing. In a patient with classic symptoms of hyperglycemia or hyperglycemic crisis, random plasma glucose results greater than or equal to 200 mg/dL meet the criteria for diagnosis of diabetes. Reference: Standards of Medical Care in Diabetes 2016, [place] [employer]. Diabetes Care. 2016.39(Suppl 1). Potassium [Moles/Vol] 4.2 mmol/L 3.7 - 5.1 mmol/L [facility] Sodium [Moles/Vol] 141 mmol/L 136 - 144 mmol/L [facility] Urea nitrogen [Mass/Vol] 8 mg/dL 7 - 21 mg/dL [facility] C-REACTIVE PROTEINon 024 CRP [Mass/Vol] mg/dL NINF - 0.9 mg/dL [facility] CREATINE KINASE/CKon 024 CK [Catalytic activity/Vol] 60 U/L 42 - 196 U/L [facility] CRP [Mass/Vol]on 03-01-2024 Interpretation and review of laboratory results Normal [facility] ESR Westergren method (Bld) [Velocity]on 03-01-2024 ESR (Bld) [Velocity] 2 mm/h [facility] Interpretation and review of laboratory results Normal [facility] HbA1c (Bld)on 03-01-2024 Average glucose Estimated from glycated hemoglobin (Bld) [Mass/Vol] 94 mg/dL [facility] Comment on above: eAG: (Estimated aver age glucose) is a calculated value from HgbA1c and is scheduling representative of the average blood glucose level in the last 2-3 month period. HbA1c (Bld) [Mass fraction] 4.9 % 4.3 - 5.6 % [facility] Comment on above: [place] [employer] sociation guidelines indicate that patients with HgbA1c in the range 5.7-6.4% are at increased risk for development of diabetes, and intervention by lifestyle modification may be beneficial. HgbA1c greater or equal to 6.5% is considered diagnostic of diabetes. [facility] IMMUNOGLOBULIN Aon 4 IgA [Mass/Vol] 122 mg/dL 70 - 400 mg/dL [facility] IMMUNOGLOBULIN Cristopher 4 IgG [Mass/Vol] 823 mg/dL 700 - 1600 mg/dL [facility] IMMUNOGLOBULIN Mon 4 IgM [Mass/Vol] 146 mg/dL 40 - 230 mg/dL [facility] No Panel Informationon 03-01 Interpretation and review of laboratory results Normal [facility] Interpretation and review of laboratory results Normal [facility] THYROID STIMULATING HORMONEo n 03-01-2024 TSH Qn 1.040 m[IU]/L [facility] Comment on above: If the patient is pr egnant, TSH reference range varies by gestational period: First Trimester (weeks 9-12): 0.180-2.990 mIU/L Second Trimester: 0.110-3.980 mIU/L Third Trimester: 0.480-4.710 mIU/L Krunal L, et al. A Practical Approach for the Verifications and Determination of Site- and Trimester-Specific Reference Intervals for Thyroid Function tests in . Thyroid, 2019:29:3:412-420. Ruben Narayanan, et al. 2017 Guidelines of the [place] [employer] for the Diagnosis and Management of Thyroid Disease during and the . Thyroid, 2017:27:3:315-389. XR Abdomen Supine and Uprigh ton 11-18-2023 IMPRESSION: Nonobstructive bowel gas pattern. Moderately large stool burden. Secure Software Assessor: PSCTereza Transcribe Date/Time: Nov 18 2023 4:18P Dictated by : BELINDA GIORDANO MD This examination was interpreted and the report reviewed and electronically signed by: BELINDA GIORDANO MD on Nov 18 2023 4:19PM [facility] DIVISION OF RADIOLOGY * * *Final Report* * * DATE OF EXAM: Nov 18 2023 9:18AM [id number] - XR ABD 2V SUPINE W UPR/DECUB/CTL / PROCEDURE REASON: Epigastric pain * * * * Physician Interpretation * * * * TITLE: XR ABD 2V SUPINE W UPR/DECUB/CTL CLINICAL INDICATION: Epigastric pain and vomiting. TECHNIQUE: Supine and upright frontal radiographs of the abdomen COMPARISON: Radiograph dated November 03, 2022 FINDINGS: Visualized lung bases clear. Nonobstructive bowel gas pattern. Moderately large stool burden scattered throughout the colon. No gross pneumoperitoneum. Levocurvature of the lumbar spine. DIVISION OF RADIOLOGY [facility] * * *Final Report* * * DATE OF EXAM: Nov 18 2023 9:18AM [id number] - XR ABD 2V SUPINE W UPR/DECUB/CTL / PROCEDURE REASON: Epigastric pain * * * * Physician Interpretation * * * * TITLE: XR ABD 2V SUPINE W UPR/DECUB/CTL CLINICAL INDICATION: Epigastric pain and vomiting. TECHNIQUE: Supine and upright frontal radiographs of the abdomen COMPARISON: Radiograph dated November 03, 2022 FINDINGS: Visualized lung bases clear. Nonobstructive bowel gas pattern. Moderately large stool burden scattered throughout the colon. No gross pneumoperitoneum. Levocurvature of the lumbar spine. IMPRESSION IMPRESSION: Nonobstructive bowel gas pattern. Moderately large stool burden. Secure Software Assessor: PSCB Transcribe Date/Time: Nov 18 2023 4:18P Dictated by : BELINDA GIORDANO MD This examination was interpreted and the report reviewed and electronically signed by: BELINDA GIORDANO MD on Nov 18 2023 4:19PM EST [facility] Radiology Study observation (narrative) [facility] XR Abdomen Supine and Uprigh tOrdered By: [facility] Provider on 11-18-2023 [facility] Basophil percentageOrdered B y: Carly Callejas on 11-06-2023 Chloride [Moles/Vol] 103 mmol/L 98-107 [facility] Glucose [Mass/Vol] 113 mg/dL 74-106 [facility] Comment on above: Fasting Glucose resu lt from 100 to 125 mg/dL suggests IMPAIRED HOMEOSTASIS per A.D.A. criteria. Potassium [Moles/Vol] 3.6 mmol/L 3.5-5.1 [facility] Sodium [Moles/Vol] 138 mmol/L 136-145 [facility] Laboratory - Chemistry and C hemistry - challengeOrdered By: Carly Callejas on 11-06-2023 CO2 [Moles/Vol] 28.0 mmol/L 21.0-32.0 [facility] Urea nitrogen/Creatinine [Mass ratio] 18.2 mg/mg 10-20 [facility] No Panel InformationOrdered By: Carly Callejas on 11-06-2023 Estimated GFR (MDRD) Amer 122 mL/min >60 [facility] Comment on above: GFR Calc Estimated GFR (MDRD) Non-Af Amer 101 mL/min >60 [facility] Comment on above: Non- GFR Calc Serum or plasma calcium sriram urement (mass/volume)Ordered By: Carly Callejas on 11-06-2023 Calcium [Mass/Vol] 8.8 mg/dL 8.5-10.1 [facility] Serum or plasma creatinine m easurement (mass/volume)Ordered By: Carly Callejas on 11-06-2023 Creatinine [Mass/Vol] 0.77 mg/dL 0.55-1.02 [facility] Comment on above: The validity of the calculated GFR & GFRAA in patients over 70 years has not been determined. Clinical correlation is essential. Serum or plasma urea nitroge n measurement (mass/volume)Ordered By: Carly Callejas on 11-06-2023 Urea nitrogen [Mass/Vol] 14 mg/dL 7-18 [facility] Thin prep Papanicolaou smear with manual screeningOrdered By: Carly Callejas on 11-06-2023 Thin prep Papanicolaou smear with manual screening 7 5-15 [facility] Basophil percentageOrdered B y: Carly Callejas on 09-30-2023 Chloride [Moles/Vol] 106 mmol/L 98-107 [facility] Glucose [Mass/Vol] 94 mg/dL 74-106 [facility] Potassium [Moles/Vol] 4.0 mmol/L 3.5-5.1 [facility] Sodium [Moles/Vol] 139 mmol/L 136-145 [facility] Laboratory - Chemistry and C hemistry - challengeOrdered By: Carly Callejas on 09-30-2023 CO2 [Moles/Vol] 27.0 mmol/L 21.0-32.0 [facility] Urea nitrogen/Creatinine [Mass ratio] 15.6 mg/mg 10-20 [facility] No Panel InformationOrdered By: Carly Callejas on 09-30-2023 Estimated GFR (MDRD) Amer 135 mL/min >60 [facility] Comment on above: GFR Calc Estimated GFR (MDRD) Non-Af Amer 112 mL/min >60 [facility] Comment on above: Non- GFR Calc Vitamin D 25-Hydroxy 47.9 ng/mL [facility] Comment on above: Vitamin D 25(OH) Sta tus Range Deficiency <20 ng/mL (50nmol/L) Insufficiency 20 - 30 ng/mL (50 - 75 nmol/L) Sufficiency 30 - 100 ng/mL (75 - 250 nmol/L) Toxicity >100 ng/mL (>250 nmol/L) Serum or plasma calcium sriram urement (mass/volume)Ordered By: Carly Callejas on 09-30-2023 Calcium [Mass/Vol] 9.5 mg/dL 8.5-10.1 [facility] Serum or plasma creatinine m easurement (mass/volume)Ordered By: Carly Callejas on 09-30-2023 Creatinine [Mass/Vol] 0.70 mg/dL 0.55-1.02 [facility] Comment on above: The validity of the calculated GFR & GFRAA in patients over 70 years has not been determined. Clinical correlation is essential. Serum or plasma urea nitroge n measurement (mass/volume)Ordered By: Carly Callejas on 09-30-2023 Urea nitrogen [Mass/Vol] 11 mg/dL 7-18 [facility] Thin prep Papanicolaou smear with manual screeningOrdered By: Carly Callejas on 09-30-2023 Thin prep Papanicolaou smear with manual screening 6 5-15 [facility] Basophil percentageOrdered B y: Tim Lawrence on 09-15-2023 Basophil percentage < 1.0 mg/dL 0.55-1.02 [facility] No Panel InformationOrdered By: Tim Lawrence on 09-15-2023 Bedside Estimated GFR (eGFR) > 60.0000 mL/min >60 [facility] 24 hour urine 5-hydroxyindol eacetate measurement (mass/volume)Ordered By: Tim Lawrence on 09-12-2023 5-Hydroxyindoleacetate (24H U) [Mass/Vol] 1.6 mg/L Undefined [facility] Comment on above: This test was develo ped and its performance characteristicsdetermined by [employer]. It has not been cleared orapproved by the Food and Drug Administration. 24 hour urine 5-hydroxyindol eacetic acid (5-HIAA) measurement (mass/time)Ordered By: Tim Lawrence on 09-12-2023 5-Hydroxyindoleacetate (24H U) [Mass/Time] 3.3 mg/24 hr 0.0-14.9 [facility] Comment on above: Performed at: [address] [id number] Director: Zach Ferguson MD, Phone: [phone] Absolute lymphocyte countOrd ered By: Francis Cunningham on 09-12-2023 Lymphocytes Auto (Unsp spec) [#/Vol] 1.12 10*3/uL 0.83-4.51 [facility] Automated lymphocyte count a s percentage of total leukocytesOrdered By: Francis Cunningham on 09-12-2023 Lymphocytes/100 WBC Auto (Unsp spec) 19.4 % 19-41 [facility] Basophil percentageOrdered B y: Francis Cunningham on 09-12-2023 Basophils/100 WBC (Bld) 0.2 % 0-[address] [facility] Bilirubin [Mass/Vol] 0.50 mg/dL 0.20-1.00 [facility] Comment on above: For patients on eltr ombopag therapy, use of Dimension [place] TBIL is not recommended. Chloride [Moles/Vol] 108 mmol/L 98-107 [facility] Eosinophils/100 WBC (Bld) 0.0 % 0-5 [facility] Glucose [Mass/Vol] 91 mg/dL 74-106 [facility] Hemoglobin (Bld) [Mass/Vol] 12.9 g/dL 12.0-15.0 [facility] Monocytes/100 WBC (Bld) 6.1 % 0-[address] [facility] Neutrophils (Bld) [#/Vol] 4.3 10*3/uL 2.0-7.7 [facility] Neutrophils/100 WBC (Bld) 74.1 % 47-70 [facility] Potassium [Moles/Vol] 3.6 mmol/L 3.5-5.1 [facility] Protein [Mass/Vol] 6.8 g/dL 6.4-8.2 [facility] Sodium [Moles/Vol] 140 mmol/L 136-145 [facility] WBC (Bld) [#/Vol] 5.8 10*3/uL 4.4-11.0 [facility] Determination of erythrocyte mean corpuscular volume (MCV)Ordered By: Francis Cunningham on 09-12-2023 MCV (RBC) [Entitic vol] 87.1 fL 81-[address] [facility] Direct bilirubinOrdered By: Francis Cunningham on 09-12-2023 Bilirubin.direct [Mass/Vol] 0.13 mg/dL 0.00-0.30 [facility] Erythrocyte distribution wid th ratioOrdered By: Francis Cunningham on 09-12-2023 Erythrocyte distribution width (RBC) [Ratio] 11.8 % 11.6-14.6 [facility] Erythrocyte distribution wid th standard deviationOrdered By: Francis Cunningham on 09-12-2023 Erythrocyte distribution width (RBC) [Entitic vol] 37.7 fL 35.1-43.9 [facility] Hematocrit Auto (Bld) [Volum e fraction]Ordered By: Francis Cunningham on 09-12-2023 Hematocrit (Bld) [Volume fraction] 39.3 % 37-47 [facility] Immature granulocytes/100 WB C Auto (Bld)Ordered By: Francis Cunningham on 09-12-2023 Immature granulocytes/100 WBC (Bld) 0.200 % 0.0-0.9 [facility] Comment on above: IG% - Immature Granu locytes (promyelocytes, myelocytes and metamyelocytes) > 1% indicates that a LEFT SHIFT is Present. Laboratory - Chemistry and C hemistry - challengeOrdered By: Francis Cunningham on 09-12-2023 ALP [Catalytic activity/Vol] 43 U/L 45-117 [facility] ALT [Catalytic activity/Vol] 19 U/L 13-56 [facility] CO2 [Moles/Vol] 30.0 mmol/L 21.0-32.0 [facility] Globulin (S) [Mass/Vol] 2.8 g/dL 2.2-4.[address] [facility] Lipase [Catalytic activity/Vol] 23 U/L 13-75 [facility] Comment on above: Please note:LIPASE r evised reference range effective 22. New Lipase methodology. Expected to produce lower values than the previous assay method. NEW Reference Range: 13 - 75 U/L Urea nitrogen/Creatinine [Mass ratio] 14.1 mg/mg 10-20 [facility] Laboratory - Hematology and Cell countsOrdered By: Francis Cunningham on 09-12-2023 MCH (RBC) [Entitic mass] 28.6 pg 27.0-32.0 [facility] MCHC (RBC) [Mass/Vol] 32.8 g/dL 32-36 [facility] Nucleated RBC/100 WBC (Bld) [Ratio] 0 % 0-5 [facility] Platelet mean volume (Bld) [Entitic vol] 10.2 fL 6.2-12.0 [facility] Platelets (Bld) [#/Vol] 197 10*3/uL 150-450 [facility] No Panel InformationOrdered By: Francis Cunningham on 09-12-2023 Estimated Creatinine Clearance Calc 94.58 ml/min [facility] Estimated GFR (MDRD) Amer 133 mL/min >60 [facility] Comment on above: GFR Calc Estimated GFR (MDRD) Non-Af Amer 110 mL/min >60 [facility] Comment on above: Non- GFR Calc RBC Auto (Bld) [#/Vol]Ordere d By: Francis Cunningham on 09-12-2023 RBC (Bld) [#/Vol] 4.51 10*6/uL 4.2-5.4 [facility] Serum or plasma calcium sriram urement (mass/volume)Ordered By: Francis Cunningham on 09-12-2023 Calcium [Mass/Vol] 9.2 mg/dL 8.5-10.1 [facility] Serum or plasma creatinine m easurement (mass/volume)Ordered By: Francis Cunningham on 09-12-2023 Creatinine [Mass/Vol] 0.71 mg/dL 0.55-1.02 [facility] Comment on above: The validity of the calculated GFR & GFRAA in patients over 70 years has not been determined. Clinical correlation is essential. Serum or plasma urea nitroge n measurement (mass/volume)Ordered By: Francis Cunningham on 09-12-2023 Urea nitrogen [Mass/Vol] 10 mg/dL 7-18 [facility] Thin prep Papanicolaou smear with manual screeningOrdered By: Francis Cunningham on 09-12-2023 Thin prep Papanicolaou smear with manual screening 4.0 g/dL 3.2-5.0 [facility] Thin prep Papanicolaou smear with manual screening 19 U/L 15-37 [facility] Thin prep Papanicolaou smear with manual screening 2 5-15 [facility] Chocolate IgE serumOrdered B y: Tim Friend on 09-08-2023 Chocolate IgE Qn (S) <0.10 kU/L Class 0 [facility] Laboratory - Chemistry and C hemistry - challengeOrdered By: Tim Friend on 09-08-2023 Cobalamin (Vitamin B12) [Mass/Vol] 591 pg/mL 211-911 [facility] Laboratory - Miscellaneous t estsOrdered By: Tim Lawrence on 09-08-2023 Service comment (Unsp spec) [Interp] Comment . [facility] Comment on above: Levels of Specific I gE Class Description of Class ----- < 0.10 0 Negative 0.10 - 0.31 0/I Equivocal/Low 0.32 - 0.55 I Low 0.56 - 1.40 II Moderate 1.41 - 3.90 III High 3.91 - 19.00 IV Very High 19.01 - 100.00 V Very High >100.00 [facility] No Panel InformationOrdered By: Tim Lawrence on 09-08-2023 Folate 31.70 ng/mL 3.1-55.4 [facility] Comment on above: Slight Hemolysis, Re sult may be falsely increased. Mussel Allergen IgE Antibody <0.10 kU/L Class 0 [facility] Shrimp Allergen <0.10 kU/L Class 0 [facility] Serum beef IgE antibody assa y (units/volume)Ordered By: Tim Lawrence on 09-08-2023 Beef IgE Qn (S) <0.10 kU/L Class 0 [facility] Serum codfish IgE antibody a ssay (units/volume)Ordered By: Tim Lawrence on 09-08-2023 Codfish IgE Qn (S) <0.10 kU/L Class 0 [facility] Serum corn IgE antibody assa y (units/volume)Ordered By: Tim Lawrence on 09-08-2023 [place] IgE Qn (S) <0.10 kU/L Class 0 [facility] Serum cow milk IgE antibody assay (units/volume)Ordered By: Tim Lawrence on 09-08-2023 Cow milk IgE Qn (S) <0.10 kU/L Class 0 [facility] Serum or plasma gastrin sriram urement (mass/volume)Ordered By: Tim Lawrence on 09-08-2023 Gastrin [Mass/Vol] 1354 pg/mL 0-115 [facility] Comment on above: Results verified b y repeat testingSiemens Yi Ji Electrical Applianceulite 2000 Immunochemiluminometric assay (ICMA)Values obtained with different assay methods or kits cannotbe used interchangeably. Results cannot be interpreted asabsolute evidence of the presence or absence of malignantdisease. Serum parietal cell antibody assay (units/volume)Ordered By: Tim Lawrence on 09-08-2023 Parietal cell Ab Qn (S) 125.3 Units 0.0-20.0 [facility] Comment on above: Negative 0.0 - 20.0 Equivocal 20.1 - 24.9 Positive >24.9Parietal Cell Antibodies are found in 90% of patientswith pernicious anemia and 30% of first degreerelatives with pernicious anemia.Performed at: [facility] [employer] [id number] Director: Zach Ferguson MD, Phone: [phone] at: [address] [id number] Director: Pravin Pandya PhD, Phone: [phone] Serum peanut IgE antibody as say (units/volume)Ordered By: Tim Lawrence on 09-08-2023 Peanut IgE Qn (S) <0.10 kU/L Class 0 [facility] Serum pork IgE antibody assa y (units/volume)Ordered By: Tim Lawrence on 09-08-2023 Pork IgE Qn (S) <0.10 kU/L Class 0 [facility] Serum salmon IgE antibody as say (units/volume)Ordered By: Tim Lawrence on 09-08-2023 [place] IgE Qn (S) <0.10 kU/L Class 0 [facility] Serum soybean IgE antibody a ssay (units/volume)Ordered By: Tim Lawrence on 09-08-2023 Soybean IgE Qn (S) <0.10 kU/L Class 0 [facility] Serum tuna IgE antibody assa y (units/volume)Ordered By: Tim Lawrence on 09-08-2023 Tuna IgE Qn (S) <0.10 kU/L Class 0 [facility] Serum wheat IgE antibody ass ay (units/volume)Ordered By: Tim Lawrence on 09-08-2023 Wheat IgE Qn (S) <0.10 kU/L Class 0 [facility] Serum whole egg IgE antibody assay (units/volume)Ordered By: Tim Lawrence on 09-08-2023 Whole Egg IgE Qn (S) <0.10 kU/L Class 0 [facility] Comment on above: Performed at: [address] [id number] Director: Zach Ferguson MD, Phone: [phone] Aldosterone/renin activity r atioOrdered By: Tim Lawrence on 09-01-2023 Aldosterone/Renin (P) [Ratio] 1.0 0.0-30.0 [facility] Comment on above: Units: ng/dL per ng/ mL/hr Basophil percentageOrdered B y: Tim Lawrence on 09-01-2023 Basophil percentage 3.6 mg/dL 2.5-4.9 [facility] Basophil percentageOrdered B y: Carly Callejas on 09-01-2023 Chloride [Moles/Vol] 109 mmol/L 98-107 [facility] Glucose [Mass/Vol] 46 mg/dL 74-106 [facility] Comment on above: Glucose result less than 50 mg/dL suggests HYPOGLYCEMIA. Potassium [Moles/Vol] 3.4 mmol/L 3.5-5.1 [facility] Sodium [Moles/Vol] 141 mmol/L 136-145 [facility] Chocolate IgE serumOrdered B y: Tim Lawrence on 09-01-2023 Chocolate IgE Qn (S) <0.10 kU/L Class 0 [facility] Laboratory - Chemistry and C hemistry - challengeOrdered By: Carly Callejas on 09-01-2023 CO2 [Moles/Vol] 28.0 mmol/L 21.0-32.0 [facility] Magnesium [Mass/Vol] 2.3 mg/dL 1.6-2.6 [facility] Urea nitrogen/Creatinine [Mass ratio] 16.7 mg/mg 10-20 [facility] Laboratory - Miscellaneous t estsOrdered By: Tim Lawrence on 09-01-2023 Service comment (Unsp spec) [Interp] Comment . [facility] Comment on above: Levels of Specific I gE Class Description of Class ----- < 0.10 0 Negative 0.10 - 0.31 0/I Equivocal/Low 0.32 - 0.55 I Low 0.56 - 1.40 II Moderate 1.41 - 3.90 III High 3.91 - 19.00 IV Very High 19.01 - 100.00 V Very High >100.00 Very High No Panel InformationOrdered By: Tim Lawrence on 09-01-2023 Adrenocorticotropic Hormone 50.7 pg/mL 7.2-63.3 [facility] Comment on above: ACTH reference inter shoshana for samples collected between 7 and10 AM. Mussel Allergen IgE Antibody <0.10 kU/L Class 0 [facility] Shrimp Allergen <0.10 kU/L Class 0 [facility] No Panel InformationOrdered By: Carly Callejas on 09-01-2023 Estimated GFR (MDRD) Amer 132 mL/min >60 [facility] Comment on above: GFR Calc Estimated GFR (MDRD) Non-Af Amer 109 mL/min >60 [facility] Comment on above: Non- GFR Calc Plasma renin measurement (en zymatic activity/volume)Ordered By: Tim Lawrence on 09-01-2023 Renin (P) [Catalytic activity/Vol] 1.394 ng/mL/hr 0.167-5.380 [facility] Serum beef IgE antibody assa y (units/volume)Ordered By: Tim Lawrence on 09-01-2023 Beef IgE Qn (S) <0.10 kU/L Class 0 [facility] Serum codfish IgE antibody a ssay (units/volume)Ordered By: Tim Lawrence on 09-01-2023 Codfish IgE Qn (S) <0.10 kU/L Class 0 [facility] Serum corn IgE antibody assa y (units/volume)Ordered By: Tim Lawrence on 09-01-2023 [place] IgE Qn (S) <0.10 kU/L Class 0 [facility] Serum cow milk IgE antibody assay (units/volume)Ordered By: Tim Lawrence on 09-01-2023 Cow milk IgE Qn (S) <0.10 kU/L Class 0 [facility] Serum or plasma calcium sriram urement (mass/volume)Ordered By: Carly Callejas on 09-01-2023 Calcium [Mass/Vol] 9.0 mg/dL 8.5-10.1 [facility] Serum or plasma cortisol sandra surement (mass/volume)Ordered By: Tim Lawrence on 09-01-2023 Cortisol [Mass/Vol] 18.80 ug/dL 3.44-22.45 [facility] Comment on above: Adult (AM) 5.27 - 22 .45 ug/dL Adult (PM) 3.44 - 16.76 ug/dLPlease note revised CORTISOL reference range effective 2019. Serum or plasma creatinine m easurement (mass/volume)Ordered By: Carly Callejas on 09-01-2023 Creatinine [Mass/Vol] 0.72 mg/dL 0.55-1.02 [facility] Comment on above: The validity of the calculated GFR & GFRAA in patients over 70 years has not been determined. Clinical correlation is essential. Serum or plasma urea nitroge n measurement (mass/volume)Ordered By: Carly Callejas on 09-01-2023 Urea nitrogen [Mass/Vol] 12 mg/dL 7-18 [facility] Serum peanut IgE antibody as say (units/volume)Ordered By: Tim Lawrence on 09-01-2023 Peanut IgE Qn (S) <0.10 kU/L Class 0 [facility] Serum pork IgE antibody assa y (units/volume)Ordered By: Tim Lawrence on 09-01-2023 Pork IgE Qn (S) <0.10 kU/L Class 0 [facility] Serum salmon IgE antibody as say (units/volume)Ordered By: Tim Lawrence on 09-01-2023 [place] IgE Qn (S) <0.10 kU/L Class 0 [facility] Serum soybean IgE antibody a ssay (units/volume)Ordered By: Tim Lawrence on 09-01-2023 Soybean IgE Qn (S) <0.10 kU/L Class 0 [facility] Serum tuna IgE antibody assa y (units/volume)Ordered By: Tim Lawrence on 09-01-2023 Tuna IgE Qn (S) <0.10 kU/L Class 0 [facility] Serum wheat IgE antibody ass ay (units/volume)Ordered By: Tim Lawrence on 09-01-2023 Wheat IgE Qn (S) <0.10 kU/L Class 0 [facility] Serum whole egg IgE antibody assay (units/volume)Ordered By: Tim Lawernce on 09-01-2023 Whole Egg IgE Qn (S) <0.10 kU/L Class 0 [facility] Comment on above: Performed at: [facility] [address] [id number] Director: Zach Ferguson MD, Phone: [phone] Thin prep Papanicolaou smear with manual screeningOrdered By: Carly Callejas on 09-01-2023 Thin prep Papanicolaou smear with manual screening 4 5-15 [facility] Thin prep Papanicolaou smear with manual screeningOrdered By: Tim Lawrence on 09-01-2023 Thin prep Papanicolaou smear with manual screening 526.2 ng/mL 0.0-101.8 [facility] Comment on above: Chromogranin A perfo rmed by Baifendian/Rambus KRYPTORmethodologyValues obtained with different assay methods or kits cannotbe used interchangeably.Performed at: [facility] [address] [id number] Director: Zach Ferguson MD, Phone: [phone] at: - [facility] [id number] Director: Pravin Pandya PhD, Phone: [phone] Thin prep Papanicolaou smear with manual screening 1.4 ng/dL 0.0-30.0 [facility] Absolute lymphocyte countOrd ered By: ED PROVIDER on 08-27-2023 Lymphocytes Auto (Unsp spec) [#/Vol] 1.67 10*3/uL 0.83-4.51 [facility] Automated lymphocyte count a s percentage of total leukocytesOrdered By: ED PROVIDER on 08-27-2023 Lymphocytes/100 WBC Auto (Unsp spec) 18.5 % 19-41 [facility] Basophil percentageOrdered B y: Estiven Lynnwes on 08-27-2023 Basophil percentage 0 SEEN /hpf 0-5 [facility] Basophil percentageOrdered B y: ED PROVIDER on 08-27-2023 Basophils/100 WBC (Bld) 0.3 % 0-[address] [facility] Bilirubin [Mass/Vol] 0.30 mg/dL 0.20-1.00 [facility] Comment on above: For patients on eltr ombopag therapy, use of Dimension [place] TBIL is not recommended. Chloride [Moles/Vol] 110 mmol/L 98-107 [facility] Eosinophils/100 WBC (Bld) 0.0 % 0-5 [facility] Glucose [Mass/Vol] 123 mg/dL 74-106 [facility] Comment on above: Fasting Glucose resu lt from 100 to 125 mg/dL suggests IMPAIRED HOMEOSTASIS per A.D.A. criteria. Hemoglobin (Bld) [Mass/Vol] 13.9 g/dL 12.0-15.0 [facility] Monocytes/100 WBC (Bld) 5.5 % 0-10 [facility] Neutrophils (Bld) [#/Vol] 6.8 10*3/uL 2.0-7.7 [facility] Neutrophils/100 WBC (Bld) 75.5 % 47-70 [facility] Potassium [Moles/Vol] 3.1 mmol/L 3.5-5.1 [facility] Protein [Mass/Vol] 6.9 g/dL 6.4-8.2 [facility] Sodium [Moles/Vol] 141 mmol/L 136-145 [facility] WBC (Bld) [#/Vol] 9.0 10*3/uL 4.4-11.0 [facility] Bilirubin Test strip Ql (U)O rdered By: Estiven Baileywes on 08-27-2023 Bilirubin Ql (U) Negative Negative [facility] Determination of erythrocyte mean corpuscular volume (MCV)Ordered By: ED PROVIDER on 08-27-2023 MCV (RBC) [Entitic vol] 87.1 fL 81-[address] [facility] Erythrocyte distribution wid th ratioOrdered By: ED PROVIDER on 08-27-2023 Erythrocyte distribution width (RBC) [Ratio] 11.8 % 11.6-14.6 [facility] Erythrocyte distribution wid th standard deviationOrdered By: ED PROVIDER on 08-27-2023 Erythrocyte distribution width (RBC) [Entitic vol] 37.9 fL 35.1-43.9 [facility] Hematocrit Auto (Bld) [Volum e fraction]Ordered By: ED PROVIDER on 08-27-2023 Hematocrit (Bld) [Volume fraction] 42.0 % 37-47 [facility] Immature granulocytes/100 WB C Auto (Bld)Ordered By: ED PROVIDER on 08-27-2023 Immature granulocytes/100 WBC (Bld) 0.200 % 0.0-0.9 [facility] Comment on above: IG% - Immature Granu locytes (promyelocytes, myelocytes and metamyelocytes) > 1% indicates that a LEFT SHIFT is Present. Ketones Test strip Ql (U)Ord ered By: Estiven Mayorga on 08-27-2023 Ketones Ql (U) Negative Negative [facility] Laboratory - Chemistry and C hemistry - challengeOrdered By: ED PROVIDER on 08-27-2023 Albumin/Globulin [Mass ratio] 1.4 {ratio} 0.9-2.4 [facility] ALP [Catalytic activity/Vol] 46 U/L 45-117 [facility] ALT [Catalytic activity/Vol] 18 U/L 13-56 [facility] CO2 [Moles/Vol] 28.0 mmol/L 21.0-32.0 [facility] Globulin (S) [Mass/Vol] 2.9 g/dL 2.2-4.[address] [facility] Urea nitrogen/Creatinine [Mass ratio] 12.1 mg/mg 10-20 [facility] Laboratory - Chemistry and C hemistry - challengeOrdered By: Estiven Mayorga on 08-27-2023 Lipase [Catalytic activity/Vol] 38 U/L 13-75 [facility] Comment on above: Please note:LIPASE r evised reference range effective 22. New Lipase methodology. Expected to produce lower values than the previous assay method. NEW Reference Range: 13 - 75 U/L Laboratory - Hematology and Cell countsOrdered By: ED PROVIDER on 08-27-2023 MCH (RBC) [Entitic mass] 28.8 pg 27.0-32.0 [facility] MCHC (RBC) [Mass/Vol] 33.1 g/dL 32-36 [facility] Nucleated RBC/100 WBC (Bld) [Ratio] 0 % 0-5 [facility] Platelet mean volume (Bld) [Entitic vol] 9.6 fL 6.2-12.0 [facility] Platelets (Bld) [#/Vol] 205 10*3/uL 150-450 [facility] Mucus LM Ql (Urine sed)Order ed By: Estiven Mayorga on 08-27-2023 Mucus Ql (Urine sed) 0 SEEN /hpf [facility] Nitrite Test strip Ql (U)Ord ered By: Estiven Mayorga on 08-27-2023 Nitrite Ql (U) Negative Negative [facility] No Panel InformationOrdered By: Estiven Mayorga on 08-27-2023 Urine RBC 0-5 SEEN /hpf 0-5 [facility] No Panel InformationOrdered By: ED PROVIDER on 08-27-2023 Estimated Creatinine Clearance Calc 94.63 ml/min [facility] Estimated GFR (MDRD) Amer 126 mL/min >60 [facility] Comment on above: GFR Calc Estimated GFR (MDRD) Non-Af Amer 104 mL/min >60 [facility] Comment on above: Non- GFR Calc Protein Test strip Ql (U)Ord ered By: Estiven Mayorga on 08-27-2023 Protein Ql (U) 15 mg/dl Negative [facility] RBC Auto (Bld) [#/Vol]Ordere d By: ED PROVIDER on 08-27-2023 RBC (Bld) [#/Vol] 4.82 10*6/uL 4.2-5.4 [facility] Serum or plasma calcium sriram urement (mass/volume)Ordered By: ED PROVIDER on 08-27-2023 Calcium [Mass/Vol] 8.9 mg/dL 8.5-10.1 [facility] Serum or plasma choriogonado tropin detectionOrdered By: ED PROVIDER on 08-27-2023 HCG ( test) Ql Negative [facility] Serum or plasma creatinine m easurement (mass/volume)Ordered By: ED PROVIDER on 08-27-2023 Creatinine [Mass/Vol] 0.75 mg/dL 0.55-1.02 [facility] Comment on above: The validity of the calculated GFR & GFRAA in patients over 70 years has not been determined. Clinical correlation is essential. Serum or plasma urea nitroge n measurement (mass/volume)Ordered By: ED PROVIDER on 08-27-2023 Urea nitrogen [Mass/Vol] 9 mg/dL 7-18 [facility] Squamous epithelial cells de tection in urine sediment by light microscopyOrdered By: Estiven Mayorga on 08-27-2023 Epithelial cells.squamous LM Ql (Urine sed) 0 SEEN /hpf 5-10 [facility] Thin prep Papanicolaou smear with manual screeningOrdered By: ED PROVIDER on 08-27-2023 Thin prep Papanicolaou smear with manual screening 4.0 g/dL 3.2-5.0 [facility] Thin prep Papanicolaou smear with manual screening 19 U/L 15-37 [facility] Thin prep Papanicolaou smear with manual screening 3 5-15 [facility] Urine blood detectionOrdered By: Estiven Mayorga on 08-27-2023 RBC Ql (U) 250 /ul Negative [facility] Urine clarityOrdered By: Arelis Mayorga on 08-27-2023 Clarity (U) Clear Clear [facility] Urine color determinationOrd ered By: Estiven Mayorga on 08-27-2023 Color (U) Yellow Yellow [facility] Urine glucose detectionOrder ed By: Estiven Mayorga on 08-27-2023 Glucose Ql (U) Normal mg/dl Normal [facility] Urine leukocyte esterase det ection by dipstickOrdered By: Estiven Mayorga on 08-27-2023 Leukocyte esterase Test strip Ql (U) Negative Negative [facility] Urine pHOrdered By: Estiven grajeda on 08-27-2023 pH (U) 7.0 [pH] 5.0 - 8.0 [facility] Urine sediment bacteria coun t by microscopy (number/high power field)Ordered By: Estiven Mayorga on 08-27-2023 Bacteria LM.HPF (Urine sed) [#/Area] 0 /[HPF] None Seen [facility] Urine specific gravity measu rementOrdered By: Estiven Mayorga on 08-27-2023 Specific gravity (U) [Rel density] 1.010 1.002-1.030 [facility] Urine urobilinogen measureme ntOrdered By: Estiven Mayorga on 08-27-2023 Urobilinogen Ql (U) Normal mg/dl Normal [facility] Absolute lymphocyte countOrd ered By: Anthony Franco on 06-09-2023 Lymphocytes Auto (Unsp spec) [#/Vol] 1.14 10*3/uL 0.83-4.51 [facility] Basophil percentageOrdered B y: Anthony Franco on 06-09-2023 Basophil percentage 0 SEEN /hpf 0-5 [facility] Basophils/100 WBC (Bld) 0.2 % 0-[address] [facility] Chloride [Moles/Vol] 107 mmol/L 98-107 [facility] Eosinophils/100 WBC (Bld) 0.0 % 0-5 [facility] Glucose [Mass/Vol] 89 mg/dL 74-106 [facility] Neutrophils (Bld) [#/Vol] 3.7 10*3/uL 2.0-7.7 [facility] Neutrophils/100 WBC (Bld) 72.3 % 47-70 [facility] Potassium [Moles/Vol] 3.5 mmol/L 3.5-5.1 [facility] Sodium [Moles/Vol] 140 mmol/L 136-145 [facility] WBC (Bld) [#/Vol] 5.2 10*3/uL 4.4-11.0 [facility] Beta hCG serum qualOrdered B y: Anthony Franco on 06-09-2023 Beta HCG ( test) Ql Negative [facility] Bilirubin Test strip Ql (U)O rdered By: Anthony Franco on 06-09-2023 Bilirubin Ql (U) Negative Negative [facility] Blood erythrocytes count (nu mber/volume)Ordered By: Anthony Franco on 06-09-2023 RBC (Bld) [#/Vol] 4.82 10*6/uL 4.2-5.4 [facility] Blood hemoglobin measurement (mass/volume)Ordered By: Anthony Franco on 06-09-2023 Hemoglobin (Bld) [Mass/Vol] 13.9 g/dL 12.0-15.0 [facility] Blood lymphocytes/100 leukoc ytesOrdered By: Anthony Franco on 06-09-2023 Lymphocytes/100 WBC (Bld) 22.1 % 19-41 [facility] Blood monocytes/100 leukocyt esOrdered By: Anthony Franco on 06-09-2023 Monocytes/100 WBC (Bld) 5.2 % 0-[address] [facility] Blood platelet mean volumeOr dered By: Anthony Franco on 06-09-2023 Platelet mean volume (Bld) [Entitic vol] 9.9 fL 6.2-12.0 [facility] Determination of erythrocyte mean corpuscular volume (MCV)Ordered By: Anthony Franco on 06-09-2023 MCV (RBC) [Entitic vol] 89.6 fL 81-[address] [facility] Hematocrit Auto (Bld) [Volum e fraction]Ordered By: Anthony Franco on 06-09-2023 Hematocrit (Bld) [Volume fraction] 43.2 % 37-47 [facility] Influenza virus A and B and SARS-CoV-2 (COVID-19) Ag panel - Upper respiratory specimOrdered By: Anthony Franco on 06-09-2023 SARS-CoV-2 (COVID-19) RNA MAMIE+probe Ql (Resp) [facility] Ketones Test strip Ql (U)Ord ered By: Anthony Franco on 06-09-2023 Ketones Ql (U) Negative Negative [facility] Laboratory - Chemistry and C hemistry - challengeOrdered By: Anthony Franco on 06-09-2023 CO2 [Moles/Vol] 29.0 mmol/L 21.0-32.0 [facility] Urea nitrogen/Creatinine [Mass ratio] 10.3 mg/mg 10-20 [facility] Laboratory - Hematology and Cell countsOrdered By: Anthony Franco on 06-09-2023 Erythrocyte distribution width (RBC) [Entitic vol] 38.3 fL 35.1-43.9 [facility] Erythrocyte distribution width (RBC) [Ratio] 11.8 % 11.6-14.6 [facility] Immature granulocytes/100 WBC (Bld) 0.200 % 0.0-0.9 [facility] Comment on above: IG% - Immature Granu locytes (promyelocytes, myelocytes and metamyelocytes) > 1% indicates that a LEFT SHIFT is Present. MCH (RBC) [Entitic mass] 28.8 pg 27.0-32.0 [facility] Nucleated RBC/100 WBC (Bld) [Ratio] 0 % 0-5 [facility] MCHC Auto (RBC) [Mass/Vol]Or dered By: Anthony Franco on 06-09-2023 MCHC (RBC) [Mass/Vol] 32.2 g/dL 32-36 [facility] Mucus LM Ql (Urine sed)Order ed By: Anthony Franco on 06-09-2023 Mucus Ql (Urine sed) 0 SEEN /hpf [facility] Nitrite Test strip Ql (U)Ord ered By: Anthony Franco on 06-09-2023 Nitrite Ql (U) Negative Negative [facility] No Panel InformationOrdered By: Anthony Franco on 06-09-2023 Estimated Creatinine Clearance Calc 80.65 ml/min [facility] Estimated GFR (MDRD) Amer 105 mL/min >60 [facility] Comment on above: GFR Calc Estimated GFR (MDRD) Non-Af Amer 87 mL/min >60 [facility] Comment on above: Non- GFR Calc Troponin I High Sensitivity < 3 pg/mL 3.0-54.0 [facility] Comment on above: Please Note: New Lesvia t Units and Gender Specific Reference Ranges. For more information see Policy Stat Procedure [place] High Sensitivity Troponin (TNIH) and attachments. Platelets bldOrdered By: Shayna Franco on 06-09-2023 Platelets (Bld) [#/Vol] 188 10*3/uL 150-450 [facility] Protein Test strip Ql (U)Ord ered By: Anthony Franco on 06-09-2023 Protein Ql (U) Negative Negative [facility] Serum or plasma calcium sriram urement (mass/volume)Ordered By: Anthony Franco on 06-09-2023 Calcium [Mass/Vol] 9.3 mg/dL 8.5-10.1 [facility] Serum or plasma creatinine m easurement (mass/volume)Ordered By: Anthony Franco on 06-09-2023 Creatinine [Mass/Vol] 0.88 mg/dL 0.55-1.02 [facility] Comment on above: The validity of the calculated GFR & GFRAA in patients over 70 years has not been determined. Clinical correlation is essential. Serum or plasma urea nitroge n measurement (mass/volume)Ordered By: Anthony Franco on 06-09-2023 Urea nitrogen [Mass/Vol] 9 mg/dL 7-18 [facility] Squamous epithelial cells de tection in urine sediment by light microscopyOrdered By: Anthony Franco on 06-09-2023 Epithelial cells.squamous LM Ql (Urine sed) 0-5 SEEN /hpf 5-10 [facility] Thin prep Papanicolaou smear with manual screeningOrdered By: Anthony Franco on 06-09-2023 Thin prep Papanicolaou smear with manual screening 4 5-15 [facility] Upper respiratory specimen i nfluenza A virus, influenza B virus, and severe acute resOrdered By: Anthony Franco on 06-09-2023 Upper respiratory specimen influenza A virus, influenza B virus, and severe acute res [facility] Upper respiratory specimen influenza A virus, influenza B virus, and severe acute res [facility] Urine blood detectionOrdered By: Anthony Franco on 06-09-2023 RBC Ql (U) Negative Negative [facility] RBC Ql (U) 0 SEEN /hpf 0-5 [facility] Urine clarityOrdered By: Shayna Franco on 06-09-2023 Clarity (U) Clear Clear [facility] Urine color determinationOrd ered By: Anthony Franco on 06-09-2023 Color (U) Straw Yellow [facility] Urine glucose detectionOrder ed By: Anthony Franco on 06-09-2023 Glucose Ql (U) Normal mg/dl Normal [facility] Urine leukocyte esterase det ection by dipstickOrdered By: Anthony Franco on 06-09-2023 Leukocyte esterase Test strip Ql (U) Negative Negative [facility] Urine pHOrdered By: Anthony villanueva on 06-09-2023 pH (U) 8.0 [pH] 5.0 - 8.0 [facility] Urine sediment bacteria coun t by microscopy (number/high power field)Ordered By: Anthony Franco on 06-09-2023 Bacteria LM.HPF (Urine sed) [#/Area] 0 /[HPF] None Seen [facility] Urine specific gravity measu rementOrdered By: Anthony Franco on 06-09-2023 Specific gravity (U) [Rel density] 1.010 1.002-1.030 [facility] Urobilinogen Auto test strip Ql (U)Ordered By: Anthony Franco on 06-09-2023 Urobilinogen Ql (U) Normal mg/dl Normal [facility] Absolute lymphocyte countOrd ered By: Tim Lawrence on 04-25-2023 Lymphocytes Auto (Unsp spec) [#/Vol] 1.25 10*3/uL 0.83-4.51 [facility] Albumin Elph [Mass/Vol]Order ed By: Tim Lawrence on 04-25-2023 Albumin [Mass/Vol] 4.0 g/dL 2.9-4.4 [facility] Atypical perinuclear antineu trophil cytoplasmic antibodies measurementOrdered By: Tim Lawrence on 04-25-2023 Neutrophil cytoplasmic Ab.perinuclear.atypical IF (S) [Titer] <1:20 titer Neg:<1:20 [facility] Comment on above: The atypical pANCA p attern has been observed in asignificant percentage of patients with ulcerative colitis,primary sclerosing cholangitis and autoimmune hepatitis. Basophil percentageOrdered B y: Tim Lawrence on 04-25-2023 Amylase [Catalytic activity/Vol] 70 U/L 25-115 [facility] Basophil percentage < 0.2 AI 0.0-0.9 [facility] Basophil percentage 0.4 AI 0.0-0.9 [facility] Basophils/100 WBC (Bld) 0.4 % 0-[address] [facility] Eosinophils/100 WBC (Bld) 0.0 % 0-5 [facility] LDH [Catalytic activity/Vol] 152 U/L 84-246 [facility] Neutrophils (Bld) [#/Vol] 5.2 10*3/uL 2.0-7.7 [facility] Neutrophils/100 WBC (Bld) 74.2 % 47-70 [facility] WBC (Bld) [#/Vol] 7.0 10*3/uL 4.4-11.0 [facility] Blood erythrocytes count (nu mber/volume)Ordered By: Tim Lawrence on 04-25-2023 RBC (Bld) [#/Vol] 4.63 10*6/uL 4.2-5.4 [facility] Blood hemoglobin measurement (mass/volume)Ordered By: Tim Lawrence on 04-25-2023 Hemoglobin (Bld) [Mass/Vol] 13.5 g/dL 12.0-15.0 [facility] [facility] Blood lymphocytes/100 leukoc ytesOrdered By: Tim Lawrence on 04-25-2023 Lymphocytes/100 WBC (Bld) 18.0 % 19-41 [facility] Blood monocytes/100 leukocyt esOrdered By: Tim Lawrence on 04-25-2023 Monocytes/100 WBC (Bld) 7.3 % 0-10 [facility] Blood platelet mean volumeOr dered By: Tim Lawrence on 04-25-2023 Platelet mean volume (Bld) [Entitic vol] 10.0 fL 6.2-12.0 [facility] Determination of erythrocyte mean corpuscular volume (MCV)Ordered By: Tim Lawrence on 04-25-2023 MCV (RBC) [Entitic vol] 88.6 fL 81-[address] [facility] Erythrocyte sedimentation ra teOrdered By: Tim Lawrence on 04-25-2023 ESR (Bld) [Velocity] mm/h 0-30 [facility] Hematocrit Auto (Bld) [Volum e fraction]Ordered By: Tim Lawrence on 04-25-2023 Hematocrit (Bld) [Volume fraction] 41.0 % 37-47 [facility] Interpretation of serum or p lasma protein pattern by immunofixation (narrative resultOrdered By: Tim Lawrence on 04-25-2023 Protein Fractions Immunofixation Marbin [Interp] See comment [facility] Comment on above: NOT OBSERVED Laboratory - Chemistry and C hemistry - challengeOrdered By: Tim Lawrence on 04-25-2023 Cobalamin (Vitamin B12) [Mass/Vol] 929 pg/mL 211-911 [facility] Lipase [Catalytic activity/Vol] 33 U/L 13-75 [facility] Comment on above: Please note:LIPASE r evised reference range effective 22. New Lipase methodology. Expected to produce lower values than the previous assay method. NEW Reference Range: 13 - 75 U/L Laboratory - Hematology and Cell countsOrdered By: Tim Lawrence on 04-25-2023 Erythrocyte distribution width (RBC) [Entitic vol] 39.5 fL 35.1-43.9 [facility] Erythrocyte distribution width (RBC) [Ratio] 12.3 % 11.6-14.6 [facility] Immature granulocytes/100 WBC (Bld) 0.100 % 0.0-0.9 [facility] Comment on above: IG% - Immature Granu locytes (promyelocytes, myelocytes and metamyelocytes) > 1% indicates that a LEFT SHIFT is Present. MCH (RBC) [Entitic mass] 29.2 pg 27.0-32.0 [facility] Nucleated RBC/100 WBC (Bld) [Ratio] 0 % 0-5 [facility] MCHC Auto (RBC) [Mass/Vol]Or dered By: Tim Lawrence on 04-25-2023 MCHC (RBC) [Mass/Vol] 32.9 g/dL 32-36 [facility] No Panel InformationOrdered By: Tim Lawrence on 04-25-2023 Addendum Document Comment . [facility] Comment on above: Protein electrophore sis scan will follow via computer,mail, or medicare sales representative delivery. Centromere B Antibody <0.2 AI 0.0-0.9 [facility] Endomysial IgA Antibody Negative Negative [facility] Free Triiodothyronine (T3) pg/dL 2.7 pg/mL 2.18-3.98 [facility] Immunoglobulin E 8 IU/mL 6-495 [facility] Comment on above: Performed at: [address] [id number] Director: Pravin Pandya PhD, Phone: [phone] at: [facility] - [facility] [address] [id number] Director: Zach Ferguson MD, Phone: [phone] [employer]OL LAPPER HAND Antibody 1.0 AI 0.0-0.9 [facility] Thyroid Stimulating Hormone (TSH) 1.42 uIU/mL 0.358-3.74 [facility] Platelets bldOrdered By: Orlando Lawrence on 04-25-2023 Platelets (Bld) [#/Vol] 212 10*3/uL 150-450 [facility] Serum DNA double strand anti body assay (units/volume)Ordered By: Tim Lawrence on 04-25-2023 DNA double strand Ab Qn (S) 1 [IU]/mL 0-9 [facility] Comment on above: Negative <5 Equivoca l 5 - 9 Positive >9 Serum Barbie-1 antibody assay (u nits/volume)Ordered By: Tim Lawrence on 04-25-2023 Barbie-1 extractable nuclear Ab Qn (S) <0.2 AI 0.0-0.9 [facility] Serum Scl-70 extractable nuc lear antibody assay (units/volume)Ordered By: Tim Lawrence on 04-25-2023 SCL-70 extractable nuclear Ab Qn (S) <0.2 AI 0.0-0.9 [facility] Serum Alvarado extractable nucl ear antibody detectionOrdered By: Tim Lawrence on 04-25-2023 Alvarado extractable nuclear Ab Ql (S) <0.2 AI 0.0-0.9 [facility] Serum [id number] measu rement by electrophoresisOrdered By: Tim Lawrence on 04-25-2023 Alpha 1 globulin Elph [Mass/Vol] 0.3 g/dL 0.0-0.4 [facility] Alpha 1 globulin Elph [Mass/Vol] 0.7 g/dL 0.4-1.0 [facility] Serum classic neutrophil cyt oplasmic antibody assay (units/volume)Ordered By: Tim Lawrence on 04-25-2023 Neutrophil cytoplasmic Ab.classic Qn (S) <1:20 titer Neg:<1:20 [facility] Serum globulin measurement ( mass/volume)Ordered By: Tim Lawrence on 04-25-2023 Globulin (S) [Mass/Vol] 2.6 g/dL 2.2-3.9 [facility] Serum or plasma C reactive p rotein measurement (mass/volume)Ordered By: Tim Lawrence on 04-25-2023 CRP [Mass/Vol] mg/L 0.0-3.0 [facility] Comment on above: C-Reactive Protein ( CRP) provides useful information for thediagnosis, therapy and monitoring of inflammatory processesand associated diseases. For the evaluation of Relative Riskfor Cardiovascular Disease, a High Sensitivity CRP (HSCRP)should be ordered. Serum or plasma IgA measurem ent (mass/volume)Ordered By: Tim Lawrence on 04-25-2023 IgA [Mass/Vol] 108 mg/dL 87-352 [facility] Serum or plasma IgG measurem ent (mass/volume)Ordered By: Timdeja Lawrence on 04-25-2023 IgG [Mass/Vol] 742 mg/dL 586-1602 [facility] Serum or plasma IgM measurem ent (mass/volume)Ordered By: Tim Lawrence on 04-25-2023 IgM [Mass/Vol] 121 mg/dL 26-217 [facility] Serum or plasma beta globuli n measurement by electrophoresis (mass/volume)Ordered By: Tim Lawrence on 04-25-2023 Beta globulin Elph [Mass/Vol] 0.9 g/dL 0.7-1.3 [facility] Serum or plasma folate measu rement (mass/volume)Ordered By: Tim Lawrence on 04-25-2023 Folate [Mass/Vol] 37.50 ng/mL 3.1-55.4 [facility] Serum or plasma gamma globul in measurement by electrophoresis (mass/volume)Ordered By: Tim Lawrence on 04-25-2023 Gamma globulin Elph [Mass/Vol] 0.8 g/dL 0.4-1.8 [facility] Serum or plasma gastrin sriram urement (mass/volume)Ordered By: Tim Lawrence on 04-25-2023 Gastrin [Mass/Vol] 433 pg/mL 0-115 [facility] Comment on above: Siemens Yi Ji Electrical Applianceulite 200 0 Immunochemiluminometric assay (ICMA)Values obtained with different assay methods or kits cannotbe used interchangeably. Results cannot be interpreted asabsolute evidence of the presence or absence of malignantdisease. Serum or plasma immunoelectr ophoresis interpretation (nominal result)Ordered By: Tim Lawrence on 04-25-2023 Interpretation IEP [Interp] Comment . [facility] Comment on above: No monoclonality det ected. Serum perinuclear neutrophil cytoplasmic antibody titer by immunofluorescenceOrdered By: Tim Lawrence on 04-25-2023 Neutrophil cytoplasmic Ab.perinuclear IF (S) [Titer] <1:20 titer Neg:<1:20 [facility] Comment on above: The presence of posi tive fluorescence exhibiting P-ANCA orC-ANCA patterns alone is not specific for the diagnosis ofWegener's Granulomatosis (WG) or microscopic polyangiitis.Decisions about treatment should not be based solely onANCA IFA results. The International ANCA Group Consensusrecommends follow up testing of positive sera with both PA-3 and MPO-ANCA enzyme immunoassays. As many as 5% serumsamples are positive only by EIA. Ref. AM J Clin Fsmhlz5142;111:507-513. Serum tissue transglutaminas e IgA antibody assay (units/volume)Ordered By: Tim Lawrence on 04-25-2023 tTG IgA Qn (S) <2 U/mL 0-3 [facility] Comment on above: Negative 0 - 3 Weak Positive 4 - 10 Positive >10 Tissue Transglutaminase (tTG) has been identified as the endomysial antigen. Studies have demonstr- ated that endomysial IgA antibodies have over 99% specificity for gluten sensitive enteropathy. Thin prep Papanicolaou smear with manual screeningOrdered By: Tim Lawrence on 04-25-2023 Thin prep Papanicolaou smear with manual screening 1.6 0.7-1.7 [facility] Total protein bloodOrdered B y: Tim Lawrence on 04-25-2023 Protein [Mass/Vol] 6.6 g/dL 6.0-8.5 [facility] Laboratory - Microbiology an d Antimicrobial susceptibilityon 03-27-2023 SARS-CoV-2 (COVID-19) RNA MAMIE+probe Ql (Unsp spec) Not detected [facility] No Panel Informationon 03-27 Influenza Types A,B Rapid (Clinic) Not detected [facility] Comment on above: POC BRITNI FLU previou maria eugenia reported as ONLY FLU B DETECTED COVID-19 virus antigen assay Ordered By: Jasper Pruett on 03-23-2023 SARS-CoV-2 (COVID-19) Ag IA.rapid Ql (Resp) [facility] SARS-CoV-2 (COVID-19) Ag IA.rapid Ql (Resp) [facility] CASE MANAGEMon 11-05-2022 CASE MANAGEM HNO ID: [id number] Author: Areli Sena RN Service: ? Author Type: Registered Nurse Type: Care Mgt Progress Note Filed: 11/05/2022 12:04 PM Note Text: CARE MANAGEMENT DISCHARGE NOTE SERVICE DATE: November 05, 2022 SERVICE TIME: 12:03 PM Admission Date: 10/31/2022 LOS: 2 days Discharge Arrangement Discharge Arrangement: Home with Self Care Services Arranged NONE Provider Name:Eileen Nair DO Caregiver Assessment Caregiver is ready, willing and able to meet the patient's needs as recommended by the inter-professional team: No Caregiver needed Transportation Arrangements Transportation Arrangements: Car Date of Trip: 11/05/22 Destination: home Handoff Communication: Handoff to: Primary Care Physician Primary Care Physician Name/Phone: Eileen Nair DO Additional Information: Discharge Information Row Name ED to Hosp-Admission (Current) from 10/31/2022 in [facility] Medical Follow-Up Appointment Provider Name PCP: Eileen Nair DO - Patient will dc home with no skilled needs. Patient will follow up with medical team as directed. Family to transport on DC SIGNATURE: Areli Sena RN PATIENT NAME: Mikayla Romeron DATE: November 05, 2022 TIME: 12:03 PM CONTACT #: [phone] Normal [facility] CNDSon 11-05-2022 CNDS HNO ID: [id number] Author: Mary Muhammad MD Service: Hospital Medicine Author Type: Physician Type: Discharge Summary Filed: 11/05/2022 3:58 PM Note Text: DISCHARGE SUMMARY PATIENT NAME: Mikayla J Hill Code Status: Not on file Highest Readmission Risk Score: 10 The 30 day readmissions risk score is derived from an internally validated risk model which evaluates patient level characteristics, utilization history, medication orders and lab results up until the day of discharge. Patients with a score of 40 or above are considered highest risk for readmission. Specific patient level drivers will be listed at the bottom of the summary. Admission Information Admission Information ADMIT DATE: 10/31/2022 DISCHARGE DATE: 11/05/2022 MY DOCTORS AND MEDICAL TEAM: My Main Hospital Doctor: Mary Muhammad MD Primary Care Provider: Eileen Nair DO My Medical Team Members: Treatment Team: Attending Provider: Mary Muhammad MD Consulting: Kristina Franklin MD Primary Service: [facility] MY CONDITION AT DISCHARGE: Stable REASON I WAS IN THE HOSPITAL: Nausea, vomiting, abdominal pain SUMMARY OF WHAT HAPPENED WHILE I WAS IN THE HOSPITAL: You presented to the hospital for evaluation of nausea, vomiting, abdominal cramps and constipation. You were found to have abnormal liver enzymes possibly secondary to Tylenol use, which improved with conservative management. You were started on laxation therapy and GI was consulted. Imaging was concerning for hemangioma of the liver. EGD was performed and showed mild gastritis and hiatal hernia. Viral serologies were ordered by GI. Your constipation resolved and GI recommended outpatient follow-up with liver MRI and viral serologies. OTHER PROBLEMS/DIAGNOSIS: Principal Problem (Resolved): RUQ pain Active Problems: Narcolepsy without cataplexy GERD (gastroesophageal reflux disease) Mild intermittent asthma without complication POTS (postural orthostatic tachycardia syndrome) Epilepsy (HCC) Cyst of right ovary Resolved Problems: Elevated transaminase level Other constipation OPERATIONS PERFORMED WHILE IN THE HOSPITAL: None IMPORTANT TEST/PROCEDURES: EGD with biopsy TEST RESULTS NOT AVAILABLE AT THIS TIME: Viral serologies, biopsy results Discharge Disposition Discharge Disposition: Home With Self Care Activity When You Leave the Hospital Resume pre-hospital activity Diet Instructions Resume your pre-hospital diet For Pain When You Leave the Hospital Use ibuprofen (Motrin, Advil) as recommended on the bottle Call Your Doctor If For the following: Nausea, vomiting, abdominal pain Follow Up Appointments Follow-Up Appointment With: Gastroenterology When: In 4 weeks Additional Provider to Provider Information: 22-year-old female with a past medical history of asthma, epilepsy, narcolepsy with cataplexy, GERD, migraines, POTS who presented to the ER on 10/31/2022 for evaluation of nausea, vomiting, abdominal discomfort. Had undergone hammertoe surgery on the right lower extremity on 10/25/2022 and had been taking Tylenol, tramadol postoperatively. Subsequently patient developed constipation which progressively worsened with associated nausea and vomiting. Patient was admitted to our service and underwent right upper quadrant ultrasound which showed findings concerning for hemangioma. Patient was seen by gastroenterology and was started on laxation therapy with subsequent resolution of constipation. Patient's diet was advanced as tolerated. Patient underwent EGD which showed gastritis, Z-line, small hiatal hernia. Biopsy to be followed up as an outpatient. GI recommended continuation of PPI and MiraLAX therapy. Recommended MRI of the liver and viral serologies to be followed up as an outpatient. Treatment Team: Consulting: Kristina Franklin MD Primary Service: [place] [address] Transitions of Care Critical Issues: SPECIALIST FOLLOW-UP: Gastroenterology [place] MEDICATION CHANGES: MiraLAX, Protonix LABS AND PROCEDURES PENDING AT DISCHARGE: Test Results Not Yet Available from This Hospitalization: Please Review at Your Follow Up Appointment Order Current Status SURGICAL PATHOLOGY In process FOLLOW-UP APPOINTMENTS ALREADY SCHEDULED WITH A [facility] PROVIDER: Future Appointments Date Time Provider Department Center 11/06/2022 9:15 AM Clifford Valenzuela DPM [id number] [facility] POB 11/20/2022 9:15 AM Eileen Nair DO [facility] 12/03/2022 3:30 PM Zoran Julio APRN.[facility] Discharge Information Row Name ED to Hosp-Admission (Discharged) from 10/31/2022 in [facility] Medical Follow-Up Appointment Provider Name PCP: Eileen Nair DO - ALLERGIES Allergen Reactions Compazine [Prochlor* Intolerance Restlessness, agitation Hydrocodone-Acetami* Swelling Latex Swelling Omnicef [Cefdinir] Swelling Versed [Midazolam H* Mental Status Change Pulli (more content not included)... Normal [facility] CONSULT PROGon 11-05-2022 CONSULT PROG HNO ID: [id number] Author: Rupert Muñoz MD Service: Gastroenterology Author Type: Physician Type: Consult Progress Note Filed: 11/05/2022 4:43 PM Note Text: GASTROENTEROLOGY CONSULT PROGRESS NOTE Patient Name: Mikayla Blunt SERVICE DATE: November 05, 2022 SERVICE TIME: 10:40 AM ASSESSMENT: Gastritis Right upper quadrant pain, nausea and vomiting- resolved Constipation- improved with bowel regimen Status post recent hammertoe surgery, requiring the use of pain meds , likely the cause of above . Abnormal liver enzymes, most likely related to drug-induced liver injury- improved 4 cm liver lesion most likely hemangioma PLAN: Change to gluten free diet Protonix 40 mg once daily Miralax 17 g po daily Plan outpatient liver MRI F/U EGD pathology Stable for discharge from GI standpoint. F/U in our office in 2 weeks Patient not seen, Discussed with mid level provider. [place] findings confirmed. Plan as outlined. Patient was discharged Rupert Muñoz MD November 05, 2022 4:42 PM ___ INTERVAL HPI: Feels much better today. EGD findings reviewed. Reports mild epigastric discomfort. Passing looser stools with Miralax. Tolerating diet but states she typically does not eat much. No nausea or vomiting. States is to be discharged today. Does not follow with GI. States she was never offically diagnosed with Celiac but can't tolerate gluten thus follows a GF diet. PHYSICAL EXAM: Patient Vitals for the past 24 hrs: BP Temp Temp src Pulse Resp SpO2 11/05/22 0737 107/66 36.6 ?C (97.9 ?F) Oral 87 18 97 % 11/04/22 2354 97/54 37 ?C (98.6 ?F) Oral 82 18 99 % 11/04/22 2136 126/78 -- -- -- -- -- 11/04/22 1614 105/68 36.8 ?C (98.2 ?F) Oral 93 18 100 % 11/04/22 1331 123/79 36.7 ?C (98.1 ?F) Oral 96 18 100 % GENERAL: Alert and oriented x 3. Appears comfortable. NAD HEENT: No pallor. No scleral icterus LUNGS: Clear to auscultation anteriorly CARDIAC: RRR ABDOMEN: Soft. Non distended. Localized minimal epigastric tenderness,. Bowel sounds normal. No guarding or rebound tenderness. EXTREMITIES: No edema to [place] lower extremities LABS: CBC, Coags, BMP, Mg, Phos Recent Labs 11/05/2242011/04/2243811/03/22 1008 NA 139 143 140 K 3.9 3.7 4.0 CHLOR 104 107* 105 CO2 28 27 25 BUN 4* 6* 6* CREAT 0.75 0.81 0.74 GLUC 101* 96 99 CA 9.3 9.1 9.3 Liver Function, Amylase, AND Lipase Recent Labs 11/05/2242011/04/22438 TPROT 6.2* 6.1* ALB 4.1 4.2 ALT 44* 58* AST 15 18 ALKPHOS 73 77 TBILI 0.4 0.4 MEDICATIONS: Current Facility-Administered Medications Medication Dose Route Frequency [...] 30 mL ORAL q 6 H PRN Latest Reference Range AND Units 04/10/20 15:35 Bilirubin, Total 0.2 - 1.3 mg/dL 0.2 Alkaline Phosphatase 45 - 87 U/L 56 ALT 7 - 38 U/L 12 AST 13 - 35 U/L 20 MISC LABS Latest Reference Range AND Units 10/30/22 20:54 Lactate 0.5 - 2.2 mmol/L 1.0 Latest Reference Range AND Units 10/30/22 20:54 Beta HCG, Quantitative For ED Use <5.0 mIU/mL <0.6 Component Latest Ref Rng AND Units 10/31/2022 11/01/2022 HSV IgG 1 Qualitative Negative Negative HSV IgG 2 Qualitative Negative Negative d Dimer <500 ng/mL FEU 200 EBV VCA IgM, Qual Negative Negative CMV IgM, Qual Negative Negative RADIOLOGY 10/30/22 CT A/P Liver: There is a 2.8 x 4.4 [...] Tissues: No significant finding. Lower thorax: Unremarkable. IMPRESSION: 3 cm lesion with crenulated enhancing border arising from the right ovary. This likely represents a corpus luteal cyst. 10/31/22 RUQ US IMPRESSION: 1. No evidence of cholecystitis 2. 4.0 cm lesion in the region of the caudate lobe, previously (more content not included)... Normal [facility] Comprehensive metabolic 2000 panelon 11-05-2022 Albumin [Mass/Vol] 4.1 g/dL Normal 3.9-4.9 [facility] Comment on above: Order Comment: Speci men Type: BLOOD SPECIMENOrdering Facility: [facility] Address: [address] [id number] Performed By: #### 2 4323-8 ####HESSEL LABORATORYCLIA [id number] [address] STATES OF [facility] ALP [Catalytic activity/Vol] 73 U/L Normal 34-123 [facility] Comment on above: Order Comment: Speci men Type: BLOOD SPECIMENOrdering Facility: [facility] Address: [address] [address] Performed By: #### 2 4323-8 ####IVEY LABORATORYCLIA [id number] [place] [address] [place] ALT [Catalytic activity/Vol] 44 U/L High 7-38 [facility] Comment on above: Order Comment: Speci men Type: BLOOD SPECIMENOrdering Facility: [facility] Address: [address] [address] Performed By: #### 2 4323-8 ####IVEY LABORATORYCLIA [id number] [place] [address] [facility] Anion gap [Moles/Vol] 7 mmol/L Low 9-18 [facility] Comment on above: Order Comment: Speci men Type: BLOOD SPECIMENOrdering Facility: [facility] Address: [address] [place] [address] Performed By: #### 2 4323-8 ####IVEY LABORATORYCLIA [id number] [address] [place] AST [Catalytic activity/Vol] 15 U/L Normal 13-35 [facility] Comment on above: Order Comment: Speci men Type: BLOOD SPECIMENOrdering Facility: [facility] Address: [address] [place] [address] Performed By: #### 2 4323-8 ####IVEY LABORATORYCLIA [id number] [address] [place] Bilirubin [Mass/Vol] 0.4 mg/dL Normal 0.2-1.3 [facility] Comment on above: Order Comment: Speci men Type: BLOOD SPECIMENOrdering Facility: [facility] Address: [address] [address] Performed By: #### 2 4323-8 ####IVEY LABORATORYCLIA [id number] [address] Calcium [Mass/Vol] 9.3 mg/dL Normal 8.5-10.2 [facility] Comment on above: Order Comment: Speci men Type: BLOOD SPECIMENOrdering Facility: [facility] Address: [address] [address] Performed By: #### 2 4323-8 ####IVEY LABORATORYCLIA [id number] [address] [place] Chloride [Moles/Vol] 104 mmol/L Normal 97-105 [facility] Comment on above: Order Comment: Speci men Type: BLOOD SPECIMENOrdering Facility: [facility] Address: [address] [address] Performed By: #### 2 4323-8 ####IVEY LABORATORYCLIA [id number] [place] [address] [place] CO2 [Moles/Vol] 28 mmol/L Normal 22-30 [facility] Comment on above: Order Comment: Speci men Type: BLOOD SPECIMENOrdering Facility: [facility] Address: [address] [place] [address] Performed By: #### 2 4323-8 ####IVEY LABORATORYCLIA [id number] [address] [place] Creatinine [Mass/Vol] 0.75 mg/dL Normal 0.58-0.96 [facility] Comment on above: Order Comment: Speci men Type: BLOOD SPECIMENOrdering Facility: [facility] Address: [address] [place] [address] Performed By: #### 2 4323-8 ####IVEY LABORATORYCLIA [id number] [address] ESTIMATED GLOMERULAR FILTRATION RATE 117 mL/min/1.73m??? Normal >=60 [facility] Comment on above: Order Comment: Speci men Type: BLOOD SPECIMENOrdering Facility: [facility] Address: [address] [place] [address] Result Comment: Roseanne mated Glomerular Filtration Rate (eGFR) is calculated using the 2020 CKD-EPI creatinine equation. This equation utilizes serum creatinine, sex, and age as parameters. The creatinine assay has traceable calibration to isotope dilution-mass spectrometry. Refer to KDIGO guidelines for clinical interpretation. In patients with unstable renal function, e.g. those with acute kidney injury, the eGFR may not accurately reflect actual GFR. Performed By: #### 2 4323-8 ####IVEY LABORATORYCLIA [id number] [place] [address] [place] Glucose [Mass/Vol] 101 mg/dL High 74-99 [facility] Comment on above: Order Comment: Lou rico Type: BLOOD SPECIMENOrdering Facility: [facility] Address: [address] [place] [address] Result Comment: The [place] [employer] (ADA) provides guidance for cutoff values for fasting glucose and random glucose. The ADA defines fasting as no caloric intake for at least 8 hours. Fasting plasma glucose results between 100 to 125 mg/dL indicate increased risk for diabetes (prediabetes). Fasting plasma glucose results greater than or equal to 126 mg/dL meet the criteria for diagnosis of diabetes. In the absence of unequivocal hyperglycemia, results should be confirmed by repeat testing. In a patient with classic symptoms of hyperglycemia or hyperglycemic crisis, random plasma glucose results greater than or equal to 200 mg/dL meet the criteria for diagnosis of diabetes. Reference: Standards of Medical Care in Diabetes 2016, [place] [employer]. Diabetes Care. 2016.39(Suppl 1). Performed By: #### 2 4323-8 ####IVEY LABORATORYCLIA [id number] [place] [address] [place] Potassium [Moles/Vol] 3.9 mmol/L Normal 3.7-5.1 [facility] Comment on above: Order Comment: Lou rico Type: BLOOD SPECIMENOrdering Facility: [facility] Address: [address] [place] [address] Performed By: #### 2 4323-8 ####IVEY LABORATORYCLIA [id number] [place] [address] [place] Protein [Mass/Vol] 6.2 g/dL Low 6.3-8.0 [facility] Comment on above: Order Comment: Lou rico Type: BLOOD SPECIMENOrdering Facility: [facility] Address: [address] [place] [address] Performed By: #### 2 4323-8 ####IVEY LABORATORYCLIA [id number] [place] [address] [place] Sodium [Moles/Vol] 139 mmol/L Normal 136-144 [facility] Comment on above: Order Comment: Lou rico Type: BLOOD SPECIMENOrdering Facility: [facility] Address: [place] [address] Performed By: #### 2 4323-8 ####HESSEL LABORATORYCLIA [id number] [address] [place] Urea nitrogen [Mass/Vol] 4 mg/dL Low 7- [facility] Comment on above: Order Comment: Speci men Type: BLOOD SPECIMENOrdering Facility: [facility] Address: [place] [address] Performed By: #### 2 4323-8 ####HESSEL LABORATORYCLIA [id number] [address] [place] ANES POSTPROC EVALon 023 ANES POSTPROC EVAL HNO ID: [id number] Author: Tatiana Morales MD Service: Anesthesiology Author Type: Anesthesiologist Type: Anesthesia Postprocedure Evaluation Filed: 11/04/2022 12:46 PM Note Text: POST ANESTHESIA EVALUATION NOTE : 2000 Procedure Summary Date: 11/04/22 Room / Location: [facility] Endoscopy Anesthesia Start: 914 Anesthesia Stop: 934 Procedure: EGD DIAGNOSTIC Diagnosis: (Epigastric abdominal pain) Scheduled Providers: Rupert Muñoz MD; Tatiana Morales MD; Bertha Alvarado APRN.POPULATION HEALTH COACH Responsible Provider: Tatiana Morales MD Anesthesia Type: MAC ASA Status: 2 Anesthesia Type: MAC Last Vitals Vitals Value Taken Time BP 115/66 11/04/22 1024 Temp 36.8 ?C (98.2 ?F) 11/04/22 1024 Pulse 78 11/04/22 1024 Resp 16 11/04/22 1024 SpO2 100 % 11/04/22 1024 Post Anesthesia Patient Status Patient Evaluation: PACU. PACU/ICU Patient Condition: stable. Anticipated Disposition: phase 2 then home. Neurological Status: aware and responsive. Pulmonary Status: breathing comfortably on room air Airway Control: returned to baseline unsupported. Cardiovascular Status: stable. Pain Management: clinically adequate - multimodal analgesia pain management approach Postoperative Hydration: acceptable. Intraoperative Events: no significant anesthesia events Post Operative Nausea/Vomiting Status: no significant post operative nausea or vomiting Recommendation: continue current plan of care. Anesthesia Observations No Documentation SIGNATURE: Tatiana Morales MD PATIENT NAME: Mikayla Blunt DATE: November 04, 2022 TIME: 12:46 PM CSN: [id number] Normal [facility] ANES PRE-OPon 11-04-2022 ANES PRE-OP HNO ID: [id number] Author: Tatiana Morales MD Service: Anesthesiology Author Type: Anesthesiologist Type: Anesthesia Preprocedure Evaluation Filed: 11/04/2022 9:16 AM Note Text: ANESTHESIOLOGY DAY OF SURGERY NOTE : 2000 Procedure Information Date/Time: 11/04/22 0900 Scheduled providers: Rupert Muñoz MD; Tatiana Morales MD; Bertha Alvarado APRN.POPULATION HEALTH COACH Procedure: EGD DIAGNOSTIC Location: [facility] Endoscopy Estimated body mass index is 21.95 kg/m? as calculated from the following: Height as of this encounter: 157.5 cm (5' 2). Weight as of this encounter: 54.4 kg (120 lb). Most recent hematocrit and potassium results: Hematocrit 35.5 11/01/2022 Potassium 3.7 11/04/2022 Relevant Problems ANESTHESIA (+) Delayed emergence from anesthesia CARDIO (+) Migraine without aura and without status migrainosus, not intractable GI (+) GERD (gastroesophageal reflux disease) NEURO-PSYCH (+) Epilepsy (HCC) (+) Migraine without aura and without status migrainosus, not intractable PULMONARY (+) Mild intermittent asthma without complication I - PHYSICAL EVALUATION AIRWAY Patient intubated: No. Tracheostomy tube not present Mallampati: II. TM distance: >3 FB. Neck ROM: full ROM without neurological symptoms. Mouth opening: adequate. Short neck: no. Thick neck: no DENTAL Dental findings: teeth intact. Additional exam findings: yes. CARDIOVASCULAR Rhythm: regular PULMONARY Breath sounds clear to auscultation. II - ANESTHESIA PLAN ASA Score: 2 Anesthetic Plan: MAC The patient is not a current smoker. Beta Alvino Monitoring Plan Monitoring plan: standard ASA. Post Procedure Analgesic Plan Postoperative analgesic plan: multimodal analgesia. Informed Consent Anesthetic risks, benefits, alternatives, personnel and consent discussed: yes. Patient / Responsible Constitution Party agrees to proceed: yes Patient / Surrogate agrees to blood products: blood products not planned DNR status not reviewed with patient and/or family prior to surgery. Significant changes in the patient condition since the History and Physical, not otherwise documented in primary service progress note: no. Potential Anesthesia issues that may suggest increased risk of complications or contraindication to planned procedure: none. Vitals Value Taken Time BP 120/64 11/04/22714 Pulse 84 11/04/22714 Resp 16 11/04/22714 Temp 36.6 ?C (97.9 ?F) 11/04/22714 SpO2 100 % 11/04/22714 Facility-Administered Medications as of 11/04/2022 Medication Dose Route Frequency - [MAR Hold due to Transfer] keTORolac 15 mg injection (Toradol) 15 mg INTRAVENOUS q 6 H PRN - [MAR Hold due to Transfer] polyethylene glycol 3350 17 g packet 17 g ORAL DAILY - [MAR Hold due to Transfer] pantoprazole DR 40 mg tab(s) (PROTONIX) 40 mg ORAL DAILY (6 AM) - [MAR Hold due to Transfer] ibuprofen 200 mg tab(s) (MOTRIN) 200 mg ORAL q 6 H PRN - [MAR Hold due to Transfer] albuterol 2.5 mg /3 mL (0.083 %) 2.5 mg (PROVENTIL) 2.5 mg INHALATION q 6 H PRN - [MAR Hold due to Transfer] aluminum-magnesium hydroxide-simethicone 200-200-20 mg/5 mL 30 mL 30 mL ORAL q 6 H PRN - [COMPLETED] keTORolac 15 mg injection (Toradol) 15 mg INTRAVENOUS q 6 H PRN - [COMPLETED] senna 8.6 mg tab(s) (SENOKOT) 8.6 mg ORAL ONCE - [COMPLETED] docusate sodium 100 mg cap(s) (COLACE) 100 mg ORAL ONCE - [] bisacodyl 10 mg suppository (DULCOLAX) 10 mg RECTAL ONCE - [COMPLETED] keTORolac 15 mg injection (Toradol) 15 mg INTRAVENOUS ONCE - [COMPLETED] ondansetron (PF) 4 mg injection (ZOFRAN) 4 mg INTRAVENOUS ONCE - [COMPLETED] NaCl 0.9% 1,000 mL iv bolus 1,000 mL INTRAVENOUS ONCE - [MAR Hold due to Transfer] propranolol 20 mg tab(s) (INDERAL) 20 mg ORAL TID - [MAR Hold due to Transfer] NaCl 0.9% iv flush bag 20 mL INTRAVENOUS PRN - [MAR Hold due to Transfer] ondansetron orally disintegrating 4 mg tab(s) (ZOFRAN ODT) 4 mg ORAL q 6 H PRN Or - [MAR Hold due to Transfer] ondansetron (PF) 4 mg injection (ZOFRAN) 4 mg INTRAVENOUS q 6 H PRN - [MAR Hold due to Transfer] methylphenidate ER 18 mg tab(s) 18 mg ORAL DAILY Outpatient Medications as of 11/04/2022 Medication Sig - ondansetron orally disintegrating (ZOFRAN ODT) 4 mg disintegrating tablet Take 1 tablet by mouth every 6 hours as needed. - loratadine (CLARITIN) 10 mg tablet Take 10 mg by mouth once daily. - [START ON 11/12/2022] methylphenidate ER 18 mg tablet Take 1 tablet by mouth every morning for 30 days. Do not start before November 12, 2022. - propranolol (INDERAL) 20 mg tablet Take 1 tablet by mouth three times daily. - MULTIVITAMIN ORAL Take by mouth once daily. - albuterol HFA (PROVENTIL HFA, VENTOLIN HFA) 90 mcg/actuation inhaler Inhale 2 Puffs as instructed every 4 hours as needed. - acetaminophen (TYLENOL) 325 mg tablet Take 2 tablets by mouth every 6 hours as needed. - polyethylene glycol 3350 17 gram packet Take 1 Packet by mouth once ro (more content not included)... [facility] CASE MANAGEMon 11-04-2022 CASE MANAGEM HNO ID: [id number] Author: Genesis Charles RN Service: ? Author Type: Registered Nurse Type: Care Mgt Progress Note Filed: 11/04/2022 11:58 AM Note Text: CARE MANAGEMENT PROGRESS NOTE SERVICE DATE: 11/04/2022 SERVICE TIME: 11:58 AM LOS: 1 day Needs Prior to Discharge: Other: See Comment (medical clearance) EMR reviewed. Patient for EGD this AM. Orders written for regular diet post-op. CM assigned will continue to follow for DC planning needs. SIGNATURE: Genesis Charles RN PATIENT NAME: Mikayla Blunt DATE: November 04, 2022 TIME: 11:58 AM PAGER/CONTACT #: [phone] [facility] Comprehensive metabolic 2000 panelon 11-04-2022 Albumin [Mass/Vol] 4.2 g/dL Normal 3.9-4.9 [facility] Comment on above: Order Comment: Speci men Type: BLOOD SPECIMENOrdering Facility: [facility] Address: [address] [place] [address] Performed By: #### 2 4323-8 ####IVEY LABORATORYCLIA [id number] [address] [place] ALP [Catalytic activity/Vol] 77 U/L Normal 34-123 [facility] Comment on above: Order Comment: Speci men Type: BLOOD SPECIMENOrdering Facility: [facility] Address: [address] [place] [address] Performed By: #### 2 4323-8 ####IVEY LABORATORYCLIA [id number] [address] STATES [facility] ALT [Catalytic activity/Vol] 58 U/L High 7-38 [facility] Comment on above: Order Comment: Speci men Type: BLOOD SPECIMENOrdering Facility: [facility] Address: [address] [place] [address] Performed By: #### 2 4323-8 ####IVEY LABORATORYCLIA [id number] [address] Anion gap [Moles/Vol] 9 mmol/L Normal 9-18 [facility] Comment on above: Order Comment: Speci men Type: BLOOD SPECIMENOrdering Facility: [facility] Address: [address] [place] [address] Performed By: #### 2 4323-8 ####IVEY LABORATORYCLIA [id number] [address] [place] AST [Catalytic activity/Vol] 18 U/L Normal 13-35 [facility] Comment on above: Order Comment: Speci men Type: BLOOD SPECIMENOrdering Facility: [facility] Address: [address] [place] [address] Performed By: #### 2 4323-8 ####IVEY LABORATORYCLIA [id number] [address] Bilirubin [Mass/Vol] 0.4 mg/dL Normal 0.2-1.3 [facility] Comment on above: Order Comment: Speci men Type: BLOOD SPECIMENOrdering Facility: [facility] Address: [address] [place] [address] Performed By: #### 2 4323-8 ####IVEY LABORATORYCLIA [id number] [address] [place] Calcium [Mass/Vol] 9.1 mg/dL Normal 8.5-10.2 [facility] Comment on above: Order Comment: Speci men Type: BLOOD SPECIMENOrdering Facility: [facility] Address: [address] [place] [address] Performed By: #### 2 4323-8 ####IVEY LABORATORYCLIA [id number] [address] Chloride [Moles/Vol] 107 mmol/L High 97-105 [facility] Comment on above: Order Comment: Speci men Type: BLOOD SPECIMENOrdering Facility: [facility] Address: [address] [place] [address] Performed By: #### 2 4323-8 ####IVEY LABORATORYCLIA [id number] [address] CO2 [Moles/Vol] 27 mmol/L Normal 22-30 [facility] Comment on above: Order Comment: Speci men Type: BLOOD SPECIMENOrdering Facility: [facility] Address: [address] [place] [address] Performed By: #### 2 4323-8 ####IVEY LABORATORYCLIA [id number] [place] [address] [place] Creatinine [Mass/Vol] 0.81 mg/dL Normal 0.58-0.96 [facility] Comment on above: Order Comment: Speci men Type: BLOOD SPECIMENOrdering Facility: [facility] Address: [address] [place] [address] Performed By: #### 2 4323-8 ####IVEY LABORATORYCLIA [id number] [place] [address] [place] ESTIMATED GLOMERULAR FILTRATION RATE 107 mL/min/1.73m??? Normal >=60 [facility] Comment on above: Order Comment: Lou rico Type: BLOOD SPECIMENOrdering Facility: [facility] Address: [address] [place] [phone] Result Comment: Roseanne mated Glomerular Filtration Rate (eGFR) is calculated using the 2020 CKD-EPI creatinine equation. This equation utilizes serum creatinine, sex, and age as parameters. The creatinine assay has traceable calibration to isotope dilution-mass spectrometry. Refer to KDIGO guidelines for clinical interpretation. In patients with unstable renal function, e.g. those with acute kidney injury, the eGFR may not accurately reflect actual GFR. Performed By: #### 2 4323-8 ####IVEY LABORATORYCLIA [id number] [place] [id number] [place] Glucose [Mass/Vol] 96 mg/dL Normal 74-99 [facility] Comment on above: Order Comment: Lou rico Type: BLOOD SPECIMENOrdering Facility: [facility] Address: [address] [place] [id number] Result Comment: The [place] [employer] (ADA) provides guidance for cutoff values for fasting glucose and random glucose. The ADA defines fasting as no caloric intake for at least 8 hours. Fasting plasma glucose results between 100 to 125 mg/dL indicate increased risk for diabetes (prediabetes). Fasting plasma glucose results greater than or equal to 126 mg/dL meet the criteria for diagnosis of diabetes. In the absence of unequivocal hyperglycemia, results should be confirmed by repeat testing. In a patient with classic symptoms of hyperglycemia or hyperglycemic crisis, random plasma glucose results greater than or equal to 200 mg/dL meet the criteria for diagnosis of diabetes. Reference: Standards of Medical Care in Diabetes 2016, [place] [employer]. Diabetes Care. 2016.39(Suppl 1). Performed By: #### 2 4323-8 ####HESSEL LABORATORYCLIA [id number] [place] [address] [place] Potassium [Moles/Vol] 3.7 mmol/L Normal 3.7-5.1 [facility] Comment on above: Order Comment: Lou rico Type: BLOOD SPECIMENOrdering Facility: [facility] Address: [address] [facility] [place] [address] Performed By: #### 2 4323-8 ####IVEY LABORATORYCLIA [id number] [address] Protein [Mass/Vol] 6.1 g/dL Low 6.3-8.0 [facility] Comment on above: Order Comment: Speci men Type: BLOOD SPECIMENOrdering Facility: [facility] Address: [address] [place] [address] Performed By: #### 2 4323-8 ####IVEY LABORATORYCLIA [id number] [address] Sodium [Moles/Vol] 143 mmol/L Normal 136-144 [facility] Comment on above: Order Comment: Speci men Type: BLOOD SPECIMENOrdering Facility: [facility] Address: [address] [place] [address] Performed By: #### 2 4323-8 ####IVEY LABORATORYCLIA [id number] [address] Urea nitrogen [Mass/Vol] 6 mg/dL Low 7-21 [facility] Comment on above: Order Comment: Speci men Type: BLOOD SPECIMENOrdering Facility: [facility] Address: [address] [place] [address] Performed By: #### 2 4323-8 ####IVEY LABORATORYCLIA [id number] [address] HCG QUAL BLDon 11-04-2022 HCG, QUALITATIVE Negative Normal Negative [facility] Comment on above: Order Comment: Speci men Type: BLOOD SPECIMENOrdering Facility: [facility] Address: [address] [place] [address] Performed By: #### H CG ####IVEY LABORATORYCLIA [id number] [address] SURGICAL PATHOLOGYon 023 CASE REPORT Normal [facility] Comment on above: Order Comment: Speci men Type: BLOOD SPECIMEN Ordering Facility: [facility] Address: [address] [place] [address] Result Comment: Surg ical Pathology Report Case: [id number] Authorizing Provider: Rupert Muñoz MD Collected: 11/04/2022 09:22 AM Ordering Location: [facility] Endoscopy Received: 11/04/2022 04:05 PM Pathologist: Josette Charlton MD, PhD Specimens: A) - DUODENUM BIOPSY, celiac B) - STOMACH BIOPSY, h pylori C) - ESOPHAGOGASTRIC JUNCTION BIOPSY, irregular ge Performed By: #### 2 4323-8 #### [facility] CLIA [id number] [address] DIAGNOSIS COMMENT Normal [facility] Comment on above: Order Comment: Lou rico Type: BLOOD SPECIMEN Ordering Facility: [facility] Address: [address] [place] [phone] Result Comment: Tye G iven the presence of chronic inactive gastritis, a Helicobacter pylori immunohistochemical stain has been performed and reveals no evidence of Helicobacter pylori microorganisms in this material. Laboratory Developed Test (LDT) Disclaimer: Performance characteristics of immunohistochemical, immunofluorescent and chromogenic in-situ hybridization tests have been determined by the performing laboratory within [facility]???s Jasper Patten [facility] Pathology and Laboratory Medicine [place] ([facility], [facility], [facility], [facility], [facility], or [facility]) in a manner consistent with CLIA requirements. One or more of these tests have not been cleared or approved by the FDA. [facility] is regulated under CLIA as qualified to perform high-complexity testing. These tests are used for clinical purposes. They should not be regarded as investigational or for research. Positive and negative controls stain appropriately. Performed By: #### 2 4323-8 #### [facility] CLIA [id number] [address] FINAL DIAGNOSIS [facility] Comment on above: Order Comment: Lou rico Type: BLOOD SPECIMEN Ordering Facility: [facility] Address: [address] [place] [address] Result Comment: A. D uodenum, biopsy: - Duodenal mucosa with no diagnostic abnormality. B. Stomach, biopsy: - Gastric antral mucosa with chronic inactive gastritis (see comment). C. Esophagogastric junction, biopsy: - Reactive squamous and inflamed gastric cardia-type mucosa, negative for intestinal metaplasia. Performed By: #### 2 4323-8 #### [facility] CLIA [id number] [address] FINAL PERFORMING LAB Normal [facility] Comment on above: Order Comment: Speci men Type: BLOOD SPECIMEN Ordering Facility: [facility] Address: [address] [place] [address] Result Comment: Diag nostic interpretation performed at [facility], [address] [place] [address] CLIA# [id number] [employer]: Johnathan Mascorro M.D. Performed By: #### 2 4323-8 #### [facility] CLIA [id number] [address] GROSS DESCRIPTION [facility] Comment on above: Order Comment: Speci men Type: BLOOD SPECIMEN Ordering Facility: [facility] Address: [address] [place] [address] Result Comment: A. D UODENUM BIOPSY Received in formalin are multiple pieces of dukes, soft tissue aggregating to 1.8 x 0.2 x 0.2 cm. Totally submitted in one cassette. B. STOMACH BIOPSY Received in formalin are multiple pieces of dukes, soft tissue aggregating to 1.5 x 0.2 x 0.2 cm. Totally submitted in one cassette. C. ESOPHAGOGASTRIC JUNCTION BIOPSY Received in formalin are two pieces of dukes-white to red, soft tissue aggregating to 0.6 x 0.2 x 0.2 cm. Totally submitted in one cassette. Gross examination performed at [facility], [address] [facility] [id number] JT 11/04/2022 8:23 PM Performed By: #### 2 4323-8 #### [facility] CLIA [id number] [address] Upper GI endoscopyon 023 Upper GI endoscopy [facility] Gastrointestinal Endoscopy Patient Name: Mikayla Blunt Procedure Date: 11/04/2022 8:10 AM Date of : 2000 Admit Type: Inpatient Age: 22 Room: [facility] Gender: Female Note Status: Finalized Attending MD: Rupert Muñoz MD Procedure: Upper GI endoscopy Indications: Epigastric abdominal pain, Nausea with vomiting Providers: Rupert Muñoz MD Patient Profile: Refer to note in patient chart for documentation of history and physical. Referring Physician: Rupert Muñoz MD (Referring MD) Medicines: Monitored Anesthesia Care Complications: No immediate complications. Requesting Provider: Procedure: Pre-Anesthesia Assessment: - Prior to the procedure, a History and Physical was performed, and patient medications, allergies and sensitivities were reviewed. The patient's tolerance of previous anesthesia was reviewed. - The risks and benefits of the procedure and the sedation options and risks were discussed with the patient. All questions were answered and informed consent was obtained. - After reviewing the risks and benefits, the patient was deemed in satisfactory condition to undergo the procedure. - The anesthesia plan was to use monitored anesthesia care (MAC). After obtaining informed consent, the endoscope was passed under direct vision. Throughout the procedure, the patient's blood pressure, pulse, and oxygen saturations were monitored continuously. The was introduced through the mouth, and advanced to the second part of duodenum. The upper GI endoscopy was accomplished without difficulty. The patient tolerated the procedure well. Moderate Sedation: See the other procedure note for documentation of moderate sedation with intraservice time. MAC anesthesia was administered by the anesthesia team. Total Procedure Duration: 0 hours 8 minutes 1 second Findings: The examined duodenum was normal. This was biopsied with a cold forceps for r/o celiac disease. Scattered minimal inflammation characterized by congestion (edema) and erythema was found in the stomach. This was biopsied with a cold forceps for Helicobacter pylori testing. The cardia and gastric fundus were normal on retroflexion. The Z-line was irregular and was found 38 cm from the incisors. This was biopsied with a cold forceps for evaluation to rule out Perez's Esophagus. A small hiatal hernia was present. Impression: - Normal examined duodenum. Biopsied. - Gastritis. Biopsied. - Z-line irregular, 38 cm from the incisors. Biopsied. - Small hiatal hernia. Recommendation: - Await pathology results. - [facility]. - Resume regular diet. - Continue present medications. Procedure Code(s): --- Professional --- 09527, Esophagogastroduodenosc opy, flexible, transoral; with biopsy, single or multiple CPT copyright 2020 [employer]. All rights reserved. The codes documented in this report are preliminary and upon junior linux systems administrator review may be revised to meet current compliance requirements. Attending Participation: I personally performed the entire procedure. Scope In: 9:18:16 AM Scope Out: 9:26:17 AM MD Rupert Coughlin MD 11/04/2022 9:33:33 AM This report has been signed electronically by Rupert Muñoz MD Number of Addenda: 0 Note Initiated On: 11/04/2022 8:10 AM Estimated Blood Loss: Estimated blood loss: none. [facility] ALLIED HEALTHon 11-03-2022 ALLIED HEALTH HNO ID: [id number] Author: IDALIA Jones Service: Radiology Author Type: Technologist Type: Allied Health Filed: 11/03/2022 10:27 AM Note Text: Radiology Service Progress Note PATIENT NAME: Mikayla Blunt DATE OF SERVICE: November 03, 2022 TIME: 10:27 AM PATIENT IDENTITY VERIFICATION COMPLETED USING TWO (2) IDENTIFIERS: Name and Date of confirmed by patient verbally. FALL SCREENING: Has the patient had 2 falls in the last year or 1 fall with injury or currently using an Ambulatory Assistive Device (Walker, Cane, Wheelchair, Crutches, etc.)? Inpatient: Screened on floor PATIENT GENDER DATA: Female. status: : No status: NO. PATIENT RELEVANT IMPLANT DATA REVIEWED: Not Applicable RADIOLOGY DEPARTMENT: General X-ray: Exam(s) Completed: Chest X-Ray Abdomen X-Ray: Abdomen PERIPHERAL IV DATA: Not applicable SIGNED BY: IDALIA Jones November 03, 2022 10:27 AM [facility] Basic metabolic 2000 panelon 11-03-2022 Anion gap [Moles/Vol] 10 mmol/L Normal 9-18 [facility] Comment on above: Order Comment: Speci men Type: BLOOD SPECIMENOrdering Facility: [facility] Address: [address] [place] [id number] Performed By: #### 2 4321-2 ####HESSEL LABORATORYCLIA [id number] [address] Calcium [Mass/Vol] 9.3 mg/dL Normal 8.5-10.2 [facility] Comment on above: Order Comment: Speci men Type: BLOOD SPECIMENOrdering Facility: [facility] Address: [address] [place] [address] Performed By: #### 2 4321-2 ####IVEY LABORATORYCLIA [id number] [place] [address] [place] Chloride [Moles/Vol] 105 mmol/L Normal 97-105 [facility] Comment on above: Order Comment: Speci men Type: BLOOD SPECIMENOrdering Facility: [facility] Address: [address] [place] [address] Performed By: #### 2 4321-2 ####IVEY LABORATORYCLIA [id number] [address] [place] CO2 [Moles/Vol] 25 mmol/L Normal 22-30 [facility] Comment on above: Order Comment: Speci men Type: BLOOD SPECIMENOrdering Facility: [facility] Address: [address] [place] [address] Performed By: #### 2 4321-2 ####IVEY LABORATORYCLIA [id number] [address] [place] Creatinine [Mass/Vol] 0.74 mg/dL Normal 0.58-0.96 [facility] Comment on above: Order Comment: Speci men Type: BLOOD SPECIMENOrdering Facility: [facility] Address: [address] [place] [address] Performed By: #### 2 4321-2 ####IVEY LABORATORYCLIA [id number] [address] [place] ESTIMATED GLOMERULAR FILTRATION RATE 119 mL/min/1.73m??? Normal >=60 [facility] Comment on above: Order Comment: Speci men Type: BLOOD SPECIMENOrdering Facility: [facility] Address: [address] [place] [address] Result Comment: Roseanne mated Glomerular Filtration Rate (eGFR) is calculated using the 2020 CKD-EPI creatinine equation. This equation utilizes serum creatinine, sex, and age as parameters. The creatinine assay has traceable calibration to isotope dilution-mass spectrometry. Refer to KDIGO guidelines for clinical interpretation. In patients with unstable renal function, e.g. those with acute kidney injury, the eGFR may not accurately reflect actual GFR. Performed By: #### 2 4321-2 ####IVEY LABORATORYCLIA [id number] [place] [address] [place] Glucose [Mass/Vol] 99 mg/dL Normal 74-99 [facility] Comment on above: Order Comment: Lou rico Type: BLOOD SPECIMENOrdering Facility: [facility] Address: [address] [id number] Result Comment: The [place] Diabetes [employer] (ADA) provides guidance for cutoff values for fasting glucose and random glucose. The ADA defines fasting as no caloric intake for at least 8 hours. Fasting plasma glucose results between 100 to 125 mg/dL indicate increased risk for diabetes (prediabetes). Fasting plasma glucose results greater than or equal to 126 mg/dL meet the criteria for diagnosis of diabetes. In the absence of unequivocal hyperglycemia, results should be confirmed by repeat testing. In a patient with classic symptoms of hyperglycemia or hyperglycemic crisis, random plasma glucose results greater than or equal to 200 mg/dL meet the criteria for diagnosis of diabetes. Reference: Standards of Medical Care in Diabetes 2016, [place] [employer]. Diabetes Care. 2016.39(Suppl 1). Performed By: #### 2 4321-2 ####IVEY LABORATORYCLIA [id number] [place] [id number] [place] Potassium [Moles/Vol] 4.0 mmol/L Normal 3.7-5.1 [facility] Comment on above: Order Comment: Lou rico Type: BLOOD SPECIMENOrdering Facility: [facility] Address: [address] [phone] Performed By: #### 2 4321-2 ####IVEY LABORATORYCLIA [id number] [place] [address] [place] Sodium [Moles/Vol] 140 mmol/L Normal 136-144 [facility] Comment on above: Order Comment: Lou rico Type: BLOOD SPECIMENOrdering Facility: [facility] Address: [address] [phone] Performed By: #### 2 4321-2 ####HESSEL LABORATORYCLIA [id number] [place] [address] [facility] Urea nitrogen [Mass/Vol] 6 mg/dL Low 7- [facility] Comment on above: Order Comment: Speci men Type: BLOOD SPECIMENOrdering Facility: [facility] Address: [facility] [place] [address] Performed By: #### 2 4321-2 ####HESSEL LABORATORYCLIA [id number] [place] [address] [facility] [place] CONSULT PROGon 11-03-2022 CONSULT PROG HNO ID: [id number] Author: Rupert Muñoz MD Service: Gastroenterology Author Type: Physician Type: Consult Progress Note Filed: 11/03/2022 10:02 AM Note Text: GASTROENTEROLOGY CONSULT PROGRESS NOTE Patient Name: Mikayla Blunt SERVICE DATE: November 03, 2022 SERVICE TIME: 9:52 AM ASSESSMENT: Postprandial epigastric pain with nausea vomiting, need to consider gastritis, peptic ulcer disease and biliary causes Right upper quadrant pain, nausea and vomiting . Clinically due to constipation/obstipatio n, this seems resolved CT evidence of large burden of stool in the ascending and transverse colon Status post recent hammertoe surgery , requiring the use of pain meds , likely the cause of above . Abnormal liver enzymes, most likely related to drug-induced liver injury 4 cm liver lesion most likely hemangioma PLAN: Get abdominal x-rays to follow-up on her constipation Plan an upper endoscopy tomorrow morning, risk-benefit and alternative were described Advance diet as tolerated Continue Protonix once daily Await EBV, HSV, CMV antibodies Plan outpatient liver MRI ___ INTERVAL HPI: Today she reports that she has been having postprandial epigastric pain, had nausea and vomiting yesterday after eating supper. Continue to have bowel movements although the frequency seem to have slowed down. Remains afebrile, labs are essentially unremarkable. Liver enzymes trending down Both parents are at the bedside PHYSICAL EXAM: Patient Vitals for the past 24 hrs: BP Temp Temp src Pulse Resp SpO2 11/03/22 0824 122/84 -- -- 94 -- 100 % 11/03/22 0739 95/52 36.8 ?C (98.2 ?F) Oral 90 -- 98 % 11/02/22 2247 (!) 103/45 36.9 ?C (98.4 ?F) Oral 73 16 99 % 11/02/22 1623 109/59 -- Oral 68 16 100 % GENERAL: Alert and oriented x 3. Appears comfortable. NAD HEENT: No pallor. No scleral icterus LUNGS: Clear to auscultation anteriorly CARDIAC: RRR ABDOMEN: Soft. Non distended. Localized epigastric tenderness,. Bowel sounds normal. No guarding or rebound tenderness. EXTREMITIES: No edema to MASON lower extremities LABS: CBC, Coags, BMP, Mg, Phos Recent Labs 11/01/22 0414 10/31/22 1259 WBC 4.59 7.20 HB 11.6 13.3 HCT 35.5* 40.2 PLT 143* 193 NA 141 141 K 4.0 4.0 CHLOR 110* 105 CO2 22 25 BUN 11 12 CREAT 0.70 0.75 GLUC 79 89 CA 9.0 9.6 Liver Function, Amylase, AND Lipase Recent Labs 11/02/22 0435 11/01/22 0414 10/31/22 1849 TPROT 6.0* 5.9* 6.5 ALB 4.0 4.0 4.2 ALT 95* 129* 164* AST 31 54* 84* ALKPHOS 89 98 121 TBILI 0.5 0.5 0.5 LIPASE -- -- 26 MEDICATIONS: Current Facility-Administered Medications Medication Dose Route Frequency [...] 30 mL ORAL q 6 H PRN SIGNATURE: Rupert Muñoz MD DATE: November 03, 2022 TIME: 9:52 AM [facility] XR ACUTE ABD SERIES 2V ABD+C XRon 11-03-2022 XR ACUTE ABD SERIES 2V ABD+CXR * * *Final Report* * * DATE OF EXAM: Nov 03 2022 10:25AM MDX [id number] - XR ACUTE ABD SERIES 2V ABD+CXR / PROCEDURE REASON: Abdominal pain, acute, nonlocalized * * * * Physician Interpretation * * * * EXAMINATION: XR ACUTE ABD SERIES 2V ABD+CXR CLINICAL HISTORY: Abdominal pain, acute, nonlocalized, Nausea/vomiting Technique: XR ACUTE ABD SERIES 2V ABD+CXR with 3 views on 5 images Comparison: KUB 10/10/2014, CT abdomen 10/30/2022 RESULT: Chest: Heart is normal in size. No pneumothorax, pleural effusions, or focal consolidation. KUB: No free air under the hemidiaphragms. Nonobstructive bowel gas pattern. IMPRESSION: No acute process Secure Software Assessor: PSCB Transcribe Date/Time: Nov 03 2022 4:36P Dictated by : ISAIAS LOPEZ MD This examination was interpreted and the report reviewed and electronically signed by: ISAIAS LOPEZ MD on Nov 03 2022 4:38PM EST [id number] [facility] CASE MANAGEMon 11-02-2022 CASE MANAGEM HNO ID: [id number] Author: Bertha Shin RN Service: ? Author Type: Registered Nurse Type: Care Mgt Progress Note Filed: 11/02/2022 4:55 PM Note Text: CARE MANAGEMENT DISCHARGE NOTE SERVICE DATE: November 02, 2022 SERVICE TIME: 4:51 PM Discharge order written for today. Discharge Home - Discharge if patient able to tolerate soft diet RN JOLENE spoke with patient to discuss discharge planning. Patient agreeable with discharge home if she tolerates her supper meal. Patient states her family will provide her discharge transportation home. Patient lives with her parents. Admission Date: 10/31/2022 LOS: 0 days Discharge Arrangement Discharge Arrangement: Home with Self Care Transportation Arrangements Transportation Arrangements: Car (Family to Transport) Handoff Communication: Handoff to: Primary Care Physician Primary Care Physician Name/Phone: PCP: Eileen Nair DO - Additional Information: Discharge Information Row Name ED to Hosp-Admission (Current) from 10/31/2022 in [facility] Medical Follow-Up Appointment Provider Name PCP: Eileen Nair DO - SIGNATURE: Bertha Shin RN PATIENT NAME: Mikayla Blunt DATE: November 02, 2022 TIME: 4:51 PM CONTACT #: [phone] [facility] 11-02-2022 [facility] HNO ID: [id number] Author: Mary Muhammad MD Service: Hospital Medicine Author Type: Physician Type: Discharge Summary Filed: 11/02/2022 4:11 PM Note Text: DISCHARGE SUMMARY PATIENT NAME: Mikayla Blunt Code Status: Not on file Highest Readmission Risk Score: 8 The 30 day readmissions risk score is derived from an internally validated risk model which evaluates patient level characteristics, utilization history, medication orders and lab results up until the day of discharge. Patients with a score of 40 or above are considered highest risk for readmission. Specific patient level drivers will be listed at the bottom of the summary. Admission Information Admission Information ADMIT DATE: 10/31/2022 DISCHARGE DATE: 11/02/2022 MY DOCTORS AND MEDICAL TEAM: My Main Hospital Doctor: Mary Muhammad MD Primary Care Provider: Eileen Nair DO My Medical Team Members: Treatment Team: Attending Provider: Mary Muhammad MD Consulting: Kristina Franklin MD Primary Service: [facility] 4 MY CONDITION AT DISCHARGE: Stable REASON I WAS IN THE HOSPITAL: Nausea, vomiting, abdominal pain SUMMARY OF WHAT HAPPENED WHILE I WAS IN THE HOSPITAL: You presented to the hospital for evaluation of nausea, vomiting, abdominal cramps and constipation. You were found to have abnormal liver enzymes possibly secondary to Tylenol use, which improved with conservative management. You were started on laxation therapy and GI was consulted. Imaging was concerning for hemangioma of the liver. Viral serologies were ordered by GI. Your constipation resolved and GI recommended outpatient follow-up with liver MRI and viral serologies. OTHER PROBLEMS/DIAGNOSIS: Principal Problem (Resolved): RUQ pain Active Problems: Narcolepsy without cataplexy GERD (gastroesophageal reflux disease) Mild intermittent asthma without complication POTS (postural orthostatic tachycardia syndrome) Epilepsy (HCC) Cyst of right ovary Resolved Problems: Elevated transaminase level Other constipation OPERATIONS PERFORMED WHILE IN THE HOSPITAL: None IMPORTANT TEST/PROCEDURES: No procedures performed TEST RESULTS NOT AVAILABLE AT THIS TIME: Viral serologies Discharge Disposition Discharge Disposition: Home With Self Care Activity When You Leave the Hospital Resume pre-hospital activity Diet Instructions Resume your pre-hospital diet For Pain When You Leave the Hospital Use ibuprofen (Motrin, Advil) as recommended on the bottle Call Your Doctor If For the following: Nausea, vomiting, abdominal pain Follow Up Appointments Follow-Up Appointment With: Gastroenterology When: In 4 weeks Additional Provider to Provider Information: 22-year-old female with a past medical history of asthma, epilepsy, narcolepsy with cataplexy, GERD, migraines, POTS who presented to the ER on 10/31/2022 for evaluation of nausea, vomiting, abdominal discomfort. Had undergone hammertoe surgery on the right lower extremity on 10/25/2022 and had been taking Tylenol, tramadol postoperatively. Subsequently patient developed constipation which progressively worsened with associated nausea and vomiting. Patient was admitted to our service and underwent right upper quadrant ultrasound which showed findings concerning for hemangioma. Patient was seen by gastroenterology and was started on laxation therapy with subsequent resolution of constipation. Patient's diet was advanced as tolerated. GI ordered viral serologies for the patient to be followed up as an outpatient along with an MRI of the liver. Patient was discharged home Treatment Team: Attending Provider: Mary Muhammad MD Consulting: Kristina Franklin MD Primary Service: [place] [address] Transitions of Care Critical Issues: IMAGING FOLLOW-UP: MRI of the liver SPECIALIST FOLLOW-UP: Gastroenterology LABS AND PROCEDURES PENDING AT DISCHARGE: Test Results Not Yet Available from This Hospitalization: Please Review at Your Follow Up Appointment Order Current Status CMV IGM AB In process MAIN-SCHAEFER VCA IGM In process FOLLOW-UP APPOINTMENTS ALREADY SCHEDULED WITH A [facility] PROVIDER: Future Appointments Date Time Provider Department Center 11/05/2022 9:00 AM Clifford Valenzuela DPM [id number] 12/03/2022 3:30 PM Zoran Julio APRN.CORRECTIONAL PROBATION OFFICER [facility] ALLERGIES Allergen Reactions Hydrocodone-Acetami* Swelling Latex Swelling Omnicef [Cefdinir] Swelling Versed [Midazolam H* Mental Status Change Pulling out IV's, extremely confused and restless, getting on hands and knees Penicillins Rash Gluten GI Upset DISCHARGE MEDICATION: Current Discharge Medication List START taking these medications polyethylene glycol 3350 17 g Take 17 g by mouth once daily as needed for constipation. class=HTML_HHS> Dissolve dose in 4 - 8 ounces of liquid and take as directed. Qty: 30 Each Refills: [address] (PROTONIX) 40 mg Take 40 mg by mouth RO (more content not included)... [facility] CONSULT PROGon 11-02-2022 CONSULT PROG HNO ID: [id number] Author: Rupert Muñoz MD Service: Gastroenterology Author Type: Physician Type: Consult Progress Note Filed: 11/02/2022 1:58 PM Note Text: GASTROENTEROLOGY CONSULT PROGRESS NOTE Patient Name: Mikayla Blunt SERVICE DATE: November 02, 2022 SERVICE TIME: 1:49 PM ASSESSMENT: Right upper quadrant pain, nausea and vomiting . Clinically due to constipation/obstipatio n CT evidence of large burden of stool in the ascending and transverse colon Status post recent hammertoe surgery , requiring the use of pain meds , likely the cause of above . Abnormal liver enzymes, most likely related to drug-induced liver injury 4 cm liver lesion most likely hemangioma PLAN: Decrease the dose of her bowel regimen, discontinue lactulose and senna. Advance diet as tolerated Change Protonix to once daily Await EBV, HSV, CMV antibodies Plan outpatient liver MRI ___ INTERVAL HPI: Patient had multiple stools last night up to 12 bowel movements, she had 2 further stools today. Reports feeling much better, her abdominal pain is minimal at this point, occasional belching. No nausea or vomiting. No rectal bleeding. Remains afebrile, liver enzymes are trending down PHYSICAL EXAM: Patient Vitals for the past 24 hrs: BP Temp Temp src Pulse Resp SpO2 11/02/22 0740 105/57 37 ?C (98.6 ?F) Oral 83 18 98 % 11/02/22 0414 101/53 -- -- 75 -- 98 % 11/02/22 0413 98/52 36.9 ?C (98.4 ?F) Oral 76 18 97 % 11/01/22 2307 115/58 37.2 ?C (99 ?F) Oral 77 18 97 % 11/01/22 1922 104/65 37 ?C (98.6 ?F) Oral 86 18 98 % 11/01/22 1625 113/66 36.7 ?C (98.1 ?F) Oral 82 16 100 % GENERAL: Alert and oriented x 3. Appears comfortable. NAD HEENT: No pallor. No scleral icterus LUNGS: Clear to auscultation anteriorly CARDIAC: RRR ABDOMEN: Soft. Non distended. Non tender. Bowel sounds normal. No guarding or rebound tenderness. EXTREMITIES: No edema to MASON lower extremities LABS: CBC, Coags, BMP, Mg, Phos Recent Labs 11/01/2241310/31/22 1259 10/30/222053 WBC 4.59 7.20 8.50 HB 11.6 13.3 15.0 HCT 35.5* 40.2 43.7 PLT 143* 193 199 NA 141 141 139 K 4.0 4.0 4.0 CHLOR 110* 105 102 CO2 22 25 25 BUN 11 12 11 CREAT 0.70 0.75 0.68 GLUC 79 89 104* CA 9.0 9.6 9.9 Liver Function, Amylase, AND Lipase Recent Labs 11/02/22 0435 11/01/22 0414 10/31/22 1849 10/31/22 1259 10/30/222053 TPROT 6.0* 5.9* 6.5 < > 7.8 ALB 4.0 4.0 4.2 < > 5.0* ALT 95* 129* 164* < > 217* AST 31 54* 84* < > 120* ALKPHOS 89 98 121 < > 178* TBILI 0.5 0.5 0.5 < > 0.3 LIPASE -- -- 26 -- 22 < > = values in this interval not displayed. MEDICATIONS: Current Facility-Administered Medications Medication Dose Route Frequency [...] 18 mg tab(s) 18 mg ORAL DAILY pantoprazole DR 40 mg tab(s) (PROTONIX) 40 mg ORAL BID [START ON 11/03/2022] polyethylene glycol 3350 17 g packet 17 g ORAL DAILY SIGNATURE: Rupert Muñoz MD DATE: November 02, 2022 TIME: 1:49 PM Normal [facility] Hepatic function 2000 panelo n 11-02-2022 Albumin [Mass/Vol] 4.0 g/dL Normal 3.9-4.9 [facility] Comment on above: Order Comment: Speci men Type: BLOOD SPECIMENOrdering Facility: [facility] Address: [address] [place] [address] Performed By: #### 2 4325-3 ####HESSEL LABORATORYCLIA [id number] [address] ALP [Catalytic activity/Vol] 89 U/L Normal 34-123 [facility] Comment on above: Order Comment: Speci men Type: BLOOD SPECIMENOrdering Facility: [facility] Address: [address] [address] Performed By: #### 2 4325-3 ####HESSEL LABORATORYCLIA [id number] [address] [facility] ALT [Catalytic activity/Vol] 95 U/L High 7-38 [facility] Comment on above: Order Comment: Speci men Type: BLOOD SPECIMENOrdering Facility: [facility] Address: [address] [place] [address] Performed By: #### 2 4325-3 ####IVEY LABORATORYCLIA [id number] [address] AST [Catalytic activity/Vol] 31 U/L Normal 13-35 [facility] Comment on above: Order Comment: Speci men Type: BLOOD SPECIMENOrdering Facility: [facility] Address: [address] [place] [address] Performed By: #### 2 4325-3 ####IVEY LABORATORYCLIA [id number] [address] Bilirubin [Mass/Vol] 0.5 mg/dL Normal 0.2-1.3 [facility] Comment on above: Order Comment: Speci men Type: BLOOD SPECIMENOrdering Facility: [facility] Address: [address] [place] [address] Performed By: #### 2 5-3 ####IVEY LABORATORYCLIA [id number] [address] Bilirubin.conjugated [Mass/Vol] mg/dL Normal <0.2 [facility] Comment on above: Order Comment: Speci men Type: BLOOD SPECIMENOrdering Facility: [facility] Address: [address] [place] [address] Performed By: #### 2 4325-3 ####IVEY LABORATORYCLIA [id number] [address] Protein [Mass/Vol] 6.0 g/dL Low 6.3-8.0 [facility] Comment on above: Order Comment: Speci men Type: BLOOD SPECIMENOrdering Facility: [facility] Address: [address] [place] [address] Performed By: #### 2 4325-3 ####IVEY LABORATORYCLIA [id number] [address] NURSING PROGon 11-02-2022 NURSING PROG HNO ID: [id number] Author: Gunjan Griffin RN Service: ? Author Type: Registered Nurse Type: Nursing Progress Note Filed: 11/02/2022 5:53 PM Note Text: Nursing Progress Note Topic of Note: Daily Note Mikayla Blunt [phone]: Patient ate two bites of food; diet advanced to GI soft, and soon after had nausea with vomiting. Patient with complaint of esophageal burning and abdominal discomfort. RN paged attending. Discharge home discontinued. RN administered IV Zofran. 1750: Patient still not feeling well with continued nausea and esophageal burning. Patient stating she feels weak and cold. RN paged attending. This note was completed by: Gunjan Griffin [facility] CASE MGT INIT [facility] 2022 CASE MGT INIT [facility] HNO ID: [id number] Author: Areli Sena RN Service: ? Author Type: Registered Nurse Type: Care Mgt Initial Assessment Filed: 11/01/2022 2:40 PM Note Text: CARE MANAGEMENT: ASSESSMENT AND DISCHARGE PLAN SERVICE DATE: November 01, 2022 SERVICE TIME: 2:39 PM PCP: Eileen Nari DO Primary Contact: Extended Emergency Contact Information Primary Emergency Contact: Nena Blunt Address: [address] [place] [address] [place] [address] [facility] Mobile Relation: Mother Secondary Emergency Contact: Gibran Blunt Address: [address] [place] [address] [place] [address] [facility] Mobile Relation: Father Admission Status: Observation Insurance Provider: PRIYA HARDY Discharge Planning requested by: Per Department Practice Potential Transition Plans Home Advance Directives Current Advance Directive: None Current Living Arrangements and Support Lives with: Family members Type of Residence: Support: Family members How do you manage to accomplish the following: Independent: Ambulation;Transportati on to appointments/community; Bathe/Shower;Dress;Meal s/Meal Prep;Going to the bathroom;Medication Management Current Services/Equipment Current Post-Acute Service(s): None Discharge Planning Patient Goal(s): The patient/family expressed post-acute services are not needed at this time. [place] of [place] Explained: [place] of [place] Given: No Reason Not Given: No placements necessary Are you interested in bedside delivery of your medications? No Discharge Planning Participant(s): Family;Patient Patient/Family Comments: Caregiver Assessment: Caregiver is ready, willing and able to meet the patient's needs as recommended by the inter-professional team: No Caregiver needed Transport at Discharge: Family Needs Prior to Discharge: Anticipate basic dc needs Post-Acute Discharge Plan: This patient has been screened for Care Management Transitional Planning Services. At this time, it does not appear this patient will require transition planning services. Should this change, and the patient requires transition planning services coordinated during this admission (ie placement, IV ATB?s), please call the field nurse case manager covering this case. SIGNATURE: Areli Sena RN PATIENT NAME: Mikayla Blunt DATE: November 01, 2022 TIME: 2:39 PM CONTACT #: [phone] Normal [facility] CBC panel Auto (Bld)on 11-01 Erythrocyte distribution width (RBC) [Ratio] 12.0 % Normal 11.5-15.0 [facility] Comment on above: Order Comment: Lou rico Type: BLOOD SPECIMENOrdering Facility: [facility] Address: [address] [place] [address] Performed By: #### 5 8410-2 ####[facility] LABORATORYCLIA [id number] [address] Hematocrit (Bld) [Volume fraction] 35.5 % Low 36.0-46.0 [facility] Comment on above: Order Comment: Lou rico Type: BLOOD SPECIMENOrdering Facility: [facility] Address: [address] [place] [address] Performed By: #### 5 8410-2 ####[facility] LABORATORYCLIA [id number] [address] [facility] Hemoglobin (Bld) [Mass/Vol] 11.6 g/dL Normal 11.5-15.5 [facility] Comment on above: Order Comment: Lou rico Type: BLOOD SPECIMENOrdering Facility: [facility] Address: [address] [place] [address] Performed By: #### 5 8410-2 ####[facility] LABORATORYCLIA [id number] [address] [place] MCH (RBC) [Entitic mass] 28.3 pg Normal 26.0-34.0 [facility] Comment on above: Order Comment: Speci men Type: BLOOD SPECIMENOrdering Facility: [facility] Address: [address] [place] [address] Performed By: #### 5 8410-2 ####[facility] LABORATORYCLIA [id number] [address] MCHC (RBC) [Mass/Vol] 32.7 g/dL Normal 30.5-36.0 [facility] Comment on above: Order Comment: Speci men Type: BLOOD SPECIMENOrdering Facility: [facility] Address: [address] [place] [address] Performed By: #### 5 8410-2 ####IVEY LABORATORYCLIA [id number] [address] MCV (RBC) [Entitic vol] 86.6 fL Normal 80.0-100.0 [facility] Comment on above: Order Comment: Speci men Type: BLOOD SPECIMENOrdering Facility: [facility] Address: [address] [place] [address] Performed By: #### 5 8410-2 ####IVEY LABORATORYCLIA [id number] [address] Nucleated RBC (Bld) [#/Vol] 10*3/uL Normal <0.01 [facility] Comment on above: Order Comment: Speci men Type: BLOOD SPECIMENOrdering Facility: [facility] Address: [address] [address] Performed By: #### 5 8410-2 ####IVEY LABORATORYCLIA [id number] [address] Platelet mean volume (Bld) [Entitic vol] 10.3 fL Normal 9.0-12.7 [facility] Comment on above: Order Comment: Speci men Type: BLOOD SPECIMENOrdering Facility: [facility] Address: [address] [address] Performed By: #### 5 8410-2 ####IVEY LABORATORYCLIA [id number] [address] [place] Platelets (Bld) [#/Vol] 143 10*3/uL Low 150-400 [facility] Comment on above: Order Comment: Speci men Type: BLOOD SPECIMENOrdering Facility: [facility] Address: [address] [place] [address] Performed By: #### 5 8410-2 ####IVEY LABORATORYCLIA [id number] [place] [address] [place] RBC (Bld) [#/Vol] 4.10 10*6/uL Normal 3.90-5.20 [facility] Comment on above: Order Comment: Speci men Type: BLOOD SPECIMENOrdering Facility: [facility] Address: [address] [place] [address] Performed By: #### 5 8410-2 ####HESSEL LABORATORYCLIA [id number] [address] [facility] WBC (Bld) [#/Vol] 4.59 10*3/uL Normal 3.70-11.00 [facility] Comment on above: Order Comment: Speci men Type: BLOOD SPECIMENOrdering Facility: [facility] Address: [address] [place] [address] Performed By: #### 5 8410-2 ####IVEY LABORATORYCLIA [id number] [address] CMV IgM Qnon 11-01-2022 CMV IGM, QUAL Negative Normal Negative [facility] Comment on above: Order Comment: Speci men Type: BLOOD SPECIMENOrdering Facility: [facility] Address: [address] [place] [address] Result Comment: No s erological evidence of recent exposure to Cytomegalovirus. Performed By: #### 7 853-5, 7886-5 ####[facility] LABCLIA [id number] [facility] [place]NOTE 2]DES [id number] [place] CONSULTon 11-01-2022 CONSULT HNO ID: [id number] Author: Rupert Muñoz MD Service: Gastroenterology Author Type: Physician Type: Consults Filed: 11/01/2022 3:18 PM Note Text: GASTROENTEROLOGY CONSULT NOTE PATIENT NAME: Mikayla Blunt SERVICE DATE: November 01, 2022 SERVICE TIME: 9:39 AM PRIMARY CARE PHYSICIAN: Eileen Nair DO ATTENDING PHYSICIAN: Lucia Gee MD REASON FOR ADMISSION/CONSULTATION: RUQ pain, N/V, constipation, elevated LFTs HPI: This is a 22 year old female with a past medical history significant for narcolepsy, GERD, asthma, POTS syndrome, epilepsy who presented to ED on 10/31/22 with RUQ pain and nausea. She actually presented to the ED initially on 10/30/22 with the same symptoms. CT A/P with ovarian cyst and hepatic hemangioma but no acute process. LFTs at that time were elevated which were felt to be related to Tylenol use. She was given IV fluids, Toradol, Fentanyl, and Zofran and discharged home with Zofran and Senna. She has had persistent symptoms and thus re-presented to the ED. She had hammertoe surgery on 10/25/22 and has been taking Tramadol and Tylenol prn (1 g TID prn but had not been taking necessarily 3x/day). Has been constipated over the last week. Has taken 3 doses of Miralax, enema, and suppository and had a very small BM on Friday but no significant BM over the last 8 days. She was given Senna x 3, Colace, and Miralax here and Lactulose planned for later today. No BRB, melena. Has had RUQ pain since Friday which radiates to back. Worse with movement. Developed nausea with vomiting as of Friday. No hematemesis. Occasional heartburn (uses Tums 1-2 per week) but over the last week has noted worsening symptoms and eructation. No dysphagia, odynophagia. Normally has a BM once daily. Is passing flatus. No weight changes. Ibuprofen use prn. No prior hx of these symptoms. No sore throat. She did have a temperature of 99 on Friday ALLERGIES Allergen Reactions Hydrocodone-Acetami* Swelling Latex Swelling Omnicef [Cefdinir] Swelling Versed [Midazolam H* Mental Status Change Pulling out IV's, extremely confused and restless, getting on hands and knees Penicillins Rash Gluten GI Upset PAST MEDICAL HISTORY: 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) off AEDs since 2017 GERD (gastroesophageal reflux disease) Hypertension 04/11/2020 Mild intermittent asthma without complication MT (mallet toe), right Narcolepsy without cataplexy Nonallergic rhinitis PMH - PAST MEDICAL HISTORY OF seizure POTS (postural orthostatic tachycardia syndrome) PAST SURGICAL HISTORY: PAST SURGICAL HISTORY Procedure Laterality Date DENTAL [...] TONSIL AND ADENOI UNDER AGE 14 02/12/2010 MEDICATIONS: Prior to Admission Medications: Senna 8.6 mg tab, Take 1 tablet by mouth twice daily., Disp: 30 tablet, Rfl: 0, 10/31/2022 at 0800 ondansetron orally disintegrating (ZOFRAN ODT) 4 mg disintegrating tablet, Take 1 tablet by mouth every 6 hours as needed., Disp: 20 tablet, Rfl: 0, Unknown loratadine (CLARITIN) 10 mg tablet, Take 10 mg by mouth once daily., Disp: , Rfl: , 10/30/2022 at 2100 traMADol (ULTRAM) 50 mg tablet, Take 1 tablet by mouth every 6 hours as needed for pain., Disp: 30 tablet, Rfl: 1, 10/28/2022 at 0800 [START ON 11/12/2022] methylphenidate ER 18 mg tablet, Take 1 tablet by mouth every morning for 30 days. Do not start before November 12, 2022., Disp: 30 tablet, Rfl: 0, 10/31/2022 propranolol (INDERAL) 20 mg tablet, Take 1 tablet by mouth three times daily., Disp: 90 tablet, Rfl: 5, 10/31/2022 at 0800 MULTIVITAMIN ORAL, Take by mouth once daily., Disp: , Rfl: , 10/30/2022 at 2100 albuterol HFA (PROVENTIL HFA, VENTOLIN HFA) 90 mcg/actuation inhaler, Inhale 2 Puffs as instructed every 4 hours as needed., Disp: 18 g, Rfl: 4, Unknown albuterol (PROVENTIL) 2.5 mg /3 mL (0.083 %) nebulizer solution, 1 vial contains 3 ml. 1 unit dose every 4 hours as needed, Disp: 60 mL, Rfl: 1, Unknown acetaminophen (TYLENOL) 325 mg tablet, Take 2 tablets by mouth every 6 hours as needed., Disp: , Rfl: , Unknown Current Hospital Medications: Current Facility-Administered Medications Medication Dose Route Frequency propranolol 20 mg tab(s) (INDERAL) 20 mg ORAL TID NaCl 0.9% iv flush bag 20 mL INTRAVENOUS PRN ondansetron orally disintegrating 4 mg tab(s) (ZOFRAN ODT) 4 mg ORAL q 6 H PRN Or ondansetron (PF) 4 mg injection (ZOFRAN) 4 mg INTRAVENOUS q 6 H PRN keTORolac 15 mg injection (Toradol) 15 mg IN (more content not included)... Normal [facility] Comprehensive metabolic 2000 panelon 11-01-2022 Albumin [Mass/Vol] 4.0 g/dL Normal 3.9-4.9 [facility] Comment on above: Order Comment: Speci jacky Type: BLOOD SPECIMEN Ordering Facility: [facility] Address: [address] [address] Performed By: #### 2 4323-8 #### [facility] CLIA [id number] [address] [place] ALP [Catalytic activity/Vol] 98 U/L Normal 34-123 [facility] Comment on above: Order Comment: Speci men Type: BLOOD SPECIMEN Ordering Facility: [facility] Address: [address] [address] Performed By: #### 2 4323-8 #### [facility] CLIA [id number] [address] [place] [address] [place] ALT [Catalytic activity/Vol] 129 U/L High 7-38 [facility] Comment on above: Order Comment: Speci men Type: BLOOD SPECIMEN Ordering Facility: [facility] Address: [address] [place] [address] Performed By: #### 2 4323-8 #### [facility] CLIA [id number] [address] Anion gap [Moles/Vol] 9 mmol/L Normal 9-18 [facility] Comment on above: Order Comment: Speci men Type: BLOOD SPECIMEN Ordering Facility: [facility] Address: [address] [place] [address] Performed By: #### 2 4323-8 #### [facility] CLIA [id number] [address] [place] AST [Catalytic activity/Vol] 54 U/L High 13-35 [facility] Comment on above: Order Comment: Speci men Type: BLOOD SPECIMEN Ordering Facility: [facility] Address: [address] [place] [address] Performed By: #### 2 4323-8 #### [facility] CLIA [id number] [address] [place] Bilirubin [Mass/Vol] 0.5 mg/dL Normal 0.2-1.3 [facility] Comment on above: Order Comment: Speci men Type: BLOOD SPECIMEN Ordering Facility: [facility] Address: [address] [place] [address] Performed By: #### 2 4323-8 #### [facility] CLIA [id number] [address] Calcium [Mass/Vol] 9.0 mg/dL Normal 8.5-10.2 [facility] Comment on above: Order Comment: Speci men Type: BLOOD SPECIMEN Ordering Facility: [facility] Address: [address] [address] Performed By: #### 2 4323-8 #### [facility] CLIA [id number] [address] [facility] Chloride [Moles/Vol] 110 mmol/L High 97-105 [facility] Comment on above: Order Comment: Speci men Type: BLOOD SPECIMEN Ordering Facility: [facility] Address: [address] [address] Performed By: #### 2 4323-8 #### [facility] CLIA [id number] [address] STATES [facility] CO2 [Moles/Vol] 22 mmol/L Normal 22-30 [facility] Comment on above: Order Comment: Speci men Type: BLOOD SPECIMEN Ordering Facility: [facility] Address: [address] [place] [address] Performed By: #### 2 4323-8 #### [facility] CLIA [id number] [address] Creatinine [Mass/Vol] 0.70 mg/dL Normal 0.58-0.96 [facility] Comment on above: Order Comment: Speci men Type: BLOOD SPECIMEN Ordering Facility: [facility] Address: [address] [place] [address] Performed By: #### 2 4323-8 #### [facility] CLIA [id number] [address] ESTIMATED GLOMERULAR FILTRATION RATE 127 mL/min/1.73m??? Normal >=60 [facility] Comment on above: Order Comment: Speci men Type: BLOOD SPECIMEN Ordering Facility: [facility] Address: [address] [place] [address] Result Comment: Roseanne mated Glomerular Filtration Rate (eGFR) is calculated using the 2020 CKD-EPI creatinine equation. This equation utilizes serum creatinine, sex, and age as parameters. The creatinine assay has traceable calibration to isotope dilution-mass spectrometry. Refer to KDIGO guidelines for clinical interpretation. In patients with unstable renal function, e.g. those with acute kidney injury, the eGFR may not accurately reflect actual GFR. Performed By: #### 2 4323-8 #### [facility] CLIA [id number] [address] [facility] Glucose [Mass/Vol] 79 mg/dL Normal 74-99 [facility] Comment on above: Order Comment: Anti jacky Type: BLOOD SPECIMEN Ordering Facility: [facility] Address: [address] [place] [address] Result Comment: The [place] [employer] (ADA) provides guidance for cutoff values for fasting glucose and random glucose. The ADA defines fasting as no caloric intake for at least 8 hours. Fasting plasma glucose results between 100 to 125 mg/dL indicate increased risk for diabetes (prediabetes). Fasting plasma glucose results greater than or equal to 126 mg/dL meet the criteria for diagnosis of diabetes. In the absence of unequivocal hyperglycemia, results should be confirmed by repeat testing. In a patient with classic symptoms of hyperglycemia or hyperglycemic crisis, random plasma glucose results greater than or equal to 200 mg/dL meet the criteria for diagnosis of diabetes. Reference: Standards of Medical Care in Diabetes 2016, [place] [employer]. Diabetes Care. 2016.39(Suppl 1). Performed By: #### 2 4323-8 #### [facility] CLIA [id number] [address] [place] [address] [place] Potassium [Moles/Vol] 4.0 mmol/L Normal 3.7-5.1 [facility] Comment on above: Order Comment: Speci men Type: BLOOD SPECIMEN Ordering Facility: [facility] Address: [address] [place] [address] Performed By: #### 2 4323-8 #### [facility] CLIA [id number] [address] [place] [address] [place] Protein [Mass/Vol] 5.9 g/dL Low 6.3-8.0 [facility] Comment on above: Order Comment: Speci men Type: BLOOD SPECIMEN Ordering Facility: [facility] Address: [address] [address] Performed By: #### 2 4323-8 #### [facility] CLIA [id number] [address] [place] [address] [place] Sodium [Moles/Vol] 141 mmol/L Normal 136-144 [facility] Comment on above: Order Comment: Speci men Type: BLOOD SPECIMEN Ordering Facility: [facility] Address: [address] [address] Performed By: #### 2 4323-8 #### [facility] CLIA [id number] [address] [place] Urea nitrogen [Mass/Vol] 11 mg/dL Normal 7-21 [facility] Comment on above: Order Comment: Speci men Type: BLOOD SPECIMEN Ordering Facility: [facility] Address: [address] [place] [address] Performed By: #### 2 4323-8 #### [facility] IA [id number] [address] [place] [id number] [place] [address] [place] EBV capsid IgM Qn (S)on 10-06 EBV VCA IGM, QUAL Negative Normal Negative [facility] Comment on above: Order Comment: Speci [facility] Type: BLOOD SPECIMENOrdering Facility: [facility] Address: [address] [place] [address] Result Comment: No s erological evidence of recent EBV infection. Performed By: #### 7 853-5, 7886-5 ####[facility] LABCLIA [id number] [address] [place] HERPES SIMPLEX TYPE 1 AND 2 IGon 11-01-2022 HSV IGG 1 QUALITATIVE Negative Normal Negative [facility] Comment on above: [facility]: [facility] Type: BLOOD SPECIMENOrdering Facility: [facility] Address: [address] [place] [address] Result Comment: No e vidence of past history of HSV-1 infection. Negative result cannot exclude HSV-1 infection if the specimen collected 3-4 weeks after a primary episode of HSV-1 infection. Early institution of antiviral agents may delay or abrogate specific humoral response. Performed By: #### H SVG12 ####[facility] LABCLIA [id number] [address] [place] HSV IGG 2 QUALITATIVE Negative Normal Negative [facility] Comment on above: Order Comment: [facility] Type: BLOOD SPECIMENOrdering Facility: [facility] Address: [address] [place] [address] Result Comment: No e vidence of past history of HSV-2 infection. Negative result cannot exclude HSV-2 infection if the specimen collected 4-6 weeks after a primary episode of HSV-2 infection. Early institution of antiviral agents may delay or abrogate specific humoral response. Performed By: #### H SVG12 ####[facility] LABCLIA [id number] [address] [address] [facility] NUTRITIONon 11-01-2022 NUTRITION HNO ID: [id number] Author: Gale Juan RD Service: Nutrition Therapy Author Type: Registered Dietitian Type: Nutrition Filed: 11/01/2022 11:20 AM Note Text: NUTRITION THERAPY SCREEN NOTE SERVICE DATE: 11/01/2022 SERVICE TIME: 11:15 am Care Plan: Follow for diet advancement to goal Monitor and Evaluation: Meet greater than 75% of estimated needs Intake History: Nutrition Intake Prior to Admission: pt reported decreased appetite 2-3 days prior to admission Diet Orders (From admission, onward) Start Ordered 11/01/22 1100 DIET LIQUID START NOW Question: Liquid Diet Answer: CLEAR LIQUID 11/01/22 1058 Anthropometrics: Height: 157.5 cm (5' 2) Weight: 54.4 kg (120 lb) Usual Weight: 54.4 kg (120 lb) Body mass index is 21.95 kg/m?. MNT Billing: $ Initial Assessment: 1-15 minutes SIGNATURE: Gale Juan RD PATIENT NAME: Mikayla Blunt DATE: November 01, 2022 TIME: 11:19 AM [facility] 10-31-2022 ALLIED HEALTH HNO ID: [id number] Author: IDALIA Phillips Service: Radiology Author Type: Technologist Type: Allied Health Filed: 10/31/2022 8:14 PM Note Text: Radiology Service Progress Note PATIENT NAME: Mikayla Blunt DATE OF SERVICE: October 31, 2022 TIME: 8:14 PM PATIENT IDENTITY VERIFICATION COMPLETED USING TWO (2) IDENTIFIERS: Name and Date of confirmed by patient verbally and Name and Date of confirmed by identification band. FALL SCREENING: Has the patient had 2 falls in the last year or 1 fall with injury or currently using an Ambulatory Assistive Device (Walker, Cane, Wheelchair, Crutches, etc.)? Inpatient: Screened on floor PATIENT GENDER DATA: Female. status: Unknown status: N/A PATIENT RELEVANT IMPLANT DATA REVIEWED: Not Applicable RADIOLOGY DEPARTMENT: Ultrasound PERIPHERAL IV DATA: Not applicable SIGNED BY: IDALIA Phillips October 31, 2022 8:14 PM Normal [facility] CBC W Auto Differential pane l (Bld)on 10-31-2022 Basophils (Bld) [#/Vol] 10*3/uL Normal <0.11 [facility] Comment on above: Order Comment: Speci men Type: BLOOD SPECIMENOrdering Facility: [facility] Address: [address] [place] [address] Performed By: #### 5 7021-8 ####[facility] LABORATORYCLIA [id number] [place] [address] [place] Basophils/100 WBC (Bld) 0.3 % Normal [facility] Comment on above: Order Comment: Speci men Type: BLOOD SPECIMENOrdering Facility: [facility] Address: [address] [place] [address] Performed By: #### 5 7021-8 ####[facility] LABORATORYCLIA [id number] [place] [address] [place] Differential cell count method Nom (Bld) Auto Normal [facility] Comment on above: Order Comment: Speci men Type: BLOOD SPECIMENOrdering Facility: [facility] Address: [address] [place] [address] Performed By: #### 5 7021-8 ####[facility]ORATORYCLIA [id number] [place] [address] [place] Eosinophils (Bld) [#/Vol] 10*3/uL Normal <0.46 [facility] Comment on above: Order Comment: Speci men Type: BLOOD SPECIMENOrdering Facility: [facility] Address: [address] [place] [address] Performed By: #### 5 7021-8 ####[facility]ATORYCLIA [id number] [address] [place] Eosinophils/100 WBC (Bld) 0.0 % Normal [facility] Comment on above: Order Comment: Speci men Type: BLOOD SPECIMENOrdering Facility: [facility] Address: [address] [place] [address] Performed By: #### 5 7021-8 ####[facility]ORATORYCLIA [id number] [address] [place] Erythrocyte distribution width (RBC) [Ratio] 12.1 % Normal 11.5-15.0 [facility] Comment on above: Order Comment: Speci men Type: BLOOD SPECIMENOrdering Facility: [facility] Address: [address] [address] Performed By: #### 5 7021-8 ####[facility]ORATORYCLIA [id number] [place] [address] [place] [place] Hematocrit (Bld) [Volume fraction] 40.2 % Normal 36.0-46.0 [facility] Comment on above: Order Comment: Speci men Type: BLOOD SPECIMENOrdering Facility: [facility] Address: [address] [place] [address] Performed By: #### 5 7021-8 ####IVEY LABORATORYCLIA [id number] [place] [address] [place] Hemoglobin (Bld) [Mass/Vol] 13.3 g/dL Normal 11.5-15.5 [facility] Comment on above: Order Comment: Speci men Type: BLOOD SPECIMENOrdering Facility: [facility] Address: [address] [address] Performed By: #### 5 7021-8 ####IVEY LABORATORYCLIA [id number] [address] OF [place] Immature granulocytes (Bld) [#/Vol] 0.03 10*3/uL Normal <0.10 [facility] Comment on above: Order Comment: Speci men Type: BLOOD SPECIMENOrdering Facility: [facility] Address: [address] [address] Performed By: #### 5 7021-8 ####IVEY LABORATORYCLIA [id number] [address] [place] Immature granulocytes/100 WBC (Bld) 0.4 % Normal [facility] Comment on above: Order Comment: Speci men Type: BLOOD SPECIMENOrdering Facility: [facility] Address: [address] [address] Performed By: #### 5 7021-8 ####IVEY LABORATORYCLIA [id number] [address] [place] Lymphocytes (Bld) [#/Vol] 1.26 10*3/uL Normal 1.00-4.00 [facility] Comment on above: Order Comment: Speci men Type: BLOOD SPECIMENOrdering Facility: [facility] Address: [address] [place] [address] Performed By: #### 5 7021-8 ####IVEY LABORATORYCLIA [id number] [address] Lymphocytes/100 WBC (Bld) 17.5 % Normal [facility] Comment on above: Order Comment: Speci men Type: BLOOD SPECIMENOrdering Facility: [facility] Address: [address] [place] [address] Performed By: #### 5 7021-8 ####IVEY LABORATORYCLIA [id number] [address] STATES [facility] MCH (RBC) [Entitic mass] 28.5 pg Normal 26.0-34.0 [facility] Comment on above: Order Comment: Speci men Type: BLOOD SPECIMENOrdering Facility: [facility] Address: [address] [place] [address] Performed By: #### 5 7021-8 ####IVEY LABORATORYCLIA [id number] [address] MCHC (RBC) [Mass/Vol] 33.1 g/dL Normal 30.5-36.0 [facility] Comment on above: Order Comment: Speci men Type: BLOOD SPECIMENOrdering Facility: [facility] Address: [address] [place] [address] Performed By: #### 5 7021-8 ####IVEY LABORATORYCLIA [id number] [address] MCV (RBC) [Entitic vol] 86.1 fL Normal 80.0-100.0 [facility] Comment on above: Order Comment: Speci men Type: BLOOD SPECIMENOrdering Facility: [facility] Address: [address] [place] [address] Performed By: #### 5 7021-8 ####IVEY LABORATORYCLIA [id number] [address] [place] Monocytes (Bld) [#/Vol] 0.48 10*3/uL Normal <0.87 [facility] Comment on above: Order Comment: Speci men Type: BLOOD SPECIMENOrdering Facility: [facility] Address: [address] [place] [address] Performed By: #### 5 7021-8 ####IVEY LABORATORYCLIA [id number] [address] Monocytes/100 WBC (Bld) 6.7 % Normal [facility] Comment on above: Order Comment: Speci men Type: BLOOD SPECIMENOrdering Facility: [facility] Address: [address] [place] [address] Performed By: #### 5 7021-8 ####IVEY LABORATORYCLIA [id number] [address] [place] Neutrophils (Bld) [#/Vol] 5.41 10*3/uL Normal 1.45-7.50 [facility] Comment on above: Order Comment: Speci men Type: BLOOD SPECIMENOrdering Facility: [facility] Address: [address] [place] [address] Performed By: #### 5 7021-8 ####IVEY LABORATORYCLIA [id number] [address] Neutrophils/100 WBC (Bld) 75.1 % Normal [facility] Comment on above: Order Comment: Speci men Type: BLOOD SPECIMENOrdering Facility: [facility] Address: [address] [place] [address] Performed By: #### 5 7021-8 ####IVEY LABORATORYCLIA [id number] [address] [place] Nucleated RBC (Bld) [#/Vol] 10*3/uL Normal <0.01 [facility] Comment on above: Order Comment: Speci men Type: BLOOD SPECIMENOrdering Facility: [facility] Address: [address] [place] [address] Performed By: #### 5 7021-8 ####IVEY LABORATORYCLIA [id number] [place] [address] [place] Nucleated RBC/100 WBC (Bld) [Ratio] 0.0 /100 WBC Normal [facility] Comment on above: Order Comment: Speci men Type: BLOOD SPECIMENOrdering Facility: [facility] Address: [address] [place] [address] Performed By: #### 5 7021-8 ####IVEY LABORATORYCLIA [id number] [place] [address] [place] Platelet mean volume (Bld) [Entitic vol] 10.0 fL Normal 9.0-12.7 [facility] Comment on above: Order Comment: Speci men Type: BLOOD SPECIMENOrdering Facility: [facility] Address: [address] [place] [address] Performed By: #### 5 7021-8 ####IVEY LABORATORYCLIA [id number] [place] [address] [place] Platelets (Bld) [#/Vol] 193 10*3/uL Normal 150-400 [facility] Comment on above: Order Comment: Speci men Type: BLOOD SPECIMENOrdering Facility: [facility] Address: [address] [place] [address] Performed By: #### 5 7021-8 ####IVEY LABORATORYCLIA [id number] [place] [address] [place] RBC (Bld) [#/Vol] 4.67 10*6/uL Normal 3.90-5.20 [facility] Comment on above: Order Comment: Speci men Type: BLOOD SPECIMENOrdering Facility: [facility] Address: [address] [place] [address] Performed By: #### 5 7021-8 ####IVEY LABORATORYCLIA [id number] [address] [place] WBC (Bld) [#/Vol] 7.20 10*3/uL Normal 3.70-11.00 [facility] Comment on above: Order Comment: Speci men Type: BLOOD SPECIMENOrdering Facility: [facility] Address: [address] [place] [address] Performed By: #### 5 7021-8 ####IVEY LABORATORYCLIA [id number] [place] [address] [place] Comprehensive metabolic 2000 panelon 10-31-2022 Albumin [Mass/Vol] 4.6 g/dL Normal 3.9-4.9 [facility] Comment on above: Order Comment: Speci men Type: BLOOD SPECIMENOrdering Facility: [facility] Address: [address] [place] [address] Performed By: #### 2 4323-8 ####IVEY LABORATORYCLIA [id number] [address] [place] ALP [Catalytic activity/Vol] 134 U/L High 34-123 [facility] Comment on above: Order Comment: Speci men Type: BLOOD SPECIMENOrdering Facility: [facility] Address: [address] [place] [address] Performed By: #### 2 4323-8 ####IVEY LABORATORYCLIA [id number] [address] STATES [facility] ALT [Catalytic activity/Vol] 181 U/L High 7-38 [facility] Comment on above: Order Comment: Speci men Type: BLOOD SPECIMENOrdering Facility: [facility] Address: [address] [place] [address] Performed By: #### 2 4323-8 ####IVEY LABORATORYCLIA [id number] [place] [address] [place] Anion gap [Moles/Vol] 11 mmol/L Normal 9-18 [facility] Comment on above: Order Comment: Speci men Type: BLOOD SPECIMENOrdering Facility: [facility] Address: [address] [place] [address] Performed By: #### 2 4323-8 ####IVEY LABORATORYCLIA [id number] [place] [address] [place] AST [Catalytic activity/Vol] 96 U/L High 13-35 [facility] Comment on above: Order Comment: Speci men Type: BLOOD SPECIMENOrdering Facility: [facility] Address: [address] [place] [address] Performed By: #### 2 4323-8 ####IVEY LABORATORYCLIA [id number] [place] [address] [place] Bilirubin [Mass/Vol] 0.4 mg/dL Normal 0.2-1.3 [facility] Comment on above: Order Comment: Speci men Type: BLOOD SPECIMENOrdering Facility: [facility] Address: [address] [address] Performed By: #### 2 4323-8 ####IVEY LABORATORYCLIA [id number] [place] [address] [place] Calcium [Mass/Vol] 9.6 mg/dL Normal 8.5-10.2 [facility] Comment on above: Order Comment: Speci men Type: BLOOD SPECIMENOrdering Facility: [facility] Address: [address] [place] [address] Performed By: #### 2 4323-8 ####IVEY LABORATORYCLIA [id number] [place] [address] [place] Chloride [Moles/Vol] 105 mmol/L Normal 97-105 [facility] Comment on above: Order Comment: Speci men Type: BLOOD SPECIMENOrdering Facility: [facility] Address: [address] [place] [address] Performed By: #### 2 4323-8 ####IVEY LABORATORYCLIA [id number] [place] [address] [place] CO2 [Moles/Vol] 25 mmol/L Normal 22-30 [facility] Comment on above: Order Comment: Speci men Type: BLOOD SPECIMENOrdering Facility: [facility] Address: [address] [place] [address] Performed By: #### 2 4323-8 ####IVEY LABORATORYCLIA [id number] [place] [address] [place] Creatinine [Mass/Vol] 0.75 mg/dL Normal 0.58-0.96 [facility] Comment on above: Order Comment: Lou rico Type: BLOOD SPECIMENOrdering Facility: [facility] Address: [address] [place] [address] Performed By: #### 2 4323-8 ####IVEY LABORATORYCLIA [id number] [place] [address] [place] ESTIMATED GLOMERULAR FILTRATION RATE 117 mL/min/1.73m??? Normal >=60 [facility] Comment on above: Order Comment: Lou rico Type: BLOOD SPECIMENOrdering Facility: [facility] Address: [address] [place] [address] Result Comment: Roseanne mated Glomerular Filtration Rate (eGFR) is calculated using the 2020 CKD-EPI creatinine equation. This equation utilizes serum creatinine, sex, and age as parameters. The creatinine assay has traceable calibration to isotope dilution-mass spectrometry. Refer to KDIGO guidelines for clinical interpretation. In patients with unstable renal function, e.g. those with acute kidney injury, the eGFR may not accurately reflect actual GFR. Performed By: #### 2 4323-8 ####IVEY LABORATORYCLIA [id number] [place] [address] [place] Glucose [Mass/Vol] 89 mg/dL Normal 74-99 [facility] Comment on above: Order Comment: Lou jacky Type: BLOOD SPECIMENOrdering Facility: [facility] Address: [address] [place] [address] Result Comment: The [place] [employer] (ADA) provides guidance for cutoff values for fasting glucose and random glucose. The ADA defines fasting as no caloric intake for at least 8 hours. Fasting plasma glucose results between 100 to 125 mg/dL indicate increased risk for diabetes (prediabetes). Fasting plasma glucose results greater than or equal to 126 mg/dL meet the criteria for diagnosis of diabetes. In the absence of unequivocal hyperglycemia, results should be confirmed by repeat testing. In a patient with classic symptoms of hyperglycemia or hyperglycemic crisis, random plasma glucose results greater than or equal to 200 mg/dL meet the criteria for diagnosis of diabetes. Reference: Standards of Medical Care in Diabetes 2016, [place] [employer]. Diabetes Care. 2016.39(Suppl 1). Performed By: #### 2 4323-8 ####IVEY LABORATORYCLIA [id number] [place] [address] [place] Potassium [Moles/Vol] 4.0 mmol/L Normal 3.7-5.1 [facility] Comment on above: Order Comment: Speci men Type: BLOOD SPECIMENOrdering Facility: [facility] Address: [address] [address] Performed By: #### 2 4323-8 ####IVEY LABORATORYCLIA [id number] [place] [address] [place] Protein [Mass/Vol] 7.0 g/dL Normal 6.3-8.0 [facility] Comment on above: Order Comment: Speci men Type: BLOOD SPECIMENOrdering Facility: [facility] Address: [address] [place] [address] Performed By: #### 2 4323-8 ####IVEY LABORATORYCLIA [id number] [place] [address] [place] Sodium [Moles/Vol] 141 mmol/L Normal 136-144 [facility] Comment on above: Order Comment: Speci men Type: BLOOD SPECIMENOrdering Facility: [facility] Address: [address] [place] [address] Performed By: #### 2 4323-8 ####IVEY LABORATORYCLIA [id number] [place] [address] [place] Urea nitrogen [Mass/Vol] 12 mg/dL Normal 7-21 [facility] Comment on above: Order Comment: Speci men Type: BLOOD SPECIMENOrdering Facility: [facility] Address: [address] [address] Performed By: #### 2 4323-8 ####IVEY LABORATORYCLIA [id number] [place] [address] [place] D dimer FEU PPP-mCncon 10-31 Fibrin D-dimer FEU (PPP) [Mass/Vol] 200 ng/mL FEU Normal <500 [facility] Comment on above: Order Comment: Speci men Type: BLOOD SPECIMENOrdering Facility: [facility] Address: [address] [address] Performed By: #### 4 8065-7 ####HESSEL LABORATORYIA [id number] [address] [facility] ECG COMPLETEon 10-31-2022 ECG COMPLETE Ventricular Rate : 1 00 BPM Atrial Rate : 100 BPM P-R Interval : 164 ms QRS Duration : 84 ms Q-T Interval : 346 ms QTC Calculation(Bazett) : 446 ms Calculated P [place] : 112 degrees Calculated R [place] : 134 degrees Calculated T [place] : 144 degrees SUSPECT ARM LEAD REVERSAL, INTERPRETATION ASSUMES NO REVERSAL NORMAL SINUS RHYTHM LATERAL INFARCT , AGE UNDETERMINED POSSIBLE INFERIOR INFARCT , AGE UNDETERMINED ABNORMAL ECG NO PREVIOUS ECGS AVAILABLE Confirmed by LAISHA LANGLEY M.D. ([id number]) on 11/01/2022 3:45:08 PM NAME : MIKAYLA BLUNT PID : [id number] : 2000 Gender : Female Race : ORD : [id number] Procedure Date : Oct 31 2022 19:00:33 Edit Date : Nov 01 2022 15:45:11 Diagnosis: SUSPECT ARM LEAD REVERSAL, INTERPRETATION ASSUMES NO REVERSAL NORMAL SINUS RHYTHM LATERAL INFARCT , AGE UNDETERMINED POSSIBLE INFERIOR INFARCT , AGE UNDETERMINED ABNORMAL ECG NO PREVIOUS ECGS AVAILABLE Confirmed by LAISHA LANGLEY M.D. ([id number]) on 11/01/2022 3:45:08 PM Test Reason : Arrhythmia Location : 5 : 3S 0319 Overread By : LAISHA LANGLEY M.D. Edited By : LAISHA LANGLEY M.D. Referred By : , Acquired by : [id number], [facility] ED NOTEon 10-31-2022 ED NOTE HNO ID: [id number] Author: Jordyn Nelson RN Service: Nursing Author Type: Registered Nurse Type: ED Notes Filed: 10/31/2022 5:53 PM Note Text: Attempted to call report to 3S. RN never came to phone after 10 minutes waiting. [facility] ED NOTE HNO ID: [id number] Author: Sandy Wilkins RN Service: ? Author Type: Registered Nurse Type: ED Notes Filed: 10/30/2022 11:30 PM Note Text: Pt received written and verbal discharge instructions. Pt verbalizes understanding. All questions answered. Pt education on medications and dosages. Pt verbalized understanding. Instructed pt to follow up with PCP. No acute distress noted. Instructed pt to come back to Emergency Room if symptoms worsen. Pt verbalized understanding. All belongings with pt. [facility] ED PROV NOTEon 10-31-2022 ED PROV NOTE HNO ID: [id number] Author: Gibran North MD Service: Emergency Medicine Author Type: Physician Type: ED Provider Notes Filed: 10/31/2022 5:48 PM Note Text: ED Provider Note Patient Name: iMkayla Blunt : 2000 SERVICE DATE: 10/31/22 History Patient presents with: Abdominal Pain: RUQ abd pain since last night, was evaluated in ED last night then seen in Dr office this morning but not feeling any better having some nausea with pain as well 22-year-old female. Comes to the emergency department today for ongoing abdominal pain. Reports that she had surgery on her hammertoes last Friday which is nearly a week ago. Was seen yesterday for similar pain. Had a normal CT scan except for large stool burden noted. Was taken off MiraLAX at that time and started on senna. Patient has taken 1 dose of senna so far. Has persistent pain. Went to follow-up appointment with PCP office nurse practitioner and was referred back to the emergency department. Reports ongoing right upper quadrant abdominal pain. Denies any vaginal bleeding or discharge. Denies sexual activity. Set for next menstrual cycle to start next week. Apparently tried an enema at home. Unsuccessful. PAST MEDICAL HISTORY Diagnosis Date - Acquired mallet toe of left foot - Chronic sinusitis - Delayed emergence from anesthesia - 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) off AEDs since 2017 - GERD (gastroesophageal reflux disease) - Hypertension 04/11/2020 - Mild intermittent asthma without complication - MT (mallet toe), right - Narcolepsy without cataplexy - Nonallergic rhinitis - PMH - PAST MEDICAL HISTORY OF seizure - POTS (postural orthostatic tachycardia syndrome) PAST SURGICAL HISTORY Procedure Laterality Date - DENTAL SURGERY HX 2011 Simple extraction of primary teeth #A, #B, #C, #H, #I, #J, #M, #N, and #R. 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 [facility] - PAST SURGICAL HISTORY OF 11/21/2003 tear duct surgery bilateral - PAST SURGICAL HISTORY OF 05/2022 Correction of second, third, and fourth toes, left foot - REMOVE TONSIL AND ADENOI UNDER AGE 12 02/12/2010 FAMILY HISTORY Problem Relation Age of Onset - Allergies Father - Asthma Brother - Allergies Maternal Grandmother - Hypertension Maternal Grandfather - Allergies Maternal Grandfather - Heart Maternal Grandfather mat side/pat side Social History Tobacco Use - Smoking status: Never Passive exposure: Never - Smokeless tobacco: Never Vaping Use - Vaping Use: Never used Substance and Sexual Activity - Alcohol use: No - Drug use: No - Sexual activity: Never ALLERGIES Allergen Reactions - Hydrocodone-Acetami* Swelling - Latex Swelling - Omnicef [Cefdinir] Swelling - Versed [Midazolam H* Mental Status Change Pulling out IV's, extremely confused and restless, getting on hands and knees - Penicillins Rash - Gluten GI Upset Review of Systems Constitutional: Negative for chills, diaphoresis, fatigue and fever. HENT: Negative for congestion, ear pain, sinus pain and sore throat. Eyes: Negative for photophobia, pain, redness and visual disturbance. Respiratory: Negative for cough, chest tightness and shortness of breath. Cardiovascular: Negative for chest pain, palpitations and leg swelling. Gastrointestinal: Positive for abdominal pain and nausea. Negative for abdominal distention, constipation, diarrhea and vomiting. Genitourinary: Negative for difficulty urinating, dysuria, flank pain, frequency and urgency. Musculoskeletal: Negative for back pain, neck pain and neck stiffness. Skin: Negative for color change, rash and wound. Neurological: Negative for dizziness, syncope, light-headedness and headaches. Psychiatric/Behavioral: Negative for agitation, behavioral problems and confusion. Physical Exam Vitals [10/31/22 1228] BP Pulse Temp Temp src Resp SpO2 Weight Height 135/83 82 37 ?C (98.6 ?F) Oral 18 100 % 54.4 kg (120 lb) -- Physical Exam Vitals and nursing note reviewed. Constitutional: Appearance: She is well-developed. She is not diaphoretic. HENT: Head: Normocephalic and atraumatic. Right Ear: External ear normal. Left Ear: External ear normal. Eyes: General: No scleral icterus. Right eye: No discharge. Left eye: No discharge. Conjunctiva/sclera: Conjunctivae normal. Pupils: Pupils are equal, round, and reactive to light. Neck: Vascular: No JVD. Trachea: No tracheal deviation. Cardiovascular: Rate and Rhythm: Normal rate and regular rhythm. Heart sounds: Normal heart sounds. No murmur heard. No friction rub. No gallop. Pulmonary: Effort: Pulmonary effort is normal. No respiratory distress. Breath sounds: Normal breath sounds. No stridor. No wheezing or rales. Chest: Chest wall: No tenderness. Abdominal: General: Bowel sounds are normal. There is no distension. Palpations: Abdomen is soft. (more content not included)... Normal [facility] ED PROV NOTE HNO ID: [id number] Author: Nash Villalobos PA-C Service: ? Author Type: Physician [employer] Driver Type: ED Provider Notes Filed: 10/30/2022 11:18 PM Note Text: ED Provider Note Patient Name: Mikayla Blunt : 2000 SERVICE DATE: 10/30/22 History Patient presents with: Abdominal Pain Nausea AND Vomiting 22-year-old female with a past medical history of narcolepsy, GERD, status post hammertoe surgery, presents to the ED today for abdominal pain along with nausea and vomiting, patient states over the last couple days she has had abdominal pain and constipation, she has been doing [id number] stool softeners and enema without any improvement, she had 1 small bowel movement today, she complains of nausea and burping, denies any fever, she did throw up once a day. Denies any other complaints PAST MEDICAL HISTORY Diagnosis Date Acquired [...] Vaping Use Vaping Use: Never used Substance and Sexual Activity Alcohol use: No Drug use: No Sexual activity: Never ALLERGIES Allergen Reactions Hydrocodone-Acetami* Swelling Latex Swelling Omnicef [Cefdinir] Swelling Versed [Midazolam H* Mental Status Change Pulling out IV's, extremely confused and restless, getting on hands and knees Penicillins Rash Gluten GI Upset Review of Systems Constitutional: Negative for chills and fever. HENT: Negative for drooling, ear discharge, hearing loss, mouth sores, postnasal drip, sneezing and voice change. Eyes: Negative for photophobia and visual disturbance. Respiratory: Negative for chest tightness, shortness of breath and wheezing. Cardiovascular: Negative for chest pain and palpitations. Gastrointestinal: Positive for abdominal pain, constipation, nausea and vomiting. Negative for abdominal distention, anal bleeding, blood in stool, diarrhea and rectal pain. Genitourinary: Negative for dysuria, flank pain, hematuria, pelvic pain, vaginal bleeding and vaginal discharge. Musculoskeletal: Negative for arthralgias, neck pain and neck stiffness. Skin: Negative for color change. Neurological: Negative for dizziness, numbness and headaches. Psychiatric/Behavioral: Negative for agitation and confusion. The patient is not hyperactive. Physical Exam Vitals [10/30/222017] BP Pulse Temp Temp src Resp SpO2 Weight Height 122/107 (!) 120 37.2 ?C (99 ?F) Temporal 20 100 % 54.4 kg (120 lb) 1.575 m (5' 2) Physical Exam Constitutional: Appearance: She is well-developed. HENT: Head: Normocephalic and atraumatic. Nose: Nose normal. Eyes: Conjunctiva/sclera: Conjunctivae normal. Cardiovascular: Rate and Rhythm: Normal rate and regular rhythm. Pulmonary: Effort: Pulmonary effort is normal. No respiratory distress. Breath sounds: Normal breath sounds. No wheezing. Abdominal: General: Abdomen is flat. Bowel sounds are normal. Palpations: Abdomen is soft. Tenderness: There is abdominal tenderness in the right upper quadrant and right lower quadrant. Musculoskeletal: General: Normal range of motion. Cervical back: Normal range of motion and neck supple. Skin: General: Skin is warm and dry. Neurological: Mental Status: She is alert and oriented to person, place, and time. Psychiatric: Behavior: Behavior normal. Diagnostic Testing ED Labs Ordered and Reviewed VENOUS BLOOD GASES - Abnormal; Notable for the following components: Result Value Ref Range pO2, Venous <31 (*) 35 - 45 mmHg Oxyhemoglobin, Venous 30 (*) 60 - 85 % All other components within normal limits COMP METABOLIC PANEL - Abnormal; Notable for the following components: Albumin 5.0 (*) 3.9 - 4.9 g/dL Alkaline Phosphatase 178 (*) 34 - 123 U/L AST 120 (*) 13 - 35 U/L ALT 217 (*) 7 - 3 (more content not included)... Normal [facility] HCG QUAL BLDon 10-31-2022 HCG, QUALITATIVE Negative Normal Negative [facility] Comment on above: Order Comment: Speci men Type: BLOOD SPECIMENOrdering Facility: [facility] Address: [address] [place], [place] [id number] Performed By: #### H ####HESSEL LABORATORYCLIA [id number] [address] HISTORY PHYSICALon HISTORY PHYSICAL HNO ID: [id number] Author: Jacoby Liriano PA-C Service: Hospital Medicine Author Type: Physician Commercial Collections Driver Type: HANDP Filed: 10/31/2022 9:23 PM Note Text: Attestation signed by Chiquita Stahl MD at 11/05/2022 9:15 PM I reviewed the history and physical obtained and documented by the JONAS and I personally participated in the chinchilla components. Chiquita Stahl MD DEPARTMENT OF [facility] MEDICINE HISTORY AND PHYSICAL EXAM SERVICE DATE: 10/31/2022 Code Status: Not on file SERVICE TIME: 5:48 PM Primary Care Physician: Eileen Nair, NIGHT AND WEEKEND COVERAGE: HESSEL COVERAGE: Days: [phone], please page attending physician. Nights: [phone], please page [facility] Night coverage pager [phone]. Subjective CHIEF COMPLAINT: RUQ HPI: This is a 22 year old female with PMHx of asthma, epilepsy, narcolepsy without cataplexy, GERD, migraines, and POTS who presents to ED with RUQ pain. Patient had hammertoe surgery on 10/25 and has been taking 4 g of Tylenol every 8 hours daily, with last dose being yesterday morning. She has also been taking Tramadol, last dose was 10/28. She has been having constipation since the surgery and developed RUQ 10/29 with increased in severity last evening with associated nausea and vomiting. She describes it as sharp and cramping, 10/10 pain. She came to the ED for an evaluation on 10/[address] abdomen showed a 3 cm ovarian cyst of R ovary and liver hemangioma. She was found to have elevated LFT's which was thought to be caused by the amount of Tylenol she had been taking since the surgery. She was discharged home on Zofran and Senna and told to follow up with GI. She tells me she has been taking Miralax and had an enema yesterday. She last had a small BM after the enema yesterday, otherwise has not had a normal BM since 10/24, before the surgery. She took her first dose of Senna this morning. She is passing some gas. She reports continued pain, nausea, and vomiting today. She also reports intermittent low grade fevers of 99F. She is unable to tolerate food. She also reports that movement makes the pain worse. She was seen by her PCP today, who after seeing the large amount of constipation on her CT, instructed her to come to the ED for further work up. She denies tobacco use, ETOH use, or illicit drug use. She also denies chills, chest pain, shortness of breath, dysuria, or leg swelling. In ED, VSS. AP 134. AST 96. ALT 181. CT ABD PEL: There is a 2.8 x 4.4 cm hypoattenuating mass with peripheral nodular discontinuous enhancement in the caudate, this is compatible with a hemangioma. cm lesion with crenulated enhancing border arising from the right ovary. Trace pelvic free fluid. She was given Toradol, IVF, and Zofran. PAST MEDICAL HISTORY Diagnosis Date Acquired mallet [...] Topics Alcohol use: No Drug use: No PRIOR TO ADMISSION MEDICATIONS: (Not in a hospital admission) ALLERGIES Allergen Reactions Hydrocodone-Acetami* Swelling Latex Swelling Omnicef [Cefdinir] Swelling Versed [Midazolam H* Mental Status Change Pulling out IV's, extremely confused and restless, getting on hands and knees Penicillins Rash Gluten GI Upset REVIEW OF SYSTEM: GENERAL: Positive for low grade fevers and appetite change. No chills or fatigue. HEENT: Negative for frequent or significant headaches, No changes in hearing or vision, no nose bleeds or other nasal problems NECK: Negative for lumps, goiter, pain and significant neck swelling RESPIRATORY: Negative for co (more content not included)... Normal [facility] Hepatic function 2000 panelo n 10-31-2022 Albumin [Mass/Vol] 4.2 g/dL Normal 3.9-4.9 [facility] Comment on above: Order Comment: Lou rico Type: BLOOD SPECIMENOrdering Facility: [facility] Address: [address] [place] [address] Performed By: #### 2 4325-3, 3040-3 ####IVEY LABORATORYCLIA [id number] [address] ALP [Catalytic activity/Vol] 121 U/L Normal 34-123 [facility] Comment on above: Order Comment: Lou rico Type: BLOOD SPECIMENOrdering Facility: [facility] Address: [address] [place] [address] Performed By: #### 2 4325-3, 3040-3 ####IVEY LABORATORYCLIA [id number] [address] ALT [Catalytic activity/Vol] 164 U/L High 7-38 [facility] Comment on above: Order Comment: Lou rico Type: BLOOD SPECIMENOrdering Facility: [facility] Address: [address] [place] [address] Performed By: #### 2 4325-3, 3040-3 ####IVEY LABORATORYCLIA [id number] [address] AST [Catalytic activity/Vol] 84 U/L High 13-35 [facility] Comment on above: Order Comment: Lou rico Type: BLOOD SPECIMENOrdering Facility: [facility] Address: [address] [place] [address] Performed By: #### 2 4325-3, 3040-3 ####IVEY LABORATORYCLIA [id number] [address] Bilirubin [Mass/Vol] 0.5 mg/dL Normal 0.2-1.3 [facility] Comment on above: Order Comment: Speci men Type: BLOOD SPECIMENOrdering Facility: [facility] Address: [address] [place] [address] Performed By: #### 2 4325-3, 3040-3 ####IVEY LABORATORYCLIA [id number] [address] Bilirubin.conjugated [Mass/Vol] mg/dL Normal <0.2 [facility] Comment on above: Order Comment: Speci men Type: BLOOD SPECIMENOrdering Facility: [facility] Address: [address] [place] [address] Performed By: #### 2 4325-3, 3040-3 ####IVEY LABORATORYCLIA [id number] [address] Protein [Mass/Vol] 6.5 g/dL Normal 6.3-8.0 [facility] Comment on above: Order Comment: Speci men Type: BLOOD SPECIMENOrdering Facility: [facility] Address: [address] [place] [address] Performed By: #### 2 4325-3, 3040-3 ####IVEY LABORATORYCLIA [id number] [address] [facility] Lipase SerPl-cCncon 11-01-19 23 Lipase [Catalytic activity/Vol] 26 U/L Normal 16-61 [facility] Comment on above: Order Comment: Speci men Type: BLOOD SPECIMENOrdering Facility: [facility] Address: [address] [place] [address] Performed By: #### 2 4325-3, 3040-3 ####IVEY LABORATORYCLIA [id number] [place] [address] [place] US ABD RIGHT UPPER QUADRANTo n 10-31-2022 US ABD RIGHT UPPER QUADRANT * * *Final Report* * * DATE OF EXAM: Oct 31 2022 7:41PM MDU 1032 - US ABD RIGHT UPPER QUADRANT / PROCEDURE REASON: RUQ abdominal pain, no prior imaging * * * * Physician Interpretation * * * * EXAMINATION: RIGHT UPPER QUADRANT ULTRASOUND CLINICAL HISTORY: Right upper quadrant pain TECHNIQUE: Sonography of the right upper quadrant was performed. Images were obtained and stored in a permanent archive. MQ: URUQ_2 COMPARISON: CT 10/30/2022 RESULT: Pancreas: Not seen Liver: Echotexture: Normal, homogeneous. Echogenicity: Normal Surface contour: Smooth Lesions: 4.0 x 2.9 x 2.7 cm echogenic lesion in the region of the caudate lobe, previously characterized as hemangioma on recent CT Biliary: No intrahepatic biliary duct dilation. CBD: 0.2 cm at the hilum. Gallbladder: Normal caliber, slightly distended -Contents: No cholelithiasis -Wall: Normal -Other: No pericholecystic fluid. Right Kidney: No hydronephrosis in the upper pole; the lower poles are visualized. Ascites: None. IMPRESSION: 1. No evidence of cholecystitis 2. 4.0 cm lesion in the region of the caudate lobe, previously characterized as hemangioma Secure Software Assessor: [facility] Transcribe Date/Time: Oct 31 2022 9:21P Dictated by : MIGDALIA LARA MD This examination was interpreted and the report reviewed and electronically signed by: MIGDALIA LARA MD on Oct 31 2022 9:27PM EST [id number] [facility] 10-30-2022 [facility] HNO ID: [id number] Author: Kayleigh Fox, CT Service: ? Author Type: Technologist Type: Allied Health Filed: 10/30/2022 9:59 PM Note Text: Radiology Service Progress Note DATE OF SERVICE: October 30, 2022 TIME: 9:59 PM PATIENT IDENTITY VERIFICATION COMPLETED USING TWO (2) STANDARD IDENTIFIERS: Name and Date of confirmed by patient verbally and Name and Date of confirmed by identification band. FALL SCREENING: Has the patient had 2 falls in the last year or 1 fall with injury or currently using an Ambulatory Assistive Device (Walker, Cane, Wheelchair, Crutches, etc.)? Emergency Room Patient: Screened in ED PATIENT GENDER DATA: Female. status: : No status: NO. PATIENT RELEVANT IMPLANT DATA REVIEWED: Not Applicable ALLERGIES: Reviewed and unchanged CONTRAST ALLERGY: NO. EXAM: CT -CONTRAST INDUCED NEPHROPATHY RISK FACTORS: Not applicable CREATININE: Creatinine Date Value Ref Range Status 10/30/2022 0.68 0.58 - 0.96 mg/dL Final 07/26/2021 0.68 0.58 - 0.96 mg/dL Final 04/10/2020 0.69 0.58 - 0.96 mg/dL Final Estimated Glomerular Filtration Rate Date Value Ref Range Status 10/30/2022 128 >=60 mL/min/1.73m? Final Comment: Estimated Glomerular Filtration Rate (eGFR) is calculated using the 2020 CKD-EPI creatinine equation. This equation utilizes serum creatinine, sex, and age as parameters. The creatinine assay has traceable calibration to isotope dilution-mass spectrometry. Refer to KDIGO guidelines for clinical interpretation. In patients with unstable renal function, e.g. those with acute kidney injury, the eGFR may not accurately reflect actual GFR. eGFR- Date Value Ref Range Status 07/26/2021 >60 Final P.O.C.T. RESULTS: POC done: Yes, See Lab Tab October 30, 2022 TREATMENT: N/A PERIPHERAL IV DATA: Inpatient - refer to [facility] documentation RADIOLOGY DEPARTMENT: CT; Exam(s) Completed: Abdomen/Pelvis SIGNATURE: IDALIA Lucero PATIENT NAME: Mikayla Blunt DATE: October 30, 2022 TIME: 9:59 PM Normal [facility] BETA HCG, QUANTITATIVE FOR Oracio Brown 10-30-2022 HCG.beta subunit Qn m[IU]/mL Normal <5.0 [facility] Comment on above: Order Comment: Speci men Type: BLOOD SPECIMENOrdering Facility: [facility] Address: [address] [place] [address] Result Comment: Nega tive Performed By: #### H CGED, 69442-8, 3040-3 ####IVEY LABORATORYCLIA [id number] [place] [address] [place] CBC W Auto Differential pane l (Bld)on 10-30-2022 Basophils (Bld) [#/Vol] 10*3/uL Normal <0.11 [facility] Comment on above: Order Comment: Speci men Type: BLOOD SPECIMENOrdering Facility: [facility] Address: [address] [place] [address] Performed By: #### 5 7021-8 ####IVEY LABORATORYCLIA [id number] [address] [place] Basophils/100 WBC (Bld) 0.2 % Normal [facility] Comment on above: Order Comment: Speci men Type: BLOOD SPECIMENOrdering Facility: [facility] Address: [address] [address] Performed By: #### 5 7021-8 ####IVEY LABORATORYCLIA [id number] [address] Differential cell count method Nom (Bld) Auto Normal [facility] Comment on above: Order Comment: Speci men Type: BLOOD SPECIMENOrdering Facility: [facility] Address: [address] [address] Performed By: #### 5 7021-8 ####IVEY LABORATORYCLIA [id number] [place] [address] [place] Eosinophils (Bld) [#/Vol] 10*3/uL Normal <0.46 [facility] Comment on above: Order Comment: Speci men Type: BLOOD SPECIMENOrdering Facility: [facility] Address: [address] [address] Performed By: #### 5 7021-8 ####IVEY LABORATORYCLIA [id number] [address] Eosinophils/100 WBC (Bld) 0.0 % Normal [facility] Comment on above: Order Comment: Speci men Type: BLOOD SPECIMENOrdering Facility: [facility] Address: [address] [address] Performed By: #### 5 7021-8 ####IVEY LABORATORYCLIA [id number] [address] Erythrocyte distribution width (RBC) [Ratio] 11.9 % Normal 11.5-15.0 [facility] Comment on above: Order Comment: Speci men Type: BLOOD SPECIMENOrdering Facility: [facility] Address: [address] [address] Performed By: #### 5 7021-8 ####IVEY LABORATORYCLIA [id number] [address] [place] Hematocrit (Bld) [Volume fraction] 43.7 % Normal 36.0-46.0 [facility] Comment on above: Order Comment: Speci men Type: BLOOD SPECIMENOrdering Facility: [facility] Address: [address] [place] [address] Performed By: #### 5 7021-8 ####IVEY LABORATORYCLIA [id number] [place] [address] [place] Hemoglobin (Bld) [Mass/Vol] 15.0 g/dL Normal 11.5-15.5 [facility] Comment on above: Order Comment: Speci men Type: BLOOD SPECIMENOrdering Facility: [facility] Address: [address] [place] [address] Performed By: #### 5 7021-8 ####IVEY LABORATORYCLIA [id number] [place] [address] [place] Immature granulocytes (Bld) [#/Vol] 0.03 10*3/uL Normal <0.10 [facility] Comment on above: Order Comment: Speci men Type: BLOOD SPECIMENOrdering Facility: [facility] Address: [address] [place] [address] Performed By: #### 5 7021-8 ####IVEY LABORATORYCLIA [id number] [address] [place] Immature granulocytes/100 WBC (Bld) 0.4 % Normal [facility] Comment on above: Order Comment: Speci men Type: BLOOD SPECIMENOrdering Facility: [facility] Address: [address] [place] [address] Performed By: #### 5 7021-8 ####IVEY LABORATORYCLIA [id number] [place] [address] [place] Lymphocytes (Bld) [#/Vol] 1.22 10*3/uL Normal 1.00-4.00 [facility] Comment on above: Order Comment: Speci men Type: BLOOD SPECIMENOrdering Facility: [facility] Address: [address] [place] [address] Performed By: #### 5 7021-8 ####IVEY LABORATORYCLIA [id number] [address] Lymphocytes/100 WBC (Bld) 14.4 % Normal [facility] Comment on above: Order Comment: Speci men Type: BLOOD SPECIMENOrdering Facility: [facility] Address: [address] [place] [address] Performed By: #### 5 7021-8 ####IVEY LABORATORYCLIA [id number] [address] MCH (RBC) [Entitic mass] 29.0 pg Normal 26.0-34.0 [facility] Comment on above: Order Comment: Speci men Type: BLOOD SPECIMENOrdering Facility: [facility] Address: [address] [place] [address] Performed By: #### 5 7021-8 ####IVEY LABORATORYCLIA [id number] [address] STATES [facility] MCHC (RBC) [Mass/Vol] 34.3 g/dL Normal 30.5-36.0 [facility] Comment on above: Order Comment: Speci men Type: BLOOD SPECIMENOrdering Facility: [facility] Address: [address] [place] [address] Performed By: #### 5 7021-8 ####IVEY LABORATORYCLIA [id number] [address] MCV (RBC) [Entitic vol] 84.5 fL Normal 80.0-100.0 [facility] Comment on above: Order Comment: Speci men Type: BLOOD SPECIMENOrdering Facility: [facility] Address: [address] [place] [address] Performed By: #### 5 7021-8 ####IVEY LABORATORYCLIA [id number] [address] Monocytes (Bld) [#/Vol] 0.44 10*3/uL Normal <0.87 [facility] Comment on above: Order Comment: Speci men Type: BLOOD SPECIMENOrdering Facility: [facility] Address: [address] [address] Performed By: #### 5 7021-8 ####IVEY LABORATORYCLIA [id number] [place] [address] [place] Monocytes/100 WBC (Bld) 5.2 % Normal [facility] Comment on above: Order Comment: Speci men Type: BLOOD SPECIMENOrdering Facility: [facility] Address: [address] [place] [address] Performed By: #### 5 7021-8 ####IVEY LABORATORYCLIA [id number] [place] [address] [place] Neutrophils (Bld) [#/Vol] 6.79 10*3/uL Normal 1.45-7.50 [facility] Comment on above: Order Comment: Speci men Type: BLOOD SPECIMENOrdering Facility: [facility] Address: [address] [place] [address] Performed By: #### 5 7021-8 ####IVEY LABORATORYCLIA [id number] [place] [address] [place] Neutrophils/100 WBC (Bld) 79.8 % Normal [facility] Comment on above: Order Comment: Speci men Type: BLOOD SPECIMENOrdering Facility: [facility] Address: [address] [place] [address] Performed By: #### 5 7021-8 ####IVEY LABORATORYCLIA [id number] [place] [address] [place] Nucleated RBC (Bld) [#/Vol] 10*3/uL Normal <0.01 [facility] Comment on above: Order Comment: Speci men Type: BLOOD SPECIMENOrdering Facility: [facility] Address: [address] [place] [address] Performed By: #### 5 7021-8 ####IVEY LABORATORYCLIA [id number] [place] [address] [place] Nucleated RBC/100 WBC (Bld) [Ratio] 0.0 /100 WBC Normal [facility] Comment on above: Order Comment: Speci men Type: BLOOD SPECIMENOrdering Facility: [facility] Address: [facility] [address] [place] [address] Performed By: #### 5 7021-8 ####IVEY LABORATORYCLIA [id number] [address] [place] [facility] Platelet mean volume (Bld) [Entitic vol] 9.7 fL Normal 9.0-12.7 [facility] Comment on above: Order Comment: Speci men Type: BLOOD SPECIMENOrdering Facility: [facility] Address: [address] [address] Performed By: #### 5 7021-8 ####IVEY LABORATORYCLIA [id number] [address] [place] Platelets (Bld) [#/Vol] 199 10*3/uL Normal 150-400 [facility] Comment on above: Order Comment: Speci men Type: BLOOD SPECIMENOrdering Facility: [facility] Address: [address] [place] [address] Performed By: #### 5 7021-8 ####IVEY LABORATORYCLIA [id number] [place] [address] [place] RBC (Bld) [#/Vol] 5.17 10*6/uL Normal 3.90-5.20 [facility] Comment on above: Order Comment: Speci men Type: BLOOD SPECIMENOrdering Facility: [facility] Address: [address] [place] [address] Performed By: #### 5 7021-8 ####IVEY LABORATORYCLIA [id number] [address] [place] WBC (Bld) [#/Vol] 8.50 10*3/uL Normal 3.70-11.00 [facility] Comment on above: Order Comment: Speci men Type: BLOOD SPECIMENOrdering Facility: [facility] Address: [address] [place] [address] Performed By: #### 5 7021-8 ####IVEY LABORATORYCLIA [id number] [place] [address] [place] ABD/PEL W IVCONon 04-26-[address] ABD/PEL W IVCON * * *Final Report* * * DATE OF EXAM: Oct 30 2022 9:58PM [facility] [place] [facility] [place] ABD/PEL W IVCON / PROCEDURE REASON: Abdominal abscess/infection suspected * * * * Physician Interpretation * * * * EXAMINATION: CT ABDOMEN AND PELVIS WITH IV CONTRAST CLINICAL HISTORY: Abdominal pain, nausea and vomiting TECHNIQUE: CT of the abdomen and pelvis was performed using standard technique, scanning from just above the dome of the diaphragm to the symphysis pubis. MQ: CTAP_3 Contrast: IV: 100 ml of Omnipaque 350 : ml of CT Radiation dose: Integrated Dose-length product (DLP) for this visit = 160.45 mGy*cm. CT Dose Reduction Employed: Automated exposure control(AEC) and iterative recon COMPARISON: None. RESULT: Liver: There is a 2.8 x 4.4 [...] Tissues: No significant finding. Lower thorax: Unremarkable. Dope Edger (topogram) images: No additional findings. IMPRESSION: 3 cm lesion with crenulated enhancing border arising from the right ovary. This likely represents a corpus luteal cyst. Secure Software Assessor: [employer] Transcribe Date/Time: Oct 30 2022 10:38P Dictated by : LAISHA MCKEON MD This examination was interpreted and the report reviewed and electronically signed by: LAISHA MCKEON MD on Oct 30 2022 10:48PM EST [id number] Normal [facility] Comprehensive metabolic 2000 panelon 10-30-2022 Albumin [Mass/Vol] 5.0 g/dL High 3.9-4.9 [facility] Comment on above: Order Comment: Speci men Type: BLOOD SPECIMENOrdering Facility: [facility] Address: [address] [place] [id number] Performed By: #### H CGED, 05296-0, 3040-3 ####IVEY LABORATORYCLIA [id number] [place] [address] [place] ALP [Catalytic activity/Vol] 178 U/L High 34-123 [facility] Comment on above: Order Comment: Speci men Type: BLOOD SPECIMENOrdering Facility: [facility] Address: [address] [place] [address] Performed By: #### H CGED, 58964-0, 0-3 ####IVEY LABORATORYCLIA [id number] [place] [address] [place] ALT [Catalytic activity/Vol] 217 U/L High 7-38 [facility] Comment on above: Order Comment: Speci men Type: BLOOD SPECIMENOrdering Facility: [facility] Address: [address] [place] [address] Performed By: #### H CGED, , 3039-3 ####IVEY LABORATORYCLIA [id number] [place] [address] [place] Anion gap [Moles/Vol] 12 mmol/L Normal 9-18 [facility] Comment on above: Order Comment: Speci men Type: BLOOD SPECIMENOrdering Facility: [facility] Address: [address] [place] [address] Performed By: #### H CGED, , 0-3 ####IVEY LABORATORYCLIA [id number] [place] [address] [place] AST [Catalytic activity/Vol] 120 U/L High 13-35 [facility] Comment on above: Order Comment: Speci men Type: BLOOD SPECIMENOrdering Facility: [facility] Address: [address] [place] [address] Performed By: #### H CGED, 36225-4, 3040-3 ####IVEY LABORATORYCLIA [id number] [place] [address] [place] Bilirubin [Mass/Vol] 0.3 mg/dL Normal 0.2-1.3 [facility] Comment on above: Order Comment: Speci men Type: BLOOD SPECIMENOrdering Facility: [facility] Address: [address] [address] Performed By: #### H CGED, , 3039-3 ####IVEY LABORATORYCLIA [id number] [place] [address] [place] Calcium [Mass/Vol] 9.9 mg/dL Normal 8.5-10.2 [facility] Comment on above: Order Comment: Speci men Type: BLOOD SPECIMENOrdering Facility: [facility] Address: [address] [address] Performed By: #### H CGED, , 3039-3 ####IVEY LABORATORYCLIA [id number] [place] [address] [place] Chloride [Moles/Vol] 102 mmol/L Normal 97-105 [facility] Comment on above: Order Comment: Speci men Type: BLOOD SPECIMENOrdering Facility: [facility] Address: [address] [address] Performed By: #### H CGED, , 3039-3 ####IVEY LABORATORYCLIA [id number] [place] [address] [place] CO2 [Moles/Vol] 25 mmol/L Normal 22-30 [facility] Comment on above: Order Comment: Speci men Type: BLOOD SPECIMENOrdering Facility: [facility] Address: [address] Performed By: #### H CGED, , 3039-3 ####IVEY LABORATORYCLIA [id number] [place] [address] [place] Creatinine [Mass/Vol] 0.68 mg/dL Normal 0.58-0.96 [facility] Comment on above: Order Comment: Speci men Type: BLOOD SPECIMENOrdering Facility: [facility] Address: [address] [address] Performed By: #### H CGED, , 3039-3 ####IVEY LABORATORYCLIA [id number] [place] [address] [place] ESTIMATED GLOMERULAR FILTRATION RATE 128 mL/min/1.73m??? Normal >=60 [facility] Comment on above: Order Comment: Lou rico Type: BLOOD SPECIMENOrdering Facility: [facility] Address: [address] [place] [address] Result Comment: Roseanne mated Glomerular Filtration Rate (eGFR) is calculated using the 2020 CKD-EPI creatinine equation. This equation utilizes serum creatinine, sex, and age as parameters. The creatinine assay has traceable calibration to isotope dilution-mass spectrometry. Refer to KDIGO guidelines for clinical interpretation. In patients with unstable renal function, e.g. those with acute kidney injury, the eGFR may not accurately reflect actual GFR. Performed By: #### H CGED, 81758-9, 3039-3 ####HESSEL LABORATORYCLIA [id number] [place] [address] [place] Glucose [Mass/Vol] 104 mg/dL High 74-99 [facility] Comment on above: Order Comment: Lou rico Type: BLOOD SPECIMENOrdering Facility: [facility] Address: [address] [place] [address] Result Comment: The [place] [employer] (ADA) provides guidance for cutoff values for fasting glucose and random glucose. The ADA defines fasting as no caloric intake for at least 8 hours. Fasting plasma glucose results between 100 to 125 mg/dL indicate increased risk for diabetes (prediabetes). Fasting plasma glucose results greater than or equal to 126 mg/dL meet the criteria for diagnosis of diabetes. In the absence of unequivocal hyperglycemia, results should be confirmed by repeat testing. In a patient with classic symptoms of hyperglycemia or hyperglycemic crisis, random plasma glucose results greater than or equal to 200 mg/dL meet the criteria for diagnosis of diabetes. Reference: Standards of Medical Care in Diabetes 2016, [place] [employer]. Diabetes Care. 2016.39(Suppl 1). Performed By: #### H CGED, 85306-2, 3039-3 ####HESSEL LABORATORYCLIA [id number] [place] [address] [place] Potassium [Moles/Vol] 4.0 mmol/L Normal 3.7-5.1 [facility] Comment on above: Order Comment: Speci men Type: BLOOD SPECIMENOrdering Facility: [facility] Address: [address] [address] Performed By: #### H CGED, 99187-7, 3040-3 ####IVEY LABORATORYCLIA [id number] [address] Protein [Mass/Vol] 7.8 g/dL Normal 6.3-8.0 [facility] Comment on above: Order Comment: Speci men Type: BLOOD SPECIMENOrdering Facility: [facility] Address: [address] [address] Performed By: #### H CGED, 94020-7, 3040-3 ####IVEY LABORATORYCLIA [id number] [address] Sodium [Moles/Vol] 139 mmol/L Normal 136-144 [facility] Comment on above: Order Comment: Speci men Type: BLOOD SPECIMENOrdering Facility: [facility] Address: [address] [address] Performed By: #### H CGED, 86122-5, 3040-3 ####IVEY LABORATORYCLIA [id number] [address] Urea nitrogen [Mass/Vol] 11 mg/dL Normal 7-21 [facility] Comment on above: Order Comment: Speci men Type: BLOOD SPECIMENOrdering Facility: [facility] Address: [address] [address] Performed By: #### H CGED, 33002-4, 3040-3 ####IVEY LABORATORYCLIA [id number] [address] ED NOTEon 10-30-2022 ED NOTE HNO ID: [id number] Author: Mahi Swann RN Service: ? Author Type: Registered Nurse Type: ED Notes Filed: 10/30/2022 8:22 PM Note Text: Pt had hammer toe surgery on Friday. Has not been able to have BM since. Now having vomiting and abdominal pain RUQ. Pt attempted miralax, suppositories, and enema at home today. Able to only have small BM with no relief of pain. Pt last took narcotic prn on Friday. Last dose of tylenol was at 5pm. Normal [facility] Gas and Carbon monoxide pane l (BldV)on 10-30-2022 Base excess Calc (BldV) [Moles/Vol] 0 mmol/L Normal 0-2 [facility] Comment on above: Order Comment: Speci men Type: VENOUS BLOOD SPECIMEN Ordering Facility: [facility] Address: [address] [place] [address] Performed By: #### 2 4344-4 #### HESSEL RESPIRATORY CLIA [id number] [facility] RESPIRAT[facility] THERAPY [address] [address] Carboxyhemoglobin (BldV) [Mass fraction] <1.0 Normal 0.0-2.0 [facility] Comment on above: Order Comment: Speci men Type: VENOUS BLOOD SPECIMEN Ordering Facility: [facility] Address: [address] [place] [address] Result Comment: Carb oxyhemoglobin Reference Range for Smokers: 2.0-8.0% Performed By: #### 2 4344-4 #### HESSEL RESPIRATORY CLIA [id number] [facility] RESPIRATORY THERAPY [address] [place] [id number] CO2 (BldV) [Partial pressure] 46 mm[Hg] Normal 42-55 [facility] Comment on above: Order Comment: Speci men Type: VENOUS BLOOD SPECIMEN Ordering Facility: [facility] Address: [address] [address] Performed By: #### 2 4344-4 #### HESSEL RESPIRATORY CLIA [id number] [facility] RESPIRATORY THERAPY [address] [address] CO2 adjusted to patient's actual temperature (BldV) [Partial pressure] Normal [facility] Comment on above: Order Comment: Anti men Type: VENOUS BLOOD SPECIMEN Ordering Facility: [facility] Address: [address] [address] Performed By: #### 2 4344-4 #### HESSEL RESPIRATORY CLIA [id number] [facility] RESPIRATORY THERAPY [address] [address] HCO3 (Bld) [Moles/Vol] 26 mmol/L Normal 24-28 [facility] Comment on above: Order Comment: Speci men Type: VENOUS BLOOD SPECIMEN Ordering Facility: [facility] Address: [address] [address] Performed By: #### 2 4344-4 #### HESSEL RESPIRATORY CLIA [id number] [facility] RESPIRATORY THERAPY [address] [address] Hemoglobin (Bld) [Mass/Vol] 15.3 g/dL Normal 11.5-15.5 [facility] Comment on above: Order Comment: Speci men Type: VENOUS BLOOD SPECIMEN Ordering Facility: [facility] Address: [address] [place] [address] Performed By: #### 2 4344-4 #### HESSEL RESPIRATORY CLIA [id number] [facility] RESPIRAT[facility] THERAPY [address] [address] Lactate [Moles/Vol] 1.0 mmol/L Normal 0.5-2.2 [facility] Comment on above: Order Comment: Speci men Type: VENOUS BLOOD SPECIMEN Ordering Facility: [facility] Address: [address] [address] Performed By: #### 2 4344-4 #### [facility] RESPIRATORY CLIA [id number] [facility] RESPIRAT[facility] THERAPY [address] [address] Methemoglobin (Bld) [Mass fraction] 1.0 % Normal 0.0-1.5 [facility] Comment on above: Order Comment: Speci men Type: VENOUS BLOOD SPECIMEN Ordering Facility: [facility] Address: [address] [address] Performed By: #### 2 4344-4 #### H[facility] RESPIRATORY CLIA [id number] [facility] RESPIRATORY THERAPY [address] [address] O2 THERAPY RA=Room Air Normal [facility] Comment on above: Order Comment: Speci men Type: VENOUS BLOOD SPECIMEN Ordering Facility: [facility] Address: [address] [address] Performed By: #### 2 4344-4 #### IVEY RESPIRATORY CLIA [id number] [facility] RESPIRAT[facility] THERAPY [address] [address] Oxygen (BldV) [Partial pressure] mm[Hg] Low 35-45 [facility] Comment on above: Order Comment: Speci men Type: VENOUS BLOOD SPECIMEN Ordering Facility: [facility] Address: [address] [address] Performed By: #### 2 4344-4 #### IVEY RESPIRATORY CLIA [id number] [facility] RESPIRAT[facility] THERAPY [address] [address] Oxygen adjusted to patient's actual temperature (BldV) [Partial pressure] Normal [facility] Comment on above: Order Comment: Speci men Type: VENOUS BLOOD SPECIMEN Ordering Facility: [facility] Address: [address] [address] Performed By: #### 2 4344-4 #### IVYE RESPIRATORY CLIA [id number] [facility] RESPIRAT[facility] THERAPY [address] [address] Oxyhemoglobin (BldV) [Mass fraction] 30 % Low 60-85 [facility] Comment on above: Order Comment: Speci men Type: VENOUS BLOOD SPECIMEN Ordering Facility: [facility] Address: [address] [address] Performed By: #### 2 4344-4 #### IVEY RESPIRATORY CLIA [id number] [facility] RESPIRAT[facility] THERAPY [address] [address] pH (BldV) 7.36 [pH] Normal 7.32-7.42 [facility] Comment on above: Order Comment: Speci men Type: VENOUS BLOOD SPECIMEN Ordering Facility: [facility] Address: [address] [address] Performed By: #### 2 4344-4 #### IVE[facility] RESPIRATORY CLIA [id number] [facility] RESPIRATORY THERAPY [address] [address] pH adjusted to patient's actual temperature (BldV) Normal [facility] Comment on above: Order Comment: Speci men Type: VENOUS BLOOD SPECIMEN Ordering Facility: [facility] Address: [address] [address] Performed By: #### 2 4344-4 #### [facility] RESPIRAT[facility] CLIA [id number] [facility] RESPIRAT[facility] THERAPY [address] [address] Potassium [Moles/Vol] 3.9 mmol/L Normal 3.5-5.0 [facility] Comment on above: Order Comment: Speci men Type: VENOUS BLOOD SPECIMEN Ordering Facility: [facility] Address: [address] [address] Performed By: #### 2 4344-4 #### [facility] RESPIRAT[facility] CLIA [id number] [facility] RESPIRAT[facility] THERAPY [address] [address] Lipase SerPl-cCncon 10-31-19 23 Lipase [Catalytic activity/Vol] 22 U/L Normal 16- [facility] Comment on above: Order Comment: Speci men Type: BLOOD SPECIMENOrdering Facility: [facility] Address: [address] [address] Performed By: #### H CGED, 15677-8, 3040-3 ####HESSEL LABORATORYCLIA [id number] [address] Urinalysis complete panel (U )on 10-30-2022 Bacteria LM.HPF (Urine sed) [#/Area] Few Abnormal None Seen [facility] Comment on above: Order Comment: Speci men Type: URINE SPECIMENOrdering Facility: [facility] Address: [address] [address] Performed By: #### 2 4356-8 ####IVEY LABORATORYCLIA [id number] [address] Bilirubin Ql (U) Negative Normal Negative [facility] Comment on above: Order Comment: Speci men Type: URINE SPECIMENOrdering Facility: [facility] Address: [address] [address] Performed By: #### 2 4356-8 ####IVEY LABORATORYCLIA [id number] [address] [place] Clarity (Unsp spec) Clear Normal Clear [facility] Comment on above: Order Comment: Speci men Type: URINE SPECIMENOrdering Facility: [facility] Address: [address] [place] [address] Performed By: #### 2 4356-8 ####IVEY LABORATORYCLIA [id number] [place] [address] [place] Color (U) Yellow Normal Yellow [facility] Comment on above: Order Comment: Speci men Type: URINE SPECIMENOrdering Facility: [facility] Address: [address] [place] [address] Performed By: #### 2 6-8 ####IVEY LABORATORYCLIA [id number] [address] Epithelial cells LM.HPF (Urine sed) [#/Area] Few Normal [facility] Comment on above: Order Comment: Speci men Type: URINE SPECIMENOrdering Facility: [facility] Address: [address] [place] [address] Performed By: #### 2 6-8 ####IVEY LABORATORYCLIA [id number] [address] [place] Glucose Test strip (U) [Mass/Vol] Negative Normal Negative [facility] Comment on above: Order Comment: Speci men Type: URINE SPECIMENOrdering Facility: [facility] Address: [address] [place] [address] Performed By: #### 2 4356-8 ####IVEY LABORATORYCLIA [id number] [place] [address] [place] Hemoglobin Ql (U) Negative Normal Negative, Trace [facility] Comment on above: Order Comment: Speci men Type: URINE SPECIMENOrdering Facility: [facility] Address: [address] [place] [address] Performed By: #### 2 4356-8 ####IVEY LABORATORYCLIA [id number] [address] [place] Ketones Ql (U) 1+ Abnormal Negative [facility] Comment on above: Order Comment: Speci men Type: URINE SPECIMENOrdering Facility: [facility] Address: [address] [place] [address] Performed By: #### 2 4356-8 ####IVEY LABORATORYCLIA [id number] [address] Leukocyte esterase Test strip Ql (U) Negative Normal Negative [facility] Comment on above: Order Comment: Speci men Type: URINE SPECIMENOrdering Facility: [facility] Address: [address] [place] [address] Performed By: #### 2 4356-8 ####IVEY LABORATORYCLIA [id number] [address] Nitrite Ql (U) Negative Normal Negative [facility] Comment on above: Order Comment: Speci men Type: URINE SPECIMENOrdering Facility: [facility] Address: [address] [place] [address] Performed By: #### 2 4356-8 ####IVEY LABORATORYCLIA [id number] [address] [place] pH (U) 6.5 [pH] Normal 5.0-8.0 [facility] Comment on above: Order Comment: Speci men Type: URINE SPECIMENOrdering Facility: [facility] Address: [address] [place] [address] Performed By: #### 2 4356-8 ####IVEY LABORATORYCLIA [id number] [address] [place] Protein (U) [Mass/Vol] Negative Normal Negative [facility] Comment on above: Order Comment: Speci men Type: URINE SPECIMENOrdering Facility: [facility] Address: [address] [place] [address] Performed By: #### 2 4356-8 ####IVEY LABORATORYCLIA [id number] [place] [address] [place] RBC LM.HPF (Urine sed) [#/Area] 0-3 /HPF Normal 0-3 /HPF [facility] Comment on above: Order Comment: Speci men Type: URINE SPECIMENOrdering Facility: [facility] Address: [address] [place] [address] Performed By: #### 2 4356-8 ####HESSEL LABORATORYCLIA [id number] [address] Specific gravity (U) [Rel density] 1.020 Normal 1.005-1.030 [facility] Comment on above: Order Comment: Speci men Type: URINE SPECIMENOrdering Facility: [facility] Address: [address] [place] [address] Performed By: #### 2 4356-8 ####HESSEL LABORATORYCLIA [id number] [address] [facility] Urobilinogen Ql (U) 0.2 EU/dL Normal 0.2-1.0 EU/dL [facility] Comment on above: Order Comment: Speci men Type: URINE SPECIMENOrdering Facility: [facility] Address: [address] [place] [address] Performed By: #### 2 4356-8 ####IVEY LABORATORYCLIA [id number] [place] [address] [place] WBC LM.HPF (Urine sed) [#/Area] 0-5 /HPF Normal 0-5 /HPF [facility] Comment on above: Order Comment: Speci men Type: URINE SPECIMENOrdering Facility: [facility] Address: [address] [place] [address] Performed By: #### 2 4356-8 ####HESSEL LABORATORYCLIA [id number] [place] [address] [place] XR FOOT 2V AP/LAT RTon 10-25 [facility] XR FOOT GENERAL 3V AP/LAT/OB L RIGHTon 10-25-2022 [facility] Daily Progress Note-Oral and Maxillofacial Surgeryon 01-01-2020 Daily Progress Note-sharepoint trainer Service: Oral & Maxillofacial Surgery Subjective Data: MIKAYLA BLUNT is a 19 year old Female who is Hospital Day # 3. Additional Information: S: No acute events o/n. Patient seen calmly resting in bed, comfortable this AM, mother present bedside. Denies foul taste in her mouth today, still reports soreness with opening. O: Vitals reviewed in EMR, afebrile CESAR: ~35mm, wnl on forced opening, patient is self-imposing limited mouth opening during phonation Swelling nearly non-existent at this time at b/l mandibular sites. No fluctuance, no purulenct draining, non erythematous. Site #17 healing appropriately with no s/s of infection. Bilaterally, posterior mandible and alveolus were thoroughly palpated and assessed for fluctuance and purulence. FOM - soft, non-raised Mobile Teeth: None Throat: Uvula Symmetric on Animation, Patient tolerating own secretions. Neck: non-tender to palpation, inferior border of mandible palpable bilaterally. Cardiovascular: No edema in hands/feet Respiratory: Non-labored breathing and saturating well on RA Neuro: CN V and VII intact bilaterally Psych: Appropriate mood and behavior A&P: Patient is a 19 yo F s/p wisdom teeth extraction on 12/08/2019 with history of periapical vs subperiosteal abscesses refractory to clindamycin with worsening swelling. Patient was admitted for IV antibiotics and monitoring. Stable overnight, afebrile. At this time, a CT facial bones with contrast has been performed and evaluated by our department. We are awaiting a final read by radiology prior to discharge. 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 Afebrile, s/p bedside I&D -IV Levaquin --> will transition to oral prior to d/c - no complaints of nausea/vomiting -Monitor for fever PPx: peds DVT risk assessment completed Dispo: Discharge is pending radiology final read on CT facial bones - will coordinate follow up with Dr. Sorensen in 1 week. Seen with chief residents, discussed with attending, Dr. Franchesca Keller [facility] Service pager: [phone] Objective Data: Objective Information: T PRBPSpO2 [id number]/7099% Date/Time12/31 8: 8: 8: 8: 8:30 Range(36.6C - 37.2C ) (67 - 104 ) (18 - 20 ) (105 - 126 )/ (52 - 71 ) (96% - 99% ) Highest temp of 37.2 C was recorded at 12/30 12:20 Pain reported at 12/31 9:18: 7 Medication: Medications: Continuous Medications --------- No continuous medications are active Scheduled Medications --------- 1. Acetaminophen Oral Liquid - PEDS: 545 mg Oral Every 6 Hours 2. Ibuprofen Oral Liquid - PEDS: 400 mg Oral Every 6 Hours 3. levoFLOXacin (LEVAQUIN) / D5W Premix IVPB - PEDS: 500 mg IntraVenous Piggyback Every 12 Hours 4. Melatonin - PEDS: 3 mg Oral Once 5. Methylphenidate Extended Release - PEDS: 18 mg Oral Every Morning 6. Multivitamin Pediatric Oral Liquid (POLY--JAMES) - RICARDO: 5 mL Oral Daily PRN Medications --------- 1. Lidocaine 1% Buffered (J-Tip) Injectable - PEDS: 0.2 mL SubCutaneous Every 5 Minutes Recent Lab Results: Results: I have reviewed these laboratory results: Basic Metabolic Panel [Drawn 31-Dec-2019 09:57:00]. Radiology Results: Results: Impression: CT Facial Bones with/without Contrast [Dec 31 2019 4:17PM] Signature/Cosignature/A ttestation: Note Completion: I am a: Resident/Fellow Attending AttestationI reviewed the resident/fellows documentation and discussed the patient with the resident/fellow. I agree with the resident/fellows medical decision making as documented in the note. Electronic Signatures: Arslan Keller (HETCOR) (Signed 01-Jan-2020 10:40) Authored: Service, Subjective Data, Objective Data, Signature/Cosignature/A ttestation Petar Sorensen) (Signed 19-Jan-2020 14:30) Authored: Signature/Cosignature/A ttestation Co-Signer: Service, Subjective Data, Objective Data, Signature/Cosignature/A ttestation Last Updated: 19-Jan-2020 14:30 by Petar Sorensen) Normal [facility] BASIC METABOLIC PANELon - Anion gap [Moles/Vol] 14 mmol/L Normal 10 - 30 [facility] Comment on above: Performed By: #### B MP ####[id number] [place] [address] Calcium [Mass/Vol] 8.6 mg/dL Normal 8.5 - 10.7 [facility] Comment on above: Performed By: #### B MP ####[id number] [place] [address] Chloride [Moles/Vol] 110 mmol/L High 98 - 107 [facility] Comment on above: Performed By: #### B MP ####[id number] [place] [address] Creatinine [Mass/Vol] 0.50 mg/dL Normal 0.50 - 0.90 [facility] Comment on above: Performed By: #### B MP ####[id number] [place] [address] Glucose [Mass/Vol] 133 mg/dL High 74 - 99 [facility] Comment on above: Performed By: #### B MP ####[id number] [place] [address] HCO3 (Bld) [Moles/Vol] 20 mmol/L Normal 18 - 27 [facility] Comment on above: Performed By: #### B MP ####[id number] [place] [address] Potassium [Moles/Vol] 3.6 mmol/L Normal 3.5 - 5.3 [facility] Comment on above: Performed By: #### B MP ####[id number] [place] [address] Sodium [Moles/Vol] 140 mmol/L Normal 136 - 145 [facility] Comment on above: Performed By: #### B MP ####[id number] [place] [address] Urea nitrogen [Mass/Vol] 8 mg/dL Normal 6 - 23 [facility] Comment on above: Performed By: #### B MP ####[id number] [place] [address] Daily Progress Note-Oral and Maxillofacial Surgeryon 12-31-2019 Daily Progress Note-sharepoint trainer Service: Oral & Maxillofacial Surgery Subjective Data: MIKAYLA BLUNT is a 19 year old Female who is Hospital Day # 2. Additional Information: S: No acute events o/n. Patient complaining of pain but in no distress. Eating breakfast this AM. O: Vitals reviewed in EMR, afebrile CESAR: ~35mm, wnl on forced opening, patient referencing speaking without opening mouth Swelling near resolved intraorally near the right posterior mandible at site #32. No fluctuance, no tenderness, no purulence draining, non erythematous. Site #17 healing appropriately with no s/s of infection. Bilaterally, posterior mandible and alveolus were thoroughly palpated and assessed for fluctuance and purulence. FOM - soft, non-raised Mobile Teeth: None TMJ Clicking or Popping: Negative Throat: Uvula Symmetric on Animation, Patient tolerating own secretions. Neck: non-tender to palpation, inferior border of mandible palpable bilaterally. Cardiovascular: No edema in hands/feet, normal S1,S2 Respiratory: CTAB, Non-labored breathing, good chest expansion, thorax symmetric Neuro: CN V and VII intact bilaterally Psych: Appropriate mood and behavior A&P: Patient is a 19 yo F s/p wisdom teeth extraction on 12/08/2019 now with periapical abscesses refractory to clindamycin with worsening swelling. Admitted for IV antibiotics and overnight monitoring. Stable overnight, afebrile. Will obtain CT imaging prior to dc today Plan: Neuro: hx of narcloepsy, epilepsy (last seizure 11 years ago) -No AED -Continue home concerta -Ibuprofen and tylenol for pain - scheduled -No narcotics - mom in agreement with no narcotics -Melatonin for sleep CV: no hx -q4hr vitals -Monitor BP and HR Pulm: no pulm history, stable on RA -OOTB -Pulse ox q4hr -Monitor for worsening respiratory status GI: -Regular diet as tolerated -No indication for PPI -Multivitamin Renal: voiding freely, no hx of renal disease -no mIVF -BMP if needed Heme: no heme hx -CBC as necessary ID: c/f for post wisdom teeth extraction related infection refractory to clindamycin. Afebrile, s/p bedside I&D -IV Levaquin --> will transition to oral prior to d/c -Monitor for fever -Decadron x 3 doses - no outpatient medrol PPx: peds DVT risk assessment completed Dispo: anticipate d/c today - will coordinate follow up with Dr. Sorensen in 1 week. Seen with chief residents, discussed with attending, Dr. Franchesca Pan MD PGY-1 OMFS rotator Service pager: [phone] Objective Data: Objective Information: T PRBPSpO2 [id number]/8098% Date/Time12/30 8: 8: 8: 8: 8:01 Range(36.6C - 37.3C ) (91 - 100 ) (16 - 24 ) (119 - 133 )/ (67 - 87 ) (97% - 100% ) Highest temp of 37.3 C was recorded at 12/29 17:36 Pain reported at 12/30 5:03: 9 Pain reported at 12/29 14:03: 8 Signature/Cosignature/A ttestation: Note Completion: I am a: Resident/Fellow Attending AttestationI reviewed the resident/fellows documentation and discussed the patient with the resident/fellow. I agree with the resident/fellows medical decision making as documented in the note. Electronic Signatures: Inna Pan (Resident)) (Signed 31-Dec-2019 09:43) Authored: Service, Subjective Data, Objective Data, Signature/Cosignature/A ttestation Petar Sorensen) (Signed 19-Jan-2020 14:29) Authored: Signature/Cosignature/A ttestation Co-Signer: Service, Subjective Data, Objective Data, Signature/Cosignature/A ttestation Last Updated: 19-Jan-2020 14:29 by Petar Sorensen) Normal [facility] Discharge [id number] Discharge Profile2 Discharge Orders: Anticipated Discharge Date: Anticipated Discharge [id number] Problem List: Admitting Dx: Subperiosteal abscess of jaw: Catalog Name: Inflammatory conditions of jaws Significant Events: oral surgery: Past Surgical History Hospital Providers: Provider RoleProvider Name AttendingPetar Sorensen DNAR: DNAR Statusnone Activity: activity as tolerated. May shower. May return to school/work Instructions: May not drive until follow-up visit. No pushing, pulling, or lifting objects greater than 10 pounds. Weight-bearing Instructions: full weight bearing. Other activity instructions: Slowly increase your activity each day. No strenuous or vigorous exercising until cleared by your surgeon. Diet: Dietregular, soft as tolerated Diet Consistency/Texturesoft Call Provider If (Homegoing Patients): Breathing harder than normal or having retractions. Fever of 100.4 F (38 C) or higher. Temperature is greater than 102 degrees. Urinating less than normal, over 1 day. Acting very sleepy and difficult to awaken. Vomiting (throwing up) and not able to eat or drink for 12 hours. 3 or more loose, watery bowel movements in 24 hours (diarrhea). Hospital Course (Home Care/Gold Form): Hospital Course: Hospital Course: include significant abnormal lab values Mikayla Epps is a 19 yo F s/p wisdom teeth extraction on 12/08/2019 admitted for persistence periapical abscess despite clindamycin therapy. She was admitted for initiation of Levaquin and monitoring. A small periapical abscess was drained in the ED. Overnight there were no issues. Patient tolerated levaquin doses well. Diet was advanced as tolerated. She continued to have muscle pain in the oral cavity, was taking ibuprofen and tylenol, narcotics were avoided. IV medication transitioned to oral as diet advanced. On the day of discharge, the pt was tolerating a diet, pain was controlled on PO pain medication, and they were ambulating and voiding spontaneously. They were discharged home in stable condition with instructions to follow up as outpatient. Provider FINAL REVIEW of Orders: Final Review: Final Review of Medication Reconciliation and Orders Completedby Physician Reviewing ProviderInna Pan MD (Resident) at 31-Dec-2019 08:58:50 Appointments: Follow-Up Appointment 01: Physician/Dept/ServiceD renee Sorensen Reason for Referral1 [place] [address] Phone [phone] RanYou will have a follow up appointment within 1 week. IF you don't get the time and date before you leave, you'll get a call. Please feel free to call our office with any questions/concerns/if you fail to hear from us. Electronic Signatures: Inna Pan ( (Resident)) (Signed 31-Dec-2019 08:58) Authored: Discharge Orders, Hospital Course (Home Care/Gold Form), Provider FINAL REVIEW of Orders, Appointments, Gold Form - Glass Presser Summary Last Updated: 31-Dec-2019 08:58 by Inna Pan ( (Resident)) Normal [facility] Letter - Admission Notificat ion to PCPon 12-31-2019 Letter - Admission Notification to PCP Letter of Admission: Today's Date: 31-Dec-2019. Dear Dr. Nair. We would like to inform you that your patient was admitted to [facility] on the following date: 31-Dec-2019. The patient was admitted to the service of OMFS with concern for Dental Abscess. - You will be updated with any important changes in your patient's status and at the time of discharge. Thank you for the privilege of caring for your patient. Please do not hesitate to contact us if you desire any additional information. - Sincerely, Attending Physician Name: Dr. Sorensen. Attending Physician . Electronic Signatures: Carrie Mercado (REACH LIFT TRUCK DRIVER) (Signed 31-Dec-2019 15:04) Authored: Admission Letter Last Updated: 31-Dec-2019 15:04 by Carrie Mercado (REACH LIFT TRUCK DRIVER) Normal [facility] NR CT FACIAL BONE W/CONTRAST on 12-31-[address] FACIAL BONE W/CONTRAST Patient Name: MIKAYLA BLUNT STUDY: CT FACIAL BONE W/CONTRAST; 12/31/2019 5:34 pm INDICATION: r/o periapical abscess s/p wisdom teeth extractions. COMPARISON: None. ACCESSION NUMBER(S): [id number] ORDERING CLINICIAN: INNA PAN TECHNIQUE: Following intravenous injection 90 cc Optiray [address] was performed from the skullbase to the thoracic inlet and multiplanar reconstructions were made. FINDINGS: *Status post extraction of 1, 16, 32 and 17. There is no associated fluid collection, hematoma or enhancement. *The visualized paranasal sinuses nasopharynx and oropharynx are unremarkable. *The major salivary glands are normal. *There is no measurable cervical lymphadenopathy. *The larynx and related cartilages are normal. *The thyroid gland is normal. *The thoracic inlet is normal. IMPRESSION: *Postoperative changes as described *No evidence of fracture or abscess. *There is no evidence of mass, cyst or adenopathy in the neck. THIS EXAMINATION WAS INTERPRETED AT [facility] [place] Electronically signed by: NANCI BOYER MD Normal [facility] Admission Risk Screen - Pedi atricon 12-30-2019 Admission Risk Screen - Pediatric Admission Screens: Patient Verification: New W ID Band Applied in my Departmentyes Patient Identity Verified Byparent/legal guardian ID Band FULL Name, include Middle, spelling matches patient's ID used for verificationyes ID Band Matches Patient ID used for Verficationyes ID Band MRN Matches EMR MRNyes Visitor Restriction: Coronavirus Visitor Restriction: Reasonable restrictions to in-person visitors will be observed due to current coronavirus pandemic. Travel History: COVID-19 Screening Completedno exposure or symptoms(1) Advance Directive: Advance Directive/DNRnot applicable Humpty Dumpty Risk Assessment: Humpty Dumpty Risk Assessment: Falls Precautions per Humpty Dumpty Screening ToolHIGH RISK falls safety precautions necessary (score 12+) Humpty Dumpty Educationteaching provided Teaching ProvidedPI 729 Humpty Dumpty Falls Prevention Program Family Violence Screen (Patient < 8 yo, screen parent only. Patient 8 yo and older, screen both parent and child.): Do you feel UNSAFE going back to the place where you liveno Clinician Assessment: Are there any apparent signs of injuries/behaviors that could be related to abuse/neglectno Ask parent or guardian: Are there times when you, your child(isaiah), or any member of your household feel unsafe, harmed, or threatened around persons with whom you know or liveno Have you had any thoughts of harming anyone elseno Social Service Consult for abuse/neglect needed this visitno SBIRT: Does this patient present with an injuryno Functional Screen: Functional Screen: In the recent/past 2-4 weeks, patient or family have noticedno issues that require a rehabilitation consult at this time Learning Assessment (Patient): Patient is Able to be Assessed for Learningyes Factors Influence Readiness to Learnnone, ready to learn Factors Impact Ability to Learnnone Devices/Methods Used to Communicatenone Learning Preferencesindividual instruction, verbal instruction Cultural Considerationsnone Developmental Considerationsnone Jainism Considerationsnone Learning Assessment (Other Learner): Other learner availableyes Other Learner is Able to be Assessed for Learningyes Learnermother Factors Influencing Readiness to Learnnone, ready to learn Factors that Impact Ability to Learnnone Devices/Methods Used to Communicatenone Learning Preferencesverbal instruction, written material Cultural Considerationsnone Developmental Considerationsnone Jainism Considerationsnone Nutrition Risk Screen: Nutrition Screen forpediatric patient Nutrition Risk Screen (2 or more indicators, Order Nutrition Consult)no indicators present Nutrition Consult needed this visitno Can Patient Participate in Room Serviceyes Pain Screen: Pain Scalenumerical 0-10 Pain Scale Educationteaching provided Teaching Provided PedsPain Management PI sheet [phone]; Zhang Mixon Current Pain Level3 = Mild Acceptable Pain Level4 = Moderate Chronic Painno Video/Poke Procedure Plan: Has the Pain Evaluation and Management Video been viewed within the past 3 months: yes Has the Poke and Procedure Plan been completed: yes Pressure Injury Present on Admissionno Spiritual Screen: Are there any cultural, spiritual, congregational practices/values/needs that are important for us to knowno Locust Suicide Peds: Screen patients 10 yo and older, or any patient presenting with a mental health issue Risk Screen Not Applicable/Able to Answerable to be screened (1) In the Past Month: Have you wished you were or could go to sleep and not wake upno(1) In the Past Month: Have you had any actual thoughts of killing yourself no(1) Lifetime: Have you ever done, started to do, or prepared to do anything to end your lifeno(1) Locust Suicide Risknegative Optional Screens: Significant Indicatiors: Significant Indicators: Complete Electronic Signatures: Lisa Simmons (SANJU) (Signed 30-Dec-2019 21:19) Authored: Admission Screens, Optional Screens Last Updated: 30-Dec-2019 21:19 by Lisa Simmons (SANJU) References: 1. Data Referenced From Triage - ED Peds 30-Dec-2019 14:03 Normal [facility] CORONAVIRUS 2019, SCREEN ASY MPTOMATICon 12-30-2019 CORONAVIRUS 2019,PCR NOT DETECTED Normal Not Detected [facility] Comment on above: Result Comment: This assay is designed to detect the ORF1ab and/or S genes of SARS-CoV-2 via nucleic acid amplification. A Not Detected result does not preclude 2019-nCoV infection since the adequacy of sample collection and/or low viral burden may result in presence of viral nucleic acids below the clinical sensitivity of this test method. Fact sheet for providers: www.fda.gov/media/909353/download Fact sheet for patients: www.fda.gov/media/111547/download This test has received FDA Emergency Use Authorization (EUA) and has been verified by [facility] ([facility]). This test is only authorized for the duration of time that circumstances exist to justify the authorization of the emergency use of in vitro diagnostic tests for the detection of SARS-CoV-2 virus and/or diagnosis of COVID-19 infection under section 564(b)(1) of the Act, 21 U.S.C. 360bbb-3(b)(1), unless the authorization is terminated or revoked sooner. [facility] is certified under CLIA-88 as qualified to perform high complexity testing. Testing is performed in the [facility] laboratories located at [address] [place] [address]. Performed By: #### C OVSC #### [place] [address] Lab Specimen Source Nasal, Nasopharyngeal Normal [facility] Comment on above: Performed By: #### C OVSC #### [place] [address] History and Physicalon 12-29 History and Physical History of Present Illness: /Lactating: Are You no (1) Are You Currently Breastfeedingno (1) HPI: Mikayla Epps is a 19 yo F patient who underwent wisdom teeth extractions on 12/08/2019. Post-operatively, she has struggled with the development of dry sockets. Furthermore, she developed an abscess which was managed in the office on 12/12 and she was started on a 7 day course of clinda. She noticed pus from left side of moth a few days after completion of the clinda and she was again started on another course of clindamycin. She is now on day 4 of the 2nd 7 day course. She began developing worsening pain and swelling with pus draining bilaterally intra-orally. She began to have worsening swelling and pain. No respiratory issues, tolerating secretions. Afebrile. Pain at home managed by Tylenol and Motrin. No vomiting. Presents to ED after discussing symptoms with OMFS. PMH: hx of epilespy (last seizure 11 years ago), narcolepsy, gluten sensitivity PSH: R foot surgery, T&A Social hx: immunization up to date, in high school Allergies: versed, PCN, omnicef Home meds: concerta, probiotics multivitamin, Claritin Physical Exam: #### Constitutional: Well developed, awake/alert/oriented x3 EYES PERRLA, EOMI ORAL CAVITY/ORAL CAVITY CESAR: ~35mm, wnl Noted intraoral swelling present at right posterior mandible at sitr #32, non-erythematous, miinimal fluctuance, Minimally tender to palpation, purulence was not expressed with palpation of site. Site #17 healing appropriately with no s/s of infection. FOM - soft, non-raised Mobile Teeth: None TMJ Clicking or Popping: Negative Throat: Uvula Symmetric on Animation, Patient tolerating own secretions. Neck:non-tender to palpation, inferior border of mandible palpable bilaterally. Cardiovascular: No edema in hands/feet, normal S1,S2 Respiratory: CTAB, Non-labored breathing, good chest expansion, thorax symmetric Neuro: CN V and VII intact bilaterally Psych: Appropriate mood and behavior INTRAORAL INCISION & DRAINAGE PROCEDURE NOTE: Risks, benefits alternatives of incision and drainage discussed with patient and parents, including but not limited to pain, bleeding, swelling, and possible nerve damage. Verbal consent obtained. Anesthetized patient with 2 cc of buffered 1% lidocaine. A 20 gauge needle was used to aspirate the region near surgical site of #32. Purulence noted, ~2cc aspirated. Area of infection thoroughly drained with digital pressure. The area was aggressively irrigated with normal saline. The patient tolerated the procedure well. Labs/Imaging: none Assessment/Plan: Patient is a 19 yo F s/p wisdom teeth extraction on 12/08/2019 now with periapical abscesses refractory to clindamycin with worsening swelling. Admitted for IV antibiotics and overnight monitoring. Plan: Neuro: hx of narcloepsy, epilepsy (last seizure 11 years ago) -No AED -Continue home concerta -Ibuprofen and tylenol for pain - scheduled -No narcotics -Melatonin for sleep CV: no hx -q4hr vitals -Monitor BP and HR Pulm: no pulm history, stable on RA -OOTB -Pulse ox q4hr -Monitor for worsening respiratory status GI: -Regular diet as tolerated -No indication for PPI -Multivitamin Renal: voiding freely, no hx of renal disease -no mIVF -BMP if needed Heme: no heme hx -CBC as necessary ID: c/f for post wisdom teeth extraction related infection refractory to clindamycin. Afebrile, s/p bedside I&D -IV Levaquin --> will transition to oral prior to d/c -Monitor for fever -Decadron x 3 doses PPx: peds DVT risk assessment completed Dispo: anticipate d/c tomorrow 12/30 Seen with chief residents, discussed with attending, Dr. Franchesca Pan MD PGY-1 FS rotator Service pager: [phone] Allergies: penicillin: Hives/Urticaria Versed: Psychosis Omnicef: Other Latex: Hives/Urticaria Medications Prior to Admission: Home meds have been reviewed, but review is not yet complete Levaquin 500 mg oral tablet: 1 tab(s) orally once a day. Objective: Objective Information: T PRBPSpO2 Value36.25129446/63551% Date/Time12/29 14: 14: 14: 14: 14:03 Range(36.9C - 36.9C ) (98 - 98 ) (18 - 18 ) (132 - 132 )/ (85 - 85 ) (100% - 100% ) Highest temp of 36.9 C was recorded at 12/29 14:03 Pain reported at 12/29 14:03: 8 Pain reported at 12/29 14:03: 8 Signatures/Attestation/ Certification: Note Completion: I am a: Resident/Fellow Attending AttestationI saw and evaluated the patient. I personally obtained the chinchilla and critical portions of the history and physical exam or was physically present for chinchilla and critical portions performed by the resident/fellow. I reviewed the resident/fellows documentation and discussed the patient with the resident/fellow. I agree with the resident/fellows medical decision making as documented in the note. I personally evaluated the patient [id number] Attending Provider Inpatient Certification StatementI certify this patients need for inpatient care based on the above documentation including; the order to admit as inpatient, the anticipated length of stay, diagnosis, problem list and plan of care, and discharge plan. Electronic Signatures: Kady Anna ( (Resident)) (Signed 30-Dec-2019 21:58) Authored: History of Present Illness, Signatures/Attestation/ Certification Inna Pan ( (Resident)) (Signed 30-Dec-2019 20:31) Authored: History of Present Illness, Comorbidities, Allergies, Medications Prior to Admission, Objective, Signatures/Attestation/ Certification Petar Sorensen) (Signed 19-Jan-2020 14:28) Authored: Medications Prior to Admission, Signatures/Attestation/ Certification Co-Signer: History of Present Illness, Signatures/Attestation/ Certification Last Updated: 19-Jan-2020 14:28 by Petar Sorensen) References: 1. Data Referenced From Provider Note - ED Peds 30-Dec-2019 14:19 Normal [facility] Patient Profile - Pediatric v2on 12-30-2019 Patient Profile - Pediatric v2 Profile: Initial Info: How to be Addressedmacey(1) Parent Namemother Nena (1) Spoken Language PreferredEnglish (1) Parental Spoken Language PreferredEnglish (1) Parental Reading Language PreferredEnglish (1) Legal CustodianStacey and eduard Blunt Are you currently using the Personal Electronic Health Record or SpotbrosCAREno Are you interested in learning more about [facility] for the management of your healthnot at this time Stated Reason for Admissionwisdom teeth surgery pain Court Ordered Visitationno Legal Guardian Notified of Admissionlegal guardian present Notify PCPnotify PCP Informed of Patient Visiting Rightsyes [facility] Patient Belongingsremains with patient Patient Belongings Remaining with Patientclothing; cell phone/electronics Medications Brought to Hospitalno General Health: Pediatric Weight (kg)24.2 kilogram(s)(2) Weight Methodactual (measured) (2) Scale Typestanding (2) Pediatric Height / Length (cm)157.5 centimeter(s)(2) Height Methodheight measured (2) BMI (kg/m2)9.755 square meter Rsp Based Care: How would you (parents/caregivers) like to participate in the care of your childbe active in care What is the number one concern for you/your child during this hospitalization pain control What is the most important thing we can do to support you and your child during this hospitalizationupdate on plan of care Is there anything we need to know to best care for your childgluten free diet Health Mgmt: Symptoms/Conditions Managed at Homeneurological Neurological Symptoms/Conditionsseiz ures Neurological Managementmanaged Are You no (3) Are You Currently Breastfeedingno (3) Relationship/Environ: Resource/Environmental Concernsnone Primary Caregivermother(1) Lives Withmother(1) Anticipated Transition [facility] Anticipated at Transitionnone Information Review: Allergies, Home Meds and Significant Events have been Reviewed and Verified with Patient/Familyyes ALLERGY, INTOLERANCE, ADVERSE EVENT: Allergies: penicillin: Drug, Hives/Urticaria, Active Versed: Drug, Psychosis, Active Omnicef: Drug, Other, Active Latex: Latex, Hives/Urticaria, Active Gluten: Food, Other, Active Electronic Signatures: Lisa Simmons (SANJU) (Signed 30-Dec-2019 21:21) Authored: Profile, Additional Information Last Updated: 30-Dec-2019 21:21 by Lisa Simmons (SANJU) References: 1. Data Referenced From Patient Profile - Preop - Pediatric v2 14-Jul-2019 14:22 2. Data Referenced From 1. Vital Signs - Peds/ 30-Dec-2019 19:03 3. Data Referenced From History and Physical 30-Dec-2019 17:34 Normal [facility] Provider Note - ED Pedson Provider Note - ED Peds Time Seen: Time [id number] 14:19 History of Presenting Illness and Social History: /Lactating: Are You no (1) Are You Currently Breastfeedingno (1) Patient Complaint: This 19 year old Female presents with complaint(s) of post operative complication. History of Presenting Illness and Social History: HPI: HPI: Mikayla is a 19 yo female presenting with pain and drainage s/p wisdom teeth extraction on December 07. On 12/07, about 3 weeks ago, pt had her wisdom teeth removed. Afterward had pain x 5 days and was evaluated by surgeon, found to have dry sockets and received packing. Pt had already completed a 3 day course of clindamycin after the procedure. On 12/12, pt had right sided swelling, surgeon lanced an abscess and started patient on 7 day course of Clindamycin, which she completed. A few days later, noticed pus coming from the left side of her mouth, evaluated friday and started on another 7 day course of Clindamycin. Today she is on day 4, has not missed any doses. Yesterday began to have severe bilateral pain with pus from both sides. Today the pain began to extend from both ears down to her chin. Family called OMFS who referred her to the ED for further evaluation. Pt has been managing pain with tylenol and motrin BID. She has maintained PO intake. Denies fevers, chlils, vomiting. ROS otherwise negative. Past Medical History: Epilepsy (last seizure 13yo), Narcolepsy, gluten sensitivity Past Surgical History: Right foot surgery 2016, T&A Medications: Concerta, Probiotic, MVI, Claritin Allergies: PCN, Versed, Omnicef Immunizations: UTD Family History: denies family history pertinent to presenting problem ROS: All systems were reviewed and negative except as mentioned above in HPI Daycare/School: 12th grade Physical Exam: Gen: Alert, well appearing, in NAD Head/Neck: NCAT, neck w/ FROM Eyes: EOMI, anicteric sclerae, noninjected conjunctivae Nose: No congestion or rhinorrhea Mouth: MMM, OP without erythema, slight intraoral swelling on the right, no active bleeding or pus, tenderness to palpation of b/l mandible Heart: RRR, no murmurs, rubs, or gallops Lungs: CTA b/l, no rhonchi, rales or wheezing, no increased work of breathing Abdomen: soft, NT, ND, +BS Musculoskeletal: no joint swelling noted Extremities: WWP, no c/c/e, cap refill <2sec Neurologic: Alert, symmetrical facies, phonates clearly, moves all extremities equally, responsive to touch, ambulates normally Skin: no rashes Psychological: appropriate mood/affect Emergency Department course / medical decision-making: OMFS consult Levoquin x 1 Dexamethason x 1 Tylenol x 1 Consultations: OMFS Assessment/Plan: Mikayla is a 19 yo female presenting with pain and drainage s/p wisdom teeth extraction on December 07. OMFS was consulted and recommended admission for IV antibiotics as well as steroids. Pain and drainage likely 2/2 clindamycin resistant organism and contributory muscle pain (masseter). Will test for covid prior to admission. Pt seen and discussed with Dr. Gould Referral MD: Referral MD Contacted: Referral Yes (1) Referring MDOMFS Referring MD Contactedyes Allergies and Home Medications: Allergy, Intolerance, Adverse Event: Allergies: penicillin: Drug, Hives/Urticaria, Active Versed: Drug, Psychosis, Active Omnicef: Drug, Other, Active Latex: Latex, Hives/Urticaria, Active Outpatient Medication, Review/Add Medications: * Patient Currently Takes Medications as of 08-Dec-2019 09:34 documented in Structured Notes HISTORY ATTESTATION: AttestationI have reviewed and confirmed nurse's/medic's notes for patient's medications, allergies, medical history, and surgical history MEDICATION: * Outpatient Medication Status not yet specified Diagnoses/Visit Problems: Subperiosteal abscess of jaw: Attestation: Co-Sign/Attestation: Attestation: I saw and evaluated the patient. I personally obtained the chinchilla and critical portions of the history and physical exam or was physically present for chinchilla and critical portions performed by the resident/fellow. I reviewed the resident/fellows documentation and discussed the patient with the resident/fellow. I agree with the resident/fellows medical decision making as documented in the resident/fellows note with the exception/addition of the following Comments/ Additional Findings: I signed this patient out to Dr. Dupree at 1500 with the ultimate disposition pending. Electronic Signatures: Grace Gould) (Signed 31-Dec-2019 12:00) Authored: Attestation Co-Signer: History of Presenting Illness and Social History, History Attestation, ED Diagnosis (REQUIRED), Attestation Fernanda Olvera (Resident)) (Signed 30-Dec-2019 22:26) Authored: Time Seen, History of Presenting Illness and Social History, Referral MD, Allergies and Home Medications, History Attestation, Physical Exam, Rx Plug Making Operator, ED Diagnosis (REQUIRED), Attestation Last Updated: 31-Dec-2019 12:00 by Grace Gould) References: 1. Data Referenced From Triage - ED Peds 30-Dec-2019 14:03 Column Headers: Allergy, Intolerance, Adverse Event: Category, Allergen/Product, Allergen Type, Onset Date, Reaction, Status Outpatient Medication, Review/Add Medications: Medication, Last Dose Taken, Review Status, Start Date, Stop Date, He, Last Modified Date/Time MEDICATION: Instructions, Medication, Last Dose Taken, Start Date, Stop Date, He, Submitted By, Quantity, Refills Diagnoses/Visit Problems: Problem, Onset Date, Expected Resolution Date Normal [facility] Triage - ED Pedson 0 Triage - ED Peds Triage: Quick Triage: Are You no Are You Currently Breastfeedingno Chart Review: CHIEF COMPLAINT MIKAYLA BLUNT is a 19 year old Female patient with a chief complaint of post operative complication. Triage Date/Time: 30-Dec-2019 14:03 Vital Signs: Temperature: 98.4F ( 36.9C) Temperature Location: oral Blood Pressure: 132/85 Mean: Heart Rate: 98 Respiratory Rate: 18 Pulse Oximetry: 100% on room air, no respiratory support Capillary Refill: < 2 seconds Weight: 54.650 kilogram(s) Weight Method Used: actual (measured) Height: 158.000 centimeter(s) Height Method: height measured Comments: [place] teeth extraction December 07. Increased pain and draining. Difficulty chewing, tolerating PO fluids. Pain Scale: VAS (8 yrs & older) VAS Pain [place] Coma Scale Peds (2yrs to Adult): Best Eye Response: (E4) spontaneous Best Verbal Response: (V5) oriented Best Motor Response: (M6) obeys commands Antwan Coma Scale Score: 15 Cough Lasting Greater than 2 Weeks: no Patient immunocompromised related to: N/A Allergies: yes Patient has Homicidal Thoughts: no Medications Given at Home: Tylenol @ 0900 Acuity Level: 3 Referral: Yes Peds Complaint Code ([facility]): 10 Mode of Arrival: private vehicle ABCD PRIMARY ASSESSMENT MIKAYLA Murphy primary assessment is Within Defined Limits. The airway is open and patent. Breathing spontaneous and unlabored with clear breath sounds bilaterally. Circulation is normal with good peripheral pulses. Skin is warm and dry and color is normal for race. Alert and appropriate for age. Symptoms Are Negative For: abrasion, avulsion, bleeding, laceration, bruising, fever, lump, redness, swelling and discharge. TRAVEL HISTORY Travel History Coronavirus Screening: no exposure or symptoms RISK SCREEN [place] Suicide Risk Screen Risk Screen Not Applicable/Able to Answer: able to be screened In the Past Month: Have you wished you were or could go to sleep and not wake up no Have you had any actual thoughts of killing yourself no Lifetime: Have you ever done, started to or prepared to do anything to end your life no Past Medical History: Past Medical History Reviewedyes Electronic Signatures: Tena Pan (YA) (Signed 30-Dec-2019 14:10) Authored: Triage, Past Medical History Last Updated: 30-Dec-2019 14:10 by Tena Pan (YA) Normal [facility] History and Physical - Surge ry > 30 dayson 12-08-2019 History and Physical - Surgery > 30 days History of Present Illness: /Lactating: Are You no Are You Currently Breastfeedingno History Present Illness: Reason for surgery: Extraction of wisdom teeth HPI: This is a 19yoF with pmhx sig for epilepsy/narcolepsy and GERD presenting for extraction of all four wisdom teeth (complete bony impacted #1, 16, 17, 32). pmhx: GERD, epilepsy/narcolepsy pshx: foot surgery meds: none allergies: Penicillin, Latex, Versed, Omnicef Allergies: Allergies: penicillin: Hives/Urticaria Versed: Psychosis Omnicef: Other Latex: Hives/Urticaria Home Medication Review: Home Medications Reviewed: yes Impression/Procedure: Impression and Planned Procedure: Extraction of teeth #1, 16, 17, 32 Vital Signs: Temperature C: 37 degrees C Temperature F: 98.6 degrees F Heart Rate: 83 beats per minute Respiratory Rate: 16 breath per minute Blood Pressure Systolic: 114 mm/Hg Blood Pressure Diastolic: 81 mm/Hg Physical Exam: Constitutional: Well developed, awake/alert, no distress, alert and cooperative Head/Neck: Complete bony impacted #1, 16, 17, 32, no visible in oral cavity CN V, VII intact b/l CESAR within normal limits Respiratory/Thorax: normal work of breathing on RA Cardiovascular: WWP Extremities: GARCÍA Skin: Warm and dry, no lesions, no rashes Signatures/Attestation/ Certification: Note Completion: I am a: Resident/Fellow Attending AttestationI saw and evaluated the patient. I personally obtained the chinchilla and critical portions of the history and physical exam or was physically present for chinchilla and critical portions performed by the resident/fellow. I reviewed the resident/fellows documentation and discussed the patient with the resident/fellow. I agree with the resident/fellows medical decision making as documented in the note. I personally evaluated the patient [id number] Attending Provider Inpatient Certification StatementI certify this patients need for inpatient care based on the above documentation including; the order to admit as inpatient, the anticipated length of stay, diagnosis, problem list and plan of care, and discharge plan. Electronic Signatures: Kady Anna (Resident)) (Signed 08-Dec-2019 07:24) Authored: History of Present Illness, Allergies, Home Medication Review, Impression/Procedure, Physical Exam, Signatures/Attestation/ Certification Petar Soresnen) (Signed 09-Dec-2019 13:43) Authored: Physical Exam, Signatures/Attestation/ Certification Co-Signer: History of Present Illness, Allergies, Home Medication Review, Impression/Procedure, Physical Exam, Signatures/Attestation/ Certification Last Updated: 09-Dec-2019 13:43 by Petar Sorensne) Normal [facility] Reports - [facility] Patient Name: Bill Blunt :2000 Date of Service: 12/08/2019 Surgeon: Dr. Petar Sorensen Report Type: Operative Report Preoperative Diagnosis: Impacted teeth with abnormal position Postoperative Diagnosis: Impacted teeth with abnormal position Operation/Procedure: Extraction of teeth #1, 16, 17, 32 Surgeon: Petar Sorensen MD, DDS Commercial Collections Driver: Kady Anna MD, DMD Anesthesia: General EBL: <5cc Complications: None Indications: This is a 19yoF with a pmhx sig for epilepsy/narcolepsy and severe allergy to Versed with complete bony impacted teeth #1, 16, 17, 32 requiring this procedure to be performed in the main OR. All risks benefits and alternatives of the procedure were discussed with the patient and mother and after all questions were answered, consent was obtained to proceed with surgery. Description of procedure: The patient was met in the preoperative holding area and brought to the operating room in supine position. The patient was then transferred to the operating table and the anesthesia team at this time placed on the monitors. A time out was performed and the anesthesia team induced anesthesia and intubated the patient. Then, the patient was prepped and draped in standard sterile fashion. 1% Lidocaine with epi was then administered via bilateral JONNATHAN block and buccal infiltration at sites #17, 32, and buccal and palatal infiltration at sites #1, 16. A throat pack was placed. A #15 blade was used to make a hockey stick incision at site #17 and #32 and a full thickness mucoperiosteal flap was elevated to expose site of impacted teeth. A surgical drill with fissure bur and irrigation was then used to create a buccal trough and expose and section the teeth into 2 segments. The teeth were then removed in their entirety with elevators and rongeurs, along with the follicle. A #15 blade was used to make a distal buccal release at site #1 and #16. A surgical drill with fissure bur and irrigation was used to expose impacted #1. Teeth #1, 16 were both elevated and extracted in their entirety along with the remaining follicles. Sites #1, 16, 17, 32 were sutures in horizontal mattress fashion with 3-0 chromic gut. Hemostasis achieved. Marcaine 0.25% with epi was then administered via bilateral JONNATHAN block and buccal infiltration at sites #1, 16, 17, 32. This concluded the procedure, and care of the patient was then turned over to the anesthesia team who extubated the patient successfully and brought her to PACU in stable condition. The patient was stable throughout the procedure, and there were no complications intraoperatively. Dr. Petar Sorensen was present for for all critical portions of the case. Kady Anna MD, DMD for Petar Sorensen MD, DDS Electronic Signatures: Petar Sorensen) (Signed on 09-Dec-2019 13:44) Co-Signer Kady Anna (Resident)) (Signed on 08-Dec-2019 20:20) Authored Last Updated: 09-Dec-2019 13:44 by Petar Sorensen) Normal [facility] Preop Checkliston 12-08-2019 Preop Checklist Preop Checklist: Preop Checklist: Arrival [id number] Arrival Time07:05 Procedure Typewisdom teeth removal Temperature C37 degrees C Temperature F98.6 degrees F Heart Rate83 beats per minute Respiratory Rate16 breath per minute Blood Pressure Krogpjqh603 mm/Hg Blood Pressure Wjdseqtgs92 mm/Hg NPO [id number] 22:00 ID Band Onyes Allergy Bandyes Consent Signedpending H&P Completepending Anesthesia Assessment Completedpending EKG Performednot ordered Chest X-Ray Performednot ordered HCG Urine TestComplete Hair Washedyes Soap and water bath with hair shampoo the night before surgeryyes Hat placed on prior to transportnot applicable SCD's Appliedsent to OR Denturesnot applicable Prostheticsnot applicable Hearing Aidsnot applicable Valuables Securedsent with family Glasses / Contactsnot applicable Bowel Prepno Cardiovascular Assessment: Apicalregular Radial Pulsespalpable Pedal Pulsespalpable Extremitieswarm, well perfused Respiratory Assessment: Respirationsunlabored regular Air Exchangegood, equal Breath Soundsclear Neurological Assessment: Level of Consciousnessalert, oriented Mobilitymoves all extremities Able to Express Selfyes Age Appropriateyes Emotional Statuscalm Preop Education: Surgical Site Infection Preventionyes Pain Scales and Managementyes Language / Communication: Language / CommunicationEnglish Electronic Signatures: Ines Rodriguez (YA) (Signed 08-Dec-2019 07:24) Authored: Preop Checklist Last Updated: 08-Dec-2019 07:24 by Ines Rodriguez (YA) Normal [facility] CORONAVIRUS 2019, SCREEN ASY MPTOMATICon 12-07-2019 CORONAVIRUS 2019,PCR NOT DETECTED Normal Not Detected [facility] Comment on above: Result Comment: . This assay is designed to detect SARS-CoV-2 based on replication of specific regions of the RNA from the SARS-CoV-2 virus. A Not Detected result does not preclude 2019-nCoV infection since the adequacy of sample collection and/or low viral burden may result in presence of viral nucleic acids below the clinical sensitivity of this test method. Fact sheet for providers: https://www.fda.gov/media/894381/download Fact sheet for patients: https://www.fda.gov/media/352660/download This test has been validated by the [employer] but FDA independent review of this validation is pending. This test has been verified by [facility] ([facility]). This test is only authorized for the duration of time that circumstances exist to justify the authorization of the emergency use of in vitro diagnostic tests for the detection of SARS-CoV-2 virus and/or diagnosis of COVID-19 infection under section 564(b)(1) of the Act, 21 U.S.C. 360bbb-3(b)(1), unless the authorization is terminated or revoked sooner. [facility] is certified under CLIA-88 as qualified to perform high complexity testing. Testing is performed in the [facility] laboratories located at [address] [place] [address]. Performed By: #### [facility] #### [address] [place] [address] CORONAVIRUS 2019, SCREEN ASY MPTOMATICon 12-06-2019 Lab Specimen Source Nasal, Nasopharyngeal Normal [facility] Comment on above: Performed By: #### [facility] #### [address] [place] [address] Patient Profile - Preop - Pe diatric v2on 07-14-2019 Patient Profile - Preop - Pediatric v2 Profile: Initial Info: How to be Addressedmacey Parent Namemother Nena Spoken Language PreferredEnglish Parental Spoken Language PreferredEnglish Parental Reading Language PreferredEnglish Source of Informationfamily Legal Custodiansee chart Stated Reason for Admissionwisdom teeth removed Primary Contact Name and Numbersee chart Patient Belongingsnone Are you currently using the Personal Electronic Health Record or [facility] Are you interested in learning more about [facility] for the management of your healthnot at this time Medications Brought to Hospitalno General Health: Pediatric Weight (kg)58.967 kilogram(s) Weight Methodstated Pediatric Height / Length (cm)157.48 centimeter(s) Height Methodstated BMI (kg/m2)23.777 square meter Patient or Family Member Reaction to Anesthesiapatient reaction; No cough, fever, vomiting or diarrhea in last 3 weeks. Little bit of a cold started @1-2 weeks ago, getting better now. No family history of malignant hyperthermia. Born full term. No secondhand smoke exposure at home. NOTE: mom has record from hospital with details on reaction to versed and delayed awakening if needed. This is the 3rd place pt's mother trying to have this surgery at as previous places would not do surgery. 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 for a year now Barriers to Managing Healthnone Are You no Are You Currently Breastfeedingno Relationship/Environ: Resource/Environmental Concernsnone Primary Caregivermother Lives Withmother Anticipated Transition [facility] Anticipated at Transitionnone Risk Screens: Advance Directive/DNRnot applicable Advance Directive Mental Healthnot applicable Patient is Able to be Assessed for Learningyes Factors Influence Readiness to Learnnone, ready to learn Factors Impact Ability to Learnnone Devices/Methods Used to Communicatenone Learning Preferencesskill demonstration, verbal instruction Cultural Considerationsnone Developmental Considerationsnone Jainism Considerationsnone Other learner availableno During the past month, have you often been bothered by feeling down, depressed or hopelessno During the past month, have you often had little interest or pleasure in doing thingsno Have you had any thoughts of harming yourselfno Have you had any thoughts of harming anyone [place] RiskPatient location auto qualifies him/her for HIGH RISK. Are there any cultural, spiritual, congregational practices/values/needs that are important for us to knowno Pain Scalenumerical 0-10 Pain Scale Educationteaching provided Current Pain Level0 = None Acceptable Pain Level0 = None Chronic Painno Additional Information: Information Review: Allergies, Home Meds and Significant Events have been Reviewed and Verified with Patient/Familyyes Allergy, Intolerance, Adverse Event: Allergies: penicillin: Drug, Hives/Urticaria, Active Versed: Drug, Psychosis, Active Latex: Latex, Hives/Urticaria, Active Significant Events: 14-Jul-2019 oral surgery: Past Surgical History, Active 14-Jul-2019 foot surgery: Past Surgical History, Active 14-Jul-2019 T&A: Past Surgical History, Active Electronic Signatures: Ines Rodriguez (RN) (Signed 08-Dec-2019 07:27) Authored: Profile, Additional Information Marilyn Hopkins (RN) (Signed 14-Jul-2019 14:37) Authored: Profile, Additional Information Last Updated: 08-Dec-2019 07:27 by Ines Rodriguez (YA) [facility] Clinical Summary: HMSPatient IDon 02-05-2019 OOP [facility] Work Phone: Clinical Summary: Data Submi tted by Patient in [place] 02-02-2019 #DEP CHLDRN No [facility] Work Phone: ALLERGY COMM Versed [facility] Work Phone: [facility] 2 floors [facility] Work Phone: DEP ALG LIST Penicillin,I don't h ave any food allergies.,Animals,Dust mites,Latex,Mold,Plant pollens (Hay Fever) [facility] Work Phone: DEP DRUG USE No [facility] Work Phone: DEP ETOH USE No [facility] Work Phone: DEP EXERCISE Yes [facility] Work Phone: DEP EXERTYP jogging, strength training, yoga, sports [facility] Work Phone: DEP MED LIST Concerta 18 mg Tab E r, 1 times per day,Prilosec 10 mg Oral, 1 times per day [facility] Work Phone: DEP PMH Difficulty with anesthesia, Fractures, GERD, Seizures [facility] Work Phone: DEP SH CSMO never smoker [facility] Work Phone: DEP SH MAST single [facility] Work Phone: DEP SH OCCUP Student [facility] Work Phone: DEP SURGERY Foot surgery, Tonsillectomy [facility] Work Phone: DEPADDLPROB Narcolepsy [facility] Work Phone: DEPEXER FREQ 5 days per week [facility] Work Phone: FATHER A/D Alive [facility] Work Phone: MEDICCOMMNTS Vitamin D (4000 jairo y) Diastat for emergency use Concerta for narcolepsy [facility] Work Phone: MOTHER A/D Alive [facility] Work Phone: RLATNSHPINFR Mother [facility] Work Phone: SWHOUTYPE house [facility] Work Phone: ED Provider Progress Noteon 06-03-2018 [employer] Authentication Interface Message Text Mikayla RomeronDOB: 2000Chief ComplaintPatient presents with Extremity Weakness CoughAllergiesAllergen Reactions Latex Hives bandaid Penicillins Hives Versed [Midazolam] Anxiety Very agitatedDOS: 06/03/2018The patient is a 17 y.o. female with a significant past medical history ofepilepsy and narcolepsy, who presents to the ED for evaluation of a barky cough,sore throat, and bilateral lower extremity numbness, pain, and weakness over thepast 2-3 days. The lower extremity symptoms did not ascend, and it has beenisolated to the calves down. Her pain improved with ibuprofen from a 03/16 tocurrently a -01/13. Exam shows normal bilateral feet flexion with left sidedweak extension. No prior similar past symptoms. The patient denies familialhistory of hypercoagulable state/neurodegenerative disease, back pain, numbnessor tingling in the lower extremities, saddle anesthesia, urinary incontinence,joint pain/swelling/erythemia , flank pain, UTI symptoms, fever, chills, nausea,vomiting, chest pain, SOB, rhinorrhea, or additional complaints.Review of SystemsConstitutional: Negative for activity change, appetite change, fatigue andfever.HENT: Positive for sore throat. Negative for congestion, ear discharge, ear painand rhinorrhea.Eyes: Negative for pain, discharge, redness and itching.Respiratory: Positive for cough (barky). Negative for chest tightness, shortnessof breath, wheezing and stridor.Cardiovascular: Negative for chest pain and palpitations.Gastrointe stinal: Negative for abdominal pain, blood in stool, constipation,diarrhea, nausea and vomiting.Genitourinary: Negative for decreased urine volume, dysuria, frequency,hematuria and urgency.Musculoskeletal : Positive for myalgias. Negative for back pain, joint swelling,neck pain and neck stiffness.Skin: Negative for rash and wound.Neurological: Positive for weakness (lower extremities) and numbness (lowerextremities). 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 She appearswell-developed and well-nourished. No distress.HENT:Head: Normocephalic and atraumatic.Right Ear: External ear normal.Left Ear: External ear normal.Mouth/Throat: No oropharyngeal exudate.Eyes: Pupils are equal, round, and reactive to light. Conjunctivae and EOM arenormal. Right eye exhibits no discharge. Left eye exhibits no discharge.Neck: Normal range of motion. Neck supple.Cardiovascular: Normal rate, regular rhythm and normal heart sounds.Pulmonary/Chest: Effort normal and breath sounds normal. There is cough (barky).No respiratory distress. She has no wheezes.Abdominal: Soft. Bowel sounds are normal. She exhibits no distension. There isno tenderness.Musculoskele nona: Normal range of motion. She exhibits tenderness (calves). Sheexhibits no edema or deformity.Neurological: She is alert and oriented to person, place, and time. She displaysnormal reflexes. No cranial nerve deficit.Weak dorsiflexion L>RSkin: Skin is warm and dry. No rash noted. She is not diaphoretic.Psychiatric : She has a normal mood and affect. Her behavior is normal.Nursing note and vitals reviewed.ProceduresMDMN umber of Diagnoses or Management OptionsCroup:Myositis of lower leg, unspecified laterality, unspecified myositis type:Diagnosis management comments: The patient is a 17 y.o. female with asignificant past medical history of epilepsy and narcolepsy, who presents to the for evaluation of a barky cough, sore throat, and bilateral lower extremitynumbness, pain, and weakness over the past 2-3 days. The patient ishemodynamically stable and appears well. She was not tachycardic upon myevaluation. Physical exam demonstrations a croupy cough, weak dorsiflexion withnormal sensation, pain to palpation of the bilateral calves, palpable pulses,intact reflexes, no joint effusion, no midline back pain, MMM, CLTAB, and asoft, non-tender, and non-distended abdomen. Symptoms are consistent with croupas well as viral myositis. Labs and images were not warranted at this time. Thepatient was given a dose of decadron. The family was informed of these findings.Motrin use as well as aggressive hydration were encouraged. Follow-upinstructions and return precautions were discussed. The patient was dischargedin stable condition.Diagnosis to highest level of medical certainty/plan:Final diagnoses:[J05.0] Croup[M60.9] Myositis of lower leg, unspecified laterality, unspecified myositis Aashish Chew MD11:50 AMAttending Notes:I have reviewed the resident's chart and I have edited the notes with strikethrough to reflect the accuracy of the notes. I agree with the findings asdescribed. I have discussed the history and findings Of the resident and Kavitha re-performed the history and exam of the child. I conducted interview andperformed a physical exam as pertinent on the patient. The RN notes have beenreviewed by me. Pertinent old records have been reviewed The differentialdiagnosis and management options were discussed with the resident, as part oftheir education. I in turn discussed the management plan with the family. Theplan of care implemented has been discussed with the resident and with thefamily before they were carried out. Management plans were carried out asneededduring the course of care of the patient in the ED. All questions were answered and the family/patient/caretake r were encouraged toask questions or to call back. The patient's legal family/daycare director was presentduring most of my interaction with the patient and final disposition.Patient is well hydrated, non toxic, not lethargic, or irritable, and isappropriate per age. There are no signs clinically of meningitis, chest clearwith no retn or distress, no pallor or cyanosis, cvs normal with adequateperfusionNo stridor at rest no drooling po good no suggestion of FB per parents. Nosuggestion clinically of tracheitis, no distress no retnalso c/o pain in both legs dtr normalEffort weakness in left leg nv intact no lower back pain Normal [facility] MRI NECK WITHOUT CONTRASTon 09-29-2017 MRI NECK WITHOUT CONTRAST CLINICAL HISTORY: Persistent neck pain not resolving over three monthsTECHNIQUE: Multiplanar multisequence imaging of the neck was performed withoutcontrast.COMPARI SON: NoneFINDINGS:A few nonenlarged lymph nodes are seen along the jugular chain and posteriortriangle. No mass is identified. No abscess is seen.The salivary glands have normal appearance. There is no adenotonsillarenlargeme nt. The airway appears patent. The muscles demonstrate normal signal.Limited visualization of the brain parenchyma and paranasal sinuses isunremarkable.The spinal cord has a normal appearance. The cervical and upper thoracic anddisc are of normal morphology and signal.IMPRESSION:[place] unremarkable MRI of the neck. A few scattered nonenlarged lymphnodes.This report has been created using voice recognition software. It may containminor errors which are inherent in voice recognition technologySigned by: Dr. Janee Vasquez at 09/29/2017 16:16 Normal [facility] Progress Noteon 09-15-2017 [employer] Authentication Interface Message Text Mikayla Blunt is here for consultation at the request of Eileen Nair DO for:New Patient Visit (lymph nodes all swollen)AssessmentMikayla is a 17 year old who comes to me with complaints of neck pain and enlargednodes along with leg weakness. On my exam today she has no enlarged neck nodes.She has midline neck pain, but movements are easy in neck.Neurological exam of legs is fine in my opinion. Labs are showing normal CBC andCRP making an abscess very unlikelyTo be prudent I am ordering an MRI of her neck. No indication based on exam todo a MRI lower spine. However, I am aware that neck pain would not fully explainlower leg pain without any weakness in arms, trunks and bowel and bladdersymptoms. Not sure there is anything else for an ID doctor to work up. Ifproblems persist she may consult her neurologist about leg weakness and neckpain.Follow up to be determined by scan results.PlanMRI neckNo additional labs done today, reviewed from Care everywhereWill follow with family once imaging results available.History of Present IllnessThe history is provided by the patient and the mother.Mikayla is a 17 year old female who has past medical problems that are outlined inher medical history. She comes for a new patient consultation for neck pain allthe time. 3 months ago she had fever, enlarged lymph nodes all around the neck,leg weakness. She then went to see her PCP who put her on antibiotic. Did a xray of her neck and saw nothing abnormal.Saw ENT in [place], felt certain she had [place] based on enlarged nodes, howevershe had negative testing for the same.Neck pain preceded enlarged nodes.She started to feel better and antibiotic done. Nodes started improving also.A week later she started getting worse and had mucopurulent and bloody nose,neck pain worse and nodes are more prominentSaw PCP again. Not sure if they are related or notOn omnicef again. Still has leg weakness and neck pain. Leg weakness is mostprominent in the morning. Neck pain is worse at night. Vitamin D levels arenormal on a recent checkNo low back painOn lamictal, weaning slowlyShe could have had fever, but not checkedNo problem with bowel or bladder function or sensationRegular monthly cyclesNo weight lossEating okay stillNo hair lossLikes to play Tennis, in door. Still able to playFamilyMother, father, brother2 dogsNo sick contactsUp to date with shotsAllergies are listed in the relevant sectionReview of SystemsReview of Systems:All other systems reviewed and are negativeRecent Lab ResultsRecent Imaging FindingsNo results found.Physical ExaminationVitals: BP 136/82 Pulse 84 Temp 36.6 C (97.9 F) (Temporal) Resp 24 Ht 155 cm Wt 56.1 kg LMP 09/03/2017 (Approximate) BMI 23.35 kg/m Infectious Disease Physical ExamGeneral: Patient appears healthy, well developed, well nourished, in no acutedistressHead: atraumatic and normocephalicNeuro: alert, oriented appropriately for ageEyes: pupils equal, round, and reactive to light, sclera and conjunctiva clear,bilateral red reflex presentEars: canals clear, normal, tragus nontender, TMs normal bilaterally.Nose: nares patent without dischargeThroat: Moist mucosa, no lesions, no tonsillar enlargementNeck: supple, no adenopathy, no thyroid enlargementChest: breath sounds are clear to auscultation bilaterally without rales,rhonchi, or wheezes, breathing comfortably on room air, no retractionsCardiac: regular rate and rhythm, normal S1 and S2, no murmur, rub, or gallop,peripheral pulses strong and equal, capillary refill <2 secAbdomen: abdomen is soft, nontender, and nondistended without hepatosplenomegalyor masses and positive bowel sounds in all 4 quadrantsBack: no rashSkin: pink, warm, well perfused, no rash.Lymphatic: no supraclavicular adenopathy noted and no cervical adenopathy notedMusculoskeletal: normal tone, moves all extremities equally with full range ofmotionMedicationsOutp atient Encounter Prescriptions as of 09/15/2017Medication Sig Dispense Refill Cholecalciferol (VITAMIN D3) 1000 units tablet Take by mouth daily cefdinir (OMNICEF) 300 MG capsule Take by mouth every 12 hours Multiple Vitamin (MULTI VITAMIN DAILY PO) Take by mouth LamoTRIgine (LAMICTAL PO) Take by mouth Methylphenidate HCl (CONCERTA PO) Take by mouth Clobazam (ONFI PO) Take by mouth Lansoprazole (PREVACID PO) Take by mouth Multiple Vitamin (MULTI-VITAMIN DAILY PO) Take by mouthNo facility-administered encounter medications on file as of 09/15/2017.Past Medical HistoryPast Medical History:Diagnosis Date Narcolepsy PONV (postoperative nausea and vomiting) Seizures last seizure was 2 yrs agoPast Surgical HistoryPast Surgical History:Procedure Laterality Date DENTAL SURGERY FOOT SURGERY Right 04/06/2015 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 brevis interpostionperformed by Albert Hilario MD at [facility] OR TEAR DUCT SURGERY TONSILLECTOMY AND ADENOIDECTOMYFamily Medical HistoryFamily HistoryProblem Relation Age of Onset Anesth Problems Neg Hx Bleeding Prob Neg HxSocial HistorySocial HistorySocial History Marital status: Single Spouse name: N/A Number of children: N/A Years of education: N/ASocial History Main Topics Smoking status: Never Smoker Smokeless tobacco: Never Used Alcohol use Not on file Drug use: Unknown Sexual activity: Not on fileOther Topics Concern Not on fileSocial History Narrative No narrative on fileID HistoryInfectious DiseaseImmunizationsImm unization HistoryAdministered Date(s) Administered Influenza Vaccine 0.5 mL Quadrivalent (PF) 05/10/2015, 04/30/2016, 04/01/2017Counseling and/or coordination of care (face to face) was greater than 60minutes which is more than 50% of the total time of 85 minutes spent on theencounter.Janee Kay, [facility] 2017 Normal [facility] No Panel Information [facility] Vital Signs Date Time Vital Sign Value Performing Clinician Facility 03-15-2025 09:18-0400 Body height 157.5 cm Pacc 1 Work Phone: [facility] 03-15-2025 09:18-0400 Body mass index (BMI) [Ratio] 23.56 kg/m2 Pacc 1 Work Phone: [facility] 03-15-2025 09:18-0400 Body temperature 98.1 [degF] Pacc 1 Work Phone: [facility] 03-15-2025 09:18-0400 Body weight 58.42 kg Pacc 1 Work Phone: [facility] 03-15-2025 09:18-0400 Diastolic blood pressure 56 mm[Hg] Pacc 1 Work Phone: [facility] 03-15-2025 09:18-0400 Heart rate 92 /min Pacc 1 Work Phone: [facility] 03-15-2025 09:18-0400 Respiratory rate 12 /min Pacc 1 Work Phone: [facility] 03-15-2025 09:18-0400 SaO2% (BldA) [Mass fraction] 98 % Pacc 1 Work Phone: [facility] 03-15-2025 09:18-0400 Systolic blood pressure 104 mm[Hg] Pacc 1 Work Phone: [facility] 03-09-2025 09:56-0400 Body height 157.5 cm Bernie Martines MD Work Phone: [facility] 03-09-2025 09:56-0400 Body mass index (BMI) [Ratio] 23.23 kg/m2 Bernie Martines MD Work Phone: [facility] 03-09-2025 09:56-0400 Body weight 57.61 kg Bernie Martines MD Work Phone: [facility] 03-09-2025 09:56-0400 Diastolic blood pressure 73 mm[Hg] Bernie Martines MD Work Phone: [facility] 03-09-2025 09:56-0400 Heart rate 82 /min Bernie Martines MD Work Phone: [facility] 03-09-2025 09:56-0400 SaO2% (BldA) [Mass fraction] 96 % Bernie Martines MD Work Phone: [facility] 03-09-2025 09:56-0400 Systolic blood pressure 110 mm[Hg] Bernie Martines MD Work Phone: [facility] 02-28-2025 14:36-0400 Body height 157.48 cm Carly Callejas MD Work Phone: [facility] 02-28-2025 14:34-0400 Body mass index (BMI) [Ratio] 22.6 kg/m2 Carly Callejas MD Work Phone: [facility] 02-28-2025 14:34-0400 Body weight 56.24 kg Carly Callejas MD Work Phone: [facility] 02-28-2025 14:34-0400 Diastolic blood pressure 83 mm[Hg] Carly Callejas MD Work Phone: [facility] 02-28-2025 14:34-0400 Systolic blood pressure 126 mm[Hg] Carly Callejas MD Work Phone: [facility] 02-02-2025 13:10-0400 Diastolic blood pressure 68 mm[Hg] Anderson Barker DO Work Phone: [facility] 02-02-2025 13:10-0400 Heart rate 67 /min Anderson Barker DO Work Phone: [facility] 02-02-2025 13:10-0400 Respiratory rate 25 /min Anderson Barker DO Work Phone: [facility] 02-02-2025 13:10-0400 SaO2% (BldA) [Mass fraction] 100 % Anderson Barker DO Work Phone: [facility] 02-02-2025 13:10-0400 Systolic blood pressure 108 mm[Hg] Anderson Barker DO Work Phone: [facility] 02-02-2025 12:42-0400 Body temperature 97.5 [degF] Anderson Barker DO Work Phone: [facility] 01-26-2025 08:10-0400 Body height 157.5 cm Pacc 1 Work Phone: [facility] 01-26-2025 08:10-0400 Body mass index (BMI) [Ratio] 22.75 kg/m2 Pacc 1 Work Phone: [facility] 01-26-2025 08:10-0400 Body weight 56.43 kg Pacc 1 Work Phone: [facility] 01-26-2025 08:10-0400 Diastolic blood pressure 70 mm[Hg] Pacc 1 Work Phone: [facility] 01-26-2025 08:10-0400 Heart rate 83 /min Pacc 1 Work Phone: [facility] 01-26-2025 08:10-0400 Respiratory rate 16 /min Pacc 1 Work Phone: [facility] 01-26-2025 08:10-0400 SaO2% (BldA) [Mass fraction] 98 % Pacc 1 Work Phone: [facility] 01-26-2025 08:10-0400 Systolic blood pressure 104 mm[Hg] Pacc 1 Work Phone: [facility] 01-19-2025 11:40-0400 Body height 157.5 cm Yung Celeste MD Work Phone: [facility] 01-19-2025 11:40-0400 Body mass index (BMI) [Ratio] 22.17 kg/m2 Yung Celeste MD Work Phone: [facility] 01-19-2025 11:40-0400 Body temperature 98.1 [degF] Yung Celeste MD Work Phone: [facility] 01-19-2025 11:40-0400 Body weight 54.98 kg Yung Celeste MD Work Phone: [facility] 01-19-2025 11:40-0400 Diastolic blood pressure 76 mm[Hg] Yung Celeste MD Work Phone: [facility] 01-19-2025 11:40-0400 Heart rate 75 /min Yung Celeste MD Work Phone: [facility] 01-19-2025 11:40-0400 Systolic blood pressure 117 mm[Hg] Yung Celeste MD Work Phone: [facility] 12-22-2024 12:20-0400 Body height 157.48 cm Carly Callejas MD Work Phone: [facility] 12-22-2024 12:20-0400 Body mass index (BMI) [Ratio] 21.7 kg/m2 Carly Callejas MD Work Phone: [facility] 12-22-2024 12:20-0400 Body temperature 97.3 [degF] Carly Callejas MD Work Phone: [facility] 12-22-2024 12:20-0400 Body weight 53.97 kg Carly Callejas MD Work Phone: [facility] 12-22-2024 12:20-0400 Diastolic blood pressure 80 mm[Hg] Craly Callejas MD Work Phone: [facility] 12-22-2024 12:20-0400 Heart rate 89 /min Carly Callejas MD Work Phone: [facility] 12-22-2024 12:20-0400 Respiratory rate 16 /min Carly Callejas MD Work Phone: [facility] 12-22-2024 12:20-0400 SaO2% (BldA) [Mass fraction] 94 % Carly Callejas MD Work Phone: [facility] 12-22-2024 12:20-0400 Systolic blood pressure 110 mm[Hg] Carly Callejas MD Work Phone: [facility] 12-14-2024 14:32-0400 Body temperature 98.1 [degF] Carly Callejas MD Work Phone: [facility] 12-14-2024 14:32-0400 Diastolic blood pressure 62 mm[Hg] Carly Callejas MD Work Phone: [facility] 12-14-2024 14:32-0400 Heart rate 79 /min Carly Callejas MD Work Phone: [phone] [place] [address] 12-14-2024 14:32-0400 Respiratory rate 16 /min Carly Callejas MD Work Phone: [facility] 12-14-2024 14:32-0400 SaO2% (BldA) [Mass fraction] 97 % Carly Callejas MD Work Phone: [facility] 12-14-2024 14:32-0400 Systolic blood pressure 110 mm[Hg] Carly Callejas MD Work Phone: [facility] 12-14-2024 11:57-0400 Body height 157.48 cm Caryl Callejas MD Work Phone: [facility] 12-14-2024 11:57-0400 Body mass index (BMI) [Ratio] 21.5 kg/m2 Carly Callejas MD Work Phone: [facility] 12-14-2024 11:57-0400 Body weight 53.52 kg Carly Callejas MD Work Phone: [facility] 12-08-2024 14:31-0400 Body temperature 98 [degF] Carly Callejas MD Work Phone: [facility] 12-08-2024 14:31-0400 Diastolic blood pressure 67 mm[Hg] Carly Callejas MD Work Phone: [facility] 12-08-2024 14:31-0400 Heart rate 81 /min Carly Callejas MD Work Phone: [facility] 12-08-2024 14:31-0400 Respiratory rate 16 /min Carly Callejas MD Work Phone: [facility] 12-08-2024 14:31-0400 SaO2% (BldA) [Mass fraction] 98 % Carly Callejas MD Work Phone: [facility] 12-08-2024 14:31-0400 Systolic blood pressure 120 mm[Hg] Carly Callejas MD Work Phone: [facility] 12-08-2024 12:16-0400 Body height 157.48 cm Carly Callejas MD Work Phone: [facility] 12-08-2024 12:16-0400 Body mass index (BMI) [Ratio] 21.5 kg/m2 Carly Callejas MD Work Phone: [facility] 12-08-2024 12:16-0400 Body weight 53.52 kg Carly Callejas MD Work Phone: [facility] 12-07-2024 09:57-0400 Body height 157.48 cm Carly Callejas MD Work Phone: [facility] 12-07-2024 09:57-0400 Body mass index (BMI) [Ratio] 21.5 kg/m2 Carly Callejas MD Work Phone: [facility] 12-07-2024 09:57-0400 Body weight 53.52 kg Carly Callejas MD Work Phone: [facility] 12-07-2024 09:57-0400 Diastolic blood pressure 84 mm[Hg] Carly Callejas MD Work Phone: [facility] 12-07-2024 09:57-0400 Systolic blood pressure 134 mm[Hg] Carly Callejas MD Work Phone: [facility] 11-13-2024 23:01-0400 Body temperature 98.2 [degF] Carly Callejas MD Work Phone: [facility] 11-13-2024 23:01-0400 Diastolic blood pressure 67 mm[Hg] Carly Callejas MD Work Phone: [facility] 11-13-2024 23:01-0400 Heart rate 89 /min Carly Callejas MD Work Phone: [facility] 11-13-2024 23:01-0400 Respiratory rate 14 /min Carly Callejas MD Work Phone: [facility] 11-13-2024 23:01-0400 SaO2% (BldA) [Mass fraction] 100 % Carly Callejas MD Work Phone: [facility] 11-13-2024 23:01-0400 Systolic blood pressure 112 mm[Hg] Carly Callejas MD Work Phone: [facility] 11-13-2024 20:17-0400 Body height 157.48 cm Carly Callejas MD Work Phone: [facility] 11-13-2024 20:17-0400 Body mass index (BMI) [Ratio] 21.8 kg/m2 Carly Callejas MD Work Phone: [facility] 11-13-2024 20:17-0400 Body weight 54.2 kg Carly Callejas MD Work Phone: [facility] 11-01-2024 13:56-0400 Body height 157.5 cm Yung Celeste MD Work Phone: [facility] 11-01-2024 13:56-0400 Body mass index (BMI) [Ratio] 21.58 kg/m2 Yung Celeste MD Work Phone: [facility] 11-01-2024 13:56-0400 Body temperature 98.49 [degF] Yung Celeste MD Work Phone: [facility] 11-01-2024 13:56-0400 Body weight 53.52 kg Yung Celeste MD Work Phone: [facility] 11-01-2024 13:56-0400 Diastolic blood pressure 77 mm[Hg] Yung Celeste MD Work Phone: [facility] 11-01-2024 13:56-0400 Heart rate 68 /min Yung Celeste MD Work Phone: [facility] 11-01-2024 13:56-0400 Systolic blood pressure 115 mm[Hg] Yung Celeste MD Work Phone: [facility] [facility] 09-19-[facility]24 09:57-0400 Body height 154.94 cm Carly Callejas MD Work Phone: [facility] 09-19-2024 09:57-0400 Body mass index (BMI) [Ratio] 22.3 kg/m2 Carly Callejas MD Work Phone: [facility] 09-19-2024 09:57-0400 Body temperature 98.6 [degF] Carly Callejas MD Work Phone: [facility] 09-19-2024 09:57-0400 Body weight 53.63 kg Carly Callejas MD Work Phone: [facility] 09-19-2024 09:57-0400 Diastolic blood pressure 72 mm[Hg] Carly Callejas MD Work Phone: [facility] 09-19-2024 09:57-0400 Heart rate 84 /min Carly Callejas MD Work Phone: [facility] 09-19-2024 09:57-0400 Respiratory rate 16 /min Carly Callejas MD Work Phone: [facility] 09-19-2024 09:57-0400 SaO2% (BldA) [Mass fraction] 99 % Carly Callejas MD Work Phone: [facility] 09-19-2024 09:57-0400 Systolic blood pressure 106 mm[Hg] Carly Callejas MD Work Phone: [facility] 09-15-2024 10:14-0400 Body height 157.5 cm Bernie Martines MD Work Phone: [facility] 09-15-2024 10:14-0400 Body mass index (BMI) [Ratio] 21.03 kg/m2 Bernie Martines MD Work Phone: [facility] 09-15-2024 10:14-0400 Body temperature 97.7 [degF] Bernie Martines MD Work Phone: [facility] 09-15-2024 10:14-0400 Body weight 52.16 kg Bernie Martines MD Work Phone: [facility] 09-15-2024 10:14-0400 Diastolic blood pressure 74 mm[Hg] Bernie Martines MD Work Phone: [facility] 09-15-2024 10:14-0400 Heart rate 74 /min Bernie Martines MD Work Phone: [facility] 09-15-2024 10:14-0400 SaO2% (BldA) [Mass fraction] 99 % Bernie Martines MD Work Phone: [facility] 09-15-2024 10:14-0400 Systolic blood pressure 114 mm[Hg] Bernie Martines MD Work Phone: [facility] 07-19-2024 13:01-0500 Diastolic blood pressure 79 mm[Hg] Carissa Espana MD Work Phone: [facility] 07-19-2024 13:01-0500 Heart rate 66 /min Carissa Espana MD Work Phone: [facility] 07-19-2024 13:01-0500 Respiratory rate 16 /min Carissa Espana MD Work Phone: [facility] 07-19-2024 13:01-0500 SaO2% (BldA) [Mass fraction] 100 % Carissa Espana MD Work Phone: [facility] 07-19-2024 13:01-0500 Systolic blood pressure 109 mm[Hg] Carissa Espana MD Work Phone: [facility] 07-19-2024 12:22-0500 Body temperature 97.7 [degF] Carissa Espana MD Work Phone: [facility] 07-13-2024 08:36-0500 Body height 156.2 cm Alan Cortés MD Work Phone: [facility] 07-13-2024 08:36-0500 Body mass index (BMI) [Ratio] 21.43 kg/m2 Alan Cortés MD Work Phone: [facility] 07-13-2024 08:36-0500 Body temperature 98.6 [degF] Alan Cortés MD Work Phone: [facility] 07-13-2024 08:36-0500 Body weight 52.3 kg Alan Cortés MD Work Phone: [facility] 07-13-2024 08:36-0500 Diastolic blood pressure 82 mm[Hg] Alan Cortés MD Work Phone: [facility] 07-13-2024 08:36-0500 Heart rate 85 /min Alan Cortés MD Work Phone: [facility] 07-13-2024 08:36-0500 Systolic blood pressure 128 mm[Hg] Alan Cortés MD Work Phone: [facility] 06-15-2024 12:07-0500 Body mass index (BMI) [Ratio] 21.7 kg/m2 Carly Callejas MD Work Phone: [facility] 06-15-2024 12:07-0500 Body weight 52.21 kg Carly Callejas MD Work Phone: [facility] 06-15-2024 12:07-0500 Diastolic blood pressure 82 mm[Hg] Carly Callejas MD Work Phone: [facility] 06-15-2024 12:07-0500 Systolic blood pressure 121 mm[Hg] Carly Callejas MD Work Phone: [facility] 06-14-2024 15:51-0500 Body mass index (BMI) [Ratio] 21.7 kg/m2 Carly Callejas MD Work Phone: [facility] 06-14-2024 15:51-0500 Body weight 52.16 kg Carly Callejas MD Work Phone: [facility] 06-14-2024 15:51-0500 Diastolic blood pressure 74 mm[Hg] Carly Callejas MD Work Phone: [facility] 06-14-2024 15:51-0500 Systolic blood pressure 124 mm[Hg] Carly Callejas MD Work Phone: [facility] 05-26-2024 09:45-0500 Body height 157.5 cm Bernie Martines MD Work Phone: [facility] 05-26-2024 09:45-0500 Body mass index (BMI) [Ratio] 21.38 kg/m2 Bernie Martines MD Work Phone: [facility] 05-26-2024 09:45-0500 Body temperature 98.49 [degF] Bernie Martines MD Work Phone: [facility] 05-26-2024 09:45-0500 Body weight 53.02 kg Bernie Martines MD Work Phone: [facility] 05-26-2024 09:45-0500 Diastolic blood pressure 75 mm[Hg] Bernie Martines MD Work Phone: [facility] 05-26-2024 09:45-0500 Heart rate 85 /min Bernie Martines MD Work Phone: [facility] 05-26-2024 09:45-0500 SaO2% (BldA) [Mass fraction] 100 % Bernie Martines MD Work Phone: [facility] 05-26-2024 09:45-0500 Systolic blood pressure 115 mm[Hg] Bernie Martines MD Work Phone: [facility] 04-09-2024 10:00-0400 Diastolic blood pressure 62 mm[Hg] Dustin Tamayo DO Work Phone: [facility] 04-09-2024 10:00-0400 Heart rate 59 /min Dustin Dixone DO Work Phone: [facility] 04-09-2024 10:00-0400 Respiratory rate 16 /min Dustin Dixone DO Work Phone: [facility] 04-09-2024 10:00-0400 SaO2% (BldA) [Mass fraction] 100 % Dustin Tamayo DO Work Phone: [facility] 04-09-2024 10:00-0400 Systolic blood pressure 102 mm[Hg] Dustin Dixone DO Work Phone: [facility] 04-09-2024 09:26-0400 Body temperature 97.9 [degF] Dustin Dixone DO Work Phone: [facility] 03-24-2024 09:05-0400 Body height 157.5 cm [facility] 03-24-2024 09:05-0400 Body mass index (BMI) [Ratio] 20.67 kg/m2 [facility] 03-24-2024 09:05-0400 Body weight 51.26 kg [facility] 03-17-2024 11:20-0400 Body height 157.5 cm May Frias CATALYST UNIT OPERATOR.CORRECTIONAL PROBATION OFFICER Work Phone: [facility] 03-17-2024 11:20-0400 Body mass index (BMI) [Ratio] 20.65 kg/m2 May Frias CATALYST UNIT OPERATOR.CORRECTIONAL PROBATION OFFICER Work Phone: [facility] 03-17-2024 11:20-0400 Body weight 51.2 kg May Firas CATALYST UNIT OPERATOR.CORRECTIONAL PROBATION OFFICER Work Phone: [facility] 03-17-2024 11:20-0400 Diastolic blood pressure 75 mm[Hg] May Frias CATALYST UNIT OPERATOR.CORRECTIONAL PROBATION OFFICER Work Phone: [facility] 03-17-2024 11:20-0400 Heart rate 74 /min May Frias CATALYST UNIT OPERATOR.CORRECTIONAL PROBATION OFFICER Work Phone: [facility] 03-17-2024 11:20-0400 Systolic blood pressure 120 mm[Hg] May Frias CATALYST UNIT OPERATOR.CORRECTIONAL PROBATION OFFICER Work Phone: [facility] 03-04-2024 12:56-0400 Body height 157.5 cm Pacc 2 Work Phone: [facility] 03-04-2024 12:56-0400 Body mass index (BMI) [Ratio] 20.81 kg/m2 Pacc 2 Work Phone: [facility] 03-04-2024 12:56-0400 Body temperature 98.1 [degF] Pacc 2 Work Phone: [facility] 03-04-2024 12:56-0400 Body weight 51.6 kg Pacc 2 Work Phone: [facility] 03-04-2024 12:56-0400 Diastolic blood pressure 77 mm[Hg] Pacc 2 Work Phone: [facility] 03-04-2024 12:56-0400 Heart rate 82 /min Pacc 2 Work Phone: [facility] 03-04-2024 12:56-0400 Respiratory rate 16 /min Pacc 2 Work Phone: [facility] 03-04-2024 12:56-0400 SaO2% (BldA) [Mass fraction] 98 % Pacc 2 Work Phone: [facility] 03-04-2024 12:56-0400 Systolic blood pressure 109 mm[Hg] Pacc 2 Work Phone: [facility] 03-02-2024 15:26-0400 Body height 157.5 cm Lisy Rodriguez MD Work Phone: [facility] 03-02-2024 15:26-0400 Body mass index (BMI) [Ratio] 20.85 kg/m2 Lisy Rodriguez MD Work Phone: [facility] 03-02-2024 15:26-0400 Body weight 51.71 kg Lisy Rodriguez MD Work Phone: [facility] 03-02-2024 15:26-0400 Diastolic blood pressure 76 mm[Hg] Lisy Rodriguez MD Work Phone: [facility] 03-02-2024 15:26-0400 Heart rate 67 /min Lisy Rodriguez MD Work Phone: [facility] 03-02-2024 15:26-0400 Respiratory rate 20 /min Lisy Rodriguez MD Work Phone: [facility] 03-02-2024 15:26-0400 Systolic blood pressure 114 mm[Hg] Lisy Rodriguez MD Work Phone: [facility] 03-01-2024 09:31-0400 Body height 157.5 cm Dustin Tamayo DO Work Phone: [facility] 03-01-2024 09:31-0400 Body mass index (BMI) [Ratio] 20.93 kg/m2 Dustin Dixone DO Work Phone: [facility] 03-01-2024 09:31-0400 Body weight 51.9 kg Dustin Tamayo DO Work Phone: [facility] 03-01-2024 09:31-0400 Diastolic blood pressure 82 mm[Hg] Dustin Tamayo DO Work Phone: [facility] 03-01-2024 09:31-0400 Heart rate 70 /min Dustin Tamayo DO Work Phone: [facility] 03-01-2024 09:31-0400 Respiratory rate 16 /min Dustin Tamayo DO Work Phone: [facility] 03-01-2024 09:31-0400 SaO2% (BldA) [Mass fraction] 100 % Dustin Tamayo DO Work Phone: [facility] 03-01-2024 09:31-0400 Systolic blood pressure 117 mm[Hg] Dustin Tamayo DO Work Phone: [facility] 02-11-2024 10:00-0400 Body height 157.5 cm Bernie Martines MD Work Phone: [facility] 02-11-2024 10:00-0400 Body mass index (BMI) [Ratio] 21.03 kg/m2 Bernie Martines MD Work Phone: [facility] 02-11-2024 10:00-0400 Body weight 52.16 kg Bernie Martines MD Work Phone: [facility] 12-11-2023 11:01-0400 Body mass index (BMI) [Ratio] 21.9 kg/m2 Lizbet Rider MD Work Phone: [facility] 12-11-2023 11:01-0400 Body weight 53.43 kg Lizbet Rider MD Work Phone: [facility] 12-11-2023 11:01-0400 Diastolic blood pressure 60 mm[Hg] Lizbet Rider MD Work Phone: [facility] 12-11-2023 11:01-0400 Systolic blood pressure 100 mm[Hg] Lizbet Rider MD Work Phone: [facility] 12-09-2023 11:49-0400 Body mass index (BMI) [Ratio] 21.9 kg/m2 Lizbeth Constantino MD Work Phone: [facility] 12-09-2023 11:49-0400 Body weight 53.43 kg Lizbeth Constantino MD Work Phone: [facility] 12-09-2023 11:49-0400 Diastolic blood pressure 60 mm[Hg] Lizbeth Constantino MD Work Phone: [facility] 12-09-2023 11:49-0400 Systolic blood pressure 90 mm[Hg] Lizbeth Constantino MD Work Phone: [facility] 11-14-2023 08:26-0400 Body height 156.2 cm Lizbet Rider MD Work Phone: [facility] 11-14-2023 08:26-0400 Body mass index (BMI) [Ratio] 22.12 kg/m2 Lizbet Rider MD Work Phone: [facility] 11-14-2023 08:26-0400 Body weight 53.98 kg Lizbet Rider MD Work Phone: [facility] 11-14-2023 08:26-0400 Diastolic blood pressure 68 mm[Hg] Lizbet Rider MD Work Phone: [facility] 11-14-2023 08:26-0400 Systolic blood pressure 110 mm[Hg] Lizbet Rider MD Work Phone: [facility] 11-12-2023 08:31-0400 Body height 157.5 cm Bernie Martines MD Work Phone: [facility] 11-12-2023 08:31-0400 Body mass index (BMI) [Ratio] 21.22 kg/m2 Bernie Martines MD Work Phone: [facility] 11-12-2023 08:31-0400 Body temperature 97.39 [degF] Bernie Martines MD Work Phone: [facility] 11-12-2023 08:31-0400 Body weight 52.62 kg Bernie Martines MD Work Phone: [facility] 11-12-2023 08:31-0400 Diastolic blood pressure 76 mm[Hg] Bernie Martines MD Work Phone: [facility] 11-12-2023 08:31-0400 Heart rate 85 /min Bernie Martines MD Work Phone: [facility] 11-12-2023 08:31-0400 SaO2% (BldA) [Mass fraction] 100 % Bernie Martines MD Work Phone: [facility] 11-12-2023 08:31-0400 Systolic blood pressure 115 mm[Hg] Bernie Martines MD Work Phone: [facility] 10-14-2023 07:55-0400 Body height 157.5 cm Praneeth Jaffe MD Work Phone: [facility] 10-14-2023 07:55-0400 Body temperature 97.5 [degF] Praneeth Jaffe MD Work Phone: [facility] 10-14-2023 07:55-0400 Body weight 53.1 kg Praneeth Jaffe MD Work Phone: [facility] 10-14-2023 07:55-0400 Diastolic blood pressure 78 mm[Hg] Praneeth Jaffe MD Work Phone: [facility] 10-14-2023 07:55-0400 Heart rate 73 /min Praneeth Jaffe MD Work Phone: [facility] 10-14-2023 07:55-0400 SaO2% (BldA) [Mass fraction] 100 % Praneeth Jaffe MD Work Phone: [facility] 10-14-2023 07:55-0400 Systolic blood pressure 120 mm[Hg] Praneeth Jaffe MD Work Phone: [facility] 09-12-2023 15:43-0500 Body temperature 97.7 [degF] [facility] 09-12-2023 15:43-0500 Diastolic blood pressure 79 mm[Hg] [facility] 09-12-2023 15:43-0500 Heart rate 86 /min [facility] 09-12-2023 15:43-0500 Respiratory rate 14 /min [facility] 09-12-2023 15:43-0500 SaO2% (BldA) [Mass fraction] 99 % [facility] 09-12-2023 15:43-0500 Systolic blood pressure 116 mm[Hg] [facility] 09-12-2023 11:01-0500 Body height 157 cm [facility] 09-12-2023 11:01-0500 Body mass index (BMI) [Ratio] 22.1 kg/m2 [facility] 09-12-2023 11:01-0500 Body weight 54.43 kg [facility] 09-10-2023 09:43-0500 Body weight 54.43 kg [facility] 08-28-2023 02:49-0500 Body temperature 97.9 [degF] [facility] 08-28-2023 02:49-0500 Diastolic blood pressure 73 mm[Hg] [facility] 08-28-2023 02:49-0500 Heart rate 82 /min [facility] 08-28-2023 02:49-0500 Respiratory rate 22 /min [facility] 08-28-2023 02:49-0500 SaO2% (BldA) [Mass fraction] 95 % [facility] 08-28-2023 02:49-0500 Systolic blood pressure 101 mm[Hg] [facility] 08-27-2023 19:44-0500 Body height 157.48 cm [facility] 08-27-2023 19:44-0500 Body mass index (BMI) [Ratio] 21.7 kg/m2 [facility] 08-27-2023 19:44-0500 Body weight 53.97 kg [facility] 06-09-2023 12:49-0500 Diastolic blood pressure 88 mm[Hg] Dr. Eileen Nair Work Phone: [facility] 06-09-2023 12:49-0500 Heart rate 83 /min Dr. Eileen Nair Work Phone: [facility] 06-09-2023 12:49-0500 Respiratory rate 18 /min Dr. Eileen Nair Work Phone: [facility] 06-09-2023 12:49-0500 SaO2% (BldA) [Mass fraction] 98 % Dr. Eileen Nair Work Phone: [facility] 06-09-2023 12:49-0500 Systolic blood pressure 102 mm[Hg] Dr. Eileen Nair Work Phone: [facility] 06-09-2023 08:07-0500 Body height 157.[address] Eileen Nair Work Phone: [facility] 06-09-2023 08:07-0500 Body mass index (BMI) [Ratio] 21.4 kg/m2 Dr. Eileen Nair Work Phone: [facility] 06-09-2023 08:07-0500 Body temperature 98 [degF] Dr. Eileen Nair Work Phone: [facility] 06-09-2023 08:07-0500 Body weight 53.[address] Eileen Nair Work Phone: [facility] 05-23-2023 14:41-0500 Body height 157.5 cm Clifford Nicolas DPM Work Phone: [facility] 05-23-2023 14:41-0500 Body weight 52.16 kg Clifford Nicolas DPM Work Phone: [facility] 05-23-2023 14:41-0500 Respiratory rate 20 /min Clifford Nicolas DPM Work Phone: [facility] 04-30-2023 09:58-0400 Body height 157.5 cm Clifford Nicolas DPM Work Phone: [facility] 04-30-2023 09:58-0400 Body weight 52.16 kg Clifford Nicolas DPM Work Phone: [facility] 04-30-2023 09:58-0400 Respiratory rate 18 /min Clifford Nicolas DPM Work Phone: [facility] 03-24-2023 11:39-0400 Body height 157.[address] Eileen Nair Work Phone: [facility] 03-24-2023 11:39-0400 Body mass index (BMI) [Ratio] 21.9 kg/m2 Dr. Eileen Nair Work Phone: [facility] 03-24-2023 11:39-0400 Body temperature 99.6 [degF] Dr. Eileen Nair Work Phone: [facility] 03-24-2023 11:39-0400 Body weight 54.[address] Eileen Nair Work Phone: [facility] 03-24-2023 11:39-0400 Diastolic blood pressure 93 mm[Hg] Dr. Eileen Nair Work Phone: [facility] 03-24-2023 11:39-0400 Heart rate 89 /min Dr. Eileen Nair Work Phone: [facility] 03-24-2023 11:39-0400 Respiratory rate 16 /min Dr. Eileen Nair Work Phone: [facility] 03-24-2023 11:39-0400 SaO2% (BldA) [Mass fraction] 98 % Dr. Eileen Nair Work Phone: [facility] 03-24-2023 11:39-0400 Systolic blood pressure 137 mm[Hg] Dr. Eileen Nair Work Phone: [facility] 01-15-2023 08:14-0400 Body height 157.5 cm Clifford Nicolas DPM Work Phone: [facility] 01-15-2023 08:14-0400 Body weight 52.16 kg Clifford Nicolas DPM Work Phone: [facility] 01-15-2023 08:14-0400 Respiratory rate 16 /min Clifford Nicolas DPM Work Phone: [facility] 12-04-2022 08:42-0400 Body height 157.5 cm Clifford Nicolas DPM Work Phone: [facility] 12-04-2022 08:42-0400 Body weight 52.16 kg Clifford Nicolas DPM Work Phone: [facility] 12-04-2022 08:42-0400 Respiratory rate 16 /min Clifford Nicolas DPM Work Phone: [facility] 11-28-2022 07:45-0400 Body temperature 97.59 [degF] Nohemy Polk MD Work Phone: [facility] 11-28-2022 07:45-0400 Body weight 52.28 kg Nohemy Polk MD Work Phone: [facility] 11-28-2022 07:45-0400 Heart rate 70 /min Nohemy Polk MD Work Phone: [facility] 11-28-2022 07:45-0400 Respiratory rate 18 /min Nohemy Polk MD Work Phone: [facility] 10-25-2022 10:45-0400 Body temperature 97.3 [degF] Clifford Nicolas DPM Work Phone: [facility] 10-25-2022 10:45-0400 Diastolic blood pressure 75 mm[Hg] Clifford Nicolas DPM Work Phone: [facility] 10-25-2022 10:45-0400 Heart rate 79 /min Clifford Nicolas DPM Work Phone: [facility] 10-25-2022 10:45-0400 Respiratory rate 23 /min Clifford Nicolas DPM Work Phone: [facility] 10-25-2022 10:45-0400 SaO2% (BldA) [Mass fraction] 100 % Clifford Nicolas DPM Work Phone: [facility] 10-25-2022 10:45-0400 Systolic blood pressure 111 mm[Hg] Clifford Nicolas DPM Work Phone: [facility] 10-25-2022 07:12-0400 Body height 157.5 cm Clifford Nicolas DPM Work Phone: [facility] 10-25-2022 07:12-0400 Body weight 54.43 kg Clifford Nicolas DPM Work Phone: [facility] 10-18-2022 09:36-0400 Body height 157.[address] 1 [facility] 10-18-2022 09:36-0400 Body temperature 98.8 [degF] Pst 1 [facility] 10-18-2022 09:36-0400 Body weight 54.43 kg [address] 1 [facility] 10-18-2022 09:36-0400 Diastolic blood pressure 82 mm[Hg] Pst 1 [facility] 10-18-2022 09:36-0400 Heart rate 87 /min Pst 1 [facility] 10-18-2022 09:36-0400 Respiratory rate 18 /min Pst 1 [facility] 10-18-2022 09:36-0400 SaO2% (BldA) [Mass fraction] 100 % Pst 1 [facility] 10-18-2022 09:36-0400 Systolic blood pressure 114 mm[Hg] Pst 1 [facility] 09-04-2022 08:12-0500 Body height 157.5 cm Clifford Nicolas DPM Work Phone: [facility] 09-04-2022 08:12-0500 Body weight 55.34 kg Clifford Nicolas DPM Work Phone: [facility] 09-04-2022 08:12-0500 Respiratory rate 20 /min Clifford Nicolas DPM Work Phone: [facility] 08-09-2022 14:41-0500 Body height 157.5 cm Clifford Nicolas DPM Work Phone: [facility] 08-09-2022 14:41-0500 Body weight 54.43 kg Clifford Nicolas DPM Work Phone: [facility] 08-09-2022 14:41-0500 Respiratory rate 18 /min Clifford Nicolas DPM Work Phone: [facility] 07-18-2022 08:51-0500 Body height 157.5 cm Clifford Nicolas DPM Work Phone: [facility] 07-18-2022 08:51-0500 Body temperature 98.2 [degF] Clifford Nicolas DPM Work Phone: [facility] 07-18-2022 08:51-0500 Body weight 54.43 kg Clifford Nicolas DPM Work Phone: [facility] 06-05-2022 09:20-0500 Body height 157.5 cm Clifford Nicolas DPM Work Phone: [facility] 06-05-2022 09:20-0500 Body weight 53.52 kg Clifford Valenzuela DPM Work Phone: [facility] 06-05-2022 09:20-0500 Respiratory rate 20 /min Clifford Valenzuela DPM Work Phone: [facility] 02-11-2022 10:17-0400 Body temperature 98.01 [degF] Zaripatrick Nobleserich CATALYST UNIT OPERATOR.CORRECTIONAL PROBATION OFFICER Work Phone: [facility] 02-11-2022 10:17-0400 Diastolic blood pressure 81 mm[Hg] Zari Diederich CATALYST UNIT OPERATOR.CORRECTIONAL PROBATION OFFICER Work Phone: [facility] 02-11-2022 10:17-0400 Heart rate 75 /min Zari Diederich CATALYST UNIT OPERATOR.CORRECTIONAL PROBATION OFFICER Work Phone: [facility] 02-11-2022 10:17-0400 Respiratory rate 16 /min Zaripatrick Nobleserich CATALYST UNIT OPERATOR.CORRECTIONAL PROBATION OFFICER Work Phone: [facility] 02-11-2022 10:17-0400 SaO2% (BldA) [Mass fraction] 97 % Zari Diederich CATALYST UNIT OPERATOR.CORRECTIONAL PROBATION OFFICER Work Phone: [facility] 02-11-2022 10:17-0400 Systolic blood pressure 117 mm[Hg] Zari Giulianoerich CATALYST UNIT OPERATOR.CORRECTIONAL PROBATION OFFICER Work Phone: [facility] 11-26-2021 08:45-0400 Body mass index (BMI) [Percentile] Per age and sex 62.13 % Yahaira Arredondo CATALYST UNIT OPERATOR.CORRECTIONAL PROBATION OFFICER Work Phone: [facility] 11-26-2021 08:45-0400 Body temperature 98.6 [degF] Yahaira Lezamak CATALYST UNIT OPERATOR.CORRECTIONAL PROBATION OFFICER Work Phone: [facility] 11-26-2021 08:45-0400 Body weight 54.43 kg Yahaira Arredondo CATALYST UNIT OPERATOR.CORRECTIONAL PROBATION OFFICER Work Phone: [facility] 11-26-2021 08:45-0400 Diastolic blood pressure 62 mm[Hg] Yahaira Arnulfo CATALYST UNIT OPERATOR.CORRECTIONAL PROBATION OFFICER Work Phone: [facility] 11-26-2021 08:45-0400 Heart rate 106 /min Yahaira Arredondo CATALYST UNIT OPERATOR.CORRECTIONAL PROBATION OFFICER Work Phone: [facility] 11-26-2021 08:45-0400 Respiratory rate 16 /min Yahaira Arredondo CATALYST UNIT OPERATOR.CORRECTIONAL PROBATION OFFICER Work Phone: [facility] 11-26-2021 08:45-0400 SaO2% (BldA) [Mass fraction] 99 % Yahaira Arredondo CATALYST UNIT OPERATOR.CORRECTIONAL PROBATION OFFICER Work Phone: [facility] 11-26-2021 08:45-0400 Systolic blood pressure 102 mm[Hg] Yahaira Arredondo CATALYST UNIT OPERATOR.CORRECTIONAL PROBATION OFFICER Work Phone: [facility] 10-09-2021 15:07-0400 Body height 154.9 cm Clifford Nicolas DPM Work Phone: [facility] 10-09-2021 15:07-0400 Body mass index (BMI) [Percentile] Per age and sex 58.61 % Clifford Nicolas DPM Work Phone: [facility] 10-09-2021 15:07-0400 Body weight 53.52 kg Clifford Nicolas DPM Work Phone: [facility] 10-09-2021 15:07-0400 Respiratory rate 17 /min Clifford Nicolas DPM Work Phone: [facility] 10-01-2021 09:29-0400 Body height 157 cm Doris Juarez APRN.CORRECTIONAL PROBATION OFFICER Work Phone: [facility] 10-01-2021 09:29-0400 Body mass index (BMI) [Percentile] Per age and sex 53.08 % Doris Juarez APRN.CORRECTIONAL PROBATION OFFICER Work Phone: [facility] 10-01-2021 09:29-0400 Body temperature 98.2 [degF] Doris Juarez APRN.CORRECTIONAL PROBATION OFFICER Work Phone: [facility] 10-01-2021 09:29-0400 Body weight 53.75 kg Doris Juarez CATALYST UNIT OPERATOR.CORRECTIONAL PROBATION OFFICER Work Phone: [facility] 10-01-2021 09:29-0400 Diastolic blood pressure 76 mm[Hg] Doris Juarez CATALYST UNIT OPERATOR.CORRECTIONAL PROBATION OFFICER Work Phone: [facility] 10-01-2021 09:29-0400 Heart rate 76 /min Doris Juarez CATALYST UNIT OPERATOR.CORRECTIONAL PROBATION OFFICER Work Phone: [facility] 10-01-2021 09:29-0400 Respiratory rate 16 /min Doris Juarez CATALYST UNIT OPERATOR.CORRECTIONAL PROBATION OFFICER Work Phone: [facility] 10-01-2021 09:29-0400 Systolic blood pressure 102 mm[Hg] Doris Juarez CATALYST UNIT OPERATOR.CORRECTIONAL PROBATION OFFICER Work Phone: [facility] NEGATED: Highlighted [id number] 13:39-0400 BMI (Body Mass Index) 23.86 kg/m2 [facility] Work Phone: NEGATED: Highlighted [id number] 13:39-0400 Body weight 58.97 kg [facility] Work Phone: NEGATED: Highlighted [id number] 13:39-0400 Body weight 59 kg [facility] Work Phone: NEGATED: Highlighted [id number] 13:39-0400 BP Diastolic 80 mm[Hg] [facility] Work Phone: NEGATED: Highlighted [id number] 13:39-0400 BP Systolic 118 mm[Hg] [facility] Work Phone: NEGATED: Highlighted [id number] 13:39-0400 Heart rate 2+ [facility] Work Phone: NEGATED: Highlighted [id number] 13:39-0400 Height 157.48 cm [facility] Work Phone: NEGATED: Highlighted [id number] 13:39-04[address] [facility] [place] [facility] Work Phone: NEGATED: Highlighted [id number] 13:39-0400 Pulse (Heart Rate) 80 /min [facility] Work Phone: Encounters Encounter Date Encounter Type Care Provider Facility Start: 05-04-2025 End: 05-04-2025 ambulatory [facility] Facility:[facility] Start: 04-27-2025 End: 04-27-2025 ambulatory [facility] Facility:[facility] Start: 04-22-2025 End: 04-22-2025 ambulatory ANDERSON BARKER Facility:[facility] Start: 04-20-2025 End: 04-20-2025 ambulatory [facility] Facility:[facility] Start: 04-13-2025 End: 04-13-2025 ambulatory [facility] Facility:[facility] Start: 04-08-2025 End: 04-08-2025 ambulatory [facility] Facility:[facility] Start: 04-06-2025 End: 04-06-2025 ambulatory [facility] Facility:[facility] Start: 03-30-2025 End: 03-30-2025 ambulatory Carly Callejas MD Work Phone: -Cmd [facility] Start: 03-30-2025 End: 03-30-[address] Bertha Snyder DO -Lab [facility] Start: 03-30-2025 End: 03-30-2025 ambulatory Carly Callejas Facility:[facility] Start: 03-23-2025 ambulatory ANDERSON BARKER Facility:[facility] Start: 03-21-2025 End: 03-22-2025 Admission to same day surgery center Anderson Barker DO Work Phone: General Surgery Comment on above: GI Cocktail Start: 03-21-2025 End: 03-22-2025 ambulatory Jayla Gauthier CANCELLATION CLERK Work Phone: [facility] Physical Therapy Comment on above: Pain in joint, multiple sites (Primary D x); Hypermobility arthralgia Start: 03-15-2025 End: 03-15-[address] [facility] 1 Work Phone: Pre Anesthesia Start: 03-15-2025 End: 03-15-2025 Anesthesia consultation [place] [address] Work Phone: Pre Anesthesia Comment on above: Gastroesophageal reflux disease, unspeci fied whether esophagitis present (Primary Dx); PONV (postoperative nausea and vomiting); Intractable nausea and vomiting; Gastroparesis; Chronic idiopathic constipation; Chronic superficial gastritis without bleeding; Chronic abdominal pain; Hereditary angioedema (HCC); Tarsal coalition; Hypermobility arthralgia; Delayed emergence from anesthesia, subsequent encounter; KHRIS positive; POTS (postural orthostatic tachycardia syndrome); 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); 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); History of epilepsy; Liver hemangioma; Elevated blood pressure reading without diagnosis of hypertension Start: 03-15-2025 End: 03-15-2025 ambulatory ANDERSON BARKER Facility:[facility] Start: 03-11-2025 End: 03-11-2025 Refill Yung Celeste MD Work Phone: [facility] Comment on above: Refill Request Start: 03-09-2025 End: 03-09-2025 ambulatory STEFFANY GUILLEN Facility:[facility] Start: 03-09-2025 End: 03-10-2025 ambulatory KERI HOUGH Facility:[facility] Start: 03-09-2025 End: 03-10-2025 Patient encounter procedure Keri Hough PA-C Work Phone: Gastroenterology Comment on above: Autoimmune gastritis (Primary Dx); Elevated LFTs; Hepatic hemangioma H. pylori infection (Primary Dx); Autoimmune gastritis; Slow transit constipation; Gastroparesis Start: 03-09-2025 End: 03-10-2025 ambulatory BERNIE MARTINES Facility:[facility] Start: 03-04-2025 End: 03-04-2025 Telephone encounter Anderson Barker DO Work Phone: General Surgery Comment on above: Care Coordination (Schedule procedure an d follow up appt////) Start: 03-02-2025 End: 03-02-2025 ambulatory Moody Lisa PT [facility] Physical Therapy Comment on above: Pain in joint, multiple sites (Primary D x); Hypermobility arthralgia Start: 03-01-2025 End: 03-01-2025 Admission to same day surgery center Anderson Whitesideceliaefra Work Phone: General Surgery Comment on above: Gastroparesis (Primary Dx); Gastroesophageal reflux disease, unspecified whether esophagitis present; Chronic idiopathic constipation Start: 03-01-2025 End: 03-01-2025 Telemedicine consultation with patient Anderson Barker Work Phone: General Surgery Start: 03-01-2025 End: 03-01-2025 ambulatory ANDERSON BARKER Facility:[facility] Start: 02-28-2025 End: 02-28-2025 ambulatory Carly Callejas MD Work Phone: -Laboratory Specimen Start: 02-28-2025 End: 02-28-2025 Patient encounter procedure Sobia Sarah CN -Laboratory Specimen Work Phone: Start: 02-28-2025 End: 02-28-2025 Patient encounter procedure Sobia Sarah CN -[facility] Work Phone: Start: 02-28-2025 End: 02-28-2025 ambulatory Carly Callejas MD Work Phone: -[facility] Start: 02-28-2025 End: 02-28-2025 ambulatory Sobia Sarah Facility:[facility] Start: 02-22-2025 End: 02-22-2025 ambulatory Carly Callejas MD Work Phone: -[facility] Start: 02-22-2025 End: 02-22-[address] Carly Callejas MD -Lab [facility] Start: 02-22-2025 End: 02-22-2025 ambulatory Carly Callejas Facility:[facility] Start: 02-16-2025 End: 02-16-2025 ambulatory Moody Lisa PT [facility] Physical [facility] Comment on above: Pain in joint, multiple sites (Primary D x); Hypermobility arthralgia Start: 02-09-2025 End: 02-09-2025 ambulatory MOODY LISA Facility:[facility] Start: 02-02-2025 ambulatory ANDERSON BARKER Facility:[facility] Start: 02-02-2025 End: 02-02-2025 Subsequent hospital visit by physician Anderson Barker DO Work Phone: [facility] Comment on above: Gastroparesis [K31.84] Start: 01-26-2025 End: 01-26-2025 ambulatory Moody Lisa PT [facility] Physical Therapy Comment on above: Hypermobility arthralgia (Primary Dx); Pain in joint, multiple sites Start: 01-26-2025 End: 01-26-2025 [facility] Work Phone: Pre An[facility] Start: 01-26-2025 End: 01-26-2025 Anesthesia consultation [place] [address] Work Phone: Pre Anesthesia Comment on above: Pre-operative examination (Primary Dx); Nonintractable epilepsy without status epilepticus, unspecified epilepsy type (HCC); 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 1 Work Phone: [facility] Start: 01-26-2025 End: 01-26-2025 ambulatory MOODY SHEILA Facility:[facility] Start: 01-24-2025 End: 01-25-2025 ambulatory Yung Celeste MD Work Phone: [facility] Start: 01-24-2025 End: 01-25-2025 Follow-up encounter Yung Celeste MD Work Phone: [facility] [place] Comment on above: Appt Followup message Start: 01-20-2025 End: 01-20-2025 ambulatory Clifford Rodriguezman DPM Work Phone: [facility] Comment on above: Orthotics Start: 01-20-2025 End: 01-20-[address] Bertha Snyder DO -Lab [facility] Start: 01-19-2025 End: 01-19-2025 Telephone encounter Emilie Rojas APRN.CNP Work Phone: Pre Anesthesia Start: 01-19-2025 End: 01-19-2025 Office outpatient visit 40 minutes Yung Celeste MD Work Phone: [facility] [place] Comment on above: Fever, unspecified fever cause (Primary Dx); Rash and nonspecific skin eruption; Pain in joint, multiple sites; Periodic fever syndrome (HCC); Periodic fever, aphthous stomatitis, pharyngitis, adenitis (PFAPA) syndrome (HCC); Hypermobility arthralgia; CRP elevated Start: 01-19-2025 End: 01-20-2025 ambulatory Bertah Snyder Facility:[facility] Start: 01-12-2025 End: 01-13-2025 Telephone encounter Anderson Barker DO Work Phone: General Surgery Comment on above: Care Coordination (Schedule procedure an d follow up appt////) Start: 01-12-2025 End: 01-12-2025 ambulatory STEFFANY GUILLEN Facility:[facility] Start: 01-11-2025 End: 01-11-2025 Admission to same day surgery center Anderson Barker DO Work Phone: General Surgery Comment on above: Gastroparesis (Primary Dx); Chronic idiopathic constipation Start: 01-11-2025 End: 01-11-2025 Telemedicine consultation with patient Anderson Barker DO Work Phone: General Surgery Start: 01-11-2025 End: 01-11-2025 ambulatory ANDERSON BARKER Facility:[facility] Start: 01-11-2025 End: 01-11-2025 Telephone encounter Ramesh Bertrand MD Work Phone: Rheumatology Start: 01-10-2025 End: 01-10-2025 ambulatory MICHAELSonny ALEGRIALA Facility:[facility] Start: 12-29-2024 End: 12-29-2024 ambulatory Carly Callejas MD Work Phone: -Laboratory Specimen Start: 12-29-2024 End: 12-29-[address] Bertha Snyder DO -Laboratory Specimen Work Phone: Start: 12-29-2024 End: 12-29-2024 ambulatory Bertha Snyder Facility:[facility] Start: 12-28-2024 End: 03-10-2025 Telephone encounter Dustin Tamayo DO Work Phone: Gastroenterology Comment on above: Appointment Start: 12-22-2024 End: 12-22-[address] Bertha Snyder DO -Medical Out Work Phone: Start: 12-22-2024 End: 12-22-2024 ambulatory Carly Callejas MD Work Phone: [facility] Work Phone: Start: 12-21-2024 End: 12-21-2024 Telemedicine consultation with patient Zari Narayanan Alley BALDWIN.CORRECTIONAL PROBATION OFFICER Work Phone: Neurology Start: 12-21-2024 End: 12-21-2024 ambulatory Zari Narayanan Alley CATALYST UNIT OPERATOR.CORRECTIONAL PROBATION OFFICER Work Phone: Neurology Comment on above: Postural orthostatic tachycardia syndrom e (POTS); Hereditary angioedema (HCC) Start: 12-20-2024 End: 12-20-2024 Refill Bernie Martines MD Work Phone: Gastroenterology Comment on above: Refill Request Start: 12-15-2024 End: 12-16-2024 ambulatory Steffany Guillen MD Work Phone: Allergy Comment on above: Test Results Start: 12-15-2024 End: 12-15-2024 Telephone encounter Steffany Guillen MD Work Phone: Allergy Comment on above: Outside Lab Results Medication Problem Start: 12-14-2024 End: 12-14-[address] Bertha BLANCMedical Out Work Phone: Start: 12-14-2024 End: 12-15-2024 ambulatory Carly Callejas MD Work Phone: [facility] Work Phone: Comment on above: Symptoms and Medication Start: 12-08-2024 End: 12-08-[address] Bertha BLANCMedical Out Work Phone: Start: 12-08-2024 End: 12-08-2024 ambulatory Carly Callejas MD Work Phone: [facility] Work Phone: Start: 12-07-2024 End: 12-07-2024 Patient encounter procedure Carmelina FRIEDMAN -[facility] Work Phone: Start: 12-07-2024 End: 12-07-2024 ambulatory Carly Callejas MD Work Phone: [facility] Work Phone: Start: 12-07-2024 End: 12-07-2024 Nursing evaluation of patient and report Nurse [facility] Work Phone: Allergy Comment on above: Low serum complement C4 (Primary Dx) Start: 12-07-2024 End: 12-07-2024 ambulatory CARLY CALLEJAS Facility:[facility] Start: 12-06-2024 End: 12-06-2024 ambulatory Carly Callejas MD Work Phone: [facility] Work Phone: Start: 12-06-2024 End: 12-06-2024 Patient encounter procedure Carly Callejas MD Work Phone: -Laboratory Work Phone: Start: 12-06-2024 End: 12-06-2024 ambulatory MILLY PAN Facility:[facility] Start: 12-02-2024 End: 12-03-2024 Telephone encounter Yung Celeste MD Work Phone: Rheumatology Comment on above: Medication Problem Start: 12-01-2024 End: 12-01-2024 Telemedicine consultation with patient Steffany Guillen MD Work Phone: Allergy Start: 12-01-2024 End: 12-01-2024 ambulatory Steffany Guillen MD Work Phone: Allergy Comment on above: Hereditary angioedema type 2 (HCC) (Prim rafael Dx); Low serum complement C4; Recurrent infections; Angioedema, sequela; Gastroparesis; Muscle weakness; Arthralgia of multiple sites Start: 11-26-2024 End: 11-26-2024 ambulatory Carly Callejas MD Work Phone: [facility] Work Phone: Start: 11-26-2024 End: 11-26-2024 Patient encounter procedure Sobia Sarah [facility] -Lab [facility] Start: 11-26-2024 End: 11-26-2024 ambulatory Sobia Sarah Facility:[facility] Start: 11-24-2024 End: 11-24-2024 ambulatory YUNG CELESTE Facility:[facility] Start: 11-16-2024 End: 11-16-2024 Telephone encounter Steffany Guillen MD Work Phone: Allergy Start: 11-16-2024 End: 11-16-2024 ambulatory Carly Callejas MD Work Phone: [facility] Work Phone: Start: 11-16-2024 End: 11-16-[address] Carly Callejas MD -Lab [facility] Start: 11-15-2024 End: 11-16-2024 ambulatory Steffany Guillen MD Work Phone: Allergy Comment on above: ER Visit Start: 11-13-2024 End: 11-13-2024 Emergency department patient visit Carly Callejas MD Work Phone: -Emergency Department Work Phone: Start: 11-04-2024 End: 11-04-2024 ambulatory [facility] Facility:[facility] Start: 11-03-2024 End: 11-03-2024 Telephone encounter Steffany Guillen MD Work Phone: Allergy Comment on above: Medication Question (Orledyo-appeal ques tions--see 10/22/24) Patient Question Medication Problem Start: 11-02-2024 End: 11-02-2024 Telephone encounter Steffany Guillen MD Work Phone: Allergy Comment on above: Insurance Authorization Start: 11-01-2024 End: 11-01-2024 Office outpatient new 60 minutes Yung Celeste MD Work Phone: [facility] Comment on above: Fever, unspecified fever cause (Primary Dx); Rash and nonspecific skin eruption; Pain in joint, multiple sites; Angioedema, sequela; POTS (postural orthostatic tachycardia syndrome); Gastroparesis; Chronic fatigue syndrome; Anti-TPO antibodies present; Fever in other diseases; Malaise and fatigue; Aphthous stomatitis Start: 11-01-2024 End: 11-01-2024 ambulatory [facility] Facility:[facility] Start: 10-22-2024 End: 10-22-2024 Telephone encounter Steffany Guillen MD Work Phone: Allergy Start: 10-18-2024 End: 12-06-2024 Telephone encounter Steffany Guillen MD Work Phone: Allergy Comment on above: Insurance Authorization (Firazyr (HAE pr n acute attacks)) Start: 10-15-2024 End: 10-15-2024 Telephone encounter Steffany Guillen MD Work Phone: Allergy Start: 10-13-2024 End: 10-13-2024 ambulatory STEFFANY GUILLEN Facility:[facility] Start: 10-13-2024 End: 10-13-2024 ambulatory Steffany Guillen MD Work Phone: Allergy Comment on above: Recurrent infections (Primary Dx); Hereditary angioedema type 2 (HCC); Angioedema, sequela; Low serum complement C4; Gastroparesis; Oral ulcer Start: 10-13-2024 End: 10-13-2024 Telemedicine consultation with patient Steffany Guillen MD Work Phone: Allergy Start: 10-01-2024 End: 10-01-2024 Refill Zoran Julio APRN.CNP Work Phone: Neurology Comment on above: Refill Request Start: 09-29-2024 End: 09-29-2024 ambulatory Steffany Guillen MD Work Phone: Allergy Comment on above: Flare up Start: 09-22-2024 End: 11-22-2024 Orders Only Steffany Guillen MD Work Phone: Allergy Comment on above: Angioedema, sequela (Primary Dx) Start: 09-21-2024 End: 09-21-2024 ambulatory Genesis Gavin PA-C Work Phone: Gastroenterology Comment on above: Generalized abdominal pain (Primary Dx); Gastroparesis; Chronic idiopathic constipation Start: 09-21-2024 End: 09-21-2024 Telemedicine consultation with patient Genesis MartínezLeslye PA-Eliecer Work Phone: Gastroenterology Start: 09-19-2024 End: 09-19-2024 ambulatory Agustín Manrique NP Facility:[facility] Start: 09-19-2024 End: 09-19-2024 [facility] Work Phone: Start: 09-15-2024 End: 09-15-2024 Patient encounter procedure Bernie Martines MD Work Phone: Gastroenterology Comment on above: Elevated LFTs (Primary Dx); Gastroparesis; Slow transit constipation; Positive serological test result Start: 09-15-2024 End: 09-15-2024 ambulatory [facility] Facility:[facility] Start: 09-10-2024 End: 09-10-2024 ambulatory Carly Callejas MD Work Phone: [facility] Work Phone: Start: 09-10-2024 End: 09-10-[address] Carly Callejas MD -Lab, [facility] Start: 09-10-2024 End: 09-10-2024 ambulatory Carly Callejas Facility:[facility] Start: 09-01-2024 End: 09-01-2024 Evaluation and management of inpatient EVELINE SCOTT Facility:[facility] Start: 08-31-2024 End: 09-01-2024 Telephone encounter [facility] Provider Gastroenterology Comment on above: Appointment Start: 08-27-2024 End: 08-27-2024 Refill Dustin Tamayo DO Work Phone: Gastroenterology Comment on above: Refill Request Start: 08-27-2024 End: 09-02-2024 [facility] Start: 08-26-2024 End: 08-26-[address] Natalee Murillo [place] -[facility] Work Phone: Start: 08-26-2024 End: 08-26-2024 ambulatory Natalee Murillo Facility:[facility] Start: 08-25-2024 End: 08-25-2024 ambulatory Steffany Guillen MD Work Phone: Allergy Comment on above: Angioedema, sequela (Primary Dx); Low serum complement C4; Oral ulcer; Gastroparesis Start: 08-25-2024 End: 08-25-2024 Telemedicine consultation with patient Steffany Guillen MD Work Phone: Allergy Start: 08-20-2024 End: 08-20-2024 Telemedicine consultation with patient Alan Cortés MD Work Phone: [facility] Start: 08-20-2024 End: 08-20-2024 ambulatory Alan Cortés MD Work Phone: [facility] Comment on above: Low serum complement C4 (Primary Dx); Angioedema, sequela; POTS (postural orthostatic tachycardia syndrome); Gastroparesis; Anti-TPO antibodies present Start: 08-13-2024 Encounter for gynecological examination (general) (routine) without abnormal findings Jovana Calvert [facility] Start: 08-13-2024 End: 08-13-[address] Jovana Calvert MD -[facility] Work Phone: Start: 08-13-2024 End: 08-13-[address] Jovana Calvert MD [facility] Start: 08-13-2024 End: 08-13-2024 ambulatory Carly Callejas Facility:[facility] Start: 08-13-2024 End: 08-13-2024 ambulatory Carly Britta Facility:[facility] Start: 08-04-2024 End: 08-04-[address] Carly Callejas MD -Lab, [facility] Start: 08-04-2024 End: 08-04-2024 ambulatory Carly Callejas Facility:[facility] Start: 08-02-2024 End: 08-02-2024 Telephone encounter Bernie Martines MD Work Phone: Gastroenterology Comment on above: Outside Lab Results Start: 07-31-2024 End: 07-31-2024 ambulatory BERNIE MARTINES Facility:[facility] Start: 07-29-2024 End: 07-29-2024 Patient encounter procedure Carly Callejas MD Work Phone: -Laboratory Work Phone: Start: 07-29-2024 End: 07-29-2024 ambulatory Carly Callejas Facility:[facility] Start: 07-27-2024 End: 07-27-[address] Carly Callejas MD -Laboratory Work Phone: Start: 07-27-2024 End: 07-27-2024 ambulatory Carly Callejas Facility:[facility] Start: 07-21-2024 End: 07-21-2024 ambulatory ALAN CORTÉS Facility:[facility] Start: 07-20-2024 End: 07-28-2024 Telephone encounter Alan Cortés MD Work Phone: [facility] Start: 07-19-2024 ambulatory CARISSA ESPANA Facility:[facility] Start: 07-19-2024 End: 07-19-2024 Subsequent hospital visit by physician Carissa Espana MD Work Phone: [facility] Comment on above: Aphthous ulcer of mouth [K12.0] Start: 07-15-2024 End: 07-28-2024 Telephone encounter Alan Cortés MD Work Phone: [facility] Start: 07-15-2024 End: 07-15-[address] Natalee Murillo [place] -[facility] Work Phone: Start: 07-15-2024 End: 07-15-2024 ambulatory Natalee Murillo Facility:[facility] Start: 07-15-2024 End: 07-15-[address] Natalee uMrillo [place] -Radiology, [facility] Work Phone: Start: 07-15-2024 End: 07-15-2024 ambulatory Natalee Murillo Facility:[facility] Start: 07-13-2024 End: 07-13-2024 ambulatory ALAN CORTÉS Facility:[facility] Start: 07-13-2024 End: 07-13-2024 Patient encounter procedure Alan Cortés MD Work Phone: [facility] Comment on above: Fever in other diseases (Primary Dx); Gastroparesis; POTS (postural orthostatic tachycardia syndrome); Chronic fatigue syndrome Start: 07-13-2024 End: 07-13-2024 ambulatory ALAN CORTÉS Facility:[facility] Start: 07-01-2024 End: 07-01-[address] Carly Callejas MD -Laboratory, [facility] Start: 07-01-2024 End: 07-01-2024 ambulatory Chaljoel Callejas Facility:[facility] Start: 06-29-2024 End: 06-29-2024 Emergency department patient visit CARLY CALLEJAS Facility:[facility] Start: 06-28-2024 End: 06-29-2024 ambulatory Bernie Martines MD Work Phone: Gastroenterology Comment on above: Stones in Stool Start: 06-23-2024 ambulatory Natalee Murillo Facility:[facility] Start: 06-23-2024 Non-patient / Non-visit Dr. Natalee Murillo DC -[facility] Work Phone: Start: 06-22-2024 End: 06-22-[address] Natalee Murillo DC -[facility] Work Phone: Start: 06-22-2024 End: 06-22-2024 ambulatory Natalee Murillo Facility:[facility] Start: 06-15-2024 End: 06-15-[address] Mu Burroughs MD -[facility] Start: 06-15-2024 End: 06-15-2024 ambulatory Carly Callejas Facility:[facility] Start: 06-14-2024 End: 06-14-[address] Natalee Murillo DC -[facility] Work Phone: Start: 06-14-2024 End: 06-14-2024 ambulatory Carly Callejas Facility:[facility] Start: 05-28-2024 End: 05-28-2024 Telephone encounter Bernie Martines MD Work Phone: Gastroenterology Comment on above: Outside Lab Results Start: 05-27-2024 End: 05-27-2024 Patient encounter procedure Carly Callejas MD Work Phone: -Laboratory Work Phone: Start: 05-26-2024 End: 05-26-2024 Telephone encounter Bernie Martines MD Work Phone: Gastroenterology Comment on above: Medication Problem Start: 05-26-2024 End: 05-26-2024 Patient encounter procedure Bernie Martines MD Work Phone: Gastroenterology Comment on above: Leg cramps (Primary Dx); Elevated gastrin level; Constipation, unspecified constipation type; Gastroparesis Start: 05-26-2024 End: 05-27-2024 ambulatory MILLY PAN Facility:[facility] Start: 05-24-2024 End: 05-24-2024 ambulatory Carly Callejas Facility:[facility] Start: 04-13-2024 End: 04-13-2024 Orders Only Dustin Colette Tamayo Work Phone: Gastroenterology Comment on above: Crohn's disease of colon without complic ation (HCC) (Primary Dx) Malignant carcinoid tumor, unspecified site (HCC) [C7A.00] Start: 04-12-2024 End: 04-12-2024 Telephone encounter Dustin Alvarenga Roni SEWELL Work Phone: [facility] Comment on above: Patient Question Start: 04-09-2024 ambulatory DUSTIN TAMAYO Facility:[facility] Start: 04-09-2024 End: 04-09-2024 Subsequent hospital visit by physician Dustin Tamayo DO Work Phone: [facility] Comment on above: Gastroparesis [K31.84] Start: 04-08-2024 End: 04-08-2024 ambulatory Dustin Tamayo Work Phone: Gastroenterology Comment on above: Gastroparesis (Primary Dx); Intractable nausea and vomiting Start: 04-08-2024 End: 04-08-2024 Telemedicine consultation with patient Dustin Tamayo Work Phone: Gastroenterology Start: 04-06-2024 End: 04-06-2024 ambulatory Dustin Colette Tamayo Work Phone: [facility] Start: 04-05-2024 End: 04-05-2024 ambulatory Nurys Tovar MD Work Phone: Gynecology Comment on above: Post-operative state (Primary Dx); H/O bilateral salpingectomy Start: 04-05-2024 End: 04-05-2024 Telemedicine consultation with patient Nurys Tovar MD Work Phone: Gynecology Start: 03-24-2024 End: 03-24-2024 Telephone encounter Dustin Tamayo DO Work Phone: [facility] Comment on above: Patient Question (EGD Instructions) Results Start: 03-24-2024 End: 03-24-2024 Admission to establishment [facility] Pre Anesthesia Start: 03-24-2024 End: 03-24-2024 Anesthesia [address] [facility] Pre Anesthesia Comment on above: Pre-op evaluation (Primary Dx); Nonintractable epilepsy without status epilepticus, unspecified epilepsy type (HCC); POTS (postural orthostatic tachycardia syndrome); Primary narcolepsy without cataplexy; Mild intermittent asthma without complication; Gastroparesis; Gastroesophageal reflux disease, unspecified whether esophagitis present; Chronic superficial gastritis without bleeding; PONV (postoperative nausea and vomiting); Delayed emergence from anesthesia, subsequent encounter Start: 03-24-2024 End: 03-24-2024 Preprocedural examination done [facility] Work Phone: Start: 03-22-2024 End: 03-30-2024 Orders Only Bernie Martines MD Work Phone: Gastroenterology Comment on above: Malignant carcinoid tumor, unspecified s ite (HCC) (Primary Dx) S/P laparoscopy (Ana luz Dx) Nm Pet Request Start: 03-17-2024 End: 03-17-2024 Patient encounter procedure May Frias APRN.CORRECTIONAL PROBATION OFFICER Work Phone: Gynecology Comment on above: Post-operative state (Primary Dx) Start: 03-16-2024 End: 03-16-2024 Telephone encounter Abi Teixeira DO Work Phone: [facility] Comment on above: Post op complications Start: 03-12-2024 End: 07-09-2024 Telephone encounter Abi Teixeira DO Work Phone: Gynecology Comment on above: Post Op Follow Up Start: 03-12-2024 End: 03-12-2024 ambulatory Zoran Julio APRN.CORRECTIONAL PROBATION OFFICER Work Phone: Neurology Comment on above: POTS (postural orthostatic tachycardia s yndrome) (Primary Dx); Gastroparesis Start: 03-12-2024 End: 03-12-2024 Telemedicine consultation with patient Zoran Julio APRN.CORRECTIONAL PROBATION OFFICER Work Phone: Neurology Start: 03-11-2024 End: 03-15-2024 Telephone encounter Abi Teixeira DO Work Phone: [facility] Comment on above: FMLA Paperwork Start: 03-04-2024 End: 03-22-2024 Patient encounter procedure Dustin Tamayo DO Work Phone: Gastroenterology Start: 03-04-2024 End: 03-04-2024 Admission to establishment [facility] Work Phone: Pre Anesthesia Start: 03-04-2024 End: 03-04-2024 Anesthesia consultation [place] [id number] Work Phone: Pre Anesthesia Comment on above: Pre-op evaluation (Primary Dx); Delayed emergence from anesthesia, subsequent encounter; PONV (postoperative nausea and vomiting); Nonintractable epilepsy without status epilepticus, unspecified epilepsy type (HCC); Narcolepsy without cataplexy; Elevated blood pressure reading without diagnosis of hypertension; Liver hemangioma; POTS (postural orthostatic tachycardia syndrome); Mild intermittent asthma without complication; Gastroesophageal reflux disease, unspecified whether esophagitis present; Gastroparesis Start: 03-04-2024 End: 03-04-2024 Preprocedural examination done [place] [id number] Work Phone: [facility] Work Phone: Start: 03-04-2024 End: 03-22-2024 ambulatory Nurse Top Spotter Work Phone: Gynecology Comment on above: Educational circumstances (Primary Dx) EGG RESULTS Start: 03-04-2024 End: 03-04-2024 Telemedicine consultation with patient Nurse Top Spotter Work Phone: Gynecology Start: 03-03-2024 End: 03-03-2024 Telephone encounter Bernie Martines MD Work Phone: Gastroenterology Comment on above: Medication Problem Start: 03-02-2024 End: 03-03-2024 Office outpatient new 60 minutes Lisy Rodriguez MD Work Phone: [facility] Comment on above: Chronic cholecystitis (Primary Dx); Gastroparesis; Autoimmune gastritis Start: 03-02-2024 End: 04-12-2024 Orders Only Adela Armas APRN.CORRECTIONAL PROBATION OFFICER Work Phone: Gynecology Comment on above: Preoperative examination (Primary Dx) Appointment ([facility]: 4 week f/u) Start: 03-02-2024 End: 03-02-2024 Preprocedural examination done Adela Armas APRN.CORRECTIONAL PROBATION OFFICER Work Phone: [facility] Work Phone: Start: 03-01-2024 End: 03-03-2024 ambulatory Dustin Tamayo DO Work Phone: Gastroenterology Comment on above: Medications Start: 03-01-2024 End: 03-01-2024 Telephone encounter Dustin Colette Roni SEWELL Work Phone: Gastroenterology Comment on above: Medication Preauthorization ([place] for Ibsr melinda) Start: 03-01-2024 End: 03-01-2024 Patient encounter procedure [facility] Work Phone: Gastroenterology Comment on above: Gastroparesis (Primary Dx) Gastroparesis (Prima ry Dx); Irritable bowel syndrome with constipation; IBD (inflammatory bowel disease) Start: 02-27-2024 End: 02-27-2024 ambulatory Abi Teixeira DO Work Phone: Obstetrics/Gynecology Comment on above: Unwanted fertility (Primary Dx) Start: 02-27-2024 End: 02-27-2024 Telemedicine consultation with patient Abi Teixeira Work Phone: Obstetrics/Gynecology Start: 02-21-2024 End: 02-25-2024 ambulatory Bernie Martines MD Work Phone: Gastroenterology Comment on above: Mouth ulcers Start: 02-19-2024 Orders Only Mary Desai MD Work Phone: [facility] Comment on above: H. pylori infection (Primary Dx) Start: 02-16-2024 End: 02-16-[address] Work Phone: Gastroenterology Start: 02-16-2024 End: 02-16-2024 Nutrition therapy Padmini Chayo ADLER Work Phone: Gastroenterology Comment on above: Nutrition Assessment Start: 02-15-2024 Refill Bernie Martines MD Work Phone: Gastroenterology Comment on above: Refill Request Start: 02-12-2024 Telephone encounter Dustin Alvarenga Roni SEWELL Work Phone: Gastroenterology Comment on above: Appointment Start: 02-11-2024 End: 02-11-2024 Patient encounter procedure Bernie Martines MD Work Phone: Gastroenterology Comment on above: H. pylori infection (Primary Dx); RUQ abdominal pain; Gastroparesis; Aphthous ulcer of mouth; Gastritis without bleeding, unspecified chronicity, unspecified gastritis type; Elevated gastrin level Start: 02-05-2024 Telephone encounter Zoran Julio APRN.CORRECTIONAL PROBATION OFFICER Work Phone: Neurology Comment on above: Patient Update Start: 01-27-2024 Telephone encounter Bernie Martines MD Work Phone: Gastroenterology Comment on above: Patient Update (Multiple symptoms) Start: 01-08-2024 ambulatory May Frias APRN.CORRECTIONAL PROBATION OFFICER Work Phone: Gynecology Start: 01-08-2024 Follow-up encounter May Frias APRN.CORRECTIONAL PROBATION OFFICER Work Phone: Gynecology Comment on above: Visit follow up Start: 01-05-2024 End: 01-05-2024 Patient encounter procedure May Frias APRN.CORRECTIONAL PROBATION OFFICER Work Phone: Gynecology Comment on above: Sterilization consult (Primary Dx) Start: 01-05-2024 End: 01-05-2024 Telemedicine consultation with patient May Altagracia RIGSGCORRECTIONAL PROBATION OFFICER Work Phone: Gynecology Start: 12-19-2023 Telephone encounter [facility] Provider [facility] Comment on above: Appointment Start: 12-15-2023 Telephone encounter Ramesh Bertrand MD Work Phone: Rheumatology Comment on above: Appointment Start: 12-11-2023 End: 12-11-2023 Patient encounter procedure Lizbet Rider MD Work Phone: OB/Gynecology Comment on above: Request for sterilization (Primary Dx) Start: 12-09-2023 End: 12-09-2023 Patient encounter procedure Lizbeth Constantino MD Work Phone: [facility]aternal [facility] Comment on above: Encounter for preconception consultation (Primary Dx); Gastroparesis; Nonintractable epilepsy without status epilepticus, unspecified epilepsy type (HCC); POTS (postural orthostatic tachycardia syndrome); Chronic fatigue syndrome; History of foot fracture; Primary narcolepsy without cataplexy; Mild intermittent asthma without complication; Elevated blood pressure reading without diagnosis of hypertension; Drug-induced constipation; Chronic superficial gastritis without bleeding; Liver hemangioma Start: 12-08-2023 End: 12-08-[address] Work Phone: Gastroenterology Comment on above: Autoimmune gastritis (Primary Dx) Start: 12-08-2023 End: 12-08-2023 Telemedicine consultation with patient Padmini Domingo RD Work Phone: Gastroenterology Start: 12-05-2023 Telephone encounter Bertha Velasquez MD Work Phone: OB/Gynecology Comment on above: Patient Update Start: 12-03-2023 Telephone encounter Lizbet Rider MD Work Phone: OB/Gynecology Comment on above: Appointment Start: 11-19-2023 Orders Only Bernie Martines MD Work Phone: Gastroenterology Start: 11-18-2023 End: 11-18-2023 Subsequent hospital visit by physician [facility] Brandy Galeana Work Phone: Radiology Comment on above: Epigastric pain [R10.13] Start: 11-17-2023 Telephone encounter Historical [facility] Start: 11-14-2023 Telephone encounter Bernie Martines MD Work Phone: Gastroenterology Comment on above: RTW Letter Start: 11-14-2023 End: 11-14-2023 Patient encounter procedure Lizbet Rider MD Work Phone: OB/Gynecology Comment on above: Encounter for gynecological examination (general) (routine) without abnormal findings (Primary Dx); Gastroparesis; Nonintractable epilepsy without status epilepticus, unspecified epilepsy type (HCC) Start: 11-14-2023 End: 11-14-2023 Patient encounter status Lizbet Rider MD Work Phone: [facility] Start: 11-12-2023 End: 11-12-2023 Patient encounter procedure Bernie Martines MD Work Phone: Gastroenterology Comment on above: Epigastric pain (Primary Dx); Bilious vomiting with nausea; Autoimmune gastritis; Belching; Hypokalemia Start: 11-06-2023 End: 11-06-2023 ambulatory MD Carly Callejas Work Phone: [facility] Work Phone: Start: 11-06-2023 End: 11-06-2023 Patient encounter procedure MD [facility] Start: 10-14-2023 End: 10-14-2023 Patient encounter procedure Praneeth Jaffe MD Work Phone: Gastroenterology Comment on above: Elevated transaminase level; Liver lesion; Constipation, unspecified constipation type Start: 10-03-2023 End: 02-23-2024 Telephone encounter No 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 Comment on above: Follow Up Phone Call (All clear) Start: 09-30-2023 End: 09-30-2023 ambulatory MD Carly Callejas Work Phone: [facility] Work Phone: Start: 09-30-2023 End: 09-30-2023 Patient encounter procedure MD [facility]jas [facility] Start: 09-29-2023 End: 09-29-[address] Work Phone: Gastroenterology Comment on above: Autoimmune gastritis (Primary Dx) Start: 09-29-2023 End: 09-29-2023 Telemedicine consultation with patient Padmini Minayaloretta ADLER Work Phone: [facility] Start: 09-25-2023 Telephone encounter Bernie Martines MD Work Phone: Gastroenterology Comment on above: Appointment (Autoimmune gastritis/hospit al discharge) Start: 09-16-2023 End: 09-16-2023 Patient encounter procedure MD Carly Callejas Work Phone: [facility] Gastroenterology Work Phone: Start: 09-15-2023 End: 09-15-2023 ambulatory MD Carly Callejas Work Phone: [facility] Work Phone: Start: 09-15-2023 End: 09-15-2023 Patient encounter procedure [facility]-Cat Scan, [facility] Work Phone: Start: 09-12-2023 End: 09-12-2023 Emergency department patient visit [facility]-Emergency Department Work Phone: Start: 09-12-2023 End: 09-12-2023 ambulatory MD Carly Callejas Work Phone: [facility] Work Phone: Start: 09-12-2023 End: 09-12-2023 Patient encounter procedure [facility]-Laboratory, Specimen Work Phone: Start: 09-10-2023 End: 09-10-2023 ambulatory [facility] Work Phone: Start: 09-10-2023 End: 09-10-2023 Patient encounter procedure [facility]-Nuclear Medicine, [facility] Work Phone: Start: 09-08-2023 End: 09-08-2023 ambulatory [facility] Work Phone: Start: 09-08-2023 End: 09-08-2023 Patient encounter procedure [facility]Laboratory Work Phone: Start: 09-01-2023 End: 09-01-2023 ambulatory [facility] Work Phone: Start: 09-01-2023 End: 09-01-2023 Patient encounter procedure [facility]Laboratory Work Phone: Start: 08-27-2023 End: 08-28-2023 Emergency department patient visit [facility]Emergency Department Work Phone: Start: 08-26-2023 End: 08-26-2023 ambulatory [facility] Work Phone: Start: 08-26-2023 End: 08-26-2023 Patient encounter procedure [facility]-Radiology, [facility] Work Phone: Start: 06-24-2023 ambulatory Zoran Julio APRN.CORRECTIONAL PROBATION OFFICER Work Phone: [facility] Start: 06-24-2023 Follow-up encounter Zoran Julio APRN.CORRECTIONAL PROBATION OFFICER Work Phone: Neurology Comment on above: 06/23 appt follow up Start: 06-09-2023 End: 06-09-2023 Emergency department patient visit Dr. Elieen Nair Work Phone: [facility]Emergency Department Work Phone: Start: 05-23-2023 End: 05-23-2023 Patient encounter procedure Clifford Valenzuela DPM Work Phone: [facility] Comment on above: Ingrown toenail of both feet (Primary Dx ); Post-operative state Start: 05-07-2023 End: 05-07-[address] Eileen Nair Work Phone: [facility] Work Phone: Start: 05-07-2023 End: 05-07-[address] Eileen Nair Work Phone: [facility]-Nuclear Medicine, [facility] Work Phone: Start: 04-30-2023 End: 04-30-2023 Patient encounter procedure Clifford Valenzuela DPM Work Phone: [facility] Comment on above: Ingrown toenail of both feet (Primary Dx ); Onychodystrophy Start: 04-25-2023 End: 04-25-[address] Eileen Nair Work Phone: [facility] Work Phone: Start: 04-25-2023 End: 04-25-[address] Eileen Nair Work Phone: [facility] Gastroenterology Work Phone: Start: 03-27-2023 End: 03-27-[address] Eileen Nair Work Phone: [facility] Work Phone: Start: 03-24-2023 End: 03-24-[address] Eileen Nair Work Phone: [facility] Work Phone: Start: 03-23-[address] Eileen Nair Work Phone: [facility] Start: 02-26-2023 ambulatory Zoran Julio APRN.CORRECTIONAL PROBATION OFFICER Work Phone: Neurology Comment on above: Propranolol Refill Request Start: 01-18-2023 Refill Eileen Nair DO Work Phone: [facility] Comment on above: Medication Question Start: 01-15-2023 End: 01-15-2023 Patient encounter procedure Clifford Valenzuela DPM Work Phone: [facility] Comment on above: Post-operative state (Primary Dx); Acquired mallet toe, right; Ingrowing nail Start: 12-18-2022 ambulatory Amy Sanders APRN.CORRECTIONAL PROBATION OFFICER Work Phone: [facility] [place] Comment on above: Concerta Start: 12-16-2022 End: 12-16-2022 Subsequent hospital visit by physician [facility] Hilda (I-Stat/1.5t) Radiology Start: 12-11-2022 End: 12-11-2022 ambulatory Vanna Elena MD Work Phone: Dermatology Comment on above: Perioral dermatitis (Primary Dx) Start: 12-11-2022 End: 12-11-2022 Telemedicine consultation with patient Vanna Elena MD Work Phone: [facility] Start: 12-06-2022 ambulatory Eileen Nair DO Work Phone: [facility] Start: 12-06-2022 Letter encounter Eileen Nair DO Work Phone: [facility] [place] Comment on above: NCLEX Letter Start: 12-04-2022 End: 12-04-2022 Patient encounter procedure Clifford Valenzuela DPM Work Phone: [facility] Comment on above: Post-operative state (Primary Dx) Start: 11-28-2022 End: 11-28-2022 Patient encounter procedure Nohemy Polk MD Work Phone: [facility] [place] Comment on above: Seborrheic dermatitis (Primary Dx) Start: 11-18-2022 ambulatory Clifford Valenzuela DPM Work Phone: [facility] Comment on above: Return to work Start: 11-09-2022 Telephone encounter Eileen Nair DO Work Phone: NOC Comment on above: Follow Up (Gyant interaction - F/U - att empt made. No answer./) Start: 11-04-2022 Refill Eileen Nair DO Work Phone: [facility] [place] Start: 11-04-2022 End: 11-04-2022 Evaluation and management of inpatient EILEEN NAIR Facility:[facility] Start: 10-31-2022 End: 11-05-2022 Evaluation and management of inpatient KRISTINA FRANKLIN Facility:[facility] Start: 10-30-2022 End: 10-31-2022 Emergency department patient visit EILEEN NAIR Facility:[facility] Start: 10-25-2022 End: 10-25-2022 Subsequent hospital visit by physician Clifford Valenzuela DPM Work Phone: [facility] Comment on above: MT (mallet toe), right [M20.5X1] Start: 10-18-2022 End: 10-18-2022 Admission to establishment [facility] [place] Start: 10-18-2022 End: 10-18-2022 Anesthesia consultation Pst 1 Pre Surgical Lesvia ting Comment on above: Gastroesophageal reflux disease, unspeci fied whether esophagitis present (Primary Dx); Elevated blood pressure reading without diagnosis of hypertension; Pre-op examination; Mild intermittent asthma without complication; POTS (postural orthostatic tachycardia syndrome); Delayed emergence from anesthesia, subsequent encounter; Nonintractable epilepsy without status epilepticus, unspecified epilepsy type (HCC); Narcolepsy without cataplexy Start: 10-18-2022 End: 10-18-2022 Preprocedural examination done Pst 1 Pre Surgical Testing Start: 10-12-2022 Refill Eileen Nair DO Work Phone: [facility] [place] Comment on above: Refill Request Start: 09-04-2022 End: 09-04-2022 Patient encounter procedure Clifford Valenzuela DPM Work Phone: [facility] Comment on above: Pain in toe of right foot (Primary Dx) Start: 08-22-2022 Refill Eileen Nair DO Work Phone: [facility] [place] Comment on above: Medication Problem Start: 08-09-2022 End: 08-09-2022 Patient encounter procedure Clifford Valenzuela DPM Work Phone: [facility] Comment on above: Ingrowing nail (Primary Dx); Pain in toe of left foot; Pain in toe of right foot Start: 07-18-2022 End: 07-18-2022 Patient encounter procedure Clifford Valenzuela DPM Work Phone: [facility] Comment on above: Acquired mallet toe, right (Primary Dx); Post-operative state; Ingrown toenail of both feet Start: 06-21-2022 Telephone encounter Eileen Nair DO Work Phone: [facility] [place] Comment on above: Medication Problem (Only 2 Concerta left ) Start: 06-20-2022 Admission to same day surgery center Clifford Valenzuela DPM Work Phone: [facility] Comment on above: Post toe surgery Start: 06-20-2022 ambulatory Clifford Albert Valenzuela DPM Work Phone: [facility] [place] Start: 06-10-2022 Refill Eileen Nair DO Work Phone: [facility] Comment on above: Medication Problem Forms Start: 06-05-2022 End: 06-05-2022 Patient encounter procedure Clifford Valenzuela DPM Work Phone: [facility] Comment on above: Post-operative state (Primary Dx) Start: 05-26-2022 ambulatory Eileen Nair DO Work Phone: [facility] [place] Comment on above: Concerta Start: 03-27-2022 Orders Only Clifford Valenzuela DPM Work Phone: [facility] Comment on above: Mallet toe, acquired, left (Primary Dx) Start: 02-18-2022 Refill Bertha Edge APRN.CORRECTIONAL PROBATION OFFICER Work Phone: [facility] Comment on above: Refill Request Start: 02-11-2022 End: 02-11-2022 Patient encounter procedure Zari Hager APRN.CORRECTIONAL PROBATION OFFICER Work Phone: Neurology Comment on above: POTS (postural orthostatic tachycardia s yndrome) Start: 01-14-2022 Orders Only Eileen Nair DO Work Phone: [facility] [place] Comment on above: Easy bruising (Primary Dx) Start: 11-26-2021 End: 11-26-2021 Patient encounter procedure Yahaira Arredondo APRN.CORRECTIONAL PROBATION OFFICER Work Phone: [facility] Comment on above: Flu-like symptoms (Primary Dx); Suspected COVID-19 virus infection; Wheezing Start: 11-20-2021 Refill Eileen Nair DO Work Phone: [facility] Comment on above: Refill Request Start: 11-09-2021 ambulatory Lisa Pacheco RN [facility] [place] Start: 11-04-2021 Refill Zoran Julio APRN.CORRECTIONAL PROBATION OFFICER Work Phone: Neurology Comment on above: Refill Request Start: 10-18-2021 ambulatory Eileen Nair DO Work Phone: [facility] Comment on above: Orthotic Rx Start: 10-10-2021 End: 10-10-2021 Patient encounter procedure Nurse [facility] [facility] Comment on above: Screening examination for pulmonary tube rculosis (Primary Dx) Start: 10-09-2021 End: 10-09-2021 Patient encounter procedure Clifford Valenzuela DPM Work Phone: [facility] Comment on above: Acquired mallet toe, right (Primary Dx); Bilateral foot pain Start: 10-08-2021 End: 10-08-2021 Patient encounter procedure Nurse [facility] Comment on above: PPD screening test (Primary Dx) Start: 10-03-2021 End: 10-03-2021 Patient encounter procedure Nurse Peds [facility] Comment on above: Encounter for screening for respiratory tuberculosis (Primary Dx) Start: 10-01-2021 End: 10-01-2021 Patient encounter procedure Doris Juarez APRN.CNP Work Phone: [facility] Comment on above: Well adolescent visit without abnormal f indings (Primary Dx); Intermittent asthma, well controlled; Negative depression screening; Encounter for screening for lipoid disorders; Encounter for screening for respiratory tuberculosis Start: 10-01-2021 End: 10-01-2021 Patient encounter status Doris Juarez APRN.CNP Work Phone: [facility] Start: 09-24-2021 Telephone encounter Clifford Valenzuela DPM Work Phone: [facility] Comment on above: Appointment (patient is requesting an ap pointment with Dr. Valenzuela) Start: 08-22-2021 End: 08-22-2021 Discharged Recurring [facility], [facility] Start: 02-05-2019 End: 02-05-2019 Patient encounter procedure Albert Hilario MD Work Phone: [facility] Work Phone: Start: 06-03-2018 End: 06-03-2018 Emergency department patient visit EILEEN Knowles NAIR [facility] Start: 11-27-2017 End: 11-27-2017 Patient encounter procedure TOMER Espino [facility] Start: 10-03-2017 End: 10-03-2017 Patient encounter procedure TOMER Espino [facility] Start: 09-29-2017 End: 09-30-2017 Patient encounter procedure [facility] Start: 09-26-2017 End: 09-27-2017 Patient encounter procedure [facility] Start: 09-15-2017 End: 09-15-2017 Patient encounter procedure [facility] Start: 09-15-2017 End: 09-15-2017 Patient encounter procedure TOMER Espino [facility] Start: 08-28-2017 End: 08-28-2017 Patient encounter procedure TOMER Espino [facility] Procedures Date Procedure Procedure Detail Performing Clinician Start: 02-28-2025 Gram stain microscopy C gus Callejas MD Work Phone: Start: 02-28-2025 End: 02-28-2025 Source specific culture Carly Callejas MD Work Phone: Start: 02-22-2025 Immature reticulocyte fraction Carly Callejas MD Work Phone: Start: 02-22-2025 Total iron binding c apacity measurement Carly Callejas MD Work Phone: Start: 02-22-2025 Vitamin D, 25-hydrox y measurement Carly Callejas MD Work Phone: Comment on above: Vitamin D StatusDefi ciency: <20 ng/mL (50nmol/L)Insufficiency: 20-30 ng/mL (50-75 nmol/L)Sufficiency: 30-100 ng/mL (75-250 nmol/L)Toxicity: >100 ng/mL (>250 nmol/L) Start: 02-02-2025 Esophagoscp rig watkins soral hypopharynx crv esoph Anderson Barker DO Work Phone: Start: 01-20-2025 Total iron binding c apacity measurement Carly Callejas MD Work Phone: Start: 12-29-2024 Bacteria identification test Carly Callejas MD Work Phone: Start: 12-29-2024 Streptococcus pyogen es rRNA assay Carly Callejas MD Work Phone: Start: 12-06-2024 Procedure Carly narayanan MD Work Phone: Comment on above: Test Ordered: [id number] Complement C2Test(s) [id number] X9vdeneho are labeled for research purposes only by theassay's blue split trimmer. The performance characteristics ofthis assay have not been established by the blue split trimmer.The result should not be used for treatment or fordiagnostic purposes without confirmation of the diagnosisby another medically established diagnostic product orprocedure. The performance characteristics were determinedby [facility].Complement C2 1.3 [L ] mg/dL Reference Range: 1.4-3.3Performed at: - [facility] [id number] Director: Zach Ferguson MD, Phone: [phone] at: - [facility] [id number] Director: Pravin Pandya PhD, Phone: [phone] Start: 12-06-2024 Tryptase measurement Ch stella Callejas MD Work Phone: Comment on above: Performed at: - [address] [id number] Director: Zach Ferguson MD, Phone: [phone] Start: 11-26-2024 Total iron binding c apacity measurement Carly Callejas MD Work Phone: Start: 11-13-2024 Urnls dip stick/tabl et reagent auto microscopy Carly Callejas MD Work Phone: Start: 11-13-2024 Estimated creatinine clearance Carly Callejas MD Work Phone: Start: 08-31-2024 Antibody screen [facility] Comment on above: Order Comment: Speci men Type: BLOOD SPECIMENOrdering Facility: [facility] Address: [address] [place] [address] Performed By: #### T SCR ####CC MAIN BLOOD BANKCLIA [id number] [facility] ROOMK [id number] [facility] Start: 08-13-2024 Liquid based cervica l cytology screening Carly Callejas MD Work Phone: Comment on above: NEGATIVE FOR INTRAEP ITHELIAL LESION OR MALIGNANCY. This liquid based Th inPrep(R) pap test was screened withthe use of an image guided system. The HPV DNA reflex c riteria were not met with this specimenresult therefore, no HPV testing was performed.Performed at: [facility] Histo [address] [id number] Director: Sumanth Scott MD, Phone: [phone] at: [address] [id number] Director: Anjelica Carrasquillo MD, Phone: [phone] Start: 08-04-2024 Parathyroid hormone measurement Carly Callejas MD Work Phone: Start: 08-04-2024 Thyroglobulin antibo dy measurement Carly Callejas MD Work Phone: Comment on above: Thyroglobulin Antibo dy measured by Sugar CoulterMethodologyIt should be noted that the presence of thyroglobulinantibodies may not be pathogenic nor diagnostic, especiallyat very low levels. The assay blue split trimmer has found thatfour percent of individuals without evidence of thyroiddisease or autoimmunity will have positive TgAb levels upto 4 IU/mL.Performed at: [address] [id number] Director: Pravin Pandya PhD, Phone: [phone] Start: 07-27-2024 Measurement of renal function Carly Callejas MD Work Phone: Comment on above: GFR Calc Start: 07-19-2024 Colonoscopy flx dx w /collj spec when pfrmd Bernie Martines MD Work Phone: Start: 07-19-2024 Gluc bld gluc mntr d ev cleared fda spec home use Carissa Espana MD Work Phone: Start: 06-15-2024 X-ray of cervical spine Carly Callejas MD Work Phone: Start: 06-15-2024 X-ray of lumbosacral spine Carly Callejas MD Work Phone: Start: 04-13-[address] atten uation skull base mid-thigh Bernie Martines MD Work Phone: Start: 04-09-2024 Esophagoscp rig watkins soral hypopharynx crv esoph Dustin Tamayo DO Work Phone: Start: 11-18-2023 Radiologic exam abdo men 2 views Bernie Martines MD Work Phone: Start: 09-15-2023 CT of abdomen with contrast Start: 09-10-2023 Radionuclide imaging of liver and/or biliary tract using radioactive isotope Start: 08-27-2023 Computed tomography of abdomen and pelvis with intravenous contrast Start: 08-26-2023 Diagnostic radiograp hy of abdomen Start: 06-09-2023 SARS-CoV-2 & FLU Ant igen (Rapid) Dr. Eileen Nair Work Phone: Start: 06-09-2023 Viral antigen assay Start: 06-09-2023 Plain chest X-ray Dr. Roque Nair Work Phone: Start: 05-07-2023 Radionuclide gastric emptying study Dr. Eileen Nair Work Phone: Start: 04-30-2023 End: 04-30-2023 Avulsion nail plate partial/complete simple 1 Clifford Valenzuela DPM Work Phone: Start: 03-23-[address] Eileen Nair Work Phone: Start: 01-15-2023 Radex foot complete minimum 3 views Alli De Guzman DPM Work Phone: Start: 12-04-2022 Radex foot complete minimum 3 views Clifford Valenzuela DPM Work Phone: Start: 10-25-2022 End: 10-25-2022 Radex foot complete minimum 3 views Clifford Rodriguezman DPM Work Phone: Start: 08-11-2022 Avulsion nail plate partial/complete simple 1 Clifford Valenzuela DPM Work Phone: Start: 06-05-2022 Radex foot complete minimum 3 views Kaveh Trevino DPM Work Phone: Start: 02-09-2022 Adult depression scr eening assessment Zari Hager CATALYST UNIT OPERATOR.CORRECTIONAL PROBATION OFFICER Work Phone: Start: 12-30-2021 Adult depression scr eening assessment Eileen Nair DO Work Phone: Start: 10-08-2021 Skin test tuberculos is intradermal Alannah Guthrie MD Work Phone: Start: 10-01-2021 Skin test tuberculos is intradermal Doris Juarez CATALYST UNIT OPERATOR.CORRECTIONAL PROBATION OFFICER Work Phone: Start: 10-01-2021 Adult depression scr eening assessment Doris Juarez CATALYST UNIT OPERATOR.CORRECTIONAL PROBATION OFFICER Work Phone: Start: 09-12-2020 Adult depression scr eening assessment Clifford Valenzuela DPM Work Phone: Start: 02-05-2019 End: 02-05-2019 Adolescent tobacco screening was negative - non user Albert Hilario MD Work Phone: H/O: surgery H/O bilateral salpingectomy Nurys Tovar MD Work Phone: NEGATED: Highlighted rowStart: 02-05-2019 End: 02-05-2019 Documentation of current medications [facility] Plan of Treatment Date Care Activity Detail Author Start: 12-07-2034 Urine microalbumin profile DTaP,Tdap,Td Vaccine (8 - Td or Tdap) [facility] Start: 12-07-2025 Pneumococcal vaccination Pneumococcal Vaccine (2 of 2 - PCV) [facility] Start: 05-31-2025 End: 05-31-2025 Patient encounter procedure 05/31/2025 2:00 PM EST Office Visit Allergy [facility] [address] [place] [address] [place] [address] [place] [address] PENICILLIN TESTING / FOLLOW UP [facility]ergy [facility] Comment on above: PENICILLIN TESTING / FOLLOW UP Start: 05-19-2025 End: 05-19-2025 Patient encounter procedure 05/19/2025 8:20 AM EST Office Visit [facility] [address] [place], [place] [phone] Alan Cortés MD [address] [phone] 9 mo f/up. pe [facility] Comment on above: 9 mo f/up. pe Start: 04-27-2025 End: 04-27-2025 Patient encounter procedure 04/27/2025 8:30 AM EDT Office [facility] [address] [address] Yung Celeste MD [address] [place] [address] 3 month f/u [facility] Comment on above: 3 month f/u Start: 04-22-2025 End: 04-22-2025 Admission to same day surgery center 04/22/2025 1:00 PM EDT [facility] General Surgery [facility] [address] [place] [address] [place] [address] 4 wk post op General Surgery Comment on above: 4 wk post op Start: 04-06-2025 End: 04-06-2025 ambulatory 04/06/2025 1:45 PM EDT OT/PT/Speech Visit [facility] [address] [place] [address] Moody Lisa, PT 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 [facility] Comment on above: M25.50 (ICD-10-CM) - Hypermobility arthr algia Start: 03-23-2025 End: 03-23-2025 Patient encounter procedure [facility] Comment on above: Gastroparesis [K31.84] 03/22 Authorized Start: 03-21-2025 End: 03-21-2025 ambulatory 03/21/2025 6:00 PM EDT OT/PT/Speech Visit [facility] [address] [place] [address] Jayla Gauthier, CANCELLATION CLERK [address] [place] [address] 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 [facility] Comment on above: 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 (ICD-10-CM) - Hypermobility arthr algia Start: 03-15-2025 End: 03-15-2025 Admission to same day surgery center 03/15/2025 9:20 AM EDT PAT Pre Anesthesia [address] [place] [address] 1, Pac Brandy [address] [place] [address] surgery date 03/23 Pre Anesthesia Comment on above: surgery date 03/23 Start: 03-09-2025 End: 06-08-2025 ANTI-SP100 AND ANTI-GP210 ANTIBODIES, IGG [facility] Work Phone: Comment on above: Expected: 03/09/2025, Expires: Start: 03-09-2025 End: 06-08-2025 Mitochondria Ab [Presence] in Serum by Immunofluorescence [facility] Comment on above: Expected: 03/09/2025, Expires: Start: 03-09-2025 End: 06-08-2025 Smooth muscle Ab [Presence] in Serum [facility] Comment on above: Expected: 03/09/2025, Expires: Start: 03-09-2025 End: 03-09-2025 Patient encounter procedure 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 LFTs [R79.8 9] Start: 03-08-2025 End: 03-08-2025 ambulatory 03/08/2025 6:00 PM EDT OT/PT/Speech Visit [facility] [address] [place], [place] [id number] Moody Lisa PT 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 [facility] Comment on above: M25.50 (ICD-10-CM) - Hypermobility arthr algia Start: 03-07-2025 Influenza vaccination Influenza Vaccine (#1) [facility] Start: 03-02-2025 End: 03-02-2025 ambulatory Allergy Comment on above: 3month FU 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 Start: 03-01-2025 End: 03-01-2025 Admission to same day surgery center 03/01/2025 1:30 PM EDT [facility] General Surgery [address] [address] Anderson Barker, [place] [address] 4 wk post op General Surgery Comment on above: 4 wk post op Start: 02-16-2025 End: 02-16-2025 ambulatory 02/16/2025 2:30 PM EDT OT/PT/Speech Visit [facility] [address] [place], [place] [address] Moody Lisa, PT 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 [facility] Comment on above: M25.50 (ICD-10-CM) - Hypermobility arthr algia Start: 02-09-2025 End: 02-09-2025 ambulatory 02/09/2025 2:30 PM EDT OT/PT/Speech Visit [facility] [address] [place] [address] Moody Lisa, PT 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 [facility] Comment on above: M25.50 (ICD-10-CM) - Hypermobility arthr algia Start: 02-02-2025 End: 02-02-2025 Patient encounter procedure 02/02/2025 1:00 PM EDT Appointment [facility] [place] [address] Anderson Barker, [place] [address] Gastroparesis [K31.84] [facility] Comment on above: Gastroparesis [K31.84] Start: 01-26-2025 End: 01-26-2025 ambulatory 01/26/2025 11:15 AM EDT OT/PT/Speech Visit [facility] [address] [place] [address] Moody Lisa PT Hypermobile joints and pain [facility] Comment on above: Hypermobile joints and pain Start: 01-26-2025 End: 01-26-2025 Admission to same day surgery center 01/26/2025 8:00 AM EDT PAT Pre Anesthesia [address] [facility] [place] [address] 1, [facility] [address] [facility] [place] [address] surgery date 02/02 Pre Anesthesia Comment on above: surgery date 02/02 Start: 01-24-2025 End: 01-24-2025 Patient encounter procedure 01/24/2025 4:40 PM EDT Office [facility] [address] [address] Yung Celeste MD [address] [place] [address] positive khris f/u [facility] Comment on above: positive khris f/u Start: 01-20-2025 Urine microalbumin profile [facility] Start: 01-19-2025 End: 04-20-2025 C reactive protein [Mass/volume] in Serum or Plasma C-REACTIVE PROTEIN Lab Routine Fever, unspecified fever cause Rash and nonspecific skin eruption Pain in joint, multiple sites Periodic fever syndrome (HCC) Periodic fever, aphthous stomatitis, pharyngitis, adenitis (PFAPA) syndrome (HCC) Expected: 01/19/2025, Expires: 04/20/2025 [facility] Comment on above: Expected: 01/19/2025, Expires: Start: 01-19-2025 End: 04-20-2025 CBC W Auto Differential panel - Blood COMPLETE BLOOD COUNT AND DIFFERENTIAL Lab Routine Fever, unspecified fever cause Rash and nonspecific skin eruption Pain in joint, multiple sites Periodic fever syndrome (HCC) Periodic fever, aphthous stomatitis, pharyngitis, adenitis (PFAPA) syndrome (HCC) Expected: 01/19/2025, Expires: 04/20/2025 [facility] Work Phone: Comment on above: Expected: 01/19/2025, Expires: Start: 01-19-2025 End: 04-20-2025 Comprehensive metabolic 2000 panel - Serum or Plasma COMPREHENSIVE METABOLIC PANEL Lab Routine Fever, unspecified fever cause Rash and nonspecific skin eruption Pain in joint, multiple sites Periodic fever syndrome (HCC) Periodic fever, aphthous stomatitis, pharyngitis, adenitis (PFAPA) syndrome (HCC) Expected: 01/19/2025, Expires: 04/20/2025 [facility] Comment on above: Expected: 01/19/2025, Expires: Start: 01-19-2025 End: 04-20-2025 Erythrocyte sedimentation rate SEDIMENTATION RATE, WESTERGREN Lab Routine Fever, unspecified fever cause Rash and nonspecific skin eruption Pain in joint, multiple sites Periodic fever syndrome (HCC) Periodic fever, aphthous stomatitis, pharyngitis, adenitis (PFAPA) syndrome (HCC) Expected: 01/19/2025, Expires: 04/20/2025 [facility] Comment on above: Expected: 01/19/2025, Expires: Start: 01-19-2025 End: 04-20-2025 Ferritin [Mass/volume] in Serum or Plasma FERRITIN Lab Routine Fever, unspecified fever cause Rash and nonspecific skin eruption Pain in joint, multiple sites Periodic fever syndrome (HCC) Periodic fever, aphthous stomatitis, pharyngitis, adenitis (PFAPA) syndrome (HCC) Expected: 01/19/2025, Expires: 04/20/2025 [facility] Comment on above: Expected: 01/19/2025, Expires: Start: 01-19-2025 End: 04-20-2025 Protein/Creatinine [Mass Ratio] in Urine PROTEIN / CREATININE RATIO Lab Routine Fever, unspecified fever cause Rash and nonspecific skin eruption Pain in joint, multiple sites Periodic fever syndrome (HCC) Periodic fever, aphthous stomatitis, pharyngitis, adenitis (PFAPA) syndrome (HCC) Expected: 01/19/2025, Expires: 04/20/2025 [facility] Comment on above: Expected: 01/19/2025, Expires: Start: 01-19-2025 End: 04-20-2025 Urinalysis complete panel - Urine URINALYSIS, WITH MICROSCOPIC Lab Routine Fever, unspecified fever cause Rash and nonspecific skin eruption Pain in joint, multiple sites Periodic fever syndrome (HCC) Periodic fever, aphthous stomatitis, pharyngitis, adenitis (PFAPA) syndrome (HCC) Expected: 01/19/2025, Expires: 04/20/2025 [facility] Comment on above: Expected: 01/19/2025, Expires: Start: 01-19-2025 End: 01-19-2025 Patient encounter procedure 01/19/2025 11:20 AM EDT Office [facility] [address] [place], [place] [phone] Yung Celeste MD [address] [phone] positive khris f/u [facility] Comment on above: positive khris f/u Start: 01-18-2025 Meningococcal Conjugate Vaccine (3 - Risk 2-dose series) Meningococcal Conjugate Vaccine (3 - Risk 2-dose series) [facility] Start: 12-21-2024 End: 12-21-2024 Follow-up encounter 12/21/2024 10:00 AM EDT [facility] Neurology [address] [place] [address] Zari Hager, CATALYST UNIT OPERATOR.CORRECTIONAL PROBATION OFFICER [address] [place] [address] POTS Follow Up, establish care was mar[facility]us [facility] Comment on above: POTS Follow Up, establish care was juice [facility] Start: 12-14-2024 Intravenous infusion THER/PROPH/DIAG IV INF [facility] Start: 12-14-2024 Iv infusion therapy prophylaxis/dx ea hour THER/PROPH/DIAG IV INF [facility] Start: 12-14-2024 Iv infusion therapy/prophylaxis /dx 1st to 1 hr THER/PROPH/DIAG IV INF [facility] Start: 12-07-2024 End: 12-07-2024 Nursing evaluation of patient and report Allergy Comment on above: TEO INJ Pneumovax vaccine Start: 12-06-2024 [facility] Start: 12-01-2024 End: 12-01-2024 Follow-up encounter 12/01/2024 9:30 AM EDT [facility] All[facility] [address] [place] [address] [place] [address] [place] [phone] HAE, frequent infection follow up Allergy Comment on above: HAE, frequent infection follow up Start: 11-24-2024 End: 11-24-2024 ambulatory 11/24/2024 4:30 PM EDT [facility] [address] [address] Yung Celeste MD [address] [place] [address] Positive KHRIS time/date given pt aware [facility] Comment on above: Positive KHRIS time/date given pt aware Start: 11-24-2024 End: 11-24-2024 Patient encounter procedure 11/24/2024 10:00 AM EDT Office Visit Gastroenterology [address] [address] Bernie Martines MD [address] [facility] [place] [address] 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 Start: 11-16-2024 End: 11-16-2024 Patient encounter procedure 11/16/2024 9:20 AM EDT Office Visit OB/Gynecology [address] [place] [address] Lizbet Rider MD [address] [place] [address] Annual OB/Gynecology Comment on above: Annual Start: 11-13-2024 End: 11-13-2024 [facility] Start: 11-01-2024 End: 01-31-2025 ANTI-C1Q ANTIBODY IGG ANTI-C1Q ANTIBODY IGG Lab Routine Fever, unspecified fever cause Rash and nonspecific skin eruption Pain in joint, multiple sites Angioedema, sequela POTS (postural orthostatic tachycardia syndrome) Gastroparesis Chronic fatigue syndrome Anti-TPO antibodies present Fever in other diseases Malaise and fatigue Expected: 11/01/2024, Expires: 01/31/2025 [facility] Comment on above: Expected: 11/01/2024, Expires: Start: 11-01-2024 End: 01-31-2025 BETA 2 GLYCOPROTEIN 1, IGA BETA 2 GLYCOPROTEIN 1, IGA Lab Routine Fever, unspecified fever cause Rash and nonspecific skin eruption Pain in joint, multiple sites Angioedema, sequela POTS (postural orthostatic tachycardia syndrome) Gastroparesis Chronic fatigue syndrome Anti-TPO antibodies present Fever in other diseases Malaise and fatigue Expected: 11/01/2024, Expires: 01/31/2025 [facility] Comment on above: Expected: 11/01/2024, Expires: Start: 11-01-2024 End: 01-31-2025 BETA 2 GLYCOPROTEIN, IGG BETA 2 GLYCOPROTEIN, IGG Lab Routine Fever, unspecified fever cause Rash and nonspecific skin eruption Pain in joint, multiple sites Angioedema, sequela POTS (postural orthostatic tachycardia syndrome) Gastroparesis Chronic fatigue syndrome Anti-TPO antibodies present Fever in other diseases Malaise and fatigue Expected: 11/01/2024, Expires: 01/31/2025 [facility] Comment on above: Expected: 11/01/2024, Expires: Start: 11-01-2024 End: 01-31-2025 BETA 2 GLYCOPROTEIN, IGM BETA 2 GLYCOPROTEIN, IGM Lab Routine Fever, unspecified fever cause Rash and nonspecific skin eruption Pain in joint, multiple sites Angioedema, sequela POTS (postural orthostatic tachycardia syndrome) Gastroparesis Chronic fatigue syndrome Anti-TPO antibodies present Fever in other diseases Malaise and fatigue Expected: 11/01/2024, Expires: 01/31/2025 [facility] Comment on above: Expected: 11/01/2024, Expires: Start: 11-01-2024 End: 01-31-2025 BLOOD TB SCREEN BLOOD TB SCREEN Lab Routine Fever, unspecified fever cause Rash and nonspecific skin eruption Pain in joint, multiple sites Angioedema, sequela POTS (postural orthostatic tachycardia syndrome) Gastroparesis Chronic fatigue syndrome Anti-TPO antibodies present Fever in other diseases Malaise and fatigue Expected: 11/01/2024, Expires: 01/31/2025 [facility] Comment on above: Expected: 11/01/2024, Expires: Start: 11-01-2024 End: 01-31-2025 C reactive protein [Mass/volume] in Serum or Plasma C-REACTIVE PROTEIN Lab Routine Fever, unspecified fever cause Rash and nonspecific skin eruption Pain in joint, multiple sites Angioedema, sequela POTS (postural orthostatic tachycardia syndrome) Gastroparesis Chronic fatigue syndrome Anti-TPO antibodies present Fever in other diseases Malaise and fatigue Expected: 11/01/2024, Expires: 01/31/2025 [facility] Comment on above: Expected: 11/01/2024, Expires: Start: 11-01-2024 End: 01-31-2025 Cardiolipin IgG and IgM panel - Serum ANTI-CARDIOLIPIN AB Lab Routine Fever, unspecified fever cause Rash and nonspecific skin eruption Pain in joint, multiple sites Angioedema, sequela POTS (postural orthostatic tachycardia syndrome) Gastroparesis Chronic fatigue syndrome Anti-TPO antibodies present Fever in other diseases Malaise and fatigue Expected: 11/01/2024, Expires: 01/31/2025 [facility] Comment on above: Expected: 11/01/2024, Expires: Start: 11-01-2024 End: 01-31-2025 CBC W Auto Differential panel - Blood COMPLETE BLOOD COUNT AND DIFFERENTIAL Lab Routine Fever, unspecified fever cause Rash and nonspecific skin eruption Pain in joint, multiple sites Angioedema, sequela POTS (postural orthostatic tachycardia syndrome) Gastroparesis Chronic fatigue syndrome Anti-TPO antibodies present Fever in other diseases Malaise and fatigue Expected: 11/01/2024, Expires: 01/31/2025 [facility] Comment on above: Expected: 11/01/2024, Expires: Start: 11-01-2024 End: 01-31-2025 Chronic hepatitis differentiation between hepatitis B and C virus panel - Serum or Plasma HEP REMOTE PANEL BL Lab Routine Fever, unspecified fever cause Rash and nonspecific skin eruption Pain in joint, multiple sites Angioedema, sequela POTS (postural orthostatic tachycardia syndrome) Gastroparesis Chronic fatigue syndrome Anti-TPO antibodies present Fever in other diseases Malaise and fatigue Expected: 11/01/2024, Expires: 01/31/2025 [facility] Comment on above: Expected: 11/01/2024, Expires: Start: 11-01-2024 End: 01-31-2025 Complement C3 [Mass/volume] in Serum or Plasma C3 COMPLEMENT Lab Routine Fever, unspecified fever cause Rash and nonspecific skin eruption Pain in joint, multiple sites Angioedema, sequela POTS (postural orthostatic tachycardia syndrome) Gastroparesis Chronic fatigue syndrome Anti-TPO antibodies present Fever in other diseases Malaise and fatigue Expected: 11/01/2024, Expires: 01/31/2025 [facility] Comment on above: Expected: 11/01/2024, Expires: Start: 11-01-2024 End: 01-31-2025 Complement C4 [Mass/volume] in Serum or Plasma C4 COMPLEMENT Lab Routine Fever, unspecified fever cause Rash and nonspecific skin eruption Pain in joint, multiple sites Angioedema, sequela POTS (postural orthostatic tachycardia syndrome) Gastroparesis Chronic fatigue syndrome Anti-TPO antibodies present Fever in other diseases Malaise and fatigue Expected: 11/01/2024, Expires: 01/31/2025 [facility] Comment on above: Expected: 11/01/2024, Expires: Start: 11-01-2024 End: 01-31-2025 Comprehensive metabolic 2000 panel - Serum or Plasma COMPREHENSIVE METABOLIC PANEL Lab Routine Fever, unspecified fever cause Rash and nonspecific skin eruption Pain in joint, multiple sites Angioedema, sequela POTS (postural orthostatic tachycardia syndrome) Gastroparesis Chronic fatigue syndrome Anti-TPO antibodies present Fever in other diseases Malaise and fatigue Expected: 11/01/2024, Expires: 01/31/2025 [facility] Comment on above: Expected: 11/01/2024, Expires: Start: 11-01-2024 End: 01-31-2025 DNA double strand Ab [Presence] in Serum by Immunofluorescence (IF) Crithidia luciliae CRITHIDIA LUCILIAE Lab Routine Fever, unspecified fever cause Rash and nonspecific skin eruption Pain in joint, multiple sites Angioedema, sequela POTS (postural orthostatic tachycardia syndrome) Gastroparesis Chronic fatigue syndrome Anti-TPO antibodies present Fever in other diseases Malaise and fatigue Expected: 11/01/2024, Expires: 01/31/2025 [facility] Comment on above: Expected: 11/01/2024, Expires: Start: 11-01-2024 End: 01-31-2025 DNA double strand Ab [Units/volume] in Serum by Immunoassay DNA AB DS + CONF BLD Lab Routine Fever, unspecified fever cause Rash and nonspecific skin eruption Pain in joint, multiple sites Angioedema, sequela POTS (postural orthostatic tachycardia syndrome) Gastroparesis Chronic fatigue syndrome Anti-TPO antibodies present Fever in other diseases Malaise and fatigue Expected: 11/01/2024, Expires: 01/31/2025 [facility] Comment on above: Expected: 11/01/2024, Expires: Start: 11-01-2024 End: 01-31-2025 Erythrocyte sedimentation rate SEDIMENTATION RATE, WESTERGREN Lab Routine Fever, unspecified fever cause Rash and nonspecific skin eruption Pain in joint, multiple sites Angioedema, sequela POTS (postural orthostatic tachycardia syndrome) Gastroparesis Chronic fatigue syndrome Anti-TPO antibodies present Fever in other diseases Malaise and fatigue Expected: 11/01/2024, Expires: 01/31/2025 [facility] Comment on above: Expected: 11/01/2024, Expires: Start: 11-01-2024 End: 01-31-2025 Extractable nuclear Ab panel - Serum ANTI MODESTA ID Lab Routine Fever, unspecified fever cause Rash and nonspecific skin eruption Pain in joint, multiple sites Angioedema, sequela POTS (postural orthostatic tachycardia syndrome) Gastroparesis Chronic fatigue syndrome Anti-TPO antibodies present Fever in other diseases Malaise and fatigue Expected: 11/01/2024, Expires: 01/31/2025 [facility] Comment on above: Expected: 11/01/2024, Expires: Start: 11-01-2024 End: 01-31-2025 Ferritin [Mass/volume] in Serum or Plasma FERRITIN Lab Routine Fever, unspecified fever cause Rash and nonspecific skin eruption Pain in joint, multiple sites Angioedema, sequela POTS (postural orthostatic tachycardia syndrome) Gastroparesis Chronic fatigue syndrome Anti-TPO antibodies present Fever in other diseases Malaise and fatigue Expected: 11/01/2024, Expires: 01/31/2025 [facility] Comment on above: Expected: 11/01/2024, Expires: Start: 11-01-2024 End: 01-31-[address] LUPUS ANTICOAG PL Lab Routine Fever, unspecified fever cause Rash and nonspecific skin eruption Pain in joint, multiple sites Angioedema, sequela POTS (postural orthostatic tachycardia syndrome) Gastroparesis Chronic fatigue syndrome Anti-TPO antibodies present Fever in other diseases Malaise and fatigue Expected: 11/01/2024, Expires: 01/31/2025 [facility] Comment on above: Expected: 11/01/2024, Expires: Start: 11-01-2024 End: 11-01-2024 Patient encounter procedure 11/01/2024 2:00 PM EDT Office [facility] [address] [address] Yung Celeste MD [address] [place] [address] Positive KHRIS [facility] Comment on above: Positive KHRIS Start: 11-01-2024 End: 01-31-2025 PROTEIN ELECTROPHORESIS SERUM W/INTERP PROTEIN ELECTROPHORESIS SERUM W/INTERP Lab Routine Fever, unspecified fever cause Rash and nonspecific skin eruption Pain in joint, multiple sites Angioedema, sequela POTS (postural orthostatic tachycardia syndrome) Gastroparesis Chronic fatigue syndrome Anti-TPO antibodies present Fever in other diseases Malaise and fatigue Expected: 11/01/2024, Expires: 01/31/2025 [facility] Work Phone: Comment on above: Expected: 11/01/2024, Expires: Start: 11-01-2024 End: 01-31-2025 Protein/Creatinine [Mass Ratio] in Urine PROTEIN / CREATININE RATIO Lab Routine Fever, unspecified fever cause Rash and nonspecific skin eruption Pain in joint, multiple sites Angioedema, sequela POTS (postural orthostatic tachycardia syndrome) Gastroparesis Chronic fatigue syndrome Anti-TPO antibodies present Fever in other diseases Malaise and fatigue Expected: 11/01/2024, Expires: 01/31/2025 [facility] Comment on above: Expected: 11/01/2024, Expires: Start: 11-01-2024 End: 01-31-2025 Urinalysis complete panel - Urine URINALYSIS, WITH MICROSCOPIC Lab Routine Fever, unspecified fever cause Rash and nonspecific skin eruption Pain in joint, multiple sites Angioedema, sequela POTS (postural orthostatic tachycardia syndrome) Gastroparesis Chronic fatigue syndrome Anti-TPO antibodies present Fever in other diseases Malaise and fatigue Expected: 11/01/2024, Expires: 01/31/2025 [facility] Comment on above: Expected: 11/01/2024, Expires: Start: 10-13-2024 End: 01-12-2025 COMPLEMENT DEFICIENCY ASSAY [facility] Comment on above: Expected: 10/13/2024, Expires: Start: 10-13-2024 End: 01-12-2025 HUMORAL IMMUNITY PANEL 1 [facility] Work Phone: Comment on above: Expected: 10/13/2024, Expires: Start: 10-13-2024 End: 01-12-2025 Immunodeficiency panel - Blood by Flow cytometry (FC) [facility] Comment on above: Expected: 10/13/2024, Expires: Start: 10-13-2024 End: 01-12-2025 MANNOSE BINDING LECTIN [facility] Comment on above: Expected: 10/13/2024, Expires: Start: 10-13-2024 End: 10-13-2024 ambulatory 10/13/2024 9:30 AM EDT [facility] [address] [id number] [place] [address] [place] [address] Hereditary Angioedema labs FU [facility] Comment on above: Hereditary Angioedema labs FU Start: 09-22-2024 End: 12-22-2024 C1Q COMPLEMENT PROT C1Q COMPLEMENT PROT Lab Routine Angioedema, sequela Expected: 09/22/2024, Expires: 12/22/2024 [facility] Work Phone: Comment on above: Expected: 09/22/2024, Expires: Start: 09-22-2024 End: 12-22-2024 Complement C2 [Mass/volume] in Serum or Plasma C2 COMPLEMENT BLD Lab Routine Angioedema, sequela Expected: 09/22/2024, Expires: 12/22/2024 [facility] Comment on above: Expected: 09/22/2024, Expires: Start: 09-21-2024 End: 09-21-2024 Follow-up encounter 09/21/2024 8:30 AM EDT [facility] G[facility]enterology [facility] [address] [place] [address] Genesis Gavin PA-C [address] [place] [address] GP Follow up Gastroenterology Comment on above: GP Follow up Start: 08-25-2024 End: 11-24-2024 C1Q COMPLEMENT PROT [facility] Comment on above: Expected: 08/25/2024, Expires: Start: 08-25-2024 End: 11-24-2024 Cobalamin (Vitamin B12) [Mass/volume] in Serum or Plasma [facility] Comment on above: Expected: 08/25/2024, Expires: Start: 08-25-2024 End: 11-24-2024 Complement C1 esterase inhibitor [Mass/volume] in Serum or Plasma [facility] Work Phone: Comment on above: Expected: 08/25/2024, Expires: Start: 08-25-2024 End: 11-24-2024 Complement C1 esterase inhibitor.functional/Compl ement C1 esterase inhibitor.total in Serum or Plasma [facility] Comment on above: Expected: 08/25/2024, Expires: Start: 08-25-2024 End: 11-24-2024 Complement C2 [Mass/volume] in Serum or Plasma [facility] Comment on above: Expected: 08/25/2024, Expires: Start: 08-25-2024 End: 11-24-2024 Complement C4 [Mass/volume] in Serum or Plasma [facility] Comment on above: Expected: 08/25/2024, Expires: Start: 08-25-2024 End: 11-24-2024 Pyridoxine [Mass/volume] in Serum or Plasma [facility] Comment on above: Expected: 08/25/2024, Expires: Start: 08-25-2024 End: 08-25-2024 ambulatory 08/25/2024 9:00 AM EST [facility] [address] [place] [address] [place] [address] [place] [address] [facility] Comment on above: Hereditary Angioedema Start: 08-23-2024 End: 08-23-2024 ambulatory 08/23/2024 3:00 PM EST [facility] [address] [place], [place] [phone] Alan Cortés MD [address] [id number] 6 wk new f/up virtual. pe [facility] Comment on above: 6 wk new f/up virtual. pe Start: 07-28-2024 End: 07-28-2024 Patient encounter procedure 07/28/2024 1:20 PM EST Office Visit [facility] [address] [place], [place] [phone] Alan Cortés MD [address] [phone] new patient // positive khris [facility] Comment on above: new patient // positive khris Start: 07-19-2024 End: 07-19-2024 Patient encounter procedure 07/19/2024 12:30 PM EST Appointment [facility] [place] [place] [address] Dustin Tamayo DO [address] [place] [address] Aphthous ulcer of mouth [K12.0] [facility] Comment on above: Aphthous ulcer of mouth [K12.0] Start: 07-13-2024 End: 07-13-2025 KHRIS BY IFA WITH REFLEX [facility] Comment on above: Expected: 07/13/2024, Expires: Start: 07-13-2024 End: 07-13-2025 C reactive protein [Mass/volume] in Serum or Plasma [facility] Comment on above: Expected: 07/13/2024, Expires: Start: 07-13-2024 End: 07-13-2025 Complement C3 [Mass/volume] in Serum or Plasma [facility] Comment on above: Expected: 07/13/2024, Expires: Start: 07-13-2024 End: 07-13-2025 Complement C4 [Mass/volume] in Serum or Plasma [facility] Comment on above: Expected: 07/13/2024, Expires: Start: 07-13-2024 End: 10-12-2024 Creatine kinase [Enzymatic activity/volume] in Serum or Plasma [facility] Comment on above: Expected: 07/13/2024, Expires: Start: 07-13-2024 End: 07-13-2025 Cyclic citrullinated peptide IgG Ab [Units/volume] in Serum or Plasma [facility] Comment on above: Expected: 07/13/2024, Expires: Start: 07-13-2024 End: 07-13-2025 DNA double strand Ab [Units/volume] in Serum by Immunoassay DNA AB DS + CONF BLD Lab Routine Gastroparesis POTS (postural orthostatic tachycardia syndrome) Chronic fatigue syndrome Expected: 07/13/2024, Expires: 07/13/2025 [facility] Comment on above: Expected: 07/13/2024, Expires: Start: 07-13-2024 End: 07-13-2025 Erythrocyte sedimentation rate [facility] Comment on above: Expected: 07/13/2024, Expires: Start: 07-13-2024 End: 07-13-2025 Hepatitis B virus core Ab [Presence] in Serum [facility] Comment on above: Expected: 07/13/2024, Expires: Start: 07-13-2024 End: 10-12-2024 Hepatitis B virus surface Ab [Presence] in Serum [facility] Comment on above: Expected: 07/13/2024, Expires: Start: 07-13-2024 End: 07-13-2025 Hepatitis B virus surface Ag [Presence] in Serum [facility] Work Phone: Comment on above: Expected: 07/13/2024, Expires: Start: 07-13-2024 End: 07-13-2025 Hepatitis C virus Ab [Presence] in Serum [facility] Comment on above: Expected: 07/13/2024, Expires: Start: 07-13-2024 End: 10-12-2024 MISC SEND OUT TST 1 MISC SEND OUT TST 1 Lab Routine Gastroparesis POTS (postural orthostatic tachycardia syndrome) Chronic fatigue syndrome Fever in other diseases Expected: 07/13/2024, Expires: 10/12/2024 [facility] Comment on above: Expected: 07/13/2024, Expires: Start: 07-13-2024 End: 07-13-2025 Mitochondria Ab [Presence] in Serum by Immunofluorescence MITOCHONDRIAL M2 IGG SERUM Lab Routine Gastroparesis POTS (postural orthostatic tachycardia syndrome) Chronic fatigue syndrome Expected: 07/13/2024, Expires: 07/13/2025 [facility] Comment on above: Expected: 07/13/2024, Expires: Start: 07-13-2024 End: 07-13-2025 Rheumatoid factor [Units/volume] in Serum or Plasma [facility] Comment on above: Expected: 07/13/2024, Expires: Start: 07-13-2024 End: 07-13-2025 THYROID PEROXIDASE ANTIBODY [facility] Comment on above: Expected: 07/13/2024, Expires: Start: 07-13-2024 End: 07-13-2024 Patient encounter procedure 07/13/2024 8:00 AM EST Office Visit [facility] 1 [facility] 3rd [place] [address] Darcie Schmitz MD 1 [place] [address] GB [facility] Comment on above: GB Start: 05-26-2024 End: 08-25-2024 Basic metabolic 2000 panel - Serum or Plasma BASIC METABOLIC PANEL Lab Routine Leg cramps Expected: 05/26/2024, Expires: 08/25/2024 [facility] Work Phone: Comment on above: Expected: 05/26/2024, Expires: 5 Start: 05-26-2024 End: 08-25-2024 Gastrin [Mass/volume] in Serum or Plasma GASTRIN BLD Lab Routine Elevated gastrin level Expected: 05/26/2024, Expires: 08/25/2024 [facility] Comment on above: Expected: 05/26/2024, Expires: 5 Start: 05-26-2024 End: 08-25-2024 Magnesium [Mass/volume] in Serum or Plasma MAGNESIUM Lab Routine Leg cramps Expected: 05/26/2024, Expires: 08/25/2024 [facility] Comment on above: Expected: 05/26/2024, Expires: 5 Start: 05-26-2024 End: 05-26-2024 Patient encounter procedure 05/26/2024 10:00 AM EST Office Visit Gastroenterology [address] [address] Bernie Martines MD [address] [place] [address] 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 Start: 05-14-2024 End: 05-14-2024 Follow-up encounter 05/14/2024 1:30 PM EST [facility] [address] [place] [address] Zoran Julio APRN.CORRECTIONAL PROBATION OFFICER [address] [facility] [id number] [place] [address] follow up Neurology Comment on above: follow up Start: 05-04-2024 End: 05-04-2024 Patient encounter procedure 05/04/2024 1:00 PM EDT Appointment Gastroenterology [address] [phone] Mary Desai MD [address] [place] [address] Aphthous ulcer of mouth [K12.0] Gastroenterology Comment on above: Aphthous ulcer of mouth [K12.0] Start: 04-15-2024 End: 04-15-2024 ambulatory 04/15/2024 12:45 PM EDT Procedure Gastroenterology [address] [address] Amarilis Hamm MD [address] [place], [place] [id number] CAPSULE READ Gastroenterology Comment on above: CAPSULE READ Start: 04-13-2024 End: 04-13-2024 Patient encounter procedure Molecular Imaging Comment on above: NM PET/CT NEUROENDOCRINE WHOLE BODY IMAG ING Start: 04-09-2024 End: 04-09-2024 Patient encounter procedure 04/09/2024 8:30 AM EDT Appointment [facility] [place] [address] Dustin Tamayo DO [facility] [address] [place] [address] Gastroparesis [facility] Comment on above: Gastroparesis Start: 04-08-2024 End: 04-08-2024 Anesthesia consultation 04/08/2024 11:59 PM EDT Anesthesia Event [facility] [place] [address] Eileen Jones, CATALYST UNIT OPERATOR.POPULATION HEALTH COACH [address] [place] [address] [facility] Start: 04-08-2024 End: 04-08-2024 Follow-up encounter 04/08/2024 9:00 AM EDT [facility] Neurology [address] [place] [address] Zoran Julio APRN.CORRECTIONAL PROBATION OFFICER [address] [facility] [id number] [place] [address] follow up Neurology Comment on above: follow up Start: 04-08-2024 End: 04-08-2024 ambulatory 04/08/2024 7:30 AM EDT [facility] [address] [facility] [address] [place] [address] [address]in [address]ayo DO [address] [place] [address] gp f/u Gastroenterology Comment on above: gp f/u Start: 04-05-2024 End: 04-05-2024 ambulatory 04/05/2024 12:30 PM EDT [facility] Gynecology [address] [place] [address] Nurys Tovar MD [address] [place] [address] POST OP 4-6 WEEKS Gynecology Comment on above: POST OP 4-6 WEEKS Start: 03-29-2024 End: 03-29-2024 ambulatory 03/29/2024 7:40 AM EDT [facility] [address] [place] [address] [address]in Tamayo DO [address] [place] [address] gp f/u Gastroenterology Comment on above: gp f/u Start: 03-24-2024 End: 03-24-2024 Anesthesia consultation 03/24/2024 9:00 AM EDT PAT Pre Anesthesia [address] [facility] [address] [place] [address] - [phone] Pre Anesthesia Comment on above: VV - [phone] Start: 03-22-2024 End: 03-22-2024 ambulatory Gynecology Comment on above: POST OP 2 WEEKS Arrived Start: 03-17-2024 End: 03-17-2024 Patient encounter procedure 03/17/2024 11:30 AM EDT Office Visit Gynecology [address] [place] [address] May Frias APRN.CORRECTIONAL PROBATION OFFICER [address] [place] [address] OK BY NEERU FRIAS THIS TIME SLOT & DATE ...POST OP Gynecology Comment on above: OK BY NEERU FRIAS THIS TIME SLOT & DATE ...POST OP Start: 03-09-2024 End: 03-09-2024 Admission to same day surgery center 03/09/2024 2:45 PM EDT - 03/09/2024 5:15 PM EDT Surgery Admitting [address] [place] [address] Abi Teixeira DO [address] [place] [address] LAPAROSCOPIC SALPINGECTOMY Admitting Comment on above: LAPAROSCOPIC SALPINGECTOMY Start: 03-09-2024 End: 03-09-2024 Laparoscopy w/rmvl adnexal structures LAPAROSCOPIC SALPINGECTOMY Unwanted fertility 03/09/2024 2:45 PM EDT [facility] Start: 03-09-2024 Subsequent hospital visit by physician 03/09/2024 2:45 PM EDT Hospital Encounter Admitting [address] [place] [address] Abi Teixeira DO [address] [place] [address] Unwanted fertility [Z30.09] Admitting Comment on above: Unwanted fertility [Z30.09] Start: 03-09-2024 End: 03-09-2024 Admission to same day surgery center 03/09/2024 11:15 AM EDT - 03/09/2024 1:45 PM EDT Surgery Admitting [address] [place] [address] Abi Teixeira DO [address] [place] [address] LAPAROSCOPIC SALPINGECTOMY Admitting Comment on above: LAPAROSCOPIC SALPINGECTOMY Start: 03-09-2024 End: 03-09-2024 Laparoscopy w/rmvl adnexal structures LAPAROSCOPIC SALPINGECTOMY Unwanted fertility 03/09/2024 11:15 AM EDT [facility] Start: 03-09-2024 Subsequent hospital visit by physician 03/09/2024 11:15 AM EDT Hospital Encounter Admitting [address] [place] [address] Abi Teixeira DO [address] [place] [address] Unwanted fertility [Z30.09] Admitting Comment on above: Unwanted fertility [Z30.09] Start: 03-07-2024 Covid-19 Vaccine ( season) Covid-19 Vaccine ( season) [facility] Start: 03-07-2024 Covid-19 Vaccine ( season) Covid-19 Vaccine ( season) [facility] Start: 03-07-2024 Influenza vaccination Influ[facility] (#[facility]) [facility] Start: 03-04-2024 End: 03-04-2024 Anesthesia consultation 03/04/2024 1:00 PM EDT PAT Pre Anesthesia [address] [place] [address] 2, Pacc [place] [address] [place] [address] PRE OP-PATIENT NEED LABS Pre Anesthesia Comment on above: PRE OP-PATIENT NEED LABS Start: 03-04-2024 End: 03-04-2024 ambulatory 03/04/2024 9:00 AM EDT [facility] Gynecology [address] [address] Top Spotter, Nurse [address] [place] [address] Educational circumstances (Primary Dx) Gynecology Comment on above: Educational circumstances (Primary Dx) Start: 03-02-2024 End: 03-02-2024 Patient encounter procedure 03/02/2024 3:30 PM EDT Office Visit [facility] 1 [facility] [address] [place] [address] Lisy Rodriguez MD 1 [facility] [address] [place], [place] [id number] Gallbladder [facility] Comment on above: Gallbladder Start: 03-02-2024 End: 06-01-2024 CBC panel - Blood by Automated count COMPLETE BLOOD COUNT Lab Routine Preoperative examination Expected: 03/02/2024 (Approximate), Expires: 06/01/2024 [facility] Comment on above: Expected: 03/02/2024 (Approximate), Expi res: 06/01/2024 Start: 03-02-2024 End: 06-01-2024 TYPE AND SCREEN,30 DAY TYPE AND SCREEN,30 DAY Blood Bank Routine Preoperative examination Expected: 03/02/2024 (Approximate), Expires: 06/01/2024 [facility] Work Phone: Comment on above: Expected: 03/02/2024 (Approximate), Expi res: 06/01/2024 Start: 03-01-2024 End: 05-31-2024 ACETYLCHOLINE REC BINDING AB [facility] Comment on above: Expected: 03/01/2024, Expires: Start: 03-01-2024 End: 05-31-2024 AMINO ACIDS, PLASMA W/ CONSULTATION [facility] Comment on above: Expected: 03/01/2024, Expires: Start: 03-01-2024 End: 05-31-2024 CARNITINE FREE AND TOTAL, PLASMA [facility] Comment on above: Expected: 03/01/2024, Expires: Start: 03-01-2024 End: 05-31-2024 CYTOKINE PANEL 13, SERUM [facility] Comment on above: Expected: 03/01/2024, Expires: Start: 03-01-2024 End: 05-31-2024 ESTROGEN FRACTION BL [facility] Comment on above: Expected: 03/01/2024, Expires: Start: 03-01-2024 End: 05-31-2024 Glutamate decarboxylase 65 Ab [Units/volume] in Serum [facility] Comment on above: Expected: 03/01/2024, Expires: Start: 03-01-2024 End: 05-31-2024 Lactate dehydrogenase [Enzymatic activity/volume] in Serum or Plasma [facility] Work Phone: Comment on above: Expected: 03/01/2024, Expires: Start: 03-01-2024 End: 05-31-2024 ORGANIC ACIDS UR, QUANT W/CONSULTATION [facility] Comment on above: Expected: 03/01/2024, Expires: Start: 03-01-2024 End: 05-31-2024 PYRUVATE+LACTATE [facility] Comment on above: Expected: 03/01/2024, Expires: Start: 03-01-2024 End: 05-31-2024 Thyroxine (T4) free [Mass/volume] in Serum or Plasma [facility] Comment on above: Expected: 03/01/2024, Expires: Start: 03-01-2024 End: 05-31-2024 VOLTAGE GATED CA IGG [facility] Comment on above: Expected: 03/01/2024, Expires: Start: 03-01-2024 End: 05-31-2024 Voltage-gated potassium channel Ab [Moles/volume] in Serum [facility] Comment on above: Expected: 03/01/2024, Expires: Start: 03-01-2024 End: 03-01-2024 Patient encounter procedure Gastroenterology Comment on above: egg New gp consult Start: 02-27-2024 End: 02-27-2024 Patient encounter procedure 02/27/2024 11:30 AM EDT [facility] Obstetrics/Gynecology [address] [place] [address] Abi Teixeira DO [address] [place] [address] Consult/ Request for sterilization [Z30.2] Obstetrics/Gynecology Comment on above: Consult/ Request for sterilization [Z30. 2] Start: 02-19-2024 End: 05-20-2024 Gastrin [Mass/volume] in Serum or Plasma GASTRIN BLD Lab Routine Aphthous ulcer of mouth Gastritis without bleeding, unspecified chronicity, unspecified gastritis type Elevated gastrin level Expected: 02/19/2024, Expires: 05/20/2024 [facility] Comment on above: Expected: 02/19/2024, Expires: Start: 02-11-2024 End: 02-11-2024 Patient encounter procedure 02/11/2024 10:20 AM EDT Office Visit Gastroenterology [address] [address] Bernie Martines MD [address] [place] [address] 3 month f/u Gastroenterology Comment on above: 3 month f/u Start: 12-09-2023 End: 12-09-2023 Patient encounter procedure OB/Gynecology Comment on above: Consult to MFM Consult to MFM- prec onceptual counseling. Arriving at 2:40 Consult to MFM- prec onceptual counseling. Moved to 12 per MH request Start: 12-08-2023 End: 12-08-2023 Follow-up encounter 12/08/2023 8:30 AM EDT [facility] Gastroenterology [address] [place] [id number] follow up gastritis Gastroenterology Comment on above: follow up gastritis Start: 11-29-2023 ANNUAL PCP TEAM CHRONIC DISEASE VISIT ANNUAL PCP TEAM CHRONIC DISEASE VISIT [facility] Start: 11-21-2023 ASTHMA ACTION PLAN ASTHMA ACTION PLAN [facility] Start: 11-21-2023 End: 11-21-2023 Patient encounter procedure 11/21/2023 7:30 AM EDT Appointment Nuclear Medicine [address] [place] [address] Nausea [R11.0] - PLEASE PROVIDE ENSURE IF NECESSARY, PT IS HAS GLUTEN INTOLERANCE, NO ALLERGY TO EGGS Nuclear Medicine Comment on above: Nausea [R11.0] - PLEASE PROVIDE ENSURE I F NECESSARY, PT IS HAS GLUTEN INTOLERANCE, NO ALLERGY TO EGGS Start: 11-18-2023 End: 11-18-2023 Patient encounter procedure 11/18/2023 9:00 AM EDT Appointment Radiology [address] [place] [address] Epigastric pain [R10.13] Radiology Comment on above: Epigastric pain [R10.13] Start: 11-14-2023 End: 11-14-2023 Patient encounter procedure 11/14/2023 8:30 AM EDT Office Visit OB/Gynecology [address] [place] [address] Lizbet Rider MD [address] [place] [address] Annual OB/Gynecology Comment on above: Annual Start: 11-12-2023 End: 02-11-2024 Cortisol [Mass/volume] in Serum or Plasma CORTISOL, SERUM Lab Routine Epigastric pain Expected: 11/12/2023, Expires: 02/11/2024 [facility] Comment on above: Expected: 11/12/2023, Expires: 4 Start: 11-12-2023 End: 02-11-2024 Gastrin [Mass/volume] in Serum or Plasma GASTRIN BLD Lab Routine Epigastric pain Expected: 11/12/2023, Expires: 02/11/2024 [facility] Comment on above: Expected: 11/12/2023, Expires: 4 Start: 11-01-2023 ANNUAL PCP TEAM CHRONIC DISEASE VISIT ANNUAL PCP TEAM CHRONIC DISEASE VISIT [facility] Start: 09-07-2023 Screening for malignant neoplasm of cervix [facility] Start: 08-29-2023 ANNUAL PCP TEAM CHRONIC DISEASE VISIT ANNUAL PCP TEAM CHRONIC DISEASE VISIT [facility] Start: 08-28-2023 [facility] Start: 07-07-2023 Depression Assessment Depression Assessment [facility] Start: 06-09-2023 [facility] Start: 03-25-2023 ANNUAL PCP TEAM CHRONIC DISEASE VISIT ANNUAL PCP TEAM CHRONIC DISEASE VISIT [facility] Start: 03-07-2023 Covid-19 Vaccine ( season) Covid-19 Vaccine ( season) [facility] Start: 03-07-2023 Influenza vaccination INFLUENZA (#1) [facility] Start: 02-09-2023 Adult depression screening assessment DEPRESSION SCREENING [facility] Start: 12-30-2022 Adult depression screening assessment DEPRESSION SCREENING [facility] Start: 10-10-2022 ANNUAL PCP TEAM CHRONIC DISEASE VISIT ANNUAL PCP TEAM CHRONIC DISEASE VISIT [facility] Start: 10-08-2022 ANNUAL PCP TEAM CHRONIC DISEASE VISIT ANNUAL PCP TEAM CHRONIC DISEASE VISIT [facility] Start: 10-03-2022 ANNUAL PCP TEAM CHRONIC DISEASE VISIT ANNUAL PCP TEAM CHRONIC DISEASE VISIT [facility] Start: 10-01-2022 Adult depression screening assessment DEPRESSION SCREENING [facility] Start: 10-01-2022 ANNUAL PCP TEAM CHRONIC DISEASE VISIT ANNUAL PCP TEAM CHRONIC DISEASE VISIT [facility] Start: 10-01-2022 ASTHMA CONTROL TEST ASTHMA CONTROL TEST [facility] Start: 08-27-2022 ANNUAL PCP TEAM CHRONIC DISEASE VISIT ANNUAL PCP TEAM CHRONIC DISEASE VISIT [facility] Start: 07-07-2022 DEPRESSION ASSESSMENT DEPRESSION ASSESSMENT [facility] Start: 03-07-2022 Influenza vaccination INFLUENZA (#1) [facility] Start: 01-14-2022 End: 03-16-2022 aPTT in Platelet poor plasma by Coagulation assay [facility] Work Phone: Comment on above: Expected: 01/14/2022, Expires: 2 Start: 01-14-2022 End: 03-16-2022 CBC W Auto Differential panel - Blood [facility] Work Phone: Comment on above: Expected: 01/14/2022, Expires: 2 Start: 01-14-2022 End: 03-16-2022 PT panel - Platelet poor plasma by Coagulation assay [facility] Work Phone: Comment on above: Expected: 01/14/2022, Expires: 2 Start: 11-26-2021 End: 12-10-2021 Influenza virus A and B RNA and SARS-CoV-2 (COVID-19) N gene panel - Respiratory specimen by MAMIE with probe detection COVID WITH FLUA+B, ROUTINE Microbiology Routine Flu-like symptoms Suspected COVID-19 virus infection Expected: 11/26/2021, Expires: 12/10/2021 [facility] Work Phone: Comment on above: Expected: 11/26/2021, Expires: 2 Start: 10-01-2021 End: 12-01-2021 LIPID PANEL BASIC LIPID PANEL BASIC Lab Routine Encounter for screening for lipoid disorders Expected: 10/01/2021, Expires: 12/01/2021 [facility] Work Phone: Comment on above: Expected: 10/01/2021, Expires: 2 Start: 09-12-2021 Adult depression screening assessment DEPRESSION SCREENING [facility] Start: 2021 Pneumococcal vaccination Pneumococcal Vaccine (1 of 2 - PCV) [facility] Start: 2021 Shingrix Vaccine (1 of 2) Shingrix Vaccine (1 of 2) [facility] Start: 07-07-2021 DEPRESSION ASSESSMENT DEPRESSION ASSESSMENT [facility] Start: 03-23-2021 COVID-19 VACCINE (3 - Booster for Pfizer series) COVID-19 VACCINE (3 - Booster for Pfizer series) [facility] Start: 12-16-2020 COVID-19 VACCINE (3 - Booster for Pfizer series) COVID-19 VACCINE (3 - Booster for Pfizer series) [facility] Start: 12-16-2020 COVID-19 VACCINE (3 - Pfizer series) COVID-19 VACCINE (3 - Pfizer series) [facility] Start: 11-18-2020 Covid-19 Vaccine (3 - Pfizer risk series) Covid-19 Vaccine (3 - Pfizer risk series) [facility] Start: 2020 Anxiety Screening Anxiety Screening [facility] Start: 2020 CHLAMYDIA SCREENING (18-24) CHLAMYDIA SCREENING (18-24) [facility] Start: 2020 Depression Screening Depression Screening [facility] Start: 2020 GC (GONORRHEA) SCREENING (18-24) GC (GONORRHEA) SCREENING (18-24) [facility] Start: 2020 HEPATITIS C SCREENING HEPATITIS C SCREENING [facility] Start: 2020 Hepatitis C screening Hepatitis C Screening [facility] Start: 2020 HIV SCREENING HIV SCREENING [facility] Start: 2020 HIV screening HIV Screening [facility] Start: 2020 Screening for Chlamydia trachomatis Chlamydia Screening (18-24) [facility] Start: 02-05-2019 End: 02-05-2019 Appointment Appointment [facility] Work Phone: Start: 02-05-2019 End: 02-05-2019 Radiologic examination foot 2 views [facility] Work Phone: Start: 2018 Meningococcal B Vaccine (1 of 2 - Standard) Meningococcal B Vaccine (1 of 2 - Standard) [facility] Start: 2018 Meningococcal B Vaccine: Consider Based On Risk (1 of 2 - Patient Seeks Protection) Meningococcal B Vaccine: Consider Based On Risk (1 of 2 - Patient Seeks Protection) [facility] Start: 2018 MENINGOCOCCAL B: Consider based on risk (1 of 2 - Patient Seeks Protection) MENINGOCOCCAL B: Consider based on risk (1 of 2 - Patient Seeks Protection) [facility] Start: 12-06-2017 ASTHMA CONTROL TEST ASTHMA CONTROL TEST [facility] Start: 2017 HPV Vaccine (1 - 3-dose series) HPV Vaccine (1 - 3-dose series) [facility] Start: 2016 PEDS TO ADULT TRANSITION ANNUAL ASSESSMENT PEDS TO ADULT TRANSITION ANNUAL ASSESSMENT [facility] Start: 2014 PEDS TO ADULT TRANSITION INITIAL DISCUSSION PEDS TO ADULT TRANSITION INITIAL DISCUSSION [facility] Start: 2013 HPV VACCINE (1 - 2-dose series) HPV VACCINE (1 - 2-dose series) [facility] Start: 2013 Screening for malignant neoplasm of cervix Cervical Cancer Screening [facility] Start: 2012 Meningococcal B Vaccine (1 of 4 - Increased Risk) Meningococcal B Vaccine (1 of 4 - Increased Risk) [facility] Start: 2012 Meningococcal B Vaccine (1 of 5 - Increased Risk) Meningococcal B Vaccine (1 of 5 - Increased Risk) [facility] Start: 2012 MENINGOCOCCAL B: Consider based on risk (1 of 2 - Risk Bexsero 2-dose series) MENINGOCOCCAL B: Consider based on risk (1 of 2 - Risk Bexsero 2-dose series) [facility] Start: 09-07-2011 HPV VACCINE (1 - 2-dose series) HPV VACCINE (1 - 2-dose series) [facility] Start: 2008 PNEUMOCOCCAL (1 - PCV) PNEUMOCOCCAL (1 - PCV) [facility] Start: 2008 Pneumococcal vaccination [facility] Start: 2004 ASTHMA ACTION PLAN ASTHMA ACTION PLAN [facility] 5-Hydroxyindoleaceta te [Mass/volume] in 24 hour Urine [facility] 5-Hydroxyindoleaceti c acid measurement [facility] Aldosterone [Mass/vo lume] in Serum or Plasma [facility] Aldosterone/Renin [R atio] in Plasma [facility] Beef IgE Ab [Units/v olume] in Serum [facility] End: 04-13-2025 CAPSULE ENDOSCOPY SMALL BOWEL CAPSULE ENDOSCOPY SMALL BOWEL Endoscopy Routine Crohn's disease of colon without complication (HCC) 1 Occurrences starting 04/13/2024 until 04/13/2025 [facility] Work Phone: Comment on above: 1 Occurrences starting 04/13/2024 until 04/13/2025 Chocolate IgE Ab [Units/volume] in Serum [facility] Codfish IgE Ab [Units/volume] in Serum [facility] [place] IgE Ab [Units/v olume] in Serum [facility] Corticotropin [Mass/volume] in Plasma [facility] Cow milk IgE Ab [Units/volume] in Serum [facility] End: 03-01-2025 EGD - THERAPEUTIC, EUS, OR TUBE INTERVENTIONS EGD - THERAPEUTIC, EUS, OR TUBE INTERVENTIONS Endoscopy Routine Gastroparesis IBD (inflammatory bowel disease) 1 Occurrences starting 03/01/2024 until 03/01/2025 [facility] Comment on above: 1 Occurrences starting 03/01/2024 until 03/01/2025 End: 01-12-2026 EGD - THERAPEUTIC, EUS, OR TUBE INTERVENTIONS EGD - THERAPEUTIC, EUS, OR TUBE INTERVENTIONS Endoscopy Routine Gastroparesis 1 Occurrences starting 01/13/2025 until 01/12/2026 [facility] Work Phone: Comment on above: 1 Occurrences starting 01/13/2025 until 01/12/2026 End: 03-04-2026 EGD - THERAPEUTIC, EUS, OR TUBE INTERVENTIONS EGD - THERAPEUTIC, EUS, OR TUBE INTERVENTIONS Endoscopy Routine Gastroparesis 1 Occurrences starting 03/04/2025 until 03/04/2026 [facility] Work Phone: Comment on above: 1 Occurrences starting 03/04/2025 until 03/04/2026 End: 02-18-2025 EGD DIAGNOSTIC EGD DIAGNOSTIC Endoscopy Routine Aphthous ulcer of mouth H. pylori infection 1 Occurrences starting 02/19/2024 until 02/18/2025 [facility] Comment on above: 1 Occurrences starting 02/19/2024 until 02/18/2025 Electrogastrography dx transcut w/provoctve tstg EGG (ELECTROGASTROGRAPHY) Procedures Routine Gastroparesis Ordered: 02/13/2024 [facility] Work Phone: Comment on above: Ordered: 02/13/2024 End: 02-18-2025 Flexible sigmoidoscopy study COLONOSCOPY DIAGNOSTIC Endoscopy Routine Aphthous ulcer of mouth 1 Occurrences starting 02/19/2024 until 02/18/2025 [facility] Comment on above: 1 Occurrences starting 02/19/2024 until 02/18/2025 Helicobacter pylori Ag [Presence] in Stool by Immunoassay HELICOBACTER PYLORI ANTIGEN BY EIA, STOOL Microbiology Routine Epigastric pain Ordered: 11/12/2023 [facility] Comment on above: Ordered: 11/12/2023 Helicobacter pylori Ag [Presence] in Stool by Immunoassay HELICOBACTER PYLORI ANTIGEN BY EIA, STOOL Microbiology Routine H. pylori infection Ordered: 02/19/2024 [facility] Work Phone: Comment on above: Ordered: 02/19/2024 Laparoscopy w/rmvl a dnexal structures LAPAROSCOPIC SALPINGECTOMY Unwanted fertility HL OR LIPID PANEL BASIC LIPID PANEL BA SIC Lab Routine Encounter for screening for lipoid disorders 10/02/2021 7:37 AM EDT [facility] Work Phone: End: 12-11-2024 NM Stomach Views for gastric emptying solid phase W radionuclide PO NM GASTRIC EMPTYING SOLID Radiology Routine 1 Occurrences starting 11/12/2023 until 12/11/2024 [facility] Work Phone: Comment on above: 1 Occurrences starting 11/12/2023 until 12/11/2024 Patient Education [facility] Work Phone: Patient referral [facility] Work Phone: Peanut IgE Ab [Units/volume] in Serum [facility] End: 04-21-2025 PET+CT Brain for tau protein NM PET/CT NEUROENDOCRINE WHOLE BODY IMAGING Radiology Routine Malignant carcinoid tumor, unspecified site (HCC) 1 Occurrences starting 03/22/2024 until 04/21/2025 [facility] Work Phone: Comment on above: 1 Occurrences starting 03/22/2024 until 04/21/2025 Pork IgE Ab [Units/v olume] in Serum [facility] Ppsv23 vaccine 2 yrs or older for subq/im use PNEUMOCOCCAL VACCINE, 23 VALENT (PNEUMOVAX 23) Immunization/Injection Routine Ordered: 12/06/2024 [facility] Work Phone: Comment on above: Ordered: 12/06/2024 Radionuclide gastric emptying study [facility] Renin [Enzymatic activity/volume] in Plasma [facility] [place] IgE Ab [Units/volume] in Serum [facility] Shrimp IgE Ab [Units/volume] in Serum [facility] Source specific culture [facility] Soybean IgE Ab [Units/volume] in Serum [facility] SURGICAL PATHOLOGY [facility] Work Phone: Comment on above: Release Upon Ordering for 1 Occurrences starting 04/09/2024, 1 completed SURGICAL PATHOLOGY [facility] Work Phone: Comment on above: Release Upon Ordering for 1 Occurrences starting 07/19/2024, 1 completed Tryptase [Mass/volum e] in Serum or Plasma [facility] Tuna IgE Ab [Units/v olume] in Serum [facility] Wheat IgE Ab [Units/volume] in Serum [facility] Whole Egg IgE Ab [Units/volume] in Serum [facility] End: 12-11-2024 XR Abdomen Supine and Upright XR ABDOMEN 2V ROUTINE SUPINE W UPRIGHT/DECUB/CTL Radiology Routine Epigastric pain 1 Occurrences starting 11/12/2023 until 12/11/2024 [facility] Comment on above: 1 Occurrences starting 11/12/2023 until 12/11/2024 XR Cervical spine 2 or 3 Views [facility] XR FOOT GENERAL 3V AP/LAT/OBL LEFT XR FOOT GENERAL 3V AP/LAT/OBL LEFT Radiology Routine Acquired mallet toe, right Bilateral foot pain Ordered: 10/10/2021 [facility] Work Phone: Comment on above: Ordered: 10/10/2021 XR FOOT GENERAL 3V AP/LAT/OBL RIGHT XR FOOT GENERAL 3V AP/LAT/OBL RIGHT Radiology Routine Acquired mallet toe, right Bilateral foot pain Ordered: 10/10/2021 [facility] Work Phone: Comment on above: Ordered: 10/10/2021 [facility] Immunizations Immunization Date Immunization Notes Care Provider Sara celestin 12-07-2024 pneumococcal polysaccharide vaccine, 23 valent Nurse Marcin Work Phone: [facility] 12-07-2024 tetanus toxoid, redu odilon diphtheria toxoid, and acellular pertussis vaccine, adsorbed Carly Callejas MD Work Phone: [facility] 04-26-2024 influenza, seasonal, injectable, preservative free Carly Callejas MD Work Phone: [facility] 04-26-2024 influenza virus vacc ine, unspecified formulation Ramesh Bertrand MD Work Phone: [facility] 04-24-2023 influenza, injectabl e, quadrivalent, preservative free Dr. Eileen Nair Work Phone: [facility] 04-24-2023 influenza virus vacc ine, unspecified formulation May Frias CATALYST UNIT OPERATOR.CORRECTIONAL PROBATION OFFICER Work Phone: [facility] 03-25-2022 influenza, injectabl e, quadrivalent, contains preservative Clifford Valenzuela DPM Work Phone: [facility] 03-25-2022 influenza, injectabl e, quadrivalent, preservative free Dr. Eileen Nair Work Phone: [facility] 10-08-2021 tuberculin skin test ; purified protein derivative solution, intradermal No Pcp CATALYST UNIT OPERATOR [facility] 10-01-2021 tuberculin skin test ; purified protein derivative solution, intradermal No Pcp CATALYST UNIT OPERATOR [facility] 05-12-2021 influenza, injectabl e, quadrivalent, contains preservative Clifford Valenzuela DPM Work Phone: [facility] 10-21-2020 COVID-19 vaccine, ag e 12+ yr (PFIZER-BIONTECH - PURPLE TOP) Clifford Valenzuela DPM Work Phone: [facility] 09-30-2020 COVID-19 vaccine, ag e 12+ yr (PFIZER-BIONTECH - PURPLE TOP) Clifford Valenzuela DPM Work Phone: [facility] 08-19-2020 varicella virus vaccine Edie Juarez CATALYST UNIT OPERATOR.CORRECTIONAL PROBATION OFFICER Work Phone: [facility] 05-19-2020 influenza, injectabl e, quadrivalent, contains preservative Clifford Valenzuela DPM Work Phone: [facility] Work Phone: 01-19-2020 meningococcal polysaccharide (groups A, C, Y and W-135) diphtheria toxoid conjugate vaccine (MCV4P) Clifford Valenzuela DPM Work Phone: [facility] 05-27-2019 influenza, injectabl e, quadrivalent, contains preservative Clifford Nicolas DPM Work Phone: [facility] Work Phone: 05-28-2016 meningococcal polysaccharide (groups A, C, Y and W-135) diphtheria toxoid conjugate vaccine (MCV4P) Clifford Rodriguezman DPM Work Phone: [facility] 04-30-2016 influenza, injectabl e, quadrivalent, contains preservative Clifford Rodriguezman DPM Work Phone: [facility] Work Phone: 01-20-2015 tetanus toxoid, redu odilon diphtheria toxoid, and acellular pertussis vaccine, adsorbed Clifford Nicolas DPM Work Phone: [facility] Work Phone: 05-04-2014 influenza, seasonal, injectable Clifford Rodriguezman DPM Work Phone: [facility] 05-16-2012 influenza virus vacc ine, unspecified formulation Clifford Valenzuela DPM Work Phone: [facility] 04-06-2011 influenza virus vacc ine, unspecified formulation Clifford Rodriguezman DPM Work Phone: [facility] 05-12-2010 influenza virus vacc ine, unspecified formulation Clifford Rodriguezman DPM Work Phone: [facility] 04-08-2009 influenza virus vacc ine, unspecified formulation Clifford Rodriguezman DPM Work Phone: [facility] Work Phone: 05-11-2008 influenza virus vacc ine, unspecified formulation Clifford Rodriguezman DPM Work Phone: [facility] Work Phone: 09-23-2007 diphtheria, tetanus toxoids and acellular pertussis vaccine Clifford Rodriguezman DPM Work Phone: [facility] Work Phone: 09-23-2007 measles, mumps and rubella virus vaccine Clifford Nicolas DPM Work Phone: [facility] Work Phone: 09-23-2007 poliovirus vaccine, inactivated Clifford Valenzuela DPM Work Phone: [facility] Work Phone: 05-06-2007 influenza virus vacc ine, unspecified formulation Clifford Valenzuela DPM Work Phone: [facility] Work Phone: 05-08-2006 influenza virus vacc ine, unspecified formulation Clifford Rodriguezman DPM Work Phone: [facility] Work Phone: 04-12-2004 pneumococcal conjuga te vaccine, 7 valent Clifford Valenzuela DPM Work Phone: [facility] Work Phone: 12-09-2003 diphtheria, tetanus toxoids and acellular pertussis vaccine Clifford Valenzuela DPM Work Phone: [facility] Work Phone: 12-09-2003 varicella virus vaccine Jord cesar Rodriguezman DPM Work Phone: [facility] Work Phone: 09-07-2003 haemophilus influenz ae type b vaccine, HbOC conjugate Clifford Nicolas DPM Work Phone: [facility] Work Phone: 09-07-2003 measles, mumps and rubella virus vaccine Clifford Rodriguezman DPM Work Phone: [facility] Work Phone: 06-14-2003 hepatitis B vaccine, pediatric or pediatric/adolescent dosage Clifford Valenzuela DPM Work Phone: [facility] Work Phone: 06-01-2003 influenza virus vacc ine, unspecified formulation Clifford Valenzuela DPM Work Phone: [facility] Work Phone: 05-02-2003 influenza virus vacc ine, unspecified formulation Clifford Valenzuela DPM Work Phone: [facility] Work Phone: 03-10-2003 diphtheria, tetanus toxoids and acellular pertussis vaccine Clifford Valenzuela DPM Work Phone: [facility] Work Phone: 03-10-2003 haemophilus influenz ae type b vaccine, HbOC conjugate Clifford Valenzuela DPM Work Phone: [facility] Work Phone: 03-10-2003 pneumococcal conjuga te vaccine, 7 valent Clifford Valenzuela DPM Work Phone: [facility] Work Phone: 03-10-2003 poliovirus vaccine, inactivated Clifford Valenzuela DPM Work Phone: [facility] Work Phone: 01-11-2003 diphtheria, tetanus toxoids and acellular pertussis vaccine Clifford Valenzuela DPM Work Phone: [facility] Work Phone: 01-11-2003 haemophilus influenz ae type b vaccine, HbOC conjugate Clifford Valenzuela DPM Work Phone: [facility] Work Phone: 01-11-2003 pneumococcal conjuga te vaccine, 7 valent Clifford Valenzuela DPM Work Phone: [facility] Work Phone: 01-11-2003 poliovirus vaccine, inactivated Clifford Valenzuela DPM Work Phone: [facility] Work Phone: 2002 diphtheria, tetanus toxoids and acellular pertussis vaccine Clifford Valenzuela DPM Work Phone: [facility] Work Phone: 2002 haemophilus influenz ae type b vaccine, HbOC conjugate Clifford Valenzuela DPM Work Phone: [facility] Work Phone: 2002 pneumococcal conjuga te vaccine, 7 valent Clifford Valenzuela DPM Work Phone: [facility] Work Phone: 2002 poliovirus vaccine, inactivated Clifford Valenzuela DPM Work Phone: [facility] Work Phone: 2002 hepatitis B vaccine, pediatric or pediatric/adolescent dosage Clifford Valenzuela DPM Work Phone: [facility] Work Phone: 2002 hepatitis B vaccine, pediatric or pediatric/adolescent dosage Clifford Valenzuela DPM Work Phone: [facility] Work Phone: Payers Date Payer Category Payer Self-pay [id number] 2023 Unknown [id number] 2022 Private Health Insurance [id number] 2022 Private Health Insurance [id number] 2018 Unknown DEANDRE ROMANO JEANNAOracio PPO [id number] 2018-Present [phone] [facility] [id number] [place] [address] PPO [id number] 1.2.840.410823.1.13.159.2. 7.3.673187.315 2016 Unknown [id number] 2011 Unknown 1.2.840.061197. 1.13.159.2. 7.3.142814.315 1977 Unknown [id number] 2.16.840.1.040292.3.579.2. 479 1977 Unknown [id number] 2.16.840.1.441631.3.579.2. 479 1977 Unknown [id number] 2.16.840.1.056916.3.579.2. 479 1977 Unknown [id number] 2.16.840.1.173974.3.579.2. 479 1977 Unknown [id number] 2..840.1.816033.3.579.2. 479 1976 Unknown [id number] 2.16.840.1.821005.3.579.2. 479 1976 Unknown [id number] 2..840.1.018539.3.579.2. 479 1976 Unknown [id number] 2.16.840.1.114676.3.579.2. 479 1976 Unknown [id number] 2.840.1.470110.3.579.2. 479 Unknown [id number] Unknown [id number] Unknown [id number] 2.840.1.463473.3.579.2. 462 Unknown [id number] 2.840.1.760653.3.579.2. 462 Unknown [id number] 2.840.1.690180.3.579.2. 462 Unknown [id number] 2.840.1.096803.3.579.2. 462 Unknown [id number] 2.840.1.585647.3.579.2. 462 Unknown [id number] 2.840.1.683202.3.579.2. 462 Unknown [id number] 2.840.1.017161.3.579.2. 462 Unknown [id number] 2.840.1.008690.3.579.2. 462 Unknown [id number] 2.840.1.119231.3.579.2. 462 Unknown [id number] 2.840.1.294745.3.579.2. 462 Unknown [id number] 2.840.1.043077.3.579.2. 462 Unknown [id number] 2.840.1.200168.3.579.2. 462 Unknown [id number] 2.16.840.1.694834.3.579.2. 462 Unknown [id number] 2.16.840.1.276870.3.579.2. 462 Unknown [id number] 2.16.840.1.094304.3.579.2. 462 Unknown [id number] 2.16.840.1.853525.3.579.2. 462 Unknown [id number] 2.16.840.1.306340.3.579.2. 462 Unknown [id number] 2.16.840.1.068816.3.579.2. 462 Unknown [id number] 2.16.840.1.674428.3.579.2. 462 Unknown [id number] 2.840.1.110297.3.579.2. 462 Unknown [id number] 2.840.1.453442.3.579.2. 462 Unknown [id number] 2.840.1.804863.3.579.2. 462 Unknown [id number] 2.840.1.848575.3.579.2. 462 Unknown [id number] 2.16840.1.820490.3.579.2. 462 Unknown [id number] 2.840.1.615021.3.579.2. 462 Unknown [id number] 2.16840.1.516253.3.579.2. 462 Unknown [id number] 2.16.840.1.846512.3.579.2. 462 Unknown [id number] 2.16.840.1.545138.3.579.2. 462 Unknown [id number] 2.16.840.1.291383.3.579.2. 462 Unknown [id number] 2.840.1.636519.3.579.2. 462 Unknown [id number] 2.16.840.1.697679.3.579.2. 462 Social History Date Type Detail Facility Start: 05-09-2021 End: 09-16-2023 Assertion Unknown if ever smoked [facility] Work Phone: Start: 08-29-2022 End: 02-28-2025 Tobacco smoking status NHIS Never smoked tobacco [facility] Start: 08-27-2021 End: 03-15-2025 Alcohol intake Current non-drinker of alcohol (finding) [facility] Start: 2000 Sex Assigned At Female [facility] Start: 09-15-2021 End: 09-25-2021 Exposure to SARS-CoV-2 (event) Unable to assess [facility] Start: 10-01-2021 History SDOH Alcohol Frequency 1 [facility] Start: 10-01-2021 History SDOH Alcohol Std Drinks 98 [facility] Start: 10-01-2021 History SDOH Social Connections Phone 5 [facility] Start: 10-01-2021 History SDOH Social Connections Get Together 4 [facility] Start: 10-01-2021 History SDOH Social Connections Buddhism 3 [facility] Start: 10-01-2021 History SDOH Social Connections Living 7 [facility] Start: 10-01-2021 History SDOH Physica l Activity MPS 6 [facility] Start: 10-01-2021 History SDOH Stress 2 [facility] Start: 09-21-2021 End: 06-05-2022 Exposure to SARS-CoV-2 (event) Not sure [facility] Start: 08-29-2022 Tobacco use and exposure Smokeless tobacco non-user [facility] Start: 10-01-2021 End: 05-26-2024 History of Social function [facility] Start: 10-01-2021 End: 05-26-2024 Social connection and isolation panel [facility] Do you belong to any clubs or organizations such as scientology groups, unions, fraternal or athletic groups, or school groups? Yes [facility] Are you now , , , , never or living with a partner? Never [facility] How often to you hav e a drink containing alcohol? Never [facility] Start: 06-07-2012 How many standard drinks containing alcohol do you have on a typical day? Patient refused [facility] Do you feel stress - tense, restless, nervous, or anxious, or unable to sleep at night because your mind is troubled all the time - these days [OSQ] Only a little [facility] (I/We) worried kennedyyvonne er (my/our) food would run out before (I/we) got money to buy more. Never true [facility] In the past 12 month s, was there a time when you were not able to pay the mortgage or rent on time? No [facility] Start: 05-10-2020 Gender identity Identifies as female gender (finding) [facility] Start: 05-10-2020 Sexual orientation Heterosexua l (finding) [facility] Start: 12-09-2023 Education 15 [facility] Start: 09-23-2024 Sex Female (finding) [facility] NEGATED: Highlighted rowStart: NINF History of tobacco use Passive smoker [facility] Medical Equipment Procedure Code Equipment Code Equipment Origin al Text Equipment Identifier Dates Mini Headless Sc rew 2.5mm X 40mm [id number] Start: 05-29-2022 Wire Abdullahi .035in 2 Trocar 5.5in Fixation - [id number] Start: 05-29-2022 Mini 2.5mm Heade d Cannulated Screw 40mm [id number] Start: 10-25-2022 Mini Headless Sc rew 2.5mm X 38mm [id number] Start: 05-29-2022 Mini Headed Scre w 2.5mm X 34mm [id number] Start: 10-25-2022 Capsule Video Pillcam Sb 3 Ex - [id number] Start: 04-09-2024 Goals Date Patient Goal Desired Activity /State Functional Status Date Assessment Result Facility 09-02-2024 Are you deaf, or do you have serious difficulty hearing No 09/02/2024 3:37 PM Tosin Ruiz RN [facility] 09-02-2024 Are you blind, or do you have serious difficulty seeing, even when wearing glasses No 09/02/2024 3:37 PM Tosin Ruiz RN [facility] 09-02-2024 Do you have serious difficulty walking or climbing stairs No 09/02/2024 3:37 PM Tosin Ruiz, YA No [facility] 09-02-2024 Do you have difficul ty dressing or bathing No 09/02/2024 3:37 PM Tosin Ruiz, YA No [facility] 09-02-2024 Because of a physica l, mental, or emotional condition, do you have difficulty doing errands alone such as visiting a physician's office or shopping No 09/02/2024 3:37 PM Tosin Ruiz, YA No [facility] 02-05-2024 Are you deaf, or do you have serious difficulty hearing No 02/05/2024 5:25 PM Doroteo Purvis RN No [facility] 02-05-2024 Are you blind, or do you have serious difficulty seeing, even when wearing glasses No 02/05/2024 5:25 PM Doroteo Purvis RN No [facility] 02-05-2024 Do you have serious difficulty walking or climbing stairs No 02/05/2024 5:25 PM Doroteo Purvis RN No [facility] 02-05-2024 Do you have difficul ty dressing or bathing No 02/05/2024 5:25 PM Doroteo Purvis RN No [facility] 02-05-2024 Because of a physica l, mental, or emotional condition, do you have difficulty doing errands alone such as visiting a physician's office or shopping No 02/05/2024 5:25 PM Doroteo Purvis RN No [facility] Mental Status Date Assessment Result Facility 12-22-2024 Cognitive function Voice/Name [facility] Work Phone: 12-08-2024 Cognitive function Voice/Name [facility] Work Phone: 09-02-2024 Because of a physica l, mental, or emotional condition, do you have serious difficulty concentrating, remembering, or making decisions No 09/02/2024 3:37 PM Tosin Ruiz RN No [facility] 02-05-2024 Because of a physica l, mental, or emotional condition, do you have serious difficulty concentrating, remembering, or making decisions No 02/05/2024 5:25 PM EDT Doroteo Velásquez, RN No [facility] 06-09-2023 Cognitive function Voice/Name [facility] Work Phone: Clinical Notes 04-24-2020 to 05-06-2025 Telephone Encounter - Kimberly Gonzalez RN - 03/22/2025 8:11 AM EDTTelephone Encounter - Kimberly Gonzalez RN - 03/22/2025 8:11 AM EDTOBrit Gomez, PT - 03/21/2025 6:02 PM EDTPatient Instructions Note Date & Type Note Facility 05-06-2025 Note [facility] 04-27-2025 Note [facility] 04-22-2025 Note [facility] 04-20-2025 Note [facility] 04-14-2025 Note [facility] 04-08-2025 Note [facility] 04-08-2025 Note [facility] 04-06-2025 Note [facility] 03-23-2025 Note HNO ID: [id number] Author: LEIDY FOX AA Service: Anesthesiology Author Type: Supervisor Area Type: Anesthesia Procedure Notes Filed: 03/23/2025 07:50 Note Text: ANESTHESIOLOGY PROCEDURE NOTE Airway General Information Procedure Start Time/Medication Administration: 03/23/2025 7:39 AM Procedure End Time: 03/23/2025 7:39 AM Patient location during procedure: OR Timeout Performed Pre-procedure: timeout performed Consent Obtained: Yes Patient 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, 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 Staffing Anesthesiologist: Adam Hyatt MD CAA: Leidy Fox AA Performed by: anesthesiologist Indications and Patient Condition Indications for airway management: anesthesia and airway protection Preoxygenated: yes anesthesia circuit Patient position: sniffing Method: rapid sequence Cricoid Pressure: Yes Final Airway Details Final airway type: endotracheal airwayFinal Endotracheal Airway: ETT Cuffed: yes Successful intubation technique: video laryngoscopy Devices used: Gibbons Endotracheal tube insertion site: oral Blade: Colt Blade size: #3 ETT size (mm): 7.0 Measured from: teeth Measurement (cm): 21 Placement verified by: chest auscultation and capnometry Cormack-Lehane Classification: grade I - full view of glottis Number of attempts at approach: 1 SIGNATURE: VENTURA Anton PATIENT NAME: Mikayla Bertrand DATE: March 23, 2025 TIME: 7:49 AM CSN: [id number] [facility] 03-23-2025 Note HNO ID: [id number] Author: AGUSTÍN ARAGON RN Service: ? Author Type: Registered Nurse Type: Nursing Progress Note Filed: 03/23/2025 06:36 Note Text: Pt is doing well and has her call light. [facility] 03-22-2025 Telephone encounter Note Please advise Kimberly Gonzalez RN March 22, 2025 8:22 AM [facility] 03-22-2025 Miscellaneous Notes Please advise Kimberly Gonzalez RN March 22, 2025 8:22 AM documented in this encounter [facility] 03-21-2025 Note [facility] 03-21-2025 History of Present illness Narrative Episode Visit Count: 5 Therapist That Will Accept/Oversee The Plan Of Care: Moody Lisa Start of Care Date: 01/26/25 Onset Date: 07/07/24 Patient Identified by Name and Date of : Yes [facility] PHYSICAL THERAPY TREATMENT NOTE ASSESSMENT: Mikayla Bertrand tolerated the session with fatigue and expected muscle soreness. She demonstrated difficulty with SL hip abduction marching due to fatigue. The patient will continue to benefit from ongoing skilled physical therapy to progress toward set goals. PLAN FOR NEXT VISIT: Continue with whole body strengthening SUBJECTIVE: Pt reports that she had a flare last week and did nto do anything for about 4 days. Pt states that she is feeling good today. Pain: Pain Pain Level: 2 Pain Location: Shoulder - Left, Shoulder - Right, Hip - Left, Hip - Right, Knee - Left, Knee - Right, Back OBJECTIVE MEASURES WITH LEVEL OF FUNCTION: TREATMENT: Therapeutic Exercise: 1: *Hip thrusts 3x10 2: SL hip abduction marching 3x10 BLE 3: Bridges on 55 cm physioball 3x10 4: Bent over T with 5#, 3x10 B (pt unable to complete prone due to not having a high enough surface at home , gave bent over as modification) 5: Bent over Y 3x10 (pt unable to complete prone due to not having a high enough surface at home , gave bent over as modification) 6: Bent over I with 5# 3x10 B (pt unable to complete prone due to not having a high enough surface at home , gave bent over as modification) 7: Hoist Stir the Pot 1 plate 2x10 CW and CCW 8: RDL with 5 # KB 2x10 to18 inch target Skilled Intervention: Patient was educated in proper exercise technique and purpose for exercises. Reviewed and educated patient on additions/changes for home exercise program as above (*). Skilled judgment was used in selection of appropriate interventions. Correct performance of therapeutic exercises was facilitated with verbal and visual cuing. Billing Therapeutic Exercise Treatment Minutes: 43 Skilled Treatment Time Minutes (timed and untimed codes): 43 Total Session Time (minutes): 43 Session Start Time : 1800 Session Stop Time : 1842 JOCE Rodríguez PT documented in this encounter [facility] 03-15-2025 History and physical note Images from the original note were not included. [facility] HISTORY AND PHYSICAL EXAMINATION SERVICE DATE: 03/15/2025 SERVICE TIME: 10:07 AM PRIMARY CARE PHYSICIAN: Carly Callejas MD Assessment Patient has the following medical conditions which may affect gage-operative course: 1. Gastroesophageal reflux disease, unspecified whether esophagitis present (K21.9) 2. Intractable nausea and vomiting (R11.2) 3. Gastroparesis (K31.84) 4. Chronic superficial gastritis without bleeding (K29.30) 5. Chronic abdominal pain (R10.9) - Chronic GERD, nausea, vomiting, and abdominal pain; managed with Pepcid BID and Zofran PRN. - Chronic superficial gastritis previously monitored by GI; prior EGD performed. - Gastroparesis with ongoing symptoms; scheduled for G-POEM procedure. - Continue Pepcid BID; Zofran PRN for nausea and vomiting. - Educated on pre-procedure dietary restrictions: full liquid diet for 3 days prior, clear liquids only the day before, and NPO after midnight before surgery except for a small sip of water. - Advised to avoid carbonated beverages. - No Linzess on day of procedure. - Follow-up with GI as scheduled. 6. PONV (postoperative nausea and vomiting) (R11.2) 7. Delayed emergence from anesthesia, subsequent encounter (T88.59XD) - History of delayed emergence from anesthesia. - Prefers Zofran ordered for PONV prophylaxis. 8. Chronic idiopathic constipation (K59.04) - Managed with Linzess. 9. 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 - Uses Ruconest for acute treatment of severe leg swelling. 10. 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 11. 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 - Reports chronic joint pain. 12. KHRIS positive (R76.8) - Low positive KHRIS and TOOL LAPPER HAND; repeat KHRIS negative. 13. POTS (postural orthostatic tachycardia syndrome) (G90.A) 14. Elevated blood pressure reading without diagnosis of hypertension (R03.0) - Managed with propranolol. - BP today 104/56. - Advised to continue propranolol on day of procedure. 15. 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 - Hold Concerta on day of procedure. 17. History of epilepsy (Z86.69) - Last seizure over 6 years ago; cleared by Neurology. - No longer on antiepileptic medication. 18. Liver hemangioma (D18.03) - Incidental finding on imaging in 2022 (3.8 x 2.8 cm); no current issues. ANESTHESIA FINDINGS: Intubation History: No history of difficult intubation. No abnormal airway history Significant Anesthesia Considerations: potential postop nausea/vomiting potential slow emergence Airway History: No history of difficult airway No abnormal airway history Morrow Activity Status Index: METS: Walk indoors, such as around the house (1.75 METs) Do light work around the house, such as dusting or washing dishes (2.70 METs) Take care of self; that is eating, dressing, bathing, using the toilet (2.75 METs) Walk a block or two on level ground (2.75 METs) Do moderate work around the house, such as vacuuming, sweeping floors, or carrying in groceries (3.50 METs) Do yardwork, such as raking leaves, weeding, or pushing a power mower (4.50 METs) Climb a flight of stairs or walk up a hill (5.50 METs) Participate in moderate recreational activites, such as golf, bowling, dancing, doubles tennis, or throwing a baseball or football (6.00 METs) Participate in strenuous sport, such as swimming, singles tennis, football, basketball, or skiing (7.50 METs) Do heavy work around the house, such as scrubbing floors, lifting or moving heavy furniture (8.00 METs) Run a short distance (8.00 METs) DASI Score: 52.95 Patient denies any chest pain or undue shortness of breath with the above physical activity. Clinical Frailty Scale: 3. Well, with treated comorbid disease STOP-Bang Score: Denies snoring loudly Denies feeling tired, fatigued, or sleepy during the daytime Has not been observed to stop breathing or choking/gasping during sleep Denies having high blood pressure BMI less than or equal to 35 kg/m^2 Patient 50 years old or younger Does not have a large neck Non-male patient STOP-Bang Score: 0 I - PHYSICAL EVALUATION AIRWAY Patient intubated: No. Tracheostomy tube not present Mallampati: II. TM distance: >3 FB. Neck ROM: full ROM without neurological symptoms. Mouth openin FB. Short neck: no. Thick neck: no DENTAL Dental findings: teeth intact. II - ANESTHESIA PLAN Anesthetic plan additional comments: *PACC/TCI - anesthesia choice. Informed Consent Prepared for Surgery: optimally prepared for surgery. CONSULTS: Patient does not require consults for optimization at this time Planned Anesthetic: anesthesia choice The Following Tests/Procedures Have Been Initiated: No orders of the defined types were placed in this encounter. REASON FOR VISIT: Mikayla Bertrand is a 24 year old female who is scheduled for * No surgery found * at the request of Dr. Anderson Barker for consultation. My final recommendation will be communicated back to the requesting physician by way of shared medical record or letter. Subjective The patient has the following: COVID-19 Immunization Status This patient has no relevant Health Maintenance data. CHIEF COMPLAINT: pre op HPI: Mikayla Bertrand is a 24-year-old female with a history of gastroparesis, presenting for a preoperative evaluation prior to a scheduled G-POEM procedure. Mikayla reports chronic nausea and emesis, which she manages with Zofran. She also experiences acid reflux, for which she takes Pepcid BID and occasionally Tums. She has a history of chronic superficial gastritis, previously monitored by GI, and has undergone an EGD. She also reports chronic abdominal pain, which is generalized and not specifically localized to the RUQ. She denies liver disease. REVIEW OF SYSTEMS: General: No weight loss, malaise or fevers. Neurological: + POTS + narcolepsy Negative for: delirium, dementia, headaches, impaired sensorium, peripheral neuropathy, seizures, TIA and strokes. Respiratory: Denies any shortness of breath, chest pain, wheezing, or cough. + normal spirometry in 2020 Negative for: asthma, bronchitis, COPD, current cough, bronchodilator used daily for the last 3 months, dyspnea, home oxygen, orthopnea, pneumonia within 6 weeks, tobacco use, URI < 2 weeks and obstructive sleep apnea. Cardiovascular: Denies any heart palpitations, edema, chest pain, shortness of breath, syncope, activity intolerance, or dizziness. + liver hemgioma Negative for: abdominal aortic aneurysm, AICD/PPM, angina, anticoagulation therapy, arrhythmia, atrial fibrillation, CAD, chest pain, CHF, congenital heart defect, DVT/PE, hyperlipidemia, hypertension, recent GA, murmur/valvular heart disease, PTCA, PVD, open heart surgery and valve surgery. GI: See HPI. : denies CKD Negative for: on dialysis, dysuria, flank pain, frequent urination, hematuria, renal failure and urinary tract infection. Endocrine: Negative for: diabetes mellitus, hyperthyroidism and hypothyroidism. Hematology: Negative for: anemia, bruises/bleeds easily, factor V Leiden, hemophilia, thrombocytopenia, von Willebrand disease, transfusion of at least 4 units within 72 hours prior to surgery and chronic anti-coagulation/platelet meds. Oncology: Negative for: CA metastasis, chemo within 30 days, disseminated cancer and radiotherapy within 90 days. Psych: No history of psychiatric symptoms or problems. Skin: Negative for lesions, rash and itching. Implanted Devices: No implanted devices. PAST MEDICAL HISTORY Diagnosis Date Acquired mallet toe of left foot Delayed emergence from anesthesia Drug allergy 04/24/2020 Epigastric pain 08/30/2024 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) off AEDs since 2017 GERD (gastroesophageal reflux disease) Helicobacter pylori gastritis 08/30/2024 Malnutrition of mild degree (HCC) 02/05/2024 Malnutrition of moderate degree (HCC) 09/19/2023 Mild intermittent asthma without complication (HCC) MT (mallet toe), right 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) PMH - PAST MEDICAL HISTORY OF seizure POTS (postural orthostatic tachycardia syndrome) Urticaria due to drug allergy 04/24/2020 PAST SURGICAL HISTORY Procedure Laterality Date DENTAL [...] TONSIL AND ADENOI UNDER AGE 12 02/12/2010 SALPINGECTOMY Bilateral FAMILY HISTORY Problem Relation Age of Onset Graves Disease Mother Heart Mother SVT Allergies Father Asthma Brother Allergies Maternal Grandmother Hypertension Maternal Grandfather Allergies Maternal Grandfather Heart Maternal Grandfather mat side/pat side Breast Cancer Paternal Grandmother No Known Problems Paternal Grandfather Anesthesia Problems No Family History Malig Hyperthermia No Family History SOCIAL HISTORY[1] Prior to Admission medications as of 03/15/25 0936 Medication Sig Last Dose Taking hydrOXYchloroQUINE (PLAQUENIL) 200 mg tablet Take 1 tablet by mouth once daily. Yes sucralfate (CARAFATE) 1 gram tablet Take 1 tablet by mouth two times a day. Start taking medication after procedure for [address] (PROTONIX) 40 mg tablet Take 1 tablet by mouth two times a day. Start taking medication after procedure for 4 weeks. Yes berotralstat 110 mg cap Take 110 mg by mouth once daily. Yes propranolol ER (INDERAL LA) 60 mg 24 hr capsule Take 1 capsule by mouth once daily. Yes linaCLOtide (LINZESS) 290 mcg capsule Take 1 capsule by mouth daily at 6 am. Take capsule on an empty stomach at least 30 minutes before a meal at the same time each day. Capsule should be swallowed whole. DO NOT chew or crush. Yes icatibant (FIRAZYR) 30 mg/3 mL injection Inject 3 mL subcutaneously three times a day as needed (for acute swelling episodes). Yes famotidine (PEPCID) 20 mg tablet Take 1 tablet by mouth two times a day. Yes potassium chloride SR (MICRO-K) 10 mEq CR capsule Take 10 mEq by mouth. Yes methylphenidate ER (CONCERTA) 18 mg biphasic tablet Take 1 tablet by mouth every morning for 30 days. Yes MULTIVITAMIN ORAL Take 1 tablet by mouth once daily. Yes No medication comments found. ALLERGIES Allergen Reactions Latex Hives, Swelling Contact allergy, hives Penicillins Rash Benadryl [Diphenhyd* Mental Status Change agitation Droperidol Other: See Comments akathesia Compazine [Prochlor* Intolerance Restlessness, agitation Gluten GI Upset Versed [Midazolam H* Mental Status Change Pulling out IV's, extremely confused and restless, getting on hands and knees Objective PHYSICAL EXAM: General: alert and oriented and healthy appearance. Pertinent negatives noted - not distressed. Skin: normal color, no rash or lesions. HEENT: EOM intact, pupils equal round and pupils reactive to light. Pertinent negatives noted - no carotid bruit. Cardiovascular: regular rate and rhythm, normal S1 and S2, no rub, murmurs, or gallop. Respiratory: normal breath sounds, no wheezes or crackles. No chest wall deformity or tenderness. Abdomen: bowel sounds present and soft. Pertinent negatives noted - not tender. Extremities: Positive for joint tenderness. Pertinent negatives noted - no cellulitis, no clubbing, no deformity, no edema, no joint swelling, no abnormal pulses, no ulcer, no vascular insufficiency and no varicose veins. Neurological: normal cognition and motor skills. Gait normal. No weakness or sensory deficit. PAIN ASSESSMENT: VITALS: BP 104/56 Pulse 92 Temp (Src) 98.1 (Temporal) Resp 12 Ht 5' 2 (1.58m) Wt 128 lb 12.8 oz (58.4kg) SpO2 98% LMP 03/14/2025 BMI 23.55 kg/(m^2). Diagnostic tests reviewed for today's visit: Lab Value Units Date High Low HB 14.3 g/dL 03/02/2025 15.5 11.5 HCT 41.4 % 03/02/2025 46.0 36.0 WBC 7.02 k/uL 03/02/2025 11.00 3.70 PLT 210 k/uL 03/02/2025 400 150 NA 139 mmol/L 01/10/2025 144 136 K 4.2 mmol/L 01/10/2025 5.1 3.7 GLUC 80 mg/dL 01/10/2025 99 74 BUN 13 mg/dL 01/10/2025 21 7 CREAT 0.69 mg/dL 01/10/2025 0.96 0.58 PTSEC 11.3 sec 11/04/2024 13.0 9.7 INR 1.0 no uni* 11/04/2024 1.3 0.9 APTT 29.8 sec 11/04/2024 32.4 23.0 ALT 19 U/L 01/10/2025 38 7 AST 20 U/L 01/10/2025 35 13 TBILI 0.2 mg/dL 01/10/2025 1.3 0.2 TSH No results within date range. Lab Value Units Date High Low HCGQT No results within date range. UHCG No results within date range. HCG, BODY* No results within date range. Lab Value Units Date High Low ABORHD No results within date range. ABSCREEN No results within date range. Hemoglobin A1C (%) Date Value 03/01/2024 4.9 09/20/2023 4.9 No results found for this or any previous visit (from the past 8760 hours). No results found for this or any previous visit (from the past 29286 hours). Instructions Given to Patient: Instructions located in the after visit summary. Patient given verbal and written preop instructions and voices comprehension and compliance. Recording using ambient AI software for draft documentation of the visit was discussed with the patient/authorized scheduling representative; all questions welcomed and answered. Patient/authorized scheduling representative agreed to proceed SIGNATURE: Sharron Feldman APRN.CNP PATIENT NAME: Mikayla Bertrand DATE: March 15, 2025 TIME: 9:37 AM PAGER/CONTACT #: [1] Social History Tobacco Use Smoking status: Never Passive exposure: Never Smokeless tobacco: Never Vaping Use Vaping status: Never Used Substance Use Topics Alcohol use: No Drug use: No [facility] 03-15-2025 History and physical note Images from the original note were not included. [facility] HISTORY AND PHYSICAL EXAMINATION SERVICE DATE: 03/15/2025 SERVICE TIME: 10:07 AM PRIMARY CARE PHYSICIAN: Carly Callejas MD Assessment Patient has the following medical conditions which may affect gage-operative course: 1. Gastroesophageal reflux disease, unspecified whether esophagitis present (K21.9) 2. Intractable nausea and vomiting (R11.2) 3. Gastroparesis (K31.84) 4. Chronic superficial gastritis without bleeding (K29.30) 5. Chronic abdominal pain (R10.9) - Chronic GERD, nausea, vomiting, and abdominal pain; managed with Pepcid BID and Zofran PRN. - Chronic superficial gastritis previously monitored by GI; prior EGD performed. - Gastroparesis with ongoing symptoms; scheduled for G-POEM procedure. - Continue Pepcid BID; Zofran PRN for nausea and vomiting. - Educated on pre-procedure dietary restrictions: full liquid diet for 3 days prior, clear liquids only the day before, and NPO after midnight before surgery except for a small sip of water. - Advised to avoid carbonated beverages. - No Linzess on day of procedure. - Follow-up with GI as scheduled. 6. PONV (postoperative nausea and vomiting) (R11.2) 7. Delayed emergence from anesthesia, subsequent encounter (T88.59XD) - History of delayed emergence from anesthesia. - Prefers Zofran ordered for PONV prophylaxis. 8. Chronic idiopathic constipation (K59.04) - Managed with Linzess. 9. 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 - Uses Ruconest for acute treatment of severe leg swelling. 10. 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 11. 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 - Reports chronic joint pain. 12. KHRIS positive (R76.8) - Low positive KHRIS and TOOL LAPPER HAND; repeat KHRIS negative. 13. POTS (postural orthostatic tachycardia syndrome) (G90.A) 14. Elevated blood pressure reading without diagnosis of hypertension (R03.0) - Managed with propranolol. - BP today 104/56. - Advised to continue propranolol on day of procedure. 15. 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 - Hold Concerta on day of procedure. 17. History of epilepsy (Z86.69) - Last seizure over 6 years ago; cleared by Neurology. - No longer on antiepileptic medication. 18. Liver hemangioma (D18.03) - Incidental finding on imaging in 2022 (3.8 x 2.8 cm); no current issues. ANESTHESIA FINDINGS: Intubation History: No history of difficult intubation. No abnormal airway history Significant Anesthesia Considerations: potential postop nausea/vomiting potential slow emergence Airway History: No history of difficult airway No abnormal airway history Morrow Activity Status Index: METS: Walk indoors, such as around the house (1.75 METs) Do light work around the house, such as dusting or washing dishes (2.70 METs) Take care of self; that is eating, dressing, bathing, using the toilet (2.75 METs) Walk a block or two on level ground (2.75 METs) Do moderate work around the house, such as vacuuming, sweeping floors, or carrying in groceries (3.50 METs) Do yardwork, such as raking leaves, weeding, or pushing a power mower (4.50 METs) Climb a flight of stairs or walk up a hill (5.50 METs) Participate in moderate recreational activites, such as golf, bowling, dancing, doubles tennis, or throwing a baseball or football (6.00 METs) Participate in strenuous sport, such as swimming, singles tennis, football, basketball, or skiing (7.50 METs) Do heavy work around the house, such as scrubbing floors, lifting or moving heavy furniture (8.00 METs) Run a short distance (8.00 METs) DASI Score: 52.95 Patient denies any chest pain or undue shortness of breath with the above physical activity. Clinical Frailty Scale: 3. Well, with treated comorbid disease STOP-Bang Score: Denies snoring loudly Denies feeling tired, fatigued, or sleepy during the daytime Has not been observed to stop breathing or choking/gasping during sleep Denies having high blood pressure BMI less than or equal to 35 kg/m^2 Patient 50 years old or younger Does not have a large neck Non-male patient STOP-Bang Score: 0 I - PHYSICAL EVALUATION AIRWAY Patient intubated: No. Tracheostomy tube not present Mallampati: II. TM distance: >3 FB. Neck ROM: full ROM without neurological symptoms. Mouth openin FB. Short neck: no. Thick neck: no DENTAL Dental findings: teeth intact. II - ANESTHESIA PLAN Anesthetic plan additional comments: *PACC/TCI - anesthesia choice. Informed Consent Prepared for Surgery: optimally prepared for surgery. CONSULTS: Patient does not require consults for optimization at this time Planned Anesthetic: anesthesia choice The Following Tests/Procedures Have Been Initiated: No orders of the defined types were placed in this encounter. REASON FOR VISIT: Mikayla Bertrand is a 24 year old female who is scheduled for * No surgery found * at the request of Dr. Anderson Barker for consultation. My final recommendation will be communicated back to the requesting physician by way of shared medical record or letter. Subjective The patient has the following: COVID-19 Immunization Status This patient has no relevant Health Maintenance data. CHIEF COMPLAINT: pre op HPI: Mikayla Bertrand is a 24-year-old female with a history of gastroparesis, presenting for a preoperative evaluation prior to a scheduled G-POEM procedure. Mikayla reports chronic nausea and emesis, which she manages with Zofran. She also experiences acid reflux, for which she takes Pepcid BID and occasionally Tums. She has a history of chronic superficial gastritis, previously monitored by GI, and has undergone an EGD. She also reports chronic abdominal pain, which is generalized and not specifically localized to the RUQ. She denies liver disease. REVIEW OF SYSTEMS: General: No weight loss, malaise or fevers. Neurological: + POTS + narcolepsy Negative for: delirium, dementia, headaches, impaired sensorium, peripheral neuropathy, seizures, TIA and strokes. Respiratory: Denies any shortness of breath, chest pain, wheezing, or cough. + normal spirometry in 2020 Negative for: asthma, bronchitis, COPD, current cough, bronchodilator used daily for the last 3 months, dyspnea, home oxygen, orthopnea, pneumonia within 6 weeks, tobacco use, URI < 2 weeks and obstructive sleep apnea. Cardiovascular: Denies any heart palpitations, edema, chest pain, shortness of breath, syncope, activity intolerance, or dizziness. + liver hemgioma Negative for: abdominal aortic aneurysm, AICD/PPM, angina, anticoagulation therapy, arrhythmia, atrial fibrillation, CAD, chest pain, CHF, congenital heart defect, DVT/PE, hyperlipidemia, hypertension, recent GA, murmur/valvular heart disease, PTCA, PVD, open heart surgery and valve surgery. GI: See HPI. : denies CKD Negative for: on dialysis, dysuria, flank pain, frequent urination, hematuria, renal failure and urinary tract infection. Endocrine: Negative for: diabetes mellitus, hyperthyroidism and hypothyroidism. Hematology: Negative for: anemia, bruises/bleeds easily, factor V Leiden, hemophilia, thrombocytopenia, von Willebrand disease, transfusion of at least 4 units within 72 hours prior to surgery and chronic anti-coagulation/platelet meds. Oncology: Negative for: CA metastasis, chemo within 30 days, disseminated cancer and radiotherapy within 90 days. Psych: No history of psychiatric symptoms or problems. Skin: Negative for lesions, rash and itching. Implanted Devices: No implanted devices. 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) PMH - PAST MEDICAL HISTORY OF seizure POTS (postural orthostatic tachycardia syndrome) Urticaria due to drug allergy 04/24/2020 PAST SURGICAL HISTORY Procedure Laterality Date DENTAL [...] TONSIL AND ADENOI UNDER AGE 14 02/12/2010 SALPINGECTOMY Bilateral FAMILY HISTORY Problem Relation Age of Onset Graves Disease Mother Heart Mother SVT Allergies Father Asthma Brother Allergies Maternal Grandmother Hypertension Maternal Grandfather Allergies Maternal Grandfather Heart Maternal Grandfather mat side/pat side Breast Cancer Paternal Grandmother No Known Problems Paternal Grandfather Anesthesia Problems No Family History Malig Hyperthermia No Family History SOCIAL HISTORY[1] Prior to Admission medications as of 03/15/25 0936 Medication Sig Last Dose Taking hydrOXYchloroQUINE (PLAQUENIL) 200 mg tablet Take 1 tablet by mouth once daily. Yes sucralfate (CARAFATE) 1 gram tablet Take 1 tablet by mouth two times a day. Start taking medication after procedure for [address] (PROTONIX) 40 mg tablet Take 1 tablet by mouth two times a day. Start taking medication after procedure for 4 weeks. Yes berotralstat 110 mg cap Take 110 mg by mouth once daily. Yes propranolol ER (INDERAL LA) 60 mg 24 hr capsule Take 1 capsule by mouth once daily. Yes linaCLOtide (LINZESS) 290 mcg capsule Take 1 capsule by mouth daily at 6 am. Take capsule on an empty stomach at least 30 minutes before a meal at the same time each day. Capsule should be swallowed whole. DO NOT chew or crush. Yes icatibant (FIRAZYR) 30 mg/3 mL injection Inject 3 mL subcutaneously three times a day as needed (for acute swelling episodes). Yes famotidine (PEPCID) 20 mg tablet Take 1 tablet by mouth two times a day. Yes potassium chloride SR (MICRO-K) 10 mEq CR capsule Take 10 mEq by mouth. Yes methylphenidate ER (CONCERTA) 18 mg biphasic tablet Take 1 tablet by mouth every morning for 30 days. Yes MULTIVITAMIN ORAL Take 1 tablet by mouth once daily. Yes No medication comments found. ALLERGIES Allergen Reactions Latex Hives, Swelling Contact allergy, hives Penicillins Rash Benadryl [Diphenhyd* Mental Status Change agitation Droperidol Other: See Comments akathesia Compazine [Prochlor* Intolerance Restlessness, agitation Gluten GI Upset Versed [Midazolam H* Mental Status Change Pulling out IV's, extremely confused and restless, getting on hands and knees Objective PHYSICAL EXAM: General: alert and oriented and healthy appearance. Pertinent negatives noted - not distressed. Skin: normal color, no rash or lesions. HEENT: EOM intact, pupils equal round and pupils reactive to light. Pertinent negatives noted - no carotid bruit. Cardiovascular: regular rate and rhythm, normal S1 and S2, no rub, murmurs, or gallop. Respiratory: normal breath sounds, no wheezes or crackles. No chest wall deformity or tenderness. Abdomen: bowel sounds present and soft. Pertinent negatives noted - not tender. Extremities: Positive for joint tenderness. Pertinent negatives noted - no cellulitis, no clubbing, no deformity, no edema, no joint swelling, no abnormal pulses, no ulcer, no vascular insufficiency and no varicose veins. Neurological: normal cognition and motor skills. Gait normal. No weakness or sensory deficit. PAIN ASSESSMENT: VITALS: BP 104/56 Pulse 92 Temp (Src) 98.1 (Temporal) Resp 12 Ht 5' 2 (1.58m) Wt 128 lb 12.8 oz (58.4kg) SpO2 98% LMP 03/14/2025 BMI 23.55 kg/(m^2). Diagnostic tests reviewed for today's visit: Lab Value Units Date High Low HB 14.3 g/dL 03/02/2025 15.5 11.5 HCT 41.4 % 03/02/2025 46.0 36.0 WBC 7.02 k/uL 03/02/2025 11.00 3.70 PLT 210 k/uL 03/02/2025 400 150 NA 139 mmol/L 01/10/2025 144 136 K 4.2 mmol/L 01/10/2025 5.1 3.7 GLUC 80 mg/dL 01/10/2025 99 74 BUN 13 mg/dL 01/10/2025 21 7 CREAT 0.69 mg/dL 01/10/2025 0.96 0.58 PTSEC 11.3 sec 11/04/2024 13.0 9.7 INR 1.0 no uni* 11/04/2024 1.3 0.9 APTT 29.8 sec 11/04/2024 32.4 23.0 ALT 19 U/L 01/10/2025 38 7 AST 20 U/L 01/10/2025 35 13 TBILI 0.2 mg/dL 01/10/2025 1.3 0.2 TSH No results within date range. Lab Value Units Date High Low HCGQT No results within date range. UHCG No results within date range. HCG, BODY* No results within date range. Lab Value Units Date High Low ABORHD No results within date range. ABSCREEN No results within date range. Hemoglobin A1C (%) Date Value 03/01/2024 4.9 09/20/2023 4.9 No results found for this or any previous visit (from the past 8760 hours). No results found for this or any previous visit (from the past 82101 hours). Instructions Given to Patient: Instructions located in the after visit summary. Patient given verbal and written preop instructions and voices comprehension and compliance. Recording using [employer] software for draft documentation of the visit was discussed with the patient/authorized scheduling representative; all questions welcomed and answered. Patient/authorized scheduling representative agreed to proceed SIGNATURE: Sharron Feldman APRN.CNP PATIENT NAME: Mikayla Bertrand DATE: March 15, 2025 TIME: 9:37 AM PAGER/CONTACT #: [1] Social History Tobacco Use Smoking status: Never Passive exposure: Never Smokeless tobacco: Never Vaping Use Vaping status: Never Used Substance Use Topics Alcohol use: No Drug use: No documented in this encounter [facility] 03-14-2025 Instructions Sharron Feldman APRN.CNP - 03/14/2025 1:41 PM EDT Images from the original note were not included. [facility] PATIENT PREOPERATIVE INSTRUCTIONS Anderson Barker DO has scheduled you for your procedure at this surgery center: [facility]: [phone] -- [facility], [facility] [address]. Please read below carefully for your personalized instructions. Arrival Time for Surgery: - The Surgery Center or hospital where you are having surgery will call the afternoon before surgery (or Friday for Friday surgery) with a scheduled arrival time. - If you have not heard by 4 pm, please contact the surgery center above. Dietary Restrictions: Days before procedure: Day 3 - full liquid diet Day 2 - full liquid diet Day 1 - CLEAR LIQUIDS ONLY. Nothing to eat or drink after midnight. Please stop tube feeds at midnight if you are on them. Medications: Unless instructed differently below, stay on all of your medications until your surgery. If you start any new medications after today's visit, please contact your surgeon. Pre-Surgery Med Instructions Medication Instructions hydrOXYchloroQUINE (PLAQUENIL) 200 mg tablet If you normally take this medication in the morning, take the morning of surgery. sucralfate (CARAFATE) 1 gram tablet Do not take the day of surgery pantoprazole DR (PROTONIX) 40 mg tablet If you normally take this medication in the morning, take the morning of surgery. berotralstat 110 mg cap Do not take the day of surgery propranolol ER (INDERAL LA) 60 mg 24 hr capsule If you normally take this medication in the morning, take the morning of surgery. linaCLOtide (LINZESS) 290 mcg capsule Do not take the day of surgery icatibant (FIRAZYR) 30 mg/3 mL injection Do not take the day of surgery famotidine (PEPCID) 20 mg tablet If you normally take this medication in the morning, take the morning of surgery. potassium chloride SR (MICRO-K) 10 mEq CR capsule Do not take the day of surgery methylphenidate ER (CONCERTA) 18 mg biphasic tablet Do not take the day of surgery MULTIVITAMIN ORAL Do not take the day of surgery Hold any vitamins the day of surgery Hold any herbal supplements 7 days before surgery If you are currently using a [id number] injectable or oral medication for diabetes or weight loss such as Dulaglutide (Marciano), Exenatide (Byetta, Bydureon), Liraglutide (Victoza, Saxenda), Semaglutide (Ozempic, Wegovy, Rybelsus), or Tirzepatide (Mounjaro), the medicine should be stopped at least 7 days before surgery. These medicines can cause food to remain in your stomach for a very long time and increase the risks from surgery and anesthesia. Not stopping the medication for a long enough time may result in your surgery being rescheduled. If you start any new medications after today's visit, please contact the surgeon's office. Blood Thinning Medications: - Stop NSAIDS (Ibuprofen, Advil, Aleve, Motrin, Celebrex, Mobic, etc.) 7 days before surgery, as directed by your surgeon. - Stop Aspirin 7 days before surgery, as directed by your surgeon. - Stop herbal supplements 7 days before surgery. - You may take Tylenol (Acetaminophen) or any of your pain medications that do not contain aspirin or NSAIDS as needed. Important Reminders: - If you use CPAP/BIPAP, bring the machine with you to the surgery center. - If you are prescribed inhalers for breathing, continue using them. -Please be sure to brush your teeth and you can use mouth wash or rinse your mouth if dry. - Candy, mints, and tobacco products are NOT permitted the morning of surgery. - Hearing aids, dentures and glasses may be worn the morning of surgery. - If you have dentures or partials, please have a case to place them in or leave at home day of surgery. - NO jewelry, body piercings, makeup, hairpins or contacts are to be worn the day of surgery. If you develop symptoms such as a fever, cold, or flu, or have other changes to your health within TWO DAYS of scheduled surgery or the morning of surgery, please contact the surgery center above. Personal Belongings: -Please have photo ID and insurance cards. -If you do not have a copy of advance directives on file with us, please bring a copy with you on the day of surgery. - Leave ALL valuables and money at home or with family members. Please be aware that emergency situations arise, which may delay or change your surgical time. If this happens, we will notify you as soon as possible and regret any inconvenience. If you already have an Advance Directive, please fax a copy to [phone] or email to for it to be added to your chart. If you do not have an Advance Directive, you can find the appropriate form and more information at [email or web address]. We recommend that you complete the Advance Directive form found on the website and bring it with you the day of your surgery. It can be witnessed and scanned into your chart that day. Sharron Feldman APRN.CORRECTIONAL PROBATION OFFICER documented in this encounter [facility] 03-11-2025 Telephone encounter Note Images from the original note were not included. Most recent Rheumatology visit: 01/19/2025 (with Yung Celeste) Last Bone Density on file: 07/26/2016 Not sure when HCQ was started and do not see an OCT in chart Rheumatology Care Team: None on file Recent Office Visits - This Specialty 01/19/2025 Fever, unspecified fever cause [facility] Yung Celeste MD 11/24/2024 Fever, unspecified fever cause [facility] Yung Celeste MD 11/01/2024 Fever, unspecified fever cause [facility] Yung Celeste MD Upcoming Rheumatology Appointments - Next 365 Days Visit Type Date Time Department [facility] 04/27/2025 8:30 AM [facility] Last Ophthalmology Check for Plaquenil (Hydroxychloroquine) Last OCT Macula Exam No resulted procedures found. Last Visual Field Exam No resulted procedures found. CBC: Latest Ref Rng & Units 01/10/2025 03/02/2025 CBC WBC 3.70 - 11.00 k/uL 6.55 7.02 Hemoglobin 11.5 - 15.5 g/dL 11.8 14.3 Hematocrit 36.0 - 46.0 % 36.6 41.4 Platelet Count 150 - 400 k/uL 173 210 Abs Neut (ANC) 1.45 - 7.50 k/uL 5.06 5.21 Abs Lymph 1.00 - 4.00 k/uL 0.97 1.25 Vitamin D: None on file in the last 6 months LFT: Latest Ref Rng & Units 11/04/2024 01/10/2025 CMP Sodium 136 - 144 mmol/L 141 139 Potassium 3.7 - 5.1 mmol/L 4.2 4.2 Chloride 98 - 107 mmol/L 104 105 CO2 22 - 30 mmol/L 26 23 Glucose 74 - 99 mg/dL 87 80 BUN 7 - 21 mg/dL 15 13 Creatinine 0.58 - 0.96 mg/dL 0.65 0.69 Calcium 8.5 - 10.2 mg/dL 9.6 9.0 AST 13 - 35 U/L 22 20 ALT 7 - 38 U/L 15 19 Alkaline Phosphatase 34 - 123 U/L 47 45 Hepatic Function: Creatinine: Latest Ref Rng & Units 11/04/2024 01/10/2025 Creatinine Creatinine 0.58 - 0.96 mg/dL 0.65 0.69 ESR/CRP: Latest Ref Rng & Units 11/04/2024 01/10/2025 ESR, WSR WSR 0 - 20 mm/hr 2 2 Latest Ref Rng & Units 11/04/2024 01/10/2025 CRP CRP <0.9 mg/dL <0.3 1.4 Uric Acid: None on file in the last 6 months Open Standing (Multiple Instance) Lab Orders None Open Future (Single Instance) Lab Orders Expected Expires Ordered COMPLETE BLOOD COUNT AND DIFFERENTIAL [SQCBCDIF] 01/19/25 04/20/25 01/19/25 Auth. provider: Yung Celeste MD Assoc. diagnoses: Fever, unspecified fever cause, Rash and nonspecific skin eruption, Pain in joint, multiple sites, Periodic fever syndrome (HCC), Periodic fever, aphthous stomatitis, pharyngitis, adenitis (PFAPA) syndrome (HCC) COMPREHENSIVE METABOLIC PANEL [SQCMP] 01/19/25 04/20/25 01/19/25 Auth. provider: Yung Celeste MD Assoc. diagnoses: Fever, unspecified fever cause, Rash and nonspecific skin eruption, Pain in joint, multiple sites, Periodic fever syndrome (HCC), Periodic fever, aphthous stomatitis, pharyngitis, adenitis (PFAPA) syndrome (HCC) SEDIMENTATION RATE, WESTERGREN [SQWSR] 01/19/25 04/20/25 01/19/25 Auth. provider: Yung Celeste MD Assoc. diagnoses: Fever, unspecified fever cause, Rash and nonspecific skin eruption, Pain in joint, multiple sites, Periodic fever syndrome (HCC), Periodic fever, aphthous stomatitis, pharyngitis, adenitis (PFAPA) syndrome (HCC) C-REACTIVE PROTEIN [SQCRP] 01/19/25 04/20/25 01/19/25 Auth. provider: Yung Celeste MD Assoc. diagnoses: Fever, unspecified fever cause, Rash and nonspecific skin eruption, Pain in joint, multiple sites, Periodic fever syndrome (HCC), Periodic fever, aphthous stomatitis, pharyngitis, adenitis (PFAPA) syndrome (HCC) FERRITIN [SQFERR] 01/19/25 04/20/25 01/19/25 Auth. provider: Yung Celeste MD Assoc. diagnoses: Fever, unspecified fever cause, Rash and nonspecific skin eruption, Pain in joint, multiple sites, Periodic fever syndrome (HCC), Periodic fever, aphthous stomatitis, pharyngitis, adenitis (PFAPA) syndrome (HCC) URINALYSIS, WITH MICROSCOPIC [SQUAWMIC] 01/19/25 04/20/25 01/19/25 Auth. provider: Yung Celeste MD Assoc. diagnoses: Fever, unspecified fever cause, Rash and nonspecific skin eruption, Pain in joint, multiple sites, Periodic fever syndrome (HCC), Periodic fever, aphthous stomatitis, pharyngitis, adenitis (PFAPA) syndrome (HCC) PROTEIN / CREATININE RATIO [SQPRATIO] 01/19/25 04/20/25 01/19/25 Auth. provider: Yung Celeste MD Assoc. diagnoses: Fever, unspecified fever cause, Rash and nonspecific skin eruption, Pain in joint, multiple sites, Periodic fever syndrome (HCC), Periodic fever, aphthous stomatitis, pharyngitis, adenitis (PFAPA) syndrome (HCC) [facility] 03-11-2025 Miscellaneous Notes Images from the original note were not included. Most recent Rheumatology visit: 01/19/2025 (with Yung Celeste) Last Bone Density on file: 07/26/2016 Not sure when HCQ was started and do not see an OCT in chart Rheumatology Care Team: None on file Recent Office Visits - This Specialty 01/19/2025 Fever, unspecified fever cause [facility] Yung Celeste MD 11/24/2024 Fever, unspecified fever cause [facility] Yung Celeste MD 11/01/2024 Fever, unspecified fever cause [facility] Yung Celeste MD Upcoming Rheumatology Appointments - Next 365 Days Visit Type Date Time Department [facility] 04/27/2025 8:30 AM [facility] Last Ophthalmology Check for Plaquenil (Hydroxychloroquine) Last OCT Macula Exam No resulted procedures found. Last Visual Field Exam No resulted procedures found. CBC: Latest Ref Rng & Units 01/10/2025 03/02/2025 CBC WBC 3.70 - 11.00 k/uL 6.55 7.02 Hemoglobin 11.5 - 15.5 g/dL 11.8 14.3 Hematocrit 36.0 - 46.0 % 36.6 41.4 Platelet Count 150 - 400 k/uL 173 210 Abs Neut (ANC) 1.45 - 7.50 k/uL 5.06 5.21 Abs Lymph 1.00 - 4.00 k/uL 0.97 1.25 Vitamin D: None on file in the last 6 months LFT: Latest Ref Rng & Units 11/04/2024 01/10/2025 CMP Sodium 136 - 144 mmol/L 141 139 Potassium 3.7 - 5.1 mmol/L 4.2 4.2 Chloride 98 - 107 mmol/L 104 105 CO2 22 - 30 mmol/L 26 23 Glucose 74 - 99 mg/dL 87 80 BUN 7 - 21 mg/dL 15 13 Creatinine 0.58 - 0.96 mg/dL 0.65 0.69 Calcium 8.5 - 10.2 mg/dL 9.6 9.0 AST 13 - 35 U/L 22 20 ALT 7 - 38 U/L 15 19 Alkaline Phosphatase 34 - 123 U/L 47 45 Hepatic Function: Creatinine: Latest Ref Rng & Units 11/04/2024 01/10/2025 Creatinine Creatinine 0.58 - 0.96 mg/dL 0.65 0.69 ESR/CRP: Latest Ref Rng & Units 11/04/2024 01/10/2025 ESR, WSR WSR 0 - 20 mm/hr 2 2 Latest Ref Rng & Units 11/04/2024 01/10/2025 CRP CRP <0.9 mg/dL <0.3 1.4 Uric Acid: None on file in the last 6 months Open Standing (Multiple Instance) Lab Orders None Open Future (Single Instance) Lab Orders Expected Expires Ordered COMPLETE BLOOD COUNT AND DIFFERENTIAL [SQCBCDIF] 01/19/25 04/20/25 01/19/25 Auth. provider: Yung Celeste MD Assoc. diagnoses: Fever, unspecified fever cause, Rash and nonspecific skin eruption, Pain in joint, multiple sites, Periodic fever syndrome (HCC), Periodic fever, aphthous stomatitis, pharyngitis, adenitis (PFAPA) syndrome (HCC) COMPREHENSIVE METABOLIC PANEL [SQCMP] 01/19/25 04/20/25 01/19/25 Auth. provider: Yung Celeste MD Assoc. diagnoses: Fever, unspecified fever cause, Rash and nonspecific skin eruption, Pain in joint, multiple sites, Periodic fever syndrome (HCC), Periodic fever, aphthous stomatitis, pharyngitis, adenitis (PFAPA) syndrome (HCC) SEDIMENTATION RATE, WESTERGREN [SQWSR] 01/19/25 04/20/25 01/19/25 Auth. provider: Yung Celeste MD Assoc. diagnoses: Fever, unspecified fever cause, Rash and nonspecific skin eruption, Pain in joint, multiple sites, Periodic fever syndrome (HCC), Periodic fever, aphthous stomatitis, pharyngitis, adenitis (PFAPA) syndrome (HCC) C-REACTIVE PROTEIN [SQCRP] 01/19/25 04/20/25 01/19/25 Auth. provider: Yung Celeste MD Assoc. diagnoses: Fever, unspecified fever cause, Rash and nonspecific skin eruption, Pain in joint, multiple sites, Periodic fever syndrome (HCC), Periodic fever, aphthous stomatitis, pharyngitis, adenitis (PFAPA) syndrome (HCC) FERRITIN [SQFERR] 01/19/25 04/20/25 01/19/25 Auth. provider: Yung Celeste MD Assoc. diagnoses: Fever, unspecified fever cause, Rash and nonspecific skin eruption, Pain in joint, multiple sites, Periodic fever syndrome (HCC), Periodic fever, aphthous stomatitis, pharyngitis, adenitis (PFAPA) syndrome (HCC) URINALYSIS, WITH MICROSCOPIC [SQUAWMIC] 01/19/25 04/20/25 01/19/25 Auth. provider: Yung Celeste MD Assoc. diagnoses: Fever, unspecified fever cause, Rash and nonspecific skin eruption, Pain in joint, multiple sites, Periodic fever syndrome (HCC), Periodic fever, aphthous stomatitis, pharyngitis, adenitis (PFAPA) syndrome (HCC) PROTEIN / CREATININE RATIO [SQPRATIO] 01/19/25 04/20/25 01/19/25 Auth. provider: Yung Celeste MD Assoc. diagnoses: Fever, unspecified fever cause, Rash and nonspecific skin eruption, Pain in joint, multiple sites, Periodic fever syndrome (HCC), Periodic fever, aphthous stomatitis, pharyngitis, adenitis (PFAPA) syndrome (HCC) documented in this encounter [facility] 03-09-2025 History of Present illness Narrative Images from the original note were not included. Hepatology Clinic Follow Up Visit NAME: Mikayla Bertrand CLINIC NO: [id number] REFERRING PHYSICIAN: Bernie Martines PRESENTING COMPLAINT: Patient presents with: New Patient: Elevated LFTs [R79.89] HPI: Mikayla Bertrand is a 24 year old female with PMHx of hepatic hemangioma, POTS, GERD, gastroparesis, epilepsy off antiseizure meds, positive antiparietal antibodies, chronic abdominal pain, multiple drug intolerances, here on follow up for elevated LFTs. Patient was last seen by Dr. Jaffe 10/2023 Here with her mother today At last visit: Ms. Blunt is a 23 year old year old female who presents with . 1- Hepatic hemangioma that has been stable over the past year. Patient reassured. This is NOT likely to be associated with any pain or any symptoms. I see no need for any additional work up. We can recheck in one year one last time to endure no growth. 2- RUQ abdominal pain. Likely at least partially musculoskeletal in nature. Discussed with patient and suggested conservative management for now. Plan is to follow up in one year. Interval hx: Admitted earlier 2024 for recurrent epigastric pain RFV is listed as elevated LFTs however she has had normal liver chemistries since 12/2022, prior mild elevations in 2022 Negative HBV serologies other than she's immune to HBV HCV AB negative +AMA 29.1 07/2024 +KHRIS 1:160 No thrombocytopenia INR 1.0 suggesting preserved liver function RUQ US 08/31 with normal liver morphology and known 6.4cm hemangioma EGD 01/2025 without signs of protal HTN No OTC meds Tylenol use once a day - 1-2 tablets Alcohol - none No illicit drug use No medication changes Chronic abdominal pain can come and go Denies current issues with ascites, HE, hematemesis, hematochezia, confusion, dark urine, amairani colored stool, dysphagia, odynophagia, change in bm. Remaining systems reviewed and are negative. FIB-4 Calculation: 0.48 at 03/02/2025 1:42 PM Calculated from: SGOT/AST: 20 U/L at 01/10/2025 12:24 PM SGPT/ALT: 19 U/L at 01/10/2025 12:24 PM Platelets: 210 k/uL at 03/02/2025 1:42 PM Age: 24 years REVIEW OF SYSTEMS GENERAL: No unexplained weight changes or fevers. RESPIRATORY: Negative for coughing, wheezing or significant dyspnea. CARDIOVASCULAR: Negative for chest pain or heart palpitations. GASTROINTESTINAL: SEE HPI. Current Outpatient Medications Medication Sig Dispense Refill sucralfate (CARAFATE) 1 gram tablet Take 1 tablet by mouth two times a day. Start taking medication after procedure for 4 weeks. [address] (PROTONIX) 40 mg tablet Take 1 tablet by mouth two times a day. Start taking medication after procedure for 4 weeks. 60 tablet 0 berotralstat 110 mg cap Take 110 mg by mouth once daily. propranolol ER (INDERAL LA) 60 mg 24 hr capsule Take 1 capsule by mouth once daily. 90 capsule 2 linaCLOtide (LINZESS) 290 mcg capsule Take 1 capsule by mouth daily at 6 am. Take capsule on an empty stomach at least 30 minutes before a meal at the same time each day. Capsule should be swallowed whole. DO NOT chew or crush. 30 capsule 5 hydrOXYchloroQUINE (PLAQUENIL) 200 mg tablet Take 1 tablet by mouth once daily. 30 tablet 2 icatibant (FIRAZYR) 30 mg/3 mL injection Inject 3 mL subcutaneously three times a day as needed (for acute swelling episodes). 9 mL 11 famotidine (PEPCID) 20 mg tablet Take 1 tablet by mouth two times a day. 60 tablet 5 potassium chloride SR (MICRO-K) 10 mEq CR capsule Take 10 mEq by mouth. methylphenidate ER (CONCERTA) 18 mg biphasic tablet Take 1 tablet by mouth every morning for 30 days. 30 tablet 0 MULTIVITAMIN ORAL Take 1 tablet by mouth once daily. No current facility-administered medications for this visit. ALLERGIES Allergen Reactions Latex Hives, Swelling Contact allergy, hives Penicillins Rash Benadryl [Diphenhyd* Mental Status Change agitation Droperidol Other: See Comments akathesia Compazine [Prochlor* Intolerance Restlessness, agitation Gluten GI Upset Versed [Midazolam H* Mental Status Change Pulling out IV's, extremely confused and restless, getting on hands and knees SOCIAL HISTORY[1] 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) PMH - PAST MEDICAL HISTORY OF seizure POTS (postural orthostatic tachycardia syndrome) @SHX@ FAMILY HISTORY Problem Relation Age of Onset Graves Disease Mother Heart Mother SVT Allergies Father Asthma Brother Allergies Maternal Grandmother Hypertension Maternal Grandfather Allergies Maternal Grandfather Heart Maternal Grandfather mat side/pat side Breast Cancer Paternal Grandmother No Known Problems Paternal Grandfather Anesthesia Problems No Family History Malig Hyperthermia No Family History PHYSICAL EXAM LMP 02/13/2025 LMP 02/13/2025 (Approximate) General Appearance: alert, in no acute distress Eyes: PERRLA, conjunctiva and sclera normal Lungs: breathing comfortably Abdomen: not distended Neuro:alert, in no acute distress, no asterixis Recent Labs: Hemoglobin (g/dL) Date Value 03/02/2025 14.3 07/26/2021 14.1 Hematocrit (%) Date Value 03/02/2025 41.4 07/26/2021 43.2 WBC (k/uL) Date Value 03/02/2025 7.02 07/26/2021 5.77 Glucose (mg/dL) Date Value 01/10/2025 80 07/26/2021 99 Potassium (mmol/L) Date Value 01/10/2025 4.2 07/26/2021 3.6 Sodium (mmol/L) Date Value 01/10/2025 139 07/26/2021 140 Chloride (mmol/L) Date Value 01/10/2025 105 07/26/2021 101 CO2 (mmol/L) Date Value 01/10/2025 23 07/26/2021 27 Creatinine (mg/dL) Date Value 01/10/2025 0.69 07/26/2021 0.68 BUN (mg/dL) Date Value 01/10/2025 13 07/26/2021 8 Anion Gap (mmol/L) Date Value 01/10/2025 11 07/26/2021 12 Calcium (mg/dL) Date Value 07/26/2021 9.2 Calcium, Total (mg/dL) Date Value 01/10/2025 9.0 Albumin (g/dL) Date Value 01/10/2025 4.4 Bilirubin, Total (mg/dL) Date Value 01/10/2025 0.2 Bilirubin, Direct (mg/dL) Date Value 06/29/2024 <0.2 Alkaline Phosphatase (U/L) Date Value 01/10/2025 45 AST (U/L) Date Value 01/10/2025 20 ALT (U/L) Date Value 01/10/2025 19 Protein, Total (g/dL) Date Value 01/10/2025 6.3 MELD 3.0: 7 at 11/04/2024 12:22 PM MELD-Na: 6 at 11/04/2024 12:22 PM Calculated from: Serum Creatinine: 0.65 mg/dL (Using min of 1 mg/dL) at 11/04/2024 12:22 PM Serum Sodium: 141 mmol/L (Using max of 137 mmol/L) at 11/04/2024 12:22 PM Total Bilirubin: 0.2 mg/dL (Using min of 1 mg/dL) at 11/04/2024 12:22 PM Serum Albumin: 4.8 g/dL (Using max of 3.5 g/dL) at 11/04/2024 12:22 PM INR(ratio): 1 at 11/04/2024 12:22 PM Age at listing (hypothetical): 24 years Sex: Female at 11/04/2024 12:22 PM Imaging: RUQ US 08/31: IMPRESSION: Small amount of sludge in normal caliber gallbladder. No cholelithiasis or sonographic evidence of acute cholecystitis. EGD 02/02/25: Findings: The oropharynx was normal. The examined esophagus was normal. The Z-line was regular and was found 40 cm from the incisors. The esophagogastric junction was visualized endoscopically. Features include a hiatal axial length of 0 cm, a hiatal diameter of 1 cm and a flap valve present with Dunmor shape. These components were classified as AFS Hiatal Grade 1 (intact) per the AFS Endoscopic Classification of Esophagogastric Junction Integrity. Suspect gastroparesis due to absence of peristalsis and patient symptoms. A TTS dilator was passed through the scope. Dilation with a 32-92-27-20-21 mm x 5.5 cm Merit Elation balloon (to a maximum balloon size of 21 mm) dilator was performed. The dilation site was examined following endoscope reinsertion and showed complete resolution of luminal narrowing. Estimated blood loss: none. The examined duodenum was normal. Impression: - Normal oropharynx. - Normal esophagus. - Z-line regular, 40 cm from the incisors. - Esophagogastric junction classified as AFS Hiatal Grade 1 (intact). No Hiatal Hernia - No gastric bile reflux observed - Gastroparesis, idiopathic etiology. Dilated with a 51-34-67-20-21 mm x 5.5 cm Merit Elation balloon (to a maximum balloon size of 21 mm). Significant widening but no mucosal breaks achieved. - Normal examined duodenum. - No specimens collected. Recommendation: - Patient has a contact number available for emergencies. The signs and symptoms of potential delayed complications were discussed with the patient. Return to normal activities tomorrow. Written discharge instructions were provided to the patient. - Resume previous diet. - Continue present medications. - Observe patient's clinical course. - Return to my office as previously scheduled. Colonoscopy 07/2024: Findings: The perianal and digital rectal examinations were normal. The terminal ileum appeared normal. The colon (entire examined portion) was moderately tortuous. The exam was otherwise without abnormality on direct and retroflexion views. Biopsies for histology were taken with a cold forceps from the right colon and left colon for evaluation of colitis. Impression: - The examined portion of the ileum was normal. - Tortuous colon. - The examination was otherwise normal on direct and retroflexion views. - Biopsies were taken with a cold forceps from the right colon and left colon for evaluation of microscopic colitis. Recommendation: - Discharge patient to home (ambulatory). - Resume previous diet. - Continue present medications. - Await pathology results. - Repeat colonoscopy at age 47 for screening purposes. - Return to referring provider. - Patient has a contact number available for emergencies. The signs and symptoms of potential delayed complications were discussed with the patient. Return to normal activities tomorrow. Written discharge instructions were provided to the patient. Assessment IMPRESSION Mikayla Bertrand is a 24 year old female with PMHx of hepatic hemangioma, POTS, GERD, gastroparesis, epilepsy off antiseizure meds, positive antiparietal antibodies, chronic abdominal pain, multiple drug intolerances, here on follow up for elevated LFTs. She has good synthetic liver function, normal PLT count and normal liver chemistries. She has a known benign and small hepatic hemangioma which should not be contributing to any symptoms, reviewed pathophysiology and lack of malignant potential. Unclear significance of +AMA in setting of normal liver chemistries. Will pursue further testing as below, consider liver biopsy if needed for definitive rule out of PBC. Can also trend alk phos and treat as PBC if ever elevated. No biliary dilation or other abnormality noted on previous MRI's. PLAN Stable small hepatic hemangioma requires no further surveillance - should not contribute to symptoms, if she does become symptomatic - recommend consult with hepatobiliary surgery Repeat AMA with [id number] IgG Consider liver biopsy if needed to rule PBC in/out vs trending LFTs and plan to initiate weight based Ursodiol if alk phos trends upward Continue GI follow up as recommended - seen today Liver healthcare maintenance: -Mediterranean diet/increased cardiovascular exercise with goal >45 minutes 5 days weekly -Tight control of metabolic syndrome essential, PCP to assist with management of metabolic syndrome risk factors -maintain BMI <30 -Avoid liver detox cleanse/supplements -Alcohol abstinence best -Not to exceed 2,000 mg tylenol daily -vaccinate for HAV/HBV if needed Follow up pending above results. Please contact sooner if you have questions or problems develop. I spent a total of 35 minutes on the date of the service which included preparing to see the patient, [id number] patient care, completing clinical documentation, obtaining and/or reviewing separately obtained history, performing a medically appropriate examination, counseling and educating the patient/family/caregiver, ordering medications, tests, or procedures, communicating with other HCPs (not separately reported), independently interpreting results (not separately reported), and communicating results to the patient/family/caregiver. Keri Hough PA-C March 09, 2025 12:07 PM Hepatology [1] Social History Tobacco Use Smoking status: Never Passive exposure: Never Smokeless tobacco: Never Vaping Use Vaping status: Never Used Substance Use Topics Alcohol use: No Drug use: No documented in this encounter [facility] 03-09-2025 Note [facility] 03-09-2025 Instructions Keri Hough PA-C - 03/09/2025 11:27 AM EDT Blood work can be done today or at any [facility] lab Follow up as needed, depending on results Call with any questions at [phone] documented in this encounter [facility] 03-09-2025 History of Present illness Narrative DEPARTMENT OF GASTROENTEROLOGY - FOLLOW UP VISIT HISTORY OF PRESENT ILLNESS Mikayla Bertrand is a 24 year old female who presents today for follow up of nausea/vomiting 2/2 gastroparesis and constipation. Last seen 09/15/2024. Interval Events: - Had pyloric dilation with improvement in Sx. Repeat pylori dilation with improvement in Sx again and hence planned for G-POEM. - She tells me the pyloric dilation also helped with her BM and no longer needing the Miralax daily. Remains on Linzess and Mestinon. - She wants to know if OK for her to take Carafate, PPI and Mylanta post G-POEM. TEST RESULTS SINCE LAST VISIT Hemoglobin (g/dL) Date Value 01/10/2025 11.8 07/26/2021 14.1 Hematocrit (%) Date Value 01/10/2025 36.6 07/26/2021 43.2 WBC (k/uL) Date Value 01/10/2025 6.55 07/26/2021 5.77 Glucose (mg/dL) Date Value 01/10/2025 80 07/26/2021 99 Potassium (mmol/L) Date Value 01/10/2025 4.2 07/26/2021 3.6 Sodium (mmol/L) Date Value 01/10/2025 139 07/26/2021 140 Chloride (mmol/L) Date Value 01/10/2025 105 07/26/2021 101 CO2 (mmol/L) Date Value 01/10/2025 23 07/26/2021 27 Creatinine (mg/dL) Date Value 01/10/2025 0.69 07/26/2021 0.68 BUN (mg/dL) Date Value 01/10/2025 13 07/26/2021 8 Anion Gap (mmol/L) Date Value 01/10/2025 11 07/26/2021 12 Calcium (mg/dL) Date Value 07/26/2021 9.2 Calcium, Total (mg/dL) Date Value 01/10/2025 9.0 Protein, Total (g/dL) Date Value 01/10/2025 6.3 04/10/2020 6.8 Albumin (g/dL) Date Value 01/10/2025 4.4 07/26/2021 4.9 Bilirubin, Total (mg/dL) Date Value 01/10/2025 0.2 04/10/2020 0.2 Alkaline Phosphatase (U/L) Date Value 01/10/2025 45 04/10/2020 56 AST (U/L) Date Value 01/10/2025 20 04/10/2020 20 ALT (U/L) Date Value 01/10/2025 19 04/10/2020 12 Current Outpatient Medications Medication Sig Dispense Refill berotralstat 110 mg cap Take 110 mg by mouth once daily. propranolol ER (INDERAL LA) 60 mg 24 hr capsule Take 1 capsule by mouth once daily. 90 capsule 2 linaCLOtide (LINZESS) 290 mcg capsule Take 1 capsule by mouth daily at 6 am. Take capsule on an empty stomach at least 30 minutes before a meal at the same time each day. Capsule should be swallowed whole. DO NOT chew or crush. 30 capsule 5 hydrOXYchloroQUINE (PLAQUENIL) 200 mg tablet Take 1 tablet by mouth once daily. 30 tablet 2 meloxicam (MOBIC) 15 mg tablet Take 1 tablet by mouth once daily. (Patient taking differently: Take 15 mg by mouth once daily as needed for pain.) 30 tablet 2 icatibant (FIRAZYR) 30 mg/3 mL injection Inject 3 mL subcutaneously three times a day as needed (for acute swelling episodes). 9 mL 11 famotidine (PEPCID) 20 mg tablet Take 1 tablet by mouth two times a day. 60 tablet 5 potassium chloride SR (MICRO-K) 10 mEq CR capsule Take 10 mEq by mouth. methylphenidate ER (CONCERTA) 18 mg biphasic tablet Take 1 tablet by mouth every morning for 30 days. 30 tablet 0 MULTIVITAMIN ORAL Take 1 tablet by mouth once daily. No current facility-administered medications for this visit. ALLERGIES Allergen Reactions Latex Hives, Swelling Contact allergy, hives Penicillins Rash Benadryl [Diphenhyd* Mental Status Change agitation Droperidol Other: See Comments akathesia Compazine [Prochlor* Intolerance Restlessness, agitation Gluten GI Upset Versed [Midazolam H* Mental Status Change Pulling out IV's, extremely confused and restless, getting on hands and knees Procedures EGD - THERAPEUTIC, EUS, OR TUBE INTERVENTIONS Findings: The oropharynx was normal. The examined esophagus was normal. The Z-line was regular and was found 40 cm from the incisors. The esophagogastric junction was visualized endoscopically. Features include a hiatal axial length of 0 cm, a hiatal diameter of 1 cm and a flap valve present with Dunmor shape. These components were classified as AFS Hiatal Grade 1 (intact) per the AFS Endoscopic Classification of Esophagogastric Junction Integrity. Suspect gastroparesis due to absence of peristalsis and patient symptoms. A TTS dilator was passed through the scope. Dilation with a 03-87-94-20-21 mm x 5.5 cm Merit Elation balloon (to a maximum balloon size of 21 mm) dilator was performed. The dilation site was examined following endoscope reinsertion and showed complete resolution of luminal narrowing. Estimated blood loss: none. The examined duodenum was normal. Impression: - Normal oropharynx. - Normal esophagus. - Z-line regular, 40 cm from the incisors. - Esophagogastric junction classified as AFS Hiatal Grade 1 (intact). No Hiatal Hernia - No gastric bile reflux observed - Gastroparesis, idiopathic etiology. Dilated with a 09-05-77-20-21 mm x 5.5 cm Merit Elation balloon (to a maximum balloon size of 21 mm). Significant widening but no mucosal breaks achieved. - Normal examined duodenum. - No specimens collected. REVIEW OF SYSTEMS Per HPI PHYSICAL EXAMINATION BP 110/73 Pulse 82 Ht 5' 2 (1.58m) Wt 127 lb (57.6kg) SpO2 96% LMP 02/13/2025 BMI 23.22 kg/(m^2). General Appearance: alert, oriented x 3, pleasant and in no acute distress Eyes: Negative for significant chage in vision, and significant vision problems Abdomen: soft, nondistended Rectal exam: deferred Extremities: no cyanosis or edema Skin: no jaundice, no spider angiomas, no palmar erythema Neuro: alert, oriented x 3, pleasant and in no acute distress Assessment IMPRESSION Mikayla Bertrand is a 24 year old female who presents today for routine follow up. I saw her initially following a hospital admission for N/V and an opinion on possible AIG given + serologies. Gastric biopsies with active gastritis but no features of AIG. H pylori stool test was checked and came back positive. She underwent quadruple therapy with successful eradication. We obtained a GES which showed severe gastroparesis for which she now follows with Dr. Tamayo. Previously tried on Erythromycin with some improvement, Gabapentin 100mg TID for RUQ pain. She does not want to take Reglan for gastroparesis given a family member's reaction to it. Also with constipation (thought to be slow transit, though no formal testing done, denies Sx consistent with DD and never had ARM done). Has been on Linzess and Mestinon (per Dr. Tamayo) with good success until recently when her Sx flared up. She had to add Miralax and today is first day with good BM. History also notable for elevated fasting gastrin levels off PPIs, DOTATATE scan neg and repeat gastrin down to 212. Lastly, she does have a hx of aphtous oral ulcers. Given gastric bx with active gastritis (turned out to be 2/2H pylori that was not picked with stains), we performed an EGD and colon both of which were negative for Crohn's. VCE with no small bowel lesions. Saw rheumatology recently and work up revealed + AMA (normal LFT) and low C4 for which she is seeing Allergy to rule out hereditary angioedema. Currently follows with hepatology and rheumatology. - Had pyloric dilation with improvement in Sx. Repeat pylori dilation with improvement in Sx again and hence planned for G-POEM. - She tells me the pyloric dilation also helped with her BM and no longer needing the Miralax daily. Remains on Linzess and Mestinon. - She wants to know if OK for her to take Carafate, PPI and Mylanta post G-POEM. PLAN (A04.8) H. 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 She is likely at risk of developing AIG. Will repeat serologies to check if those normalized with H pylori eradication, otherwise, will monitor the stomach periodically (in 5 years? If no indication for earlier EGD) (K59.01) Slow transit constipation Presumed slow transit constipation, never had Smartpill or Sitzmarkers study done. No Sx suggestive of dyssynergic defecation. Continue Linzess 290 and Mestinon. (K31.84) Gastroparesis Follows in gastroparesis clinic. Planned for G-POEM. Discussed OK for Carafate, PPI and Mylenta regimen post surgery form my standpoint Plan is to follow up in one year. and as needed (prn). I spent a total of 30 minutes on the date of the service which included preparing to see the patient, [id number] patient care, completing clinical documentation, obtaining and/or reviewing separately obtained history, performing a medically appropriate examination, counseling and educating the patient/family/caregiver, and ordering medications, tests, or procedures. Bernie Martines MD March 09, 2025 documented in this encounter [facility] 03-09-2025 Note [facility] 03-04-2025 Telephone encounter Note Patient scheduled for G-POEM 03/23/2025. Postop in 4 weeks to be scheduled by GP team. Aware of need for [facility]. Pre and post G-POEM instructions discussed in detail with written copy provided via [employer]. Discussed meds and pended. No other questions/concerns at this time. [facility] 03-04-2025 Miscellaneous Notes Patient scheduled for G-POEM 03/23/2025. Postop in 4 weeks to be scheduled by GP team. Aware of need for [facility]. Pre and post G-POEM instructions discussed in detail with written copy provided via [employer]. Discussed meds and pended. No other questions/concerns at this time. documented in this encounter [facility] 03-02-2025 Note [facility] 03-02-2025 History of Present illness Narrative Images from the original note were not included. Episode Visit Count: 4 Therapist That Will Accept/Oversee The Plan Of Care: Moody Lisa Start of Care Date: 01/26/25 Onset Date: 07/07/24 [facility] PHYSICAL THERAPY PROGRESS REPORT PLAN OF CARE UPDATE: Assessment: Mikayla Bertrand demonstrates moderate improvement in heavy exertion, physical activities, and recreational activities. The patient has progressed toward goals. Patient continues to present with impairments in overall function, strength, and symptom management that interfere with heavy exertion, recreational activities, running, jumping, squatting . Current prognosis is Good due to: current objective clinical presentation, positive past response to therapy, within-session changes, good support system/ coping skills . The patient will benefit from continued skilled therapy services to meet the updated goals for this plan of care as noted below. Goals updated on 03/02/2025. Goals for Episode of Care: established 01/26/25 [place] in home exercise program. Met Patient will decrease pain rating by 2 points to meet minimal clinical important difference for numeric pain rating scale. Partially met Patient will demonstrate increase in shoulder and hip strength to 4+ to 5/5 during manual muscle testing in order to improve function for basic self-care tasks, home management tasks, leisure / recreation skills, and prior functional tasks. Progressing Perform walking for recreational, ADLs, and IADLs with decreased report of symptoms/pain in 6-8 weeks. Progressing Perform self care without pain. Met Time Frame for Goals and Treatment : 04/02/25 Planned Interventions, Frequency, and Duration: 1x every other week, 4 weeks Total Number of Visits Planned: 2 Patient to be seen for Therapeutic exercise (70079), Neuromuscular re-education (43261), Manual therapy (03609), Therapeutic activities (47252), Self-retirement management (48094), Patient/Family/Caregiver Education, Body Mechanics Training PLAN FOR NEXT VISIT: Progress hip strengthening; hip thrusts, RDLs, etc SUBJECTIVE: N/t has been gone for 2 weeks now, patient notes ant shoulder and neck pain is also better and less intense. Endurance is better on her bike, able to go around her neighborhood loop for more laps. Notes that shoulders and hips feel a bit stronger overall. Calf pain is not nearly as bad, she doesn't pay for it like she used to when she pushes her activity. Also note sshe is not taking her meds nearly as much. Functional Limitations: heavy exertion, recreational activities, running, jumping, squatting Pain: Pain Pain Level: 4 Pain Location: Shoulder - Left, Shoulder - Right, Hip - Left, Hip - Right, Knee - Left, Knee - Right, Back PROMIS Scales 11/01/2024 04/30/2023 Higher is Better Phys Func - T Score 42 (mild dysfunction) 55 (within normal limits) Phys Func - Percentile 21 69 11/01/2024 Lower is Better Pain Interference - T Score 63 (moderate) Pain Interference - Percentile 10 T-Score and Percentile Interpretation T-scores: mean of general population = 50. 5 points is clinically meaningfully difference Percentiles provide an indication of how the patient's score ranks in relation to the general population. Higher percentile rankings indicate better function/quality of life. 50th percentile is the average of the general population and indicates half of respondents had a worse score. OBJECTIVE MEASURES WITH LEVEL OF FUNCTION: UE and Cervical Strength R UE Strength: 4+/5 rtc, 3+/5 periscapular L UE Strength: 4+/5 rtc, 3+/5 periscapular LE Strength Trunk Strength: 4+/5 R LE Strength: 4+/5 hip L LE Strength: 4+/5 hip TREATMENT: Therapeutic Exercise: 1: *Prone T 3x10 2: *Prone Y 3x10 3: *Prone I 5# 3x10 4: *Reverse crunch 3x10 5: *Deadbugs arms and legs 3x10/side 6: Objective measures obtained Skilled Intervention: Patient was educated in proper exercise technique and purpose for exercises. Skilled judgment was used in selection of appropriate interventions. Provided written instruction for home exercise program to facilitate proper performance and compliance. Correct performance of therapeutic exercises was facilitated with verbal, visual, and tactile cuing. Billing Therapeutic Exercise Treatment Minutes: 34 Skilled Treatment Time Minutes (timed and untimed codes): 34 Total Session Time (minutes): 34 Session Start Time : 1301 Session Stop Time : 1335 Moody Lisa PT Program_ID:[id number] Access Code: [email or web address] URL: [email or web address] Date: 03-02-2025 Prepared By: Moody Lisa Program Notes Exercises - Scaption with Dumbbells - 1 x daily - 7 x weekly - 3 sets - 10 reps - Shoulder External Rotation with Anchored Resistance - 1 x daily - 7 x weekly - 3 sets - 10 reps - Shoulder Internal Rotation with Resistance - 1 x daily - 7 x weekly - 3 sets - 10 reps - Supine Posterior Pelvic Tilt - 1 x daily - 7 x weekly - 3 sets - 10 reps - Clam with Resistance - 1 x daily - 7 x weekly - 3 sets - 10 reps - Sidelying Hip Abduction - 1 x daily - 7 x weekly - 3 sets - 10 reps - Sidelying Bent Knee Hip Flexion - 1 x daily - 7 x weekly - 3 sets - 10 reps - Sidelying Hip Circles - 1 x daily - 7 x weekly - 3 sets - 10 reps - Supine Bug with Leg Extension - 1 x daily - 7 x weekly - 3 sets - 10 reps - Side Stepping with Resistance at Ankles - 1 x daily - 7 x weekly - 3 sets - 10 reps - Prone Shoulder Horizontal Abduction - 1 x daily - 7 x weekly - 3 sets - 10 reps - Prone Single Arm Shoulder Y - 1 x daily - 7 x weekly - 3 sets - 10 reps - Prone Shoulder Extension - Single Arm - 1 x daily - 7 x weekly - 3 sets - 10 reps documented in this encounter [facility] 03-02-2025 Note HNO ID: [id number] Author: ?, ?, ? Service: ? Author Type: ? Type: Progress Notes Filed: 03/30/2025 06:50 Note Text: Patient has been scheduled [facility] 03-02-2025 Note [facility] 03-01-2025 Instructions Anderson Barker, - 03/01/2025 1:58 PM EDT We discussed your follow-up care for gastroparesis and the next steps in your treatment plan: - Post-Dilation Progress: - You reported significant improvement in symptoms immediately after the pyloric dilation on 02/02/2025, including increased appetite, reduced nausea, and more regular bowel movements. - Over the past few weeks, your symptoms have gradually returned, including decreased appetite, nausea, and reflux. This is expected, as the effects of dilation typically last about 4 weeks. - G-POEM Procedure: - We discussed the G-POEM (gastric peroral endoscopic myotomy) procedure as the next step in your treatment. This is a more permanent solution compared to dilation, as it involves cutting the pyloric muscle to keep it open. - Expected benefits include sustained symptom improvement similar to what you experienced after dilation. However, this procedure may not resolve all symptoms. - Risks of the procedure are low, with a less than 1% chance of complications such as bleeding, injury, or ulcers. Ulcers are more common in smokers, but you will be prescribed Protonix and Carafate (both twice daily for 30 days) to reduce this risk. - Post-procedure discomfort, such as pressure or burning, may occur in 30-50% of patients and typically resolves within 3-4 days. You can manage this with Tylenol and antacids like Tums or Mylanta. - Dietary Instructions for G-POEM: - You will need to follow a liquid diet for 3 days before and 10 days after the procedure: - Full liquids (e.g., yogurt, pudding, protein shakes, milkshakes, smoothies, blended soups) are allowed during this time. - Clear liquids (e.g., water, broth) are required the day before and the day of the procedure. - After 10 days, you can gradually reintroduce soft foods and transition back to your regular diet. - Procedure Logistics: - The G-POEM is a same-day procedure performed under general anesthesia, lasting approximately 45 minutes. You will go home the same day unless complications arise. - Plan to take about 1 week off work to recover. Most patients feel well enough to return to work by the following Friday. - Next Steps: - My nurse will contact you to schedule the G-POEM procedure. Please coordinate with your manager sql to arrange time off work. - You will meet with the anesthesia team before the procedure to discuss your history and any concerns, including your prior experience with ileus after general anesthesia. The anesthesia team will adjust medications as needed to minimize this risk. - Medications: - Continue taking Linzess and Miralax as prescribed to manage constipation. - After the G-POEM procedure, you will take Protonix and Carafate twice daily for 30 days to prevent ulcers. Please let us know if you have any additional questions or concerns before the procedure. My nurse will be in touch soon to finalize scheduling. documented in this encounter [facility] 03-01-2025 Note [facility] 03-01-2025 History of Present illness Narrative Images from the original note were not included. [facility] [place] Gastroparesis/Dysmotility Virtual Follow Up This encounter was provided via two-way, live video teleconferencing within the guidelines of state licensure rules for new and established patients. I have communicated my name and active licensure. The patient's identity and physical location were verified at the time of this visit. Either the patient or their legal scheduling representative has been informed of the risks and benefits of -- and alternatives to -- treatment through a remote evaluation and consents to proceed with the evaluation remotely. Technical difficulties were not encountered. 20 minutes were spent on the teleconference with the patient. An additional 10 minutes was required for chart review/preparation, documentation, orders, and care coordination. Recording using [employer] software for draft documentation of the visit was discussed with the patient/authorized scheduling representative; all questions welcomed and answered. Patient/authorized scheduling representative agreed to proceed PATIENT NAME: Mikayla Bertrand SERVICE DATE: March 01, 2025 SERVICE TIME: 1:32 PM S/P: 02/02/2025 EGD with 21mm Pyloric Dilation Impression: - Normal oropharynx. - Normal esophagus. - Z-line regular, 40 cm from the incisors. - Esophagogastric junction classified as AFS Hiatal Grade 1 (intact). No Hiatal Hernia - No gastric bile reflux observed - Gastroparesis, idiopathic etiology. Dilated with a 24-30-00-20-21 mm x 5.5 cm Merit Elation balloon (to a maximum balloon size of 21 mm). Significant widening but no mucosal breaks achieved. - Normal examined duodenum. - No specimens collected. 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 There is clinical suspicion for mid/hind-gut dysmotility based on historical bowel patterns and symptom distribution however patient is currently reasonably maintained on Linzess 290 MiraLAX typically with at least 3 bowel movement days per week. Case is further confounded by evolving autoimmune processes. Currently patient is tolerating a Soft diet, and does not exhibit severe malnutrition/weight loss. 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 Now status post 02/02/2025 EGD with 21 mm pyloric dilation which resulted in approximately 3 weeks of marked symptomatic improvement in occluding minimal nausea, increased oral intake, and even improved bowel function. Based on patient's etiology, current symptoms, and dysmotility workup, I feel that patient is an appropriate candidate for pyloric therapy. It was discussed in detail that the procedure would primarily aim to improve symptoms of vomiting/retching as well as delayed fullness. There may be some ancillary improvements to a lesser extent in areas of nausea and upper abdominal pressure, but is not guaranteed. Symptoms response of pain, nausea, bloating, and bowel patterns are unpredictable and may be confounded by other factors.Patient will ultimately require longitudinal adjunctive care including medical, nutritional/dietary, and behavioral/psychosocial support for optimal symptom palliation. Risks of the procedure including bleeding (including major bleeding requiring transfusion), perforation, infection/abscess, ulceration (need for adherence to acid suppressive therapy), exacerbation of symptoms, symptom recurrence, anesthesia related complications, cardiopulmonary events, thromboembolic events, aspiration/pneumonia, dental gum injury, failure to identify/treat a condition, need for additional procedures/surgeries, as well as other rare complications including were presented. Alternatives of Pyloroplasty, Pyloric Dilation and Botox, and continued medical/dietary management were reviewed. 1. Gastroparesis (K31.84) 2. Gastroesophageal reflux disease, unspecified whether esophagitis present (K21.9) 3. Chronic idiopathic constipation (K59.04) Severe, medically refractory idiopathic dysautonomic gastroparesis with prior EGD and pyloric dilation on 02/02/2025, which provided significant but transient symptom relief. Symptoms of nausea, vomiting, and constipation improved post-dilation, but are now returning to baseline. Chronic idiopathic constipation is managed with Linzess and Miralax. GERD symptoms persist, with bile reflux noted on prior EGD. - Schedule G-POEM as a more durable intervention compared to repeat dilation; reviewed risks (1% risk of technical complications such as bleeding, injury, or perforation; rare risk of ulcer formation, especially in smokers), benefits, and expected outcomes. - Provided pre- and post-procedure dietary instructions: full liquid diet for 3 days prior and 10 days after the procedure, with clear liquids the day before and day of the procedure. - Advised on post-procedure management: Protonix and Carafate BID for 30 days to prevent ulcer formation; Tylenol and antacids (Tums or Mylanta) for expected transient post-procedure discomfort. - Advised to take 1 week off work post-procedure; no physical restrictions after the procedure. - Nurse to contact patient to schedule G-POEM procedure. - Follow-up 4 weeks after procedure via virtual visit for recheck SUBJECTIVE HPI: Mikayla Bertrand is a 24-year-old female presenting for a surgical follow-up of medical refractory idiopathic dysautonomic gastroparesis. Mikayla was last seen for an initial consultation on 01/11/2025, at which time she was experiencing dominant symptoms of nausea, emesis, and constipation. A gastric emptying study from January 2024 demonstrated severe gastric delay with 81% retention at 4 hours. An electrogastrography (EGG) study in February 2024 showed a negative GMAT score of -0.44, as well as hyponormal 3-cycle waves and mixed dysrhythmia. During her last consultation, she was continued on Linzess 290 mcg and Miralax by gastroenterology for the treatment of her chronic idiopathic constipation. She subsequently underwent an EGD with 21 mm balloon dilation on 02/02/2025, which resulted in significant widening of the pylorus, but no mucosal breaks were observed. A small amount of bile reflux was also noted on the EGD. Since the pyloric dilation, Mikayla reports a significant improvement in symptoms. She was able to eat approximately double the amount of food she normally would without experiencing nausea or pain. She notes that her bowel movements became more regular, and she has not had to perform a full bowel prep in the last month. She denies any episodes of emesis since the procedure, although she has experienced severe nausea episodes requiring Zofran 8 mg once or twice for 2 consecutive days since the procedure, most recently last week. She reports a decrease in appetite and an increase in the sensation of stomach fullness over the past 4-5 weeks. She also notes a return of reflux symptoms after an initial improvement for 2 weeks post-procedure. Mikayla rates her symptoms over the past 3-4 weeks on a scale of 0 to 5 as follows: - Nausea: 2-3 - Retching or dry heaves: 0 - Emesis: 0 - Sensation of stomach fullness: 2 - Inability to finish an appropriate-sized meal: 3 - Feeling excessively full after eatin - Generalized loss of appetite: 1-2 - Sensation of bloating or feeling like needing to loosen clothes: 3 - Appearance of the belly being visibly larger: Not specified She denies any worsening of symptoms after the dilation and reports a significant improvement in her overall condition for 2-3 weeks post-procedure. She gained weight during this period and expresses concern about potential weight gain with future treatments. She inquires about the G-POEM procedure and its potential benefits and risks, as well as the expected recovery time and impact on her work schedule. She also expresses concern about the risk of ileus with general anesthesia, given her history of ileus after a previous foot surgery. Overall patient is very satisfied with the procedure. If given the option again, patient would elect to have the procedure Gastroparesis Cardinal Symptom Index (4 weeks post-dilation) 1. nausea 2 2. retching 0 3. vomiting 0 4. stomach fullness 2 5. not able to finish a normal-sized meal 3 6. feeling excessively full after meals 3 7. loss of appetite 1 8. bloating (feeling like you need to loosen your clothes) 3 9. stomach or belly visibly larger 2 Scale (0-none; 1-very mild; 2-mild; 3-moderate; 4-severe; 5-very severe) ROS: Constitutional: (+) weight gain Gastrointestinal: (+) nausea, (+) abdominal pain, (+) gastroesophageal reflux, (+) early satiety, (+) postprandial fullness, (+) bloating, (+) decreased appetite, (-) vomiting, (-) retching, (-) constipation OBJECTIVE LMP 08/25/2024 PHYSICAL EXAMINATION: GENERAL: AAOx3, NAD EYES: Non-icteric, EOMI NOSE: Septum midline, no drainage ORAL: Tongue midline, no exudates NECK: Normal ROM PULM: Breathing non-labored without stridor or wheezing ABDOMEN: Reports soft, Non-distended, Non-tender EXTREMITIES: Normal ROM SKIN: Non-icteric, no diffuse rashes PSYCH: Appropriate mood and affect. SIGNATURE: Anderson Barker DO PATIENT NAME: Mikayla Bertrand DATE: March 01, 2025 TIME: 1:32 PM Please note that portions of this documentation have been copied from the prior encounter however all information has been appropriately reviewed and modified to reflect the current clinical status and plan of care. documented in this encounter [facility] 02-28-2025 Evaluation note Diagnosis Onset Date Resolution Yeast infection acute February 282024 2:33pm [facility] Work Phone: [phone]) 118-435608-25-2025 [facility]'[address], [address] [place] [address] OFFICE VISIT Date of Service: 02/28/25 MR#: [id number] Acct: [id number] Name: MIKAYLA BERTRAND Rep #: [id number] : 2000 Provider: MONIQUE Sarah Age/Sex: 24/F [place] [facility] [place]: Signed Intake Vital Signs 12/22/24 12:20 02/28/25 14:34 02/28/25 14:36 Height 5 ft 2 in 5 ft 2 in 5 ft 2 in Weight: 124 lb BMI 22.6 BP 126/83 H Intake Visit Reasons: culture Equipment Operat0R Required: No Is patient in pain?: No Allergies diphenhydramine (From Benadryl) Allergy (Intermediate, Verified 02/28/25 14:33) Other prochlorperazine (From Compazine) Allergy (Intermediate, Verified 02/28/25 14:33) Other gluten Allergy (Verified 02/28/25 14:33) Upset Stomach latex Allergy (Verified 02/28/25 14:33) Hives midazolam HCl (From Versed) Allergy (Verified 02/28/25 14:33) Other Penicillins Allergy (Verified 02/28/25 14:33) Hives haloperidol (From Haldol) Adverse Reaction (Verified 02/28/25 14:33) agitation Medications ?Medication ?Instructions ?Recorded ?Confirmed ?Type methylphenidate HCl 18 mg 18 mg PO DAILY 05/09/2102/05 History tablet,extended release 24 hr (Concerta) propranolol 60 mg capsule,24 60 mg PO DAILY 09/12/23 0 02/28/25 History hr,extended release linaclotide 290 mcg capsule 290 mcg PO QDAY 05/24/24 0 02/28/25 History (Linzess) famotidine 20 mg tablet 20 mg PO BID 08/13/24 History potassium chloride 10 mEq 10 meq PO QDAY 08/13/2402/05 History capsule,extended release berotralstat 110 mg capsule 110 mg PO DAILY 11/13/24 0 02/28/25 History (Orladeyo) hydroxychloroquine 200 mg tablet 200 mg PO DAILY 12/2202/28/25 History (Plaquenil) gabapentin 100 mg capsule 100 mg PO TID 30 days #90 ca ps 01/28/25 02/28/25 Rx ketorolac 10 mg tablet 10 mg PO Q6H PRN PRN pain #3 0 tabs 01/28/25 02/28/25 Rx fluconazole 150 mg tablet 150 mg PO Q3D 2 doses #2 tab s 02/28/25 02/28/25 Rx Is last menstrual period known: Yes Last Menstrual Period: 02/13/25 Post menopausal: No Patient : No : No Control Method: salp PFSH Medical History Iron deficiency Hereditary angioedema Tortuous colon Autoimmune gastritis Gastroparesis Epilepsy POTS (postural orthostatic tachycardia syndrome) Constipation Elevated transaminase level Narcolepsy GERD (gastroesophageal reflux disease) Headaches, cluster Environmental allergies Surgical History History of bilateral salpingectomy History of foot surgery History of tonsillectomy and adenoidectomy Family History Father Migraine Mother Migraine Other Anxiety Asthma Hypertension Social History household members: spouse housing: house number of children: 0 current occupational status: employed current occupation: [employer] Smoking Status: Never smoker alcohol intake: never substance use type: does not use what type of physical activity do you participate in: walking and weight training frequency: 3-4 times per week duration: 30-45 minutes/day additional social history: - [employer] culture Details: MIKAYLA BERTRAND is a 24 year old who presents for vaginal itching, irritation, discharge x 7 days. having some burning with urination. Tried monistat 3 withoutsuccess. Female Reproductive History Last Menstrual Period: 02/13/25 Cycle Length: 21-35 Questions: sexually active: Yes, dyspareunia: No and PCB: No History 0 Elective abortions Hx Para Spontaneous abortions Hx # Term Pregnancies Ectopic pregnancies Hx # Pregnancies Multiple births # of living children ROS Const Constitutional: Reports system reviewed and no additional complaints, except as documented Cardio Card: Reports system reviewed and no additional complaints, except as documented Resp Resp: Reports system reviewed and no additional complaints, except as documented GI GI: Reports system reviewed and no additional complaints, except as documented : Reports system reviewed and no additional complaints, except as documented; Denies difficulty voiding, dysuria or urinary frequency Skin Skin/Breast: Reports system reviewed and no additional complaints, except as documented Neuro Neuro: Reports system reviewed and no additional complaints, except as documented Psych Psych: Reports system reviewed and no additional complaints, except as documented Exam Const General: cooperative, healthy appearing, comfortable and no acute distress Resp Effort & Inspection: normal respiratory effort, able to speak in complete sentences and symmetric chest movement GI Inspection: normal to inspection Palpation: soft External Female Exam: normal external appearance and normal appearance of the urethra Urethra: normal appearance of the urethra Speculum Exam - Vagina: normal appearance of the vagina and normal vaginal discharge Speculum Exam - Cervix: normal appearance of the cervix and nontender Bimanual Exam- Vagina & Uterus: normal bimanual exam, normal palpation, uterine size normal, Notender and non-tender Bimanual Exam- Adnexa, other: normal Pelvic Support: normal Neuro General: patient alert, patient awake and patient oriented x3 Cognition: normal cognition Speech: speech normal Gait: normal gait Psych Appearance: grossly normal and well kempt Mental Status: mental status grossly normal Affect: normal affect Speech and Movement: speech and movement normal Attitude: cooperative Thought Process: normal Thought Content: normal Judgment: judgment good Coding Level of Care Code Off vis,est,level 3 Diagnoses Yeast infection B37.9 Assessment and Plan Assessment and Plan (1) Yeast infection: Status: Acute Plan: genital culture diflucan x 2. will stop Plaquenil when taking. RTO for annual/PRN Medications: New fluconazole may repeat second dose 72 hrs after first dose if symptoms persist 150 mg POQ3D 2 doses 2 tabs 0RF Plan Details Goals & Barriers: Goals Decrease spasm and pain Increase ROM Increase ability to sleep Barriers Lumbar scoliosis 02/28/25 1448 s MONIQUE> Date _ Sobia Sarah CNM Cosigner Signature: Date (if applicable) CC: ~ [facility]08-25-2025 Progress note Author Sobia Sarah [facility] Services Note Date/Time February 28, 2025 2: 48pm [facility] [address], [address] [place] [address] OFFICE VISIT Date of Service: 02/28/25 MR#: [id number] Acct: [id number] Name: MIKAYLA BERTRAND Rep #: [id number] : 2000 Provider: MONIQUE Sarah Age/Sex: 24/F [place] [facility] [place]: Signed Intake Vital Signs 12/22/24 12:20 02/28/25 14:34 02/28/25 14:36 Height 5 ft 2 in 5 ft 2 in 5 ft 2 in Weight: 124 lb BMI 22.6 BP 126/83 H Intake Visit Reasons: culture Equipment Operat0R Required: No Is patient in pain?: No Allergies diphenhydramine (From Benadryl) Allergy (Intermediate, Verified 02/28/25 14:33) Other prochlorperazine (From Compazine) Allergy (Intermediate, Verified 02/28/25 14:33) Other gluten Allergy (Verified 02/28/25 14:33) Upset Stomach latex Allergy (Verified 02/28/25 14:33) Hives midazolam HCl (From Versed) Allergy (Verified 02/28/25 14:33) Other Penicillins Allergy (Verified 02/28/25 14:33) Hives haloperidol (From Haldol) Adverse Reaction (Verified 02/28/25 14:33) agitation Medications ?Medication ?Instructions ?Recorded ?Confirmed ?Type methylphenidate HCl 18 mg 18 mg PO DAILY 05/09/2102/05 History tablet,extended release 24 hr (Concerta) propranolol 60 mg capsule,24 60 mg PO DAILY 09/12/23 0 02/28/25 History hr,extended release linaclotide 290 mcg capsule 290 mcg PO QDAY 05/24/24 0 02/28/25 History (Linzess) famotidine 20 mg tablet 20 mg PO BID 08/13/24 History potassium chloride 10 mEq 10 meq PO QDAY 08/13/2402/05 History capsule,extended release berotralstat 110 mg capsule 110 mg PO DAILY 11/13/24 0 02/28/25 History (Orladeyo) hydroxychloroquine 200 mg tablet 200 mg PO DAILY 12/2202/28/25 History (Plaquenil) gabapentin 100 mg capsule 100 mg PO TID 30 days #90 ca ps 01/28/25 02/28/25 Rx ketorolac 10 mg tablet 10 mg PO Q6H PRN PRN pain #3 0 tabs 01/28/25 02/28/25 Rx fluconazole 150 mg tablet 150 mg PO Q3D 2 doses #2 tab s 02/28/25 02/28/25 Rx Is last menstrual period known: Yes Last Menstrual Period: 02/13/25 Post menopausal: No Patient : No : No Control Method: salp [facility] Medical History Iron deficiency Hereditary angioedema Tortuous colon Autoimmune gastritis Gastroparesis Epilepsy POTS (postural orthostatic tachycardia syndrome) Constipation Elevated transaminase level Narcolepsy GERD (gastroesophageal reflux disease) Headaches, cluster Environmental allergies Surgical History History of bilateral salpingectomy History of foot surgery History of tonsillectomy and adenoidectomy Family History Father Migraine Mother Migraine Other Anxiety Asthma Hypertension Social History household members: spouse housing: house number of children: 0 current occupational status: employed current occupation: [employer] Smoking Status: Never smoker alcohol intake: never substance use type: does not use what type of physical activity do you participate in: walking and weight training frequency: 3-4 times per week duration: 30-45 minutes/day additional social history: - [employer] culture Details: MIKAYLA BERTRAND is a 24 year old who presents for vaginal itching, irritation, discharge x 7 days. having some burning with urination. Tried monistat 3 withoutsuccess. Female Reproductive History Last Menstrual Period: 02/13/25 Cycle Length: 21-35 Questions: sexually active: Yes, dyspareunia: No and PCB: No History 0 Elective abortions Hx Para Spontaneous abortions Hx # Term Pregnancies Ectopic pregnancies Hx # Pregnancies Multiple births # of living children ROS Const Constitutional: Reports system reviewed and no additional complaints, except as documented Cardio Card: Reports system reviewed and no additional complaints, except as documented Resp Resp: Reports system reviewed and no additional complaints, except as documented GI GI: Reports system reviewed and no additional complaints, except as documented : Reports system reviewed and no additional complaints, except as documented; Denies difficulty voiding, dysuria or urinary frequency Skin Skin/Breast: Reports system reviewed and no additional complaints, except as documented Neuro Neuro: Reports system reviewed and no additional complaints, except as documented Psych Psych: Reports system reviewed and no additional complaints, except as documented Exam Const General: cooperative, healthy appearing, comfortable and no acute distress Resp Effort & Inspection: normal respiratory effort, able to speak in complete sentences and symmetric chest movement GI Inspection: normal to inspection Palpation: soft External Female Exam: normal external appearance and normal appearance of the urethra Urethra: normal appearance of the urethra Speculum Exam - Vagina: normal appearance of the vagina and normal vaginal discharge Speculum Exam - Cervix: normal appearance of the cervix and nontender Bimanual Exam- Vagina & Uterus: normal bimanual exam, normal palpation, uterine size normal, No tender and non-tender Bimanual Exam- Adnexa, other: normal Pelvic Support: normal Neuro General: patient alert, patient awake and patient oriented x3 Cognition: normal cognition Speech: speech normal Gait: normal gait Psych Appearance: grossly normal and well kempt Mental Status: mental status grossly normal Affect: normal affect Speech and Movement: speech and movement normal Attitude: cooperative Thought Process: normal Thought Content: normal Judgment: judgment good Coding Level of Care Code Off vis,est,level 3 Diagnoses Yeast infection B37.9 Assessment and Plan Assessment and Plan (1) Yeast infection: Status: Acute Plan: genital culture diflucan x 2. will stop Plaquenil when taking. RTO for annual/PRN Medications: New fluconazole may repeat second dose 72 hrs after first dose if symptoms persist 150 mg POQ3D 2 doses 2 tabs 0RF Plan Details Goals & Barriers: Goals Decrease spasm and pain Increase ROM Increase ability to sleep Barriers Lumbar scoliosis 02/28/25 5756 <Electronically signed by Sobia alvarenga CNM> Date _ Sobia Sarah CNM Cosigner Signature: Date (if applicable) CC: ~ [facility] Work Phone: [phone] [phone] [facility] History of Present illness Narrative* Baldomero Lisan, PT - 02/17/2025 2:38 PM EDT Episode Visit Count: 3 Therapist That Will Accept/Oversee The Plan Of Care: Moody Lisa Start of Care Date: 01/26/25 Onset Date: 07/07/24 [facility] PHYSICAL THERAPY TREATMENT NOTE ASSESSMENT: Mikayla Bertrand tolerated the session with fatigue. She demonstrated improvements in tolerance for exercises with no increase in symptoms. The patient will continue to benefit from ongoing skilled physical therapy to progress toward set goals. PLAN FOR NEXT VISIT: Continue strength progression per tolerance SUBJECTIVE: Patient feels exercises are at an appropriate level currently. Pain: OBJECTIVE MEASURES WITH LEVEL OF FUNCTION: Good form observed throughout TREATMENT: Therapeutic Exercise: 1: SL hip abduction series 3x10 each/side 2: Clamshells 3x10/side PiTB 3: GTB ER 2x10/side 4: GTB IR 2x10/side 5: Full can 5# 2x10/side 6: PPT 2x10 7: bugs 2x10/side Skilled Intervention: Patient was educated in proper exercise technique and purpose for exercises. Skilled judgment was used in selection of appropriate interventions. Provided written instruction for home exercise program to facilitate proper performance and compliance. Correct performance of therapeutic exercises was facilitated with verbal, visual, and tactile cuing. Billing Therapeutic Exercise Treatment Minutes: 24 Skilled Treatment Time Minutes (timed and untimed codes): 24 Total Session Time (minutes): 24 Session Start Time : 1435 Session Stop Time : 1459 Moody Lisa PT [facility] Attending History and physical note* Grace Richardson DO - 02/02/2025 12:30 PM EDT UPDATED HISTORY AND PHYSICAL EXAMINATION SERVICE DATE: 02/02/2025 SERVICE TIME: 11:31 AM PHYSICAL EXAM MUST BE COMPLETED ON ADMISSION The History and Physical (completed in the past 30 days) has been reviewed and the patient has beenexamined. The contents accurately reflect the patient's condition with the following additions or revisions since the H&P was completed. Examination indicates no changes. This H&P can be found in the attached. SIGNATURE: Grace Richardson DO PATIENT NAME: Mikayla Bertrand DATE: February 02, 2025 TIME: 11:31 AM Cosigned by Anderson Barker DO at 02/02/2025 11:39 AM EDT Associated attestation - Anderson Barker DO - 02/02/2025 11:39 AM EDT Attending Note I evaluated the patient and personally participated in the chinchilla components. I agree with the resident's findings and plan as documented and have discussed the case and management of the patient's carewith the resident. Signature: Anderson Barker DO Date: 02/02/2025 Time: 11:39 AM Source Note - Emilie Rojas, CATALYST UNIT OPERATOR.CORRECTIONAL PROBATION OFFICER - 01/26/2025 8:23 AM EDT Images from the original note were not included. [facility] HISTORY AND PHYSICAL EXAMINATION SERVICE DATE: 01/26/2025 SERVICE TIME: 1:11 PM PRIMARY CARE PHYSICIAN: Carly Callejas MD Assessment Patient has the following medical conditions which may affect gage-operative course: Epilepsy (HCC) Assessment: hx of childhood epilepsy, reports last seizure over 6 years ago, had been cleared by neurology. No long taking any anti seizure medications. Narcolepsy without cataplexy Assessment: Controlled with methylphenidate. POTS (postural orthostatic tachycardia syndrome) Assessment: stable on propranolol. managed and monitored by neurology. Denies recent new or worsening symptoms or syncope. Last OV below: [facility] on 12/21/2024 Elevated blood pressure reading without diagnosis of hypertension Assessment: BP can be labile D/t POTS - on propranolol which controls this. Liver hemangioma Assessment: Incidental finding on imaging. Following with PCP. Mild intermittent asthma without complication Assessment: denies hx of asthma. No current inhalers or treatments or respiratory symptoms. Stable. Chronic superficial gastritis without bleeding Assessment: managed and monitored by GI, scheduled for EGD. GERD (gastroesophageal reflux disease) Assessment: treated with BID pepcid. PONV (postoperative nausea and vomiting) Assessment: requests premedication of zofran. Hypermobility arthralgia Assessment: following rheumatology Last OV 01/24/25 below: Note Details Delayed emergence from anesthesia Assessment: hx of slow emergence, denies need for admission post- surgery unplanned in the past. Gastroparesis Assessment: rx as needed Chronic idiopathic constipation Assessment: controlled on rx Hereditary angioedema (HCC) Assessment: recently dx, following allergy, Started on Orladeyo on November 04 and uses Icatibant for acute treatment of severe leg swelling, abdominal pain, and lip swelling; [facility] on 12/01/2024 KHRIS positive Assessment: +KHRIS +TOOL LAPPER HAND (low positive - repeat NEGATIVE) ANESTHESIA FINDINGS: Intubation History: No history of difficult intubation Significant Anesthesia Considerations: potential slow emergence Airway History: No history of difficult airway Morrow Activity Status Index: METS: Climb a flight of stairs or walk up a hill (5.50 METs) DASI Score: 5.5 Patient denies any chest pain or undue shortness of breath with the above physical activity. Clinical Frailty Scale: 3. Well, with treated comorbid disease STOP-Bang Score: Denies snoring loudly Denies feeling tired, fatigued, or sleepy during the daytime Has not been observed to stop breathing or choking/gasping during sleep Denies having high blood pressure BMI less than or equal to 35 kg/m^2 Patient 50 years old or younger Does not have a large neck Non-male patient STOP-Bang Score: 0 [id number] Score: Age: <65 Sex: female CHF history: No Hypertension history: No Vascular disease history: No Diabetes history: No [id number] Score: ARISCAT Score: Age: <=50 Preoperative SpO2: >=96% Respiratory infection in the last month: No Preoperative anemia: No Surgical incision: peripheral Duration of surgery: <2 hrs Emergency procedure: No ARISCAT Score: 0 I - PHYSICAL EVALUATION AIRWAY Patient intubated: No. Tracheostomy tube not present Mallampati: I. TM distance: >3 FB. Neck ROM: full ROM without neurological symptoms. Mouth opening: adequate. Short neck: no. Thick neck: no Ng present: no Lip Bite Test: I Microretrognathia/Micronagthia/Recessed Chin: No DENTAL Dental findings: teeth intact. II - ANESTHESIA PLAN Anesthetic Plan: other Beta Alvino Monitoring Plan Post Procedure Analgesic Plan Prepared for Surgery: optimally prepared for surgery. CONSULTS: Patient does not require consults for optimization at this time Planned Anesthetic: other anesthesia choice The Following Tests/Procedures Have Been Initiated: Orders Placed This Encounter berotralstat 110 mg cap Sig: Take 110 mg by mouth once daily. REASON FOR VISIT: Mikayla Bertrand is a 24 year old female who is scheduled for EGD at the request of Dr. Anderson Barker for consultation. My final recommendation will be communicated back to the requesting physician by way of shared medical record or letter. Subjective The patient has the following: COVID-19 Immunization Status This patient has no relevant Health Maintenance data. CHIEF COMPLAINT: Pre-op exam HPI: Mikayla Bertrand is a 24 year old seen for PAC due to scheduled above surgery because of GP. 01/11/25, Dr. Anderson Barker HISTORY OF PRESENT ILLNESS Mikayla Bertrand is a 24 year old female who comes in today for surgical evaluation for management of gastroparesis. The patient has been evaluated thoroughly including an EGD, and gastric emptying study. Mikayla Bertrand is a 24-year-old female with a history of chronic sinusitis, epilepsy, GERD, autoimmune gastritis, HTN, narcolepsy, and POTS, presenting for an initial surgical consultation regarding medically refractory idiopathic gastroparesis. Mikayla has a history of ongoing GI issues dating back to her mid to late teens, with initial symptoms of emesis beginning in high school. She has a known gluten sensitivity and has been maintained on a gluten-free diet, which provided some relief initially. However, she reports a significant escalation of symptoms over the past 2-3 years, leading to multiple symptom flares requiring hospitalization. She was previously treated with Reglan but developed an allergy, and erythromycin was ineffective. She also has lifelong constipation, managed with Linzess 290 mcg and Miralax. She is currently under the care of Dr. Bailey for primary GI management and has been following up with Dr. Perkins and his PA, [facility]. She had an abnormal gastric emptying study in January 2024, demonstrating 81% retention at 4 hours. In August, she underwent a pyloric dilation performed by Dr. Muhammad, which provided temporary relief, allowing her to eat the next day. However, she experienced a severe flare approximately 3 weeks ago, requiring a full bowel prep and increased use of Zofran. Duringthis flare, she was on a liquid diet and experienced intermittent diarrhea. She continues to take Linzess and Miralax but reports not having a bowel movement for 2 days. She notes that without Linzess, she would not have bowel movements at all. She also reports RUQ pain and typically has daily bowel movements between flare-ups. Her current top three GI issues are nausea, emesis, and constipation. She follows a diet low in fatand high in protein, avoids fresh vegetables except for occasional red peppers, and does not consume steak or pork chops. Despite these dietary modifications, she continues to experience severe nausea, emesis of undigested food, anorexia, and bloating. She rates her symptoms over the past month or two as follows: nausea 3-4, retching or dry heaves 1-2, emesis 1, sensation of stomach fullness 4, inability to finish an appropriate-sized meal 2, feeling excessively full after eating 3-4, generalized anorexia 2, sensation of bloating 2, and visible abdominal distension 3. She denies the use of tobacco, nicotine, marijuana, or THC products. She has a history of a salpingectomy but has not had her gallbladder or appendix removed. 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 REVIEW OF SYSTEMS: General: No weight loss, malaise or fevers. Neurological: +POTS, following [facility] +narc, on rx Positive for: seizures (remote childhood hx, last known seizure 16yo). Negative for: cerebral palsy, WIND DEVELOPMENT DIRECTOR tumor, delirium, headaches, hemiplegia, impaired sensorium, multiple sclerosis, Parkinson's disease, peripheral neuropathy, TIA and strokes. Respiratory: No history of current cough or dyspnea, or pneumonia in the past 6 weeks. No history of respiratory/pulmonary symptoms or problems. Cardiovascular: No history of HTN requiring medication, no history of angina, CHF, GA, cardiac surgery or stents. Denies rest pain, gangrene or revascularization/amputation for PVD. No history of cardiovascular symptoms or problems. GI: See HPI. +GP +constipation, on rx Positive for: GERD and liver disease (lesion, under surveillance, pending hep consult) Negative for: dysphagia and ETOH >2 drinks/day. : No history of dysuria, frequency or incontinence, stones or chronic kidney disease. No difficulty urinating, nocturia > 1 time per night or hematuria. LINING CUTTER: Negative for abnormal vaginal bleeding, abnormal vaginal discharge. Endocrine: No history of diabetes. Has not taken steroids within the past 30 days. No history of endocrinological symptoms or problems. Hematology: Positive for: anemia (hx) and iron deficiency anemia (IV venofer). Negative for: transfusion of at least 4 units within 72 hours prior to surgery and chronic anti-coagulation/platelet meds. Oncology: No history of CA metastasis, chemo within 30 days, or radiotherapy within 90 days. No history of oncological symptoms or problems. Psych: No history of psychiatric symptoms or problems. Musculoskeletal: +EDS +KHRIS positive Negative for: rheumatoid arthritis. Skin: +angioedema, on rx Implanted Devices: No implanted devices. 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) PMH - PAST MEDICAL HISTORY OF seizure [...] TONSIL AND ADENOI UNDER AGE 14 02/12/2010 SALPINGECTOMY Bilateral FAMILY HISTORY Problem Relation Age of Onset Graves Disease Mother Heart Mother SVT Allergies Father Asthma Brother Allergies Maternal Grandmother Hypertension Maternal Grandfather Allergies Maternal Grandfather Heart Maternal Grandfather mat side/pat side Breast Cancer Paternal Grandmother No Known Problems Paternal Grandfather Anesthesia Problems No Family History Malig Hyperthermia No Family History Social History Tobacco Use Smoking status: Never Passive exposure: Never Smokeless tobacco: Never Vaping Use Vaping status: Never Used Substance Use Topics Alcohol use: No Drug use: No Prior to Admission medications as of 02/01/25 1218 Medication Sig Last Dose Taking berotralstat 110 mg cap Take 110 mg by mouth once daily. Yes predniSONE (DELTASONE) 10 mg tablet Take 3 tablets by mouth once daily for 3 days, THEN 2 tablets once daily for 3 days, THEN 1.5 tablets once daily for 3 days, THEN 1 tablet once daily for 3 days, THEN 0.5 tablets once daily for 3 days. Patient taking differently: Take 3 tablets by mouth once daily for 3 days, THEN 2 tablets once daily for 3 days, THEN 1.5 tablets once daily for 3 days, THEN 1 tablet once daily for 3 days, THEN 0.5 tablets once daily for 3 days. Yes propranolol ER (INDERAL LA) 60 mg 24 hr capsule Take 1 capsule by mouth once daily. Yes linaCLOtide (LINZESS) 290 mcg capsule Take 1 capsule by mouth daily at 6 am. Take capsule on an empty stomach at least 30 minutes before a meal at the same time each day. Capsule should be swallowed whole. DO NOT chew or crush. Yes hydrOXYchloroQUINE (PLAQUENIL) 200 mg tablet Take 1 tablet by mouth once daily. Yes meloxicam (MOBIC) 15 mg tablet Take 1 tablet by mouth once daily. Patient taking differently: Take 15 mg by mouth once daily as needed for pain. Yes icatibant (FIRAZYR) 30 mg/3 mL injection Inject 3 mL subcutaneously three times a day as needed (for acute swelling episodes). Yes famotidine (PEPCID) 20 mg tablet Take 1 tablet by mouth two times a day. Yes potassium chloride SR (MICRO-K) 10 mEq CR capsule Take 10 mEq by mouth. Yes methylphenidate ER (CONCERTA) 18 mg biphasic tablet Take 1 tablet by mouth every morning for 30 days. Yes MULTIVITAMIN ORAL Take 1 tablet by mouth once daily. Yes No medication comments found. ALLERGIES Allergen Reactions Latex Hives, Swelling Contact allergy, hives Penicillins Rash Benadryl [Diphenhyd* Mental Status Change agitation Droperidol Other: See Comments akathesia Compazine [Prochlor* Intolerance Restlessness, agitation Gluten GI Upset Versed [Midazolam H* Mental Status Change Pulling out IV's, extremely confused and restless, getting on hands and knees Objective PHYSICAL EXAM: General: alert and oriented (x3) and healthy appearance. Pertinent negatives noted - not distressed. Skin: normal color, no rash or lesions. HEENT: EOM intact and pupils equal round. Pertinent negatives noted - no carotid bruit. Cardiovascular: regular rate and rhythm, normal S1 and S2, no rub, murmurs, or gallop. Respiratory: normal breath sounds, no wheezes or crackles. No chest wall deformity or tenderness. Abdomen: soft. Pertinent negatives noted - not tender. Extremities: no deformity, no edema or tenderness, no joint swelling or clubbing. Neurological: normal cognition and motor skills. Gait normal. No weakness or sensory deficit. PAIN ASSESSMENT: VITALS: BP 104/70 Pulse 83 Resp 16 Ht 5' 2 (1.58m) Wt 124 lb 6.4 oz (56.4kg) SpO2 98% LMP 08/25/2024 BMI 22.75 kg/(m^2). Diagnostic tests reviewed for today's visit: Lab Value Units Date High Low HB 11.8 g/dL 01/10/2025 15.5 11.5 HCT 36.6 % 01/10/2025 46.0 36.0 WBC 6.55 k/uL 01/10/2025 11.00 3.70 PLT 173 k/uL 01/10/2025 400 150 NA 139 mmol/L 01/10/2025 144 136 K 4.2 mmol/L 01/10/2025 5.1 3.7 GLUC 80 mg/dL 01/10/2025 99 74 BUN 13 mg/dL 01/10/2025 21 7 CREAT 0.69 mg/dL 01/10/2025 0.96 0.58 PTSEC 11.3 sec 11/04/2024 13.0 9.7 INR 1.0 no uni* 11/04/2024 1.3 0.9 APTT 29.8 sec 11/04/2024 32.4 23.0 ALT 19 U/L 01/10/2025 38 7 AST 20 U/L 01/10/2025 35 13 TBILI 0.2 mg/dL 01/10/2025 1.3 0.2 TSH No results within date range. Lab Value Units Date High Low HCGQT No results within date range. UHCG No results within date range. HCG, BODY* No results within date range. Lab Value Units Date High Low ABORHD No results within date range. ABSCREEN No results within date range. Hemoglobin A1C (%) Date Value 03/01/2024 4.9 09/20/2023 4.9 No results found for this or any previous visit (from the past 8760 hours). No results found for this or any previous visit (from the past 31545 hours). Instructions Given to Patient: Instructions located in the after visit summary. Patient given verbal and written preop instructions and voices comprehension and compliance. SIGNATURE: Emilie Rojas APRN.CNP PATIENT NAME: Mikayla Bertrand DATE: January 26, 2025 TIME: 8:23 AM PAGER/CONTACT #: [facility] Work Phone: [phone] [phone] History and physical note* Grace Richardson DO - 02/02/2025 12:30 PM EDT UPDATED HISTORY AND PHYSICAL EXAMINATION SERVICE DATE: 02/02/2025 SERVICE TIME: 11:31 AM PHYSICAL EXAM MUST BE COMPLETED ON ADMISSION The History and Physical (completed in the past 30 days) has been reviewed and the patient has beenexamined. The contents accurately reflect the patient's condition with the following additions or revisions since the H&P was completed. Examination indicates no changes. This H&P can be found in the attached. SIGNATURE: Grace Richardson DO PATIENT NAME: Mikayla Bertrand DATE: February 02, 2025 TIME: 11:31 AM Cosigned by Anderson Barker DO at 02/02/2025 11:39 AM EDT Associated attestation - Anderson Barker DO - 02/02/2025 11:39 AM EDT Attending Note I evaluated the patient and personally participated in the chinchilla components. I agree with the resident's findings and plan as documented and have discussed the case and management of the patient's carewith the resident. Signature: Anderson Barker DO Date: 02/02/2025 Time: 11:39 AM Source Note - Emilie Rojas APRN.CNP - 01/26/2025 8:23 AM EDT Images from the original note were not included. [facility] HISTORY AND PHYSICAL EXAMINATION SERVICE DATE: 01/26/2025 SERVICE TIME: 1:11 PM PRIMARY CARE PHYSICIAN: Carly Callejas MD Assessment Patient has the following medical conditions which may affect gage-operative course: Epilepsy (HCC) Assessment: hx of childhood epilepsy, reports last seizure over 6 years ago, had been cleared by neurology. No long taking any anti seizure medications. Narcolepsy without cataplexy Assessment: Controlled with methylphenidate. POTS (postural orthostatic tachycardia syndrome) Assessment: stable on propranolol. managed and monitored by neurology. Denies recent new or worsening symptoms or syncope. Last OV below: [facility] on 12/21/2024 Elevated blood pressure reading without diagnosis of hypertension Assessment: BP can be labile D/t POTS - on propranolol which controls this. Liver hemangioma Assessment: Incidental finding on imaging. Following with PCP. Mild intermittent asthma without complication Assessment: denies hx of asthma. No current inhalers or treatments or respiratory symptoms. Stable. Chronic superficial gastritis without bleeding Assessment: managed and monitored by GI, scheduled for EGD. GERD (gastroesophageal reflux disease) Assessment: treated with BID pepcid. PONV (postoperative nausea and vomiting) Assessment: requests premedication of zofran. Hypermobility arthralgia Assessment: following rheumatology Last OV 01/24/25 below: Note Details Delayed emergence from anesthesia Assessment: hx of slow emergence, denies need for admission post- surgery unplanned in the past. Gastroparesis Assessment: rx as needed Chronic idiopathic constipation Assessment: controlled on rx Hereditary angioedema (HCC) Assessment: recently dx, following allergy, Started on Orladeyo on November 04 and uses Icatibant for acute treatment of severe leg swelling, abdominal pain, and lip swelling; [facility] on 12/01/2024 KHRIS positive Assessment: +KHRIS +TOOL LAPPER HAND (low positive - repeat NEGATIVE) ANESTHESIA FINDINGS: Intubation History: No history of difficult intubation Significant Anesthesia Considerations: potential slow emergence Airway History: No history of difficult airway Morrow Activity Status Index: METS: Climb a flight of stairs or walk up a hill (5.50 METs) DASI Score: 5.5 Patient denies any chest pain or undue shortness of breath with the above physical activity. Clinical Frailty Scale: 3. Well, with treated comorbid disease STOP-Bang Score: Denies snoring loudly Denies feeling tired, fatigued, or sleepy during the daytime Has not been observed to stop breathing or choking/gasping during sleep Denies having high blood pressure BMI less than or equal to 35 kg/m^2 Patient 50 years old or younger Does not have a large neck Non-male patient STOP-Bang Score: 0 [id number] Score: Age: <65 Sex: female CHF history: No Hypertension history: No Vascular disease history: No Diabetes history: No [id number] Score: ARISCAT Score: Age: <=50 Preoperative SpO2: >=96% Respiratory infection in the last month: No Preoperative anemia: No Surgical incision: peripheral Duration of surgery: <2 hrs Emergency procedure: No ARISCAT Score: 0 I - PHYSICAL EVALUATION AIRWAY Patient intubated: No. Tracheostomy tube not present Mallampati: I. TM distance: >3 FB. Neck ROM: full ROM without neurological symptoms. Mouth opening: adequate. Short neck: no. Thick neck: no Ng present: no Lip Bite Test: I Microretrognathia/Micronagthia/Recessed Chin: No DENTAL Dental findings: teeth intact. II - ANESTHESIA PLAN Anesthetic Plan: other Beta Alvino Monitoring Plan Post Procedure Analgesic Plan Prepared for Surgery: optimally prepared for surgery. CONSULTS: Patient does not require consults for optimization at this time Planned Anesthetic: other anesthesia choice The Following Tests/Procedures Have Been Initiated: Orders Placed This Encounter berotralstat 110 mg cap Sig: Take 110 mg by mouth once daily. REASON FOR VISIT: Mikayla Bertrand is a 24 year old female who is scheduled for EGD at the request of Dr. Anderson Barker for consultation. My final recommendation will be communicated back to the requesting physician by way of shared medical record or letter. Subjective The patient has the following: COVID-19 Immunization Status This patient has no relevant Health Maintenance data. CHIEF COMPLAINT: Pre-op exam HPI: Mikayla Bertrand is a 24 year old seen for PAC due to scheduled above surgery because of GP. 01/11/25, Dr. Anderson Barker HISTORY OF PRESENT ILLNESS Mikayla Bertrand is a 24 year old female who comes in today for surgical evaluation for management of gastroparesis. The patient has been evaluated thoroughly including an EGD, and gastric emptying study. Mikayla Bertrand is a 24-year-old female with a history of chronic sinusitis, epilepsy, GERD, autoimmune gastritis, HTN, narcolepsy, and POTS, presenting for an initial surgical consultation regarding medically refractory idiopathic gastroparesis. Mikayla has a history of ongoing GI issues dating back to her mid to late teens, with initial symptoms of emesis beginning in high school. She has a known gluten sensitivity and has been maintained on a gluten-free diet, which provided some relief initially. However, she reports a significant escalation of symptoms over the past 2-3 years, leading to multiple symptom flares requiring hospitalization. She was previously treated with Reglan but developed an allergy, and erythromycin was ineffective. She also has lifelong constipation, managed with Linzess 290 mcg and Miralax. She is currently under the care of Dr. Bailey for primary GI management and has been following up with Dr. Perkins and his PA, [facility]. She had an abnormal gastric emptying study in January 2024, demonstrating 81% retention at 4 hours. In August, she underwent a pyloric dilation performed by Dr. Muhammad, which provided temporary relief, allowing her to eat the next day. However, she experienced a severe flare approximately 3 weeks ago, requiring a full bowel prep and increased use of Zofran. Duringthis flare, she was on a liquid diet and experienced intermittent diarrhea. She continues to take Linzess and Miralax but reports not having a bowel movement for 2 days. She notes that without Linzess, she would not have bowel movements at all. She also reports RUQ pain and typically has daily bowel movements between flare-ups. Her current top three GI issues are nausea, emesis, and constipation. She follows a diet low in fatand high in protein, avoids fresh vegetables except for occasional red peppers, and does not consume steak or pork chops. Despite these dietary modifications, she continues to experience severe nausea, emesis of undigested food, anorexia, and bloating. She rates her symptoms over the past month or two as follows: nausea 3-4, retching or dry heaves 1-2, emesis 1, sensation of stomach fullness 4, inability to finish an appropriate-sized meal 2, feeling excessively full after eating 3-4, generalized anorexia 2, sensation of bloating 2, and visible abdominal distension 3. She denies the use of tobacco, nicotine, marijuana, or THC products. She has a history of a salpingectomy but has not had her gallbladder or appendix removed. 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 REVIEW OF SYSTEMS: General: No weight loss, malaise or fevers. Neurological: +POTS, following [facility] +narc, on rx Positive for: seizures (remote childhood hx, last known seizure 16yo). Negative for: cerebral palsy, WIND DEVELOPMENT DIRECTOR tumor, delirium, headaches, hemiplegia, impaired sensorium, multiple sclerosis, Parkinson's disease, peripheral neuropathy, TIA and strokes. Respiratory: No history of current cough or dyspnea, or pneumonia in the past 6 weeks. No history of respiratory/pulmonary symptoms or problems. Cardiovascular: No history of HTN requiring medication, no history of angina, CHF, GA, cardiac surgery or stents. Denies rest pain, gangrene or revascularization/amputation for PVD. No history of cardiovascular symptoms or problems. GI: See HPI. +GP +constipation, on rx Positive for: GERD and liver disease (lesion, under surveillance, pending hep consult) Negative for: dysphagia and ETOH >2 drinks/day. : No history of dysuria, frequency or incontinence, stones or chronic kidney disease. No difficulty urinating, nocturia > 1 time per night or hematuria. LINING CUTTER: Negative for abnormal vaginal bleeding, abnormal vaginal discharge. Endocrine: No history of diabetes. Has not taken steroids within the past 30 days. No history of endocrinological symptoms or problems. Hematology: Positive for: anemia (hx) and iron deficiency anemia (IV venofer). Negative for: transfusion of at least 4 units within 72 hours prior to surgery and chronic anti-coagulation/platelet meds. Oncology: No history of CA metastasis, chemo within 30 days, or radiotherapy within 90 days. No history of oncological symptoms or problems. Psych: No history of psychiatric symptoms or problems. Musculoskeletal: +EDS +KHRIS positive Negative for: rheumatoid arthritis. Skin: +angioedema, on rx Implanted Devices: No implanted devices. 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) PMH - PAST MEDICAL HISTORY OF seizure [...] TONSIL AND ADENOI UNDER AGE 14 02/12/2010 SALPINGECTOMY Bilateral FAMILY HISTORY Problem Relation Age of Onset Graves Disease Mother Heart Mother SVT Allergies Father Asthma Brother Allergies Maternal Grandmother Hypertension Maternal Grandfather Allergies Maternal Grandfather Heart Maternal Grandfather mat side/pat side Breast Cancer Paternal Grandmother No Known Problems Paternal Grandfather Anesthesia Problems No Family History Malig Hyperthermia No Family History Social History Tobacco Use Smoking status: Never Passive exposure: Never Smokeless tobacco: Never Vaping Use Vaping status: Never Used Substance Use Topics Alcohol use: No Drug use: No Prior to Admission medications as of 02/01/25 1218 Medication Sig Last Dose Taking berotralstat 110 mg cap Take 110 mg by mouth once daily. Yes predniSONE (DELTASONE) 10 mg tablet Take 3 tablets by mouth once daily for 3 days, THEN 2 tablets once daily for 3 days, THEN 1.5 tablets once daily for 3 days, THEN 1 tablet once daily for 3 days, THEN 0.5 tablets once daily for 3 days. Patient taking differently: Take 3 tablets by mouth once daily for 3 days, THEN 2 tablets once daily for 3 days, THEN 1.5 tablets once daily for 3 days, THEN 1 tablet once daily for 3 days, THEN 0.5 tablets once daily for 3 days. Yes propranolol ER (INDERAL LA) 60 mg 24 hr capsule Take 1 capsule by mouth once daily. Yes linaCLOtide (LINZESS) 290 mcg capsule Take 1 capsule by mouth daily at 6 am. Take capsule on an empty stomach at least 30 minutes before a meal at the same time each day. Capsule should be swallowed whole. DO NOT chew or crush. Yes hydrOXYchloroQUINE (PLAQUENIL) 200 mg tablet Take 1 tablet by mouth once daily. Yes meloxicam (MOBIC) 15 mg tablet Take 1 tablet by mouth once daily. Patient taking differently: Take 15 mg by mouth once daily as needed for pain. Yes icatibant (FIRAZYR) 30 mg/3 mL injection Inject 3 mL subcutaneously three times a day as needed (for acute swelling episodes). Yes famotidine (PEPCID) 20 mg tablet Take 1 tablet by mouth two times a day. Yes potassium chloride SR (MICRO-K) 10 mEq CR capsule Take 10 mEq by mouth. Yes methylphenidate ER (CONCERTA) 18 mg biphasic tablet Take 1 tablet by mouth every morning for 30 days. Yes MULTIVITAMIN ORAL Take 1 tablet by mouth once daily. Yes No medication comments found. ALLERGIES Allergen Reactions Latex Hives, Swelling Contact allergy, hives Penicillins Rash Benadryl [Diphenhyd* Mental Status Change agitation Droperidol Other: See Comments akathesia Compazine [Prochlor* Intolerance Restlessness, agitation Gluten GI Upset Versed [Midazolam H* Mental Status Change Pulling out IV's, extremely confused and restless, getting on hands and knees Objective PHYSICAL EXAM: General: alert and oriented (x3) and healthy appearance. Pertinent negatives noted - not distressed. Skin: normal color, no rash or lesions. HEENT: EOM intact and pupils equal round. Pertinent negatives noted - no carotid bruit. Cardiovascular: regular rate and rhythm, normal S1 and S2, no rub, murmurs, or gallop. Respiratory: normal breath sounds, no wheezes or crackles. No chest wall deformity or tenderness. Abdomen: soft. Pertinent negatives noted - not tender. Extremities: no deformity, no edema or tenderness, no joint swelling or clubbing. Neurological: normal cognition and motor skills. Gait normal. No weakness or sensory deficit. PAIN ASSESSMENT: VITALS: BP 104/70 Pulse 83 Resp 16 Ht 5' 2 (1.58m) Wt 124 lb 6.4 oz (56.4kg) SpO2 98% LMP 08/25/2024 BMI 22.75 kg/(m^2). Diagnostic tests reviewed for today's visit: Lab Value Units Date High Low HB 11.8 g/dL 01/10/2025 15.5 11.5 HCT 36.6 % 01/10/2025 46.0 36.0 WBC 6.55 k/uL 01/10/2025 11.00 3.70 PLT 173 k/uL 01/10/2025 400 150 NA 139 mmol/L 01/10/2025 144 136 K 4.2 mmol/L 01/10/2025 5.1 3.7 GLUC 80 mg/dL 01/10/2025 99 74 BUN 13 mg/dL 01/10/2025 21 7 CREAT 0.69 mg/dL 01/10/2025 0.96 0.58 PTSEC 11.3 sec 11/04/2024 13.0 9.7 INR 1.0 no uni* 11/04/2024 1.3 0.9 APTT 29.8 sec 11/04/2024 32.4 23.0 ALT 19 U/L 01/10/2025 38 7 AST 20 U/L 01/10/2025 35 13 TBILI 0.2 mg/dL 01/10/2025 1.3 0.2 TSH No results within date range. Lab Value Units Date High Low HCGQT No results within date range. UHCG No results within date range. HCG, BODY* No results within date range. Lab Value Units Date High Low ABORHD No results within date range. ABSCREEN No results within date range. Hemoglobin A1C (%) Date Value 03/01/2024 4.9 09/20/2023 4.9 No results found for this or any previous visit (from the past 8760 hours). No results found for this or any previous visit (from the past 97175 hours). Instructions Given to Patient: Instructions located in the after visit summary. Patient given verbal and written preop instructions and voices comprehension and compliance. SIGNATURE: Emilie Rojas APRN.CNP PATIENT NAME: Mikayla Bertrand DATE: January 26, 2025 TIME: 8:23 AM PAGER/CONTACT #: [facility] NoteHNO ID: [id number] Author: AGUSTÍN ARAGON RN Service: ? Author Type: Registered Nurse Type: Nursing Progress Note Filed: 02/02/2025 11:28 Note Text: Pt is doing well and has her call light.[facility]07-30-2025 Nurse Note* Agustín Aragon RN - 02/02/2025 11:27 AM EDT Pt is doing well and has her call light. [facility]07-30-2025 Nurse Note* Agustín Aragon RN - 02/02/2025 11:27 AM EDT Pt is doing well and has her call light. documented in this [facility]Martin [facility] History of Present illness Narrative* Moody Lisa, PT - 01/26/2025 1:07 PM EDT Images from the original note were not included. Episode Visit Count: 1 Therapist That Will Accept/Oversee The Plan Of Care: Moodyemil Lisa Start of Care Date: 01/26/25 Onset Date: 07/07/24 Patient Identified by Name and Date of : Yes REHABILITATION AND SPORTS THERAPY PHYSICAL THERAPY EVALUATION PLAN OF CARE: Assessment: Mikaylaelma Bertrand presents with diagnosis of joint hypermobility disorder that interferes with walking in the community, stair negotiation, bending, heavy exertion, lifting, physical activities, recreational activities, running . The patient presents with impairments in ADL's, overall function, strength, and symptom management. PROMIS (Patient-Reported Outcomes Measurement Information System) scores were reviewed and identified as within normal limits. Prognosis for therapy is Fair due to: clinical presentation, chronic nature of impairments, multiple co- morbidities, limited tolerance to activity . The patient will benefit from skilled therapy services to meet the goals established for this plan of care as noted below. Goals for Episode of Care: established 01/26/25 [place] in home exercise program. Patient will decrease pain rating by 2 points to meet minimal clinical important difference for numeric pain rating scale. Patient will demonstrate increase in shoulder and hip strength to 4+ to 5/5 during manual muscle testing in order to improve function for basic self-care tasks, home management tasks, leisure / recreation skills, and prior functional tasks. Perform walking for recreational, ADLs, and IADLs with decreased report of symptoms/pain in 6-8 weeks. Perform self care without pain. Time Frame for Goals and Treatment : 03/29/25 Planned Interventions, Frequency, and Duration: Current Frequency: 1x/week Duration: 8 weeks Total Number of Visits Planned: 8 Planned Treatment Interventions: Therapeutic exercise (90329), Neuromuscular re- education (34526), Manual therapy (67604), Therapeutic activities (30991), Self- retirement management (95021), Patient/Family/Caregiver Education, Body Mechanics Training PLAN FOR NEXT VISIT: Assess HEP tolerance, progress or regress as needed Patient demonstrates good understanding of plan of care and treatment. The above goals and plan of care were discussed and agreed upon by patient/family. SUBJECTIVE: Joint, muscle, and peripheral nerve issue issues for years. Hands and wrists arent bad, elbows are only bad with flares, every other joint hurts on a daily basis. Notes that stretching tends to hurt worse and she constantly feels tight. Significant swelling, lack of function, and exercise intolerance. Walking for exercise per tolerance. Functionally active with outdoor chores and things around the house. Shoulders and hips tend to bother her the most. When her calves hurt she knows she is goingto either go into a flare or pay for it the next day. Functional Limitations: walking in the community, stair negotiation, bending, heavy exertion, lifting, physical activities, recreational activities, running Prior Level of Function: Independent without limitations Intake Information: Prescription present Pain: Pain Pain Level: 8 Pain Location: Shoulder - Left, Shoulder - Right, Hip - Left, Hip - Right, Knee - Left, Knee - Right, Back Description: Aching, Sore, Burning Frequency: Intermittent PROMIS Scales 11/01/2024 04/30/2023 Higher is Better Phys Func - T Score 42 (mild dysfunction) 55 (within normal limits) Phys Func - Percentile 21 69 11/01/2024 Lower is Better Pain Interference - T Score 63 (moderate) Pain Interference - Percentile 10 T-Score and Percentile Interpretation T-scores: mean of general population = 50. 5 points is clinically meaningfully difference Percentiles provide an indication of how the patient's score ranks in relation to the general population. Higher percentile rankings indicate better function/quality of life. 50th percentile is the average of the general population and indicates half of respondents had a worse score. OBJECTIVE MEASURES WITH LEVEL OF FUNCTION: LE Flexibility Flexibility: Comments Flexibility Comments: Beighton laxity scale 3/9 (palms on floor, knee extension) UE and Cervical Strength Strength Tested: Shoulder All R UE Strength: 4/5 rtc L UE Strength: 4/5 rtc LE Strength Trunk Strength: 4/5 R LE Strength: 4/5 hip L LE Strength: 4/5 hip Education: Education Learning Preferences: Demonstration, Explanation, Performance Barriers: None Learning/educational needs: Home exercise program, Plan of Care, Changes in Plan of Care, Body Mechanics Education Provided: Yes, see treatment interventions for education provided Education Provided To: Patient Education Mode/Type: Demonstration, Explanation/Discussion, Literature/Printed Materials Response to Education/Teach Back: States/Identifies TREATMENT: PT Treatment Interventions: Therapeutic Exercise, Self-Fdc Management Evaluation Therapeutic Exercise: 1: *Full can 2-3# 3x10/side 2: *GTB ER 3x10/side 3: *GTB IR 3x10/side 4: *SL hip abduction 3x10/side 5: *Clamshells 3x10/side 6: *PPT 3x10, 3-5 sec holds 7: *PPT plus alt toe taps 3x10/side Skilled Intervention: Patient was educated in proper exercise technique and purpose for exercises. Skilled judgment was used in selection of appropriate interventions. Provided written instruction for home exercise program to facilitate proper performance and compliance. Correct performance of therapeutic exercises was facilitated with verbal, visual, and tactile cuing. Self-Fdc Management: 1: Reviewed hypermobility and discussed EDS. Referred to EDS clinic- to ask dcotor for referral. 2: Discussed plan of care, joint protection with hypermobility. Discussed gradual progression, considerations with POTS Skilled Intervention: Skilled judgment in the selection of proper modification for activity of daily living/home management based on clinical presentation, deficits, and needs. Reviewed patient specific diagnosis in relation to activities of daily living/home management. Activity progression based on professional judgement. Billing * Evaluation Low Complexity: 1 Unit Therapeutic Exercise Treatment Minutes: 15 Self-Care/Home Management Treatment Minutes: 14 Skilled Treatment Time Minutes (timed and untimed codes): 45 Total Session Time (minutes): 45 Session Start Time : 1115 Session Stop Time : 1200 Moody Lisa PT * Moody Lisa PT - 01/26/2025 11:44 AM EDT Program_ID:[id number] Access Code: [email or web address] URL: [email or web address] Date: 01-26-2025 Prepared By: Moody Lisa Program Notes Exercises - Scaption with Dumbbells - 1 x daily - 7 x weekly - 3 sets - 10 reps - Shoulder External Rotation with Anchored Resistance - 1 x daily - 7 x weekly - 3 sets - 10 reps - Shoulder Internal Rotation with Resistance - 1 x daily - 7 x weekly - 3 sets - 10 reps - Sidelying Hip Abduction - 1 x daily - 7 x weekly - 3 sets - 10 reps - Clamshell - 1 x daily - 7 x weekly - 3 sets - 10 reps - Supine Posterior Pelvic Tilt - 1 x daily - 7 x weekly - 3 sets - 10 reps - Supine 90/90 Alternating Heel Touches with Posterior Pelvic Tilt - 1 x daily - 7 x weekly - 3 sets - 10 reps [facility] History and physical note * Emilie Rojas, CATALYST UNIT OPERATOR.CORRECTIONAL PROBATION OFFICER - 01/26/2025 8:23 AM EDT Images from the original note were not included. [facility] HISTORY AND PHYSICAL EXAMINATION SERVICE DATE: 01/26/2025 SERVICE TIME: 1:11 PM PRIMARY CARE PHYSICIAN: Carly Callejas MD Assessment Patient has the following medical conditions which may affect gage-operative course: Epilepsy (HCC) Assessment: hx of childhood epilepsy, reports last seizure over 6 years ago, had been cleared by neurology. No long taking any anti seizure medications. Narcolepsy without cataplexy Assessment: Controlled with methylphenidate. POTS (postural orthostatic tachycardia syndrome) Assessment: stable on propranolol. managed and monitored by neurology. Denies recent new or worsening symptoms or syncope. Last OV below: [facility] on 12/21/2024 Elevated blood pressure reading without diagnosis of hypertension Assessment: BP can be labile D/t POTS - on propranolol which controls this. Liver hemangioma Assessment: Incidental finding on imaging. Following with PCP. Mild intermittent asthma without complication Assessment: denies hx of asthma. No current inhalers or treatments or respiratory symptoms. Stable. Chronic superficial gastritis without bleeding Assessment: managed and monitored by GI, scheduled for EGD. GERD (gastroesophageal reflux disease) Assessment: treated with BID pepcid. PONV (postoperative nausea and vomiting) Assessment: requests premedication of zofran. Hypermobility arthralgia Assessment: following rheumatology Last OV 01/24/25 below: Note Details Delayed emergence from anesthesia Assessment: hx of slow emergence, denies need for admission post- surgery unplanned in the past. Gastroparesis Assessment: rx as needed Chronic idiopathic constipation Assessment: controlled on rx Hereditary angioedema (HCC) Assessment: recently dx, following allergy, Started on Orladeyo on November 04 and uses Icatibant for acute treatment of severe leg swelling, abdominal pain, and lip swelling; [facility] on 12/01/2024 KHRIS positive Assessment: +KHRIS +TOOL LAPPER HAND (low positive - repeat NEGATIVE) ANESTHESIA FINDINGS: Intubation History: No history of difficult intubation Significant Anesthesia Considerations: potential slow emergence Airway History: No history of difficult airway Morrow Activity Status Index: METS: Climb a flight of stairs or walk up a hill (5.50 METs) DASI Score: 5.5 Patient denies any chest pain or undue shortness of breath with the above physical activity. Clinical Frailty Scale: 3. Well, with treated comorbid disease STOP-Bang Score: Denies snoring loudly Denies feeling tired, fatigued, or sleepy during the daytime Has not been observed to stop breathing or choking/gasping during sleep Denies having high blood pressure BMI less than or equal to 35 kg/m^2 Patient 50 years old or younger Does not have a large neck Non-male patient STOP-Bang Score: 0 [id number] Score: Age: <65 Sex: female CHF history: No Hypertension history: No Vascular disease history: No Diabetes history: No [id number] Score: ARISCAT Score: Age: <=50 Preoperative SpO2: >=96% Respiratory infection in the last month: No Preoperative anemia: No Surgical incision: peripheral Duration of surgery: <2 hrs Emergency procedure: No ARISCAT Score: 0 I - PHYSICAL EVALUATION AIRWAY Patient intubated: No. Tracheostomy tube not present Mallampati: I. TM distance: >3 FB. Neck ROM: full ROM without neurological symptoms. Mouth opening: adequate. Short neck: no. Thick neck: no Ng present: no Lip Bite Test: I Microretrognathia/Micronagthia/Recessed Chin: No DENTAL Dental findings: teeth intact. II - ANESTHESIA PLAN Anesthetic Plan: other Beta Alvino Monitoring Plan Post Procedure Analgesic Plan Prepared for Surgery: optimally prepared for surgery. CONSULTS: Patient does not require consults for optimization at this time Planned Anesthetic: other anesthesia choice The Following Tests/Procedures Have Been Initiated: Orders Placed This Encounter berotralstat 110 mg cap Sig: Take 110 mg by mouth once daily. REASON FOR VISIT: Mikayla Bertrand is a 24 year old female who is scheduled for EGD at the request of Dr. Anderson Barker for consultation. My final recommendation will be communicated back to the requesting physician by way of shared medical record or letter. Subjective The patient has the following: COVID-19 Immunization Status This patient has no relevant Health Maintenance data. CHIEF COMPLAINT: Pre-op exam HPI: Mikayla Bertrand is a 24 year old seen for PAC due to scheduled above surgery because of GP. 01/11/25, Dr. Anderson Barker HISTORY OF PRESENT ILLNESS Mikayla Bertrand is a 24 year old female who comes in today for surgical evaluation for management of gastroparesis. The patient has been evaluated thoroughly including an EGD, and gastric emptying study. Mikayla Bertrand is a 24-year-old female with a history of chronic sinusitis, epilepsy, GERD, autoimmune gastritis, HTN, narcolepsy, and POTS, presenting for an initial surgical consultation regarding medically refractory idiopathic gastroparesis. Mikayla has a history of ongoing GI issues dating back to her mid to late teens, with initial symptoms of emesis beginning in high school. She has a known gluten sensitivity and has been maintained on a gluten-free diet, which provided some relief initially. However, she reports a significant escalation of symptoms over the past 2-3 years, leading to multiple symptom flares requiring hospitalization. She was previously treated with Reglan but developed an allergy, and erythromycin was ineffective. She also has lifelong constipation, managed with Linzess 290 mcg and Miralax. She is currently under the care of Dr. Bailey for primary GI management and has been following up with Dr. Perkins and his PA, [facility]. She had an abnormal gastric emptying study in January 2024, demonstrating 81% retention at 4 hours. In August, she underwent a pyloric dilation performed by Dr. Muhammad, which provided temporary relief, allowing her to eat the next day. However, she experienced a severe flare approximately 3 weeks ago, requiring a full bowel prep and increased use of Zofran. Duringthis flare, she was on a liquid diet and experienced intermittent diarrhea. She continues to take Linzess and Miralax but reports not having a bowel movement for 2 days. She notes that without Linzess, she would not have bowel movements at all. She also reports RUQ pain and typically has daily bowel movements between flare-ups. Her current top three GI issues are nausea, emesis, and constipation. She follows a diet low in fatand high in protein, avoids fresh vegetables except for occasional red peppers, and does not consume steak or pork chops. Despite these dietary modifications, she continues to experience severe nausea, emesis of undigested food, anorexia, and bloating. She rates her symptoms over the past month or two as follows: nausea 3-4, retching or dry heaves 1-2, emesis 1, sensation of stomach fullness 4, inability to finish an appropriate-sized meal 2, feeling excessively full after eating 3-4, generalized anorexia 2, sensation of bloating 2, and visible abdominal distension 3. She denies the use of tobacco, nicotine, marijuana, or THC products. She has a history of a salpingectomy but has not had her gallbladder or appendix removed. 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 REVIEW OF SYSTEMS: General: No weight loss, malaise or fevers. Neurological: +POTS, following [facility] +narc, on rx Positive for: seizures (remote childhood hx, last known seizure 16yo). Negative for: cerebral palsy, WIND DEVELOPMENT DIRECTOR tumor, delirium, headaches, hemiplegia, impaired sensorium, multiple sclerosis, Parkinson's disease, peripheral neuropathy, TIA and strokes. Respiratory: No history of current cough or dyspnea, or pneumonia in the past 6 weeks. No history of respiratory/pulmonary symptoms or problems. Cardiovascular: No history of HTN requiring medication, no history of angina, CHF, GA, cardiac surgery or stents. Denies rest pain, gangrene or revascularization/amputation for PVD. No history of cardiovascular symptoms or problems. GI: See HPI. +GP +constipation, on rx Positive for: GERD and liver disease (lesion, under surveillance, pending hep consult) Negative for: dysphagia and ETOH >2 drinks/day. : No history of dysuria, frequency or incontinence, stones or chronic kidney disease. No difficulty urinating, nocturia > 1 time per night or hematuria. LINING CUTTER: Negative for abnormal vaginal bleeding, abnormal vaginal discharge. Endocrine: No history of diabetes. Has not taken steroids within the past 30 days. No history of endocrinological symptoms or problems. Hematology: Positive for: anemia (hx) and iron deficiency anemia (IV venofer). Negative for: transfusion of at least 4 units within 72 hours prior to surgery and chronic anti-coagulation/platelet meds. Oncology: No history of CA metastasis, chemo within 30 days, or radiotherapy within 90 days. No history of oncological symptoms or problems. Psych: No history of psychiatric symptoms or problems. Musculoskeletal: +EDS +KHRIS positive Negative for: rheumatoid arthritis. Skin: +angioedema, on rx Implanted Devices: No implanted devices. 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) PMH - PAST MEDICAL HISTORY OF seizure [...] TONSIL AND ADENOI UNDER AGE 14 02/12/2010 SALPINGECTOMY Bilateral FAMILY HISTORY Problem Relation Age of Onset Graves Disease Mother Heart Mother SVT Allergies Father Asthma Brother Allergies Maternal Grandmother Hypertension Maternal Grandfather Allergies Maternal Grandfather Heart Maternal Grandfather mat side/pat side Breast Cancer Paternal Grandmother No Known Problems Paternal Grandfather Anesthesia Problems No Family History Malig Hyperthermia No Family History Social History Tobacco Use Smoking status: Never Passive exposure: Never Smokeless tobacco: Never Vaping Use Vaping status: Never Used Substance Use Topics Alcohol use: No Drug use: No Prior to Admission medications as of 02/01/25 1218 Medication Sig Last Dose Taking berotralstat 110 mg cap Take 110 mg by mouth once daily. Yes predniSONE (DELTASONE) 10 mg tablet Take 3 tablets by mouth once daily for 3 days, THEN 2 tablets once daily for 3 days, THEN 1.5 tablets once daily for 3 days, THEN 1 tablet once daily for 3 days, THEN 0.5 tablets once daily for 3 days. Patient taking differently: Take 3 tablets by mouth once daily for 3 days, THEN 2 tablets once daily for 3 days, THEN 1.5 tablets once daily for 3 days, THEN 1 tablet once daily for 3 days, THEN 0.5 tablets once daily for 3 days. Yes propranolol ER (INDERAL LA) 60 mg 24 hr capsule Take 1 capsule by mouth once daily. Yes linaCLOtide (LINZESS) 290 mcg capsule Take 1 capsule by mouth daily at 6 am. Take capsule on an empty stomach at least 30 minutes before a meal at the same time each day. Capsule should be swallowed whole. DO NOT chew or crush. Yes hydrOXYchloroQUINE (PLAQUENIL) 200 mg tablet Take 1 tablet by mouth once daily. Yes meloxicam (MOBIC) 15 mg tablet Take 1 tablet by mouth once daily. Patient taking differently: Take 15 mg by mouth once daily as needed for pain. Yes icatibant (FIRAZYR) 30 mg/3 mL injection Inject 3 mL subcutaneously three times a day as needed (for acute swelling episodes). Yes famotidine (PEPCID) 20 mg tablet Take 1 tablet by mouth two times a day. Yes potassium chloride SR (MICRO-K) 10 mEq CR capsule Take 10 mEq by mouth. Yes methylphenidate ER (CONCERTA) 18 mg biphasic tablet Take 1 tablet by mouth every morning for 30 days. Yes MULTIVITAMIN ORAL Take 1 tablet by mouth once daily. Yes No medication comments found. ALLERGIES Allergen Reactions Latex Hives, Swelling Contact allergy, hives Penicillins Rash Benadryl [Diphenhyd* Mental Status Change agitation Droperidol Other: See Comments akathesia Compazine [Prochlor* Intolerance Restlessness, agitation Gluten GI Upset Versed [Midazolam H* Mental Status Change Pulling out IV's, extremely confused and restless, getting on hands and knees Objective PHYSICAL EXAM: General: alert and oriented (x3) and healthy appearance. Pertinent negatives noted - not distressed. Skin: normal color, no rash or lesions. HEENT: EOM intact and pupils equal round. Pertinent negatives noted - no carotid bruit. Cardiovascular: regular rate and rhythm, normal S1 and S2, no rub, murmurs, or gallop. Respiratory: normal breath sounds, no wheezes or crackles. No chest wall deformity or tenderness. Abdomen: soft. Pertinent negatives noted - not tender. Extremities: no deformity, no edema or tenderness, no joint swelling or clubbing. Neurological: normal cognition and motor skills. Gait normal. No weakness or sensory deficit. PAIN ASSESSMENT: VITALS: BP 104/70 Pulse 83 Resp 16 Ht 5' 2 (1.58m) Wt 124 lb 6.4 oz (56.4kg) SpO2 98% LMP 08/25/2024 BMI 22.75 kg/(m^2). Diagnostic tests reviewed for today's visit: Lab Value Units Date High Low HB 11.8 g/dL 01/10/2025 15.5 11.5 HCT 36.6 % 01/10/2025 46.0 36.0 WBC 6.55 k/uL 01/10/2025 11.00 3.70 PLT 173 k/uL 01/10/2025 400 150 NA 139 mmol/L 01/10/2025 144 136 K 4.2 mmol/L 01/10/2025 5.1 3.7 GLUC 80 mg/dL 01/10/2025 99 74 BUN 13 mg/dL 01/10/2025 21 7 CREAT 0.69 mg/dL 01/10/2025 0.96 0.58 PTSEC 11.3 sec 11/04/2024 13.0 9.7 INR 1.0 no uni* 11/04/2024 1.3 0.9 APTT 29.8 sec 11/04/2024 32.4 23.0 ALT 19 U/L 01/10/2025 38 7 AST 20 U/L 01/10/2025 35 13 TBILI 0.2 mg/dL 01/10/2025 1.3 0.2 TSH No results within date range. Lab Value Units Date High Low HCGQT No results within date range. UHCG No results within date range. HCG, BODY* No results within date range. Lab Value Units Date High Low ABORHD No results within date range. ABSCREEN No results within date range. Hemoglobin A1C (%) Date Value 03/01/2024 4.9 09/20/2023 4.9 No results found for this or any previous visit (from the past 8760 hours). No results found for this or any previous visit (from the past 96655 hours). Instructions Given to Patient: Instructions located in the after visit summary. Patient given verbal and written preop instructions and voices comprehension and compliance. SIGNATURE: Emilie Rojas APRN.CNP PATIENT NAME: Mikayla Bertrand DATE: January 26, 2025 TIME: 8:23 AM PAGER/CONTACT #: [facility] History and physical note* Emilie Rojas APRN.CNP - 01/26/2025 8:23 AM EDT Images from the original note were not included. [facility] Pre[facility]Anesthesia [facility]ation [facility] HISTORY AND PHYSICAL EXAMINATION SERVICE DATE: 01/26/2025 SERVICE TIME: 1:11 PM PRIMARY CARE PHYSICIAN: Carly Callejas MD Assessment Patient has the following medical conditions which may affect gage-operative course: Epilepsy (HCC) Assessment: hx of childhood epilepsy, reports last seizure over 6 years ago, had been cleared by neurology. No long taking any anti seizure medications. Narcolepsy without cataplexy Assessment: Controlled with methylphenidate. POTS (postural orthostatic tachycardia syndrome) Assessment: stable on propranolol. managed and monitored by neurology. Denies recent new or worsening symptoms or syncope. Last OV below: [facility] on 12/21/2024 Elevated blood pressure reading without diagnosis of hypertension Assessment: BP can be labile D/t POTS - on propranolol which controls this. Liver hemangioma Assessment: Incidental finding on imaging. Following with PCP. Mild intermittent asthma without complication Assessment: denies hx of asthma. No current inhalers or treatments or respiratory symptoms. Stable. Chronic superficial gastritis without bleeding Assessment: managed and monitored by GI, scheduled for EGD. GERD (gastroesophageal reflux disease) Assessment: treated with BID pepcid. PONV (postoperative nausea and vomiting) Assessment: requests premedication of zofran. Hypermobility arthralgia Assessment: following rheumatology Last OV 01/24/25 below: Note Details Delayed emergence from anesthesia Assessment: hx of slow emergence, denies need for admission post- surgery unplanned in the past. Gastroparesis Assessment: rx as needed Chronic idiopathic constipation Assessment: controlled on rx Hereditary angioedema (HCC) Assessment: recently dx, following allergy, Started on Orladeyo on November 04 and uses Icatibant for acute treatment of severe leg swelling, abdominal pain, and lip swelling; [facility] on 12/01/2024 KHRIS positive Assessment: +KHRIS +TOOL LAPPER HAND (low positive - repeat NEGATIVE) ANESTHESIA FINDINGS: Intubation History: No history of difficult intubation Significant Anesthesia Considerations: potential slow emergence Airway History: No history of difficult airway Morrow Activity Status Index: METS: Climb a flight of stairs or walk up a hill (5.50 METs) DASI Score: 5.5 Patient denies any chest pain or undue shortness of breath with the above physical activity. Clinical Frailty Scale: 3. Well, with treated comorbid disease STOP-Bang Score: Denies snoring loudly Denies feeling tired, fatigued, or sleepy during the daytime Has not been observed to stop breathing or choking/gasping during sleep Denies having high blood pressure BMI less than or equal to 35 kg/m^2 Patient 50 years old or younger Does not have a large neck Non-male patient STOP-Bang Score: 0 [id number] Score: Age: <65 Sex: female CHF history: No Hypertension history: No Vascular disease history: No Diabetes history: No [id number] Score: ARISCAT Score: Age: <=50 Preoperative SpO2: >=96% Respiratory infection in the last month: No Preoperative anemia: No Surgical incision: peripheral Duration of surgery: <2 hrs Emergency procedure: No ARISCAT Score: 0 I - PHYSICAL EVALUATION AIRWAY Patient intubated: No. Tracheostomy tube not present Mallampati: I. TM distance: >3 FB. Neck ROM: full ROM without neurological symptoms. Mouth opening: adequate. Short neck: no. Thick neck: no Ng present: no Lip Bite Test: I Microretrognathia/Micronagthia/Recessed Chin: No DENTAL Dental findings: teeth intact. II - ANESTHESIA PLAN Anesthetic Plan: other Beta Alvino Monitoring Plan Post Procedure Analgesic Plan Prepared for Surgery: optimally prepared for surgery. CONSULTS: Patient does not require consults for optimization at this time Planned Anesthetic: other anesthesia choice The Following Tests/Procedures Have Been Initiated: Orders Placed This Encounter berotralstat 110 mg cap Sig: Take 110 mg by mouth once daily. REASON FOR VISIT: Mikayla Bertrand is a 24 year old female who is scheduled for EGD at the request of Dr. Anderson Barker for consultation. My final recommendation will be communicated back to the requesting physician by way of shared medical record or letter. Subjective The patient has the following: COVID-19 Immunization Status This patient has no relevant Health Maintenance data. CHIEF COMPLAINT: Pre-op exam HPI: Mikayla Bertrand is a 24 year old seen for PAC due to scheduled above surgery because of GP. 01/11/25, Dr. Anderson Barker HISTORY OF PRESENT ILLNESS Mikayla Bertrand is a 24 year old female who comes in today for surgical evaluation for management of gastroparesis. The patient has been evaluated thoroughly including an EGD, and gastric emptying study. Mikayla Bertrand is a 24-year-old female with a history of chronic sinusitis, epilepsy, GERD, autoimmune gastritis, HTN, narcolepsy, and POTS, presenting for an initial surgical consultation regarding medically refractory idiopathic gastroparesis. Mikayla has a history of ongoing GI issues dating back to her mid to late teens, with initial symptoms of emesis beginning in high school. She has a known gluten sensitivity and has been maintained on a gluten-free diet, which provided some relief initially. However, she reports a significant escalation of symptoms over the past 2-3 years, leading to multiple symptom flares requiring hospitalization. She was previously treated with Reglan but developed an allergy, and erythromycin was ineffective. She also has lifelong constipation, managed with Linzess 290 mcg and Miralax. She is currently under the care of Dr. Bailey for primary GI management and has been following up with Dr. Perkins and his PA, [facility]. She had an abnormal gastric emptying study in January 2024, demonstrating 81% retention at 4 hours. In August, she underwent a pyloric dilation performed by Dr. Muhammad, which provided temporary relief, allowing her to eat the next day. However, she experienced a severe flare approximately 3 weeks ago, requiring a full bowel prep and increased use of Zofran. Duringthis flare, she was on a liquid diet and experienced intermittent diarrhea. She continues to take Linzess and Miralax but reports not having a bowel movement for 2 days. She notes that without Linzess, she would not have bowel movements at all. She also reports RUQ pain and typically has daily bowel movements between flare-ups. Her current top three GI issues are nausea, emesis, and constipation. She follows a diet low in fatand high in protein, avoids fresh vegetables except for occasional red peppers, and does not consume steak or pork chops. Despite these dietary modifications, she continues to experience severe nausea, emesis of undigested food, anorexia, and bloating. She rates her symptoms over the past month or two as follows: nausea 3-4, retching or dry heaves 1-2, emesis 1, sensation of stomach fullness 4, inability to finish an appropriate-sized meal 2, feeling excessively full after eating 3-4, generalized anorexia 2, sensation of bloating 2, and visible abdominal distension 3. She denies the use of tobacco, nicotine, marijuana, or THC products. She has a history of a salpingectomy but has not had her gallbladder or appendix removed. 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 REVIEW OF SYSTEMS: General: No weight loss, malaise or fevers. Neurological: +POTS, following [facility] +narc, on rx Positive for: seizures (remote childhood hx, last known seizure 16yo). Negative for: cerebral palsy, WIND DEVELOPMENT DIRECTOR tumor, delirium, headaches, hemiplegia, impaired sensorium, multiple sclerosis, Parkinson's disease, peripheral neuropathy, TIA and strokes. Respiratory: No history of current cough or dyspnea, or pneumonia in the past 6 weeks. No history of respiratory/pulmonary symptoms or problems. Cardiovascular: No history of HTN requiring medication, no history of angina, CHF, GA, cardiac surgery or stents. Denies rest pain, gangrene or revascularization/amputation for PVD. No history of cardiovascular symptoms or problems. GI: See HPI. +GP +constipation, on rx Positive for: GERD and liver disease (lesion, under surveillance, pending hep consult) Negative for: dysphagia and ETOH >2 drinks/day. : No history of dysuria, frequency or incontinence, stones or chronic kidney disease. No difficulty urinating, nocturia > 1 time per night or hematuria. LINING CUTTER: Negative for abnormal vaginal bleeding, abnormal vaginal discharge. Endocrine: No history of diabetes. Has not taken steroids within the past 30 days. No history of endocrinological symptoms or problems. Hematology: Positive for: anemia (hx) and iron deficiency anemia (IV venofer). Negative for: transfusion of at least 4 units within 72 hours prior to surgery and chronic anti-coagulation/platelet meds. Oncology: No history of CA metastasis, chemo within 30 days, or radiotherapy within 90 days. No history of oncological symptoms or problems. Psych: No history of psychiatric symptoms or problems. Musculoskeletal: +EDS +KHRIS positive Negative for: rheumatoid arthritis. Skin: +angioedema, on rx Implanted Devices: No implanted devices. 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) PMH - PAST MEDICAL HISTORY OF seizure [...] TONSIL AND ADENOI UNDER AGE 14 02/12/2010 SALPINGECTOMY Bilateral FAMILY HISTORY Problem Relation Age of Onset Graves Disease Mother Heart Mother SVT Allergies Father Asthma Brother Allergies Maternal Grandmother Hypertension Maternal Grandfather Allergies Maternal Grandfather Heart Maternal Grandfather mat side/pat side Breast Cancer Paternal Grandmother No Known Problems Paternal Grandfather Anesthesia Problems No Family History Malig Hyperthermia No Family History Social History Tobacco Use Smoking status: Never Passive exposure: Never Smokeless tobacco: Never Vaping Use Vaping status: Never Used Substance Use Topics Alcohol use: No Drug use: No Prior to Admission medications as of 02/01/25 1218 Medication Sig Last Dose Taking berotralstat 110 mg cap Take 110 mg by mouth once daily. Yes predniSONE (DELTASONE) 10 mg tablet Take 3 tablets by mouth once daily for 3 days, THEN 2 tablets once daily for 3 days, THEN 1.5 tablets once daily for 3 days, THEN 1 tablet once daily for 3 days, THEN 0.5 tablets once daily for 3 days. Patient taking differently: Take 3 tablets by mouth once daily for 3 days, THEN 2 tablets once daily for 3 days, THEN 1.5 tablets once daily for 3 days, THEN 1 tablet once daily for 3 days, THEN 0.5 tablets once daily for 3 days. Yes propranolol ER (INDERAL LA) 60 mg 24 hr capsule Take 1 capsule by mouth once daily. Yes linaCLOtide (LINZESS) 290 mcg capsule Take 1 capsule by mouth daily at 6 am. Take capsule on an empty stomach at least 30 minutes before a meal at the same time each day. Capsule should be swallowed whole. DO NOT chew or crush. Yes hydrOXYchloroQUINE (PLAQUENIL) 200 mg tablet Take 1 tablet by mouth once daily. Yes meloxicam (MOBIC) 15 mg tablet Take 1 tablet by mouth once daily. Patient taking differently: Take 15 mg by mouth once daily as needed for pain. Yes icatibant (FIRAZYR) 30 mg/3 mL injection Inject 3 mL subcutaneously three times a day as needed (for acute swelling episodes). Yes famotidine (PEPCID) 20 mg tablet Take 1 tablet by mouth two times a day. Yes potassium chloride SR (MICRO-K) 10 mEq CR capsule Take 10 mEq by mouth. Yes methylphenidate ER (CONCERTA) 18 mg biphasic tablet Take 1 tablet by mouth every morning for 30 days. Yes MULTIVITAMIN ORAL Take 1 tablet by mouth once daily. Yes No medication comments found. ALLERGIES Allergen Reactions Latex Hives, Swelling Contact allergy, hives Penicillins Rash Benadryl [Diphenhyd* Mental Status Change agitation Droperidol Other: See Comments akathesia Compazine [Prochlor* Intolerance Restlessness, agitation Gluten GI Upset Versed [Midazolam H* Mental Status Change Pulling out IV's, extremely confused and restless, getting on hands and knees Objective PHYSICAL EXAM: General: alert and oriented (x3) and healthy appearance. Pertinent negatives noted - not distressed. Skin: normal color, no rash or lesions. HEENT: EOM intact and pupils equal round. Pertinent negatives noted - no carotid bruit. Cardiovascular: regular rate and rhythm, normal S1 and S2, no rub, murmurs, or gallop. Respiratory: normal breath sounds, no wheezes or crackles. No chest wall deformity or tenderness. Abdomen: soft. Pertinent negatives noted - not tender. Extremities: no deformity, no edema or tenderness, no joint swelling or clubbing. Neurological: normal cognition and motor skills. Gait normal. No weakness or sensory deficit. PAIN ASSESSMENT: VITALS: BP 104/70 Pulse 83 Resp 16 Ht 5' 2 (1.58m) Wt 124 lb 6.4 oz (56.4kg) SpO2 98% LMP 08/25/2024 BMI 22.75 kg/(m^2). Diagnostic tests reviewed for today's visit: Lab Value Units Date High Low HB 11.8 g/dL 01/10/2025 15.5 11.5 HCT 36.6 % 01/10/2025 46.0 36.0 WBC 6.55 k/uL 01/10/2025 11.00 3.70 PLT 173 k/uL 01/10/2025 400 150 NA 139 mmol/L 01/10/2025 144 136 K 4.2 mmol/L 01/10/2025 5.1 3.7 GLUC 80 mg/dL 01/10/2025 99 74 BUN 13 mg/dL 01/10/2025 21 7 CREAT 0.69 mg/dL 01/10/2025 0.96 0.58 PTSEC 11.3 sec 11/04/2024 13.0 9.7 INR 1.0 no uni* 11/04/2024 1.3 0.9 APTT 29.8 sec 11/04/2024 32.4 23.0 ALT 19 U/L 01/10/2025 38 7 AST 20 U/L 01/10/2025 35 13 TBILI 0.2 mg/dL 01/10/2025 1.3 0.2 TSH No results within date range. Lab Value Units Date High Low HCGQT No results within date range. UHCG No results within date range. HCG, BODY* No results within date range. Lab Value Units Date High Low ABORHD No results within date range. ABSCREEN No results within date range. Hemoglobin A1C (%) Date Value 03/01/2024 4.9 09/20/2023 4.9 No results found for this or any previous visit (from the past 8760 hours). No results found for this or any previous visit (from the past 11958 hours). Instructions Given to Patient: Instructions located in the after visit summary. Patient given verbal and written preop instructions and voices comprehension and compliance. SIGNATURE: Emilie Rojas APRN.CNP PATIENT NAME: Mikayla Bertrand DATE: January 26, 2025 TIME: 8:23 AM PAGER/CONTACT #: documented in this encounter[facility]07-[facility] Instructions* Patient Instructions* Emilie Rojas APRN.CNP - 01/26/2025 8:18 AM EDT Images from the original note were not included. [facility] PATIENT PREOPERATIVE INSTRUCTIONS Anderson Barker DO has scheduled you for your procedure at this surgery center: [facility]: [phone] -- [id number] [address]. Please read below carefully for your personalized instructions. Dietary Restrictions: Days before procedure: Day 3-full liquid diet; Day 2-full liquid diet; Day 1- CLEAR LIQUIDS ONLY . (water, clear juices such as apple juice or gatorade, carbonated beverages, clear tea, black coffee, and jello). Nothing by mouth after midnight before procedure, except a small sip of water to take approved medications. Medications: Unless instructed differently below, stay on all of your medications until your surgery. If you start any new medications after today's visit, please contact your surgeon. Pre-Surgery Med Instructions Medication Instructions berotralstat 110 mg cap Do not take the day of surgery predniSONE (DELTASONE) 10 mg tablet Do not take the day of surgery propranolol ER (INDERAL LA) 60 mg 24 hr capsule If you normally take this medication in the morning, take the morning of surgery. linaCLOtide (LINZESS) 290 mcg capsule Do not take the day of surgery hydrOXYchloroQUINE (PLAQUENIL) 200 mg tablet If you normally take this medication in the morning, take the morning of surgery. meloxicam (MOBIC) 15 mg tablet Do not take the day of surgery icatibant (FIRAZYR) 30 mg/3 mL injection Do not take the day of surgery famotidine (PEPCID) 20 mg tablet If you normally take this medication in the morning, take the morning of surgery. potassium chloride SR (MICRO-K) 10 mEq CR capsule If you normally take this medication in the morning, take the morning of surgery. methylphenidate ER (CONCERTA) 18 mg biphasic tablet Do not take the day of surgery MULTIVITAMIN ORAL Do not take the day of surgery If you start any new medications after today's visit, please contact the surgeon's office. If you are currently using a [id number] injectable or oral medication for diabetes or weight loss such as Dulaglutide (Trulicity), Exenatide (Byetta, Bydureon), Liraglutide (Victoza, Saxenda), Semaglutide (Ozempic, Wegovy, Rybelsus), or Tirzepatide (Mounjaro), the medicine should be stopped at least 7 days before surgery. These medicines can cause food to remain in your stomach for a very longtime and increase the risks from surgery and anesthesia. Not stopping the medication for a long enough time may result in your surgery being rescheduled. Blood Thinning Medications: - Stop NSAIDS (Ibuprofen, Advil, Aleve, Motrin, Celebrex, Mobic, etc.) 7 days before surgery, as directed by your surgeon. - Stop Aspirin 7 days before surgery, as directed by your surgeon. - Stop ALL herbal and dietary supplements 7 days before surgery. - You may take Tylenol (Acetaminophen) or any of your pain medications that do not contain aspirin or NSAIDS as needed. Important Reminders: - Candy, mints, and tobacco products are NOT permitted the morning of surgery. - Hearing aids, dentures and glasses may be worn the morning of surgery. - NO jewelry, body piercings, makeup, hairpins or contacts are to be worn the day of surgery. If you develop symptoms such as a fever, cold, or flu, or have other changes to your health within TWO DAYS of scheduled surgery or the morning of surgery, please contact the surgery center above. Personal Belongings: -Please have photo ID and insurance cards. -If you do not have a copy of advance directives on file with us, please bring a copy with you on the day of surgery. - Leave ALL valuables and money at home or with family members. - Please bring high-quality footwear, such as sneakers, to the hospital for ambulating post-surgery. For Outpatient Procedures: - YOU MUST HAVE A RESPONSIBLE ANALYSIS INTERNSHIP TAKE YOU HOME. A AUTOMATIC HEMMER OR DEVELOPMENT EXPERT CANNOT BE MADE A RESPONSIBLE ANALYSIS INTERNSHIP. - We recommend that a responsible person stays with you overnight to take care of you. - You cannot stay in a hotel alone after outpatient surgery. You will not be permitted to have yoursurgery, if you do not have someone to take care of you. Arrival Time for Surgery: - The Surgery Center or hospital where you are having surgery will call the afternoon before surgery (or Friday for Friday surgery) with a scheduled arrival time. - If you have not heard by 4 pm, please contact the surgery center above. Please be aware that emergency situations arise, which may delay or change your surgical time. If this happens, we will notify you as soon as possible and regret any inconvenience. If you already have an Advance Directive, please fax a copy to [phone] or email to for it to be added to your chart. If you do not have an Advance Directive, you can find the appropriate form and more information at [email or web address]. We recommend that youcomplete the Advance Directive form found on the website and bring it with you the day of your surgery. It can be witnessed and scanned into your chart that day. Emilie Rojas APRN.CORRECTIONAL PROBATION OFFICER documented in this encounterMartin [facility]07-21-2025 Telephone encounter Note * Telephone Encounter - Nereida Lin RN - 01/24/2025 10:49 AM EDT Please see pt message and advise. I pended PT eval and tx consult in case you would like pt to do PT. Thank you. [facility]07-[facility] Miscellaneous Notes* Telephone Encounter - Nereiad Lin RN - 01/24/2025 10:49 AM EDT Please see pt message and advise. I pended PT eval and tx consult in case you would like pt to do PT. Thank you. documented in this encounterMartin [facility]07-16-2025 [facility] History of Present illness Narrative* Yung Celeste MD - 01/19/2025 11:19 AM EDT Images from the original note were not included. Rheumatology History & Physical Patient name: Mikayla Bertrand Requesting provider: No att. providers found SUBJECTIVE INITIAL RHEUMATOLOGY VISIT 11/01/24: Ms. Mikayla Bertrand is a 24 year old female who has a past medical history of Acquired mallet toe of left foot, Epilepsy, GERD, Narcolepsy, POTS, autoimmune gastritis with gastroparesis (antiparietal+)who presents for rheumatologic evaluation. Patient is from [place], [place] an has previously been evaluated by Dr Cortés. 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 Allergies: She is allergic to cefdinir, hydrocodone-acetaminophen, latex, penicillins, benadryl [diphenhydramine], droperidol, compazine [prochlorperazine], gluten, and versed [midazolam hcl]. Current Meds: icatibant, propranolol er, famotidine, gabapentin, maalox- lidocaine, ondansetron orally disintegrating, pyridostigmine, linaclotide, potassium chloride sr, methylphenidate er, and multivitamin. Family History: family history includes Allergies in her father, maternal grandfather, and maternalgrandmother; Asthma in her brother; Breast Cancer in her paternal grandmother; Graves Disease in her mother; Heart in her maternal grandfather and mother; Hypertension in her maternal grandfather; NoKnown Problems in her paternal grandfather. Mother has grave's disease Social History: She reports that she has never smoked. She has never been exposed to tobacco smoke.She has never used smokeless tobacco. She reports that she does not drink alcohol and does not use drugs. Labs: Latest Ref Rng & Units 01/10/2025 11/04/2024 09/01/2024 08/29/2024 CBC WBC 3.70 - 11.00 k/uL 6.55 5.53 4.32 3.72 Hemoglobin 11.5 - 15.5 g/dL 11.8 12.7 11.6 11.9 Hematocrit 36.0 - 46.0 % 36.6 38.1 34.7 35.0 Platelet Count 150 - 400 k/uL 173 198 140 155 Abs Neut (ANC) 1.45 - 7.50 k/uL 5.06 3.61 Abs Lymph 1.00 - 4.00 k/uL 0.97 1.53 Latest Ref Rng & Units 01/10/2025 11/04/2024 09/02/2024 09/01/2024 CMP Sodium 136 - 144 mmol/L 139 141 140 140 Potassium 3.7 - 5.1 mmol/L 4.2 4.2 3.7 3.7 Chloride 98 - 107 mmol/L 105 104 105 107 CO2 22 - 30 mmol/L 23 26 25 24 Glucose 74 - 99 mg/dL 80 87 108 86 BUN 7 - 21 mg/dL 13 15 10 9 Creatinine 0.58 - 0.96 mg/dL 0.69 0.65 0.91 0.85 Calcium 8.5 - 10.2 mg/dL 9.0 9.6 9.0 8.7 AST 13 - 35 U/L 20 22 ALT 7 - 38 U/L 19 15 Alkaline Phosphatase 34 - 123 U/L 45 47 Latest Ref Rng & Units 01/10/2025 11/04/2024 07/13/2024 03/01/2024 ESR, WSR WSR 0 - 20 mm/hr 2 2 2 2 Latest Ref Rng & Units 01/10/2025 11/04/2024 07/13/2024 03/01/2024 CRP CRP <0.9 mg/dL 1.4 <0.3 <0.3 <0.3 Latest Ref Rng & Units 11/04/2024 08/25/2024 07/13/2024 C3, C4 C3 86 - 166 mg/dL 128 115 C4 13 - 46 mg/dL 15 14 12 Latest Ref Rng & Units 07/13/2024 03/01/2024 02/02/2024 04/05/2020 CK CK 42 - 196 U/L 65 60 61 80 Latest Ref Rng & Units 07/13/2024 02/04/2024 RF and CCP Rheumatoid Factor <16 IU/mL <10 <10 CCP Antibody IgG Qualitative Negative Negative CCP Antibody, IgG <20 Units <15 Latest Ref Rng & Units 11/04/2024 07/13/2024 10/03/2009 Hepatitis Screen Heparin Anti Xa <0.10 IU/mL Test Not Performed Hep B Core Ab, Total Negative Negative Negative Hep B Surf Ab Qual Positive Positive Hep C Antibody IA Negative Negative Negative Hep B Surface Ag Negative Negative Negative Latest Ref Rng & Units 11/04/2024 10/10/2021 10/03/2021 01/19/2020 TB Screen TB Interpretation Infection with M. tuberculosis complex is unlikely. If latent tuberculosis infection is highly suspected, a negative result does not rule out the infection. Specimens from immunocompromised patients and those <5 years of age may show false negative results. In case of a contactinvestigation, please repeat 8-12 weeks after a known exposure. No evidence of current or previous i nfection with Mycobacterium tuberculosis. TB Result Negative Negative TB INTRADERMAL TEST 0 x 0 - 10 x 10 mm 0.00 mm 0x0mm Latest Ref Rng & Units 11/04/2024 08/31/2024 07/21/2024 07/13/2024 Antibodies KHRIS Negative Positive KHRIS Titer 1:160 KHRIS Pattern Nuclear fine speckled DNA Antibody <=200 IU/mL 03 26 25 Crithidia lucillae Negative Negative Anti-Sm <1.0 AI <0.2 <0.2 Sm Antibody Negative Negative Negative Ribosomal TOOL LAPPER HAND Ab <1.0 AI <0.2 <0.2 Ribosomal TOOL LAPPER HAND Qualitative Negative Negative Negative Chromatin Ab <1.0 AI <0.2 <0.2 Chromatin Ab Qual Negative Negative Negative SSA Antibody Qual Negative Negative Negative Anti-SSA <1.0 AI <0.2 <0.2 Anti-SSB <1.0 AI 0.4 0.4 TOOL LAPPER HAND Antibody QUAL Negative Negative Negative Scleroderma Ab Qual Negative Negative Negative Scl-70 Abs, EIA <1.0 AI <0.2 <0.2 Centromere Ab <1.0 AI <0.2 <0.2 CENTROMERE AB QUAL Negative Negative Negative BARBIE-1 ANTIBODY, IGG <1.0 AI <0.2 <0.2 BARBIE 1 ANTIBODY QUAL Negative Negative Negative Beta 2 Glycoprotein, IgM <20 SMU <9 Beta 2 Glycoprotein 1, IgA <=20 RILEY <10 Cardiolipin Ab, IgG <15.0 GPL <15.0 GPL <9.0 <9.0 Cardiolipin Ab, IgM <12.5 MPL <12.5 MPL <9.0 <9.0 Cardiolipin Ab, IgA <12.0 APL <12.0 APL <9.0 <9.0 PT Sec 9.7 - 13.0 sec 11.3 11.7 PT INR 0.9 - 1.3 1.0 1.1 APTT 23.0 - 32.4 sec 29.8 Platelet Neut <1.9 Seconds 0.5 DRVVT Screen 32.0 - 45.7 seconds 29.5 DRVVT Confirm Ratio <1.32 1.00 DRVVT 1:1 Mix 32.0 - 45.7 seconds 31.5 Hex Phase Screen 34.0 - 51.8 seconds 45.8 Hex Phase Confirm 34.2 - 47.9 seconds 41.7 Hex Phase Delta <7.1 delta seconds 4.1 APTT Screen 24.0 - 35.1 seconds 31.9 Thrombin Time <18.6 seconds <16.8 Anti Xa Inhib Assay <0.10 <0.10 Latest Ref Rng & Units 11/04/2024 06/29/2024 02/03/2024 01/30/2024 Urinalysis Protein, Urine Negative Negative Negative Negative Negative RBC, Urine 0-2 /HPF 0-2 /HPF 3-5 /HPF 0-3 /HPF 0-3 /HPF Protein/Creat Ratio <0.15 mg/mg 0.11 08/31: PLT 140 WBC/Hgb WNL sCr WNL 07/31: ESR WNL CRP WNL C3 WNL C4 of 12 (-)DsDNA KHRIS 1:160 nuclear fine speckled (-)MODESTA (-)Hepatitis 01/27: KHRIS 1:80 nuclear homogenous (-)SSA/SSB NM PET/CT NEUROENDOCRINE WHOLE BODY IMAGING 04/29 HEAD AND NECK: Head: No radiotracer avid lesion or mass effect in the intracranial compartment. Aerodigestive Tract: No radiotracer avid lesion. Lymph Nodes: No radiotracer avid lymphadenopathy. Neck Soft Tissues: No radiotracer avid thyroid nodule. CHEST: Lungs & Pleura: No radiotracer avid mass, nodule, or consolidation. No pleural effusion. Lymph Nodes: No radiotracer avid lymphadenopathy. Mediastinum: No radiotracer avid mass. Cardiovascular: Blood pool activity. No pericardial effusion. Normal heart size. Chest Wall: No radiotracer avid soft tissue lesion. ABDOMEN AND PELVIS: Hepatobiliary: No radiotracer avid lesion. No measurable mass. Spleen: No radiotracer avid lesion. No splenomegaly. Pancreas: No radiotracer avid lesion. Adrenals: No radiotracer avid nodule. Urinary Tract: Physiologic radiotracer excretion in the renal collecting systems and urinary bladder. No hydronephrosis. GI Tract: No radiotracer avid lesion. No bowel dilation. Peritoneum: No radiotracer avid lesion. No ascites. Lymph Nodes: No radiotracer avid lymphadenopathy. Vasculature: Blood pool activity. Pelvic Organs: No radiotracer avid lesion. MUSCULOSKELETAL: Bones: No radiotracer avid lesion. No lytic or sclerotic lesion. Soft Tissues: No radiotracer avid lesion. RHEUMATOLOGY EVALUATION 11/01/2024 Patient seen and examined - referred for +KHRIS. She is from [place], [place] and has seen Dr Cortés Rheumatology at [facility] - last seen 08/20/24 per note 23-year-old pleasant lady with low titer positive KHRIS is here for follow-up. She also had a history of borderline TOOL LAPPER HAND of 1 in April 2023 but on repeat testing negative. KHRIS recently on blood work July 2024 was low titer 1: 160 and associated with positive mitochondrial antibody 29.1 and positive thyroperoxidase antibody 173. C4 was slightly low at 12. She describes recent flare last week lasting 3 to 4 days where she had severe achiness in her legs, abdominal pain, cramping, nausea and some low-grade fevers of 99.4. She took Tylenol, ibuprofen and hydrated well with some improvement. She had 1 perioral ulcer at the time. Today she has some achiness 2/10 all over. She has no joint swelling. She has no rashes. She has no trouble breathing or chest pain. She gives episodes of lip swelling in the past. She has a history of POTS and sees neurologist and is on beta-alvino. She has had hospitalizations for her flares in the past. Colonoscopy recently July 2024 was normal. She continues to see phone specialist. She is on a gluten-free diet because of gluten sensitivity. 23-year-old pleasant lady with 1. Abnormal serologies-low titer KHRIS, recently 1: 160, borderline TOOL LAPPER HAND of 1 in the past but recentlynegative, positive thyroid peroxidase antibody and positive mitochondrial antibody but no evidence for Palmira's disease or primary biliary cholangitis. Thyroid function normal and liver enzymes normal. No clear evidence for systemic autoimmune process 2. History of POTS syndrome-has had positivetilt table testing in the past and sees neurologist regularly. On beta-alvino 3. Abdominal pain, intermittent diarrhea and constipation-has been diagnosed with autoimmune gastritis and gastroparesis-has positive antiparietal antibodies. Sees phone specialist regularly. Has had EGD, recent colonoscopy normal July 2024 4. Recurrent fevers, oral ulcerations, joint pains-describes flares every 2 weeks-symptoms last fora week at a time. Also associated with GI symptoms and weight loss. Has been hospitalized in the past for IV hydration-secondary to POTS versus other? Recent flare-etiology unclear 5. Gluten-free diet-celiac serologies on gluten-free diet negative #6 family history of Graves'-patient also has positive thyroperoxidase antibody but thyroid function normal #7 perioral dermatitis-has seen ccnp #8 low C4-C1 esterase inhibitor negative. Rule out angioedema with various symptoms. C3 normal Plan Has history of POTS but not seeing hypermobility EDS on exam Positive mitochondrial antibody and thyroperoxidase antibody but thyroid function normal and liver enzymes normal-continue to monitor closely for primary biliary cholangitis and Palmira thyroiditis Continue follow-up with phone specialist-recent colonoscopy normal Referred to [facility] to rule out angioedema-has low C4, history of lip swelling, intermittent episodes of abdominal pain-C1 esterase inhibitor levels negative Symptoms may be associated with POTS, has had hospitalizations for GI symptoms which could be from autonomic dysfunction and GI dysmotility. Continue hydration, continue follow-up with neurologist and continue beta-blockers With episodes of fevers, oral ulcerations, abdominal pain recommended NGS panel for inflammatory disorders through [employer] but unable to get it approved-will consider getting this test [id number] if workup through reference data expert and phone specialist negative Continue to monitor thyroid function regularly and continue to monitor liver enzymes closely === TODAY: -h/o abnormal serologies +KHRIS +TOOL LAPPER HAND (previous borderline, now resolved) +TPO (TFTs WNL) +anti-mitochondrial (LFTs WNL) low C4, mild thrombocytopenia and +antiparietal ab (follows with GI for autoimmune gastritis and gastroparesis) Today: -notes Dr Cortés was trying to refer her to reference data expert for concern for hereditary angioedema; patienthas shown photographs of lip swelling, leg swelling. 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 Clear pattern of triggers around menses and infectious illness - given frequency of symptoms will start prophylactic regimen, reviewed risks and benefits of options. 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 Complex history: More recently: Notes new symptoms at the age of 19 - started to experiencing bouts of lip swelling,she recalls rash history very often -started having flares between [age] years old nausea, abdominal pain worked up by Gastroenterologists; sees Dr Roca and Dr Lui in GI - diagnosed with gastroparesis at age 22/21 About 1 year ago started to experience flares -once a month last year - flares themselves would last for 4-5 days: fever - Tmax 99.5 - 101, rashes (erythematous, maculopapular, NON-pruritic I would always have a rash with the fever, painful aphthous stomatitis along with polymyalgia, polyarthralgia of legs, ankles, hips, shoulders + abdominal pain; +hyperhidrosis +intermittent LAD cervical/posterior auricular. ROS (-)pleurisy, hearing loss. No history of joint swelling/redness/warmth. No h/o vaginal or genital ulcers. No h/o inflammatory ocular disease; notes she had EGD/colonoscopy that did NOT show IBD/Crohn's Diseaes -antipyretics during this time was helping but IBUprofen helped more they didn't want me to take it because of my stomach Notes last six months significant severity -feels now has symptoms are more regular, constant at least 4/7 days of the week Now: nausea/vomiting/abdominal pain, diarrhea, outside of GI symptoms -tons of muscle and joint pain shoulders, back, hips, legs, ankles - notes her joint pains correspond with her episodes wellingof legs; painful oral aphthous stomatitis, fevers, rashes, fatigue (it's not like my narcolepsy type of fatigue) I can walk but it feels very weak Patient great grandfather is algerian PREDNISONE has helped symptoms like abdominal pain, mouth sores, rashes, joint pain Recalls a short course of prednisone 40mg, 20mg, taper notes her symptoms went away. Recurrent infections - h/o recurrent croup ROS +dry eyes Today: joint and muscle pain, no current fever, oral ulcers, rashes, LAD Notes she had swollen glands this past weekend. No sore throat, no ocular inflammatory disease, pleurisy, raynaud's, joint swelling, nasal ulcers -last abdominal imaging 04/29 Rheumatologic ROS (+) in bold; all rest are negative/denies history of: Chest pain, shortness of breath, history of pleural effusion or pericarditis, oral/nasal ulcers, photosensitivity, rash, history of DVT/PE/&or miscarriages, renal disease, seizures - H/O epilepsy last seizure years ago, dryeyes, dry mouth, cervical lymphadenopathy or parotid gland swelling, raynaud's phenomenon, alopecia, psoriasis, history of iritis/uveitis or scleritis, nail pitting, dactylitis, history of sacroiliitis or inflammatory bowel disease, arm weakness in raising arms above head, leg weakness in standing up from a seated position, skin tightening, dysphagia, changes in vision, scalp tenderness, jaw elder ication, stiffness in shoulders/hip girdle, auricular or nasal chondritis RHEUMATOLOGY VIRTUAL FOLLOW UP VISIT 11/28: Patient seen and examined at [facility] rheumatology clinic for a follow up visit. Diagnostics since last visit: 11/28: (-)MODESTA; (-)C1q; CBC WNL; sCr/LFT WNL; ESR/CRP WNL; normal Ferritin; (-)DsDNA/Crithidia; normal C3/C4; UA (-)protein, blood, RBC; (-)APS; (-)TB/Hepatitis; SPEP (-)Mprfloridasarika Fish reports a history of recurrent low-grade fevers, oral ulcers, salmon- colored rashes, cervicallymphadenopathy, and joint pain beginning at age 19. She denies any similar symptoms during childhood. She was hospitalized in August and feels she has not fully recovered since. Over the past 1-2 years, she has experienced intermittent flares of these symptoms. During the last3 weeks, she notes low-grade fevers with a Tmax of 99.8 F, but no high fevers exceeding 100.3 F. She reports recent rashes associated with the fevers and a healed oral ulcer with a residual raleigh, butdenies current pain or new ulcers. She also notes a swollen gland in her neck. She experiences significant joint pain, particularly in the morning and at night, leading to stiffness and insomnia. She has tried Toradol for pain relief. She inquires about the use of hydroxychloroquine for joint and muscle aches, noting that she feels better when on steroids for other illnesses. She started Orladeyo 3 weeks ago for hereditary angioedema and has not had any episodes of lip swelling since. She is also taking mestinon for gastroparesis and has previously stopped it during prednisone courses without issues. She expresses frustration with her insurance denying genetic counseling and testing. RHEUMATOLOGY FOLLOW UP VISIT 01/19/2025: Patient seen and examined at [facility] rheumatology clinic for a follow up visit. Diagnostics since last visit: 01/28: sCr/LFT WNL CRP 1.4 (-)bartonella LDH WNL Ferritin WNL (-)HIV, (-)lyme; CBC WNL ESR WNL Today, patient seen/examined; since last visit patient tolerated prednisone taper. She remains on HCQ and PRN use of meloxicam. Mikayla was first seen on 11/01 and then virtually in November. She has been experiencing recurrent fevers,rashes, arthralgia, oral ulcers, and lymphadenopathy. She was started on Orladeyo for angioedema around the time of the virtual visit and reports a decrease in swelling attacks since starting the medication. She notes that her lip, leg, and abdominal swelling have significantly reduced. She was previously on metoclopramide for gastroparesis but was weaned off due to severe myalgia andweakness, which have since improved but are not completely resolved. She completed a 2-week prednisone taper in November, after which she experienced significant improvement in fevers, rashes, oral ulcers, and lymphadenopathy. She reports that these symptoms were gone after finishing prednisone and states, I don't think I felt so good in my life until I had it. Currently, her most severe symptom is arthralgia, particularly in the shoulders, hips, and knees. She describes the pain as severe, stating that exercise is awful and she experiences swelling and severe pain with minimal activity, sometimes requiring her to crawl up and down stairs. She reports that hydroxychloroquine and as-needed meloxicam have decreased her joint pain and stiffness. She denies current use of prednisone and has not started colchicine. She reports that her fevers, rashes, and oral ulcers have decreased in frequency and severity. She notes that her fevers are primarily nocturnal and coincide with increased pain. During a recent flare, she experienced severe arthralgia, oral ulcers, myalgia, stiffness, and a fever of 100.1 F. She reports that her symptoms have improved moderately to significantly since starting hydroxychloroquineand Orladeyo. She has a history of joint hypermobility and reports frequent joint dislocations, requiring chiropractic adjustments twice weekly when she played tennis. 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 OBJECTIVE General: No acute distress. Eye: Pupils are equal, round and reactive to light, Extraocular movements are intact, Normal conjunctiva. HENT: Oral mucosa is moist, no oral ulcerations, no areas of alopecia appreciated Neck: Supple, Non-tender. No lymphadenopathy Respiratory: Lungs are clear to auscultation, Respirations are non-labored, Breath sounds are equal. Cardiovascular: Normal rate, Regular rhythm. Gastrointestinal: soft, non-tender, non-distended. Musculoskeletal: evidence of joint hypermobility, no synovitis appreciated. Integumentary: Warm, Dry. Neurologic: Alert, Oriented. Psychiatric: Cooperative. IMPRESSION & RECOMMENDATIONS Ms. Mikayla Bertrand is a 24 year old female who has a past medical history of Acquired mallet toe of left foot, Epilepsy, GERD, Narcolepsy, POTS, autoimmune gastritis with gastroparesis (antiparietal+)who presents for rheumatologic evaluation. Patient is from [place], [place] an has previously been evaluated by Dr Cortés - isaura to hi. 08/31: PLT 140 WBC/Hgb WNL sCr WNL 07/31: ESR WNL CRP WNL C3 WNL C4 of 12 (-)DsDNA KHRIS 1:160 nuclear fine speckled (-)MODESTA (-)Hepatitis 01/27: KHRIS 1:80 nuclear homogenous (-)SSA/SSB NM PET/CT NEUROENDOCRINE WHOLE BODY IMAGING 04/29 HEAD AND NECK: Head: No radiotracer avid lesion or mass effect in the intracranial compartment. Aerodigestive Tract: No radiotracer avid lesion. Lymph Nodes: No radiotracer avid lymphadenopathy. Neck Soft Tissues: No radiotracer avid thyroid nodule. CHEST: Lungs & Pleura: No radiotracer avid mass, nodule, or consolidation. No pleural effusion. Lymph Nodes: No radiotracer avid lymphadenopathy. Mediastinum: No radiotracer avid mass. Cardiovascular: Blood pool activity. No pericardial effusion. Normal heart size. Chest Wall: No radiotracer avid soft tissue lesion. ABDOMEN AND PELVIS: Hepatobiliary: No radiotracer avid lesion. No measurable mass. Spleen: No radiotracer avid lesion. No splenomegaly. Pancreas: No radiotracer avid lesion. Adrenals: No radiotracer avid nodule. Urinary Tract: Physiologic radiotracer excretion in the renal collecting systems and urinary bladder. No hydronephrosis. GI Tract: No radiotracer avid lesion. No bowel dilation. Peritoneum: No radiotracer avid lesion. No ascites. Lymph Nodes: No radiotracer avid lymphadenopathy. Vasculature: Blood pool activity. Pelvic Organs: No radiotracer avid lesion. MUSCULOSKELETAL: Bones: No radiotracer avid lesion. No lytic or sclerotic lesion. Soft Tissues: No radiotracer avid lesion. 11/28: (-)MODESTA; (-)C1q; CBC WNL; sCr/LFT WNL; ESR/CRP WNL; normal Ferritin; (- )DsDNA/Crithidia; normal C3/C4; UA (-)protein, blood, RBC; (-)APS; (- )TB/Hepatitis; SPEP (-)M protein Diagnostics since last visit: 01/28: sCr/LFT WNL CRP 1.4 (-)bartonella LDH WNL Ferritin WNL (-)HIV, (-)lyme; CBC WNL ESR WNL Pleasant 24 y/o F with complex history - presenting for second opinion in rheumatology (last saw Dolores in [facility] 08/30) - new to me. 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 Also follows with them for recurrent infections - undergoing immunodeficiency workup labs with low mannose binding lectin < 40. While from rheumatologic perspective one could consider undifferentiated CTD (UCTD) diagnosis given +KHRIS +fevers +mouth sores +dry eyes +thrombocytopenia +LAD and her current presentation to me is more concerning for possible periodic fever syndrome/autoinflammatory syndrome. 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 Recent labs done during a flare of her symptoms revealed NORMAL APR's ESR/CRP/Ferritin, normal complements, (-)MODESTA/DsDNA/Crithidia however repeat labs 01/28 during flare CRP elevated 1.4 Confounders in her current clinical presentation include 1) h/o dysautonomia/POTS 2) recent diagnosis of hereditary angioedema 3) h/o autoimmune gastritis, managed by GI Irrespective her bouts of fevers, aphthous stomatitis, rashes, LAD, MSK symptoms, sicca make me concerned about autoinflammatory syndrome and strongly recommend medical genetics evaluation with genetic studies - per patient her insurance did not approve an evaluation with medical genetics which is very unfortunate - we will work on having her complete [employer] Autoinflammatory Panel in the near future. During initial visit with me the photographs of oral ulcers and rashes from her phone appear concerning for an autoinflammatory syndrome (salmon colored rash, aphthous stomatitis). She has not had such symptoms as a child or in pediatric years which is how typically PFAPPA presents(typically childhood onset) however her presentation could be in line with an adult onset PFAPPA presentation From AOSD perspective: her fevers do not last > 2 weeks and imaging as above (- )pharyngitis, organomegaly, PET avid LAD. Ferritin WNL From FMF perspective: no known pleurisy, erysipelas, ankle monoarthritis - we recommended starting colchicine trial (ideally colchicine 0.6mg/d to BID dosing) however with concomitant orladeyo (for hereditary angioedema) per pharmacist recommended colchicine dose 0.3mg/d (reduced dose) - patient elected AGAINST starting colchicine however preferred starting HCQ since initial visit. From Behcet's perspective - while she has aphthous stomatitis she does not have any h/o vaginal ulcers, no h/o folliculitis, acneform rashes, pathergy, DVT, inflammatory ocular disease/uveitis/scleritis. Colchicine trial may help her aphthous stomatitis however patient defers colchicine at this time Other differentials include Schnitzler Syndrome (fevers, urticarial rashes, arthritis) however thisis less likely in setting of normal SPEP Previous labs with low C4 (resolved/normalized on 11/28 labs) - other differentials include Kikuchi Syndrome given h/o fevers, transient LAD - if persistent glandular swelling or persistent rash recommend formal imaging/low threshold for formal biopsy (Kikuchi LN bx usually necrotizing histiocytic ly mphadenitis) Given previous hypocomplementemia of C4, other differential includes hypocomplementemic urticarial vasculitis but no h/o persistent rash or urticaria that resolves with hyperpigmentation - if persistent rash recommend skin bx to evaluate for LCV. We checked an anti-C1q antibody which was negative Will check labs during flare including ESR, CRP, Ferritin Exam with livedo reticularis rash of legs - antiphospholipid ab testing x 3 (aCL, B2GP1, LAC) all were negative. PLAN: -continue HCQ, PRN use of meloxicam -Prednisone PRN flare -labs during flare -Joint pain with h/o hypermobility arthralgia of shoulders hips knees no synovitis clinically likely Benign joint hypermobility/hypermobilty arthralgia -information provided on IL-1 inhibitors to consider going fwd -patient inquires about SLE but at current serologies +KHRIS (- )DsDNA/Crithidia/TOOL LAPPER HAND/Chromatin/Alvarado, normal complements, normal APS and urine studies (-)blood, protein, urine protein/cr ratio WNL - lowclinical suspiscion for SLE at this time. I spent a total of 40 minutes on the date of the service which included preparing to see the patient, [id number] patient care, completing clinical documentation, obtaining and/or reviewing separately obtained history, performing a medically appropriate examination, counseling and educating the pat ient/family/caregiver, ordering medications, tests, or procedures, communicating results to the patient/family/caregiver and care coordination (not separately reported). Yung Celeste MD Rheumatology Staff documented in this [facility] Telephone encounter Note * Telephone Encounter - Brit Barbour LPN - 01/19/2025 7:57 AM EDT Called and spoke with patient to get her rescheduled due to provider conflict this morning. She [place]an appt with rheum in [place] and would like to see [facility] in [place] if possible today. Please reach out to patient JAYDEN. Brit Barbour LPN [facility]07-16-2025 Miscellaneous Notes* Telephone Encounter - Brit Barbour LPN - 01/19/2025 7:57 AM EDT Called and spoke with patient to get her rescheduled due to provider conflict this morning. She hasan appt with rheum in [place] and would like to see [facility] in [place] if possible today. Please reach out to patient JAYDEN. Brit Barbour LPN documented in this encounterMartin [facility]07-[facility]25 Miscellaneous Notes* Telephone Encounter - Janey Domingo - 01/13/2025 4:31 PM EDT Pt scheduled * Telephone Encounter - Javier Hernandez RN - 01/12/2025 1:13 PM EDT Patient scheduled for EGD w/ pyloric dilation on 02/02/2025. 4 weeks postop will be scheduled by GP team. Aware of need for [facility]. Pre and postop instructions discussed in detail with written copy provided via [employer]. No other questions/concerns at this time. documented in this encounterMartin [facility]07-[facility]25 Telephone encounter Note * Telephone Encounter - Janey Domingo - 01/13/2025 4:31 PM EDT Pt scheduled [facility]07-[facility]25 Telephone encounter Note* Telephone Encounter - Javier Hernandez RN - 01/12/2025 1:13 PM EDT Patient scheduled for EGD w/ pyloric dilation on 02/02/2025. 4 weeks postop will be scheduled by GP team. Aware of need for [facility]. Pre and postop instructions discussed in detail with written copy provided via [employer]. No other questions/concerns at this time. [facility]25 [facility] History of Present illness Narrative* Anderson Barker, - 01/11/2025 3:25 PM EDT Images from the original note were not included. [facility] [place] Gastroparesis/Dysmotility Virtual Consultation This encounter was provided via two-way, live video teleconferencing within the guidelines of statelicensure rules for new and established patients. I have communicated my name and active licensure.The patient's identity and physical location were verified at the time of this visit. Either the patient or their legal scheduling representative has been informed of the risks and benefits of -- and alternatives to -- treatment through a remote evaluation and consents to proceed with the evaluation remotely.Technical difficulties were not encountered. 30 minutes were spent on the teleconference with the patient. An additional 15 minutes was required for chart review/preparation, documentation, orders, and care coordination. Recording using [employer] software for draft documentation of the visit was discussed with the patient/authorized scheduling representative; all questions welcomed and answered. Patient/authorized scheduling representative agreed to proceed SERVICE DATE: 01/11/2025 SERVICE TIME: 3:26 PM PRIMARY CARE PHYSICIAN: Carly Callejas MD No referring provider defined for this encounter. My final recommendations will be communicated back to the requesting physician by way of shared Medical record or letter to requesting physician via [place] mail. 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 There is clinical suspicion for mid/hind-gut dysmotility based on historical bowel patterns and symptom distribution however patient is currently reasonably maintained on Linzess 290 MiraLAX typically with at least 3 bowel movement days per week. Case is further confounded by evolving autoimmune processes. Currently patient is tolerating a Soft diet, and does not exhibit severe malnutrition/weight loss. 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 Based on patient's etiology, current symptoms, and dysmotility workup, I feel that patient is an appropriate candidate for pyloric therapy. It was discussed in detail that the procedure would primarily aim to improve symptoms of vomiting/retching as well as delayed fullness. There may be some ancillary improvements to a lesser extent in areas of nausea and upper abdominal pressure, but is not guaranteed. Symptoms response of pain, nausea, bloating, and bowel patterns are unpredictable and maybe confounded by other factors. Patient will ultimately require longitudinal adjunctive care including medical, nutritional/dietary, and behavioral/psychosocial support for optimal symptom palliation PLAN I discussed surgical therapy for gastroparesis in detail. Based on this discussion, Mikayla Bertrand wishes to proceed with trial of pyloric dilation. 1. Gastroparesis (K31.84) Refractory idiopathic gastroparesis with significant symptomatology including nausea, vomiting, andearly satiety. Previous pyloric dilation in August provided temporary relief. Abnormal gastric emptying study in January 2024 demonstrated 81% retention at 4 hours. Previous treatments with Reglan and erythromycin were unsuccessful due to allergy and lack of efficacy, respectively. - Scheduled for another EGD pyloric dilation to assess efficacy in a controlled setting. - Discussed G-POEM as a potential next step if dilation provides temporary relief; explained procedure, risks, and benefits. - Educated on post-procedure care for G-POEM, including liquid diet requirements and medication regimen with Protonix and Carafate. - Follow-up virtual appointment scheduled one month post-dilation to evaluate symptom improvement and discuss further interventions if necessary. 2. Chronic idiopathic constipation (K59.04) Lifelong constipation managed with Linzess 290 mcg and Miralax. Bowel movements are generally dailybetween flare-ups, but patient reports no bowel movements without Linzess. - Continue current regimen of Linzess and Miralax. - Discussed potential trial of [employer] to address both gastric and colonic motility. - Monitor bowel movement frequency and consistency post-dilation. Risks of the procedure including bleeding (including major bleeding requiring transfusion), perforation, infection/abscess, ulceration (need for adherence to acid suppressive therapy), exacerbation of symptoms, symptom recurrence, anesthesia related complications, cardiopulmonary events, thromboembolic events, aspiration/pneumonia, dental gum injury, failure to identify/treat a condition, need for additional procedures/surgeries, as well as other rare complications including were presented. Alternatives of Pyloroplasty, Pyloric Dilation and Botox, and continued medical/dietary management were reviewed. NAME: Mikayla Bertrand CLINIC NO: [id number] DATE OF SERVICE: January 11, 2025 This is an initial consultation for Mikayla Bertrand who was referred to me by Dr. Dustin Tamayo for evaluation of medical refractory gastroparesis. My final recommendation will be communicated via shared electronic medical record. CHIEF COMPLAINT Idiopathic Gastroparesis HISTORY OF PRESENT ILLNESS Mikayla Bertrand is a 24 year old female who comes in today for surgical evaluation for management of gastroparesis. The patient has been evaluated thoroughly including an EGD, and gastric emptying study. Mikayla Bertrand is a 24-year-old female with a history of chronic sinusitis, epilepsy, GERD, autoimmune gastritis, HTN, narcolepsy, and POTS, presenting for an initial surgical consultation regarding medically refractory idiopathic gastroparesis. Mikayla has a history of ongoing GI issues dating back to her mid to late teens, with initial symptoms of emesis beginning in high school. She has a known gluten sensitivity and has been maintained on a gluten-free diet, which provided some relief initially. However, she reports a significant escalation of symptoms over the past 2-3 years, leading to multiple symptom flares requiring hospitalization . She was previously treated with Reglan but developed an allergy, and erythromycin was ineffective. She also has lifelong constipation, managed with Linzess 290 mcg and Miralax. She is currently under the care of Dr. Bailey for primary GI management and has been following up with Dr. Perkins and his PA, [facility]. She had an abnormal gastric emptying study in January 2024, demonstrating 81% retention at 4 hours. In August, she underwent a pyloric dilation performed by Dr. Muahmmad, which provided temporary relief, allowing her to eat the next day. However, she experienced a severe flare approximately 3 weeks ago, requiring a full bowel prep and increased use of Zofran. Duringthis flare, she was on a liquid diet and experienced intermittent diarrhea. She continues to take Linzess and Miralax but reports not having a bowel movement for 2 days. She notes that without Linzess, she would not have bowel movements at all. She also reports RUQ pain and typically has daily bowel movements between flare-ups. Her current top three GI issues are nausea, emesis, and constipation. She follows a diet low in fatand high in protein, avoids fresh vegetables except for occasional red peppers, and does not consume steak or pork chops. Despite these dietary modifications, she continues to experience severe nausea, emesis of undigested food, anorexia, and bloating. She rates her symptoms over the past month or two as follows: nausea 3-4, retching or dry heaves 1-2, emesis 1, sensation of stomach fullness 4, inability to finish an appropriate-sized meal 2, feeling excessively full after eating 3-4, generalized anorexia 2, sensation of bloating 2, and visible abdominal distension 3. She denies the use of tobacco, nicotine, marijuana, or THC products. She has a history of a salpingectomy but has not had her gallbladder or appendix removed. 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 Top 3 Symptoms: 1) Nausea, 2) Vomiting, 3) Constipation Gastric Emptying Study Results (01/2024) 1 Hour = 95% Retained 2 Hour = 92% Retained 4 Hour = 81% Retained SMART Pill (N/A) Not ordered EGG (02/2024) Gastroparesis cardinal symptom index 1. nausea 4 2. retching 2 3. vomiting 1 4. stomach fullness 4 5. not able to finish a normal-sized meal 2 6. feeling excessively full after meals 4 7. loss of appetite 3 8. bloating (feeling like you need to loosen your clothes) 2 9. stomach or belly visibly larger 3 GCSI - 2.69 Scale (0-none; 1-very mild; 2-mild; 3-moderate; 4-severe; 5-very severe) PAST HISTORY PAST MEDICAL HISTORY Diagnosis Date Acquired mallet toe of left foot Delayed emergence from anesthesia 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) off AEDs since 2018 GERD (gastroesophageal reflux disease) Mild intermittent asthma without complication MT (mallet toe), right Narcolepsy without cataplexy PMH - PAST MEDICAL HISTORY OF seizure [...] TONSIL AND ADENOI UNDER AGE 14 02/12/2010 SALPINGECTOMY FAMILY HISTORY Problem Relation Age of Onset Graves Disease Mother Heart Mother SVT Allergies Father Asthma Brother Allergies Maternal Grandmother Hypertension Maternal Grandfather Allergies Maternal Grandfather Heart Maternal Grandfather mat side/pat side Breast Cancer Paternal Grandmother No Known Problems Paternal Grandfather Anesthesia Problems No Family History Social History Tobacco Use Smoking status: Never Passive exposure: Never Smokeless tobacco: Never Vaping Use Vaping status: Never Used Substance Use Topics Alcohol use: No Drug use: No Current Outpatient Medications on File Prior to Visit Medication Sig propranolol ER (INDERAL LA) 60 mg 24 hr capsule Take 1 capsule by mouth once daily. linaCLOtide (LINZESS) 290 mcg capsule Take 1 capsule by mouth daily at 6 am. Take capsule on an empty stomach at least 30 minutes before a meal at the same time each day. Capsule should be swallowed whole. DO NOT chew or crush. hydrOXYchloroQUINE (PLAQUENIL) 200 mg tablet Take 1 tablet by mouth once daily. colchicine 0.6 mg tablet Take 0.5 tablets by mouth once daily. meloxicam (MOBIC) 15 mg tablet Take 1 tablet by mouth once daily. berotralstat (ORLADEYO) 150 mg cap Take 150 mg by mouth once daily. icatibant (FIRAZYR) 30 mg/3 mL injection Inject 3 mL subcutaneously three times a day as needed (for acute swelling episodes). famotidine (PEPCID) 20 mg tablet Take 1 tablet by mouth two times a day. pyridostigmine (MESTINON) 60 mg tablet Take 1 tablet by mouth three times a day. potassium chloride SR (MICRO-K) 10 mEq CR capsule Take 10 mEq by mouth. methylphenidate ER (CONCERTA) 18 mg biphasic tablet Take 1 tablet by mouth every morning for 30 days. MULTIVITAMIN ORAL Take 1 tablet by mouth once daily. No current facility-administered medications on file prior to visit. REVIEW OF SYSTEMS: Constitutional: (+) decreased appetite Gastrointestinal: (+) nausea, (+) retching, (+) vomiting, (+) early satiety, (+) postprandial fullness, (+) bloating, (+) abdominal distension, (+) right upper quadrant abdominal pain, (+) constipation, (+) intermittent diarrhea Physical Exam LMP 08/25/2024 (Approximate) GENERAL: AAOx3, NAD EYES: EOMI, sclera non-icteric ORAL: Moist membranes, tongue midline NECK: No Cervical LN, normal ROM CARDIOVASCULA: RRR PULMONARY: CTAB ABDOMEN - Soft, ND, NT EXTREMITIES: Warm, well perfused, No LE Edema PSYCH: Appropriate mood and Affect SIGNATURE: Anderson Barker DO PATIENT NAME: Mikayla Bertrand DATE: January 11, 2025 TIME: 3:26 PM documented in this encounterMartin [facility]07-[facility] Telephone encounter Note * Telephone Encounter - Silvana Woodruff RN - 01/11/2025 9:27 AM EDT Patient at top of EDS wait list to see Dr. Ramesh Bertrand. Called patient. Discussed scheduling, but she advises that she does not think hypermobility is her top issue at the moment, declining to schedule. She will discuss with Dr. Celeste and we can always schedule her later on if needed. 'Silvana Woodruff RN [facility]07-08-[facility]25 Miscellaneous Notes* Telephone Encounter - Silvana Woodruff RN - 01/11/2025 9:27 AM EDT Patient at top of EDS wait list to see Dr. Ramesh Bertrand. Called patient. Discussed scheduling, but she advises that she does not think hypermobility is her top issue at the moment, declining to schedule. She will discuss with Dr. Celeste and we can always schedule her later on if needed. 'Silvana Woodruff RN documented in this encounterMartin [facility] Hospital06-25-2025 Telephone encounter Note * Telephone Encounter - Janey Domingo - 12/29/2024 10:54 AM EDT Pt scheduled 01/[address] Barker [facility]06-25-2025 Miscellaneous Notes* Telephone Encounter - Janey Domingo - 12/29/2024 10:54 AM EDT Pt scheduled 01/[address] Barker * Telephone Encounter - Minnie Adam - 12/28/2024 2:52 PM EDT Patient said last time she saw Dr Oliva retail sales assistant she was told to call and schedule with GP surgeon and so she is calling to set that up. documented in this encounterMartin [facility] Hospital06-24-2025 Telephone encounter Note * Telephone Encounter - Minnie Adam - 12/28/2024 2:52 PM EDT Patient said last time she saw Dr Oliva retail sales assistant she was told to call and schedule with GP surgeon and so she is calling to set that up. [facility] Work Phone: [phone] NoteProm[facility] History of Present illness Narrative* Zari Hager APRN.CNP - 12/21/2024 10:05 AM EDT Images from the original note were not included. [facility] Follow Up / Established Virtual Visit I have communicated my name and active licensure. The patient's identity and physical location wereverified at the time of this visit. Either the patient or their legal scheduling representative has been informed of the risks and benefits of -- and alternatives to -- treatment through a remote evaluation andconsents to proceed with the evaluation remotely. Individuals who were included in, or assisted with the encounter were: Mikayla Bertrand Zari Hager APRN.CNP Chief Complaint/Issues: Mikayla Bertrand is a 24 year old female seen in the [facility] for: POTS follow up Most Recent Neurological Assessment and Plan: 03/12/24 with Zoran Julio CNP POTS; gastroparesis Recent gastric emptying study showing severe gastroparesis. Evaluated by Dr. Dustin Tamayo in GI. Extensive lab work looking for a potential autoimmune etiology has been unrevealing. She was started on pyridostigmine 60 mg TID and feels less nausea/vomiting and reports increased bowel movement frequency. We reviewed obtaining a QSART, but she does not wish to hold medications at this time. I will review her case with Dr. Murray, but do not suspect her gastroparesis is neurologic in nature. No changes to current treatment plan. HPI/Interval History: POTS - symptoms have been well controlled - propranolol ER 60 mg daily - no recent episodes of sweating, near syncope, palpitations Recently diagnosed with hereditary angioedema. Following with Rheumatology -recent steroid taper resolved symptoms. - started on plaquenil last week. Having leg swelling, with this will have associated Leg pain and leg weakness. Occurring intermittently. - she is asking if this could be related to POTS. Discussed symptom are intermittent and not occurring with typical POTS symptoms and resolved with steroid, unlikely related to her POTS diagnosis. Would need physical exam to determine if additional neurological work up is necessary, no red flag symptoms, no saddle anesthesia, loss of bowel or bladder associated. Also Can feel weakness in shoulders and arms as well Abdominal swelling Mouth ulcers General Examination: General Exam Neurological Exam Assessment & Plan 12/21/2024 - General Neurology, Zari Hager, CATALYST UNIT OPERATOR.CORRECTIONAL PROBATION OFFICER ASSESSMENT Postural orthostatic tachycardia syndrome (POTS) (G90.A) Symptoms are well controlled with propranolol ER 60 mg daily. no recent episodes of sweating, near syncope, palpitations. Refills sent. All questions answered. Follow up annually or sooner if need. Hereditary angioedema (HCC) (D84.1) - Diagnosed with hereditary angioedema; currently managed by rheumatology. - Recent initiation of Plaquenil and completion of a steroid taper, which significantly reduced symptoms. No diagnosis found. No follow-ups on file. Data Review Objective Current Outpatient Medications Medication Sig linaCLOtide (LINZESS) 290 mcg capsule Take 1 capsule by mouth daily at 6 am. Take capsule on an empty stomach at least 30 minutes before a meal at the same time each day. Capsule should be swallowed whole. DO NOT chew or crush. hydrOXYchloroQUINE (PLAQUENIL) 200 mg tablet Take 1 tablet by mouth once daily. colchicine 0.6 mg tablet Take 0.5 tablets by mouth once daily. meloxicam (MOBIC) 15 mg tablet Take 1 tablet by mouth once daily. berotralstat (ORLADEYO) 150 mg cap Take 150 mg by mouth once daily. icatibant (FIRAZYR) 30 mg/3 mL injection Inject 3 mL subcutaneously three times a day as needed (for acute swelling episodes). propranolol ER (INDERAL LA) 60 mg 24 hr capsule Take 1 capsule by mouth once daily. famotidine (PEPCID) 20 mg tablet Take 1 tablet by mouth two times a day. pyridostigmine (MESTINON) 60 mg tablet Take 1 tablet by mouth three times a day. potassium chloride SR (MICRO-K) 10 mEq CR capsule Take 10 mEq by mouth. methylphenidate ER (CONCERTA) 18 mg biphasic tablet Take 1 tablet by mouth every morning for 30 days. MULTIVITAMIN ORAL Take 1 tablet by mouth once daily. No current facility-administered medications for this visit. 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) Drug Allergy Urticaria Due to Drug Allergy Adverse Effect of Cephalosporins and Other Beta-Lactam Antibiotics, Initial Encounter Seasonal Allergic Rhinitis Due to Pollen Elevated Blood Pressure Reading Without Diagnosis of Hypertension Pre-Op Examination Gerd (Gastroesophageal Reflux Disease) Mild Intermittent Asthma Without Complication (Hcc) Pots (Postural Orthostatic Tachycardia Syndrome) Delayed Emergence From Anesthesia Epilepsy (Hcc) Cyst of Right Ovary Drug-Induced Constipation Chronic Superficial Gastritis Without Bleeding Gastroparesis Intractable Nausea and Vomiting Malnutrition of Moderate Degree (Hcc) Chronic Abdominal Pain Liver Hemangioma Ruq Abdominal Pain Nausea Vomiting and Diarrhea Malnutrition of Mild Degree (Hcc) Ponv (Postoperative Nausea and Vomiting) Epigastric Pain Helicobacter Pylori Gastritis Khris Positive Chronic Idiopathic Constipation PAST MEDICAL HISTORY Diagnosis Date Acquired mallet toe of left foot Delayed emergence from anesthesia 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) off AEDs since 2018 GERD (gastroesophageal reflux disease) Mild intermittent asthma without complication MT (mallet toe), right Narcolepsy without cataplexy PMH - PAST MEDICAL HISTORY OF seizure [...] TONSIL AND ADENOI UNDER AGE 14 02/12/2010 SALPINGECTOMY Social History Tobacco Use Smoking status: Never Passive exposure: Never Smokeless tobacco: Never Vaping Use Vaping status: Never Used Substance Use Topics Alcohol use: No Drug use: No FAMILY HISTORY Problem Relation Age of Onset Graves Disease Mother Heart Mother SVT Allergies Father Asthma Brother Allergies Maternal Grandmother Hypertension Maternal Grandfather Allergies Maternal Grandfather Heart Maternal Grandfather mat side/pat side Breast Cancer Paternal Grandmother No Known Problems Paternal Grandfather Anesthesia Problems No Family History Review of Systems Subjective Patient-Entered Data: 12/21/24 - GENERAL NEUROLOGY SCORES 09/27/2023 03/11/2024 11/01/2024 PROMIS 10 Health, in general Fair Fair Fair Quality of life, in general Good Very good Good Physical health, in general Fair Good Fair Mental health, in general Very good Very good Very good Social activities satisfaction Good Very good Very good Performing ADL's Mostly Completely Mostly Social role satisfaction Fair Excellent Very good Pain, on average 4 4 6 Fatigue, on average Severe Moderate Moderate Emotional problems Sometimes Rarely Rarely PHYSICAL Score 37.4 (Fair) 44.9 (Good) 39.8 (Fair) MENTAL Score 45.8 (Good) 53.3 (Very Good) 50.8 (Very Good) 06/20/2023 08/28/2023 03/11/2024 Depression Screening PHQ-2 Score 0 0 0 PHQ-9 Score 2 2 3 MARY-2 Total Score 0 0 0 MARY-7 Total Score 0 0 0 09/12/2020 06/20/2023 SLEEP APNEA SCORE Probability of moderate-severe sleep apnea (%) SAPS V2 3.32 (Sleep study not recommended) 2 (Sleep study not recommended) 12/30/2021 AVERAGE SLEEP 24 HOURS Average sleep last 24 hrs 9 12/30/2021 PROMIS CAT Sleep Disturbance PROMIS Sleep Disturbance T-Score 44 (within normal limits) I spent a total of 33 minutes on the date of the service which included preparing to see the patient, [id number] patient care, completing clinical documentation, obtaining and/or reviewing separately obtained history, performing a medically appropriate examination, counseling and educating the pat ient/family/caregiver, and ordering medications, tests, or procedures. Zari Hager APRN.NEERU documented in this encounterMartin [facility] Hospital06-16-2025 Telephone encounter Note * Telephone Encounter - Charo Wilson RN - 12/20/2024 8:27 AM EDT Patient requests via MyChart refills as follows: Requested Prescriptions Pending Prescriptions Disp Refills linaCLOtide (LINZESS) 290 mcg capsule 30 capsule 5 Sig: Take 1 capsule by mouth daily at 6 am. Take capsule on an empty stomach at least 30 minutes before a meal at the same time each day. Capsule should be swallowed whole. DO NOT chew or crush. Please review and advise. Charo Wilson RN [facility] Work Phone: [phone]) 347-344806-16-2025 Miscellaneous Notes* Telephone Encounter - Charo Wilson RN - 12/20/2024 8:27 AM EDT Patient requests via MyChart refills as follows: Requested Prescriptions Pending Prescriptions Disp Refills linaCLOtide (LINZESS) 290 mcg capsule 30 capsule 5 Sig: Take 1 capsule by mouth daily at 6 am. Take capsule on an empty stomach at least 30 minutes before a meal at the same time each day. Capsule should be swallowed whole. DO NOT chew or crush. Please review and advise. Charo Wilson RN documented in this encounterMartin [facility] Hospital06-11-2025 Telephone encounter Note * Telephone Encounter - Tena Jenkins MA - 12/15/2024 2:54 PM EDT Not clear what is needed per message below. Called [facility] at [phone] to see what is needed from us for icatibant medication. Spoke with pharmacist who stated they have RX for firazyr DARVIN & need updated RX for icatibant. Gave verbal RX to Mar for icatibant. [facility]06-11-2025 Miscellaneous Notes* Telephone Encounter - Tena Jenkins MA - 12/15/2024 2:54 PM EDT Not clear what is needed per message below. Called [facility] at [phone] to see what is needed from us for icatibant medication. Spoke with pharmacist who stated they have RX for firazyr DARVIN & need updated RX for icatibant. Gave verbal RX to Mar for icatibant. * Telephone Encounter - Melinda Reid - 12/15/2024 9:40 AM EDT They need the ICATIBANT for the icatibant (FIRAZYR) 30 mg/3 mL injection Inject 3 mL subcutaneously three times a day as needed (for acute swelling episodes). 9 mL 11 ordered 10/18/2024 10/18/2025 -- -- -- SUBCUTANEOUS Summary: Inject 3 mL subcutaneously three times a day as needed (for acute swelling episodes). Normal, Disp-9 mL, R-11 Dx: 1. Hereditary angioedema type 2 (HCC) 2. Low serum complement C4 ReportDx Associated: Start Date & Time: 10/18/2024Dose, Route, Frequency: 30 mg, SUBCUTANEOUS, 3 TIMES DAILY NEEDEDPharmacy: e- [facility] [place] [address] - [address] - [phone] w/ Doses: 10/18/2025Ord/Sold: 10/18/2024 (O)Ordered On: 10/18/2024 PRN: PRN Prior Authorization: Denied Ordering Department: [facility] Authorized By: Steffany Guillen MD Order Details: Inject 3 mL subcutaneously three times a day as needed (for acute swelling episodes). Dispense: 9 mL, Refills: 11 ordered Dose History Please assist documented in this encounterMartin Memorial Hospital06-11-2025 Telephone encounter Note * Telephone Encounter - Melinda Reid - 12/15/2024 9:40 AM EDT They need the ICATIBANT for the icatibant (FIRAZYR) 30 mg/3 mL injection Inject 3 mL subcutaneously three times a day as needed (for acute swelling episodes). 9 mL 11 ordered 10/18/2024 10/18/2025 -- -- -- SUBCUTANEOUS Summary: Inject 3 mL subcutaneously three times a day as needed (for acute swelling episodes). Normal, Disp-9 mL, R-11 Dx: 1. Hereditary angioedema type 2 (HCC) 2. Low serum complement C4 ReportDx Associated: Start Date & Time: 10/18/2024Dose, Route, Frequency: 30 mg, SUBCUTANEOUS, 3 TIMES DAILY NEEDEDPharmacy: e- [facility] [place] [phone] - [id number] [phone] w/ Doses: 10/18/2025Ord/Sold: 10/18/2024 (O)Ordered On: 10/18/2024 PRN: PRN Prior Authorization: Denied Ordering Department: [facility] Authorized By: Steffany Guillen MD Order Details: Inject 3 mL subcutaneously three times a day as needed (for acute swelling episodes). Dispense: 9 mL, Refills: 11 ordered Dose History Please assist [facility]06-11-[facility] Telephone encounter Note* Telephone Encounter - Tena Jenkins MA - 12/15/2024 9:29 AM EDT Received outside lab work of tryptase of 6.8 done on 12/15/24 & C2 results. Placed in Dr. Guillen's inbox for review. [facility]06-[facility] Miscellaneous Notes* Telephone Encounter - Tena Jenkins MA - 12/15/2024 9:29 AM EDT Received outside lab work of tryptase of 6.8 done on 12/15/24 & C2 results. Placed in Dr. Guillen's inbox for review. documented in this encounterMartin Memorial Hospital06-02-2025 Telephone encounter Note * Telephone Encounter - Tena Jenkins MA - 12/06/2024 2:59 PM EDT Patient is scheduled tomorrow at 8:30am for pneumovax vaccine but no order is in. Please advise. [facility]06-02-[facility] Miscellaneous Notes* Telephone Encounter - Tena Jenkins MA - 12/06/2024 2:59 PM EDT Patient is scheduled tomorrow at 8:30am for pneumovax vaccine but no order is in. Please advise. * Telephone Encounter - Tasha Horn RN - 12/06/2024 12:23 PM EDT Deepika ([phone]) from [employer](patient services/pt assist program) for Firazyr This office received fax from [facility]--stating 'Firazyr' in not preferred by the pt's insurance plan;preferred formulary alternatives: Icatibant inj 30mg/3ml., Ruconest inj 2100unit, Berinert in 500 unit, After talking with Deepika, she suggests provider do a [id number] with [facility] to obtain approval for icatibant (pt has a normal C1inh). (If pt doesn't do well on icatibant,[employer] can re-open the case in the future) Attempted to contact [facility] at (per letter) and was told this was handled by the Appeals Team at [phone]. I attempted to contact them to set- up Peer to Peer and was advised they don't handle Appeals. I again contacted [facility] at (per letter)-spoke Marcela Myers Transferred to [facility] in the [place]-Appeals Dept--times set up per 's availability for 12/07 or 12/08 (this call ref#[id number])--[facility] will be reaching out to for the peer to peer * Telephone Encounter - Tena Jenkins MA - 12/03/2024 2:10 PM EDT Received fax from [facility] patient assistance program stating patient has been approved for the copayassistance program for [facility] for dates 12/01/24-07/06/25. Copay card ID #: [id number] Sent fax to be scanned into chart. Sent patient my chart message with approval information. * Telephone Encounter - Tena Jenkins MA - 11/25/2024 9:23 AM EDT Faxed [employer] patient support form to them at [phone]. Will await determination. * Telephone Encounter - Steffany Guillen MD - 11/25/2024 8:46 AM EDT Completed in outbox. * Telephone Encounter - Tena Jenkins MA - 11/23/2024 2:14 PM EDT Génes[employer] called back & stated on page 1 section 4, prescriber needs to sign on top line NOT bottom line where prescriber signed. Génesis stated Dr. Guillen signed on the DARVIN line, even though it says substitutions permitted under where doctor signed. Placed form in Dr. Guillen's inbox for signature. * Telephone Encounter - Tasha Horn RN - 11/23/2024 11:58 AM EDT (From 11/16/24 Tel Enc) Génesis Clark from [employer] Support program returning call [phone]---states they did NOT receive page 3hi2--hsbc pt's signature. Génesis requesting pages 1 and 3 to be faxed to [phone]--done w/confirmation Will await pt support determination * Telephone Encounter - Tena Jenkins MA - 11/16/2024 10:13 AM EDT PA appeal denial for icatibant in Dr. Guillen's inbox for review. I faxed [employer] patient assistance form for icatibant to them at [phone] along with copy of PA denial. Will await to hear from [employer] patient support. * Telephone Encounter - Tena Jenkins MA - 11/08/2024 9:56 AM EDT Received fax from [employer] stating they upheld the PA denial of icatibant. Placed denial letter in Dr. Guillen's inbox for review. * Telephone Encounter - Tena Jenkins MA - 11/02/2024 10:11 AM EDT Faxed appeal letter for icatibant (firazyr), last office visit, & C1 labs to [facility] at [phone]. . Will await determination. * Telephone Encounter - Steffany Guillen MD - 11/02/2024 9:51 AM EDT I see two appeal letters, firazyr and orladeyo, when I look under letters, both written yesterday. Thanks. * Telephone Encounter - Tena Jenkins MA - 11/02/2024 9:40 AM EDT No appeal letter written for firazyr (icatibant)? Fax in your inbox for review. * Telephone Encounter - Steffany Guillen MD - 11/01/2024 11:52 AM EDT Appeal letter written. * Telephone Encounter - Tena Jenkins MA - 10/29/2024 9:15 AM EDT [facility] is calling asking status of message below & are we pursuing appeal? * Telephone Encounter - Tena Jenkins MA - 10/19/2024 4:06 PM EDT Received fax from [employer] stating PA for firazyr was denied. Fax placed in Dr. Guillen's inbox for review. * Telephone Encounter - Tena Jenkins MA - 10/19/2024 9:23 AM EDT [employer] patient support form for firazyr completed by Dr. Guillen. Patient needs to complete her part so sent her my chart message with form she needs to complete. Will await determination of PA. * Telephone Encounter - Tasha Horn RN - 10/18/2024 2:01 PM EDT Received EPIC message that PA for Firazyr needed completed. Questions answered Awaiting determination * Telephone Encounter - Tena Jenkins MA - 10/18/2024 8:00 AM EDT Carmen Yadav, RPh4 days ago [facility] received prescription(s) for icatibant (Firazyr)from Dr. Guillen's office. Unfortunately we do not have access to this medication, it is a limited distribution medication that will be sent to the patient from another Specialty pharmacy. The MD will have to enroll the patient online and then the HUB will dispense the medication from a pharmacy that has access to this medication. To get a patient started on Firazyr, you can: - Download the [employer] Start Form - Complete and fax the form to [phone] ( ) - Enroll the patient online through the [employer] Enrollment portal The link to the start form is: [email or web address] If we can be of any other assistance, please let us know. No further follow up required from [facility]. documented in [facility] Telephone encounter Note * Telephone Encounter - Tasha Horn RN - 12/06/2024 12:23 PM EDT Deepika ([phone]) from [employer](patient services/pt assist program) for Firazyr This office received fax from [facility]--stating 'Firazyr' in not preferred by the pt's insurance plan;preferred formulary alternatives: Icatibant inj 30mg/3ml., Ruconest inj 2100unit, Berinert in 500 unit, After talking with Deepika, she suggests provider do a [id number] with Opt to obtain approval for icatibant (pt has a normal C1inh). (If pt doesn't do well on icatibant,[employer] can re-open the case in the future) Attempted to contact [facility] at (per letter) and was told this was handled by the Appeals Team at [phone]. I attempted to contact them to set- up Peer to Peer and was advised they don't handle Appeals. I again contacted [facility] at (per letter)-spoke jonny/Candy Majano to [place] in the [place] Dept--times set up per 's availability for 12/07 or 12/08 (this call ref#[id number])--Opt will be reaching out to for the peer to peer [facility]05-30[facility] Telephone encounter Note* Telephone Encounter - Tena Jenkins MA - 12/03/2024 2:10 PM EDT Received fax from [employer] patient assistance program stating patient has been approved for the copayassistance program for firazyr for dates 12/01/24-07/06/25. [place] card ID #: [id number] Sent fax to be scanned into chart. Sent patient my chart message with approval information. [facility]05-29-[facility] Telephone encounter Note* Telephone Encounter - Micheline Kincaid - 12/02/2024 11:32 AM EDT Received phone call from [facility] stating patient has been prescribed colchicine by rheum, and is also taking orladeyo as prescribed by reference data expert. Pharmacist states these 2 meds have possible negative drug interactions and she is requesting call back from office to confirm it's OK for patient to take both of these meds together. Pharmacy call back # [phone] [facility]05-29[facility] Miscellaneous Notes* Telephone Encounter - Micheline Kincaid - 12/02/2024 11:32 AM EDT Received phone call from [facility] stating patient has been prescribed colchicine by rheum, and is also taking orladeyo as prescribed by reference data expert. Pharmacist states these 2 meds have possible negative drug interactions and she is requesting call back from office to confirm it's OK for patient to take both of these meds together. Pharmacy call back # [phone] documented in this encounterMartin [facility] Hospital05-28-2025 [facility] History of Present illness Narrative* Steffany Guillen MD - 12/01/2024 12:22 PM EDT VIRTUAL VISIT PROGRESS NOTE This is a virtual visit using [employer] Video Visit. It required patient- provider interaction for the medical decision making as documented below. I have communicated my name and active licensure. The patient's identity and physical location wereverified at the time of this visit. Either the patient or their legal scheduling representative has been informed of the risks and benefits of -- and alternatives to -- treatment through a remote evaluation andconsents to proceed with the evaluation remotely. Location: Brian Bertrand is a 24 year old patient here for follow up. Interval history - December 01, 2024 Mikayla reports a severe flare beginning on a Friday morning, approximately two weeks after starting Orladeyo on 11/04. Symptoms included severe leg pain, leg swelling, fatigue, severe weakness, nausea, abdominal pain, oral ulcers, and intermittent fevers ranging from 99 to 99.9 F. On Friday, she experienced 12 episodes of diarrhea, severe leg and abdominal pain, and significant weakness, leading her to seek care at [facility] ER. She received IV Toradol, Zofran, and fluids but continued to experience symptoms on Friday, including difficulty resting due to pain and inability to find comfort with pain medications. She was advised to have labs drawn for tryptase and C2 levels during thereaction but did not proceed with the labs as she began feeling better. Mikayla notes that the flare occurred the week before her menstrual cycle, which started on the .From the to the , she experienced swollen lymph nodes, headaches, fatigue, leg pain and swelling, shoulder pain, diarrhea, and abdominal pain. On the , she continued to have joint and muscle pain, diarrhea, abdominal pain, and leg swelling. On the , she experienced joint and musclepain and stiffness, abdominal pain, fatigue, and leg swelling. She was started on a prednisone taper last week by her nurse transitional to address daily joint and muscle pain and stiffness. She is currently on 10 mg, with 1-2 more days at this dose, followed by 5 mg for 3 days. She reports significant improvement in joint and muscle pain, stating she hasn't felt this good in months. She has been able to sleep better and move her arms, legs, and joints more comfortably. The last episode of leg pain and swelling was on the at night, continuing through yesterday, but her legs are back to normal today. Mikayla does not feel any difference since starting Orladeyo and denies any side effects. She expresses reluctance to start colchicine, prescribed by her nurse transitional for mouth ulcers, as she does not experience them frequently. She questions why Plaquenil has not been tried, given her symptoms. She has not met with a stevedoring superintendent recently and has not received the pneumococcal vaccine yet. She completed her normal childhood vaccination series. Patient History, ROS and Physical exam reviewed and electronic chart updated December 01, 2024. The below documentation was copied from my (Steffany Guillen MD MPH) previous notes for review of history from previous visits. I have reviewed and verified all information during the patient visit and made updates where appropriate. The documentation was copied from note dated October 13, 2024 Since last visit Mikayla reports a complex history of recurrent symptoms and multiple hospital admissions over the past several weeks. She notes a pattern of symptoms correlating with her menstrual cycle and recent illnesses. During the week of August 18, she experienced abdominal pain, myalgias, cramping, weakness, fatigue, nausea, low-grade fevers, and ankle and leg edema. Her menstrual cycle began on August 27,followed by a hospital admission from August 27 to the for severe abdominal pain, nausea, emesis, and diarrhea. During this admission, she underwent an endoscopy with pyloric dilation from 16 to 20 cm, which was attributed to her gastroparesis. In early September, she experienced episodes of hypoglycemia, which she attributes to decreased oral intake due to a gastroparesis flare. On September 24, her menstrual cycle began again, accompanied by cephalalgia, abdominal pain, and malaise. She developed croup and a facial rash, for which she was prescribed antibiotics and steroids. On September 28, she noted significant leg and ankle edema, severe abdominal pain, diarrhea, nausea, fatigue, and oral ulcers. The following day, she awoke with pronounced labial edema. On October 03 and , she experienced diarrhea and malaise, with a coworker suspecting a viral infection. In early October, she had a mild POTS flare with palpitations, diaphoresis, clamminess, temperatures ranging from 95.5 F to 99.1 F, back pain, leg cramps, emesis, nausea, and oral ulcers. She reports that the oral ulcers have been particularly severe over the past three days, with swelling causing her lips to contact her teeth and gums. She notes a long-standing history of frequent illnesses since childhood, describing herself as always sick. August 25, 2024: Mikayla Bertrand is a 23 year old patient who presents with chief complaint: swelling She reports recurrent episodes of swelling of lips, ankles, and legs. Began around age 8-10 years and worsened in the last year. Associated sx of recurrent stomach pain, bloating, nausea, vomiting. Occasional diarrhea and constipation. She will have swelling calves and ankles. It is painful and not itchy.No rash on that area. There is occasional rash that she does not notice until taking a shower, tiny bumps along the arms and face. Not itchy. Sometimes involves of fever, oral ulcers. Episodes occur every 2 weeks. Every few months so severe that she is admitted for fluids and pain management. She may also have throat tightness, feels like lump in the throat. She was diagnosed with POTS around age 20 years, presented with tachychardia and sweating with position change. Managed with propanalol. No clear triggers for these episodes. More severe episodes seem right before menses. Menses is very regular every 4 weeks. Answers submitted by the patient for this visit: Allergy Review of Symptoms (Submitted on 08/25/2024) Abdominal pain: Yes Nausea: Yes Vomiting: Yes Diarrhea: Yes Constipation: Yes A rash: Yes Patient Entered Data 08/25/2024 Collateral History Allergic rhinitis No Skin tested Yes Have asthma No Eczema / Dermatitis No Sinus infections No Nasal Polyps No Urticaria / Hives Yes Angioedema Not Sure Food Allergy Yes Stinging insect allergy No Penicillin allergy Yes 08/25/2024 Environmental Exposure Pets No pets Mouse infestation No Cockroach infestation No Mold or Mildew No Air conditioning Yes Dust mite covers No Cigarette / Cigar smoke No Vaping No HISTORY REVIEWED (electronic chart updated): Current Outpatient Medications Medication Sig colchicine 0.6 mg capsule Take 1 capsule by mouth two times a day. meloxicam (MOBIC) 15 mg tablet Take 1 tablet by mouth once daily. predniSONE (DELTASONE) 5 mg tablet Take 4 tablets by mouth once daily for 3 days, THEN 3 tablets once daily for 3 days, THEN 2 tablets once daily for 3 days, THEN 1 tablet once daily for 3 days. berotralstat (ORLADEYO) 150 mg cap Take 150 mg by mouth once daily. icatibant (FIRAZYR) 30 mg/3 mL injection Inject 3 mL subcutaneously three times a day as needed (for acute swelling episodes). propranolol ER (INDERAL LA) 60 mg 24 hr capsule Take 1 capsule by mouth once daily. famotidine (PEPCID) 20 mg tablet Take 1 tablet by mouth two times a day. gabapentin (NEURONTIN) 100 mg capsule Take 1 capsule by mouth two times a day for 150 days. maalox-lidocaine (GI COCKTAIL) 2:1 liqd Take 5 mL by mouth every 6 hours as needed (nausea/vomiting). ondansetron orally disintegrating (ZOFRAN ODT) 8 mg disintegrating tablet Take 1 tablet by mouth three times a day before meals. pyridostigmine (MESTINON) 60 mg tablet Take 1 tablet by mouth three times a day. linaCLOtide (LINZESS) 290 mcg capsule Take 1 capsule by mouth daily at 6 am. Take capsule on an empty stomach at least 30 minutes before a meal at the same time each day. Capsule should be swallowed whole. DO NOT chew or crush. potassium chloride SR (MICRO-K) 10 mEq CR capsule Take 10 mEq by mouth. methylphenidate ER (CONCERTA) 18 mg biphasic tablet Take 1 tablet by mouth every morning for 30 days. MULTIVITAMIN ORAL Take 1 tablet by mouth once daily. No current facility-administered medications for this visit. ALLERGIES Allergen Reactions Cefdinir Swelling Hydrocodone-Acetami* Swelling Latex Swelling Penicillins Rash Benadryl [Diphenhyd* Mental Status Change agitation Droperidol Other: See Comments akathesia Compazine [Prochlor* Intolerance Restlessness, agitation Gluten GI Upset Versed [Midazolam H* Mental Status Change Pulling out IV's, extremely confused and restless, getting on hands and knees PAST MEDICAL HISTORY Diagnosis Date Acquired mallet toe of left foot Delayed emergence from anesthesia 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) off AEDs since 2017 GERD (gastroesophageal reflux disease) Mild intermittent asthma without complication MT (mallet toe), right Narcolepsy without cataplexy PMH - PAST MEDICAL HISTORY OF seizure [...] TONSIL AND ADENOI UNDER AGE 14 02/12/2010 SALPINGECTOMY Social History Socioeconomic History Marital status: Highest education level: Associate degree: occupational, technical, or vocational program Tobacco Use Smoking status: Never Passive exposure: Never Smokeless tobacco: Never Vaping Use Vaping status: Never Used Substance and Sexual Activity Alcohol use: No Drug use: No Sexual activity: Never Social History Narrative Pets: dog Social Drivers of Health Financial Resource Strain: Low Risk (10/01/2021) Overall Financial Resource Strain (CARDIA) Difficulty of Paying Living Expenses: Not hard at all Food Insecurity: No Food Insecurity (08/30/2024) Hunger Vital Sign Worried About Running Out of Food in the Last Year: Never true Ran Out of Food in the Last Year: Never true Transportation Needs: No Transportation Needs (08/30/2024) PRAPARE - Transportation Lack of Transportation (Medical): No Lack of Transportation (Non-Medical): No Physical Activity: Sufficiently Active (10/01/2021) Exercise Vital Sign Days of Exercise per Week: 3 days Minutes of Exercise per Session: 60 min Stress: No Stress Concern Present (10/01/2021) [employer] [place] [employer] Occupational [employer] - Occupational Stress Questionnaire Feeling of Stress : Only a little Social Connections: Moderately Integrated (10/01/2021) Social Connection and Isolation Panel [NHANES] Frequency of Communication with Friends and Family: More than three times a week Frequency of Social Gatherings with Friends and Family: Three times a week Attends Jainism Services: More than 4 times per year Active Member of Clubs or Organizations: Yes Attends Club or Organization Meetings: More than 4 times per year Marital Status: Never Housing Stability: Low Risk (10/01/2021) Housing Stability Vital Sign Unable to Pay for Housing in the Last Year: No Number of Places Lived in the Last Year: 1 Unstable Housing in the Last Year: No 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 Has FMLA. FAMILY HISTORY Problem Relation Age of Onset Graves Disease Mother Heart Mother SVT Allergies Father - seasonal Asthma Brother Allergies Maternal Grandmother Hypertension Maternal Grandfather Allergies Maternal Grandfather Heart Maternal Grandfather mat side/pat side Breast Cancer Paternal Grandmother No Known Problems Paternal Grandfather Anesthesia Problems No Family History Physical video exam: General: alert and appropriate, in no distress, well-hydrated, well nourished and happy, smiling, interactive Skin: no rash noted Head: normocephalic, no abnormality or lesion noted Eyes: no injection and visual acuity is grossly normal Ears: external ears normal, no mastoid tenderness Nose: external nose normal without rhinorrhea Respiratory: breathing non-labored and no grunting/flaring/retractions Chest: equal chest rise with normal respiratory effort Labs: Latest Ref Rng 07/13/2024 07/15/2024 07/21/2024 KHRIS Negative Positive ! KHRIS Titer 1:160 KHRIS Pattern Nuclear fine speckled CCP Antibody IgG Qualitative Negative Negative CCP Antibody, IgG <20 Units <15 Sm Antibody Negative Negative Anti-Sm <1.0 AI <0.2 DNA Antibody <=200 IU/mL 25 20 DNA Antibody Qualitative Interpretation Negative Negative Negative TOOL LAPPER HAND Antibody QUAL Negative Negative Anti-TOOL LAPPER HAND <1.0 AI 0.4 SSA Antibody Qual Negative Negative Anti-SSA <1.0 AI <0.2 Anti-SSB <1.0 AI 0.4 SSB Antibody Qual Negative Negative CENTROMERE AB QUAL Negative Negative Centromere Ab <1.0 AI <0.2 Scleroderma Ab Qual Negative Negative Scl-70 Abs, EIA <1.0 AI <0.2 BARBIE 1 ANTIBODY QUAL Negative Negative Barbie 1 Antibody <1.0 AI <0.2 Ribosomal TOOL LAPPER HAND Qualitative Negative Negative Ribosomal TOOL LAPPER HAND Ab <1.0 AI <0.2 Chromatin Ab Qual Negative Negative Chromatin Ab <1.0 AI <0.2 Mitochondrial Ab Screen Negative Positive ! Mitochondrial M2 IgG Quantitative <=20.0 Units 29.1 (H) CRP <0.9 mg/dL <0.3 Rheumatoid Factor <16 IU/mL <10 WSR 0 - 20 mm/hr 2 C3 86 - 166 mg/dL 115 C4 13 - 46 mg/dL 12 (L) THYROID PEROXIDASE ANTIBODY <5.6 IU/mL 17.3 (H) CK 42 - 196 U/L 65 C1 Esterase Inhibitor Function >=41 % 105 Latest Ref Rng 08/25/2024 C1 Esterase Inhibit 21 - 38 mg/dL 31 C4 13 - 46 mg/dL 14 C2 Complement 1.6 - 4.0 mg/dL 2.0 C1 Esterase Inhibitor Function >=41 % 100 Vitamin B12 232 - 1,245 pg/mL 756 C1q Complement Protein 109 - 242 ug/mL 103 (L) Vitamin B6, Plasma 20.0 - 125.0 nmol/L 159.4 (H) Latest Ref Rng 10/13/2024 11/04/2024 Pneumo Serotype 1 IgG (P13,PNX) ug/mL 1.38 Pneumo Serotype 2 IgG (PNX) ug/mL 0.12 Pneumo Serotype 3 IgG (P13,PNX) ug/mL 3.32 Pneumo Serotype 4 IgG (P7,P13,PNX) ug/mL 0.05 Pneumo Serotype 5 IGG (P13,PNX) ug/mL 5.87 Pneumo Serotype 6B IgG (P7,P13,PNX) ug/mL 0.23 Pneumo Serotype 7F IgG (P13,PNX) ug/mL <0.04 Pneumo Serotype 8 IgG (PNX) ug/mL 0.10 Pneumo Serotype 9N IgG (PNX) ug/mL 0.06 Pneumo Serotype 9V IgG (P7,P13,PNX) ug/mL 0.06 Pneumo Serotype 10A IgG (PNX) ug/mL 1.49 Pneumo Serotype 11A IgG (PNX) ug/mL 0.24 Pneumo Serotype 12F IgG (PNX) ug/mL 0.31 Pneumo Serotype 14 IgG (P7,P13,PNX) ug/mL 0.99 Pneumo Serotype 15B IgG (PNX) ug/mL 1.05 Pneumo Serotype 17F IgG (PNX) ug/mL 0.92 Pneumo Serotype 18C IgG (P7,P13,PNX) ug/mL 2.79 Pneumo Serotype 19A IGG (P13,PNX) ug/mL 1.34 Pneumo Serotype 19F IgG (P7,P13,PNX) ug/mL 5.89 Pneumo Serotype 20 IgG (PNX) ug/mL 0.22 Pneumo Serotype 22F IgG (PNX) ug/mL 0.08 Pneumo Serotype 23F IgG (P7,P13,PNX) ug/mL 0.18 Pneumo Serotype 33F IgG (PNX) ug/mL <0.07 Pneumococcal Interpretation See Note Protein, Total 6.3 - 8.0 g/dL 7.1 Protein, Total 6.3 - 8.0 g/dL 7.1 Albumin 3.9 - 4.9 g/dL 4.8 Calcium 8.5 - 10.2 mg/dL 9.6 Bilirubin, Total 0.2 - 1.3 mg/dL 0.2 Alkaline Phosphatase 34 - 123 U/L 47 AST 13 - 35 U/L 22 ALT 7 - 38 U/L 15 Glucose 74 - 99 mg/dL 87 BUN 7 - 21 mg/dL 15 Creatinine 0.58 - 0.96 mg/dL 0.65 Sodium 136 - 144 mmol/L 141 Potassium 3.7 - 5.1 mmol/L 4.2 Chloride 98 - 107 mmol/L 104 CO2 22 - 30 mmol/L 26 Anion Gap 8 - 15 mmol/L 11 eGFR >=60 mL/min/1.73m 128 CD3+ T Cell % 60 - 89 % 74 CD3+ T Cell # 958 - 2,388 cells/uL 1,123 CD3+CD4+ T Cell % 34 - 61 % 46 CD3+CD4+ T Cell # 533 - 1,674 cells/uL 696 CD3+CD8+ T Cell % 10 - 41 % 22 CD3+CD8+ T Cell # 175 - 958 cells/uL 331 CD3-CD19+ B Cell % 5 - 22 % 19 CD3-CD19+ B Cell # 75 - 660 cells/uL 291 CD3-CD16+CD56+ NK Cell % 5 - 25 % 7 CD3-CD16+CD56+ NK Cell # 102 - 565 cells/uL 105 CD3+CD4+/CD3+CD8+ Ratio 1.10 - 3.25 2.10 Albumin 3.43 - 5.41 g/dL 4.75 Alpha 1 Globulin 0.18 - 0.43 g/dL 0.31 Alpha 2 Globulin 0.42 - 0.98 g/dL 0.55 Beta Globulin 0.61 - 1.17 g/dL 0.77 Gamma Globulin 0.53 - 1.51 g/dL 0.72 Interpretation (Prot Electro) No definitive M protein is identified on protein electrophoresis. No definitive M protein is identified on protein electrophoresis. M-Protein Location -- M-Protein Concentration <=0.00 g/dL 0.00 SPE Staff Review Reviewed by Dr. Griselda Foss MD IgG 700 - 1,600 mg/dL 738 IgA 70 - 400 mg/dL 105 IgM 40 - 230 mg/dL 121 Diphtheria Ab IU/mL 1.6 Tetanus Ab, IgG IU/mL 4.4 DNA Antibody <=200 IU/mL 9 DNA Antibody Qualitative Interpretation Negative Negative Sm Antibody Negative Negative Anti-Sm <1.0 AI <0.2 TOOL LAPPER HAND Antibody QUAL Negative Negative Anti-TOOL LAPPER HAND <1.0 AI 0.4 SSA Antibody Qual Negative Negative Anti-SSA <1.0 AI <0.2 Anti-SSB <1.0 AI 0.4 SSB Antibody Qual Negative Negative CENTROMERE AB QUAL Negative Negative Centromere Ab <1.0 AI <0.2 Scleroderma Ab Qual Negative Negative Scl-70 Abs, EIA <1.0 AI <0.2 BARBIE 1 ANTIBODY QUAL Negative Negative Barbie 1 Antibody <1.0 AI <0.2 Ribosomal TOOL LAPPER HAND Qualitative Negative Negative Ribosomal TOOL LAPPER HAND Ab <1.0 AI <0.2 Chromatin Ab Qual Negative Negative Chromatin Ab <1.0 AI <0.2 C1q Complement Protein 109 - 242 ug/mL 90 (L) C2 Complement 1.6 - 4.0 mg/dL 2.0 Complement Def Assay 41.7 - 95.1 U/mL 88.7 Mannose Binding Lectin >=76 ng/mL <40 (L) IgE <114.0 kU/l 7.0 Anti-C1q Ab IgG 0 - 19 Units 1 WSR 0 - 20 mm/hr 2 CRP <0.9 mg/dL <0.3 Ferritin 14.7 - 205.1 ng/mL 15.8 Crithidia lucillae Negative Negative C4 13 - 46 mg/dL 15 C3 86 - 166 mg/dL 128 Assessment and Plan: 1) 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 Clear pattern of triggers around menses and infectious illness. Started on Orladeyo on November 04; no significant improvement noted after 4 weeks. Recent severe flare led to ER visit; symptoms included severe leg pain, swelling, fatigue, weakness, nausea, abdominal pain, mouth ulcers, intermittent fevers, and diarrhea. C1q levels low, suggesting acquired hereditary angioedema. No evidence of systemicautoimmune process or cancer. Rheumatology suspects an autoinflammatory condition, possibly genetica lly related. - Continue Orladeyo for a minimum of 4 months to assess efficacy. - Initiated Icatibant for acute treatment of severe leg swelling, abdominal pain, and lip swelling;patient to watch instructional video and schedule a nurse visit if needed. - Follow-up in 3 months to evaluate Orladeyo efficacy and Icatibant use. - continue written journal of episodes, and tracking menses and other symptoms to help delineate any patterns to assist in diagnosis 2) Recurrent infections Immune screening labs showed low mannose-binding lectin but otherwise normal immune function. Pneumococcal titers showed low protection (7 out of 23 serotypes). - Administer Pneumovax vaccine to boost immunity and evaluate response. - Follow-up labs to be drawn 4 weeks post-vaccination to assess immune response. 3) Autoimmune gastritis, gastroparesis - nutrition screening labs due to ongoing neuropathy - normal B12, B6 - Following with GI for management. Symptoms include abdominal pain and diarrhea. 4) Muscle weakness (M62.81), Arthralgia of multiple sites (M25.50), oral ulcers - rheumatology following, trial of pred taper with significant relief of sx. Plan to transition to mobic and if not effective considering HCQ. - also starting colchicine per rheum for ulcers, muscle sx 5) POTS - neurology following Discussed medication dosage, usage, side effects, and goals of treatment in detail. Steffany Guillen MD [facility] documented in this encounterMartin [facility] Telephone encounter Note * Telephone Encounter - Tena Jenkins MA - 11/25/2024 9:23 AM EDT Faxed [employer] patient support form to them at [phone]. Will await determination. [facility]05[facility] Telephone encounter Note* Telephone Encounter - Steffany Guillen MD - 11/25/2024 8:46 AM EDT Completed in outbox. [facility] encounter Note* Telephone Encounter - Tena Jenkins MA - 11/23/2024 2:14 PM EDT Gé[employer] called back & stated on page 1 section 4, prescriber needs to sign on top line NOT bottom line where prescriber signed. Génesis stated Dr. Guillen signed on the DARVIN line, even though it says substitutions permitted under where doctor signed. Placed form in Dr. Guillen's inbox for signature. [facility]05-20-[facility] Telephone encounter Note* Telephone Encounter - Tasha Horn RN - 11/23/2024 11:58 AM EDT (From 11/16/24 Tel Enc) Génesis Clark from [employer] Support program returning call [phone]---states they did NOT receive page [id number] pt's signature. Génesis requesting pages 1 and 3 to be faxed to [phone]--done w/confirmation Will await pt support determination [facility]05[facility] Telephone encounter Note* Telephone Encounter - Tasha Horn RN - 11/16/2024 1:24 PM EDT Horacio contacted at - [employer] asst: spoke w/ Disha transferred and left voice mail on Génesis Clark---advised we had faxed Start form over this am at [phone]--(see 10/18/24 tel Enc) ; if they do no have this to please call or faxform to us. (Numbers provided) [facility]05-13-2025 Miscellaneous Notes* Telephone Encounter - Tasha Horn RN - 11/16/2024 1:24 PM EDT Horacio contacted at - [employer] asst: spoke w/ Disha transferred and left voice mail on Génesis Clark---advised we had faxed Start form over this am at [phone]--(see 10/18/24 tel Enc) ; if they do no have this to please call or faxform to us. (Numbers provided) * Telephone Encounter - Areli Levi - 11/16/2024 11:12 AM EDT Génesis from [facility] patient assistance called and stated that they need the Start form for the Firazyr faxed to them, please send form to [phone] documented in this encounterMartin [facility] Hospital05-13-2025 Telephone encounter Note * Telephone Encounter - Areli Levi - 11/16/2024 11:12 AM EDT Génesis from [facility] patient assistance called and stated that they need the Start form for the Firazyr faxed to them, please send form to [phone] [facility]05[facility] Telephone encounter Note* Telephone Encounter - Tena Jenkins MA - 11/16/2024 10:13 AM EDT JARED thomson denial for icatibant in Dr. Guillen's inbox for review. I faxed [employer] patient assistance form for icatibant to them at [phone] along with copy of JARED rollins. Will await to hear from [facility] patient support. [facility]05[facility]05[facility] Telephone encounter Note* Telephone Encounter - Tena Jenkins MA - 11/08/2024 9:56 AM EDT Received fax from [employer] stating they upheld the PA denial of icatibant. Placed denial letter in Dr. Guillen's inbox for review. [facility]04[facility] Telephone encounter Note* Telephone Encounter - Tena Jenkins MA - 11/03/2024 3:37 PM EDT We canceled RX as it was sent there in error. [facility]04-30[facility] Miscellaneous Notes* Telephone Encounter - Tena Jenkins MA - 11/03/2024 3:37 PM EDT We canceled RX as it was sent there in error. * Telephone Encounter - Areli Levi - 11/03/2024 3:31 PM EDT [facility] called and stated that they are unable to fill the script for berotralstat and its not something they can order.Please advice documented in this encounterMartin [facility] Hospital04-30-2025 Telephone encounter Note * Telephone Encounter - Areli Levi - 11/03/2024 3:31 PM EDT [facility] called and stated that they are unable to fill the script for berotralstat and its not something they can order.Please advice [facility]04-30-20[facility] Telephone encounter Note* Telephone Encounter - Tasha Horn RN - 11/03/2024 2:51 PM EDT See 10/22/24 [facility]30[facility] Miscellaneous Notes* Telephone Encounter - Tasha Horn RN - 11/03/2024 2:51 PM EDT See 10/22/24 * Telephone Encounter - Joann Cain - 11/03/2024 1:26 PM EDT Britany Gu, from [employer] is returning a call in regards to the patient. She would liketo speak to the clinical support team of Dr. Guillen, please advise. Thank you! documented in this encounterMartin Memorial Hospital04-30-2025 Telephone encounter Note * Telephone Encounter - Joann Cain - 11/03/2024 1:26 PM EDT Britany Gu, from [employer] is returning a call in regards to the patient. She would liketo speak to the clinical support team of Dr. Guillen, please advise. Thank you! [facility]04-30-[facility] Telephone encounter Note* Telephone Encounter - Tasha Horn RN - 11/03/2024 1:03 PM EDT [facility] contacted at [phone] ---recording states appeal questionnaire was sent to office. (This questionnaire was received 11/02/24 via fax and placed in 's in-box for review and completion---see 10/22/24 Tel Enc) [facility]04[facility] Miscellaneous Notes* Telephone Encounter - Tasha Horn RN - 11/03/2024 1:03 PM EDT [facility] contacted at [phone] ---recording states appeal questionnaire was sent to office. (This questionnaire was received 11/02/24 via fax and placed in 's in-box for review and completion---see 10/22/24 Tel Enc) * Telephone Encounter - Zuleyma Garcias - 11/03/2024 11:43 AM EDT [facility] regarding some clinical questions regarding pts Orladeyo. Please call to discuss. Thank you! documented in this encounterMartin [facility] Hospital04-30-2025 Telephone encounter Note * Telephone Encounter - Zuleyma Garcias - 11/03/2024 11:43 AM EDT [facility] regarding some clinical questions regarding pts Orladeyo. Please call to discuss. Thank you! [facility]04[facility] Telephone encounter Note* Telephone Encounter - Tena Jenkins MA - 11/02/2024 1:47 PM EDT See encounter from 10/22/24, this is being addressed there. [facility]04[facility] Miscellaneous Notes* Telephone Encounter - Tena Jenkins MA - 11/02/2024 1:47 PM EDT See encounter from 10/22/24, this is being addressed there. * Telephone Encounter - Joann Cain - 11/02/2024 1:26 PM EDT Pharmacy appeals staff will be faxxing over some forms, they are asking we fax them to back to the number they will provide. Thank you. * Telephone Encounter - Areli Levi - 11/02/2024 1:18 PM EDT [facility] PA appeals department called and needs clinical questions answered regarding the Icatibantinjection, please call them at [phone] documented in this encounterMartin [facility] Hospital04-29-2025 Telephone encounter Note * Telephone Encounter - Joann Cain - 11/02/2024 1:26 PM EDT Pharmacy appeals staff will be faxxing over some forms, they are asking we fax them to back to the number they will provide. Thank you. [facility]04-29-[facility] Telephone encounter Note* Telephone Encounter - Areli Levi - 11/02/2024 1:18 PM EDT [facility] [place] appeals department called and needs clinical questions answered regarding the Icatibantinjection, please call them at [phone] [facility]04[facility] Telephone encounter Note* Telephone Encounter - Tena Jenkins MA - 11/02/2024 10:11 AM EDT Faxed appeal letter for icatibant (firazyr), last office visit, & C1 labs to Opt at [phone]. . Will await determination. [facility]04-[facility] Telephone encounter Note* Telephone Encounter - Steffany Guillen MD - 11/02/2024 9:51 AM EDT I see two appeal letters, firazyr and orladeyo, when I look under letters, both written yesterday. Thanks. [facility]04-29-20[facility] Telephone encounter Note* Telephone Encounter - Tena Jenkins MA - 11/02/2024 9:40 AM EDT No appeal letter written for firazyr (icatibant)? Fax in your inbox for review. [facility]04-28-2025 [facility]04-28-[facility] History of Present illness Narrative* Yung Celeste MD - 11/01/2024 2:00 PM EDT Images from the original note were not included. Rheumatology History & Physical Patient name: Mikayla Bertrand Requesting provider: No att. providers found SUBJECTIVE History of Present Illness: Ms. Mikayla Bertrand is a 24 year old female who has a past medical history of Acquired mallet toe of left foot, Epilepsy, GERD, Narcolepsy, POTS, autoimmune gastritis with gastroparesis (antiparietal+)who presents for rheumatologic evaluation. Patient is from [place], [place] an has previously been evaluated by Dr Cortés. 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 Allergies: She is allergic to cefdinir, hydrocodone-acetaminophen, latex, penicillins, benadryl [diphenhydramine], droperidol, compazine [prochlorperazine], gluten, and versed [midazolam hcl]. Current Meds: icatibant, propranolol er, famotidine, gabapentin, maalox- lidocaine, ondansetron orally disintegrating, pyridostigmine, linaclotide, potassium chloride sr, methylphenidate er, and multivitamin. Family History: family history includes Allergies in her father, maternal grandfather, and maternalgrandmother; Asthma in her brother; Breast Cancer in her paternal grandmother; Graves Disease in her mother; Heart in her maternal grandfather and mother; Hypertension in her maternal grandfather; NoKnown Problems in her paternal grandfather. Mother has grave's disease Social History: She reports that she has never smoked. She has never been exposed to tobacco smoke.She has never used smokeless tobacco. She reports that she does not drink alcohol and does not use drugs. Labs: Latest Ref Rng & Units 09/01/2024 08/29/2024 08/28/2024 08/27/2024 CBC WBC 3.70 - 11.00 k/uL 4.32 3.72 4.11 8.69 Hemoglobin 11.5 - 15.5 g/dL 11.6 11.9 11.6 14.4 Hematocrit 36.0 - 46.0 % 34.7 35.0 34.8 42.3 Platelet Count 150 - 400 k/uL 140 155 144 210 Abs Neut (ANC) 1.45 - 7.50 k/uL 6.72 Abs Lymph 1.00 - 4.00 k/uL 1.37 Latest Ref Rng & Units 09/02/2024 09/01/2024 08/31/2024 08/30/2024 CMP Sodium 136 - 144 mmol/L 140 140 143 147 Potassium 3.7 - 5.1 mmol/L 3.7 3.7 3.6 3.4 Chloride 98 - 107 mmol/L 105 107 109 111 CO2 22 - 30 mmol/L 25 24 23 20 Glucose 74 - 99 mg/dL 108 86 90 109 BUN 7 - 21 mg/dL 10 9 7 6 Creatinine 0.58 - 0.96 mg/dL 0.91 0.85 0.82 0.71 Calcium 8.5 - 10.2 mg/dL 9.0 8.7 8.8 8.9 Latest Ref Rng & Units 07/13/2024 03/01/2024 04/10/2020 08/10/2019 ESR, WSR WSR 0 - 20 mm/hr 2 2 2 Sed Rate, Westergren 0 - 20 mm/hr 2 Latest Ref Rng & Units 07/13/2024 03/01/2024 04/10/2020 08/10/2019 CRP CRP <0.9 mg/dL <0.3 <0.3 <0.1 0.1 Latest Ref Rng & Units 08/25/2024 07/13/2024 C3, C4 C3 86 - 166 mg/dL 115 C4 13 - 46 mg/dL 14 12 Latest Ref Rng & Units 07/13/2024 03/01/2024 02/02/2024 04/05/2020 CK CK 42 - 196 U/L 65 60 61 80 Latest Ref Rng & Units 07/13/2024 02/04/2024 RF and CCP Rheumatoid Factor <16 IU/mL <10 <10 CCP Antibody IgG Qualitative Negative Negative CCP Antibody, IgG <20 Units <15 Latest Ref Rng & Units 07/13/2024 10/03/2009 Hepatitis Screen Heparin Anti Xa <0.10 IU/mL Test Not Performed Hep B Core Ab, Total Negative Negative Hep B Surf Ab Qual Positive Hep C Antibody IA Negative Negative Hep B Surface Ag Negative Negative Latest Ref Rng & Units 10/10/2021 10/03/2021 01/19/2020 11/09/2018 TB Screen TB Interpretation No evidence of current or previous infection with Mycobacterium tuberculosis. No evidence of current or previous infection with Mycobacterium tuberculosis. TB Result Negative Negative Negative TB INTRADERMAL TEST 0 x 0 - 10 x 10 mm 0.00 mm 0x0mm Latest Ref Rng & Units 08/31/2024 07/21/2024 07/13/2024 02/04/2024 Antibodies KHRIS Negative Positive Positive KHRIS Titer 1:160 1:80 KHRIS Pattern Nuclear fine speckled Nuclear homogeneous DNA Antibody <=200 IU/mL 20 25 Anti-Sm <1.0 AI <0.2 Sm Antibody Negative Negative Ribosomal TOOL LAPPER HAND Ab <1.0 AI <0.2 Ribosomal TOOL LAPPER HAND Qualitative Negative Negative Chromatin Ab <1.0 AI <0.2 Chromatin Ab Qual Negative Negative SSA Antibody Qual Negative Negative Negative Anti-SSA <1.0 AI <0.2 <0.2 Anti-SSB <1.0 AI 0.4 0.2 TOOL LAPPER HAND Antibody QUAL Negative Negative Scleroderma Ab Qual Negative Negative Scl-70 Abs, EIA <1.0 AI <0.2 Centromere Ab <1.0 AI <0.2 CENTROMERE AB QUAL Negative Negative BARBIE-1 ANTIBODY, IGG <1.0 AI <0.2 BARBIE 1 ANTIBODY QUAL Negative Negative PT Sec 9.7 - 13.0 sec 11.7 PT INR 0.9 - 1.3 1.1 Latest Ref Rng & Units 06/29/2024 02/03/2024 01/30/2024 01/27/2024 Urinalysis Protein, Urine Trace, Negative Negative Negative Negative Negative RBC, Urine 0-3 /HPF 3-5 /HPF 0-3 /HPF 0-3 /HPF >25 /HPF 08/31: PLT 140 WBC/Hgb WNL sCr WNL 07/31: ESR WNL CRP WNL C3 WNL C4 of 12 (-)DsDNA KHRIS 1:160 nuclear fine speckled (-)MODESTA (-)Hepatitis 01/27: KHRIS 1:80 nuclear homogenous (-)SSA/SSB NM PET/CT NEUROENDOCRINE WHOLE BODY IMAGING 04/29 HEAD AND NECK: Head: No radiotracer avid lesion or mass effect in the intracranial compartment. Aerodigestive Tract: No radiotracer avid lesion. Lymph Nodes: No radiotracer avid lymphadenopathy. Neck Soft Tissues: No radiotracer avid thyroid nodule. CHEST: Lungs & Pleura: No radiotracer avid mass, nodule, or consolidation. No pleural effusion. Lymph Nodes: No radiotracer avid lymphadenopathy. Mediastinum: No radiotracer avid mass. Cardiovascular: Blood pool activity. No pericardial effusion. Normal heart size. Chest Wall: No radiotracer avid soft tissue lesion. ABDOMEN AND PELVIS: Hepatobiliary: No radiotracer avid lesion. No measurable mass. Spleen: No radiotracer avid lesion. No splenomegaly. Pancreas: No radiotracer avid lesion. Adrenals: No radiotracer avid nodule. Urinary Tract: Physiologic radiotracer excretion in the renal collecting systems and urinary bladder. No hydronephrosis. GI Tract: No radiotracer avid lesion. No bowel dilation. Peritoneum: No radiotracer avid lesion. No ascites. Lymph Nodes: No radiotracer avid lymphadenopathy. Vasculature: Blood pool activity. Pelvic Organs: No radiotracer avid lesion. MUSCULOSKELETAL: Bones: No radiotracer avid lesion. No lytic or sclerotic lesion. Soft Tissues: No radiotracer avid lesion. RHEUMATOLOGY EVALUATION 11/01/2024 Patient seen and examined - referred for +KHRIS. She is from [place], [place] and has seen Dr [facility] - last seen 08/20/24 per note 23-year-old pleasant lady with low titer positive KHRIS is here for follow-up. She also had a history of borderline TOOL LAPPER HAND of 1 in April 2023 but on repeat testing negative. KHRIS recently on blood work July 2024 was low titer 1: 160 and associated with positive mitochondrial antibody 29.1 and positive thyroperoxidase antibody 173. C4 was slightly low at 12. She describes recent flare last week lasting 3 to 4 days where she had severe achiness in her legs, abdominal pain, cramping, nausea and some low-grade fevers of 99.4. She took Tylenol, ibuprofen and hydrated well with some improvement. She had 1 perioral ulcer at the time. Today she has some achiness 2/10 all over. She has no joint swelling. She has no rashes. She has no trouble breathing or chest pain. She gives episodes of lip swelling in the past. She has a history of POTS and sees neurologist and is on beta-alvino. She has had hospitalizations for her flares in the past. Colonoscopy recently July 2024 was normal. She continues to see phone specialist. She is on a gluten-free diet because of gluten sensitivity. 23-year-old pleasant lady with 1. Abnormal serologies-low titer KHRIS, recently 1: 160, borderline TOOL LAPPER HAND of 1 in the past but recentlynegative, positive thyroid peroxidase antibody and positive mitochondrial antibody but no evidence for Palmira's disease or primary biliary cholangitis. Thyroid function normal and liver enzymes normal. No clear evidence for systemic autoimmune process 2. History of POTS syndrome-has had positivetilt table testing in the past and sees neurologist regularly. On beta-alvino 3. Abdominal pain, intermittent diarrhea and constipation-has been diagnosed with autoimmune gastritis and gastroparesis-has positive antiparietal antibodies. Sees phone specialist regularly. Has had EGD, recent colonoscopy normal July 2024 4. Recurrent fevers, oral ulcerations, joint pains-describes flares every 2 weeks-symptoms last fora week at a time. Also associated with GI symptoms and weight loss. Has been hospitalized in the past for IV hydration-secondary to POTS versus other? Recent flare-etiology unclear 5. Gluten-free diet-celiac serologies on gluten-free diet negative #6 family history of Graves'-patient also has positive thyroperoxidase antibody but thyroid function normal #7 perioral dermatitis-has seen ccnp #8 low C4-C1 esterase inhibitor negative. Rule out angioedema with various symptoms. C3 normal Plan Has history of POTS but not seeing hypermobility EDS on exam Positive mitochondrial antibody and thyroperoxidase antibody but thyroid function normal and liver enzymes normal-continue to monitor closely for primary biliary cholangitis and Palmira thyroiditis Continue follow-up with phone specialist-recent colonoscopy normal Referred to chain dyer to rule out angioedema-has low C4, history of lip swelling, intermittent episodes of abdominal pain-C1 esterase inhibitor levels negative Symptoms may be associated with POTS, has had hospitalizations for GI symptoms which could be from autonomic dysfunction and GI dysmotility. Continue hydration, continue follow-up with neurologist and continue beta-blockers With episodes of fevers, oral ulcerations, abdominal pain recommended NGS panel for inflammatory disorders through [employer] but unable to get it approved-will consider getting this test [id number] if workup through reference data expert and phone specialist negative Continue to monitor thyroid function regularly and continue to monitor liver enzymes closely === TODAY: -h/o abnormal serologies +KHRIS +TOOL LAPPER HAND (previous borderline, now resolved) +TPO (TFTs WNL) +anti-mitochondrial (LFTs WNL) low C4, mild thrombocytopenia and +antiparietal ab (follows with GI for autoimmune gastritis and gastroparesis) Today: -notes Dr Cortés was trying to refer her to reference data expert for concern for hereditary angioedema; patienthas shown photographs of lip swelling, leg swelling. 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 Clear pattern of triggers around menses and infectious illness - given frequency of symptoms will start prophylactic regimen, reviewed risks and benefits of options. 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 Complex history: More recently: Notes new symptoms at the age of 19 - started to experiencing bouts of lip swelling,she recalls rash history very often -started having flares between [age] years old nausea, abdominal pain worked up by Gastroenterologists; sees Dr Roca and Dr Lui in GI - diagnosed with gastroparesis at age [age] About 1 year ago started to experience flares -once a month last year - flares themselves would last for 4-5 days: fever - Tmax 99.5 - 101, rashes (erythematous, maculopapular, NON-pruritic I would always have a rash with the fever, painful aphthous stomatitis along with polymyalgia, polyarthralgia of legs, ankles, hips, shoulders + abdominal pain; +hyperhidrosis +intermittent LAD cervical/posterior auricular. ROS (-)pleurisy, hearing loss. No history of joint swelling/redness/warmth. No h/o vaginal or genital ulcers. No h/o inflammatory ocular disease; notes she had EGD/colonoscopy that did NOT show IBD/Crohn's Diseaes -antipyretics during this time was helping but IBUprofen helped more they didn't want me to take it because of my stomach Notes last six months significant severity -feels now has symptoms are more regular, constant at least 4/7 days of the week Now: nausea/vomiting/abdominal pain, diarrhea, outside of GI symptoms -tons of muscle and joint pain shoulders, back, hips, legs, ankles - notes her joint pains correspond with her episodes wellingof legs; painful oral aphthous stomatitis, fevers, rashes, fatigue (it's not like my narcolepsy type of fatigue) I can walk but it feels very weak Patient great grandfather is algerian PREDNISONE has helped symptoms like abdominal pain, mouth sores, rashes, joint pain Recalls a short course of prednisone 40mg, 20mg, taper notes her symptoms went away. Recurrent infections - h/o recurrent croup ROS +dry eyes Today: joint and muscle pain, no current fever, oral ulcers, rashes, LAD Notes she had swollen glands this past weekend. No sore throat, no ocular inflammatory disease, pleurisy, raynaud's, joint swelling, nasal ulcers -last abdominal imaging 04/29 Rheumatologic ROS (+) in bold; all rest are negative/denies history of: Chest pain, shortness of breath, history of pleural effusion or pericarditis, oral/nasal ulcers, photosensitivity, rash, history of DVT/PE/&or miscarriages, renal disease, seizures - H/O epilepsy last seizure years ago, dryeyes, dry mouth, cervical lymphadenopathy or parotid gland swelling, raynaud's phenomenon, alopecia, psoriasis, history of iritis/uveitis or scleritis, nail pitting, dactylitis, history of sacroiliitis or inflammatory bowel disease, arm weakness in raising arms above head, leg weakness in standing up from a seated position, skin tightening, dysphagia, changes in vision, scalp tenderness, jaw elder ication, stiffness in shoulders/hip girdle, auricular or nasal chondritis Answers submitted by the patient for this visit: Review of Systems Rheumatology (Submitted on 11/01/2024) Fever : Yes Recent unintentional weight change: No Eye pain: No Eye redness: No Vision Disturbance: No Eye Dryness: Yes Nosebleeds: No Sores in your mouth: Yes Trouble Swallowing: No Dry Mouth: No Chest pain: No Leg Swelling: Yes A cough: No Shortness of breath: No Pain with breathing: No Heartburn: Yes Abdominal pain: Yes Diarrhea: Yes Black tarry stools: No Blood in urine: No Pain or burning with urination: No Joint pain or stiffness: Yes Muscle weakness: Yes Muscle aches: Yes Joint swelling: Yes Morning Stiffness in Joints: Yes A rash: Yes Do you have sun sensitive rashes?: Yes Skin Color Changes: No Hair Loss: No Nail Changes: No Headaches: Yes Numbness: No Memory Loss: No Swollen Glands: Yes OBJECTIVE 11/01/24 1356 BP: 115/77 Pulse: 68 Temp: 36.9 C (98.5 F) TempSrc: Temporal Weight: 53.5 kg (118 lb) Height: 157.5 cm (5' 2) General: No acute distress. Eye: Pupils are equal, round and reactive to light, Extraocular movements are intact, Normal conjunctiva. HENT: Oral mucosa is moist, no oral ulcerations, no areas of alopecia appreciated Neck: Supple, Non-tender. No lymphadenopathy Respiratory: Lungs are clear to auscultation, Respirations are non-labored, Breath sounds are equal. Cardiovascular: Normal rate, Regular rhythm. Gastrointestinal: soft, non-tender, non-distended. Musculoskeletal: evidence of joint hypermobility, no synovitis appreciated. Integumentary: Warm, Dry. +livedo reticularis appearance of legs Neurologic: Alert, Oriented. Psychiatric: Cooperative. IMPRESSION & RECOMMENDATIONS Ms. Mikayla Bertrand is a 24 year old female who has a past medical history of Acquired mallet toe of left foot, Epilepsy, GERD, Narcolepsy, POTS, autoimmune gastritis with gastroparesis (antiparietal+)who presents for rheumatologic evaluation. Patient is from [place], [place] an has previously been evaluated by Dr Cortés - isaura to hi. 08/31: PLT 140 WBC/Hgb WNL sCr WNL 07/31: ESR WNL CRP WNL C3 WNL C4 of 12 (-)DsDNA KHRIS 1:160 nuclear fine speckled (-)MODESTA (-)Hepatitis 01/27: KHRIS 1:80 nuclear homogenous (-)SSA/SSB NM PET/CT NEUROENDOCRINE WHOLE BODY IMAGING 04/29 HEAD AND NECK: Head: No radiotracer avid lesion or mass effect in the intracranial compartment. Aerodigestive Tract: No radiotracer avid lesion. Lymph Nodes: No radiotracer avid lymphadenopathy. Neck Soft Tissues: No radiotracer avid thyroid nodule. CHEST: Lungs & Pleura: No radiotracer avid mass, nodule, or consolidation. No pleural effusion. Lymph Nodes: No radiotracer avid lymphadenopathy. Mediastinum: No radiotracer avid mass. Cardiovascular: Blood pool activity. No pericardial effusion. Normal heart size. Chest Wall: No radiotracer avid soft tissue lesion. ABDOMEN AND PELVIS: Hepatobiliary: No radiotracer avid lesion. No measurable mass. Spleen: No radiotracer avid lesion. No splenomegaly. Pancreas: No radiotracer avid lesion. Adrenals: No radiotracer avid nodule. Urinary Tract: Physiologic radiotracer excretion in the renal collecting systems and urinary bladder. No hydronephrosis. GI Tract: No radiotracer avid lesion. No bowel dilation. Peritoneum: No radiotracer avid lesion. No ascites. Lymph Nodes: No radiotracer avid lymphadenopathy. Vasculature: Blood pool activity. Pelvic Organs: No radiotracer avid lesion. MUSCULOSKELETAL: Bones: No radiotracer avid lesion. No lytic or sclerotic lesion. Soft Tissues: No radiotracer avid lesion. Pleasant 24 y/o F with complex history - presenting for second opinion in rheumatology (last saw Dolores in [facility]) - new to me. 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 Prior labs with mildly low C4of 12 and follows with allergy/immunology for concern for hereditary angioedema given recurrent bouts of leg swelling, abdominal pain (possibly 2/2 angioedema) and lip swelling - she will be startingOrladeyo Berotralstat 150mg daily soon with allergy/immunology. Also follows with them for recurrent infections - undergoing immunodeficiency workup labs with low mannose binding lectin < 40. While from rheumatologic perspective one could consider undifferentiated CTD (UCTD) diagnosis given +KHRIS+fevers +mouth sores +dry eyes +thrombocytopenia +LAD and low C4 her current presentation is actually more concerning for possible periodic fever syndrome/autoinflammatory syndrome. 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 Confounders in her current clinical presentation include 1) h/o dysautonomia/POTS 2) recent diagnosis of hereditary angioedema (will be starting new medication berotralstat soon) 3) h/o autoimmune gastritis, managed by GI Irrespective her bouts of fevers, aphthous stomatitis, rashes, LAD, MSK symptoms, sicca make me concerned about autoinflammatory syndrome and strongly recommend medical genetics evaluation with genetic studies. Referral placed to medical genetics. Photographs of oral ulcers and rashes from her phone appear concerning for an autoinflammatory syndrome (salmon colored rash, aphthous stomatitis) From AOSD perspective: her fevers do not last > 2 weeks and imaging as above (- )pharyngitis, organomegaly, PET avid LAD. Will check labs during flare and check ferritin From FMF perspective: no known pleurisy, erysipelas, ankle monoarthritis - LOW THRESHOLD FOR COLCHICINE TRIAL (will avoid right now as she will start new medication for hereditary angioedema tomorrow) From Behcet's perspective - while she has aphthous stomatitis she does not have any h/o vaginal ulcers, no h/o folliculitis, acneform rashes, pathergy, DVT, inflammatory ocular disease/uveitis/scleritis. Other differentials include Schnitzler Syndrome (fevers, urticarial rashes, arthritis) - will checkSPEP to assess for monoclonal gammopathy Labs with low C4 - other differentials include Kikuchi Syndrome given h/o fevers, transient LAD - if persistent glandular swelling or persistent rash recommend formal imaging/low threshold for formalbiopsy (Kikuchi LN bx usually necrotizing histiocytic lymphadenitis) Labs with low C4- other differential includes hypocomplementemic urticarial vasculitis but no h/o persistent rash or urticaria that resolves with hyperpigmentation - if persistent rash recommend skinbx to evaluate for LCV. Will check anti-C1q antibody. Will check labs during flare including ESR, CRP, Ferritin Exam with livedo reticularis rash of legs will check antiphospholipid ab's. Low threshold for colchicine trial (versus HCQ if labs/serologies and clinical presentation over time is more concerning for UCTD/SLE spectrum disease) but current primary concern is ruling out an autoinflammatory condition. STRONGLY recommend medical genetics evaluation PLAN: -information provided on colchicine -labs during flare -RTC 3 weeks VIRTUAL -referral to medical genetics I spent a total of 120 minutes on the date of the service which included preparing to see the patient, [id number] patient care, completing clinical documentation, obtaining and/or reviewing separately obtained history, performing a medically appropriate examination, counseling and educating the pa tient/family/caregiver, ordering medications, tests, or procedures, communicating results to the patient/family/caregiver and care coordination (not separately reported). Yung Celeste MD Rheumatology Staff [facility] Telephone encounter Note * Telephone Encounter - Steffany Guillen MD - 11/01/2024 11:52 AM EDT Appeal letter written. [facility]04-25-2025 Telephone encounter Note* Telephone Encounter - Tena Jenkins MA - 10/29/2024 9:15 AM EDT [employer] is calling asking status of message below & are we pursuing appeal? [facility]04-18-2025 Telephone encounter Note* Telephone Encounter - Keisha Saab RN - 10/22/2024 2:07 PM EDT Yuliana (dar) [employer] forms started by Dr. Guillen. Forms complete and faxed with insurance cards/ID to [phone] [facility]04-18-2025 Miscellaneous Notes* Telephone Encounter - Keisha Saab RN - 10/22/2024 2:07 PM EDT Yuliana (noéalstanya) [employer] forms started by Dr. Guillen. Forms complete and faxed with insurance cards/ID to [id number] documented in this encounterMartin [facility]04-15-2025 Telephone encounter Note * Telephone Encounter - Tena Jenkins MA - 10/19/2024 4:06 PM EDT Received fax from [employer] stating PA for firazyr was denied. Fax placed in Dr. Guillen's inbox for review. [facility]04-15-2025 Telephone encounter Note* Telephone Encounter - Tena Jenkins MA - 10/19/2024 9:23 AM EDT [employer] patient support form for firazyr completed by Dr. Guillen. Patient needs to complete her part so sent her my chart message with form she needs to complete. Will await determination of PA. [facility]04-14-2025 Telephone encounter Note* Telephone Encounter - Tasha Horn RN - 10/18/2024 2:01 PM EDT Received EPIC message that PA for Firazyr needed completed. Questions answered Awaiting determination [facility]04-14-2025 Telephone encounter Note* Telephone Encounter - Tena Jenkins MA - 10/18/2024 8:00 AM EDT Carmen Yadav, RPh4 days ago [facility] received prescription(s) for icatibant (Firazyr)from Dr. Guillen's office. Unfortunately we do not have access to this medication, it is a limited distribution medication that will be sent to the patient from another Specialty pharmacy. The MD will have to enroll the patient online and then the HUB will dispense the medication from a pharmacy that has access to this medication. To get a patient started on Firazyr, you can: - Download the [employer] Start Form - Complete and fax the form to [phone] ( ) - Enroll the patient online through the [employer] Enrollment portal The link to the start form is: [email or web address] If we can be of any other assistance, please let us know. No further follow up required from [facility]. [facility]04-11-2025 Telephone encounter Note* Telephone Encounter - Carmen Yadav [facility] - 10/15/2024 6:53 PM EDT [facility] received prescription(s) for icatibant (Firazyr)from Dr. Guillen's office. Unfortunately we do not have access to this medication, it is a limited distribution medication that will be sent to the patient from another Specialty pharmacy. The MD will have to enroll the patient online and then the HUB will dispense the medication from a pharmacy that has access to this medication. To get a patient started on Firazyr, you can: - Download the [employer] Start Form - Complete and fax the form to [phone] ( ) - Enroll the patient online through the [employer] Enrollment portal The link to the start form is: [email or web address] If we can be of any other assistance, please let us know. No further follow up required from [facility]. Carmen Yadav, PharmD Clinical Pharmacist, Oncology [facility] P: , F: Pool: P [facility] Pool #: [id number] [facility]04-11-2025 Miscellaneous Notes* Telephone Encounter - Carmen Yadav RPh - 10/15/2024 6:53 PM EDT [facility] received prescription(s) for icatibant (Firazyr)from Dr. Guillen's office. Unfortunately we do not have access to this medication, it is a limited distribution medication that will be sent to the patient from another Specialty pharmacy. The MD will have to enroll the patient online and then the HUB will dispense the medication from a pharmacy that has access to this medication. To get a patient started on Firazyr, you can: - Download the [employer] Start Form - Complete and fax the form to [phone] ( ) - Enroll the patient online through the [employer] Enrollment portal The link to the start form is: [email or web address] If we can be of any other assistance, please let us know. No further follow up required from [facility]. Carmen Yadav, PharmD Clinical Pharmacist, Oncology [facility] P: , F: Pool: P [facility] Pool #: [id number] documented in this encounterMartin Memorial Hospital04-09-2025 NoteHNO ID: [id number] Author: ?, ?, ? Service: ? Author Type: ? Type: Progress Notes Filed: 10/13/2024 14:22 Note Text: Patient scheduled through [facility]04-09-2025 History of Present illness Narrative* Rosalba Goins - 10/13/2024 2:22 PM EDT Patient scheduled through [facility] * Steffany Guillen MD - 10/13/2024 9:31 AM EDT VIRTUAL VISIT PROGRESS NOTE This is a virtual visit using [facility] Zoom Video Visit. It required patient- provider interaction for the medical decision making as documented below. I have communicated my name and active licensure. The patient's identity and physical location wereverified at the time of this visit. Either the patient or their legal scheduling representative has been informed of the risks and benefits of -- and alternatives to -- treatment through a remote evaluation andconsents to proceed with the evaluation remotely. Location: Brian Bertrand is a 24 year old patient here for follow up. Interval history - October 13, 2024 Since last visit Mikayla reports a complex history of recurrent symptoms and multiple hospital admissions over the past several weeks. She notes a pattern of symptoms correlating with her menstrual cycle and recent illnesses. During the week of August 18, she experienced abdominal pain, myalgias, cramping, weakness, fatigue, nausea, low-grade fevers, and ankle and leg edema. Her menstrual cycle began on August 27,followed by a hospital admission from August 27 to the for severe abdominal pain, nausea, emesis, and diarrhea. During this admission, she underwent an endoscopy with pyloric dilation from 16 to 20 cm, which was attributed to her gastroparesis. In early September, she experienced episodes of hypoglycemia, which she attributes to decreased oral intake due to a gastroparesis flare. On September 24, her menstrual cycle began again, accompanied by cephalalgia, abdominal pain, and malaise. She developed croup and a facial rash, for which she was prescribed antibiotics and steroids. On September 28, she noted significant leg and ankle edema, severe abdominal pain, diarrhea, nausea, fatigue, and oral ulcers. The following day, she awoke with pronounced labial edema. On October 03 and , she experienced diarrhea and malaise, with a coworker suspecting a viral infection. In early October, she had a mild POTS flare with palpitations, diaphoresis, clamminess, temperatures ranging from 95.5 F to 99.1 F, back pain, leg cramps, emesis, nausea, and oral ulcers. She reports that the oral ulcers have been particularly severe over the past three days, with swelling causing her lips to contact her teeth and gums. She notes a long-standing history of frequent illnesses since childhood, describing herself as always sick. Patient History, ROS and Physical exam reviewed and electronic chart updated October 13, 2024. The below documentation was copied from my (Steffany Guillen MD MPH) previous notes for review of history from previous visits. I have reviewed and verified all information during the patient visit and made updates where appropriate. The documentation was copied from note dated August 25, 2024: Mikayla Bertrand is a 23 year old patient who presents with chief complaint: swelling She reports recurrent episodes of swelling of lips, ankles, and legs. Began around age 8-10 years and worsened in the last year. Associated sx of recurrent stomach pain, bloating, nausea, vomiting. Occasional diarrhea and constipation. She will have swelling calves and ankles. It is painful and not itchy.No rash on that area. There is occasional rash that she does not notice until taking a shower, tiny bumps along the arms and face. Not itchy. Sometimes involves of fever, oral ulcers. Episodes occur every 2 weeks. Every few months so severe that she is admitted for fluids and pain management. She may also have throat tightness, feels like lump in the throat. She was diagnosed with POTS around age 20 years, presented with tachychardia and sweating with position change. Managed with propanalol. No clear triggers for these episodes. More severe episodes seem right before menses. Menses is very regular every 4 weeks. Answers submitted by the patient for this visit: Allergy Review of Symptoms (Submitted on 08/25/2024) Abdominal pain: Yes Nausea: Yes Vomiting: Yes Diarrhea: Yes Constipation: Yes A rash: Yes Patient Entered Data 08/25/2024 Collateral History Allergic rhinitis No Skin tested Yes Have asthma No Eczema / Dermatitis No Sinus infections No Nasal Polyps No Urticaria / Hives Yes Angioedema Not Sure Food Allergy Yes Stinging insect allergy No Penicillin allergy Yes 08/25/2024 Environmental Exposure Pets No pets Mouse infestation No Cockroach infestation No Mold or Mildew No Air conditioning Yes Dust mite covers No Cigarette / Cigar smoke No Vaping No HISTORY REVIEWED (electronic chart updated): Current Outpatient Medications Medication Sig propranolol ER (INDERAL LA) 60 mg 24 hr capsule Take 1 capsule by mouth once daily. famotidine (PEPCID) 20 mg tablet Take 1 tablet by mouth two times a day. gabapentin (NEURONTIN) 100 mg capsule Take 1 capsule by mouth two times a day for 150 days. maalox-lidocaine (GI COCKTAIL) 2:1 liqd Take 5 mL by mouth every 6 hours as needed (nausea/vomiting). ondansetron orally disintegrating (ZOFRAN ODT) 8 mg disintegrating tablet Take 1 tablet by mouth three times a day before meals. pyridostigmine (MESTINON) 60 mg tablet Take 1 tablet by mouth three times a day. linaCLOtide (LINZESS) 290 mcg capsule Take 1 capsule by mouth daily at 6 am. Take capsule on an empty stomach at least 30 minutes before a meal at the same time each day. Capsule should be swallowed whole. DO NOT chew or crush. potassium chloride SR (MICRO-K) 10 mEq CR capsule Take 10 mEq by mouth. methylphenidate ER (CONCERTA) 18 mg biphasic tablet Take 1 tablet by mouth every morning for 30 days. MULTIVITAMIN ORAL Take 1 tablet by mouth once daily. No current facility-administered medications for this visit. ALLERGIES Allergen Reactions Cefdinir Swelling Hydrocodone-Acetami* Swelling Latex Swelling Penicillins Rash Benadryl [Diphenhyd* Mental Status Change agitation Droperidol Other: See Comments akathesia Compazine [Prochlor* Intolerance Restlessness, agitation Gluten GI Upset Versed [Midazolam H* Mental Status Change Pulling out IV's, extremely confused and restless, getting on hands and knees PAST MEDICAL HISTORY Diagnosis Date Acquired mallet toe of left foot Delayed emergence from anesthesia 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) off AEDs since 2018 GERD (gastroesophageal reflux disease) Mild intermittent asthma without complication MT (mallet toe), right Narcolepsy without cataplexy PMH - PAST MEDICAL HISTORY OF seizure [...] TONSIL AND ADENOI UNDER AGE 14 02/12/2010 SALPINGECTOMY Social History Socioeconomic History Marital status: Highest education level: Associate degree: occupational, technical, or vocational program Tobacco Use Smoking status: Never Passive exposure: Never Smokeless tobacco: Never Vaping Use Vaping status: Never Used Substance and Sexual Activity Alcohol use: No Drug use: No Sexual activity: Never Social History Narrative Pets: dog Social Drivers of Health Financial Resource Strain: Low Risk (10/01/2021) Overall Financial Resource Strain (CARDIA) Difficulty of Paying Living Expenses: Not hard at all Food Insecurity: No Food Insecurity (08/30/2024) Hunger Vital Sign Worried About Running Out of Food in the Last Year: Never true Ran Out of Food in the Last Year: Never true Transportation Needs: No Transportation Needs (08/30/2024) PRAPARE - Transportation Lack of Transportation (Medical): No Lack of Transportation (Non-Medical): No Physical Activity: Sufficiently Active (10/01/2021) Exercise Vital Sign Days of Exercise per Week: 3 days Minutes of Exercise per Session: 60 min Stress: No Stress Concern Present (10/01/2021) [place] of Occupational [employer] - Occupational Stress Questionnaire Feeling of Stress : Only a little Social Connections: Moderately Integrated (10/01/2021) Social Connection and Isolation Panel [NHANES] Frequency of Communication with Friends and Family: More than three times a week Frequency of Social Gatherings with Friends and Family: Three times a week Attends Jainism Services: More than 4 times per year Active Member of Clubs or Organizations: Yes Attends Club or Organization Meetings: More than 4 times per year Marital Status: Never Housing Stability: Low Risk (10/01/2021) Housing Stability Vital Sign Unable to Pay for Housing in the Last Year: No Number of Places Lived in the Last Year: 1 Unstable Housing in the Last Year: No 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 Has FMLA. FAMILY HISTORY Problem Relation Age of Onset Graves Disease Mother Heart Mother SVT Allergies Father - seasonal Asthma Brother Allergies Maternal Grandmother Hypertension Maternal Grandfather Allergies Maternal Grandfather Heart Maternal Grandfather mat side/pat side Breast Cancer Paternal Grandmother No Known Problems Paternal Grandfather Anesthesia Problems No Family History Physical video exam: General: alert and appropriate, in no distress, well-hydrated, well nourished and happy, smiling, interactive Skin: no rash noted Head: normocephalic, no abnormality or lesion noted Eyes: no injection and visual acuity is grossly normal Ears: external ears normal, no mastoid tenderness Nose: external nose normal without rhinorrhea Respiratory: breathing non-labored and no grunting/flaring/retractions Chest: equal chest rise with normal respiratory effort Labs: Latest Ref Rng 07/13/2024 07/15/2024 07/21/2024 KHRIS Negative Positive ! KHRIS Titer 1:160 KRHIS Pattern Nuclear fine speckled CCP Antibody IgG Qualitative Negative Negative CCP Antibody, IgG <20 Units <15 Sm Antibody Negative Negative Anti-Sm <1.0 AI <0.2 DNA Antibody <=200 IU/mL 25 20 DNA Antibody Qualitative Interpretation Negative Negative Negative TOOL LAPPER HAND Antibody QUAL Negative Negative Anti-TOOL LAPPER HAND <1.0 AI 0.4 SSA Antibody Qual Negative Negative Anti-SSA <1.0 AI <0.2 Anti-SSB <1.0 AI 0.4 SSB Antibody Qual Negative Negative CENTROMERE AB QUAL Negative Negative Centromere Ab <1.0 AI <0.2 Scleroderma Ab Qual Negative Negative Scl-70 Abs, EIA <1.0 AI <0.2 BARBIE 1 ANTIBODY QUAL Negative Negative Barbie 1 Antibody <1.0 AI <0.2 Ribosomal TOOL LAPPER HAND Qualitative Negative Negative Ribosomal TOOL LAPPER HAND Ab <1.0 AI <0.2 Chromatin Ab Qual Negative Negative Chromatin Ab <1.0 AI <0.2 Mitochondrial Ab Screen Negative Positive ! 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 Clear pattern of triggers around menses and infectious illness - given frequency of symptoms will start prophylactic regimen, reviewed risks and benefits of options. 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 Steffany Guillen MD MPH RASHA[facility]ILIPPE documented in this encounterMartin [facility] Hospital04-09-2025 NoteProm[facility]03-28-2025 Telephone encounter Note* Telephone Encounter - Mouna Vasques RN - 10/01/2024 9:22 AM EDT Last OV: 03/12/2024 Last Refill: 09/01/2023 F/U OV: N/A Appropriate for refill. Routed to for review. MCM sent to patient. AZUL Rudd, RN, BA [facility] Work Phone: [phone] Miscellaneous Notes* Telephone Encounter - Mouna Vasques RN - 10/01/2024 9:22 AM EDT Last OV: 03/12/2024 Last Refill: 09/01/2023 F/U OV: N/A Appropriate for refill. Routed to for review. MCM sent to patient. AZUL Rudd, RN, BA documented in this encounterMartin Memorial Hospital03-19-2025 NotePromedica [facility]03-18-2025 Instructions* Patient Instructions* Genesis Gavin PA-C - 09/21/2024 11:33 AM EDT For your gastroparesis: - Continue small frequent low fat/low fiber meals as tolerated ([email or web address] ) - Follow-up with Car Inspector Natalia Castanon RD, call [phone] to schedule - Continue Zofran as needed for nausea - Continue Mestinon 60 mg three times daily - Follow up with General Surgeon Dr Barker or Dr Benito to discuss possible pyloric intervention,message sent to gastroparesis scheduling department to assist with scheduling. To schedule please call . For your constipation: - Continue 17g (or one capful) MiraLAX daily. If you have ongoing constipation, consider increasingMiraLAX to twice daily. - Continue Linaclotide (Linzess) 290 mcg capsule once daily. Take on an empty stomach 30 min prior to a meal (do not crush or chew). The most common side effect of Linzess is diarrhea. If you experience significant diarrhea, please let me know and we can adjust the dosing. - If you have worsening constipation please let Dr Tamayo or myself know, and we can send in a alternative medication as discussed during your appointment. To schedule a follow-up visit please call documented in this encounterMartin Memorial Hospital03-18-2025 History of Present illness Narrative* Genesis Gavin PA-C - 09/21/2024 8:30 AM EDT FOLLOW UP VIRTUAL VISIT I have communicated my name and active licensure. The patient's identity and physical location wereverified at the time of this visit. Either the patient or their legal scheduling representative has been informed of the risks and benefits of -- and alternatives to -- treatment through a remote evaluation andconsents to proceed with the evaluation remotely. This visit was conducted as a virtual visit. CHIEF COMPLAINT Patient presents with: Gastroparesis Constipation Ms. Bertrand is here today for follow-up of: Gastroparesis, constipation. HPI I saw this patient in follow up for the gi issues by virtual visit. Patient last seen by GI Dr Tamayo 04/08/2024 for gastroparesis and abdominal pain with plan at that time for repeat EGD. EGD completed 04/09/2024 with biopsies s/f mild chronic inactive gastritis, negative for Crohn's dx. H. Pylori testing negative. She was recently admitted for gastroparesis flare and underwent EGD with dilation 09/01/2024. With recent follow-up with GI Dr Martines on 09/15/2024. Per note, she continues on Mestinonand linzess, with addition of miralax once daily. With recommendation for nutrition and hepatology eval and to follow up in GP clinic. Ongoing difficulty eating solids. Tolerating liquids. Did notice some improvement with dilation with ongoing improvement. States prior to dilation unable to tolerate water, now tolerating all liquids. Reports ongoing difficulty eating solids, with worsening nausea, fulness, abdominal discomfort 2-3hours after eating. Ongoing weight loss. Most recent weight 115. Not following with nutrition. Continues on Mestinon 60 mg TID. Bowels becoming more normal. Post hospital went without BM for 6 days. Noticed significant worsening of abdominal discomfort, fullness, early satiety and nausea with constipation. States now taking Linzess 290 mcg and miralax once daily with BM every day to every other day. Endorses intermittent complete BM. Denies dyssynergic defecation. Not interested at this time in making changes in bowel regimen due to recent improvement with addition of Miralax. Current Outpatient Medications Medication Sig Dispense Refill famotidine (PEPCID) 20 mg tablet Take 1 tablet by mouth two times a day. 60 tablet 5 gabapentin (NEURONTIN) 100 mg capsule Take 1 capsule by mouth two times a day for 150 days. 60 capsule 4 maalox-lidocaine (GI COCKTAIL) 2:1 liqd Take 5 mL by mouth every 6 hours as needed (nausea/vomiting). 100 mL 0 ondansetron orally disintegrating (ZOFRAN ODT) 8 mg disintegrating tablet Take 1 tablet by mouth three times a day before meals. 30 tablet 0 pyridostigmine (MESTINON) 60 mg tablet Take 1 tablet by mouth three times a day. 90 tablet 5 linaCLOtide (LINZESS) 290 mcg capsule Take 1 capsule by mouth daily at 6 am. Take capsule on an empty stomach at least 30 minutes before a meal at the same time each day. Capsule should be swallowed whole. DO NOT chew or crush. 30 capsule 5 potassium chloride SR (MICRO-K) 10 mEq CR capsule Take 10 mEq by mouth. propranolol ER (INDERAL LA) 60 mg 24 hr capsule Take 1 capsule by mouth once daily. 90 capsule 3 methylphenidate ER (CONCERTA) 18 mg biphasic tablet Take 1 tablet by mouth every morning for 30 days. 30 tablet 0 MULTIVITAMIN ORAL Take 1 tablet by mouth once daily. No current facility-administered medications for this visit. ALLERGIES Allergen Reactions Cefdinir Swelling Hydrocodone-Acetami* Swelling Latex Swelling Penicillins Rash Benadryl [Diphenhyd* Mental Status Change agitation Droperidol Other: See Comments akathesia Compazine [Prochlor* Intolerance Restlessness, agitation Gluten GI Upset Versed [Midazolam H* Mental Status Change Pulling out IV's, extremely confused and restless, getting on hands and knees Social History Tobacco Use Smoking status: Never Passive exposure: Never Smokeless tobacco: Never Vaping Use Vaping status: Never Used Substance Use Topics Alcohol use: No Drug use: No Medical History: No changes since last visit. REVIEW OF SYSTEMS: GENERAL: +5 lb weight loss, no fevers. CARDIOVASCULAR: No chest pain, no edema RESPIRATORY: No dyspnea GI: see above : NA LINING CUTTER: NA The remainder of the review of systems are negative. Reviewed with patient during visit today. PHYSICAL EXAMINATION: LMP 08/25/2024 GENERAL APPEARANCE: Well developed and well nourished. SKIN: Skin color, texture, turgor normal. No rashes or lesions. EYES: Conjunctiva normal without icterus. OROPHARYNX: lips, mucosa, and tongue normal, teeth and gums normal NECK: no JVD LUNGS: Normal respirations on RA HEART:pt describes normal heart rythm NEURO: Alert and oriented in no acute distress. ABDOMEN: nondistended EXTREMITIES:Extremities normal, No deformities, No skin discoloration, No edema . Assessment Mikayla Bertrand is a 24 year old with PMHx POTS, recent H.pylori s/p treatment, autoimmune gastritis with positive antiparietal antibodies, elevated gastrin level (negative dotatate scan), chronic constipation on mestinon and Linzess, recurrent fevers and oral ulcers with joint swelling undergoing derm, rheum and allergy/immunology workup of possible hereditary angioedema, and delayed gastric emptying with finding of >50% retention at 4 hours on GES (01/2024) s/p EGD with dilation (09/01/2024), who presents today for follow-up of gastroparesis and constipation. Encounter Diagnosis ICD-10-CM 1. Generalized abdominal pain R10.84 gabapentin (NEURONTIN) 100 mg capsule 2. Gastroparesis K31.84 CONSULT TO GENERAL SURGERY 3. Chronic idiopathic constipation K59.04 #Gastroparesis #Nausea GES in 01/2024 with >50% retention at 4 hours EGG s/f normal pattern of 3 cycle per minute waves until 15 minutes into the study when mixed dysrhythmia took over. The GMAT Score was negative. Water load satiety tolerance borderline at 300 Autoimmune lab work with no significant diagnostic abnormality Surgical Evaluation: >s/p EGD dilation (09/01/2024) Normal esophagus. Normal stomach. Normal pylorus. Dilated to 20 mm. Normal examined duodenum. No specimens collected. Medication Hx: Previously tried EES with some improvement, does not want to take Reglan 2/2 prior family member rxn. On Gabapentin 100 mg BID for RUQ pain. On Mestinon 60 mg TID Symptoms: nausea, early satiety, stomach fullness, solid food intolerance. Tolerating all liquids. #Constipation #Bloating BM every day to every other day on Linzess 290 mcg daily and Miralax once daily, with intermittent incomplete evacuation Prior Testing: - KUB 08/2024 no dilated bowel, no significant stool burden - Colonoscopy (07/19/2024) The examined portion of the ileum was normal. Tortuous colon. The examination was otherwise normal on direct and retroflexion views. Biopsies were taken with a cold forceps from the right colon and left colon for evaluation of microscopic colitis. No evidence of lymphocytic or collagenous colitis. Medication Hx: on Linzess 290 mcg daily and Miralax once daily Plan: - Continue Mestinon 60 mg TID - Continue Linzess 290 mcg daily and Miralax 1 capful daily for constipation given improvement. If worsening will consider addition of Motegrity 2 mg daily - Continue small frequent low fat/low fiber meals as tolerated (GP handout link provided in after visit summary) - Nutrition evaluation with Natalia Castanon RD - Given improvement in symptoms post EGD with dilation recommend follow-up with general surgeon forconsideration of further pyloric intervention Genesis Gavin PA-C 09/21/2024 documented in this encounterMartin Memorial Hospital03-18-2025 NotePromed[facility]03-16-2025 Evaluation note* Diagnosis Onset Date Resolution Status Admit Date Gastroparesis acute September 19, 2024 9:40am URI (upper respiratory infection) acute September 19, 2024 9:40am [facility] Work Phone: 1(783) 476-125603-12-2025 History of Present illness Narrative* Bernie Martines MD - 09/15/2024 10:20 AM EDT DEPARTMENT OF GASTROENTEROLOGY - FOLLOW UP VISIT HISTORY OF PRESENT ILLNESS Mikayla Bertrand is a 24 year old female who presents today for follow up of nausea/vomiting in the setting of gastroparesis and constipation. Last seen 05/26/24. At that time, she was doing well on Mestinon and Linzess (managed by Dr. Tamayo)and constipation was under control along with gastroparesis Sx. We discussed obtaining a colonoscopy to rule out Crohn's disease given stomach bx and mouth sores. Work up revealed +AMA (normal LFTs) a nd possible hereditary angioedema which she is being work up for with Allergy and Immunology. She was admitted recently for a gastroparesis flare up and underwent EGD with pyloric dilation and improvement in Sx. She tells me her gastroparesis flare ups go [id number] with constipation flare ups. Today is the first day since her admission with a normal BM and that is on Mestinon, Linzess and adding Miralax once a day. She denies any symptoms suggestive of dyssynergic defecation. Never hadARM done. She is under the impression she had a Smartpill study done in April 2024, but per chartreview, it appears this was a VCE. H pylori confirmed eradicated. Gastrin level rechecked and trended down to almost normal (212). DOTATATE scan previously negative. Mestinon and Linzess , had to add Miralax - because of no BM fopr 6 days- now her BMs are back to regular as of today. If no improv emnt, increase Miralax to twice a day TEST RESULTS SINCE LAST VISIT Imaging/Procedures: Colonoscopy 07/19/24: - The examined portion of the ileum was normal. - Tortuous colon. - The examination was otherwise normal on direct and retroflexion views. - Biopsies were taken with a cold forceps from the right colon and left colon for evaluation of microscopic colitis. EGD 09/01/24: - Normal esophagus. - Normal stomach. - Normal pylorus. Dilated to 20 mm. - Normal examined duodenum. - No specimens collected. US RUQ 08/27/24: IMPRESSION: Small amount of sludge in normal caliber gallbladder. No cholelithiasis or sonographic evidence of acute cholecystitis. Xray abdomen 08/30/24: IMPRESSION: No dilated bowel. Hemoglobin (g/dL) Date Value 09/01/2024 11.6 07/26/2021 14.1 Hematocrit (%) Date Value 09/01/2024 34.7 07/26/2021 43.2 WBC (k/uL) Date Value 09/01/2024 4.32 07/26/2021 5.77 Glucose (mg/dL) Date Value 09/02/2024 108 07/26/2021 99 Potassium (mmol/L) Date Value 09/02/2024 3.7 07/26/2021 3.6 Sodium (mmol/L) Date Value 09/02/2024 140 07/26/2021 140 Chloride (mmol/L) Date Value 09/02/2024 105 07/26/2021 101 CO2 (mmol/L) Date Value 09/02/2024 25 07/26/2021 27 Creatinine (mg/dL) Date Value 09/02/2024 0.91 07/26/2021 0.68 BUN (mg/dL) Date Value 09/02/2024 10 07/26/2021 8 Anion Gap (mmol/L) Date Value 09/02/2024 10 07/26/2021 12 Calcium (mg/dL) Date Value 07/26/2021 9.2 Calcium, Total (mg/dL) Date Value 09/02/2024 9.0 Protein, Total (g/dL) Date Value 08/27/2024 7.5 04/10/2020 6.8 Albumin (g/dL) Date Value 09/02/2024 4.1 07/26/2021 4.9 Bilirubin, Total (mg/dL) Date Value 08/27/2024 0.3 04/10/2020 0.2 Alkaline Phosphatase (U/L) Date Value 08/27/2024 43 04/10/2020 56 AST (U/L) Date Value 08/27/2024 21 04/10/2020 20 ALT (U/L) Date Value 08/27/2024 11 04/10/2020 12 Latest Ref Rng 07/31/2024 Gastrin <115.0 pg/mL 212.0 (H) Current Outpatient Medications Medication Sig Dispense Refill maalox-lidocaine (GI COCKTAIL) 2:1 liqd Take 5 mL by mouth every 6 hours as needed (nausea/vomiting). 100 mL 0 ondansetron orally disintegrating (ZOFRAN ODT) 8 mg disintegrating tablet Take 1 tablet by mouth three times a day before meals. 30 tablet 0 pyridostigmine (MESTINON) 60 mg tablet Take 1 tablet by mouth three times a day. 90 tablet 5 famotidine (PEPCID) 20 mg tablet Take 1 tablet by mouth two times a day. 60 tablet 5 linaCLOtide (LINZESS) 290 mcg capsule Take 1 capsule by mouth daily at 6 am. Take capsule on an empty stomach at least 30 minutes before a meal at the same time each day. Capsule should be swallowed whole. DO NOT chew or crush. 30 capsule 5 gabapentin (NEURONTIN) 100 mg capsule Take 100mg twice a day and 300mg at bedtime. 150 capsule 5 potassium chloride SR (MICRO-K) 10 mEq CR capsule Take 10 mEq by mouth. propranolol ER (INDERAL LA) 60 mg 24 hr capsule Take 1 capsule by mouth once daily. 90 capsule 3 methylphenidate ER (CONCERTA) 18 mg biphasic tablet Take 1 tablet by mouth every morning for 30 days. 30 tablet 0 MULTIVITAMIN ORAL Take 1 tablet by mouth once daily. No current facility-administered medications for this visit. ALLERGIES Allergen Reactions Cefdinir Swelling Hydrocodone-Acetami* Swelling Latex Swelling Penicillins Rash Benadryl [Diphenhyd* Mental Status Change agitation Droperidol Other: See Comments akathesia Compazine [Prochlor* Intolerance Restlessness, agitation Gluten GI Upset Versed [Midazolam H* Mental Status Change Pulling out IV's, extremely confused and restless, getting on hands and knees REVIEW OF SYSTEMS Per above PHYSICAL EXAMINATION LMP 08/25/2024 General Appearance: alert, oriented x 3, pleasant and in no acute distress Eyes: Negative for significant chage in vision, and significant vision problems Abdomen: not distended, normal bowel sounds, soft and depressible, no guarding or rebound, no palpable mass, no organomegaly, non tender Rectal exam: deferred Extremities: no cyanosis or edema Skin: no jaundice, no spider angiomas, no palmar erythema Neuro: alert, oriented x 3, pleasant and in no acute distress Assessment IMPRESSION Mikayla Bertrand is a 24 year old female who presents today for follow up of gastroparesis and constipation. I saw her initially following a hospital admission for N/V and an opinion on possible AIG given + serologies. Gastric biopsies with active gastritis but no features of AIG. H pylori stool test was checked and came back positive. She underwent quadruple therapy with successful eradication. We obtained a GES which showed severe gastroparesis for which she now follows with Dr. Tamayo. Previously tried on Erythromycin with some improvement, Gabapentin 100mg TID for RUQ pain. She does not want to take Reglan for gastroparesis given a family member's reaction to it. Also with constipation (thought to be slow transit, though no formal testing done, denies Sx consistent with DD and never had ARM done). Has been on Linzess and Mestinon (per Dr. Tamayo) with good success until recently when herSx flared up. She had to add Miralax and today is first day with good BM. History also notable for elevated fasting gastrin levels off PPIs, DOTATATE scan neg and repeat gastrin down to 212. Lastly, she does have a hx of aphtous oral ulcers. Given gastric bx with active gastritis (turned out to be 2/2H pylori that was not picked with stains), we performed an EGD and colon both of which were negative for Crohn's. VCE with no small bowel lesions. Saw rheumatology recently and work up revealed + AMA (normal LFT) and low C4 for which she is seeing Allergy to rule out hereditary angioedema. PLAN (K31.84) Gastroparesis Follows with Dr. Tamayo. Recently admitted for a flare up and at that time underwent EGD with pylorus dilation and improvement in Sx. Continue following with Dr. Tamayo's team. Nutrition referral (K59.01) Slow transit constipation Presumed slow transit constipation, never had Smartpill or Sitzmarkers study done. No Sx suggestive of dyssynergic defecation. Will discuss with Dr. Tamayo if Smartpill is still beingoffered through his office. Continue Linzess 290 and Mestinon. Has been taking Miralax daily with first normal BM today. Advised increasing dose to BID if no continued improvement. Will discuss adding Motegrity with Dr. Tamayo (G04.24) Positive serological test result Positive AMA serologies with normal LFTs. Will send to hepatology for an opinion Positive AIG serologies with gastric biopsies not suggestive of AIG. She is likely at risk of developing AIG. Will monitor for now. Plan is to follow up in six months. I spent a total of 30 minutes on the date of the service which included preparing to see the patient, [id number] patient care, completing clinical documentation, obtaining and/or reviewing separately obtained history, performing a medically appropriate examination, counseling and educating the pat ient/family/caregiver, ordering medications, tests, or procedures, and communicating with other HCPs (not separately reported). Bernie Martines MD September 15, 2024 documented in this encounterMartin Memorial Hospital03-12-2025 NotePromed[facility]02-26-2025 NotePromedica [facility]02-26-2025 Telephone encounter Note* Telephone Encounter - Janey Domingo - 09/01/2024 11:05 AM EST Lvm to schedule appt with DR Tamayo [facility]02-26-2025 Miscellaneous Notes* Telephone Encounter - Janey Domingo - 09/01/2024 11:05 AM EST Lvm to schedule appt with DR Tamayo * Telephone Encounter - Minnie Adam - 08/31/2024 9:33 AM EST Patient is in house at [facility]. They are wanting her to see Tamayo within in a couple days. I did call the patient and told her that his first for est may be Apr or May. She asked if Dr. Tamayo would speak to her foreign exchange student coordinator to see if he has any ideas for what they can dofor her. I told her since they are [facility] and she is established they can message him for what he suggests. She will need an est appointment made. documented in this encounterMartin Memorial Hospital02-25-2025 NotePromedica [facility]02-25-2025 Telephone encounter Note* Telephone Encounter - Minnie Adam - 08/31/2024 9:33 AM EST Patient is in house at [facility]. They are wanting her to see Tamayo within in a couple days. I did call the patient and told her that his first for est may be Apr or May. She asked if Dr. Tamayo would speak to her foreign exchange student coordinator to see if he has any ideas for what they can dofor her. I told her since they are [facility] and she is established they can message him for what he suggests. She will need an est appointment made. [facility] Work Phone: [phone] NotePromedica [facility]02-24-2025 NoteProm[facility]02-23-2025 NoteProm[facility] 08-28-2024 NotePromedica Fost[facility]02-21-2025 [id number] (AGENT OF COVID-19) RNA: Not detected INFLUENZA A RNA: Not detected INFLUENZA B RNA: Not detected RESPIRATORY SYNCYTIAL VIRUS (RSV) RNA: Not detectedPromedica Fostoria Community HospitalComment on above:Performed By: #### [id number] ####[facility] LABCLIA [id number] [place] [id number] [id number] Telephone encounter Note* Telephone Encounter - Delano Pfeiffer LPN - 08/27/2024 9:22 AM EST Name of medication: Mestinon .keegancid Name of ordering provider: Dr. Tamayo HANNA: 03/01/2024 LDH: 04/08/2024 NOV: Visit date not found NDH: visit date not found Spoke with patient - confirmed patient is requesting refill. Yes Has patient been seen within the year? Yes Pharmacy updated: Yes Medication pended - please file if appropriate. [facility]02-21-2025 Miscellaneous Notes* Telephone Encounter - Delano Pfeiffer LPN - 08/27/2024 9:22 AM EST Name of medication: Mestinon .pepchristine Name of ordering provider: Dr. Tamayo HANNA: 03/01/2024 [facility]: 04/08/2024 NOV: Visit date not found NDH: visit date not found Spoke with patient - confirmed patient is requesting refill. Yes Has patient been seen within the year? Yes Pharmacy updated: Yes Medication pended - please file if appropriate. documented in this encounterMartin Memorial Hospital02-20-2025 Evaluation note* Diagnosis Onset Date Resolution Status Admit Date Segmental and somatic dysfunction of cervical region acute F ebru2024 5:25pm Segmental and somatic dysfunction of lumbar region acute Aug 5:25pm Segmental and somatic dysfunction of pelvic region acute Aug 5:25pm Segmental and somatic dysfunction of thoracic region acute F ebru2024 5:25pm Scoliosis of lumbar spine chronic August 26, 2024 5:25pm Gastroparesis acute September 19, 2024 9:40am URI (upper respiratory infection) acute September 19, 2024 9:40am [facility] Work Phone: 1(377) 496-947502-20-2025 NoteHNO ID: [id number] Author: ?, ?, ? Service: ? Author Type: ? Type: Progress Notes Filed: 08/26/2024 09:30 Note Text: Patient scheduled herself through [facility]02-19-2025 NoteHNO ID: [id number] Author: ?, ?, ? Service: ? Author Type: ? Type: Progress Notes Filed: 08/25/2024 14:04 Note Text: LVM for patient to return call for 6 week follow up , Dr Guillen first available not until 7 week. Week of 10/11/2024[facility]02-19-2025 History of Present illness Narrative* Rosalba Goins - 08/25/2024 10:37 AM EST LVM for patient to return call for 6 week follow up , Dr Guillen first available not until 7 week. Week of 10/11/2024 * Steffany Guillen MD - 08/25/2024 9:02 AM EST Distance Health Visit This is a virtual visit using [employer] Zoom Video Visit. It required patient- provider interaction for the medical decision making as documented below. I have communicated my name and active licensure. The patient's identity and physical location wereverified at the time of this visit. Either the patient or their legal scheduling representative has been informed of the risks and benefits of -- and alternatives to -- treatment through a remote evaluation andconsents to proceed with the evaluation remotely. This is a request for consultation by Alan Cortés [id number] [facility] [place] [place] [address] Consult requested for an opinion regarding the evaluation and treatment of the above. My final impression and recommendations will be communicated back to the requesting physician by way of the shared medical record or letter via US mail.. Mikayla Bertrand is a 23 year old patient who presents with chief complaint: swelling She reports recurrent episodes of swelling of lips, ankles, and legs. Began around age 8-10 years and worsened in the last year. Associated sx of recurrent stomach pain, bloating, nausea, vomiting. Occasional diarrhea and constipation. She will have swelling calves and ankles. It is painful and not itchy.No rash on that area. There is occasional rash that she does not notice until taking a shower, tiny bumps along the arms and face. Not itchy. Sometimes involves of fever, oral ulcers. Episodes occur every 2 weeks. Every few months so severe that she is admitted for fluids and pain management. She may also have throat tightness, feels like lump in the throat. She was diagnosed with POTS around age 20 years, presented with tachychardia and sweating with position change. Managed with propanalol. No clear triggers for these episodes. More severe episodes seem right before menses. Menses is very regular every 4 weeks. Answers submitted by the patient for this visit: Allergy Review of Symptoms (Submitted on 08/25/2024) Abdominal pain: Yes Nausea: Yes Vomiting: Yes Diarrhea: Yes Constipation: Yes A rash: Yes Patient Entered Data 08/25/2024 Collateral History Allergic rhinitis No Skin tested Yes Have asthma No Eczema / Dermatitis No Sinus infections No Nasal Polyps No Urticaria / Hives Yes Angioedema Not Sure Food Allergy Yes Stinging insect allergy No Penicillin allergy Yes 08/25/2024 Environmental Exposure Pets No pets Mouse infestation No Cockroach infestation No Mold or Mildew No Air conditioning Yes Dust mite covers No Cigarette / Cigar smoke No Vaping No HISTORY REVIEWED (electronic chart updated): Current Outpatient Medications Medication Sig linaCLOtide (LINZESS) 290 mcg capsule Take 1 capsule by mouth daily at 6 am. Take capsule on an empty stomach at least 30 minutes before a meal at the same time each day. Capsule should be swallowed whole. DO NOT chew or crush. famotidine (PEPCID) 20 mg tablet Take 1 tablet by mouth two times a day. gabapentin (NEURONTIN) 100 mg capsule Take 100mg twice a day and 300mg at bedtime. pyridostigmine (MESTINON) 60 mg tablet Take 1 tablet by mouth three times a day. tenapanor (IBSRELA) 50 mg tablet Take 1 tablet (50 mg) by mouth two times a day. linaCLOtide (LINZESS) 290 mcg capsule Take 1 capsule by mouth daily at 6 am. potassium chloride SR (MICRO-K) 10 mEq CR capsule Take 10 mEq by mouth. propranolol ER (INDERAL LA) 60 mg 24 hr capsule Take 1 capsule by mouth once daily. methylphenidate ER (CONCERTA) 18 mg biphasic tablet Take 1 tablet by mouth every morning for 30 days. MULTIVITAMIN ORAL Take 1 tablet by mouth once daily. No current facility-administered medications for this visit. ALLERGIES Allergen Reactions Cefdinir Swelling Hydrocodone-Acetami* Swelling Latex Swelling Penicillins Rash Benadryl [Diphenhyd* Mental Status Change agitation Droperidol Other: See Comments akathesia Compazine [Prochlor* Intolerance Restlessness, agitation Gluten GI Upset Versed [Midazolam H* Mental Status Change Pulling out IV's, extremely confused and restless, getting on hands and knees PAST MEDICAL HISTORY Diagnosis Date Acquired mallet toe of left foot Delayed emergence from anesthesia 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) off AEDs since 2018 GERD (gastroesophageal reflux disease) Mild intermittent asthma without complication MT (mallet toe), right Narcolepsy without cataplexy PMH - PAST MEDICAL HISTORY OF seizure [...] TONSIL AND ADENOI UNDER AGE 14 02/12/2010 SALPINGECTOMY Social History Socioeconomic History Marital status: Highest education level: Associate degree: occupational, technical, or vocational program Tobacco Use Smoking status: Never Passive exposure: Never Smokeless tobacco: Never Vaping Use Vaping status: Never Used Substance and Sexual Activity Alcohol use: No Drug use: No Sexual activity: Never Social History Narrative Pets: dog Social Drivers of Health Financial Resource Strain: Low Risk (10/01/2021) Overall Financial Resource Strain (CARDIA) Difficulty of Paying Living Expenses: Not hard at all Food Insecurity: No Food Insecurity (10/01/2021) Hunger Vital Sign Worried About Running Out of Food in the Last Year: Never true Ran Out of Food in the Last Year: Never true Transportation Needs: No Transportation Needs (10/01/2021) PRAPARE - Transportation Lack of Transportation (Medical): No Lack of Transportation (Non-Medical): No Physical Activity: Sufficiently Active (10/01/2021) Exercise Vital Sign Days of Exercise per Week: 3 days Minutes of Exercise per Session: 60 min Stress: No Stress Concern Present (10/01/2021) [place] [employer] - Occupational Stress Questionnaire Feeling of Stress : Only a little Social Connections: Moderately Integrated (10/01/2021) Social Connection and Isolation Panel [NHANES] Frequency of Communication with Friends and Family: More than three times a week Frequency of Social Gatherings with Friends and Family: Three times a week Attends Jainism Services: More than 4 times per year Active Member of Clubs or Organizations: Yes Attends Club or Organization Meetings: More than 4 times per year Marital Status: Never Housing Stability: Low Risk (10/01/2021) Housing Stability Vital Sign Unable to Pay for Housing in the Last Year: No Number of Places Lived in the Last Year: 1 Unstable Housing in the Last Year: No 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 FAMILY HISTORY Problem Relation Age of Onset Graves Disease Mother Heart Mother SVT Allergies Father - seasonal Asthma Brother Allergies Maternal Grandmother Hypertension Maternal Grandfather Allergies Maternal Grandfather Heart Maternal Grandfather mat side/pat side Breast Cancer Paternal Grandmother No Known Problems Paternal Grandfather Anesthesia Problems No Family History Physical video exam: General: alert and appropriate, in no distress, well-hydrated, well nourished and happy, smiling, interactive Skin: no rash noted Head: normocephalic, no abnormality or lesion noted Eyes: no injection and visual acuity is grossly normal Ears: external ears normal, no mastoid tenderness Nose: external nose normal without rhinorrhea Respiratory: breathing non-labored and no grunting/flaring/retractions Chest: equal chest rise with normal respiratory effort Labs: Latest Ref Rng 07/13/2024 07/15/2024 07/21/2024 KHRIS Negative Positive ! KHRIS Titer 1:160 KHRIS Pattern Nuclear fine speckled CCP Antibody IgG Qualitative Negative Negative CCP Antibody, IgG <20 Units <15 Sm Antibody Negative Negative Anti-Sm <1.0 AI <0.2 DNA Antibody <=200 IU/mL 25 20 DNA Antibody Qualitative Interpretation Negative Negative Negative TOOL LAPPER HAND Antibody QUAL Negative Negative Anti-TOOL LAPPER HAND <1.0 AI 0.4 SSA Antibody Qual Negative Negative Anti-SSA <1.0 AI <0.2 Anti-SSB <1.0 AI 0.4 SSB Antibody Qual Negative Negative CENTROMERE AB QUAL Negative Negative Centromere Ab <1.0 AI <0.2 Scleroderma Ab Qual Negative Negative Scl-70 Abs, EIA <1.0 AI <0.2 BARBIE 1 ANTIBODY QUAL Negative Negative Barbie 1 Antibody <1.0 AI <0.2 Ribosomal TOOL LAPPER HAND Qualitative Negative Negative Ribosomal TOOL LAPPER HAND Ab <1.0 AI <0.2 Chromatin Ab Qual Negative Negative Chromatin Ab <1.0 AI <0.2 Mitochondrial Ab Screen Negative Positive ! Mitochondrial M2 IgG Quantitative <=20.0 Units 29.1 (H) CRP <0.9 mg/dL <0.3 Rheumatoid Factor <16 IU/mL <10 WSR 0 - 20 mm/hr 2 C3 86 - 166 mg/dL 115 C4 13 - 46 mg/dL 12 (L) THYROID PEROXIDASE ANTIBODY <5.6 IU/mL 17.3 (H) CK 42 - 196 U/L 65 C1 Esterase Inhibitor Function >=41 % 105 Assessment and Plan: 1) Recurrent swelling of lips and legs, non-pruritic rash - some features suspicious for bradykininmediated angioedema (lip swelling, abd pain/swelling) - borderline C4, normal c1 esterase function - screening labs for evaluation HAE syndrome - advised written journal of episodes, and tracking menses and other symptoms to help delineate anypatterns to assist in diagnosis 2) Autoimmune gastritis - nutrition screening labs due to ongoing neuropathy Discussed medication dosage, usage, side effects, and goals of treatment in detail. Steffany Guillen MD MPH FAAAAI FACAAI August 25, 2024 [facility] NoteProm[facility] NoteHNO ID: [id number] Author: ALAN CORTÉS MD Service: ? Author Type: Physician Type: Progress Notes Filed: 08/20/2024 10:02 Note Text: Subjective VIRTUAL VISIT PROGRESS NOTE This is a virtual visit using [employer] Zoom Video Visit. It required patient-provider interaction for the medical decision making as documented below. I have communicated my name and active licensure. The patient's identity and physical location were verified at the time of this visit. Either the patient or their legal scheduling representative has been informed of the risks and benefits of -- and alternatives to -- treatment through a remote evaluation and consents to proceed with the evaluation remotely. HPI: New patient follow-up 23-year-old pleasant lady with low titer positive KHRIS is here for follow-up. She also had a history of borderline TOOL LAPPER HAND of 1 in April 2023 but on repeat testing negative. KHRIS recently on blood work July 2024 was low titer 1: 160 and associated with positive mitochondrial antibody 29.1 and positive thyroperoxidase antibody 173. C4 was slightly low at 12. She describes recent flare last week lasting 3 to 4 days where she had severe achiness in her legs, abdominal pain, cramping, nausea and some low-grade fevers of 99.4. She took Tylenol, ibuprofen and hydrated well with some improvement. She had 1 perioral ulcer at the time. Today she has some achiness 2/10 all over. She has no joint swelling. She has no rashes. She has no trouble breathing or chest pain. She gives episodes of lip swelling in the past. She has a history of POTS and sees neurologist and is on beta-alvino. She has had hospitalizations for her flares in the past. Colonoscopy recently July 2024 was normal. She continues to see phone specialist. She is on a gluten-free diet because of gluten sensitivity. New patient visit July 13, 2024 Mikayla Blunt is a 23 year old female who presents with positive KHRIS low titer of 1: 80 in January 2024, history of borderline TOOL LAPPER HAND of 1 in April 2023 is here for evaluation. She has history of POTS and sees a neurologist regularly and is on a beta-alvino. She has had episodes of significant abdominal pain, intermittent diarrhea and constipation associated with fevers, oral ulcerations, weight loss and joint pain over the years at least since she has been 19. She gets significant flares every 2 months but reports flares almost every 2 weeks that last week at a time. She has been hospitalized for these episodes before in October 2022, November 2023 and recently February 2024 and during his hospitalization she is usually given IV fluids and some medications for pain control. She has had multiple EGDs which shows chronic gastritis and she has positive antiparietal antibodies. She is also been diagnosed with gastroparesis. She has not had any colonoscopy. 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 She has history of epilepsy as a child and has been on medications but no longer on medications epilepsy and no active symptoms. She describes some joint pain 3/10 in her ankles, shoulders, wrists, knees. She has no swelling. She denies any specific morning stiffness. She has been on a gluten-free diet for the last few years that she has noted some increased pain on a gluten diet. Serologies for celiac in the past have been negative but on gluten-free diet. PAST MEDICAL HISTORY Diagnosis Date Acquired mallet toe of left foot Delayed emergence from anesthesia 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) off AEDs since 2017 GERD (gastroesophageal reflux disease) Mild intermittent asthma without complication MT (mallet toe), right Narcolepsy without cataplexy PMH - PAST MEDICAL HISTORY OF seizure [...] TONSIL AND ADENOI UNDER AGE 12 02/12/2010 SALPINGECTOMY Health Maintenance Procedures HPV Vaccine(1 - 3-dose series) Never done Asthma Control Test due on 12/06/2017 Meningococcal B Vaccine(1 of 2 - Standard) Never done GC (Gonorrhea) Screening (18-24) Never done Depression Screening Never done Anxiety Screening Never done HIV Screening Never done Chlamydia Screening (18-24) Never done Cervical Cancer Screening Never done Asthma Action Plan due on 11/21/2023 Annual PCP Team Chronic Disease Visit due on 11/29/2023 Covid-19 Vaccine( season) due on 03/07/2024 Discussed health maintenance, i (more content not included)...[facility]02-14-[facility]25 History of Present illness Narrative* Alan Cortés MD - 08/20/2024 9:34 AM EST Subjective VIRTUAL VISIT PROGRESS NOTE This is a virtual visit using [employer] Zoom Video Visit. It required patient- provider interaction for the medical decision making as documented below. I have communicated my name and active licensure. The patient's identity and physical location wereverified at the time of this visit. Either the patient or their legal scheduling representative has been informed of the risks and benefits of -- and alternatives to -- treatment through a remote evaluation andconsents to proceed with the evaluation remotely. HPI: New patient follow-up 23-year-old pleasant lady with low titer positive KHRIS is here for follow-up. She also had a historyof borderline TOOL LAPPER HAND of 1 in April 2023 but on repeat testing negative. KHRIS recently on blood work July 2024 was low titer 1: 160 and associated with positive mitochondrial antibody 29.1 and positive thyroperoxidase antibody 173. C4 was slightly low at 12. She describes recent flare last week lasting 3 to 4 days where she had severe achiness in her legs, abdominal pain, cramping, nausea and some low-grade fevers of 99.4. She took Tylenol, ibuprofen and hydrated well with some improvement. Shehad 1 perioral ulcer at the time. Today she has some achiness 2/10 all over. She has no joint swelling. She has no rashes. She has no trouble breathing or chest pain. She gives episodes of lip swelling in the past. She has a history of POTS and sees neurologist and is on beta-alvino. She has had hospitalizations for her flares in the past. Colonoscopy recently July 2024 was normal. She continues to see phone specialist. She is on a gluten-free diet because of gluten sensitivity. New patient visit July 13, 2024 Mikayla Blunt is a 23 year old female who presents with positive KHRIS low titer of 1: 80 in January 2024, history of borderline TOOL LAPPER HAND of 1 in April 2023 is here for evaluation. She has history of POTS and sees a neurologist regularly and is on a beta-alvino. She has had episodes of significant abdominal pain, intermittent diarrhea and constipation associated with fevers, oral ulcerations, weight loss and joint pain over the years at least since she has been 19. She gets significant flares every 2months but reports flares almost every 2 weeks that last week at a time. She has been hospitalized for these episodes before in October 2022, November 2023 and recently February 2024 and during his hospitalization she is usually given IV fluids and some medications for pain control. She has had multiple EGDs which shows chronic gastritis and she has positive antiparietal antibodies. She is also been diagnosed with gastroparesis. She has not had any colonoscopy. 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 She has history of epilepsy as a child and has been on medications but no longer on medications epilepsy and no active symptoms. She describes some joint pain 3/10 in her ankles, shoulders, wrists, knees. She has no swelling. She denies any specific morning stiffness. She has been on a glut en-free diet for the last few years that she has noted some increased pain on a gluten diet. Serologies for celiac in the past have been negative but on gluten- free diet. PAST MEDICAL HISTORY Diagnosis Date Acquired mallet toe of left foot Delayed emergence from anesthesia 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) off AEDs since 2017 GERD (gastroesophageal reflux disease) Mild intermittent asthma without complication MT (mallet toe), right Narcolepsy without cataplexy PMH - PAST MEDICAL HISTORY OF seizure [...] TONSIL AND ADENOI UNDER AGE 12 02/12/2010 SALPINGECTOMY Health Maintenance Procedures HPV Vaccine(1 - 3-dose series) Never done Asthma Control Test due on 12/06/2017 Meningococcal B Vaccine(1 of 2 - Standard) Never done GC (Gonorrhea) Screening (18-24) Never done Depression Screening Never done Anxiety Screening Never done HIV Screening Never done Chlamydia Screening (18-24) Never done Cervical Cancer Screening Never done Asthma Action Plan due on 11/21/2023 Annual PCP Team Chronic Disease Visit due on 11/29/2023 Covid-19 Vaccine(2023- season) due on 03/07/2024 Discussed health maintenance, including regular aerobic exercise, low fat diet, and periodic exams. Health Maintenance Immunizations Given Immunizations: Immunization History Administered Date(s) Administered COVID-19 original vaccine, age 12+ yr, monovalent ([employer] - PURPLE TOP) 09/30/2020 10/21/2020 Haemophilus influenzae b (HbOC) vaccine, 4-dose series (HIBTITER) 2002 01/11/2003 03/10/2003 09/07/2003 diphtheria tetanus pertussis (DTaP) vaccine, pediatric (INFANRIX) 2002 01/11/2003 03/10/2003 12/09/2003 09/23/2007 hepatitis B (HepB) vaccine, 3-dose series, age 0 yr - 19 yr (ENGERIX B-PEDS, RECOMBIVAX HB-PEDS) 2002 2002 06/14/2003 influenza (IIV3) vaccine, age 6 mo - 64 yr, trivalent (AFLURIA, FLULAVAL, FLUVIRIN, FLUZONE) 05/04/2014 influenza (IIV4) vaccine, age 6 mo - 64 yr, quadrivalent (AFLURIA, FLULAVAL, FLUZONE) 04/30/2016 05/27/2019 05/19/2020 05/12/2021 03/25/2022 influenza vaccine, unspecified formulation 05/02/2003 06/01/2003 05/08/2006 05/06/2007 05/11/2008 04/08/2009 05/12/2010 04/06/2011 05/16/2012 measles mumps rubella (MMR) vaccine (M-M-R II, PRIORIX) 09/07/2003 09/23/2007 meningococcal (MenACWY-D) vaccine, quadrivalent (MENACTRA) 05/28/2016 01/19/2020 pneumococcal (PCV7) vaccine, 7 valent (PREVNAR 7) 2002 01/11/2003 03/10/2003 04/12/2004 poliovirus (IPV) vaccine, inactivated (IPOL) 2002 01/11/2003 03/10/2003 09/23/2007 tetanus diphtheria pertussis (Tdap) vaccine, age 7+ yr (ADACEL, BOOSTRIX) 01/20/2015 tuberculin skin test (TST-PPD), purified protein derivative, intradermal 10/01/2021 10/08/2021 varicella (SHERYL) vaccine (VARIVAX) 12/09/2003 08/19/2020 Current Outpatient Medications Medication Sig linaCLOtide (LINZESS) 290 mcg capsule Take 1 capsule by mouth daily at 6 am. Take capsule on an empty stomach at least 30 minutes before a meal at the same time each day. Capsule should be swallowed whole. DO NOT chew or crush. famotidine (PEPCID) 20 mg tablet Take 1 tablet by mouth two times a day. gabapentin (NEURONTIN) 100 mg capsule Take 100mg twice a day and 300mg at bedtime. pyridostigmine (MESTINON) 60 mg tablet Take 1 tablet by mouth three times a day. tenapanor (IBSRELA) 50 mg tablet Take 1 tablet (50 mg) by mouth two times a day. linaCLOtide (LINZESS) 290 mcg capsule Take 1 capsule by mouth daily at 6 am. potassium chloride SR (MICRO-K) 10 mEq CR capsule Take 10 mEq by mouth. propranolol ER (INDERAL LA) 60 mg 24 hr capsule Take 1 capsule by mouth once daily. methylphenidate ER (CONCERTA) 18 mg biphasic tablet Take 1 tablet by mouth every morning for 30 days. MULTIVITAMIN ORAL Take 1 tablet by mouth once daily. No current facility-administered medications for this visit. ALLERGIES Allergen Reactions Cefdinir Swelling Hydrocodone-Acetami* Swelling Latex Swelling Penicillins Rash Benadryl [Diphenhyd* Mental Status Change agitation Droperidol Other: See Comments akathesia Compazine [Prochlor* Intolerance Restlessness, agitation Gluten GI Upset Versed [Midazolam H* Mental Status Change Pulling out IV's, extremely confused and restless, getting on hands and knees FAMILY HISTORY Problem Relation Age of Onset Graves Disease Mother Heart Mother SVT Allergies Father Asthma Brother Allergies Maternal Grandmother Hypertension Maternal Grandfather Allergies Maternal Grandfather Heart Maternal Grandfather mat side/pat side Breast Cancer Paternal Grandmother No Known Problems Paternal Grandfather Anesthesia Problems No Family History Social History Tobacco Use Smoking status: Never Passive exposure: Never Smokeless tobacco: Never Vaping Use Vaping status: Never Used Substance Use Topics Alcohol use: No Drug use: No History Review: I have reviewed and modified as needed, the following during this visit: Allergies,Past Medical History, Past Surgical History, Past Family History, Past Social History. Review of Systems CONSTITUTIONAL: Recent Weight Gain: No Recent Weight Loss: Yes Fatigue: Yes Weakness: Yes Fever: Yes EYES: Pain: No Redness: No Loss of vision: No Double or blurred vision: No Dryness: No Feels like something in eye: No Itching eyes: No [id number]-THROAT: Ringing in ears: No Loss of hearing: No Nosebleeds: No Loss of smell: No Dryness in nose: No Runny Nose: No Sore tongue: No Bleeding gums: No Sores in mouth: Yes Loss of taste: No Dryness of mouth: No Frequent sore throats: No Hoarseness: No Difficulty in swallowing: No CARDIOVASCULAR: Pain in chest: No Irregular heart beat: No Sudden changes in heart beat: Yes High blood pressure: No Heart murmurs: No RESPIRATORY: Shortness of breath: No Difficulty in breathing at night: No Swollen legs or feet: No Cough: No Cough of blood: No Wheezing (asthma): No GASTROINTESTINAL: Nausea: Yes Vomiting of blood or coffee ground material: No Stomach pain relieved by food or milk: No Jaundice: No Increasing constipation: Yes Persistent diarrhea: Yes Blood in stools: No Black stools: No Heartburn: Yes GENITOURINARY: Difficult urination: No Pain or burning on urination: No Blood in urine: No Cloudy, smoky urine: No Pus in urine: No Discharge from penis/vagina: No Getting up at night to pass urine: No Vaginal dryness: No Rash/ulcers: No Sexual difficulties: No Prostate trouble: No MUSCULOSKELETAL: Joint Pain: Yes, Muscle Weakness: Yes, and Muscle Tenderness: Yes INTEGUMENTARY: Easy Bruising: Yes Redness: No Rash: Yes Hives: No Sun sensitive: No Tightness: No Nodules/bumps: No Hair loss: No Color changes of hands or feet in the cold: No NEUROLOGICAL SYSTEM: Headaches: No Dizziness: No Fainting: No Muscle spasm: Yes Loss of consciousness: No Sensitivity or pain of hands and/or feet: Yes Memory loss: No Night sweats: No PSYCHIATRIC: Excessive worries: No Anxiety: No Easily losing temper: No Depression: No Agitation: No Difficulty falling asleep: No Difficulty staying asleep: No ENDOCRINE: Excessive thirst: No HEMATOLOGIC/LYMPHATIC: Swollen glands: No Tender glands: No Anemia: No Bleeding tendency: No Transfusion/ when: No ALLERGIC/IMMUNOLOGIC; Frequent sneezing: No Increased susceptibility to infection: No LMP 06/29/2024 (Approximate) VIDEO EXAM: (performed via video enabled technology) GENERAL: Well appearing, alert, comfortable, in no acute distress,well nourished. Eyes: vision grossly intact Hearing -grossly intact HEENT: external ears normal. External nose normal, NECK: thyroid appears symmetric Neuro- Speech intact. No facial droop Musculoskeletal- Able to make a tight fist with both hands Orientation - Oriented to time, place, person & situation. Appropriate mood and affect. Good insight. Good judgment. New patient visit July 2024 Physical Exam GENERAL: Well appearing, alert, comfortable, in no acute distress, well- hydrated, well nourished. HEENT: Negative for external ears normal. Canals are clear. Both TMs visualized and are normal. EyeExam normal. External nose normal, no nasal ulcer or throat ulcer. NECK: NECK Supple, no adenopathy; thyroid symmetric, normal size, no bruits CARDIAC: regular rate and rhythm, No murmur asculated., and Equal peripheral pulses RESPIRATORY: Lungs clear to auscultation. No wheezing, rhonchi, rales VASCULAR: RRR without murmur, gallop, or rubs. No ectopy. ABDOMEN: Soft, non tender. BS active. No masses or organomegaly. LYMPHATIC: Negative for adenopathy in the neck, axillae, groin, supraclavicular and auricular. NEURO: Motor and sensory exam normal MOTOR: Normal; including tone, gait, stressed gait, power and coordination. SKIN: Negative for alopecia, skin rash, malar rash, skin lesion, skin ulcer, pits, thickening, color changes, telangiectasias, nail changes, nail ridging, nail pitting, onycholysis MUSCULOSKELETAL: No fullness or tenderness involving any joint No hypermobility of the joints noted Lab Results: July 2024 Serologies-see below CRP less than 0.3 ESR 2 glucose 94 06/29/2024 ALT 12 06/29/2024 WBC 7.69 06/29/2024 Hemoglobin 13.3 06/29/2024 Platelet Count 188 06/29/2024 WSR 2 03/01/2024 CRP <0.3 03/01/2024 Serology: July 2024-KHRIS 1: 160, TOOL LAPPER HAND negative, rest the lupus panel negative, C4 low 12, C3 115, mitochondrial antibody +29.1, thyroid peroxidase antibody +17.3, C4 esterase inhibitor negative, hepatitis panel negative January 2024-KHRIS 1: 80, SSA and SSB negative, rheumatoid factor negative September 2023 gastric parietal IgG elevated 128.08 April [id number] at 05 February 2024 MARY antibody negative Radiology: June 2024-ultrasound liver-unremarkable Assessment (R77.8) 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 Abnormal serologies-low titer KHRIS, recently 1: 160, borderline TOOL LAPPER HAND of 1 in the past but recentlynegative, positive thyroid peroxidase antibody and positive mitochondrial antibody but no evidence for Palmira's disease or primary biliary cholangitis. Thyroid function normal and liver enzymes normal. No clear evidence for systemic autoimmune process 2. History of POTS syndrome-has had positivetilt table testing in the past and sees neurologist regularly. On beta-alvino 3. Abdominal pain, intermittent diarrhea and constipation-has been diagnosed with autoimmune gastritis and gastroparesis-has positive antiparietal antibodies. Sees phone specialist regularly. Has had EGD, recent colonoscopy normal July 2024 4. Recurrent fevers, oral ulcerations, joint pains-describes flares every 2 weeks-symptoms last fora week at a time. Also associated with GI symptoms and weight loss. Has been hospitalized in the past for IV hydration-secondary to POTS versus other? Recent flare-etiology unclear 5. Gluten-free diet-celiac serologies on gluten-free diet negative #6 family history of Graves'-patient also has positive thyroperoxidase antibody but thyroid function normal #7 perioral dermatitis-has seen ccnp #8 low C4-C1 esterase inhibitor negative. Rule out angioedema with various symptoms. C3 normal Plan Has history of POTS but not seeing hypermobility EDS on exam Positive mitochondrial antibody and thyroperoxidase antibody but thyroid function normal and liver enzymes normal-continue to monitor closely for primary biliary cholangitis and Palmira thyroiditis Continue follow-up with phone specialist-recent colonoscopy normal Referred to [facility] to rule out angioedema-has low C4, history of lip swelling, intermittent episodes of abdominal pain-C1 esterase inhibitor levels negative Symptoms may be associated with POTS, has had hospitalizations for GI symptoms which could be from autonomic dysfunction and GI dysmotility. Continue hydration, continue follow-up with neurologist and continue beta-blockers With episodes of fevers, oral ulcerations, abdominal pain recommended NGS panel for inflammatory disorders through [employer] but unable to get it approved-will consider getting this test [id number] if workup through reference data expert and phone specialist negative Continue to monitor thyroid function regularly and continue to monitor liver enzymes closely Follow-up in 9 months This note was partially generated using [employer] voice recognition system, and there may be some incorrect words, spellings, and punctuation that were not noted in checking the note before saving. [facility] on 08/20/24 CONSULT TO ALLERGY/IMMUNOLOGY Return in about 9 months (around 05/20/2025). I spent a total of 40 minutes on the date of the service which included [id number] patient care, completing clinical documentation, performing a medically appropriate examination, ordering medications, tests, or procedures, and communicating with other HCPs (not separately reported). Alan Cortés MD documented in this encounterMartin [facility] Evaluation note* Diagnosis Onset Date Resolution Status Admit Date Encounter for routine gynecological examination noneactive Februa 2024 3:53pm Segmental and somatic dysfunction of cervical region acute August 26 025 5:25pm Segmental and somatic dysfunction of lumbar region acute Aug 5:25pm Segmental and somatic dysfunction of pelvic region acute Aug 5:25pm Segmental and somatic dysfunction of thoracic region acute August 26 025 5:25pm Scoliosis of lumbar spine chronic August 26, 2024 5:25pm Gastroparesis acute September 19, 2024 9:40am URI (upper respiratory infection) acute September 19, 2024 9:40am [facility] Work Phone: 1(648) 585-666602-07-2025 NotePap Smear Specimen AdequacyFebruary 2024 5:33pmComment.Satisfactory for evaluation. Endocervical and/or squamous metaplasticcells (endocervical component)are present.[facility]ACED A#[id number] Methodist HospitalComment on above:Satisfactory for evaluation. Endocervical and/or squamous metaplasticcells (endocervical component)are present.08-02-2024 Telephone encounter Note* Telephone Encounter - Kimberly Vogt - 08/02/2024 1:25 PM EST Outside H pylori stool results scanned in [facility] Kimberly Vogt [facility]01-27-2025 Miscellaneous Notes* Telephone Encounter - Kimberly Vogt - 08/02/2024 1:25 PM EST Outside H pylori stool results scanned in [facility] Kimberly Vogt documented in this encounterMartin [facility] Hospital01-14-2025 Telephone encounter Note * Telephone Encounter - Jennie Sloan LPN - 07/20/2024 1:46 PM EST Placed call to Lab client services at [phone] and spoke with Bonifacio. He is going to forward the message to a rep and will get back to me with an answer. Jennie Sloan LPN [facility]01-14-2025 Telephone encounter Note* Telephone Encounter - Jennie Sloan LPN - 07/20/2024 1:46 PM EST ----- Message from Alan Cortés MD sent at 07/20/2024 12:35 PM EST ----- Can we check with the lab-is a somebody I can talk to about this? Report says lab values 105 but itsupposed to be a percentage so I was not sure how to interpret it, I would think maximum would be 100%? Can someone help me with this [facility]01-14-2025 Miscellaneous Notes* Telephone Encounter - Jennie Sloan LPN - 07/20/2024 1:46 PM EST Placed call to Lab client services at [phone] and spoke with Bonifacio. He is going to forward the message to a rep and will get back to me with an answer. Jennie Sloan LPN * Telephone Encounter - Jennie Sloan LPN - 07/20/2024 1:46 PM EST ----- Message from Alan Cortés MD sent at 07/20/2024 12:35 PM EST ----- Can we check with the lab-is a somebody I can talk to about this? Report says lab values 105 but itsupposed to be a percentage so I was not sure how to interpret it, I would think maximum would be 100%? Can someone help me with this documented in this encounterMartin [facility] Hospital01-13-2025 Note* Discharge Instr - Nursing - Dipti Mendez RN - 07/19/2024 12:50 PM EST Uneventful recovery . Discharge paperwork reviewed with patient and family with hard copy provided to patient for personal records. Patient verbalized understanding and declined any questions or concerns prior to discharge. Vital signs stable. Patient expressed readiness to discharge. Personal belongings returned. PIV removed without complication. [facility]. No acute distress noted. [facility]01[facility] Miscellaneous Notes* Discharge Instr - Nursing - Dipti Mendez RN - 07/19/2024 12:50 PM EST Uneventful recovery . Discharge paperwork reviewed with patient and family with hard copy provided to patient for personal records. Patient verbalized understanding and declined any questions or concerns prior to discharge. Vital signs stable. Patient expressed readiness to discharge. Personal belongings returned. PIV removed without complication. Patient taken to [facility], by endoscopy staff, via wheelchair. No acute distress noted. documented in this encounterMartin [facility] Hospital01-13-2025 History and physical note * Leny Steen PA - 07/19/2024 12:00 PM EST UPDATED HISTORY AND PHYSICAL EXAMINATION SERVICE DATE: 07/19/2024 SERVICE TIME: 11:29 AM SERVICE: Isidro Espana MD PHYSICAL EXAM MUST BE COMPLETED ON ADMISSION The History and Physical (completed in the past 30 days) has been reviewed and the patient has beenexamined. The contents accurately reflect the patient's condition with the following additions or revisions since the H&P was completed. Patient denies any changes to health since last examination. Planned procedure for today is COLONOSCOPY DIAGNOSTIC [facility]. Past medical history, past surgical history, social history and family history reviewed and updatedin [facility]. ALLERGIES Allergen Reactions Cefdinir Swelling Hydrocodone-Acetami* Swelling Latex Swelling Penicillins Rash Benadryl [Diphenhyd* Mental Status Change agitation Droperidol Other: See Comments akathesia Compazine [Prochlor* Intolerance Restlessness, agitation Gluten GI Upset Versed [Midazolam H* Mental Status Change Pulling out IV's, extremely confused and restless, getting on hands and knees LMP 06/29/2024 (Approximate) Examination indicates no changes. On examination today: Lungs: Clear to auscultation bilaterally. Heart: RRR, Normal S1/S2, No murmurs, rubs, gallops or thrills appreciated. Abdomen: BS+ in all quadrants, abdomen is soft, non tender, and without guarding. Assessment: Aphthous ulcer of mouth, r/o Crohns Plan: Planned procedure for today is COLONOSCOPY DIAGNOSTIC This H&P can be found in the Electronic Medical Record dated 07/13/24 by Alan Cortés MD . SIGNATURE: JARED Banda PATIENT NAME: Mikayla Bertrand DATE: July 19, 2024 TIME: 11:29 AM [facility] Work Phone: 1([phone]) 504-242401-13-2025 History and physical note* Leny Steen PA - 07/19/2024 12:00 PM EST UPDATED HISTORY AND PHYSICAL EXAMINATION SERVICE DATE: 07/19/2024 SERVICE TIME: 11:29 AM SERVICE: Isidro Espana MD PHYSICAL EXAM MUST BE COMPLETED ON ADMISSION The History and Physical (completed in the past 30 days) has been reviewed and the patient has beenexamined. The contents accurately reflect the patient's condition with the following additions or revisions since the H&P was completed. Patient denies any changes to health since last examination. Planned procedure for today is COLONOSCOPY DIAGNOSTIC Medication reconciliation list [facility]. Past medical history, past surgical history, social history and family history reviewed and [facility]in [facility]. ALLERGIES Allergen Reactions Cefdinir Swelling Hydrocodone-Acetami* Swelling Latex Swelling Penicillins Rash Benadryl [Diphenhyd* Mental Status Change agitation Droperidol Other: See Comments akathesia Compazine [Prochlor* Intolerance Restlessness, agitation Gluten GI Upset Versed [Midazolam H* Mental Status Change Pulling out IV's, extremely confused and restless, getting on hands and knees LMP 06/29/2024 (Approximate) Examination indicates no changes. On examination today: Lungs: Clear to auscultation bilaterally. Heart: RRR, Normal S1/S2, No murmurs, rubs, gallops or thrills appreciated. Abdomen: BS+ in all quadrants, abdomen is soft, non tender, and without guarding. Assessment: Aphthous ulcer of mouth, r/o Crohns Plan: Planned procedure for today is COLONOSCOPY DIAGNOSTIC This H&P can be found in the Electronic Medical Record dated 07/13/24 by Alan Cortés MD . SIGNATURE: JARED Banda PATIENT NAME: Mikayla Bretrand DATE: July 19, 2024 TIME: 11:29 AM documented in this encounterMartin [facility] Hospital01-09-2025 Telephone encounter Note * Telephone Encounter - Jennie Sloan LPN - 07/15/2024 10:14 AM EST Patient notified per Dr. Cortés and voices understanding. Patient is asking to see if her lab ordershave been approved through insurance? Are you able to check on this? Thank you Jennie Sloan LPN [facility]01-09-[facility] Miscellaneous Notes* Telephone Encounter - Jennie Sloan LPN - 07/15/2024 10:14 AM EST Patient notified per Dr. Cortés and voices understanding. Patient is asking to see if her lab ordershave been approved through insurance? Are you able to check on this? Thank you Jennie Sloan LPN * Telephone Encounter - Jennie Sloan LPN - 07/15/2024 10:07 AM EST ----- Message from Alan Cortés MD sent at 07/14/2024 12:28 PM EST ----- Notify patient-she had asked about autoimmune thyroid disease and she does have thyroid peroxidase antibody which can increase risk for autoimmune thyroid disease. With her various symptoms she couldconsider seeing an jewel hole gauger to see if it has something that needs to be addressed. She also has a low C4 which can be seen with acute infections, sometimes hereditary angioedema, sometimes autoimmune diseases. [place] tree angioedema can present with episodes of abdominal pain from swellingin the GI tract. Will just wait for the rest of the blood to come back. Trying to add 1 more blood work because of the low C4 to look for hereditary angioedema can try to see if we can get that also drawn. If any concerns for it we will need to see an senior painter documented in this encounterMartin [facility] Hospital01-09-2025 Telephone encounter Note * Telephone Encounter - Jennie Sloan LPN - 07/15/2024 10:07 AM EST ----- Message from Alan Cortés MD sent at 07/14/2024 12:28 PM EST ----- Notify patient-she had asked about autoimmune thyroid disease and she does have thyroid peroxidase antibody which can increase risk for autoimmune thyroid disease. With her various symptoms she couldconsider seeing an jewel hole gauger to see if it has something that needs to be addressed. She also has a low C4 which can be seen with acute infections, sometimes hereditary angioedema, sometimes autoimmune diseases. Heritage tree angioedema can present with episodes of abdominal pain from swellingin the GI tract. Will just wait for the rest of the blood to come back. Trying to add 1 more blood work because of the low C4 to look for hereditary angioedema can try to see if we can get that also drawn. If any concerns for it we will need to see an senior painter [facility]01-[facility]25 NoteHNO ID: [id number] Author: ALAN CORTÉS MD Service: ? Author Type: Physician Type: Progress Notes Filed: 07/13/2024 12:24 Note Text: Subjective Consultation requested by Dr. Carly Callejas MD for an opinion regarding positive KHRIS. My final recommendations will be communicated back to the requesting physician by way of shared Medical record or letter to requesting physician via [place] mail. HPI: Mikayla Blunt is a 23 year old female who presents with positive KHRIS low titer of 1: 80 in January 2024, history of borderline TOOL LAPPER HAND of 1 in April 2023 is here for evaluation. She has history of POTS and sees a neurologist regularly and is on a beta-alvino. She has had episodes of significant abdominal pain, intermittent diarrhea and constipation associated with fevers, oral ulcerations, weight loss and joint pain over the years at least since she has been 19. She gets significant flares every 2 months but reports flares almost every 2 weeks that last week at a time. She has been hospitalized for these episodes before in October 2022, November 2023 and recently February 2024 and during his hospitalization she is usually given IV fluids and some medications for pain control. She has had multiple EGDs which shows chronic gastritis and she has positive antiparietal antibodies. She is also been diagnosed with gastroparesis. She has not had any colonoscopy. 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 She has history of epilepsy as a child and has been on medications but no longer on medications epilepsy and no active symptoms. She describes some joint pain 3/10 in her ankles, shoulders, wrists, knees. She has no swelling. She denies any specific morning stiffness. She has been on a gluten-free diet for the last few years that she has noted some increased pain on a gluten diet. Serologies for celiac in the past have been negative but on gluten-free diet. PAST MEDICAL HISTORY Diagnosis Date Acquired mallet toe of left foot Delayed emergence from anesthesia 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) off AEDs since 2018 GERD (gastroesophageal reflux disease) Mild intermittent asthma without complication MT (mallet toe), right Narcolepsy without cataplexy PMH - PAST MEDICAL HISTORY OF seizure [...] TONSIL AND ADENOI UNDER AGE 14 02/12/2010 SALPINGECTOMY Health Maintenance Procedures HPV Vaccine(1 - 3-dose series) Never done Asthma Control Test due on 12/06/2017 Meningococcal B Vaccine: Consider Based On Risk(1 of 2 - Patient Seeks Protection) Never done GC (Gonorrhea) Screening (18-24) Never done Depression Screening Never done Anxiety Screening Never done Hepatitis C Screening Never done HIV Screening Never done Chlamydia Screening (18-24) Never done Cervical Cancer Screening Never done Asthma Action Plan due on 11/21/2023 Annual PCP Team Chronic Disease Visit due on 11/29/2023 Covid-19 Vaccine( season) due on 03/07/2024 Discussed health maintenance, including regular aerobic exercise, low fat diet, and periodic exams. Health Maintenance Immunizations Given Immunizations: Immunization History Administered Date(s) Administered COVID-19 original vaccine, age 12+ yr, monovalent (Keen Impressions - PURPLE TOP) 09/30/2020 10/21/2020 Haemophilus influenzae b (HbOC) vaccine, 4-dose series (HIBTITER) 2002 01/11/2003 03/10/2003 09/07/2003 diphtheria tetanus pertussis (DTaP) vaccine, pediatric (INFANRIX) 2002 01/11/2003 03/10/2003 12/09/2003 09/23/2007 hepatitis B (HepB) vaccine, 3-dose series, age 0 yr - 19 yr (ENGERIX B-PEDS, RECOMBIVAX HB-PEDS) 2002 2002 06/14/2003 influenza (IIV3) vaccine, age 6 mo - 64 yr, trivalent (AFLURIA, FLULAVAL, FLUVIRIN, FLUZONE) 05/04/2014 influenza (IIV4) vaccine, age 6 mo - 64 yr, quadrivalent (AFLURIA, FLULAVAL, FLUZONE) 04/30/2016 05/27/2019 05/19/2020 05/12/2021 03/25/2022 influenza vaccine, unspecified formulation 05/02/2003 06/01/2003 05/08/2006 05/06/2007 05/11/2008 04/08/2009 05/12/2010 04/06/2011 05/16/2012 measles mumps rubella (MMR) vaccine (M-M-R II, PRIORIX) 09/07/2003 09/23/2007 meningococcal (MenACWY-D) vaccine, quadrivalent (MENACTRA) 05/28/2016 01/19/2020 pneumococcal (PCV7) vaccine, 7 valent (PREVNAR 7) 2002 01/11/2003 03/10/2003 04/12/2004 poliovirus (IPV) vaccine, inactivated (IPOL) (more content not included)...[facility]01-07-2025 History of Present illness Narrative* Alan Cortés MD - 07/13/2024 8:57 AM EST Subjective Consultation requested by Dr. Carly Callejas MD for an opinion regarding positive KHRIS. My final recommendations will be communicated back to the requesting physician by way of shared Medical record or letter to requesting physician via [place] mail. HPI: Mikayla Blunt is a 23 year old female who presents with positive KHRIS low titer of 1: 80 in January 2024, history of borderline TOOL LAPPER HAND of 1 in April 2023 is here for evaluation. She has history of POTS and sees a neurologist regularly and is on a beta-alvino. She has had episodes of significant abdominal pain, intermittent diarrhea and constipation associated with fevers, oral ulcerations, weight loss and joint pain over the years at least since she has been 19. She gets significant flares every 2 months but reports flares almost every 2 weeks that last week at a time. She has been hospitalized for these episodes before in October 2022, November 2023 and recently February 2024 and during his hospitalization she is usually given IV fluids and some medications for pain control. She has had multiple EGDs which shows chronic gastritis and she has positive antiparietal antibodies. She is also been diagnosed with gastroparesis. She has not had any colonoscopy. 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 She has history of epilepsy as a child and has been on medications but no longer on medications epilepsy and no active symptoms. She describes some joint pain 3/10 in her ankles, shoulders, wrists, knees. She has no swelling. She denies any specific morning stiffness. She has been on a gluten-free diet for the last few years that she has noted some increased pain on a gluten diet. Serologies for celiac in the past have been negative but on gluten-free diet. PAST MEDICAL HISTORY Diagnosis Date Acquired mallet toe of left foot Delayed emergence from anesthesia 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) off AEDs since 2017 GERD (gastroesophageal reflux disease) Mild intermittent asthma without complication MT (mallet toe), right Narcolepsy without cataplexy PMH - PAST MEDICAL HISTORY OF seizure [...] TONSIL AND ADENOI UNDER AGE 12 02/12/2010 SALPINGECTOMY Health Maintenance Procedures HPV Vaccine(1 - 3-dose series) Never done Asthma Control Test due on 12/06/2017 Meningococcal B Vaccine: Consider Based On Risk(1 of 2 - Patient Seeks Protection) Never done GC (Gonorrhea) Screening (18-24) Never done Depression Screening Never done Anxiety Screening Never done Hepatitis C Screening Never done HIV Screening Never done Chlamydia Screening (18-24) Never done Cervical Cancer Screening Never done Asthma Action Plan due on 11/21/2023 Annual PCP Team Chronic Disease Visit due on 11/29/2023 Covid-19 Vaccine( season) due on 03/07/2024 Discussed health maintenance, including regular aerobic exercise, low fat diet, and periodic exams. Health Maintenance Immunizations Given Immunizations: Immunization History Administered Date(s) Administered COVID-19 original vaccine, age 12+ yr, monovalent (Keen Impressions - PURPLE TOP) 09/30/2020 10/21/2020 Haemophilus influenzae b (HbOC) vaccine, 4-dose series (HIBTITER) 2002 01/11/2003 03/10/2003 09/07/2003 diphtheria tetanus pertussis (DTaP) vaccine, pediatric (INFANRIX) 2002 01/11/2003 03/10/2003 12/09/2003 09/23/2007 hepatitis B (HepB) vaccine, 3-dose series, age 0 yr - 19 yr (ENGERIX B-PEDS, RECOMBIVAX HB-PEDS) 2002 2002 06/14/2003 influenza (IIV3) vaccine, age 6 mo - 64 yr, trivalent (AFLURIA, FLULAVAL, FLUVIRIN, FLUZONE) 05/04/2014 influenza (IIV4) vaccine, age 6 mo - 64 yr, quadrivalent (AFLURIA, FLULAVAL, FLUZONE) 04/30/2016 05/27/2019 05/19/2020 05/12/2021 03/25/2022 influenza vaccine, unspecified formulation 05/02/2003 06/01/2003 05/08/2006 05/06/2007 05/11/2008 04/08/2009 05/12/2010 04/06/2011 05/16/2012 measles mumps rubella (MMR) vaccine (M-M-R II, PRIORIX) 09/07/2003 09/23/2007 meningococcal (MenACWY-D) vaccine, quadrivalent (MENACTRA) 05/28/2016 01/19/2020 pneumococcal (PCV7) vaccine, 7 valent (PREVNAR 7) 2002 01/11/2003 03/10/2003 04/12/2004 poliovirus (IPV) vaccine, inactivated (IPOL) 2002 01/11/2003 03/10/2003 09/23/2007 tetanus diphtheria pertussis (Tdap) vaccine, age 7+ yr (ADACEL, BOOSTRIX) 01/20/2015 tuberculin skin test (TST-PPD), purified protein derivative, intradermal 10/01/2021 10/08/2021 varicella (SHERYL) vaccine (VARIVAX) 12/09/2003 08/19/2020 Current Outpatient Medications Medication Sig linaCLOtide (LINZESS) 290 mcg capsule Take 1 capsule by mouth daily at 6 am. Take capsule on an empty stomach at least 30 minutes before a meal at the same time each day. Capsule should be swallowed whole. DO NOT chew or crush. famotidine (PEPCID) 20 mg tablet Take 1 tablet by mouth two times a day. gabapentin (NEURONTIN) 100 mg capsule Take 100mg twice a day and 300mg at bedtime. pyridostigmine (MESTINON) 60 mg tablet Take 1 tablet by mouth three times a day. potassium chloride SR (MICRO-K) 10 mEq CR capsule Take 10 mEq by mouth. propranolol ER (INDERAL LA) 60 mg 24 hr capsule Take 1 capsule by mouth once daily. methylphenidate ER (CONCERTA) 18 mg biphasic tablet Take 1 tablet by mouth every morning for 30 days. MULTIVITAMIN ORAL Take 1 tablet by mouth once daily. tenapanor (IBSRELA) 50 mg tablet Take 1 tablet (50 mg) by mouth two times a day. linaCLOtide (LINZESS) 290 mcg capsule Take 1 capsule by mouth daily at 6 am. (Patient not taking: Reported on 07/13/2024) No current facility-administered medications for this visit. ALLERGIES Allergen Reactions Cefdinir Swelling Hydrocodone-Acetami* Swelling Latex Swelling Penicillins Rash Benadryl [Diphenhyd* Mental Status Change agitation Droperidol Other: See Comments akathesia Compazine [Prochlor* Intolerance Restlessness, agitation Gluten GI Upset Versed [Midazolam H* Mental Status Change Pulling out IV's, extremely confused and restless, getting on hands and knees FAMILY HISTORY Problem Relation Age of Onset Graves Disease Mother Heart Mother SVT Allergies Father Asthma Brother Allergies Maternal Grandmother Hypertension Maternal Grandfather Allergies Maternal Grandfather Heart Maternal Grandfather mat side/pat side Breast Cancer Paternal Grandmother No Known Problems Paternal Grandfather Anesthesia Problems No Family History Social History Tobacco Use Smoking status: Never Passive exposure: Never Smokeless tobacco: Never Vaping Use Vaping status: Never Used Substance Use Topics Alcohol use: No Drug use: No History Review: I have reviewed and modified as needed, the following during this visit: Allergies,Past Medical History, Past Surgical History, Past Family History, Past Social History. Review of Systems CONSTITUTIONAL: Recent Weight Gain: No Recent Weight Loss: Yes Fatigue: Yes Weakness: Yes Fever: Yes EYES: Pain: No Redness: No Loss of vision: No Double or blurred vision: No Dryness: No Feels like something in eye: No Itching eyes: No [id number]: Ringing in ears: No Loss of hearing: No Nosebleeds: No Loss of smell: No Dryness in nose: No Runny Nose: No Sore tongue: No Bleeding gums: No Sores in mouth: Yes Loss of taste: No Dryness of mouth: No Frequent sore throats: No Hoarseness: No Difficulty in swallowing: No CARDIOVASCULAR: Pain in chest: No Irregular heart beat: No Sudden changes in heart beat: Yes High blood pressure: No Heart murmurs: No RESPIRATORY: Shortness of breath: No Difficulty in breathing at night: No Swollen legs or feet: No Cough: No Cough of blood: No Wheezing (asthma): No GASTROINTESTINAL: Nausea: Yes Vomiting of blood or coffee ground material: No Stomach pain relieved by food or milk: No Jaundice: No Increasing constipation: Yes Persistent diarrhea: Yes Blood in stools: No Black stools: No Heartburn: Yes GENITOURINARY: Difficult urination: No Pain or burning on urination: No Blood in urine: No Cloudy, smoky urine: No Pus in urine: No Discharge from penis/vagina: No Getting up at night to pass urine: No Vaginal dryness: No Rash/ulcers: No Sexual difficulties: No Prostate trouble: No MUSCULOSKELETAL: Joint Pain: Yes, Muscle Weakness: Yes, and Muscle Tenderness: Yes INTEGUMENTARY: Easy Bruising: Yes Redness: No Rash: Yes Hives: No Sun sensitive: No Tightness: No Nodules/bumps: No Hair loss: No Color changes of hands or feet in the cold: No NEUROLOGICAL SYSTEM: Headaches: No Dizziness: No Fainting: No Muscle spasm: Yes Loss of consciousness: No Sensitivity or pain of hands and/or feet: Yes Memory loss: No Night sweats: No PSYCHIATRIC: Excessive worries: No Anxiety: No Easily losing temper: No Depression: No Agitation: No Difficulty falling asleep: No Difficulty staying asleep: No ENDOCRINE: Excessive thirst: No HEMATOLOGIC/LYMPHATIC: Swollen glands: No Tender glands: No Anemia: No Bleeding tendency: No Transfusion/ when: No ALLERGIC/IMMUNOLOGIC; Frequent sneezing: No Increased susceptibility to infection: No BP 128/82 Pulse 85 Temp 37 C (98.6 F) Ht 156.2 cm (5' 1.5) Wt 52.3 kg (115 lb 4.8 oz) LMP 02/25/2024 (Approximate) BMI 21.43 kg/m Physical Exam GENERAL: Well appearing, alert, comfortable, in no acute distress, well- hydrated, well nourished. HEENT: Negative for external ears normal. Canals are clear. Both TMs visualized and are normal. EyeExam normal. External nose normal, no nasal ulcer or throat ulcer. NECK: NECK Supple, no adenopathy; thyroid symmetric, normal size, no bruits CARDIAC: regular rate and rhythm, No murmur asculated., and Equal peripheral pulses RESPIRATORY: Lungs clear to auscultation. No wheezing, rhonchi, rales VASCULAR: RRR without murmur, gallop, or rubs. No ectopy. ABDOMEN: Soft, non tender. BS active. No masses or organomegaly. LYMPHATIC: Negative for adenopathy in the neck, axillae, groin, supraclavicular and auricular. NEURO: Motor and sensory exam normal MOTOR: Normal; including tone, gait, stressed gait, power and coordination. SKIN: Negative for alopecia, skin rash, malar rash, skin lesion, skin ulcer, pits, thickening, color changes, telangiectasias, nail changes, nail ridging, nail pitting, onycholysis MUSCULOSKELETAL: No fullness or tenderness involving any joint No hypermobility of the joints noted Lab Results: Glucose 94 06/29/2024 ALT 12 06/29/2024 WBC 7.69 06/29/2024 Hemoglobin 13.3 06/29/2024 Platelet Count 188 06/29/2024 WSR 2 03/01/2024 CRP <0.3 03/01/2024 Serology: January 2024-KHRIS 1: 80, SSA and SSB negative, rheumatoid factor negative September 2023 gastric parietal IgG elevated 128.08 April [id number] at 05 February 2024 MARY antibody negative Radiology: None of relevance Assessment (R50.81) Fever in other diseases (primary encounter diagnosis) (K31.84) Gastroparesis (G90.A) POTS (postural orthostatic tachycardia syndrome) (G93.32) Chronic fatigue syndrome 23-year-old pleasant lady with 1. Positive KHRIS-low titer KHRIS of 1: 80, borderline TOOL LAPPER HAND of 1 in the past-unclear if this is of any significance. Not seeing any clear evidence for systemic autoimmune process. 2. History of POTS syndrome-has had positive tilt table testing in the past and sees neurologist regularly. On beta-alvino 3. Abdominal pain, intermittent diarrhea and constipation-has been diagnosed with autoimmune gastritis and gastroparesis-has positive antiparietal antibodies. Sees phone specialist regularly. Has had EGD but no colonoscopy 4. Recurrent fevers, oral ulcerations, joint pains-describes flares every 2 weeks-symptoms last fora week at a time. Also associated with GI symptoms and weight loss. Has been hospitalized in the past for IV hydration-secondary to POTS versus other? 5. Gluten-free diet-celiac serologies on gluten-free diet negative #6 family history of Graves' #7 perioral dermatitis-has seen ccnp Plan Has history of POTS but not seeing hypermobility EDS on exam Has low titer KHRIS 1: 80 and borderline TOOL LAPPER HAND-no clear evidence for systemic autoimmune process Symptoms may be associated with POTS, has had hospitalizations for GI symptoms which could be from autonomic dysfunction and GI dysmotility. Continue hydration, continue follow-up with neurologist and continue beta-blockers With episodes of fevers, oral ulcerations we will also check KHRIS with reflex, NGS panel for inflammatory disorders through [facility] Inflammatory markers have been normal in the past-recheck inflammatory markers Check CPK and hepatitis panel Check scleroderma antibody and centromere antibody TSH through PCP has been normal-continue to monitor with family history of Graves' Follow-up in 6 weeks This note was partially generated using [employer] voice recognition system, and there may be some incorrect words, spellings, and punctuation that were not noted in checking the note before saving. Office Visit on 07/13/24 HEPATITIS B SURFACE ANTIGEN HEPATITIS B SURFACE ANTIBODY HEPATITIS C ANTIBODY IA WITH CONFIRMATION HEPATITIS B CORE ANTIBODY TOTAL C-REACTIVE PROTEIN CCP ANTIBODY IGG URIC ACID *Canceled* RHEUMATOID FACTOR SEDIMENTATION RATE, WESTERGREN KHRIS BLOOD *Canceled* ALVARADO IGG AB C3 COMPLEMENT C4 COMPLEMENT SCLERODERMA IGG AB THYROID PEROXIDASE ANTIBODY BARBIE-1 AB MITOCHONDRIAL M2 IGG SERUM DNA AB DS + CONF BLD KHRIS BY IFA WITH REFLEX SJOGREN ABS SSA/SSB TOOL LAPPER HAND ANTIBODY BLOOD CREATINE KINASE/CK MISC SEND OUT TST 1 CONSULT TO RHEUM/IMMUN DISEASE Return in about 6 weeks (around 08/24/2024). I spent a total of 80 minutes on the date of the service which included [id number] patient care, completing clinical documentation, performing a medically appropriate examination, ordering medications, tests, or procedures, and communicating with other HCPs (not separately reported). Alan Cortés MD documented [facility] Telephone encounter Note * Telephone Encounter - Bernie Martines MD - 06/29/2024 8:41 AM EST Dear Rosalio, please advise patient it is hard to tell from the picture but they seem to be like dark lumps of stool. If they are truly black, then the concern is this could be a slow GI bleed. I recommend an ER eval with imaging and blood count checks since those pains are new and seem to besevere. Also could you check with her if she has been using any NSAIDs lately? [facility] Miscellaneous Notes* Telephone Encounter - Bernie Martines MD - 06/29/2024 8:41 AM EST Dear Rosalio, please advise patient it is hard to tell from the picture but they seem to be like dark lumps of stool. If they are truly black, then the concern is this could be a slow GI bleed. I recommend an ER eval with imaging and blood count checks since those pains are new and seem to besevere. Also could you check with her if she has been using any NSAIDs lately? documented in this encounterMartin [facility]12-09-2024 Chief complaint+Reason for visit Narrative* Chief Complaint Admit Date reevaluation June 14, 2024 3 :51pm XRAY June 15, 2024 7:47am Back pain June 22, 2024 4:30pm Back pain July 15, 2024 12 :28pm Annual (LINING CUTTER) August 13, 2024 3 :53pm Back pain August 26, 2024 5:25pm COUGH, SORE THROAT, CONGESTION September 9:40am Reason for Visit Admit Date Segmental and somatic dysfunction of cer vical region June 14, 2024 3:51pm Segmental and somatic dysfunction of lum bar region June 14, 2024 3:51pm Segmental and somatic dysfunction of tho racic region June 14, 2024 3:51pm Segmental and somatic dysfunction of cer vical region June 22, 2024 4:30pm Segmental and somatic dysfunction of lum bar region June 22, 2024 4:30pm Segmental and somatic dysfunction of pel sheri region June 22, 2024 4:30pm Segmental and somatic dysfunction of tho racic region June 22, 2024 4:30pm Scoliosis of lumbar spine June 22, 2024 4:30pm Segmental and somatic dysfunction of cer vical region July 15, 2024 12:28pm Segmental and somatic dysfunction of lum bar region July 15, 2024 12:28pm Segmental and somatic dysfunction of pel sheri region July 15, 2024 12:28pm Segmental and somatic dysfunction of tho racic region July 15, 2024 12:28pm Scoliosis of lumbar spine July 15 025 12:28pm Encounter for routine gynecological exam ination August 13, 2024 3:53pm Segmental and somatic dysfunction of cer vical region August 26, 2024 5:25pm Segmental and somatic dysfunction of lum bar region August 26, 2024 5:25pm Segmental and somatic dysfunction of pel sheri region August 26, 2024 5:25pm Segmental and somatic dysfunction of tho racic region August 26, 2024 5:25pm Scoliosis of lumbar spine August 26, 2024 5:25pm Gastroparesis September 19, 2024 9:4 0am URI (upper respiratory infection) September 19, 2024 9:40am [facility] Work Phone: 1(997) 685-574112-09-2024 Evaluation note* Diagnosis Onset Date Resolution Status Admit Date Segmental and somatic dysfunction of cervical region acute June 14 3:51pm Segmental and somatic dysfunction of lumbar region acute Jun emb2023 3:51pm Segmental and somatic dysfunction of thoracic region acute June 14 3:51pm Segmental and somatic dysfunction of cervical region acute June 22, 2 024 4:30pm Segmental and somatic dysfunction of lumbar region acute Jun emb2023 4:30pm Segmental and somatic dysfunction of pelvic region acute Jun emb2023 4:30pm Segmental and somatic dysfunction of thoracic region acute June 22, 2 024 4:30pm Scoliosis of lumbar spine chronic June 22, 2024 4:30pm Segmental and somatic dysfunction of cervical region acute July 15 12:28pm Segmental and somatic dysfunction of lumbar region acute Jul 12:28pm Segmental and somatic dysfunction of pelvic region acute Jul 12:28pm Segmental and somatic dysfunction of thoracic region acute July 15 12:28pm Scoliosis of lumbar spine chronic July 15, 2024 12:28pm Encounter for routine gynecological examination noneactive 2024 3:53pm Segmental and somatic dysfunction of cervical region acute August 26, 2 025 5:25pm Segmental and somatic dysfunction of lumbar region acute Aug 5:25pm Segmental and somatic dysfunction of pelvic region acute Aug 5:25pm Segmental and somatic dysfunction of thoracic region acute August 26, 025 5:25pm Scoliosis of lumbar spine chronic August 26, 2024 5:25pm Gastroparesis acute September 19, 2024 9:40am URI (upper respiratory infection) acute September 19, 2024 9:40am [facility] Work Phone: 1(706) 295-540311-22-2024 Miscellaneous Notes* Telephone Encounter - Kimberly Vogt - 05/28/2024 9:14 AM EST Outside lab results scanned in [facility] Kimberly Vogt documented in this encounterMartin [facility]11-[facility] Telephone encounter Note * Telephone Encounter - Kimberly Vogt - 05/28/2024 9:14 AM EST Outside lab results scanned in [facility] Kimberly Vogt [facility]11-[facility] Telephone encounter Note* Telephone Encounter - Charo Wilson RN - 05/26/2024 10:16 AM EST Approved through 05/26/2025. [facility] Work Phone: 1(586) 556-628711-20-2024 Miscellaneous Notes* Telephone Encounter - Charo Wilson RN - 05/26/2024 10:16 AM EST Approved through 05/26/2025. * Telephone Encounter - Charo Wilson RN - 05/26/2024 10:10 AM EST Submitted PA for Linzess via CM. Chinchilla: [id number] documented in this encounterMartin [facility]11-20-2024 Telephone encounter Note * Telephone Encounter - Charo Wilson RN - 05/26/2024 10:10 AM EST Submitted PA for Linzess via CM. Chinchilla: [id number] [facility]11-[facility] History of Present illness Narrative* Bernie Martines MD - 05/26/2024 10:00 AM EST DEPARTMENT OF GASTROENTEROLOGY - FOLLOW UP VISIT HISTORY OF PRESENT ILLNESS Mikayla Blunt is a 23 year old female who presents today for follow up of constipation, nausea 2/2gastroparesis and elevated gastrin level (negative DOTATATE scan). Interval Events: - She has been following with Dr. Tamayo and has been doing great on Mestinon and Linzess combo. - Has been having some leg cramps and getting K supplementation with PCP- asking for repeat BMP to follow up on K levels. - Completed H pylori treatment, we still need to confirm eradication - Gastrin levels previously elevated despite fasting levels off PPI for 2 weeks, DOTATATE scan was negative. TEST RESULTS SINCE LAST VISIT Imaging/Procedures: EGD 04/09/24: - Normal esophagus. - Normal stomach. - Normal examined duodenum. - Multiple biopsies were obtained in the gastric fundus, in the gastric body, on the anterior wall of the stomach, on the greater curvature of the stomach, on the lesser curvature of the stomach and in the gastric antrum. FINAL DIAGNOSIS A. Stomach, antrum, biopsy: - Gastric antral type mucosa with mild chronic inactive gastritis; negative for Crohn's disease seecomment. B. Stomach, lesser curve, biopsy: - Gastric antral type mucosa with chronic inactive gastritis; negative for Crohn's disease; see comment. C. Stomach, greater curve, biopsy: - Gastric antral type mucosa with mild chronic inactive gastritis; negative for Crohn's disease seecomment. D. Stomach, fundus, biopsy: - Gastric oxyntic type mucosa with chronic inactive gastritis; see comment Capsule endoscopy 04/15/24: Impression: Blood was seen in the opropharynx and stmach due to placement of the capsule Other Normal study PET CT 04/13/24: IMPRESSION: PRIMARY DISEASE SITE: * No SSTR2 expressing gastroenteropancreatic neoplasm. SOUMYA DISEASE: * No SSTR2 expressing regional lymphadenopathy. METASTATIC DISEASE: * No SSTR2 expressing distant metastases. Hemoglobin (g/dL) Date Value 03/04/2024 13.9 07/26/2021 14.1 Hematocrit (%) Date Value 03/04/2024 41.6 07/26/2021 43.2 WBC (k/uL) Date Value 03/04/2024 6.25 07/26/2021 5.77 Glucose (mg/dL) Date Value 03/01/2024 91 07/26/2021 99 Potassium (mmol/L) Date Value 03/01/2024 4.2 07/26/2021 3.6 Sodium (mmol/L) Date Value 03/01/2024 141 07/26/2021 140 Chloride (mmol/L) Date Value 03/01/2024 104 07/26/2021 101 CO2 (mmol/L) Date Value 03/01/2024 24 07/26/2021 27 Creatinine (mg/dL) Date Value 03/01/2024 0.67 07/26/2021 0.68 BUN (mg/dL) Date Value 03/01/2024 8 07/26/2021 8 Anion Gap (mmol/L) Date Value 03/01/2024 13 07/26/2021 12 Calcium (mg/dL) Date Value 07/26/2021 9.2 Calcium, Total (mg/dL) Date Value 03/01/2024 9.8 Protein, Total (g/dL) Date Value 02/01/2024 5.8 04/10/2020 6.8 Albumin (g/dL) Date Value 02/01/2024 4.0 07/26/2021 4.9 Bilirubin, Total (mg/dL) Date Value 02/01/2024 0.3 04/10/2020 0.2 Alkaline Phosphatase (U/L) Date Value 02/01/2024 45 04/10/2020 56 AST (U/L) Date Value 02/01/2024 21 04/10/2020 20 ALT (U/L) Date Value 02/01/2024 16 04/10/2020 12 Latest Ref Rng 09/20/2023 11/13/2023 03/01/2024 Gastrin <115.0 pg/mL 151.0 (H) 437.0 (H) 500.0 (H) Current Outpatient Medications Medication Sig Dispense Refill famotidine (PEPCID) 20 mg tablet Take 1 tablet by mouth two times a day. 60 tablet 5 gabapentin (NEURONTIN) 100 mg capsule Take 100mg twice a day and 300mg at bedtime. 150 capsule 5 pyridostigmine (MESTINON) 60 mg tablet Take 1 tablet by mouth three times a day. 90 tablet 5 tenapanor (IBSRELA) 50 mg tablet Take 1 tablet (50 mg) by mouth two times a day. 60 tablet 5 linaCLOtide (LINZESS) 290 mcg capsule Take 1 capsule by mouth daily at 6 am. 30 capsule 2 potassium chloride SR (MICRO-K) 10 mEq CR capsule Take 10 mEq by mouth. propranolol ER (INDERAL LA) 60 mg 24 hr capsule Take 1 capsule by mouth once daily. 90 capsule 3 methylphenidate ER (CONCERTA) 18 mg biphasic tablet Take 1 tablet by mouth every morning for 30 days. 30 tablet 0 MULTIVITAMIN ORAL Take 1 tablet by mouth once daily. No current facility-administered medications for this visit. ALLERGIES Allergen Reactions Cefdinir Swelling Hydrocodone-Acetami* Swelling Latex Swelling Penicillins Rash Benadryl [Diphenhyd* Mental Status Change agitation Droperidol Other: See Comments akathesia Compazine [Prochlor* Intolerance Restlessness, agitation Gluten GI Upset Versed [Midazolam H* Mental Status Change Pulling out IV's, extremely confused and restless, getting on hands and knees REVIEW OF SYSTEMS Per HPI PHYSICAL EXAMINATION LMP 02/25/2024 General Appearance: alert, oriented x 3, pleasant and in no acute distress Eyes: Negative for significant chage in vision, and significant vision problems Abdomen: not distended, normal bowel sounds, soft and depressible, no guarding or rebound, no palpable mass, no organomegaly, non tender Rectal exam: deferred Extremities: no cyanosis or edema Skin: no jaundice, no spider angiomas, no palmar erythema Neuro: alert, oriented x 3, pleasant and in no acute distress' Assessment IMPRESSION Ms. Blunt is a 23 year old year old female with history of H pylori gastritis (+ serologies for AIG but no evidence of AIG on pathology) s/p treatment (need to confirm eradication off PPI), gastroparesis, constipation, who presents today for routine follow up. Has been doing great on Mestinon and Linzess combo. Follows with Dr. Tamayo for gastroparesis and constipation. Colonoscopy not completed yet. Encouraged her to complete it to ensure no colonic Crohn;s disease given history of recurrent mouth ulcers. Doing great otherwise. PLAN Encouraged patient to get colonoscopy done to confirm no Crohn's colitis. Encouraged patient to follow up with rheumatology regarding mouth ulcers and to rule out underlyingrheumatological disease. Repeat gastrin in a month- fasting test and stop pepcid or other acid suppressants for 2 weeks prior Recheck BMP and Mg levels given cramping Plan is to follow up in three months. I spent a total of 30 minutes on the date of the service which included preparing to see the patient, [id number] patient care, completing clinical documentation, obtaining and/or reviewing separately obtained history, performing a medically appropriate examination, counseling and educating the pat ient/family/caregiver, and ordering medications, tests, or procedures. Bernie Martines MD May 26, 2024 documented in this encounterMartin [facility]11-20-2024 NoteProm[facility] History of Present illness Narrative* Harinder Oconnor, RT(R) - 04/13/2024 7:30 AM EDT RADIOLOGY SERVICE PROGRESS NOTE SERVICE DATE: 04/13/2024 SERVICE TIME: 7:23 AM PATIENT IDENTITY VERIFICATION COMPLETED USING TWO (2) STANDARD IDENTIFIERS: Name and Date of confirmed by patient verbally FALL SCREENING: Has the patient had 2 falls in the last year or 1 fall with injury or currently using an Ambulatory Assistive Device (Walker, Cane, Wheelchair, Crutches, etc.)? No PATIENT GENDER DATA: .female : No ALLERGIES: Reviewed and unchanged MEDICATIONS REVIEWED: No PATIENT RELEVANT IMPLANT DATA REVIEWED: Not Applicable PATIENT PRESENTS WITH AN IMPLANTABLE OR ATTACHED COORDINATOR OF HEALTH SERVICES: No CREATININE: Creatinine Date Value Ref Range Status 03/01/2024 0.67 0.58 - 0.96 mg/dL Final 02/05/2024 0.72 0.58 - 0.96 mg/dL Final 02/04/2024 0.75 0.58 - 0.96 mg/dL Final Estimated Glomerular Filtration Rate Date Value Ref Range Status 03/01/2024 128 >=60 mL/min/1.73m Final Comment: Estimated Glomerular Filtration Rate (eGFR) is calculated using the 2020 CKD-EPI creatinine equation. This equation utilizes serum creatinine, sex, and age as parameters. The creatinine assay has traceable calibration to isotope dilution- mass spectrometry. Refer to KDIGO guidelines for clinical interpretation. In patients with unstable renal function, e.g. those with acute kidney injury, the eGFRmay not accurately reflect actual GFR. eGFR- Date Value Ref Range Status 07/26/2021 >60 Final P.O.C.T. RESULTS: N/A April 13, [address] PERFORMED: No IV SITE: Ambulatory: A peripheral IV was started in the Left antecubital site with a Angio cath: 24gauge. POST EXAM PIV STATUS: Discontinued PROCEDURE TYPE: NM INJECT: DOTATATE PET. 5.6 mCi [id number]. No other medications given.. ADMINISTRATION TIME: 720 PATIENT DISCHARGED TO: Ambulatory patient, left NM department area. A Diagnostic radioactive procedure has taken place, with no further precautions necessary other than routine body substance precautions. More information regarding radiation safety can be found usingthis link: [email or web address] SIGNATURE: RT Norbert(R) PATIENT NAME: Mikayla Blunt DATE: April 13, 2024 TIME: 7:23 AM PAGER/CONTACT #: documented in this encounterMartin [facility] Telephone encounter Note * Telephone Encounter - Britta Ruiz RN - 04/12/2024 12:42 PM EDT Called patient and reviewed message. Patient agrees with plan . No further questions. Britta Ruiz Rn [facility]10-07-[facility]24 Miscellaneous Notes* Telephone Encounter - Britta Ruiz RN - 04/12/2024 12:42 PM EDT Called patient and reviewed message. Patient agrees with plan . No further questions. Britta Ruiz Rn * Telephone Encounter - Dustin Tamayo DO - 04/12/2024 11:58 AM EDT I do not think there is an issue with the PET scan and the capsule being inside. That would be a question for radiology. She can try taking a bowel cleanse with Gatorade and MiraLAX. * Telephone Encounter - Britta Ruiz RN - 04/12/2024 8:56 AM EDT Returned patients call regarding questions she has about her Pet scan. She stated she still has the pill inside from her procedure from Friday.. She saw Dr. Tamayo on 04/08 and her new medication had been working great. Since her procedure on Friday She has not really had a BM., even has taken Miralax . She is asking if it is still ok to have the PET scan tomorrow since she has not passed the pill andhas not had a any good BM.. She feels the Linzess and Mestinon are not working now . Abdomen much firmer and now more nauseated. Please advise. Britta Ruiz Rn * Telephone Encounter - Dimitri Jiménez - 04/12/2024 8:35 AM EDT Patient will be having PET scan tomorrow and wants to know if it is okay with doctors. Patient alsostates that medication prescribed to her was working but is now non effective she is having abdominal pain, nausea and has a firm stomach documented in this encounterMartin [facility]10-07-[facility]24 Telephone encounter Note * Telephone Encounter - Dustin Tamayo DO - 04/12/2024 11:58 AM EDT I do not think there is an issue with the PET scan and the capsule being inside. That would be a question for radiology. She can try taking a bowel cleanse with Gatorade and MiraLAX. [facility] Telephone encounter Note* Telephone Encounter - Britta Ruiz RN - 04/12/2024 8:56 AM EDT Returned patients call regarding questions she has about her Pet scan. She stated she still has the pill inside from her procedure from Friday.. She saw Dr. Tamayo on 04/08 and her new medication had been working great. Since her procedure on Friday She has not really had a BM., even has taken Miralax . She is asking if it is still ok to have the PET scan tomorrow since she has not passed the pill andhas not had a any good BM.. She feels the Linzess and Mestinon are not working now . Abdomen much firmer and now more nauseated. Please advise. Britta Ruiz Rn [facility]10[facility] Telephone encounter Note* Telephone Encounter - Dimitri Jiménez - 04/12/2024 8:35 AM EDT Patient will be having PET scan tomorrow and wants to know if it is okay with doctors. Patient alsostates that medication prescribed to her was working but is now non effective she is having abdominal pain, nausea and has a firm stomach [facility]10[facility] History and physical note* Darryn Mckeon PA-C - 04/09/2024 8:30 AM EDT UPDATED HISTORY AND PHYSICAL EXAMINATION SERVICE DATE: 04/09/2024 SERVICE TIME: 7:23 AM SERVICE: Gastroenterology PHYSICAL EXAM MUST BE COMPLETED ON ADMISSION The History and Physical (completed in the past 30 days) has been reviewed and the patient has beenexamined. The contents accurately reflect the patient's condition with the following additions or revisions since the H&P was completed. Patient denies any changes to health since last examination. Planned procedure for today is EGD [facility]. Past medical history, past surgical history, social history and family history reviewed and updatedin [facility]. ALLERGIES Allergen Reactions Cefdinir Swelling Hydrocodone-Acetami* Swelling Latex Swelling Penicillins Rash Benadryl [Diphenhyd* Mental Status Change agitation Droperidol Other: See Comments akathesia Compazine [Prochlor* Intolerance Restlessness, agitation Gluten GI Upset Versed [Midazolam H* Mental Status Change Pulling out IV's, extremely confused and restless, getting on hands and knees BP 116/75 Pulse 65 Temp 37.2 C (99 F) (Temporal) Resp 17 LMP 02/25/2024 (Approximate) SpO2 100% Examination indicates no changes. On examination today: Lungs: Clear to auscultation bilaterally. Heart: RRR, Normal S1/S2, No significant murmurs, rubs, gallops or thrills appreciated. Abdomen: BS+ in all quadrants, abdomen is soft, non tender, and without guarding. Assessment: Gastroparesis Plan: EGD This H&P can be found in the Electronic Medical Record dated 03/24/2024 by Tena Harris APRN.CORRECTIONAL PROBATION OFFICER SIGNATURE: Darryn Mckeon PA-C PATIENT NAME: Mikayla Blunt DATE: April 09, 2024 TIME: 7:23 AM [facility] Work Phone: [phone] 307-938810-04-2024 History and physical note* Darryn Mckeon PA-C - 04/09/2024 8:30 AM EDT UPDATED HISTORY AND PHYSICAL EXAMINATION SERVICE DATE: 04/09/2024 SERVICE TIME: 7:23 AM SERVICE: Gastroenterology PHYSICAL EXAM MUST BE COMPLETED ON ADMISSION The History and Physical (completed in the past 30 days) has been reviewed and the patient has beenexamined. The contents accurately reflect the patient's condition with the following additions or revisions since the H&P was completed. Patient denies any changes to health since last examination. Planned procedure for today is EGD Medication reconciliation list [facility]. Past medical history, past surgical history, social history and family history reviewed and updatedin [facility]. ALLERGIES Allergen Reactions Cefdinir Swelling Hydrocodone-Acetami* Swelling Latex Swelling Penicillins Rash Benadryl [Diphenhyd* Mental Status Change agitation Droperidol Other: See Comments akathesia Compazine [Prochlor* Intolerance Restlessness, agitation Gluten GI Upset Versed [Midazolam H* Mental Status Change Pulling out IV's, extremely confused and restless, getting on hands and knees BP 116/75 Pulse 65 Temp 37.2 C (99 F) (Temporal) Resp 17 LMP 02/25/2024 (Approximate) SpO2 100% Examination indicates no changes. On examination today: Lungs: Clear to auscultation bilaterally. Heart: RRR, Normal S1/S2, No significant murmurs, rubs, gallops or thrills appreciated. Abdomen: BS+ in all quadrants, abdomen is soft, non tender, and without guarding. Assessment: Gastroparesis Plan: EGD This H&P can be found in the Electronic Medical Record dated 03/24/2024 by Tena Harris APRN.CORRECTIONAL PROBATION OFFICER SIGNATURE: Darryn Mckeon PA-C PATIENT NAME: Mikayla Blunt DATE: April 09, 2024 TIME: 7:23 AM documented in this encounterMartin [facility] Hospital10-04-2024 NoteHNO ID: [id number] Author: AGUSTÍN ARAGON RN Service: ? Author Type: Registered Nurse Type: Nursing Progress Note Filed: 04/09/2024 07:18 Note Text: Pt is doing well and has her call light.[facility]10-04-2024 Nurse Note* Agustín Aragon RN - 04/09/2024 7:18 AM EDT Pt is doing well and has her call light. [facility] Nurse Note* Agustín Aragon RN - 04/09/2024 7:18 AM EDT Pt is doing well and has her call light. documented in this encounterMartin [facility] Hospital10-03-2024 History of Present illness Narrative* Dustin Tamayo DO - 04/08/2024 7:28 AM EDT FOLLOW UP VIRTUAL VISIT I have communicated my name and active licensure. The patient's identity and physical location wereverified at the time of this visit. Either the patient or their legal scheduling representative has been informed of the risks and benefits of -- and alternatives to -- treatment through a remote evaluation andconsents to proceed with the evaluation remotely. This visit was conducted as a virtual visit. CHIEF COMPLAINT Patient presents with: Gastroparesis Abdominal Pain Ms. Blunt is here today for follow-up of: Gastroparesis abdominal pain. HPI I saw this patient in follow up for the gi issues by virtual visit. This patient was seen as a new consult on 03/01/2024. The autoimmune blood work was unremarkable. The EGG RESULTS demonstrated a relatively normal pattern of 3 cycle per minute waves until 15 minutes into the study when mixed dysrhythmia took over. The GMAT Score was negative. Water load satiety tolerance was borderline at 300. She feels the mestinon has worked well for her. The combination of mestinon and linzess are making herbowels move. Her gastrin level is climbing off PPI and H2 alvino. Her egd is to be done in AM. Current Outpatient Medications Medication Sig Dispense Refill famotidine (PEPCID) 20 mg tablet Take 1 tablet by mouth two times a day. 60 tablet 5 gabapentin (NEURONTIN) 100 mg capsule Take 100mg twice a day and 300mg at bedtime. 150 capsule 5 pyridostigmine (MESTINON) 60 mg tablet Take 1 tablet by mouth three times a day. 90 tablet 5 tenapanor (IBSRELA) 50 mg tablet Take 1 tablet (50 mg) by mouth two times a day. 60 tablet 5 linaCLOtide (LINZESS) 290 mcg capsule Take 1 capsule by mouth daily at 6 am. 30 capsule 2 potassium chloride SR (MICRO-K) 10 mEq CR capsule Take 10 mEq by mouth. propranolol ER (INDERAL LA) 60 mg 24 hr capsule Take 1 capsule by mouth once daily. 90 capsule 3 methylphenidate ER (CONCERTA) 18 mg biphasic tablet Take 1 tablet by mouth every morning for 30 days. 30 tablet 0 MULTIVITAMIN ORAL Take 1 tablet by mouth once daily. No current facility-administered medications for this visit. ALLERGIES Allergen Reactions Cefdinir Swelling Hydrocodone-Acetami* Swelling Latex Swelling Penicillins Rash Benadryl [Diphenhyd* Mental Status Change agitation Droperidol Other: See Comments akathesia Compazine [Prochlor* Intolerance Restlessness, agitation Gluten GI Upset Versed [Midazolam H* Mental Status Change Pulling out IV's, extremely confused and restless, getting on hands and knees Social History Tobacco Use Smoking status: Never Passive exposure: Never Smokeless tobacco: Never Vaping Use Vaping status: Never Used Substance Use Topics Alcohol use: No Drug use: No Medical History: No changes since last visit. REVIEW OF SYSTEMS: GENERAL: weight stable, no fevers. CARDIOVASCULAR: No chest pain, no edema RESPIRATORY: No dyspnea : Negative LINING CUTTER: Negative The remainder of the review of systems are negative. Reviewed with patient during visit today. PHYSICAL EXAMINATION: LMP 02/25/2024 Estimated weight: GENERAL APPEARANCE: Well developed and well nourished. SKIN: Skin color, texture, turgor normal. No rashes or lesions. EYES: Conjunctiva normal without icterus. OROPHARYNX: lips, mucosa, and tongue normal, teeth and gums normal NECK: no JVD LUNGS: Normal respirations on RA HEART:pt describes normal heart rythm NEURO: Alert and oriented in no acute distress. ABDOMEN: nondistended EXTREMITIES:Extremities normal, No deformities, No skin discoloration, No edema . Assessment Encounter Diagnosis ICD-10-CM 1. Gastroparesis K31.84 2. Intractable nausea and vomiting R11.2 Proceed with EGD with biopsies of the stomach (gastric mapping), will need to determine if capsule endoscopy was approved. Dustin Tamayo DO 04/08/2024 documented in this encounterMartin [facility] Hospital10-01-2024 Nurse Note* Bernie De Anda RN - 04/06/2024 3:11 PM EDT [facility] ENDOSCOPY PRE PROCEDURE CALL Riccardo. I'm calling from [facility] endoscopy to provide you with the information for your surgery/procedure tomorrow. 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 Due to having sedation, there is no working or driving the day of the procedure. Your taxi truck driver is allowed to wait here with you or they may drop you off and come back to pick you up. Patient instructed: Do not eat anything the morning of the procedure, including gum, hard candy andmints.Yes Patient instructed not bring any valuables, jewelry, or lorenzo and wear comfortable clothing. Do not wear makeup, lotion, or finger mozambican. Yes Patient instructed: Please bring a list of medications including over the counter, vitamin, and herbals. If you are on inhalers, please do them in the morning before your test and bring them with you.Yes Blood pressure, seizure, or thyroid medications may be taken with a couple sips of water ONLY 4 hours prior to arrival time. Is the patient on blood thinners?no If so,verify if pt contacted the prescribing doctor to see how long they may hold blood thinners prior to procedure. Are you diabetic?No If so, advise pt to contact prescribing doctor to verify if any modifications are needed for insulin and/or pills Reminder:diabetic medication instructions should be given by the patient's ordering physician. If blood sugar drops, they can have CLEAR liquids to bring it up until 3 hours prior to arrival time. Hospitalizations: No Procedure and/or bowel prep instructions given to patient and questions answered: Yes, and they verbalized their understanding of instructions given Any barriers to Patient learning (confusion? Equipment Operat0R needed?): Patient/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 Tester responded appropriately on phone. Please complete your Pre-Check In paperwork in My Chart if applicable. If patient needs to reschedule please call: [phone] [facility] [address] phone number: [phone] Type of instruction given: Verbal by telephone contact. [facility]10[facility] Nurse Note* Bernie De Anda RN - 04/06/2024 3:11 PM EDT [facility] ENDOSCOPY PRE PROCEDURE CALL Riccardo. I'm calling from [facility] endoscopy to provide you with the information for your surgery/procedure tomorrow. 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 Due to having sedation, there is no working or driving the day of the procedure. Your taxi truck driver is allowed to wait here with you or they may drop you off and come back to pick you up. Patient instructed: Do not eat anything the morning of the procedure, including gum, hard candy andmints.Yes Patient instructed not bring any valuables, jewelry, or lorenzo and wear comfortable clothing. Do not wear makeup, lotion, or finger mozambican. Yes Patient instructed: Please bring a list of medications including over the counter, vitamin, and herbals. If you are on inhalers, please do them in the morning before your test and bring them with you.Yes Blood pressure, seizure, or thyroid medications may be taken with a couple sips of water ONLY 4 hours prior to arrival time. Is the patient on blood thinners?no If so,verify if pt contacted the prescribing doctor to see how long they may hold blood thinners prior to procedure. Are you diabetic?No If so, advise pt to contact prescribing doctor to verify if any modifications are needed for insulin and/or pills Reminder:diabetic medication instructions should be given by the patient's ordering physician. If blood sugar drops, they can have CLEAR liquids to bring it up until 3 hours prior to arrival time. Hospitalizations: No Procedure and/or bowel prep instructions given to patient and questions answered: Yes, and they verbalized their understanding of instructions given Any barriers to Patient learning (confusion? Equipment Operat0R needed?): Patient/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 Tester responded appropriately on phone. Please complete your Pre-Check In paperwork in My Chart if applicable. If patient needs to reschedule please call: [phone] [facility] phone number: [phone] Type of instruction given: Verbal by telephone contact. documented in this encounterMartin Memorial Hospital09-30-2024 History of Present illness Narrative* Nurys Tovar MD - 04/05/2024 12:30 PM EDT Images from the original note were not included. [facility] OUTPATIENT VISIT DATE 04/05/24 OUTPATIENT VISIT TYPE Patient Name and verified: Yes Patient Location: [place] This Virtual Visit was completed using My Chart Zoom platform. I have communicated my name and active licensure. The patient's identity and physical location wereverified at the time of this visit. Either the patient or their legal scheduling representative has been informed of the risks and benefits of -- and alternatives to -- treatment through a remote evaluation andconsents to proceed with the evaluation remotely. PROBLEM: Mikayla Blunt presents for postop virtual visit. She had laparoscopic b/l salpingectomy for management of tubal sterilization with a PMHx significant for gastritis, POTS, narcolepsy, and epilepsy, liver lesion. SUBJECTIVE/INTERVAL HISTORY: Mikayla Blunt reports that she feels well. No fever or chills. No shortness of breath, cough, or chest pain. No incisional redness, swelling, or drainage. Patient reports that her appetite is good. No abdominal pain, nausea, vomiting, diarrhea, or constipation. No dysuria, gross hematuria, urinary frequency, urinary urgency, or incontinence. She had a menses since surgery with no issues. Reports some scabbed on her LLQ incisions, but denies any drainage or pain in all incision sites. SURGERY & DATE: Laparoscopic bilateral salpingectomy with Dr. Teixeira on 03/09/24 FINDINGS Anterior cul-de-sac- normal Posterior cul-de-sac- normal Left ovarian fossa- normal Right ovarian fossa- normal Uterosacral ligaments- normal Uterus- 6 week size, anteverted, normal fallopian tubes- normal in appearance Ovaries- Right ovary 3 cm; Left ovary 3 cm; normal in appearance Bowel and Appendix- normal appearing Diaphragmatic peritoneum- normal appearing PATHOLOGY: SURGICAL PATHOLOGY: [id number] Order: [id number] Collected 03/09/2024 4:30 PM Component Resulting Agency FINAL DIAGNOSIS A. Right fallopian tube, resection: - Benign paratubal cysts. B. Left fallopian tube, resection: - Hydrosalpinx and benign paratubal cysts. OBJECTIVE: VITALS: Deferred for virtual visit GENERAL: She is alert, oriented, pleasant, and cooperative. LUNGS: Normal inspiratory effort ABDOMEN: Non-distended, incision(s) healing well. ASSESSMENT: Encounter Diagnosis ICD-10-CM 1. Post-operative state Z98.890 2. H/O bilateral salpingectomy Z90.79 Mikayla Blunt presents for postop virtual visit. She had laparoscopic b/l salpingectomy on 03/09/24 for sterilization due to medical history that would impose high risk per patient includinggastritis, POTS, narcolepsy, and epilepsy, liver lesion. PLAN: 1. Discussed results of pathology and implications with patient. 2. Postop restrictions removed 3. Follow up with her regular fryline attendant for annual exams. 4. We discussed the need for barrier contraception for prevention of STDs. I spent a total of 25 minutes on the date of the service which included preparing to see the patient, [id number] patient care, completing clinical documentation, obtaining and/or reviewing separately obtained history, performing a medically appropriate examination, counseling and educating the pat ient/family/caregiver, and and ordering medications, tests, or procedures. Nurys Tovar MD documented in this encounterMartin [facility] Hospital09-24-2024 Telephone encounter Note * Telephone Encounter - Jaida Robins - 03/30/2024 12:48 PM EDT Imaging requested: Dotatate Date & Time 04/13 @ 5224 Treatment Questionnaire: No, not currently on treatment as of March 30, 2024 Prep instructions given? Yes Confirmed Appointment With: Patient P [facility] [[id number]] Dotatate: Is the patient currently off treatment: short - acting 24 hours and long- acting is 28 days. No restrictions patient is allowed to eat and drink. PET Breast: Tamoxifen (Nolvadex or Soltamox) Toremifene (Fareston) - Hold 8 weeks Fluvestrant (Faslodex) - Hold for 28 weeks Prep - Well hydrated both before and after the scan No restrictions patient is allowed to eat and drink The Cerianna isotope cannot be injected into a port [facility]09-[facility] Miscellaneous Notes* Telephone Encounter - Jaida Robins - 03/30/2024 12:48 PM EDT Imaging requested: Dotatate Date & Time 04/13 @ 1629 Treatment Questionnaire: No, not currently on treatment as of March 30, 2024 Prep instructions given? Yes Confirmed Appointment With: Patient P [facility] [[id number]] Dotatate: Is the patient currently off treatment: short - acting 24 hours and long- acting is 28 days. No restrictions patient is allowed to eat and drink. PET Breast: Tamoxifen (Nolvadex or Soltamox) Toremifene (Fareston) - Hold 8 weeks Fluvestrant (Faslodex) - Hold for 28 weeks Prep - Well hydrated both before and after the scan No restrictions patient is allowed to eat and drink The Cerianna isotope cannot be injected into a port * Telephone Encounter - Jaida Robins - 03/30/2024 11:56 AM EDT 03/30/2024 1st Attempt, LVM * Telephone Encounter - Mouna Loera - 03/24/2024 10:57 AM EDT DOTATATE Comments for Speedometer Inspector: na Will the patient need anesthesia: NO Treatment: N/A N/A Date of Last Treatment: N/A Date of Future Treatment: N/A, verify with patient Primary Insurance: [employer] DX Imaging: N/A Diagnosis: Malignant carcinoid tumor, unspecified site (HCC) [C7A.00] Initial/Subsequent: Initial Pathology: na Labs: Latest Reference Range & Units 09/20/23 09:41 11/13/23 07:39 03/01/24 11:22 Gastrin <115.0 pg/mL 151.0 (H) 437.0 (H) 500.0 (H) (H): Data is abnormally high Clinical Notes Reviewed: 03/22/24 Date of last: na Additional Information/Imaging: N/A Dotatate [id number] [employer] Dotatate ([employer]) Auth#: [id number] Date Range: 03/29/24 - 06/22/24 Bernie Martines MD Site/Contact: Juan Carlos Hussein form on line Case/Ref#: [id number] Notes: To check on the status of this request, please contact [facility] at faxed clinics per form 03/24 03/25 re-faxed clinicals [phone] REF# [id number] Route to or Requested Scheduling Pool: P PET [employer]ANT OPERATOR , P [facility]([place]), P [facility] * Telephone Encounter - Ros Biggs - 03/22/2024 10:10 AM EDT This form is used for MAIN CAMPUS APPOINTMENTS ONLY. Is this request for a Main [place] PET scan appointment? Yes: Conduit Helper: Ros Biggs Requesting Person (Last Name, First Name): patient Area Code + Phone/Pager: [phone] Who do we call to schedule this appointment? Patient Requesting Staff Bernie Martines, Area Code + Phone/Pager: N/A PET Orders (A delay in scheduling will result if the orders are not present at time of review): Internal ADDITIONAL ACTION MAY BE REQUIRED IF PATIENTS OON INSURANCE OR SELF PAY COVERAGE HAS NOT BEEN CLEARED FOR REQUESTED APPOINTMENT. Scheduling: JAYDEN: As soon as insurance will allow What account will this PET appointment be linked to? P/F Type of PET: Oncology: Are there additional diagnostic CT scans required to be done at time of PET scan? No Is the request for a PET MR ? No What account will diagnostic testing appointment be linked to? P/F Will the patient need anesthesia? NO Send requests to P COORD REVIEW [facility] Tele[facility] encounter Note * Telephone Encounter - Jaida Robins - 03/30/2024 11:56 AM EDT 03/30/2024 1st Attempt, LVM [facility]09-18[facility] Telephone encounter Note* Telephone Encounter - Mouna Loera - 03/24/2024 10:57 AM EDT DOTATATE Comments for Speedometer Inspector: na Will the patient need anesthesia: NO Treatment: N/A N/A Date of Last Treatment: N/A Date of Future Treatment: N/A, verify with patient Primary Insurance: [employer] system DX Imaging: N/A Diagnosis: Malignant carcinoid tumor, unspecified site (HCC) [C7A.00] Initial/Subsequent: Initial Pathology: na Labs: Latest Reference Range & Units 09/20/23 09:41 11/13/23 07:39 03/01/24 11:22 Gastrin <115.0 pg/mL 151.0 (H) 437.0 (H) 500.0 (H) (H): Data is abnormally high Clinical Notes Reviewed: 03/22/24 Date of last: na Additional Information/Imaging: N/A Dotatate [id number] [employer] Dotatate ([employer]) Auth#: [id number] Date Range: 03/29/24 - 06/22/24 Bernie Martines MD [facility] Case/Ref#: [id number] Notes: To check on the status of this request, please contact [employer] at faxed clinics per form 03/24 03/25 re-faxed clinicals [phone] REF# [id number] Route to or Requested Scheduling Pool: P PET PETROLEUM TERMINAL PLANT OPERATOR KAYLEN, P EMELIA CLERICAL POOL([place]), Aric WOLFF FUND DEVELOPMENT MANAGER [facility] Work Phone: 1(750) 368-904609-18-2024 Telephone encounter Note* Telephone Encounter - Yoli Glass RN - 03/24/2024 10:42 AM EDT Patient called and given the message from Dr. Tamayo. Also sent via my chart per patient request. [facility]09[facility] Miscellaneous Notes* Telephone Encounter - Yoli Glass RN - 03/24/2024 10:42 AM EDT Patient called and given the message from Dr. Tamayo. Also sent via my chart per patient request. * Telephone Encounter - Dustin Tamayo DO - 03/24/2024 10:23 AM EDT The egg showed a weaker electrical system consistent with GP. The good news is that it was not veryfar off from normal. Labs were all ok. No autoimmune issue noted. * Telephone Encounter - Yoli Glass RN - 03/24/2024 10:11 AM EDT Please advise regarding EEG results from 03/01/2024. Thank you * Telephone Encounter - Gunjan Novoa - 03/24/2024 9:27 AM EDT Mikayla is calling Dustin Tamayo DO today to request Results Patient calling for her EGG results performed on 03-01-24. Please call to advise. Patient has been identified by name and birthdate. Duration of symptoms: N/A Person calling: self Call patient at: on cell [phone] (home) [phone] (cell) Was an appointment scheduled: Yes: Date/Time: 03-01-24 for EGG Closing statement: Gunjan Acevedo documented in this encounterMartin [facility]09-[facility] Telephone encounter Note * Telephone Encounter - Dustin Tamayo DO - 03/24/2024 10:23 AM EDT The egg showed a weaker electrical system consistent with GP. The good news is that it was not veryfar off from normal. Labs were all ok. No autoimmune issue noted. [facility] Telephone encounter Note* Telephone Encounter - Michelle Carreon RN - 03/24/2024 10:21 AM EDT Called patient and provided instructions that Dr. Tamayo wants her on clear liquids the day prior toher EGD. Patient has no further questions. [facility] Miscellaneous Notes* Telephone Encounter - Michelle Carreon RN - 03/24/2024 10:21 AM EDT Called patient and provided instructions that Dr. Tamayo wants her on clear liquids the day prior toher EGD. Patient has no further questions. * Telephone Encounter - Katy Anne - 03/24/2024 10:10 AM EDT Patient called Endo Scheduling and is asking about timing of liquids prior to her EGD with Dr Tamayo. She saw [facility] and they reccommended asking his office since she has GP. Please follow up with patient, thank you! documented in this encounterMartin [facility]09-[facility]24 Telephone encounter Note * Telephone Encounter - Yoli Glass RN - 03/24/2024 10:11 AM EDT Please advise regarding EEG results from 03/01/2024. Thank you [facility] Telephone encounter Note* Telephone Encounter - Katy Anne - 03/24/2024 10:10 AM EDT Patient called Endo Scheduling and is asking about timing of liquids prior to her EGD with Dr Tamayo. She saw [facility] and they reccommended asking his office since she has GP. Please follow up with patient, thank you! [facility] Telephone encounter Note* Telephone Encounter - Gunjan Novoa - 03/24/2024 9:27 AM EDT Mikayla is calling Dustin Tamayo DO today to request Results Patient calling for her EGG results performed on 03-01-24. Please call to advise. Patient has been identified by name and birthdate. Duration of symptoms: N/A Person calling: self Call patient at: on cell [phone] (home) [phone] (cell) Was an appointment scheduled: Yes: Date/Time: 03-01-24 for EGG Closing statement: Gunjan Acevedo [facility] Instructions* Patient Instructions* Tena Harris APRN.NEERU - 03/24/2024 9:25 AM EDT Images from the original note were not included. [facility] PATIENT PREOPERATIVE INSTRUCTIONS Dustin Tamayo DO has scheduled you for your procedure at this surgery center: [facility]: [phone] -- [place] [address]. Please read below carefully for your personalized instructions. Dietary Restrictions: - No solid food after midnight. Unless otherwise specified by Dr. Tamayo's office. - You may have 12 ounces of clear liquids (water, clear juices such as apple juice or gatorade, carbonated beverages, clear tea, black coffee, jello) until 2 hours before scheduled arrival at facility. Medications: Unless instructed differently below, stay on all of your medications until your surgery. If you start any new medications after today's visit, please contact your surgeon. Pre-Surgery Med Instructions Medication Instructions famotidine (PEPCID) 20 mg tablet Take the day of surgery with a small sip of water gabapentin (NEURONTIN) 100 mg capsule Take the day of surgery with a small sip of water pyridostigmine (MESTINON) 60 mg tablet Take the day of surgery with a small sip of water linaCLOtide (LINZESS) 290 mcg capsule Do not take the day of surgery potassium chloride SR (MICRO-K) 10 mEq CR capsule Take the day of surgery with a small sip of water propranolol ER (INDERAL LA) 60 mg 24 hr capsule Take the day of surgery with a small sip of water methylphenidate ER (CONCERTA) 18 mg biphasic tablet Do not take the day of surgery As directed if needed or if normally taken in the morning. Take evening/bedtime medications the night before surgery as you normally would. If you start any new medications after today's visit, please contact the surgeon's office. Blood Thinning Medications: - Stop NSAIDS (Ibuprofen, Advil, Aleve, Motrin, Celebrex, Mobic, etc.) 7 days before surgery, as directed by your surgeon. - Stop Aspirin 7 days before surgery, as directed by your surgeon. - Stop Vitamin E, ALL multi-vitamins, herbals and dietary supplements 7 days before surgery. - You may take Tylenol (Acetaminophen) or any of your pain medications that do not contain aspirin or NSAIDS as needed. Important Reminders: - If you use CPAP/BIPAP, bring the machine with you to the surgery center. - If you are prescribed inhalers for breathing, continue using them. - Candy, mints, and tobacco products are NOT permitted the morning of surgery. - Hearing aids, dentures and glasses may be worn the morning of surgery. - NO jewelry, body piercings, makeup, hairpins or contacts are to be worn the day of surgery. If you develop symptoms such as a fever, cold, or flu, or have other changes to your health within TWO DAYS of scheduled surgery or the morning of surgery, please contact the surgery center above. Personal Belongings: -Please have photo ID and insurance cards. -If you do not have a copy of advance directives on file with us, please bring a copy with you on the day of surgery. - Leave ALL valuables and money at home or with family members. For Outpatient Procedures: - YOU MUST HAVE A RESPONSIBLE ANALYSIS INTERNSHIP TAKE YOU HOME. A AUTOMATIC HEMMER OR DEVELOPMENT EXPERT CANNOT BE MADE A RESPONSIBLE ANALYSIS INTERNSHIP. - We recommend that a responsible person stays with you overnight to take care of you. - You cannot stay in a hotel alone after outpatient surgery. You will not be permitted to have yoursurgery, if you do not have someone to take care of you. Arrival Time for Surgery: - The Surgery Center or hospital where you are having surgery will call the afternoon before surgery (or Friday for Friday surgery) with a scheduled arrival time. - If you have not heard by 4 pm, please contact the surgery center above. Please be aware that emergency situations arise, which may delay or change your surgical time. If this happens, we will notify you as soon as possible and regret any inconvenience. If you already have an Advance Directive, please fax a copy to [phone] or email to for it to be added to your chart. If you do not have an Advance Directive, you can find the appropriate form and more information at [email or web address]. We recommend that youcomplete the Advance Directive form found on the website and bring it with you the day of your surgery. It can be witnessed and scanned into your chart that day. Tena Harris APRN.CNP documented in this encounterMartin [facility]09-18-2024 History and physical note * Tena Harris APRN.CNP - 03/24/2024 9:02 AM EDT This is a virtual visit using Virtual Visit (Audio/Visual)I have discussed the nature of this visit with the patient which will occur via [facility] (Phone, Virtual Visit) and she agrees to proceed with this interaction. It required patient-provider interaction for the medical decision making as documented below. I have communicated my name and active licensure. The patient's identity and physical location wereverified at the time of this visit. Either the patient or their legal scheduling representative has been informed of the risks and benefits of and alternatives to treatment through a remote evaluation and consents to proceed with the evaluation remotely. PREANESTHESIA CONSULT CLINIC TELEHEALTH VISIT Patient has been identified by name and date of : Yes This is a virtual visit using Lolayhart Zoom Video Visit. It require patient- provider interaction forthe medical decision making as documented below. Reason for contact: [facility] visit Accompanied by: Self Scheduled Surgery: EGD Subjective CHIEF COMPLAINT: Patient presents with: Anesthesia Consult HPI: This is a 23 year old female who presents for [facility] with diagnosis of gastroparesis scheduled for EGD, video capsule study reports ruling out crohn's or any underlying inflammatory bowel syndromes. Denies any new or worsening GI symptoms, chronic symptoms ongoing. Denies blood in stool. 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 History of Penicillin Allergy Urticaria Due to Drug Allergy Adverse Effect of Cephalosporins and Other Beta-Lactam Antibiotics, Initial Encounter Seasonal Allergic Rhinitis Due to Pollen Elevated Blood Pressure Reading Without Diagnosis of Hypertension Pre-Op Examination Gerd (Gastroesophageal Reflux Disease) Mild Intermittent Asthma Without Complication Pots (Postural Orthostatic Tachycardia Syndrome) Delayed Emergence From Anesthesia Epilepsy (Hcc) Cyst of Right Ovary Drug-Induced Constipation Chronic Superficial Gastritis Without Bleeding Gastroparesis Intractable Nausea and Vomiting Malnutrition of Moderate Degree (Hcc) Chronic Abdominal Pain Liver Hemangioma Ruq Abdominal Pain Nausea Vomiting and Diarrhea Malnutrition of Mild Degree (Hcc) Ponv (Postoperative Nausea and Vomiting) 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) off AEDs since 2017 GERD (gastroesophageal reflux disease) Hypertension 04/11/2020 Migraine without aura and without status migrainosus, not intractable 05/11/2020 Mild intermittent asthma without complication MT (mallet [...] TONSIL AND ADENOI UNDER AGE 12 02/12/2010 SALPINGECTOMY FAMILY HISTORY Problem Relation Age of Onset Graves Disease Mother Heart Mother SVT Allergies Father Asthma Brother Allergies Maternal Grandmother Hypertension Maternal Grandfather Allergies Maternal Grandfather Heart Maternal Grandfather mat side/pat side Breast Cancer Paternal Grandmother No Known Problems Paternal Grandfather Anesthesia Problems No Family History Social History Tobacco Use Smoking status: Never Passive exposure: Never Smokeless tobacco: Never Vaping Use Vaping status: Never Used Substance Use Topics Alcohol use: No Drug use: No ALLERGIES Allergen Reactions Cefdinir Swelling Hydrocodone-Acetami* Swelling Latex Swelling Penicillins Rash Benadryl [Diphenhyd* Mental Status Change agitation Droperidol Other: See Comments akathesia Compazine [Prochlor* Intolerance Restlessness, agitation Gluten GI Upset Versed [Midazolam H* Mental Status Change Pulling out IV's, extremely confused and restless, getting on hands and knees MEDICATIONS: Current Outpatient Medications Medication Sig famotidine (PEPCID) 20 mg tablet Take 1 tablet by mouth two times a day. gabapentin (NEURONTIN) 100 mg capsule Take 100mg twice a day and 300mg at bedtime. pyridostigmine (MESTINON) 60 mg tablet Take 1 tablet by mouth three times a day. linaCLOtide (LINZESS) 290 mcg capsule Take 1 capsule by mouth daily at 6 am. potassium chloride SR (MICRO-K) 10 mEq CR capsule Take 10 mEq by mouth. propranolol ER (INDERAL LA) 60 mg 24 hr capsule Take 1 capsule by mouth once daily. methylphenidate ER (CONCERTA) 18 mg biphasic tablet Take 1 tablet by mouth every morning for 30 days. acetaminophen (TYLENOL EXTRA STRENGTH) 500 mg tablet Take 2 tablets by mouth every 8 hours. ibuprofen (MOTRIN) 600 mg tablet Take 1 tablet by mouth every 6 hours as needed for pain. lidocaine visc 2% MAALOX 200-200-20 mg/5 mL oral liquid 1:2 (CPD) Swish and spit 5 mL by mouth oncedaily as needed. tenapanor (IBSRELA) 50 mg tablet Take 1 tablet (50 mg) by mouth two times a day. polyethylene glycol 3350 17 gram packet Take 1 Packet by mouth once daily. Dissolve dose in 4 - 8 ounces of liquid and take as directed. loratadine (CLARITIN) 10 mg tablet Take 10 mg by mouth once daily. MULTIVITAMIN ORAL Take 1 tablet by mouth once daily. No current facility-administered medications for this visit. REVIEW OF SYSTEMS: Pain Assessment: General: No weight loss, malaise or fevers. Neuro: Postive for narcolepsy, hx of epilepsy, Negative for Stroke-residual deficit Respiratory: No history of current cough or dyspnea, or pneumonia in the past 6 weeks. No history of respiratory/pulmonary symptoms or problems. Cardiovascular: Positive for: POTS, Negative for CAD, Chest Pain, CHF, HTN GI: See HPI : No history of dysuria, frequency or incontinence,, stones or chronic kidney disease LINING CUTTER: Negative for abnormal vaginal bleeding, abnormal vaginal discharge. : N/A, Patient's last menstrual period was 02/25/2024 (approximate). Endocrine: No history of diabetes. Has not taken steroids within the past 30 days. No history of endocrinological symptoms or problems. Hematology: No history of bleeding or clotting disorder. Pt is not taking anti- coagulation or platelet medications. No history of hematological symptoms or problems. Oncology: No history of CA metastasis, chemo within 30 days, or radiotherapy within 90 days. Has not lost 10% of body wt in 6 months. No history of oncological symptoms or problems. Psych: No history of psychiatric symptoms or problems. Musculoskeletal: Negative for joint pain or swelling, back pain or muscle pain. Skin: Negative for lesions, rash and itching. Objective PHYSICAL EXAM: Ht 5' 2 (1.58m) Wt 113 lb (51.3kg) LMP 02/25/2024 BMI 20.66 kg/(m^2). VIDEO EXAM: (if completed, performed via video enabled technology) GENERAL: alert and appropriate, in no distress, well-hydrated, well nourished, and happy, smiling, interactive SKIN: no rash noted HEAD: normocephalic, no abnormality or lesion noted EYES: no injection and visual acuity is grossly normal EARS: hearing grossly normal NOSE: external nose normal without rhinorrhea OROPHARYNX: moist mucus membranes NECK: full ROM, no cervical LNs noted RESPIRATORY: breathing non-labored CHEST: equal chest rise with normal respiratory effort HEART: heart rate and rhythm regular by patient report with palpation of carotid artery and vocalizing by counting aloud with heart beat Diagnostic tests reviewed for today's visit: Lab Value Units Date High Low HB 13.9 g/dL 03/04/2024 15.5 11.5 HCT 41.6 % 03/04/2024 46.0 36.0 WBC 6.25 k/uL 03/04/2024 11.00 3.70 PLT 187 k/uL 03/04/2024 400 150 NA 141 mmol/L 03/01/2024 144 136 K 4.2 mmol/L 03/01/2024 5.1 3.7 GLUC 91 mg/dL 03/01/2024 99 74 BUN 8 mg/dL 03/01/2024 21 7 CREAT 0.67 mg/dL 03/01/2024 0.96 0.58 PTSEC No results within date range. INR No results within date range. APTT No results within date range. ALT 16 U/L 02/01/2024 38 7 AST 21 U/L 02/01/2024 35 13 TBILI 0.3 mg/dL 02/01/2024 1.3 0.2 TSH 1.040 mIU/L 03/01/2024 4.200 0.270 Lab Value Units Date High Low HCGQT No results within date range. UHCG No results within date range. HCG, BODY* No results within date range. Lab Value Units Date High Low ABORHD No results within date range. ABSCREEN No results within date range. Hemoglobin A1C (%) Date Value 03/01/2024 4.9 09/20/2023 4.9 Most recent EKG: Recent Results (from the past 8760 hour(s)) ECG COMPLETE Collection Time: 09/24/23 6:10 PM Result Value Ventricular Rate 66 Atrial Rate 66 P-R Interval 176 QRS Duration 86 QT Interval 414 QTC Calculation (Bazett) 434 Calculated P [place] 57 Calculated R [place] 74 Calculated T [place] 54 Impression NORMAL SINUS RHYTHM WITH SINUS ARRHYTHMIA NORMAL ECG Confirmed by BRYAN LÓPEZ, CALDWELL ([id number]) on 10/06/2023 12:56:51 PM Impression/Recommendations ASSESSMENT: Epilepsy ([facility]) Assessment: hx of childhood epilepsy, reports last seizure over 6 years ago, had been cleared by neurology. No long taking any anti seizure medications. POTS (postural orthostatic tachycardia syndrome) Assessment: stable on propranolol. managed and monitored by neurology. Last visit 03/12/24. Denies recent new or worsening symptoms or syncope. Primary narcolepsy without cataplexy Assessment: stable with daily methylphenidate. Mild intermittent asthma without complication Assessment: denies hx of asthma. No current inhalers or treatments or respiratory symptoms. Stable. Gastroparesis Chronic superficial gastritis without bleeding Assessment: managed and monitored by GI, scheduled for EGD. GERD (gastroesophageal reflux disease) Assessment: treated with BID pepcid. PONV (postoperative nausea and vomiting) Assessment: requests premedication of zofran. Delayed emergence from anesthesia Assessment: hx of slow emergence, denies need for admission post- surgery unplanned in the past. METS: Run a short distance (8.00 METs) Patient denies any chest pain or undue shortness of breath with the above physical activity. ANESTHESIA FINDINGS: Intubation History: No history of difficult intubation Significant Anesthesia Considerations: Postop nausea/vomiting and Slow emergence. Requests premedication. Allergies versed and droperidol, percocet. Airway Exam: General: Normal appearance Mallampati Score is CLASS I ULBT: Class I - Lower incisors can bite the upper lip above the natasha line Neck: Normal appearance and function, Distance from hyoid to mentum during neck extension is at least 3 finger breaths Mouth: Normal tongue size and Mouth opening greater than 2 finger breaths Dentition: Intact Airway History: No abnormal airway history STOP BANG Score: Criteria: None Score = 0 PLAN: This patient is optimally prepared for surgery. CONSULTS: Patient does not require consults for optimization at this time. The Following Tests/Procedures Have Been Initiated: Labs not indicated per [facility] protocol, EKG not indicated per [facility] protocol Planned Anesthetic: Per anesthesia choice Instructions Given to Patient: Patient given verbal instructions and voices comprehension and compliance. Copy sent electronically via My Chart, email, or mobile device. This is a virtual visit. It required patient-provider interaction for the medical decision making as documented above. SIGNATURE: Tena Harris APRN.CNP PATIENT NAME: Mikayla Blunt DATE: March 24, 2024 TIME: 9:41 AM PAGER/CONTACT #: [facility] History and physical note* Tena Harris APRN.CNP - 03/24/2024 9:02 AM EDT This is a virtual visit using Virtual Visit (Audio/Visual)I have discussed the nature of this visit with the patient which will occur via [facility] (Phone, Virtual Visit) and she agrees to proceed with this interaction. It required patient-provider interaction for the medical decision making as documented below. I have communicated my name and active licensure. The patient's identity and physical location wereverified at the time of this visit. Either the patient or their legal scheduling representative has been informed of the risks and benefits of and alternatives to treatment through a remote evaluation and consents to proceed with the evaluation remotely. PREANESTHESIA CONSULT CLINIC TELEHEALTH VISIT Patient has been identified by name and date of : Yes This is a virtual visit using Lolayhart Zoom Video Visit. It require patient- provider interaction forthe medical decision making as documented below. Reason for contact: [facility] visit Accompanied by: Self Scheduled Surgery: EGD Subjective CHIEF COMPLAINT: Patient presents with: Anesthesia Consult HPI: This is a 23 year old female who presents for [facility] with diagnosis of gastroparesis scheduled for EGD, video capsule study reports ruling out crohn's or any underlying inflammatory bowel syndromes. Denies any new or worsening GI symptoms, chronic symptoms ongoing. Denies blood in stool. 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 History of Penicillin Allergy Urticaria Due to Drug Allergy Adverse Effect of Cephalosporins and Other Beta-Lactam Antibiotics, Initial Encounter Seasonal Allergic Rhinitis Due to Pollen Elevated Blood Pressure Reading Without Diagnosis of Hypertension Pre-Op Examination Gerd (Gastroesophageal Reflux Disease) Mild Intermittent Asthma Without Complication Pots (Postural Orthostatic Tachycardia Syndrome) Delayed Emergence From Anesthesia Epilepsy (Hcc) Cyst of Right Ovary Drug-Induced Constipation Chronic Superficial Gastritis Without Bleeding Gastroparesis Intractable Nausea and Vomiting Malnutrition of Moderate Degree (Hcc) Chronic Abdominal Pain Liver Hemangioma Ruq Abdominal Pain Nausea Vomiting and Diarrhea Malnutrition of Mild Degree (Hcc) Ponv (Postoperative Nausea and Vomiting) 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) off AEDs since 2017 GERD (gastroesophageal reflux disease) Hypertension 04/11/2020 Migraine without aura and without status migrainosus, not intractable 05/11/2020 Mild intermittent asthma without complication MT (mallet [...] TONSIL AND ADENOI UNDER AGE 12 02/12/2010 SALPINGECTOMY FAMILY HISTORY Problem Relation Age of Onset Graves Disease Mother Heart Mother SVT Allergies Father Asthma Brother Allergies Maternal Grandmother Hypertension Maternal Grandfather Allergies Maternal Grandfather Heart Maternal Grandfather mat side/pat side Breast Cancer Paternal Grandmother No Known Problems Paternal Grandfather Anesthesia Problems No Family History Social History Tobacco Use Smoking status: Never Passive exposure: Never Smokeless tobacco: Never Vaping Use Vaping status: Never Used Substance Use Topics Alcohol use: No Drug use: No ALLERGIES Allergen Reactions Cefdinir Swelling Hydrocodone-Acetami* Swelling Latex Swelling Penicillins Rash Benadryl [Diphenhyd* Mental Status Change agitation Droperidol Other: See Comments akathesia Compazine [Prochlor* Intolerance Restlessness, agitation Gluten GI Upset Versed [Midazolam H* Mental Status Change Pulling out IV's, extremely confused and restless, getting on hands and knees MEDICATIONS: Current Outpatient Medications Medication Sig famotidine (PEPCID) 20 mg tablet Take 1 tablet by mouth two times a day. gabapentin (NEURONTIN) 100 mg capsule Take 100mg twice a day and 300mg at bedtime. pyridostigmine (MESTINON) 60 mg tablet Take 1 tablet by mouth three times a day. linaCLOtide (LINZESS) 290 mcg capsule Take 1 capsule by mouth daily at 6 am. potassium chloride SR (MICRO-K) 10 mEq CR capsule Take 10 mEq by mouth. propranolol ER (INDERAL LA) 60 mg 24 hr capsule Take 1 capsule by mouth once daily. methylphenidate ER (CONCERTA) 18 mg biphasic tablet Take 1 tablet by mouth every morning for 30 days. acetaminophen (TYLENOL EXTRA STRENGTH) 500 mg tablet Take 2 tablets by mouth every 8 hours. ibuprofen (MOTRIN) 600 mg tablet Take 1 tablet by mouth every 6 hours as needed for pain. lidocaine visc 2% MAALOX 200-200-20 mg/5 mL oral liquid 1:2 (CPD) Swish and spit 5 mL by mouth oncedaily as needed. tenapanor (IBSRELA) 50 mg tablet Take 1 tablet (50 mg) by mouth two times a day. polyethylene glycol 3350 17 gram packet Take 1 Packet by mouth once daily. Dissolve dose in 4 - 8 ounces of liquid and take as directed. loratadine (CLARITIN) 10 mg tablet Take 10 mg by mouth once daily. MULTIVITAMIN ORAL Take 1 tablet by mouth once daily. No current facility-administered medications for this visit. REVIEW OF SYSTEMS: Pain Assessment: General: No weight loss, malaise or fevers. Neuro: Postive for narcolepsy, hx of epilepsy, Negative for Stroke-residual deficit Respiratory: No history of current cough or dyspnea, or pneumonia in the past 6 weeks. No history of respiratory/pulmonary symptoms or problems. Cardiovascular: Positive for: POTS, Negative for CAD, Chest Pain, CHF, HTN GI: See HPI : No history of dysuria, frequency or incontinence,, stones or chronic kidney disease LINING CUTTER: Negative for abnormal vaginal bleeding, abnormal vaginal discharge. : N/A, Patient's last menstrual period was 02/25/2024 (approximate). Endocrine: No history of diabetes. Has not taken steroids within the past 30 days. No history of endocrinological symptoms or problems. Hematology: No history of bleeding or clotting disorder. Pt is not taking anti- coagulation or platelet medications. No history of hematological symptoms or problems. Oncology: No history of CA metastasis, chemo within 30 days, or radiotherapy within 90 days. Has not lost 10% of body wt in 6 months. No history of oncological symptoms or problems. Psych: No history of psychiatric symptoms or problems. Musculoskeletal: Negative for joint pain or swelling, back pain or muscle pain. Skin: Negative for lesions, rash and itching. Objective PHYSICAL EXAM: Ht 5' 2 (1.58m) Wt 113 lb (51.3kg) LMP 02/25/2024 BMI 20.66 kg/(m^2). VIDEO EXAM: (if completed, performed via video enabled technology) GENERAL: alert and appropriate, in no distress, well-hydrated, well nourished, and happy, smiling, interactive SKIN: no rash noted HEAD: normocephalic, no abnormality or lesion noted EYES: no injection and visual acuity is grossly normal EARS: hearing grossly normal NOSE: external nose normal without rhinorrhea OROPHARYNX: moist mucus membranes NECK: full ROM, no cervical LNs noted RESPIRATORY: breathing non-labored CHEST: equal chest rise with normal respiratory effort HEART: heart rate and rhythm regular by patient report with palpation of carotid artery and vocalizing by counting aloud with heart beat Diagnostic tests reviewed for today's visit: Lab Value Units Date High Low HB 13.9 g/dL 03/04/2024 15.5 11.5 HCT 41.6 % 03/04/2024 46.0 36.0 WBC 6.25 k/uL 03/04/2024 11.00 3.70 PLT 187 k/uL 03/04/2024 400 150 NA 141 mmol/L 03/01/2024 144 136 K 4.2 mmol/L 03/01/2024 5.1 3.7 GLUC 91 mg/dL 03/01/2024 99 74 BUN 8 mg/dL 03/01/2024 21 7 CREAT 0.67 mg/dL 03/01/2024 0.96 0.58 PTSEC No results within date range. INR No results within date range. APTT No results within date range. ALT 16 U/L 02/01/2024 38 7 AST 21 U/L 02/01/2024 35 13 TBILI 0.3 mg/dL 02/01/2024 1.3 0.2 TSH 1.040 mIU/L 03/01/2024 4.200 0.270 Lab Value Units Date High Low HCGQT No results within date range. UHCG No results within date range. HCG, BODY* No results within date range. Lab Value Units Date High Low ABORHD No results within date range. ABSCREEN No results within date range. Hemoglobin A1C (%) Date Value 03/01/2024 4.9 09/20/2023 4.9 Most recent EKG: Recent Results (from the past 8760 hour(s)) ECG COMPLETE Collection Time: 09/24/23 6:10 PM Result Value Ventricular Rate 66 Atrial Rate 66 P-R Interval 176 QRS Duration 86 QT Interval 414 QTC Calculation (Bazett) 434 Calculated P [place] 57 Calculated R [place] 74 Calculated T [place] 54 Impression NORMAL SINUS RHYTHM WITH SINUS ARRHYTHMIA NORMAL ECG Confirmed by BRYAN LÓPEZ, KELLY ([id number]) on 10/06/2023 12:56:51 PM Impression/Recommendations ASSESSMENT: Epilepsy (HCC) Assessment: hx of childhood epilepsy, reports last seizure over 6 years ago, had been cleared by neurology. No long taking any anti seizure medications. POTS (postural orthostatic tachycardia syndrome) Assessment: stable on propranolol. managed and monitored by neurology. Last visit 03/12/24. Denies recent new or worsening symptoms or syncope. Primary narcolepsy without cataplexy Assessment: stable with daily methylphenidate. Mild intermittent asthma without complication Assessment: denies hx of asthma. No current inhalers or treatments or respiratory symptoms. Stable. Gastroparesis Chronic superficial gastritis without bleeding Assessment: managed and monitored by GI, scheduled for EGD. GERD (gastroesophageal reflux disease) Assessment: treated with BID pepcid. PONV (postoperative nausea and vomiting) Assessment: requests premedication of zofran. Delayed emergence from anesthesia Assessment: hx of slow emergence, denies need for admission post- surgery unplanned in the past. METS: Run a short distance (8.00 METs) Patient denies any chest pain or undue shortness of breath with the above physical activity. ANESTHESIA FINDINGS: Intubation History: No history of difficult intubation Significant Anesthesia Considerations: Postop nausea/vomiting and Slow emergence. Requests premedication. Allergies versed and droperidol, percocet. Airway Exam: General: Normal appearance Mallampati Score is CLASS I ULBT: Class I - Lower incisors can bite the upper lip above the natasha line Neck: Normal appearance and function, Distance from hyoid to mentum during neck extension is at least 3 finger breaths Mouth: Normal tongue size and Mouth opening greater than 2 finger breaths Dentition: Intact Airway History: No abnormal airway history STOP BANG Score: Criteria: None Score = 0 PLAN: This patient is optimally prepared for surgery. CONSULTS: Patient does not require consults for optimization at this time. The Following Tests/Procedures Have Been Initiated: Labs not indicated per P[facility] protocol, EKG not indicated per [facility] protocol Planned Anesthetic: Per anesthesia choice Instructions Given to Patient: Patient given verbal instructions and voices comprehension and compliance. Copy sent electronically via My Chart, email, or mobile device. This is a virtual visit. It required patient-provider interaction for the medical decision making as documented above. SIGNATURE: Tena Harris APRN.CNP PATIENT NAME: Mikayla Blunt DATE: March 24, 2024 TIME: 9:41 AM PAGER/CONTACT #: documented in this encounterMartin [facility] Hospital09-16-2024 History of Present illness Narrative* May Frias APRN.CNP - 03/22/2024 4:00 PM EDT Images from the original note were not included. [facility] [place] Department of Benign Gynecology [facility] PATIENT NAME: Mikayla Blunt PCP: Carly Callejas MD DATE: 03/22/2024 Chief Complaint CC: Post op hysteroscopy visit History of Present Illness: Patient Name and verified: Yes Patient Location: [place] This Virtual Visit was completed using My Chart Zoom platform. I have communicated my name and active licensure. The patient's identity and physical location wereverified at the time of this visit. Either the patient or their legal scheduling representative has been informed of the risks and benefits of -- and alternatives to -- treatment through a remote evaluation andconsents to proceed with the evaluation remotely. PROBLEM: Mikayla Blunt presents for postop virtual visit. SURGERY & DATE: Laparoscopic bilateral salpingectomy on 03/09/24 indicated for sterilization. PATHOLOGY: FINAL DIAGNOSIS A. Right fallopian tube, resection: - Benign paratubal cysts. B. Left fallopian tube, resection: - Hydrosalpinx and benign paratubal cysts. SUBJECTIVE/INTERVAL HISTORY: Mikayla Blunt reports that she feels well. No fever or chills. No shortness of breath, cough, or chest pain. No abdominal pain, nausea, vomiting, diarrhea, or constipation. No dysuria, gross hematuria, urinary frequency, urinary urgency, or incontinence. Her ECOG performance status is 1 (restricted in physically strenuous activity but ambulatory and able to carry outwork of a light or sedentary nature). She is doing well One of her incisions opened up and was bleeding OBJECTIVE: VITALS: Deferred for virtual visit GENERAL: She is alert, oriented, pleasant, and cooperative. ASSESSMENT: Encounter Diagnosis ICD-10-CM 1. S/P laparoscopy Z98.890 PLAN: 1. Discussed results of pathology and implications with patient. 2. Postop restrictions and wound care reviewed. 3. Follow up as scheduled Appointments for Next 60 Days Date Time Provider Location Dept Phone 03/22/2024 4:00 PM MAY FRIAS [facility] [phone] 03/24/2024 9:00 AM [facility] [phone] 04/05/2024 12:30 PM LACHERELLEON [facility] [phone] 04/08/2024 7:30 AM DUSTIN TAMAYO [facility] [phone] 04/09/2024 8:30 AM DUSTIN TAMAYO [place] [phone] 04/09/2024 8:30 AM SP [facility] [place] [phone] May Frias APRN.CNP This is a virtual visit. It required patient-provider interaction for the medical decision making as documented below. The patient verbally consented to a Virtual Visit with telephone back up as necessary. Medical Decision Making: Problems: Low: Stable chronic illness Data: Unique test result(s) reviewed: 1 Medical Decision Making Level: 2 - Straightforward documented in this encounterMartin [facility] Hospital09-16-2024 Telephone encounter Note * Telephone Encounter - Ros Biggs - 03/22/2024 10:10 AM EDT This form is used for MAIN CAMPUS APPOINTMENTS ONLY. Is this request for a [facility] [place] PET scan appointment? Yes: Conduit Helper: Ros Biggs Requesting Person (Last Name, First Name): patient Area Code + Phone/Pager: [phone] Who do we call to schedule this appointment? Patient Requesting Staff Bernie Martines, Area Code + Phone/Pager: N/A PET Orders (A delay in scheduling will result if the orders are not present at time of review): Internal ADDITIONAL ACTION MAY BE REQUIRED IF PATIENTS OON INSURANCE OR SELF PAY COVERAGE HAS NOT BEEN CLEARED FOR REQUESTED APPOINTMENT. Scheduling: JAYDEN: As soon as insurance will allow What account will this PET appointment be linked to? P/F Type of PET: Oncology: Are there additional diagnostic CT scans required to be done at time of PET scan? No Is the request for a PET MR ? No What account will diagnostic testing appointment be linked to? P/F Will the patient need anesthesia? NO Send requests to P [facility] REVIEW [facility]09-[facility] History of Present illness Narrative* May Frias APRN.CORRECTIONAL PROBATION OFFICER - 03/17/2024 11:30 AM EDT Images from the original note were not included. [facility] [place] SECTION FOR MINIMALLY INVASIVE GYNECOLOGIC SURGERY OUTPATIENT VISIT DATE 03/17/2024 OUTPATIENT VISIT TYPE POST OPERATIVE FOLLOW UP History: Mikayla Blunt is a 23 year old female here for post operative follow up appointment. She underwent Laparoscopic bilateral salpingectomy on 03/09/24 indicated fotr sterilization. She reports feeling okay since her procedure. Her appetite is good and normal . She describes her pain as no pain presently. She is currently taking nothing for pain control. She has not had sexual intercourse since the procedure. Denies nausea/vomiting/chest pain/shortness of breath. Ambulating well. No issues with voiding but she is having diarrhea 2-3 times per day. Has gastroparesis She started noticing sweats by POD 3, has had temps of 100.1 after tylenol and motrin but has not taken her temp prior to the medications. Yesterday temp was 99 She noticed her belly button had some blood coming from it and it was dried blood Operative findings included: FINDINGS Anterior cul-de-sac- normal Posterior cul-de-sac- normal Left ovarian fossa- normal Right ovarian fossa- normal Uterosacral ligaments- normal Uterus- 6 week size, anteverted, normal fallopian tubes- normal in appearance Ovaries- Right ovary 3 cm; Left ovary 3 cm; normal in appearance Bowel and Appendix- normal appearing Diaphragmatic peritoneum- normal appearing The pathology report reveals: FINAL DIAGNOSIS A. Right fallopian tube, resection: - Benign paratubal cysts. B. Left fallopian tube, resection: - Hydrosalpinx and benign paratubal cysts. ROS: Constitutional: Denies fever or chills GI: Denies abdominal pain, nausea, vomiting, bloody stools or diarrhea : Denies dysuria Integument: Denies rash Psychiatric: Denies depression or anxiety Exam: Vitals: 03/17/24 1120 BP: 120/75 Pulse: 74 Weight: 51.2 kg (112 lb 14 oz) Height: 157.5 cm (5' 2) Height: 157.5 cm (5' 2) (03/04/2024 12:56 PM) There is no height or weight on file to calculate BMI. Neuro/psych: Alert and oriented x 3 in a pleasant mood Skin: Warm, dry and intact Abdomen: Soft, non tender, non distended, no hepatosplenomegaly or hernias. Incision: incisions well healed Pelvic: deferred Assessment: Encounter Diagnosis ICD-10-CM 1. Post-operative state Z98.890 Ms. Mikayla Blunt is a 23 year old female presenting for postop check status post lap salpingectomy. She had umbilical bleeding without evidence of infection. She is otherwise doing well. Plan: -May continue to increase physical activity as tolerated -May resume intercourse -Refrain from heavy lifting for 4 weeks postop -Follow up with general provider for annual care -All questions answered and pt agrees with plan documented in this encounterMartin Memorial Hospital09-10-2024 Telephone encounter Note * Telephone Encounter - Winnie Kam RN - 03/16/2024 4:48 PM EDT Called patient and verified name and . This RN shared message from Derrick Frias APRN. CNP with patient. Patient verbalized understanding. Patient is able to come in tomorrow to see Derrick Frias APRN. CNP at 11:30 am. Winnie Kam RN March 16, 2024 4:49 PM [facility]09-[facility] Miscellaneous Notes* Telephone Encounter - Winnie Kam RN - 03/16/2024 4:48 PM EDT Called patient and verified name and . This RN shared message from Derrick Frias APRN. CNP with patient. Patient verbalized understanding. Patient is able to come in tomorrow to see Derrick Frias APRN. CNP at 11:30 am. Winnie Kam RN March 16, 2024 4:49 PM * Telephone Encounter - Katarzyna Zendejas - 03/16/2024 4:40 PM EDT This is difficult to assess d/t the blood in it. Can you ask her to take Motrin or Tylenol for painand come see me tomorrow in the office? I have 3p and 330 openings and 11:30. May Frias APRN.CNP Attempted to reach patient with above message. Left message on generic VM requesting return call, also advised that LEAD JAVA DEVELOPER ARCHITECT would like to see her tomorrow and please call office back to schedule in one ofher openings. Contact information provided. * Telephone Encounter - May Frias APRN.CNP - 03/16/2024 4:34 PM EDT This is difficult to assess d/t the blood in it. Can you ask her to take Motrin or Tylenol for painand come see me tomorrow in the office? I have 3p and 330 openings and 11:30. May Frias APRN.CNP * Telephone Encounter - Winnie Kam RN - 03/16/2024 3:56 PM EDT Called patient and verified name and . Patient explained that she had some concerns about her incision site and she had on and off fevers. Patient states her surgery was on Mar 09; Laparoscopic bilateral salpingectomy with Dr. Teixeira. Patient reports she has been taking tylenol around the clock for about 4-5 after her surgery. Patient has not taken tylenol or motrin today. Patient report she been having temps anywhere from 99.4-100.1 while taking tylenol Patient reports she had blood oozing from her belly button incision about a 1/4 blood on a 2x2 gauze immediately post-op. Had drainage and changed the dressing next day. Belly is now opened to air, slightly reddened. Patient denies warmth. Patient reports drainage has slowed down today. Patient uses antibacterial soap. No pus, some itching. Patient denies increased belly pain. Patient states right side is healed; steri strips off. Left side, 1/2 steri strips off, slightly itching Patient was advised to go to the ER if fever is greater than 100.4 when taking tylenol or motrin, if incision becomes reddened with warm touch, swollen or filled with pus. Patient verbalized understanding. Patient uploaded incision photo under scanned documents today at 4:12 pm Please advise. Winnie Kam RN March 16, 2024 4:25 PM * Telephone Encounter - Tena Krause - 03/16/2024 9:25 AM EDT Patient: Mikayla Blunt : 2000 Provider: Abi Teixeira DO Caller Phone #: [phone] (home) [phone] (cell) Reason for Call: Patient calling stating she is having incision site issues and on and off low grade fevers. Message routed to nurse triage Date of next visit: Appointments for Next 60 Days Date Time Provider Location Dept Phone 03/22/2024 4:00 PM MAY FRIAS [facility] [phone] 03/24/2024 9:00 AM [facility] [phone] 04/05/2024 12:30 PM [facility] [phone] 04/08/2024 7:30 AM TAMAYODUSTIN Narayanan [facility] [phone] 04/09/2024 8:30 AM TAMAYODUSTIN [place] [phone] 04/09/2024 8:30 AM SP END[facility]04 [facility] [phone] HANNA: 03/11/2024 documented in this encounterMartin [facility] Hospital09-10-2024 Telephone encounter Note * Telephone Encounter - Katarzyna Zendejas - 03/16/2024 4:40 PM EDT This is difficult to assess d/t the blood in it. Can you ask her to take Motrin or Tylenol for painand come see me tomorrow in the office? I have 3p and 330 openings and 11:30. May Frias APRN.NEERU Attempted to reach patient with above message. Left message on generic VM requesting return call, also advised that LEAD JAVA DEVELOPER ARCHITECT would like to see her tomorrow and please call office back to schedule in one ofher openings. Contact information provided. [facility]09-[facility] Telephone encounter Note* Telephone Encounter - May Frias APRN.CNP - 03/16/2024 4:34 PM EDT This is difficult to assess d/t the blood in it. Can you ask her to take Motrin or Tylenol for painand come see me tomorrow in the office? I have 3p and 330 openings and 11:30. May Frias APRN.CORRECTIONAL PROBATION OFFICER [facility] Work Phone: [phone]) 751-715009-10-2024 Telephone encounter Note* Telephone Encounter - Winnie Kam RN - 03/16/2024 3:56 PM EDT Called patient and verified name and . Patient explained that she had some concerns about her incision site and she had on and off fevers. Patient states her surgery was on Mar 09; Laparoscopic bilateral salpingectomy with Dr. Teixeira. Patient reports she has been taking tylenol around the clock for about 4-5 after her surgery. Patient has not taken tylenol or motrin today. Patient report she been having temps anywhere from 99.4-100.1 while taking tylenol Patient reports she had blood oozing from her belly button incision about a 1/4 blood on a 2x2 gauze immediately post-op. Had drainage and changed the dressing next day. Belly is now opened to air, slightly reddened. Patient denies warmth. Patient reports drainage has slowed down today. Patient uses antibacterial soap. No pus, some itching. Patient denies increased belly pain. Patient states right side is healed; steri strips off. Left side, 1/2 steri strips off, slightly itching Patient was advised to go to the ER if fever is greater than 100.4 when taking tylenol or motrin, if incision becomes reddened with warm touch, swollen or filled with pus. Patient verbalized understanding. Patient uploaded incision photo under scanned documents today at 4:12 pm Please advise. Winnie Kam RN March 16, 2024 4:25 PM [facility] Telephone encounter Note* Telephone Encounter - Tena Krause - 03/16/2024 9:25 AM EDT Patient: Mikayla Blunt : 2000 Provider: Abi Teixeira DO Caller Phone #: [phone] (home) [phone] (cell) Reason for Call: Patient calling stating she is having incision site issues and on and off low grade fevers. Message routed to nurse triage Date of next visit: Appointments for Next 60 Days Date Time Provider Location Dept Phone 03/22/2024 4:00 PM [facility] FRIAS [facility] [phone] 03/24/2024 9:00 AM [facility] [phone] 04/05/2024 12:30 PM [facility] [place] [facility] [phone] 04/08/2024 7:30 AM DUSTIN TAMAYO [facility] [phone] 04/09/2024 8:30 AM [facility] [phone] 04/09/2024 8:30 AM [facility] [phone] HANNA: 03/11/2024 [facility] Telephone encounter Note* Telephone Encounter - Tena Krause - 03/15/2024 4:15 PM EDT Scanned and faxed [facility] Miscellaneous Notes* Telephone Encounter - Tena Krause - 03/15/2024 4:15 PM EDT Scanned and faxed * Telephone Encounter - Ines Moura MA - 03/11/2024 5:53 PM EDT Paperwork was printed and filled out. Walked over to admin for review and signature of provider. Ines Moura MA March 11, 2024 5:53 PM * Telephone Encounter - Tena Krause - 03/11/2024 1:45 PM EDT Patient has been identified by name and date of : YES Provider: Abi Teixeira DO Type of form: FMLA Form received via: FAX When form is completed FAX and Cards Offhart copy to pt Form has been forwarded to: NURSING Forms can take up to 14 business days for completion. documented in this encounterMartin [facility] Hospital2024 Telephone encounter Note * Telephone Encounter - Bertha Sanders RN - 03/12/2024 1:34 PM EDT See other telephone encounter from today. RN spoke to pt. Bertha Sanders RN March 12, 2024 1:34 PM [facility]20[facility] Miscellaneous Notes* Telephone Encounter - Bertha Sanders RN - 03/12/2024 1:34 PM EDT See other telephone encounter from today. RN spoke to pt. Bertha Sanders RN March 12, 2024 1:34 PM * Telephone Encounter - Sonia Walker RN - 03/12/2024 10:59 AM EDT Post-op nurse made aware that pt has called back. RN will follow up with pt to assess how they are doing after surgery. Sonia Walker RN March 12, 2024 11:00 AM * Telephone Encounter - Haylie Capellan - 03/12/2024 10:37 AM EDT Patient: Mikayla Blunt : 2000 Provider: Abi Teixeira DO Caller Phone #: [phone] (home) [phone] (cell) Reason for call: pt retuning call. Please call back Message routed to nurse triage Date of next visit: Appointments for Next 60 Days Date Time Provider Location Dept Phone 03/12/2024 12:00 PM ZORAN JULIO [facility] [phone] 03/22/2024 4:00 PM [facility] FRIAS [facility] [phone] [facility] [phone] 04/05/2024 12:30 PM [facility] [phone] 04/08/2024 7:30 AM DUSTIN TAMAYO [place] [phone] 04/09/2024 8:30 AM DUSTIN TAMAYO [place] [phone] 04/09/2024 8:30 AM SP [facility] [place] [phone] HANNA: 03/04/2024 * Telephone Encounter - Tatyana Clark RN - 03/12/2024 10:06 AM EDT Images from the original note were not included. [facility] SECTION FOR MINIMALLY INVASIVE GYNECOLOGIC SURGERY AND CHRONIC PELVIC PAIN Postop call Left Voice message POD# [address] Teixeira. Procedure: (from op note) Laparoscopic bilateral salpingectomy documented in [facility]24 History of Present illness Narrative* Zoran Julio APRN.CORRECTIONAL PROBATION OFFICER - 03/12/2024 11:48 AM EDT Mikayla Blunt is a 23 year old female. Patient presents with: Follow Up Today I had the opportunity to have a virtual visit with Mikayla Blunt I have communicated my name and active licensure. The patient's identity and physical location wereverified at the time of this visit. Either the patient or their legal scheduling representative has been informed of the risks and benefits of -- and alternatives to -- treatment through a remote evaluation andconsents to proceed with the evaluation remotely. Impression/plan from our last visit on 09/01/2023: POTS No complaint at this time from a POTS perspective. She notes propranolol 60 mg ER once daily has controlled her tachycardia and also reduced her headaches significantly. She was recently found to have gastroparesis. She had blood work drawn this morning looking for an etiology. She is followed at an OSH for this. She asks if her POTS is causing the gastroparesis. Her neurologic exam was normal. Orthostatic vital signs normal. I do not suspect a neurologic cause of her gastroparesis. Follow up 1 year Conservative Measures Increased water intake (2-2.5 liters of water daily) Increased salt intake (3-5 grams daily) Compression stockings Cardiac Rehab/Exercise Shared medical appointment with Dr. Murray Medication Changes -refill provided for propranolol 60 mg ER once daily Mikayla has been hospitalized twice since our last visit for abdominal pain, nausea, and vomiting. She completed a NM gastric emptying study on February 03, 2024 that was indicative of severe gastroparesis. Mikayla did establish with Dr. Tamayo in GI due to her diagnosis of gastroparesis. Extensive lab work ordered. Plan for EGD in the next few weeks. She was placed on pyridostigmine 60 mg three times daily. She does report a reduction in nausea since starting pyridostigmine. She has only vomited once. She reports having a bowel movement daily since starting pyridostigmine. Prior to pyridostigmine, she would have a bowel movement 3 times per week at most. Her oral intake is primarily liquid based. She is eating macaroni cheese, rice, apple sauce, jello,ice cream. Negative skin nerve biopsy previously in December 2020. She was started on gabapentin due to sharp/shooting abdominal pain. The abdominal pain was in the upper abdomen (mid to right). The pain does not extend from the mid-back or spine. The gabapentin hashelped reduce the pain. NM Gastric Emptying Study 02/03/2024: RESULTS: Calculated solid meal (or solid meal equivalent) gastric retention values: * 95% retention at 1 hour (normal range, 37-90%; accelerated emptying is defined as <30% at 1 hour) * 92% retention at 2 hours (normal range, <60%) * 81% retention at 4 hours (normal range, <10%) Medications Reviewed acetaminophen (TYLENOL EXTRA STRENGTH) 500 mg tablet Take 2 tablets by mouth every 8 hours. ibuprofen (MOTRIN) 600 mg tablet Take 1 tablet by mouth every 6 hours as needed for pain. famotidine (PEPCID) 20 mg tablet Take 1 tablet by mouth two times a day. gabapentin (NEURONTIN) 100 mg capsule Take 100mg twice a day and 300mg at bedtime. lidocaine visc 2% MAALOX 200-200-20 mg/5 mL oral liquid 1:2 (CPD) Swish and spit 5 mL by mouth oncedaily as needed. pyridostigmine (MESTINON) 60 mg tablet Take 1 tablet by mouth three times a day. tenapanor (IBSRELA) 50 mg tablet Take 1 tablet (50 mg) by mouth two times a day. linaCLOtide (LINZESS) 290 mcg capsule Take 1 capsule by mouth daily at 6 am. potassium chloride SR (MICRO-K) 10 mEq CR capsule Take 10 mEq by mouth. polyethylene glycol 3350 17 gram packet Take 1 Packet by mouth once daily. Dissolve dose in 4 - 8 ounces of liquid and take as directed. propranolol ER (INDERAL LA) 60 mg 24 hr capsule Take 1 capsule by mouth once daily. methylphenidate ER (CONCERTA) 18 mg biphasic tablet Take 1 tablet by mouth every morning for 30 days. loratadine (CLARITIN) 10 mg tablet Take 10 mg by mouth once daily. MULTIVITAMIN ORAL Take 1 tablet by mouth once daily. 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 History of Penicillin Allergy Urticaria Due to Drug Allergy Adverse Effect of Cephalosporins and Other Beta-Lactam Antibiotics, Initial Encounter Seasonal Allergic Rhinitis Due to Pollen Elevated Blood Pressure Reading Without Diagnosis of Hypertension Pre-Op Examination Gerd (Gastroesophageal Reflux Disease) Mild Intermittent Asthma Without Complication Pots (Postural Orthostatic Tachycardia Syndrome) Delayed Emergence From Anesthesia Epilepsy (Hcc) Cyst of Right Ovary Drug-Induced Constipation Chronic Superficial Gastritis Without Bleeding Gastroparesis Intractable Nausea and Vomiting Malnutrition of Moderate Degree (Hcc) Chronic Abdominal Pain Liver Hemangioma Ruq Abdominal Pain Nausea Vomiting and Diarrhea Malnutrition of Mild Degree (Hcc) Ponv (Postoperative Nausea and Vomiting) PAST SURGICAL HISTORY 2011: DENTAL SURGERY HX Comment: Simple extraction of primary teeth #A, #B, #C, #H, #I, #J, #M, #N, and #R. 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; Right Comment: [facility] 11/21/2003: PAST SURGICAL HISTORY OF Comment: tear duct surgery bilateral 05/2022: PAST SURGICAL HISTORY OF Comment: Correction of second, third, and fourth toes, left foot 02/12/2010: REMOVE TONSIL AND ADENOI UNDER AGE 14 Social History Tobacco Use Smoking status: Never Passive exposure: Never Smokeless tobacco: Never Vaping Use Vaping status: Never Used Substance Use Topics Alcohol use: No Drug use: No family history includes Allergies in her father, maternal grandfather, and maternal grandmother; Asthma in her brother; Breast Cancer in her paternal grandmother; Graves Disease in her mother; Heart in her maternal grandfather and mother; Hypertension in her maternal grandfather; No Known Problems in her paternal grandfather. IMPRESSION/PLAN: POTS; gastroparesis Recent gastric emptying study showing severe gastroparesis. Evaluated by Dr. Dustin Tamayo in GI. Extensive lab work looking for a potential autoimmune etiology has been unrevealing. She was started on pyridostigmine 60 mg TID and feels less nausea/vomiting and reports increased bowel movement frequency. We reviewed obtaining a QSART, but she does not wish to hold medications at this time. I will review her case with Dr. Murray, but do not suspect her gastroparesis is neurologic in nature. No changes to current treatment plan. I spent a total of 20 minutes on the date of the service which included preparing to see the patient, [id number] patient care, completing clinical documentation, obtaining and/or reviewing separately obtained history, and counseling and educating the patient/family/caregiver. 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 History of Penicillin Allergy Urticaria Due to Drug Allergy Adverse Effect of Cephalosporins and Other Beta-Lactam Antibiotics, Initial Encounter Seasonal Allergic Rhinitis Due to Pollen Elevated Blood Pressure Reading Without Diagnosis of Hypertension Pre-Op Examination Gerd (Gastroesophageal Reflux Disease) Mild Intermittent Asthma Without Complication Pots (Postural Orthostatic Tachycardia Syndrome) Delayed Emergence From Anesthesia Epilepsy (Hcc) Cyst of Right Ovary Drug-Induced Constipation Chronic Superficial Gastritis Without Bleeding Gastroparesis Intractable Nausea and Vomiting Malnutrition of Moderate Degree (Hcc) Chronic Abdominal Pain Liver Hemangioma Ruq Abdominal Pain Nausea Vomiting and Diarrhea Malnutrition of Mild Degree (Hcc) Ponv (Postoperative Nausea and Vomiting) No orders found for this visit on 03/12/24. Zoran Julio MSN, CATALYST UNIT OPERATOR, CHILD CARE DEVELOPMENT SPECIALIST-C Answers submitted by the patient for this visit: Compass 31 (Submitted on 03/11/2024) In the past year, have you ever felt faint, dizzy, goofy, or had difficulty thinking soon after standing up from a sitting or lying position?: Yes In the past year, have you ever noticed color changes in your skin, such as red, white, or purple?:No In the past 5 years, what changes, if any, have occurred in your general body sweating?: I sweat somewhat more than I used to Do your eyes feel excessively dry? : No Does your mouth feel excessively dry? : No For the symptom of dry eyes or dry mouth that you have had for the longest period of time, is this symptom:: Staying about the same In the past year, have you noticed any changes in how quickly you get full when eating a meal?: I get full a lot more quickly now than I used to In the past year, have you felt excessively full or persistently full (bloated feeling) after a meal?: Sometimes In the past year, have you vomited after a meal? : A lot of the time In the past year, have you had a cramping or colicky abdominal pain?: Sometimes In the past year, have you had any bouts of diarrhea?: Yes In the past year, have you been constipated? : Yes In the past year, have you ever lost control of your bladder function?: Never In the past year, have you had difficulty passing urine?: Never In the past year, have you had trouble completely emptying your bladder?: Never In the past year, without sunglasses or tinted glasses, has bright light bothered your eyes?: Occasionally In the past year, have you had trouble focusing your eyes?: Never Is this most troublesome symptom with your eyes (i.e. sensitivity to bright light or trouble focusing) getting:: Getting somewhat better (Submitted on 03/11/2024) When standing up, how frequently do you get these feelings or symptoms?: Occasionally How would you rate the severity of these feelings or symptoms?: Mild In the past year, have these feelings or symptoms that you have experienced:: Stayed about the same (Submitted on 03/11/2024) How frequently does this occur?: Rarely How severe are these bouts of diarrhea?: Mild Are your bouts with diarrhea getting:: Staying the same (Submitted on 03/11/2024) How frequently are you constipated? : Frequently How severe are these episodes of constipation? : Moderate Is your constipation getting:: Staying the same (Submitted on 03/11/2024) How severe is this sensitivity to bright light?: Mild documented in [facility]2024 Telephone encounter Note * Telephone Encounter - Tatyana Clark RN - 03/12/2024 11:11 AM EDT Images from the original note were not included. [facility] SECTION FOR MINIMALLY INVASIVE GYNECOLOGIC SURGERY AND CHRONIC PELVIC PAIN Postop call Patient Name and Verified POD# [address] Teixeira. Procedure: (from op note) Laparoscopic bilateral salpingectomy Reassured regarding typical pain and recovery following laparoscopic surgery. Reviewed pain medication use for optimal postoperative pain control. Reminded to ambulate every 2 hours while awake Reminded of normal return of bowel function, management of constipation. Reminded contact numbers are listed in their postop instructions After hours fellow instrument and controls technician [phone] Office number [phone] (M-F, 8-4:30) Patient advised to call 911 or report to ED Fever (temperature greater than 100.4 degrees) Pain that is worsening or not relieved by pain medications. Nausea, vomiting or diarrhea that is not improving Blood, pus, or opening of incision(s) Heavy vaginal bleeding (more than a period) Shortness of breath Swollen or tender lower leg Lightheadedness, dizziness, or fainting Patient expressed understanding. Post op appointment: Future appointments: Future Appointments Date Time Provider Department Center 03/12/2024 12:00 PM Zoran Julio APRN.CORRECTIONAL PROBATION OFFICER [facility] 03/22/2024 4:00 PM May Frias APRN.CORRECTIONAL PROBATION OFFICER [facility] 03/24/2024 9:00 AM [facility] 04/05/2024 12:30 PM [facility] 04/08/2024 7:30 AM [facility] 8:30 AM [facility]/26/[facility]24 10:00 AM Bernie Martines MD [facility] 07/28/2024 1:20 PM Alan Cortés MD [facility] Patient questions/concerns: [facility] Miscellaneous Notes* Telephone Encounter - Tatyana Clark RN - 03/12/2024 11:11 AM EDT Images from the original note were not included. [facility] SECTION FOR MINIMALLY INVASIVE GYNECOLOGIC SURGERY AND CHRONIC PELVIC PAIN Postop call Patient Name and Verified POD# [address] Teixeira. Procedure: (from op note) Laparoscopic bilateral salpingectomy Reassured regarding typical pain and recovery following laparoscopic surgery. Reviewed pain medication use for optimal postoperative pain control. Reminded to ambulate every 2 hours while awake Reminded of normal return of bowel function, management of constipation. Reminded contact numbers are listed in their postop instructions After hours fellow instrument and controls technician [phone] Office number [phone] (M-F, 8-4:30) Patient advised to call 911 or report to ED Fever (temperature greater than 100.4 degrees) Pain that is worsening or not relieved by pain medications. Nausea, vomiting or diarrhea that is not improving Blood, pus, or opening of incision(s) Heavy vaginal bleeding (more than a period) Shortness of breath Swollen or tender lower leg Lightheadedness, dizziness, or fainting Patient expressed understanding. Post op appointment: Future appointments: Future Appointments Date Time Provider Department Center 03/12/2024 12:00 PM Zoran Julio APRN.CORRECTIONAL PROBATION OFFICER [facility] 03/22/2024 4:00 PM May Frias APRN.CORRECTIONAL PROBATION OFFICER [facility] 03/24/2024 9:00 AM [facility] 04/05/2024 12:30 PM Nurys Tovar MD [facility] 04/08/2024 7:30 AM Dustin Tamayo DO [facility] 04/09/2024 8:30 AM Dustin Tamayo DO [facility] 05/26/2024 10:00 AM Bernie Martines MD [facility] 07/28/2024 1:20 PM Alan Cortés MD [facility] Patient questions/concerns: documented in [facility]Martin [facility]2024 Telephone encounter Note * Telephone Encounter - Sonia Walker RN - 03/12/2024 10:59 AM EDT Post-op nurse made aware that pt has called back. RN will follow up with pt to assess how they are doing after surgery. Sonia Walker RN March 12, 2024 11:00 AM [place] [phone] Telephone encounter Note* Telephone Encounter - Haylie Capellan - 03/12/2024 10:37 AM EDT Patient: Mikayla Blunt : 2000 Provider: Abi Teixeira DO Caller Phone #: [phone] (home) [phone] (cell) Reason for call: pt retuning call. Please call back Message routed to nurse triage Date of next visit: Appointments for Next 60 Days Date Time Provider Location Dept Phone 03/12/2024 12:00 PM ZORAN JULIO [facility] [phone] 03/22/2024 4:00 PM MAY FRIAS [facility] [phone] 03/24/2024 9:00 AM P[facility] [phone] 04/05/2024 12:30 PM NURYS [facility] [phone] 04/08/2024 7:30 AM DUSTIN TAMAYO [place] [phone] 04/09/2024 8:30 AM [facility]IN TAM[facility] [phone] 04/09/2024 8:30 AM SP [facility] [phone] HANNA: 03/04/2024 [facility] Telephone encounter Note* Telephone Encounter - Tatyana Clark RN - 03/12/2024 10:06 AM EDT Images from the original note were not included. [facility] SECTION FOR MINIMALLY INVASIVE GYNECOLOGIC SURGERY AND CHRONIC PELVIC PAIN Postop call Left Voice message POD# [address] Teixeira. Procedure: (from op note) Laparoscopic bilateral salpingectomy [facility] Telephone encounter Note* Telephone Encounter - Ines Moura MA - 03/11/2024 5:53 PM EDT Paperwork was printed and filled out. Walked over to admin for review and signature of provider. Ines Moura MA March 11, 2024 5:53 PM [facility] Telephone encounter Note* Telephone Encounter - Tena Krause - 03/11/2024 1:45 PM EDT Patient has been identified by name and date of : YES Provider: Abi Teixeira DO Type of form: FMLA Form received via: FAX When form is completed FAX and [email or web address] copy to pt Form has been forwarded to: NURSING Forms can take up to 14 business days for completion. [facility] History of Present illness Narrative* Dustin Tamayo DO - 03/04/2024 5:07 PM EDT Images from the original note were not included. documented in this encounterMartin [facility] Hospital08-29-2024 Instructions* Patient Instructions* Adela Lloyd PA-C - 03/04/2024 1:07 PM EDT Images from the original note were not included. [facility] PATIENT PREOPERATIVE INSTRUCTIONS Abi Teixeira DO has scheduled you for your procedure at this surgery center: [facility] Scheduling Office: [phone] --[address] [place] [address]. Please read below carefully for your personalized instructions. Arrival Time for Surgery: - To obtain your arrival time for surgery, call your physician's office the day before your surgery. - If your surgery is scheduled for Friday, call the Friday before. Your surgeon s senior power scheduler will tell you what time to call the office. - If you have not reached the departmental senior power scheduler by 5 P.M., call [phone] after 5 P.M. the day before your surgery. Please be aware that emergency situations arise, which may delay or change your surgical time. If this happens, we will notify you as soon as possible and regret any inconvenience. Dietary Restrictions: - No solid food after midnight. - You may have 12 ounces of clear liquids (water, clear juices such as apple juice or gatorade, carbonated beverages, clear tea, black coffee, jello) until 2 hours before scheduled arrival at facility. - Do not drink any alcohol after midnight the night before your surgery. Medications: Unless instructed differently below, stay on all of your medications until your surgery. If you start any new medications after today's visit, please contact your surgeon. Pre-Surgery Med Instructions Medication Instructions famotidine (PEPCID) 20 mg tablet Take the day of surgery with a small sip of water gabapentin (NEURONTIN) Take the day of surgery with a small sip of water pyridostigmine (MESTINON) 60 mg tablet Continue to take as you normally do tenapanor (IBSRELA) 50 mg tablet Continue to take as you normally do linaCLOtide (LINZESS) 290 mcg capsule Continue to take as you normally do ondansetron orally disintegrating (ZOFRAN ODT) 4 mg disintegrating tablet Continue to take as you normally do potassium chloride SR (MICRO-K) 10 mEq CR capsule Continue to take as you normally do polyethylene glycol 3350 17 gram packet Do not take the day of surgery propranolol ER (INDERAL LA) 60 mg 24 hr capsule Continue to take as you normally do methylphenidate ER (CONCERTA) 18 mg biphasic tablet I am going to check with our anesthesia team tosee if OK for you to take this morning of due to your narcolepsy- I will let you know either by phone call or mychart. loratadine (CLARITIN) 10 mg tablet Do not take the day of surgery MULTIVITAMIN ORAL Stop 14 days before surgery If you start any new medications after today's visit, please contact the surgeon's office. Blood Thinning Medications: - Stop NSAIDS (Ibuprofen, Advil, Aleve, Motrin, Celebrex, Mobic, etc.) 7 days before surgery, as directed by your surgeon. - Stop Aspirin 7 days before surgery, as directed by your surgeon. - Stop Vitamin E, ALL multi-vitamins, herbals and dietary supplements 7 days before surgery. - You may take Tylenol (Acetaminophen) or any of your pain medications that do not contain aspirin or NSAIDS as needed. Vitamins/supplements prescribed for a specific purpose (e.g., vitamin D and calcium for osteoporosis, vitamin B12 for B12 deficiency) should be continued, but all others (especially any including vitamins A and E) should be stopped. Important Reminders: - If you use CPAP/BIPAP, bring the machine with you to the surgery center. - If you are prescribed inhalers for breathing, continue using them. - Candy, mints, and tobacco products are NOT permitted the morning of surgery. - Hearing aids, dentures and glasses may be worn the morning of surgery. - NO jewelry, body piercings, makeup, hairpins or contacts are to be worn the day of surgery. If you develop symptoms such as a fever, cold, or flu, or have other changes to your health within TWO DAYS of scheduled surgery or the morning of surgery, please contact the surgery center above. Personal Belongings: -Please have photo ID and insurance cards. -If you do not have a copy of advance directives on file with us, please bring a copy with you on the day of surgery. - Leave ALL valuables and money at home or with family members. For Outpatient Procedures: - YOU MUST HAVE A RESPONSIBLE ANALYSIS INTERNSHIP TAKE YOU HOME. A AUTOMATIC HEMMER OR DEVELOPMENT EXPERT CANNOT BE MADE A RESPONSIBLE ANALYSIS INTERNSHIP. - We recommend that a responsible person stays with you overnight to take care of you. - You cannot stay in a hotel alone after outpatient surgery. You will not be permitted to have yoursurgery, if you do not have someone to take care of you. If you already have an Advance Directive, please fax a copy to [phone] or email to for it to be added to your chart. If you do not have an Advance Directive, you can find the appropriate form and more information at [email or web address]. We recommend that youcomplete the Advance Directive form found on the website and bring it with you the day of your surgery. It can be witnessed and scanned into your chart that day. Adela Lloyd PA-C documented in this encounterMartin [facility]08-29-2024 History and physical note * Adela Lloyd PA-C - 03/04/2024 1:00 PM EDT HISTORY AND PHYSICAL EXAMINATION SERVICE DATE: 03/04/2024 SERVICE TIME: 4:54 PM PRIMARY CARE PHYSICIAN: Carly Callejas MD REASON FOR VISIT: Mikayla Blnut is a 23 year old female who is scheduled for Procedure(s): LAPAROSCOPIC SALPINGECTOMY (Bilateral) at the request of Abi Mallory DO for consultation. My final recommendation will be communicated back to the requesting physician by way of shared medical record or letter. 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 History of Penicillin Allergy Urticaria Due to Drug Allergy Adverse Effect of Cephalosporins and Other Beta-Lactam Antibiotics, Initial Encounter Seasonal Allergic Rhinitis Due to Pollen Elevated Blood Pressure Reading Without Diagnosis of Hypertension Pre-Op Examination Gerd (Gastroesophageal Reflux Disease) Mild Intermittent Asthma Without Complication Pots (Postural Orthostatic Tachycardia Syndrome) Delayed Emergence From Anesthesia Epilepsy (Hcc) Cyst of Right Ovary Drug-Induced Constipation Chronic Superficial Gastritis Without Bleeding Gastroparesis Intractable Nausea and Vomiting Malnutrition of Moderate Degree (Hcc) Chronic Abdominal Pain Liver Hemangioma Ruq Abdominal Pain Nausea Vomiting and Diarrhea Malnutrition of Mild Degree (Hcc) Ponv (Postoperative Nausea and Vomiting) COVID-19 Immunization Status Overdue - Covid-19 Vaccine ( season) Overdue since 03/07/2023 10/21/2020 Imm Admin: COVID-19 original vaccine, age 12+ yr, monovalent (PFIZER- BIONTECH - PURPLE TOP) 09/30/2020 Imm Admin: COVID-19 original vaccine, age 12+ yr, monovalent (PFIZER- BIONTECH - PURPLE TOP) CHIEF COMPLAINT: Pre-Op HPI: Mikayla Blunt is a 23 year old female presenting for pre-anesthesia consultation. Pt has history of unwanted fertility. Above procedure recommended to manage symptoms. Procedure scheduled on 03/09/2024 at [facility]. REVIEW OF SYSTEMS: General: No weight loss, malaise or fevers. Neurological: Positive for: seizures. Negative for: headaches, multiple sclerosis, Parkinson's disease and strokes. Respiratory: Negative for: asthma, COPD, current cough, dyspnea, tobacco use, URI < 2 weeks and obstructive sleep apnea. Cardiovascular: POTS Positive for: hypertension Negative for: AICD/PPM, anticoagulation therapy, arrhythmia, CAD, chest pain, CHF, DVT/PE, hyperlipidemia, recent GA, murmur/valvular heart disease, open heart surgery and valve surgery. GI: Positive for: abdominal pain, GERD and irritable bowel syndrome Negative for: dysphagia, liver disease, nausea and vomiting. : Negative for: on dialysis, dysuria, hematuria and renal failure. LINING CUTTER: LMP 02/24 Endocrine: Negative for: diabetes mellitus, hyperthyroidism and hypothyroidism. Hematology: Family hx (aunt) has Factor 5 Leiden, never had issues personally in the past. Negative for: anemia, bruises/bleeds easily, factor V Leiden, hemophilia, thrombocytopenia, von Willebrand disease and chronic anti-coagulation/platelet meds. Oncology: No history of CA metastasis, chemo within 30 days, or radiotherapy within 90 days. No history of oncological symptoms or problems. Psych: Negative for: anxiety, bipolar disorder and depression. Musculoskeletal: Negative for joint pain or swelling, back pain or muscle pain. Skin: Negative for lesions, rash and itching. PAST MEDICAL HISTORY No date: Acquired mallet toe of left foot No date: Chronic sinusitis No date: Delayed emergence from anesthesia No date: Epilepsy (HCC) Comment: electrical status epilepticus during sleep (ESES) off AEDs since 2017 No date: GERD (gastroesophageal reflux disease) 04/11/2020: Hypertension 05/11/2020: Migraine without aura and without status migrainosus, not intractable No date: Mild intermittent asthma without complication No date: MT (mallet toe), right No date: Narcolepsy without cataplexy No date: Nonallergic rhinitis No date: PMH - PAST MEDICAL HISTORY OF Comment: seizure No date: POTS (postural orthostatic tachycardia syndrome) PAST SURGICAL HISTORY 2012: DENTAL SURGERY HX Comment: Simple extraction of primary teeth #A, #B, #C, #H, #I, #J, #M, #N, and #R. 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; Right Comment: [facility] 11/21/2003: PAST SURGICAL HISTORY OF Comment: tear duct surgery bilateral 05/2022: PAST SURGICAL HISTORY OF Comment: Correction of second, third, and fourth toes, left foot 02/12/2010: REMOVE TONSIL AND ADENOI UNDER AGE 14 FAMILY HISTORY Problem Relation Age of Onset Graves Disease Mother Heart Mother SVT Allergies Father Asthma Brother Allergies Maternal Grandmother Hypertension Maternal Grandfather Allergies Maternal Grandfather Heart Maternal Grandfather mat side/pat side Breast Cancer Paternal Grandmother No Known Problems Paternal Grandfather Anesthesia Problems No Family History Social History Tobacco Use Smoking status: Never Passive exposure: Never Smokeless tobacco: Never Vaping Use Vaping status: Never Used Substance Use Topics Alcohol use: No Drug use: No Prior to Admission medications as of 03/04/24 1258 Medication Sig Last Dose Taking famotidine (PEPCID) 20 mg tablet Take 1 tablet by mouth two times a day. Taking Yes gabapentin (NEURONTIN) 100 mg capsule Take 100mg twice a day and 300mg at bedtime. Taking Yes lidocaine visc 2% MAALOX 200-200-20 mg/5 mL oral liquid 1:2 (CPD) Swish and spit 5 mL by mouth oncedaily as needed. Taking Yes pyridostigmine (MESTINON) 60 mg tablet Take 1 tablet by mouth three times a day. Taking Yes tenapanor (IBSRELA) 50 mg tablet Take 1 tablet (50 mg) by mouth two times a day. Taking Yes linaCLOtide (LINZESS) 290 mcg capsule Take 1 capsule by mouth daily at 6 am. Taking Yes ondansetron orally disintegrating (ZOFRAN ODT) 4 mg disintegrating tablet Take 1 tablet by mouth every 8 hours as needed for nausea/vomiting. Taking Yes potassium chloride SR (MICRO-K) 10 mEq CR capsule Take by mouth. Taking Yes polyethylene glycol 3350 17 gram packet Take 1 Packet by mouth once daily. Dissolve dose in 4 - 8 ounces of liquid and take as directed. Taking Yes propranolol ER (INDERAL LA) 60 mg 24 hr capsule Take 1 capsule by mouth once daily. Taking Yes methylphenidate ER (CONCERTA) 18 mg biphasic tablet Take 1 tablet by mouth every morning for 30 days. Taking Yes loratadine (CLARITIN) 10 mg tablet Take 10 mg by mouth once daily. Taking Yes MULTIVITAMIN ORAL Take 1 tablet by mouth once daily. Taking Yes gabapentin (NEURONTIN) 100 mg capsule Take 1 capsule by mouth three times a day for 30 days. Patient not taking: Reported on 03/04/2024 Not Taking albuterol HFA (PROVENTIL HFA, VENTOLIN HFA) 90 mcg/actuation inhaler Inhale 2 Puffs as instructed every 4 hours as needed. No medication comments found. ALLERGIES Allergen Reactions Cefdinir Swelling Hydrocodone-Acetami* Swelling Latex Swelling Penicillins Rash Benadryl [Diphenhyd* Mental Status Change agitation Droperidol Other: See Comments akathesia Compazine [Prochlor* Intolerance Restlessness, agitation Gluten GI Upset Versed [Midazolam H* Mental Status Change Pulling out IV's, extremely confused and restless, getting on hands and knees Objective PHYSICAL EXAM: General: alert and oriented and healthy appearance. Pertinent negatives noted - not distressed. Skin: normal color, no rash or lesions. HEENT: EOM intact, pupils equal round and pupils reactive to light. Pertinent negatives noted - no carotid bruit. Cardiovascular: regular rate and rhythm, normal S1 and S2, no rub, murmurs, or gallop. Respiratory: normal breath sounds, no wheezes or crackles. No chest wall deformity or tenderness. Abdomen: bowel sounds present and soft. Pertinent negatives noted - not tender. Extremities: no deformity, no edema or tenderness, no joint swelling or clubbing. Neurological: normal cognition and motor skills. Gait normal. No weakness or sensory deficit. PAIN ASSESSMENT: Pain Pain Level: 3 Pain Location: Abdomen-Mid Upper Description: Sharp Frequency: Continuous VITALS: BP 109/77 Pulse 82 Temp 98.1 Resp 16 Ht 5' 2 (1.58m) Wt 113 lb 12.1 oz (51.6kg) SpO2 98% LMP 02/25/2024 BMI 20.80 kg/(m^2). Diagnostic tests reviewed for today's visit: Lab Value Units Date High Low HB 13.9 g/dL 03/04/2024 15.5 11.5 HCT 41.6 % 03/04/2024 46.0 36.0 WBC 6.25 k/uL 03/04/2024 11.00 3.70 PLT 187 k/uL 03/04/2024 400 150 NA 141 mmol/L 03/01/2024 144 136 K 4.2 mmol/L 03/01/2024 5.1 3.7 GLUC 91 mg/dL 03/01/2024 99 74 BUN 8 mg/dL 03/01/2024 21 7 CREAT 0.67 mg/dL 03/01/2024 0.96 0.58 PTSEC No results within date range. INR No results within date range. APTT 30.0 sec 09/22/2023 32.4 23.0 ALT 16 U/L 02/01/2024 38 7 AST 21 U/L 02/01/2024 35 13 TBILI 0.3 mg/dL 02/01/2024 1.3 0.2 TSH 1.040 mIU/L 03/01/2024 4.200 0.270 Lab Value Units Date High Low HCGQT No results within date range. UHCG No results within date range. HCG, BODY* No results within date range. Lab Value Units Date High Low ABORHD No results within date range. ABSCREEN No results within date range. Hemoglobin A1C (%) Date Value 03/01/2024 4.9 09/20/2023 4.9 Recent Results (from the past 8760 hour(s)) ECG COMPLETE Collection Time: 09/24/23 6:10 PM Result Value Ventricular Rate 66 Atrial Rate 66 P-R Interval 176 QRS Duration 86 QT Interval 414 QTC Calculation (Bazett) 434 Calculated P [place] 57 Calculated R [place] 74 Calculated T [place] 54 Impression NORMAL SINUS RHYTHM WITH SINUS ARRHYTHMIA NORMAL ECG Confirmed by BRYAN LÓPEZ, CALDWELL ([id number]) on 10/06/2023 12:56:51 PM No results found for this or any previous visit (from the past 62357 hour(s)). Assessment Patient has the following medical conditions which may affect gaeg-operative course: Delayed emergence from anesthesia Assessment: Hx of narcolepsy. Reports delayed emergence (has never needed admission for this post-surgery). PONV (postoperative nausea and vomiting) Assessment: Severe N+V in the past. Zofran works well. Not a good response to diphenhydramine or anticholinergics Epilepsy (HCC) Assessment: Last seizure > 5 yr ago. Off all medications now, cleared by neuro for PRN follow up. Narcolepsy without cataplexy Assessment: Controlled with methylphenidate. Elevated blood pressure reading without diagnosis of hypertension Assessment: BP can be labile D/t POTS - on propranolol which controls this. Liver hemangioma Assessment: Incidental finding on imaging. Following with PCP. POTS (postural orthostatic tachycardia syndrome) Assessment: Follows with neuro-POTS team yearly. Last visit 09/01/23 with [facility]. Stable on current medication. Mild intermittent asthma without complication Assessment: Mild intermittent. Well controlled with PRN albuterol - very rare need. No recent use. GERD (gastroesophageal reflux disease) Assessment: Controlled with pepcid. Gastroparesis Assessment: Following with GI. [place] Activity Status Index: METS: Climb a flight of stairs or walk up a hill (5.50 METs) DASI Score: 5.5 Patient denies any chest pain or undue shortness of breath with the above physical activity. Clinical Frailty Scale: 3. Well, with treated comorbid disease STOP-Bang Score: Often feels tired, fatigued, or sleepy during the daytime Has or is being treated for high blood pressure Denies snoring loudly Has not been observed to stop breathing or choking/gasping during sleep BMI less than or equal to 35 kg/m^2 Patient 50 years old or younger Does not have a large neck Non-male patient STOP-Bang Score: 2 [id number] Score: Age: <65 Sex: female CHF history: No Hypertension history: Yes Stroke/TIA/thromboembolism history: No Vascular disease history: No Diabetes history: No [id number] Score: 2 ANESTHESIA FINDINGS: Intubation History: No history of difficult intubation. No abnormal airway history Significant Anesthesia Considerations: potential slow emergence Airway History: No history of difficult airway No abnormal airway history I - PHYSICAL EVALUATION AIRWAY Patient intubated: No. Tracheostomy tube not present Mallampati: I. TM distance: >3 FB. Neck ROM: full ROM without neurological symptoms. Mouth opening: adequate. Short neck: no. Thick neck: no Lip Bite Test: I Microretrognathia/Micronagthia/Recessed Chin: No DENTAL Dental findings: teeth intact. II - ANESTHESIA PLAN Anesthetic Plan: other Anesthetic plan additional comments: *PACC/TCI - anesthesia choice. Beta Alvino Monitoring Plan Post Procedure Analgesic Plan Prepared for Surgery: optimally prepared for surgery, pending [see comment]. Very bad rxn to versedin the past Tolerates fentanyl + propofol well Labs reviewed and accepted. Sent message to anesthesiologist at [facility] re: methylphenidate on DOS considering pt narcolepsy - awaiting reply. CONSULTS: Patient does not require consults for optimization at this time Planned Anesthetic: other anesthesia choice The Following Tests/Procedures Have Been Initiated: No orders of the defined types were placed in this encounter. Instructions Given to Patient: Instructions located in the after visit summary. Patient given verbal and written preop instructions and voices comprehension and compliance. SIGNATURE: Adela Lloyd PA-C PATIENT NAME: Mikayla Blunt DATE: 03/04/2024 TIME: 4:54 PM PAGER/CONTACT #: [email or web address] History and physical note* Adela Lloyd PA- C - 03/04/2024 1:00 PM EDT HISTORY AND PHYSICAL EXAMINATION SERVICE DATE: 03/04/2024 SERVICE TIME: 4:54 PM PRIMARY CARE PHYSICIAN: Carly Callejas MD REASON FOR VISIT: Miakyla Blunt is a 23 year old female who is scheduled for Procedure(s): LAPAROSCOPIC SALPINGECTOMY (Bilateral) at the request of Abi Mallory DO for consultation. My final recommendation will be communicated back to the requesting physician by way of shared medical record or letter. 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 History of Penicillin Allergy Urticaria Due to Drug Allergy Adverse Effect of Cephalosporins and Other Beta-Lactam Antibiotics, Initial Encounter Seasonal Allergic Rhinitis Due to Pollen Elevated Blood Pressure Reading Without Diagnosis of Hypertension Pre-Op Examination Gerd (Gastroesophageal Reflux Disease) Mild Intermittent Asthma Without Complication Pots (Postural Orthostatic Tachycardia Syndrome) Delayed Emergence From Anesthesia Epilepsy (Hcc) Cyst of Right Ovary Drug-Induced Constipation Chronic Superficial Gastritis Without Bleeding Gastroparesis Intractable Nausea and Vomiting Malnutrition of Moderate Degree (Hcc) Chronic Abdominal Pain Liver Hemangioma Ruq Abdominal Pain Nausea Vomiting and Diarrhea Malnutrition of Mild Degree (Hcc) Ponv (Postoperative Nausea and Vomiting) COVID-19 Immunization Status Overdue - Covid-19 Vaccine () Overdue since 03/07/2023 10/21/2020 Imm Admin: COVID-19 original vaccine, age 12+ yr, monovalent (PFIZER- BIONTECH - PURPLE TOP) 09/30/2020 Imm Admin: COVID-19 original vaccine, age 12+ yr, monovalent (PFIZER- BIONTECH - PURPLE TOP) CHIEF COMPLAINT: Pre-Op HPI: Mikayla Blunt is a 23 year old female presenting for pre-anesthesia consultation. Pt has history of unwanted fertility. Above procedure recommended to manage symptoms. Procedure scheduled on 03/09/2024 at [facility]. REVIEW OF SYSTEMS: General: No weight loss, malaise or fevers. Neurological: Positive for: seizures. Negative for: headaches, multiple sclerosis, Parkinson's disease and strokes. Respiratory: Negative for: asthma, COPD, current cough, dyspnea, tobacco use, URI < 2 weeks and obstructive sleep apnea. Cardiovascular: POTS Positive for: hypertension Negative for: AICD/PPM, anticoagulation therapy, arrhythmia, CAD, chest pain, CHF, DVT/PE, hyperlipidemia, recent GA, murmur/valvular heart disease, open heart surgery and valve surgery. GI: Positive for: abdominal pain, GERD and irritable bowel syndrome Negative for: dysphagia, liver disease, nausea and vomiting. : Negative for: on dialysis, dysuria, hematuria and renal failure. LINING CUTTER: LMP 02/24 Endocrine: Negative for: diabetes mellitus, hyperthyroidism and hypothyroidism. Hematology: Family hx (aunt) has Factor 5 Leiden, never had issues personally in the past. Negative for: anemia, bruises/bleeds easily, factor V Leiden, hemophilia, thrombocytopenia, von Willebrand disease and chronic anti-coagulation/platelet meds. Oncology: No history of CA metastasis, chemo within 30 days, or radiotherapy within 90 days. No history of oncological symptoms or problems. Psych: Negative for: anxiety, bipolar disorder and depression. Musculoskeletal: Negative for joint pain or swelling, back pain or muscle pain. Skin: Negative for lesions, rash and itching. PAST MEDICAL HISTORY No date: Acquired mallet toe of left foot No date: Chronic sinusitis No date: Delayed emergence from anesthesia No date: Epilepsy (HCC) Comment: electrical status epilepticus during sleep (ESES) off AEDs since 2017 No date: GERD (gastroesophageal reflux disease) 04/11/2020: Hypertension 05/11/2020: Migraine without aura and without status migrainosus, not intractable No date: Mild intermittent asthma without complication No date: MT (mallet toe), right No date: Narcolepsy without cataplexy No date: Nonallergic rhinitis No date: PMH - PAST MEDICAL HISTORY OF Comment: seizure No date: POTS (postural orthostatic tachycardia syndrome) PAST SURGICAL HISTORY 2012: DENTAL SURGERY HX Comment: Simple extraction of primary teeth #A, #B, #C, #H, #I, #J, #M, #N, and #R. 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; Right Comment: [facility] 11/21/2003: PAST SURGICAL HISTORY OF Comment: tear duct surgery bilateral 05/2022: PAST SURGICAL HISTORY OF Comment: Correction of second, third, and fourth toes, left foot 02/12/2010: REMOVE TONSIL AND ADENOI UNDER AGE 12 FAMILY HISTORY Problem Relation Age of Onset Graves Disease Mother Heart Mother SVT Allergies Father Asthma Brother Allergies Maternal Grandmother Hypertension Maternal Grandfather Allergies Maternal Grandfather Heart Maternal Grandfather mat side/pat side Breast Cancer Paternal Grandmother No Known Problems Paternal Grandfather Anesthesia Problems No Family History Social History Tobacco Use Smoking status: Never Passive exposure: Never Smokeless tobacco: Never Vaping Use Vaping status: Never Used Substance Use Topics Alcohol use: No Drug use: No Prior to Admission medications as of 03/04/24 1258 Medication Sig Last Dose Taking famotidine (PEPCID) 20 mg tablet Take 1 tablet by mouth two times a day. Taking Yes gabapentin (NEURONTIN) 100 mg capsule Take 100mg twice a day and 300mg at bedtime. Taking Yes lidocaine visc 2% MAALOX 200-200-20 mg/5 mL oral liquid 1:2 (CPD) Swish and spit 5 mL by mouth oncedaily as needed. Taking Yes pyridostigmine (MESTINON) 60 mg tablet Take 1 tablet by mouth three times a day. Taking Yes tenapanor (IBSRELA) 50 mg tablet Take 1 tablet (50 mg) by mouth two times a day. Taking Yes linaCLOtide (LINZESS) 290 mcg capsule Take 1 capsule by mouth daily at 6 am. Taking Yes ondansetron orally disintegrating (ZOFRAN ODT) 4 mg disintegrating tablet Take 1 tablet by mouth every 8 hours as needed for nausea/vomiting. Taking Yes potassium chloride SR (MICRO-K) 10 mEq CR capsule Take by mouth. Taking Yes polyethylene glycol 3350 17 gram packet Take 1 Packet by mouth once daily. Dissolve dose in 4 - 8 ounces of liquid and take as directed. Taking Yes propranolol ER (INDERAL LA) 60 mg 24 hr capsule Take 1 capsule by mouth once daily. Taking Yes methylphenidate ER (CONCERTA) 18 mg biphasic tablet Take 1 tablet by mouth every morning for 30 days. Taking Yes loratadine (CLARITIN) 10 mg tablet Take 10 mg by mouth once daily. Taking Yes MULTIVITAMIN ORAL Take 1 tablet by mouth once daily. Taking Yes gabapentin (NEURONTIN) 100 mg capsule Take 1 capsule by mouth three times a day for 30 days. Patient not taking: Reported on 03/04/2024 Not Taking albuterol HFA (PROVENTIL HFA, VENTOLIN HFA) 90 mcg/actuation inhaler Inhale 2 Puffs as instructed every 4 hours as needed. No medication comments found. ALLERGIES Allergen Reactions Cefdinir Swelling Hydrocodone-Acetami* Swelling Latex Swelling Penicillins Rash Benadryl [Diphenhyd* Mental Status Change agitation Droperidol Other: See Comments akathesia Compazine [Prochlor* Intolerance Restlessness, agitation Gluten GI Upset Versed [Midazolam H* Mental Status Change Pulling out IV's, extremely confused and restless, getting on hands and knees Objective PHYSICAL EXAM: General: alert and oriented and healthy appearance. Pertinent negatives noted - not distressed. Skin: normal color, no rash or lesions. HEENT: EOM intact, pupils equal round and pupils reactive to light. Pertinent negatives noted - no carotid bruit. Cardiovascular: regular rate and rhythm, normal S1 and S2, no rub, murmurs, or gallop. Respiratory: normal breath sounds, no wheezes or crackles. No chest wall deformity or tenderness. Abdomen: bowel sounds present and soft. Pertinent negatives noted - not tender. Extremities: no deformity, no edema or tenderness, no joint swelling or clubbing. Neurological: normal cognition and motor skills. Gait normal. No weakness or sensory deficit. PAIN ASSESSMENT: Pain Pain Level: 3 Pain Location: Abdomen-Mid Upper Description: Sharp Frequency: Continuous VITALS: BP 109/77 Pulse 82 Temp 98.1 Resp 16 Ht 5' 2 (1.58m) Wt 113 lb 12.1 oz (51.6kg) SpO2 98% LMP 02/25/2024 BMI 20.80 kg/(m^2). Diagnostic tests reviewed for today's visit: Lab Value Units Date High Low HB 13.9 g/dL 03/04/2024 15.5 11.5 HCT 41.6 % 03/04/2024 46.0 36.0 WBC 6.25 k/uL 03/04/2024 11.00 3.70 PLT 187 k/uL 03/04/2024 400 150 NA 141 mmol/L 03/01/2024 144 136 K 4.2 mmol/L 03/01/2024 5.1 3.7 GLUC 91 mg/dL 03/01/2024 99 74 BUN 8 mg/dL 03/01/2024 21 7 CREAT 0.67 mg/dL 03/01/2024 0.96 0.58 PTSEC No results within date range. INR No results within date range. APTT 30.0 sec 09/22/2023 32.4 23.0 ALT 16 U/L 02/01/2024 38 7 AST 21 U/L 02/01/2024 35 13 TBILI 0.3 mg/dL 02/01/2024 1.3 0.2 TSH 1.040 mIU/L 03/01/2024 4.200 0.270 Lab Value Units Date High Low HCGQT No results within date range. UHCG No results within date range. HCG, BODY* No results within date range. Lab Value Units Date High Low ABORHD No results within date range. ABSCREEN No results within date range. Hemoglobin A1C (%) Date Value 03/01/2024 4.9 09/20/2023 4.9 Recent Results (from the past 8760 hour(s)) ECG COMPLETE Collection Time: 09/24/23 6:10 PM Result Value Ventricular Rate 66 Atrial Rate 66 P-R Interval 176 QRS Duration 86 QT Interval 414 QTC Calculation (Bazett) 434 Calculated P [place] 57 Calculated R [place] 74 Calculated T [place] 54 Impression NORMAL SINUS RHYTHM WITH SINUS ARRHYTHMIA NORMAL ECG Confirmed by BRYAN LÓPEZ, KELLY ([id number]) on 10/06/2023 12:56:51 PM No results found for this or any previous visit (from the past 71180 hour(s)). Assessment Patient has the following medical conditions which may affect gage-operative course: Delayed emergence from anesthesia Assessment: Hx of narcolepsy. Reports delayed emergence (has never needed admission for this post-surgery). PONV (postoperative nausea and vomiting) Assessment: Severe N+V in the past. Zofran works well. Not a good response to diphenhydramine or anticholinergics Epilepsy (HCC) Assessment: Last seizure > 5 yr ago. Off all medications now, cleared by neuro for PRN follow up. Narcolepsy without cataplexy Assessment: Controlled with methylphenidate. Elevated blood pressure reading without diagnosis of hypertension Assessment: BP can be labile D/t POTS - on propranolol which controls this. Liver hemangioma Assessment: Incidental finding on imaging. Following with PCP. POTS (postural orthostatic tachycardia syndrome) Assessment: Follows with neuro-POTS team yearly. Last visit 09/01/23 with [facility]. Stable on current medication. Mild intermittent asthma without complication Assessment: Mild intermittent. Well controlled with PRN albuterol - very rare need. No recent use. GERD (gastroesophageal reflux disease) Assessment: Controlled with pepcid. Gastroparesis Assessment: Following with GI. [place] Activity Status Index: METS: Climb a flight of stairs or walk up a hill (5.50 METs) DASI Score: 5.5 Patient denies any chest pain or undue shortness of breath with the above physical activity. Clinical Frailty Scale: 3. Well, with treated comorbid disease STOP-Bang Score: Often feels tired, fatigued, or sleepy during the daytime Has or is being treated for high blood pressure Denies snoring loudly Has not been observed to stop breathing or choking/gasping during sleep BMI less than or equal to 35 kg/m^2 Patient 50 years old or younger Does not have a large neck Non-male patient STOP-Bang Score: 2 [id number] Score: Age: <65 Sex: female CHF history: No Hypertension history: Yes Stroke/TIA/thromboembolism history: No Vascular disease history: No Diabetes history: No [id number] Score: 2 ANESTHESIA FINDINGS: Intubation History: No history of difficult intubation. No abnormal airway history Significant Anesthesia Considerations: potential slow emergence Airway History: No history of difficult airway No abnormal airway history I - PHYSICAL EVALUATION AIRWAY Patient intubated: No. Tracheostomy tube not present Mallampati: I. TM distance: >3 FB. Neck ROM: full ROM without neurological symptoms. Mouth opening: adequate. Short neck: no. Thick neck: no Lip Bite Test: I Microretrognathia/Micronagthia/Recessed Chin: No DENTAL Dental findings: teeth intact. II - ANESTHESIA PLAN Anesthetic Plan: other Anesthetic plan additional comments: *PACC/TCI - anesthesia choice. Beta Alivno Monitoring Plan Post Procedure Analgesic Plan Prepared for Surgery: optimally prepared for surgery, pending [see comment]. Very bad rxn to versedin the past Tolerates fentanyl + propofol well Labs reviewed and accepted. Sent message to anesthesiologist at [facility] re: methylphenidate on DOS considering pt narcolepsy - awaiting reply. CONSULTS: Patient does not require consults for optimization at this time Planned Anesthetic: other anesthesia choice The Following Tests/Procedures Have Been Initiated: No orders of the defined types were placed in this encounter. Instructions Given to Patient: Instructions located in the after visit summary. Patient given verbal and written preop instructions and voices comprehension and compliance. SIGNATURE: Adela Lloyd PA-C PATIENT NAME: Mikayla Blunt DATE: 03/04/2024 TIME: 4:54 PM PAGER/CONTACT #: documented in this encounter[facility] Telephone encounter Note * Telephone Encounter - Gunjan Frank RN - 03/03/2024 1:24 PM EDT No problem. Just informed her. [facility] Miscellaneous Notes* Telephone Encounter - Gunjan Frank RN - 03/03/2024 1:24 PM EDT No problem. Just informed her. * Addendum Note - Bernie Martines MD - 03/03/2024 12:47 PM EDTAddended by: BERNIE MARTINES on: 03/03/2024 12:47 PM Modules accepted: Orders * Telephone Encounter - Bernie Martines MD - 03/03/2024 12:47 PM EDT I meant to send to [facility]. Just updated the order. Can you pls let her know * Telephone Encounter - Gunjan Frank RN - 03/03/2024 11:50 AM EDT If you do not want to sub with Mylanta. Our [facility] pharmacy can compound this medication. Let me know. * Telephone Encounter - Kimberly Desouza - 03/03/2024 11:42 AM EDT Received call from [facility] concerning escript below They do not have Maalox; can they substitute with Mylanta [id number] [phone] Kimberly Mohamud lidocaine visc 2% MAALOX 200-200-20 mg/5 mL oral liquid 1:2 (CPD) 150 mL 0 03/01/2024 03/31/2024 Sig: Take 5 mL by mouth once daily as needed. Sent to pharmacy as: lidocaine visc 2% MAALOX 200-200-20 mg/5 mL oral liquid 1:2 (CPD) Class: Normal Notes to Pharmacy: Compound Medication documented in this encounterMartin [facility]08-28-[facility]24 Note* Addendum Note - Bernie Martines MD - 03/03/2024 12:47 PM EDTAddended by: BERNIE MARTINES on: 03/03/2024 12:47 PM Modules accepted: Orders [facility]08-28-[facility]24 Telephone encounter Note* Telephone Encounter - Bernie Martines MD - 03/03/2024 12:47 PM EDT I meant to send to [facility]. Just updated the order. Can you pls let her know [facility] Telephone encounter Note* Telephone Encounter - Gunjan Frank, YA - 03/03/2024 11:50 AM EDT If you do not want to sub with Mylanta. Our [facility] pharmacy can compound this medication. Let me know. [facility]08[facility] Telephone encounter Note* Telephone Encounter - Kimberly Desouza - 03/03/2024 11:42 AM EDT Received call from [facility] concerning escript below They do not have Maalox; can they substitute with Mylanta [id number] [phone] Kimberly Mohamud lidocaine visc 2% MAALOX 200-200-20 mg/5 mL oral liquid 1:2 (CPD) 150 mL 0 03/01/2024 03/31/2024 Sig: Take 5 mL by mouth once daily as needed. Sent to pharmacy as: lidocaine visc 2% MAALOX 200-200-20 mg/5 mL oral liquid 1:2 (CPD) Class: Normal Notes to Pharmacy: Compound Medication [facility]08[facility] Telephone encounter Note* Telephone Encounter - Janey Domingo - 03/03/2024 9:51 AM EDT Pt scheduled [facility]08[facility] Miscellaneous Notes* Telephone Encounter - Janey Domingo - 03/03/2024 9:51 AM EDT Pt scheduled * Telephone Encounter - Michelle Carreon RN - 03/02/2024 9:18 AM EDT Please call and schedule patient for follow up virtual or in person appointment with Dustin Tamayo D.O. the last week in March or close to that date in the [facility] for ongoing discussion of plan of care and results review if available. documented in this encounterMartin [facility] Hospital08-27-2024 History and physical note * Lisy Rodriguez MD - 03/02/2024 3:39 PM EDT [facility] H&P Subjective CHIEF COMPLAINT: Abdominal pain HISTORY OF PRESENT ILLNESS: Ms. Blunt is a 23 year old female who presents for RUQ abdominal pain.It has been going on for years. It radiates to the middle of her shoulder blades and is worse aftereating. She has chronic nausea. She eats a modified diet. She has documented severe gastroparesis and has tried erythromycin without improvement. She also has concern for autoimmune gastritis, for which she is currently undergoing work-up. Medical history is significant for severe gastroparesis, GERD, autoimmune gastritis, POTS, narcolepsy, epilepsy. She has had no prior abdominal surgeries. PAST MEDICAL HISTORY No date: Acquired mallet toe of left foot No date: Chronic sinusitis No date: Delayed emergence from anesthesia No date: Epilepsy (HCC) Comment: electrical status epilepticus during sleep (ESES) off AEDs since 2018 No date: GERD (gastroesophageal reflux disease) 04/11/2020: Hypertension No date: Mild intermittent asthma without complication No date: MT (mallet toe), right No date: Narcolepsy without cataplexy No date: Nonallergic rhinitis No date: PMH - PAST MEDICAL HISTORY OF Comment: seizure No date: POTS (postural orthostatic tachycardia syndrome) PAST SURGICAL HISTORY 2012: DENTAL SURGERY HX Comment: Simple extraction of primary teeth #A, #B, #C, #H, #I, #J, #M, #N, and #R. 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 gabapentin (NEURONTIN) 100 mg capsule Take 100mg twice a day and 300mg at bedtime. famotidine (PEPCID) 20 mg tablet Take 1 tablet by mouth two times a day. linaCLOtide (LINZESS) 290 mcg capsule Take 1 capsule by mouth daily at 6 am. gabapentin (NEURONTIN) 100 mg capsule Take 1 capsule by mouth three times a day for 30 days. ondansetron orally disintegrating (ZOFRAN ODT) 4 mg disintegrating tablet Take 1 tablet by mouth every 8 hours as needed for nausea/vomiting. potassium chloride SR (MICRO-K) 10 mEq CR capsule Take by mouth. polyethylene glycol 3350 17 gram packet Take 1 Packet by mouth once daily. Dissolve dose in 4 - 8 ounces of liquid and take as directed. propranolol ER (INDERAL LA) 60 mg 24 hr capsule Take 1 capsule by mouth once daily. methylphenidate ER (CONCERTA) 18 mg biphasic tablet Take 1 tablet by mouth every morning for 30 days. loratadine (CLARITIN) 10 mg tablet Take 10 mg by mouth once daily. MULTIVITAMIN ORAL Take 1 tablet by mouth once daily. lidocaine visc 2% MAALOX 200-200-20 mg/5 mL oral liquid 1:2 (CPD) Take 5 mL by mouth once daily as needed. tenapanor (IBSRELA) 50 mg tablet Take 1 tablet (50 mg) by mouth two times a day. albuterol HFA (PROVENTIL HFA, VENTOLIN HFA) 90 mcg/actuation inhaler Inhale 2 Puffs as instructed every 4 hours as needed. No current facility-administered medications on file prior to visit. ALLERGIES Allergen Reactions Cefdinir Swelling Hydrocodone-Acetami* Swelling Latex Swelling Penicillins Rash Benadryl [Diphenhyd* Mental Status Change agitation Droperidol Other: See Comments akathesia Compazine [Prochlor* Intolerance Restlessness, agitation Gluten GI Upset Versed [Midazolam H* Mental Status Change Pulling out IV's, extremely confused and restless, getting on hands and knees FAMILY HISTORY Problem Relation Age of Onset Graves Disease Mother Heart Mother SVT Allergies Father Asthma Brother Allergies Maternal Grandmother Hypertension Maternal Grandfather Allergies Maternal Grandfather Heart Maternal Grandfather mat side/pat side Breast Cancer Paternal Grandmother No Known Problems Paternal Grandfather Social History Tobacco Use Smoking status: Never Passive exposure: Never Smokeless tobacco: Never Vaping Use Vaping status: Never Used Substance Use Topics Alcohol use: No Drug use: No Objective PHYSICAL EXAM: BP 114/76 Pulse 67 Resp 20 Ht 5' 2 (1.58m) Wt 114 lb (51.7kg) LMP 01/25/2024 BMI 20.85kg/(m^2). Physical Exam Performed GENERAL: Alert, no distress, cooperative LUNGS: Negative ABDOMEN: Soft, nontender The remainder of the physical exam is noncontributory. DATA: Diagnostic tests reviewed for today's visit: Most recent labs and imaging results. Assessment/Plan 23 year old female with severe gastroparesis, GERD, autoimmune gastritis, POTS, narcolepsy, epilepsy who presents with biliary dyskinesia vs chronic cholecystitis. Discussed with patient that lap ezra is unlikely to significantly improve her symptoms and her ongoing GI work-up and treatment of gastroparesis and autoimmune gastritis should take priority. Will reach out to Dr. Tamayo and Dr. Martines to coordinate care. --Patient will call the office if she decides she would like her gallbladder out in the context of her ongoing GI problems --Follow-up with hi DERRICK Rodriguez MD [facility]08-[facility] History and physical note* Lisy Rodriguez MD - 03/02/2024 3:39 PM EDT [facility]&P Subjective CHIEF COMPLAINT: Abdominal pain HISTORY OF PRESENT ILLNESS: Ms. Blunt is a 23 year old female who presents for RUQ abdominal pain.It has been going on for years. It radiates to the middle of her shoulder blades and is worse aftereating. She has chronic nausea. She eats a modified diet. She has documented severe gastroparesis and has tried erythromycin without improvement. She also has concern for autoimmune gastritis, for which she is currently undergoing work-up. Medical history is significant for severe gastroparesis, GERD, autoimmune gastritis, POTS, narcolepsy, epilepsy. She has had no prior abdominal surgeries. PAST MEDICAL HISTORY No date: Acquired mallet toe of left foot No date: Chronic sinusitis No date: Delayed emergence from anesthesia No date: Epilepsy (HCC) Comment: electrical status epilepticus during sleep (ESES) off AEDs since 2017 No date: GERD (gastroesophageal reflux disease) 04/11/2020: Hypertension No date: Mild intermittent asthma without complication No date: MT (mallet toe), right No date: Narcolepsy without cataplexy No date: Nonallergic rhinitis No date: PMH - PAST MEDICAL HISTORY OF Comment: seizure No date: POTS (postural orthostatic tachycardia syndrome) PAST SURGICAL HISTORY 2012: DENTAL SURGERY HX Comment: Simple extraction of primary teeth #A, #B, #C, #H, #I, #J, #M, #N, and #R. 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 gabapentin (NEURONTIN) 100 mg capsule Take 100mg twice a day and 300mg at bedtime. famotidine (PEPCID) 20 mg tablet Take 1 tablet by mouth two times a day. linaCLOtide (LINZESS) 290 mcg capsule Take 1 capsule by mouth daily at 6 am. gabapentin (NEURONTIN) 100 mg capsule Take 1 capsule by mouth three times a day for 30 days. ondansetron orally disintegrating (ZOFRAN ODT) 4 mg disintegrating tablet Take 1 tablet by mouth every 8 hours as needed for nausea/vomiting. potassium chloride SR (MICRO-K) 10 mEq CR capsule Take by mouth. polyethylene glycol 3350 17 gram packet Take 1 Packet by mouth once daily. Dissolve dose in 4 - 8 ounces of liquid and take as directed. propranolol ER (INDERAL LA) 60 mg 24 hr capsule Take 1 capsule by mouth once daily. methylphenidate ER (CONCERTA) 18 mg biphasic tablet Take 1 tablet by mouth every morning for 30 days. loratadine (CLARITIN) 10 mg tablet Take 10 mg by mouth once daily. MULTIVITAMIN ORAL Take 1 tablet by mouth once daily. lidocaine visc 2% MAALOX 200-200-20 mg/5 mL oral liquid 1:2 (CPD) Take 5 mL by mouth once daily as needed. tenapanor (IBSRELA) 50 mg tablet Take 1 tablet (50 mg) by mouth two times a day. albuterol HFA (PROVENTIL HFA, VENTOLIN HFA) 90 mcg/actuation inhaler Inhale 2 Puffs as instructed every 4 hours as needed. No current facility-administered medications on file prior to visit. ALLERGIES Allergen Reactions Cefdinir Swelling Hydrocodone-Acetami* Swelling Latex Swelling Penicillins Rash Benadryl [Diphenhyd* Mental Status Change agitation Droperidol Other: See Comments akathesia Compazine [Prochlor* Intolerance Restlessness, agitation Gluten GI Upset Versed [Midazolam H* Mental Status Change Pulling out IV's, extremely confused and restless, getting on hands and knees FAMILY HISTORY Problem Relation Age of Onset Graves Disease Mother Heart Mother SVT Allergies Father Asthma Brother Allergies Maternal Grandmother Hypertension Maternal Grandfather Allergies Maternal Grandfather Heart Maternal Grandfather mat side/pat side Breast Cancer Paternal Grandmother No Known Problems Paternal Grandfather Social History Tobacco Use Smoking status: Never Passive exposure: Never Smokeless tobacco: Never Vaping Use Vaping status: Never Used Substance Use Topics Alcohol use: No Drug use: No Objective PHYSICAL EXAM: BP 114/76 Pulse 67 Resp 20 Ht 5' 2 (1.58m) Wt 114 lb (51.7kg) LMP 01/25/2024 BMI 20.85kg/(m^2). Physical Exam Performed GENERAL: Alert, no distress, cooperative LUNGS: Negative ABDOMEN: Soft, nontender The remainder of the physical exam is noncontributory. DATA: Diagnostic tests reviewed for today's visit: Most recent labs and imaging results. Assessment/Plan 23 year old female with severe gastroparesis, GERD, autoimmune gastritis, POTS, narcolepsy, epilepsy who presents with biliary dyskinesia vs chronic cholecystitis. Discussed with patient that lap ezra is unlikely to significantly improve her symptoms and her ongoing GI work-up and treatment of gastroparesis and autoimmune gastritis should take priority. Will reach out to Dr. Tamayo and Dr. Martines to coordinate care. --Patient will call the office if she decides she would like her gallbladder out in the context of her ongoing GI problems --Follow-up with me DERRICK Rodriguez MD [facility] Surgeon documented in this encounterMartin [facility]08-27-[facility]24 Instructions* Patient Instructions* Mouna Grier LPN - 03/02/2024 3:26 PM EDT Images from the original note were not included. MINIMALLY INVASIVE GYNECOLOGIC SURGERY (MIGS)/BENIGN GYNECOLOGY CONTACTS: Dr. Abi Teixeira Surgery Scheduling Office: Call the day before surgery after 2pm for your surgery arrival time After hours phone number: or toll free Ask the shoelace tipping machine operator to page the major gifts officer instrument and controls technician.' Business hours are Friday - Friday from 8:00am - 4:30pm. We are closed on weekends and major holidays. PRE-OPERATIVE CHECKLIST: PATIENT INSTRUCTIONS PRIOR TO SURGERY Our guidelines have changed, so please read these instructions carefully. Your surgery may be cancelled if you do not follow these instructions. I have been instructed not to have any solid food to eat after midnight prior to my surgery (this includes no gum, mints, smoking). I am allowed to drink small amounts (up to 12 oz) of clear liquids up until 2 hours prior to my arrival time. Clear liquids include water, fruit juices without pulp, carbonated beverages (i.e. ta arelis), electrolyte beverages (i.e. Gatorade), clear tea and black coffee, clear broth, popsicles and jello. (No milk). No alcohol the day before or day of surgery. MEDICATION STOPPAGE: Unless my surgeon tells me differently, I will STOP THESE MEDICATIONS 7 DAYS PRIOR TO SURGERY: (Motrin/ibuprofen/Naproxen/Aleve/Advil), Aspirin, vitamin E, herbal medications, diet pills, and [id number] medications. Tylenol (acetaminophen) is okay. I will not wear jewelry, body piercing(s), makeup, nail mozambican, hairpins, or contacts on the day ofsurgery. I am to leave valuables and money at home or with family members. If I am prescribed inhalers for breathing, I will use them and bring them to the hospital. Medication(s) to be taken on the morning of surgery with a few sips of water: If I am taking any of the following blood thinning medications - Aspirin, clopidogrel (Plavix), ticagrelor (Brilinta), prasugrel (Efficient), ticlodipine (Ticlid), warfarin (Coumadin), dibigatran (Pradaxa) or rivaroxaban (Xarelto) - I will discuss whether or not I should stop them before surgery with my surgeon. Discuss medication changes with your research program manager or primary care physician as well. If I stopped taking my blood-thinning medication, I will ask the surgeon when to resume taking it. If I am an outpatient, a responsible person will drive me home and it was suggested that someone stay with me for 24 hours. I understand that a bus assistant or cabdriver is NOT a responsible caregiver. Patients with diabetes,I will not take my morning diabetes medication (pills) on the morning of surgery. If I am on insulin, someone has gone over those instructions with me for the morning of surgery. I understand if my surgery is delayed, I will notify the check in desk that I have diabetes. See the Diabetic GuidelinesBefore Surgery in the patient education section. If I have Obstructive Sleep Apnea and use a CPAP/BiPAP machine, I will bring my mask, tubing, and machine with me on the day of surgery. PREOP INSTRUCTIONS THE DAY OF SURGERY/CHECK IN Report to DESK J1-9 for surgery. A map is located in Your Surgical Guide Book. The online version of the surgical guide book can be found at: [email or web address] The address is [address] [place] [address]/[place] [address] INFECTION PREVENTION Please notify your doctor if you have any signs of an infection (i.e. fever, severe cough, nasal congestion, pain with urination, abnormal vaginal discharge, diarrhea, etc). Your surgeon will let you know if a bowel prep is needed before your surgery. If so, please see theattached instructions. Shower the night before surgery AND the morning of surgery with Hibiclens (provided by your surgeon). If you are allergic to Hibiclens or unable to obtain the Hibiclens, please wash with antibacterial soap. Wash your body from the neck down, focusing on your abdomen, belly button and external genitalia. Do not forget to scrub any skin folds and creases. No lotions, oils, creams, or powders after your shower. Underarm deodorant is okay. No shaving (abdominal or pubic hair) or douching the day before surgery. You may be asked to apply an antiseptic solution called Chlorhexidine Gluconate (CHG) which will beprovided to you on arrival to the preop area. Hand washing is extremely important in preventing infection (for both you as the patient and for the caregivers). HOSPITALIZATION Before you leave the hospital, you typically need to be able to eat/drink, urinate, and have your pain controlled with oral medication. Your surgeon or other members of your surgeon s team will discuss any other specific medical issues related to your discharge with you. Your surgeon may order intermittent compression sleeves. These are massaging leg pumps to help prevent blood clots after surgery. See Your Surgical Guide Book for more information. It is also very important that you walk as soon as possible and as frequently as possible after surgery. This will help decrease your risk of blood clots, exercise your lungs and speed up your recovery after surgery. If you are admitted to the hospital overnight, you will be given an incentive spirometer, which is a breathing machine that will help make sure that you are taking deep breaths and expanding your lungs while in the hospital. See Your Surgical Guide Book for more information. [facility] At the [facility], we have a multidisciplinary team of caregivers that includes fellows, residents, nurse practitioners, physician assistants, clinical nurse specialists, nurses, medical assistants, patient care nursing assistants, social workers, field nurse case manager and many others. We all have different roles and responsibilities but we are all here to help. MINIMALLY INVASIVE LAPAROSCOPY POSTOPERATIVE INSTRUCTIONS ACTIVITY * No heavy lifting/pushing/pulling for 4-6 weeks. Do not lift anything more than 10 lbs (such as laundry, groceries, children, pets), vacuum, push heavy doors or grocery carts, etc, for 4-6 weeks. * You may climb stairs as tolerated. * Do not put anything in the vagina for 2 weeks after surgery unless otherwise instructed by your doctor (including tampons, douching, sexual intercourse, etc). * No driving for 1 week after surgery and not while taking narcotic pain medication. Drive defensively when you are ready. * Avoid sitting or lying in bed for more than 2 hours at a time while you are awake to reduce your risk of blood clots. * You may return to work when you are ready as long as you do not lift more than 10 pounds for 4-6 weeks. If you have a sedentary job or alteration workroom supervisor 1-2 weeks before returning to work is appropriate. You may return to work in 2-4 weeks if your job requires a lot of movement. Please contact your doctor if you need any return to work letters or medical leave paperwork to be completed. WOUND CARE * You will have small incisions on your abdomen. There will be dissolvable stitches under your skinthat do not need to be removed. If you have a piece of gauze with a clear bandage over your belly button, please remove that the day after surgery when you shower. If you have steri-strips (paper tape) on the incisions, these may be removed in about 1-2 weeks. It is OK to remove them if they are falling off. If skin glue is present, leave in place for at least 2 weeks. * Shower daily after surgery. Clean your incision with mild antibacterial soap and water. Pat your incision dry with a clean towel. No tub baths or swimming pools for 2-4 weeks or until wound is completely healed. * No ointments or antibacterial creams are required for incisions. Do NOT use cleansing agents likealcohol or hydrogen peroxide. * Wash your hands frequently, especially before touching your incision or changing any dressings. PAIN MANAGEMENT * Take your oral pain medication as needed. * Alternate Tylenol and ibuprofen/Motrin (if you are eligible). Each of these medications can be taken every six hours. Try to stagger them so that you are taking something for pain every three hours(ex. Take Motrin at 12:00, Tylenol at 3:00, Motrin at 6:00, etc.) to maximize pain relief. You should be taking 600mg of ibuprofen every 6 hours. You should be taking 650mg of tylenol every 6 hours. You should take every 6 hours with staggering and alternating. For example. 9am - ibuprofen 12pm - tylenol 3pm - ibuprofen 6pm - tylenol 9pm - ibuprofen 12am - tylenol 3am - ibuprofen 6am - tylenol Studies show this is as effective as narcotics for pain control without the side effects. * The maximum dose of Tylenol is 3000 mg in 24 hours, the maximum dose of Motrin/ibuprofen is 2400mg in 24 hours * Some pain medications can cause constipation. We recommend a stool softener (i.e. Colace) while you take these medications. * You may also take milk of magnesia or Miralax for constipation as directed on the bottle. * There is a risk for addiction with narcotic pain medication, so take with caution and do not takemore than the recommended amount. * Please be sure to dispose of leftover pain medication after you have recovered. You may dispose of unused narcotic medications in the trash with an unpleasant substance such as coffee grounds or cat litter or you can turn them in to a designated law enforcement/pharmacy narcotic box. You can alsocheck FDA.gov to assess which medications can be safely flushed down the toilet. * There are locations to dispose of unused medications at three [facility] locations: [place] [facility], [facility], and the [facility] [place] [facility] (inside the parking garage on the first floor). WHAT TO EXPECT AT HOME * Recovery from surgery is generally 2-4 weeks, but sometimes longer for more strenuous activity. It is normal to be very tired during this time. * It is normal to have some drainage or a small amount of vaginal bleeding after surgery that wouldrequire the use of a light pantiliner. This discharge may last up to 6 weeks. The bleeding and discharge should be light and should have no odor. * You may experience gas pain, abdominal swelling, or shoulder pain for 24-72 hours after surgery. This is from the carbon dioxide gas put into your abdomen to better visualize your organs. A warm shower, heating pad, and/or walking may help. One of our nurses will be calling you 1 to 3 days after surgery to check on you. WHEN TO CALL YOUR DOCTOR: * Fever (>100.4 F or 38.0 C) or chills. * Incision problems such as redness, warmth, swelling, or foul smelling drainage. * Severe nausea or persistent vomiting. * Bright red vaginal bleeding (soaking >1 pad/hour) or foul smelling vaginal drainage. * IT IS NORMAL TO HAVE A MINIMAL AMOUNT OF VAGINAL SPOTTING OR VAGINAL DISCHARGE FOR SEVERAL WEEKS * Severe pain not relieved with pain medication. * Pain and swelling in your legs, especially if it is only on one side. * Pain with urination, cloudy urine, or foul smelling urine. * Severe redness/irritation at sites where adhesive bandages were applied. * Or if you have any other problems or questions. FREQUENTLY ASKED QUESTIONS/CONCERNS: Constipation Constipation is common and it is normal to not have a bowel movement for up to one week after surgery. You should still be passing gas despite constipation and should be able to tolerate both liquid and solid food without nausea or vomiting. Concerning symptoms would be constipation without gas, with fever, or nausea/vomiting and inabilityto eat. Call your doctor if these symptoms occur. Over the counter stool softeners including Senna twice daily and Miralax up to twice daily can helpwith constipation. 1. Senna (1 capsule) two times a day 2. Miralax (polyethylene glycol) 17 g (1 measured capful or 1 packet) once a day. If you have not had a bowel movement 3 days after surgery, you may take the Miralax two times a day. If you have any discomfort because of the need to have a bowel movement, you may add milk of magnesia or magnesium citrate (available at your local pharmacy without a prescription) at any time. Do not take milk of magnesia or magnesium citrate if you have kidney failure. If you have loose or watery stools, stop taking the medications. Call your doctor s office if you have questions. Drainage from incisions Clear/pink drainage or a minimal amount of bleeding from incisions can be normal after laparoscopicsurgery. Concerning drainage that is persistent, thick/cloudy, or foul smelling can be an indication of infection and should prompt you to call your doctor. Post-operative pain Pain after surgery is a challenging part of the healing process. Pain may be present for weeks but should gradually get better. Increasing pain or pain that is unbearable warrants evaluation by your doctor or in the emergency department. By state law we cannot immediately provide narcotic pain medication over the phone. Stitches If 2 weeks have passed and you have a visible stitch at a laparoscopic incision site it is OK for you to cut it to remove it. CALL 911 OR GO TO THE EMERGENCY ROOM IF YOU HAVE: Any shortness of breath, difficulty breathing, orchest pain. IF YOU FEEL YOU NEED TO GO TO THE EMERGENCY DEPARTMENT POST OPERATIVELY, WE RECOMMEND THE [facility] EMERGENCY DEPARTMENT FOR CONTINUITY OF CARE AND THE BEST ACCESS TO ONE OF THE SURGEONS ON OUR TEAM. Address: [address] [place] [address] documented in this [facility] History of Present illness Narrative* Mouna Grier LPN - 03/02/2024 3:25 PM EDT DATE OF SERVICE: 03/04/2024 PROBLEM: Mikayla Blunt presents for pre-op teaching. PRE-OP DIAGNOSIS: unwanted fertility SCHEDULED SURGERY AND DATE: 03-09-24 [facility] LAPAROSCOPIC SALPINGECTOMY PRIMARY SURGEON: Abi Teixeira DO NURSING PREOP ASSESSMENT: Fevers, chills, cough, or nasal congestion: No Vaginal itching, burning, discharge, or odor: No Pain with urination, frequency, urgency, cloudy or foul smelling urine: No If yes to any of the above then MD notified: Not Applicable ADVANCED CARE PLANNING: Does the patient have an advanced directive: No Does [facility] have a copy of the patient's advanced directive: No Was advanced directive given to the patient: No PATIENT LEARNING ASSESSMENT: Individual patient/family learning needs evaluated and addressed: Yes Cognitive ability: Alert and oriented Motivation to learn: Interested Factors affecting learning: None Physical limitations affecting learning: None Patient learns best by: Multiple Methods Method of instruction: Individual instruction Instructions provided to: Patient via telephone. Written material provided prior to education appointment. Family support: High - Very involved in pt care PRE- AND POST-OPERATIVE TEACHING Pre-operative teaching and supplemental material provided and reviewed with patient: Written pre-opand post-op instructions Antibacterial soap: patient will buy Pre-operative instructions provided and reviewed with patient/family: No eating, drinking, or smoking after midnight prior to surgery unless otherwise directed No alcohol the day before surgery Medications as prescribed by anesthesia, internal medicine, surgeon, or LEAD JAVA DEVELOPER ARCHITECT Stop NSAIDs, Aspirin (ASA), vitamins, herbal supplements, herbal teas, and diet pills 7-10 days prior to surgery OK to take tylenol prn pain unless otherwise directed by physician Call surgery coordinators if any other questions about surgery date or pre-op appointments Bowel prep instructions: NPO after midnight Day of surgery instructions provided and reviewed with patient/family: Arrival time (call surgical coordinators on the office day prior to surgery for verification) No jewelry, body piercing, makeup, contacts, lotions, nail mozambican on fingers, or anything in hair on arrival to surgery Wear low healed shoes and loose fitting clothing Leave all valuables at home or with a family member Directions to [facility] Parking/parking validation on the day prior to surgery Admission/check in (Report to DESK J1-9 for surgery) Holding area Placement of IV Surgical positioning Family waiting area Surgical recovery room Post-operative instructions provided and reviewed with patient/family: SEE PATIENT INSTRUCTION SECTION FOR DETAILS. SYMPTOMS TO NOTIFY MD - Fever, chills, nausea, vomiting, increased or severe pain, heavy vaginal bleeding, foul smelling vaginal drainage, pain or swelling in extremities. URGENT SYMPTOMS - Call 911 or go to ER if any shortness of breath, difficulty breathing, or chest pain. HOW TO CONTACT PHYSICIAN - Physician's office phone number given to patient, if after hours patientinstructed to call shoelace tipping machine operator and ask for instrument and controls technician major gifts officer resident. EVELYN program offered to patient: Yes Additional teaching as indicated by patient/family learning needs. PATIENT LEARNING EVALUATION & FOLLOW UP PLAN: Patient and/or family express understanding of upcoming surgery, pre-operative preparation, the operative process, and post-operative instructions. Follow up plan: Patient instructed to call with any further issues Patient has a post-op appointment scheduled: 03-22-24 at 4pm with May Frias (video) Referral (recommentation): None Educator: Mouna Grier LPN [facility] documented in this encounterMartin [facility] Hospital08-27-[facility] History of Present illness Narrative* Adela Armas APRN.CNP - 03/02/2024 2:46 PM EDT Encounter Diagnosis ICD-10-CM 1. Preoperative examination Z01.818 TYPE AND SCREEN,30 DAY COMPLETE BLOOD COUNT Adela Armas APRN.CNP March 02, 2024 2:47 PM documented in this encounterMartin [facility] Hospital08-27-[facility]24 Telephone encounter Note * Telephone Encounter - Luz Conrad V, RN - 03/02/2024 10:44 AM EDT . [facility]08-27-[facility]24 Miscellaneous Notes* Telephone Encounter - Luz Conrad V, RN - 03/02/2024 10:44 AM EDT . * Telephone Encounter - Luz Conrad V, RN - 03/02/2024 10:07 AM EDT I called [facility] and confirmed that neither the famotidine nor the gabapentin were received, despite being sent via e-script yesterday to that pharmacy. Please refill and send to the [facility] as requested. Requested Prescriptions Pending Prescriptions Disp Refills famotidine (PEPCID) 20 mg tablet 60 tablet 5 Sig: Take 1 tablet by mouth two times a day. gabapentin (NEURONTIN) 100 mg capsule 150 capsule 5 Sig: Take 100mg twice a day and 300mg at bedtime. Please review and advise. Luz Conrad RN Name of ordering provider: Dr. Tamayo HANNA: 03/01/2024 [facility]: Visit date not found NOV: 03/02/2024 [facility]: visit date not found Spoke with patient - confirmed patient is requesting refill. Yes Has patient been seen within the year? Yes Pharmacy updated: Yes documented in this encounterMartin [facility] Hospital08-27-[facility]24 Telephone encounter Note * Telephone Encounter - Luz Conrad V, RN - 03/02/2024 10:07 AM EDT I called [facility] and confirmed that neither the famotidine nor the gabapentin were received, despite being sent via e-script yesterday to that pharmacy. Please refill and send to the [facility] as requested. Requested Prescriptions Pending Prescriptions Disp Refills famotidine (PEPCID) 20 mg tablet 60 tablet 5 Sig: Take 1 tablet by mouth two times a day. gabapentin (NEURONTIN) 100 mg capsule 150 capsule 5 Sig: Take 100mg twice a day and 300mg at bedtime. Please review and advise. Luz Conrad RN Name of ordering provider: Dr. Tamayo HANNA: 03/01/2024 [facility]: Visit date not found NOV: 03/02/2024 [facility]: visit date not found Spoke with patient - confirmed patient is requesting refill. Yes Has patient been seen within the year? Yes Pharmacy updated: Yes [facility]08[facility] Telephone encounter Note* Telephone Encounter - Michelle Carreon RN - 03/02/2024 9:18 AM EDT Please call and schedule patient for follow up virtual or in person appointment with Dustin Tamayo D.O. the last week in March or close to that date in the [facility] for ongoing discussion of plan of care and results review if available. [facility] Telephone encounter Note* Telephone Encounter - Luz Hickman RN - 03/01/2024 11:29 AM EDT PA for Ibsrela submitted electronically via [employer] (Chinchilla: [id number].) Received Response from [employer], RE: [facility] does not handle this review, submit through [employer]. PA submitted on [employer]. Awaiting response from [employer] PA (EOC) ID: [id number] BIN: [id number] PCN: [id number] ID: [id number] EOC ID: [id number] Tried/failed: Linzess Nov, 2023-current Lactulose October,, ineffective Senna October,-January,, ineffective Colace, October,, ineffective Miralax: October,-current, ineffective [facility]08-[facility] Miscellaneous Notes* Telephone Encounter - Luz Hickman RN - 03/01/2024 11:29 AM EDT PA for Ibsrela submitted electronically via [employer] (Chinchilla: [id number].) Received Response from [employer], RE: [facility] does not handle this review, submit through [employer]. PA submitted on [employer]. Awaiting response from [employer]Likelii PA (EOC) ID: [id number] BIN: [id number] PCN: [id number] ID: [id number] EOC ID: [id number] Tried/failed: Linzess Nov, 2023-current Lactulose October,, ineffective Senna October,-January,, ineffective Colace, October,, ineffective Miralax: October,-current, ineffective documented in this encounterMartin Memorial Hospital08-26-2024 History of Present illness Narrative* Tamayo Dustin Colette, - 03/01/2024 10:00 AM EDT GASTROPARESIS CONSULT Patient is referred by Dr. Carly Callejas for an opinion regarding GP and my final recommendations will be communicated back to the requesting physician by way of a copy of today's office notes. PRESENTING COMPLAINT & HISTORY Mikayla is a 23 yr old female w/hx of chronic sinusitis, epilepsy, GERD, autoimmune gastritis, HTN, narcolepsy, and POTS that had an abnormal gastric emptying study 01/2024 showing 81% retention at 4 hours. Stomach issues started around age 18 yrs. The symptoms started in HS with sudden onset of vomiting. She went gluten free which helped for years.Severity of symptoms has increased significantly over the past 2-2.5 yrs. Recently admitted to [facility] 01/30/24-02/06/2024 for gastroparesis, nausea/vomiting/abdominal pain, liver hemangioma, constipation, mild protein calorie malnutrition. Abdominal pain worse with eating. Constipation with average bm 3-4 x per week on daily Linzess and Miralax 3-4 x per week. Can go up to 9-10 days without a bm without medication. C/o severe stomach fullness,early satiety, and lack of appetite. Diet: [place] Instant Breakfast, jello, soft foods - apple sauce, mac and cheese and tactor tots. Prn Zofran for N/V. Allergic to Reglan. Completed 2 week course of erythromycin - didn't notice much difference. The constipation is lifelong. The linzess 290 hasnot been effective and she is relying on miralax regularly. Patient is interested in learning more about EMPTIES Trial: No Patient is a candidate for EMPTIES Trial: No Gastrointestinal Symptoms Reflux/heartburn: Yes GERD; Pepcid Abdominal pain/discomfort: Yes continuous abdominal pain that is mid upper abdominal and RUQ. Pain is worse with eating. Weight loss: Yes Lost 8 lbs in 5 days while admitted; discharged Do you have less than 3 bowel movements per week? No Diarrhea: No Constipation: Yes on average has a bm 3-4 x per week on Linzess (daily) and Miralax (3-4 x per week). Without medications has gone up to 9-10 days without a bm. Hx of ileus. Malnutrition: No Gastroparesis Cardinal Symptom Index (CGSI) 1. Nausea: 4 2. Retchin 3. Vomitin 4. Stomach fullness: 4 5. Not able to finish a normal-sized meal: 5 6. Feeling excessively full after meals: 5 7. Loss of appetite: 3 8. Bloating (feeling like you need to loosen your clothes): 1 9. Stomach or belly visibly larger: 0 CGSI Score: 2.53 Scale (0-none; 1-very mild; 2-mild; 3-moderate; 4-severe; 5-very severe) MEDICATION HISTORY Promotility Drugs - Reglan (Metoclopramide): allergic to most antiemetics so never tried; family has allergy to Reglan - Gimoti (Metoclopramide nasal): No - Motilium (Domperidone): No - Erythromycin (E-mycin): Yes finished a course of treatment a week ago, unsure if it helped. - Propulsid (Cisapride)_: no Other - Tricyclic Antidepressants (nortriptyline - Pamelor; amitriptyline - Elavil): No - Buspirone (Buspar): No - Mirtazapin (Remeron): No Anti-Nausea Medications - Compazine (Prochlorperazine): adverse reaction - Phenergan (Promethazine): No - Benadryl (Diphenhydramine): No - Zofran (Ondansetron): Yes prn - Scopace (Scopolamine Patch): no - Granisetron (Kytril or Sancuso): no - Tigan (Trimethobenzamide)_: allergic GLP-1 Receptor Agonists (for Diabetes or Weight loss): No Constipation Medications - Bulking Agents (Metamucil,Citrucel, Fibercon): No - Osmotic Laxatives (MOM, Polyethylene glycol (PEG), lactulose, sorbitol,MiraLax, Chronulal, Cephulac,Xylitol): Yes Miralax 3-4 x per week - Stimulant Laxatives (Ex-Lax, Senokot,Correctol, Dulcolax): in the past tried Senna - Stool Softeners (Colace): No - Chloride Channel Activator (Amitiza): No - Linzess: Yes daily - Trulance: No - Motegrity: No Pain Medications - Does the patient see a paint roller assembler for chronic abdominal pain?No - Is the patient taking narcotic pain medication for chronic abdominal pain? No - Narcotic Medications: (Tramadol, Fentanyl, codeine, hydrocodone, Hydromorphone, methadone, morphine, Oxycodone) No takes Gabapentin Drug use - History or current drug use (Marijuana, Cocaine, Heroine, etc...) No Eating Disorders - Does the patient have a history of eating disorders No Psychiatric Disorders - Does the patient have a history of psychiatric disorders including PTSD: No Nutrition - Has the patient met with a laborer landscape for diet recommendations with Gastroparesis? Yes - Jejunostomy (J-tube): _No - Gastrostomy (G-tube): No - Gastro-Jejunostomy (GJ-tube): _No - Nasojejunal (NJ-tube): _No - Nasogastric (NG-tube): _No - TPN (IV): _No - IV home hydration (IV): _No Medical Records - Has the patient had a smart capsule study completed? No - Does the patient have a history of any foregut surgery (vagotomy, hiatal hernia repair/CORINE Fundoplication, Heller Myotomy, gastrectomy, gastric bypass)?No If surgery, recent UGI? No - EGD: Yes - Botox Injections: No Patient Name Mikayla Blunt Age [age] year old Gastroparesis Consult Test Date Completed Results Labs EGD 09/22/2023 Impression: - Normal esophagus. - Normal stomach. Gastric mapping for autoimmune gastritis: antrum lesser curvature, antral greatercurvature, body lesser curvature, body greater curvature, and incisura. - Normal examined duodenum. EGD 11/04/2022 Impression: - Normal examined duodenum. Biopsied. - Gastritis. Biopsied. - Z-line irregular, 38 cm from the incisors. Biopsied. - Small hiatal hernia. Gastric Emptying Study 02/03/2024 [facility] IMPRESSION: Findings of very severe gastroparesis (>50% gastric retention at 4 hours). RESULTS: Calculated solid meal (or solid meal equivalent) gastric retention values: * 95% retention at 1 hour (normal range, 37-90%; accelerated emptying is defined as <30% at 1 hour) * 92% retention at 2 hours (normal range, <60%) * 81% retention at 4 hours (normal range, <10%) CT Abd/Pelvis 01/27/2024 [facility] IMPRESSION: No CT evidence of acute abnormality. US Abd Right Upper Quadrant 01/30/24 IMPRESSION: Echogenic hepatic mass measuring 6.4 x 2.9 x 4.3 cm. This was previously assessed on the MRI/CT. Please see previous reports. Repeat MRI examination may be obtained, as warranted. Small amount of gallbladder sludge. No evidence of cholelithiasis or acute cholecystitis. PAST SURGICAL HISTORY 2011: DENTAL SURGERY HX Comment: Simple extraction of primary teeth #A, #B, #C, #H, #I, #J, #M, #N, and #R. 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; Right Comment: [facility] 11/21/2003: PAST SURGICAL HISTORY OF Comment: tear duct surgery bilateral 05/2022: PAST SURGICAL HISTORY OF Comment: Correction of second, third, and fourth toes, left foot 02/12/2010: REMOVE TONSIL AND ADENOI UNDER AGE 14 Current Outpatient Medications Medication Sig Dispense Refill linaCLOtide (LINZESS) 290 mcg capsule Take 1 capsule by mouth daily at 6 am. 30 capsule 2 gabapentin (NEURONTIN) 100 mg capsule Take 1 capsule by mouth three times a day for 30 days. 90 capsule 0 ondansetron orally disintegrating (ZOFRAN ODT) 4 mg disintegrating tablet Take 1 tablet by mouth every 8 hours as needed for nausea/vomiting. 90 tablet 0 famotidine (PEPCID) 20 mg tablet Take 1 tablet by mouth two times a day. 60 tablet 0 potassium chloride SR (MICRO-K) 10 mEq CR capsule Take by mouth. polyethylene glycol 3350 17 gram packet Take 1 Packet by mouth once daily. Dissolve dose in 4 - 8 ounces of liquid and take as directed. propranolol ER (INDERAL LA) 60 mg 24 hr capsule Take 1 capsule by mouth once daily. 90 capsule 3 methylphenidate ER (CONCERTA) 18 mg biphasic tablet Take 1 tablet by mouth every morning for 30 days. 30 tablet 0 albuterol HFA (PROVENTIL HFA, VENTOLIN HFA) 90 mcg/actuation inhaler Inhale 2 Puffs as instructed every 4 hours as needed. 18 g 4 loratadine (CLARITIN) 10 mg tablet Take 10 mg by mouth once daily. MULTIVITAMIN ORAL Take 1 tablet by mouth once daily. No current facility-administered medications for this visit. ALLERGIES Allergen Reactions Cefdinir Swelling Hydrocodone-Acetami* Swelling Latex Swelling Penicillins Rash Benadryl [Diphenhyd* Mental Status Change agitation Droperidol Other: See Comments akathesia Compazine [Prochlor* Intolerance Restlessness, agitation Gluten GI Upset Versed [Midazolam H* Mental Status Change Pulling out IV's, extremely confused and restless, getting on hands and knees Family History Problem Relation Age of Onset Graves Disease Mother Heart Mother SVT Allergies Father Asthma Brother Allergies Maternal Grandmother Hypertension Maternal Grandfather Allergies Maternal Grandfather Heart Maternal Grandfather mat side/pat side Breast Cancer Paternal Grandmother No Known Problems Paternal Grandfather Social History Tobacco Use Smoking status: Never Passive exposure: Never Smokeless tobacco: Never Vaping Use Vaping status: Never Used Substance Use Topics Alcohol use: No Drug use: No GI SPECIFIC ROS Difficulty swallowing / foods sticking in throat: No Hoarseness: No Chronic cough: No Regurgitation: Yes Chest pain: No Recent change in bowel movements: No Bloody or black, bowel movements: No Loss of control of bowel movements: No Night sweats, fever, chills: No Thought or memory problems: No Fluid in abdomen (ascites): No Prominent leg swelling: No Vomiting blood: No REVIEW OF SYSTEMS GENERAL: Weight loss HEENT: Negative for frequent or significant headaches RESPIRATORY: Negative for cough, hemoptysis, wheezing, COPD, dyspnea or shortness of breath CARDIOVASCULAR: See HPI : No history of dysuria, frequency or incontinence LINING CUTTER: Negative for abnormal vaginal bleeding, abnormal vaginal discharge MUSCULOSKELETAL: Negative for joint pain or swelling, back pain or muscle pain SKIN: Negative for lesions, rash, and itching PSYCH: sleep fragmented ENDOCRINE: Negative for cold or heat intolerance, polyuria, polydipsia and goiter NEURO: SEE HPI PHYSICAL EXAMINATION LMP 01/25/2024 General appearance: well appearing, alert, in no acute distress, and well- hydrated, well nourished Skin: Skin color, texture, turgor normal, no suspicious rashes or lesions Head: normal Eyes: Anicteric sclera. Pupils are equally round and reactive to light. Extraocular movements are intact. Ears: external ears normal, canals clear, TM's normal Nose/Sinuses: Negative Oropharynx: Lips, mucosa, and tongue normal, teeth and gums normal, oropharynx normal Neck: Supple, no adenopathy; thyroid symmetric, normal size, no bruits Back: no pain to palpation over spine or costovertebral angles, reflexes are 2+ and symmetric, motor and sensory appear to be normal Lungs: lungs clear to auscultation no wheezing or rhonchi Heart: RRR without murmur, gallop, or rubs. No ectopy Abdomen: Normal abdominal exam, Abdomen soft, non-tender. Bowel sounds normal. No masses, organomegaly Extremities: Extremities normal. No deformities, edema, or skin discoloration. Good capillary refill. Musculoskeletal: Spine range of motion normal. Muscular strength intact Peripheral pulses: Normal Neuro: Negative findings: speech normal, mental status intact, cranial nerves 2- 12 intact Plan Given the risk of autoimmune gastrointestinal dysmotility (AGID) as a possible cause for this patient's symptoms, as well as the fact the patient has yet to be evaluated for AGID, a full workup will be undertaken. If the antibody tests reveal a positive result the patient will then need to be treated with IVIG therapy as this is the only known treatment available at this time for AGID. Encounter Diagnosis ICD-10-CM 1. Gastroparesis K31.84 CREATINE KINASE/CK LACTATE DEHYDROGENASE HEMOGLOBIN A1C THYROID STIMULATING HORMONE T4 FREE/FREE THYROXINE PYRUVATE+LACTATE BL AMINO ACIDS, PLASMA W/ CONSULTATION CARNITINE FREE AND TOTAL, PLASMA ACETYLCHOLINE REC BINDING AB VOLTAGE GATED CA IGG VOLTAGE-GATED POTASSIUM RAY AB GLUTAMIC AC DECARBOXYLASE AB ORGANIC ACIDS UR, QUANT W/CONSULTATION IMMUNOGLOBULIN A IMMUNOGLOBULIN G IMMUNOGLOBULIN M C-REACTIVE PROTEIN SEDIMENTATION RATE, [facility] 13, SERUM ESTROGEN FRACTION BL pyridostigmine (MESTINON) 60 mg tablet EGD - THERAPEUTIC, EUS, OR TUBE INTERVENTIONS 2. Irritable bowel syndrome with constipation K58.1 tenapanor (IBSRELA) 50 mg tablet 3. IBD (inflammatory bowel disease) K52.9 EGD - THERAPEUTIC, EUS, OR TUBE INTERVENTIONS Dustin Tamayo DO 02/24/2024 documented in this encounterMartin [facility]08-[facility] Nurse Note* Grecia Brush RN - 03/01/2024 9:45 AM EDT GG completed. Able to drink 300 ml of water. [facility] Nurse Note* Grecia Brush RN - 03/01/2024 9:45 AM EDT GG completed. Able to drink 300 ml of water. documented in this encounterMartin [facility]08-23-2024 History of Present illness Narrative* Abi Teixeira DO - 02/27/2024 11:30 AM EDT Images from the original note were not included. [facility] [place] SECTION FOR MINIMALLY INVASIVE GYNECOLOGIC SURGERY OUTPATIENT VISIT DATE 02/27/2024 OUTPATIENT VISIT TYPE ESTABLISHED PRIMARY CARE PHYSICIAN: [place] [address] CHIEF COMPLAINT: Sterilization request HISTORY OF PRESENT ILLNESS: Mikayla Blunt is a pleasant 23 year old female who presents for management of tubal sterilization with a PMHx significant for gastritis, POTS, narcolepsy, and epilepsy. She was last seen in clinic on 01/05/2024 with May Frias APRN.CNP. At that time, she presentedfor consult. The plan at her last visit included: - Will discuss her desires with Dr. Teixeira and reach out accordingly Updates: -Greatly desires l/s bilateral salpingectomy for tubal ligation. She reports being 100% certain shedoes not desire future . -Getting in Nov -She was told it would be life threatening to get . Saw an MFM on 12/09/23. -She is not on anything for control currently. History of liver hemangiomas, not a candidate for estrogen containing options. She has not had any abdominal surgeries She has delayed emergence from anesthesia She has reactions to many medications She has had a postop ileus after a foot surgery [facility] consult 12/09/23: She was recently admitted to [facility] 09/17/23-09/25/23 due to intractable nausea/vomiting. Work up showed gastroparesis, hepatobiliary dysfunction, autoimmune gastritis. In terms of her seizure disorder, her last seizure was at age 18, she has been off medication [id number] with reassuring EEG since then, and has been cleared for activities including driving. 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 She has POTS, diagnosed 2016. Has required IV fluids in past, likely worsened by aforementioned GI concerns which can cause dehydration. Also has been diagnosed with chronic hypertension which was initially noted at age 19 on admission for nausea/vomiting. Renal imaging normal, labs followed without clinical concern for secondary hypertension (Pediatric nephrology evaluation 04/2020). She had echocardiogram that admission (04/12/2020) which was unremarkable. She takes propranolol 60mg daily. She has narcolepsy and takes concerta daily which is very important to her high functioning. She reports missing one dose recently where she slept for several hours with extreme fatigue. She has known liver lesion consistent with hemangioma measuring 3.8 x 2.8 cm on MRI in 2022. She also expresses concern over family obstetric history. In particular, women in her family (mother, aunts) have experienced early pelvic organ prolapse. In her mother's case she required hysterectomy in her early 30s due to severe pelvic organ prolapse. She also notes family history of miscarriage and labors. Assessment and Plan: 23 year old G0 here for preconception consult due to multiple medical complications including history of epilepsy, history chronic hypertension, history POTS, migraines, narcolepsy, GERD, gastroparesis, recent history autoimmune gastritis, liver hemangioma. She is unsure regarding her desire to conceive however not on long-term contraception and getting late this year. Plans to most likely use barrier method although open to a non-hormonal option, we did discuss LARC options which she can seek through her radiologic technologist team. We discussed her concern/family history of severe pelvic organ prolapse, as well as reported history of childhood fractures and significant dysautonomia. I believe she may benefit from evaluation forcollagen vascular disorder. She denies extensibility or skin differences however. History does not sound concerning for a vascular type of disorder however this would greatly impact her prognosis so will refer to EDS team to evaluate, as she has a large array of conditions with no unifying diagnosis including dysautonomia, gastroparesis, reporting history childhood fractures (none recently), as well as significant family history of pelvic organ prolapse with child bearing. While unclear from available medical literature, I would assume she has risk for pelvic organ prolapse complications in given strong family history. We discussed that while quality data on and POTS are limited, the available literature suggests is safe for people with POTS and we anticipate a favorable outcome. Some patients feel better during from POTS standpoint likely related to increased blood volume. We did discuss possible correlation in some studies of beta blockers with growth restriction, growth will be assessed serially due to hypertension. Recommended she avoid triggers and continue medication as needed. Discussed liver hemangiomas need to be monitored closely in . There are case reports of bleeding/rupture of liver hemangiomas in with extremely poor outcomes. However many patientswith liver hemangiomas remain stable in . She should see hepatology and/or GI preconception if she strongly desires . She will also need close follow up with her GI team for gastroparesis and constipation, which are likely to worsen in . Progesterone slows GI motility andmay cause significant symptoms during a potential . While this is not an absolute contraindication to conceiving, it may make very difficult for her, and require alternative modes of nutrition such as enteral or parenteral nutrition to support a . She may have significant gastrointestinal symptoms in . This may not immediately/acutely threaten Mikayla or a fetus, but may severely limit her quality of life. There are limited quality data sources regarding autoimmune gastritis in , however nutrient supplementation likely benefits and nutrition labs should be monitored at least qtrimester with supplementation as indicated, in close conjunction with her GI team. The risks of hypertension in include (but are not limited to) preeclampsia/eclampsia, endorgan complications, CVA, growth restriction, stillbirth and need for premature delivery. Should she decide to conceive, baseline assessment of kidney, liver and cardiac function are recommended: ECG (echocardiogram if LVH identified), CMP, CBC and urine protein. She should see MFM at time of12-14 week ultrasound if she conceives for consultation to review monitoring. Summary of Recommendations: Problem List Items Addressed This Visit Neurology Primary narcolepsy without cataplexy Current Assessment & Plan Daily amphetamine with good function Discussed risks/benefits/alternatives from perspective Can consider in at medical doses if needed for function, risk to fetus uncertain but likely not as high as reported risk for illicit amphetamine use Epilepsy (HCC) Overview electrical status epilepticus during sleep (ESES) off AEDs since 2017 Current Assessment & Plan Given off AEDs since 2018 would anticipate good outcome Discussed risks of seizure disorder in , many medications are safe Recommend vitamin with folic acid preconception Cardiovascular Elevated blood pressure reading without diagnosis of hypertension Current Assessment & Plan BP low today but on propranolol Would recommend baby aspirin for preeclampsia risk reduction if can tolerate in POTS (postural orthostatic tachycardia syndrome) Current Assessment & Plan can improve POTS symptoms in short term Some patients do require IV fluids or other interventions Discussed early labor epidural to mediate response to uterine contractions and expectations for If continues propranolol would recommend growth surveillance as some studies show correlationwith FGR Relevant Orders CONSULT TO RHEUM/IMMUN DISEASE CONSULT TO MEDICAL GENETICS - GENERAL Liver hemangioma Overview She has known liver lesion consistent with hemangioma measuring 3.8 x 2.8 cm on MRI in 2022. Current Assessment & Plan Discussed can be estrogen sensitive Case reports of hemorrhage/rupture in with extremely poor outcomes Consider seeing extruder operator regarding hemangioma in preconception context as will need very close monitoring for any signs/symptoms rupture if she conceives Pulmonary Mild intermittent asthma without complication Current Assessment & Plan Albuterol as needed May affect medications given in for HTN or bleeding at delivery Gastrointestinal Chronic superficial gastritis without bleeding (Chronic) Current Assessment & Plan Following with GI at [facility] Drug-induced constipation Current Assessment & Plan Discussed can slow gut motility and worsen gastroparesis and constipation Would require close follow up with GI and may worsen if she conceives Gastroparesis Current Assessment & Plan slows gut motility, may worsen if she conceives Following closely with GI Relevant Orders CONSULT TO RHEUM/IMMUN DISEASE CONSULT TO MEDICAL GENETICS - GENERAL Dr. Serrano 12/11/23 notes below: ASSESSMENT AND PLAN: 23yo female with multiple medical issues who is considering Reviewed 's consult with patient & all questions answered. At this time patient is strongly considering permanent sterilization via bilateral salpingectomy. R/B/A including risks of regret and failure reviewed. Patient is very concerned about how would affect her health &quality of life. She is open to adoption and other ways to have a family. Will refer patient to [facility] as she desires surgery at [facility]. I spent a total of 26 minutes on the date of the service which included preparing to see the patient, [id number] patient care, completing clinical documentation, obtaining and/or reviewing separately obtained history, and counseling and educating the patient/family/caregiver. Lizbet Rider MD IMAGING/LABS: 01/27/2024 CT PELVIS IMPRESSION: No CT evidence of acute abnormality. Hepatic hemangioma unchanged from 10/30/2022. RESULT: Liver: Low-attenuation lesion in segment I with peripheral pooling enhancement unchanged from since 10/30/2022 compatible with a hemangioma. It measures approximately 4.6 x 3.7 cm. Biliary: No bile duct dilation. The gallbladder is unremarkable. Spleen: No mass. No splenomegaly. Pancreas: No mass or duct dilation. Adrenals: No mass. Kidneys: No mass, calculus or hydronephrosis. GI tract: No dilation or wall thickening. The appendix was not visualized. No pericecal inflammatory changes. Lymph nodes: No abdominal or pelvic lymphadenopathy. Mesentery/Peritoneum: No ascites or mass. Retroperitoneum: No mass or enlarged lymph nodes. Vasculature: No abdominal aortic aneurysm. Pelvis: No mass, ascites or fluid collection. The urinary bladder is unremarkable. Bones/Soft Tissues: The bones contain no worrisome lytic or sclerotic lesions. Lower thorax: The lung bases are clear Past Medical History: PAST MEDICAL HISTORY No date: Acquired mallet toe of left foot No date: Chronic sinusitis No date: Delayed emergence from anesthesia No date: Epilepsy (HCC) Comment: electrical status epilepticus during sleep (ESES) off AEDs since 2018 No date: GERD (gastroesophageal reflux disease) 04/11/2020: Hypertension No date: Mild intermittent asthma without complication No date: MT (mallet toe), right No date: Narcolepsy without cataplexy No date: Nonallergic rhinitis No date: PMH - PAST MEDICAL HISTORY OF Comment: seizure No date: POTS (postural orthostatic tachycardia syndrome) Past Surgical History: PAST SURGICAL HISTORY 2012: DENTAL SURGERY HX Comment: Simple extraction of primary teeth #A, #B, #C, #H, #I, #J, #M, #N, and #R. 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; Right Comment: ACH 11/21/2003: PAST SURGICAL HISTORY OF Comment: tear duct surgery bilateral 05/2022: PAST SURGICAL HISTORY OF Comment: Correction of second, third, and fourth toes, left foot 02/12/2010: REMOVE TONSIL AND ADENOI UNDER AGE 14 Family History: FAMILY HISTORY Problem Relation Age of Onset Graves Disease Mother Heart Mother SVT Allergies Father Asthma Brother Allergies Maternal Grandmother Hypertension Maternal Grandfather Allergies Maternal Grandfather Heart Maternal Grandfather mat side/pat side Breast Cancer Paternal Grandmother No Known Problems Paternal Grandfather Social History: Social History Tobacco Use Smoking status: Never Passive exposure: Never Smokeless tobacco: Never Vaping Use Vaping status: Never Used Substance Use Topics Alcohol use: No Drug use: No Current Outpatient Medications Medication Sig linaCLOtide (LINZESS) 290 mcg capsule Take 1 capsule by mouth daily at 6 am. gabapentin (NEURONTIN) 100 mg capsule Take 1 capsule by mouth three times a day for 30 days. ondansetron orally disintegrating (ZOFRAN ODT) 4 mg disintegrating tablet Take 1 tablet by mouth every 8 hours as needed for nausea/vomiting. famotidine (PEPCID) 20 mg tablet Take 1 tablet by mouth two times a day. potassium chloride SR (MICRO-K) 10 mEq CR capsule Take by mouth. polyethylene glycol 3350 17 gram packet Take 1 Packet by mouth once daily. Dissolve dose in 4 - 8 ounces of liquid and take as directed. propranolol ER (INDERAL LA) 60 mg 24 hr capsule Take 1 capsule by mouth once daily. methylphenidate ER (CONCERTA) 18 mg biphasic tablet Take 1 tablet by mouth every morning for 30 days. albuterol HFA (PROVENTIL HFA, VENTOLIN HFA) 90 mcg/actuation inhaler Inhale 2 Puffs as instructed every 4 hours as needed. loratadine (CLARITIN) 10 mg tablet Take 10 mg by mouth once daily. MULTIVITAMIN ORAL Take 1 tablet by mouth once daily. No current facility-administered medications for this visit. Allergies As of Date: 02/27/2024 Allergen Noted Reaction CEFDINIR 08/31/2020 Swelling HYDROCODONE-ACETAMINOPHEN 05/29/2022 Swelling LATEX 03/28/2007 Swelling PENICILLINS 07/23/2005 Rash BENADRYL [DIPHENHYDRAMINE] 09/18/2023 Mental Status Change DROPERIDOL 09/18/2023 Other: See Comments COMPAZINE [PROCHLORPERAZINE] 11/04/2022 Intolerance GLUTEN 04/12/2020 GI Upset VERSED [MIDAZOLAM HCL] 02/03/2012 Mental Status Change Fully Assessed 02/11/2024 REVIEW OF SYSTEMS: POSITIVES IN BOLD Constitutional: Denies fever or chills Eyes: Denies change in visual acuity HENT: Denies nasal congestion or sore throat Respiratory: Denies cough or shortness of breath Cardiovascular: Denies chest pain or edema GI: Denies abdominal pain, nausea, vomiting, bloody stools or diarrhea : Denies dysuria Musculoskeletal: Denies back pain or joint pain Integument: Denies rash Neurologic: Denies headache, focal weakness or sensory changes Endocrine: Denies polyuria or polydipsia Lymphatic: Denies swollen glands Psychiatric: Denies depression or anxiety PHYSICAL EXAMINATION: Vital Signs: There were no vitals filed for this visit. There is no height or weight on file to calculate BMI. General appearance: Well appearing, alert, in no acute distress, well-hydrated, well nourished. Skin: Skin color, texture, turgor normal, no suspicious rashes or lesions IMPRESSION: Mikayla Blunt is a 23 year old female with desire for salpingectomy given her history of POTS, epilepsy, narcolepsy, gastroparesis, chronic gastritis, HTN, liver hemangioma. Presents today to discuss permanent sterilization. Undesired fertility: Discussed hormonal suppression options for contraception. Would not recommend combination methods secondary to liver dz. Discussed progestin IUD. Discussed surgical options including l/s bilateral salpingectomy. Educated this would not allow her to obtain spontaneous .If desired this would require future IVF. Educated re: inc risk of regret in permanent sterilization in women who have not conceived and are <30yo. All questions answered and Mikayla is 100% certain she desires permanent sterilization. PLAN: - Booking request for bilateral salpingectomy - She may require a l/s ezra and is asking about combo procedure- her Gen Surg is in [place]. Educated she can find a LINING CUTTER in [place] or a Gen Surg in [place] for combo if desired and I would be happy to collaborate Written and verbal health teaching given to patient, patient verbalizes understanding and agrees with treatment plan. Medical Decision Making: Problems: Moderate: 2+ stable chronic illnesses Data: Unique test result(s) reviewed: 3+ Risk: Moderate: Decision on minor surgery w/ risk factors Medical Decision Making Level: 4 - Moderate This is a virtual visit. It required patient-provider interaction for the medical decision making as documented below. The patient verbally consented to a Virtual Visit with telephone back up as necessary. I personally interviewed, confirmed and edited the above information if obtained by others. Abi Teixeira DO, MS Section of Minimally Invasive Gynecologic Surgery February 27, 2024 2:24 PM documented in this encounterMartin [facility]08-21-[facility]24 Telephone encounter Note * Telephone Encounter - Bernie Martines MD - 02/25/2024 7:03 PM EDT Gunjan, can you please check with pharmacy if they have any compounded prescriptions they recommend for painful mouth sores? Thank you. Bernie Martines MD [facility]08-[facility] Miscellaneous Notes* Telephone Encounter - Bernie Martines MD - 02/25/2024 7:03 PM EDT Gunjan, can you please check with pharmacy if they have any compounded prescriptions they recommend for painful mouth sores? Thank you. Bernie Martines MD documented in this encounterMartin [facility] Hospital08-15-2024 Instructions* Patient Instructions* Bernie Martines MD - 02/19/2024 12:14 PM EDT Images from the original note were not included. Bowel Preparation Instructions for: Suprep IF YOU DO NOT FOLLOW THESE DIRECTIONS, YOUR COLONOSCOPY WILL BE CANCELLED. [place] Instructions: Your bowel must be empty so that your doctor can clearly view your colon. Follow all of the instructions in this handout EXACTLY as they are written. Do NOT eat any solid food the ENTIRE day before your colonoscopy. DRINK ONLY CLEAR LIQUIDS Buy your bowel preparation at least 5 days before your colonoscopy. TRANSPORTATION on the Day of Your Exam A responsible adult MUST be present with you at Check In prior to your colonoscopy and REMAIN in the endoscopy area until you are discharged. You are NOT ALLOWED to drive, take a taxi or bus, or leave the Endoscopy Center ALONE. If you do not have a responsible taxi truck driver (family member or friend) withyou to take you home, your exam cannot be done with sedation and will be cancelled. Please bring a list of all of your current medications, including any [id number] medications with you. Medications If you take insulin, diabetic medications or blood thinners such as Coumadin (warfarin), Plavix (clopidogrel), Ticlid (ticlopidine hydrochloride), Agrylin (anagrelide), Xarelto (Rivaroxaban), Pradaxa(Dabigatran), Eliquis (Apixaban), and Effient (Prasugrel). You MUST call the doctors who orders those medicines for instructions on altering the dosage before your colonoscopy. All other medications should be taken the day of the exam with a sip of water including ASPIRIN. Five (5) Days Before Your Colonoscopy Do NOT take medicines that stop diarrhea - such as Imodium, Kaopectate, or Pepto Bismol. Do NOT take fiber supplements - such as Metamucil, Citrucel, or Perdiem. Do NOT take products that contain iron - such as multi-vitamins (the label lists what is in the products). Three (3) Days Before Your Colonoscopy Do NOT eat high-fiber foods - such as popcorn, beans, seeds (flax, sunflower, quinoa), multigrain bread, nuts, salad/vegetables, or fresh and dried fruit. 06/2019 Bowel Preparation Instructions for: Suprep One (1) Day Before Your Colonoscopy Only drink clear liquids the ENTIRE DAY before your colonoscopy. Do NOT eat any solid foods. Drink at least 8 ounces of clear liquids every hour after waking up. The clear liquids you can drink include: Clear Liquid (NO RED LIQUIDS) DO NOT DRINK Gatorade, Pedialyte or Powerade Clear broth or bouillon Coffee or tea (no milk or non-dairy creamer) Carbonated and non-carbonated soft drinks Tommie-Aid or other fruit flavored drinks Strained fruit juices (no pulp) Jell-O, popsicles, hard candy Water Alcohol Milk or non-dairy creamers Noodles or vegetables in soup Juice with pulp Liquid you cannot see through Do not use tobacco/vaping products The bowel preparation solution will be consumed in two parts. Do NOT add ice, sugar or any flavorings to the solution. Part 1 6 PM - Evening before your colonoscopy Pour ONE (1) 6 oz. bottle of SUPREP liquid into the mixing container. Add cool water to the 16 oz. line on the container and mix. Drink ALL the liquid in the container. Drink two (2) more 16 oz. water over the next 1 (one) hour. You may continue to drink clear liquids until midnight. Part 2 4 hours before your colonoscopy Pour ONE (1) 6 oz. bottle of SUPREP liquid into the mixing container. Add cool water to the 16 oz. line on the container and mix. Drink ALL the liquid in the container. You must drink two (2) more 16 oz. glasses of water over the next one (1) hour. You may continue drinking clear liquids up to three (3) hours before your procedure. 2 06/2019 documented in this encounterMartin [facility]08-13-2024 Telephone encounter Note * Telephone Encounter - Kimberly Desouza - 02/17/2024 9:51 AM EDT Last visit 02/11/24 Kimberly Mohamud [facility]08-[facility] Miscellaneous Notes* Telephone Encounter - Kimberly Desouza - 02/17/2024 9:51 AM EDT Last visit 02/11/24 Kimberly Mohamud documented in this encounterMartin [facility] Hospital08-12-2024 Instructions* Patient Instructions* Padmini Domingo RD - 02/16/2024 12:58 PM EDT Nutrition Interventions [place] breakfast essentials (CIB) higher calore ideas CIB + 1 ice cream + 1 spoonful of the peanut butter powder CIB + freeze strawberry yogurt + 1/4 cup of frozen fruit CIB + 1-2 spoons of oats + 1/2 banana (frozen) + peanut butter powder 2 ounce cooked of ground chicken, turkey or lean beef (90/10 or above) Most of your fluids have calories (juice, lemonade) Frosted Cheerios with 2%/whole fair life milk, 1/2 cup of each Soups: tomato soups with 5 crackers, broccoli cheese and chicken and rice (GF Progresso soups) https://[email or web address].Likelii/products/gluten-free 4 ounces at one time Follow Up with Padmini Domingo RD, as needed BUT send me an update 3-4 weeks to make sure your weight is stable documented in this encounterMartin Memorial Hospital08-12-2024 History of Present illness Narrative* Padmini Domingo RD - 02/16/2024 12:45 PM EDT GI Nutrition TeleHealth Consult - Re Assessment I have communicated my name and active licensure. The patient s identity and physical location wereverified at the time of this visit. Either the patient or their legal scheduling representative has been informed of the risks and benefits of -- and alternatives to -- treatment through a remote evaluation andconsents to proceed with the evaluation remotely Nutrition Diagnosis: Altered Gastrointestinal Tract Function, related to, GI dysmotility (gastroparesis, global dysmotility, colonic inertia), as evidenced by severe retention on GES in hospital . RECOMMENDED MALNUTRITION DIAGNOSIS: UNABLE TO IDENTIFY MALNUTRITION AT THIS TIME reported weight loss, virtual session on NFPE NUTRITION CARE PLAN Nutrition Intervention February 16, 2024 : Diet: --high calorie CIB 2-3 times/day --add in GF soups --make most of your fluids have calories (lemonade, juice) Vitamins/Minerals: --okay to continue Oral supplements: --protein shakes daily Nutrition Monitoring & Evaluation: improvement in GI symptoms, weight gain prevent losses Criteria: per pt report, weight trend Need for Follow up: as needed This is a 23 year-old female with an underlying diagnosis of gastroparesis who is followed by Dr. Guan. [facility] with findings of very severe gastroparesis (>50% gastric retention at 4 hours) plan to follow up with gastroparesis clinic and EDS Today, patient reports the following: --she was doing well for a while, three months and then last week her appetite was poor and ended up in the ED next day, stayed in the hospital for about 1 week, and she is currently on all liquids --seeing Dr. Tamayo at the end of the this month Current Clinical Symptoms # of bowel movements daily: once/day before, now has been 4 times/week, on the days that she does not go is unsure if she is feeling worse # of liquid stools daily: some Consistency: soft, mushy, formed, more hard Bloody bowel movements: no Urgency: no Abdominal pain: yes, every day, gabapentin (takes three times/day) Abdominal distention: no Nausea/vomiting: yes, every day Zofran sometimes helps (makes it tolerable) Heartburn/reflux: yes, regurgitation Nutrition Intervention December 08, 2023 : Diet: --low fat low fiber diet for presumed gastroparesis --met --small frequent meals, eat something every 2-3 hours --met --protein with every meal and snack --partially met Vitamins/Minerals: --continue MVI --met --potassium per provider --met Oral supplements: --sunfiber once/day at night --stopped --ORS as needed --met Intake: Appetite is poor Diet History: Breakfast - yogurt Citizen Of [place] non fat (strawberry), water Snack - CIB ready made Lunch - rice crackers, apple sauce Snack - Ensure Clear Dinner - tater tots, rice and mac and cheese, CIB Snack - pudding cups, singe serve ice cream cups Beverages - CIB, ensure clear left overs from the hospital, water, apple juice or lemonade Vitamins/Supplements - --MVI --potassium Allergies/Intolerance: --gluten (abd pain) --fish (does not like it) --beans (does not like, will eat baked beans) --Ensure, [place], Cefdinir, Hydrocodone-Acetaminophen, Latex, Penicillins, Benadryl [Diphenhydramine], Droperidol, Compazine [Prochlorperazine], Gluten, and Versed [Midazolam Hcl] Medications: Current Outpatient Medications Medication Sig Dispense Refill gabapentin (NEURONTIN) 100 mg capsule Take 1 capsule by mouth three times a day for 30 days. 90 capsule 0 ondansetron orally disintegrating (ZOFRAN ODT) 4 mg disintegrating tablet Take 1 tablet by mouth every 8 hours as needed for nausea/vomiting. 90 tablet 0 famotidine (PEPCID) 20 mg tablet Take 1 tablet by mouth two times a day. [address] (ROMY-TAB) 250 mg EC tablet Take 1 tablet by mouth three times a day for 14 days. 42tablet 0 linaCLOtide (LINZESS) 290 mcg capsule Take 1 capsule by mouth daily at 6 am. 30 capsule 2 potassium chloride SR (MICRO-K) 10 mEq CR capsule Take by mouth. polyethylene glycol 3350 17 gram packet Take 1 Packet by mouth once daily. Dissolve dose in 4 - 8 ounces of liquid and take as directed. propranolol ER (INDERAL LA) 60 mg 24 hr capsule Take 1 capsule by mouth once daily. 90 capsule 3 methylphenidate ER (CONCERTA) 18 mg biphasic tablet Take 1 tablet by mouth every morning for 30 days. 30 tablet 0 albuterol HFA (PROVENTIL HFA, VENTOLIN HFA) 90 mcg/actuation inhaler Inhale 2 Puffs as instructed every 4 hours as needed. 18 g 4 loratadine (CLARITIN) 10 mg tablet Take 10 mg by mouth once daily. MULTIVITAMIN ORAL Take 1 tablet by mouth once daily. No current facility-administered medications for this visit. Anthropometrics: Height: 5'2 Weight history: 52kg (02/11/24), 53kg (12/11/23), 52.6kg (11/12/23) 52.8kg (09/23/23) UBW: 118-120# Goal weight: back to UBW BMI: 21- normal Weight has remained stable over the last 5 months, per pt report has lost about 6-8# Estimated needs: Calories: 1550 - 1850 kcals/day determined by 30- 35 kcal/kg Protein: 55 - 65 g/day determined by 1.0-1.2 g/kg Malnutrition Screening Significant unintentional weight loss? No Eating less than 75% of usual intake for more than 2 weeks? Yes Potential Signs of Inflammation: chronic condition Education Materials Provided: None this visit Referred/Supervised by: Dr. Mojica/Dr. Montejo MNT Billing Type: Re-assess/15 min [address] documented in this [facility] Telephone encounter Note * Telephone Encounter - Dustin Tamayo DO - 02/12/2024 12:35 PM EDT Me only, egg is in [facility] Work Phone: [phone] Miscellaneous Notes* Telephone Encounter - Dustin Tamayo DO - 02/12/2024 12:35 PM EDT Me only, egg is in * Telephone Encounter - Lori Kennedy - 02/12/2024 8:57 AM EDT Gastric Emptying Study? Yes (Epic) Has the patient had a Smart Pill? No When was your last EGD? 09/2023 Has the patient had Gastric Bypass? No Has the patient had a Gastric Sleeve? No Has the patient had a Corine or Hiatal Hernia Repair? No Has the patient had POP/Pyloroplasty? No Is the patient currently on TPN? No Does the patient have a G/J Tube? No Referring Provider: Bernie Martines MD documented in this encounterMartin [facility]08-[facility]24 Telephone encounter Note * Telephone Encounter - Lori Kennedy - 02/12/2024 8:57 AM EDT Gastric Emptying Study? Yes (Epic) Has the patient had a Smart Pill? No When was your last EGD? 09/2023 Has the patient had Gastric Bypass? No Has the patient had a Gastric Sleeve? No Has the patient had a Corine or Hiatal Hernia Repair? No Has the patient had POP/Pyloroplasty? No Is the patient currently on TPN? No Does the patient have a G/J Tube? No Referring Provider: Bernie Martines MD [facility]08-07-2024 History of Present illness Narrative* Bernie Martines MD - 02/11/2024 10:20 AM EDT DEPARTMENT OF GASTROENTEROLOGY - FOLLOW UP VISIT HISTORY OF PRESENT ILLNESS Mikayla Blunt is a 23 year old female who presents today for follow up of nausea/vomiting/abdominal pain flare up. Last seen on 11/12/2023 for similar Sx and for an opinion on possible AIG. At that time, we started Linzess for constipation and held off on GES pending constipation management first. Hpylori stool test was positive, s/p quadruple therapy. Interval Events since last visit: - Completed H pylori quadruple therapy which was complicated by black furry tongue treated with antifungal by ENT. - Started Linzess which worked great until her recent flare up below.Since then, it has not been aseffective and she has since added daily miralax. - ED visit on 01/26 and then admission on 01/30/24 for RUQ Pain, N/V/ The day before, she had lost appetite, had a fever of 101.2, no runny nose, RUQ pain, nausea and vomtiing. GES while admitted with severe gastroparesis. MRI liver with stable hemangioma, mild cholelithiasis. Erythromycin in the hospital has helped but she thinks gabapentin 100 TID is helping more than anything else with the pain. She does not want to take Reglan for gastroparesis given a family member's reaction to it. Today she tells me she has tons of apthous ulcers since October 2023 and they last 2 days then come back days later in different spots. She mught have 1 to 3 days with no sores. Had them for 2-3 years now. Does not want to do Golytely if colonoscopy is pursued. Constipiation chronic but never realized ituntil the Ct scan happened. She saw SHARON recently. She is getting in May and is concerned about conceiving a child given her health issues. Per SHARON's note: We discussed her concern/family history of severe pelvic organ prolapse, as well as reported history of childhood fractures and significant dysautonomia. I believe she may benefit from evaluation for collagen vascular disorder. She denies extensibility or skin differences however. History does not sound concerning for a vascular type of disorder however this would greatly impact her prognosis so will refer to EDS team to evaluate, as she has a large array of conditions with no unifying diagnosis including dysautonomia, gastroparesis, reporting history childhood fractures (none recently), as well as significant family history of pelvic organ prolapse with child bearing. While unclear from available medical literature, I would assume she has risk for pelvic organ prolapse complications in given strong family history. Of note, gastrin level previously elevated at 151 then 437. Previously, given + AIG serologies, I emailed pathologist Dr. Mittal to check if gastritis pattern was suggestive of AIG. Per Dr. Mittal all bx were inflamed with some with activity (neutrophils damaging epithelium). He tells me he has seen this pattern secondary to Crohn's disease or meds. TEST RESULTS SINCE LAST VISIT Imaging/Procedures: CT abdomen/pelvis 01/27/24: IMPRESSION: No CT evidence of acute abnormality. Hepatic hemangioma unchanged from 10/30/2022. US RUQ 01/30/24: IMPRESSION: Echogenic hepatic mass measuring 6.4 x 2.9 x 4.3 cm. This was previously assessed on the MRI/CT. Please see previous reports. Repeat MRI examination may be obtained, as warranted. Small amount of gallbladder sludge. No evidence of cholelithiasis or acute cholecystitis. MRI liver 02/01/24: IMPRESSION: Stable 4.1 cm caudate lobe hemangioma. Gastric emptying study 02/03/24: IMPRESSION: Findings of very severe gastroparesis (>50% gastric retention at 4 hours). Hemoglobin (g/dL) Date Value 02/04/2024 12.8 07/26/2021 14.1 Hematocrit (%) Date Value 02/04/2024 38.2 07/26/2021 43.2 WBC (k/uL) Date Value 02/04/2024 5.33 07/26/2021 5.77 Glucose (mg/dL) Date Value 02/05/2024 140 07/26/2021 99 Potassium (mmol/L) Date Value 02/05/2024 3.7 07/26/2021 3.6 Sodium (mmol/L) Date Value 02/05/2024 141 07/26/2021 140 Chloride (mmol/L) Date Value 02/05/2024 104 07/26/2021 101 CO2 (mmol/L) Date Value 02/05/2024 22 07/26/2021 27 Creatinine (mg/dL) Date Value 02/05/2024 0.72 07/26/2021 0.68 BUN (mg/dL) Date Value 02/05/2024 6 07/26/2021 8 Anion Gap (mmol/L) Date Value 02/05/2024 15 07/26/2021 12 Calcium (mg/dL) Date Value 07/26/2021 9.2 Calcium, Total (mg/dL) Date Value 02/05/2024 9.1 Protein, Total (g/dL) Date Value 02/01/2024 5.8 04/10/2020 6.8 Albumin (g/dL) Date Value 02/01/2024 4.0 07/26/2021 4.9 Bilirubin, Total (mg/dL) Date Value 02/01/2024 0.3 04/10/2020 0.2 Alkaline Phosphatase (U/L) Date Value 02/01/2024 45 04/10/2020 56 AST (U/L) Date Value 02/01/2024 21 04/10/2020 20 ALT (U/L) Date Value 02/01/2024 16 04/10/2020 12 Current Outpatient Medications Medication Sig Dispense Refill gabapentin (NEURONTIN) 100 mg capsule Take 1 capsule by mouth three times a day for 30 days. 90 capsule 0 ondansetron orally disintegrating (ZOFRAN ODT) 4 mg disintegrating tablet Take 1 tablet by mouth every 8 hours as needed for nausea/vomiting. 90 tablet 0 famotidine (PEPCID) 20 mg tablet Take 1 tablet by mouth two times a day. [address] (ROMY-TAB) 250 mg EC tablet Take 1 tablet by mouth three times a day for 14 days. 42tablet 0 linaCLOtide (LINZESS) 290 mcg capsule Take 1 capsule by mouth daily at 6 am. 30 capsule 2 potassium chloride SR (MICRO-K) 10 mEq CR capsule Take by mouth. polyethylene glycol 3350 17 gram packet Take 1 Packet by mouth once daily. Dissolve dose in 4 - 8 ounces of liquid and take as directed. propranolol ER (INDERAL LA) 60 mg 24 hr capsule Take 1 capsule by mouth once daily. 90 capsule 3 methylphenidate ER (CONCERTA) 18 mg biphasic tablet Take 1 tablet by mouth every morning for 30 days. 30 tablet 0 albuterol HFA (PROVENTIL HFA, VENTOLIN HFA) 90 mcg/actuation inhaler Inhale 2 Puffs as instructed every 4 hours as needed. 18 g 4 loratadine (CLARITIN) 10 mg tablet Take 10 mg by mouth once daily. MULTIVITAMIN ORAL Take 1 tablet by mouth once daily. No current facility-administered medications for this visit. ALLERGIES Allergen Reactions Cefdinir Swelling Hydrocodone-Acetami* Swelling Latex Swelling Penicillins Rash Benadryl [Diphenhyd* Mental Status Change agitation Droperidol Other: See Comments akathesia Compazine [Prochlor* Intolerance Restlessness, agitation Gluten GI Upset Versed [Midazolam H* Mental Status Change Pulling out IV's, extremely confused and restless, getting on hands and knees Answers submitted by the patient for this visit: Review of Systems Gastroenterology (Submitted on 02/09/2024) Fever: No Chills: No Night Sweats: No Unitentional Weight Change: Yes A Cough: No Difficulty Breathing: No Chest Pain: No Belly pain: Yes A feeling of fullness or have belly pain after eating: Yes Food getting stuck in your throat or chest after eating: No Nausea - that is, a feeling like you could vomit: Yes Regurgitation - that is, food or liquid coming back up into your throat or mouth without vomiting, or feel burning behind your breast bone: Yes Loss of appetite: Yes To throw up or vomit: Yes Blood in your stools: No Black tarry stools: No Loose or watery stools: No The feeling like you need to empty your bowels right away - that is, feel as if you would have an accident: No Bowel incontinence - that is, have an accident because you cannot make it to the bathroom in time: No Problems with straining while having bowel movements , hard or lumpy stools, or feel unfinished (that you have not passed all your stool): No Pain in rectum or anus during bowel movements: No Problems with jaundice - that is, yellow discoloration of your skin or eyes, now or in the past: No Problems with having to flush the toilet more than two times due to oily stool, or see stool floating with oil: No REVIEW OF SYSTEMS Per HPI PHYSICAL EXAMINATION Ht 5' 2 (1.58m) Wt 115 lb (52.2kg) LMP 01/25/2024 BMI 21.03 kg/(m^2). General Appearance: alert, oriented x 3, pleasant and in no acute distress Abdomen: not distended, normal bowel sounds, soft and depressible, no guarding or rebound, no palpable mass, no organomegaly Rectal exam: deferred Extremities: no cyanosis or edema Skin: no jaundice, no spider angiomas, no palmar erythema Neuro: alert, oriented x 3, pleasant and in no acute distress Assessment IMPRESSION/ PLAN Mikayla Blunt is a 23 year old female who presents today for follow up of nausea/vomiting/abdominal pain flare up. Last seen on 11/12/2023 for similar Sx and for an opinion on possible AIG. At that time, we started Linzess for constipation and held off on GES pending constipation management first. Hpylori stool test was positive, s/p quadruple therapy. Since I last saw her, she started Linzess with good response until she developed a RUQ pain flare up with N/V requiring admission. GES revealed severe gastroparesis. She was started on Erythromycin with some improvement. She was started on Gabapentin 100mg TID which seems to be helping the most with her RUQ pain. She does not want to take Reglan for gastroparesis given a family member's reaction to it. Today she tells me she has tons of apthous ulcers since October 2023 and they last 2 days then come back days later in different spots. She mught have 1 to 3 days with no sores. Had them for 2-3 years now. Gastrin level mildly elevated in the past. (A04.8) H. pylori infection (primary encounter diagnosis) S/p quadruple therapy. Repeat H pylory stool test (R10.11) RUQ abdominal pain DDx includes gastroparesis vs GB disease (no evidence of GS) vs visceral hypersensitivity given improvement with Gabapentin - Continue Gabapentin for now (K31.84) Gastroparesis Referral to Dr. Tamayo gastroparesis clinic for therapy options (she is reluctant to try Reglan) (K12.0) Aphthous ulcer of mouth (K29.70) Gastritis without bleeding, unspecified chronicity, unspecified gastritis type Active gastritis on recent path likely in the setting of H pylori, though per discussion with pathologist, inflammation pattern not consistent with H pylori and can be seen with Crohn;s/ Will plan on repeat EGD with gastric and duodenal bx and colonoscopy (never had one done). Pending results, would consider VCE. Discussed with patient that if GI tract is normal and oral ulcers are Crohn's related, it would declare itself at some point (E16.4) Elevated gastrin level Repeat off PPI for at least 2 weeks and in fasting state. Plan is to follow up in three months. I spent a total of 45 minutes on the date of the service which included preparing to see the patient, [id number] patient care, completing clinical documentation, obtaining and/or reviewing separately obtained history, performing a medically appropriate examination, counseling and educating the pat ient/family/caregiver, and ordering medications, tests, or procedures. Bernie Martines MD February 11, 2024 documented in this encounter[facility]08-[facility] Telephone encounter Note * Telephone Encounter - Mouna Vasques RN - 02/05/2024 11:37 AM EDT Images from the original note were not included. PSS, Bella Higginbotham, informed patient that we cannot speak to her while she is admitted. Zoran stated that she can book with any member of the team. The pt relayed that she would book when she isreleased. Zoran Julio, [employer] UNIT OPERATOR.CORRECTIONAL PROBATION OFFICER You51 minutes ago (10:47 AM) Please provide scheduling information. Any merchandise flow team member. AZUL Rudd, RN, BA [facility] Work Phone: 1(198) 242-494308-01-2024 Miscellaneous Notes* Telephone Encounter - Mouna Vasques RN - 02/05/2024 11:37 AM EDT Images from the original note were not included. PSS, Bella Higginbotham, informed patient that we cannot speak to her while she is admitted. Zoran stated that she can book with any member of the team. The pt relayed that she would book when she isreleased. Zoran Julio APRN.CNP You51 minutes ago (10:47 AM) Please provide scheduling information. Any merchandise flow team member. AZUL Rudd, RN, BA * Telephone Encounter - Lexie Del Castillo - 02/05/2024 10:28 AM EDT Call received for Zoran Julio APRN.CNP regarding Mikayla Blunt 2000. Caller: Self Patient Identified by Name and : Yes Was permission obtained from patient ? NA Reason for Call: Other: Patient called to report she is currently admitted at [facility] for multiple issues. Per the patient she was instructed to make a follow up appointment with provider for treatment. Last Office Visit: 09/01/2023 Next scheduled appointment: Visit date not found Best number to reach caller: [phone] Best time to reach caller: any Is it OK to leave a detailed voice message? Yes Lexie Del Castillo documented in this encounterMartin [facility] Hospital08-01-2024 Telephone encounter Note * Telephone Encounter - Lexie Del Castillo - 02/05/2024 10:28 AM EDT Call received for Zoran Julio APRN.CNP regarding Mikaylaelma Blunt 2000. Caller: Self Patient Identified by Name and : Yes Was permission obtained from patient ? NA Reason for Call: Other: Patient called to report she is currently admitted at [facility] for multiple issues. Per the patient she was instructed to make a follow up appointment with provider for treatment. Last Office Visit: 09/01/2023 Next scheduled appointment: Visit date not found Best number to reach caller: [phone] Best time to reach caller: any Is it OK to leave a detailed voice message? Yes Lexie Del Castillo [facility]07-[facility] Telephone encounter Note* Telephone Encounter - Bernie Martines MD - 01/27/2024 3:05 PM EDT Agree with ER evaluation given RUQ pain and fevers [facility]07-23-[facility] Miscellaneous Notes* Telephone Encounter - Bernie Martines MD - 01/27/2024 3:05 PM EDT Agree with ER evaluation given RUQ pain and fevers * Telephone Encounter - Charo Wilson RN - 01/27/2024 2:39 PM EDT Notes history of POTS. Last week, sitting on couch calmly, got shooting sharp pain in her RUQ. Laid down on her side and back, took Tylenol, went away in 1.5 hours. Attributed it to maybe a pulled muscle but now isn't suregiven recurrent symptoms. She is at work today. Woke up super cold and clammy. Drank hot chocolate which helped warm her up. Notes some fatigue. About 11 AM, sitting at work and had shooting pain again in RUQ radiating to back. Associated nausea. Took Tylenol and nausea. Pain is 7/10. Spiked a fever at the same time which normalized after Tylenol. Has been vomiting. Only tolerating water. Advised that she should ideally go be evaluated at ER but I would send message on to provider for further guidance. * Telephone Encounter - Bernie Martines MD - 01/27/2024 1:59 PM EDT Could you please check in with patient? Thank you, Bernie * Telephone Encounter - Kimberly Desouza - 01/27/2024 1:10 PM EDT Patient requests return call - states starting today she's experiencing abdominal pain, nausea, states she had a fever of 100.2 now down to 98.6; also states her blood pressure was elevated; she believes this is a pain response [phone] Kimberly Mohamud documented in this encounterMartin [facility] Hospital07-23-2024 Telephone encounter Note * Telephone Encounter - Charo Wilson RN - 01/27/2024 2:39 PM EDT Notes history of POTS. Last week, sitting on couch calmly, got shooting sharp pain in her RUQ. Laid down on her side and back, took Tylenol, went away in 1.5 hours. Attributed it to maybe a pulled muscle but now isn't suregiven recurrent symptoms. She is at work today. Woke up super cold and clammy. Drank hot chocolate which helped warm her up. Notes some fatigue. About 11 AM, sitting at work and had shooting pain again in RUQ radiating to back. Associated nausea. Took Tylenol and nausea. Pain is 7/10. Spiked a fever at the same time which normalized after Tylenol. Has been vomiting. Only tolerating water. Advised that she should ideally go be evaluated at ER but I would send message on to provider for further guidance. [facility] Work Phone: 1(117) 180-607207-23-2024 Telephone encounter Note* Telephone Encounter - Bernie Martines MD - 01/27/2024 1:59 PM EDT Could you please check in with patient? Thank you, Bernie [facility]07-23-[facility]24 Telephone encounter Note* Telephone Encounter - Kimberly Desouza - 01/27/2024 1:10 PM EDT Patient requests return call - states starting today she's experiencing abdominal pain, nausea, states she had a fever of 100.2 now down to 98.6; also states her blood pressure was elevated; she believes this is a pain response [phone] Kimberly Mohamud [facility]07-09-[facility]24 Telephone encounter Note* Telephone Encounter - Sahara Fried RN - 01/13/2024 8:44 AM EDT [facility] 01/05/2024 ASSESSMENT Mikayla Blunt is a 23 year old female with desire for salpingectomy given her history of POTS, epilepsy, narcolepsy, and various medications Encounter Diagnosis ICD-10-CM 1. Sterilization consult Z30.09 PLAN - Will discuss her desires with Dr. Teixeira and reach out accordingly May Frias APRN.CORRECTIONAL PROBATION OFFICER [facility]07-09-2024 Miscellaneous Notes* Telephone Encounter - Sahara Fried RN - 01/13/2024 8:44 AM EDT [facility] 01/05/2024 ASSESSMENT Mikayla Blunt is a 23 year old female with desire for salpingectomy given her history of POTS, epilepsy, narcolepsy, and various medications Encounter Diagnosis ICD-10-CM 1. Sterilization consult Z30.09 PLAN - Will discuss her desires with Dr. Teixeira and reach out accordingly May Frias APRN.CORRECTIONAL PROBATION OFFICER documented in this encounterMartin Memorial Hospital07-01-2024 History of Present illness Narrative* May Frias APRN.NEERU - 01/05/2024 8:00 AM EDT Images from the original note were not included. [facility] [place] [facility] Benign Gynecology [facility] PATIENT NAME: Mikayla Blunt DATE: 01/05/2024 Patient Name and verified: Yes Patient Location: [place] This Virtual Visit was completed using My Chart Zoom platform. I have communicated my name and active licensure. The patient's identity and physical location wereverified at the time of this visit. Either the patient or their legal scheduling representative has been informed of the risks and benefits of -- and alternatives to -- treatment through a remote evaluation andconsents to proceed with the evaluation remotely. Chief Complaint CC/REASON FOR VIRTUAL VISIT: tubal sterilization History of Present Illness: Mikayla is a 23 year old who presents for a Distance Health visit to discuss salpingectomy. Mikayla states she has several medical issues including gastritis, POTS, narcolepsy, epilepsy, and tierra several medications. She has discussed this with her family and she desires salpingectomy because she does not feel like would be safe for her body, she does not wish to try other forms of control. She has not had any abdominal surgeries She has delayed emergence from anesthesia She has reactions to many medications She has had a postop ileus after a foot surgery She is getting in May and desires surgery prior to then Last seen 12/11/23 notes below: ASSESSMENT AND PLAN: 23yo female with multiple medical issues who is considering Reviewed 's consult with patient & all questions answered. At this time patient is strongly considering permanent sterilization via bilateral salpingectomy. R/B/A including risks of regret and failure reviewed. Patient is very concerned about how would affect her health &quality of life. She is open to adoption and other ways to have a family. Will refer patient to [facility] as she desires surgery at [facility]. I spent a total of 26 minutes on the date of the service which included preparing to see the patient, [id number] patient care, completing clinical documentation, obtaining and/or reviewing separately obtained history, and counseling and educating the patient/family/caregiver. Lizbet Rider MD Menses: regular and monthly lasting 5 days. No pain, normal flow Contraception: none OB History T0 L0 SAB0 IAB0 Ectopic0 Multiple0 Live Births0 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 LMP: 12/04/2023 (Approximate), Having periods Age at Menarche: Age at First : Age at Menopause: 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 Comments: Sexual Activity: Never; No partner data on record Contraception: No contraception data on record Review of Systems: General: Feels well. Denies fatigue, fever, chills, unintentional weight loss/weight gain. Psych: Feels stable, denies anxiety, depression or mood changes. Stress is tolerable. PAST MEDICAL HISTORY Diagnosis Date Acquired mallet [...] Topics Alcohol use: No Drug use: No Current Outpatient Medications on File Prior to Visit Medication Sig omeprazole (PRILOSEC) 20 mg capsule Take 1 capsule by mouth two times a day for 10 days. bismuth subsalicylate (PEPTO-BISMOL) 262 mg chewable tablet Take 2 tablets by mouth four times daily for 10 days. linaCLOtide (LINZESS) 290 mcg capsule Take 1 capsule by mouth daily at 6 am. peg 3350-Electrolytes (GOLYTELY) 236-22.74-6.74 -5.86 gram suspension Refer to printed patient instructions that will be mailed to you. folic acid 1 mg tablet Take 1 tablet by mouth once daily. potassium chloride SR (MICRO-K) 10 mEq CR capsule Take by mouth. ondansetron (ZOFRAN) 4 mg tablet Take 4 mg by mouth every 8 hours as needed for nausea/vomiting. maalox-lidocaine (GI COCKTAIL) 2:1 liqd Take 10 mL by mouth every 6 hours as needed (GI upset or pain). polyethylene glycol 3350 17 gram packet Take 1 Packet by mouth once daily. Dissolve dose in 4 - 8 ounces of liquid and take as directed. senna (SENOKOT) 8.6 mg tab 1 tablet by ORAL/FEEDING TUBE route two times a day. propranolol ER (INDERAL LA) 60 mg 24 hr capsule Take 1 capsule by mouth once daily. methylphenidate ER (CONCERTA) 18 mg biphasic tablet Take 1 tablet by mouth every morning for 30 days. albuterol HFA (PROVENTIL HFA, VENTOLIN HFA) 90 mcg/actuation inhaler Inhale 2 Puffs as instructed every 4 hours as needed. loratadine (CLARITIN) 10 mg tablet Take 10 mg by mouth once daily. MULTIVITAMIN ORAL Take 1 tablet by mouth once daily. No current facility-administered medications on file prior to visit. ALLERGIES Allergen Reactions Cefdinir Swelling Hydrocodone-Acetami* Swelling Latex Swelling Penicillins Rash Benadryl [Diphenhyd* Mental Status Change agitation Droperidol Other: See Comments akathesia Compazine [Prochlor* Intolerance Restlessness, agitation Gluten GI Upset Versed [Midazolam H* Mental Status Change Pulling out IV's, extremely confused and restless, getting on hands and knees FAMILY HISTORY Problem Relation Age of Onset Graves Disease Mother Heart Mother SVT Allergies Father Asthma Brother Allergies Maternal Grandmother Hypertension Maternal Grandfather Allergies Maternal Grandfather Heart Maternal Grandfather mat side/pat side Breast Cancer Paternal Grandmother No Known Problems Paternal Grandfather ROS OBJECTIVE LMP 12/04/2023 PHYSICAL EXAMINATION: Physical Exam ASSESSMENT Mikayla J Hill is a 23 year old female with desire for salpingectomy given her history of POTS, epilepsy, narcolepsy, and various medications Encounter Diagnosis ICD-10-CM 1. Sterilization consult Z30.09 PLAN - Will discuss her desires with Dr. Teixeira and reach out accordingly May Frias APRN.CORRECTIONAL PROBATION OFFICER I spent a total of 37 minutes on the date of the service which included preparing to see the patient, [id number] patient care, completing clinical documentation, obtaining and/or reviewing separately obtained history, and communicating with other HCPs (not separately reported). documented in this encounterMartin [facility]06-[facility] Telephone encounter Note * Telephone Encounter - Tena Krause - 12/19/2023 10:22 AM EDT ----- Message from Dustin Perez RN sent at 12/16/2023 2:58 PM EDT ----- Regarding: please schedule pt to see a nurse practitioner in [facility] please neeru Moses, neeru huerta, neeru armas cnp. please schedule pt to see a nurse practitioner in [facility] thank you so very much - dustin [facility]06-[facility] Miscellaneous Notes* Telephone Encounter - Tena Krause - 12/19/2023 10:22 AM EDT ----- Message from Dustin Perez RN sent at 12/16/2023 2:58 PM EDT ----- Regarding: please schedule pt to see a nurse practitioner in [facility] please neeru Moses cnp - e. reaper, neeru armas cnp. please schedule pt to see a nurse practitioner in [facility] thank you so very much - dustin documented in this encounterMartin [facility]06-10-2024 Telephone encounter Note * Telephone Encounter - Silvana Woodruff RN - 12/15/2023 2:57 PM EDT Called patient re: referral to the [facility] clinic. Discussed current two year wait time (pending implementation of SMA program later this year). Discussed that she will be added to wait list, and contacted when a slot becomes available to her. She states understanding. Silvana Woodruff RN [facility]06-10-2024 Miscellaneous Notes* Telephone Encounter - Silvana Woodruff RN - 12/15/2023 2:57 PM EDT Called patient re: referral to the E[facility] clinic. Discussed current two year wait time (pending implementation of SMA program later this year). Discussed that she will be added to wait list, and contacted when a slot becomes available to her. She states understanding. Silvana Woodruff RN documented in this encounterMartin [facility]06-06-[facility]24 History of Present illness Narrative* Lizbet Rider MD - 12/11/2023 11:00 AM EDT Mikayla Blunt is a 23 year old female who presents for problem visit . HPI: Patient presents to discuss possible versus permanent sterilization. She has discussed the MFM consult with her fiancee and mother. OB History T0 L0 SAB0 IAB0 Ectopic0 Multiple0 Live Births0 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 LMP: 12/04/2023 (Approximate), Having periods Age at Menarche: Age at First : Age at Menopause: 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 Comments: Sexual Activity: Never; No partner data on record Contraception: No contraception data on record PAST MEDICAL HISTORY Diagnosis Date Acquired mallet [...] FAMILY HISTORY Problem Relation Age of Onset Graves Disease Mother Heart Mother SVT Allergies Father Asthma Brother Allergies Maternal Grandmother Hypertension Maternal Grandfather Allergies Maternal Grandfather Heart Maternal Grandfather mat side/pat side Breast Cancer Paternal Grandmother No Known Problems Paternal Grandfather Social History Tobacco Use Smoking status: Never Passive exposure: Never Smokeless tobacco: Never Vaping Use Vaping Use: Never used Substance Use Topics Alcohol use: No Drug use: No Current Outpatient Medications Medication Sig linaCLOtide (LINZESS) 290 mcg capsule Take 1 capsule by mouth daily at 6 am. potassium chloride SR (MICRO-K) 10 mEq CR capsule Take by mouth. ondansetron (ZOFRAN) 4 mg tablet Take 4 mg by mouth every 8 hours as needed for nausea/vomiting. maalox-lidocaine (GI COCKTAIL) 2:1 liqd Take 10 mL by mouth every 6 hours as needed (GI upset or pain). propranolol ER (INDERAL LA) 60 mg 24 hr capsule Take 1 capsule by mouth once daily. albuterol HFA (PROVENTIL HFA, VENTOLIN HFA) 90 mcg/actuation inhaler Inhale 2 Puffs as instructed every 4 hours as needed. loratadine (CLARITIN) 10 mg tablet Take 10 mg by mouth once daily. MULTIVITAMIN ORAL Take 1 tablet by mouth once daily. omeprazole (PRILOSEC) 20 mg capsule Take 1 capsule by mouth two times a day for 10 days. bismuth subsalicylate (PEPTO-BISMOL) 262 mg chewable tablet Take 2 tablets by mouth four times daily for 10 days. peg 3350-Electrolytes (GOLYTELY) 236-22.74-6.74 -5.86 gram suspension Refer to printed patient instructions that will be mailed to you. folic acid 1 mg tablet Take 1 tablet by mouth once daily. polyethylene glycol 3350 17 gram packet Take 1 Packet by mouth once daily. Dissolve dose in 4 - 8 ounces of liquid and take as directed. senna (SENOKOT) 8.6 mg tab 1 tablet by ORAL/FEEDING TUBE route two times a day. methylphenidate ER (CONCERTA) 18 mg biphasic tablet Take 1 tablet by mouth every morning for 30 days. No current facility-administered medications for this visit. Allergies As of Date: 12/11/2023 Allergen Noted Reaction CEFDINIR 08/31/2020 Swelling HYDROCODONE-ACETAMINOPHEN 05/29/2022 Swelling LATEX 03/28/2007 Swelling PENICILLINS 07/23/2005 Rash BENADRYL [DIPHENHYDRAMINE] 09/18/2023 Mental Status Change DROPERIDOL 09/18/2023 Other: See Comments COMPAZINE [PROCHLORPERAZINE] 11/04/2022 Intolerance GLUTEN 04/12/2020 GI Upset VERSED [MIDAZOLAM HCL] 02/03/2012 Mental Status Change Fully Assessed 12/11/2023 Allergies and current medication updated:Yes EXAM: BP 100/60 Wt 117 lb 12.8 oz (53.4kg) LMP 12/04/2023 GENERAL: pleasant, female in no apparent distress ASSESSMENT AND PLAN: 23yo female with multiple medical issues who is considering Reviewed 's consult with patient & all questions answered. At this time patient is strongly considering permanent sterilization via bilateral salpingectomy. R/B/A including risks of regret and failure reviewed. Patient is very concerned about how would affect her health &quality of life. She is open to adoption and other ways to have a family. Will refer patient to [facility] as she desires surgery at [facility]. I spent a total of 26 minutes on the date of the service which included preparing to see the patient, [id number] patient care, completing clinical documentation, obtaining and/or reviewing separately obtained history, and counseling and educating the patient/family/caregiver. Lizbet Rider MD documented in this encounterMartin [facility]06-04-2024 History of Present illness Narrative* Lizbeth Constantino MD - 12/09/2023 11:56 AM EDT Images from the original note were not included. Assistant Engineer [place] OUTPATIENT VISIT DATE December 09, 2023 OUTPATIENT VISIT TYPE CONSULT REFERRING PROVIDER: Lizbet Rider MD Recommendations from today's consultation will be conveyed through the electronic medical record. History of Present Illness: Mikayla is a 23 year old G0 [facility] of history of epilepsy, history chronic hypertension, history POTS, migraines, narcolepsy, GERD, gastroparesis, recent history autoimmune gastritis, liver hemangioma. She was recently admitted to [facility] 09/17/23-09/25/23 due to intractable nausea/vomiting. Work up showed gastroparesis, hepatobiliary dysfunction, autoimmune gastritis. In terms of her seizure disorder, her last seizure was at age 18, she has been off medication [id number] with reassuring EEG since then, and has been cleared for activities including driving. 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 She has POTS, diagnosed 2016. Has required IV fluids in past, likely worsened by aforementioned GI concerns which can cause dehydration. Also has been diagnosed with chronic hypertension which was initially noted at age 19 on admission for nausea/vomiting. Renal imaging normal, labs followed without clinical concern for secondary hypertension (Pediatric nephrology evaluation 04/2020). She had echocardiogram that admission (04/12/2020) which was unremarkable. She takes propranolol 60mg daily. She has narcolepsy and takes concerta daily which is very important to her high functioning. She reports missing one dose recently where she slept for several hours with extreme fatigue. She has known liver lesion consistent with hemangioma measuring 3.8 x 2.8 cm on MRI in 2022. She also expresses concern over family obstetric history. In particular, women in her family (mother, aunts) have experienced early pelvic organ prolapse. In her mother's case she required hysterectomy in her early 30s due to severe pelvic organ prolapse. She also notes family history of miscarriage and labors. Her relevant histories have been updated and are reviewed below: Obstetric History: The patient has never been . She is not currently sexually active, however she is planning her wedding in May. Considering barrier method contraception as she does not want to unintentionally conceive and is trying to avoid hormonal contraception if possible. Past Medical History: 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) off AEDs since 2018 GERD (gastroesophageal reflux disease) Hypertension 04/11/2020 Mild intermittent asthma without complication MT (mallet toe), right Narcolepsy without cataplexy Nonallergic rhinitis PMH - PAST MEDICAL HISTORY OF seizure POTS (postural orthostatic tachycardia syndrome) Past Surgical History: PAST SURGICAL HISTORY Procedure Laterality Date DENTAL [...] TONSIL AND ADENOI UNDER AGE 14 02/12/2010 Medications: Current Outpatient Medications on File Prior to Visit Medication Sig linaCLOtide (LINZESS) 290 mcg capsule Take 1 capsule by mouth daily at 6 am. potassium chloride SR (MICRO-K) 10 mEq CR capsule Take by mouth. ondansetron (ZOFRAN) 4 mg tablet Take 4 mg by mouth every 8 hours as needed for nausea/vomiting. maalox-lidocaine (GI COCKTAIL) 2:1 liqd Take 10 mL by mouth every 6 hours as needed (GI upset or pain). propranolol ER (INDERAL LA) 60 mg 24 hr capsule Take 1 capsule by mouth once daily. methylphenidate ER (CONCERTA) 18 mg biphasic tablet Take 1 tablet by mouth every morning for 30 days. albuterol HFA (PROVENTIL HFA, VENTOLIN HFA) 90 mcg/actuation inhaler Inhale 2 Puffs as instructed every 4 hours as needed. loratadine (CLARITIN) 10 mg tablet Take 10 mg by mouth once daily. MULTIVITAMIN ORAL Take 1 tablet by mouth once daily. omeprazole (PRILOSEC) 20 mg capsule Take 1 capsule by mouth two times a day for 10 days. bismuth subsalicylate (PEPTO-BISMOL) 262 mg chewable tablet Take 2 tablets by mouth four times daily for 10 days. peg 3350-Electrolytes (GOLYTELY) 236-22.74-6.74 -5.86 gram suspension Refer to printed patient instructions that will be mailed to you. folic acid 1 mg tablet Take 1 tablet by mouth once daily. polyethylene glycol 3350 17 gram packet Take 1 Packet by mouth once daily. Dissolve dose in 4 - 8 ounces of liquid and take as directed. senna (SENOKOT) 8.6 mg tab 1 tablet by ORAL/FEEDING TUBE route two times a day. Allergies: ALLERGIES Allergen Reactions Cefdinir Swelling Hydrocodone-Acetami* Swelling Latex Swelling Penicillins Rash Benadryl [Diphenhyd* Mental Status Change agitation Droperidol Other: See Comments akathesia Compazine [Prochlor* Intolerance Restlessness, agitation Gluten GI Upset Versed [Midazolam H* Mental Status Change Pulling out IV's, extremely confused and restless, getting on hands and knees Social History: Social History Tobacco Use Smoking status: Never Passive exposure: Never Smokeless tobacco: Never Vaping Use Vaping Use: Never used Substance Use Topics Alcohol use: No Drug use: No Family History: FAMILY HISTORY Problem Relation Age of Onset Graves Disease Mother Heart Mother SVT Allergies Father Asthma Brother Allergies Maternal Grandmother Hypertension Maternal Grandfather Allergies Maternal Grandfather Heart Maternal Grandfather mat side/pat side Breast Cancer Paternal Grandmother No Known Problems Paternal Grandfather Review of Systems: Negative other than as noted above. Physical Exam: BP 90/60 Wt 117 lb 12.8 oz (53.4 kg) LMP 10/25/2023 (Approximate) BMI 21.90 kg/m Gen: Well-appearing, no acute distress CV/Resp: Non-labored breathing on room air Ext: Moving spontaneously, no significant edema b/l Assessment and Plan: 23 year old G0 here for preconception consult due to multiple medical complications including history of epilepsy, history chronic hypertension, history POTS, migraines, narcolepsy, GERD, gastroparesis, recent history autoimmune gastritis, liver hemangioma. She is unsure regarding her desire to conceive however not on long-term contraception and getting late this year. Plans to most likely use barrier method although open to a non-hormonal option, we did discuss LARC options which she can seek through her radiologic technologist team. We discussed her concern/family history of severe pelvic organ prolapse, as well as reported history of childhood fractures and significant dysautonomia. I believe she may benefit from evaluation forcollagen vascular disorder. She denies extensibility or skin differences however. History does not sound concerning for a vascular type of disorder however this would greatly impact her prognosis so will refer to EDS team to evaluate, as she has a large array of conditions with no unifying diagnosis including dysautonomia, gastroparesis, reporting history childhood fractures (none recently), as well as significant family history of pelvic organ prolapse with child bearing. While unclear from available medical literature, I would assume she has risk for pelvic organ prolapse complications in given strong family history. We discussed that while quality data on and POTS are limited, the available literature suggests is safe for people with POTS and we anticipate a favorable outcome. Some patients feel better during from POTS standpoint likely related to increased blood volume. We did discuss possible correlation in some studies of beta blockers with growth restriction, growth will be assessed serially due to hypertension. Recommended she avoid triggers and continue medication as needed. Discussed liver hemangiomas need to be monitored closely in . There are case reports of bleeding/rupture of liver hemangiomas in with extremely poor outcomes. However many patientswith liver hemangiomas remain stable in . She should see hepatology and/or GI preconception if she strongly desires . She will also need close follow up with her GI team for gastroparesis and constipation, which are likely to worsen in . Progesterone slows GI motility andmay cause significant symptoms during a potential . While this is not an absolute contraindication to conceiving, it may make very difficult for her, and require alternative modes of nutrition such as enteral or parenteral nutrition to support a . She may have significant gastrointestinal symptoms in . This may not immediately/acutely threaten Mikayla or a fetus, but may severely limit her quality of life. There are limited quality data sources regarding autoimmune gastritis in , however nutrient supplementation likely benefits and nutrition labs should be monitored at least qtrimester with supplementation as indicated, in close conjunction with her GI team. The risks of hypertension in include (but are not limited to) preeclampsia/eclampsia, endorgan complications, CVA, growth restriction, stillbirth and need for premature delivery. Should she decide to conceive, baseline assessment of kidney, liver and cardiac function are recommended: ECG (echocardiogram if LVH identified), CMP, CBC and urine protein. She should see MFM at time of12-14 week ultrasound if she conceives for consultation to review monitoring. Summary of Recommendations: Problem List Items Addressed This Visit Neurology Primary narcolepsy without cataplexy Current Assessment & Plan Daily amphetamine with good function Discussed risks/benefits/alternatives from perspective Can consider in at medical doses if needed for function, risk to fetus uncertain but likely not as high as reported risk for illicit amphetamine use Epilepsy (HCC) Overview electrical status epilepticus during sleep (ESES) off AEDs since 2018 Current Assessment & Plan Given off AEDs since 2018 would anticipate good outcome Discussed risks of seizure disorder in , many medications are safe Recommend vitamin with folic acid preconception Cardiovascular Elevated blood pressure reading without diagnosis of hypertension Current Assessment & Plan BP low today but on propranolol Would recommend baby aspirin for preeclampsia risk reduction if can tolerate in POTS (postural orthostatic tachycardia syndrome) Current Assessment & Plan can improve POTS symptoms in short term Some patients do require IV fluids or other interventions Discussed early labor epidural to mediate response to uterine contractions and expectations for If continues propranolol would recommend growth surveillance as some studies show correlationwith FGR Relevant Orders CONSULT TO RHEUM/IMMUN DISEASE CONSULT TO MEDICAL GENETICS - GENERAL Liver hemangioma Overview She has known liver lesion consistent with hemangioma measuring 3.8 x 2.8 cm on MRI in 2022. Current Assessment & Plan Discussed can be estrogen sensitive Case reports of hemorrhage/rupture in with extremely poor outcomes Consider seeing extruder operator regarding hemangioma in preconception context as will need very close monitoring for any signs/symptoms rupture if she conceives Pulmonary Mild intermittent asthma without complication Current Assessment & Plan Albuterol as needed May affect medications given in for HTN or bleeding at delivery Gastrointestinal Chronic superficial gastritis without bleeding (Chronic) Current Assessment & Plan Following with GI at [facility] Drug-induced constipation Current Assessment & Plan Discussed can slow gut motility and worsen gastroparesis and constipation Would require close follow up with GI and may worsen if she conceives Gastroparesis Current Assessment & Plan slows gut motility, may worsen if she conceives Following closely with GI Relevant Orders CONSULT TO RHEUM/IMMUN DISEASE CONSULT TO MEDICAL GENETICS - GENERAL Other Visit Diagnoses Encounter for preconception consultation - Primary Chronic fatigue syndrome Relevant Orders CONSULT TO RHEUM/IMMUN DISEASE CONSULT TO MEDICAL GENETICS - GENERAL History of foot fracture Relevant Orders CONSULT TO MEDICAL GENETICS - GENERAL Thank you for allowing us to participate in the care of this patient. Please do not hesitate to contact our office with any questions or concerns. Consultation requested by Dr. Rider for an opinion regarding medical complications and preconception consultation. My final recommendations will be communicated back to the requesting physician by way of shared Medical record or letter to requesting physician via [place] mail. I spent 55 minutes in the visit, with more than 50% of the total ault-ai-cmon time of the visit in counseling / coordination of care. Lizbeth Constantino MD December 09, 2023 4:14 PM documented in this encounterMartin [facility] Hospital06-03-2024 Instructions* Patient Instructions* Padmini Domingo RD - 12/08/2023 8:48 AM EDT Nutrition Inventions Low fat low fiber for gastroparesis Small frequent meals, make sure eating something every 2-3 hours Protein at every meal and snack Soluble fiber supplement at night (once/day) might help with the consistency of your stools. And taking it at night might prevent any gastroparesis side effects from a fiber supplement Sunfiber, samples from this site [email or web address]://[employer]/ Oral rehydration solution as much as you need during the summer or when you are feeling dehydrated 3-5 serving of fruits/vegetables daily (1/2 cup at time) eating a blend or raw and cooked fruits tohelp with consistency of stools Add one new food at a time (one per day) Okay to add more whole pieces chicken and steak. Try larger pieces of beef in stews, or strips of beef in fajitas and then if you tolerate these foods, can consider trying a lean steak fillet. Make sure to give 20ish chews before swallowing Follow up with Padmini Domingo RD as needed please call [phone] option 0 documented in this encounter[facility] History of Present illness Narrative* Padmini Domingo RD - 12/08/2023 8:30 AM EDT GI Nutrition TeleHealth Consult - Re Assessment I have communicated my name and active licensure. The patient s identity and physical location wereverified at the time of this visit. Either the patient or their legal scheduling representative has been informed of the risks and benefits of -- and alternatives to -- treatment through a remote evaluation andconsents to proceed with the evaluation remotely Some elements copied from my note on 09/29/2023 have been updated and all reflect current decision making from today, December 08, 2023 Nutrition Diagnosis: Altered Gastrointestinal Tract Function, related to, H Pylori, as evidenced byabd pain and need for abx, intermittent loose stools and constipation . RECOMMENDED MALNUTRITION DIAGNOSIS: NO MALNUTRITION IDENTIFIED NUTRITION CARE PLAN Nutrition Intervention December 08, 2023 : Diet: --low fat low fiber diet for presumed gastroparesis --small freqeunt meals, eat something every 2-3 hours --protein with every meal and sanck Vitamins/Minerals: --continue MVI --potassium per provider Oral supplements: --sunfiber once/day at night --ORS as needed Nutrition Monitoring & Evaluation: improvement in GI symptoms Criteria: per pt report Need for Follow up: as needed PROGRESS: This is a 23 year-old female with an underlying diagnosis of autoimmune gastritis since 2023 who requested appointment by herself. PMH of POTS, migraines, narcolepsy, epilepsy, GERD and gastroparesis, went to the ED for nausea and abd pain. CT was normal but saw large stool burden, EDG completed yao t showed gastritis, plan for Carafate 1gm, stop Protonix, and Zofran as needed Since last RDN encounter pt was positive for H Pylori and was given abx for treatment developed thrush and went to ENT who change abx. Since the CT showed a stool burden Dr. Martines wanted to clear her out and then start Linzess to keep her regular. Today, patient reports the following: --pt is feeling much better even though the H pylori treatment did not go smoothly (throat and tongue infection) --since she started the medication she has been feeling a lot better --has been eating better and her appetite is increased, has started on linzess and now stools are loose and soft --has had some taste changes with the abx --pt is feeling hydrated at this time Current Clinical Symptoms # of bowel movements daily: 2-3 times.day # of liquid stools daily: most Consistency: loose, soft Bloody bowel movements: no Urgency: yes, no accidents Abdominal pain: yes, which has improved Abdominal distention: yes, a little (improved) right after eating larger meals Nausea/vomiting: no, much improved (has zofran and takes it has needed) Heartburn/reflux: yes, comes and goes (does not take meds) Nutrition Intervention September 29, 2023 : Diet: --balance of soluble and insoluble fiber --met --low fat foods, 5-7gm/fat per meal --met --protein with every meal and snack --met --65-70 ounces fluid per day --met --small frequent meals, make sure to eat something small every 2-3 hours --met Vitamins/Minerals: --okay to continue current --met Oral supplements: --low sugar high protein shakes --met --ORS as needed --met Intake: Appetite is improving, better Diet History: Breakfast - yogurt and granola (small amounts) and strawberries, cereal with fair life milk Snack - small snack, chips, carnation, pudding fruit cup, crackers Lunch - varies, leftovers from the night before, mac and cheese, pasta and chicken, grapes, peachesand oranges Snack - small will eat something ever 2-3 hours, crackers, and cheese sticks Dinner - vegetables cooked carrots green beans, cooed, potatoes, rice and meat, chicken pork, ground beef, Snack - varies something like above, yogurt and bowl of cereal Beverages - water, gatorade, carnation Vitamins/Supplements - --MVI --potassium Allergies/Intolerance: --gluten (abd pain) --fish (does not like it) --beans (does not like, will eat baked beans) Hydrocodone-Acetaminophen, Latex, Omnicef [Cefdinir], Penicillins, Benadryl [Diphenhydramine], Droperidol, Compazine [Prochlorperazine], Gluten, and Versed [Midazolam Hcl] Medications: Current Outpatient Medications Medication Sig Dispense Refill omeprazole (PRILOSEC) 20 mg capsule Take 1 capsule by mouth two times a day for 10 days. 20 capsule0 bismuth subsalicylate (PEPTO-BISMOL) 262 mg chewable tablet Take 2 tablets by mouth four times daily for 10 days. 80 tablet 0 linaCLOtide (LINZESS) 290 mcg capsule Take 1 capsule by mouth daily at 6 am. 30 capsule 2 peg 3350-Electrolytes (GOLYTELY) 236-22.74-6.74 -5.86 gram suspension Refer to printed patient instructions that will be mailed to you. 4000 mL 0 folic acid 1 mg tablet Take 1 tablet by mouth once daily. potassium chloride SR (MICRO-K) 10 mEq CR capsule Take by mouth. ondansetron (ZOFRAN) 4 mg tablet Take 4 mg by mouth every 8 hours as needed for nausea/vomiting. maalox-lidocaine (GI COCKTAIL) 2:1 liqd Take 10 mL by mouth every 6 hours as needed (GI upset or pain). 600 mL 0 polyethylene glycol 3350 17 gram packet Take 1 Packet by mouth once daily. Dissolve dose in 4 - 8 ounces of liquid and take as directed. senna (SENOKOT) 8.6 mg tab 1 tablet by ORAL/FEEDING TUBE route two times a day. propranolol ER (INDERAL LA) 60 mg 24 hr capsule Take 1 capsule by mouth once daily. 90 capsule 3 methylphenidate ER (CONCERTA) 18 mg biphasic tablet Take 1 tablet by mouth every morning for 30 days. 30 tablet 0 albuterol HFA (PROVENTIL HFA, VENTOLIN HFA) 90 mcg/actuation inhaler Inhale 2 Puffs as instructed every 4 hours as needed. 18 g 4 loratadine (CLARITIN) 10 mg tablet Take 10 mg by mouth once daily. MULTIVITAMIN ORAL Take 1 tablet by mouth once daily. No current facility-administered medications for this visit. Anthropometrics: Height: 5'2 Weight history: 54kg (11/12/2023) 52.3kg (09/24/23), 53.5 kg (09/01/23), 53.7kg (06/23/2023) UBW: 120# Goal weight: 120# BMI: 22.1--normal Weight has increased by 1.7kg over 2 months representing a 3.1% weight change- non significant. Estimated needs: Calories: 1550 - 1850 kcals/day determined by 30- 35 kcal/kg Protein: 55 - 65 g/day determined by 1.0-1.2 g/kg Malnutrition Screening Significant unintentional weight loss? No Eating less than 75% of usual intake for more than 2 weeks? No Potential Signs of Inflammation: unable to determine at this time Education Materials Provided: None this visit Referred/Supervised by: Self/Dr Gustabo GARIBAY Billing Type: Re-assess/15 min [address] documented in this encounterMartin [facility]05-31-[facility]24 Telephone encounter Note * Telephone Encounter - Mirian Sanchez RN - 12/05/2023 4:17 PM EDT Patient notified and voiced understanding. Mirian Sanchez RN [facility] Miscellaneous Notes* Telephone Encounter - Mirian Sanchez RN - 12/05/2023 4:17 PM EDT Patient notified and voiced understanding. Mirian Sanchez RN * Telephone Encounter - Zuleyma Maharaj APRN.CNP - 12/05/2023 4:02 PM EDT If she is not sexually active, there is no concern at this time. Almost all women will have a menstrual cycle change because many different things can affect the menstrual cycle including stress, medication, sleep, diet etc. Zuleyma Maharaj APRN.CNP * Telephone Encounter - Eden Felton LPN - 12/05/2023 3:24 PM EDT Patient called stating that she recently had GI issues and was treated for H Pylori ( was on several different antibiotics. Patient states that she had her normal menses then 10 days later began to have vaginal bleeding again like a menses. Bleeding is not heavy. No c/o pain. Patient concerned something is wrong? Stress from recent GI issues? Patient is not on birthcontrol-not sexually active Patient would like message addressed. Provider is out of office until Friday documented in this encounterMartin [facility]05-31-2024 Telephone encounter Note * Telephone Encounter - Zuleyma Maharaj APRN.CNP - 12/05/2023 4:02 PM EDT If she is not sexually active, there is no concern at this time. Almost all women will have a menstrual cycle change because many different things can affect the menstrual cycle including stress, medication, sleep, diet etc. Zuleyma Maharaj APRN.NEERU [facility] Work Phone: [phone]) 276-500205-31-2024 Telephone encounter Note* Telephone Encounter - Eden Felton LPN - 12/05/2023 3:24 PM EDT Patient called stating that she recently had GI issues and was treated for H Pylori ( was on several different antibiotics. Patient states that she had her normal menses then 10 days later began to have vaginal bleeding again like a menses. Bleeding is not heavy. No c/o pain. Patient concerned something is wrong? Stress from recent GI issues? Patient is not on birthcontrol-not sexually active Patient would like message addressed. Provider is out of office until Friday [facility] Telephone encounter Note* Telephone Encounter - Bertha Allen RN - 12/03/2023 12:09 PM EDT Spoke with patient. Not currently . Agreeable to coming at 2:40 PM for consult only. Bertha Allen RN [facility] Miscellaneous Notes* Telephone Encounter - Bertha Allen RN - 12/03/2023 12:09 PM EDT Spoke with patient. Not currently . Agreeable to coming at 2:40 PM for consult only. Bertha Allen RN * Telephone Encounter - Kayleigh Olea RN - 12/03/2023 11:57 AM EDT Left message foor patient to return phone call. Patient has an upcoming appointment with [facility]. Appointment notes state consultation and OB ultrasound. Please confirm with patient that she is NOT and that this is preconceptual counseling. Please make appropriate documentation on appointment. Also , please ask her if she could come 20 minutes prior to her scheduled appointment time. documented in this encounterMartin [facility] Hospital05-29-2024 Telephone encounter Note * Telephone Encounter - Kayleigh Olea RN - 12/03/2023 11:57 AM EDT Left message foor patient to return phone call. Patient has an upcoming appointment with [facility]. Appointment notes state consultation and OB ultrasound. Please confirm with patient that she is NOT and that this is preconceptual counseling. Please make appropriate documentation on appointment. Also , please ask her if she could come 20 minutes prior to her scheduled appointment time. [facility] Telephone encounter Note* Telephone Encounter - Megan Mcgregor - 11/17/2023 8:54 AM EDT Referral to [facility] received. Sent to [facility] team to assist. [facility] Miscellaneous Notes* Telephone Encounter - Megan Mcgregor - 11/17/2023 8:54 AM EDT Referral to [facility] received. Sent to [facility] team to assist. documented in this encounterMartin [facility] Hospital05-10-2024 Telephone encounter Note * Telephone Encounter - Gunjan Frank RN - 11/14/2023 10:43 AM EDT Per . I met Mikayla on Friday for the first time. She has been off work for GI Sx and her Sx are much better. No need for her to be off work. She asked for a letter saying ok to go back to work but wants to do it gradually. Can you help with her request? [facility] Gunjan Frank RN [facility] Miscellaneous Notes* Telephone Encounter - Gunjan Frank RN - 11/14/2023 10:43 AM EDT Per . I met Mikayla on Friday for the first time. She has been off work for GI Sx and her Sx are much better. No need for her to be off work. She asked for a letter saying ok to go back to work but wants to do it gradually. Can you help with her request? Letter sent to patient mychart. Gunjan Frank RN documented in this encounterMartin [facility] Hospital05-10-2024 History of Present illness Narrative* Lizbet Rider MD - 11/14/2023 8:22 AM EDT Mikayla is a 23 year old No obstetric history on file. who presents for an annual gynecologic exam without complaints. She is getting in May. Patient is considering but is concerned due to her medical issues. Menses: cycles every 28-30 days and 5-6 days of flow. Contraception: none HPV vaccine: No Last Pap: never HPV: N/A History of abnormal pap: No Last mammogram: never Sexually active: Never OB History No obstetric history on file. 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 Breast: No breast lumps, nipple d/c, overlying skin changes, redness or skin retraction. Allergies and current medication updated:Yes EXAM: LMP 10/25/2023 GENERAL: pleasant, female in no apparent distress BREAST: patient declines PELVIC: patient declines ASSESSMENT/PLAN: 1) Health maintenance: Pap/HPV - patient declines as never sexually active HPV vaccine: discussed, not interested 2) Contraception: none. Contraceptive options reviewed and information provided. Discussed Mirena & Paragard IUDs in detail. 3) STD screening: Declined STD check. 4) Follow up one year or sooner as needed 5) Preconception consult with [facility] ordered Lizbet Rider MD documented in this encounterMartin [facility] Hospital05-08-2024 Instructions* Patient Instructions* Bernie Martines MD - 11/12/2023 9:26 AM EDT Nausea/ Vomiting - Get an X ray to ensure no constipation - Once constipation is ruled out, will then proceed with a 4-hour gastric emptying study - Continue small meal, low fat diet - If above is normal, we will revisit the differential diagnosis including CVS and gallbladder disease Abdominal pain: - Gastric emptying study per above. - If negative, we will revisit GB disease, functional dyspepsia and ?constipation - H pylori stool antigen - Celiac comprehensive panel [place]: - start with low FODMAP diet - we will revisit in 3 months Autoimmune gastritis: Not sure you have full blown AIG. Joseph discuss wit pathology Let's plan on EGD q 5 years to ensure you are not developing it given + antibodies Vitamin B12 and iron levels checks every 1-2 years documented in this encounterMartin [facility] Hospital05-08-2024 History of Present illness Narrative* Bernie Martines MD - 11/12/2023 8:40 AM EDT Images from the original note were not included. DEPARTMENT OF GASTROENTEROLOGY - NEW PATIENT/CONSULT REASON FOR VISIT Mikayla Blunt is a 23 year old female who is scheduled at the request of Dr. Lopes (Autoimmune gastritis). My final recommendations will be communicated back to the requesting physician by the wayof the shared medical record, fax, or via US Mail HISTORY OF PRESENT ILLNESS Mikayla Blunt is a 23 year old female with POTS, narcolepsy, childhood epilepsy (now off seizure meds), ?gastroparesis, ? Autoimmune gastritis who presents today for an evaluation of abdominal pain,nausea, vomiting, belching, decreased appetite, weight loss and constipation. She tells me she has had GI issues for many years now. Per mother, around 17 years old, she developed persistent nausea, vomiting, abdominal pain and belching. She had an EGD and Manley test with pediatrics GI and pH study per mother was normal. EGD with no findings. She tried getting off gluten andthat helped with significant improvement in Sx until recently when she had foot surgery October 2022,used tramadol for 2 days and had severe constipation and severe RUQ with no BM for 9 days. She wentto the ER and CT A/P showed significant constipation. She was treated with Protonix for dyspepsia and a large amount of laxatives for her to have a BM. 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 Pain does not wake her up from sleep. It does not prevent her from eating, at least not recently. Maalox/lidocaine helps with the pain and the nausea. The pain started after surgery. She is nauseated mostly if her stomach is empty. Once she eats, it might take it away or make it worse. Tomatoes, oranges and onions help. She has been eating a lot of jello, apple sauce, grounded meats help. Smaller meals seem to help a lot. She uses Maalox/Lidocaine and Zofran. She has been weaning off of them and managing with dietary changes. The longest she's gone without any N/V was several months and the shortest duration without N/V was2 days. When she gets N/V bouts, they last for 2 weeks. Otherwise she has daily low grade pain but not nausea. She also reports a lot of belching, especially after eating and they seem forceful and loud. Not much flatulence. Not much bloating. She developed constipation after surgery in 2022 and now on Miralax daily she has regular BMs daily, [place] type 4. She tells me she has been developing rashes around her mouth, diagnosed with gage-oral dermatitis by dermatology. Treated with and responded to Doxycycline (3-4 months). Also had a rash on her legs. No joint pain. She follows a strict gluten free diet. Mother has Grave's disease. Maternal uncle has celiac disease and ?autoimmune hepatitis. No family history of stomach cancer. Only cancer in family is paternal grandmother had breast cancer. RECENT LABS Latest Ref Rng 09/20/2023 Gastric Parietal Cell IgG Qualitative Negative Positive ! Gastric Parietal Cell IgG Quantitative <=20.0 Units 128.3 (H) Latest Ref Rng 09/20/2023 Intrinsic Factor Blocking Antibody Negative Negative Latest Ref [facility] 09/20/2023 Gastrin <115.0 pg/mL 151.0 (H) Latest Ref Rn 09/20/2023 Folate >4.7 ng/mL >20.0 Latest Ref Rn 09/23/2023 WBC 3.70 - 11.00 k/uL 8.07 RBC 3.90 - 5.20 m/uL 4.08 Hemoglobin 11.5 - 15.5 g/dL 12.3 Hematocrit 36.0 - 46.0 % 34.7 (L) MCV 80.0 - 100.0 fL 85.0 MCH 26.0 - 34.0 pg 30.1 MCHC 30.5 - 36.0 g/dL 35.4 RDW-CV 11.5 - 15.0 % 11.8 Platelet Count 150 - 400 k/uL 149 (L) MPV 9.0 - 12.7 fL 10.0 Absolute nRBC <0.01 k/uL <0.01 Latest Ref Rn 09/19/2023 Ferritin 14.7 - 205.1 ng/mL 70.3 Latest Ref Rn 09/19/2023 Iron 41 - 186 ug/dL 62 TIBC 232 - 386 ug/dL 302 Transferrin Saturation 15.0 - 57.0 % 20.5 Latest Ref Rn 09/19/2023 Vitamin B12 232 - 1,245 pg/mL 926 XR ABD/PEL 08/26/2023 CT ABD/PEL 09/15/23. CT ABD/PEL 08/27/23. MRI LIVER 12/16/2022 RESULT: Liver: Normal morphology. No hepatic steatosis. Intermediate increased T2 signal mass adjacent to the caudate measuring up to 3.8 x 2.8 cm with patchy peripheral enhancement demonstrated no complete fill-in. Postcontrast sequences are slightly limited by motion. Biliary: No bile duct dilation. Gallbladder is normal. Spleen: No mass. No splenomegaly. Pancreas: No mass or duct dilation. Adrenals: No mass. Kidneys: No solid or cystic mass. No hydronephrosis. GI: No dilated bowel or wall thickening along imaged segments. Lymph nodes: No abdominal lymphadenopathy. Mesentery / Peritoneum / Retroperitoneum: No ascites or mass. Vasculature: The celiac axis and SMA are patent. The portal vein and branches, splenic vein, SMV, and hepatic veins are patent. Bones/Soft Tissues: No suspicious lesion. Lower chest: Unremarkable. XR ABD Series 11/03/22 RESULT: Chest: Heart is normal in size. No pneumothorax, pleural effusions, or focal consolidation. KUB: No free air under the hemidiaphragms. Nonobstructive bowel gas pattern. EGD 09/22/2023 Findings: The examined esophagus was normal. The entire examined stomach was normal. This was biopsied with a cold forceps for mapping for autoimmune gastritis. The examined duodenum was normal. Impression: - Normal esophagus. - Normal stomach. Gastric mapping for autoimmune gastritis: antrum lesser curvature, antral greatercurvature, body lesser curvature, body greater curvature, and incisura. - Normal examined duodenum. FINAL DIAGNOSIS A. Duodenum, biopsy: - Duodenal mucosa with no diagnostic abnormality. B. Stomach, biopsy: - Gastric antral mucosa with chronic inactive gastritis (see comment). C. Esophagogastric junction, biopsy: - Reactive squamous and inflamed gastric cardia-type mucosa, negative for intestinal metaplasia. Diagnosis Comment B. Given the presence of chronic inactive gastritis, a Helicobacter pylori immunohistochemical stain has been performed and reveals no evidence of Helicobacter pylori microorganisms in this material. EGD 11/04/2022 Findings: The examined duodenum was normal. This was biopsied with a cold forceps for r/o celiac disease. Scattered minimal inflammation characterized by congestion (edema) and erythema was found in the stomach. This was biopsied with a cold forceps for Helicobacter pylori testing. The cardia and gastric fundus were normal on retroflexion. The Z-line was irregular and was found 38 cm from the incisors. This was biopsied with a cold forceps for evaluation to rule out Perez's Esophagus. A small hiatal hernia was present. Impression: - Normal examined duodenum. Biopsied. - Gastritis. Biopsied. - Z-line irregular, 38 cm from the incisors. Biopsied. - Small hiatal hernia. FINAL DIAGNOSIS A. Stomach, lesser antrum, biopsy: - Mild chronic inactive gastritis. - No evidence of intestinal metaplasia or dysplasia. B. Stomach, greater antrum, biopsy: - Mild chronic inactive gastritis. - No evidence of intestinal metaplasia or dysplasia. C. Stomach, lesser gastric body, biopsy: - Chronic mildly active gastritis. Special stain pending. - No evidence of intestinal metaplasia or dysplasia. D. Stomach, greater gastric body, biopsy: - Chronic mildly active gastritis.Special stain pending. - No evidence of intestinal metaplasia or dysplasia. E. Stomach, incisura, biopsy: - Chronic mildly active gastritis. Special stain pending. - No evidence of intestinal metaplasia or dysplasia. JRG/kr 09/23/2023 08/25/2019 CONVERTED FINAL DIAGNOSIS 1. Duodenum, biopsy (A) - Duodenal mucosa with no pathologic diagnostic abnormality; negative for celiac disease, granulomas and dysplasia. 2. Stomach, biopsy (B) - Mild chronic inactive gastritis; see comment. 3. Esophagus, distal, biopsy (C) - Squamous mucosa with no pathologic diagnostic abnormality; negative for intraepithelial eosinophils. 4. Esophagus, proximal, biopsy (D) - Squamous mucosa with no pathologic diagnostic abnormality; negative for intraepithelial eosinophils. /david 08/26/2019 CONVERTED ADDENDA ADDENDUM Given the background of chronic gastritis a Helicobacter pylori immunostain was performed on block B and is negative for Helicobacter pylori organisms. PAST MEDICAL HISTORY Diagnosis Date Acquired mallet [...] TONSIL AND ADENOI UNDER AGE 14 02/12/2010 Current Outpatient Medications Medication Sig Dispense Refill ondansetron (ZOFRAN) 4 mg tablet Take 4 mg by mouth every 8 hours as needed for nausea/vomiting. maalox-lidocaine (GI COCKTAIL) 2:1 liqd Take 10 mL by mouth every 6 hours as needed (GI upset or pain). 600 mL 0 polyethylene glycol 3350 17 gram packet Take 1 Packet by mouth once daily. Dissolve dose in 4 - 8 ounces of liquid and take as directed. senna (SENOKOT) 8.6 mg tab 1 tablet by ORAL/FEEDING TUBE route two times a day. propranolol ER (INDERAL LA) 60 mg 24 hr capsule Take 1 capsule by mouth once daily. 90 capsule 3 methylphenidate ER (CONCERTA) 18 mg biphasic tablet Take 1 tablet by mouth every morning for 30 days. 30 tablet 0 albuterol HFA (PROVENTIL HFA, VENTOLIN HFA) 90 mcg/actuation inhaler Inhale 2 Puffs as instructed every 4 hours as needed. 18 g 4 loratadine (CLARITIN) 10 mg tablet Take 10 mg by mouth once daily. MULTIVITAMIN ORAL Take by mouth once daily. No current facility-administered medications for this visit. ALLERGIES Allergen Reactions Hydrocodone-Acetami* Swelling Latex Swelling Omnicef [Cefdinir] Swelling Penicillins Rash Benadryl [Diphenhyd* Mental Status Change agitation Droperidol Other: See Comments akathesia Compazine [Prochlor* Intolerance Restlessness, agitation Gluten GI Upset Versed [Midazolam H* Mental Status Change Pulling out IV's, extremely confused and restless, getting on hands and knees Social History Tobacco Use Smoking status: Never Passive exposure: Never Smokeless tobacco: Never Vaping Use Vaping Use: Never used Substance Use Topics Alcohol use: No Drug use: No REVIEW OF SYSTEMS Per HPI PAST MEDICAL HISTORY PEr HPI PHYSICAL EXAMINATION BP 115/76 Pulse 85 Temp (Src) 97.4 (Temporal) Ht 5' 2 (1.58m) Wt 116 lb (52.6kg) SpO2 100% LMP 10/25/2023 BMI 21.21 kg/(m^2). General Appearance: Well appearing, alert, in no acute distress, well-hydrated, well nourished. Eyes: PERRLA, conjunctiva and sclera normal Lungs: Clear to anterior auscultation Heart: regular rate and rhythm Abdomen: not distended, normal bowel sounds, soft and depressible, no guarding or rebound, no palpable mass, no organomegaly, Carnett sign negative Rectal exam: Deferred. Extremities: no cyanosis or edema Skin: no jaundice, no spider angiomas, no palmar erythema Neuro:alert, oriented x 3, pleasant and in no acute distress Assessment IMPRESSION Mikayla Blunt is a 23 year old female with POTS, narcolepsy, childhood epilepsy (now off seizure meds), ?gastroparesis, ? Autoimmune gastritis, hepatic hemangioma (follows with Dr. Jaffe) who presents today for an evaluation of abdominal pain, nausea, vomiting, belching, decreased appetite, weight loss and constipation. PLAN (R10.13) Epigastric pain (primary encounter diagnosis) Discussed differential including gastroparesis vs. Constipation vs GB disease (dyskinesia? SOD) vs functional dyspepsia in the setting of POTS - GES after KUB - If negative, we will revisit GB disease, functional dyspepsia and ?constipation - H pylori stool antigen given active gastritis on most recent EGD - Celiac comprehensive panel once she sends me the genetic test she had done. Does not tolerate gluten. 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 No evidence of AIG on pathology but will email pathologist to check if there are features of early AIG given active gastritis on recent gastric bx. If no features of AIG, will repeat EGD in years to check for progression. Will check B12 and iron studies q1-2 years. Recheck gastrin off PPI (R14.2) Belching Dietary vs. SIBO vs behavioral Low FODMAP diet to start with (E87.6) Hypokalemia She tells me her most recent K was 3.5 with her PCP and that was attributed to her GI issues. She has not thrown up in a month, making GI lossess unlikely. Advised she discusses this with her PCP foradditional work. Advised focusing on K rich foods. Plan is to follow up in three months. I spent a total of 60 minutes on the date of the service which included preparing to see the patient, [id number] patient care, completing clinical documentation, obtaining and/or reviewing separately obtained history, performing a medically appropriate examination, counseling and educating the pat ient/family/caregiver, and ordering medications, tests, or procedures. Bernie Martines MD November 12, 2023 Answers submitted by the patient for this visit: Review of Systems Gastroenterology (Submitted on 11/07/2023) Fever: No Chills: No Night Sweats: No Unitentional Weight Change: Yes A Cough: No Difficulty Breathing: No Chest Pain: No Belly pain: Yes A feeling of fullness or have belly pain after eating: Yes Food getting stuck in your throat or chest after eating: No Nausea - that is, a feeling like you could vomit: Yes Regurgitation - that is, food or liquid coming back up into your throat or mouth without vomiting, or feel burning behind your breast bone: Yes Loss of appetite: Yes To throw up or vomit: Yes Blood in your stools: No Black tarry stools: No Loose or watery stools: No The feeling like you need to empty your bowels right away - that is, feel as if you would have an accident: No Bowel incontinence - that is, have an accident because you cannot make it to the bathroom in time: No Problems with straining while having bowel movements , hard or lumpy stools, or feel unfinished (that you have not passed all your stool): No Pain in rectum or anus during bowel movements: No Problems with jaundice - that is, yellow discoloration of your skin or eyes, now or in the past: No Problems with having to flush the toilet more than two times due to oily stool, or see stool floating with oil: No documented in this encounterMartin [facility]04-[facility] History of Present illness Narrative* Praneeth Jaffe MD - 10/14/2023 7:57 AM EDT Images from the original note were not included. DEPARTMENT OF GASTROENTEROLOGY/HEPATOLOGY - NEW PATIENT/CONSULT REASON FOR VISIT Mikayla Ursula Blunt is referred in consultation by Amy Sanders for an opinion regarding an incidentallyfound hepatic hemangioma and my final recommendations will be communicated back to the requesting physician by way of the electronic medical record (EMR). HISTORY OF PRESENT ILLNESS Mikayla Blunt is a 23 year old female who presents today for an evaluation of hepatic hemangioma. She has been admitted recently (September 21-2023) to GI inpatient service for long-standing nausea and vomiting at which time she was diagnosed with autoimmune gastritis. She is scheduled to see Dr. Bullock in outpatient for same issue. Patient with underlying childhood seizure disorder and Narcolepsy. She also has PMH of POTS, GERD and gastroparesis. 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 She has been taking Zofran in daily basis since discharge to control N+V which is working well. She presented with her mom and presented me with two issues: 1- Incidentally found hepatic hemangioma with at least [address]/MRI imaging over one year period with no change in size (about 3.9 cm). 2- RUQ abdominal pain that is sharp, stabbing and got much worst while she had vomiting prior to hospital admission. It is relatively controlled with Tylenol. Chronic constipation now successfully managed with Miralax. PAST MEDICAL HISTORY PAST MEDICAL HISTORY Diagnosis Date Acquired mallet [...] (postural orthostatic tachycardia syndrome) PAST SURGICAL HISTORY PAST SURGICAL HISTORY Procedure Laterality Date DENTAL [...] TONSIL AND ADENOI UNDER AGE 14 02/12/2010 SOCIAL HISTORY Social History Tobacco Use Smoking status: Never Passive exposure: Never Smokeless tobacco: Never Vaping Use Vaping Use: Never used Substance Use Topics Alcohol use: No Drug use: No FAMILY HISTORY Family History Problem Relation Age of Onset Allergies Father Asthma Brother Allergies Maternal Grandmother Hypertension Maternal Grandfather Allergies Maternal Grandfather Heart Maternal Grandfather mat side/pat side Current Outpatient Medications Medication Sig Dispense Refill ondansetron (ZOFRAN) 4 mg tablet Take 4 mg by mouth every 8 hours as needed for nausea/vomiting. maalox-lidocaine (GI COCKTAIL) 2:1 liqd Take 10 mL by mouth every 6 hours as needed (GI upset or pain). 600 mL 0 polyethylene glycol 3350 17 gram packet Take 1 Packet by mouth once daily. Dissolve dose in 4 - 8 ounces of liquid and take as directed. propranolol ER (INDERAL LA) 60 mg 24 hr capsule Take 1 capsule by mouth once daily. 90 capsule 3 methylphenidate ER (CONCERTA) 18 mg biphasic tablet Take 1 tablet by mouth every morning for 30 days. 30 tablet 0 albuterol HFA (PROVENTIL HFA, VENTOLIN HFA) 90 mcg/actuation inhaler Inhale 2 Puffs as instructed every 4 hours as needed. 18 g 4 loratadine (CLARITIN) 10 mg tablet Take 10 mg by mouth once daily. MULTIVITAMIN ORAL Take by mouth once daily. senna (SENOKOT) 8.6 mg tab 1 tablet by ORAL/FEEDING TUBE route two times a day. sucralfate (CARAFATE) 1 gram tablet Take 1 tablet by mouth before meals and at bedtime. (Patient not taking: Reported on 10/14/2023) 120 tablet 0 No current facility-administered medications for this visit. ALLERGIES Allergen Reactions Hydrocodone-Acetami* Swelling Latex Swelling Omnicef [Cefdinir] Swelling Penicillins Rash Benadryl [Diphenhyd* Mental Status Change agitation Droperidol Other: See Comments akathesia Compazine [Prochlor* Intolerance Restlessness, agitation Gluten GI Upset Versed [Midazolam H* Mental Status Change Pulling out IV's, extremely confused and restless, getting on hands and knees PHYSICAL EXAMINATION BP 120/78 Pulse 73 Temp (Src) 97.5 (Temporal) Ht 5' 2 (1.58m) Wt 117 lb 1 oz (53.1kg) SpO2 100% LMP 11/08/2022 BMI 21.41 kg/(m^2). General Appearance: Well appearing, alert, in no acute distress, well-hydrated, well nourished. Eyes: PERRLA, conjunctiva and sclera normal Oropharynx: Lips, tongue, and oral mucosa normal. Lungs:breath sounds clear to auscultation bilaterally, no crackles, rhonchi, or wheezes Heart: regular rate and rhythm, no murmurs or gallops. Abdomen: not distended, normal bowel sounds, soft and depressible, no guarding or rebound, no palpable mass, no organomegaly Extremities: no cyanosis or edema LABS Latest Ref Rng & Units 09/23/2023 09/21/2023 09/20/2023 CBC WBC 3.70 - 11.00 k/uL 8.07 5.46 5.39 RBC 3.90 - 5.20 m/uL 4.08 4.19 4.20 Hemoglobin 11.5 - 15.5 g/dL 12.3 12.4 12.5 Hematocrit 36.0 - 46.0 % 34.7 35.9 36.2 MCV 80.0 - 100.0 fL 85.0 85.7 86.2 MCH 26.0 - 34.0 pg 30.1 29.6 29.8 MCHC 30.5 - 36.0 g/dL 35.4 34.5 34.5 RDW-CV 11.5 - 15.0 % 11.8 11.8 11.9 Platelet Count 150 - 400 k/uL 149 150 150 MPV 9.0 - 12.7 fL 10.0 10.0 10.3 Latest Ref Rng & Units 09/25/2023 09/24/2023 09/23/2023 CMP Sodium 136 - 144 mmol/L 138 140 141 Potassium 3.7 - 5.1 mmol/L 4.0 4.1 3.5 Chloride 97 - 105 mmol/L 104 104 106 CO2 22 - 30 mmol/L 23 25 23 Glucose 74 - 99 mg/dL 91 89 98 BUN 7 - 21 mg/dL 12 11 9 Creatinine 0.58 - 0.96 mg/dL 0.80 0.82 0.73 EGFR >=60 mL/min/1.73m 108 105 120 Protein, Total 6.3 - 8.0 g/dL 6.4 Albumin 3.9 - 4.9 g/dL 4.2 4.3 Calcium 8.5 - 10.2 mg/dL 9.3 9.1 9.3 Bilirubin, Total 0.2 - 1.3 mg/dL 0.2 AST 13 - 35 U/L 15 ALT 7 - 38 U/L 8 Alkaline Phosphatase 34 - 123 U/L 42 No results found for: AFP CT Abdomen (September 2023): Liver: 3.9 x 3.5 cm low-attenuation lesion with peripheral, discontinuous nodular enhancement in segment I compatible with hemangioma. Additional subcentimeter low-attenuation lesions are unchanged from 12/16/2022 MRI and are likely benign. Normal liver morphology. Biliary: No bile duct dilation. Gallbladder is unremarkable. Spleen: No mass. No splenomegaly. Pancreas: No mass or duct dilation. Adrenals: No mass. Kidneys: No mass, calculus or hydronephrosis. GI tract: No dilation or wall thickening. The appendix is not identified. Lymph nodes: No abdominal or pelvic lymphadenopathy. Mesentery/Peritoneum: No ascites or mass. Retroperitoneum: No mass. Vasculature: - Abdominal aorta and iliac arteries: No aneurysm. - Celiac and SMA: Patent. - Portal venous system (SMV, splenic vein, portal vein and branches): Patent. - Hepatic veins: Patent. Pelvis: Trace ascites, likely physiologic. No mass or organized collection. Probable left ovarian corpus luteal cyst. Bones/Soft Tissues: No significant finding. Lower thorax: Unremarkable. Dope Edger (topogram) images: No additional findings. ASSESSMENT/PLAN Ms. Blunt is a 23 year old year old female who presents with . 1- Hepatic hemangioma that has been stable over the past year. Patient reassured. This is NOT likely to be associated with any pain or any symptoms. I see no need for any additional work up. We can recheck in one year one last time to endure no growth. 2- RUQ abdominal pain. Likely at least partially musculoskeletal in nature. Discussed with patient and suggested conservative management for now. Plan is to follow up in one year. Praneeth Jaffe MD October 14, 2023 7:57 AM documented in this encounterMartin [facility] Hospital03-29-2024 Telephone encounter Note * Telephone Encounter - Grace Mata - 10/03/2023 12:34 PM EDT PATIENT INFORMATION Record ID: [id number] Patient Name: [facility]: [facility]: [facility] Attending: Janet Villarreal [place]: [facility] Medicine INSTRUCTIONS MA to remind patient of appointment date, time, location SURVEY INFORMATION Medical/Nurse Commercial Collections Driver: Grace Mata 1. Your discharge instructions are important in guiding you through the recovery process. Is there anything I could help you clarify on your discharge instructions? (Standard Question) No 2. Do you have a follow up appointment related to your hospital stay scheduled within the next 30 days? (Standard Question) Yes 3. Many patients have concerns about their medications once they are home. Do you have any questions about getting or taking your medications? (Standard Question) No 4. Do you have any new or different symptoms? (Standard Question) No [facility]03-[facility] Miscellaneous Notes* Telephone Encounter - Grace Mata - 10/03/2023 12:34 PM EDT PATIENT INFORMATION Record ID: [id number] Patient Name: [facility]: [facility]: [facility] Attending: Janet Villarreal [place]: [facility] INSTRUCTIONS BILL to remind patient of appointment date, time, location SURVEY INFORMATION Medical/Nurse Commercial Collections Driver: Grace Mata 1. Your discharge instructions are important in guiding you through the recovery process. Is there anything I could help you clarify on your discharge instructions? (Standard Question) No 2. Do you have a follow up appointment related to your hospital stay scheduled within the next 30 days? (Standard Question) Yes 3. Many patients have concerns about their medications once they are home. Do you have any questions about getting or taking your medications? (Standard Question) No 4. Do you have any new or different symptoms? (Standard Question) No documented in this encounterMartin [facility] Hospital03-25-2024 Instructions* Patient Instructions* Padmini Domingo RD - 09/29/2023 9:00 AM EDT Nutrition Interventions Continue small frequent meals, eating every 2-3 hours. It is okay to make a larger meal and then split it in half eat one half and then 2 hours later eat the other half. This way you do not have to prepare 6 meals,, instead you are preparing three melas and splitting them in half. Balance of fiber to aid in bowel movements Soluble and in-soluble fiber: balance of both for complete bowel movements Start: adding in soft raw vegetables, for example 1/2 cup pealed cucumbers or shanks peppers (red) Okay to start adding some canned fruits like peaches, pears, mandrin oranges, pineapple (digested quickly and should not contribute to gastroparesis issues) Start with canned fruits and then advance to fresh fruits Low Fat Foods Avoid High fat foods, for example oil, olives and avocado and vegetables oils Nut butters, almond butter and peanut butter, sunflower seed butters Whole nuts and seeds High fat dairy: whole milk, whole fat yogurt, butter and margarine Keep packaged foods less that 5-7gm fat per serving Protein Foods (are digested second) Protein with every meal and snacks (aim for most meal and snacks) Liquid protein shakes once/twice per day Consider Gatorade protein clear or premier protein clear or regular https://www.gatorade.Likelii/protein/yzswwplu-wdti-tjlt-protein/gqckxrs-iugquj-vffba w-yyikq-whpmph-06983587802753 https://shop.Wisr.Likelii/wfhrm-kdqjz-gpkhfbv-pack/p/mynor-clearvp&c=premie rprotein@drinks Skim or 1% fair life milk (more protein and lactose free) Soy milk (best kind of milk alterative) OWYN (plant based and gluten free) https://yuback.Likelii/ Meat sources of protein, keep these soft, ground meats (keep lean and low fat), ground turkey or chicken, ground beef, make sure it is 90/10 or less Hydration Notes Utilize are oral rehydration solutions LMNT, this one is great for POTS symptoms (1000mg) packets that you add into water 16-24 ounces of water, see below for other options, if you do not like the LNMT, either of these products are good, and they are all gluten free Coconut water for potassium, when you are having some cramping Really important to maintain hydration status, continue 64-70 ounces is great, if you feel like youneed more, increase 4-5 ounces every few days until you reach your goal Follow up with Padmini Domingo RD 12/07 @8:30am virtually Oral rehydrations Solutions: These are isotonic solutions that better hydrate you than just plain water. They have a balance of sugar, sodium and other electrolytes to aid in hydration status >Here are some commercial products that you can get online, at grocery stores, and drug stores. These are typically packets that you add to water - drip drop packets https://www.dripdrop.Likelii/ - liquid IV packets https://www.liquid-iv.com/ - Pedialyte liters or packets https://www.pedialyte.Likelii/ >> You can also make your own at home using the following recipe. 1 cup of juice (apple, grape, cranberry) + 3 cups water + 1/2 teaspoon salt documented in this encounterMartin Memorial Hospital03-25-2024 History of Present illness Narrative* Padmini Domingo RD - 09/29/2023 8:30 AM EDT GI Nutrition TeleHealth Consult - Initial Assessment I have communicated my name and active licensure. The patient s identity and physical location wereverified at the time of this visit. Either the patient or their legal scheduling representative has been informed of the risks and benefits of -- and alternatives to -- treatment through a remote evaluation andconsents to proceed with the evaluation remotely Nutrition Diagnosis: Altered Gastrointestinal Tract Function, related to, GI dysmotility (gastroparesis, global dysmotility, colonic inertia) and gastritis, as evidenced by EDG, abd pain, constipation, nausea . RECOMMENDED MALNUTRITION DIAGNOSIS: NO MALNUTRITION IDENTIFIED NUTRITION CARE PLAN Nutrition Intervention September 29, 2023 : Diet: --balance of soluble and insoluble fiber --low fat foods, 5-7gm/fat per meal --protein with every meal and snack --65-70 ounces fluid per day --small frequent meals, make sure to eat something small every 2-3 hours Vitamins/Minerals: --okay to continue current Oral supplements: --low sugar high protein shakes --ORS as needed Nutrition Monitoring & Evaluation: improvement in GI symptoms, prevent further weight loss Criteria: per pt report, weight trend Need for Follow up: This is a 23 year-old female with an underlying diagnosis of autoimmune gastritis since 2023 who requested appointment by herself. PMH of POTS, migraines, narcolepsy, epilepsy, GERD and gastroparesis, went to the ED for nausea and abd pain. 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 which helped some, but symptoms have gotten worse over the last few months --about 2 months ago she states that she had these symptoms, in and out of ERs for abd pain and kept sending her home, ended up in at [facility] --states that medications are helping this time around, has been eating a little more --pt is having some muscle cramping, but otherwise feeling hydrated Current Clinical Symptoms # of bowel movements daily: 1-2 times/day (on miralax) # of liquid stools daily: none Consistency: soft Bloody bowel movements: no Urgency: yes, when taking the miralax Abdominal pain: yes, has been taking meds that has been helping, after eating and morning and nights Abdominal distention: yes, sometimes, every few days, does not wake up bloated Nausea/vomiting: yes, takes Zofran which helps Heartburn/reflux: yes, takes meds still has a lot of regergitation (no vomiting) Intake: Appetite is not good, wants to eat Diet History: Breakfast - has been eating, every few hours, 1 egg, baby yogurt pouch, apple juice every now and then, water Snack - a few hours later (2ish hours) jello or pudding, CIB Lunch - recently, small meal of pasta or mac and cheese, apple sauce Snack - pudding and jello (has been going down easy) chocolate chip cookies Dinner - small meal, has been eating a lot of rice, green beans, corn, broccoli, cauliflower, chicken (little bit) Snack - jello, pudding Beverages - carination breakfast (ready made), water, apple juice and lemonade Vitamins/Supplements - --MVI Allergies/Intolerance: --gluten (abd pain) --fish (does not like it) --beans (does not like, will eat baked beans) Hydrocodone-Acetaminophen, Latex, Omnicef [Cefdinir], Penicillins, Benadryl [Diphenhydramine], Droperidol, Compazine [Prochlorperazine], Gluten, and Versed [Midazolam Hcl] Medications: Current Outpatient Medications Medication Sig Dispense Refill ondansetron orally disintegrating (ZOFRAN ODT) 4 mg disintegrating tablet Take 1 tablet by mouth every 6 hours for 14 days. 56 tablet 0 maalox-lidocaine (GI COCKTAIL) 2:1 liqd Take 10 mL by mouth every 6 hours as needed (GI upset or pain). 600 mL 0 polyethylene glycol 3350 17 gram packet Take 1 Packet by mouth once daily. Dissolve dose in 4 - 8 ounces of liquid and take as directed. senna (SENOKOT) 8.6 mg tab 1 tablet by ORAL/FEEDING TUBE route two times a day. sucralfate (CARAFATE) 1 gram tablet Take 1 tablet by mouth before meals and at bedtime. 120 tablet 0 propranolol ER (INDERAL LA) 60 mg 24 hr capsule Take 1 capsule by mouth once daily. 90 capsule 3 methylphenidate ER (CONCERTA) 18 mg biphasic tablet Take 1 tablet by mouth every morning for 30 days. 30 tablet 0 albuterol HFA (PROVENTIL HFA, VENTOLIN HFA) 90 mcg/actuation inhaler Inhale 2 Puffs as instructed every 4 hours as needed. 18 g 4 loratadine (CLARITIN) 10 mg tablet Take 10 mg by mouth once daily. MULTIVITAMIN ORAL Take by mouth once daily. No current facility-administered medications for this visit. Anthropometrics: Height: 5'2 Weight history: 52.3kg (09/24/23), 53.5 kg (09/01/23), 53.7kg (06/23/2023) UBW: 120# Goal weight: 120# BMI: 21.1--normal Weight has decreased by 1.4kg over 2 months representing a 2.6% weight change- non significant. Estimated needs: Calories: 1550 - 1850 kcals/day determined by 30- 35 kcal/kg Protein: 55 - 65 g/day determined by 1.0-1.2 g/kg Malnutrition Screening Significant unintentional weight loss? No Eating less than 75% of usual intake for more than 2 weeks? Yes Potential Signs of Inflammation: imaging studies and microbiologic cultures In the context of Acute Illness or Injury based on: Insufficient Energy Intake: <75% for >7 days Education Materials Provided: None this visit Referred/Supervised by: Self/Dr Montejo MNT Billing Type: Initial Assess/15 min [address] documented in this encounterMartin Memorial Hospital03-22-2024 Miscellaneous Notes* Telephone Encounter - Kimberly Desouza - 09/26/2023 7:59 AM EDT Images from the original note were not included. [employer] message sent to patient with provider's response copied below Bernie Martines MD You 12 hours ago (7:36 PM) November 11 should be ok for autoimmune gastritis. Kimberly Mohamud * Telephone Encounter - Kimberly Desouza - 09/25/2023 4:26 PM EDT Call Center/patient phoned to make an appt with you for autoimmune gastritis, per discharge orders First available appt I could find is November 11 at 8:40 am Will you add sooner? [phone] Kimberly Mohamud documented in this encounterMartin [facility] Discharge summary Author Estiven Mayorga [facility] August 28, 2023 12:06am Note Date/Time August 27, 2023 10:06pm [facility] Medical Records Department [address] [place] [address] Emergency Department Summary 08/27/23 MR#: [id number] Acct: [id number] Name: MIKAYLA BLUNT Rep #:[id number] : 2000 22 From: Estiven Mayorga MD PCP: Catina Alford DO Status:REG E R Location: ED HPI HPI - GI History of Present Illness Chief Complaint: Abd Pain Nausea/Vomiting/Emesis GI Symptom: Positive for Nausea and Vomiting Onset: Today Severity: Mild Narrative Narrative: 22-year-old female past medical history of gastroparesis, seen by Dr. Lawrence, presents with her mother because of right upper quadrant abdominal pain that shehas had for the last 1.5 weeks. She states that she had been dealing with the pain and it was very similar to when she was admitted at [facility] with either a bowel obstruction or an ileus. She states that she called Dr. Lawrence'soffice, and yesterday had a x-ray performed which may have showed a lot of stoolin her colon. She had not been vomiting until tonight where she vomited once, and it was her lunch that she ate 8 hours ago. She denied any blood in her emesis. She states she has been having bowel movements. No prior abdominal surgeries. She is still nauseated. [facility] Medical History Constipation Elevated transaminase level Environmental allergies Epilepsy GERD (gastroesophageal reflux disease) Headaches, cluster Liver lesion Narcolepsy POTS (postural orthostatic tachycardia syndrome) Home Medications methylphenidate HCl 18 mg tablet,extended release 24 hr (Concerta) 18 mg PO DAILY 05/09/21 [History Last Taken 06/09/23] propranolol 20 mg tablet 20 mg PO TID 05/09/21 [History Last Taken 06/09/23] pantoprazole 40 mg tablet,delayed release 40 mg PO DAILY #30 tabs 05/22/23 [Rx Last Taken 06/09/23] loratadine 10 mg tablet (Allerclear) 10 mg PO QHS 06/09/23 [History Last Taken 06/08/23] dicyclomine 20 mg tablet 20 mg PO BID #20 tabs 08/27/23 [Rx Last Taken Unknown] linaclotide 145 mcg capsule (Linzess) 145 mcg PO DAILY #30 caps 08/27/23 [Rx Last Taken Unknown] metoclopramide HCl 5 mg tablet (Reglan) 5 mg PO DAILY PRN nausea and vomiting #10 tabs 08/27/23 [Rx Last Taken Unknown] Allergy/AdvReac Type Severity Reaction Status Date / Time cefdinir Allergy Intermediate Swelling Verified 08/27/23 19:42 gluten Allergy Upset Verified 08/27/23 19:42 Stomach latex Allergy Hives Verified 08/27/23 19:42 midazolam HCl [From Versed] Allergy Other Verified 08/27/23 19:42 Penicillins Allergy Hives Verified 08/27/23 19:42 Family History Father Migraine Daughter Migraine Mother Migraine Other Anxiety Asthma Hypertension Surgical History History of tonsillectomy and adenoidectomy Social History Smoking Status: Never smoker alcohol intake: never substance use type: does not use what type of physical activity do you participate in: walking and weight training frequency: 3-4 times per week duration: 30-45 minutes/day ROS ROS ED ROS Narrative Constitutional: No fever, no chills. HEENT: No sore throat. No neck pain. No loss of vision. No rhinorrhea. Cardiovascular: No chest pain. No palpitations. No pedal edema. Respiratory: No cough, no shortness of breath. Abdominal: Right upper quadrant abdominal pain. Positive nausea and 1 episode of vomiting, nonbloody. Regular bowel movements, no diarrhea. Genitourinary: No dysuria. No hematuria. Musculoskeletal: No myalgias. No arthralgias. Neurologic: No headaches. No dizziness. No lightheadedness. Skin: No rash. No change in color. Psychiatric: No depression. No anxiety. EXAM Physical Exam Narrative Exam Narrative: Afebrile. Vital signs noted. HEENT: Normocephalic. Atraumatic. PERRL, EOMI. Neck soft and supple. No pointtenderness or step off. Cardiovascular: Regular rate and rhythm. No murmurs, rubs, or gallops appreciated. Respiratory: No tachypnea. Lungs clear to auscultation bilaterally. Gastrointestinal: Abdomen soft, mild tenderness palpation right upper quadrant, negative Slaughter sign. With normoactive bowel sounds. No rebound or guarding. Neurological: Awake. Alert. Nonfocal, nonlateralizing. Skin: No rash. Normal color. No pallor. Musculoskeletal: No pedal edema. Full range of motion extremities. Const Vital Signs: 08/27/23 19:44 08/27/23 23:40 Temperature 98.6 F Temperature Source Temporal Pulse Rate 119 H 79 Respiratory Rate 18 Blood Pressure 131/89 H 101/62 Blood Pressure Mean 103 75 Pulse Ox 100 Oxygen Delivery Method Room Air MDM MDM MDM Narrative Medical decision making narrative: Nursing protocol laboratories were entered. The differential diagnosis is gastroparesis versus ileus versus bowel obstruction versus pancreatitis versus cholecystitis. Is not febrile here. I have lower suspicion for bowel obstruction as she has not had prior abdominal surgeries. I reviewed her laboratory work and she has normal white count of 9.0, hemoglobin 13.9 and normal, hematocrit 42.0, platelet count normal at 205. Electrolyte panel does show mild hypokalemia at 3.1. BUN of 9 and creatinine normal at 0.75. LFTs arenormal with an AST of 19 and ALT of 18 and alk phos 46. Serum is negative. Urinalysis is negative for infection with negative nitrites and negative leukocyte esterase. I do not feel antibiotics are indicated. She had continued nausea so she will be administered Zofran 4 mg intravenously. Will start potassium replacement intravenously until CT imaging has returned. I reviewed the CT report, and there is no evidence of an acute obstruction. Shehas constipation. No acute appendicitis. I discussed patient with her phone specialist, Dr. Lawrence, who wishes her to have Reglan and Bentyl. She did refuse Bentyl here. She was given Tylenol instead. She states that she called the nurse who wanted her to do a bowel cleanse and start Linzess. I alsofeel that this is acceptable. I feel she can be discharged after her infusion of potassium. She will follow-up with gastroenterology as an outpatient. Disposition is discharged home in stable condition. History & Record Review Discussion w/independent historian: Patient and Family Lab Data Attestation: I reviewed the patient's lab results. Labs: Laboratory Results - last 24 hr 08/27/23 08/27/23 20:00 21:20 WBC 9.0 RBC 4.82 Hgb 13.9 Hct 42.0 MCV 87.1 MCH 28.8 MCHC 33.1 RDW Std Deviation 37.9 RDW Coeff of Sheryl 11.8 Plt Count 205 MPV 9.6 Immature Gran % (Auto) 0.200 Neut % (Auto) 75.5 H Lymph % (Auto) 18.5 L [place] % (Auto) 5.5 Eos % (Auto) 0.0 Baso % (Auto) 0.3 Absolute Neuts (auto) 6.8 Absolute Lymphs (auto) 1.67 Nucleated RBC % 0 Sodium 141 Potassium 3.1 L Chloride 110 H Carbon Dioxide 28.0 Anion Gap 3 L BUN 9 Creatinine 0.75 Estim Creat Clear Calc 94.63 Est GFR (MDRD) Af Amer 126 Est GFR (MDRD) Non-Af 104 BUN/Creatinine Ratio 12.1 Glucose 123 H Calcium 8.9 Total Bilirubin 0.30 AST 19 ALT 18 Alkaline Phosphatase 46 Total Protein 6.9 Albumin 4.0 Globulin 2.9 Albumin/Globulin Ratio 1.4 Lipase 38 Serum , Qual NEGATIVE Urine Color Yellow Urine Clarity Clear Urine pH 7.0 Ur Specific [place] 1.010 Urine Protein 15 H Urine Glucose (UA) Normal Urine Ketones Negative Urine Occult Blood 250 H Urine Nitrite Negative Urine Bilirubin Negative Urine Urobilinogen Normal Ur Leukocyte Esterase Negative Urine RBC 0-5 SEEN Urine WBC 0 SEEN Ur Squamous Epith Cells 0 SEEN Urine Bacteria 0 SEEN Urine Mucus 0 SEEN Radiography Diagnostic Testing: Clinical Impression(s) from Imaging Studies Abdomen/Pelvis CT 08/27/23 22:10 IMPRESSION: Possible mild constipation. No acute appendicitis or bowel obstruction. Liver lesion within the left liver lobe junction with the caudate lobe measuring 3.8 x 2.8 x 4.0 cm most compatible with liver hemangioma. Remainder of abdominal viscera unremarkable. Electronically Signed: Rosa Kim MD at 22:55 EST , Discharge Plan Triage Chief Complaint: Abd Pain ED Provider: Estiven Mayorga Dx/Rx/DC Orders Clinical Impression: Abdominal pain, Hypokalemia, Constipation Instructions: ED Abdominal Pain Unkn Cause Fem, ED Constipation (Adult), ED Hypokalemia Prescriptions: New dicyclomine 20 mg tablet 20 mg PO BID Qty: 20 0RF metoclopramide HCl [Reglan] 5 mg tablet 5 mg PO DAILY PRN (Reason: nausea and vomiting) Qty: 10 0RF No Action propranolol 20 mg Tablet 20 mg PO TID methylphenidate HCl [Concerta] 18 mg Tablet Extended Release 24hr 18 mg PO DAILY loratadine [Allerclear] 10 mg tablet 10 mg PO QHS pantoprazole 40 mg tablet,delayed release (DR/EC) 40 mg PO DAILY Qty: 30 2RF Linzess 145 mcg capsule 145 mcg PO DAILY Qty: 30 0RF Primary Care Provider: Catina Alford Referrals: Catina Alford DO [Primary Care Provider] - Friend,DO Tim [Med Staff - Active Staff] - As soon as possible Disposition Disposition: Home, Self Care What to do if you have Problems For any increased pain, shortness of breath, bleeding, nausea or vomiting, chestpain, or any unexpected problems, contact your Primary Care Provider. Call [facility] ([phone]) or report to the closest Emergency Room. Call 911 if necessary. 08/28/236 <Electronically signed by Estiven Mayorga MD> Cosigner Signature (if applicable): CC: Catina Alford DO ~ Signed [facility] Work Phone: 1(536) 486-413411-19-2023 History of Present illness Narrative* Clifford Valenzuela DPM - 05/25/2023 9:27 AM EST CC: follow up s/p correction of hammer toes 2,3,4, right foot and 1 month follow up of bilateral partial hallux nail avulsions Mikayla Blunt is a 22 year old female who presents for 1 month follow up of bilateral partial nailavulsions as well as follow up s/p hammertoe [...] Resp. rate 20, height 157.5 cm (5' 2), weight 52.2 kg (115 lb), last menstrual period 11/08/2022. Mikayla is a pleasant, cooperative, well developed 22 year old adult female. The patient is alert andoriented to time, place and person. She has [...] Clifford Valenzuela DPM, FACFAS documented in this encounterMartin [facility] Hospital10-25-2023 Instructions* Patient Instructions* Cami Pan DPM - 04/30/2023 11:17 AM EDT Epsom salt soaks. Band aid and documented in this encounterMartin [facility] Hospital10-25-2023 History of Present illness Narrative* Clifford Valenzuela DPM - 04/30/2023 11:16 AM EDT Associated Order(s): Nail Removal; Nail Removal Post-Procedure Diagnose(s): Ingrown toenail of both feet CC: Bilateral ingrown toe nails with final follow up s/p correction of hammer toes 2,3,4, right foot Mikayla Blunt is a 22 year old female who [...] toes are doing great without any issue. De nies any nausea, vomiting, fever, chills, shortness of [...] Resp. rate 18, height 157.5 cm (5' 2), weight 52.2 kg (115 lb), last menstrual period 11/08/2022. Mikayla is a pleasant, cooperative, well developed 22 year old adult female. The patient is alert andoriented to time, place and person. She has [...] to follow up in 1 month. Cami Pan DPM PGY-3 NAIL REMOVAL Nail Removal Date/Time: 04/30/2023 11:57 AM Performed by: Clifford Valenzuela DPM Authorized by: Clifford Valenzuela DPM Informed Consent Consent Obtained: Verbal [place] Protocol SIGN IN Personnel directly involved with [...] Valenzuela DPM Informed Consent Consent Obtained: Verbal [place] Protocol SIGN IN Personnel directly involved with [...] otherwise noted. Clifford Valenzuela DPM, FACFAS * Janina Adams LPN - 04/30/2023 10:23 AM EDT Prepared two 3 cc syringes each containing 2.5 cc Lidocaine and 2.5 cc Bupivacaine with 25 gauge needles and gave to MD for injection of bilateral feet - Janina Adams LPN * Kenzie Schaefer MA - 04/30/2023 9:58 AM EDT REVIEW OF SYSTEMS: GENERAL: Well developed, well nourished. No acute distress PAIN: Pain 09/13 CARDIOVASCULAR: Negative for chest pain, leg swelling and palpations. MSK: Negative for joint swelling SKIN: Negative for lesions, rash, itching, metal sensitivity NEURO: Epilepsy ENDOCRINE: Negative for diabetic associated symptoms HEMATOLOGY: Negative for excessive bleeding, clots, bleeding disorders. Kenzie Schaefer MA documented in this encounterMartin Memorial Hospital08-23-2023 Miscellaneous Notes* Telephone Encounter - Mouna Vasques RN - 02/26/2023 3:27 PM EDT Last OV: 12/03/2022 Last Refill: 08/22/2022 F/U OV: N/A Appropriate for refill. You did take this over in June 2020. Not sure why Dr. Nair ordered forher in Aug 2022. She did message in and request this. Routed to [place] for review. AZUL Rudd, RN, BA documented in this encounterMartin Memorial Hospital07-17-2023 Miscellaneous Notes* Telephone Encounter - Lisy Fleming RN - 01/20/2023 11:17 AM EDT Notified pt of message below, she verbalized understanding and denies any questions at this time. * Telephone Encounter - Mouna Hernández MD - 01/20/2023 9:10 AM EDT Refill was re-sent to [facility] Mouna Simmons MD * Telephone Encounter - Lisy Fleming RN - 01/18/2023 12:06 PM EDT Reason for Disposition Prescription refill request for a controlled substance (such as most ADHD meds or narcotics) Answer Assessment - Initial Assessment Questions Pt calling to request that her Concerta please be canceled at [facility] and resent to [facility] pharmacy in [place] instead. He medication is currently out of stock at [facility]. Protocols used: Medication Question [id number] Pt is currently due for refill of her Concerta. The script had been electronically sent to [facility] pharmacy but they do not have the medication in stock[facility] in [place]. Pharmacy preference updated. Routed to provider for renee trujillo. Please advise. documented in this encounterMartin Memorial Hospital07-15-2023 History of Present illness Narrative* Clifford Valenzuela DPM - 01/18/2023 7:15 PM EDT DOS: 10/25/22 POD: 82 POV: 3 Procedure: Correction of hammertoes 2-5 right foot This 22 year old female presents for a post op visit. Patient states they are doing well. Pain is well controlled. Has been icing and elevating the extremity as instructed preoperatively and has beenweightbearing as tolerated in tennis shoes to the right lower extremity. Denies any current nausea,vomiting, fever, chills, shortness of breath, chest pain or calf pain. States that she believes hergreat toenails may be ingrowing again. Hx of [...] Dressing is dry, clean, and intact with normalstrike through noted. Problem focus examination to the [...] weightbearing with appropriate clinical alignment maintained. No painto palpation of digits. 01/15/23: right foot radiographs [...] Clifford Valenzuela DPM, FACFAS documented in this encounterMartin Memorial Hospital06-14-2023 Miscellaneous Notes* Telephone Encounter - Eveline Main - 12/18/2022 6:56 PM EDT Please review and assist. documented in this encounterMartin Memorial Hospital06-12-2023 History of Present illness Narrative* Areli Michael RT(R) - 12/16/2022 3:00 PM EDT Radiology Service Progress Note PATIENT NAME: Mikayla Blunt DATE OF SERVICE: December 16, 2022 TIME: 4:34 PM PATIENT IDENTITY VERIFICATION COMPLETED USING TWO (2) IDENTIFIERS: Name and Date of confirmedby patient verbally. FALL SCREENING: Has the patient [...] 16, 2022 4:34 PM documented in this encounterMartin Memorial Hospital06-07-2023 History of Present illness Narrative* Vanna Elena MD - 12/11/2022 8:15 AM EDT [facility] Department of Dermatology VIRTUAL VISIT PROGRESS NOTE This is a virtual visit. It required patient-provider interaction for the medical decision making as documented below. This visit was completed via [employer]. Discussed with patient limitations of virtual software with assessment of skin disease/lesions. Pt acknowledged and consentedto visit. Chief Complaint: rash [facility] new patient History of Present Illness: Mikayla Blunt is a 22 year old female Patient [...] Skin exam normal with the exception of: [place] skin colored papules around nose and [...] condition or if any new/changing/symptomatic lesions arise. [employer] Teacher Attestation: The documentation for this note was completed by Lou Chowdary Ma acting as scribe for Vanna Elena MD. December 10, 2022 4:46 PM. I have communicated my name and active licensure. The patient's identity and physical location wereverified at the time of this visit. Either the patient or their legal scheduling representative has been informed of the risks and benefits of -- and alternatives to -- treatment through a remote evaluation andconsents to proceed with the evaluation remotely. I agree with the Chief Complaint, ROS, and Past Histories independently gathered by the clinical instructional support technician and the remaining scribed note accurately describes my personal service to the patient. Vanna Elena MD documented in this encounterMartin Memorial Hospital05-31-2023 History of Present illness Narrative* Clifford Valenzuela DPM - 12/04/2022 9:00 AM EDT DOS: 10/25/22 POD: 40 POV: 2 Procedure: Correction of hammertoes 2-5 right foot This 22 year old female presents for a post op visit. Patient states they are doing well. Pain is well controlled by ibuprofen. Has been icing and elevating the extremity as instructed preoperativelyand has been partial weightbearing to the right lower extremity. Denies any current nausea, vomiting, fever, chills, shortness of breath, chest pain or calf pain. Patient reports she had complications since having anesthesia. She reports having post anesthesia ileus and gastritis. She reports beinghospitalized and was discharged yesterday. She also reports elevated liver enzymes that was thoughtto be caused by Tylenol use. Denies any [...] area once daily for 14 days. TO AFFECTEDAREA. ketoconazole (NIZORAL) 2 % cream Apply to [...] Dressing is dry, clean, and intact with normalstrike through noted. Problem focus examination to the [...] weightbearing with appropriate clinical alignment maintained. No painto palpation of digits. 12/04/22: right foot radiographs (three views: AP/MO/lateral; weight-bearing) were performed and examined today. Personal radiographic evaluation: Status post claw toe correction of digits 2,3,4. Stable post-operative appearance. Hardware in normal position without evidence of failure or loosening.Position maintained. No acute destructive changes. No gas [...] Clifford Valenzuela DPM, FACFAS documented in this encounterMartin Memorial Hospital05-25-2023 History of Present illness Narrative* Nohemy Polk MD - 11/28/2022 7:56 AM EDT Chief complaint - rash above the lip (Since October 25, using mupirocin x 2 wks ago and it's not helping) SUBJECTIVE: Mikayla Blunt 22 year old FEMALE for evaluation of [...] 2 % TOPICAL CREAM recheck 2 weeks Nohemy Polk MD documented in this encounterMartin Memorial Hospital05-01-2023 NoteHNO ID: [id number] Author: Mary Muhammad MD Service: Hospital Medicine Author Type: Physician Type: Progress Notes Filed: 11/04/2022 2:28 PM Note Text: DEPARTMENT OF HOSPITAL MEDICINE PROGRESS NOTE SERVICE DATE: 11/04/2022 SERVICE TIME: 2:25 PM Hospital Medicine/Primary Attending: Mary Muhammad MD NIGHT AND WEEKEND COVERAGE: HESSEL COVERAGE: Days: [phone], please page attending physician. Nights: [phone], please page [facility] Night coverage pager [phone]. Subjective INTERVAL HPI: Patient was seen and [...] -- -- 1.0 HGBB -- -- 15.3 [id number] -- -- RA=Room Air < > = [...] DTYPE -- Auto Auto Recent Labs 11/04/22 04311/03/22 1008 11/02/22 0435 11/01/2241310/31/22 1849 10/31/22125810/30/222053 NA 143 140 -- 141 -- < [...] No results for in (more content not included)...[facility] CenterJwmzqkpm[facility]-9807 Note HNO ID: [id number] Author: Mary Muhammad MD Service: Hospital Medicine Author Type: Physician Type: Progress Notes Filed: 11/03/2022 3:16 PM Note Text: DEPARTMENT OF HOSPITAL MEDICINE PROGRESS NOTE SERVICE DATE: 11/03/2022 SERVICE TIME: 3:12 PM Hospital Medicine/Primary Attending: Mary Muhammad MD NIGHT AND WEEKEND COVERAGE: HESSEL COVERAGE: Days: [phone], please page attending physician. Nights: [phone], please page [facility] Night coverage pager [phone]. Subjective INTERVAL HPI: Patient was seen and [...] LABS Recent Labs 11/03/22 1008 10/31/22 1259 10/30/222053 VPC2 -- -- 46 VPO2C -- -- <31* VBE -- -- 0 BICARB -- -- 26 CO2 25 < > 25 OXHGBVEN -- -- 30* CARBOXVENO -- -- <1.0 METHB -- -- 1.0 LACT -- -- 1.0 HGBB -- -- 15.3 [id number] -- -- RA=Room Air < > = [...] 0435 11/01/22 0414 10/31/22 1849 10/31/22 1259 10/30/224 NA 140 -- 141 -- 141 139 [...] in the last 720 hours. Recent Labs 10/30/222130 COLOR Yellow CLARITY Clear UPH 6.5 SPGR [...] UCOC2, UAMPH, UTHC, UOP (more content not included)...[facility] [id number] History of Past illness Narrative* Problem Noted [...] of this encounter (statuses as of 11/09/2022) [facility] of Past illness Narrative* [...] of this encounter (statuses as of 11/18/2022) [facility] of Past illness Narrative* [...] of this encounter (statuses as of 12/04/2022) [facility] of Past illness Narrative* [...] of this encounter (statuses as of 12/05/2022) [facility] of Past illness Narrative* [...] of this encounter (statuses as of 12/09/2022) [facility] of Past illness Narrative* [...] of this encounter (statuses as of 12/11/2022) [facility] of Past illness Narrative* [...] of this encounter (statuses as of 12/19/2022) [facility] of Past illness Narrative* [...] of this encounter (statuses as of 01/18/2023) [facility] of Past illness Narrative* [...] of this encounter (statuses as of 01/20/2023) [facility] of Past illness Narrative* [...] of this encounter (statuses as of 02/05/2023) [facility] of Past illness Narrative* [...] of this encounter (statuses as of 02/27/2023) [facility] of Past illness Narrative* [...] of this encounter (statuses as of 02/27/2023) [facility] Past illness Narrative* [...] of this encounter (statuses as of 05/11/2023) [facility] illness Narrative* [...] of this encounter (statuses as of 05/20/2023) [facility] Narrative* [...] of this encounter (statuses as of 06/11/2023) [facility] Narrative* [...] of this encounter (statuses as of 06/26/2023) [facility] Narrative* [...] as of this encounter (statuses as of 09/26/2023) [facility] illness Narrative* [...] as of this encounter (statuses as of 09/29/2023) [facility] of Past illness Narrative* [...] as of this encounter (statuses as of 10/14/2023) [facility] NoteHNO ID: [id number] Author: Mary Muhammad MD Service: Hospital Medicine Author Type: Physician Type: Progress Notes Filed: 11/02/2022 5:08 PM Note Text: DEPARTMENT OF HOSPITAL MEDICINE PROGRESS NOTE SERVICE DATE: 11/02/2022 SERVICE TIME: 5:03 PM Hospital Medicine/Primary Attending: Mary Muhammad MD NIGHT AND WEEKEND COVERAGE: HESSEL COVERAGE: Days: [phone], please page attending physician. Nights: [phone], please page [facility] Night coverage pager [phone]. Subjective INTERVAL HPI: Patient was seen and [...] -- -- 1.0 HGBB -- -- 15.3 [id number] -- -- RA=Room Air < > = [...] 10/31/22 1849 10/31/22 1259 10/30/22 2054 NA -- 141 -- 141 139 K [...] in the last 720 hours. Recent Labs 10/30/222130 COLOR Yellow CLARITY Clear UPH 6.5 SPGR [...] CSFPROT, CSFGLUC, CSFSR, CSFSTF (more content not included)...[facility] [id number] NoteHNO ID: [id number] Author: Dustin Gee MD Service: Hospital Medicine Author Type: Physician Type: Progress Notes Filed: 11/01/2022 9:35 AM Note Text: DEPARTMENT OF HOSPITAL MEDICINE PROGRESS NOTE Date: 11/01/22 History: Still constipated but having gas come out. Still nauseated. Exam: BP 111/67 Pulse 94 Temp 36.9 ?C (98.4 ?F) (Oral) Resp 18 Ht 157.5 cm (5' 2) Wt 54.4 kg (120 lb) LMP 10/06/2022 (Exact Date) SpO2 100% BMI 21.95 kg/m? Physical Exam Cardiovascular: Rate and Rhythm: Normal rate and regular rhythm. Pulmonary: Effort: Pulmonary effort is normal. Breath sounds: Normal breath sounds. Abdominal: General: Bowel sounds are normal. There is no distension. DATA: ASSESSMENT: Ms. Blunt, your 22 years have been affected by [...] Leg blood clot prevention: low risk SIGNATURE: Dustin Gee, [id number] History of Past illness Narrative* Problem Noted Date Resolved Date RUQ pain 10/31/2022 11/02/2022 Elevated transaminase level 10/31/2022 04/2 03/2023 MT (mallet toe), right 10/25/2022 Mallet toe, [...] of this encounter (statuses as of 11/05/2022) [facility]04-21[facility]23 History of Past illness Narrative* [...] of this encounter (statuses as of 10/26/2022) [facility]04-21-2023 Miscellaneous Notes* Allied Health - RT Bhupendra(R) - 10/25/2022 9:52 AM EDT Radiology Service Progress Note PATIENT NAME: Mikayla Blunt DATE OF SERVICE: October 25, 2022 TIME: 9:52 AM PATIENT IDENTITY VERIFICATION COMPLETED USING TWO (2) IDENTIFIERS: Name and Date of confirmedby identification band. FALL SCREENING: Has the patient had 2 falls in the last year or 1 fall with injury or currently using an Ambulatory Assistive Device (Walker, Cane, Wheelchair, Crutches, etc.)? [facility] [place] [facility] GENDER DATA: Female. status: : No status: NO. PATIENT RELEVANT IMPLANT DATA REVIEWED: Not Applicable RADIOLOGY DEPARTMENT: General X-ray: Exam(s) Completed: Lower Extremity X- Ray(s): Foot, Right PERIPHERAL IV DATA: Not applicable SIGNED BY: RT Bhupendra(R) October 25, 2022 9:52 AM documented in this encounterMartin Memorial Hospital04-21-2023 Nurse Note* Peyton Pederson RN - 10/25/2022 9:44 AM EDT Xrays done right foot. documented in this encounterMartin Memorial Hospital04-21-2023 History and physical note * Clifford Valenzuela DPM - 10/25/2022 9:03 AM EDT UPDATED HISTORY AND PHYSICAL EXAMINATION SERVICE DATE: 10/25/2022 SERVICE TIME: 09 PHYSICAL EXAM MUST BE COMPLETED ON ADMISSION [...] 10/15/2022. SIGNATURE: Clifford Valenzuela DPM PATIENT NAME: Mikayla Blunt DATE: October 25, 2022 TIME: 9:03 AM Source Note - Sahara Barrett APRN.NEERU - 10/18/2022 9:20 AM EDT HISTORY AND PHYSICAL EXAMINATION SERVICE DATE: 10/15/2022 SERVICE TIME: 10:30 AM PRIMARY CARE PHYSICIAN: Eileen Nair DO REASON FOR VISIT: Mikayla Blunt is a 22 year old female who [...] or any previous visit (from the past 31310 hour(s)). Assessment Patient has the following medical [...] well with Propofol. Had surgery 05/2022 at [facility] and had no significant anesthesia events. [...] - ANESTHESIA PLAN Anesthetic Plan: general Beta Alvino Monitoring Plan Post Procedure Analgesic Plan Prepared [...] which included preparing to see the patient, [id number]-fvds patient care, completing clinical documentation, obtaining and/or reviewing separately obtained history, performing a medically appropriate examination, and counseling and educating the patient/family/caregiver. Instructions Given to Patient: Instructions located in the after visit summary. Patient given verbal and written preop instructions and voices comprehension and compliance. SIGNATURE: Sahara Barrett APRN.CNP PATIENT NAME: Mikayla Blunt DATE: October 15, 2022 TIME: 1:39 PM PAGER/CONTACT #: documented in this encounterMartin Memorial Hospital04-14-2023 History and physical note * Sahara Barrett APRN.CNP - 10/18/2022 9:20 AM EDT HISTORY AND PHYSICAL EXAMINATION SERVICE DATE: 10/15/2022 SERVICE TIME: 10:30 AM PRIMARY CARE PHYSICIAN: Eileen Nair DO REASON FOR VISIT: Mikayla Blunt is a 22 year old female who [...] No Prior to Admission medications as of 10/18/2228 Medication Sig Last Dose Taking methylphenidate ER [...] or any previous visit (from the past 59032 hour(s)). Assessment Patient has the following medical [...] well with Propofol. Had surgery 05/2022 at [facility] and had no significant anesthesia events. [...] - ANESTHESIA PLAN Anesthetic Plan: general Beta Alvino Monitoring Plan Post Procedure Analgesic Plan Prepared [...] which included preparing to see the patient, euzx-fu-izxo patient care, completing clinical documentation, obtaining and/or reviewing separately obtained history, performing a medically appropriate examination, and counseling and educating the patient/family/caregiver. Instructions Given to Patient: Instructions located in the after visit summary. Patient given verbal and written preop instructions and voices comprehension and compliance. SIGNATURE: Sahara Barrett APRN.CNP PATIENT NAME: Mikayla Blunt DATE: October 15, 2022 TIME: 1:39 PM PAGER/CONTACT #: documented in this encounterMartin Memorial Hospital04-11-2023 Instructions* Patient Instructions* Sahara Barrett APRN.CORRECTIONAL PROBATION OFFICER - 10/15/2022 1:47 PM EDT PATIENT PREOPERATIVE INSTRUCTIONS Your surgeon has scheduled for your procedure at this surgery center: [facility]: [phone], [address] [id number] Please enter through the main entrance and [...] Friday, call the Friday before. Your surgeon's senior power scheduler will tell you what time to call [...] or the morning of surgery. Use the [employer] body wash supplied to you along with [...] surgery. - YOU MUST HAVE A RESPONSIBLE ANALYSIS INTERNSHIP TAKE YOU HOME. A AUTOMATIC HEMMER, CAB OR UBER ANALYSIS INTERNSHIP CANNOT BE MADEA RESPONSIBLE ANALYSIS INTERNSHIP. - You cannot stay in a hotel [...] you may. Orthopedic patients having surgery [facility] listed as outpatient should bring their walker into the building. Orthopedic patients having surgery [facility] listed as to be admitted should leave their walkers in the car or with a family member. Sahara Barrett APRN.CNP 10/15/22 documented in this encounterMartin Memorial Hospital04-10-2023 Miscellaneous Notes* Telephone Encounter - Eveline Main - 10/14/2022 11:20 AM EDT Last appointment: 03/25/22 Next appointment: N/A Pharmacy verified in [facility]. Refill(s) requested: Requested Prescriptions Pending Prescriptions Disp Refills methylphenidate ER 18 mg tablet 30 tablet 0 Sig: Take 1 tablet by mouth every morning for 30 days. Order(s) pended. Please advise. Eveline Main CMA documented in this encounterMartin Memorial Hospital03-01-2023 History of Present illness Narrative* Clifford Valenzuela DPM - 09/04/2022 8:29 AM EST Chief Complaint: [...] in October2022. Denies consitutional symptoms. PCP: Eileen Nair, DO: PAST MEDICAL HISTORY Diagnosis Date Acquired [...] mood. Resp 20 Ht 157.5 cm (5' 2) Wt 55.3 kg (122 lb) LMP 05/09/2022 [...] Clifford Valenzuela DPM, FACFAS documented in this encounterMartin Memorial Hospital02-16-2023 Miscellaneous Notes* Telephone Encounter - Eileen Nair DO - 08/22/2022 11:20 AM EST Mom aware that prescription was sent in' Eileen Nair DO * Telephone Encounter - Kelly Pressley LPN - 08/22/2022 10:00 AM EST The pharmacy pt uses does not have the Concerta on hand and pt has been out of medication x 2 days.Pt found it at [facility] and wonders if Rx's can be sent there. Pt would like called when Rx's are sent in. New Rx's pended for review. Pharmacy info was updated. documented in this encounterMartin Memorial Hospital02-03-2023 History of Present illness Narrative* Janina Adams LPN - 08/09/2022 3:07 PM EST Prepared two 10cc syringes with 3cc bupivacaine 3cc lidocaine with 25 gauge needles and gave to MD for injection - Janina Adams LPN * [...] or drainage. Denies consitutional symptoms. PCP: Eileen Nair, DO: PAST MEDICAL HISTORY Diagnosis Date Acquired [...] mood. Resp 18 Ht 157.5 cm (5' 2) Wt 54.4 kg (120 lb) LMP 05/09/2022 [...] Valenzuela DPM Informed Consent Consent Obtained: Verbal [place] Protocol SIGN IN TIME OUT Nail removal [...] Clifford Valenzuela DPM, FACFAS documented in this encounterMartin Memorial Hospital01-12-2023 History of Present illness Narrative* Clifford Valenzuela DPM - 07/18/2022 9:20 AM EST DOS: 05/29/2022 [...] Clifford Valenzuela DPM, FACFAS documented in this encounterMartin Memorial Hospital12-16-2022 Miscellaneous Notes* Telephone Encounter - Jesenia Mann RN - 06/21/2022 9:14 AM EST Patient left message on RN line today at 8:30 wanting to talk about an unspecified medication refill. Patient requested call back to [phone]. Called patient. She had an insurance change in the last couple of months, new insurance does not cover 90 day Rxs at the pharmacy so when she filled her Concerta on May 21, she was only given 30. Dr. Nair issued new Rxs but not to start until July 09, and she only has two left from the May refill (did not take it for a couple days when she had surgery). Patient would like a phone call when resolved. She is asking for Rx now or she will be out of medication for two weeks. documented in this encounterMartin Memorial Hospital12-05-2022 Miscellaneous Notes* Telephone Encounter - Anselmo Posadas - 06/10/2022 12:20 PM EST Patient needs a new rx for Concerta - 30 days, insurance won't cover a 90 day. * Telephone Encounter - Keisha Rojas - 06/10/2022 11:19 AM EST [facility] pharmacy in [place] called today on 06/10/22 regards to patients medication Concerta. Pharmacy stated that Dr. Nair prescribed patient with a 90 day supply and patients insurance only covers a 30 day supply. Pharmacy filled a 30 day supply of Concerta instead of 90 day supply. Void of 60 day supply. Pharmacy stated patient needs a new prescription. Please advise. documented in this encounterMartin Memorial Hospital11-30-2022 History of Present illness Narrative* Clifford Valnezuela DPM - 06/05/2022 9:53 AM EST DOS: 05/29/2022 [...] Clifford Valenzuela DPM, FACFAS documented in this encounterMartin Memorial Hospital11-23-2022 History of Past illness Narrative* [...] of this encounter (statuses as of 06/10/2022) [facility] History of Past illness Narrative* [...] of this encounter (statuses as of 06/12/2022) [facility] History of Past illness Narrative* [...] s 10/13/2014 08/15/2018 Acromioclavicular (joint) (ligament) sprain 11/2 10/2013 08/31/2020 Stress reaction 11/18/2013 08/31/2020 Stress reaction [...] of this encounter (statuses as of 06/17/2022) [facility] History of Past illness Narrative* [...] of this encounter (statuses as of 06/20/2022) [facility] History of Past illness Narrative* [...] of this encounter (statuses as of 06/21/2022) [facility] History of Past illness Narrative* [...] 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 Recurrent acute tonsillitis 12/22/2009/0 03/2017 Epileptic grand mal status 01/18/200910/13 PSYMOTR EPIL W/O INT EPI 09/27/2008 015 Abnormality of gait 04/01/2008 07/15/2016 documented as of this encounter (statuses as of 07/31/2022) [facility] of Past illness Narrative* [...] of this encounter (statuses as of 08/13/2022) [facility] History of Past illness Narrative* [...] of this encounter (statuses as of 08/22/2022) [facility] History of Past illness Narrative* [...] 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 Recurrent acute tonsillitis 12/22/2009/0 03/2017 Epileptic grand mal status 01/18/200910/13 PSYMOTR EPIL W/O INT EPI 09/27/2008 015 Abnormality of gait 04/01/2008 07/15/2016 documented as of this encounter (statuses as of 09/03/2022) [facility] of Past illness Narrative* [...] of this encounter (statuses as of 09/17/2022) [facility] of Past illness Narrative* [...] of this encounter (statuses as of 10/14/2022) [facility] of Past illness Narrative* [...] of this encounter (statuses as of 10/18/2022) [facility] History of Present illness Narrative* Eileen Nair DO - 04/05/2022 12:17 PM EDT Form faxed to office Eileen Nair DO documented in this encounterMartin Memorial Hospital08-16-2022 Miscellaneous Notes* Telephone Encounter - Amy Sanders APRN.CNP - 02/19/2022 2:45 PM EDT Prescription had been filled, just needs med check in next month or so. Spoke with patient and clarified. Amy Sanders APRN.CNP * Telephone Encounter - Luz Celeste RN - 02/19/2022 2:28 PM EDT [...] be seen again for refills, please advise. Luz Celeste RN * Telephone Encounter - Amy Sanders APRN.CNP - 02/19/2022 12:22 PM EDT Patient needs follow up for med check. PDMP website checked and validated. All prescriptions have been APPROPRIATELY filled. No suspiciousactivity was identified. 02/19/2022 by Amy Sanders APRN.CNP documented in this encounterMartin Memorial Hospital08-08-2022 Instructions* Patient Instructions* Zari Hager APRN.CORRECTIONAL PROBATION OFFICER - 02/11/2022 11:04 AM EDT POTS Conservative [...] tips for improved daily living with POTS. http://www.[facility].org/pots Orthostatic Workout There are videos /playlist/podcast to viewed and helped for exercises and wellness for POTS and Orthostatics Instructions:https://www.Goodfilms.com/channel/EC7RWaDTo6OIPEORjExvFfYX In your search bar in the internet [...] Also follow us along on our new [employer] account POTSTREVOR Also besides the exercise are some ricarda mediation videos . Click and watch. Utilize when your adrenaline is active. May even play music to go along. Play the video as often you want to help as an additional tool to reset the adrenaline https://www.youeVestmentube.com/watch?v=nLRn8nUtUP6 https://www.youeVestmentube.com/watch?v=d2dHmsM-0oS&feature=youtu.be https://www.youeVestmentube.com/watch?v=B8mB6xTlE19 Shared Medical Appointments To schedule the [facility] POTS SMA please call during Friday-Friday 9 am - 4 pm , THE CALL CENTER # [phone] The CALL CENTER IS OPEN 24 hours/ 7 DAYS PER WEEK Please be patient with the phone line. We are honored and glad to have you part of the SMA for POTS Welcome to [facility] POTS SMA (SHARED MEDICAL APPOINTMENTS) We have learned at the [facility] and especially in my work [...] help you for wellness and better heal Kyle, Dr. Murray and the Autonomic Team The nursing staff and medical assistants are a major part of YOUR TREATMENT TEAM and will be handling your phone calls, Lolayhart messages and inquiries, if any. Unless explicitly [...] do not comment on most testing on OpenPeakhart in a message or commentary unless there [...] you with this process. documented in this encounterMartin Memorial Hospital08-08-2022 History of Present illness Narrative* Zari Hager APRN.CNP - 02/11/2022 10:52 AM EDT Images from the original note were not included. [facility] Neurology Follow Up Mikayla Blunt is a 21 year old female. Patient [...] REMOVE TONSIL AND ADENOI UNDER AGE 12 08-10 Social History Tobacco Use Smoking status: Never [...] Extension 5/5 5/5 Movement/Coordination Finger-to- nose-finger and bqhp-su-phyp intact bilaterally. No evidence of ataxia arms. [...] which included preparing to see the patient, mtel-ed-orln patient care, completing clinical documentation, obtaining and/or [...] for this visit on 02/11/22. Zari Hager APRN.[facility] General Neurology [address] [place] [address]. [id number] Appointment: [phone] 1. This office note has been dictated [...] of your PCP/referring physician documented in this encounterMartin Memorial Hospital05-23-2022 Instructions* Patient Instructions* Yahaira Arredondo APRN.NEERU - 11/26/2021 8:58 AM EDT Rest, increase [...] in 24 -48 hours, results available on [employer] Home isolation until covid results are back [...] to thin out mucus documented in this encounterMartin Memorial Hospital05-23-2022 History of Present illness Narrative* Yahaira Arredondo APRN.NEERU - 11/26/2021 8:52 AM EDT Subjective The history is provided by the patient. No bilingual speech language pathologist was used. HPI Mikayla Blunt is a 21 year old female who presents today for CC of cough, congestion and fever, fatigue, body aches, headache. She has used tylenol with short term relief. 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 Wheezing [...] Level: 4 - Moderate documented in this encounterMartin Memorial Hospital05-17-2022 Miscellaneous Notes* Telephone Encounter - [...] she is doing well. Bertha Edge APRN.CNP * Telephone Encounter - Marilyn Acevedo - 11/20/2021 1:15 PM EDT Mikayla returned call. She stated she did see Dr. Nair last summer in March but she is willing to make an appointment if need be. She saw the provider in [place] in September for a physical to be seensooner than later. Please advise on an appointment if necessary. Thank you Marilyn Acevedo * Telephone Encounter - Luz Celeste RN - 11/20/2021 12:48 PM EDT Called patient regarding message below, no answer. Left message to call office back. Luz Celeste RN * Telephone Encounter - Bertha Edge APRN.CNP - 11/20/2021 12:39 PM EDT [facility] checked and validated. All prescriptions have been APPROPRIATELY filled. No suspiciousactivity was identified. 11/20/2021 by Bertha Edge APRN.CNP Patient's request for medication is as follows Signed Prescriptions Disp Refills methylphenidate ER 18 mg tablet 90 tablet 0 Sig: Take 1 tablet by mouth every morning for 90 days. SAMEER Class: C-II DARVIN: No Authorizing Provider: BERTHA EDGE Please confirm PCP -- patient has not been seen by Dr. Nair in [facility] since 03/2020. Fito Fish has been seen in [place] lately. Betrha Edge APRN.CORRECTIONAL PROBATION OFFICER * Telephone Encounter - Megan Hodges MA - 11/20/2021 11:49 AM EDT Pharmacy verified in [facility] Patient has been identified by name and [...] advise. Megan Hodges MA documented in this encounterMartin Memorial Hospital05-17-2022 History of Present illness Narrative* Lisa Pacheco RN - 11/20/2021 10:51 AM EDT Asthma Home Monitoring Program Breathe Well Outreach Provider Action/FYI: Approval received from Dr Oracio Bertrand to draft AAP per below FYI Reason for outreach: Follow up and Asthma Action Plan, Health Maintenance, due for Pulm F/up Contact made: Yes, via [employer] VM left. SIGNATURE: Lisa Pacheco RN PATIENT NAME: Mikayla Blunt DATE: November 20, 2021 TIME: 10:51 AM * Lisa Pacheco RN - 11/09/2021 3:11 PM EDT Asthma Home Monitoring Program Breathe Well Outreach Provider Action/FYI: Hi Dr Bertrand, Pt is over due for f/up in your office. RN called and left message encouraging arranging f/up visitwith your office and will send EventTool message. From a health maintenance perspective patient [...] day SIGNATURE: Lisa Pacheco RN PATIENT NAME: Mikayla Blunt DATE: November 09, 2021 TIME: 3:11 PM documented in this encounterMartin Memorial Hospital05-02-2022 Miscellaneous Notes* Telephone Encounter - Mouna Odom RN - 11/05/2021 11:00 AM EDT Last OV: 12/18/2020 Last Refill: 08/29/2021 F/U OV: N/A Appropriate for refill. Routed to [place] for review. Mouna Odom RN, BSN, BA documented in this encounterMartin Memorial Hospital04-14-2022 Miscellaneous Notes* Telephone Encounter - Jeana Aranda DO - 10/18/2021 3:23 PM EDT orthotics ordered. please assist. hs documented in this encounterMartin Memorial Hospital04-05-2022 History of Present illness Narrative* [...] they [facility] well as everything found online. No other issues/complaints at this time. 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 PCP: Eileen Nair, DO: PAST MEDICAL HISTORY Diagnosis Date Epilepsy [...] REMOVE TONSIL AND ADENOI UNDER AGE 12 08-10 FAMILY HISTORY Problem Relation Age of Onset [...] habitus. Resp 17 Ht 154.9 cm (5' 1) Wt 53.5 kg (118 lb) LMP 09/14/2021 (Approximate) BMI 22.30 kg/m Vascular: DP and PT pulses are palpable. CFT less than 3 seconds to all digits bilateral. Skin temperature is warm to warm from proximal to distal bilateral. Hair growth is noted. No edema noted. No varicosities noted. Neuro: Light touch intact bilateral. Protective sensation intact at all pedal sites via [place] 5.07 monofilament bilateral. Proprioception intact at [...] bleeding, clots, bleeding disorders. documented in this encounterMartin Memorial Hospital03-28-2022 Instructions* Patient Instructions* Doris Juarez APRN.CORRECTIONAL PROBATION OFFICER - 10/01/2021 10:03 AM EDT Images from [...] drinks Go! Be healthy, inside and out! www.[facility].org/5toGo Adolescent to Adult Transition Program [facility] cares about helping you and each of our adolescents and young adults make a smoothtransition to adult care. If your current doctor is a price accuracy supervisor, we will work with you to decide [...] your current doctor is in family medicine, [facility] will prepare you and your [...] details. If joining our practice from outside [facility], we will help you request [...] the use of evidence-driven strategies for health client care specialist, youth, young adults, and their families. www.gottransition.org https://gottransition.org/resource/?hif-kzwvue-akpopfa documented in this encounterMartin Memorial Hospital03-28-2022 History of Present illness Narrative* Doris Juarez APRN.CNP - 10/01/2021 9:25 AM EDT WELL VISIT PEDIATRIC FEMALE 18+ YRS OLD SERVICE DATE: 10/01/2021 Mikayla is a 21 year old female who [...] REMOVE TONSIL AND ADENOI UNDER AGE 12 08-10 ALLERGIES Allergen Reactions Penicillins Rash Versed [Midazolam [...] satisfactory Screening tools reviewed and discussed with patient/keqqdu-UPZ-8 and Social Determinants of Health.Please see Patient [...] Artery) Resp 16 Ht 157 cm (5' 1.81) Wt53.8 kg (118 lb 8 oz) LMP [...] Readings: Date: Ht: 03/29/2021 156.2 cm (5' 1.5) (14 %, Z= -1.08)* 03/29/2021 156.2 cm (5' 1.5) (14 %, Z= -1.08)* 09/13/2020 157.5 cm (5' 2) (19 %, Z= -0.87)* 08/31/2020 154.9 cm (5' 1) (10 %, Z= -1.26)* General: Well developed, [...] for respiratory tuberculosis Z11.1 PPD (TB INTRADERMAL 23570) B/O 53 %ile (Z= 0.08) based on CDC (Girls, 2-20 Years) BMI-for-age based on BMI available as of 10/01/2021. Mikayla is normal weight (BMI 5th% - 84th%): [...] and safety. - Dental care discussed. - Clinical Insights handout given (See Patient Instructions). - Parent/guardian declined immunization for HPV and was counseled regarding risk. Discussed benefits of vaccination and encouraged patient to return to clinic for HPV vaccine. - Follow up in one year for routine physical. SIGNATURE: Doris Juarez APRN.CNP PATIENT NAME: Mikayla Blunt DATE: October 01, 2021 TIME: 9:25 AM documented in this encounterMartin Memorial Hospital03-22-2022 Miscellaneous Notes* Telephone Encounter - Irma Ford [facility] - 09/25/2021 11:26 AM EDT Patient contacted and scheduled with Dr. Valenzuela on 10/09/21. She was instructed to bring the prior op report or drop it off prior to her office visit. Patient said she will bring it to the scheduled appointment. 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 The person she goes to for her Orthotic highly recommended Dr. Valenzuela. I will have Irma check with Dr. Valenzuela to see if it is okay to schedule this patient. Ayaka Palencia [place] [facility] September 24, 2021 3:50 PM * Telephone Encounter - Ayaka Palencia [place] [facility] - 09/24/2021 3:47 PM EDT ----- Message from Bertha Still sent at 09/24/2021 8:10 AM EDT ----- Regarding: Orthopedics / B/L Foot: Hammer Toe / Previous Surgery By A Non-AG Provider Contact: Subject Line Format: Orthopedics / [Provider Name or Open & Body Part] / [Issue] Patient has been identified by name and Date of (Y/N): y Patient: Mikayla Blunt Date of : 2000 Previous Provider Seen: [...] other than patient: self Best contact number: [phone] Thank you, Bertha Still September 24, 2021 8:11 AM [facility] Past illness Narrative* [...] of this encounter (statuses as of 09/25/2021) [facility] Narrative* [...] of this encounter (statuses as of 10/02/2021) [facility] Narrative* [...] of this encounter (statuses as of 10/03/2021) [facility] illness Narrative* [...] of this encounter (statuses as of 10/08/2021) [facility] Narrative* [...] of this encounter (statuses as of 10/10/2021) [facility] Narrative* [...] of this encounter (statuses as of 10/15/2021) [facility] Narrative* [...] of this encounter (statuses as of 10/18/2021) [facility] Narrative* [...] of this encounter (statuses as of 11/05/2021) [facility] Narrative* [...] of this encounter (statuses as of 11/20/2021) [facility] Narrative* [...] of this encounter (statuses as of 11/20/2021) [facility] Narrative* [...] of this encounter (statuses as of 11/26/2021) [facility] Narrative* [...] of this encounter (statuses as of 01/14/2022) [facility] Narrative* [...] of this encounter (statuses as of 02/11/2022) [facility] Narrative* [...] of this encounter (statuses as of 02/19/2022) [facility] Narrative* [...] of this encounter (statuses as of 04/05/2022) [facility] of [facility] Narrative* [...] of this encounter (statuses as of 05/29/2022) [facility] N[facility]* Chief Complaint COUGH BODY ACHES FEV ER FATIGUE COVID-19 Consult Reason for Visit GERD (gastroesophage al reflux disease) [facility] Work Phone: Chiqp complaint+Reason for visit Narrative* Chief Complaint COUGH BODY ACHES FEV ER FATIGUE COVID-19 Consult GERD Reason for Visit GERD (gastroesophage al reflux disease) [facility] Work Phone: Chitk complaint+Reason for visit Narrative* Chief Complaint COUGH BODY ACHES FEV ER FATIGUE COVID-19 Consult GERD PALPITATIONS Reason for Visit GERD (gastroesophage al reflux disease) [facility] Work Phone: Evaluation note* Diagnosis Well adolescent visit without abnormal findings- Primary Intermittent asthma, well controlled Unspecified asthma Negative depression screening Encounter for screening for lipoid disorders Screening for lipoid disorders Encounter for screening for respiratory tuberculosis Screening examination for pulmonary tuberculosis [facility] Diagnosis Encounter for screening for respiratory tuberculosis- Primary Screening examination for pulmonary tuberculosis [facility]* Diagnosis PPD screening test- Primary Screening examination for pulmonary tuberculosis [facility] Diagnosis Screening examination for pulmonary tuberculosis- Primary [facility]* Diagnosis Acquired mallet toe, right- Primary Bilateral foot pain Pain in limb [facility] Diagnosis 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 [facility] Work [facility]: Evaluation note* Diagnosis POTS (postural orthostatic tachycardia syndrome) Tachycardia, unspecified Migraine without aura and without status migrainosus, not intractable Migraine without aura, without mention of intractable migraine without mention of status migrainosus [facility]* 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 documented [facility]* Diagnosis Flu-like symptoms- Primary Other general symptoms Suspected COVID-19 virus infection Wheezing [facility] Diagnosis Easy bruising- Primary Other symptoms involving skin and integumentary tissues [facility]* Diagnosis POTS (postural orthostatic tachycardia syndrome) Tachycardia, unspecified [facility]* 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 [facility]* Diagnosis Mallet toe, acquired, left- Primary Mallet toe, acquired, left documented [facility]* 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 [facility]* 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 [facility]* Diagnosis Post-operative state- Primary Other postprocedural status [facility]* 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 [facility]* Diagnosis Acquired mallet toe, right- Primary Post-operative state Other postprocedural status Ingrown toenail of both feet MT (mallet toe), right [facility]* Diagnosis Ingrowing nail- Primary Pain in toe of left foot Pain in limb Pain in toe of right foot Pain in limb MT (mallet toe), right [facility]* 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 MT (mallet toe), right [facility]* Diagnosis Pain in toe of right foot- Primary Pain in limb MT (mallet toe), right documented in this encounter [facility] note* 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 MT (mallet toe), right documented in this encounter [facility] note* Diagnosis Gastroesophageal reflux disease, [...] right documented in this encounter [facility] note* Diagnosis MT (mallet toe), right- Primary MT (mallet toe), right documented in this encounter [facility] note* Diagnosis Seborrheic dermatitis- Primary Seborrheic dermatitis, unspecified documented in this encounter [facility] note* Diagnosis Post-operative state- Primary Other postprocedural status documented in this encounter [facility] note* Diagnosis Perioral dermatitis- Primary Rosacea documented in this encounter [facility] note* 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 documented in this encounter [facility] note* 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 documented in this encounter [facility] note* 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 documented in this encounter [facility] note* Diagnosis Post-operative state- Primary Other postprocedural status Acquired mallet toe, right Ingrowing nail documented in this encounter [facility] note* Diagnosis Onset Date Resolution Status GERD (gastroesophageal reflux disease) acute [facility] Work Phone: Evaluation note* Diagnosis Ingrown toenail of both feet- Primary Onychodystrophy Other specified disease of nail documented in this encounter [facility] note* Diagnosis Ingrown toenail of both feet- Primary Post-operative state Other postprocedural status documented in this encounter [facility] note* Diagnosis Onset Date Resolution Status Abdominal pain chronic GERD (gastroesophageal reflux disease) chronic Liver hemangioma chronic [facility] Work Phone: Evaluation note* Diagnosis 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 [facility]* Diagnosis Epigastric pain- Primary Abdominal pain, epigastric Bilious vomiting with nausea 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 Belching Flatulence, eructation, and gas pain Hypokalemia Hypopotassemia documented [facility]* Diagnosis Encounter for gynecological examination (general) (routine) without abnormal findings- Primary Gastroparesis Nonintractable epilepsy without status epilepticus, unspecified epilepsy type (HCC) documented in this encounter [facility] note* Diagnosis Epigastric pain Abdominal pain, epigastric [facility]* Diagnosis 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 [facility]* Diagnosis Encounter for preconception consultation- Primary Other procreative management counseling and advice Gastroparesis Nonintractable epilepsy without status epilepticus, unspecified epilepsy type (HCC) POTS (postural orthostatic tachycardia syndrome) Tachycardia, unspecified Chronic fatigue syndrome History of foot fracture Personal history of traumatic fracture Primary narcolepsy without cataplexy Mild intermittent asthma without complication Unspecified asthma Elevated blood pressure reading without diagnosis of hypertension Drug-induced constipation Other constipation Chronic superficial gastritis without bleeding Atrophic gastritis without mention of hemorrhage Liver hemangioma Hemangioma of intra-abdominal structures * Assessment & Plan Note - Lizbeth Constantino MD - 12/09/2023 4:05 PM EDTAssociated Problem(s): Liver hemangioma Discussed can be estrogen sensitive Case reports of hemorrhage/rupture in with extremely poor outcomes Consider seeing extruder operator regarding hemangioma in preconception context as will need very close monitoring for any signs/symptoms rupture if she conceives * Assessment & Plan Note - Lizbeth Constantino MD - 12/09/2023 4:03 PM EDTAssociated Problem(s): Gastroparesis slows gut motility, may worsen if she conceives Following closely with GI * Assessment & Plan Note - Lizbeth Constantino MD - 12/09/2023 4:02 PM EDTAssociated Problem(s): Chronic superficial gastritis without bleeding Following with GI at [facility] * Assessment & Plan Note - Lizbeth Constantino MD - 12/09/2023 4:02 PM EDTAssociated Problem(s): Drug-induced constipation Discussed can slow gut motility and worsen gastroparesis and constipation Would require close follow up with GI and may worsen if she conceives * Assessment & Plan Note - Lizbeth Constantino MD - 12/09/2023 4:02 PM EDTAssociated Problem(s): Elevated blood pressure reading without diagnosis of hypertension BP low today but on propranolol Would recommend baby aspirin for preeclampsia risk reduction if can tolerate in * Assessment & Plan Note - Lizebth Constantino MD - 12/09/2023 4:01 PM EDTAssociated Problem(s): Epilepsy (HCC) Given off AEDs since 2018 would anticipate good outcome Discussed risks of seizure disorder in , many medications are safe Recommend vitamin with folic acid preconception * Assessment & Plan Note - Lizbeth Constantino MD - 12/09/2023 4:00 PM EDTAssociated Problem(s): Mild intermittent asthma without complication Albuterol as needed May affect medications given in for HTN or bleeding at delivery * Assessment & Plan Note - Lizbeth Constantino MD - 12/09/2023 3:59 PM EDTAssociated Problem(s): POTS (postural orthostatic tachycardia syndrome) can improve POTS symptoms in short term Some patients do require IV fluids or other interventions Discussed early labor epidural to mediate response to uterine contractions and expectations for If continues propranolol would recommend growth surveillance as some studies show correlationwith FGR * Assessment & Plan Note - Lizbeth Constantino MD - 12/09/2023 3:58 PM EDTAssociated Problem(s): Primary narcolepsy without cataplexy Daily amphetamine with good function Discussed risks/benefits/alternatives from perspective Can consider in at medical doses if needed for function, risk to fetus uncertain but likely not as high as reported risk for illicit amphetamine use [facility]* Diagnosis Request for sterilization- Primary [facility]* Diagnosis Sterilization consult- Primary Other general counseling and advice for contraceptive management [facility]* Diagnosis Encounter for sterilization- Primary Sterilization [facility]* Diagnosis Gastroparesis- Primary [facility]* Diagnosis H. pylori infection- Primary Helicobacter pylori (H. pylori) RUQ abdominal pain Abdominal pain, right upper quadrant Gastroparesis Aphthous ulcer of mouth Oral aphthae Gastritis without bleeding, unspecified chronicity, unspecified gastritis type Elevated gastrin level Abnormality of secretion of gastrin [facility]* Diagnosis H. pylori infection- Primary Helicobacter pylori (H. pylori) [facility]* Diagnosis Gastroesophageal reflux disease, unspecified whether esophagitis present- Primary Elevated blood pressure reading without diagnosis of hypertension Pre-op examination Preoperative examination, unspecified Mild intermittent asthma without complication Unspecified asthma POTS (postural orthostatic tachycardia syndrome) Tachycardia, unspecified Delayed emergence from anesthesia, subsequent encounter Nonintractable epilepsy without status epilepticus, 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 Encounter for preconception consultation- Primary Other procreative management counseling and advice Gastroparesis Nonintractable epilepsy without status epilepticus, unspecified epilepsy type (HCC) POTS (postural orthostatic tachycardia syndrome) Tachycardia, unspecified Chronic fatigue syndrome History of foot fracture Personal history of traumatic fracture Primary narcolepsy without cataplexy Mild intermittent asthma without complication Unspecified asthma Elevated blood pressure reading without diagnosis of hypertension Drug-induced constipation Other constipation Chronic superficial gastritis without bleeding Atrophic gastritis without mention of hemorrhage Liver hemangioma Hemangioma of intra-abdominal structures Unwanted fertility- Primary 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 Encounter for preconception consultation- Primary Other procreative management counseling and advice Gastroparesis Nonintractable epilepsy without status epilepticus, unspecified epilepsy type (HCC) POTS (postural orthostatic tachycardia syndrome) Tachycardia, unspecified Chronic fatigue syndrome History of foot fracture Personal history of traumatic fracture Primary narcolepsy without cataplexy Mild intermittent asthma without complication Unspecified asthma Elevated blood pressure reading without diagnosis of hypertension Drug-induced constipation Other constipation Chronic superficial gastritis without bleeding Atrophic gastritis without mention of hemorrhage Liver hemangioma Hemangioma of intra-abdominal structures Gastroparesis- Primary 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 Encounter for preconception consultation- Primary Other procreative management counseling and advice Gastroparesis Nonintractable epilepsy without status epilepticus, unspecified epilepsy type (HCC) POTS (postural orthostatic tachycardia syndrome) Tachycardia, unspecified Chronic fatigue syndrome History of foot fracture Personal history of traumatic fracture Primary narcolepsy without cataplexy Mild intermittent asthma without complication Unspecified asthma Elevated blood pressure reading without diagnosis of hypertension Drug-induced constipation Other constipation Chronic superficial gastritis without bleeding Atrophic gastritis without mention of hemorrhage Liver hemangioma Hemangioma of intra-abdominal structures Gastroparesis- Primary 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 Encounter for preconception consultation- Primary Other procreative management counseling and advice Gastroparesis Nonintractable epilepsy without status epilepticus, unspecified epilepsy type (HCC) POTS (postural orthostatic tachycardia syndrome) Tachycardia, unspecified Chronic fatigue syndrome History of foot fracture Personal history of traumatic fracture Primary narcolepsy without cataplexy Mild intermittent asthma without complication Unspecified asthma Elevated blood pressure reading without diagnosis of hypertension Drug-induced constipation Other constipation Chronic superficial gastritis without bleeding Atrophic gastritis without mention of hemorrhage Liver hemangioma Hemangioma of intra-abdominal structures Gastroparesis- Primary Irritable bowel syndrome with constipation Irritable bowel syndrome IBD (inflammatory bowel disease) Other and unspecified noninfectious gastroenteritis and colitis 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 Encounter for preconception consultation- Primary Other procreative management counseling and advice Gastroparesis Nonintractable epilepsy without status epilepticus, unspecified epilepsy type (HCC) POTS (postural orthostatic tachycardia syndrome) Tachycardia, unspecified Chronic fatigue syndrome History of foot fracture Personal history of traumatic fracture Primary narcolepsy without cataplexy Mild intermittent asthma without complication Unspecified asthma Elevated blood pressure reading without diagnosis of hypertension Drug-induced constipation Other constipation Chronic superficial gastritis without bleeding Atrophic gastritis without mention of hemorrhage Liver hemangioma Hemangioma of intra-abdominal structures Preoperative examination- Primary Preoperative examination, unspecified Educational circumstances- Primary Educational circumstance Unwanted fertility 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 Encounter for preconception consultation- Primary Other procreative management counseling and advice Gastroparesis Nonintractable epilepsy without status epilepticus, unspecified epilepsy type (HCC) POTS (postural orthostatic tachycardia syndrome) Tachycardia, unspecified Chronic fatigue syndrome History of foot fracture Personal history of traumatic fracture Primary narcolepsy without cataplexy Mild intermittent asthma without complication Unspecified asthma Elevated blood pressure reading without diagnosis of hypertension Drug-induced constipation Other constipation Chronic superficial gastritis without bleeding Atrophic gastritis without mention of hemorrhage Liver hemangioma Hemangioma of intra-abdominal structures Pre-op evaluation- Primary Preoperative examination, unspecified Delayed emergence from anesthesia, subsequent encounter PONV (postoperative nausea and vomiting) Nausea with vomiting Nonintractable epilepsy without status epilepticus, unspecified epilepsy type (HCC) Educational circumstances- Primary Educational circumstance Unwanted fertility [facility]* Diagnosis Gastroesophageal reflux disease, unspecified whether esophagitis present- Primary Elevated blood pressure reading without diagnosis of hypertension Pre-op examination Preoperative examination, unspecified Mild intermittent asthma without complication Unspecified asthma POTS (postural orthostatic tachycardia syndrome) Tachycardia, unspecified Delayed emergence from anesthesia, subsequent encounter Nonintractable epilepsy without status epilepticus, 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 Encounter for preconception consultation- Primary Other procreative management counseling and advice Gastroparesis Nonintractable epilepsy without status epilepticus, unspecified epilepsy type (HCC) POTS (postural orthostatic tachycardia syndrome) Tachycardia, unspecified Chronic fatigue syndrome History of foot fracture Personal history of traumatic fracture Primary narcolepsy without cataplexy Mild intermittent asthma without complication Unspecified asthma Elevated blood pressure reading without diagnosis of hypertension Drug-induced constipation Other constipation Chronic superficial gastritis without bleeding Atrophic gastritis without mention of hemorrhage Liver hemangioma Hemangioma of intra-abdominal structures Pre-op evaluation- Primary Preoperative examination, unspecified Delayed emergence from anesthesia, subsequent encounter PONV (postoperative nausea and vomiting) Nausea with vomiting Nonintractable epilepsy without status epilepticus, 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 * Assessment & Plan Note - Adela Lloyd PA-C - 03/04/2024 4:45 PM EDT Associated Problem(s): GERD (gastroesophageal reflux disease) Assessment: Controlled with pepcid. * Assessment & Plan Note - Adela Lloyd PA-C - 03/04/2024 4:45 PM EDT Associated Problem(s): Mild intermittent asthma without complication Assessment: Mild intermittent. Well controlled with PRN albuterol - very rare need. No recent use. * Assessment & Plan Note - Adela Lloyd PA-C - 03/04/2024 4:44 PM EDT Associated Problem(s): POTS (postural orthostatic tachycardia syndrome) Assessment: Follows with neuro-POTS team yearly. Last visit 09/01/23 with [facility]. Stable on current medication. * Assessment & Plan Note - Adela Lloyd PA-C - 03/04/2024 4:43 PM EDT Associated Problem(s): Liver hemangioma Assessment: Incidental finding on imaging. Following with PCP. * Assessment & Plan Note - Adela Lloyd PA-C - 03/04/2024 4:41 PM EDT Associated Problem(s): Elevated blood pressure reading without diagnosis of hypertension Assessment: BP can be labile D/t POTS - on propranolol which controls this. * Assessment & Plan Note - Adela Lloyd PA-C - 03/04/2024 4:41 PM EDT Associated Problem(s): Narcolepsy without cataplexy Assessment: Controlled with methylphenidate. * Assessment & Plan Note - Adela Lloyd PA-C - 03/04/2024 1:18 PM EDT Associated Problem(s): Epilepsy (HCC) Assessment: Last seizure > 5 yr ago. Off all medications now, cleared by neuro for PRN follow up. * Assessment & Plan Note - Adela Lloyd PA-C - 03/04/2024 1:18 PM EDT Associated Problem(s): PONV (postoperative nausea and vomiting) Assessment: Severe N+V in the past. Zofran works well. Not a good response to diphenhydramine or anticholinergics * Assessment & Plan Note - Adela Lloyd PA-C - 03/04/2024 1:16 PM EDT Associated Problem(s): Delayed emergence from anesthesia Assessment: Hx of narcolepsy. Reports delayed emergence (has never needed admission for this post-surgery). 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 Encounter for preconception consultation- Primary Other procreative management counseling and advice Gastroparesis Nonintractable epilepsy without status epilepticus, unspecified epilepsy type (HCC) POTS (postural orthostatic tachycardia syndrome) Tachycardia, unspecified Chronic fatigue syndrome History of foot fracture Personal history of traumatic fracture Primary narcolepsy without cataplexy Mild intermittent asthma without complication Unspecified asthma Elevated blood pressure reading without diagnosis of hypertension Drug-induced constipation Other constipation Chronic superficial gastritis without bleeding Atrophic gastritis without mention of hemorrhage Liver hemangioma Hemangioma of intra-abdominal structures Chronic cholecystitis- Primary Gastroparesis 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 Pre-op evaluation- Primary Preoperative examination, unspecified Delayed emergence from anesthesia, subsequent encounter PONV (postoperative nausea and vomiting) Nausea with vomiting Nonintractable epilepsy without status epilepticus, 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 Elevated blood pressure reading without diagnosis of hypertension Liver hemangioma Hemangioma of intra-abdominal structures POTS (postural orthostatic tachycardia syndrome) Tachycardia, unspecified Mild intermittent asthma without complication Unspecified asthma Gastroesophageal reflux disease, unspecified whether esophagitis present Gastroparesis Unwanted fertility 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 Encounter for preconception consultation- Primary Other procreative management counseling and advice Gastroparesis Nonintractable epilepsy without status epilepticus, unspecified epilepsy type (HCC) POTS (postural orthostatic tachycardia syndrome) Tachycardia, unspecified Chronic fatigue syndrome History of foot fracture Personal history of traumatic fracture Primary narcolepsy without cataplexy Mild intermittent asthma without complication Unspecified asthma Elevated blood pressure reading without diagnosis of hypertension Drug-induced constipation Other constipation Chronic superficial gastritis without bleeding Atrophic gastritis without mention of hemorrhage Liver hemangioma Hemangioma of intra-abdominal structures Pre-op evaluation- Primary Preoperative examination, unspecified Delayed emergence from anesthesia, subsequent encounter PONV (postoperative nausea and vomiting) Nausea with vomiting Nonintractable epilepsy without status epilepticus, 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 Elevated blood pressure reading without diagnosis of hypertension Liver hemangioma Hemangioma of intra-abdominal structures POTS (postural orthostatic tachycardia syndrome) Tachycardia, unspecified Mild intermittent asthma without complication Unspecified asthma Gastroesophageal reflux disease, unspecified whether esophagitis present Gastroparesis POTS (postural orthostatic tachycardia syndrome)- Primary Tachycardia, unspecified Gastroparesis 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 Encounter for preconception consultation- Primary Other procreative management counseling and advice Gastroparesis Nonintractable epilepsy without status epilepticus, unspecified epilepsy type (HCC) POTS (postural orthostatic tachycardia syndrome) Tachycardia, unspecified Chronic fatigue syndrome History of foot fracture Personal history of traumatic fracture Primary narcolepsy without cataplexy Mild intermittent asthma without complication Unspecified asthma Elevated blood pressure reading without diagnosis of hypertension Drug-induced constipation Other constipation Chronic superficial gastritis without bleeding Atrophic gastritis without mention of hemorrhage Liver hemangioma Hemangioma of intra-abdominal structures Pre-op evaluation- Primary Preoperative examination, unspecified Delayed emergence from anesthesia, subsequent encounter PONV (postoperative nausea and vomiting) Nausea with vomiting Nonintractable epilepsy without status epilepticus, 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 Elevated blood pressure reading without diagnosis of hypertension Liver hemangioma Hemangioma of intra-abdominal structures POTS (postural orthostatic tachycardia syndrome) Tachycardia, unspecified Mild intermittent asthma without complication Unspecified asthma Gastroesophageal reflux disease, unspecified whether esophagitis present Gastroparesis Post-operative state- Primary Other postprocedural status 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 Encounter for preconception consultation- Primary Other procreative management counseling and advice Gastroparesis Nonintractable epilepsy without status epilepticus, unspecified epilepsy type (HCC) POTS (postural orthostatic tachycardia syndrome) Tachycardia, unspecified Chronic fatigue syndrome History of foot fracture Personal history of traumatic fracture Primary narcolepsy without cataplexy Mild intermittent asthma without complication Unspecified asthma Elevated blood pressure reading without diagnosis of hypertension Drug-induced constipation Other constipation Chronic superficial gastritis without bleeding Atrophic gastritis without mention of hemorrhage Liver hemangioma Hemangioma of intra-abdominal structures Pre-op evaluation- Primary Preoperative examination, unspecified Delayed emergence from anesthesia, subsequent encounter PONV (postoperative nausea and vomiting) Nausea with vomiting Nonintractable epilepsy without status epilepticus, 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 Elevated blood pressure reading without diagnosis of hypertension Liver hemangioma Hemangioma of intra-abdominal structures POTS (postural orthostatic tachycardia syndrome) Tachycardia, unspecified Mild intermittent asthma without complication Unspecified asthma Gastroesophageal reflux disease, unspecified whether esophagitis present Gastroparesis Malignant carcinoid tumor, unspecified site (HCC)- Primary 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 Encounter for preconception consultation- Primary Other procreative management counseling and advice Gastroparesis Nonintractable epilepsy without status epilepticus, unspecified epilepsy type (HCC) POTS (postural orthostatic tachycardia syndrome) Tachycardia, unspecified Chronic fatigue syndrome History of foot fracture Personal history of traumatic fracture Primary narcolepsy without cataplexy Mild intermittent asthma without complication Unspecified asthma Elevated blood pressure reading without diagnosis of hypertension Drug-induced constipation Other constipation Chronic superficial gastritis without bleeding Atrophic gastritis without mention of hemorrhage Liver hemangioma Hemangioma of intra-abdominal structures Pre-op evaluation- Primary Preoperative examination, unspecified Delayed emergence from anesthesia, subsequent encounter PONV (postoperative nausea and vomiting) Nausea with vomiting Nonintractable epilepsy without status epilepticus, 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 Elevated blood pressure reading without diagnosis of hypertension Liver hemangioma Hemangioma of intra-abdominal structures POTS (postural orthostatic tachycardia syndrome) Tachycardia, unspecified Mild intermittent asthma without complication Unspecified asthma Gastroesophageal reflux disease, unspecified whether esophagitis present Gastroparesis Gastroparesis- Primary 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 Encounter for preconception consultation- Primary Other procreative management counseling and advice Gastroparesis Nonintractable epilepsy without status epilepticus, unspecified epilepsy type (HCC) POTS (postural orthostatic tachycardia syndrome) Tachycardia, unspecified Chronic fatigue syndrome History of foot fracture Personal history of traumatic fracture Primary narcolepsy without cataplexy Mild intermittent asthma without complication Unspecified asthma Elevated blood pressure reading without diagnosis of hypertension Drug-induced constipation Other constipation Chronic superficial gastritis without bleeding Atrophic gastritis without mention of hemorrhage Liver hemangioma Hemangioma of intra-abdominal structures Pre-op evaluation- Primary Preoperative examination, unspecified Delayed emergence from anesthesia, subsequent encounter PONV (postoperative nausea and vomiting) Nausea with vomiting Nonintractable epilepsy without status epilepticus, 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 Elevated blood pressure reading without diagnosis of hypertension Liver hemangioma Hemangioma of intra-abdominal structures POTS (postural orthostatic tachycardia syndrome) Tachycardia, unspecified Mild intermittent asthma without complication Unspecified asthma Gastroesophageal reflux disease, unspecified whether esophagitis present Gastroparesis S/P laparoscopy- Primary Other postprocedural status 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 Encounter for preconception consultation- Primary Other procreative management counseling and advice Gastroparesis Nonintractable epilepsy without status epilepticus, unspecified epilepsy type (HCC) POTS (postural orthostatic tachycardia syndrome) Tachycardia, unspecified Chronic fatigue syndrome History of foot fracture Personal history of traumatic fracture Primary narcolepsy without cataplexy Mild intermittent asthma without complication Unspecified asthma Elevated blood pressure reading without diagnosis of hypertension Drug-induced constipation Other constipation Chronic superficial gastritis without bleeding Atrophic gastritis without mention of hemorrhage Liver hemangioma Hemangioma of intra-abdominal structures Pre-op evaluation- Primary Preoperative examination, unspecified Delayed emergence from anesthesia, subsequent encounter PONV (postoperative nausea and vomiting) Nausea with vomiting Nonintractable epilepsy without status epilepticus, 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 Elevated blood pressure reading without diagnosis of hypertension Liver hemangioma Hemangioma of intra-abdominal structures POTS (postural orthostatic tachycardia syndrome) Tachycardia, unspecified Mild intermittent asthma without complication Unspecified asthma Gastroesophageal reflux disease, unspecified whether esophagitis present Gastroparesis Pre-op evaluation- Primary Preoperative examination, unspecified Nonintractable epilepsy without status epilepticus, unspecified epilepsy type (HCC) POTS (postural orthostatic tachycardia syndrome) Tachycardia, unspecified Primary narcolepsy without cataplexy Mild intermittent asthma without complication Unspecified asthma Gastroparesis Gastroesophageal reflux disease, unspecified whether esophagitis present Chronic superficial gastritis without bleeding Atrophic gastritis without mention of hemorrhage PONV (postoperative nausea and vomiting) Nausea with vomiting Delayed emergence from anesthesia, subsequent encounter * Assessment & Plan Note - Tena Harris APRN.CNP - 03/24/2024 9:35 AM EDT Associated Problem(s): Delayed emergence from anesthesia Assessment: hx of slow emergence, denies need for admission post- surgery unplanned in the past. * Assessment & Plan Note - Tena Harris APRN.CNP - 03/24/2024 9:35 AM EDT Associated Problem(s): PONV (postoperative nausea and vomiting) Assessment: requests premedication of zofran. * Assessment & Plan Note - Tena Harris APRN.CNP - 03/24/2024 9:34 AM EDT Associated Problem(s): GERD (gastroesophageal reflux disease) Assessment: treated with BID pepcid. * Assessment & Plan Note - Tena Harris APRN.CNP - 03/24/2024 9:34 AM EDT Associated Problem(s): Gastroparesis * Assessment & Plan Note - Tena Harris APRN.CNP - 03/24/2024 9:34 AM EDT Associated Problem(s): Chronic superficial gastritis without bleeding Assessment: managed and monitored by GI, scheduled for EGD. * Assessment & Plan Note - Tena Harris APRN.CNP - 03/24/2024 9:34 AM EDT Associated Problem(s): Mild intermittent asthma without complication Assessment: denies hx of asthma. No current inhalers or treatments or respiratory symptoms. Stable. * Assessment & Plan Note - Tena Harris APRN.CNP - 03/24/2024 9:33 AM EDT Associated Problem(s): Primary narcolepsy without cataplexy Assessment: stable with daily methylphenidate. * Assessment & Plan Note - Tena Harris APRN.CNP - 03/24/2024 9:31 AM EDT Associated Problem(s): POTS (postural orthostatic tachycardia syndrome) Assessment: stable on propranolol. managed and monitored by neurology. Last visit 03/12/24. Denies recent new or worsening symptoms or syncope. * Assessment & Plan Note - Tena Harris APRN.CNP - 03/24/2024 9:29 AM EDT Associated Problem(s): Epilepsy (HCC) Assessment: hx of childhood epilepsy, reports last seizure over 6 years ago, had been cleared by neurology. No long taking any anti seizure medications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 Encounter for preconception consultation- Primary Other procreative management counseling and advice Gastroparesis Nonintractable epilepsy without status epilepticus, unspecified epilepsy type (HCC) POTS (postural orthostatic tachycardia syndrome) Tachycardia, unspecified Chronic fatigue syndrome History of foot fracture Personal history of traumatic fracture Primary narcolepsy without cataplexy Mild intermittent asthma without complication Unspecified asthma Elevated blood pressure reading without diagnosis of hypertension Drug-induced constipation Other constipation Chronic superficial gastritis without bleeding Atrophic gastritis without mention of hemorrhage Liver hemangioma Hemangioma of intra-abdominal structures Pre-op evaluation- Primary Preoperative examination, unspecified Delayed emergence from anesthesia, subsequent encounter PONV (postoperative nausea and vomiting) Nausea with vomiting Nonintractable epilepsy without status epilepticus, 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 Elevated blood pressure reading without diagnosis of hypertension Liver hemangioma Hemangioma of intra-abdominal structures POTS (postural orthostatic tachycardia syndrome) Tachycardia, unspecified Mild intermittent asthma without complication Unspecified asthma Gastroesophageal reflux disease, unspecified whether esophagitis present Gastroparesis Pre-op evaluation- Primary Preoperative examination, unspecified Nonintractable epilepsy without status epilepticus, unspecified epilepsy type (HCC) POTS (postural orthostatic tachycardia syndrome) Tachycardia, unspecified Primary narcolepsy without cataplexy Mild intermittent asthma without complication Unspecified asthma Gastroparesis Gastroesophageal reflux disease, unspecified whether esophagitis present Chronic superficial gastritis without bleeding Atrophic gastritis without mention of hemorrhage PONV (postoperative nausea and vomiting) Nausea with vomiting Delayed emergence from anesthesia, subsequent encounter Post-operative state- Primary Other postprocedural status H/O bilateral salpingectomy Personal history of surgery to other organs [facility] Diagnosis Gastroesophageal reflux disease, unspecified whether esophagitis present- Primary Elevated blood pressure reading without diagnosis of hypertension Pre-op examination Preoperative examination, unspecified Mild intermittent asthma without complication Unspecified asthma POTS (postural orthostatic tachycardia syndrome) Tachycardia, unspecified Delayed emergence from anesthesia, subsequent encounter Nonintractable epilepsy without status epilepticus, 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 Encounter for preconception consultation- Primary Other procreative management counseling and advice Gastroparesis Nonintractable epilepsy without status epilepticus, unspecified epilepsy type (HCC) POTS (postural orthostatic tachycardia syndrome) Tachycardia, unspecified Chronic fatigue syndrome History of foot fracture Personal history of traumatic fracture Primary narcolepsy without cataplexy Mild intermittent asthma without complication Unspecified asthma Elevated blood pressure reading without diagnosis of hypertension Drug-induced constipation Other constipation Chronic superficial gastritis without bleeding Atrophic gastritis without mention of hemorrhage Liver hemangioma Hemangioma of intra-abdominal structures Pre-op evaluation- Primary Preoperative examination, unspecified Delayed emergence from anesthesia, subsequent encounter PONV (postoperative nausea and vomiting) Nausea with vomiting Nonintractable epilepsy without status epilepticus, 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 Elevated blood pressure reading without diagnosis of hypertension Liver hemangioma Hemangioma of intra-abdominal structures POTS (postural orthostatic tachycardia syndrome) Tachycardia, unspecified Mild intermittent asthma without complication Unspecified asthma Gastroesophageal reflux disease, unspecified whether esophagitis present Gastroparesis Pre-op evaluation- Primary Preoperative examination, unspecified Nonintractable epilepsy without status epilepticus, unspecified epilepsy type (HCC) POTS (postural orthostatic tachycardia syndrome) Tachycardia, unspecified Primary narcolepsy without cataplexy Mild intermittent asthma without complication Unspecified asthma Gastroparesis Gastroesophageal reflux disease, unspecified whether esophagitis present Chronic superficial gastritis without bleeding Atrophic gastritis without mention of hemorrhage PONV (postoperative nausea and vomiting) Nausea with vomiting Delayed emergence from anesthesia, subsequent encounter Gastroparesis- Primary Intractable nausea and vomiting Persistent vomiting 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 Encounter for preconception consultation- Primary Other procreative management counseling and advice Gastroparesis Nonintractable epilepsy without status epilepticus, unspecified epilepsy type (HCC) POTS (postural orthostatic tachycardia syndrome) Tachycardia, unspecified Chronic fatigue syndrome History of foot fracture Personal history of traumatic fracture Primary narcolepsy without cataplexy Mild intermittent asthma without complication Unspecified asthma Elevated blood pressure reading without diagnosis of hypertension Drug-induced constipation Other constipation Chronic superficial gastritis without bleeding Atrophic gastritis without mention of hemorrhage Liver hemangioma Hemangioma of intra-abdominal structures Pre-op evaluation- Primary Preoperative examination, unspecified Delayed emergence from anesthesia, subsequent encounter PONV (postoperative nausea and vomiting) Nausea with vomiting Nonintractable epilepsy without status epilepticus, 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 Elevated blood pressure reading without diagnosis of hypertension Liver hemangioma Hemangioma of intra-abdominal structures POTS (postural orthostatic tachycardia syndrome) Tachycardia, unspecified Mild intermittent asthma without complication Unspecified asthma Gastroesophageal reflux disease, unspecified whether esophagitis present Gastroparesis Pre-op evaluation- Primary Preoperative examination, unspecified Nonintractable epilepsy without status epilepticus, unspecified epilepsy type (HCC) POTS (postural orthostatic tachycardia syndrome) Tachycardia, unspecified Primary narcolepsy without cataplexy Mild intermittent asthma without complication Unspecified asthma Gastroparesis Gastroesophageal reflux disease, unspecified whether esophagitis present Chronic superficial gastritis without bleeding Atrophic gastritis without mention of hemorrhage PONV (postoperative nausea and vomiting) Nausea with vomiting Delayed emergence from anesthesia, subsequent encounter Gastroparesis- Primary IBD (inflammatory bowel disease) Other and unspecified noninfectious gastroenteritis and colitis 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 Encounter for preconception consultation- Primary Other procreative management counseling and advice Gastroparesis Nonintractable epilepsy without status epilepticus, unspecified epilepsy type (HCC) POTS (postural orthostatic tachycardia syndrome) Tachycardia, unspecified Chronic fatigue syndrome History of foot fracture Personal history of traumatic fracture Primary narcolepsy without cataplexy Mild intermittent asthma without complication Unspecified asthma Elevated blood pressure reading without diagnosis of hypertension Drug-induced constipation Other constipation Chronic superficial gastritis without bleeding Atrophic gastritis without mention of hemorrhage Liver hemangioma Hemangioma of intra-abdominal structures Pre-op evaluation- Primary Preoperative examination, unspecified Delayed emergence from anesthesia, subsequent encounter PONV (postoperative nausea and vomiting) Nausea with vomiting Nonintractable epilepsy without status epilepticus, 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 Elevated blood pressure reading without diagnosis of hypertension Liver hemangioma Hemangioma of intra-abdominal structures POTS (postural orthostatic tachycardia syndrome) Tachycardia, unspecified Mild intermittent asthma without complication Unspecified asthma Gastroesophageal reflux disease, unspecified whether esophagitis present Gastroparesis Pre-op evaluation- Primary Preoperative examination, unspecified Nonintractable epilepsy without status epilepticus, unspecified epilepsy type (HCC) POTS (postural orthostatic tachycardia syndrome) Tachycardia, unspecified Primary narcolepsy without cataplexy Mild intermittent asthma without complication Unspecified asthma Gastroparesis Gastroesophageal reflux disease, unspecified whether esophagitis present Chronic superficial gastritis without bleeding Atrophic gastritis without mention of hemorrhage PONV (postoperative nausea and vomiting) Nausea with vomiting Delayed emergence from anesthesia, subsequent encounter Crohn's disease of colon without complication (HCC)- Primary 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 Encounter for preconception consultation- Primary Other procreative management counseling and advice Gastroparesis Nonintractable epilepsy without status epilepticus, unspecified epilepsy type (HCC) POTS (postural orthostatic tachycardia syndrome) Tachycardia, unspecified Chronic fatigue syndrome History of foot fracture Personal history of traumatic fracture Primary narcolepsy without cataplexy Mild intermittent asthma without complication Unspecified asthma Elevated blood pressure reading without diagnosis of hypertension Drug-induced constipation Other constipation Chronic superficial gastritis without bleeding Atrophic gastritis without mention of hemorrhage Liver hemangioma Hemangioma of intra-abdominal structures Pre-op evaluation- Primary Preoperative examination, unspecified Delayed emergence from anesthesia, subsequent encounter PONV (postoperative nausea and vomiting) Nausea with vomiting Nonintractable epilepsy without status epilepticus, 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 Elevated blood pressure reading without diagnosis of hypertension Liver hemangioma Hemangioma of intra-abdominal structures POTS (postural orthostatic tachycardia syndrome) Tachycardia, unspecified Mild intermittent asthma without complication Unspecified asthma Gastroesophageal reflux disease, unspecified whether esophagitis present Gastroparesis Pre-op evaluation- Primary Preoperative examination, unspecified Nonintractable epilepsy without status epilepticus, unspecified epilepsy type (HCC) POTS (postural orthostatic tachycardia syndrome) Tachycardia, unspecified Primary narcolepsy without cataplexy Mild intermittent asthma without complication Unspecified asthma Gastroparesis Gastroesophageal reflux disease, unspecified whether esophagitis present Chronic superficial gastritis without bleeding Atrophic gastritis without mention of hemorrhage PONV (postoperative nausea and vomiting) Nausea with vomiting Delayed emergence from anesthesia, subsequent encounter Malignant carcinoid tumor, unspecified site (HCC) [facility] Diagnosis Elevated transaminase level Nonspecific elevation of levels of transaminase or lactic acid dehydrogenase (LDH) Liver lesion Other specified disorders of liver Constipation, unspecified constipation type 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 Encounter for preconception consultation- Primary Other procreative management counseling and advice Gastroparesis Nonintractable epilepsy without status epilepticus, unspecified epilepsy type (HCC) POTS (postural orthostatic tachycardia syndrome) Tachycardia, unspecified Chronic fatigue syndrome History of foot fracture Personal history of traumatic fracture Primary narcolepsy without cataplexy Mild intermittent asthma without complication Unspecified asthma Elevated blood pressure reading without diagnosis of hypertension Drug-induced constipation Other constipation Chronic superficial gastritis without bleeding Atrophic gastritis without mention of hemorrhage Liver hemangioma Hemangioma of intra-abdominal structures Pre-op evaluation- Primary Preoperative examination, unspecified Delayed emergence from anesthesia, subsequent encounter PONV (postoperative nausea and vomiting) Nausea with vomiting Nonintractable epilepsy without status epilepticus, 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 Elevated blood pressure reading without diagnosis of hypertension Liver hemangioma Hemangioma of intra-abdominal structures POTS (postural orthostatic tachycardia syndrome) Tachycardia, unspecified Mild intermittent asthma without complication Unspecified asthma Gastroesophageal reflux disease, unspecified whether esophagitis present Gastroparesis Pre-op evaluation- Primary Preoperative examination, unspecified Nonintractable epilepsy without status epilepticus, unspecified epilepsy type (HCC) POTS (postural orthostatic tachycardia syndrome) Tachycardia, unspecified Primary narcolepsy without cataplexy Mild intermittent asthma without complication Unspecified asthma Gastroparesis Gastroesophageal reflux disease, unspecified whether esophagitis present Chronic superficial gastritis without bleeding Atrophic gastritis without mention of hemorrhage PONV (postoperative nausea and vomiting) Nausea with vomiting Delayed emergence from anesthesia, subsequent encounter Leg cramps- Primary Cramp of limb Elevated gastrin level Abnormality of secretion of gastrin Constipation, unspecified constipation type Gastroparesis [facility]* Diagnosis Gastroesophageal reflux disease, unspecified whether esophagitis present- Primary Elevated blood pressure reading without diagnosis of hypertension Pre-op examination Preoperative examination, unspecified Mild intermittent asthma without complication Unspecified asthma POTS (postural orthostatic tachycardia syndrome) Tachycardia, unspecified Delayed emergence from anesthesia, subsequent encounter Nonintractable epilepsy without status epilepticus, 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 Encounter for preconception consultation- Primary Other procreative management counseling and advice Gastroparesis Nonintractable epilepsy without status epilepticus, unspecified epilepsy type (HCC) POTS (postural orthostatic tachycardia syndrome) Tachycardia, unspecified Chronic fatigue syndrome History of foot fracture Personal history of traumatic fracture Primary narcolepsy without cataplexy Mild intermittent asthma without complication Unspecified asthma Elevated blood pressure reading without diagnosis of hypertension Drug-induced constipation Other constipation Chronic superficial gastritis without bleeding Atrophic gastritis without mention of hemorrhage Liver hemangioma Hemangioma of intra-abdominal structures Pre-op evaluation- Primary Preoperative examination, unspecified Delayed emergence from anesthesia, subsequent encounter PONV (postoperative nausea and vomiting) Nausea with vomiting Nonintractable epilepsy without status epilepticus, 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 Elevated blood pressure reading without diagnosis of hypertension Liver hemangioma Hemangioma of intra-abdominal structures POTS (postural orthostatic tachycardia syndrome) Tachycardia, unspecified Mild intermittent asthma without complication Unspecified asthma Gastroesophageal reflux disease, unspecified whether esophagitis present Gastroparesis Pre-op evaluation- Primary Preoperative examination, unspecified Nonintractable epilepsy without status epilepticus, unspecified epilepsy type (HCC) POTS (postural orthostatic tachycardia syndrome) Tachycardia, unspecified Primary narcolepsy without cataplexy Mild intermittent asthma without complication Unspecified asthma Gastroparesis Gastroesophageal reflux disease, unspecified whether esophagitis present Chronic superficial gastritis without bleeding Atrophic gastritis without mention of hemorrhage PONV (postoperative nausea and vomiting) Nausea with vomiting Delayed emergence from anesthesia, subsequent encounter Fever in other diseases- Primary Gastroparesis POTS (postural orthostatic tachycardia syndrome) Tachycardia, unspecified Chronic fatigue syndrome [facility] Diagnosis Gastroesophageal reflux disease, unspecified whether esophagitis present- Primary Elevated blood pressure reading without diagnosis of hypertension Pre-op examination Preoperative examination, unspecified Mild intermittent asthma without complication Unspecified asthma POTS (postural orthostatic tachycardia syndrome) Tachycardia, unspecified Delayed emergence from anesthesia, subsequent encounter Nonintractable epilepsy without status epilepticus, 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 Encounter for preconception consultation- Primary Other procreative management counseling and advice Gastroparesis Nonintractable epilepsy without status epilepticus, unspecified epilepsy type (HCC) POTS (postural orthostatic tachycardia syndrome) Tachycardia, unspecified Chronic fatigue syndrome History of foot fracture Personal history of traumatic fracture Primary narcolepsy without cataplexy Mild intermittent asthma without complication Unspecified asthma Elevated blood pressure reading without diagnosis of hypertension Drug-induced constipation Other constipation Chronic superficial gastritis without bleeding Atrophic gastritis without mention of hemorrhage Liver hemangioma Hemangioma of intra-abdominal structures Pre-op evaluation- Primary Preoperative examination, unspecified Delayed emergence from anesthesia, subsequent encounter PONV (postoperative nausea and vomiting) Nausea with vomiting Nonintractable epilepsy without status epilepticus, 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 Elevated blood pressure reading without diagnosis of hypertension Liver hemangioma Hemangioma of intra-abdominal structures POTS (postural orthostatic tachycardia syndrome) Tachycardia, unspecified Mild intermittent asthma without complication Unspecified asthma Gastroesophageal reflux disease, unspecified whether esophagitis present Gastroparesis Pre-op evaluation- Primary Preoperative examination, unspecified Nonintractable epilepsy without status epilepticus, unspecified epilepsy type (HCC) POTS (postural orthostatic tachycardia syndrome) Tachycardia, unspecified Primary narcolepsy without cataplexy Mild intermittent asthma without complication Unspecified asthma Gastroparesis Gastroesophageal reflux disease, unspecified whether esophagitis present Chronic superficial gastritis without bleeding Atrophic gastritis without mention of hemorrhage PONV (postoperative nausea and vomiting) Nausea with vomiting Delayed emergence from anesthesia, subsequent encounter Aphthous ulcer of mouth- Primary Oral aphthae 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 Encounter for preconception consultation- Primary Other procreative management counseling and advice Gastroparesis Nonintractable epilepsy without status epilepticus, unspecified epilepsy type (HCC) POTS (postural orthostatic tachycardia syndrome) Tachycardia, unspecified Chronic fatigue syndrome History of foot fracture Personal history of traumatic fracture Primary narcolepsy without cataplexy Mild intermittent asthma without complication Unspecified asthma Elevated blood pressure reading without diagnosis of hypertension Drug-induced constipation Other constipation Chronic superficial gastritis without bleeding Atrophic gastritis without mention of hemorrhage Liver hemangioma Hemangioma of intra-abdominal structures Pre-op evaluation- Primary Preoperative examination, unspecified Delayed emergence from anesthesia, subsequent encounter PONV (postoperative nausea and vomiting) Nausea with vomiting Nonintractable epilepsy without status epilepticus, 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 Elevated blood pressure reading without diagnosis of hypertension Liver hemangioma Hemangioma of intra-abdominal structures POTS (postural orthostatic tachycardia syndrome) Tachycardia, unspecified Mild intermittent asthma without complication Unspecified asthma Gastroesophageal reflux disease, unspecified whether esophagitis present Gastroparesis Pre-op evaluation- Primary Preoperative examination, unspecified Nonintractable epilepsy without status epilepticus, unspecified epilepsy type (HCC) POTS (postural orthostatic tachycardia syndrome) Tachycardia, unspecified Primary narcolepsy without cataplexy Mild intermittent asthma without complication Unspecified asthma Gastroparesis Gastroesophageal reflux disease, unspecified whether esophagitis present Chronic superficial gastritis without bleeding Atrophic gastritis without mention of hemorrhage PONV (postoperative nausea and vomiting) Nausea with vomiting Delayed emergence from anesthesia, subsequent encounter Low serum complement C4- Primary Angioedema, sequela POTS (postural orthostatic tachycardia syndrome) Tachycardia, unspecified Gastroparesis Anti-TPO antibodies present Other and unspecified nonspecific immunological findings [facility] Diagnosis Gastroesophageal reflux disease, unspecified whether esophagitis present- Primary Elevated blood pressure reading without diagnosis of hypertension Pre-op examination Preoperative examination, unspecified Mild intermittent asthma without complication Unspecified asthma POTS (postural orthostatic tachycardia syndrome) Tachycardia, unspecified Delayed emergence from anesthesia, subsequent encounter Nonintractable epilepsy without status epilepticus, 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 Encounter for preconception consultation- Primary Other procreative management counseling and advice Gastroparesis Nonintractable epilepsy without status epilepticus, unspecified epilepsy type (HCC) POTS (postural orthostatic tachycardia syndrome) Tachycardia, unspecified Chronic fatigue syndrome History of foot fracture Personal history of traumatic fracture Primary narcolepsy without cataplexy Mild intermittent asthma without complication Unspecified asthma Elevated blood pressure reading without diagnosis of hypertension Drug-induced constipation Other constipation Chronic superficial gastritis without bleeding Atrophic gastritis without mention of hemorrhage Liver hemangioma Hemangioma of intra-abdominal structures Pre-op evaluation- Primary Preoperative examination, unspecified Delayed emergence from anesthesia, subsequent encounter PONV (postoperative nausea and vomiting) Nausea with vomiting Nonintractable epilepsy without status epilepticus, 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 Elevated blood pressure reading without diagnosis of hypertension Liver hemangioma Hemangioma of intra-abdominal structures POTS (postural orthostatic tachycardia syndrome) Tachycardia, unspecified Mild intermittent asthma without complication Unspecified asthma Gastroesophageal reflux disease, unspecified whether esophagitis present Gastroparesis Pre-op evaluation- Primary Preoperative examination, unspecified Nonintractable epilepsy without status epilepticus, unspecified epilepsy type (HCC) POTS (postural orthostatic tachycardia syndrome) Tachycardia, unspecified Primary narcolepsy without cataplexy Mild intermittent asthma without complication Unspecified asthma Gastroparesis Gastroesophageal reflux disease, unspecified whether esophagitis present Chronic superficial gastritis without bleeding Atrophic gastritis without mention of hemorrhage PONV (postoperative nausea and vomiting) Nausea with vomiting Delayed emergence from anesthesia, subsequent encounter Angioedema, sequela- Primary Low serum complement C4 Oral ulcer Other and unspecified diseases of the oral soft tissues Gastroparesis 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 Encounter for preconception consultation- Primary Other procreative management counseling and advice Gastroparesis Nonintractable epilepsy without status epilepticus, unspecified epilepsy type (HCC) POTS (postural orthostatic tachycardia syndrome) Tachycardia, unspecified Chronic fatigue syndrome History of foot fracture Personal history of traumatic fracture Primary narcolepsy without cataplexy Mild intermittent asthma without complication Unspecified asthma Elevated blood pressure reading without diagnosis of hypertension Drug-induced constipation Other constipation Chronic superficial gastritis without bleeding Atrophic gastritis without mention of hemorrhage Liver hemangioma Hemangioma of intra-abdominal structures Pre-op evaluation- Primary Preoperative examination, unspecified Delayed emergence from anesthesia, subsequent encounter PONV (postoperative nausea and vomiting) Nausea with vomiting Nonintractable epilepsy without status epilepticus, 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 Elevated blood pressure reading without diagnosis of hypertension Liver hemangioma Hemangioma of intra-abdominal structures POTS (postural orthostatic tachycardia syndrome) Tachycardia, unspecified Mild intermittent asthma without complication Unspecified asthma Gastroesophageal reflux disease, unspecified whether esophagitis present Gastroparesis Pre-op evaluation- Primary Preoperative examination, unspecified Nonintractable epilepsy without status epilepticus, unspecified epilepsy type (HCC) POTS (postural orthostatic tachycardia syndrome) Tachycardia, unspecified Primary narcolepsy without cataplexy Mild intermittent asthma without complication Unspecified asthma Gastroparesis Gastroesophageal reflux disease, unspecified whether esophagitis present Chronic superficial gastritis without bleeding Atrophic gastritis without mention of hemorrhage PONV (postoperative nausea and vomiting) Nausea with vomiting Delayed emergence from anesthesia, subsequent encounter Gastroparesis documented in this encounter [facility]* Diagnosis Gastroesophageal reflux disease, unspecified whether esophagitis present- Primary Elevated blood pressure reading without diagnosis of hypertension Pre-op examination Preoperative examination, unspecified Mild intermittent asthma without complication Unspecified asthma POTS (postural orthostatic tachycardia syndrome) Tachycardia, unspecified Delayed emergence from anesthesia, subsequent encounter Nonintractable epilepsy without status epilepticus, 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 Encounter for preconception consultation- Primary Other procreative management counseling and advice Gastroparesis Nonintractable epilepsy without status epilepticus, unspecified epilepsy type (HCC) POTS (postural orthostatic tachycardia syndrome) Tachycardia, unspecified Chronic fatigue syndrome History of foot fracture Personal history of traumatic fracture Primary narcolepsy without cataplexy Mild intermittent asthma without complication Unspecified asthma Elevated blood pressure reading without diagnosis of hypertension Drug-induced constipation Other constipation Chronic superficial gastritis without bleeding Atrophic gastritis without mention of hemorrhage Liver hemangioma Hemangioma of intra-abdominal structures Pre-op evaluation- Primary Preoperative examination, unspecified Delayed emergence from anesthesia, subsequent encounter PONV (postoperative nausea and vomiting) Nausea with vomiting Nonintractable epilepsy without status epilepticus, 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 Elevated blood pressure reading without diagnosis of hypertension Liver hemangioma Hemangioma of intra-abdominal structures POTS (postural orthostatic tachycardia syndrome) Tachycardia, unspecified Mild intermittent asthma without complication Unspecified asthma Gastroesophageal reflux disease, unspecified whether esophagitis present Gastroparesis Pre-op evaluation- Primary Preoperative examination, unspecified Nonintractable epilepsy without status epilepticus, unspecified epilepsy type (HCC) POTS (postural orthostatic tachycardia syndrome) Tachycardia, unspecified Primary narcolepsy without cataplexy Mild intermittent asthma without complication Unspecified asthma Gastroparesis Gastroesophageal reflux disease, unspecified whether esophagitis present Chronic superficial gastritis without bleeding Atrophic gastritis without mention of hemorrhage PONV (postoperative nausea and vomiting) Nausea with vomiting Delayed emergence from anesthesia, subsequent encounter Elevated LFTs- Primary Other abnormal blood chemistry Gastroparesis Slow transit constipation Positive serological test result 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 Encounter for preconception consultation- Primary Other procreative management counseling and advice Gastroparesis Nonintractable epilepsy without status epilepticus, unspecified epilepsy type (HCC) POTS (postural orthostatic tachycardia syndrome) Tachycardia, unspecified Chronic fatigue syndrome History of foot fracture Personal history of traumatic fracture Primary narcolepsy without cataplexy Mild intermittent asthma without complication Unspecified asthma Elevated blood pressure reading without diagnosis of hypertension Drug-induced constipation Other constipation Chronic superficial gastritis without bleeding Atrophic gastritis without mention of hemorrhage Liver hemangioma Hemangioma of intra-abdominal structures Pre-op evaluation- Primary Preoperative examination, unspecified Delayed emergence from anesthesia, subsequent encounter PONV (postoperative nausea and vomiting) Nausea with vomiting Nonintractable epilepsy without status epilepticus, 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 Elevated blood pressure reading without diagnosis of hypertension Liver hemangioma Hemangioma of intra-abdominal structures POTS (postural orthostatic tachycardia syndrome) Tachycardia, unspecified Mild intermittent asthma without complication Unspecified asthma Gastroesophageal reflux disease, unspecified whether esophagitis present Gastroparesis Pre-op evaluation- Primary Preoperative examination, unspecified Nonintractable epilepsy without status epilepticus, unspecified epilepsy type (HCC) POTS (postural orthostatic tachycardia syndrome) Tachycardia, unspecified Primary narcolepsy without cataplexy Mild intermittent asthma without complication Unspecified asthma Gastroparesis Gastroesophageal reflux disease, unspecified whether esophagitis present Chronic superficial gastritis without bleeding Atrophic gastritis without mention of hemorrhage PONV (postoperative nausea and vomiting) Nausea with vomiting Delayed emergence from anesthesia, subsequent encounter Generalized abdominal pain- Primary Abdominal pain, generalized Gastroparesis Chronic idiopathic constipation Unspecified 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 Encounter for preconception consultation- Primary Other procreative management counseling and advice Gastroparesis Nonintractable epilepsy without status epilepticus, unspecified epilepsy type (HCC) POTS (postural orthostatic tachycardia syndrome) Tachycardia, unspecified Chronic fatigue syndrome History of foot fracture Personal history of traumatic fracture Primary narcolepsy without cataplexy Mild intermittent asthma without complication Unspecified asthma Elevated blood pressure reading without diagnosis of hypertension Drug-induced constipation Other constipation Chronic superficial gastritis without bleeding Atrophic gastritis without mention of hemorrhage Liver hemangioma Hemangioma of intra-abdominal structures Pre-op evaluation- Primary Preoperative examination, unspecified Delayed emergence from anesthesia, subsequent encounter PONV (postoperative nausea and vomiting) Nausea with vomiting Nonintractable epilepsy without status epilepticus, 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 Elevated blood pressure reading without diagnosis of hypertension Liver hemangioma Hemangioma of intra-abdominal structures POTS (postural orthostatic tachycardia syndrome) Tachycardia, unspecified Mild intermittent asthma without complication Unspecified asthma Gastroesophageal reflux disease, unspecified whether esophagitis present Gastroparesis Pre-op evaluation- Primary Preoperative examination, unspecified Nonintractable epilepsy without status epilepticus, unspecified epilepsy type (HCC) POTS (postural orthostatic tachycardia syndrome) Tachycardia, unspecified Primary narcolepsy without cataplexy Mild intermittent asthma without complication Unspecified asthma Gastroparesis Gastroesophageal reflux disease, unspecified whether esophagitis present Chronic superficial gastritis without bleeding Atrophic gastritis without mention of hemorrhage PONV (postoperative nausea and vomiting) Nausea with vomiting Delayed emergence from anesthesia, subsequent encounter Angioedema, sequela- Primary [facility]* Diagnosis Gastroesophageal reflux disease, unspecified whether esophagitis present- Primary Elevated blood pressure reading without diagnosis of hypertension Pre-op examination Preoperative examination, unspecified Mild intermittent asthma without complication (HCC) Unspecified asthma POTS (postural orthostatic tachycardia syndrome) Tachycardia, unspecified Delayed emergence from anesthesia, subsequent encounter Nonintractable epilepsy without status epilepticus, 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) Encounter for preconception consultation- Primary Other procreative management counseling and advice Gastroparesis Nonintractable epilepsy without status epilepticus, unspecified epilepsy type (HCC) POTS (postural orthostatic tachycardia syndrome) Tachycardia, unspecified Chronic fatigue syndrome History of foot fracture Personal history of traumatic fracture 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) Mild intermittent asthma without complication (HCC) Unspecified asthma Elevated blood pressure reading without diagnosis of hypertension Drug-induced constipation Other constipation Chronic superficial gastritis without bleeding Atrophic gastritis without mention of hemorrhage Liver hemangioma Hemangioma of intra-abdominal structures Pre-op evaluation- Primary Preoperative examination, unspecified Delayed emergence from anesthesia, subsequent encounter PONV (postoperative nausea and vomiting) Nausea with vomiting Nonintractable epilepsy without status epilepticus, 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) Elevated blood pressure reading without diagnosis of hypertension Liver hemangioma Hemangioma of intra-abdominal structures POTS (postural orthostatic tachycardia syndrome) Tachycardia, unspecified Mild intermittent asthma without complication (HCC) Unspecified asthma Gastroesophageal reflux disease, unspecified whether esophagitis present Gastroparesis Pre-op evaluation- Primary Preoperative examination, unspecified Nonintractable epilepsy without status epilepticus, unspecified epilepsy type (HCC) POTS (postural orthostatic tachycardia syndrome) Tachycardia, unspecified 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) Mild intermittent asthma without complication (HCC) Unspecified asthma Gastroparesis Gastroesophageal reflux disease, unspecified whether esophagitis present Chronic superficial gastritis without bleeding Atrophic gastritis without mention of hemorrhage PONV (postoperative nausea and vomiting) Nausea with vomiting Delayed emergence from anesthesia, subsequent encounter Recurrent infections- Primary Unspecified infectious and parasitic diseases Hereditary angioedema type 2 (HCC) Angioedema, sequela Low serum complement C4 Gastroparesis Oral ulcer Other and unspecified diseases of the oral soft tissues 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) Encounter for preconception consultation- Primary Other procreative management counseling and advice Gastroparesis Nonintractable epilepsy without status epilepticus, unspecified epilepsy type (HCC) POTS (postural orthostatic tachycardia syndrome) Tachycardia, unspecified Chronic fatigue syndrome History of foot fracture Personal history of traumatic fracture 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) Mild intermittent asthma without complication (HCC) Unspecified asthma Elevated blood pressure reading without diagnosis of hypertension Drug-induced constipation Other constipation Chronic superficial gastritis without bleeding Atrophic gastritis without mention of hemorrhage Liver hemangioma Hemangioma of intra-abdominal structures Pre-op evaluation- Primary Preoperative examination, unspecified Delayed emergence from anesthesia, subsequent encounter PONV (postoperative nausea and vomiting) Nausea with vomiting Nonintractable epilepsy without status epilepticus, 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) Elevated blood pressure reading without diagnosis of hypertension Liver hemangioma Hemangioma of intra-abdominal structures POTS (postural orthostatic tachycardia syndrome) Tachycardia, unspecified Mild intermittent asthma without complication (HCC) Unspecified asthma Gastroesophageal reflux disease, unspecified whether esophagitis present Gastroparesis Pre-op evaluation- Primary Preoperative examination, unspecified Nonintractable epilepsy without status epilepticus, unspecified epilepsy type (HCC) POTS (postural orthostatic tachycardia syndrome) Tachycardia, unspecified 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) Mild intermittent asthma without complication (HCC) Unspecified asthma Gastroparesis Gastroesophageal reflux disease, unspecified whether esophagitis present Chronic superficial gastritis without bleeding Atrophic gastritis without mention of hemorrhage PONV (postoperative nausea and vomiting) Nausea with vomiting Delayed emergence from anesthesia, subsequent encounter Fever, unspecified fever cause- Primary Rash and nonspecific skin eruption Rash and other nonspecific skin eruption Pain in joint, multiple sites Angioedema, sequela POTS (postural orthostatic tachycardia syndrome) Tachycardia, unspecified Gastroparesis Chronic fatigue syndrome Anti-TPO antibodies present Other and unspecified nonspecific immunological findings Fever in other diseases Malaise and fatigue Other malaise and fatigue Aphthous stomatitis Oral aphthae [facility]* Diagnosis Gastroesophageal reflux disease, unspecified whether esophagitis present- Primary Elevated blood pressure reading without diagnosis of hypertension Pre-op examination Preoperative examination, unspecified Mild intermittent asthma without complication (HCC) Unspecified asthma POTS (postural orthostatic tachycardia syndrome) Tachycardia, unspecified Delayed emergence from anesthesia, subsequent encounter Nonintractable epilepsy without status epilepticus, 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) Encounter for preconception consultation- Primary Other procreative management counseling and advice Gastroparesis Nonintractable epilepsy without status epilepticus, unspecified epilepsy type (HCC) POTS (postural orthostatic tachycardia syndrome) Tachycardia, unspecified Chronic fatigue syndrome History of foot fracture Personal history of traumatic fracture 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) Mild intermittent asthma without complication (HCC) Unspecified asthma Elevated blood pressure reading without diagnosis of hypertension Drug-induced constipation Other constipation Chronic superficial gastritis without bleeding Atrophic gastritis without mention of hemorrhage Liver hemangioma Hemangioma of intra-abdominal structures Pre-op evaluation- Primary Preoperative examination, unspecified Delayed emergence from anesthesia, subsequent encounter PONV (postoperative nausea and vomiting) Nausea with vomiting Nonintractable epilepsy without status epilepticus, 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) Elevated blood pressure reading without diagnosis of hypertension Liver hemangioma Hemangioma of intra-abdominal structures POTS (postural orthostatic tachycardia syndrome) Tachycardia, unspecified Mild intermittent asthma without complication (HCC) Unspecified asthma Gastroesophageal reflux disease, unspecified whether esophagitis present Gastroparesis Pre-op evaluation- Primary Preoperative examination, unspecified Nonintractable epilepsy without status epilepticus, unspecified epilepsy type (HCC) POTS (postural orthostatic tachycardia syndrome) Tachycardia, unspecified 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) Mild intermittent asthma without complication (HCC) Unspecified asthma Gastroparesis Gastroesophageal reflux disease, unspecified whether esophagitis present Chronic superficial gastritis without bleeding Atrophic gastritis without mention of hemorrhage PONV (postoperative nausea and vomiting) Nausea with vomiting Delayed emergence from anesthesia, subsequent encounter 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 Recurrent infections Unspecified infectious and parasitic diseases Angioedema, sequela Gastroparesis Muscle weakness Muscle weakness (generalized) Arthralgia of multiple sites Pain in joint, multiple sites 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) Encounter for preconception consultation- Primary Other procreative management counseling and advice Gastroparesis Nonintractable epilepsy without status epilepticus, unspecified epilepsy type (HCC) POTS (postural orthostatic tachycardia syndrome) Tachycardia, unspecified Chronic fatigue syndrome History of foot fracture Personal history of traumatic fracture 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) Mild intermittent asthma without complication (HCC) Unspecified asthma Elevated blood pressure reading without diagnosis of hypertension Drug-induced constipation Other constipation Chronic superficial gastritis without bleeding Atrophic gastritis without mention of hemorrhage Liver hemangioma Hemangioma of intra-abdominal structures Pre-op evaluation- Primary Preoperative examination, unspecified Delayed emergence from anesthesia, subsequent encounter PONV (postoperative nausea and vomiting) Nausea with vomiting Nonintractable epilepsy without status epilepticus, 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) Elevated blood pressure reading without diagnosis of hypertension Liver hemangioma Hemangioma of intra-abdominal structures POTS (postural orthostatic tachycardia syndrome) Tachycardia, unspecified Mild intermittent asthma without complication (HCC) Unspecified asthma Gastroesophageal reflux disease, unspecified whether esophagitis present Gastroparesis Pre-op evaluation- Primary Preoperative examination, unspecified Nonintractable epilepsy without status epilepticus, unspecified epilepsy type (HCC) POTS (postural orthostatic tachycardia syndrome) Tachycardia, unspecified 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) Mild intermittent asthma without complication (HCC) Unspecified asthma Gastroparesis Gastroesophageal reflux disease, unspecified whether esophagitis present Chronic superficial gastritis without bleeding Atrophic gastritis without mention of hemorrhage PONV (postoperative nausea and vomiting) Nausea with vomiting Delayed emergence from anesthesia, subsequent encounter Low serum complement C4- Primary 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) Encounter for preconception consultation- Primary Other procreative management counseling and advice Gastroparesis Nonintractable epilepsy without status epilepticus, unspecified epilepsy type (HCC) POTS (postural orthostatic tachycardia syndrome) Tachycardia, unspecified Chronic fatigue syndrome History of foot fracture Personal history of traumatic fracture 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) Mild intermittent asthma without complication (HCC) Unspecified asthma Elevated blood pressure reading without diagnosis of hypertension Drug-induced constipation Other constipation Chronic superficial gastritis without bleeding Atrophic gastritis without mention of hemorrhage Liver hemangioma Hemangioma of intra-abdominal structures Pre-op evaluation- Primary Preoperative examination, unspecified Delayed emergence from anesthesia, subsequent encounter PONV (postoperative nausea and vomiting) Nausea with vomiting Nonintractable epilepsy without status epilepticus, 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) Elevated blood pressure reading without diagnosis of hypertension Liver hemangioma Hemangioma of intra-abdominal structures POTS (postural orthostatic tachycardia syndrome) Tachycardia, unspecified Mild intermittent asthma without complication (HCC) Unspecified asthma Gastroesophageal reflux disease, unspecified whether esophagitis present Gastroparesis Pre-op evaluation- Primary Preoperative examination, unspecified Nonintractable epilepsy without status epilepticus, unspecified epilepsy type (HCC) POTS (postural orthostatic tachycardia syndrome) Tachycardia, unspecified 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) Mild intermittent asthma without complication (HCC) Unspecified asthma Gastroparesis Gastroesophageal reflux disease, unspecified whether esophagitis present Chronic superficial gastritis without bleeding Atrophic gastritis without mention of hemorrhage PONV (postoperative nausea and vomiting) Nausea with vomiting Delayed emergence from anesthesia, subsequent encounter Postural orthostatic tachycardia syndrome (POTS) Hereditary angioedema (HCC) Other deficiencies of circulating enzymes 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) Encounter for preconception consultation- Primary Other procreative management counseling and advice Gastroparesis Nonintractable epilepsy without status epilepticus, unspecified epilepsy type (HCC) POTS (postural orthostatic tachycardia syndrome) Tachycardia, unspecified Chronic fatigue syndrome History of foot fracture Personal history of traumatic fracture 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) Mild intermittent asthma without complication (HCC) Unspecified asthma Elevated blood pressure reading without diagnosis of hypertension Drug-induced constipation Other constipation Chronic superficial gastritis without bleeding Atrophic gastritis without mention of hemorrhage Liver hemangioma Hemangioma of intra-abdominal structures Pre-op evaluation- Primary Preoperative examination, unspecified Delayed emergence from anesthesia, subsequent encounter PONV (postoperative nausea and vomiting) Nausea with vomiting Nonintractable epilepsy without status epilepticus, 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) Elevated blood pressure reading without diagnosis of hypertension Liver hemangioma Hemangioma of intra-abdominal structures POTS (postural orthostatic tachycardia syndrome) Tachycardia, unspecified Mild intermittent asthma without complication (HCC) Unspecified asthma Gastroesophageal reflux disease, unspecified whether esophagitis present Gastroparesis Pre-op evaluation- Primary Preoperative examination, unspecified Nonintractable epilepsy without status epilepticus, unspecified epilepsy type (HCC) POTS (postural orthostatic tachycardia syndrome) Tachycardia, unspecified 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) Mild intermittent asthma without complication (HCC) Unspecified asthma Gastroparesis Gastroesophageal reflux disease, unspecified whether esophagitis present Chronic superficial gastritis without bleeding Atrophic gastritis without mention of hemorrhage PONV (postoperative nausea and vomiting) Nausea with vomiting Delayed emergence from anesthesia, subsequent encounter Gastroparesis- Primary Chronic idiopathic constipation Unspecified constipation 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) Encounter for preconception consultation- Primary Other procreative management counseling and advice Gastroparesis Nonintractable epilepsy without status epilepticus, unspecified epilepsy type (HCC) POTS (postural orthostatic tachycardia syndrome) Tachycardia, unspecified Chronic fatigue syndrome History of foot fracture Personal history of traumatic fracture 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) Mild intermittent asthma without complication (HCC) Unspecified asthma Elevated blood pressure reading without diagnosis of hypertension Drug-induced constipation Other constipation Chronic superficial gastritis without bleeding Atrophic gastritis without mention of hemorrhage Liver hemangioma Hemangioma of intra-abdominal structures Pre-op evaluation- Primary Preoperative examination, unspecified Delayed emergence from anesthesia, subsequent encounter PONV (postoperative nausea and vomiting) Nausea with vomiting Nonintractable epilepsy without status epilepticus, 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) Elevated blood pressure reading without diagnosis of hypertension Liver hemangioma Hemangioma of intra-abdominal structures POTS (postural orthostatic tachycardia syndrome) Tachycardia, unspecified Mild intermittent asthma without complication (HCC) Unspecified asthma Gastroesophageal reflux disease, unspecified whether esophagitis present Gastroparesis Pre-op evaluation- Primary Preoperative examination, unspecified Nonintractable epilepsy without status epilepticus, unspecified epilepsy type (HCC) POTS (postural orthostatic tachycardia syndrome) Tachycardia, unspecified 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) Mild intermittent asthma without complication (HCC) Unspecified asthma Gastroparesis Gastroesophageal reflux disease, unspecified whether esophagitis present Chronic superficial gastritis without bleeding Atrophic gastritis without mention of hemorrhage PONV (postoperative nausea and vomiting) Nausea with vomiting Delayed emergence from anesthesia, subsequent encounter Gastroparesis- Primary 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) Encounter for preconception consultation- Primary Other procreative management counseling and advice Gastroparesis Nonintractable epilepsy without status epilepticus, unspecified epilepsy type (HCC) POTS (postural orthostatic tachycardia syndrome) Tachycardia, unspecified Chronic fatigue syndrome History of foot fracture Personal history of traumatic fracture 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) Mild intermittent asthma without complication (HCC) Unspecified asthma Elevated blood pressure reading without diagnosis of hypertension Drug-induced constipation Other constipation Chronic superficial gastritis without bleeding Atrophic gastritis without mention of hemorrhage Liver hemangioma Hemangioma of intra-abdominal structures Pre-op evaluation- Primary Preoperative examination, unspecified Delayed emergence from anesthesia, subsequent encounter PONV (postoperative nausea and vomiting) Nausea with vomiting Nonintractable epilepsy without status epilepticus, 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) Elevated blood pressure reading without diagnosis of hypertension Liver hemangioma Hemangioma of intra-abdominal structures POTS (postural orthostatic tachycardia syndrome) Tachycardia, unspecified Mild intermittent asthma without complication (HCC) Unspecified asthma Gastroesophageal reflux disease, unspecified whether esophagitis present Gastroparesis Pre-op evaluation- Primary Preoperative examination, unspecified Nonintractable epilepsy without status epilepticus, unspecified epilepsy type (HCC) POTS (postural orthostatic tachycardia syndrome) Tachycardia, unspecified 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) Mild intermittent asthma without complication (HCC) Unspecified asthma Gastroparesis Gastroesophageal reflux disease, unspecified whether esophagitis present Chronic superficial gastritis without bleeding Atrophic gastritis without mention of hemorrhage PONV (postoperative nausea and vomiting) Nausea with vomiting Delayed emergence from anesthesia, subsequent encounter Fever, unspecified fever cause- Primary Rash and nonspecific skin eruption Rash and other nonspecific skin eruption Pain in joint, multiple sites 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, aphthous stomatitis, pharyngitis, adenitis (PFAPA) syndrome (HCC) Fever presenting with conditions classified elsewhere Hypermobility arthralgia Pain in joint, site unspecified CRP elevated Elevated C-reactive protein (CRP) 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) Encounter for preconception consultation- Primary Other procreative management counseling and advice Gastroparesis Nonintractable epilepsy without status epilepticus, unspecified epilepsy type (HCC) POTS (postural orthostatic tachycardia syndrome) Tachycardia, unspecified Chronic fatigue syndrome History of foot fracture Personal history of traumatic fracture 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) Mild intermittent asthma without complication (HCC) Unspecified asthma Elevated blood pressure reading without diagnosis of hypertension Drug-induced constipation Other constipation Chronic superficial gastritis without bleeding Atrophic gastritis without mention of hemorrhage Liver hemangioma Hemangioma of intra-abdominal structures Pre-op evaluation- Primary Preoperative examination, unspecified Delayed emergence from anesthesia, subsequent encounter PONV (postoperative nausea and vomiting) Nausea with vomiting Nonintractable epilepsy without status epilepticus, 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) Elevated blood pressure reading without diagnosis of hypertension Liver hemangioma Hemangioma of intra-abdominal structures POTS (postural orthostatic tachycardia syndrome) Tachycardia, unspecified Mild intermittent asthma without complication (HCC) Unspecified asthma Gastroesophageal reflux disease, unspecified whether esophagitis present Gastroparesis Pre-op evaluation- Primary Preoperative examination, unspecified Nonintractable epilepsy without status epilepticus, unspecified epilepsy type (HCC) POTS (postural orthostatic tachycardia syndrome) Tachycardia, unspecified 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) Mild intermittent asthma without complication (HCC) Unspecified asthma Gastroparesis Gastroesophageal reflux disease, unspecified whether esophagitis present Chronic superficial gastritis without bleeding Atrophic gastritis without mention of hemorrhage PONV (postoperative nausea and vomiting) Nausea with vomiting Delayed emergence from anesthesia, subsequent encounter Hypermobility arthralgia- Primary Pain in joint, site unspecified Pain in joint, multiple sites 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) Encounter for preconception consultation- Primary Other procreative management counseling and advice Gastroparesis Nonintractable epilepsy without status epilepticus, unspecified epilepsy type (HCC) POTS (postural orthostatic tachycardia syndrome) Tachycardia, unspecified Chronic fatigue syndrome History of foot fracture Personal history of traumatic fracture 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) Mild intermittent asthma without complication (HCC) Unspecified asthma Elevated blood pressure reading without diagnosis of hypertension Drug-induced constipation Other constipation Chronic superficial gastritis without bleeding Atrophic gastritis without mention of hemorrhage Liver hemangioma Hemangioma of intra-abdominal structures Pre-op evaluation- Primary Preoperative examination, unspecified Delayed emergence from anesthesia, subsequent encounter PONV (postoperative nausea and vomiting) Nausea with vomiting Nonintractable epilepsy without status epilepticus, 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) Elevated blood pressure reading without diagnosis of hypertension Liver hemangioma Hemangioma of intra-abdominal structures POTS (postural orthostatic tachycardia syndrome) Tachycardia, unspecified Mild intermittent asthma without complication (HCC) Unspecified asthma Gastroesophageal reflux disease, unspecified whether esophagitis present Gastroparesis Pre-op evaluation- Primary Preoperative examination, unspecified Nonintractable epilepsy without status epilepticus, unspecified epilepsy type (HCC) POTS (postural orthostatic tachycardia syndrome) Tachycardia, unspecified 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) Mild intermittent asthma without complication (HCC) Unspecified asthma Gastroparesis Gastroesophageal reflux disease, unspecified whether esophagitis present Chronic superficial gastritis without bleeding Atrophic gastritis without mention of hemorrhage PONV (postoperative nausea and vomiting) Nausea with vomiting Delayed emergence from anesthesia, subsequent encounter Hypermobility arthralgia- Primary Pain in joint, site unspecified Pain in joint, multiple sites 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) Encounter for preconception consultation- Primary Other procreative management counseling and advice Gastroparesis Nonintractable epilepsy without status epilepticus, unspecified epilepsy type (HCC) POTS (postural orthostatic tachycardia syndrome) Tachycardia, unspecified Chronic fatigue syndrome History of foot fracture Personal history of traumatic fracture 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) Mild intermittent asthma without complication (HCC) Unspecified asthma Elevated blood pressure reading without diagnosis of hypertension Drug-induced constipation Other constipation Chronic superficial gastritis without bleeding Atrophic gastritis without mention of hemorrhage Liver hemangioma Hemangioma of intra-abdominal structures Pre-op evaluation- Primary Preoperative examination, unspecified Delayed emergence from anesthesia, subsequent encounter PONV (postoperative nausea and vomiting) Nausea with vomiting Nonintractable epilepsy without status epilepticus, 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) Elevated blood pressure reading without diagnosis of hypertension Liver hemangioma Hemangioma of intra-abdominal structures POTS (postural orthostatic tachycardia syndrome) Tachycardia, unspecified Mild intermittent asthma without complication (HCC) Unspecified asthma Gastroesophageal reflux disease, unspecified whether esophagitis present Gastroparesis Pre-op evaluation- Primary Preoperative examination, unspecified Nonintractable epilepsy without status epilepticus, unspecified epilepsy type (HCC) POTS (postural orthostatic tachycardia syndrome) Tachycardia, unspecified 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) Mild intermittent asthma without complication (HCC) Unspecified asthma Gastroparesis Gastroesophageal reflux disease, unspecified whether esophagitis present Chronic superficial gastritis without bleeding Atrophic gastritis without mention of hemorrhage PONV (postoperative nausea and vomiting) Nausea with vomiting Delayed emergence from anesthesia, subsequent encounter Pre-operative examination- Primary Preoperative examination, unspecified Nonintractable epilepsy without status epilepticus, 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) POTS (postural orthostatic tachycardia syndrome) Tachycardia, unspecified Elevated blood pressure reading without diagnosis of hypertension Liver hemangioma Hemangioma of intra-abdominal structures Mild intermittent asthma without complication (HCC) Unspecified asthma Chronic superficial gastritis without bleeding Atrophic gastritis without mention of hemorrhage Gastroesophageal reflux disease, unspecified whether esophagitis present PONV (postoperative nausea and vomiting) Nausea with vomiting Hypermobility arthralgia Pain in joint, site unspecified Delayed emergence from anesthesia, subsequent encounter Hereditary angioedema (HCC) Other deficiencies of circulating enzymes Gastroparesis Chronic idiopathic constipation Unspecified constipation KHRIS positive Other and unspecified nonspecific immunological findings Gastroparesis- Primary * Assessment & Plan Note - Emilie Rojas APRN.CNP - 02/01/2025 1:10 PM EDT Associated Problem(s): KHRIS positive Assessment: +KHRIS +TOOL LAPPER HAND (low positive - repeat NEGATIVE) * Assessment & Plan Note - Emilie Rojas APRN.CNP - 02/01/2025 1:08 PM EDT Associated Problem(s): Hereditary angioedema (HCC) Assessment: recently dx, following allergy, Started on Orladeyo on November 04 and uses Icatibant for acute treatment of severe leg swelling, abdominal pain, and lip swelling; [facility] on 12/01/2024 * Assessment & Plan Note - Emilie Rojas APRN.CNP - 02/01/2025 1:06 PM EDT Associated Problem(s): Chronic idiopathic constipation Assessment: controlled on rx * Assessment & Plan Note - Emilie Rojas APRN.CNP - 02/01/2025 1:06 PM EDT Associated Problem(s): Gastroparesis Assessment: rx as needed * Assessment & Plan Note - Emilie Rojas APRN.CNP - 02/01/2025 12:25 PM EDT Associated Problem(s): Delayed emergence from anesthesia Assessment: hx of slow emergence, denies need for admission post- surgery unplanned in the past. * Assessment & Plan Note - Emilie Rojas APRN.CNP - 02/01/2025 12:25 PM EDT Associated Problem(s): Hypermobility arthralgia Assessment: following rheumatology Last OV 01/24/25 below: Note Details * Assessment & Plan Note - Emilie Rojas APRN.CNP - 02/01/2025 12:22 PM EDT Associated Problem(s): PONV (postoperative nausea and vomiting) Assessment: requests premedication of zofran. * Assessment & Plan Note - Emilie Rojas APRN.CNP - 02/01/2025 12:22 PM EDT Associated Problem(s): GERD (gastroesophageal reflux disease) Assessment: treated with BID pepcid. * Assessment & Plan Note - Emilie Rojas APRN.CNP - 02/01/2025 12:21 PM EDT Associated Problem(s): Chronic superficial gastritis without bleeding Assessment: managed and monitored by GI, scheduled for EGD. * Assessment & Plan Note - Emilie Rojas APRN.CNP - 02/01/2025 12:21 PM EDT Associated Problem(s): Mild intermittent asthma without complication (HCC) Assessment: denies hx of asthma. No current inhalers or treatments or respiratory symptoms. Stable. * Assessment & Plan Note - Emilie Rojas APRN.CNP - 02/01/2025 12:21 PM EDT Associated Problem(s): Liver hemangioma Assessment: Incidental finding on imaging. Following with PCP. * Assessment & Plan Note - Emilie Rojas APRN.CNP - 02/01/2025 12:21 PM EDT Associated Problem(s): Elevated blood pressure reading without diagnosis of hypertension Assessment: BP can be labile D/t POTS - on propranolol which controls this. * Assessment & Plan Note - Emilie Rojas APRN.CNP - 02/01/2025 12:21 PM EDT Associated Problem(s): POTS (postural orthostatic tachycardia syndrome) Assessment: stable on propranolol. managed and monitored by neurology. Denies recent new or worsening symptoms or syncope. Last OV below: [facility] on 12/21/2024 * Assessment & Plan Note - Emilie Rojas APRN.CNP - 02/01/2025 12:20 PM EDT Associated Problem(s): 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) Assessment: Controlled with methylphenidate. * Assessment & Plan Note - Emilie Rojas APRN.CNP - 02/01/2025 12:19 PM EDT Associated Problem(s): Epilepsy (HCC) Assessment: hx of childhood epilepsy, reports last seizure over 6 years ago, had been cleared by neurology. No long taking any anti seizure medications. 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) Encounter for preconception consultation- Primary Other procreative management counseling and advice Gastroparesis Nonintractable epilepsy without status epilepticus, unspecified epilepsy type (HCC) POTS (postural orthostatic tachycardia syndrome) Tachycardia, unspecified Chronic fatigue syndrome History of foot fracture Personal history of traumatic fracture 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) Mild intermittent asthma without complication (HCC) Unspecified asthma Elevated blood pressure reading without diagnosis of hypertension Drug-induced constipation Other constipation Chronic superficial gastritis without bleeding Atrophic gastritis without mention of hemorrhage Liver hemangioma Hemangioma of intra-abdominal structures Pre-op evaluation- Primary Preoperative examination, unspecified Delayed emergence from anesthesia, subsequent encounter PONV (postoperative nausea and vomiting) Nausea with vomiting Nonintractable epilepsy without status epilepticus, 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) Elevated blood pressure reading without diagnosis of hypertension Liver hemangioma Hemangioma of intra-abdominal structures POTS (postural orthostatic tachycardia syndrome) Tachycardia, unspecified Mild intermittent asthma without complication (HCC) Unspecified asthma Gastroesophageal reflux disease, unspecified whether esophagitis present Gastroparesis Pre-op evaluation- Primary Preoperative examination, unspecified Nonintractable epilepsy without status epilepticus, unspecified epilepsy type (HCC) POTS (postural orthostatic tachycardia syndrome) Tachycardia, unspecified 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) Mild intermittent asthma without complication (HCC) Unspecified asthma Gastroparesis Gastroesophageal reflux disease, unspecified whether esophagitis present Chronic superficial gastritis without bleeding Atrophic gastritis without mention of hemorrhage PONV (postoperative nausea and vomiting) Nausea with vomiting Delayed emergence from anesthesia, subsequent encounter Pre-operative examination- Primary Preoperative examination, unspecified Nonintractable epilepsy without status epilepticus, 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) POTS (postural orthostatic tachycardia syndrome) Tachycardia, unspecified Elevated blood pressure reading without diagnosis of hypertension Liver hemangioma Hemangioma of intra-abdominal structures Mild intermittent asthma without complication (HCC) Unspecified asthma Chronic superficial gastritis without bleeding Atrophic gastritis without mention of hemorrhage Gastroesophageal reflux disease, unspecified whether esophagitis present PONV (postoperative nausea and vomiting) Nausea with vomiting Hypermobility arthralgia Pain in joint, site unspecified Delayed emergence from anesthesia, subsequent encounter Hereditary angioedema (HCC) Other deficiencies of circulating enzymes Gastroparesis Chronic idiopathic constipation Unspecified constipation KHRIS positive Other and unspecified nonspecific immunological findings Gastroparesis- Primary [facility] Diagnosis Gastroesophageal reflux disease, unspecified whether esophagitis present- Primary Elevated blood pressure reading without diagnosis of hypertension Pre-op examination Preoperative examination, unspecified Mild intermittent asthma without complication (HCC) Unspecified asthma POTS (postural orthostatic tachycardia syndrome) Tachycardia, unspecified Delayed emergence from anesthesia, subsequent encounter Nonintractable epilepsy without status epilepticus, 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) Encounter for preconception consultation- Primary Other procreative management counseling and advice Gastroparesis Nonintractable epilepsy without status epilepticus, unspecified epilepsy type (HCC) POTS (postural orthostatic tachycardia syndrome) Tachycardia, unspecified Chronic fatigue syndrome History of foot fracture Personal history of traumatic fracture 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) Mild intermittent asthma without complication (HCC) Unspecified asthma Elevated blood pressure reading without diagnosis of hypertension Drug-induced constipation Other constipation Chronic superficial gastritis without bleeding Atrophic gastritis without mention of hemorrhage Liver hemangioma Hemangioma of intra-abdominal structures Pre-op evaluation- Primary Preoperative examination, unspecified Delayed emergence from anesthesia, subsequent encounter PONV (postoperative nausea and vomiting) Nausea with vomiting Nonintractable epilepsy without status epilepticus, 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) Elevated blood pressure reading without diagnosis of hypertension Liver hemangioma Hemangioma of intra-abdominal structures POTS (postural orthostatic tachycardia syndrome) Tachycardia, unspecified Mild intermittent asthma without complication (HCC) Unspecified asthma Gastroesophageal reflux disease, unspecified whether esophagitis present Gastroparesis Pre-op evaluation- Primary Preoperative examination, unspecified Nonintractable epilepsy without status epilepticus, unspecified epilepsy type (HCC) POTS (postural orthostatic tachycardia syndrome) Tachycardia, unspecified 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) Mild intermittent asthma without complication (HCC) Unspecified asthma Gastroparesis Gastroesophageal reflux disease, unspecified whether esophagitis present Chronic superficial gastritis without bleeding Atrophic gastritis without mention of hemorrhage PONV (postoperative nausea and vomiting) Nausea with vomiting Delayed emergence from anesthesia, subsequent encounter Pre-operative examination- Primary Preoperative examination, unspecified Nonintractable epilepsy without status epilepticus, 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) POTS (postural orthostatic tachycardia syndrome) Tachycardia, unspecified Elevated blood pressure reading without diagnosis of hypertension Liver hemangioma Hemangioma of intra-abdominal structures Mild intermittent asthma without complication (HCC) Unspecified asthma Chronic superficial gastritis without bleeding Atrophic gastritis without mention of hemorrhage Gastroesophageal reflux disease, unspecified whether esophagitis present PONV (postoperative nausea and vomiting) Nausea with vomiting Hypermobility arthralgia Pain in joint, site unspecified Delayed emergence from anesthesia, subsequent encounter Hereditary angioedema (HCC) Other deficiencies of circulating enzymes Gastroparesis Chronic idiopathic constipation Unspecified constipation KHRIS positive Other and unspecified nonspecific immunological findings Pain in joint, multiple sites- Primary Hypermobility arthralgia Pain in joint, site unspecified [facility] Onset Date Resolution Status Admit Date Yeast infection acute February [id number] 2:33pm [place] [employer] Work Phone: Evaluation note* Diagnosis Gastroesophageal reflux disease, unspecified whether esophagitis present- Primary Elevated blood pressure reading without diagnosis of hypertension Pre-op examination Preoperative examination, unspecified Mild intermittent asthma without complication (HCC) Unspecified asthma POTS (postural orthostatic tachycardia syndrome) Tachycardia, unspecified Delayed emergence from anesthesia, subsequent encounter Nonintractable epilepsy without status epilepticus, 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) Encounter for preconception consultation- Primary Other procreative management counseling and advice Gastroparesis Nonintractable epilepsy without status epilepticus, unspecified epilepsy type (HCC) POTS (postural orthostatic tachycardia syndrome) Tachycardia, unspecified Chronic fatigue syndrome History of foot fracture Personal history of traumatic fracture 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) Mild intermittent asthma without complication (HCC) Unspecified asthma Elevated blood pressure reading without diagnosis of hypertension Drug-induced constipation Other constipation Chronic superficial gastritis without bleeding Atrophic gastritis without mention of hemorrhage Liver hemangioma Hemangioma of intra-abdominal structures Pre-op evaluation- Primary Preoperative examination, unspecified Delayed emergence from anesthesia, subsequent encounter PONV (postoperative nausea and vomiting) Nausea with vomiting Nonintractable epilepsy without status epilepticus, 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) Elevated blood pressure reading without diagnosis of hypertension Liver hemangioma Hemangioma of intra-abdominal structures POTS (postural orthostatic tachycardia syndrome) Tachycardia, unspecified Mild intermittent asthma without complication (HCC) Unspecified asthma Gastroesophageal reflux disease, unspecified whether esophagitis present Gastroparesis Pre-op evaluation- Primary Preoperative examination, unspecified Nonintractable epilepsy without status epilepticus, unspecified epilepsy type (HCC) POTS (postural orthostatic tachycardia syndrome) Tachycardia, unspecified 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) Mild intermittent asthma without complication (HCC) Unspecified asthma Gastroparesis Gastroesophageal reflux disease, unspecified whether esophagitis present Chronic superficial gastritis without bleeding Atrophic gastritis without mention of hemorrhage PONV (postoperative nausea and vomiting) Nausea with vomiting Delayed emergence from anesthesia, subsequent encounter Pre-operative examination- Primary Preoperative examination, unspecified Nonintractable epilepsy without status epilepticus, 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) POTS (postural orthostatic tachycardia syndrome) Tachycardia, unspecified Elevated blood pressure reading without diagnosis of hypertension Liver hemangioma Hemangioma of intra-abdominal structures Mild intermittent asthma without complication (HCC) Unspecified asthma Chronic superficial gastritis without bleeding Atrophic gastritis without mention of hemorrhage Gastroesophageal reflux disease, unspecified whether esophagitis present PONV (postoperative nausea and vomiting) Nausea with vomiting Hypermobility arthralgia Pain in joint, site unspecified Delayed emergence from anesthesia, subsequent encounter Hereditary angioedema (HCC) Other deficiencies of circulating enzymes Gastroparesis Chronic idiopathic constipation Unspecified constipation KHRIS positive Other and unspecified nonspecific immunological findings Gastroparesis- Primary Gastroesophageal reflux disease, unspecified whether esophagitis present Chronic idiopathic constipation Unspecified constipation [facility] Diagnosis Gastroesophageal reflux disease, unspecified whether esophagitis present- Primary Elevated blood pressure reading without diagnosis of hypertension Pre-op examination Preoperative examination, unspecified Mild intermittent asthma without complication (HCC) Unspecified asthma POTS (postural orthostatic tachycardia syndrome) Tachycardia, unspecified Delayed emergence from anesthesia, subsequent encounter Nonintractable epilepsy without status epilepticus, 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) Encounter for preconception consultation- Primary Other procreative management counseling and advice Gastroparesis Nonintractable epilepsy without status epilepticus, unspecified epilepsy type (HCC) POTS (postural orthostatic tachycardia syndrome) Tachycardia, unspecified Chronic fatigue syndrome History of foot fracture Personal history of traumatic fracture 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) Mild intermittent asthma without complication (HCC) Unspecified asthma Elevated blood pressure reading without diagnosis of hypertension Drug-induced constipation Other constipation Chronic superficial gastritis without bleeding Atrophic gastritis without mention of hemorrhage Liver hemangioma Hemangioma of intra-abdominal structures Pre-op evaluation- Primary Preoperative examination, unspecified Delayed emergence from anesthesia, subsequent encounter PONV (postoperative nausea and vomiting) Nausea with vomiting Nonintractable epilepsy without status epilepticus, 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) Elevated blood pressure reading without diagnosis of hypertension Liver hemangioma Hemangioma of intra-abdominal structures POTS (postural orthostatic tachycardia syndrome) Tachycardia, unspecified Mild intermittent asthma without complication (HCC) Unspecified asthma Gastroesophageal reflux disease, unspecified whether esophagitis present Gastroparesis Pre-op evaluation- Primary Preoperative examination, unspecified Nonintractable epilepsy without status epilepticus, unspecified epilepsy type (HCC) POTS (postural orthostatic tachycardia syndrome) Tachycardia, unspecified 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) Mild intermittent asthma without complication (HCC) Unspecified asthma Gastroparesis Gastroesophageal reflux disease, unspecified whether esophagitis present Chronic superficial gastritis without bleeding Atrophic gastritis without mention of hemorrhage PONV (postoperative nausea and vomiting) Nausea with vomiting Delayed emergence from anesthesia, subsequent encounter Pre-operative examination- Primary Preoperative examination, unspecified Nonintractable epilepsy without status epilepticus, 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) POTS (postural orthostatic tachycardia syndrome) Tachycardia, unspecified Elevated blood pressure reading without diagnosis of hypertension Liver hemangioma Hemangioma of intra-abdominal structures Mild intermittent asthma without complication (HCC) Unspecified asthma Chronic superficial gastritis without bleeding Atrophic gastritis without mention of hemorrhage Gastroesophageal reflux disease, unspecified whether esophagitis present PONV (postoperative nausea and vomiting) Nausea with vomiting Hypermobility arthralgia Pain in joint, site unspecified Delayed emergence from anesthesia, subsequent encounter Hereditary angioedema (HCC) Other deficiencies of circulating enzymes Gastroparesis Chronic idiopathic constipation Unspecified constipation KHRIS positive Other and unspecified nonspecific immunological findings Pain in joint, multiple sites- Primary Hypermobility arthralgia Pain in joint, site unspecified [facility] Diagnosis Gastroesophageal reflux disease, unspecified whether esophagitis present- Primary Elevated blood pressure reading without diagnosis of hypertension Pre-op examination Preoperative examination, unspecified Mild intermittent asthma without complication (HCC) Unspecified asthma POTS (postural orthostatic tachycardia syndrome) Tachycardia, unspecified Delayed emergence from anesthesia, subsequent encounter Nonintractable epilepsy without status epilepticus, 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) Encounter for preconception consultation- Primary Other procreative management counseling and advice Gastroparesis Nonintractable epilepsy without status epilepticus, unspecified epilepsy type (HCC) POTS (postural orthostatic tachycardia syndrome) Tachycardia, unspecified Chronic fatigue syndrome History of foot fracture Personal history of traumatic fracture 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) Mild intermittent asthma without complication (HCC) Unspecified asthma Elevated blood pressure reading without diagnosis of hypertension Drug-induced constipation Other constipation Chronic superficial gastritis without bleeding Atrophic gastritis without mention of hemorrhage Liver hemangioma Hemangioma of intra-abdominal structures Pre-op evaluation- Primary Preoperative examination, unspecified Delayed emergence from anesthesia, subsequent encounter PONV (postoperative nausea and vomiting) Nausea with vomiting Nonintractable epilepsy without status epilepticus, 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) Elevated blood pressure reading without diagnosis of hypertension Liver hemangioma Hemangioma of intra-abdominal structures POTS (postural orthostatic tachycardia syndrome) Tachycardia, unspecified Mild intermittent asthma without complication (HCC) Unspecified asthma Gastroesophageal reflux disease, unspecified whether esophagitis present Gastroparesis Pre-op evaluation- Primary Preoperative examination, unspecified Nonintractable epilepsy without status epilepticus, unspecified epilepsy type (HCC) POTS (postural orthostatic tachycardia syndrome) Tachycardia, unspecified 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) Mild intermittent asthma without complication (HCC) Unspecified asthma Gastroparesis Gastroesophageal reflux disease, unspecified whether esophagitis present Chronic superficial gastritis without bleeding Atrophic gastritis without mention of hemorrhage PONV (postoperative nausea and vomiting) Nausea with vomiting Delayed emergence from anesthesia, subsequent encounter Pre-operative examination- Primary Preoperative examination, unspecified Nonintractable epilepsy without status epilepticus, 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) POTS (postural orthostatic tachycardia syndrome) Tachycardia, unspecified Elevated blood pressure reading without diagnosis of hypertension Liver hemangioma Hemangioma of intra-abdominal structures Mild intermittent asthma without complication (HCC) Unspecified asthma Chronic superficial gastritis without bleeding Atrophic gastritis without mention of hemorrhage Gastroesophageal reflux disease, unspecified whether esophagitis present PONV (postoperative nausea and vomiting) Nausea with vomiting Hypermobility arthralgia Pain in joint, site unspecified Delayed emergence from anesthesia, subsequent encounter Hereditary angioedema (HCC) Other deficiencies of circulating enzymes Gastroparesis Chronic idiopathic constipation Unspecified constipation KHRIS positive Other and unspecified nonspecific immunological findings Gastroparesis- Primary 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) Encounter for preconception consultation- Primary Other procreative management counseling and advice Gastroparesis Nonintractable epilepsy without status epilepticus, unspecified epilepsy type (HCC) POTS (postural orthostatic tachycardia syndrome) Tachycardia, unspecified Chronic fatigue syndrome History of foot fracture Personal history of traumatic fracture 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) Mild intermittent asthma without complication (HCC) Unspecified asthma Elevated blood pressure reading without diagnosis of hypertension Drug-induced constipation Other constipation Chronic superficial gastritis without bleeding Atrophic gastritis without mention of hemorrhage Liver hemangioma Hemangioma of intra-abdominal structures Pre-op evaluation- Primary Preoperative examination, unspecified Delayed emergence from anesthesia, subsequent encounter PONV (postoperative nausea and vomiting) Nausea with vomiting Nonintractable epilepsy without status epilepticus, 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) Elevated blood pressure reading without diagnosis of hypertension Liver hemangioma Hemangioma of intra-abdominal structures POTS (postural orthostatic tachycardia syndrome) Tachycardia, unspecified Mild intermittent asthma without complication (HCC) Unspecified asthma Gastroesophageal reflux disease, unspecified whether esophagitis present Gastroparesis Pre-op evaluation- Primary Preoperative examination, unspecified Nonintractable epilepsy without status epilepticus, unspecified epilepsy type (HCC) POTS (postural orthostatic tachycardia syndrome) Tachycardia, unspecified 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) Mild intermittent asthma without complication (HCC) Unspecified asthma Gastroparesis Gastroesophageal reflux disease, unspecified whether esophagitis present Chronic superficial gastritis without bleeding Atrophic gastritis without mention of hemorrhage PONV (postoperative nausea and vomiting) Nausea with vomiting Delayed emergence from anesthesia, subsequent encounter Pre-operative examination- Primary Preoperative examination, unspecified Nonintractable epilepsy without status epilepticus, 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) POTS (postural orthostatic tachycardia syndrome) Tachycardia, unspecified Elevated blood pressure reading without diagnosis of hypertension Liver hemangioma Hemangioma of intra-abdominal structures Mild intermittent asthma without complication (HCC) Unspecified asthma Chronic superficial gastritis without bleeding Atrophic gastritis without mention of hemorrhage Gastroesophageal reflux disease, unspecified whether esophagitis present PONV (postoperative nausea and vomiting) Nausea with vomiting Hypermobility arthralgia Pain in joint, site unspecified Delayed emergence from anesthesia, subsequent encounter Hereditary angioedema (HCC) Other deficiencies of circulating enzymes Gastroparesis Chronic idiopathic constipation Unspecified constipation KHRIS positive Other and unspecified nonspecific immunological findings 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 Elevated LFTs Other abnormal blood chemistry Hepatic hemangioma Hemangioma of intra-abdominal structures 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) Encounter for preconception consultation- Primary Other procreative management counseling and advice Gastroparesis Nonintractable epilepsy without status epilepticus, unspecified epilepsy type (HCC) POTS (postural orthostatic tachycardia syndrome) Tachycardia, unspecified Chronic fatigue syndrome History of foot fracture Personal history of traumatic fracture 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) Mild intermittent asthma without complication (HCC) Unspecified asthma Elevated blood pressure reading without diagnosis of hypertension Drug-induced constipation Other constipation Chronic superficial gastritis without bleeding Atrophic gastritis without mention of hemorrhage Liver hemangioma Hemangioma of intra-abdominal structures Pre-op evaluation- Primary Preoperative examination, unspecified Delayed emergence from anesthesia, subsequent encounter PONV (postoperative nausea and vomiting) Nausea with vomiting Nonintractable epilepsy without status epilepticus, 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) Elevated blood pressure reading without diagnosis of hypertension Liver hemangioma Hemangioma of intra-abdominal structures POTS (postural orthostatic tachycardia syndrome) Tachycardia, unspecified Mild intermittent asthma without complication (HCC) Unspecified asthma Gastroesophageal reflux disease, unspecified whether esophagitis present Gastroparesis Pre-op evaluation- Primary Preoperative examination, unspecified Nonintractable epilepsy without status epilepticus, unspecified epilepsy type (HCC) POTS (postural orthostatic tachycardia syndrome) Tachycardia, unspecified 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) Mild intermittent asthma without complication (HCC) Unspecified asthma Gastroparesis Gastroesophageal reflux disease, unspecified whether esophagitis present Chronic superficial gastritis without bleeding Atrophic gastritis without mention of hemorrhage PONV (postoperative nausea and vomiting) Nausea with vomiting Delayed emergence from anesthesia, subsequent encounter Pre-operative examination- Primary Preoperative examination, unspecified Nonintractable epilepsy without status epilepticus, 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) POTS (postural orthostatic tachycardia syndrome) Tachycardia, unspecified Elevated blood pressure reading without diagnosis of hypertension Liver hemangioma Hemangioma of intra-abdominal structures Mild intermittent asthma without complication (HCC) Unspecified asthma Chronic superficial gastritis without bleeding Atrophic gastritis without mention of hemorrhage Gastroesophageal reflux disease, unspecified whether esophagitis present PONV (postoperative nausea and vomiting) Nausea with vomiting Hypermobility arthralgia Pain in joint, site unspecified Delayed emergence from anesthesia, subsequent encounter Hereditary angioedema (HCC) Other deficiencies of circulating enzymes Gastroparesis Chronic idiopathic constipation Unspecified constipation KHRIS positive Other and unspecified nonspecific immunological findings Gastroesophageal reflux disease, unspecified whether esophagitis present- Primary PONV (postoperative nausea and vomiting) Nausea with vomiting Intractable nausea and vomiting Persistent vomiting Gastroparesis Chronic idiopathic constipation Unspecified constipation Chronic superficial gastritis without bleeding Atrophic gastritis without mention of hemorrhage Chronic abdominal pain Abdominal pain, unspecified site Hereditary angioedema (HCC) Other deficiencies of circulating enzymes Tarsal coalition Congenital anomalies of foot, 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 Pain in joint, site unspecified Delayed emergence from anesthesia, subsequent encounter KHRIS positive Other and unspecified nonspecific immunological findings POTS (postural orthostatic tachycardia syndrome) Tachycardia, unspecified 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) History of epilepsy Personal history of other disorders of nervous system and sense organs Liver hemangioma Hemangioma of intra-abdominal structures Elevated blood pressure reading without diagnosis of hypertension 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) Encounter for preconception consultation- Primary Other procreative management counseling and advice Gastroparesis Nonintractable epilepsy without status epilepticus, unspecified epilepsy type (HCC) POTS (postural orthostatic tachycardia syndrome) Tachycardia, unspecified Chronic fatigue syndrome History of foot fracture Personal history of traumatic fracture 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) Mild intermittent asthma without complication (HCC) Unspecified asthma Elevated blood pressure reading without diagnosis of hypertension Drug-induced constipation Other constipation Chronic superficial gastritis without bleeding Atrophic gastritis without mention of hemorrhage Liver hemangioma Hemangioma of intra-abdominal structures Pre-op evaluation- Primary Preoperative examination, unspecified Delayed emergence from anesthesia, subsequent encounter PONV (postoperative nausea and vomiting) Nausea with vomiting Nonintractable epilepsy without status epilepticus, 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) Elevated blood pressure reading without diagnosis of hypertension Liver hemangioma Hemangioma of intra-abdominal structures POTS (postural orthostatic tachycardia syndrome) Tachycardia, unspecified Mild intermittent asthma without complication (HCC) Unspecified asthma Gastroesophageal reflux disease, unspecified whether esophagitis present Gastroparesis Pre-op evaluation- Primary Preoperative examination, unspecified Nonintractable epilepsy without status epilepticus, unspecified epilepsy type (HCC) POTS (postural orthostatic tachycardia syndrome) Tachycardia, unspecified 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) Mild intermittent asthma without complication (HCC) Unspecified asthma Gastroparesis Gastroesophageal reflux disease, unspecified whether esophagitis present Chronic superficial gastritis without bleeding Atrophic gastritis without mention of hemorrhage PONV (postoperative nausea and vomiting) Nausea with vomiting Delayed emergence from anesthesia, subsequent encounter Pre-operative examination- Primary Preoperative examination, unspecified Nonintractable epilepsy without status epilepticus, 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) POTS (postural orthostatic tachycardia syndrome) Tachycardia, unspecified Elevated blood pressure reading without diagnosis of hypertension Liver hemangioma Hemangioma of intra-abdominal structures Mild intermittent asthma without complication (HCC) Unspecified asthma Chronic superficial gastritis without bleeding Atrophic gastritis without mention of hemorrhage Gastroesophageal reflux disease, unspecified whether esophagitis present PONV (postoperative nausea and vomiting) Nausea with vomiting Hypermobility arthralgia Pain in joint, site unspecified Delayed emergence from anesthesia, subsequent encounter Hereditary angioedema (HCC) Other deficiencies of circulating enzymes Gastroparesis Chronic idiopathic constipation Unspecified constipation KHRIS positive Other and unspecified nonspecific immunological findings H. pylori infection- Primary Helicobacter pylori (H. 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 Slow transit constipation [facility]astroparesis [facility] Diagnosis Gastroesophageal reflux disease, unspecified whether esophagitis present- Primary Elevated blood pressure reading without diagnosis of hypertension Pre-op examination Preoperative examination, unspecified Mild intermittent asthma without complication (HCC) Unspecified asthma POTS (postural orthostatic tachycardia syndrome) Tachycardia, unspecified Delayed emergence from anesthesia, subsequent encounter Nonintractable epilepsy without status epilepticus, 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) Encounter for preconception consultation- Primary Other procreative management counseling and advice Gastroparesis Nonintractable epilepsy without status epilepticus, unspecified epilepsy type (HCC) POTS (postural orthostatic tachycardia syndrome) Tachycardia, unspecified Chronic fatigue syndrome History of foot fracture Personal history of traumatic fracture 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) Mild intermittent asthma without complication (HCC) Unspecified asthma Elevated blood pressure reading without diagnosis of hypertension Drug-induced constipation Other constipation Chronic superficial gastritis without bleeding Atrophic gastritis without mention of hemorrhage Liver hemangioma Hemangioma of intra-abdominal structures Pre-op evaluation- Primary Preoperative examination, unspecified Delayed emergence from anesthesia, subsequent encounter PONV (postoperative nausea and vomiting) Nausea with vomiting Nonintractable epilepsy without status epilepticus, 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) Elevated blood pressure reading without diagnosis of hypertension Liver hemangioma Hemangioma of intra-abdominal structures POTS (postural orthostatic tachycardia syndrome) Tachycardia, unspecified Mild intermittent asthma without complication (HCC) Unspecified asthma Gastroesophageal reflux disease, unspecified whether esophagitis present Gastroparesis Pre-op evaluation- Primary Preoperative examination, unspecified Nonintractable epilepsy without status epilepticus, unspecified epilepsy type (HCC) POTS (postural orthostatic tachycardia syndrome) Tachycardia, unspecified 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) Mild intermittent asthma without complication (HCC) Unspecified asthma Gastroparesis Gastroesophageal reflux disease, unspecified whether esophagitis present Chronic superficial gastritis without bleeding Atrophic gastritis without mention of hemorrhage PONV (postoperative nausea and vomiting) Nausea with vomiting Delayed emergence from anesthesia, subsequent encounter Pre-operative examination- Primary Preoperative examination, unspecified Nonintractable epilepsy without status epilepticus, 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) POTS (postural orthostatic tachycardia syndrome) Tachycardia, unspecified Elevated blood pressure reading without diagnosis of hypertension Liver hemangioma Hemangioma of intra-abdominal structures Mild intermittent asthma without complication (HCC) Unspecified asthma Chronic superficial gastritis without bleeding Atrophic gastritis without mention of hemorrhage Gastroesophageal reflux disease, unspecified whether esophagitis present PONV (postoperative nausea and vomiting) Nausea with vomiting Hypermobility arthralgia Pain in joint, site unspecified Delayed emergence from anesthesia, subsequent encounter Hereditary angioedema (HCC) Other deficiencies of circulating enzymes Gastroparesis Chronic idiopathic constipation Unspecified constipation KHRIS positive Other and unspecified nonspecific immunological findings Pain in joint, multiple sites- Primary Hypermobility arthralgia Pain in joint, site unspecified Gastroparesis- Primary 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) Encounter for preconception consultation- Primary Other procreative management counseling and advice Gastroparesis Nonintractable epilepsy without status epilepticus, unspecified epilepsy type (HCC) POTS (postural orthostatic tachycardia syndrome) Tachycardia, unspecified Chronic fatigue syndrome History of foot fracture Personal history of traumatic fracture 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) Mild intermittent asthma without complication (HCC) Unspecified asthma Elevated blood pressure reading without diagnosis of hypertension Drug-induced constipation Other constipation Chronic superficial gastritis without bleeding Atrophic gastritis without mention of hemorrhage Liver hemangioma Hemangioma of intra-abdominal structures Pre-op evaluation- Primary Preoperative examination, unspecified Delayed emergence from anesthesia, subsequent encounter PONV (postoperative nausea and vomiting) Nausea with vomiting Nonintractable epilepsy without status epilepticus, 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) Elevated blood pressure reading without diagnosis of hypertension Liver hemangioma Hemangioma of intra-abdominal structures POTS (postural orthostatic tachycardia syndrome) Tachycardia, unspecified Mild intermittent asthma without complication (HCC) Unspecified asthma Gastroesophageal reflux disease, unspecified whether esophagitis present Gastroparesis Pre-op evaluation- Primary Preoperative examination, unspecified Nonintractable epilepsy without status epilepticus, unspecified epilepsy type (HCC) POTS (postural orthostatic tachycardia syndrome) Tachycardia, unspecified 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) Mild intermittent asthma without complication (HCC) Unspecified asthma Gastroparesis Gastroesophageal reflux disease, unspecified whether esophagitis present Chronic superficial gastritis without bleeding Atrophic gastritis without mention of hemorrhage PONV (postoperative nausea and vomiting) Nausea with vomiting Delayed emergence from anesthesia, subsequent encounter Pre-operative examination- Primary Preoperative examination, unspecified Nonintractable epilepsy without status epilepticus, 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) POTS (postural orthostatic tachycardia syndrome) Tachycardia, unspecified Elevated blood pressure reading without diagnosis of hypertension Liver hemangioma Hemangioma of intra-abdominal structures Mild intermittent asthma without complication (HCC) Unspecified asthma Chronic superficial gastritis without bleeding Atrophic gastritis without mention of hemorrhage Gastroesophageal reflux disease, unspecified whether esophagitis present PONV (postoperative nausea and vomiting) Nausea with vomiting Hypermobility arthralgia Pain in joint, site unspecified Delayed emergence from anesthesia, subsequent encounter Hereditary angioedema (HCC) Other deficiencies of circulating enzymes Gastroparesis Chronic idiopathic constipation Unspecified constipation KHRIS positive Other and unspecified nonspecific immunological findings Gastroparesis- Primary Epigastric pain Abdominal pain, epigastric Gastroparesis- Primary documented in this encounter [facility] Discharge instructions Additional Instructions Your blood and urine tests are normal. I recommend you follow-up with your specialists. Return if symptoms worsen like if you are unable to keep down fluids, worsening abdominal pain, or you develop bloody bowel movements.[facility] Work Phone: Reason for referral (narrative)* Diagnostic Procedure Only (Routine) - Pending Review Specialty Diagnoses / Procedures Referred By Contac t Referred To Contact XR IMAGING Diagnoses Acquired mallet toe, right Bilateral foot pain Procedures XR FOOT GENERAL 3V AP/LAT/OBL RIGHT RADEX FOOT COMPLETE MINIMUM 3 VIEWS Clifford Valenzuela DPM [address] [place] [id number] Xr Imaging Referral ID Status Reason Start Date Expiration Date Visits Requested Visits Authorized [id number] Pending Review Auto-Generat ed Referral 10/10/2021 11/08/2022 1 1 * Diagnostic Procedure Only (Routine) - Pending Review Specialty Diagnoses / Procedures Referred By Contac t Referred To Contact XR IMAGING Diagnoses Acquired mallet toe, right Bilateral foot pain Procedures XR FOOT GENERAL 3V AP/LAT/OBL LEFT RADEX FOOT COMPLETE MINIMUM 3 VIEWS Clifford Valenzuela DPM [address] [place] [id number] Xr Imaging Referral ID Status Reason Start Date Expiration Date Visits Requested Visits Authorized [id number] Pending Review Auto-Generat ed Referral 10/10/2021 11/08/2022 1 1 [facility] for referral (narrative)* Diagnostic Procedure Only (Routine) - Pending Review Specialty Diagnoses / Procedures Referred By Contac t Referred To Contact XR IMAGING Diagnoses Post-operative state Procedures XR FOOT GENERAL 3V AP/LAT/OBL LEFT RADEX FOOT COMPLETE MINIMUM 3 VIEWS Clifford Valenzuela DPM [address] [place] [id number] Xr Imaging Referral ID Status Reason Start Date Expiration Date Visits Requested Visits Authorized [id number] Pending Review Auto-Generat ed Referral 06/10/2022 07/05/2023 1 1 [facility] for referral (narrative)* Diagnostic Procedure Only (Routine) - Pending Review Specialty Diagnoses / Procedures Referred By Contac t Referred To Contact XR IMAGING Diagnoses Post-operative state Procedures XR FOOT GENERAL 3V AP/LAT/OBL RIGHT RADEX FOOT COMPLETE MINIMUM 3 VIEWS Clifford Valenzuela DPM [address] [place] [id number] Xr Imaging Referral ID Status Reason Start Date Expiration Date Visits Requested Visits Authorized [id number] Pending Review Auto-Generat ed Referral 12/04/2022 01/03/2024 1 1 [facility] for referral (narrative)* Diagnostic Procedure Only (Routine) - Pending Review Specialty Diagnoses / Procedures Referred By Contac t Referred To Contact XR IMAGING Diagnoses Post-operative state Acquired mallet toe, right Procedures XR FOOT GENERAL 3V AP/LAT/OBL RIGHT RADEX FOOT COMPLETE MINIMUM 3 VIEWS Clifford Valenzuela DPM [address] [place] [address] Xr Imaging Referral ID Status Reason Start Date Expiration Date Visits Requested Visits Authorized [id number] Pending Review Auto-Generat ed Referral 01/18/2023 02/14/2024 1 1 [facility] for referral (narrative)* Diagnostic Procedure Only (Routine) - Pending Review Specialty Diagnoses / Procedures Referred By Contac t Referred To Contact XR IMAGING Diagnoses Nausea Epigastric pain Procedures XR ABDOMEN 2V ROUTINE SUPINE W UPRIGHT/DECUB/CTL RADIOLOGIC EXAM ABDOMEN 2 VIEWS Bernie Martines MD [address] [place] [address] Xr Imaging [facility] Referral ID Status Reason Start Date Expiration Date Visits Requested Visits Authorized [id number] Pending Review Auto-Generat ed Referral 11/12/2023 12/11/2024 1 1 * Diagnostic Procedure Only (Routine) - Authorized Specialty Diagnoses / Procedures Referred By Contac t Referred To Contact MOLECULAR & FUNCTIONAL IMAGING Diagnoses Nausea Procedures NM GASTRIC EMPTYING SOLID GASTRIC EMPTYING STUDY Bernie Martines MD [address] [place] [address] Molecular [facility] Functional Imaging [address] [place] [address] Referral ID Status Reason Start Date Expiration Date Visits Requested Visits Authorized [id number] Authorized Auto-Generat ed Referral 11/12/2023 12/11/2024 1 1 [facility] for referral (narrative)* Diagnostic Procedure Only (Routine) - Closed Specialty Diagnoses / Procedures Referred By Chaz maxwell Referred To Contact XR IMAGING Diagnoses Nausea Epigastric pain Procedures XR ABDOMEN 2V ROUTINE SUPINE W UPRIGHT/DECUB/CTL RADIOLOGIC EXAM ABDOMEN 2 VIEWS Bernie Martines MD [address] [facility] [place] [phone] Xr Imaging [facility] Referral ID Status Reason Start Date Expiration Date V isits Requested Visits Authorized [id number] Closed Auto-Generate d Referral 11/12/2023 12/11/2024 1 1 [facility] for referral (narrative)* Outpatient Procedure (Routine) - Authorized Specialty Diagnoses / Procedures Referred By Chaz maxwell Referred To Contact [facility] Diagnoses Aphthous ulcer of mouth Procedures COLONOSCOPY DIAGNOSTIC COLONOSCOPY FLX DX W/COLLJ SPEC WHEN PFRMD Bernie Martines MD [address] [place] [address] [facility] Disease [place] [id number] Referral ID Status Reason Start Date Expiration Date Visits Requested Visits Authorized [id number] Authorized Auto-Generat ed Referral 02/19/2024 02/18/2025 1 1 * Outpatient Procedure (Routine) - Authorized Specialty Diagnoses / Procedures Referred By Chaz maxwell Referred To Contact [facility] Diagnoses Aphthous ulcer of mouth H. pylori infection Procedures EGD DIAGNOSTIC ESOPHAGOGASTRODUODENOSC OPY TRANSORAL DIAGNOSTIC Bernie Martines MD [address] [place] [address] [facility] [place] [address] [place] [address] Referral ID Status Reason Start Date Expiration Date Visits Requested Visits Authorized [id number] Authorized Auto-Generat ed Referral 02/19/2024 02/18/2025 1 1 [facility] for referral (narrative)* Outpatient Procedure (Routine) - New Request Specialty Diagnoses / Procedures Referred By Fernieac t Referred To Contact [facility] Diagnoses Gastroparesis IBD (inflammatory bowel disease) Procedures EGD - THERAPEUTIC, EUS, OR TUBE INTERVENTIONS ESOPHAGOGASTRODUODENOSC OPY TRANSORAL DIAGNOSTIC Dustin Tamayo DO [address] [place] [address] [facility] [place] [address] [place] [id number] Referral ID Status Reason Start Date Expiration Date Visits Requested Visits Authorized [id number] New Request Auto-Generat ed Referral 03/01/2024 03/01/2025 1 1 * Medication Prior Authorization - Closed Specialty Diagnoses / Procedures Referred By Chaz maxwell Referred To Contact Diagnoses Irritable bowel syndrome with constipation Dustin Tamayo DO [address] [employer] [place] [address] Referral ID Status Reason Start Date Expiration Date Visits Re quested Visits Authorized [id number] Closed 1 1 [facility] for referral (narrative)* Diagnostic Procedure Only (Routine) - New Request Specialty Diagnoses / Procedures Referred By Chaz t Referred To Contact MOLECULAR & FUNCTIONAL IMAGING Diagnoses Malignant carcinoid tumor, unspecified site (HCC) Procedures NM PET/CT NEUROENDOCRINE WHOLE BODY IMAGING PET IMAGING CT ATTENUATION SKULL BASE MID-THIGH Bernie Martines MD [address] [place] [address] Molecular [facility] [address] [place] [id number] Referral ID Status Reason Start Date Expiration Date Visits Requested Visits Authorized [id number] New Request Auto-Generat ed Referral 03/22/2024 04/21/2025 1 1 [facility] Outpatient Procedure (Routine) - Closed Specialty Diagnoses / Procedures Referred By Fernieac t Referred To Contact [facility] Diagnoses Gastroparesis IBD (inflammatory bowel disease) Procedures EGD - THERAPEUTIC, EUS, OR TUBE INTERVENTIONS ESOPHAGOGASTRODUODENOSC OPY TRANSORAL DIAGNOSTIC Dustin Tamayo DO [address] [place] [address] [address] Referral ID Status Reason Start Date Expiration Date V isits Requested Visits Authorized [id number] Closed Auto-Generate d Referral 03/01/2024 03/01/2025 1 1 [facility] for referral (narrative)* Outpatient Procedure (Routine) - New Request Specialty Diagnoses / Procedures Referred By Chaz t Referred To Contact [facility] Diagnoses Crohn's disease of colon without complication (HCC) Procedures CAPSULE ENDOSCOPY SMALL BOWEL GI TRC IMG INTRALUMINAL ESOPHAGUS-ILEUM W/I&R Dustin Tamayo DO [address] [place] [address] [address] Referral ID Status Reason Start Date Expiration Date Visits Requested Visits Authorized [id number] New Request Auto-Generat ed Referral 04/13/2024 04/13/2025 1 1 [facility] Diagnostic Procedure Only (Routine) - Closed Specialty Diagnoses / Procedures Referred By Contac t Referred To Contact MOLECULAR & FUNCTIONAL IMAGING Diagnoses Malignant carcinoid tumor, unspecified site (HCC) Procedures NM PET/CT NEUROENDOCRINE WHOLE BODY IMAGING PET IMAGING CT ATTENUATION SKULL BASE MID-THIGH GALLIUM [place] Bernie Martines MD [address] [place] [address] [facility] [address] [place] [phone] Referral ID Status Reason Start Date Expiration Date V isits Requested Visits Authorized [id number] Closed Auto-Generate d Referral 03/29/2024 06/22/2024 1 1 [facility] for referral (narrative)* Outpatient Procedure (Routine) - Closed Specialty Diagnoses / Procedures Referred By Chaz t Referred To Contact [facility] Diagnoses Aphthous ulcer of mouth Procedures COLONOSCOPY DIAGNOSTIC COLONOSCOPY FLX DX W/COLLJ SPEC WHEN PFRMBernie Morelos MD [address] [place] [address] [facility] [address] [address] Referral ID Status Reason Start Date Expiration Date V isits Requested Visits Authorized [id number] Closed Auto-Generate d Referral OON/Self Pay Override 02/19/2024 02/18/2025 1 1 [facility] for referral (narrative)No reason for referral information availableWSt. [facility] Work [facility]: [facility] Narrative* Diagnostic Procedure Only (Routine) - Closed Specialty Diagnoses / Procedures Referred By Chaz maxwell Referred To Contact XR IMAGING Diagnoses Nausea Epigastric pain Procedures XR ABDOMEN 2V ROUTINE SUPINE W UPRIGHT/DECUB/CTL RADIOLOGIC EXAM ABDOMEN 2 VIEWS Bernie Martines MD [address] [place] [address] [place] [id number] Referral ID Status Reason Start Date Expiration Date V isits Requested Visits Authorized [id number] Closed Auto-Generate d Referral 11/12/2023 12/11/2024 1 1 [facility] for visit Narrative* Outpatient Procedure (Routine) - Closed Specialty Diagnoses / Procedures Referred By Chaz maxwell Referred To Contact [facility] Diagnoses Gastroparesis IBD (inflammatory bowel disease) Procedures EGD - THERAPEUTIC, EUS, OR TUBE INTERVENTIONS ESOPHAGOGASTRODUODENOSC OPY TRANSORAL DIAGNOSTIC Dustin Tamayo DO [facility] [address] [place] [address] [address] Referral ID Status Reason Start Date Expiration Date V isits Requested Visits Authorized [id number] Closed Auto-Generate d Referral 03/01/2024 03/01/2025 1 1 [facility] for visit Narrative* Diagnostic Procedure Only (Routine) - Closed Specialty Diagnoses / Procedures Referred By Chaz t Referred To Contact MOLECULAR & FUNCTIONAL IMAGING Diagnoses Malignant carcinoid tumor, unspecified site (HCC) Procedures NM PET/CT NEUROENDOCRINE WHOLE BODY IMAGING PET IMAGING CT ATTENUATION SKULL BASE MID-THIGH [place]IUM GA-68 [place] [address] [place] [id number] [facility] [address] [place] [address] Referral ID Status Reason Start Date Expiration Date V isits Requested Visits Authorized [id number] Closed Auto-Generate d Referral 03/29/2024 06/22/2024 1 1 [facility] for visit Narrative* Outpatient Procedure (Routine) - Closed Specialty Diagnoses / Procedures Referred By Chaz t Referred To Contact [facility] Diagnoses Aphthous ulcer of mouth Procedures COLONOSCOPY DIAGNOSTIC COLONOSCOPY FLX DX W/COLLJ SPEC WHEN PFRMD Bernie Martines MD [address] [place] [address] [address] Referral ID Status Reason Start Date Expiration Date V isits Requested Visits Authorized [id number] Closed Auto-Generate d Referral OON/Self Pay Override 02/19/2024 02/18/2025 1 1 [facility] for visit Narrative* Outpatient Procedure (Routine) - Closed Specialty Diagnoses / Procedures Referred By Contac t Referred To Contact [facility] Diagnoses Gastroparesis Procedures EGD - THERAPEUTIC, EUS, OR TUBE INTERVENTIONS EGD BALLOON DILATION ESOPHAGUS <30 MM DIAM Anderson Barker, DO [facility] [place] [address] Phone: tel: fax: [facility] [address] [place] [address] Referral ID Status Reason Start Date Expiration Date V isits Requested Visits Authorized [id number] Closed Auto-Generate d Referral 01/13/2025 01/12/2026 1 1 [facility] Summary Purpose Family History No Family History Records Found Relationship Condition Age at Onset Recorded Date/T shital Not Specified Anxiety Unknown Hypertension Unknown Asthma Unknown Relationship Condition Age at Onset Recorded Date/T shital Not Specified Anxiety Unknown Hypertension Unknown Asthma Unknown father Migraine headache Unknown daughter Migraine headache Unknown mother Migraine headache Unknown Relationship Condition Age at Onset Recorded Date/T shital Not Specified Anxiety Unknown Hypertension Unknown Asthma Unknown father Migraine headache Unknown mother Migraine headache Unknown Advance Directives No Advanced Directives Records Found Date Activated Date Inactivated Comments 02/02/2024 12:30 PM 02/06/2024 1:34 PM Question Answer Comments Full Code Order Discussed With: Discussion Not M edically Appropriate Documents on File Type Date Recorded 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 Advance Directive(s) Documents on File Type Date Recorded 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 Advance Directive(s) Advance Directive Response Recorded Date/ Time Living Will No May 09 5:38pm Power of Adult Secondary Education Instructor No May 09, 2021 5:38pm Advance Directive Response Recorded Date/ Time Living Will No May 09 4:38pm Power of Adult Secondary Education Instructor No May 09, 2021 4:38pm Advance Directive Response Recorded Date/ Time Living Will No June 09 8:21am Power of Adult Secondary Education Instructor No June 09, 2023 8:21am Advance Directive Response Recorded Date/ Time Living Will No August 27 9:26pm Power of Adult Secondary Education Instructor No August 27, 2023 9:26pm Advance Directive Response Recorded Date/ Time Living Will No September 12, 2023 11:36am Power of Adult Secondary Education Instructor No September 11 11:36am Advance Directive Response Recorded Date/ Time Living Will No September 12, 2023 12:36pm Power of Adult Secondary Education Instructor No September 11 12:36pm Date Activated Date Inactivated Comments 02/02/2024 12:30 PM Date Activated Date Inactivated Comments 02/02/2024 12:30 PM 02/06/2024 1:34 PM Question Answer Comments Full Code Order Discussed With: Discussion Not M edically Appropriate Date Activated Date Inactivated Comments 08/27/2024 4:23 PM Question Answer Comments Full Code Order Discussed With: Patient Date Activated Date Inactivated Comments 02/02/2024 12:30 PM 02/06/2024 1:34 PM Question Answer Comments Full Code Order Discussed With: Discussion Not M edically Appropriate Date Activated Date Inactivated Comments 08/27/2024 4:23 PM 09/02/2024 6:36 PM Question Answer Comments Full Code Order Discussed With: Patient Date Activated Date Inactivated Comments 02/02/2024 12:30 PM 02/06/2024 1:34 PM Question Answer Comments Full Code Order Discussed With: Discussion Not M edically Appropriate Date Activated Date Inactivated Comments 08/27/2024 4:23 PM 09/02/2024 6:36 PM Advance Directive Response Recorded Date/ Time Living Will No September 12, 2023 12:36pm Do you have a Healthcare Power of Adult Secondary Education Instructor? No September 12, 2023 12:36pm Advance Directive Response Recorded Date/ Time Living Will No September 12, 2023 12:36pm Do you have a Healthcare Power of Adult Secondary Education Instructor? No September 12, 2023 12:36pm Do you have a Healthcare Power of Adult Secondary Education Instructor? No November 13, 2024 9:13pm Advance Directive Response Recorded Date/ Time Do you have a Healthcare Power of Adult Secondary Education Instructor? No November 13, 2024 9:13pm Chief Complaint Chief Complaint Description Start Date [...] Pcp Eileen Benitez Faisal Note Recipients: Eileen Nair MD Quereshy, Faisal, MD Discharge: Summary: Admission Date: .30-Dec-2019 13:50:00 Discharge Date: 31-Dec-2019 Attending Physician at Discharge: Petar Sorensen Admission Reason: Subperiosteal Abscess Final Discharge Diagnoses: Subperiosteal abscess of jaw Procedures: none Condition at Discharge: Satisfactory Disposition at Discharge: .Home Vital Signs: T PRBPSpO2 [id number]/7196% Date/Time12/30 16: 16: 16: 16: 16:13 Range(36.6C [...] 2 minutes., Recovery or Phase I (only) Chief Complaint and Reason for Visit Chief Complaint SP Chief Complaint GERD PALPITATIONS abd pain, n/v Chief Complaint PALPITATIONS abd pain, n/v E ORDERS & PAPER/ 2 ORDERING DOCTORS Chief Complaint PALPITATIONS abd pain, n/v E ORDERS & PAPER/ 2 ORDERING DOCTORS E-ORDER CONSTIPATION E ORDER Chief Complaint PALPITATIONS abd pain, n/v E ORDERS & PAPER/ 2 ORDERING DOCTORS E-ORDER CONSTIPATION E ORDER abd pain Chief Complaint PALPITATIONS abd pain, n/v E ORDERS & PAPER/ 2 ORDERING DOCTORS E-ORDER CONSTIPATION E ORDER abd pain R10.9 Unspecified abdominal pain Chief Complaint PALPITATIONS abd pain, n/v E ORDERS & PAPER/ 2 ORDERING DOCTORS E-ORDER CONSTIPATION E ORDER abd pain R10.9 Unspecified abdominal pain 6 MO FU Reason for Visit Abdominal pain GERD (gastroesophageal reflux disease) Liver hemangioma Chief Complaint abd pain, n/v E ORDERS & PAPER/ 2 ORDERING DOCTORS E-ORDER CONSTIPATION E ORDER abd pain R10.9 Unspecified abdominal pain 6 MO FU Reason for Visit Abdominal pain GERD (gastroesophageal reflux disease) Liver hemangioma Chief Complaint abd pain, n/v E ORDERS & PAPER/ 2 ORDERING DOCTORS E-ORDER CONSTIPATION E ORDER abd pain R10.9 Unspecified abdominal pain 6 MO FU INT LABS Reason for Visit Abdominal pain GERD (gastroesophageal reflux disease) Liver hemangioma Chief Complaint Admit Date Annual (LINING CUTTER) August 13, 2024 3 :53pm Back pain August 26, 2024 5:25pm COUGH, SORE THROAT, CONGESTION September 9:40am Diarrhea November 13, 2024 8:16p m Reason for Visit Admit Date Encounter for routine gynecological exam ination August 13, 2024 3:53pm Segmental and somatic dysfunction of cer vical region August 26, 2024 5:25pm Segmental and somatic dysfunction of lum bar region August 26, 2024 5:25pm Segmental and somatic dysfunction of pel sheri region August 26, 2024 5:25pm Segmental and somatic dysfunction of tho racic region August 26, 2024 5:25pm Scoliosis of lumbar spine August 26, 2024 5:25pm Gastroparesis September 19, 2024 9:4 0am URI (upper respiratory infection) September 19, 2024 9:40am Chief Complaint Admit Date Annual (LINING CUTTER) August 13, 2024 3 :53pm Back pain August 26, 2024 5:25pm COUGH, SORE THROAT, CONGESTION September 9:40am Diarrhea November 13, 2024 8:16p m C2 December 06, 2024 8:29a m tdap December 07, 2024 10:25 am VENOFER 300MG December 08, 2024 11:51 am Chief Complaint Admit Date Back pain August 26, 2024 5:25pm COUGH, SORE THROAT, CONGESTION September 9:40am Diarrhea November 13, 2024 8:16p m C2 December 06, 2024 8:29a m tdap December 07, 2024 10:25 am VENOFER 300MG December 08, 2024 11:51 am VENOFER 300MG December 14, 2024 11:4 1am Reason for Visit Admit Date Segmental and somatic dysfunction of cer vical region August 26, 2024 5:25pm Segmental and somatic dysfunction of lum bar region August 26, 2024 5:25pm Segmental and somatic dysfunction of pel sheri region August 26, 2024 5:25pm Segmental and somatic dysfunction of tho racic region August 26, 2024 5:25pm Scoliosis of lumbar spine August 26, 2024 5:25pm Gastroparesis September 19, 2024 9:4 0am URI (upper respiratory infection) September 19, 2024 9:40am Chief Complaint Admit Date Annual (LINING CUTTER) August 13, 2024 3 :53pm Back pain August 26, 2024 5:25pm COUGH, SORE THROAT, CONGESTION September 9:40am Diarrhea November 13, 2024 8:16p m C2 December 06, 2024 8:29a m tdap December 07, 2024 10:25 am Chief Complaint Admit Date Back pain August 26, 2024 5:25pm COUGH, SORE THROAT, CONGESTION September 9:40am Diarrhea November 13, 2024 8:16p m C2 December 06, 2024 8:29a m tdap December 07, 2024 10:25 am VENOFER 300MG December 08, 2024 11:51 am VENOFER 300MG December 14, 2024 11:4 1am VENOFER 300MG December 22, 2024 12:0 0pm Chief Complaint Admit Date COUGH, SORE THROAT, CONGESTION September 9:40am Diarrhea November 13, 2024 8:16p m C2 December 06, 2024 8:29a m tdap December 07, 2024 10:25 am VENOFER 300MG December 08, 2024 11:51 am VENOFER 300MG December 14, 2024 11:4 1am VENOFER 300MG December 22, 2024 12:0 0pm Reason for Visit Admit Date Gastroparesis September 19, 2024 9:4 0am URI (upper respiratory infection) September 19, 2024 9:40am Chief Complaint Admit Date Diarrhea November 13, 2024 8:16p m C2 December 06, 2024 8:29a m tdap December 07, 2024 10:25 am VENOFER 300MG December 08, 2024 11:51 am VENOFER 300MG December 14, 2024 11:4 1am VENOFER 300MG December 22, 2024 12:0 0pm Chief Complaint Admit Date Diarrhea November 13, 2024 8:16p m C2 December 06, 2024 8:29a m tdap December 07, 2024 10:25 am VENOFER 300MG December 08, 2024 11:51 am VENOFER 300MG December 14, 2024 11:4 1am VENOFER 300MG December 22, 2024 12:0 0pm culture February 28, 2025 2: 33pm Reason for Visit Admit Date Yeast infection February 28, 2025 2: 33pm Chief Complaint Admit Date VENOFER 300MG December 14, 2024 11:4 1am VENOFER 300MG December 22, 2024 12:0 0pm culture February 28, 2025 2: 33pm Health Concerns Infection Onset Date Last Indicated Resolved Time COVID-19 Rule-Out 11/26/2021 11/26/2021 Reason for Referral Specialty Diagnoses / Procedures Referred By Contac t Referred To Contact Diagnoses Narcolepsy without cataplexy Amy Sanders APRN.[facility] [address] [facility] [address] [place] [address] Referral ID Status Reason Start Date Expiration Date V isits Requested Visits Authorized [id number] Pending Review 1 1 Specialty Diagnoses / Procedures Referred By Contac t Referred To Contact Diagnoses Gastroparesis Nonintractable epilepsy without status epilepticus, unspecified epilepsy type (HCC) Procedures CONSULT TO MATERNAL MEDI OFFICE/OUTPATIENT [facility] 60 MINUTES Lizbet Rider MD [address] [facility] [place] [address] Referral ID Status Reason Start Date Expiration Date Visits Requested Visits Authorized [id number] Authorized PCP Requested Referral Auto-Generate d Referral 11/14/2023 11/13/2024 1 1 Specialty Diagnoses / Procedures Referred By Contac t Referred To Contact Diagnoses Gastroparesis POTS (postural orthostatic tachycardia syndrome) Chronic fatigue syndrome History of foot fracture Procedures CONSULT TO MEDICAL GENETICS - GENERAL OFFICE/OUTPATIENT [facility] 60 MINUTES MEDICAL GENETICS COUNSELING EACH 30 [place] [address] [place] [address] [place] [address] [place] [address] Referral ID Status Reason Start Date Expiration Date Visits Requested Visits Authorized [id number] Pending Review PCP Requested Referral Auto-Generate d Referral 12/09/2023 12/08/2024 1 1 Specialty Diagnoses / Procedures Referred By Contac t Referred To Contact Rheumatology Diagnoses Gastroparesis POTS (postural orthostatic tachycardia syndrome) Chronic fatigue syndrome Procedures CONSULT TO RHEUM/IMMUN DISEASE OFFICE/OUTPATIENT [facility] [place] [address] [place] [address] Referral ID Status Reason Start Date Expiration Date Visits Requested Visits Authorized [id number] Authorized PCP Requested Referral 12/09/2023 12/08/2024 1 1 Specialty Diagnoses / Procedures Referred By Contac t Referred To Contact Diagnoses Request for sterilization Procedures CONSULT TO MINIMALLY INVASIVE GYNECOLOGIC SURGERY OFFICE/OUTPATIENT [facility] 60 MINUTES Lizbet Rider MD [address] [place] [address] Referral ID Status Reason Start Date Expiration Date Visits Requested Visits Authorized [id number] Authorized PCP Requested Referral Auto-Generate d Referral 12/11/2023 12/10/2024 1 1 Additional Source Comments INFORMATION SOURCE (unrecogn ized section and content) DATE CREATED AUTHOR 06/15/2018 [facility] DATE CREATED AUTHOR AUTHOR'S ORGANIZ ATION 01/26/2020 [facility] DATE CREATED AUTHOR AUTHOR'S ORGANIZ ATION 11/07/2022 [facility] DATE CREATED AUTHOR AUTHOR'S ORGANIZ ATION 03/24/2025 [facility] DATE CREATED AUTHOR AUTHOR'S ORGANIZ ATION 04/12/2025 [facility] DATE CREATED AUTHOR AUTHOR'S ORGANIZ ATION 04/26/2025 [facility] DATE CREATED AUTHOR AUTHOR'S ORGANIZ ATION 05/08/2025 [facility] Reason for Visit (unrecogniz ed section and content) Reason Comments Physical Therapy Specialty Diagnoses / Procedures Referred By Contac t Referred To Contact [facility] Diagnoses Hypermobility arthralgia Pain in joint, multiple sites Procedures PHYSICAL THERAPY EVALUATION HIGH COMPLEX 45 MINS THERAPEUTIC EXERCISES RE, EA 15 MIN. Yung Celeste MD [address] [place] [address] Phone: tel: fax: [facility] [address] [place] [address] Referral ID Status Reason Start Date Expiration Date Visits Requested Visits Authorized [id number] Authorized Auto-Generat ed Referral 07/07/2024 07/06/2025 40 40 Reason Comments PT Progress Note Reason For Visit Description Start Date New/Est - 1st visit with physician 02/05 Preliminary reason f or visit data, not yet signed by the author as of bilateral foot pain Reason Comments Appointment patient is requestin g [...] Referred By Chaz maxwell Referred To Contact Diagnoses MT (mallet toe), right Procedures CORRECTION HAMMERT[place] TX OPEN TENDON FLEXOR TOE 1 TENDON SPX CORRECTION HAMMER TOE ONE TOE UNILATERAL REPAIR TOE HAMMER [facility] [address] [place] [address] Referral ID Status Reason Start Date Expiration Date Visits Re quested Visits Authorized [id number] 1 1 Reason Comments Follow Up Gyant [...] Referred To Contact Radiology / RADIO MRI [facility] Diagnoses Epigastric pain Gastritis GERD (gastroesophageal reflux disease) Liver lesion Elevated LFTs MRI ABDOMEN W CON - MRI LIVER W CONTRAST Epigastric pain R10.13 Gastritis K29.09 GERD K21.9 Liver lesion K76.9 Elevated LFTs R79.89 Procedures MRI ABDOMEN W/CONTRAST MATERIAL MRI ABDOMEN W/O & W/CONTRAST MATERIAL MRI WWO ABD [address] Agustina Martinez, NICOLASA.WIND DEVELOPMENT DIRECTOR [address] [place] [address] [address] [facility] [place] [address] Referral ID Status Reason Start Date Expiration Date Visits Re quested Visits Authorized [id number] Closed 11/25/2022 05/24/2023 1 1 Reason Comments Appointment Autoimmune gastritis /hospital discharge Reason Comments Nutrition Assessment Reason Comments New Patient Autoimmune gastritis Reason Comments Well Woman Reason Comments RTW Letter Reason Comments Appointment Reason Comments Patient Update Reason Comments US Specialty Diagnoses / Procedures Referred By Contcassius t Referred To Contact Diagnoses Gastroparesis Nonintractable epilepsy without status epilepticus, unspecified epilepsy type (HCC) Procedures CONSULT TO MATERNAL MEDI OFFICE/OUTPATIENT NEW HIGH MDM 60 MINUTES Lizbet Rider MD [address] [place] [address] Referral ID Status Reason Start Date Expiration Date V isits Requested Visits Authorized [id number] Closed PCP Requested Referral Auto-Generated Referral 11/14/2023 11/13/2024 1 1 Reason Comments Contraception Reason Comments Patient Update Multiple symptoms Reason Onset Date Comments Refill Request 02/15/2024 Reason Comments Established Patient Follow Up Reason Comments Follow Up Phone Call All clear Reason Comments undesired Reason Comments Gastroparesis EGG test Specialty Diagnoses / Procedures Referred By Contact Referred To Contact Gastroenterology / GASTROENTEROLOGY Diagnoses Right upper quadrant pain egg Procedures ELECTROGASTROGRAPHY DX TRANSCUT W/PROVOCTVE TSTG ELECTROGASTROGRAM Self [facility] [address] [place] [address] Referral ID Status Reason Start Date Expiration Date Visits Re quested Visits Authorized [id number] Closed 03/01/2024 07/06/2024 1 1 Reason Comments Gastroparesis Nausea and vomiting constipation Specialty Diagnoses / Procedures Referred By Contact Referred To Contact Gastroenterology / GASTROENTEROLOGY Diagnoses Right upper quadrant pain New gp consult Procedures OFFICE/OUTPATIENT NEW MODERATE MDM 45 MINUTES NEW DDI GASTROPARESIS Self Dustin Tamayo DO [facility] [address] [place] [address] Referral ID Status Reason Start Date Expiration Date Visits Re quested Visits Authorized [id number] Closed 03/01/2024 07/06/2024 1 1 Reason Comments Medication Preauthorization PA for Ibsre la Reason Onset Date Comments Pre-Op Teaching 03/02/2024 Reason Comments Anesthesia Consult Reason Comments New Patient GB, seen in ED Reason Comments Follow Up Reason Comments FMLA Paperwork Reason Comments Post op complications Reason Comments Post Op Reason Comments EGG RESULTS Reason Comments Post-Op Visit Reason Comments Patient Question EGD Instructions Reason Comments Results Reason Comments Nm Pet Request Reason Comments Gastroparesis Abdominal Pain Reason Comments Patient Question Reason Comments Appointment Gastroparesis Clinic : 4 week f/u Reason Comments Radiology NM Specialty Diagnoses / Procedures Referred By Chaz t Referred To Contact MOLECULAR & FUNCTIONAL IMAGING Diagnoses Malignant carcinoid tumor, unspecified site (HCC) Procedures NM PET/CT NEUROENDOCRINE WHOLE BODY IMAGING PET IMAGING CT ATTENUATION SKULL BASE MID-THIGH GALLIUM GA-68 Bernie Martines MD [address] [place] [address] Molecular [facility] Functional Imaging [address] [place] [address] Referral ID Status Reason Start Date Expiration Date V isits Requested Visits Authorized [id number] Closed Auto-Generate d Referral 03/29/2024 06/22/2024 1 1 Reason Comments New Patient Elevated Transaminas e Level, Liver Lesion Specialty Diagnoses / Procedures Referred By Contac t Referred To Contact Gastroenterology Diagnoses Elevated transaminase level Liver lesion Constipation, unspecified constipation type Procedures CONSULT TO GASTROENTEROLOGY OFFICE/OUTPATIENT NEW HIGH MDM 60-74 MINUTES Amy Sanders APRN.CORRECTIONAL PROBATION OFFICER [address] [facility] [address] [place] [address] Referral ID Status Reason Start Date Expiration Date V isits Requested Visits Authorized [id number] Closed PCP Requested Referral 10/31/2022 10/31/2023 1 1 Reason Comments Post Op Follow Up Reason Comments Outside Lab Results Reason Comments Established Patient Autoimmune gastritis Reason Comments New Patient Specialty Diagnoses / Procedures Referred By Contac t Referred To Contact Rheumatology Diagnoses Gastroparesis POTS (postural orthostatic tachycardia syndrome) Chronic fatigue syndrome Procedures CONSULT TO RHEUM/IMMUN DISEASE OFFICE/OUTPATIENT NEW HIGH MDM [place] [address] [place] [address] Referral ID Status Reason Start Date Expiration Date V isits Requested Visits Authorized [id number] Closed PCP Requested Referral 12/09/2023 12/08/2024 1 1 Reason Comments Positive KHRIS Reason Comments New Patient Evaluation Specialty Diagnoses / Procedures Referred By Contac t Referred To Contact Allergy Diagnoses Low serum complement C4 Angioedema, sequela Procedures CONSULT TO ALLERGY/IMMUNOLOGY OFFICE/OUTPATIENT NEW HIGH MDM 60 MINUTES Alan Cortés MD [address] [facility] [address] [place] [address] Phone: tel: fax: Referral ID Status Reason Start Date Expiration Date V isits Requested Visits Authorized [id number] Closed PCP Requested Referral 08/20/2024 08/20/2025 1 1 Reason Onset Date Comments Refill Request 08/27/2024 Reason Comments Established Patient autoimmune gastritis /HD Reason Comments Gastroparesis Constipation Reason Onset Date Comments Refill Request 10/01/2024 Reason Comments Insurance Authorization Reason Comments Medication Question Orledyo-appeal quest ions--see 10/22/24 Reason Comments Insurance Authorization Firazyr (HAE prn acute attacks) Reason Onset Date Comments Refill Request 12/20/2024 Reason Comments Immunotherapy Pneumovax vaccine Reason Comments Gastroparesis Reason Comments Care Coordination Schedule procedure a nd follow up appt Reason Comments PT Eval Specialty Diagnoses / Procedures Referred By Contac t Referred To Contact [facility] Diagnoses Hypermobility arthralgia Pain in joint, multiple sites Procedures CONSULT TO PHYSICAL THERAPY PHYSICAL THERAPY EVALUATION HIGH COMPLEX 45 MINS THERAPEUTIC EXERCISES RE, EA 15 MIN. Yung Celeste MD [address] [place] [address] Phone: tel: fax: [facility] [address] [place] [address] Reason Comments PACC EGD 02/02/2025 Reason Comments New Patient Elevated LFTs [R79.8 9] Specialty Diagnoses / Procedures Referred By Contac t Referred To Contact Diagnoses Elevated LFTs Procedures OFFICE/OUTPATIENT [facility] 60 MINUTES Bernie Martines MD [address] [place] [address] Phone: tel: fax: Referral ID Status Reason Start Date Expiration Date V isits Requested Visits Authorized [id number] Closed PCP Requested Referral 09/15/2024 09/15/2025 1 1 Reason Onset Date Comments Refill Request 03/11/2025 Reason Comments Consult surgery on 03/23/25 a t [place] [facility] Reason Comments Established Patient Autoimmune Gastritis Source Comments (unrecognize d section and content) In the event this informatio n is protected by the Federal Confidentiality of Alcohol and Drug Abuse Patient Records regulations: The Federal rules restrict any use of the information to criminally investigate or prosecute any alcohol or drug abuse patient.[facility] the event this information is protected by the Federal Confidentiality of Alcohol and Drug Abuse Patient Records regulations: The Federal rules restrict any use of the information to criminally investigate or prosecute any alcohol or drug abuse patient.[facility] Hospital[facility] the event this information is protected by the Federal Confidentiality of Alcohol and Drug Abuse Patient Records regulations: The Federal rules restrict any use of the information to criminally investigate or prosecute any alcohol or drug abuse patient.[facility] Hospital[facility] the event this information is protected by the Federal Confidentiality of Alcohol and Drug Abuse Patient Records regulations: The Federal rules restrict any use of the information to criminally investigate or prosecute any alcohol or drug abuse patient.[facility] HospitalIn the event this information is protected by the Federal Confidentiality of Alcohol and Drug Abuse Patient Records regulations: The Federal rules restrict any use of the information to criminally investigate or prosecute any alcohol or drug abuse patient.[facility] HospitalIn the event this information is protected by the Federal Confidentiality of Alcohol and Drug Abuse Patient Records regulations: The Federal rules restrict any use of the information to criminally investigate or prosecute any alcohol or drug abuse patient.[facility] HospitalIn the event this information is protected by the Federal Confidentiality of Alcohol and Drug Abuse Patient Records regulations: The Federal rules restrict any use of the information to criminally investigate or prosecute any alcohol or drug abuse patient.[facility] HospitalIn the event this information is protected by the Federal Confidentiality of Alcohol and Drug Abuse Patient Records regulations: The Federal rules restrict any use of the information to criminally investigate or prosecute any alcohol or drug abuse patient.[facility] HospitalIn the event this information is protected by the Federal Confidentiality of Alcohol and Drug Abuse Patient Records regulations: The Federal rules restrict any use of the information to criminally investigate or prosecute any alcohol or drug abuse patient.[facility] HospitalIn the event this information is protected by the Federal Confidentiality of Alcohol and Drug Abuse Patient Records regulations: The Federal rules restrict any use of the information to criminally investigate or prosecute any alcohol or drug abuse patient.[facility] HospitalIn the event this information is protected by the Federal Confidentiality of Alcohol and Drug Abuse Patient Records regulations: The Federal rules restrict any use of the information to criminally investigate or prosecute any alcohol or drug abuse patient.[facility] HospitalIn the event this information is protected by the Federal Confidentiality of Alcohol and Drug Abuse Patient Records regulations: The Federal rules restrict any use of the information to criminally investigate or prosecute any alcohol or drug abuse patient.[facility] HospitalIn the event this information is protected by the Federal Confidentiality of Alcohol and Drug Abuse Patient Records regulations: The Federal rules restrict any use of the information to criminally investigate or prosecute any alcohol or drug abuse patient.[facility] HospitalIn the event this information is protected by the Federal Confidentiality of Alcohol and Drug Abuse Patient Records regulations: The Federal rules restrict any use of the information to criminally investigate or prosecute any alcohol or drug abuse patient.[facility] HospitalIn the event this information is protected by the Federal Confidentiality of Alcohol and Drug Abuse Patient Records regulations: The Federal rules restrict any use of the information to criminally investigate or prosecute any alcohol or drug abuse patient.[facility] HospitalIn the event this information is protected by the Federal Confidentiality of Alcohol and Drug Abuse Patient Records regulations: The Federal rules restrict any use of the information to criminally investigate or prosecute any alcohol or drug abuse patient.[facility] HospitalIn the event this information is protected by the Federal Confidentiality of Alcohol and Drug Abuse Patient Records regulations: The Federal rules restrict any use of the information to criminally investigate or prosecute any alcohol or drug abuse patient.[facility] HospitalIn the event this information is protected by the Federal Confidentiality of Alcohol and Drug Abuse Patient Records regulations: The Federal rules restrict any use of the information to criminally investigate or prosecute any alcohol or drug abuse patient.[facility] HospitalIn the event this information is protected by the Federal Confidentiality of Alcohol and Drug Abuse Patient Records regulations: The Federal rules restrict any use of the information to criminally investigate or prosecute any alcohol or drug abuse patient.[facility] HospitalIn the event this information is protected by the Federal Confidentiality of Alcohol and Drug Abuse Patient Records regulations: The Federal rules restrict any use of the information to criminally investigate or prosecute any alcohol or drug abuse patient.[facility] HospitalIn the event this information is protected by the Federal Confidentiality of Alcohol and Drug Abuse Patient Records regulations: The Federal rules restrict any use of the information to criminally investigate or prosecute any alcohol or drug abuse patient.[facility] HospitalIn the event this information is protected by the Federal Confidentiality of Alcohol and Drug Abuse Patient Records regulations: The Federal rules restrict any use of the information to criminally investigate or prosecute any alcohol or drug abuse patient.[facility] HospitalIn the event this information is protected by the Federal Confidentiality of Alcohol and Drug Abuse Patient Records regulations: The Federal rules restrict any use of the information to criminally investigate or prosecute any alcohol or drug abuse patient.[facility] HospitalIn the event this information is protected by the Federal Confidentiality of Alcohol and Drug Abuse Patient Records regulations: The Federal rules restrict any use of the information to criminally investigate or prosecute any alcohol or drug abuse patient.[facility] HospitalIn the event this information is protected by the Federal Confidentiality of Alcohol and Drug Abuse Patient Records regulations: The Federal rules restrict any use of the information to criminally investigate or prosecute any alcohol or drug abuse patient.[facility] HospitalIn the event this information is protected by the Federal Confidentiality of Alcohol and Drug Abuse Patient Records regulations: The Federal rules restrict any use of the information to criminally investigate or prosecute any alcohol or drug abuse patient.[facility] HospitalIn the event this information is protected by the Federal Confidentiality of Alcohol and Drug Abuse Patient Records regulations: The Federal rules restrict any use of the information to criminally investigate or prosecute any alcohol or drug abuse patient.[facility] HospitalIn the event this information is protected by the Federal Confidentiality of Alcohol and Drug Abuse Patient Records regulations: The Federal rules restrict any use of the information to criminally investigate or prosecute any alcohol or drug abuse patient.[facility] HospitalIn the event this information is protected by the Federal Confidentiality of Alcohol and Drug Abuse Patient Records regulations: The Federal rules restrict any use of the information to criminally investigate or prosecute any alcohol or drug abuse patient.[facility] HospitalIn the event this information is protected by the Federal Confidentiality of Alcohol and Drug Abuse Patient Records regulations: The Federal rules restrict any use of the information to criminally investigate or prosecute any alcohol or drug abuse patient.[facility] HospitalIn the event this information is protected by the Federal Confidentiality of Alcohol and Drug Abuse Patient Records regulations: The Federal rules restrict any use of the information to criminally investigate or prosecute any alcohol or drug abuse patient.[facility] HospitalIn the event this information is protected by the Federal Confidentiality of Alcohol and Drug Abuse Patient Records regulations: The Federal rules restrict any use of the information to criminally investigate or prosecute any alcohol or drug abuse patient.[facility] HospitalIn the event this information is protected by the Federal Confidentiality of Alcohol and Drug Abuse Patient Records regulations: The Federal rules restrict any use of the information to criminally investigate or prosecute any alcohol or drug abuse patient.[facility] HospitalIn the event this information is protected by the Federal Confidentiality of Alcohol and Drug Abuse Patient Records regulations: The Federal rules restrict any use of the information to criminally investigate or prosecute any alcohol or drug abuse patient.[facility] HospitalIn the event this information is protected by the Federal Confidentiality of Alcohol and Drug Abuse Patient Records regulations: The Federal rules restrict any use of the information to criminally investigate or prosecute any alcohol or drug abuse patient.[facility] HospitalIn the event this information is protected by the Federal Confidentiality of Alcohol and Drug Abuse Patient Records regulations: The Federal rules restrict any use of the information to criminally investigate or prosecute any alcohol or drug abuse patient.[facility] HospitalIn the event this information is protected by the Federal Confidentiality of Alcohol and Drug Abuse Patient Records regulations: The Federal rules restrict any use of the information to criminally investigate or prosecute any alcohol or drug abuse patient.[facility] HospitalIn the event this information is protected by the Federal Confidentiality of Alcohol and Drug Abuse Patient Records regulations: The Federal rules restrict any use of the information to criminally investigate or prosecute any alcohol or drug abuse patient.[facility] HospitalIn the event this information is protected by the Federal Confidentiality of Alcohol and Drug Abuse Patient Records regulations: The Federal rules restrict any use of the information to criminally investigate or prosecute any alcohol or drug abuse patient.[facility] HospitalIn the event this information is protected by the Federal Confidentiality of Alcohol and Drug Abuse Patient Records regulations: The Federal rules restrict any use of the information to criminally investigate or prosecute any alcohol or drug abuse patient.[facility] HospitalIn the event this information is protected by the Federal Confidentiality of Alcohol and Drug Abuse Patient Records regulations: The Federal rules restrict any use of the information to criminally investigate or prosecute any alcohol or drug abuse patient.[facility] HospitalIn the event this information is protected by the Federal Confidentiality of Alcohol and Drug Abuse Patient Records regulations: The Federal rules restrict any use of the information to criminally investigate or prosecute any alcohol or drug abuse patient.[facility] HospitalIn the event this information is protected by the Federal Confidentiality of Alcohol and Drug Abuse Patient Records regulations: The Federal rules restrict any use of the information to criminally investigate or prosecute any alcohol or drug abuse patient.[facility] HospitalIn the event this information is protected by the Federal Confidentiality of Alcohol and Drug Abuse Patient Records regulations: The Federal rules restrict any use of the information to criminally investigate or prosecute any alcohol or drug abuse patient.[facility] HospitalIn the event this information is protected by the Federal Confidentiality of Alcohol and Drug Abuse Patient Records regulations: The Federal rules restrict any use of the information to criminally investigate or prosecute any alcohol or drug abuse patient.[facility] HospitalIn the event this information is protected by the Federal Confidentiality of Alcohol and Drug Abuse Patient Records regulations: The Federal rules restrict any use of the information to criminally investigate or prosecute any alcohol or drug abuse patient.[facility] HospitalIn the event this information is protected by the Federal Confidentiality of Alcohol and Drug Abuse Patient Records regulations: The Federal rules restrict any use of the information to criminally investigate or prosecute any alcohol or drug abuse patient.[facility] HospitalIn the event this information is protected by the Federal Confidentiality of Alcohol and Drug Abuse Patient Records regulations: The Federal rules restrict any use of the information to criminally investigate or prosecute any alcohol or drug abuse patient.[facility] HospitalIn the event this information is protected by the Federal Confidentiality of Alcohol and Drug Abuse Patient Records regulations: The Federal rules restrict any use of the information to criminally investigate or prosecute any alcohol or drug abuse patient.[facility] HospitalIn the event this information is protected by the Federal Confidentiality of Alcohol and Drug Abuse Patient Records regulations: The Federal rules restrict any use of the information to criminally investigate or prosecute any alcohol or drug abuse patient.[facility] HospitalIn the event this information is protected by the Federal Confidentiality of Alcohol and Drug Abuse Patient Records regulations: The Federal rules restrict any use of the information to criminally investigate or prosecute any alcohol or drug abuse patient.[facility] HospitalIn the event this information is protected by the Federal Confidentiality of Alcohol and Drug Abuse Patient Records regulations: The Federal rules restrict any use of the information to criminally investigate or prosecute any alcohol or drug abuse patient.[facility] HospitalIn the event this information is protected by the Federal Confidentiality of Alcohol and Drug Abuse Patient Records regulations: The Federal rules restrict any use of the information to criminally investigate or prosecute any alcohol or drug abuse patient.[facility] HospitalIn the event this information is protected by the Federal Confidentiality of Alcohol and Drug Abuse Patient Records regulations: The Federal rules restrict any use of the information to criminally investigate or prosecute any alcohol or drug abuse patient.[facility] HospitalIn the event this information is protected by the Federal Confidentiality of Alcohol and Drug Abuse Patient Records regulations: The Federal rules restrict any use of the information to criminally investigate or prosecute any alcohol or drug abuse patient.[facility] HospitalIn the event this information is protected by the Federal Confidentiality of Alcohol and Drug Abuse Patient Records regulations: The Federal rules restrict any use of the information to criminally investigate or prosecute any alcohol or drug abuse patient.[facility] HospitalIn the event this information is protected by the Federal Confidentiality of Alcohol and Drug Abuse Patient Records regulations: The Federal rules restrict any use of the information to criminally investigate or prosecute any alcohol or drug abuse patient.[facility] HospitalIn the event this information is protected by the Federal Confidentiality of Alcohol and Drug Abuse Patient Records regulations: The Federal rules restrict any use of the information to criminally investigate or prosecute any alcohol or drug abuse patient.[facility] HospitalIn the event this information is protected by the Federal Confidentiality of Alcohol and Drug Abuse Patient Records regulations: The Federal rules restrict any use of the information to criminally investigate or prosecute any alcohol or drug abuse patient.[facility] HospitalIn the event this information is protected by the Federal Confidentiality of Alcohol and Drug Abuse Patient Records regulations: The Federal rules restrict any use of the information to criminally investigate or prosecute any alcohol or drug abuse patient.[facility] HospitalIn the event this information is protected by the Federal Confidentiality of Alcohol and Drug Abuse Patient Records regulations: The Federal rules restrict any use of the information to criminally investigate or prosecute any alcohol or drug abuse patient.[facility] HospitalIn the event this information is protected by the Federal Confidentiality of Alcohol and Drug Abuse Patient Records regulations: The Federal rules restrict any use of the information to criminally investigate or prosecute any alcohol or drug abuse patient.[facility] HospitalIn the event this information is protected by the Federal Confidentiality of Alcohol and Drug Abuse Patient Records regulations: The Federal rules restrict any use of the information to criminally investigate or prosecute any alcohol or drug abuse patient.[facility] HospitalIn the event this information is protected by the Federal Confidentiality of Alcohol and Drug Abuse Patient Records regulations: The Federal rules restrict any use of the information to criminally investigate or prosecute any alcohol or drug abuse patient.[facility] HospitalIn the event this information is protected by the Federal Confidentiality of Alcohol and Drug Abuse Patient Records regulations: The Federal rules restrict any use of the information to criminally investigate or prosecute any alcohol or drug abuse patient.[facility] HospitalIn the event this information is protected by the Federal Confidentiality of Alcohol and Drug Abuse Patient Records regulations: The Federal rules restrict any use of the information to criminally investigate or prosecute any alcohol or drug abuse patient.[facility] HospitalIn the event this information is protected by the Federal Confidentiality of Alcohol and Drug Abuse Patient Records regulations: The Federal rules restrict any use of the information to criminally investigate or prosecute any alcohol or drug abuse patient.[facility] HospitalIn the event this information is protected by the Federal Confidentiality of Alcohol and Drug Abuse Patient Records regulations: The Federal rules restrict any use of the information to criminally investigate or prosecute any alcohol or drug abuse patient.[facility] HospitalIn the event this information is protected by the Federal Confidentiality of Alcohol and Drug Abuse Patient Records regulations: The Federal rules restrict any use of the information to criminally investigate or prosecute any alcohol or drug abuse patient.[facility] HospitalIn the event this information is protected by the Federal Confidentiality of Alcohol and Drug Abuse Patient Records regulations: The Federal rules restrict any use of the information to criminally investigate or prosecute any alcohol or drug abuse patient.[facility] HospitalIn the event this information is protected by the Federal Confidentiality of Alcohol and Drug Abuse Patient Records regulations: The Federal rules restrict any use of the information to criminally investigate or prosecute any alcohol or drug abuse patient.[facility] HospitalIn the event this information is protected by the Federal Confidentiality of Alcohol and Drug Abuse Patient Records regulations: The Federal rules restrict any use of the information to criminally investigate or prosecute any alcohol or drug abuse patient.[facility] HospitalIn the event this information is protected by the Federal Confidentiality of Alcohol and Drug Abuse Patient Records regulations: The Federal rules restrict any use of the information to criminally investigate or prosecute any alcohol or drug abuse patient.[facility] HospitalIn the event this information is protected by the Federal Confidentiality of Alcohol and Drug Abuse Patient Records regulations: The Federal rules restrict any use of the information to criminally investigate or prosecute any alcohol or drug abuse patient.[facility] HospitalIn the event this information is protected by the Federal Confidentiality of Alcohol and Drug Abuse Patient Records regulations: The Federal rules restrict any use of the information to criminally investigate or prosecute any alcohol or drug abuse patient.[facility] HospitalIn the event this information is protected by the Federal Confidentiality of Alcohol and Drug Abuse Patient Records regulations: The Federal rules restrict any use of the information to criminally investigate or prosecute any alcohol or drug abuse patient.[facility] HospitalIn the event this information is protected by the Federal Confidentiality of Alcohol and Drug Abuse Patient Records regulations: The Federal rules restrict any use of the information to criminally investigate or prosecute any alcohol or drug abuse patient.[facility] HospitalIn the event this information is protected by the Federal Confidentiality of Alcohol and Drug Abuse Patient Records regulations: The Federal rules restrict any use of the information to criminally investigate or prosecute any alcohol or drug abuse patient.[facility] HospitalIn the event this information is protected by the Federal Confidentiality of Alcohol and Drug Abuse Patient Records regulations: The Federal rules restrict any use of the information to criminally investigate or prosecute any alcohol or drug abuse patient.[facility] HospitalIn the event this information is protected by the Federal Confidentiality of Alcohol and Drug Abuse Patient Records regulations: The Federal rules restrict any use of the information to criminally investigate or prosecute any alcohol or drug abuse patient.[facility] HospitalIn the event this information is protected by the Federal Confidentiality of Alcohol and Drug Abuse Patient Records regulations: The Federal rules restrict any use of the information to criminally investigate or prosecute any alcohol or drug abuse patient.[facility] HospitalIn the event this information is protected by the Federal Confidentiality of Alcohol and Drug Abuse Patient Records regulations: The Federal rules restrict any use of the information to criminally investigate or prosecute any alcohol or drug abuse patient.[facility] HospitalIn the event this information is protected by the Federal Confidentiality of Alcohol and Drug Abuse Patient Records regulations: The Federal rules restrict any use of the information to criminally investigate or prosecute any alcohol or drug abuse patient.[facility] HospitalIn the event this information is protected by the Federal Confidentiality of Alcohol and Drug Abuse Patient Records regulations: The Federal rules restrict any use of the information to criminally investigate or prosecute any alcohol or drug abuse patient.[facility] HospitalIn the event this information is protected by the Federal Confidentiality of Alcohol and Drug Abuse Patient Records regulations: The Federal rules restrict any use of the information to criminally investigate or prosecute any alcohol or drug abuse patient.[facility] HospitalIn the event this information is protected by the Federal Confidentiality of Alcohol and Drug Abuse Patient Records regulations: The Federal rules restrict any use of the information to criminally investigate or prosecute any alcohol or drug abuse patient.[facility] HospitalIn the event this information is protected by the Federal Confidentiality of Alcohol and Drug Abuse Patient Records regulations: The Federal rules restrict any use of the information to criminally investigate or prosecute any alcohol or drug abuse patient.[facility] HospitalIn the event this information is protected by the Federal Confidentiality of Alcohol and Drug Abuse Patient Records regulations: The Federal rules restrict any use of the information to criminally investigate or prosecute any alcohol or drug abuse patient.[facility] HospitalIn the event this information is protected by the Federal Confidentiality of Alcohol and Drug Abuse Patient Records regulations: The Federal rules restrict any use of the information to criminally investigate or prosecute any alcohol or drug abuse patient.[facility] HospitalIn the event this information is protected by the Federal Confidentiality of Alcohol and Drug Abuse Patient Records regulations: The Federal rules restrict any use of the information to criminally investigate or prosecute any alcohol or drug abuse patient.[facility] HospitalIn the event this information is protected by the Federal Confidentiality of Alcohol and Drug Abuse Patient Records regulations: The Federal rules restrict any use of the information to criminally investigate or prosecute any alcohol or drug abuse patient.[facility] HospitalIn the event this information is protected by the Federal Confidentiality of Alcohol and Drug Abuse Patient Records regulations: The Federal rules restrict any use of the information to criminally investigate or prosecute any alcohol or drug abuse patient.[facility] HospitalIn the event this information is protected by the Federal Confidentiality of Alcohol and Drug Abuse Patient Records regulations: The Federal rules restrict any use of the information to criminally investigate or prosecute any alcohol or drug abuse patient.[facility] HospitalIn the event this information is protected by the Federal Confidentiality of Alcohol and Drug Abuse Patient Records regulations: The Federal rules restrict any use of the information to criminally investigate or prosecute any alcohol or drug abuse patient.[facility] HospitalIn the event this information is protected by the Federal Confidentiality of Alcohol and Drug Abuse Patient Records regulations: The Federal rules restrict any use of the information to criminally investigate or prosecute any alcohol or drug abuse patient.[facility] HospitalIn the event this information is protected by the Federal Confidentiality of Alcohol and Drug Abuse Patient Records regulations: The Federal rules restrict any use of the information to criminally investigate or prosecute any alcohol or drug abuse patient.[facility] HospitalIn the event this information is protected by the Federal Confidentiality of Alcohol and Drug Abuse Patient Records regulations: The Federal rules restrict any use of the information to criminally investigate or prosecute any alcohol or drug abuse patient.[facility] HospitalIn the event this information is protected by the Federal Confidentiality of Alcohol and Drug Abuse Patient Records regulations: The Federal rules restrict any use of the information to criminally investigate or prosecute any alcohol or drug abuse patient.[facility] HospitalIn the event this information is protected by the Federal Confidentiality of Alcohol and Drug Abuse Patient Records regulations: The Federal rules restrict any use of the information to criminally investigate or prosecute any alcohol or drug abuse patient.[facility] HospitalIn the event this information is protected by the Federal Confidentiality of Alcohol and Drug Abuse Patient Records regulations: The Federal rules restrict any use of the information to criminally investigate or prosecute any alcohol or drug abuse patient.[facility] HospitalIn the event this information is protected by the Federal Confidentiality of Alcohol and Drug Abuse Patient Records regulations: The Federal rules restrict any use of the information to criminally investigate or prosecute any alcohol or drug abuse patient.[facility] HospitalIn the event this information is protected by the Federal Confidentiality of Alcohol and Drug Abuse Patient Records regulations: The Federal rules restrict any use of the information to criminally investigate or prosecute any alcohol or drug abuse patient.[facility] HospitalIn the event this information is protected by the Federal Confidentiality of Alcohol and Drug Abuse Patient Records regulations: The Federal rules restrict any use of the information to criminally investigate or prosecute any alcohol or drug abuse patient.[facility] HospitalIn the event this information is protected by the Federal Confidentiality of Alcohol and Drug Abuse Patient Records regulations: The Federal rules restrict any use of the information to criminally investigate or prosecute any alcohol or drug abuse patient.[facility] HospitalIn the event this information is protected by the Federal Confidentiality of Alcohol and Drug Abuse Patient Records regulations: The Federal rules restrict any use of the information to criminally investigate or prosecute any alcohol or drug abuse patient.[facility] HospitalIn the event this information is protected by the Federal Confidentiality of Alcohol and Drug Abuse Patient Records regulations: The Federal rules restrict any use of the information to criminally investigate or prosecute any alcohol or drug abuse patient.[facility] HospitalIn the event this information is protected by the Federal Confidentiality of Alcohol and Drug Abuse Patient Records regulations: The Federal rules restrict any use of the information to criminally investigate or prosecute any alcohol or drug abuse patient.[facility] HospitalIn the event this information is protected by the Federal Confidentiality of Alcohol and Drug Abuse Patient Records regulations: The Federal rules restrict any use of the information to criminally investigate or prosecute any alcohol or drug abuse patient.[facility] HospitalIn the event this information is protected by the Federal Confidentiality of Alcohol and Drug Abuse Patient Records regulations: The Federal rules restrict any use of the information to criminally investigate or prosecute any alcohol or drug abuse patient.[facility] HospitalIn the event this information is protected by the Federal Confidentiality of Alcohol and Drug Abuse Patient Records regulations: The Federal rules restrict any use of the information to criminally investigate or prosecute any alcohol or drug abuse patient.[facility] HospitalIn the event this information is protected by the Federal Confidentiality of Alcohol and Drug Abuse Patient Records regulations: The Federal rules restrict any use of the information to criminally investigate or prosecute any alcohol or drug abuse patient.[facility] HospitalIn the event this information is protected by the Federal Confidentiality of Alcohol and Drug Abuse Patient Records regulations: The Federal rules restrict any use of the information to criminally investigate or prosecute any alcohol or drug abuse patient.[facility] HospitalIn the event this information is protected by the Federal Confidentiality of Alcohol and Drug Abuse Patient Records regulations: The Federal rules restrict any use of the information to criminally investigate or prosecute any alcohol or drug abuse patient.[facility] HospitalIn the event this information is protected by the Federal Confidentiality of Alcohol and Drug Abuse Patient Records regulations: The Federal rules restrict any use of the information to criminally investigate or prosecute any alcohol or drug abuse patient.[facility] HospitalIn the event this information is protected by the Federal Confidentiality of Alcohol and Drug Abuse Patient Records regulations: The Federal rules restrict any use of the information to criminally investigate or prosecute any alcohol or drug abuse patient.[facility] HospitalIn the event this information is protected by the Federal Confidentiality of Alcohol and Drug Abuse Patient Records regulations: The Federal rules restrict any use of the information to criminally investigate or prosecute any alcohol or drug abuse patient.[facility] HospitalIn the event this information is protected by the Federal Confidentiality of Alcohol and Drug Abuse Patient Records regulations: The Federal rules restrict any use of the information to criminally investigate or prosecute any alcohol or drug abuse patient.[facility] HospitalIn the event this information is protected by the Federal Confidentiality of Alcohol and Drug Abuse Patient Records regulations: The Federal rules restrict any use of the information to criminally investigate or prosecute any alcohol or drug abuse patient.[facility] HospitalIn the event this information is protected by the Federal Confidentiality of Alcohol and Drug Abuse Patient Records regulations: The Federal rules restrict any use of the information to criminally investigate or prosecute any alcohol or drug abuse patient.[facility] HospitalIn the event this information is protected by the Federal Confidentiality of Alcohol and Drug Abuse Patient Records regulations: The Federal rules restrict any use of the information to criminally investigate or prosecute any alcohol or drug abuse patient.[facility] HospitalIn the event this information is protected by the Federal Confidentiality of Alcohol and Drug Abuse Patient Records regulations: The Federal rules restrict any use of the information to criminally investigate or prosecute any alcohol or drug abuse patient.[facility] HospitalIn the event this information is protected by the Federal Confidentiality of Alcohol and Drug Abuse Patient Records regulations: The Federal rules restrict any use of the information to criminally investigate or prosecute any alcohol or drug abuse patient.[facility] HospitalIn the event this information is protected by the Federal Confidentiality of Alcohol and Drug Abuse Patient Records regulations: The Federal rules restrict any use of the information to criminally investigate or prosecute any alcohol or drug abuse patient.[facility] HospitalIn the event this information is protected by the Federal Confidentiality of Alcohol and Drug Abuse Patient Records regulations: The Federal rules restrict any use of the information to criminally investigate or prosecute any alcohol or drug abuse patient.[facility] HospitalIn the event this information is protected by the Federal Confidentiality of Alcohol and Drug Abuse Patient Records regulations: The Federal rules restrict any use of the information to criminally investigate or prosecute any alcohol or drug abuse patient.[facility] HospitalIn the event this information is protected by the Federal Confidentiality of Alcohol and Drug Abuse Patient Records regulations: The Federal rules restrict any use of the information to criminally investigate or prosecute any alcohol or drug abuse patient.[facility] HospitalIn the event this information is protected by the Federal Confidentiality of Alcohol and Drug Abuse Patient Records regulations: The Federal rules restrict any use of the information to criminally investigate or prosecute any alcohol or drug abuse patient.[facility] HospitalIn the event this information is protected by the Federal Confidentiality of Alcohol and Drug Abuse Patient Records regulations: The Federal rules restrict any use of the information to criminally investigate or prosecute any alcohol or drug abuse patient.[facility] HospitalIn the event this information is protected by the Federal Confidentiality of Alcohol and Drug Abuse Patient Records regulations: The Federal rules restrict any use of the information to criminally investigate or prosecute any alcohol or drug abuse patient.[facility] HospitalIn the event this information is protected by the Federal Confidentiality of Alcohol and Drug Abuse Patient Records regulations: The Federal rules restrict any use of the information to criminally investigate or prosecute any alcohol or drug abuse patient.[facility] HospitalIn the event this information is protected by the Federal Confidentiality of Alcohol and Drug Abuse Patient Records regulations: The Federal rules restrict any use of the information to criminally investigate or prosecute any alcohol or drug abuse patient.[facility] HospitalIn the event this information is protected by the Federal Confidentiality of Alcohol and Drug Abuse Patient Records regulations: The Federal rules restrict any use of the information to criminally investigate or prosecute any alcohol or drug abuse patient.[facility] HospitalIn the event this information is protected by the Federal Confidentiality of Alcohol and Drug Abuse Patient Records regulations: The Federal rules restrict any use of the information to criminally investigate or prosecute any alcohol or drug abuse patient.[facility] HospitalIn the event this information is protected by the Federal Confidentiality of Alcohol and Drug Abuse Patient Records regulations: The Federal rules restrict any use of the information to criminally investigate or prosecute any alcohol or drug abuse patient.[facility] HospitalIn the event this information is protected by the Federal Confidentiality of Alcohol and Drug Abuse Patient Records regulations: The Federal rules restrict any use of the information to criminally investigate or prosecute any alcohol or drug abuse patient.[facility] HospitalIn the event this information is protected by the Federal Confidentiality of Alcohol and Drug Abuse Patient Records regulations: The Federal rules restrict any use of the information to criminally investigate or prosecute any alcohol or drug abuse patient.[facility] HospitalIn the event this information is protected by the Federal Confidentiality of Alcohol and Drug Abuse Patient Records regulations: The Federal rules restrict any use of the information to criminally investigate or prosecute any alcohol or drug abuse patient.[facility] HospitalIn the event this information is protected by the Federal Confidentiality of Alcohol and Drug Abuse Patient Records regulations: The Federal rules restrict any use of the information to criminally investigate or prosecute any alcohol or drug abuse patient.[facility] HospitalIn the event this information is protected by the Federal Confidentiality of Alcohol and Drug Abuse Patient Records regulations: The Federal rules restrict any use of the information to criminally investigate or prosecute any alcohol or drug abuse patient.[facility] HospitalIn the event this information is protected by the Federal Confidentiality of Alcohol and Drug Abuse Patient Records regulations: The Federal rules restrict any use of the information to criminally investigate or prosecute any alcohol or drug abuse patient.[facility] HospitalIn the event this information is protected by the Federal Confidentiality of Alcohol and Drug Abuse Patient Records regulations: The Federal rules restrict any use of the information to criminally investigate or prosecute any alcohol or drug abuse patient.[facility] HospitalIn the event this information is protected by the Federal Confidentiality of Alcohol and Drug Abuse Patient Records regulations: The Federal rules restrict any use of the information to criminally investigate or prosecute any alcohol or drug abuse patient.[facility] HospitalIn the event this information is protected by the Federal Confidentiality of Alcohol and Drug Abuse Patient Records regulations: The Federal rules restrict any use of the information to criminally investigate or prosecute any alcohol or drug abuse patient.[facility] HospitalIn the event this information is protected by the Federal Confidentiality of Alcohol and Drug Abuse Patient Records regulations: The Federal rules restrict any use of the information to criminally investigate or prosecute any alcohol or drug abuse patient.[facility] HospitalIn the event this information is protected by the Federal Confidentiality of Alcohol and Drug Abuse Patient Records regulations: The Federal rules restrict any use of the information to criminally investigate or prosecute any alcohol or drug abuse patient.[facility] HospitalIn the event this information is protected by the Federal Confidentiality of Alcohol and Drug Abuse Patient Records regulations: The Federal rules restrict any use of the information to criminally investigate or prosecute any alcohol or drug abuse patient.[facility] HospitalIn the event this information is protected by the Federal Confidentiality of Alcohol and Drug Abuse Patient Records regulations: The Federal rules restrict any use of the information to criminally investigate or prosecute any alcohol or drug abuse patient.[facility] HospitalIn the event this information is protected by the Federal Confidentiality of Alcohol and Drug Abuse Patient Records regulations: The Federal rules restrict any use of the information to criminally investigate or prosecute any alcohol or drug abuse patient.[facility] HospitalIn the event this information is protected by the Federal Confidentiality of Alcohol and Drug Abuse Patient Records regulations: The Federal rules restrict any use of the information to criminally investigate or prosecute any alcohol or drug abuse patient.[facility] HospitalIn the event this information is protected by the Federal Confidentiality of Alcohol and Drug Abuse Patient Records regulations: The Federal rules restrict any use of the information to criminally investigate or prosecute any alcohol or drug abuse patient.[facility] HospitalIn the event this information is protected by the Federal Confidentiality of Alcohol and Drug Abuse Patient Records regulations: The Federal rules restrict any use of the information to criminally investigate or prosecute any alcohol or drug abuse patient.[facility] HospitalIn the event this information is protected by the Federal Confidentiality of Alcohol and Drug Abuse Patient Records regulations: The Federal rules restrict any use of the information to criminally investigate or prosecute any alcohol or drug abuse patient.[facility] HospitalIn the event this information is protected by the Federal Confidentiality of Alcohol and Drug Abuse Patient Records regulations: The Federal rules restrict any use of the information to criminally investigate or prosecute any alcohol or drug abuse patient.[facility] HospitalIn the event this information is protected by the Federal Confidentiality of Alcohol and Drug Abuse Patient Records regulations: The Federal rules restrict any use of the information to criminally investigate or prosecute any alcohol or drug abuse patient.[facility] HospitalIn the event this information is protected by the Federal Confidentiality of Alcohol and Drug Abuse Patient Records regulations: The Federal rules restrict any use of the information to criminally investigate or prosecute any alcohol or drug abuse patient.[facility] HospitalIn the event this information is protected by the Federal Confidentiality of Alcohol and Drug Abuse Patient Records regulations: The Federal rules restrict any use of the information to criminally investigate or prosecute any alcohol or drug abuse patient.[facility] HospitalIn the event this information is protected by the Federal Confidentiality of Alcohol and Drug Abuse Patient Records regulations: The Federal rules restrict any use of the information to criminally investigate or prosecute any alcohol or drug abuse patient.[facility] HospitalIn the event this information is protected by the Federal Confidentiality of Alcohol and Drug Abuse Patient Records regulations: The Federal rules restrict any use of the information to criminally investigate or prosecute any alcohol or drug abuse patient.[facility] HospitalIn the event this information is protected by the Federal Confidentiality of Alcohol and Drug Abuse Patient Records regulations: The Federal rules restrict any use of the information to criminally investigate or prosecute any alcohol or drug abuse patient.[facility] HospitalIn the event this information is protected by the Federal Confidentiality of Alcohol and Drug Abuse Patient Records regulations: The Federal rules restrict any use of the information to criminally investigate or prosecute any alcohol or drug abuse patient.[facility] HospitalIn the event this information is protected by the Federal Confidentiality of Alcohol and Drug Abuse Patient Records regulations: The Federal rules restrict any use of the information to criminally investigate or prosecute any alcohol or drug abuse patient.[facility] HospitalIn the event this information is protected by the Federal Confidentiality of Alcohol and Drug Abuse Patient Records regulations: The Federal rules restrict any use of the information to criminally investigate or prosecute any alcohol or drug abuse patient.[facility] HospitalIn the event this information is protected by the Federal Confidentiality of Alcohol and Drug Abuse Patient Records regulations: The Federal rules restrict any use of the information to criminally investigate or prosecute any alcohol or drug abuse patient.[facility] HospitalIn the event this information is protected by the Federal Confidentiality of Alcohol and Drug Abuse Patient Records regulations: The Federal rules restrict any use of the information to criminally investigate or prosecute any alcohol or drug abuse patient.[facility] HospitalIn the event this information is protected by the Federal Confidentiality of Alcohol and Drug Abuse Patient Records regulations: The Federal rules restrict any use of the information to criminally investigate or prosecute any alcohol or drug abuse patient.[facility] HospitalIn the event this information is protected by the Federal Confidentiality of Alcohol and Drug Abuse Patient Records regulations: The Federal rules restrict any use of the information to criminally investigate or prosecute any alcohol or drug abuse patient.[facility] HospitalIn the event this information is protected by the Federal Confidentiality of Alcohol and Drug Abuse Patient Records regulations: The Federal rules restrict any use of the information to criminally investigate or prosecute any alcohol or drug abuse patient.[facility] HospitalIn the event this information is protected by the Federal Confidentiality of Alcohol and Drug Abuse Patient Records regulations: The Federal rules restrict any use of the information to criminally investigate or prosecute any alcohol or drug abuse patient.[facility] HospitalIn the event this information is protected by the Federal Confidentiality of Alcohol and Drug Abuse Patient Records regulations: The Federal rules restrict any use of the information to criminally investigate or prosecute any alcohol or drug abuse patient.[facility] HospitalIn the event this information is protected by the Federal Confidentiality of Alcohol and Drug Abuse Patient Records regulations: The Federal rules restrict any use of the information to criminally investigate or prosecute any alcohol or drug abuse patient.[facility] HospitalIn the event this information is protected by the Federal Confidentiality of Alcohol and Drug Abuse Patient Records regulations: The Federal rules restrict any use of the information to criminally investigate or prosecute any alcohol or drug abuse patient.[facility] HospitalIn the event this information is protected by the Federal Confidentiality of Alcohol and Drug Abuse Patient Records regulations: The Federal rules restrict any use of the information to criminally investigate or prosecute any alcohol or drug abuse patient.[facility] Care Teams (unrecognized sec tion and content) Knot Tying Operator Relationship Specialty Start Date End Date Eileen Nair, DO [address] [address] [address] [facility] [place] [address] PCP - General 02 Knot Tying Operator Relationship Specialty Start Date End Date Eileen Nair, DO [address] [address] [address] [facility] [place] [address] PCP - General 02 Knot Tying Operator Relationship Specialty Start Date End Date Eileen Nair, DO [address] [address] [address] [facility] [place] [address] PCP - General 02 Knot Tying Operator Relationship Specialty Start Date End Date Eileen Nair, DO [address] [address] [address] [facility], [place] [address] PCP - General 02 Knot Tying Operator Relationship Specialty Start Date End Date Eileen Nair, DO [address] [address] [address] [facility] [place] [address] PCP - General 02 Knot Tying Operator Relationship Specialty Start Date End Date Eileen Nair, DO [address] [address] [address] [facility] [place] [address] PCP - General 02 Knot Tying Operator Relationship Specialty Start Date End Date Eileen Nair, DO [address] [address] [address] [facility] [place] [address] PCP - General 02 Knot Tying Operator Relationship Specialty Start Date End Date Eileen Nair, DO [address] [address] [address] [facility] [place] [address] PCP - General 02 Knot Tying Operator Relationship Specialty Start Date End Date Eileen Nair, DO [address] [address] [place] [address] PCP - General 02 Knot Tying Operator Relationship Specialty Start Date End Date Eileen Nair, DO [address] [address] [place] [address] PCP - General 02 Knot Tying Operator Relationship Specialty Start Date End Date Elieen Nair, DO [address] [address] [place] [address] PCP - General 02 Knot Tying Operator Relationship Specialty Start Date End Date Eileen Nair, DO [address] [address] [place] [address] PCP - General 02 Knot Tying Operator Relationship Specialty Start Date End Date Eileen Nair, DO [address] [address] [place] [address] PCP - General 02 Knot Tying Operator Relationship Specialty Start Date End Date Eileen Nair, DO [address] [address] [place] [address] PCP - General 02 Knot Tying Operator Relationship Specialty Start Date End Date Eileen Nair, DO [address] [address] [place] [address] PCP - General 02 Knot Tying Operator Relationship Specialty Start Date End Date Eileen Nair, DO [address] [address] [place] [address] PCP - General 02 Knot Tying Operator Relationship Specialty Start Date End Date Eileen Nair, DO [address] [address] [place] [address] PCP - General 02 Knot Tying Operator Relationship Specialty Start Date End Date Eileen Nair, DO [address] [address] [place] [address] PCP - General 02 Knot Tying Operator Relationship Specialty Start Date End Date Eileen Nair, DO [address] [address] [place] [address] PCP - General 02 Knot Tying Operator Relationship Specialty Start Date End Date Eileen Nair, DO [address] [address] [place] [address] PCP - General 02 Lisa Pacheco, material handling technician Staffing Analyst 11/06/22 12/06/22 Knot Tying Operator Relationship Specialty Start Date End Date Eileen Nair, DO [address] [address] [place] [address] PCP - General 02 Lisa Pacheco, material handling technician Staffing Analyst 11/06/22 12/06/22 Knot Tying Operator Relationship Specialty Start Date End Date Eileen Nair, DO [address] [address] [place] [address] PCP - General 02 Lisa Pacheco, material handling technician Staffing Analyst 11/06/22 12/06/22 Knot Tying Operator Relationship Specialty Start Date End Date Eileen Nair, DO [address] [address] [place] [address] PCP - General 02 Lisa Pacheco, material handling technician Staffing Analyst 11/06/22 12/06/22 Knot Tying Operator Relationship Specialty Start Date End Date Eileen Nair DO [address] [address] [address] [facility] [place] [address] PCP - General 02 Lisa Pacheco, material handling technician Staffing Analyst 11/06/22 12/06/22 Knot Tying Operator Relationship Specialty Start Date End Date Eileen Nair DO [address] [address] [address] [facility] [place] [address] PCP - General 02 Knot Tying Operator Relationship Specialty Start Date End Date Eileen Nair DO [address] [address] [address] [facility] [place] [address] PCP - General 02 Knot Tying Operator Relationship Specialty Start Date End Date Eileen Nair DO [address] [address] [address] [facility] [place] [address] PCP - General 02 Knot Tying Operator Relationship Specialty Start Date End Date Eileen Nair DO [address] [address] [address] [facility] [place] [address] PCP - General 02 Knot Tying Operator Relationship Specialty Start Date End Date Eileen Nair DO [address] [address] [address] [facility] [place] [address] PCP - General 02 Knot Tying Operator Relationship Specialty Start Date End Date Eileen Nair DO [address] [address] [address] [facility] [place] [address] PCP - General 02 Knot Tying Operator Relationship Specialty Start Date End Date Eileen Nair DO [address] [address] [address] [facility] [place] [address] PCP - General 02 Team Status: Active Member Role Status Dates Dr. Eileen Nair DO Family Provider Active Catina Alford DO Primary Care Provider Active Team Status: Inactive Member Role Status Dates Dr. Eileen Nair DO Primary Care Provider, Referring Provider Active Dr. Tim Lawrence , DO Attending Provider Active Team Status: Inactive Member Role Status Dates Dr. Eileen Nair DO Primary Care Provider, Referring Provider Active Kael Bah PA, PA Attending Provider Active Team Status: Inactive Member Role Status Dates Dr. Eileen Nair DO Primary Care Provider, Referring Provider Active Kaveh Saunders PA, PA Attending Provider Active Team Status: Active Member Role Status Dates Dr. Eileen Nair DO Primary Care Provider Active Dr. Jasper Pruett MD Attending Provider Active Team Status: Inactive Member Role Status Dates Catina Alford DO Primary Care Provider Active Dr. Tim Lawrence , Attending Provider Active Knot Tying Operator Relationship Specialty Start Date End Date Eileen Nair DO [address] [address] [place] [address] PCP - General 02 Team Status: Inactive Member Role Status Dates Catina Alford DO Primary Care Provider Active Dr. Tim Lawrence , Attending Provider, Referring Provider Active Knot Tying Operator Relationship Specialty Start Date End Date Eileen Nair DO [address] [address] [place] [address] PCP - General 02 Team Status: Inactive Member Role Status Dates Catina Alford DO Primary Care Provider Active Dr. Anthony Franco , Emergency Provider Active Knot Tying Operator Relationship Specialty Start Date End Date Eileen Nair DO [address] [address] [address] [facility] [place] [address] PCP - General 02 Team Status: Inactive Member Role Status Dates Catina Alford , Primary Care Provider Active Dr. Anthony Franco , DO Attending Provider, Emergency P marco Active Team Status: Active Member Role Status Dates Catina Alford , Primary Care Provider Active Dr. Tim Lawrence , Attending Provider, Referring Provider Active Team Status: Inactive Member Role Status Dates Catina Alford , Primary Care Provider Active Estiven Mayorga MD Emergency Provider Active Team Status: Inactive Member Role Status Dates Catina Alford , Primary Care Provider Active Estiven Mayorga MD Attending Provider, Emergency Provid er Active Team Status: Inactive Member Role Status Dates Catina Alford , Primary Care Provider Active Carly Callejas MD Attending Provider, Referring Provide r Active Dr. Tim Lawrence , Other Provider Active Team Status: Inactive Member Role Status Dates Catina Alford , Primary Care Provider Active Dr. Francis Cunningham , Referring Provider, Emergency Provider Active Team Status: Active Member Role Status Dates Dr. Eileen Nair , Family Provider Active Carly Callejas MD Primary Care Provider Active Team Status: Inactive Member Role Status Dates Dr. Tim Lawrence , Attending Provider Active Carly Callejas MD Primary Care Provider, Referring Prov ider Active Team Status: Inactive Member Role Status Dates Catina Alford , Primary Care Provider Active Dr. Francis Cunningham , Attending Provid er, Referring Provider, Emergency Provider Active Knot Tying Operator Relationship Specialty Start Date End Date Padmini Domingo RD [address] [place] [address] Registered Dietitian Nutrition 09/29/23 Team Status: Inactive Member Role Status Dates Carly Callejas MD Primary Care Provide r, Attending Provider, Referring Provider Active Knot Tying Operator Relationship Specialty Start Date End Date Padmini Domingo RD [address] [place] [address] Registered Dietitian Nutrition 09/29/23 Knot Tying Operator Relationship Specialty Start Date End Date Carly Callejas MD [facility] [place] [address] PCP - General Internal Medicine 11/14/[address], [place] [address] Registered Dietitian Nutrition 09/29/23 Knot Tying Operator Relationship Specialty Start Date End Date Carly Callejas MD [address] [place] [address] PCP - General Internal Medicine 11/14/[address], [place] [address] Registered Dietitian Nutrition 09/29/23 Knot Tying Operator Relationship Specialty Start Date End Date Carly Callejas MD [address] [facility] [address] [place] [address] PCP - General Internal Medicine 11/14/[address], [place] [address] Registered Dietitian Nutrition 09/29/23 Knot Tying Operator Relationship Specialty Start Date End Date Carly Callejas MD [address] [place] [address] PCP - General Internal Medicine 11/14/[address], [place] [address] Registered Dietitian Nutrition 09/29/23 Knot Tying Operator Relationship Specialty Start Date End Date Carly Callejas MD [address] [place] [address] PCP - General Internal Medicine 11/14/[address], [place] [address] Registered Dietitian Nutrition 09/29/23 Knot Tying Operator Relationship Specialty Start Date End Date Carly Callejas MD [address] [facility] [address] [place] [address] PCP - General Internal Medicine 11/14/[address] [place] [address] Registered Dietitian Nutrition 09/29/23 Knot Tying Operator Relationship Specialty Start Date End Date Carly Callejas MD [address] [facility] [address] [place] [address] PCP - General Internal Medicine 11/14/[address] [place] [address] Registered Dietitian Nutrition 09/29/23 Knot Tying Operator Relationship Specialty Start Date End Date Carly Callejas MD [address] [facility] [address] [place] [address] PCP - General Internal Medicine 11/14/[address] [place] [address] Registered Dietitian Nutrition 09/29/23 Knot Tying Operator Relationship Specialty Start Date End Date Carly Callejas MD [address] [facility] [address] [place] [address] PCP - General Internal Medicine 11/14/[address] [place] [address] Registered Dietitian Nutrition 09/29/23 Knot Tying Operator Relationship Specialty Start Date End Date Carly Callejas MD [address] [facility] [address] [place], [place] [address] PCP - General Internal Medicine 11/14/[address] [place] [address] Registered Dietitian Nutrition 09/29/23 Knot Tying Operator Relationship Specialty Start Date End Date Carly Callejas MD [address] [facility] [address] [place] [address] PCP - General Internal Medicine 11/14/[address] [place] [address], [place] [address] Registered Dietitian Nutrition 09/29/23 Knot Tying Operator Relationship Specialty Start Date End Date Carly Callejas MD [address] [facility] [address] [place] [address] PCP - General Internal Medicine 11/14/[address] [place] [address], [place] [address] Registered Dietitian Nutrition 09/29/23 Knot Tying Operator Relationship Specialty Start Date End Date Carly Callejas MD [address] [facility] [address] [place] [address] PCP - General Internal Medicine 11/14/[address] [place] [address] Registered Dietitian Nutrition 09/29/23 Knot Tying Operator Relationship Specialty Start Date End Date Carly Callejas MD [address] [facility] [address] [place], [place] [id number] PCP - General Internal Medicine 11/14/[address] [place] [address] Registered Dietitian Nutrition 09/29/23 Knot Tying Operator Relationship Specialty Start Date End Date Carly Callejas MD [address] [facility] [address] [place] [address] PCP - General Internal Medicine 11/14/[address], [place] [address] Registered Dietitian Nutrition 09/29/23 Knot Tying Operator Relationship Specialty Start Date End Date Carly Callejas MD [address] [facility] [address] [place] [address] PCP - General Internal Medicine 11/14/[address], [place] [address] Registered Dietitian Nutrition 09/29/23 Knot Tying Operator Relationship Specialty Start Date End Date Carly Callejas MD [address] [facility] [address] [place] [address] PCP - General Internal Medicine 11/14/[address] [place] [address] Registered Dietitian Nutrition 09/29/23 Knot Tying Operator Relationship Specialty Start Date End Date Carly Callejas MD [address] [facility] [address] [place] [address] PCP - General Internal Medicine 11/14/[address] [place] [address] Registered Dietitian Nutrition 09/29/23 Knot Tying Operator Relationship Specialty Start Date End Date Carly Callejas MD [address] [facility] [address] [place] [address] PCP - General Internal Medicine 11/14/[address] [place] [address] Registered Dietitian Nutrition 09/29/23 Knot Tying Operator Relationship Specialty Start Date End Date Carly Calleajs MD [address] [facility] [address] [place] [address] PCP - General Internal Medicine 11/14/[address] [place] [address] Registered Dietitian Nutrition 09/29/23 Knot Tying Operator Relationship Specialty Start Date End Date Carly Callejas MD [address] [facility] [address] [place] [address] PCP - General Internal Medicine 11/14/[address] [place] [address] Registered Dietitian Nutrition 09/29/23 Knot Tying Operator Relationship Specialty Start Date End Date Carly Callejas MD [address] [place] [address] PCP - General Internal Medicine 11/14/[address] [place] [address] Registered Dietitian Nutrition 09/29/23 Knot Tying Operator Relationship Specialty Start Date End Date Carly Callejas MD [address] [place] [address] PCP - General Internal Medicine 11/14/[address] [place] [address] Registered Dietitian Nutrition 09/29/23 Knot Tying Operator Relationship Specialty Start Date End Date Carly Callejas MD [address] [facility] [address] [place] [address] PCP - General Internal Medicine 11/14/[address] [place] [address], [place] [address] Registered Dietitian Nutrition 09/29/23 Knot Tying Operator Relationship Specialty Start Date End Date Carly Callejas MD [address] [facility] [address] [place] [address] PCP - General Internal Medicine 11/14/[address] [place] [address] Registered Dietitian Nutrition 09/29/23 Knot Tying Operator Relationship Specialty Start Date End Date Carly Callejas MD [address] [facility] [address] [place] [address] PCP - General Internal Medicine 11/14/[address] [place] [address], [place] [address] Registered Dietitian Nutrition 09/29/23 Knot Tying Operator Relationship Specialty Start Date End Date Carly Callejas MD [address] [facility] [address] [place], [place] [id number] PCP - General Internal Medicine 11/14/[address], [place] [address] Registered Dietitian Nutrition 09/29/23 Knot Tying Operator Relationship Specialty Start Date End Date Carly Callejas MD [address] [facility] [address] [place] [address] PCP - General Internal Medicine 11/14/[address] [place] [address] Registered Dietitian Nutrition 09/29/23 Knot Tying Operator Relationship Specialty Start Date End Date Carly Callejas MD [address] [facility] [address] [place] [address] PCP - General Internal Medicine 11/14/[address], [place] [address] Registered Dietitian Nutrition 09/29/23 Knot Tying Operator Relationship Specialty Start Date End Date Carly Callejas MD [address] [facility] [address] [place] [address] PCP - General Internal Medicine 11/14/[address], [place] [address] Registered Dietitian Nutrition 09/29/23 Knot Tying Operator Relationship Specialty Start Date End Date Carly Callejas MD [address] [facility] [address] [place] [address] PCP - General Internal Medicine 11/14/[address] [place] [address] Registered Dietitian Nutrition 09/29/23 Knot Tying Operator Relationship Specialty Start Date End Date Carly Callejas MD [address] [facility] [address] [place], [place] [address] PCP - General Internal Medicine 11/14/[address] [place] [address], [place] [address] Registered Dietitian Nutrition 09/29/23 Knot Tying Operator Relationship Specialty Start Date End Date Carly Callejas MD [address] [facility] [address] [place] [address] PCP - General Internal Medicine 11/14/[address] [place] [address] Registered Dietitian Nutrition 09/29/23 Knot Tying Operator Relationship Specialty Start Date End Date Carly Callejas MD [address] [facility] [address] [place] [address] PCP - General Internal Medicine 11/14/[address] [place] [address], [place] [address] Registered Dietitian Nutrition 09/29/23 Knot Tying Operator Relationship Specialty Start Date End Date Carly Callejas MD [address] [facility] [address] [place] [address] PCP - General Internal Medicine 11/14/[address] [place] [address] Registered Dietitian Nutrition 09/29/23 Knot Tying Operator Relationship Specialty Start Date End Date Carly Callejas MD [address] [facility] [address] [place] [address] PCP - General Internal Medicine 11/14/[address] [place] [address], [place] [address] Registered Dietitian Nutrition 09/29/23 Knot Tying Operator Relationship Specialty Start Date End Date Carly Callejas MD [address] [facility] [address] [place] [address] PCP - General Internal Medicine 11/14/[address] [place] [address], [place] [address] Registered Dietitian Nutrition 09/29/23 Knot Tying Operator Relationship Specialty Start Date End Date Carly Callejas MD [address] [facility] [address] [place] [address] PCP - General Internal Medicine 11/14/[address] [place] [address], [place] [address] Registered Dietitian Nutrition 09/29/23 Knot Tying Operator Relationship Specialty Start Date End Date Carly Callejas MD [address] [facility] [address] [place] [address] PCP - General Internal Medicine 11/14/[address] [place] [address], [place] [address] Registered Dietitian Nutrition 09/29/23 Knot Tying Operator Relationship Specialty Start Date End Date Carly Callejas MD [address] [facility] [address] [place] [address] PCP - General Internal Medicine 11/14/[address], [place] [address] Registered Dietitian Nutrition 09/29/23 Knot Tying Operator Relationship Specialty Start Date End Date Carly Callejas MD [address] [place], [place] [address] PCP - General Internal Medicine 11/14/[address] [place] [address] Registered Dietitian Nutrition 09/29/23 Knot Tying Operator Relationship Specialty Start Date End Date Carly Callejas MD [address] [facility] [address] [place] [address] PCP - General Internal Medicine 11/14/[address] [place] [address] Registered Dietitian Nutrition 09/29/23 Knot Tying Operator Relationship Specialty Start Date End Date Padmini Domingo RD [address] [place] [address] Registered Dietitian Nutrition 09/29/23 Knot Tying Operator Relationship Specialty Start Date End Date Carly Callejas MD [address] [facility] [address] [place] [address] PCP - General Internal Medicine 11/14/[address], [place] [address] Registered Dietitian Nutrition 09/29/23 Knot Tying Operator Relationship Specialty Start Date End Date Carly Callejas MD [address] [facility] [address] [place], [place] [address] PCP - General Internal Medicine 11/14/[address], [place] [address] Registered Dietitian Nutrition 09/29/23 Knot Tying Operator Relationship Specialty Start Date End Date Carly Callejas MD [address] [place] [address] PCP - General Internal Medicine 11/14/[address], [place] [address] Registered Dietitian Nutrition 09/29/23 Knot Tying Operator Relationship Specialty Start Date End Date Carly Callejas MD [address] [facility] [address] [place] [address] PCP - General Internal Medicine 11/14/[address], [place] [address] Registered Dietitian Nutrition 09/29/23 Knot Tying Operator Relationship Specialty Start Date End Date Carly Callejas MD [address] [place] [address] PCP - General Internal Medicine 11/14/[address], [place] [address] Registered Dietitian Nutrition 09/29/23 Knot Tying Operator Relationship Specialty Start Date End Date Carly Callejas MD [address] [place] [address] PCP - General Internal Medicine 11/14/[address], [place] [address] Registered Dietitian Nutrition 09/29/23 Knot Tying Operator Relationship Specialty Start Date End Date Carly Callejas MD [address] [facility] [address] [place] [address] PCP - General Internal Medicine 11/14/[address] [place] [address] Registered Dietitian Nutrition 09/29/23 Knot Tying Operator Relationship Specialty Start Date End Date Carly Callejas MD [address] [facility] [address] [place] [address] PCP - General Internal Medicine 11/14/[address] [place] [address] Registered Dietitian Nutrition 09/29/23 Knot Tying Operator Relationship Specialty Start Date End Date Carly Callejas MD [address] [facility] [address] [place] [address] PCP - General Internal Medicine 11/14/[address] [place] [address] Registered Dietitian Nutrition 09/29/23 Knot Tying Operator Relationship Specialty Start Date End Date Carly Callejas MD [address] [facility] [address] [place] [address] PCP - General Internal Medicine 11/14/[address] [place] [address] Registered Dietitian Nutrition 09/29/23 Knot Tying Operator Relationship Specialty Start Date End Date Carly Callejas MD [address] [place] [address] PCP - General Internal Medicine 11/14/[address] [place] [address] Registered Dietitian Nutrition 09/29/23 Team Status: Active Member Role Status Hans Callejas MD Primary Care Provider Active Team Status: Inactive Member Role Status Hans Callejas MD Primary Care Provider Active St art: May 27, 2024 End: May 27, 2024 TAMARA KUMAR Attending Provider Active Start: May 27, 2024 End: May 27, 2024 Team Status: Inactive Member Role Status Hans Callejas MD Primary Care Provider Active St art: June 14, 2024 End: June 14, 2024 Carly Callejas MD Referring Provider Active Start : June 14, 2024 End: June 14, 2024 Dr. Natalee Murillo DC Attending Provider Active S tart: June 14, 2024 End: June 14, 2024 Team Status: Inactive Member Role Status Hans Callejas MD Primary Care Provider Active St art: June 15, 2024 End: June 15, 2024 Dr. Mu Burroughs MD Attending Provider Active S tart: June 15, 2024 End: June 15, 2024 Team Status: Inactive Member Role Status Hans Callejas MD Primary Care Provider Active St art: June 22, 2024 End: June 22, 2024 Carly Callejas MD Referring Provider Active Start : June 22, 2024 End: June 22, 2024 Dr. Natalee Murillo DC Attending Provider Active S tart: June 22, 2024 End: June 22, 2024 Team Status: Active Member Role Status Hans Callejas MD Primary Care Provider Active St art: June 23, 2024 Dr. Natalee Murillo DC Attending Provider Active S tart: June 23, 2024 Team Status: Inactive Member Role Status Hans Callejas MD Primary Care Provider Active St art: July 01, 2024 End: July 01, 2024 Carly Callejas MD Attending Provider Active Start : July 01, 2024 End: July 01, 2024 Carly Callejas MD Referring Provider Active Start : July 01, 2024 End: July 01, 2024 Team Status: Inactive Member Role Status Hans Callejas MD Primary Care Provider Active St art: July 15, 2024 End: July 15, 2024 Dr. Natalee Murillo DC Attending Provider Active S tart: July 15, 2024 End: July 15, 2024 Dr. Natalee Murillo DC Referring Provider Active S tart: July 15, 2024 End: July 15, 2024 Team Status: Inactive Member Role Status Hans Callejas MD Primary Care Provider Active St art: July 15, 2024 End: July 15, 2024 Carly Callejas MD Referring Provider Active Start : July 15, 2024 End: July 15, 2024 Dr. Natalee Murillo DC Attending Provider Active S tart: July 15, 2024 End: July 15, 2024 Team Status: Inactive Member Role Status Hans Callejas MD Primary Care Provider Active St art: July 27, 2024 End: July 27, 2024 Carly Callejas MD Attending Provider Active Start : July 27, 2024 End: July 27, 2024 Carly Callejas MD Referring Provider Active Start : July 27, 2024 End: July 27, 2024 Team Status: Inactive Member Role Status Hans Callejas MD Primary Care Provider Active St art: July 29, 2024 End: July 29, 2024 JOSUE KUMAR Attending Provider Active Start: July 29, 2024 End: July 29, 2024 JOSUE KUMAR Referring Provider Active Start: July 29, 2024 End: July 29, 2024 Team Status: Inactive Member Role Status Hans Callejas MD Primary Care Provider Active St art: August 04, 2024 End: August 04, 2024 Carly Callejas MD Attending Provider Active Start : August 04, 2024 End: August 04, 2024 Carly Callejas MD Referring Provider Active Start : August 04, 2024 End: August 04, 2024 Team Status: Inactive Member Role Status Hans Callejas MD Primary Care Provider Active St art: August 13, 2024 End: August 13, 2024 Carly Callejas MD Referring Provider Active Start : August 13, 2024 End: August 13, 2024 Dr. Jovana Calvert MD Attending Provider Active Start: August 13, 2024 End: August 13, 2024 Team Status: Inactive Member Role Status Hans Callejas MD Primary Care Provider Active St art: August 13, 2024 End: August 13, 2024 Dr. Jovana Calvert MD Attending Provider Active Start: August 13, 2024 End: August 13, 2024 Dr. Jovana Calvert MD Referring Provider Active Start: August 13, 2024 End: August 13, 2024 Team Status: Inactive Member Role Status Hans Callejas MD Primary Care Provider Active St art: August 26, 2024 End: August 26, 2024 Carly Callejas MD Referring Provider Active Start : August 26, 2024 End: August 26, 2024 Dr. Natalee Murillo , RANCHO Attending Provider Active S tart: August 26, 2024 End: August 26, 2024 Team Status: Inactive Member Role Status Hans Callejas MD Primary Care Provider Active St art: September 10, 2024 End: September 10, 2024 Carly Callejas MD Attending Provider Active Start : September 10, 2024 End: September 10, 2024 Carly Callejas MD Referring Provider Active Start : September 10, 2024 End: September 10, 2024 Team Status: Inactive Member Role Status Hans Callejas MD Primary Care Provider Active St art: September 19, 2024 End: September 19, 2024 Carly Callejas MD Referring Provider Active Start : September 19, 2024 End: September 19, 2024 [facility] Attending Provider Active Start: [facility] 2024 End: September 19, 2024 Knot Tying Operator Relationship Specialty Start Date End Date Carly Callejas MD [address] [facility] [address] [place] [address] PCP - General Internal Medicine 11/14/[address] [place] [address] Registered Dietitian Nutrition 09/29/23 Knot Tying Operator Relationship Specialty Start Date End Date Carly Callejas MD [address] [place], [place] [address] PCP - General Internal Medicine 11/14/[address] [place] [address], [place] [address] Registered Dietitian Nutrition 09/29/23 Knot Tying Operator Relationship Specialty Start Date End Date Carly Callejas MD [address] [place], [place] [id number] PCP - General Internal Medicine 11/14/[address] [place] [address] Registered Dietitian Nutrition 09/29/23 Knot Tying Operator Relationship Specialty Start Date End Date Carly Callejas MD [address] [place], [place] [id number] PCP - General Internal Medicine 11/14/[address] [place] [address], [place] [address] Registered Dietitian Nutrition 09/29/23 Team Status: Inactive Member Role Status Hans Callejas MD Primary Care Provider Active St art: September 19, 2024 End: September 19, 2024 Carly Callejas MD Referring Provider Active Start : September 19, 2024 End: September 19, 2024 Agustín Manrique LEAD JAVA DEVELOPER ARCHITECT, LEAD JAVA DEVELOPER ARCHITECT-C Attending Provider Active S tart: September 19, 2024 End: September 19, 2024 Team Status: Inactive Member Role Status Hans Callejas MD Primary Care Provider Active St art: November 13, 2024 End: November 13, 2024 Dr. Jani Soto , Emergency Provider Active Start : November 13, 2024 End: November 13, 2024 Knot Tying Operator Relationship Specialty Start Date End Date Carly Callejas MD [address] [facility] [address] [place] [address] PCP - General Internal Medicine 11/14/[address], [place] [id number] Registered Dietitian Nutrition 09/29/23 Team Status: Inactive Member Role Status Dates Carly Callejas MD Primary Care Provider Active St art: November 13, 2024 End: November 13, 2024 Dr. Jani Soto , DO Attending Provider Active Start : November 13, 2024 End: November 13, 2024 Dr. Jani Soto , DO Emergency Provider Active Start : November 13, 2024 End: November 13, 2024 Team Status: Inactive Member Role Status Dates Carly Callejas MD Primary Care Provider Active St art: November 16, 2024 End: November 16, 2024 Carly Callejas MD Attending Provider Active Start : November 16, 2024 End: November 16, 2024 Carly Callejas MD Referring Provider Active Start : November 16, 2024 End: November 16, 2024 Knot Tying Operator Relationship Specialty Start Date End Date Carly Callejas MD [address] [facility] [address] [place] [address] PCP - General Internal Medicine 11/14/[address] [place] [address] Registered Dietitian Nutrition 09/29/23 Team Status: Inactive Member Role Status Dates Carly Callejas MD Primary Care Provider Active St art: November 26, 2024 End: November 26, 2024 Sobia Sarah CNM Attending Provider Active S tart: November 26, 2024 End: November 26, 2024 Sobia Sarah CNM Referring Provider Active S tart: November 26, 2024 End: November 26, 2024 Knot Tying Operator Relationship Specialty Start Date End Date Carly Callejas MD [address] [facility] [address] [place] [address] PCP - General Internal Medicine 11/14/[address] [place] [address] Registered Dietitian Nutrition 09/29/23 Team Status: Active Member Role Status Hans Callejas MD Primary Care Provider Active St art: December 06, 2024 AHILA, NIMESH Attending Provider Active Sta rt: December 06, 2024 AHILA, NIMESH Referring Provider Active Sta rt: December 06, 2024 Team Status: Inactive Member Role Status Hans Callejas MD Primary Care Provider Active St art: December 07, 2024 End: December 07, 2024 Carly Callejas MD Referring Provider Active Start : December 07, 2024 End: December 07, 2024 ELDER Cain Attending Provider Active Start: December 07, 2024 End: December 07, 2024 Team Status: Inactive Member Role Status Hans Callejas MD Primary Care Provider Active St art: December 08, 2024 End: December 08, 2024 Dr. Bertha Snyder DO Attending Provider Activ e Start: December 08, 2024 End: December 08, 2024 Dr. Bertha Snyder DO Referring Provider Activ e Start: December 08, 2024 End: December 08, 2024 Team Status: Inactive Member Role Status Hans Callejas MD Primary Care Provider Active St art: December 06, 2024 End: December 06, 2024 AHILA, NIMESH Attending Provider Active Sta rt: December 06, 2024 End: December 06, 2024 AHILA, NIMESH Referring Provider Active Sta rt: December 06, 2024 End: December 06, 2024 Team Status: Inactive Member Role Status Hans Callejas MD Primary Care Provider Active St art: December 14, 2024 End: December 14, 2024 Dr. Bertha Snyder DO Attending Provider Activ e Start: December 14, 2024 End: December 14, 2024 Dr. Bertha Snyder DO Referring Provider Activ e Start: December 14, 2024 End: December 14, 2024 Team Status: Inactive Member Role Status Hans Callejas MD Primary Care Provider Active St art: December 22, 2024 End: December 22, 2024 Dr. Bertha Snyder DO Attending Provider Activ e Start: December 22, 2024 End: December 22, 2024 Dr. Bertha Snyder DO Referring Provider Activ e Start: December 22, 2024 End: December 22, 2024 Team Status: Active Member Role/Relationship Status Hans Callejas MD Primary Care Provider Active Team Status: Inactive Member Role/Relationship Status Hans Callejas MD Primary Care Provider Active St art: September 10, 2024 End: September 10, 2024 Carly Callejas MD Attending Provider Active Start : September 10, 2024 End: September 10, 2024 Carly Callejas MD Referring Provider Active Start : September 10, 2024 End: September 10, 2024 Team Status: Inactive Member Role/Relationship Status Hans Callejas MD Primary Care Provider Active St art: September 19, 2024 End: September 19, 2024 Carly Callejas MD Referring Provider Active Start : September 19, 2024 End: September 19, 2024 Agustín Manrique LEAD JAVA DEVELOPER ARCHITECT, LEAD JAVA DEVELOPER ARCHITECT-C Attending Provider Active S tart: September 19, 2024 End: September 19, 2024 Team Status: Inactive Member Role/Relationship Status Hans Callejas MD Primary Care Provider Active St art: November 13, 2024 End: November 13, 2024 Dr. Jani Soto DO Attending Provider Active Start : November 13, 2024 End: November 13, 2024 Dr. Jani Soto DO Emergency Provider Active Start : November 13, 2024 End: November 13, 2024 Team Status: Inactive Member Role/Relationship Status Hans Callejas MD Primary Care Provider Active St art: November 16, 2024 End: November 16, 2024 Carly Callejas MD Attending Provider Active Start : November 16, 2024 End: November 16, 2024 Carly Callejas MD Referring Provider Active Start : November 16, 2024 End: November 16, 2024 Team Status: Inactive Member Role/Relationship Status Hans Callejas MD Primary Care Provider Active St art: November 26, 2024 End: November 26, 2024 Sobia Sarah CNM Attending Provider Active S tart: November 26, 2024 End: November 26, 2024 Sobia Sarah CNM Referring Provider Active S tart: November 26, 2024 End: November 26, 2024 Team Status: Inactive Member Role/Relationship Status Dates Carly Callejas MD Primary Care Provider Active St art: December 06, 2024 End: December 06, 2024 NIMESH RIOS Attending Provider Active Sta rt: December 06, 2024 End: December 06, 2024 AHILANIMESH Referring Provider Active Sta rt: December 06, 2024 End: December 06, 2024 Team Status: Inactive Member Role/Relationship Status Dates Carly Callejas MD Primary Care Provider Active St art: December 07, 2024 End: December 07, 2024 Carly Callejas MD Referring Provider Active Start : December 07, 2024 End: December 07, 2024 ELDER Cain Attending Provider Active Start: December 07, 2024 End: December 07, 2024 Team Status: Inactive Member Role/Relationship Status Dates Carly Callejas MD Primary Care Provider Active St art: December 08, 2024 End: December 08, 2024 Dr. Bertha Snyder DO Attending Provider Activ e Start: December 08, 2024 End: December 08, 2024 Dr. Bertha Snyder DO Referring Provider Activ e Start: December 08, 2024 End: December 08, 2024 Team Status: Inactive Member Role/Relationship Status Dates Carly Callejas MD Primary Care Provider Active St art: December 14, 2024 End: December 14, 2024 Dr. Bertha Snyder DO Attending Provider Activ e Start: December 14, 2024 End: December 14, 2024 Dr. Bertha Snyder DO Referring Provider Activ e Start: December 14, 2024 End: December 14, 2024 Team Status: Inactive Member Role/Relationship Status Dates Carly Callejas MD Primary Care Provider Active St art: December 22, 2024 End: December 22, 2024 Dr. Bertha Snyder DO Attending Provider Activ e Start: December 22, 2024 End: December 22, 2024 Dr. Bertha Snyder DO Referring Provider Activ e Start: December 22, 2024 End: December 22, 2024 Team Status: Inactive Member Role/Relationship Status Dates Carly Callejas MD Primary Care Provider Active St art: December 29, 2024 End: December 29, 2024 Dr. Bertha Snyder , Attending Provider Activ e Start: December 29, 2024 End: December 29, 2024 Dr. Berhta Snyder , DO Referring Provider Activ e Start: December 29, 2024 End: December 29, 2024 Knot Tying Operator Relationship Specialty Start Date End Date Carly Callejas MD [address] [facility] [address] [place] [address] PCP - General Internal Medicine 11/14/[address] [place] [id number] Registered Dietitian Nutrition 09/29/23 Knot Tying Operator Relationship Specialty Start Date End Date Carly Callejas MD [address] [facility] [address] [place] [address] PCP - General Internal Medicine 11/14/[address] [facility] [place] [address] Registered Dietitian Nutrition 09/29/23 Team Status: Inactive Member Role/Relationship Status Dates Carly Callejas MD Primary Care Provider Active St art: November 13, 2024 End: November 13, 2024 Dr. Jani Soto DO Attending Provider Active Start : November 13, 2024 End: November 13, 2024 Dr. Jani Soto , Emergency Provider Active Start : November 13, 2024 End: November 13, 2024 Team Status: Inactive Member Role/Relationship Status Dates Carly Callejas MD Primary Care Provider Active St art: November 16, 2024 End: November 16, 2024 Carly Callejas MD Attending Provider Active Start : November 16, 2024 End: November 16, 2024 Carly Callejas MD Referring Provider Active Start : November 16, 2024 End: November 16, 2024 Team Status: Inactive Member Role/Relationship Status Dates Carly Callejas MD Primary Care Provider Active St art: November 26, 2024 End: November 26, 2024 Sobia Sarah CNM Attending Provider Active S tart: November 26, 2024 End: November 26, 2024 Sobia Sarah CNM Referring Provider Active S tart: November 26, 2024 End: November 26, 2024 Team Status: Inactive Member Role/Relationship Status Hans aCllejas MD Primary Care Provider Active St art: December 06, 2024 End: December 06, 2024 AHINIMESH POTTER Attending Provider Active Sta rt: December 06, 2024 End: December 06, 2024 AHILA, NIMESH Referring Provider Active Sta rt: December 06, 2024 End: December 06, 2024 Team Status: Inactive Member Role/Relationship Status Hans Callejas MD Primary Care Provider Active St art: December 07, 2024 End: December 07, 2024 Carly Callejas MD Referring Provider Active Start : December 07, 2024 End: December 07, 2024 ELDER Cain Attending Provider Active Start: December 07, 2024 End: December 07, 2024 Team Status: Inactive Member Role/Relationship Status Hans Callejas MD Primary Care Provider Active St art: December 08, 2024 End: December 08, 2024 Dr. Bertha Snyder DO Attending Provider Activ e Start: December 08, 2024 End: December 08, 2024 Dr. Bertha Snyder DO Referring Provider Activ e Start: December 08, 2024 End: December 08, 2024 Team Status: Inactive Member Role/Relationship Status Hans Callejas MD Primary Care Provider Active St art: December 14, 2024 End: December 14, 2024 Dr. Bertha Snyder DO Attending Provider Activ e Start: December 14, 2024 End: December 14, 2024 Dr. Bertha Snyder DO Referring Provider Activ e Start: December 14, 2024 End: December 14, 2024 Team Status: Inactive Member Role/Relationship Status Hans Callejas MD Primary Care Provider Active St art: December 22, 2024 End: December 22, 2024 Dr. Bertha Snyder DO Attending Provider Activ e Start: December 22, 2024 End: December 22, 2024 Dr. Bertha Snyder DO Referring Provider Activ e Start: December 22, 2024 End: December 22, 2024 Team Status: Inactive Member Role/Relationship Status Dates Carly Callejas MD Primary Care Provider Active St art: December 29, 2024 End: December 29, 2024 Dr. Bertha Snyder DO Attending Provider Activ e Start: December 29, 2024 End: December 29, 2024 Dr. Bertha Snyder DO Referring Provider Activ e Start: December 29, 2024 End: December 29, 2024 Team Status: Inactive Member Role/Relationship Status Dates Carly Callejas MD Primary Care Provider Active St art: January 20, 2025 End: January 20, 2025 Dr. Bertha Snyder DO Attending Provider Activ e Start: January 20, 2025 End: January 20, 2025 Knot Tying Operator Relationship Specialty Start Date End Date Carly Callejas MD [address] [facility] [address] [place], [place] [id number] PCP - General Internal Medicine 11/14/[address] [place] [id number] Registered Dietitian Nutrition 09/29/23 Knot Tying Operator Relationship Specialty Start Date End Date Carly Callejas MD [address] [facility] [address] [place], [place] [id number] PCP - General Internal Medicine 11/14/[address], [place] [address] Registered Dietitian Nutrition 09/29/23 Knot Tying Operator Relationship Specialty Start Date End Date Carly Callejas MD [address] [facility] [address] [place], [place] [id number] PCP - General Internal Medicine 11/14/[address] [place] [address] Registered Dietitian Nutrition 09/29/23 Team Status: Inactive Member Role/Relationship Status Dates Carly Callejas MD Primary Care Provider Active St art: February 22, 2025 End: February 22, 2025 Carly Callejas MD Attending Provider Active Start : February 22, 2025 End: February 22, 2025 Carly Callejas MD Referring Provider Active Start : February 22, 2025 End: February 22, 2025 Team Status: Inactive Member Role/Relationship Status Dates Carly Callejas MD Primary Care Provider Active St art: February 28, 2025 End: February 28, 2025 Carly Callejas MD Referring Provider Active Start : February 28, 2025 End: February 28, 2025 Sobia Sarah CNM Attending Provider Active S tart: February 28, 2025 End: February 28, 2025 Knot Tying Operator Relationship Specialty Start Date End Date Carly Callejas MD [address] [facility] [address] [place] [address] PCP - General Internal Medicine 11/14/[address] [place] [address] Registered Dietitian Nutrition 09/29/23 Knot Tying Operator Relationship Specialty Start Date End Date Carly Callejas MD [address] [address] PCP - General Internal Medicine 11/14/[address] [place] [id number] Registered Dietitian Nutrition 09/29/23 Team Status: Inactive Member Role/Relationship Status Dates Carly Callejas MD Primary Care Provider Active St art: February 28, 2025 End: February 28, 2025 Sobia Sarah CNM Attending Provider Active S tart: February 28, 2025 End: February 28, 2025 Sobia Tyrel , CNM Referring Provider Active S tart: February 28, 2025 End: February 28, 2025 Knot Tying Operator Relationship Specialty Start Date End Date Carly Callejas MD [address] [facility] [address] [place] [address] PCP - General Internal Medicine 11/14/[address] [place] [address] Registered Dietitian Nutrition 09/29/23 Knot Tying Operator Relationship Specialty Start Date End Date Carly Callejas MD [address] [facility] [address] [place], [place] [address] PCP - General Internal Medicine 11/14/[address] [place] [address] Registered Dietitian Nutrition 09/29/23 Knot Tying Operator Relationship Specialty Start Date End Date Carly Callejas MD [address] [facility] [address] [place] [address] PCP - General Internal Medicine 11/14/[address] [place] [address] Registered Dietitian Nutrition 09/29/23 Knot Tying Operator Relationship Specialty Start Date End Date Carly Callejas MD [address] [facility] [address] [place], [place] [id number] PCP - General Internal Medicine 11/14/[address] [place] [address] Registered Dietitian Nutrition 09/29/23 Knot Tying Operator Relationship Specialty Start Date End Date Carly Callejas MD [address] [facility] [address] [place] [address] PCP - General Internal Medicine 11/14/[address] [facility] [place] [address] Registered Dietitian Nutrition 09/29/23 Knot Tying Operator Relationship Specialty Start Date End Date Carly Callejas MD [address] [facility] [address] [place] [address] PCP - General Internal Medicine 11/14/[address] [place] [address] Registered Dietitian Nutrition 09/29/23 Team Status: Active Member Role/Relationship Status Dates Carly Callejas MD Primary care physician Active Team Status: Inactive Member Role/Relationship Status Dates Carly Callejas MD Primary care physician Active S tart: December 14, 2024 End: December 14, 2024 Dr. Bertha Snyder , DO Attending physician Acti ve Start: December 14, 2024 End: December 14, 2024 Dr. Bertha Snyder DO Referring Provider Activ e Start: December 14, 2024 End: December 14, 2024 Team Status: Inactive Member Role/Relationship Status Dates Carly Callejas MD Primary care physician Active S tart: December 22, 2024 End: December 22, 2024 Dr. Bertha Snyder DO Attending physician Acti ve Start: December 22, 2024 End: December 22, 2024 Dr. Bertha Snyder DO Referring Provider Activ e Start: December 22, 2024 End: December 22, 2024 Team Status: Inactive Member Role/Relationship Status Dates Carly Callejas MD Primary care physician Active S tart: December 29, 2024 End: December 29, 2024 Dr. Bertha Snyder DO Attending physician Acti ve Start: December 29, 2024 End: December 29, 2024 Dr. Bertha Snyder DO Referring Provider Activ e Start: December 29, 2024 End: December 29, 2024 Team Status: Inactive Member Role/Relationship Status Hans Callejas MD Primary care physician Active S tart: January 20, 2025 End: January 20, 2025 Dr. Bertha Snyder DO Attending physician Acti ve Start: January 20, 2025 End: January 20, 2025 Team Status: Inactive Member Role/Relationship Status Hans Callejas MD Primary care physician Active S tart: February 22, 2025 End: February 22, 2025 Carly Callejas MD Attending physician Active Star t: February 22, 2025 End: February 22, 2025 Carly Callejas MD Referring Provider Active Start : February 22, 2025 End: February 22, 2025 Team Status: Inactive Member Role/Relationship Status Hans Callejas MD Primary care physician Active S tart: February 28, 2025 End: February 28, 2025 Carly Callejas MD Referring Provider Active Start : February 28, 2025 End: February 28, 2025 Sobia Sarah CNM Attending physician Active Start: February 28, 2025 End: February 28, 2025 Team Status: Inactive Member Role/Relationship Status Hans Callejas MD Primary care physician Active S tart: February 28, 2025 End: February 28, 2025 Sobia Sarah CNM Attending physician Active Start: February 28, 2025 End: February 28, 2025 Sobia Sarah CNM Referring Provider Active S tart: February 28, 2025 End: February 28, 2025 Team Status: Inactive Member Role/Relationship Status Hans Callejas MD Primary care physician Active S tart: March 30, 2025 End: March 30, 2025 Dr. Bertha Snyder DO Attending physician Active Start: March End: March 30, 2025 Scheduled Active and Recently Administ ered Medications (unrecognized section and content) Medication Order 10/23/2022 10/24/2022 10/25/2022 clindamycin iv piggyback 900 mg in D5W 50 mL (CLEOCIN) (COMPLETED) 900 mg, INTRAVENOUS, at 100 mL/hr, Administer over 30 Minutes, PRE-OP ONCE, 1 dose, On Fri10/25/22 at 0800, Orthopedic Cases - MRSA Negative or Low Risk - Penicillin Allergy PRE-OP ANTIBIOTIC ADMINISTER ONLY IN SURGICAL AREA - DO NOT ADMINSTER ON THE FLOOR, Please document the antimicrobial indication: Prophylaxis, Preprocedure 0820 (Given - Provid er: Arslan Bui APRN.POPULATION HEALTH COACH) Continuous Medication Order 10/23/2022 10/24/2022 10/25/2022 lactated [...] BE BASED ON THE PRIMARY CLINICAL RECORDS. [facility]. provides no warranty or guarantee of the accuracy or completeness of information in this document.
[2025-06-16 07:25] LABS: Hematocrit 41.3 % (37-47); Hemoglobin 13.9 g/dL (12.0-15.0); Immature Granulocytes Count 0.020 X10^3/uL (0.0-0.0); Mean Corp Hgb Conc 33.7 g/dL (32-36); Mean Corpuscular Volume 89.6 fL (81-99); Mean Platelet Vol. 9.4 fl (6.2-12.0); NRBC Flagged by Analyzer 0 % (0-5); Platelet Count 192 K/mm3 (150-450); RBC Distribution Width CV 11.5 % (11.6-14.6); RBC Distribution Width SD 37.3 fl (35.1-43.9); Red Blood Count 4.61 M/mm3 (4.2-5.4); White Blood Count 5.6 K/mm3 (4.4-11.0)
[2025-06-16 08:23] LABS: AST(SGOT) 17 U/L (<=31); Alanine Aminotransfer ALT/SGPT 13 U/L (<=34); Albumin, Serum 4.5 g/dL (3.5-5.0); Alkaline Phosphatase 32 U/L (35-104); Anion Gap 13 (5-15); BUN 13 mg/dL (4-19); BUN/Creat Ratio 17.2 RATIO (10-20); Calcium,Total 9.2 mg/dL (7.6-11.0); Carbon Dioxide 22.7 mmol/L (21.0-32.0); Chloride 103 mmol/L (98-108); Globulin 2.0 g/dL (2.2-4.2); Glucose 96 mg/dL (70-99); Iron 73 ug/dL (50-170); Iron Binding Capacity,Total 285 ug/dL (250-450); Iron Binding Capacity,Unsat 212 ug/dL (228-428); Potassium 3.7 mmol/L (3.3-5.1)
[2025-06-16 08:27] LABS: Ferritin 82 ng/mL (22-378); Vitamin B12 730 pg/mL (180-914); Vitamin D,25 Hydroxy 47.8 ng/mL (30-100)
[2025-06-23 02:07] LABS: VITAMIN B6 40.2 ug/L (3.4-65.2)
== END | disposition home or self-care (01) ==
LOC: LAB 06:43
PROVIDERS: PCP Family Medicine; Referring Provider Obstetrics & Gynecology; Visit Provider Obstetrics & Gynecology
DX: K29.40 Chronic atrophic gastritis without bleeding (principal); E61.1 Iron deficiency; Z13.29 Encounter for screening for other suspected endocrine disorder
CPT/HCPCS: 36415; 80053; 82306; 82607; 82728; 83540; 83550; 84207; 84443; 85025